=== PATIENT | female | born 1955 | race Caucasian/White ===

== ENCOUNTER → 2016-11-12 | Day surgery (SDC) | payer OTHER ==
[2016-11-10 14:34] VITALS: BMI 46.0
[~2016-11-12] VITALS: Ht 162.6 cm; Wt 122.7 kg
[~2016-11-12] MED LIST: AMLO-114 PO; ASPEC81 PO; ATOR-24 PO; ATOR-26 PO; CIPR-255 PO; CLR10 PO; GLC/500 PO; LIDOCAINE HCL 2% 2 ML VIAL (20MG/ML) ONE; LOSA50TA6 PO; LPR25 PO; OXYC-57 PO; PLV75 PO; PROPOFOL IV EMULSION 10 MG/ML 20 ML VIAL IV ONE; SODIUM CHLORIDE 0.9% 500ML 500 ML IV ONE
[2016-11-12 09:31] VITALS: Ht 162.6 cm; Wt 122.7 kg
--- NOTE | 2016-11-12 09:57 | Endo History and Physical ---
History & Physical Date of Service: Nov 12, 2016. Chief Complaint: SCREENING Referring Physician: DR. MELLO History of Present Illness screening Past Surgical History Hx Cardiac Surgery: No Hx Internal Defibrillator: No Hx Pacemaker: No Hx Abdominal Surgery: Yes (OVARIAN TUMOR AND FALLOPIAN TUBE REMOVED (BENIGN)) Hx of Implantable Prosthesis: No Hx Post-Op Nausea and Vomiting: No Hx Cancer Surgery: No Hx Thoracic Surgery: No Hx Orthopedic: No Hx Urinary Tract Surgery: No Social History Smoking Status: Never Smoker Hx Substance Use: No Hx Alcohol Use: Yes (OCCASIONALLY ON WEEKENDS) Allergies Coded Allergies: No Known Allergies (Unverified , 11/12/16) Current Medications Reported Home Medications Medications Dose Route/Sig Max Daily Dose Days Date Category Claritin (Loratadine) 10 Mg Tab 10 Mg PO QAM 11/10/16 Reported Lipitor (Atorvastatin Calcium) 40 Mg Tab 40 Mg PO QAM 11/10/16 Reported Cozaar (Losartan Potassium) 50 Mg Tab 50 Mg PO QAM 11/10/16 Reported Norvasc (Amlodipine Besylate) 10 Mg Tab 10 Mg PO QAM 11/10/16 Reported Glucophage (Metformin Hcl) 500 Mg Tab 2 Tab PO BID 11/10/16 Reported Vital Signs Weight (Kilograms): 122.73 Height (Feet): 5 Height (Inches): 4 Date Time Temp Pulse Resp B/P Pulse Ox O2 Delivery O2 Flow Rate FiO2 11/12/16 09:40 36.7 59 18 159/73 94 Room Air Physical Exam General Appearance: no apparent distress Respiratory/Chest: Auscultation: breath sounds normal Cardiovascular: Heart Auscultation: RRR Abdomen: Inspection & Palpation: soft Liver: non-tender Assessment and Plan stable for screening colonoscopy
--- NOTE | 2016-11-12 10:22 | Discharge Instructions ---
Endoscopy Patient Instructions Date / Procedure(s) Performed Nov 12, 2016. Colonoscopy Allergy Information Coded Allergies: No Known Allergies (Unverified , 11/12/16) Discharge Date / Findings Nov 12, 2016. colon polyps. Medication Instructions Stopped Medication(s): METFORMIN STOPPED THURSDAY Provider Instructions Activity Restrictions - No exercising or heavy lifting for 24 hours. - Do not drink alcohol the day of the procedure. - Do not drive a car or operate machinery until the day after the procedure. - Do not make any important decisions or sign important papers in 24 hours after the procedure. Following Day: - Return to full activity which may include returning to work/school. Diet Start your diet with liquids and light foods (jello, soup, juice, toast). Then eat your usual diet if not nauseated. Treatment For Common After Affects For mild abdominal pain, bloating, or excessive gas: - Rest - Eat lightly - Lie on right side Follow-Up Information Follow-up with DR. MELLO as scheduled Anesthesia Information What You Should Know You have had a procedure that required some medicine to reduce anxiety and discomfort. This treatment is called moderate sedation. After receiving the treatment, you may be sleepy, but you will be able to breathe on your own. The effects of the treatment may last for several hours. Follow these instructions along with Activity/Diet recommendations noted above: * Do NOT do anything where dizziness or clumsiness would be dangerous. * Rest quietly at home today, then you can be up and about tomorrow. * Have a responsible person stay with you the rest of today. * You may have had an I.V. today. If so, you may take the dressing off later today. Recommendations Call your doctor if: * Trouble breathing * Continuous vomiting for more than 24 hours * Temperature above 101 degrees * Severe abdominal pain or bloating * Pain not relieved by pain medicine ordered * There is increased drainage or redness from any incision * A large amount of rectal bleeding greater than 2-3 tablespoons. (If you had a polyp/s removed or have hemorrhoids, a small amount of blood - from the rectum is to be expected.) * You have any unanswered questions or concerns. IN THE EVENT OF A SERIOUS EMERGENCY, GO TO THE NEAREST EMERGENCY ROOM Your discharge instructions were prepared by provider Declan West. Patient Instructions Signature Page Nenita Fleming Patient (or Guardian) Signature/Date: I have read and understand the instructions given to me by my caregivers. Caregiver/RN/Doctor Signature/Date: The above-named patient and/or guardian has received patient instructions on this date. + Original Patient Signature Page (only) stays with chart. Please make copy for patient.
--- NOTE | 2016-11-12 10:37 | GI REPORT ---
Procedure Date: 11/12/2016 9:45 AM Procedure: Colonoscopy Indications: Screening for colorectal malignant neoplasm Medicines: See the Anesthesia note for documentation of the administered medications Complications: No immediate complications. Estimated Blood Loss: Estimated blood loss was minimal. Procedure: Pre-Anesthesia Assessment: - Prior to the procedure, a History and Physical was performed, and patient medications, allergies and sensitivities were reviewed. The patient's tolerance of previous anesthesia was reviewed. - The risks and benefits of the procedure and the sedation options and risks were discussed with the patient. All questions were answered and informed consent was obtained. - Patient identification and proposed procedure were verified prior to the procedure by the physician and the nurse. The procedure was verified in the pre-procedure area. - Pre-procedure physical examination revealed no contraindications to sedation. - After reviewing the risks and benefits, the patient was deemed in satisfactory condition to undergo the procedure. After I obtained informed consent, the scope was passed under direct vision. Throughout the procedure, the patient's blood pressure, pulse, and oxygen saturations were monitored continuously. The scope was introduced through the anus and advanced to the cecum, identified by appendiceal orifice and ileocecal valve. The colonoscopy was performed without difficulty. The patient tolerated the procedure well. The quality of the bowel preparation was good. Findings: The perianal and digital rectal examinations were normal. Two sessile polyps were found in the ascending colon. The polyps were 5 mm in size. These polyps were removed with a hot snare. Resection and retrieval were complete. Verification of patient identification for the specimen was done by the physician and nurse using the patient's name and medical record number. Estimated blood loss was minimal. A 10 mm polyp was found at 20 cm proximal to the anus. The polyp was semi-pedunculated. The polyp was removed with a hot snare. Resection and retrieval were complete. Verification of patient identification for the specimen was done by the physician and nurse using the patient's name and medical record number. Estimated blood loss: none. A few small-mouthed diverticula were found in the sigmoid colon. No additional abnormalities were found on retroflexion. Impression: - Two 5 mm polyps in the ascending colon, removed with a hot snare. Resected and retrieved. - One 10 mm polyp at 20 cm proximal to the anus, removed with a hot snare. Resected and retrieved. - Diverticulosis in the sigmoid colon. Recommendation: - Await pathology results. - Discharge patient to home. Declan West M.D. Declan West MD 11/12/2016 10:36:06 AM This report has been signed electronically. Note Initiated On: 11/12/2016 9:45 AM I attest to the content of the Intraoperative Record and orders documented therein, exceptions below
[2016-11-12 11:00] VITALS: BP 167/80; PULSE 63; O2SAT 93
--- NOTE | 2016-11-12 11:06 | Anesthesiology Progress Note ---
Anesthesia Post Op Note Date & Time Nov 12, 2016 at 11:05 Vital Signs Pain Intensity: 0 Vital Signs Past 12 Hours Date Time Temp Pulse Resp B/P Pulse Ox O2 Delivery O2 Flow Rate FiO2 11/12/16 11:00 63 18 167/80 93 Room Air 11/12/16 10:35 57 18 139/82 93 Room Air 11/12/16 10:20 65 16 134/66 95 Room Air 11/12/16 09:40 36.7 59 18 159/73 94 Room Air Notes Mental Status: alert / awake / arousable, participated in evaluation Pt Amnestic to Procedure: Yes Nausea / Vomiting: adequately controlled Pain: adequately controlled Airway Patency, RR, SpO2: stable & adequate BP & HR: stable & adequate Hydration State: stable & adequate Anesthetic Complications: no major complications apparent
== END | disposition home or self-care (01) ==
LOC: C.GI 09:02
PROVIDERS: ATTEND Internal Medicine Gastroenterology
DX: Z12.11 Encounter for screening for malignant neoplasm of colon (principal); C18.2 Malignant neoplasm of ascending colon; K57.30 Diverticulosis of large intestine without perforation or abscess without bleeding; Z90.79 Acquired absence of other genital organ(s)

== ENCOUNTER 2016-12-25 05:27 | Inpatient (IN) | payer OTHER ==
[2016-12-10 08:58] VITALS: BMI 48.0
--- NOTE | 2016-12-10 09:22 | PAT Medication Instructions ---
Service Date December 10, 2016. Current Home Medication List Amlodipine (Norvasc), 10 MG PO QAM Atorvastatin (Lipitor), 40 MG PO QAM Loratadine (Claritin), 10 MG PO QAM PRN for ALLERGIES Losartan Potassium (Cozaar), 50 MG PO QAM Metformin Hcl (Glucophage), 2 TAB PO QAM Medication Instructions For Your Scheduled Surgery - Hold the following medications 48 hours prior to surgery: Metformin Hcl (Glucophage), 2 TAB PO QAM - Hold the following medications the morning of surgery: Loratadine (Claritin), 10 MG PO QAM PRN for ALLERGIES Losartan Potassium (Cozaar), 50 MG PO QAM - Take the following medications the morning of surgery with a sip of water OTHERWISE NOTHING TO EAT OR DRINK AFTER MIDNIGHT: Amlodipine (Norvasc), 10 MG PO QAM Atorvastatin (Lipitor), 40 MG PO QAM If you have any questions please call us at [phone] or [phone] or [phone]
[2016-12-10 10:31] LABS: BASO % 0.1 %; BASO ABS # 0.01 K/uL (0-0.2); COMPLETE YES; EOS % 1.7 %; HEMATOCRIT 39.9 % (37-47); IG% 0.3 %; LYMPH % 24.2 %; LYMPH ABS # 1.83 K/uL (1.2-3.4); MEAN CELL VOLUME 87.3 fL (80-100); MEAN CORPUSCULAR HEMOGLOBIN 29.1 pg (25-34); MEAN CORPUSCULAR HGB CONC 33.3 g/dl (32-36); MEAN PLATELET VOLUME 10.2 fL (7.4-10.4); NEUT % 69.7 %; PLATELET COUNT 245 K/uL (130-400); RED BLOOD COUNT 4.57 M/uL (4.2-5.4); WHITE BLOOD COUNT 7.56 K/uL (4.8-10.8)
[2016-12-10 11:22] LABS: BUN/CREATININE RATIO 20.9 (10-20); CREATININE 0.65 mg/dl (0.60-1.20); POTASSIUM 4.1 mmol/L (3.5-5.1)
[2016-12-10 11:34] LABS: CALCIUM 9.4 mg/dl (8.5-10.1)
[~2016-12-25] VITALS: Ht 162.6 cm; Wt 120.0 kg
[2016-12-25] VITALS (25 sets, daily range): BP systolic 131–185; BP diastolic 55–96; PULSE 61–86; TEMP 36.5–36.9; O2SAT 88–95; BMI 48.0
[~2016-12-25 05:27] MED LIST changes: -ASPEC81 PO; -ATOR-26 PO; -CIPR-255 PO; -LIDOCAINE HCL 2% 2 ML VIAL (20MG/ML) ONE; -LPR25 PO; -OXYC-57 PO; -PLV75 PO; -PROPOFOL IV EMULSION 10 MG/ML 20 ML VIAL IV ONE; -SODIUM CHLORIDE 0.9% 500ML 500 ML IV ONE
[2016-12-25] MEDS ORDERED: LACTATED RINGER'S 1000ML 1,000 ML IV SCH (06:00)
--- NOTE | 2016-12-25 06:36 | History & Physical Bridge Note ---
H&P Re-Evaluation Bridge Note: I have examined the patient, reviewed the History & Physical and in the interval since the performance of the History & Physical I have noted the following changes of clinical significance: No changes noted at bedside all questions answered
[2016-12-25] MEDS ORDERED: NEOSTIGMINE METHYLSULFATE 5 MG/5 ML SYR ONE (06:40)
[2016-12-25] MEDS ORDERED: GLYCOPYRROLATE INJ 0.2 MG/ML VIAL ONE ×2 (06:40→08:24)
[2016-12-25] MEDS ORDERED: PROPOFOL IV EMULSION 10 MG/ML 20 ML VIAL IV ONE (06:40)
[2016-12-25] MEDS ORDERED: DEXAMETHASONE SOD INJ 4 MG/ML VIAL ONE (06:40)
[2016-12-25] MEDS ORDERED: FENTANYL CITRATE INJ 50 MCG/1 ML 2 ML VIAL ONE ×2 (06:40→08:01)
[2016-12-25] MEDS ORDERED: ROCURONIUM BROMIDE 10 MG/ML 5 ML VIAL ONE ×2 (06:40→08:24)
[2016-12-25] MEDS ORDERED: LIDOCAINE HCL 2% 2 ML VIAL (20MG/ML) ONE (06:40)
[2016-12-25] MEDS ORDERED: ONDANSETRON INJ 2 MG/ML 2 ML VIAL ONE ×2 (06:40→10:17)
[2016-12-25] MEDS ORDERED: MIDAZOLAM HCL 1 MG/ML 2ML VIAL ONE ×2 (06:40→06:46)
[2016-12-25] MEDS ORDERED: BUPIVACAINE 0.5 % 5 MG/1 ML MPF 30ML VIAL ONE (06:52)
[2016-12-25] MEDS ORDERED: CEFOXITIN SOD 1 GM VIAL ONE (07:42)
[2016-12-25] MEDS ORDERED: LACTATED RINGER'S 1000ML 1,000 ML IV PRN (07:47)
[2016-12-25] MEDS ORDERED: SODIUM CHLORIDE 0.9% 1000ML 1,000 ML IV PRN (07:50)
[2016-12-25] MEDS ORDERED: LACTATED RINGER'S 1000ML 500 ML IV PRN (07:50)
[2016-12-25] MEDS ORDERED: DiphenhydrAMINE HCL 50 MG/ML VIAL IV PRN (08:00)
[2016-12-25] MEDS ORDERED: NO NARCOTICS OR SEDATIVES SCH (08:00)
[2016-12-25] MEDS ORDERED: NALBUPHINE HCL INJ 10 MG/ML AMP IV PRN (08:00)
[2016-12-25] MEDS ORDERED: FENTANYL CITRATE INJ 50 MCG/1 ML 2 ML VIAL IV PRN (08:00)
[2016-12-25] MEDS ORDERED: MoRPHine SULFATE 2 MG/ML CARP IV PRN (08:00)
[2016-12-25] MEDS ORDERED: NALOXONE HCL INJ 0.4 MG/1 ML VIAL/CARP IV PRN (08:00)
[2016-12-25] MEDS ORDERED: HYDROmorphone INJ 1 MG/ML SYR IV PRN ×4 (08:00→16:30)
[2016-12-25] MEDS ORDERED: ONDANSETRON INJ 2 MG/ML 2 ML VIAL IV PRN ×2 (08:00)
[2016-12-25] MEDS ORDERED: EpHEDrine SULFATE INJ 50 MG/ML AMP IV PRN (08:00)
[2016-12-25] MEDS ORDERED: BUPIVACAINE 0.25% 30 ML VIAL ONE (08:08)
[2016-12-25] MEDS ORDERED: SODIUM CHLORIDE 0.9% INJ 10 ML VIAL ONE (08:08)
[2016-12-25] MEDS ORDERED: SUCCINYLCHOLINE CHLORIDE 20 MG/ML 10 ML VIAL IV ONE (08:24)
[2016-12-25] MEDS ORDERED: DEXTROSE 50% 50 ML SYR IV PRN (10:45)
[2016-12-25] MEDS ORDERED: GLUCAGON FOR INJ 1 MG VIAL SQ PRN (10:45)
[2016-12-25] MEDS ORDERED: GLUCOSE 10 TABS/TUBE PO PRN (10:45)
[2016-12-25] MEDS ORDERED: GLUCOSE 40% GEL 15 GM TUBE PO PRN (10:45)
--- NOTE | 2016-12-25 10:48 | [facility] Post Operative Brief Note ---
Immediate Operative Summary Operative Date Dec 25, 2016. Pre-Operative Diagnosis Colon Carcinoma Post-Operative Diagnosis Colon Carcinoma dense abdominal adhesions Procedure(s) Performed Laprascopic lysis of dense abdominal adhesions,(karen 1/3 of op time) open sigmoid colon resection Surgeon Dr. Núñez Industrial Engineering Technician Surgeon(s) Mode Stanford Estimated Blood Loss 150 ml Findings dense abdominal adhesions resected tattooed area and grossly by pathologist consistent with polypectomy site Specimens Permanent Specimen A: Omentum Drains 19 claudia per stab cul de sac, 5/8 inch mesfin sub cut
[2016-12-25] MEDS: FENTANYL 2.5MCG/ML BUPIV 0.0625% 100ML BAG EPI PRN ×2 (11:00→12:19)
--- NOTE | 2016-12-25 11:16 | OPERATIVE REPORT ---
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 POSTOPERATIVE DIAGNOSIS: Same with dense abdominal adhesions. PROCEDURE: Laparoscopy, lysis of dense abdominal adhesions, approximately 1/3 of the operative time, sigmoid colon resection with primary side-to-end anastomosis. SURGEON: Dr. Núñez. NITRO MAN: Lawson Aburto PA-C. OPERATION AND FINDINGS: SUMMARY: The patient was brought into the operating room theater. The abdomen was prepped with Betadine scrubbing solution and properly draped. Woody catheter had been inserted. We made a small incision supraumbilically sufficient enough to place a Veress needle followed by a 5 mm trocar. At this point, we inspected the area when we got into the belly and were met with significant adhesions to the anterior abdominal wall. These were mostly omental adhesions. There were a few areas that we could work our way through fine adhesions. Finally we were able to place two 5 mm right flank, right lower quadrant, right upper quadrant ports and a 5 mm left lower quadrant port and maneuvered and freed all these adhesions were mostly omental adhesions to the anterior abdominal wall, also significantly down the pelvis. Once we had freed this up, we could see a significant epiploica of the sigmoid colon attached to the area just as described by Dr. West about 20 cm at the pelvic brim. I felt we had enough mobility in this area to do a primary anastomosis by taking down the white line of Toldt on the left side sufficient enough. At this point, I elected to just go ahead and do an open procedure through a midline incision due to the significant adhesions that were still plastered down in the pelvic area. Once we entered a Bookwalter was inserted. We took down the omental adhesion, checked the anterior abdominal wall where we had been before. The omentum itself a few areas where we ligated with 2-0 silk some minor bleeders. We packed off the small intestine, identified the sigmoid colon, again incising the white line of Toldt sufficient enough that we had enough mobility of the descending colon. We then divided that area right at the distal descending colon with a ISAAC stapler and followed and scored the mesentery went down to the inferior mesenteric artery where we pretty much took it off the takeoff of the aorta, doubly ligating with 2-0 silk suture. Dissection distally was in Waldeyer's fascia. We took out both, incised peritoneum both laterally on both areas, identified the left ureter without any problem. We were well away from the right ureter. We took our distal dissection, it involved the tattooed area right at the peritoneal reflection, so we were well away from the line of tattooed that was 20 cm. At this point, we divided the mesentery to the distal sigmoid rectal area and ligated with 2-0 silk. I removed the specimen, I opened it, I could see the tattooed area, there was obviously no residual polyp, but there may have been an area that was felt to be compatible with the line. I wanted to make sure, I sent it to the pathologist and they palpated that area consisting with some induration. There were no other tattooed areas. At this point, the proximal staple line was oversewn with 3-0 silk suture. I did a side to end anastomosis with 3-0 silk outer layer, 3-0 chromic inner layer that could accommodate a thumb size at the end of procedure with patency. We irrigated the pelvic area, placed a #19 Nico through one of the stab wounds in the right side and positioned in the abdomen. I positioned the NG tube in about 55 cm in the stomach. The abdomen was then closed with #1 PDS [id number] suture, also a buried retention suture #2 Vicryl. Subcutaneous tissue which was about 4-5 inches deep was drained with a 5/8" Juan Daniel drain and approximated loosely with 2-0 Dexon and ebony for skin edges. Dressing was applied. The patient tolerated the procedure was tolerated well by the patient. Estimated blood loss approximately 150 mL. The patient was taken to recovery room in good condition. I attest to the content of the Intraoperative Record and any orders documented therein. Any exceptions are noted below. [facility]
[2016-12-25 11:31] LABS: PROTHROMBIN TIME (PATIENT) 10.6 SECONDS (9.0-12.0)
--- NOTE | 2016-12-25 11:39 | Anesthesiology Progress Note ---
Anesthesia Post Op Note Date & Time Dec 25, 2016 at 11:38 Vital Signs Pain Intensity: 1 Vital Signs Past 12 Hours Date Time Temp Pulse Resp B/P (MAP) Pulse Ox O2 Delivery O2 Flow Rate FiO2 12/25/16 11:24 167/72 12/25/16 11:23 36.5 12/25/16 11:18 67 19 92 12/25/16 11:18 67 19 12/25/16 11:17 166/70 12/25/16 11:15 176/74 12/25/16 11:13 66 16 12/25/16 11:13 66 16 94 12/25/16 11:08 66 18 94 12/25/16 11:08 67 18 12/25/16 11:07 65 17 12/25/16 11:07 65 17 174/78 94 12/25/16 11:04 164/80 12/25/16 11:02 66 18 12/25/16 11:02 66 18 93 12/25/16 11:00 Nasal Cannula 4 12/25/16 10:50 70 16 160/85 94 Mask 10 12/25/16 10:42 36.1 75 16 166/81 96 Mask 10 12/25/16 05:51 36.7 61 18 155/67 92 Room Air Notes Mental Status: alert / awake / arousable, participated in evaluation Pt Amnestic to Procedure: Yes Nausea / Vomiting: adequately controlled Pain: adequately controlled Airway Patency, RR, SpO2: stable & adequate BP & HR: stable & adequate Hydration State: stable & adequate Anesthetic Complications: no major complications apparent Pt doing very well. Only complaint is sore throat. No abdominal pain, so epidural seems to be working well.
[2016-12-25] MEDS ORDERED: INSULIN ASPART 100 UNITS/ML 3 ML PEN SC SCH (12:00)
[2016-12-25] MEDS ORDERED: NURSING VERBAL MED ORDER ONE ×3 (13:00→14:45)
[2016-12-25] MEDS ORDERED: NALOXONE HCL 0.4 MG/1 ML VIAL/CARP IV ONE (13:00)
[2016-12-25 13:07] LABS: HEMATOCRIT 41.9 % (37-47); MEAN CELL VOLUME 88.6 fL (80-100); MEAN CORPUSCULAR HEMOGLOBIN 29.8 pg (25-34); MEAN PLATELET VOLUME 9.9 fL (7.4-10.4); PLATELET COUNT 256 K/uL (130-400); RED BLOOD COUNT 4.73 M/uL (4.2-5.4); WHITE BLOOD COUNT 15.05 K/uL (4.8-10.8)
[2016-12-25] MEDS: SODIUM CHLORIDE 0.9% 1000ML 1,000 ML IV SCH ×2 (13:15→22:39)
[2016-12-25 13:16] LABS: MEAN CORPUSCULAR HGB CONC 33.7 g/dl (32-36)
--- NOTE | 2016-12-25 13:28 | DIAGNOSTIC IMAGING REPORT ---
CT OF THE HEAD WITHOUT CONTRAST CLINICAL HISTORY: Stroke alert. COMPARISON STUDY: Head CT January 01, 2016. TECHNIQUE: Helical axial images of the head were obtained without IV contrast. Automated exposure control was utilized for the study. FINDINGS: This exam is mildly compromised by motion artifact. No acute intracranial hemorrhage, midline shift or mass effect is present. A 1.1 cm hypodensity within the right centrum semiovale is noted. Basilar cisterns are patent. There are no extra axial collections. There is extensive intracranial vascular calcification. There are no CT findings to suggest acute dural sinus thrombosis or acute territorial infarct. Nasogastric tube is incidentally noted. There are no significant calvarial abnormalities. IMPRESSION: 1. No acute intracranial hemorrhage or mass effect. 2. 1.1 cm hypodensity within the right centrum semiovale. Although age indeterminate, this is likely subacute to chronic. 3. Study mildly compromised by motion artifact. Electronically signed by: Geraldo Domínguez M.D. 12/25/2016 1:27 PM Dictated Date/Time: 12/25/2016 1:23 PM
--- NOTE | 2016-12-25 13:31 | Medical Consult ---
Consultation Note Date of Service Dec 25, 2016. Consultation Note DATE OF ADMISSION : 12/25/16 DATE OF CONSULT: 12/25/16 REASON FOR CONSULT: Post operative left sided numbness/weakness / Stroke alert HPI This is a 61 year old F with history of adenocarcinoma of sigmoid colon polyp, HTN, DM-2, Dyslipidemia, was admitted under surgical service for elective colon resection. She underwent Laparoscopy with lysis of dense adhesions, resection of sigmoid colon with primary side-end resection by Dr Núñez today. During post operative evaluation, RN noted left sided numbness- facial/upper and lower extremities. Code purple/stroke alert was called with worsening of symptoms. We were consulted at this point for further evaluation for stroke. ICU team present by bedside. Patient lethargic, disoriented, following simple commands. Able to move right side, but no movement on left side. NIH stroke scale - 17. Patient does have prior hx of TIA per records, but not on Aspirin prior to admission. Recent outpatient notes- 10/27/16 reviewed- no mention of TIA or stroke in past. Per stroke protocol- stat CT head, Blood work- CBC, CMP ordered and patient will be transferred to ICU. Not a TPA candidate as post operative status. PAST MEDICAL /SURGICAL HISTORY: 1. HTN 2. DM-2, NIDDM 3. Dyslipidemia 4. Hx of TIA 5. Morbid obesity 6. Ovarian tumor removal - benign FAMILY HISTORY Non contributory SOCIAL HISTORY No history of alcohol abuse, smoking ALLERGIES Bee venom- Edema Lisinopril - Cough MEDICATIONS: Atorvastatin 40 mg, Losartan 50 mg, Metformin 1000 mg bid, Loratadine 10 mg , Amlodipine 10 mg ROS: Limited and unable to do full review of systems as patient going through stroke evaluation PHYSICAL EXAMINATION AZALEA;S: Reviewed GENERAL: Drowsy, follows simple commands, Morbidly obese HEENT: Mild facial droop, left sided NECK: Short neck Lungs: AEBE decreased, no wheezing Heart: s1 s2 normal Abdomen: S/P Surgery Neurological: Drowsy, follows simple commands- Left side - face/UE/LE- decreased sensation, Power- 0/5, Left sided facial droop LABS: Pre operative 12/10/16- reviewed ASSESSMENT AND PLAN: ACUTE STROKE VS TIA Post operative status. S/P Laparoscopic lysis of dense adhesions, sigmoid colon resection for side - end anastomosis by Dr Ramos. Stroke alert was called as RN noted left sided numbness during post operative evaluation--> progressed to left sided motor weakness. -NIH Stroke scale- 17. Not a TPA candidate due to post operative status -Per stroke protocol- Stat CT scan ordered. CBC, CMP, EKG ordered. -Will follow up results- May need to consider transfer to [facility] to consider endo vascular intervention as not a TPA candidate -Pre operative risk factors noted- Hx of TIA, HTN, DM, Dyslipidemia, Morbid obesity. Not on Aspirin prior to admission, unclear of the reasons. HTN- Permissive hypertension with acute stroke -Hold home - amlodipine, losartan DM-2, NIDDM -Hold metformin -ISS, Accuchecks DYSLIPIDEMIA -On atorvastatin 40 mg- continue after speech evaluation MORBID OBESITY DVT PROPHYLAXIS Post operative status DISPOSITION Transfer to ICU stat and may consider transfer to [facility] for endovascular intervention for stroke according to Imaging results. Discussed with Director Of Sales And Marketing, [employer] Machine Setter by bedside,.
--- NOTE | 2016-12-25 13:31 | DIAGNOSTIC IMAGING REPORT ---
CT NECK ANGIO WITH CONTRAST CLINICAL HISTORY: ACUTE STROKE COMPARISON STUDY: No previous studies for comparison. TECHNIQUE: CT angiography was performed from the aortic arch to the skull base. MIP imaging was performed. The patient was scanned in a dynamic helical fashion during intravenous administration of 118 cc of Optiray 320. CT DOSE: 2386.21 mGy.cm Technique: CT angiogram of the carotid and vertebral arteries was obtained using intravenous contrast and 3-D reconstruction. NASCET criteria was utilized. Findings: There is indwelling nasogastric tube. The visualized portions lung apices reveal dependent airspace opacities, possibly atelectatic. There is no evidence of common carotid artery stenosis. There is no evidence of hemodynamic significant stenosis the level of the carotid bifurcation. There is moderate to severe multifocal narrowing of the high cervical internal carotid and carotid siphon and cavernous carotid. There is no evidence of common carotid artery stenosis. There is no evidence of bifurcation stenosis. There are mild to moderate atheromatous changes at the level of the left cavernous carotid. There is a severe stenosis of the distal right vertebral. There is a moderate to severe stenosis of the distal left vertebral. There is no evidence of hemodynamically significant basilar artery stenosis. IMPRESSION: 1. No evidence of carotid bifurcation stenosis 2. Moderate to severe multifocal narrowing of the high cervical right internal carotid and right carotid siphon right cavernous carotid 3. Mild to moderate atheromatous narrowing of the left cavernous carotid 4. Severe stenosis of the distal right vertebral. Moderate to severe stenosis of the distal left vertebral. Electronically signed by: David Pittman M.D. 12/25/2016 1:30 PM Dictated Date/Time: 12/25/2016 1:22 PM
[2016-12-25 13:46] LABS: BUN/CREATININE RATIO 13.1 (10-20); CALCIUM 8.5 mg/dl (8.5-10.1); CREATININE 0.81 mg/dl (0.60-1.20)
[2016-12-25 13:54] LABS: POTASSIUM 3.9 mmol/L (3.5-5.1)
[2016-12-25 13:55] LABS: MAGNESIUM 2.3 mg/dl (1.8-2.4); PHOSPHORUS 4.1 mg/dl (2.5-4.9)
[2016-12-25] MEDS: CEFOXITIN IV 2,000 MG in DEXTROSE 5% 50ML 50 ML IV SCH ×2 (14:00→20:07)
--- NOTE | 2016-12-25 14:22 | DIAGNOSTIC IMAGING REPORT ---
CTA ANGIOGRAPHY OF THE HEAD CLINICAL HISTORY: STROKE ALERT COMPARISON STUDY: Head CT January 01, 2016. TECHNIQUE: Helical axial images of the head were obtained following uneventful intravenous administration of 118 cc of Optiray 320. FINDINGS: No acute intracranial hemorrhage, midline shift or mass effect is present. Ventricular system is unremarkable. There is severe stenosis of the petrous and cavernous portion of the right internal carotid artery with extensive plaque. There is occlusion of the supraclinoid right ICA with distal reconstitution. The right MCA and anterior cerebral arteries are patent. No additional sites of vessel occlusion are present. There is severe stenosis of the proximal intracranial portion of the right vertebral artery and moderate stenosis of the proximal intracranial portion of the left vertebral artery. No aneurysm is identified. Posterior circulation is otherwise intact. IMPRESSION: 1. Short segment occlusion of the supraclinoid right ICA with distal reconstitution. This occlusion is age indeterminate although favor a chronic finding. Diminutive petrous and cavernous portions of the right internal carotid artery with multifocal severe stenosis which suggests a chronic finding. 2. Severe stenosis of the proximal intracranial portion of the right vertebral artery with moderate stenosis of the proximal intracranial of the left vertebral artery. Electronically signed by: Geraldo Domínguez M.D. 12/25/2016 2:20 PM Dictated Date/Time: 12/25/2016 1:40 PM
--- NOTE | 2016-12-25 16:10 | Progress Note ---
Progress Note Date of Service Dec 25, 2016. Progress Note POD # 0 from open sigmoid colectomy by Dr. Núñez. I received a call from a PACU nurse just after the pt had arrived on the floor from the PACU. She told me that the floor nurse noted the pt to have numbness of her L leg. I told her that this was to be expected since the pt had a low thoracic epidural placed pre -op and dosed at the end of the case for post-op analgesia. I told her to have the floor nurse call me if she had further concerns. I then received a call several minutes later from the floor nurse. She told me that the pt was having numbness and weakness of her L arm and leg and numbness of the L side of her face. I told her that if this was the case, she needed to call a Stroke Alert right away and that I would be up AILYN. Of note, the pt had a TIA in 12/2015 which presented w/ L-sided symptoms. At that time, she was started on a statin and anti-hypertensive agent but no anti-platelet agent. Also of note, the pt was a little groggy in PACU but I noted no facial droop and the pt was moving all 4 extremities per PACU nurse. I immediately went to see the pt and noted her to be groggy but responsive and following commands. She had a L facial droop and no motor function of her L arm or leg. I immediately told the nurse to call a Stroke Alert. They did, as well as a Code Purple which they said had to be called as well. The pt's said that this was similar to her TIA a year ago. I gave report to the radiator mechanic and neurologist when they arrived, as well as to Dr. Núñez's PA. They were sending her for a stat non- contrast head CT and a CTA. After that was completed, I went to see the pt in the ICU. She was awake and alert, with her . They said that her symptoms resolved by the time she got to the CT scanner. I found her to no longer have a facial droop and to have normal motor function in all 4 extremities. She was then going to be sent for MRI. I unfortunately had to remove her epidural catheter because I don't know if it's MRI compatible (there is no mention of MRI compatibility on the packaging but it does have some metal component to increase its rigidity), and because she may be receiving some anti-platelet agent or anticoagulant at some point soon. She had zero abdominal pain when I removed it with the tip intact.
[2016-12-25] MEDS: ACETAMINOPHEN IV 100 ML IV PRN (16:40)
--- NOTE | 2016-12-25 17:13 | DIAGNOSTIC IMAGING REPORT ---
ORBIT RADIOGRAPHS 3 VIEWS HISTORY: Pre-MRI pre-MRI screening. COMPARISON: None. FINDINGS: There are no radiopaque foreign bodies identified within the orbits. IMPRESSION: No radiopaque foreign bodies identified within the orbits. Electronically signed by: Brenton Jeffrey M.D. 12/25/2016 5:12 PM Dictated Date/Time: 12/25/2016 5:10 PM
--- NOTE | 2016-12-25 18:01 | DIAGNOSTIC IMAGING REPORT ---
Brain MRI WITHOUT CONTRAST HISTORY: Mental status change stroke symptoms. TECHNIQUE: Multiplanar multisequence MRI of the brain was performed without the use of contrast. COMPARISON STUDY: CT of the brain same date. CT brain angiography same date. FINDINGS: No evidence for acute infarction based on diffusion-weighted images. 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 Moderate chronic small vessel change involving the periventricular and deep white matter regions. Internal artery canals are symmetric. Sella and parasellar region is unremarkable. IMPRESSION: 1. No evidence for an acute ischemic insult. 2. At least one old periventricular infarct with moderate chronic small vessel change throughout both cerebral hemispheres. Electronically signed by: Brenton Jeffrey M.D. 12/25/2016 6:00 PM Dictated Date/Time: 12/25/2016 5:57 PM
[2016-12-25] MEDS: INSULIN ASPART 100 UNITS/ML 3 ML PEN SC SCH (18:47)
[2016-12-25] MEDS ORDERED: LABETALOL HCL IV 5 MG/ML 20ML IV STA ×3 (19:26→22:35)
--- NOTE | 2016-12-25 19:36 | Critical Care Consultation ---
Critical Care Consultation Date of Consultation: Dec 25, 2016. Attending Physician: Terrence Núñez M.D. Reason for Consultation: Acute neuro deficits status post hemicolectomy secondary to colon cancer History of Present Illness Patient is a 61-year-old female who underwent a sigmoid colon resection with primary signs and anastomosis with Dr. Delgado. She has a significant past medical history for TIAs most recently back in 2016, hypertension, non-insulin- dependent diabetes mellitus, dyslipidemia, morbid obesity, ovarian tumor removal (benign). Upon arrival in the medical surgical floor the patient was noted to have a acute facial droop, and left upper extremity and lower extremity flaccid paralysis as well as difficulty speaking. A code purple was called and they presented to the patient's bedside. Initial stroke score was 15 , she would not be a candidate for systemic TPA given her recent major surgery. At that time she had flaccid paralysis of the left upper and lower extremities , dysarthria, complete extinction. She was taken for an emergent noncontrasted scan of the head which did not reveal acute hemorrhage. She underwent a CTA of the head and neck, which were reviewed with radiology. She has a significant on the right vertebral artery as well as the right carotid artery. An MRI was undertaken finding of which did not reveal any acute ischemic injury. Approximately 30 minutes after onset of the patient's neuro symptoms had completely resolved. Additional history from the patient's reports that she's had 2 similar episodes where she apparently had a very dense focal neuro deficit of the left side which resolved spontaneously. I reviewed the operative notes, the patient had a rather uneventful course and appeared to not become hypotensive while in the operating room. Upon my arrival in the medical surgical floor the patient's blood pressure was 140 systolic and she was not profoundly hypotensive. When I arrived back in the NICU and the patient's neuro deficits had resolved her systolic blood pressure was in the 180s. Prior to the patient's MRI she had her epidural catheter removed by anesthesia. Past Medical/Surgical History Please see above Family History Patient reports no known family medical history. Social History Smoking Status: Never Smoker Marital Status: Housing Status: lives with family Occupation Status: employed Allergies Coded Allergies: BEE STING (Verified Allergy, Unknown, SWELLING - LOCALIZED AT STING AREA, 12/25/16) NO KNOWN DRUG ALLERGIES (Verified Allergy, Unknown, , 12/25/16) Home Medications Scheduled Amlodipine (Norvasc), 10 MG PO QAM Atorvastatin (Lipitor), 40 MG PO QAM Losartan Potassium (Cozaar), 50 MG PO QAM Metformin Hcl (Glucophage), 2 TAB PO QAM Scheduled PRN Loratadine (Claritin), 10 MG PO QAM PRN for ALLERGIES Current Inpatient Medications Current Inpatient Medications Medications (Trade) Dose Ordered Sig/Naila Route Start Time Stop Time Status Last Admin Dose Admin Sodium Chloride 1,000 ml @ 150 mls/hr Q6H40M IV 12/25/16 12:30 01/24/17 10:36 12/25/16 13:15 150 MLS/HR Ondansetron HCl (Zofran Inj) 4 mg Q6H PRN IV 12/25/16 10:45 01/24/17 10:44 Future Hold Heparin Sodium (Porcine) (Heparin Sq 5000 Unit/0.5ml) 5,000 unit Q8@0600,1400,2200 SQ 12/25/16 20:00 01/24/17 19:59 Glucose (Glucose 40% Gel) 15-30 GRAMS 15 GRAMS... UD PRN PO 12/25/16 10:45 01/24/17 10:44 Glucose (Glucose Chew Tab) 4-8 Tablets 4 Tabl... UD PRN PO 12/25/16 10:45 01/24/17 10:44 Dextrose (Dextrose 50% 50ML Syringe) 25-50ML OF 50% DW IV FOR... UD PRN IV 12/25/16 10:45 01/24/17 10:44 Glucagon (Glucagon Inj) 1 mg UD PRN SQ 12/25/16 10:45 01/24/17 10:44 Pantoprazole Sodium 40 mg/ Syringe 10 ml @ 5 mls/min DAILY@11 IV 12/26/16 11:00 01/25/17 10:59 Cefoxitin Sodium 2000 mg/Dextrose 60 ml @ 100 mls/hr Q6H IV 12/25/16 14:00 12/26/16 02:35 12/25/16 14:00 100 MLS/HR Insulin Aspart (novoLOG ASPART) SLIDING SCALE If C... Q6 SC 12/25/16 18:00 01/24/17 17:59 12/25/16 18:47 2 UNITS Acetaminophen 100 ml @ 400 mls/hr Q8H PRN IV 12/25/16 16:30 01/24/17 16:29 12/25/16 16:40 400 MLS/HR Hydromorphone HCl (Dilaudid Inj) 0.5 mg Q6H PRN IV 12/25/16 16:30 01/08/17 16:29 12/25/16 18:52 0.5 MG Hydromorphone HCl (Dilaudid Inj) 1 mg Q6H PRN IV 12/25/16 16:30 01/08/17 16:29 Review of Systems Unable to obtain due to patient condition Physical Exam Date Time Temp Pulse Resp B/P (MAP) Pulse Ox O2 Delivery O2 Flow Rate FiO2 12/25/16 18:02 86 22 185/83 92 12/25/16 16:32 75 19 165/73 95 12/25/16 16:02 76 22 174/75 94 12/25/16 16:00 Mask 4.0 12/25/16 15:32 78 18 167/76 94 12/25/16 15:02 74 23 154/72 95 12/25/16 14:17 75 21 157/73 (101) 91 Nasal Cannula 4.0 12/25/16 14:02 75 22 160/72 (101) 91 Nasal Cannula 4.0 12/25/16 13:47 36.9 72 20 170/74 (106) 91 Nasal Cannula 4.0 12/25/16 13:32 75 19 142/55 (84) 92 Nasal Cannula 4.0 12/25/16 13:26 78 15 131/59 (83) 94 Nasal Cannula 4.0 12/25/16 13:21 36.5 68 16 95 3.0 12/25/16 12:20 95 Nasal Cannula 3.0 12/25/16 12:20 36.5 68 16 144/78 (100) 95 Nasal Cannula 3.0 12/25/16 11:57 155/74 12/25/16 11:56 67 15 94 12/25/16 11:56 67 15 12/25/16 11:55 69 20 93 12/25/16 11:55 69 20 12/25/16 11:53 133/59 12/25/16 11:50 68 18 93 12/25/16 11:50 68 18 12/25/16 11:48 154/63 12/25/16 11:45 68 21 93 12/25/16 11:45 67 21 12/25/16 11:42 145/64 12/25/16 11:40 67 19 90 12/25/16 11:40 68 19 12/25/16 11:38 146/63 12/25/16 11:35 68 17 12/25/16 11:35 69 17 92 12/25/16 11:33 161/62 12/25/16 11:30 68 18 12/25/16 11:30 68 18 92 12/25/16 11:28 160/65 12/25/16 11:25 68 16 12/25/16 11:25 65 16 90 12/25/16 11:24 167/72 12/25/16 11:23 36.5 12/25/16 11:18 67 19 92 12/25/16 11:18 67 19 12/25/16 11:17 166/70 12/25/16 11:15 176/74 12/25/16 11:13 66 16 12/25/16 11:13 66 16 94 12/25/16 11:08 66 18 94 12/25/16 11:08 67 18 12/25/16 11:07 65 17 12/25/16 11:07 65 17 174/78 94 12/25/16 11:04 164/80 12/25/16 11:02 66 18 12/25/16 11:02 66 18 93 12/25/16 11:00 Nasal Cannula 4 12/25/16 10:50 70 16 160/85 94 Mask 10 12/25/16 10:42 36.1 75 16 166/81 96 Mask 10 12/25/16 05:51 36.7 61 18 155/67 92 Room Air Head: normocephalic, atraumatic Eyes: sclerae normal Neck: supple Respiratory: breath sounds normal, clear to auscultation Cardiovasular: regular rate/rhythm, normal S1S2 Abdomen: other (surgical dressing intact, no shadowing) Genitourinary - Female: other Upper Extremities: other (flaccid paralysis of the left upper extremity) Lower Extremities: other (flaccid paralysis of the lower extremity) Neuro: alert, other (answering questions appropriately) Laboratory Results Last 24 Hours Test 12/25/16 05:48 6/8/17 06:10 12/25/16 10:55 12/25/16 11:12 Bedside Glucose 125 mg/dl 147 mg/dl Carcinoembryonic Antigen 0.5 ng/ml Prothrombin Time 10.6 SECONDS Prothromb Time International Ratio 1.0 Activated Partial Thromboplast Time 24.8 SECONDS Partial Thromboplastin Ratio 1.0 Test 12/25/16 12:25 12/25/16 12:52 12/25/16 12:55 12/25/16 18:03 White Blood Count 15.05 K/uL Red Blood Count 4.73 M/uL Hemoglobin 14.1 g/dL Hematocrit 41.9 % Mean Corpuscular Volume 88.6 fL Mean Corpuscular Hemoglobin 29.8 pg Mean Corpuscular Hemoglobin Concent 33.7 g/dl RDW Standard Deviation 44.0 fL RDW Coefficient of Variation 13.4 % Platelet Count 256 K/uL Mean Platelet Volume 9.9 fL Sodium Level 141 mmol/L Potassium Level 3.9 mmol/L Chloride Level 106 mmol/L Carbon Dioxide Level 25 mmol/L Anion Gap 10.0 mmol/L Blood Urea Nitrogen 11 mg/dl Creatinine 0.81 mg/dl Est Creatinine Clear Calc Drug Dose 94.9 ml/min Estimated GFR () 90.2 Estimated GFR (Non- 77.8 BUN/Creatinine Ratio 13.1 Random Glucose 175 mg/dl Lactic Acid Level 1.0 mmol/L Calcium Level 8.5 mg/dl Phosphorus Level 4.1 mg/dl Magnesium Level 2.3 mg/dl Total Bilirubin 0.7 mg/dl Aspartate Amino Transf (AST/SGOT) 17 U/L Alanine Aminotransferase (ALT/SGPT) 27 U/L Alkaline Phosphatase 98 U/L Total Protein 7.8 gm/dl Albumin 3.8 gm/dl Globulin 4.0 gm/dl Albumin/Globulin Ratio 1.0 Bedside Glucose 159 mg/dl 198 mg/dl Diagnostic Results I have reviewed the radiology reports for the CT head, CTA of the head and neck , brain MRI, and orbit radiograph. Assessment & Plan (1) Internal carotid artery stenosis (2) Intracranial carotid stenosis, bilateral (3) Vertebral artery stenosis, symptomatic, without infarction (4) TIA (transient ischemic attack) (5) Hypertension (6) Colon polyp Reason Critically Ill: Possible acute CVA which would require intravascular clot retrieval PLAN: Neuro: Allow permissive hypertension, in setting of having a normal MRI I would keep blood pressures between 140-160 to decrease incidence of bleeding across to anastomose E site Resp: Stable CV: Hypertension this will need to be followed up with as an outpatient, at this point labetalol when necessary Fluids/Renal: Normal saline 150 an hour ID: Cefoxitin's preoperative antibiotics. We will stop after 3 doses GI/Nutrition: Nothing by mouth Heme: Stable Endocrine: Will require mild insulin coverage I have personally spent 50 minutes of critical care time in the direct management of this patient. This is a life/limb threatening event. This includes time spent evaluating patient, direct bedside care, chart review, placing orders, interpretation of diagnostic studies, discussion with consultants, patient, and family members, as well as other required patient management activities. This time is exclusive of all separately billable procedures, and teaching time and separate from and in addition to any other critical care service time.
[2016-12-25] MEDS: HEPARIN SOD 5000 UNIT/0.5 ML CARP SQ SCH (20:09)
[2016-12-26] VITALS (20 sets, daily range): BP systolic 109–177; BP diastolic 61–79; PULSE 62–81; TEMP 36.8–37.1; O2SAT 91–95; Ht 162.6 cm; Wt 120.0 kg
[2016-12-26] MEDS ORDERED: LABETALOL HCL IV 5 MG/ML 20ML IV STA (00:05)
[2016-12-26] MEDS: INSULIN ASPART 100 UNITS/ML 3 ML PEN SC SCH ×5 (00:34→23:48)
[2016-12-26] MEDS: LABETALOL HCL IV 5 MG/ML 20ML IV PRN ×2 (01:24→03:05)
[2016-12-26] MEDS: CEFOXITIN IV 2,000 MG in DEXTROSE 5% 50ML 50 ML IV SCH (02:01)
[2016-12-26] MEDS: ACETAMINOPHEN IV 100 ML IV PRN (02:24)
[2016-12-26 05:41] LABS: BASO % 0.1 %; BASO ABS # 0.01 K/uL (0-0.2); COMPLETE YES; HEMATOCRIT 38.9 % (37-47); IG% 0.3 %; LYMPH % 8.9 %; MEAN CELL VOLUME 88.8 fL (80-100); MEAN CORPUSCULAR HEMOGLOBIN 28.8 pg (25-34); MEAN CORPUSCULAR HGB CONC 32.4 g/dl (32-36); MEAN PLATELET VOLUME 9.6 fL (7.4-10.4); NEUT % 82.7 %; PLATELET COUNT 285 K/uL (130-400); RED BLOOD COUNT 4.38 M/uL (4.2-5.4)
[2016-12-26] MEDS: HEPARIN SOD 5000 UNIT/0.5 ML CARP SQ SCH (06:07)
[2016-12-26 06:22] LABS: BUN/CREATININE RATIO 13.2 (10-20); CALCIUM 8.1 mg/dl (8.5-10.1); CREATININE 0.63 mg/dl (0.60-1.20); MAGNESIUM 2.3 mg/dl (1.8-2.4); PHOSPHORUS 3.3 mg/dl (2.5-4.9); POTASSIUM 4.5 mmol/L (3.5-5.1)
[2016-12-26] MEDS: SODIUM CHLORIDE 0.9% 1000ML 1,000 ML IV SCH (06:24)
--- NOTE | 2016-12-26 07:22 | Critical Care Progress Note ---
Critical Care Progress Note Date of Service Dec 26, 2016. ICU Day ICU Day Number: [address] Subjective [place] well today, denied any pain. Reported numbness and weakness of L side have resolved. She reported it had previously happened last summer and also went away on its own. Reports overall her mouth feels dry. Objective GENERAL: Awake, alert, well-appearing, in no acute distress, wearing face mask. HENT: Normocephalic, atraumatic. Oropharynx unremarkable. NG tube present, with drainage present. EYES: Normal conjunctiva. Sclera non-icteric. RESPIRATORY: Clear to auscultation. CARDIAC: Regular rate, normal rhythm. Extremities warm and well perfused. Pulses equal. ABDOMEN: Soft, non-distended. No tenderness to palpation. No rebound or guarding. No masses. MUSCULOSKELETAL: Chest examination reveals no tenderness. LOWER EXTREMITIES: Calves are equal size bilaterally and non-tender. No edema. No discoloration. NEURO: Normal sensorium. No sensory or motor deficits noted. SKIN: No rash or jaundice noted. Current SOFA Score SOFA Score Response (Comments) Value Platelets (x10) > 150 0 Bilirubin (mg/dL) < 1.2 0 Daniele Coma Score 15 0 Level of Hypotension No Hypotension 0 Creatinine (mg/dL) < 1.2 0 Total 0 Assessment & Plan 61 yo F who is post-op day 1 colonic resection for Ca who had a TIA post- operatively. She was found to have internal carotid artery stenosis and vertebral artery stenosis. She remains in the ICU for monitoring, but may require transfer to tertiary care facility for intravascular clot retrieval. PROBLEM LIST: (1) Internal carotid artery stenosis (2) Intracranial carotid stenosis, bilateral (3) Vertebral artery stenosis, symptomatic, without infarction (4) TIA (transient ischemic attack) (5) Hypertension (6) Colon polyp NEURO: - Pain manageable, CAM negative - Needs outpatient Neuro follow up CVS: - SBP remaining between 140 and 160 (goal), with occasional doses of Labetalol - Restart home meds RENAL: - Currently on NS 150mL/hour, will change to Normosol 100mL/hour - Overall I&O balance: +1814mL ID: - Received Cefoxitin for preop abx, will finish 3 doses GI: - Remains NPO - Will place meds down NG tube today HEME: - Hb 12.6, and has been stable post op - Continue to monitor ENDO: - Goal BSG 140-180 DISPO: The patient is stable to be transferred to Med/Surg today. Please do not hesitate to contact us with any questions or concerns. Plan discussed with Dr Núñez. CODE STATUS: FULL Resident Physician Supervision Note: Dr. Knowles was resident physician during care of patient. I separately evaluated patient and did history and exam. I discussed the case with the resident and generally agree with the findings and plan. Patient hemodynamically stable, draining from [place] site, stable for downgrade. Documented By: Victor Hugo Lane DO Consults & Procedures Consultants: Dr Leone, [facility] Hospitalist Procedures: 12/25/16, Dr Núñez: Laparoscopy, lysis of dense abdominal adhesions, approximately 1/3 of the operative time, sigmoid colon resection with primary side-to-end anastomosis. Data Medications: Current Inpatient Medications Medications (Trade) Dose Ordered Sig/Naila Route Start Time Stop Time Status Last Admin Dose Admin Sodium Chloride 1,000 ml @ 150 mls/hr Q6H40M IV 12/25/16 12:30 01/24/17 10:36 12/26/16 06:24 150 MLS/HR Ondansetron HCl (Zofran Inj) 4 mg Q6H PRN IV 12/25/16 10:45 01/24/17 10:44 Future hold Heparin Sodium (Porcine) (Heparin Sq 5000 Unit/0.5ml) 5,000 unit Q8@0600,1400,2200 SQ 12/25/16 20:00 01/24/17 19:59 12/26/16 06:07 5,000 UNIT Glucose (Glucose 40% Gel) 15-30 GRAMS 15 GRAMS... UD PRN PO 12/25/16 10:45 01/24/17 10:44 Glucose (Glucose Chew Tab) 4-8 Tablets 4 Tabl... UD PRN PO 12/25/16 10:45 01/24/17 10:44 Dextrose (Dextrose 50% 50ML Syringe) 25-50ML OF 50% DW IV FOR... UD PRN IV 12/25/16 10:45 01/24/17 10:44 Glucagon (Glucagon Inj) 1 mg UD PRN SQ 12/25/16 10:45 01/24/17 10:44 Pantoprazole Sodium 40 mg/ Syringe 10 ml @ 5 mls/min DAILY@11 IV 12/26/16 11:00 01/25/17 10:59 Insulin Aspart (novoLOG ASPART) SLIDING SCALE If C... Q6 SC 12/25/16 18:00 01/24/17 17:59 12/26/16 06:07 1 UNITS Acetaminophen 100 ml @ 400 mls/hr Q8H PRN IV 12/25/16 16:30 01/24/17 16:29 12/26/16 02:24 400 MLS/HR Hydromorphone HCl (Dilaudid Inj) 0.5 mg Q6H PRN IV 12/25/16 16:30 01/08/17 16:29 12/25/16 18:52 0.5 MG Hydromorphone HCl (Dilaudid Inj) 1 mg Q6H PRN IV 12/25/16 16:30 01/08/17 16:29 Pneumococcal Polysaccharide Vaccine (Pneumovax-23 Inj) 25 mcg ONCE ONCE IM. 12/26/16 08:00 12/26/16 08:01 Labetalol HCl (Normodyne IV) 5 mg Q1H PRN IV 12/26/16 01:15 01/25/17 01:14 12/26/16 03:05 5 MG Vital Signs: Date Time Temp Pulse Resp B/P (MAP) Pulse Ox O2 Delivery O2 Flow Rate FiO2 12/26/16 06:00 64 19 159/64 (95) 94 Oxymask 4.0 12/26/16 05:32 65 15 163/67 (99) 91 Oxymask 4.0 12/26/16 05:00 63 18 148/72 (97) 94 Oxymask 4.0 12/26/16 04:30 63 23 153/63 (93) 95 Oxymask 4.0 12/26/16 04:00 4.0 12/26/16 04:00 36.8 81 21 159/66 (97) 94 Oxymask 4.0 12/26/16 03:30 63 17 156/70 (98) 95 Oxymask 4.0 12/26/16 03:00 67 22 167/71 (103) 94 12/26/16 02:30 64 13 168/73 (104) 94 12/26/16 02:00 37.0 64 17 162/66 (98) 91 12/26/16 01:30 62 21 157/65 (95) 94 12/26/16 01:00 66 16 167/64 (98) 94 Oxymask 4.0 12/26/16 00:30 64 17 146/62 (90) 93 Oxymask 4.0 12/26/16 00:00 36.9 70 26 177/79 (111) 92 Oxymask 4.0 12/26/16 00:00 4.0 12/25/16 23:30 70 17 161/73 (102) 92 4.0 12/25/16 23:00 68 20 131/56 (81) 93 Oxymask 4.0 12/25/16 22:30 69 23 173/73 (106) 93 Oxymask 4.0 12/25/16 22:00 68 25 168/71 (103) 93 Oxymask 4.0 12/25/16 21:30 67 27 143/70 (94) 91 Oxymask 4.0 12/25/16 21:00 71 18 178/76 (110) 92 Oxymask 4.0 12/25/16 20:30 68 25 174/78 (110) 92 Oxymask 4.0 12/25/16 20:14 76 24 169/96 (120) 93 Oxymask 4.0 12/25/16 20:00 4.0 12/25/16 20:00 36.8 81 21 157/65 (95) 94 Oxymask 4.0 12/25/16 19:30 80 15 180/81 (114) 93 12/25/16 19:21 78 18 181/84 (116) 88 12/25/16 19:00 77 17 183/83 (116) 93 12/25/16 18:02 86 22 185/83 92 12/25/16 16:32 75 19 165/73 95 12/25/16 16:02 76 22 174/75 94 12/25/16 16:00 Mask 4.0 12/25/16 15:32 78 18 167/76 94 12/25/16 15:02 74 23 154/72 95 12/25/16 14:17 75 21 157/73 (101) 91 Nasal Cannula 4.0 12/25/16 14:02 75 22 160/72 (101) 91 Nasal Cannula 4.0 12/25/16 13:47 36.9 72 20 170/74 (106) 91 Nasal Cannula 4.0 12/25/16 13:32 75 19 142/55 (84) 92 Nasal Cannula 4.0 12/25/16 13:26 78 15 131/59 (83) 94 Nasal Cannula 4.0 12/25/16 13:21 36.5 68 16 95 3.0 12/25/16 12:20 95 Nasal Cannula 3.0 12/25/16 12:20 36.5 68 16 144/78 (100) 95 Nasal Cannula 3.0 12/25/16 11:57 155/74 12/25/16 11:56 67 15 94 12/25/16 11:56 67 15 12/25/16 11:55 69 20 93 12/25/16 11:55 69 20 12/25/16 11:53 133/59 12/25/16 11:50 68 18 93 12/25/16 11:50 68 18 12/25/16 11:48 154/63 12/25/16 11:45 68 21 93 12/25/16 11:45 67 21 12/25/16 11:42 145/64 12/25/16 11:40 67 19 90 12/25/16 11:40 68 19 12/25/16 11:38 146/63 12/25/16 11:35 68 17 12/25/16 11:35 69 17 92 12/25/16 11:33 161/62 12/25/16 11:30 68 18 12/25/16 11:30 68 18 92 12/25/16 11:28 160/65 12/25/16 11:25 68 16 12/25/16 11:25 65 16 90 12/25/16 11:24 167/72 12/25/16 11:23 36.5 12/25/16 11:18 67 19 92 12/25/16 11:18 67 19 12/25/16 11:17 166/70 12/25/16 11:15 176/74 12/25/16 11:13 66 16 12/25/16 11:13 66 16 94 12/25/16 11:08 66 18 94 12/25/16 11:08 67 18 12/25/16 11:07 65 17 12/25/16 11:07 65 17 174/78 94 12/25/16 11:04 164/80 12/25/16 11:02 66 18 12/25/16 11:02 66 18 93 12/25/16 11:00 Nasal Cannula 4 12/25/16 10:50 70 16 160/85 94 Mask 10 12/25/16 10:42 36.1 75 16 166/81 96 Mask 10 Laboratory Results: Last 24 Hours Test 12/25/16 10:55 12/25/16 11:12 12/25/16 12:25 12/25/16 12:52 Bedside Glucose 147 mg/dl Prothrombin Time 10.6 SECONDS Prothromb Time International Ratio 1.0 Activated Partial Thromboplast Time 24.8 SECONDS Partial Thromboplastin Ratio 1.0 White Blood Count 15.05 K/uL Red Blood Count 4.73 M/uL Hemoglobin 14.1 g/dL Hematocrit 41.9 % Mean Corpuscular Volume 88.6 fL Mean Corpuscular Hemoglobin 29.8 pg Mean Corpuscular Hemoglobin Concent 33.7 g/dl RDW Standard Deviation 44.0 fL RDW Coefficient of Variation 13.4 % Platelet Count 256 K/uL Mean Platelet Volume 9.9 fL Sodium Level 141 mmol/L Potassium Level 3.9 mmol/L Chloride Level 106 mmol/L Carbon Dioxide Level 25 mmol/L Anion Gap 10.0 mmol/L Blood Urea Nitrogen 11 mg/dl Creatinine 0.81 mg/dl Est Creatinine Clear Calc Drug Dose 94.9 ml/min Estimated GFR () 90.2 Estimated GFR (Non- 77.8 BUN/Creatinine Ratio 13.1 Random Glucose 175 mg/dl Lactic Acid Level 1.0 mmol/L Calcium Level 8.5 mg/dl Phosphorus Level 4.1 mg/dl Magnesium Level 2.3 mg/dl Total Bilirubin 0.7 mg/dl Aspartate Amino Transf (AST/SGOT) 17 U/L Alanine Aminotransferase (ALT/SGPT) 27 U/L Alkaline Phosphatase 98 U/L Total Protein 7.8 gm/dl Albumin 3.8 gm/dl Globulin 4.0 gm/dl Albumin/Globulin Ratio 1.0 Test 12/25/16 12:55 12/25/16 18:03 12/26/16 00:30 12/26/16 05:16 Bedside Glucose 159 mg/dl 198 mg/dl 182 mg/dl White Blood Count 12.40 K/uL Red Blood Count 4.38 M/uL Hemoglobin 12.6 g/dL Hematocrit 38.9 % Mean Corpuscular Volume 88.8 fL Mean Corpuscular Hemoglobin 28.8 pg Mean Corpuscular Hemoglobin Concent 32.4 g/dl Platelet Count 285 K/uL Mean Platelet Volume 9.6 fL Neutrophils (%) (Auto) 82.7 % Lymphocytes (%) (Auto) 8.9 % Monocytes (%) (Auto) 8.0 % Eosinophils (%) (Auto) 0.0 % Basophils (%) (Auto) 0.1 % Neutrophils # (Auto) 10.26 K/uL Lymphocytes # (Auto) 1.10 K/uL Monocytes # (Auto) 0.99 K/uL Eosinophils # (Auto) 0.00 K/uL Basophils # (Auto) 0.01 K/uL RDW Standard Deviation 44.0 fL RDW Coefficient of Variation 13.5 % Immature Granulocyte % (Auto) 0.3 % Immature Granulocyte # (Auto) 0.04 K/uL Sodium Level 140 mmol/L Potassium Level 4.5 mmol/L Chloride Level 104 mmol/L Carbon Dioxide Level 30 mmol/L Anion Gap 6.0 mmol/L Blood Urea Nitrogen 8 mg/dl Creatinine 0.63 mg/dl Est Creatinine Clear Calc Drug Dose 119.0 ml/min Estimated GFR () 111.4 Estimated GFR (Non- 96.1 BUN/Creatinine Ratio 13.2 Random Glucose 161 mg/dl Calcium Level 8.1 mg/dl Phosphorus Level 3.3 mg/dl Magnesium Level 2.3 mg/dl Test 12/26/16 06:04 Bedside Glucose 150 mg/dl Resident Tracking Resident Involvement: Resident Care Provided Care Provided: Adult Hospital Medicine (ICU)
[2016-12-26] MEDS ORDERED: PNEUMOCOCCAL POLYSACCHARIDES 25 MCG/0.5 ML VIAL/SYR IM. ONE (08:00)
[2016-12-26] MEDS ORDERED: PNEUMOCOCCAL ADMINISTRATION CHARGE ONE (08:00)
[2016-12-26] MEDS: NORMOSOL R 1,000 ML IV SCH ×2 (09:03→19:35)
[2016-12-26] MEDS ORDERED: LOSARTAN POTASSIUM 50 MG TAB PO ONE (09:11)
[2016-12-26] MEDS ORDERED: AMLODIPINE BESYLATE 5 MG TAB PO ONE (09:11)
[2016-12-26] MEDS ORDERED: HydrALAZINE HCL 20 MG/ML VIAL IV. PRN (09:30)
--- NOTE | 2016-12-26 09:33 | Surgery Progress Note ---
Surgery Progress Note Date of Service Dec 26, 2016. Subjective Post OP Day: 1 no further left sided numbness, pain control marginal, given some labetolol overnight Objective Vital Signs: Date Time Temp Pulse Resp B/P (MAP) Pulse Ox O2 Delivery O2 Flow Rate FiO2 12/26/16 08:00 4.0 12/26/16 08:00 36.8 64 19 160/61 (94) 94 Oxymask 4.0 12/26/16 06:00 64 19 159/64 (95) 94 Oxymask 4.0 12/26/16 05:32 65 15 163/67 (99) 91 Oxymask 4.0 12/26/16 05:00 63 18 148/72 (97) 94 Oxymask 4.0 12/26/16 04:30 63 23 153/63 (93) 95 Oxymask 4.0 12/26/16 04:00 4.0 12/26/16 04:00 36.8 81 21 159/66 (97) 94 Oxymask 4.0 12/26/16 03:30 63 17 156/70 (98) 95 Oxymask 4.0 12/26/16 03:00 67 22 167/71 (103) 94 12/26/16 02:30 64 13 168/73 (104) 94 12/26/16 02:00 37.0 64 17 162/66 (98) 91 12/26/16 01:30 62 21 157/65 (95) 94 12/26/16 01:00 66 16 167/64 (98) 94 Oxymask 4.0 12/26/16 00:30 64 17 146/62 (90) 93 Oxymask 4.0 12/26/16 00:00 36.9 70 26 177/79 (111) 92 Oxymask 4.0 12/26/16 00:00 4.0 12/25/16 23:30 70 17 161/73 (102) 92 4.0 12/25/16 23:00 68 20 131/56 (81) 93 Oxymask 4.0 12/25/16 22:30 69 23 173/73 (106) 93 Oxymask 4.0 12/25/16 22:00 68 25 168/71 (103) 93 Oxymask 4.0 12/25/16 21:30 67 27 143/70 (94) 91 Oxymask 4.0 12/25/16 21:00 71 18 178/76 (110) 92 Oxymask 4.0 12/25/16 20:30 68 25 174/78 (110) 92 Oxymask 4.0 12/25/16 20:14 76 24 169/96 (120) 93 Oxymask 4.0 12/25/16 20:00 4.0 12/25/16 20:00 36.8 81 21 157/65 (95) 94 Oxymask 4.0 12/25/16 19:30 80 15 180/81 (114) 93 12/25/16 19:21 78 18 181/84 (116) 88 12/25/16 19:00 77 17 183/83 (116) 93 12/25/16 18:02 86 22 185/83 92 12/25/16 16:32 75 19 165/73 95 12/25/16 16:02 76 22 174/75 94 12/25/16 16:00 Mask 4.0 12/25/16 15:32 78 18 167/76 94 12/25/16 15:02 74 23 154/72 95 12/25/16 14:17 75 21 157/73 (101) 91 Nasal Cannula 4.0 12/25/16 14:02 75 22 160/72 (101) 91 Nasal Cannula 4.0 12/25/16 13:47 36.9 72 20 170/74 (106) 91 Nasal Cannula 4.0 12/25/16 13:32 75 19 142/55 (84) 92 Nasal Cannula 4.0 12/25/16 13:26 78 15 131/59 (83) 94 Nasal Cannula 4.0 12/25/16 13:21 36.5 68 16 95 3.0 12/25/16 12:20 95 Nasal Cannula 3.0 12/25/16 12:20 36.5 68 16 144/78 (100) 95 Nasal Cannula 3.0 12/25/16 11:57 155/74 12/25/16 11:56 67 15 94 12/25/16 11:56 67 15 12/25/16 11:55 69 20 93 12/25/16 11:55 69 20 12/25/16 11:53 133/59 12/25/16 11:50 68 18 93 12/25/16 11:50 68 18 12/25/16 11:48 154/63 12/25/16 11:45 68 21 93 12/25/16 11:45 67 21 12/25/16 11:42 145/64 12/25/16 11:40 67 19 90 12/25/16 11:40 68 19 12/25/16 11:38 146/63 12/25/16 11:35 68 17 12/25/16 11:35 69 17 92 12/25/16 11:33 161/62 12/25/16 11:30 68 18 12/25/16 11:30 68 18 92 12/25/16 11:28 160/65 12/25/16 11:25 68 16 12/25/16 11:25 65 16 90 12/25/16 11:24 167/72 12/25/16 11:23 36.5 12/25/16 11:18 67 19 92 12/25/16 11:18 67 19 12/25/16 11:17 166/70 12/25/16 11:15 176/74 12/25/16 11:13 66 16 12/25/16 11:13 66 16 94 12/25/16 11:08 66 18 94 12/25/16 11:08 67 18 12/25/16 11:07 65 17 12/25/16 11:07 65 17 174/78 94 12/25/16 11:04 164/80 12/25/16 11:02 66 18 12/25/16 11:02 66 18 93 12/25/16 11:00 Nasal Cannula 4 12/25/16 10:50 70 16 160/85 94 Mask 10 12/25/16 10:42 36.1 75 16 166/81 96 Mask 10 Physical Exam: Nico drainage (40 cc), nasogastric drainage (250 cc in canister , brown), urine output (650 cc overnight) Cardiovascular: regular rate, rhythm Abdomen: soft Incision(s): drainage (bloody drainage from mesfin under incision) Laboratory Results: Results Past 24 Hours Test 12/25/16 10:55 12/25/16 11:12 12/25/16 12:25 12/25/16 12:52 Range/Units Bedside Glucose 147 70-90 mg/dl Prothrombin Time 10.6 9.0-12.0 SECONDS Prothromb Time International Ratio 1.0 0.9-1.1 Activated Partial Thromboplast Time 24.8 21.0-31.0 SECONDS Partial Thromboplastin Ratio 1.0 White Blood Count 15.05 4.8-10.8 K/uL Red Blood Count 4.73 4.2-5.4 M/uL Hemoglobin 14.1 12.0-16.0 g/dL Hematocrit 41.9 37-47 % Mean Corpuscular Volume 88.6 80-100 fL Mean Corpuscular Hemoglobin 29.8 25-34 pg Mean Corpuscular Hemoglobin Concent 33.7 32-36 g/dl RDW Standard Deviation 44.0 36.4-46.3 fL RDW Coefficient of Variation 13.4 11.5-14.5 % Platelet Count 256 130-400 K/uL Mean Platelet Volume 9.9 7.4-10.4 fL Sodium Level 141 136-145 mmol/L Potassium Level 3.9 3.5-5.1 mmol/L Chloride Level 106 98-107 mmol/L Carbon Dioxide Level 25 21-32 mmol/L Anion Gap 10.0 3-11 mmol/L Blood Urea Nitrogen 11 7-18 mg/dl Creatinine 0.81 0.60-1.20 mg/dl Est Creatinine Clear Calc Drug Dose 94.9 ml/min Estimated GFR () 90.2 Estimated GFR (Non- 77.8 BUN/Creatinine Ratio 13.1 10-20 Random Glucose 175 70-99 mg/dl Lactic Acid Level 1.0 0.4-2.0 mmol/L Calcium Level 8.5 8.5-10.1 mg/dl Phosphorus Level 4.1 2.5-4.9 mg/dl Magnesium Level 2.3 1.8-2.4 mg/dl Total Bilirubin 0.7 0.2-1 mg/dl Aspartate Amino Transf (AST/SGOT) 17 15-37 U/L Alanine Aminotransferase (ALT/SGPT) 27 12-78 U/L Alkaline Phosphatase 98 45-117 U/L Total Protein 7.8 6.4-8.2 gm/dl Albumin 3.8 3.4-5.0 gm/dl Globulin 4.0 2.5-4.0 gm/dl Albumin/Globulin Ratio 1.0 0.9-2 Test 12/25/16 12:55 12/25/16 18:03 12/26/16 00:30 12/26/16 05:16 Range/Units Bedside Glucose 159 198 182 70-90 mg/dl White Blood Count 12.40 4.8-10.8 K/uL Red Blood Count 4.38 4.2-5.4 M/uL Hemoglobin 12.6 12.0-16.0 g/dL Hematocrit 38.9 37-47 % Mean Corpuscular Volume 88.8 80-100 fL Mean Corpuscular Hemoglobin 28.8 25-34 pg Mean Corpuscular Hemoglobin Concent 32.4 32-36 g/dl Platelet Count 285 130-400 K/uL Mean Platelet Volume 9.6 7.4-10.4 fL Neutrophils (%) (Auto) 82.7 % Lymphocytes (%) (Auto) 8.9 % Monocytes (%) (Auto) 8.0 % Eosinophils (%) (Auto) 0.0 % Basophils (%) (Auto) 0.1 % Neutrophils # (Auto) 10.26 1.4-6.5 K/uL Lymphocytes # (Auto) 1.10 1.2-3.4 K/uL Monocytes # (Auto) 0.99 0.11-0.59 K/uL Eosinophils # (Auto) 0.00 0-0.5 K/uL Basophils # (Auto) 0.01 0-0.2 K/uL RDW Standard Deviation 44.0 36.4-46.3 fL RDW Coefficient of Variation 13.5 11.5-14.5 % Immature Granulocyte % (Auto) 0.3 % Immature Granulocyte # (Auto) 0.04 0.00-0.02 K/uL Sodium Level 140 136-145 mmol/L Potassium Level 4.5 3.5-5.1 mmol/L Chloride Level 104 98-107 mmol/L Carbon Dioxide Level 30 21-32 mmol/L Anion Gap 6.0 3-11 mmol/L Blood Urea Nitrogen 8 7-18 mg/dl Creatinine 0.63 0.60-1.20 mg/dl Est Creatinine Clear Calc Drug Dose 119.0 ml/min Estimated GFR () 111.4 Estimated GFR (Non- 96.1 BUN/Creatinine Ratio 13.2 10-20 Random Glucose 161 70-99 mg/dl Calcium Level 8.1 8.5-10.1 mg/dl Phosphorus Level 3.3 2.5-4.9 mg/dl Magnesium Level 2.3 1.8-2.4 mg/dl Test 12/26/16 06:04 Range/Units Bedside Glucose 150 70-90 mg/dl Microbiology Results 12/25/16 MRSA DNA Surveillance Screen - Final, Complete Specimen Negative for MRSA by DNA Probe Assessment & Plan s/p lap assisted sigmoid colectomy ? TIA, symptoms resolved HTN DM II stable this AM, will transfer to PCU will hold heparin for incision oozing, restart in AM cont NGT, can have meds, ice will restart home meds (Norvasc, Cozaar), prn hydralazine seen with Dr. Núñez
[2016-12-26] MEDS: MoRPHine SULFATE 4 MG/ML 1 ML CARP\\VIAL IV PRN ×3 (10:00→16:44)
[2016-12-26] MEDS: PANTOprazole INJ 40 MG in SYRINGE 0 ML IV SCH (11:02)
--- NOTE | 2016-12-26 13:53 | Progress Note ---
Medicine Progress Note Date & Time of Visit: Dec 26, 2016 at 13:26. Subjective Pt was seen and examined Lying in bed with no distress Pt said that she does have some abdominal tenderness from the surgery Denies any numbness, weakness, SOB, chest pain and palpitation Objective Last 8 Hrs Date Time Temp Pulse Resp B/P (MAP) Pulse Ox O2 Delivery O2 Flow Rate FiO2 12/26/16 12:46 113/70 (84) 12/26/16 12:00 36.8 63 19 175/72 (106) 94 Oxymask 2.0 12/26/16 12:00 2.0 12/26/16 08:00 4.0 12/26/16 08:00 Mask 12/26/16 08:00 36.8 64 19 160/61 (94) 94 Oxymask 4.0 12/26/16 06:00 64 19 159/64 (95) 94 Oxymask 4.0 12/26/16 05:32 65 15 163/67 (99) 91 Oxymask 4.0 Physical Exam: General- No acute distress Head- atraumatic Eyes- PERRL, EOMI ENT- oropharynx clear Neck- supple, no JVD Lungs- clear to auscultation Heart- regular rhythm Abdomen- normal bowel sounds, soft Extremities- no calf tenderness Neuro- alert, oriented x 3; PERRL, EOMI; no facial palsy; no dysarthria; motor 5 /5 bilaterally Skin- warm & dry Laboratory Results: Last 24 Hours Test 12/25/16 18:03 12/26/16 00:30 12/26/16 05:16 12/26/16 06:04 Bedside Glucose 198 mg/dl 182 mg/dl 150 mg/dl White Blood Count 12.40 K/uL Red Blood Count 4.38 M/uL Hemoglobin 12.6 g/dL Hematocrit 38.9 % Mean Corpuscular Volume 88.8 fL Mean Corpuscular Hemoglobin 28.8 pg Mean Corpuscular Hemoglobin Concent 32.4 g/dl Platelet Count 285 K/uL Mean Platelet Volume 9.6 fL Neutrophils (%) (Auto) 82.7 % Lymphocytes (%) (Auto) 8.9 % Monocytes (%) (Auto) 8.0 % Eosinophils (%) (Auto) 0.0 % Basophils (%) (Auto) 0.1 % Neutrophils # (Auto) 10.26 K/uL Lymphocytes # (Auto) 1.10 K/uL Monocytes # (Auto) 0.99 K/uL Eosinophils # (Auto) 0.00 K/uL Basophils # (Auto) 0.01 K/uL RDW Standard Deviation 44.0 fL RDW Coefficient of Variation 13.5 % Immature Granulocyte % (Auto) 0.3 % Immature Granulocyte # (Auto) 0.04 K/uL Sodium Level 140 mmol/L Potassium Level 4.5 mmol/L Chloride Level 104 mmol/L Carbon Dioxide Level 30 mmol/L Anion Gap 6.0 mmol/L Blood Urea Nitrogen 8 mg/dl Creatinine 0.63 mg/dl Est Creatinine Clear Calc Drug Dose 119.0 ml/min Estimated GFR () 111.4 Estimated GFR (Non- 96.1 BUN/Creatinine Ratio 13.2 Random Glucose 161 mg/dl Calcium Level 8.1 mg/dl Phosphorus Level 3.3 mg/dl Magnesium Level 2.3 mg/dl Test 12/26/16 08:42 12/26/16 12:14 Bedside Glucose 141 mg/dl 135 mg/dl Date/Time Source Procedure Growth Status 12/25/16 20:40 Nasal MRSA DNA Surveillance Screen - Final Specimen Negative for MRSA by DNA Probe Complete Assessment & Plan Left Sided Numbness and Weakness -Possible related to TIA vs post-op epidural reaction -S/P Laparoscopic lysis of dense adhesions, sigmoid colon resection for side - end anastomosis by Dr Ramos. -Stroke alert called because pt was found to have left side weakness and numbness associated with facial droop -NIH Stroke scale- 17. Not a TPA candidate due to post operative status -MRI of the brain showwed no evidence for an acute ischemic insult. 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 Núñez continue pain control NGT on place Incentive spirometry HTN- -Permissive hypertension, will let BP run btw 140-160 -Restart amlodipine, losartan DM-2, NIDDM -Hold metformin -ISS, Accuchecks DYSLIPIDEMIA -On atorvastatin 40 mg MORBID OBESITY DVT PROPHYLAXIS as per surgery DISPOSITION Will transfer to Tele Current Inpatient Medications: Current Inpatient Medications Medications (Trade) Dose Ordered Sig/Naila Route Start Time Stop Time Status Last Admin Dose Admin Ondansetron HCl (Zofran Inj) 4 mg Q6H PRN IV 12/25/16 10:45 01/24/17 10:44 Future hold Glucose (Glucose 40% Gel) 15-30 GRAMS 15 GRAMS... UD PRN PO 12/25/16 10:45 01/24/17 10:44 Glucose (Glucose Chew Tab) 4-8 Tablets 4 Tabl... UD PRN PO 12/25/16 10:45 01/24/17 10:44 Dextrose (Dextrose 50% 50ML Syringe) 25-50ML OF 50% DW IV FOR... UD PRN IV 12/25/16 10:45 01/24/17 10:44 Glucagon (Glucagon Inj) 1 mg UD PRN SQ 12/25/16 10:45 01/24/17 10:44 Pantoprazole Sodium 40 mg/ Syringe 10 ml @ 5 mls/min DAILY@11 IV 12/26/16 11:00 01/25/17 10:59 12/26/16 11:02 5 MLS/MIN Insulin Aspart (novoLOG ASPART) SLIDING SCALE If C... Q6 SC 12/25/16 18:00 01/24/17 17:59 12/26/16 06:07 1 UNITS Acetaminophen 100 ml @ 400 mls/hr Q8H PRN IV 12/25/16 16:30 01/24/17 16:29 12/26/16 02:24 400 MLS/HR Parenteral Electrolyte Solution 1,000 ml @ 100 mls/hr Q10H IV 12/26/16 08:45 01/25/17 08:44 12/26/16 09:03 100 MLS/HR Amlodipine Besylate (Norvasc Tab) 10 mg QAM PO 12/27/16 09:00 01/26/17 08:59 Losartan Potassium (coZAAR TAB) 50 mg QAM PO 12/27/16 09:00 01/26/17 08:59 Heparin Sodium (Porcine) (Heparin Sq 5000 Unit/0.5ml) 5,000 unit Q8 SQ 12/27/16 07:00 01/26/17 06:59 Hydralazine HCl (HydrALAZINE INJ) 10 mg Q6H PRN IV. 12/26/16 09:30 01/25/17 09:29 12/26/16 12:18 10 MG Morphine Sulfate (MoRPHine SULFATE INJ) 4 mg Q1H PRN IV 12/26/16 09:30 01/09/17 09:29 12/26/16 12:52 4 MG
--- NOTE | 2016-12-26 17:32 | DIAGNOSTIC IMAGING REPORT ---
CT HEAD WITHOUT CONTRAST (CT) CLINICAL HISTORY: Left-sided weakness. Stroke like symptoms. COMPARISON STUDY: 12/25/2016 TECHNIQUE: Axial CT of the brain is performed from the vertex to the skull base. IV contrast was not administered for this examination. CT DOSE: 884.08 mGy.cm FINDINGS: No intra or extra-axial mass lesions are visualized. There is no CT evidence of acute cortical infarction. There is no evidence of midline shift. There is no acute hemorrhage. No calvarial fractures are visualized. There are patchy white matter hypodensities likely on a small vessel basis. There is a stable lacunar infarct in the right centrum semiovale. There is no evidence of pathologic ventricular dilatation. There is no evidence of acute sinusitis IMPRESSION: No acute intracranial findings Electronically signed by: David Pittman M.D. 12/26/2016 5:31 PM Dictated Date/Time: 12/26/2016 5:29 PM
[2016-12-26] MEDS: ONDANSETRON INJ 2 MG/ML 2 ML VIAL IV PRN (17:35)
--- NOTE | 2016-12-26 20:16 | Progress Note ---
Progress Note Date of Service Dec 26, 2016. Progress Note Nurse called and said that pt had similar symptoms of left sided numbness and weakness. I went to assess pt, her daughter was at bedside. pt loss sensation on the left side and was unable to move her left upper and lower extremities. speech was fluent, no facial droop, no tongue deviation and no vision changes. Only medication given before symptoms started was IV morphine. A stat CT head was done that showed no acute intracranial abnormality. After a few minutes i went to reevaluate pt, she was able to lift her left lower extremity, but unable to lift the left upper extremity. She tried to squeeze my finger with her left hand and was not able to do. Pt refused to go for a stat MRI of the head. she said that she had all the imaging and MRI done yesterday and they were negative. I again went to evaluate pt again for a 3rd time, again she was unable to move her left upper and lower extremities. she said that she feels better. she can start to feel when we touched her left upper part of her arm. I told daughter and pt that, i am going to order a stat MRI of the head to r/o any stroke. Pt again refused, but i finally convinced her to get the MRI. Her symptoms only last about 30minutes yesterday, but this time it is been more that 1 hr and she continue to have left sided numbness and weakness. I am going to order a low dose of Ativan to be given few minutes before the MRI. Will follow the MRI and will consult neurology.
[2016-12-26] MEDS ORDERED: LORAZEPAM 2 MG/ML 1 ML VIAL IV SCH (20:30)
--- NOTE | 2016-12-26 22:22 | DIAGNOSTIC IMAGING REPORT ---
MRI OF THE BRAIN WITHOUT CONTRAST CLINICAL HISTORY: Left-sided weakness. Stroke like symptoms COMPARISON STUDY: 12/25/2016 FINDINGS: Sagittal T1, axial diffusion, proton density and T2 weighted axial, coronal FLAIR, and axial T1-weighted images were acquired. No intra or extra-axial mass lesions are visualized There are multiple areas of restricted water diffusion involving the right basal ganglia, right frontal lobe, and right parietal lobe. The findings are consistent with an acute right MCA distribution infarct. There is no evidence of ventricular dilatation. Proton density T2-weighted and FLAIR images reveal scattered foci of increased T2 signal within the white matter, likely on a small vessel basis. There is an old lacunar infarct within the right centrum semiovale. There is an abnormal flow void within the petrous and supraclinoid right internal carotid artery consistent with slow flow/occlusion. IMPRESSION: 1. Multifocal areas of restricted water diffusion involving portions of the right frontal lobe, right basal ganglia, and right parietal lobe. The findings are indicative of an acute right MCA distribution infarct. 2. Abnormal/absent flow void within the petrous and supraclinoid right internal carotid artery, consistent with slow flow/occlusion. Electronically signed by: David Pittman M.D. 12/26/2016 10:21 PM Dictated Date/Time: 12/26/2016 10:16 PM
[2016-12-26] MEDS ORDERED: ASPIRIN 300 MG SUPP PR STA (22:43)
--- NOTE | 2016-12-26 23:04 | Progress Note ---
Progress Note Date of Service Dec 26, 2016. Progress Note ATTENDING NOTE : MRI Of brain reviewed : IMPRESSION: 1. Multifocal areas of restricted water diffusion involving portions of the right frontal lobe, right basal ganglia, and right parietal lobe. The findings are indicative of an acute right MCA distribution infarct. 2. Abnormal/absent flow void within the petrous and supraclinoid right internal carotid artery, consistent with slow flow/occlusion. -possible embolic event form occluded rt carotid artery vascular surgery consult placed -had negative MRI of brain on 12/25/16 -pt had recent GI surgery -not a candidate for TPA -ordered for 300 mg Aspirin SC -surgery team paged to updated -Neurology consulted , paged Dr Cruz for further recommendation -D/w Dr Cruz -given the total occlusion of rt ICA /embolic CVA at Rt hemisphere and pt being post op not be a candidate for tPA for recent post op status -ordered for 300 mg SC aspirin , watch for any bleeding complication -stroke alert called for Tertiary care evaluation -Family updated over phone
[2016-12-27] VITALS (24 sets, daily range): BP systolic 156–218; BP diastolic 64–96; PULSE 61–82; TEMP 36.7–37.3; O2SAT 90–98
--- NOTE | 2016-12-27 00:14 | Progress Note ---
Progress Note Date of Service Dec 27, 2016. Progress Note ATTENDING NOTE : stroke alert called case d/W with [facility] Dr Fernandez given acute CVA /complete occlusion of Rt ICA /recent Sigmoid resection due to CA not a candidate for t-PA ,not a candidate for neurological intervention pt had chronic occlusion of Rt ICA , due to hemodynamic change /drop in BP intra and post op -Developed low perfusion status -leading to TIA symptom in past 8-12 hrs , developed embolic phenomenon as the distribution of the acute CVA at RT MCA -watershed area -high likely simon of clot embolization tele showed -brief episode of rapid afib , converted to sinus spontaneously [facility] Recommendation : -need to Keep HOB elevated to allow adequate cerebral perfusion -allow SBP to be around > 160 ( 170-180 mmhg will be oK ) -no to drop BP abruptly ; will precipitate TIA /CVA -10 mg IV labetalol can be used cautiously fro SBP > 190 -NO HYDRALAZINE ( Norvasc /Losartan D/lissy ) -with any change of mental status -State CT head should be ordered -Cardiology eval for possible Af ib -discussion with Surgery /neurology team when it is safe for start pt on Plavix -in setting of Afib -low dose IV Heparin with PTT 50-70 recommended ( no bolus ) but needs to be D/w Surgery team for bleeding risk -CT abdomen /pelvis need to be done for staging /liver mets adeno CA if not done already as out pt -pt is transferred to ICU for close monitoring of hemodynamics -ICU team updated
[2016-12-27] MEDS: SODIUM CHLORIDE 0.9% 1000ML 1,000 ML IV SCH ×3 (01:00→20:56)
[2016-12-27] MEDS ORDERED: LABETALOL HCL IV 5 MG/ML 20ML IV PRN (01:15)
--- NOTE | 2016-12-27 02:29 | Critical Care Progress Note ---
Critical Care Progress Note Date of Service Dec 27, 2016. ICU Day ICU Day Number: [address] Ariana Albrecht Nenita Fleming is a 61-year-old female who was admitted to the ICU recently and transferred out on the morning of December 26 status post overnight observation after TIA symptoms with bowel resection. According to nursing notes around 1705,the patient was noted to not attempt to assist with left sided extremities when changing gown. When asked patient was not able to raise her hand and made no effort against gravity. Patient also reported that she had lost sensation in the left arm and left leg. At that time there is no facial symmetry or facial droop. The NIH stroke scale was completed with a score of 12, whereas earlier the score had been 0. Per nursing records Dr. Jansen happened to be outside of the room was notified immediately. Patient was assessed and sent for a stat CT. It is my understanding the patient was asked to undergo an MRI and had refused over the course of several hours and around midnight agreed. At which time the MRI demonstrated multifocal areas of obstructive water diffusion involving portions the right frontal lobe, right basal ganglia, and right parietal lobe. The findings are indicative of acute right MCA distribution infarct. As well abnormal/absent flow void within the petrous and supraclinoid right internal carotid artery, consistent with slow flow/occlusion. This is found to be an acute change as patient had undergone a brain MRI the previous evening that had demonstrated no evidence for acute ischemic insult. A code stroke alert was called and [facility] was contacted by Dr. Riddle. For multiple reasons including recent surgery as well as patient's refusal for MRI, it was determined that the stroke event was complete and she was not a candidate for further management such as clot retrieval or TPA. [facility] declined transfer the patient and she was transferred to the ICU for neurological monitoring overnight. Patient denies fever, chills, shortness of breath, cough, dyspnea, chest pain/ pressure, awareness of tachyarrhythmias. Patient denies change in urinary or bowel habits. Objective Vital Signs - as noted Laboratory Data - as noted Physical Exam: General - NAD, Resting comfortably in bed with no complaints Eyes - PERRL, EOMI No icterus, gaze conjugate ENT - Mucosa moist, no lesions or candidiasis Neck - Supple, trachea midline, no masses or lymphadenopathy, no JVD or bruits Lungs - No paradoxical chest wall movement, coarse and diminished to auscultation bilaterally, no wheezes, rales, or rhonchi Heart - Reg rate and rhythm, No murmur, rubs, clicks, or gallops appreciated Abdomen - BS hypoactive, no bruits noted, tympanic to percussion, soft, nontender, nondistended, no organomegaly, Incision Site Dressing clean, dry, and intact Extremities - No edema, pedal pulses intact Neuro - A&OX4, NIH scale 10 (Improved), Sensation intact throughout, flaccid left sided extremities Strength extremities equal and appropriate bilaterally Reflexes: normal and equal Cerebellum: Finger to nose appropriate to right, Unable to test Left CN:PERRL, EOMI, no facial asymmetry, uvula/tongue midline Current SOFA Score SOFA Score Response (Comments) Value Platelets (x10) > 150 0 Bilirubin (mg/dL) < 1.2 0 Sullivan Coma Score 15 0 Level of Hypotension No Hypotension 0 Creatinine (mg/dL) < 1.2 0 Total 0 Assessment & Plan (1) Internal carotid artery stenosis (2) Intracranial carotid stenosis, bilateral (3) Vertebral artery stenosis, symptomatic, without infarction (4) TIA (transient ischemic attack) (5) Hypertension (6) Colon polyp (7) Acute right MCA stroke Neuro: * Acute Changes per MRI and Pt Symptoms * MCA distribution changes as noted in HPI * NIH improved from 12 to 10 * Stroke Protocol Ordered * Neuro Checks q 15min * Repeat Head CT in AM * Neurology Consulted: Appreciate input * Maintain SBP 160-170's, 180's permissible * D/C'd home HTN medications * [facility] Consulted: Per Dr. Riddle * Keep head of bed at 30 to allow adequate cerebral perfusion * Avoid dropping blood pressure abruptly as it will precipitate TIA/CVA * 10 mg IV labetalol can be used cautiously from SBP > 190 (Use Cautiously, 5mg known to drop her pressures 30 mmHg) Cardiology: * Monitor on telemetry * Cardiology consult has been placed to workup for arrhythmia GI: * Plan to undergo abdominal/pelvis CT in the morning for staging of liver metastasis adenocarcinoma * Will need to discuss with surgeon in regards to starting Plavix : * Strict I's and O's * Woody in place to gravity * Monitor daily labs/replace electrolyte's per protocol Pulmonary: * Supplemental oxygen as needed, currently on facemask with adequate saturations * Wean as tolerated * Monitor on telemetry Endocrine: * Continue sliding scale with NovoLog * Continue to hold metformin * Blood sugars per protocol Heme: * Monitor daily H&H * Will monitor coagulation after cleared for Plavix use ID: * White blood cells decreasing now 12.4 * Afebrile * Received prophylactic antibiotics on date of surgery * Monitor fever curve and follow daily CBC Access: Maintain 2 PIVs; No current indication for Central Access CCT: 47 minutes; Not including any billable procedures. Thank you for including us in the care of this patient. Please review Dr. Victor Hugo Lane's addendum for further recommendations. I have personally evaluated and examined this patient. I agree with assessment and plan of Margaret Torres PA-C. Neuro: I discussed the case with Dr. Cruz, and Dr. Delgado, dual antiplatelet therapy started at this time. Cardiology would prefer heparin and beta blockers in setting of atrial fibrillation, however permissive hypertension and prevention of hemorrhagic transformation would take precedence CVS: Paroxysmal atrial fibrillation, on dual antiplatelet therapy will need to readdress long-term anticoagulation status in the future Discussed CODE STATUS: Patient and both agree with full code and event of cardiac arrest, would obviously want to readdress issues if it appears she was approaching a end-stage terminal condition. I spent an additional 35 minutes of critical care time discussion the patient's management with cardiology, neurology, surgery, internal medicine, as well as evaluation the of patient. Consults & Procedures Consultants: Alyse Hernandez Hospitalist Neuro: Dr. Cruz Cardiology: Dr. Henry Vascular surgery: Dr. Salinas (Admitting) General surgery: Dr. Núñez Procedures: 12/25/16, Dr Núñez: Laparoscopy, lysis of dense abdominal adhesions, approximately 1/3 of the operative time, sigmoid colon resection with primary side-to-end anastomosis. Data Medications: Current Inpatient Medications Medications (Trade) Dose Ordered Sig/Naila Route Start Time Stop Time Status Last Admin Dose Admin Ondansetron HCl (Zofran Inj) 4 mg Q6H PRN IV 12/25/16 10:45 01/24/17 10:44 Future hold 12/26/16 17:35 4 MG Glucose (Glucose 40% Gel) 15-30 GRAMS 15 GRAMS... UD PRN PO 12/25/16 10:45 7/8/17 10:44 Glucose (Glucose Chew Tab) 4-8 Tablets 4 Tabl... UD PRN PO 12/25/16 10:45 01/24/17 10:44 Dextrose (Dextrose 50% 50ML Syringe) 25-50ML OF 50% DW IV FOR... UD PRN IV 12/25/16 10:45 01/24/17 10:44 Glucagon (Glucagon Inj) 1 mg UD PRN SQ 12/25/16 10:45 01/24/17 10:44 Pantoprazole Sodium 40 mg/ Syringe 10 ml @ 5 mls/min DAILY@11 IV 12/26/16 11:00 01/25/17 10:59 12/26/16 11:02 5 MLS/MIN Insulin Aspart (novoLOG ASPART) SLIDING SCALE If C... Q6 SC 12/25/16 18:00 01/24/17 17:59 12/26/16 23:48 1 UNITS Acetaminophen 100 ml @ 400 mls/hr Q8H PRN IV 12/25/16 16:30 01/24/17 16:29 12/26/16 02:24 400 MLS/HR Morphine Sulfate (MoRPHine SULFATE INJ) 4 mg Q1H PRN IV 12/26/16 09:30 01/09/17 09:29 12/26/16 16:44 4 MG Lorazepam (Ativan Inj) 0.5 mg TODAY@2030 IV 12/26/16 20:30 12/27/16 04:00 12/26/16 21:20 0.5 MG Sodium Chloride 1,000 ml @ 100 mls/hr Q10H IV 12/27/16 01:15 01/26/17 01:14 Labetalol HCl (Normodyne IV) 10 mg Q8 PRN IV 12/27/16 01:15 01/26/17 01:14 Vital Signs: Date Time Temp Pulse Resp B/P (MAP) Pulse Ox O2 Delivery O2 Flow Rate FiO2 12/27/16 01:00 36.9 67 20 93 2.0 12/27/16 00:00 High Flow Oxygen 2.0 12/26/16 23:30 36.9 67 20 160/78 (105) 93 Mask 2.0 12/26/16 20:00 High Flow Oxygen 2.0 12/26/16 19:24 62 18 162/77 (105) 93 Oxymask 2.0 12/26/16 17:15 68 18 158/68 (98) 94 Oxymask 2.0 12/26/16 16:00 Mask 2.0 12/26/16 15:24 37.1 65 20 109/72 (84) 92 Mask 2.0 12/26/16 12:46 113/70 (84) 12/26/16 12:00 36.8 63 19 175/72 (106) 94 Oxymask 2.0 12/26/16 12:00 2.0 12/26/16 08:00 4.0 12/26/16 08:00 Mask 12/26/16 08:00 36.8 64 19 160/61 (94) 94 Oxymask 4.0 12/26/16 06:00 64 19 159/64 (95) 94 Oxymask 4.0 12/26/16 05:32 65 15 163/67 (99) 91 Oxymask 4.0 12/26/16 05:00 63 18 148/72 (97) 94 Oxymask 4.0 12/26/16 04:30 63 23 153/63 (93) 95 Oxymask 4.0 12/26/16 04:00 4.0 12/26/16 04:00 36.8 81 21 159/66 (97) 94 Oxymask 4.0 12/26/16 03:30 63 17 156/70 (98) 95 Oxymask 4.0 12/26/16 03:00 67 22 167/71 (103) 94 12/26/16 02:30 64 13 168/73 (104) 94 12/26/16 02:00 37.0 64 17 162/66 (98) 91 Laboratory Results: Last 24 Hours Test 12/26/16 05:16 12/26/16 06:04 12/26/16 08:42 12/26/16 12:14 White Blood Count 12.40 K/uL Red Blood Count 4.38 M/uL Hemoglobin 12.6 g/dL Hematocrit 38.9 % Mean Corpuscular Volume 88.8 fL Mean Corpuscular Hemoglobin 28.8 pg Mean Corpuscular Hemoglobin Concent 32.4 g/dl Platelet Count 285 K/uL Mean Platelet Volume 9.6 fL Neutrophils (%) (Auto) 82.7 % Lymphocytes (%) (Auto) 8.9 % Monocytes (%) (Auto) 8.0 % Eosinophils (%) (Auto) 0.0 % Basophils (%) (Auto) 0.1 % Neutrophils # (Auto) 10.26 K/uL Lymphocytes # (Auto) 1.10 K/uL Monocytes # (Auto) 0.99 K/uL Eosinophils # (Auto) 0.00 K/uL Basophils # (Auto) 0.01 K/uL RDW Standard Deviation 44.0 fL RDW Coefficient of Variation 13.5 % Immature Granulocyte % (Auto) 0.3 % Immature Granulocyte # (Auto) 0.04 K/uL Sodium Level 140 mmol/L Potassium Level 4.5 mmol/L Chloride Level 104 mmol/L Carbon Dioxide Level 30 mmol/L Anion Gap 6.0 mmol/L Blood Urea Nitrogen 8 mg/dl Creatinine 0.63 mg/dl Est Creatinine Clear Calc Drug Dose 119.0 ml/min Estimated GFR () 111.4 Estimated GFR (Non- 96.1 BUN/Creatinine Ratio 13.2 Random Glucose 161 mg/dl Calcium Level 8.1 mg/dl Phosphorus Level 3.3 mg/dl Magnesium Level 2.3 mg/dl Bedside Glucose 150 mg/dl 141 mg/dl 135 mg/dl Test 12/26/16 17:58 12/26/16 23:35 Bedside Glucose 134 mg/dl 142 mg/dl
[2016-12-27] MEDS: INSULIN ASPART 100 UNITS/ML 3 ML PEN SC SCH ×3 (06:00→17:12)
[2016-12-27 06:52] LABS: BASO % 0.2 %; BASO ABS # 0.02 K/uL (0-0.2); COMPLETE YES; EOS % 0.6 %; HEMATOCRIT 34.3 % (37-47); IG% 0.4 %; LYMPH % 11.7 %; LYMPH ABS # 1.35 K/uL (1.2-3.4); MEAN CELL VOLUME 89.3 fL (80-100); MEAN CORPUSCULAR HEMOGLOBIN 29.4 pg (25-34); MEAN CORPUSCULAR HGB CONC 32.9 g/dl (32-36); MEAN PLATELET VOLUME 9.4 fL (7.4-10.4); MONO % 8.3 %; NEUT % 78.8 %; PLATELET COUNT 241 K/uL (130-400); RED BLOOD COUNT 3.84 M/uL (4.2-5.4); WHITE BLOOD COUNT 11.57 K/uL (4.8-10.8)
[2016-12-27] MEDS ORDERED: HEPARIN SOD 5000 UNIT/0.5 ML CARP SQ SCH (07:00)
[2016-12-27 07:14] LABS: BUN/CREATININE RATIO 14.3 (10-20); CALCIUM 8.1 mg/dl (8.5-10.1); CREATININE 0.48 mg/dl (0.60-1.20); POTASSIUM 4.1 mmol/L (3.5-5.1)
[2016-12-27] MEDS ORDERED: NALOXONE HCL INJ 0.4 MG/1 ML VIAL/CARP IV ONE (07:23)
[2016-12-27] MEDS ORDERED: SODIUM CHLORIDE 0.9% 10ML FLUSH IV ONE (07:23)
[2016-12-27 07:24] LABS: PHOSPHORUS 2.5 mg/dl (2.5-4.9)
--- NOTE | 2016-12-27 07:33 | DIAGNOSTIC IMAGING REPORT ---
CHEST ONE VIEW PORTABLE CLINICAL HISTORY: Shortness of breath. COMPARISON STUDY: Chest radiograph January 01, 2016. FINDINGS: The tip of the nasogastric tube is obscured on this exam but is at least within the distal esophagus and may be within the stomach. There is no pneumothorax. Mild bibasilar opacities have developed. There may be small bilateral pleural effusions. Cardiomegaly is noted. There is no pneumothorax. IMPRESSION: 1. Tip of nasogastric tube obscured but at least within the distal esophagus and possibly within the stomach. 2. Interval development of bibasilar opacities which could reflect atelectasis, consolidation or layering pleural effusions. 3. Mild cardiomegaly. Electronically signed by: Geraldo Domínguez M.D. 12/27/2016 7:31 AM Dictated Date/Time: 12/27/2016 7:29 AM
[2016-12-27] MEDS ORDERED: AMLODIPINE BESYLATE 5 MG TAB PO SCH (09:00)
[2016-12-27] MEDS: ACETAMINOPHEN IV 100 ML IV PRN (09:00)
[2016-12-27] MEDS ORDERED: LOSARTAN POTASSIUM 50 MG TAB PO SCH (09:00)
[2016-12-27] MEDS ORDERED: OPTIRAY 320 IV PRN (09:15)
--- NOTE | 2016-12-27 09:46 | SURGERY PROGRESS NOTE ---
DATE: 12/27/2016 DATE: 12/27/2016. Nenita is back in ICU yesterday. Apparently she had significant left-sided CVA. This patient was operated on 12/25/2016 where we did a laparoscopic lysis of dense abdominal adhesions, sigmoid cord resection with primary anastomosis for malignancy. The patient immediately postoperative period developed left-sided weakness that was just residual and only lasted about 20 minutes. She had had a previous history of having similar problems a year ago, was seen down to the Emergency Room were discussed with her retrospect with her . It lasted about a day and resolved. She was supposed to follow up with her family doctor at that time to get it further evaluated by the carotids and possibly on MRI, but she never followed through with that as she stated she had no insurance. At this point, the patient from the event that she had postoperatively had resolved completely. I saw her yesterday morning, she was alert, coherent and no problem. Her blood pressure was being maintained at a well perfusing level. We had discharged her to PCU and when she was up there apparently she had another significant episode and was taken down to the ICU where this morning she has a dense left sided paracentesis. He did get an MRI yesterday that showed what appeared to be middle cerebral artery distribution, possibly complete occlusion. On the CT angiogram that she obtains postoperatively there was some stenosis into the petrous portion of the internal carotid. No significant stenosis in the outside portions. At this point Nenita is alert, coherent and in no distress, obviously residual dense hemiparacentesis on the left side. Her last vitals showed a temperature 37.1, pulse 68, respirations 18, blood pressure 158/68, O2 sats 94 on room air. Her I&O she had 10 mL of drainage from a Nico drain. The NG drainage is minimal, actually we could probably take it out this morning. Her abdomen is soft and not distended. I discussed the situation with the neurology stroke physician. At this point pending what the would like to do in her status consideration must be given to address the code status with her. The other issue is the therapy at this time I have no contraindication to give heparinization if neurologically indicated. Certainly would try to maintain her blood pressure at a well perfusing level. Her labs this morning showed hemoglobin 11.3, WBC is 11.57, BUN is 7, creatinine 0.48.
--- NOTE | 2016-12-27 10:16 | CARDIOLOGY CONSULTATION ---
DATE OF CONSULTATION: 12/27/2016 REFERRING PHYSICIAN: Dr. Jodi Riddle. REASON FOR CONSULTATION: Atrial fibrillation, cerebrovascular accident. HISTORY OF PRESENT ILLNESS: Ms. Fleming is a 61-year-old female who is admitted for elective colectomy secondary to adenocarcinoma of the sigmoid colon. She carries a history of hypertension, diabetes, dyslipidemia and transient ischemic attack. The patient noted to have left-sided numbness, facial droop, left upper and lower extremity weakness on 12/26/2016. A code purple was called. Stroke alert was also initiated. The patient was not given TPA due to recent major surgery. She was transferred to the intensive care unit. She has remained hemodynamically stable and hypertensive. Neurologic status remains unchanged. As noted above she carries a history of transient ischemic attack, last summer. According to the patient and her no diagnosis or etiology of the TIAs was elicited. 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 Denies palpitations, chest discomfort, or unusual shortness of breath. Last night on telemetry a 22 beat run of paroxysmal atrial fibrillation was recorded. She has since remained in sinus rhythm. Leather Skinner at bedside. The patient nor her offer any other concerns at this time. REVIEW OF SYSTEMS: The pertinent positive noted above, a comprehensive 10-system review is otherwise negative. PAST MEDICAL HISTORY: 1. TIA. 2. Hypertension. 3. Diabetes type 2. 4. Dyslipidemia. 5. Obesity. 6. Adenocarcinoma of the sigmoid colon. 7. Ovarian tumor -- benign. PAST SURGICAL HISTORY: Open sigmoid colon resection with lysis of dense abdominal adhesions. FAMILY HISTORY: Negative for premature CAD or sudden cardiac ; however, noncontributory at this time. SOCIAL HISTORY: Denies history of alcohol abuse or tobacco. ALLERGIES: BEE VENOM, LISINOPRIL. OUTPATIENT MEDICATIONS: 1. Atorvastatin 40 mg daily. 2. Losartan 50 mg daily. 3. Metformin 1000 mg twice daily. 4. Loratadine 10 mg daily. 5. Amlodipine 10 mg daily. ECG performed 12/25/2016, sinus rhythm, normal ECG. IMAGING: Brain MRI: Multifocal areas of restricted water diffusion involving portions of the right frontal lobe, right basal ganglia, right parietal lobe, indicative of an acute right MCA distribution infarct, abnormal absent flow in the supraclinoid right internal carotid artery consistent with slow flow/occlusion. CHEST X-RAY: Mild cardiomegaly, bibasilar opacities reflecting atelectasis, infiltrate or effusion. LABORATORY DATA: White blood cell count is 11.57, hemoglobin is 11.3, platelet count is 241. Sodium is 137, potassium 4.0, chloride 100, CO2 is 29, BUN is 7, creatinine is 0.48. Glucose 141. INR 1.0. PHYSICAL EXAMINATION: VITAL SIGNS: Temperature is 37.3 degrees centigrade, pulse 70 beats per minute and regular, respiratory rate is 18 breaths per minute, blood pressure 172/64 SaO2 is 96% on 4 liters. GENERAL: NAD, awake and alert. NECK: Supple without JVD or HJR, no carotid bruit. HEART: Regular with a soft 1/6 holosystolic murmur heard best at the apex and left sternal border. LUNGS: Clear without rales, rhonchi or wheeze. ABDOMEN: Soft, tender. There is no rebound or guarding. EXTREMITIES: Warm and dry without clubbing, cyanosis, or edema. NEUROLOGIC: Demonstrates left-sided flaccid paralysis, no tongue deviation. FINAL IMPRESSION: 1. Acute cerebrovascular accident secondary to ARLYN occlusion. 2. Paroxysmal atrial fibrillation -- brief episode recorded overnight. 3. Permissive hypertension in the setting of acute cerebrovascular accident. 4. Internal carotid artery stenosis. 5. Adenocarcinoma of the colon status post colon resection. 6. Diabetes type 2. PLAN AND RECOMMENDATIONS: Brief episode of paroxysmal atrial fibrillation recorded on telemetry. The patient currently remains in sinus rhythm. Ultimately recommend low-dose beta-aline therapy, however, permissive hypertension is indicated at this time due to recent acute cerebrovascular accident. I would recommend 12.5 of metoprolol twice daily when allowed by the neurology service. The patient has been ordered Plavix. CVA appears to be due to vascular occlusion rather than cardioembolic event. Will continue to monitor telemtry for recurrent episodes of atrial fibrillation. Further recommendations regarding Coumadin versus DOAC to be considered in the future. Resting 2D transthoracic echo was ordered with results pending at this time. Further recommendations pending review of that study. I will continue to follow the patient during hospitalization. Thank you for allowing me to take part in the care of your patient. LG
--- NOTE | 2016-12-27 10:18 | DIAGNOSTIC IMAGING REPORT ---
CT OF THE HEAD WITHOUT CONTRAST CLINICAL HISTORY: Acute CVA COMPARISON STUDY: Head CT and MRI the brain December 26, 2016. CT DOSE: 823.94 mGycm TECHNIQUE: Helical axial images of the head were obtained without IV contrast. Automated exposure control was utilized for the study. FINDINGS: Several hypodense foci with loss of orellana-white differentiation within the right cerebral hemisphere are noted and reflect acute infarcts as shown and MRI the brain from December 26, 2016. These are most evident within the right frontal parietal convexity. Several foci within the anterior right frontal lobe and basal ganglia are noted. There is no mass effect. No hemorrhage is present. Ventricular system is normal. Basilar cisterns are patent. There are no extra-axial collections. There are no significant calvarial abnormalities. IMPRESSION: Expected evolution of multifocal acute infarcts within the right cerebral hemisphere as shown on MRI of December 26, 2016. No hemorrhage or significant mass effect. Electronically signed by: Geraldo Domínguez M.D. 12/27/2016 10:17 AM Dictated Date/Time: 12/27/2016 10:13 AM
--- NOTE | 2016-12-27 10:39 | DIAGNOSTIC IMAGING REPORT ---
CT OF THE ABDOMEN AND PELVIS WITH CONTRAST CLINICAL HISTORY: Ca of sigmoid colon ; evaluation of metastasis. COMPARISON STUDY: None. TECHNIQUE: Following IV administration of 119 mL of Optiray-320, axial images of the abdomen and pelvis were obtained from the lung bases to the proximal femurs. Images were reviewed in the axial, sagittal, and coronal planes. IV contrast was administered without complication. CT DOSE: 1007.73 mGycm FINDINGS: Visualized portions of the lower chest demonstrate moderate cardiomegaly. Subpleural opacities favor atelectasis. The liver, spleen, adrenal glands, right kidney and pancreas are on remarkable. Note is made of a 4.1 x 3 cm mass-like abnormality along the superior aspect of the left kidney which is separate from the adrenal gland. This contains several calcifications. This has lobulated margins. Mildly dilated gas-filled loop of small bowel are noted. No definite transition point is identified. There is mild infiltration within the operative bed status post sigmoid resection. No enlarged lymph nodes are identified although evaluation is suboptimal given expected mild postsurgical findings. There is infiltration and small amount of fluid within the operative bed. There is no well-defined collection to suggest an abscess. There is gas within the bladder with a Woody balloon. A Ames drain within the laparotomy site is noted. There is a surgical FREDA drain. No suspicious osseous lesion is identified. IMPRESSION: 1. Status post sigmoid resection. Mild infiltration and fluid are expected findings in the early postoperative period. 2. No convincing evidence for metastatic disease although evaluation is suboptimal given postoperative changes. 3. 4.1 x 3 cm mass-like abnormality along the superior aspect of the left kidney. Although somewhat unusual, a renal etiology is favored and this may reflect a neoplasm such as renal cell carcinoma. In the absence of prior imaging studies, a renal protocol CT following recovery from this surgery is recommended. 4. Mildly distended, gas-filled loops of small bowel which favors an ileus. Electronically signed by: Geraldo Domínguez M.D. 12/27/2016 10:37 AM Dictated Date/Time: 12/27/2016 10:22 AM
[2016-12-27] MEDS: PANTOprazole INJ 40 MG in SYRINGE 0 ML IV SCH (10:40)
[2016-12-27] MEDS: CLOPIDOGREL BISULFATE 75 MG TAB PO SCH (10:40)
--- NOTE | 2016-12-27 11:36 | NEUROLOGY CONSULTATION ---
DATE OF CONSULTATION: 12/27/2016 DATE OF CONSULTATION: 12/27/2016. REQUESTED BY: Dr. Lane and Dr. Jansen. HISTORY OF PRESENT ILLNESS: Nenita is 61 years old, is a patient of Dr. Rich but for years was uninsured and really did not pay much attention to her overall health. She had TIA-like event apparently last year with some transient numbness of her left side, was seen in the ER, was never admitted and really did not follow up with her primary care physician. She then was seen after she acquired some insurance and was put through some health screening and was found to have colon cancer based on the biopsy of a polyp in October and was then admitted to the hospital for resection of her colon and had this procedure done on the . She was coming out of anesthesia. There was some transient left-sided weakness. A CT scan was done showing no particular abnormalities and the deficits cleared, but then yesterday they recurred. She was apparently resistant to having scanning done but eventually further evaluation yielded evidence for multiple areas of right hemispheric infarction in addition to middle cerebral artery and a CTA revealed multiple areas of high grade stenosis and ashort segment occulsion in the intercavernous portion of the internal carotid artery on the right. There is also to a lesser degree intracranial internal carotid stenoses on the left and also in the right vertebral artery. I was contacted by Dr. Walker night I suggested that the stroke service at [facility] be consulted and they of course have agreed that TPA was not indicated here. She is now in the unit, is being seen by the ICU staff and I have been contacted by Dr. Lane at least 1 time by phone and now I am able to evaluate the patient clinically. PAST MEDICAL HISTORY: Reveals hypertension, colonic cancer, morbid obesity, dyslipidema and now the cerebrovascular accidents occurring in the setting of a prior TIAmin a similar distribution least by history last year. CURRENT MEDICATION LIST: Includes amlodipine, losartan, labetalol, aspirin, hydralazine as needed, and I believe Plavix is going to be started. She is also on Zofran as needed. I refer the reader to the emr for more details ALLERGIES: There are no listed drug allergies. FAMILY HISTORY: Noncontributory. SOCIAL HISTORY: Reveals her to be a nonsmoker, minimal consumer of ethanol and to be . The vital signs and general examination are as per the multiple notes from the internial medicine service and the ICU staff At this point, her neurologic examination reveals Nenita to be alert, cooperative, oriented. She seems aware of her left hemiparesis. She has some preferential deviation of the head to the right even when I am speaking to her from the left side but will roll over and make eye contact and on that occasion has minor left motor neuron facial paresis. No demonstrable visual field cuts and no visual neglect. Speech is clear. Tongue protrudes in the midline. Eye movements are full. I do not hear any carotid bruits. She has a pretty dense left hemiparesis involving the arm and leg with just a flicker of movement in the left shoulder. Reflexes are generally hypoactive throughout. There is no emerging hypertonicity as yet. The left toe sign is upgoing, Briseida's sign is indeterminate on the left. Sensory examination is intact to primary modalities, but there is a significant degree of neglect of bilaterally presented stimuli on the left. I reviewed the MRI scans, image george and reports, discussed the case. At this point we have a woman who has intracranial atheromatous disease bilaterally, worse on the right with an intracranial ica occlusion with distal reconstatution of flow via collateral channels and now symptomatic with a probable series of embolic phenomenon involving all major divisions of the right middle cerebral artery. The lesions in and of themselves are relatively small, but they are scattered and in critical areas and some are deep and will involve the motor pathways. Prognosis for recovery is indeterminate here but may not be that bad with more time. Unfortunately, this also is in the setting of what appears to be metastatic colon cancer and her overall prognosis needs to be weighed in this setting as well. Whether or not the adenocarcinoma is contributing to a degree of hypercoagulability is an academic question at this point. She is being evaluated for possible recurrent atrial fibrillation as she was in it transiently but the strokes are better explained on the basis of the localized intracranial occlusion. She has had appropriate advice from the [facility] stroke team regarding head of bed elevation, blood pressure maintenance, etc. and at this point I am just going to suggest dual antiplatelet therapy as this is the treatment of choice for intracranial atherosclerotic disease. Use of novel anticoagulants or Coumadin in this setting really confers more risk of bleeding than benefit. I will be checking with her tomorrow. We will see what the results of some of the intraoperative biopsies in the liver, etc. reveal but I suspect this woman does have metastatic colon cancer. She will clearly need some rehabilitation efforts, but all this needs to be held until she is recovered from her surgery and is cleared to be discharged by the surgical and medical teams. LG
--- NOTE | 2016-12-27 13:07 | ECHOCARDIOGRAM REPORT ---
*NOTICE TO RECEIVING LIBERTARIAN AGENCY This information is strictly Confidential and protected under [place] law. [place] law prohibits you from making any further disclosure of this information unless further disclosure is expressly permitted by the written consent of the person to whom it pertains or is authorized by law. A general authorization for the release of medical or other information is not sufficient for this purpose. Hospital accepts no responsibility if the information is made available to any other person, INCLUDING THE PATIENT. Interpretation Summary * Name: KENNA WHITMAN Study Date: 12/27/2016 09:56 AM BP: 172/64 mmHg * Patient Location: .MSICU\S\E103\S\1 HR: 70 * : 1955 (M/d/yy) Gender: Female Height: 64 in * Age: 61 yrs Ethnicity: CA Weight: 267 lb * Ordering Physician: Jodi Riddle * Referring Physician: Terrence Núñez * Performed By: Julieta Balderrama RDCS * * Reason For Study: Cerebral ischemia/embolus * BSA: 2.2 m2 * The study was technically limited. * There is no comparison study available. * -- Conclusions -- * Ejection Fraction = 65-70%. * There is mild concentric left ventricular hypertrophy. * Diastolic dysfunction, Grade II (pseudonormalization pattern). * Aortic valve sclerosis mild, without significant aortic valvular stenosis. Procedure Details * A complete two-dimensional transthoracic echocardiogram was performed (2D, M-mode, Doppler and color flow Doppler). * A saline contrast injection was performed to assess for cardiac shunting. * The injection was performed through an intravenous line in the left arm. * The attending nurse who injected the saline contrast was Julia Galvez RN. * A total of 20 cc of agitated saline was given. * Contrast was injected into an intravenous site in the left arm. * One vial of Definity ultrasound contrast was diluted in normal saline to a total volume of 10 ml. A total of '2' ml of solution was administered during imaging. * Lot # [id number] of Definity utilized for procedure. * Expiration date FEB 03. * The attending nurse who injected the contrast agent was Julia Galvez RN. * A contrast injection of Definity was performed to improve assessment of LV function. Left Ventricle * The left ventricle is normal in size. * There is no thrombus. * There is mild concentric left ventricular hypertrophy. * Ejection Fraction = 65-70%. * Left ventricular systolic function is normal. * The left ventricular wall motion is normal. Right Ventricle * The right ventricle is normal size. * The right ventricular systolic function is normal as assessed by tricuspid annular plane systolic excursion (TAPSE) (normal >1.5 cm). Atria * The left atrial size is normal. * Right atrial size is normal. * No evidence of interatrial shunt with injection of agitated saline, however, visualization was suboptimal . Mitral Valve * There is mild mitral annular calcification. * There is no mitral valve stenosis. * Significant mitral regurgitation is absent. Tricuspid Valve * The tricuspid valve is normal. * There is no tricuspid stenosis. * Significant tricuspid regurgitation is absent. Aortic Valve * The aortic valve is trileaflet. * Aortic valve sclerosis mild, without significant aortic valvular stenosis. * Aortic stenosis is absent. * There is no significant aortic regurgitation. Pulmonic Valve * The pulmonary valve is not well seen, but the Doppler examination is normal without significant regurgitation or stenosis. Great Vessels * The aortic root and proximal ascending aorta are normal sized. Pericardium/Pleural * There is no pericardial effusion. Great Vessels * Normal inferior vena cava diameter and respiratory variation suggests normal central venous pressure. Left Ventricular Diastolic Function * Diastolic dysfunction, Grade II (pseudonormalization pattern). MMode 2D Measurements and Calculations IVSd 1.3 cm LVIDd 4.5 cm LVIDs 2.7 cm LVPWd 1.2 cm IVS/LVPW 1.0 FS 39.7 % EDV(Teich) 93.3 ml ESV(Teich) 27.7 ml EF(Teich) 70.3 % EDV(cubed) 92.2 ml ESV(cubed) 20.3 ml EF(cubed) 78.0 % LV mass(C)d 206.9 grams LV mass(C)dI 93.6 grams/m\S\2 SV(Teich) 65.6 ml SI(Teich) 29.7 ml/m\S\2 SV(cubed) 71.9 ml SI(cubed) 32.5 ml/m\S\2 Ao root diam 2.9 cm Ao root area 6.6 cm\S\2 ACS 1.9 cm LA dimension 3.6 cm asc Aorta Diam 2.5 cm LA/Ao 1.2 LVOT diam 2.0 cm LVOT area 3.2 cm\S\2 LVAd ap4 29.2 cm\S\2 LVLd ap4 8.5 cm EDV(MOD-sp4) 79.1 ml EDV(sp4-el) 85.1 ml LVAs ap4 13.7 cm\S\2 LVLs ap4 6.3 cm ESV(MOD-sp4) 23.4 ml ESV(sp4-el) 25.0 ml EF(MOD-sp4) 70.4 % EF(sp4-el) 70.7 % LVAd ap2 25.0 cm\S\2 LVLd ap2 7.7 cm EDV(MOD-sp2) 63.2 ml EDV(sp2-el) 68.4 ml LVAs ap2 11.6 cm\S\2 LVLs ap2 6.4 cm ESV(MOD-sp2) 16.9 ml ESV(sp2-el) 17.7 ml EF(MOD-sp2) 73.3 % EF(sp2-el) 74.1 % LVLd %diff -10.07 % EDV(MOD-bp) 73.5 ml LVLs %diff 0.69 % ESV(MOD-bp) 20.0 ml EF(MOD-bp) 72.8 % SV(MOD-sp4) 55.7 ml SI(MOD-sp4) 25.2 ml/m\S\2 SV(MOD-sp2) 46.3 ml SI(MOD-sp2) 20.9 ml/m\S\2 SV(MOD-bp) 53.5 ml SI(MOD-bp) 24.2 ml/m\S\2 SV(sp4-el) 60.1 ml SI(sp4-el) 27.2 ml/m\S\2 SV(sp2-el) 50.6 ml SI(sp2-el) 22.9 ml/m\S\2 Doppler Measurements and Calculations MV E max anh 120.3 cm/sec MV A max anh 104.3 cm/sec MV E/A 1.2 MV dec time 0.25 sec Ao V2 max 183.2 cm/sec Ao max PG 13.4 mmHg Ao max PG (full) 4.6 mmHg ELAINA(V,A) 2.6 cm\S\2 ELAINA(V,D) 2.6 cm\S\2 LV V1 max PG 8.8 mmHg LV V1 max 148.2 cm/sec PA V2 max 126.2 cm/sec PA max PG 6.4 mmHg PA acc slope 567.0 cm/sec\S\2 PA acc time 0.15 sec PA pr(Accel) 10.9 mmHg
[2016-12-27] MEDS: MoRPHine SULFATE 4 MG/ML 1 ML CARP\\VIAL IV PRN (13:59)
--- NOTE | 2016-12-27 15:48 | Progress Note ---
Medicine Progress Note Date & Time of Visit: Dec 27, 2016 at 15:18. Subjective Pt was seen and examined Lying in bed with no distress with at bed side Pt still unable to move or lift her left side extremities Able to feel that I touched her left side of her extremities She said that she is feeling uncomfortable now because the way she is lying in the bed Denies any chest pain, palpitation, dizziness, and sob Objective Last 8 Hrs Date Time Temp Pulse Resp B/P (MAP) Pulse Ox O2 Delivery O2 Flow Rate FiO2 12/27/16 14:00 64 16 198/73 (114) 94 Nasal Cannula 4.0 12/27/16 12:00 Nasal Cannula 3.0 94 12/27/16 12:00 37.0 82 22 181/80 (113) 94 Nasal Cannula 3.0 12/27/16 10:00 61 16 186/82 (116) 93 Nasal Cannula 4.0 12/27/16 08:00 37.3 70 18 172/64 (100) 96 Nasal Cannula 4.0 12/27/16 08:00 Nasal Cannula 4.0 92 Physical Exam: General- No acute distress Head- atraumatic Eyes- PERRL, EOMI ENT- oropharynx clear Neck- supple, no JVD Lungs- clear to auscultation Heart- regular rhythm Abdomen- normal bowel sounds, soft Extremities- no calf tenderness Neuro- alert, oriented x 3; PERRL, EOMI; no facial palsy;speech fluent, follow commands left upper and lower ext weakness 0/5. decrease sensation in the left sided Skin- warm & dry Laboratory Results: Last 24 Hours Test 12/26/16 17:58 12/26/16 23:35 12/27/16 06:08 12/27/16 06:30 Bedside Glucose 134 mg/dl 142 mg/dl 134 mg/dl White Blood Count 11.57 K/uL Red Blood Count 3.84 M/uL Hemoglobin 11.3 g/dL Hematocrit 34.3 % Mean Corpuscular Volume 89.3 fL Mean Corpuscular Hemoglobin 29.4 pg Mean Corpuscular Hemoglobin Concent 32.9 g/dl Platelet Count 241 K/uL Mean Platelet Volume 9.4 fL Neutrophils (%) (Auto) 78.8 % Lymphocytes (%) (Auto) 11.7 % Monocytes (%) (Auto) 8.3 % Eosinophils (%) (Auto) 0.6 % Basophils (%) (Auto) 0.2 % Neutrophils # (Auto) 9.12 K/uL Lymphocytes # (Auto) 1.35 K/uL Monocytes # (Auto) 0.96 K/uL Eosinophils # (Auto) 0.07 K/uL Basophils # (Auto) 0.02 K/uL RDW Standard Deviation 45.4 fL RDW Coefficient of Variation 13.8 % Immature Granulocyte % (Auto) 0.4 % Immature Granulocyte # (Auto) 0.05 K/uL Sodium Level 137 mmol/L Potassium Level 4.1 mmol/L Chloride Level 100 mmol/L Carbon Dioxide Level 29 mmol/L Anion Gap 8.0 mmol/L Blood Urea Nitrogen 7 mg/dl Creatinine 0.48 mg/dl Est Creatinine Clear Calc Drug Dose 155.3 ml/min Estimated GFR () 121.8 Estimated GFR (Non- 105.1 BUN/Creatinine Ratio 14.3 Random Glucose 141 mg/dl Calcium Level 8.1 mg/dl Phosphorus Level 2.5 mg/dl Magnesium Level 2.0 mg/dl Test 12/27/16 11:27 Bedside Glucose 120 mg/dl Assessment & Plan Acute CVA Left Sided Numbness and Weakness -S/P Laparoscopic lysis of dense adhesions, sigmoid colon resection for side - end anastomosis by Dr Ramos. -Stroke alert called because pt was found to have left side weakness and numbness associated with facial droop -NIH Stroke scale- 17. Not a TPA candidate due to post operative status -MRI of the brain showwed no evidence for an acute ischemic insult. one old periventricular infarct throughout both cerebral hemispheres -CTA head showed short segment occlusion of the supraclinoid right ICA with distal reconstitution is chronic finding -CTA neck showed no acute finding -CT head negative for intracranial abnormality 01/05 Acute CVA Left Sided Numbness and Weakness Repeat MRI of the head done last night after pt experience new onset of stroke like symptoms similar to the prior. Refused start MRI at first, but finally agreed to get it done after multiple attempt to make her agree. MRI showed 1. Multifocal areas of restricted water diffusion involving portions of the right frontal lobe, right basal ganglia, and right parietal lobe. The findings are indicative of an acute right MCA distribution infarct. 2. Abnormal/absent flow void within the petrous and supraclinoid right internal carotid artery, consistent with slow flow/occlusion. Stroke alert called, but patient again did not meet criteria for TPA due to recent surgery Neurology consulted recommend to start dual antiplatelet therapy with plavix and aspirin will monitor closely for any bleeding carotid u/s pending PT/OT once surgically stable Speech eval Will need rehab once medically stable Brief Episodes of P. Afib Seen on Tele monitor Now on NSR rate is controlled cardiology recommend to start low dose of metoprolol 12.5 But in the setting of acute CVA, need to allow permissive HTN Plavix and aspirin started will consider to start low dose of heparin IV if ok by neuro due to risk of intracranial hemorrhage Echo done showed: Ejection Fraction = 65-70%. * There is mild concentric left ventricular hypertrophy. * Diastolic dysfunction, Grade II (pseudonormalization pattern). * Aortic valve sclerosis mild, without significant aortic valvular stenosis. Colon Carcinoma S/P day 1 Laparoscopic lysis of dense abdominal adhesions, open sigmoid colon resection by Dr. Núñez continue pain control NGT on place Incentive spirometry HTN- -Permissive hypertension, will let BP run high btw 170-180 Hold amlodipine, losartan DM-2, NIDDM -Hold metformin -ISS, Accuchecks DYSLIPIDEMIA -On atorvastatin 40 mg MORBID OBESITY DVT PROPHYLAXIS Will start on heparin subq Talk to neuro, he advised if we start heparin subq for DVT px that we need to hold the antiplatelet med to prevent any bleeding. We can resume the plavix after the CT head. DISPOSITION Will transfer to Tele Consultants: [facility] Procedures: Laparoscopic lysis of dense adhesions, sigmoid colon resection for side Current Inpatient Medications: Current Inpatient Medications Medications (Trade) Dose Ordered Sig/Naila Route Start Time Stop Time Status Last Admin Dose Admin Ondansetron HCl (Zofran Inj) 4 mg Q6H PRN IV 12/25/16 10:45 01/24/17 10:44 Future hold 12/26/16 17:35 4 MG Glucose (Glucose 40% Gel) 15-30 GRAMS 15 GRAMS... UD PRN PO 12/25/16 10:45 01/24/17 10:44 Glucose (Glucose Chew Tab) 4-8 Tablets 4 Tabl... UD PRN PO 12/25/16 10:45 01/24/17 10:44 Dextrose (Dextrose 50% 50ML Syringe) 25-50ML OF 50% DW IV FOR... UD PRN IV 12/25/16 10:45 01/24/17 10:44 Glucagon (Glucagon Inj) 1 mg UD PRN SQ 12/25/16 10:45 01/24/17 10:44 Pantoprazole Sodium 40 mg/ Syringe 10 ml @ 5 mls/min DAILY@11 IV 12/26/16 11:00 01/25/17 10:59 12/27/16 10:40 5 MLS/MIN Insulin Aspart (novoLOG ASPART) SLIDING SCALE If C... Q6 SC 12/25/16 18:00 01/24/17 17:59 12/26/16 23:48 1 UNITS Acetaminophen 100 ml @ 400 mls/hr Q8H PRN IV 12/25/16 16:30 01/24/17 16:29 12/27/16 09:00 400 MLS/HR Morphine Sulfate (MoRPHine SULFATE INJ) 4 mg Q1H PRN IV 12/26/16 09:30 01/09/17 09:29 12/27/16 13:59 4 MG Sodium Chloride 1,000 ml @ 100 mls/hr Q10H IV 12/27/16 01:15 01/26/17 01:14 12/27/16 10:40 100 MLS/HR Clopidogrel Bisulfate (plAVix TAB) 75 mg QAM PO 12/27/16 09:00 01/26/17 08:59 12/27/16 10:40 75 MG Ioversol (Optiray 320) 100 ml UD PRN IV 12/27/16 09:15 12/31/16 09:14
--- NOTE | 2016-12-27 16:12 | DIAGNOSTIC IMAGING REPORT ---
CAROTID ARTERY ULTRASOUND CLINICAL HISTORY: Acute CVA , rt carotid stenosis COMPARISON STUDY: CTA of the neck December 25, 2016. TECHNIQUE: Real-time, grayscale, and color Doppler sonography of the carotid and vertebral arteries was performed. Images were viewed in the transverse and longitudinal planes. FINDINGS: There is moderate atherosclerotic plaque. Velocity measurements are listed below. COMMON CAROTID PEAK SYSTOLIC VELOCITY (CM/S): RIGHT 151 LEFT 125 ICA PEAK SYSTOLIC VELOCITY (CM/S): RIGHT 69 LEFT 72 Systolic ratios between the internal to common carotid arteries were normal. Diminished diastolic flow is noted within the right internal carotid artery. Antegrade flow is seen in the vertebral arteries. The external carotid arteries are patent. Blood pressures could not be obtained in this patient. IMPRESSION: No sonographic evidence of a hemodynamically significant stenosis within the proximal to mid cervical internal carotid arteries. However, high resistance waveform within the right internal carotid artery is likely due to distal stenosis/occlusion of the distal right ICA, as shown on prior CTA of the head. Electronically signed by: Geraldo Domínguez M.D. 12/27/2016 4:11 PM Dictated Date/Time: 12/27/2016 4:07 PM
[2016-12-27] MEDS: LABETALOL HCL IV 5 MG/ML 20ML IV PRN ×3 (19:16→23:11)
[2016-12-27] MEDS ORDERED: PHARMACIST DISCHARGE MED REC CONSULT PRN (19:30)
[2016-12-28] VITALS (32 sets, daily range): BP systolic 150–201; BP diastolic 59–92; PULSE 55–95; TEMP 36.8–37.3; O2SAT 86–99
[2016-12-28] MEDS: LABETALOL HCL IV 5 MG/ML 20ML IV PRN ×5 (02:35→21:20)
[2016-12-28] MEDS: INSULIN ASPART 100 UNITS/ML 3 ML PEN SC SCH ×5 (06:00→22:00)
[2016-12-28 06:02] LABS: BASO % 0.1 %; BASO ABS # 0.01 K/uL (0-0.2); COMPLETE YES; EOS % 1.2 %; HEMATOCRIT 37.1 % (37-47); IG% 0.2 %; LYMPH % 13.5 %; LYMPH ABS # 1.54 K/uL (1.2-3.4); MEAN CELL VOLUME 89.2 fL (80-100); MEAN CORPUSCULAR HEMOGLOBIN 28.4 pg (25-34); MEAN CORPUSCULAR HGB CONC 31.8 g/dl (32-36); PLATELET COUNT 256 K/uL (130-400); RED BLOOD COUNT 4.16 M/uL (4.2-5.4); WHITE BLOOD COUNT 11.43 K/uL (4.8-10.8)
[2016-12-28] MEDS: HEPARIN SOD 5000 UNIT/0.5 ML CARP SQ SCH (06:16)
[2016-12-28 06:28] LABS: BUN/CREATININE RATIO 18.8 (10-20); CALCIUM 8.4 mg/dl (8.5-10.1); CREATININE 0.46 mg/dl (0.60-1.20); MAGNESIUM 2.1 mg/dl (1.8-2.4); POTASSIUM 4.5 mmol/L (3.5-5.1)
[2016-12-28 06:40] LABS: CHOLESTEROL/HDL RATIO 2.9; PHOSPHORUS 3.1 mg/dl (2.5-4.9)
[2016-12-28] MEDS: SODIUM CHLORIDE 0.9% 1000ML 1,000 ML IV SCH ×2 (07:52→17:58)
[2016-12-28] MEDS ORDERED: ASPIRIN 81 MG ECTAB PO STA (07:53)
--- NOTE | 2016-12-28 08:20 | Critical Care Progress Note ---
Critical Care Progress Note Date of Service Dec 28, 2016. ICU Day ICU Day Number: [address] Subjective No chest pain no shortness of breath, has moved bowels, very pleasant spirits. Encourage that she is able to move her left lower leg, not having much movement of the left upper extremity Objective Vital Signs - as noted Laboratory Data - as noted Physical Exam: General - NAD, when I walk into the room she is sitting upright in bed reading the book 1776 with her right hand. Eyes - PERRL, EOMI No icterus, gaze conjugate ENT - Mucosa moist, no lesions or candidiasis Abdomen - BS hypoactive, no bruits noted, tympanic to percussion, soft, nontender, nondistended, no organomegaly, Incision Site Dressing clean, dry, and intact Extremities - No edema, pedal pulses intact, Neuro - A&OX4, Strength 5 out of 5 strength in the right upper and lower extremities, 3 out of 5 strength of the left lower extremity. One out of 5 strength (fasciculation) of the left upper extremity CN:PERRL, EOMI, no significant facial asymmetry Current SOFA Score SOFA Score Response (Comments) Value Platelets (x10) > 150 0 Bilirubin (mg/dL) < 1.2 0 Snook Coma Score 15 0 Level of Hypotension No Hypotension 0 Creatinine (mg/dL) < 1.2 0 Total 0 Assessment & Plan (1) Internal carotid artery stenosis (2) Intracranial carotid stenosis, bilateral (3) Vertebral artery stenosis, symptomatic, without infarction (4) TIA (transient ischemic attack) (5) Hypertension (6) Colon polyp (7) Acute right MCA stroke Neuro: * Maintain SBP 160-170's, 180's permissible * 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, will start low-dose beta aline today * Neurology recommendations reviewed\ * Past bedside swallow study * Would benefit from aggressive rehabilitation, PT and OT consult Cardiology: * Monitor on telemetry * History of paroxysmal atrial fibrillation, currently normal sinus rhythm * Restarting metoprolol 12.5 twice a day GI: * Plan to undergo abdominal/pelvis CT in the morning for staging of liver metastasis adenocarcinoma * Pathology still pending * Will start clear diet today : * Strict I's and O's * Woody in place to gravity * Monitor daily labs/replace electrolyte's per protocol Pulmonary: * Weaned off supplemental O2, and 7 spirometry Endocrine: * Continue sliding scale with NovoLog * Continue to hold metformin * Blood sugars within acceptable limits Heme: * DVT prophylaxis: Heparin 5000 units every 8 * Dual antiplatelet therapy * No role for systemic anticoagulation and subacute stroke at this time. ID: * White blood cells decreasing now 12.4 * Afebrile * Received prophylactic antibiotics on date of surgery * Monitor fever curve and follow daily CBC Access: Maintain 2 PIVs; No current indication for Central Access Stable for downgraded to telemetry status. Consults & Procedures Consultants: Dr Leone [facility] Hospitalist Neuro: Dr. Cruz Cardiology: Dr. Henry Vascular surgery: Dr. Salinas (Admitting) General surgery: Dr. Núñez Procedures: 12/25/16, Dr Núñez: Laparoscopy, lysis of dense abdominal adhesions, approximately 1/3 of the operative time, sigmoid colon resection with primary side-to-end anastomosis. Data Medications: Current Inpatient Medications Medications (Trade) Dose Ordered Sig/Naila Route Start Time Stop Time Status Last Admin Dose Admin Ondansetron HCl (Zofran Inj) 4 mg Q6H PRN IV 12/25/16 10:45 01/24/17 10:44 Future hold 12/26/16 17:35 4 MG Glucose (Glucose 40% Gel) 15-30 GRAMS 15 GRAMS... UD PRN PO 12/25/16 10:45 01/24/17 10:44 Glucose (Glucose Chew Tab) 4-8 Tablets 4 Tabl... UD PRN PO 12/25/16 10:45 01/24/17 10:44 Dextrose (Dextrose 50% 50ML Syringe) 25-50ML OF 50% DW IV FOR... UD PRN IV 12/25/16 10:45 01/24/17 10:44 Glucagon (Glucagon Inj) 1 mg UD PRN SQ 12/25/16 10:45 01/24/17 10:44 Pantoprazole Sodium 40 mg/ Syringe 10 ml @ 5 mls/min DAILY@11 IV 12/26/16 11:00 01/25/17 10:59 12/27/16 10:40 5 MLS/MIN Insulin Aspart (novoLOG ASPART) SLIDING SCALE If C... Q6 SC 12/25/16 18:00 01/24/17 17:59 12/26/16 23:48 1 UNITS Acetaminophen 100 ml @ 400 mls/hr Q8H PRN IV 12/25/16 16:30 01/24/17 16:29 12/27/16 09:00 400 MLS/HR Morphine Sulfate (MoRPHine SULFATE INJ) 4 mg Q1H PRN IV 12/26/16 09:30 01/09/17 09:29 12/27/16 13:59 4 MG Sodium Chloride 1,000 ml @ 100 mls/hr Q10H IV 12/27/16 01:15 01/26/17 01:14 12/28/16 07:52 100 MLS/HR Clopidogrel Bisulfate (plAVix TAB) 75 mg QAM PO 12/27/16 09:00 01/26/17 08:59 Future Hold 12/27/16 10:40 75 MG Ioversol (Optiray 320) 100 ml UD PRN IV 12/27/16 09:15 12/31/16 09:14 Labetalol HCl (Normodyne IV) 5 mg Q1H PRN IV 12/27/16 17:15 01/26/17 17:14 12/28/16 06:17 5 MG Miscellaneous Information (Pharmacist Discharge Med Rec Consult) 1 ea UD PRN N/A 12/27/16 19:30 01/26/17 19:29 Heparin Sodium (Porcine) (Heparin Sq 5000 Unit/0.5ml) 5,000 unit Q8 SQ 12/28/16 06:00 01/27/17 05:59 12/28/16 06:16 5,000 UNIT Metoprolol Tartrate (Lopressor Tab) 12.5 mg BID PO 12/28/16 09:00 01/27/17 08:59 Amlodipine Besylate (Norvasc Tab) 5 mg QAM PO 12/28/16 09:00 01/27/17 08:59 UNV Vital Signs: Date Time Temp Pulse Resp B/P (MAP) Pulse Ox O2 Delivery O2 Flow Rate FiO2 12/28/16 06:02 36.8 63 16 198/90 (126) 96 Nasal Cannula 4.0 12/28/16 05:42 69 18 179/87 (117) 97 Nasal Cannula 4.0 12/28/16 05:02 64 17 180/79 (112) 93 Nasal Cannula 4.0 12/28/16 04:32 64 16 183/83 (116) 96 Nasal Cannula 4.0 12/28/16 04:07 92 Nasal Cannula 4.0 12/28/16 04:02 36.8 65 19 188/79 (115) 93 Nasal Cannula 4.0 12/28/16 03:32 66 17 189/78 (115) 96 Nasal Cannula 4.0 12/28/16 03:02 62 16 163/75 (104) 96 Nasal Cannula 4.0 12/28/16 02:32 66 17 192/84 (120) 91 Nasal Cannula 4.0 12/28/16 02:02 70 14 186/74 (111) 86 Nasal Cannula 4.0 12/28/16 01:32 64 18 187/75 (112) 91 Nasal Cannula 4.0 12/28/16 01:02 66 19 187/73 (111) 92 Nasal Cannula 4.0 12/28/16 00:32 68 16 163/75 (104) 93 Nasal Cannula 4.0 12/28/16 00:31 92 Nasal Cannula 4.0 12/28/16 00:16 37.2 12/28/16 00:02 68 16 158/75 (102) 97 Nasal Cannula 4.0 12/27/16 23:32 67 25 188/84 (118) 96 Nasal Cannula 4.0 12/27/16 23:19 63 15 178/80 (112) 97 Nasal Cannula 4.0 12/27/16 23:02 69 16 210/85 (126) 98 Nasal Cannula 4.0 12/27/16 22:02 71 15 179/93 (121) 91 Nasal Cannula 4.0 12/27/16 21:32 65 18 156/65 (95) 90 Nasal Cannula 3.0 12/27/16 21:10 67 19 201/85 (123) 90 Nasal Cannula 3.0 12/27/16 21:02 70 17 194/74 (114) 91 Nasal Cannula 3.0 12/27/16 20:12 92 Nasal Cannula 3.0 12/27/16 20:02 36.7 67 20 176/79 (111) 95 Nasal Cannula 3.0 12/27/16 19:25 71 20 172/71 (104) 95 Nasal Cannula 3.0 12/27/16 19:03 71 18 201/83 (122) 94 Nasal Cannula 3.0 12/27/16 19:02 66 17 218/81 (126) 93 Nasal Cannula 3.0 12/27/16 16:00 Nasal Cannula 3.0 94 12/27/16 16:00 36.7 70 16 194/78 (116) 94 Nasal Cannula 3.0 12/27/16 14:00 64 16 198/73 (114) 94 Nasal Cannula 4.0 12/27/16 12:00 Nasal Cannula 3.0 94 12/27/16 12:00 37.0 82 22 181/80 (113) 94 Nasal Cannula 3.0 12/27/16 10:00 61 16 186/82 (116) 93 Nasal Cannula 4.0 Laboratory Results: Last 24 Hours Test 12/27/16 11:27 12/27/16 17:07 12/28/16 00:11 12/28/16 05:46 Bedside Glucose 120 mg/dl 115 mg/dl 128 mg/dl White Blood Count 11.43 K/uL Red Blood Count 4.16 M/uL Hemoglobin 11.8 g/dL Hematocrit 37.1 % Mean Corpuscular Volume 89.2 fL Mean Corpuscular Hemoglobin 28.4 pg Mean Corpuscular Hemoglobin Concent 31.8 g/dl Platelet Count 256 K/uL Mean Platelet Volume 9.0 fL Neutrophils (%) (Auto) 77.0 % Lymphocytes (%) (Auto) 13.5 % Monocytes (%) (Auto) 8.0 % Eosinophils (%) (Auto) 1.2 % Basophils (%) (Auto) 0.1 % Neutrophils # (Auto) 8.80 K/uL Lymphocytes # (Auto) 1.54 K/uL Monocytes # (Auto) 0.92 K/uL Eosinophils # (Auto) 0.14 K/uL Basophils # (Auto) 0.01 K/uL RDW Standard Deviation 44.2 fL RDW Coefficient of Variation 13.6 % Immature Granulocyte % (Auto) 0.2 % Immature Granulocyte # (Auto) 0.02 K/uL Sodium Level 139 mmol/L Potassium Level 4.5 mmol/L Chloride Level 102 mmol/L Carbon Dioxide Level 30 mmol/L Anion Gap 7.0 mmol/L Blood Urea Nitrogen 9 mg/dl Creatinine 0.46 mg/dl Est Creatinine Clear Calc Drug Dose 162.0 ml/min Estimated GFR () 123.6 Estimated GFR (Non- 106.6 BUN/Creatinine Ratio 18.8 Random Glucose 122 mg/dl Calcium Level 8.4 mg/dl Phosphorus Level 3.1 mg/dl Magnesium Level 2.1 mg/dl Triglycerides Level 143 mg/dl Cholesterol Level 124 mg/dl HDL Cholesterol 43 mg/dl LDL Cholesterol, Calculated 52 mg/dl VLDL Cholesterol, Calculated 29 mg/dl Cholesterol/HDL Ratio 2.9 Test 12/28/16 05:49 Bedside Glucose 114 mg/dl
[2016-12-28] MEDS ORDERED: ACETAMINOPHEN 500 MG TAB PO PRN (08:30)
[2016-12-28] MEDS ORDERED: NURSING VERBAL MED ORDER ONE (08:45)
--- NOTE | 2016-12-28 08:58 | SURGERY PROGRESS NOTE ---
DATE: 12/28/2016 This is third postoperative day status post a laparoscopic lysis of dense abdominal adhesions, sigmoid colon resection. Nenita is alert, coherent and in no distress. She seems to be regaining some function in the left upper extremity. I asked her to squeeze my hand, her fingers are starting to abduct. The left lower extremity, the nurses said she has moved it a few times during the night. She seemed to be tolerating some fluid orally. Her last vitals showed a blood pressure of 36.8, pulse 63, respirations 16, blood pressure 190/90, O2 sats 96% on room air. Her I&O, drainage total from the Nico drainage is only 80 mL, urine output is 400. Laboratory george this morning her white count is 11.43. Hemoglobin is 11.8. There is a slight left shift. The chemistries showed a BUN of 9, creatinine 0.46. The abdomen, she is obese, but appears to be soft. The incision has got some ecchymosis, but the drain was removed. At this point we will start her on some clear liquids diet. Cut down on IV fluids. Neurology consultation was appreciated. Today we will try to get her out of bed.
[2016-12-28] MEDS: PANTOprazole SOD 40 MG TAB PO SCH ×2 (09:27→21:22)
[2016-12-28] MEDS ORDERED: AMLODIPINE BESYLATE 5 MG TAB PO SCH (09:30)
[2016-12-28] MEDS: METOPROLOL TARTRATE 25 MG TAB PO SCH ×2 (09:44→21:21)
--- NOTE | 2016-12-28 12:26 | PROGRESS NOTE ---
DATE: 12/28/2016 SUBJECTIVE: Nenita looks good today. She is sitting up in the chair. She is more aware of her deficits. She cannot move her left arm, swaying with the shoulder, but left leg function is much better than it was yesterday and she can kick out with the quadriceps and do some rapid repetitive motions. She is awake, alert, has no recall of the events that happened postoperatively and only vague recall of seeing me yesterday. There is a mild left upper motor neuron facial paralysis. Speech is perhaps slightly dysarthric. Eye movements are normal. The head and eye deviation that I saw yesterday was no longer evident. I cannot brass pickler a field cut today. She has a normal to slightly reduced sensation in her left arm and leg, but there is no neglect to bilaterally presented simultaneous cutaneous stimuli today. Reflexes may be getting a little brisker on the left and the toe sign is equivocally upgoing. The left arm is still fairly flaccid. At this point, she is now on some DVT prophylaxis with subQ heparin and one of her antiplatelet drugs i.e., the aspirin has been stopped. In light of the fact that there is total occlusion of the internal carotid at the level of the carotid siphon, all I would recommend is dual antiplatelet therapy once the heparin is stopped and I would not do this for much longer than 3 months and then get back to a single agent. It is hard to know what happened. She could have had a prior total occlusion with marginal collateral flow to the left hemisphere and then during the operative procedure with some transient hypotension could have become more symptomatic, but it actually sounds as though she has a series of these events and I am suspicious that this lesion that we now class as a total occlusion was previously a very high-grade stenosis and then in the perioperative period, threw a series of emboli and then became occluded probably due to hemorrhage into a plaque. All of this is academic, the management is going to be the same, i.e., dual antiplatelet therapy once the heparin is stopped for a period of 3 months and allowing her to maintain a somewhat higher than normal blood pressure, so that her collaterals supplying the right hemisphere are maintained. Neurology can take a look at her, probably 4-6 weeks after her rehabilitation stay is complete. I will drop by tomorrow and take a look at how she is doing and I will await and see if surgery will clear her for transfer to [facility]. I doubt that the trasnient a fib has anything to do with the current cva but certainly if she is found subsequently to have paroxysmal a fib then she may need a novel anticoagulant or even coumadin in which case the antiplatelet would not be needed This issue was discussed with Dr Diggs this afternoon [facility]
--- NOTE | 2016-12-28 13:30 | Cardiology Follow-Up ---
Subjective General Date of Service: Dec 28, 2016. Pt evaluation today including: conversation w/ patient, physical exam, chart review, lab review, review of studies, review of inpatient medication list History of Present Illness The patient is a 61 year old female seen in follow up. More alert today. Able to move her left foot. Denies CP or SOB. Brief milagros of paroxysmal atrial tachycardia this AM. No recurrent atrial fibrillation. Allergies Coded Allergies: BEE STING (Verified Allergy, Unknown, SWELLING - LOCALIZED AT STING AREA, 12/25/16) NO KNOWN DRUG ALLERGIES (Verified Allergy, Unknown, , 12/25/16) Social History Smoking Status: Never Smoker Hx Tobacco Use In Past Year?: No Hx Alcohol Use - Type And Amou: Yes (WEEKENDS/FEW DRINKS ) Hx Substance Use - Type And Am: No Review of Systems Respiratory: No cough, No wheezing, No shortness of breath, No dyspnea on exertion, No dyspnea at rest, No hemoptysis, No problem reported Cardiac: No chest pain, No orthopnea, No edema, No palpitations Physical Exam Vital Signs Last Vital Signs Documentation Date Time Temp Pulse Resp B/P (MAP) Pulse Ox O2 Delivery O2 Flow Rate FiO2 12/28/16 12:00 97 Nasal Cannula 4.0 12/28/16 12:00 59 20 173/73 (106) 12/28/16 08:00 37.3 12/27/16 16:00 94 Physical Exam Head: normocephalic Neck: supple, trachea midline Lungs: Auscultation: breath sounds normal, no wheezing, no rales/crackles, no rhonchi Cardiovascular: Heart Auscultation: RRR, normal S1, normal S2, no murmurs Abdomen: Inspection & Palpation: soft, non-distended, no tenderness, guarding & rebound Extremities: no cyanosis, no edema, no clubbing, no ulcers Neurologic: Gait & Station: pertinent finding (LUE paralysis) Assessment and Plan Assessment and Plan FINAL IMPRESSION: 1. Acute right sided cerebrovascular accident secondary to ARLYN occlusion. 2. Brief milagros of paroxysmal atrial fibrillation (22beats) 12/27/16 - no recurrence - possibly related to elevated catecholamines in secondary to acute CVA and post-operative state. 3. Brief milagros of paroxysmal atrial tachycardia today 4. Permissive hypertension in the setting of acute cerebrovascular accident. 5. Adenocarcinoma of the colon status post colon resection. 6. Diabetes type 2. PLAN AND RECOMMENDATIONS: I discussed case with Dr. Cruz of neurology. Plan for dual antiplatelet therapy at this time. If patient develops recurrent or sustained episode of atrial fibrillation would reconsider addition of anticoagulation. She will likely require a 14 - 30 day monitor an outpatient as well. The patient currently remains in sinus rhythm and tolerating low dose beta aline. I will continue to follow the patient during hospitalization. Laboratory Results Last 24 Hours Test 12/27/16 17:07 12/28/16 00:11 12/28/16 05:46 12/28/16 05:49 Bedside Glucose 115 mg/dl 128 mg/dl 114 mg/dl White Blood Count 11.43 K/uL Red Blood Count 4.16 M/uL Hemoglobin 11.8 g/dL Hematocrit 37.1 % Mean Corpuscular Volume 89.2 fL Mean Corpuscular Hemoglobin 28.4 pg Mean Corpuscular Hemoglobin Concent 31.8 g/dl Platelet Count 256 K/uL Mean Platelet Volume 9.0 fL Neutrophils (%) (Auto) 77.0 % Lymphocytes (%) (Auto) 13.5 % Monocytes (%) (Auto) 8.0 % Eosinophils (%) (Auto) 1.2 % Basophils (%) (Auto) 0.1 % Neutrophils # (Auto) 8.80 K/uL Lymphocytes # (Auto) 1.54 K/uL Monocytes # (Auto) 0.92 K/uL Eosinophils # (Auto) 0.14 K/uL Basophils # (Auto) 0.01 K/uL RDW Standard Deviation 44.2 fL RDW Coefficient of Variation 13.6 % Immature Granulocyte % (Auto) 0.2 % Immature Granulocyte # (Auto) 0.02 K/uL Sodium Level 139 mmol/L Potassium Level 4.5 mmol/L Chloride Level 102 mmol/L Carbon Dioxide Level 30 mmol/L Anion Gap 7.0 mmol/L Blood Urea Nitrogen 9 mg/dl Creatinine 0.46 mg/dl Est Creatinine Clear Calc Drug Dose 162.0 ml/min Estimated GFR () 123.6 Estimated GFR (Non- 106.6 BUN/Creatinine Ratio 18.8 Random Glucose 122 mg/dl Calcium Level 8.4 mg/dl Phosphorus Level 3.1 mg/dl Magnesium Level 2.1 mg/dl Triglycerides Level 143 mg/dl Cholesterol Level 124 mg/dl HDL Cholesterol 43 mg/dl LDL Cholesterol, Calculated 52 mg/dl VLDL Cholesterol, Calculated 29 mg/dl Cholesterol/HDL Ratio 2.9 Test 12/28/16 11:27 Bedside Glucose 114 mg/dl
--- NOTE | 2016-12-28 15:32 | Progress Note ---
Medicine Progress Note Date & Time of Visit: Dec 28, 2016 at 15:03. Subjective Pt was seen and examined sitting in chair comfortable with at bedside Pt started to lift her left LE she said that she feels better denies any chest pain, palpitation, dizziness and sob Objective Last 8 Hrs Date Time Temp Pulse Resp B/P (MAP) Pulse Ox O2 Delivery O2 Flow Rate FiO2 12/28/16 14:00 62 18 170/72 (104) 95 Nasal Cannula 4.0 12/28/16 12:00 97 Nasal Cannula 4.0 12/28/16 12:00 59 20 173/73 (106) 97 Nasal Cannula 4.0 12/28/16 10:00 62 20 187/92 (123) 96 Nasal Cannula 4.0 12/28/16 08:00 37.3 64 18 171/76 (107) 94 Nasal Cannula 4.0 12/28/16 08:00 94 Nasal Cannula 4.0 Physical Exam: General- No acute distress Head- atraumatic Eyes- PERRL, EOMI ENT- oropharynx clear Neck- supple, no JVD Lungs- clear to auscultation Heart- regular rhythm Abdomen- normal bowel sounds, soft Extremities- no calf tenderness Neuro- alert, oriented x 3; PERRL, EOMI; no facial palsy;speech fluent, follow commands left upper Ext still unable to lift, but 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 Left lower ext weakness 3/5 ( able to lift the Left LE) Skin- warm & dry Laboratory Results: Last 24 Hours Test 12/27/16 17:07 12/28/16 00:11 12/28/16 05:46 12/28/16 05:49 Bedside Glucose 115 mg/dl 128 mg/dl 114 mg/dl White Blood Count 11.43 K/uL Red Blood Count 4.16 M/uL Hemoglobin 11.8 g/dL Hematocrit 37.1 % Mean Corpuscular Volume 89.2 fL Mean Corpuscular Hemoglobin 28.4 pg Mean Corpuscular Hemoglobin Concent 31.8 g/dl Platelet Count 256 K/uL Mean Platelet Volume 9.0 fL Neutrophils (%) (Auto) 77.0 % Lymphocytes (%) (Auto) 13.5 % Monocytes (%) (Auto) 8.0 % Eosinophils (%) (Auto) 1.2 % Basophils (%) (Auto) 0.1 % Neutrophils # (Auto) 8.80 K/uL Lymphocytes # (Auto) 1.54 K/uL Monocytes # (Auto) 0.92 K/uL Eosinophils # (Auto) 0.14 K/uL Basophils # (Auto) 0.01 K/uL RDW Standard Deviation 44.2 fL RDW Coefficient of Variation 13.6 % Immature Granulocyte % (Auto) 0.2 % Immature Granulocyte # (Auto) 0.02 K/uL Sodium Level 139 mmol/L Potassium Level 4.5 mmol/L Chloride Level 102 mmol/L Carbon Dioxide Level 30 mmol/L Anion Gap 7.0 mmol/L Blood Urea Nitrogen 9 mg/dl Creatinine 0.46 mg/dl Est Creatinine Clear Calc Drug Dose 162.0 ml/min Estimated GFR () 123.6 Estimated GFR (Non- 106.6 BUN/Creatinine Ratio 18.8 Random Glucose 122 mg/dl Calcium Level 8.4 mg/dl Phosphorus Level 3.1 mg/dl Magnesium Level 2.1 mg/dl Triglycerides Level 143 mg/dl Cholesterol Level 124 mg/dl HDL Cholesterol 43 mg/dl LDL Cholesterol, Calculated 52 mg/dl VLDL Cholesterol, Calculated 29 mg/dl Cholesterol/HDL Ratio 2.9 Test 12/28/16 11:27 Bedside Glucose 114 mg/dl Assessment & Plan Acute CVA Left Sided Numbness and Weakness -S/P Laparoscopic lysis of dense adhesions, sigmoid colon resection for side - end anastomosis by Dr Ramos. -Stroke alert called because pt was found to have left side weakness and numbness associated with facial droop -NIH Stroke scale- 17. Not a TPA candidate due to post operative status -MRI of the brain showwed no evidence for an acute ischemic insult. one old periventricular infarct throughout both cerebral hemispheres -CTA head showed short segment occlusion of the supraclinoid right ICA with distal reconstitution is chronic finding -CTA neck showed no acute finding -CT head negative for intracranial abnormality 01/05 Acute CVA Left Sided Numbness and Weakness Repeat MRI of the head done last night after pt experience new onset of stroke like symptoms similar to the prior. Refused start MRI at first, but finally agreed to get it done after multiple attempt to make her agree. MRI showed 1. Multifocal areas of restricted water diffusion involving portions of the right frontal lobe, right basal ganglia, and right parietal lobe. The findings are indicative of an acute right MCA distribution infarct. 2. Abnormal/absent flow void within the petrous and supraclinoid right internal carotid artery, consistent with slow flow/occlusion. Stroke alert called, but patient again did not meet criteria for TPA due to recent surgery Neurology consulted recommend to start dual antiplatelet therapy with plavix and aspirin will monitor closely for any bleeding speech therapy carotid u/s showed no sonographic evidence of a hemodynamically significant stenosis within the proximal to mid cervical internal carotid arteries. high resistance waveform within the right internal carotid artery is likely due to distal stenosis/occlusion of the distal right ICA Continue Dual antiplatelet therapy for at least 3 months PT/OT eval Follow up with neuro as an outpatient once discharge from rehab Will need rehab once medically stable Brief Episodes of P. Afib Seen on Tele monitor Now on NSR rate is controlled cardiology recommend to start low dose of metoprolol 12.5, tolerated well But in the setting of acute CVA, need to allow permissive HTN Continue Plavix and Aspirin if develops recurrent or sustained afib, cardio will add additional anticoagulant Will need to arrange as an outpatient for Holter monitor Follow up with cardiology once discharge from rehab Echo done showed: Ejection Fraction = 65-70%. * There is mild concentric left ventricular hypertrophy. * Diastolic dysfunction, Grade II (pseudonormalization pattern). * Aortic valve sclerosis mild, without significant aortic valvular stenosis. Colon Carcinoma S/P day 1 Laparoscopic lysis of dense abdominal adhesions, open sigmoid colon resection by Dr. Núñez continue pain control NGT removed Incentive spirometry CT abd.pelvis mike no convincing evidence for metastatic disease although evaluation is suboptimal given postoperative changes. JOSE ALEJANDRO LESION CT abd/pelvis showed 1 x 3 cm mass-like abnormality along the superior aspect of the left kidney Will need to r/o any renal malignancy Consider a renal CT protocol continue monitor HTN- -Permissive hypertension, will let BP run high btw 170-180 Hold amlodipine, losartan DM-2, NIDDM -Hold metformin -ISS, Accuchecks DYSLIPIDEMIA -On atorvastatin 40 mg MORBID OBESITY DVT PROPHYLAXIS hold heparin subq due to risk of bleeding OOB to chair SCDs DISPOSITION Will transfer to rehab once stable by surgery Consultants: Aeronautical Engineering Professor Cardio Neuro Procedures: Laparoscopic lysis of dense adhesions, sigmoid colon resection for side Current Inpatient Medications: Current Inpatient Medications Medications (Trade) Dose Ordered Sig/Naila Route Start Time Stop Time Status Last Admin Dose Admin Ondansetron HCl (Zofran Inj) 4 mg Q6H PRN IV 6/8/17 10:45 01/24/17 10:44 Future hold 12/26/16 17:35 4 MG Glucose (Glucose 40% Gel) 15-30 GRAMS 15 GRAMS... UD PRN PO 12/25/16 10:45 01/24/17 10:44 Glucose (Glucose Chew Tab) 4-8 Tablets 4 Tabl... UD PRN PO 12/25/16 10:45 01/24/17 10:44 Dextrose (Dextrose 50% 50ML Syringe) 25-50ML OF 50% DW IV FOR... UD PRN IV 12/25/16 10:45 01/24/17 10:44 Glucagon (Glucagon Inj) 1 mg UD PRN SQ 12/25/16 10:45 01/24/17 10:44 Morphine Sulfate (MoRPHine SULFATE INJ) 4 mg Q1H PRN IV 12/26/16 09:30 01/09/17 09:29 12/27/16 13:59 4 MG Sodium Chloride 1,000 ml @ 100 mls/hr Q10H IV 12/27/16 01:15 01/26/17 01:14 12/28/16 07:52 100 MLS/HR Clopidogrel Bisulfate (plAVix TAB) 75 mg QAM PO 12/27/16 09:00 01/26/17 08:59 Future hold 12/27/16 10:40 75 MG Ioversol (Optiray 320) 100 ml UD PRN IV 12/27/16 09:15 12/31/16 09:14 Labetalol HCl (Normodyne IV) 5 mg Q1H PRN IV 12/27/16 17:15 01/26/17 17:14 12/28/16 06:17 5 MG Miscellaneous Information (Pharmacist Discharge Med Rec Consult) 1 ea UD PRN N/A 12/27/16 19:30 01/26/17 19:29 Heparin Sodium (Porcine) (Heparin Sq 5000 Unit/0.5ml) 5,000 unit Q8 SQ 12/28/16 06:00 01/27/17 05:59 Future Hold 12/28/16 06:16 5,000 UNIT Metoprolol Tartrate (Lopressor Tab) 12.5 mg BID PO 12/28/16 09:00 01/27/17 08:59 12/28/16 09:44 12.5 MG Acetaminophen (Tylenol Tab) 1,000 mg Q6H PRN PO 12/28/16 08:30 01/27/17 08:29 Pantoprazole Sodium (Protonix Tab) 40 mg BID PO 12/28/16 09:30 01/27/17 09:29 12/28/16 09:27 40 MG Insulin Aspart (novoLOG ASPART) SLIDING SCALE If C... ACHS SC 12/28/16 11:00 01/27/17 10:59
[2016-12-28] MEDS: ONDANSETRON INJ 2 MG/ML 2 ML VIAL IV PRN (16:49)
[2016-12-29] VITALS (23 sets, daily range): BP systolic 124–196; BP diastolic 65–113; PULSE 53–71; TEMP 36.8–37.3; O2SAT 88–98
[2016-12-29 05:54] LABS: HEMATOCRIT 32.4 % (37-47); MEAN CORPUSCULAR HEMOGLOBIN 29.4 pg (25-34); MEAN CORPUSCULAR HGB CONC 32.7 g/dl (32-36); MEAN PLATELET VOLUME 9.6 fL (7.4-10.4); PLATELET COUNT 233 K/uL (130-400); WHITE BLOOD COUNT 8.56 K/uL (4.8-10.8)
[2016-12-29] MEDS: SODIUM CHLORIDE 0.9% 1000ML 1,000 ML IV SCH ×2 (06:01→19:57)
[2016-12-29 06:30] LABS: BUN/CREATININE RATIO 18.7 (10-20); CALCIUM 8.4 mg/dl (8.5-10.1); CREATININE 0.39 mg/dl (0.60-1.20); POTASSIUM 3.9 mmol/L (3.5-5.1)
[2016-12-29 06:31] LABS: PHOSPHORUS 2.9 mg/dl (2.5-4.9)
[2016-12-29] MEDS: INSULIN ASPART 100 UNITS/ML 3 ML PEN SC SCH ×4 (06:45→20:44)
[2016-12-29 06:57] LABS: ESTIMATED AVERAGE GLUCOSE 140 mg/dl; HA1C FLAG Normal (Normal)
--- NOTE | 2016-12-29 08:24 | Surgery Progress Note ---
Surgery Progress Note Date of Service Dec 29, 2016. Subjective Post OP Day: 4 + feeling well (extremity strength improving), + bowel movement, + diet (clears) , No complaints, No nausea Objective Vital Signs: Date Time Temp Pulse Resp B/P (MAP) Pulse Ox O2 Delivery O2 Flow Rate FiO2 12/29/16 06:02 36.8 60 14 169/81 (110) 96 Nasal Cannula 3.0 12/29/16 05:32 57 13 159/71 (100) 96 Nasal Cannula 3.0 12/29/16 05:02 59 12 184/76 (112) 88 Nasal Cannula 3.0 12/29/16 04:32 63 15 174/105 (128) 98 Nasal Cannula 3.0 12/29/16 04:26 92 Nasal Cannula 3.0 12/29/16 04:02 60 15 182/80 (114) 92 Nasal Cannula 3.0 12/29/16 03:32 57 14 155/78 (103) 96 Nasal Cannula 3.0 12/29/16 03:03 71 14 164/71 (102) 94 Nasal Cannula 3.0 12/29/16 02:32 53 15 153/65 (94) 98 Nasal Cannula 3.0 12/29/16 02:02 58 17 153/71 (98) 96 Nasal Cannula 3.0 12/29/16 01:32 60 15 174/79 (110) 96 Nasal Cannula 3.0 12/29/16 01:02 55 16 156/69 (98) 95 Nasal Cannula 3.0 12/29/16 01:01 92 Nasal Cannula 3.0 12/29/16 00:32 53 14 181/77 (111) 98 Nasal Cannula 3.0 12/29/16 00:02 37.3 55 14 154/70 (98) 96 Nasal Cannula 3.0 12/28/16 22:32 62 13 170/86 (114) 96 Nasal Cannula 3.0 12/28/16 22:02 55 15 168/74 (105) 98 Nasal Cannula 3.0 12/28/16 21:32 59 14 150/86 (107) 97 Nasal Cannula 3.0 12/28/16 21:12 60 13 197/71 (113) 99 Nasal Cannula 3.0 12/28/16 21:02 61 16 191/70 (110) 98 Nasal Cannula 3.0 12/28/16 20:34 92 Nasal Cannula 3.0 12/28/16 20:32 62 16 194/81 (118) 98 Nasal Cannula 3.0 12/28/16 20:02 37.0 63 20 158/59 (92) 97 Nasal Cannula 3.0 12/28/16 19:32 63 16 198/89 (125) 97 Nasal Cannula 3.0 12/28/16 19:02 65 19 198/91 (126) 98 Nasal Cannula 3.0 12/28/16 18:00 62 14 201/84 (123) 96 Nasal Cannula 3.0 12/28/16 16:00 97 Nasal Cannula 3.0 12/28/16 16:00 37.1 95 16 190/84 (119) 97 Nasal Cannula 3.0 12/28/16 14:00 62 18 170/72 (104) 95 Nasal Cannula 4.0 12/28/16 12:00 97 Nasal Cannula 4.0 12/28/16 12:00 59 20 173/73 (106) 97 Nasal Cannula 4.0 12/28/16 10:00 62 20 187/92 (123) 96 Nasal Cannula 4.0 Physical Exam: Nico drainage (60 cc), urine output (1100) Abdomen: soft Laboratory Results: Results Past 24 Hours Test 12/28/16 11:27 12/28/16 15:40 12/28/16 21:27 12/29/16 05:25 Range/Units Bedside Glucose 114 122 149 70-90 mg/dl White Blood Count 8.56 4.8-10.8 K/uL Red Blood Count 3.60 4.2-5.4 M/uL Hemoglobin 10.6 12.0-16.0 g/dL Hematocrit 32.4 37-47 % Mean Corpuscular Volume 90.0 80-100 fL Mean Corpuscular Hemoglobin 29.4 25-34 pg Mean Corpuscular Hemoglobin Concent 32.7 32-36 g/dl RDW Standard Deviation 44.9 36.4-46.3 fL RDW Coefficient of Variation 13.5 11.5-14.5 % Platelet Count 233 130-400 K/uL Mean Platelet Volume 9.6 7.4-10.4 fL Sodium Level 140 136-145 mmol/L Potassium Level 3.9 3.5-5.1 mmol/L Chloride Level 103 98-107 mmol/L Carbon Dioxide Level 32 21-32 mmol/L Anion Gap 5.0 3-11 mmol/L Blood Urea Nitrogen 7 7-18 mg/dl Creatinine 0.39 0.60-1.20 mg/dl Est Creatinine Clear Calc Drug Dose 190.0 ml/min Estimated GFR () 130.5 Estimated GFR (Non- 112.6 BUN/Creatinine Ratio 18.7 10-20 Random Glucose 113 70-99 mg/dl Calcium Level 8.4 8.5-10.1 mg/dl Phosphorus Level 2.9 2.5-4.9 mg/dl Assessment & Plan s/p lap assisted sigmoid colectomy CVA HTN DM II regaining movement left side bowel function returned, begin diabetic diet PT/OT seen with Dr. Núñez
[2016-12-29] MEDS ORDERED: OXYCODONE/ACETAMINOPHEN 5-325 TAB PO PRN (09:00)
[2016-12-29] MEDS ORDERED: ASPIRIN 81 MG ECTAB PO STA (09:03)
--- NOTE | 2016-12-29 09:31 | Critical Care Progress Note ---
Critical Care Progress Note Date of Service Dec 29, 2016. ICU Day ICU Day Number: [address] Uma Santana Subjective No issues currently Does still note that she is having left sided weakness No loss of sensation No difficulty with speech or comprehension Tolerating diet, denies choking episodes Objective Constitutional: Vital signs as above were reviewed. Eyes: Pupils equal, round, and reactive to light. Extraocular muscles are intact. No proptosis. No photophobia. ENT: Mucous membranes are moist. Oropharynx is clear. No sinus tenderness. TMs are clear bilaterally. Cardiovascular: Heart with a regular rate and rhythm. Pulses are palpable and symmetric in all 4 extremities. No pedal edema appreciated. Respiratory: Lungs clear to auscultation bilaterally. No wheezes, rales, or rhonchi appreciated. No accessory muscle use. No retractions. No increased work of breathing. GI: Abdomen soft, nontender, nondistended. Normal active bowel sounds. No abdominal hernias appreciated. No rebound. No guarding. Normal incision site; no purulence, bleeding or incision site dehiscence : No CVA tenderness appreciated. Musculoskeletal: No midline cervical or vertebral tenderness. No gross deformities. No bony tenderness. No calf swelling or tenderness. Integumentary: Warm, dry, no rashes appreciated. Neurological: Patient awake, alert, and oriented x 3. Cranial nerves two through 12 grossly intact. Left upper extremity weakness 2/5; Left hand strength 4/5; intact sensation Right upper extremity strength 5/5; Left hand strength 5/5; intact sensation Normal speech and comprehension Lymph: No cervical lymphadenopathy appreciated. Current SOFA Score SOFA Score Response (Comments) Value Platelets (x10) > 150 0 Bilirubin (mg/dL) < 1.2 0 Marshall Coma Score 15 0 Level of Hypotension No Hypotension 0 Creatinine (mg/dL) < 1.2 0 Total 0 Previous SOFA Scores 0 on 12/29/2016 Assessment & Plan (1) Status post partial resection of colon (2) Acute right MCA stroke (3) Absolute contraindication to tissue plasminogen activator (t-PA) therapy (4) Internal carotid artery stenosis (5) Vertebral artery stenosis, symptomatic, without infarction (6) Intracranial carotid stenosis, bilateral (7) TIA (transient ischemic attack) (8) Paroxysmal atrial fibrillation (9) Hypertension (10) Type 2 diabetes mellitus (11) Left renal mass Our plan for her is as follows. NEUROLOGICAL - GCS: 15 - RASS: 0 - CAM-ICU negative - Pain regimen: Morphine 4 mg q 1 hour Acute CVA in Right MCA Territory - With left upper and lower extremity weakness - Absolute contra-indication to tPA due to recent surgery - Per Neurology, she will be started on DAPT today with ASA and Plavix; needs to be continued for 3 months - Allow permissive hypertension, keep BP > 160 Labetalol PRN for sBP > 190 CARDIAC - BP: Maintaining MAP > 65, no indication for vasopressor support Paroxysmal Atrial Fibrillation - Noted to have a short episodes of self-terminating atrial fibrillation - Not an indication to start systemic anticoagulation at this time - Would benefit from Holter Monitor as outpatient Hypertension - Permissive HTN as noted above RESPIRATORY - RR: 12-15 - 3L by nasal cannula with no baseline home O2 requirement Wean as tolerated GASTROINTESTINAL - Diet: Liquid diet - GI Prophylaxis: Protonix 40 mg BID PO - Bowel regimen: Last BM on 12/28/2016 S/p Sigmoid colon resection on 12/25/2016 - Surgery following patient; recommendations appreciated RENAL//ENDOCRINE - Fluid Balance Cumulatively positive 2.8 L 24 hour net positive 1.6 L - Cr: 0.39 - Electrolytes: No gross abnormalities a this time - IV Fluids: NSS at 100 ml/hr Patient does have diet started which she is tolerating; cut rate to 50 ml/hr and D/C if she is tolerating diet after lunch Left Renal Mass - As noted on CT from 12/27/2016 - Will require CT with renal protocol for further characterization; can be done after acute illness is resolved Type 2 Diabetes Mellitus - Continue AC/HS Checks - Insulin SSI - BSG within range at 110-140 HEMATOLOGY/INFECTIOUS DISEASES - Tmax 37.2, afebrile; No leukocytosis Acute Blood Loss Anemia - Hb/Hct 10/32 Baseline Hb 13-14; drop likely 2/2 recent surgery Continue monitoring daily - DVT Prophylaxis: Hold pharmacological anticoagulation until deemed suitable per surgery LINES/IV ACCESS - 20 G left wrist CODE STATUS - Full Code DISPOSITION - OT/PT: Ordered - Stable for ICU downgrade Resident Physician Supervision Note: I interviewed and examined the patient. Discussed with Dr. Suero and agree with findings and plan as documented in the note. Any exceptions or clarifications are listed here: The patient's care was also discussed on multidisciplinary rounds this morning and I have reviewed the VS, I/O, notes, meds, labs imaging and other reports. The impression and plan are well documented above. Her L sided strength is improving and ASA 81mg po daily was added today. Her subcutaneous heparin is still on hold and probably can be resumed tomorrow. I discussed her care with both she and her daughter who was at the bedside. Questions were answered. She is stable for transfer to telemetry. I also discussed her care briefly with Dr. Núñez. Documented By: Uma Santana Consults & Procedures Consultants: Dr Leone, [facility] Hospitalist Neuro: Dr. Cruz Cardiology: Dr. Henry Vascular surgery: Dr. Salinas (Admitting) General surgery: Dr. Núñez Procedures: 12/25/16, Dr Núñez: Laparoscopy, lysis of dense abdominal adhesions, approximately 1/3 of the operative time, sigmoid colon resection with primary side-to-end anastomosis. Data Medications: Current Inpatient Medications Medications (Trade) Dose Ordered Sig/Naila Route Start Time Stop Time Status Last Admin Dose Admin Ondansetron HCl (Zofran Inj) 4 mg Q6H PRN IV 12/25/16 10:45 01/24/17 10:44 Future hold 12/28/16 16:49 4 MG Glucose (Glucose 40% Gel) 15-30 GRAMS 15 GRAMS... UD PRN PO 12/25/16 10:45 01/24/17 10:44 Glucose (Glucose Chew Tab) 4-8 Tablets 4 Tabl... UD PRN PO 12/25/16 10:45 01/24/17 10:44 Dextrose (Dextrose 50% 50ML Syringe) 25-50ML OF 50% DW IV FOR... UD PRN IV 12/25/16 10:45 01/24/17 10:44 Glucagon (Glucagon Inj) 1 mg UD PRN SQ 12/25/16 10:45 01/24/17 10:44 Morphine Sulfate (MoRPHine SULFATE INJ) 4 mg Q1H PRN IV 12/26/16 09:30 01/09/17 09:29 12/27/16 13:59 4 MG Sodium Chloride 1,000 ml @ 50 mls/hr Q20H IV 12/27/16 01:15 01/26/17 01:14 12/29/16 06:01 100 MLS/HR Clopidogrel Bisulfate (plAVix TAB) 75 mg QAM PO 12/27/16 09:00 01/26/17 08:59 Future hold 12/27/16 10:40 75 MG Ioversol (Optiray 320) 100 ml UD PRN IV 12/27/16 09:15 12/31/16 09:14 Labetalol HCl (Normodyne IV) 5 mg Q1H PRN IV 12/27/16 17:15 01/26/17 17:14 12/28/16 21:20 5 MG Miscellaneous Information (Pharmacist Discharge Med Rec Consult) 1 ea UD PRN N/A 12/27/16 19:30 01/26/17 19:29 Heparin Sodium (Porcine) (Heparin Sq 5000 Unit/0.5ml) 5,000 unit Q8 SQ 12/28/16 06:00 01/27/17 05:59 Future Hold 12/28/16 06:16 5,000 UNIT Metoprolol Tartrate (Lopressor Tab) 12.5 mg BID PO 12/28/16 09:00 01/27/17 08:59 12/28/16 21:21 12.5 MG Acetaminophen (Tylenol Tab) 1,000 mg Q6H PRN PO 12/28/16 08:30 01/27/17 08:29 Pantoprazole Sodium (Protonix Tab) 40 mg BID PO 12/28/16 09:30 01/27/17 09:29 12/28/16 21:22 40 MG Insulin Aspart (novoLOG ASPART) SLIDING SCALE If C... ACHS SC 12/28/16 11:00 01/27/17 10:59 12/28/16 22:00 1 UNITS Oxycodone/ Acetaminophen (Percocet 5-325mg Tab) 1 tab Q4H PRN PO 12/29/16 09:00 01/12/17 08:59 UNV Vital Signs: Date Time Temp Pulse Resp B/P (MAP) Pulse Ox O2 Delivery O2 Flow Rate FiO2 12/29/16 08:00 37.1 60 24 174/72 (106) 93 Nasal Cannula 3.0 12/29/16 08:00 Nasal Cannula 3.0 12/29/16 06:02 36.8 60 14 169/81 (110) 96 Nasal Cannula 3.0 12/29/16 05:32 57 13 159/71 (100) 96 Nasal Cannula 3.0 12/29/16 05:02 59 12 184/76 (112) 88 Nasal Cannula 3.0 12/29/16 04:32 63 15 174/105 (128) 98 Nasal Cannula 3.0 12/29/16 04:26 92 Nasal Cannula 3.0 12/29/16 04:02 60 15 182/80 (114) 92 Nasal Cannula 3.0 12/29/16 03:32 57 14 155/78 (103) 96 Nasal Cannula 3.0 12/29/16 03:03 71 14 164/71 (102) 94 Nasal Cannula 3.0 12/29/16 02:32 53 15 153/65 (94) 98 Nasal Cannula 3.0 12/29/16 02:02 58 17 153/71 (98) 96 Nasal Cannula 3.0 12/29/16 01:32 60 15 174/79 (110) 96 Nasal Cannula 3.0 12/29/16 01:02 55 16 156/69 (98) 95 Nasal Cannula 3.0 12/29/16 01:01 92 Nasal Cannula 3.0 12/29/16 00:32 53 14 181/77 (111) 98 Nasal Cannula 3.0 12/29/16 00:02 37.3 55 14 154/70 (98) 96 Nasal Cannula 3.0 12/28/16 22:32 62 13 170/86 (114) 96 Nasal Cannula 3.0 12/28/16 22:02 55 15 168/74 (105) 98 Nasal Cannula 3.0 12/28/16 21:32 59 14 150/86 (107) 97 Nasal Cannula 3.0 12/28/16 21:12 60 13 197/71 (113) 99 Nasal Cannula 3.0 12/28/16 21:02 61 16 191/70 (110) 98 Nasal Cannula 3.0 12/28/16 20:34 92 Nasal Cannula 3.0 12/28/16 20:32 62 16 194/81 (118) 98 Nasal Cannula 3.0 12/28/16 20:02 37.0 63 20 158/59 (92) 97 Nasal Cannula 3.0 12/28/16 19:32 63 16 198/89 (125) 97 Nasal Cannula 3.0 12/28/16 19:02 65 19 198/91 (126) 98 Nasal Cannula 3.0 12/28/16 18:00 62 14 201/84 (123) 96 Nasal Cannula 3.0 12/28/16 16:00 97 Nasal Cannula 3.0 12/28/16 16:00 37.1 95 16 190/84 (119) 97 Nasal Cannula 3.0 12/28/16 14:00 62 18 170/72 (104) 95 Nasal Cannula 4.0 12/28/16 12:00 97 Nasal Cannula 4.0 12/28/16 12:00 59 20 173/73 (106) 97 Nasal Cannula 4.0 12/28/16 10:00 62 20 187/92 (123) 96 Nasal Cannula 4.0 Laboratory Results: Last 24 Hours Test 12/28/16 11:27 12/28/16 15:40 12/28/16 21:27 12/29/16 05:25 Bedside Glucose 114 mg/dl 122 mg/dl 149 mg/dl White Blood Count 8.56 K/uL Red Blood Count 3.60 M/uL Hemoglobin 10.6 g/dL Hematocrit 32.4 % Mean Corpuscular Volume 90.0 fL Mean Corpuscular Hemoglobin 29.4 pg Mean Corpuscular Hemoglobin Concent 32.7 g/dl RDW Standard Deviation 44.9 fL RDW Coefficient of Variation 13.5 % Platelet Count 233 K/uL Mean Platelet Volume 9.6 fL Sodium Level 140 mmol/L Potassium Level 3.9 mmol/L Chloride Level 103 mmol/L Carbon Dioxide Level 32 mmol/L Anion Gap 5.0 mmol/L Blood Urea Nitrogen 7 mg/dl Creatinine 0.39 mg/dl Est Creatinine Clear Calc Drug Dose 190.0 ml/min Estimated GFR () 130.5 Estimated GFR (Non- 112.6 BUN/Creatinine Ratio 18.7 Random Glucose 113 mg/dl Calcium Level 8.4 mg/dl Phosphorus Level 2.9 mg/dl
[2016-12-29] MEDS: CLOPIDOGREL BISULFATE 75 MG TAB PO SCH (09:59)
[2016-12-29] MEDS: METOPROLOL TARTRATE 25 MG TAB PO SCH ×2 (10:00→19:58)
[2016-12-29] MEDS: PANTOprazole SOD 40 MG TAB PO SCH ×2 (10:00→19:57)
--- NOTE | 2016-12-29 12:50 | Cardiology Follow-Up ---
Subjective General Date of Service: Dec 29, 2016. Pt evaluation today including: conversation w/ patient, conversation w/ family , physical exam, chart review, lab review, review of studies, review of inpatient medication list History of Present Illness The patient is a 61 year old female seen in follow up. Abble to move left hand today. Denies CP or SOB. No recurrent atrial fibrillation or atrial tachycardia on telemetry. Allergies Coded Allergies: BEE STING (Verified Allergy, Unknown, SWELLING - LOCALIZED AT STING AREA, 12/25/16) NO KNOWN DRUG ALLERGIES (Verified Allergy, Unknown, , 12/25/16) Social History Smoking Status: Never Smoker Hx Tobacco Use In Past Year?: No Hx Alcohol Use - Type And Amou: Yes (WEEKENDS/FEW DRINKS ) Hx Substance Use - Type And Am: No Review of Systems Respiratory: No cough, No sputum, No wheezing, No shortness of breath, No dyspnea on exertion, No dyspnea at rest, No hemoptysis Cardiac: No chest pain, No orthopnea, No PND, No edema, No claudication, No palpitations Physical Exam Vital Signs Last Vital Signs Documentation Date Time Temp Pulse Resp B/P (MAP) Pulse Ox O2 Delivery O2 Flow Rate FiO2 12/29/16 12:00 37.2 60 18 124/113 (117) 96 Nasal Cannula 3.0 12/27/16 16:00 94 Physical Exam Head: normocephalic Neck: supple, trachea midline Lungs: Auscultation: breath sounds normal, no wheezing, no rales/crackles, no rhonchi Cardiovascular: Heart Auscultation: RRR, normal S1, normal S2, no murmurs Abdomen: Inspection & Palpation: soft, non-distended, no tenderness, guarding & rebound Extremities: no cyanosis, no edema, no clubbing, no ulcers Neurologic: Gait & Station: pertinent finding (left sided weakness) Assessment and Plan Assessment and Plan FINAL IMPRESSION: 1. Acute right sided cerebrovascular accident secondary to ARLYN occlusion. -left sided weakness improving. 2. Brief milagros of paroxysmal atrial fibrillation (22beats) 12/27/16 - no recurrence - possibly related to elevated catecholamines in secondary to acute CVA and post-operative state. 3. Brief milagros of paroxysmal atrial tachycardia today 4. Permissive hypertension in the setting of acute cerebrovascular accident. 5. Adenocarcinoma of the colon status post colon resection. 6. Diabetes type 2. PLAN AND RECOMMENDATIONS: Continue dual antiplatelet therapy and beta aline. Monitor telemetry. If patient develops recurrent or sustained episode of atrial fibrillation would reconsider addition of anticoagulation. She will require a 14 - 30 day monitor an outpatient. Laboratory Results Last 24 Hours Test 12/28/16 15:40 12/28/16 21:27 12/29/16 05:25 12/29/16 11:25 Bedside Glucose 122 mg/dl 149 mg/dl 144 mg/dl White Blood Count 8.56 K/uL Red Blood Count 3.60 M/uL Hemoglobin 10.6 g/dL Hematocrit 32.4 % Mean Corpuscular Volume 90.0 fL Mean Corpuscular Hemoglobin 29.4 pg Mean Corpuscular Hemoglobin Concent 32.7 g/dl RDW Standard Deviation 44.9 fL RDW Coefficient of Variation 13.5 % Platelet Count 233 K/uL Mean Platelet Volume 9.6 fL Sodium Level 140 mmol/L Potassium Level 3.9 mmol/L Chloride Level 103 mmol/L Carbon Dioxide Level 32 mmol/L Anion Gap 5.0 mmol/L Blood Urea Nitrogen 7 mg/dl Creatinine 0.39 mg/dl Est Creatinine Clear Calc Drug Dose 190.0 ml/min Estimated GFR () 130.5 Estimated GFR (Non- 112.6 BUN/Creatinine Ratio 18.7 Random Glucose 113 mg/dl Calcium Level 8.4 mg/dl Phosphorus Level 2.9 mg/dl
[2016-12-29] MEDS: SIMETHICONE 80 MG CHEW PO PRN (14:13)
--- NOTE | 2016-12-29 16:39 | PROGRESS NOTE ---
DATE: 12/29/2016 SUBJECTIVE: Nenita is making remarkable progress. She now can move her left hand, she can raise it against gravity and repetitive motions are coming back nicely in her fingers and hand Her left upper motor neuron facial paresis is virtually gone. She has no visual field cuts. No head or eye deviation and left leg function is even better than it was yesterday, which is nearly back to what I think is her baseline. Reflexes are slightly brisk. Toe sign on the left us equivocal. There is no sensory neglect and her absolute loss of sensation in the left side is now much reduced. Overall then, she is quite stable and improving neurologically from what was either a series of embolic infarctions stemming from the high grade left internal carotid stenosis at the level of the siphon or a watershed type of infarct due to hypotension and a chronically occluded segment with collateral failure. Whatever the case, in either event her transient atrial fibrillation is not significant at least in terms of producing a stroke but if she proves to subsequently be in and out of atrial fibrillation, she may well need novel anticoagulants or even Coumadin in the future depending on what cardiology thinks. For now, however, I think antiplatelet therapy is all that is indicated and unless we do find evidence for atrial fibrillation and the need to switch anticoagulation, I would ideally place her on dual antiplatelet therapy for 3 months. This is being tempered now by the concurrent use of heparin for DVT prophylaxis. Only a single antiplatelet agent ie plavix is thus on board with the heparin. Once the heparin is stopped then- unless we evidence for paroxysmal atrial fibrillation and require a novel anticoagulation or Coumadin-dual antiplately therapy should be restarted for 3 months and then dropped back to a single agent either asa or continued plavix. Neurology will be happy to take a look at her in about 4-6 weeks after she is discharged from [facility] and I am going to assume that she will be accepted in transfer relatively soon. Some of this is continued on how surgery feels she is doing. I will check again on her tomorrow. LG
--- NOTE | 2016-12-29 22:15 | Progress Note ---
Medicine Progress Note Date & Time of Visit: Dec 29, 2016 at 15:17. Subjective 61 yoF with colon cancer s/p surgical resection s/p stroke -pt is in good spirits, having eaten her dinner and is sitting and conversing with her parents. -she denies any pain -she denies chest pain or shortness of breath -she reports improvement in the function of her LUE, specifically her L hand. -she reports some gas and is passing gas Objective Last 8 Hrs Date Time Temp Pulse Resp B/P (MAP) Pulse Ox O2 Delivery O2 Flow Rate FiO2 12/29/16 14:00 55 16 174/79 (110) 96 3.0 12/29/16 12:00 37.2 60 18 124/113 (117) 96 Nasal Cannula 3.0 12/29/16 12:00 Nasal Cannula 3.0 12/29/16 11:22 Nasal Cannula 12/29/16 10:00 59 20 196/98 (130) 94 Nasal Cannula 3.0 12/29/16 08:00 37.1 60 24 174/72 (106) 93 Nasal Cannula 3.0 12/29/16 08:00 Nasal Cannula 3.0 Physical Exam: GEN: WNWD, in no acute distress, alert and appropriate HEENT: NC/AT, PERRL, normal sclerae, EOMI, MMM CARDIO: reg rate, S1/2 heard without m/g/r LUNGS: CTA bilaterally, no crackles, rales or wheezes, good diaphragmatic excursion ABD: soft, non-tender, non-distended, no rebound or guarding, +BS, incision covered with dressing that is c/d/i, FREDA drain is in place on RLQ draining serosanguinous fluid. EXTREMITY: RP and DP palpable 2+ bilat, no LE swelling or edema, extremities are warm and well-perfused NEURO: CN 2-12 intact except she cannot shrug her shoulder on the L side, sensation intact throughout, speech is good, no facial droop noted on the L side , (reflexes) knee 2+ bilat, achilles 2+ bilat. 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 SKIN: warm and dry Laboratory Results: 12/29/16 05:25 12/29/16 05:25 Test 12/25/16 06:10 12/25/16 11:12 12/25/16 12:52 12/27/16 06:30 Carcinoembryonic Antigen 0.5 ng/ml (0-2.5) Prothrombin Time 10.6 SECONDS (9.0-12.0) Prothromb Time International Ratio 1.0 (0.9-1.1) Activated Partial Thromboplast Time 24.8 SECONDS (21.0-31.0) Partial Thromboplastin Ratio 1.0 Lactic Acid Level 1.0 mmol/L (0.4-2.0) Total Bilirubin 0.7 mg/dl (0.2-1) Aspartate Amino Transf (AST/SGOT) 17 U/L (15-37) Alanine Aminotransferase (ALT/SGPT) 27 U/L (12-78) Alkaline Phosphatase 98 U/L (45-117) Total Protein 7.8 gm/dl (6.4-8.2) Albumin 3.8 gm/dl (3.4-5.0) Globulin 4.0 gm/dl (2.5-4.0) Albumin/Globulin Ratio 1.0 (0.9-2) Estimated Average Glucose 140 mg/dl Hemoglobin A1c 6.5 % (4.5-5.6) Test 12/28/16 05:46 12/29/16 05:25 12/29/16 20:14 Immature Granulocyte % (Auto) 0.2 % White Blood Count 11.43 K/uL (4.8-10.8) Red Blood Count 4.16 M/uL (4.2-5.4) 3.60 M/uL (4.2-5.4) Hemoglobin 11.8 g/dL (12.0-16.0) Hematocrit 37.1 % (37-47) Mean Corpuscular Volume 89.2 fL (80-100) 90.0 fL (80-100) Mean Corpuscular Hemoglobin 28.4 pg (25-34) 29.4 pg (25-34) Mean Corpuscular Hemoglobin Concent 31.8 g/dl (32-36) 32.7 g/dl (32-36) Platelet Count 256 K/uL (130-400) Mean Platelet Volume 9.0 fL (7.4-10.4) 9.6 fL (7.4-10.4) Neutrophils (%) (Auto) 77.0 % Lymphocytes (%) (Auto) 13.5 % Monocytes (%) (Auto) 8.0 % Eosinophils (%) (Auto) 1.2 % Basophils (%) (Auto) 0.1 % Neutrophils # (Auto) 8.80 K/uL (1.4-6.5) Lymphocytes # (Auto) 1.54 K/uL (1.2-3.4) Monocytes # (Auto) 0.92 K/uL (0.11-0.59) Eosinophils # (Auto) 0.14 K/uL (0-0.5) Basophils # (Auto) 0.01 K/uL (0-0.2) Immature Granulocyte # (Auto) 0.02 K/uL (0.00-0.02) Magnesium Level 2.1 mg/dl (1.8-2.4) Triglycerides Level 143 mg/dl (0-150) Cholesterol Level 124 mg/dl (0-200) HDL Cholesterol 43 mg/dl LDL Cholesterol, Calculated 52 mg/dl VLDL Cholesterol, Calculated 29 mg/dl Cholesterol/HDL Ratio 2.9 RDW Standard Deviation 44.9 fL (36.4-46.3) RDW Coefficient of Variation 13.5 % (11.5-14.5) Anion Gap 5.0 mmol/L (3-11) Est Creatinine Clear Calc Drug Dose 190.0 ml/min Estimated GFR () 130.5 Estimated GFR (Non- 112.6 BUN/Creatinine Ratio 18.7 (10-20) Calcium Level 8.4 mg/dl (8.5-10.1) Phosphorus Level 2.9 mg/dl (2.5-4.9) Bedside Glucose 165 mg/dl (70-90) Date/Time Source Procedure Growth Status 12/25/16 20:40 Nasal MRSA DNA Surveillance Screen - Final Specimen Negative for MRSA by DNA Probe Complete 12/25/16 07:30 Urine,Catheterized Urine Culture - Final NO GROWTH - LESS THAN 1,000 COLONIES/ML Complete Last 24 Hours Test 12/28/16 15:40 12/28/16 21:27 12/29/16 05:25 12/29/16 11:25 Bedside Glucose 122 mg/dl 149 mg/dl 144 mg/dl White Blood Count 8.56 K/uL Red Blood Count 3.60 M/uL Hemoglobin 10.6 g/dL Hematocrit 32.4 % Mean Corpuscular Volume 90.0 fL Mean Corpuscular Hemoglobin 29.4 pg Mean Corpuscular Hemoglobin Concent 32.7 g/dl RDW Standard Deviation 44.9 fL RDW Coefficient of Variation 13.5 % Platelet Count 233 K/uL Mean Platelet Volume 9.6 fL Sodium Level 140 mmol/L Potassium Level 3.9 mmol/L Chloride Level 103 mmol/L Carbon Dioxide Level 32 mmol/L Anion Gap 5.0 mmol/L Blood Urea Nitrogen 7 mg/dl Creatinine 0.39 mg/dl Est Creatinine Clear Calc Drug Dose 190.0 ml/min Estimated GFR () 130.5 Estimated GFR (Non- 112.6 BUN/Creatinine Ratio 18.7 Random Glucose 113 mg/dl Calcium Level 8.4 mg/dl Phosphorus Level 2.9 mg/dl Assessment & Plan 61 yoF with colon cancer s/p surgical resection s/p stroke 1. Acute R MCA stroke-improvement in function of hand and leg, cont daily PT/ OT. Cont Plavix/ASA per Neuro. Cont permissive HTN 2. Lone afib-thought likely 2/2 catecholamine surge post-operatively. Not recurring, Cards following and does not recommend anticoauglation at this time. Cont to monitor on telemetry. Cont Metoprolol 12.5 BID. Outpatient event monitor recommended. 3. Colon cancer s/p laparoscopic lysis of abdominal adhesions and open sigmoid resection by Dr. Delgado, cont IS, NGT removed. 4. Renal mass-CT a/p revealed 1 x 3 cm mass on L kidney. Will discuss with Urology for appropriate timing of full workup including dedicated renal CT 5. HTN-Holding amlodipine and losartan, allowing SBP to run between 170-180 6. DMII-hold metformin, cont ISS and Accuchecks. Blood sugar is well- controlled on ISS. 7. Dyslipidemia-cont Lip 40mg 8. Morbid Obesity 9. Anemia s/p procedure with blood loss. Cont to monitor PRN. DVT Prophylaxis-per Ortho FULL CODE DISPOSITION: Will transfer to rehab once stable by surgery Thank you for this consultation. We will follow the patient with you during their hospital stay. You can reach a member of the [facility] Hospitalist Team 09/02 via pager @ . You can reach me via cell @ [phone]. Vaishali Machuca DO [facility] Hospitalist Consultants: [employer] Neuro Procedures: Laparoscopic lysis of dense adhesions, sigmoid colon resection for side Current Inpatient Medications: Current Inpatient Medications Medications (Trade) Dose Ordered Sig/Naila Route Start Time Stop Time Status Last Admin Dose Admin Ondansetron HCl (Zofran Inj) 4 mg Q6H PRN IV 12/25/16 10:45 01/24/17 10:44 Future hold 12/28/16 16:49 4 MG Glucose (Glucose 40% Gel) 15-30 GRAMS 15 GRAMS... UD PRN PO 12/25/16 10:45 01/24/17 10:44 Glucose (Glucose Chew Tab) 4-8 Tablets 4 Tabl... UD PRN PO 12/25/16 10:45 01/24/17 10:44 Dextrose (Dextrose 50% 50ML Syringe) 25-50ML OF 50% DW IV FOR... UD PRN IV 12/25/16 10:45 01/24/17 10:44 Glucagon (Glucagon Inj) 1 mg UD PRN SQ 12/25/16 10:45 01/24/17 10:44 Morphine Sulfate (MoRPHine SULFATE INJ) 4 mg Q1H PRN IV 12/26/16 09:30 01/09/17 09:29 12/27/16 13:59 4 MG Sodium Chloride 1,000 ml @ 50 mls/hr Q20H IV 12/27/16 01:15 01/26/17 01:14 12/29/16 06:01 100 MLS/HR Clopidogrel Bisulfate (plAVix TAB) 75 mg QAM PO 12/27/16 09:00 01/26/17 08:59 Future hold 12/29/16 09:59 75 MG Ioversol (Optiray 320) 100 ml UD PRN IV 12/27/16 09:15 12/31/16 09:14 Labetalol HCl (Normodyne IV) 5 mg Q1H PRN IV 12/27/16 17:15 01/26/17 17:14 12/28/16 21:20 5 MG Miscellaneous Information (Pharmacist Discharge Med Rec Consult) 1 ea UD PRN N/A 12/27/16 19:30 01/26/17 19:29 Heparin Sodium (Porcine) (Heparin Sq 5000 Unit/0.5ml) 5,000 unit Q8 SQ 12/28/16 06:00 01/27/17 05:59 Future Hold 12/28/16 06:16 5,000 UNIT Metoprolol Tartrate (Lopressor Tab) 12.5 mg BID PO 12/28/16 09:00 01/27/17 08:59 12/29/16 10:00 12.5 MG Acetaminophen (Tylenol Tab) 1,000 mg Q6H PRN PO 12/28/16 08:30 01/27/17 08:29 Pantoprazole Sodium (Protonix Tab) 40 mg BID PO 12/28/16 09:30 01/27/17 09:29 12/29/16 10:00 40 MG Insulin Aspart (novoLOG ASPART) SLIDING SCALE If C... ACHS SC 12/28/16 11:00 01/27/17 10:59 12/28/16 22:00 1 UNITS Oxycodone/ Acetaminophen (Percocet 5-325mg Tab) 1 tab Q4H PRN PO 12/29/16 09:00 01/12/17 08:59 Aspirin (Ecotrin Tab) 81 mg QAM PO 12/30/16 09:00 01/29/17 08:59 Simethicone (Mylicon Chew Tab) 80 mg Q6H PRN PO 12/29/16 13:00 01/28/17 12:59 12/29/16 14:13 80 MG
[2016-12-30 03:44] VITALS: BP 160/65; PULSE 58; TEMP 37.2; O2SAT 96
[2016-12-30 06:26] LABS: BASO % 0.1 %; BASO ABS # 0.01 K/uL (0-0.2); COMPLETE YES; HEMATOCRIT 30.5 % (37-47); IG% 0.3 %; LYMPH % 19.1 %; LYMPH ABS # 1.45 K/uL (1.2-3.4); MEAN CELL VOLUME 88.4 fL (80-100); MEAN CORPUSCULAR HEMOGLOBIN 29.3 pg (25-34); MEAN CORPUSCULAR HGB CONC 33.1 g/dl (32-36); MEAN PLATELET VOLUME 9.3 fL (7.4-10.4); MONO % 7.5 %; PLATELET COUNT 220 K/uL (130-400); RED BLOOD COUNT 3.45 M/uL (4.2-5.4); WHITE BLOOD COUNT 7.58 K/uL (4.8-10.8)
[2016-12-30] MEDS: INSULIN ASPART 100 UNITS/ML 3 ML PEN SC SCH ×4 (07:00→21:23)
[2016-12-30 07:02] LABS: CALCIUM 8.4 mg/dl (8.5-10.1); CREATININE 0.41 mg/dl (0.60-1.20); POTASSIUM 3.8 mmol/L (3.5-5.1)
[2016-12-30 07:48] VITALS: BP 170/80; PULSE 58; TEMP 36.9; O2SAT 92
--- NOTE | 2016-12-30 08:18 | Surgery Progress Note ---
Surgery Progress Note Date of Service Dec 30, 2016. Subjective Post OP Day: 5 + bowel movement, + diet (diabetic), No complaints, No nausea Objective Vital Signs: Date Time Temp Pulse Resp B/P (MAP) Pulse Ox O2 Delivery O2 Flow Rate FiO2 12/30/16 07:48 36.9 58 20 170/80 (110) 92 Nasal Cannula 2.0 12/30/16 04:00 Nasal Cannula 2.0 12/30/16 03:44 37.2 58 20 160/65 (96) 96 Nasal Cannula 2.0 12/30/16 00:00 Nasal Cannula 2.0 12/29/16 23:53 36.9 57 16 155/68 (97) 97 Nasal Cannula 2.0 Humidified Oxygen 12/29/16 20:00 Nasal Cannula 2.0 12/29/16 19:45 37.1 59 20 178/74 (108) 95 Nasal Cannula 2.0 Humidified Oxygen 12/29/16 16:00 37.1 57 18 183/85 (117) 94 Nasal Cannula 3.0 12/29/16 16:00 Nasal Cannula 3.0 12/29/16 14:00 55 16 174/79 (110) 96 3.0 12/29/16 12:00 37.2 60 18 124/113 (117) 96 Nasal Cannula 3.0 12/29/16 12:00 Nasal Cannula 3.0 12/29/16 11:22 Nasal Cannula 12/29/16 10:00 59 20 196/98 (130) 94 Nasal Cannula 3.0 Abdomen: non distended, soft Incision(s): clean, no erythema, ecchymosis Laboratory Results: Results Past 24 Hours Test 12/29/16 11:25 12/29/16 16:14 12/29/16 20:14 12/30/16 06:05 Range/Units Bedside Glucose 144 117 165 70-90 mg/dl White Blood Count 7.58 4.8-10.8 K/uL Red Blood Count 3.45 4.2-5.4 M/uL Hemoglobin 10.1 12.0-16.0 g/dL Hematocrit 30.5 37-47 % Mean Corpuscular Volume 88.4 80-100 fL Mean Corpuscular Hemoglobin 29.3 25-34 pg Mean Corpuscular Hemoglobin Concent 33.1 32-36 g/dl Platelet Count 220 130-400 K/uL Mean Platelet Volume 9.3 7.4-10.4 fL Neutrophils (%) (Auto) 70.0 % Lymphocytes (%) (Auto) 19.1 % Monocytes (%) (Auto) 7.5 % Eosinophils (%) (Auto) 3.0 % Basophils (%) (Auto) 0.1 % Neutrophils # (Auto) 5.30 1.4-6.5 K/uL Lymphocytes # (Auto) 1.45 1.2-3.4 K/uL Monocytes # (Auto) 0.57 0.11-0.59 K/uL Eosinophils # (Auto) 0.23 0-0.5 K/uL Basophils # (Auto) 0.01 0-0.2 K/uL RDW Standard Deviation 42.7 36.4-46.3 fL RDW Coefficient of Variation 13.2 11.5-14.5 % Immature Granulocyte % (Auto) 0.3 % Immature Granulocyte # (Auto) 0.02 0.00-0.02 K/uL Sodium Level 141 136-145 mmol/L Potassium Level 3.8 3.5-5.1 mmol/L Chloride Level 102 98-107 mmol/L Carbon Dioxide Level 31 21-32 mmol/L Anion Gap 8.0 3-11 mmol/L Blood Urea Nitrogen 6 7-18 mg/dl Creatinine 0.41 0.60-1.20 mg/dl Est Creatinine Clear Calc Drug Dose 180.7 ml/min Estimated GFR () 128.3 Estimated GFR (Non- 110.7 BUN/Creatinine Ratio 15.0 10-20 Random Glucose 117 70-99 mg/dl Calcium Level 8.4 8.5-10.1 mg/dl Test 12/30/16 06:21 Range/Units Bedside Glucose 110 70-90 mg/dl Assessment & Plan s/p lap assisted sigmoid colectomy CVA HTN DM II recovering motor function left side tolerating diet PT/OT seen with Dr. Núñez d/c planning, awaiting approval for rehab
[2016-12-30] MEDS: METOPROLOL TARTRATE 25 MG TAB PO SCH ×2 (08:54→21:20)
[2016-12-30] MEDS: PANTOprazole SOD 40 MG TAB PO SCH ×2 (08:55→21:20)
[2016-12-30] MEDS: CLOPIDOGREL BISULFATE 75 MG TAB PO SCH (08:55)
[2016-12-30] MEDS ORDERED: ASPIRIN 81 MG ECTAB PO SCH (09:00)
--- NOTE | 2016-12-30 10:02 | Progress Note ---
Medicine Progress Note Date & Time of Visit: Dec 30, 2016 at 09:48. Subjective 61 yoF with colon cancer s/p surgical resection s/p stroke -pt moved from ICU to tele yesterday -no repeat afib on telemetry -6-beat run of asymptomatic NSVT was noted -pt reports gas pains and is having explosive diarrhea -Woody still in place and she is requesting to leave it in because "the thought of going to the bathroom is complicated" -she was weaned off oxygen and denies any shortness of breath or chest pains -she was ambulating around room today. Objective Last 8 Hrs Date Time Temp Pulse Resp B/P (MAP) Pulse Ox O2 Delivery O2 Flow Rate FiO2 12/30/16 07:48 36.9 58 20 170/80 (110) 92 Nasal Cannula 2.0 12/30/16 04:00 Nasal Cannula 2.0 12/30/16 03:44 37.2 58 20 160/65 (96) 96 Nasal Cannula 2.0 Physical Exam: GEN: WNWD, in no acute distress, alert and appropriate HEENT: NC/AT, normal sclerae, MMM CARDIO: reg rate, S1/2 heard without m/g/r, RP and DP palpable 2+ bilat, no LE swelling or edema LUNGS: CTA bilaterally, no crackles, rales or wheezes, good diaphragmatic excursion-limited evaluation on the left side as patient is obese and cannot move her L arm or shoulder. ABD: soft, non-tender, non-distended, no rebound or guarding, +BS, incision covered with dressing that is c/d/i, FREDA drain is in place on RLQ draining serosanguinous fluid. EXTREMITY: extremities are warm and well-perfused NEURO: CN 2-12 intact except she cannot shrug her shoulder on the L side, sensation intact throughout, speech is good, no facial droop noted on the L side , MUSC: 5/5 strength throughout except 2/5 on LUE-she cannot pick it up against gravity, she can perform L hand assembler latches and springs. SKIN: warm and dry Laboratory Results: 12/30/16 06:05 Red Blood Count 3.45, Mean Corpuscular Volume 88.4, Mean Corpuscular Hemoglobin 29.3, Mean Corpuscular Hemoglobin Concent 33.1, Mean Platelet Volume 9.3, Neutrophils (%) (Auto) 70.0, Lymphocytes (%) (Auto) 19.1, Monocytes (%) (Auto) 7.5, Eosinophils (%) (Auto) 3.0, Basophils (%) (Auto) 0.1, Neutrophils # (Auto) 5.30, Lymphocytes # (Auto) 1.45, Monocytes # (Auto) 0.57, Eosinophils # (Auto) 0.23, Basophils # (Auto) 0.01 12/30/16 06:05 Test 12/25/16 06:10 12/25/16 11:12 12/25/16 12:52 12/27/16 06:30 Carcinoembryonic Antigen 0.5 ng/ml (0-2.5) Prothrombin Time 10.6 SECONDS (9.0-12.0) Prothromb Time International Ratio 1.0 (0.9-1.1) Activated Partial Thromboplast Time 24.8 SECONDS (21.0-31.0) Partial Thromboplastin Ratio 1.0 Lactic Acid Level 1.0 mmol/L (0.4-2.0) Total Bilirubin 0.7 mg/dl (0.2-1) Aspartate Amino Transf (AST/SGOT) 17 U/L (15-37) Alanine Aminotransferase (ALT/SGPT) 27 U/L (12-78) Alkaline Phosphatase 98 U/L (45-117) Total Protein 7.8 gm/dl (6.4-8.2) Albumin 3.8 gm/dl (3.4-5.0) Globulin 4.0 gm/dl (2.5-4.0) Albumin/Globulin Ratio 1.0 (0.9-2) Estimated Average Glucose 140 mg/dl Hemoglobin A1c 6.5 % (4.5-5.6) Test 12/28/16 05:46 12/29/16 05:25 12/30/16 06:05 12/30/16 19:48 Magnesium Level 2.1 mg/dl (1.8-2.4) Triglycerides Level 143 mg/dl (0-150) Cholesterol Level 124 mg/dl (0-200) HDL Cholesterol 43 mg/dl LDL Cholesterol, Calculated 52 mg/dl VLDL Cholesterol, Calculated 29 mg/dl Cholesterol/HDL Ratio 2.9 Phosphorus Level 2.9 mg/dl (2.5-4.9) White Blood Count 7.58 K/uL (4.8-10.8) Red Blood Count 3.45 M/uL (4.2-5.4) Hemoglobin 10.1 g/dL (12.0-16.0) Hematocrit 30.5 % (37-47) Mean Corpuscular Volume 88.4 fL (80-100) Mean Corpuscular Hemoglobin 29.3 pg (25-34) Mean Corpuscular Hemoglobin Concent 33.1 g/dl (32-36) Platelet Count 220 K/uL (130-400) Mean Platelet Volume 9.3 fL (7.4-10.4) Neutrophils (%) (Auto) 70.0 % Lymphocytes (%) (Auto) 19.1 % Monocytes (%) (Auto) 7.5 % Eosinophils (%) (Auto) 3.0 % Basophils (%) (Auto) 0.1 % Neutrophils # (Auto) 5.30 K/uL (1.4-6.5) Lymphocytes # (Auto) 1.45 K/uL (1.2-3.4) Monocytes # (Auto) 0.57 K/uL (0.11-0.59) Eosinophils # (Auto) 0.23 K/uL (0-0.5) Basophils # (Auto) 0.01 K/uL (0-0.2) RDW Standard Deviation 42.7 fL (36.4-46.3) RDW Coefficient of Variation 13.2 % (11.5-14.5) Immature Granulocyte % (Auto) 0.3 % Immature Granulocyte # (Auto) 0.02 K/uL (0.00-0.02) Anion Gap 8.0 mmol/L (3-11) Est Creatinine Clear Calc Drug Dose 180.7 ml/min Estimated GFR () 128.3 Estimated GFR (Non- 110.7 BUN/Creatinine Ratio 15.0 (10-20) Calcium Level 8.4 mg/dl (8.5-10.1) Bedside Glucose 155 mg/dl (70-90) Date/Time Source Procedure Growth Status 12/25/16 20:40 Nasal MRSA DNA Surveillance Screen - Final Specimen Negative for MRSA by DNA Probe Complete 12/30/16 17:50 Stool C.difficile Toxin B Gene (PCR) - Final No C. difficile toxin B gene detected Complete 12/25/16 07:30 Urine,Catheterized Urine Culture - Final NO GROWTH - LESS THAN 1,000 COLONIES/ML Complete Last 24 Hours Test 12/29/16 11:25 12/29/16 16:14 12/29/16 20:14 12/30/16 06:05 Bedside Glucose 144 mg/dl 117 mg/dl 165 mg/dl White Blood Count 7.58 K/uL Red Blood Count 3.45 M/uL Hemoglobin 10.1 g/dL Hematocrit 30.5 % Mean Corpuscular Volume 88.4 fL Mean Corpuscular Hemoglobin 29.3 pg Mean Corpuscular Hemoglobin Concent 33.1 g/dl Platelet Count 220 K/uL Mean Platelet Volume 9.3 fL Neutrophils (%) (Auto) 70.0 % Lymphocytes (%) (Auto) 19.1 % Monocytes (%) (Auto) 7.5 % Eosinophils (%) (Auto) 3.0 % Basophils (%) (Auto) 0.1 % Neutrophils # (Auto) 5.30 K/uL Lymphocytes # (Auto) 1.45 K/uL Monocytes # (Auto) 0.57 K/uL Eosinophils # (Auto) 0.23 K/uL Basophils # (Auto) 0.01 K/uL RDW Standard Deviation 42.7 fL RDW Coefficient of Variation 13.2 % Immature Granulocyte % (Auto) 0.3 % Immature Granulocyte # (Auto) 0.02 K/uL Sodium Level 141 mmol/L Potassium Level 3.8 mmol/L Chloride Level 102 mmol/L Carbon Dioxide Level 31 mmol/L Anion Gap 8.0 mmol/L Blood Urea Nitrogen 6 mg/dl Creatinine 0.41 mg/dl Est Creatinine Clear Calc Drug Dose 180.7 ml/min Estimated GFR () 128.3 Estimated GFR (Non- 110.7 BUN/Creatinine Ratio 15.0 Random Glucose 117 mg/dl Calcium Level 8.4 mg/dl Test 12/30/16 06:21 Bedside Glucose 110 mg/dl Assessment & Plan 61 yoF with colon cancer s/p surgical resection s/p stroke 1. Acute R MCA stroke-improvement in function of hand and leg, cont daily PT/ OT. Cont Plavix per Neuro. Hold ASA while on DVT prophy, then resume DAPT at discharge x 3 months min. Cont permissive HTN. Lipitor added back this morning. 2. Lone afib-thought likely 2/2 catecholamine surge post-operatively. Not recurring, Cards following and does not recommend anticoauglation at this time. Cont to monitor on telemetry. Cont Metoprolol 12.5 BID,. however, per her PCP instructions, she is not to take her Losartan if HR<60 so she refused it this am. We may need to stop the BB to allow her HR to rise high enough to continue the Losartan for some BP control despite permissive HTN at this time. For now, I just added back the Norvas. Outpatient event monitor recommended. 3. Colon cancer s/p laparoscopic lysis of abdominal adhesions and open sigmoid resection by Dr. Delgado, cont IS, NGT removed. Healing appropriately per surgery 4. Renal mass-CT a/p revealed 1 x 3 cm mass on L kidney. Discussed with Urology, Dr. Parikh, who states that she should be seen in one month as outpatient to decide on further workup for this mass. She should have follow- up with PCP within one week of discharge, who will be able to place an outpatient referral for this. 5. HTN-Restart amlodipine and holding losartan as above, allowing SBP to run between 170-180. 6. DMII-hold metformin, cont ISS and Accuchecks. Blood sugar is well- controlled on ISS. 7. Dyslipidemia-cont Lip 40mg, which was added back this morning. 8. Morbid Obesity 9. Anemia s/p procedure with blood loss. Cont to monitor PRN. Currently stable with no indication for blood transfusion. DVT Prophylaxis-heparin added back today. FULL CODE DISPOSITION: Will transfer to rehab once stable by surgery, awaiting auth to [facility] Thank you for this consultation. We will follow the patient with you during their hospital stay. You can reach a [facility]02 via pager @ [phone]. You can reach me via cell @ [phone]. Vaishali Machuca DO [facility] Consult[facility]: Consulting Services Manager Cardio Neuro Procedures: Laparoscopic lysis of dense adhesions, sigmoid colon resection for side Current Inpatient Medications: Current Inpatient Medications Medications (Trade) Dose Ordered Sig/Naila Route Start Time Stop Time Status Last Admin Dose Admin Ondansetron HCl (Zofran Inj) 4 mg Q6H PRN IV 12/25/16 10:45 01/24/17 10:44 Future hold 12/28/16 16:49 4 MG Glucose (Glucose 40% Gel) 15-30 GRAMS 15 GRAMS... UD PRN PO 12/25/16 10:45 01/24/17 10:44 Glucose (Glucose Chew Tab) 4-8 Tablets 4 Tabl... UD PRN PO 12/25/16 10:45 01/24/17 10:44 Dextrose (Dextrose 50% 50ML Syringe) 25-50ML OF 50% DW IV FOR... UD PRN IV 12/25/16 10:45 01/24/17 10:44 Glucagon (Glucagon Inj) 1 mg UD PRN SQ 12/25/16 10:45 01/24/17 10:44 Clopidogrel Bisulfate (plAVix TAB) 75 mg QAM PO 12/27/16 09:00 01/26/17 08:59 Future hold 12/30/16 08:55 75 MG Ioversol (Optiray 320) 100 ml UD PRN IV 12/27/16 09:15 12/31/16 09:14 Miscellaneous Information (Pharmacist Discharge Med Rec Consult) 1 ea UD PRN N/A 12/27/16 19:30 01/26/17 19:29 Heparin Sodium (Porcine) (Heparin Sq 5000 Unit/0.5ml) 5,000 unit Q8 SQ 12/28/16 06:00 01/27/17 05:59 Future Hold 12/28/16 06:16 5,000 UNIT Metoprolol Tartrate (Lopressor Tab) 12.5 mg BID PO 12/28/16 09:00 01/27/17 08:59 12/29/16 19:58 12.5 MG Acetaminophen (Tylenol Tab) 1,000 mg Q6H PRN PO 12/28/16 08:30 01/27/17 08:29 Pantoprazole Sodium (Protonix Tab) 40 mg BID PO 12/28/16 09:30 01/27/17 09:29 12/30/16 08:55 40 MG Insulin Aspart (novoLOG ASPART) SLIDING SCALE If C... ACHS SC 12/28/16 11:00 01/27/17 10:59 12/29/16 20:44 1 UNITS Oxycodone/ Acetaminophen (Percocet 5-325mg Tab) 1 tab Q4H PRN PO 12/29/16 09:00 01/12/17 08:59 Aspirin (Ecotrin Tab) 81 mg QAM PO 12/30/16 09:00 01/29/17 08:59 12/30/16 08:55 81 MG Simethicone (Mylicon Chew Tab) 80 mg Q6H PRN PO 12/29/16 13:00 01/28/17 12:59 12/29/16 14:13 80 MG Atorvastatin Calcium (Lipitor Tab) 40 mg QAM PO 12/31/16 09:00 01/30/17 08:59 UNV
[2016-12-30] MEDS: AMLODIPINE BESYLATE 5 MG TAB PO SCH (10:53)
[2016-12-30] MEDS: SIMETHICONE 80 MG CHEW PO PRN (10:54)
[2016-12-30 12:18] VITALS: BP 161/73; PULSE 60; TEMP 36.9; O2SAT 93
--- NOTE | 2016-12-30 12:22 | REHAB PROGRESS NOTE ---
DATE: 12/30/2016 DATE: 12/30/2016. Thank for the referral for rehabilitation. The patient concurrently referred to [facility]. The patient accepting admission to [facility], awaiting medical stability and insurance approval. Will accept in transfer. See patient and detailed consultation upon arrival.
--- NOTE | 2016-12-30 13:35 | Cardiology Follow-Up ---
Subjective General Date of Service: Dec 30, 2016. Pt evaluation today including: conversation w/ patient, physical exam, chart review, lab review, review of studies, review of inpatient medication list History of Present Illness The patient is a 61 year old female seen in follow up. Left upper extremity strength is improving. Denies CP or SOB. No recurrent atrial fibrillation or atrial tachycardia on telemetry. BP remains elevated. Amlodipine restarted today. Allergies Coded Allergies: BEE STING (Verified Allergy, Unknown, SWELLING - LOCALIZED AT STING AREA, 12/25/16) NO KNOWN DRUG ALLERGIES (Verified Allergy, Unknown, , 12/25/16) Social History Smoking Status: Never Smoker Hx Tobacco Use In Past Year?: No Hx Alcohol Use - Type And Amou: Yes (WEEKENDS/FEW DRINKS ) Hx Substance Use - Type And Am: No Review of Systems Respiratory: No cough, No sputum, No wheezing, No shortness of breath, No dyspnea at rest, No hemoptysis Cardiac: No chest pain, No orthopnea, No PND, No edema, No claudication, No palpitations Physical Exam Vital Signs Last Vital Signs Documentation Date Time Temp Pulse Resp B/P (MAP) Pulse Ox O2 Delivery O2 Flow Rate FiO2 12/30/16 12:18 36.9 60 16 161/73 (102) 93 Room Air 12/30/16 12:00 2.0 12/27/16 16:00 94 Physical Exam Head: normocephalic Neck: supple, trachea midline Lungs: Auscultation: breath sounds normal, no wheezing, no rales/crackles, no rhonchi Cardiovascular: Heart Auscultation: RRR, normal S1, normal S2, no murmurs Abdomen: Inspection & Palpation: soft, non-distended, no tenderness, guarding & rebound Extremities: no cyanosis, no edema, no clubbing, no ulcers Neurologic: Gait & Station: pertinent finding (left sided weakness) Assessment and Plan Assessment and Plan FINAL IMPRESSION: 1. Acute right sided cerebrovascular accident secondary to ARLYN occlusion. -left sided weakness improving. 2. Brief milagros of paroxysmal atrial fibrillation (22beats) 12/27/16 - no recurrence - possibly related to elevated catecholamines in secondary to acute CVA and post-operative state. 3. Brief milagros of paroxysmal atrial tachycardia today 4. Uncontrolled HTN - amlodipine restarted 5. Adenocarcinoma of the colon status post colon resection. 6. Diabetes type 2. PLAN AND RECOMMENDATIONS: Continue dual antiplatelet therapy and beta aline. Plan to restart losartan 50mg in 24-48 hours. Increase atorvastatin to 80mg daily. Monitor telemetry. If patient develops recurrent or sustained episode of atrial fibrillation would reconsider addition of anticoagulation. She will require a 14 - 30 day monitor an outpatient. Laboratory Results Last 24 Hours Test 12/29/16 16:14 12/29/16 20:14 12/30/16 06:05 12/30/16 06:21 Bedside Glucose 117 mg/dl 165 mg/dl 110 mg/dl White Blood Count 7.58 K/uL Red Blood Count 3.45 M/uL Hemoglobin 10.1 g/dL Hematocrit 30.5 % Mean Corpuscular Volume 88.4 fL Mean Corpuscular Hemoglobin 29.3 pg Mean Corpuscular Hemoglobin Concent 33.1 g/dl Platelet Count 220 K/uL Mean Platelet Volume 9.3 fL Neutrophils (%) (Auto) 70.0 % Lymphocytes (%) (Auto) 19.1 % Monocytes (%) (Auto) 7.5 % Eosinophils (%) (Auto) 3.0 % Basophils (%) (Auto) 0.1 % Neutrophils # (Auto) 5.30 K/uL Lymphocytes # (Auto) 1.45 K/uL Monocytes # (Auto) 0.57 K/uL Eosinophils # (Auto) 0.23 K/uL Basophils # (Auto) 0.01 K/uL RDW Standard Deviation 42.7 fL RDW Coefficient of Variation 13.2 % Immature Granulocyte % (Auto) 0.3 % Immature Granulocyte # (Auto) 0.02 K/uL Sodium Level 141 mmol/L Potassium Level 3.8 mmol/L Chloride Level 102 mmol/L Carbon Dioxide Level 31 mmol/L Anion Gap 8.0 mmol/L Blood Urea Nitrogen 6 mg/dl Creatinine 0.41 mg/dl Est Creatinine Clear Calc Drug Dose 180.7 ml/min Estimated GFR () 128.3 Estimated GFR (Non- 110.7 BUN/Creatinine Ratio 15.0 Random Glucose 117 mg/dl Calcium Level 8.4 mg/dl Test 12/30/16 11:00 Bedside Glucose 138 mg/dl
[2016-12-30 15:26] VITALS: BP 170/72; PULSE 57; TEMP 37; O2SAT 96
--- NOTE | 2016-12-30 17:19 | PROGRESS NOTE ---
DATE: 12/30/2016 Nenita is continuing to improve, the magnitude of her improvement is less today than it had been yesterday over the status she had on the weekend, but she is still is better, at least in terms of the left arm function and the left leg, although the latter is still not back to her baseline. She is able to walk on it. She has pretty good facility of rapid repetitive motions. There is minimal drift to the left arm and there is no left upper motor neuron facial paresis of significance, her visual holder are fine. She has no sensory neglect to bilaterally presented stimuli. I discussed the case with Dr. Vaishali Machuca today who just assumed her care and apparently unbeknownst to me the subcutaneous heparin I thought had been started over the weekend had never been started, so she was on 2 antiplatelet drugs. It is felt that she is at risk for DVT and subQ heparin is needed. So at this point, the policy should be to put her on the subQ heparin and pick one of the 2 antiplatelet drugs likely Plavix and continue this until the heparin is stopped. At that point dual antiplatelets will be reinstituted. She had a short run of atrial fibrillation and is going to need an outpatient evaluation with either a Zio patch or CardioNet monitor to see if she is going in and out of this arrythmia. Obviously if she is going in and out of atrial fibrillation, then antiplatelet drugs are not going to be effective in preventing thromboembolic events and she is going to need to either be on a novel anticoagulant or Coumadin and this decision will have to rest with the physicians that see her in the future. At some point we need to get another CT scan. I will put an order in [facility] and get it done tomorrow just to be sure we do not have any hemorrhagic areas, although in light of her progress I doubt this is going to be the case and proceed from there regarding the above anticoagulation program. Hopefully, she will get off to [facility] soon. I will check back with her tomorrow. LG
[2016-12-30 20:10] VITALS: BP 185/72; PULSE 63; TEMP 37; O2SAT 96
[2016-12-30] MEDS: HEPARIN SOD 5000 UNIT/0.5 ML CARP SQ SCH (21:24)
[2016-12-30 23:22] VITALS: BP 165/70; PULSE 55; TEMP 37.2; O2SAT 95
[2016-12-31] VITALS (8 sets, daily range): BP systolic 132–206; BP diastolic 68–90; PULSE 55–92; TEMP 36.8–37.5; O2SAT 91–100
[2016-12-31] MEDS: HEPARIN SOD 5000 UNIT/0.5 ML CARP SQ SCH ×3 (05:35→21:36)
[2016-12-31 06:07] LABS: MEAN CORPUSCULAR HGB CONC 33.8 g/dl (32-36); MEAN PLATELET VOLUME 9.3 fL (7.4-10.4); PLATELET COUNT 264 K/uL (130-400); RED BLOOD COUNT 3.72 M/uL (4.2-5.4)
[2016-12-31 06:47] LABS: BUN/CREATININE RATIO 13.2 (10-20); CALCIUM 8.5 mg/dl (8.5-10.1); CREATININE 0.42 mg/dl (0.60-1.20); MAGNESIUM 1.9 mg/dl (1.8-2.4); POTASSIUM 3.2 mmol/L (3.5-5.1)
[2016-12-31] MEDS: INSULIN ASPART 100 UNITS/ML 3 ML PEN SC SCH ×4 (07:00→20:55)
--- NOTE | 2016-12-31 07:40 | Surgery Progress Note ---
Surgery Progress Note Date of Service Dec 31, 2016. Subjective Post OP Day: 6 + bowel movement, + pain controlled, + diet (regular), No nausea Objective Vital Signs: Date Time Temp Pulse Resp B/P (MAP) Pulse Ox O2 Delivery O2 Flow Rate FiO2 12/31/16 07:33 37.1 55 19 180/68 (105) 94 Room Air 12/31/16 04:00 Room Air 12/31/16 03:49 173/68 (103) 12/31/16 03:28 37.5 65 18 199/83 (121) 93 Room Air 206/90 (128) 12/31/16 00:00 Room Air 12/30/16 23:22 37.2 55 18 165/70 (101) 95 Room Air 12/30/16 20:10 37.0 63 20 185/72 (109) 96 Room Air 12/30/16 20:00 Room Air 12/30/16 16:00 Nasal Cannula 2.0 12/30/16 15:26 37.0 57 16 170/72 (104) 96 Nasal Cannula 2.0 12/30/16 12:18 36.9 60 16 161/73 (102) 93 Room Air 12/30/16 12:00 Nasal Cannula 2.0 12/30/16 08:00 Nasal Cannula 2.0 12/30/16 07:48 36.9 58 20 170/80 (110) 92 Nasal Cannula 2.0 Physical Exam: Nico drainage (165/65), urine output (1200) Abdomen: non tender, non distended, soft Laboratory Results: Results Past 24 Hours Test 12/30/16 11:00 12/30/16 16:10 12/30/16 19:48 12/31/16 05:52 Range/Units Bedside Glucose 138 133 155 70-90 mg/dl White Blood Count 8.40 4.8-10.8 K/uL Red Blood Count 3.72 4.2-5.4 M/uL Hemoglobin 10.8 12.0-16.0 g/dL Hematocrit 32.0 37-47 % Mean Corpuscular Volume 86.0 80-100 fL Mean Corpuscular Hemoglobin 29.0 25-34 pg Mean Corpuscular Hemoglobin Concent 33.8 32-36 g/dl RDW Standard Deviation 41.2 36.4-46.3 fL RDW Coefficient of Variation 13.0 11.5-14.5 % Platelet Count 264 130-400 K/uL Mean Platelet Volume 9.3 7.4-10.4 fL Sodium Level 138 136-145 mmol/L Potassium Level 3.2 3.5-5.1 mmol/L Chloride Level 99 98-107 mmol/L Carbon Dioxide Level 31 21-32 mmol/L Anion Gap 8.0 3-11 mmol/L Blood Urea Nitrogen 6 7-18 mg/dl Creatinine 0.42 0.60-1.20 mg/dl Est Creatinine Clear Calc Drug Dose 177.2 ml/min Estimated GFR () 127.3 Estimated GFR (Non- 109.9 BUN/Creatinine Ratio 13.2 10-20 Random Glucose 126 70-99 mg/dl Calcium Level 8.5 8.5-10.1 mg/dl Magnesium Level 1.9 1.8-2.4 mg/dl Test 12/31/16 06:46 Range/Units Bedside Glucose 131 70-90 mg/dl Microbiology Results 12/30/16 C.difficile Toxin B Gene (PCR) - Final, Complete No C. difficile toxin B gene detected 12/30/16 WBC Smear, Received Pending 12/30/16 Shiga Toxin Test, Received Pending 12/30/16 Stool Culture, Received Pending Assessment & Plan s/p lap assisted sigmoid colectomy CVA HTN DM II tolerating diet many loose BM yesterday, improving, C. diff negative PT/OT, walked across room repeat CT scheduled today d/c planning, awaiting approval for rehab, probably keep here today K+ 3.2, will give 40 meq po this AM
[2016-12-31] MEDS ORDERED: POTASSIUM CHLORIDE 10 MEQ TABCR PO ONE (07:45)
[2016-12-31] MEDS ORDERED: POTASSIUM CHLORIDE 20 MEQ TABCR PO SCH (08:00)
--- NOTE | 2016-12-31 08:30 | DIAGNOSTIC IMAGING REPORT ---
CT OF THE HEAD WITHOUT CONTRAST CLINICAL HISTORY: CVA right hemisphere. COMPARISON STUDY: MRI of the brain December 26, [address] December 27, 2016. CT DOSE: 638.56 mGycm TECHNIQUE: Helical axial images of the head were obtained without IV contrast. Automated exposure control was utilized for the study. FINDINGS: No acute intracranial hemorrhage, midline shift or mass effect is present. There has been expected interval resolution of the multifocal infarcts within the right cerebral hemisphere which are most evident within the right frontoparietal region. Ventricular system is stable. Basilar cisterns are patent. There is no significant mass effect. There are no significant calvarial abnormalities. Extensive intracranial vascular calcification is noted. IMPRESSION: Expected evolution of the multifocal acute infarcts within the right cerebral hemisphere. No mass effect or evidence of hemorrhagic conversion. Electronically signed by: Geraldo Domínguez M.D. 12/31/2016 8:29 AM Dictated Date/Time: 12/31/2016 8:23 AM
[2016-12-31] MEDS: LOSARTAN POTASSIUM 50 MG TAB PO SCH (08:41)
[2016-12-31] MEDS: AMLODIPINE BESYLATE 5 MG TAB PO SCH (08:42)
[2016-12-31] MEDS: ATORVASTATIN 40 MG TAB PO SCH (08:43)
[2016-12-31] MEDS: PANTOprazole SOD 40 MG TAB PO SCH ×2 (08:43→21:36)
[2016-12-31] MEDS: METOPROLOL TARTRATE 25 MG TAB PO SCH ×2 (08:43→21:00)
[2016-12-31] MEDS: CLOPIDOGREL BISULFATE 75 MG TAB PO SCH (08:44)
[2016-12-31] MEDS ORDERED: ATORVASTATIN 40 MG TAB PO SCH (09:00)
--- NOTE | 2016-12-31 13:44 | Cardiology Follow-Up ---
Subjective General Date of Service: Dec 31, 2016. Pt evaluation today including: conversation w/ patient, physical exam, chart review, lab review, review of studies, review of inpatient medication list History of Present Illness The patient is a 61 year old female seen in follow-up. Continues to improve. Left upper extremity strength increasing. She was able to walk across a room this morning. She is encouraged by her progress. Denies chest pain or shortness of breath. Telemetry demonstrates a short milagros of PSVT with a Merchant C versus nonsustained VT. No recurrent atrial fibrillation. Tolerating medications and diet. Offers no complaints. Losartan restarted this morning. Allergies Coded Allergies: BEE STING (Verified Allergy, Unknown, SWELLING - LOCALIZED AT STING AREA, 12/25/16) NO KNOWN DRUG ALLERGIES (Verified Allergy, Unknown, , 12/25/16) Social History Smoking Status: Never Smoker Hx Tobacco Use In Past Year?: No Hx Alcohol Use - Type And Amou: Yes (WEEKENDS/FEW DRINKS ) Hx Substance Use - Type And Am: No Review of Systems Respiratory: No cough, No wheezing, No shortness of breath, No dyspnea at rest , No hemoptysis Cardiac: No chest pain, No orthopnea, No PND, No edema Physical Exam Vital Signs Last Vital Signs Documentation Date Time Temp Pulse Resp B/P (MAP) Pulse Ox O2 Delivery O2 Flow Rate FiO2 12/31/16 12:00 Room Air 12/31/16 11:41 37.0 57 18 137/73 (94) 96 12/30/16 16:00 2.0 12/27/16 16:00 94 Physical Exam Head: normocephalic Neck: supple, trachea midline Lungs: Auscultation: breath sounds normal, no wheezing, no rales/crackles, no rhonchi Cardiovascular: Heart Auscultation: RRR, normal S1, normal S2, no murmurs Abdomen: Inspection & Palpation: soft, non-distended, no tenderness, guarding & rebound Extremities: no cyanosis, no edema, no clubbing, no ulcers Neurologic: Gait & Station: pertinent finding (left sided weakness) Assessment and Plan Assessment and Plan FINAL IMPRESSION: 1. Acute right sided cerebrovascular accident secondary to ARLYN occlusion. -left sided weakness improving. 2. Brief milagros of paroxysmal atrial fibrillation (22beats) 12/27/16 - no recurrence - possibly related to elevated catecholamines in secondary to acute CVA and post-operative state. 3. Brief milagros of paroxysmal atrial tachycardia 4. Uncontrolled HTN - amlodipine and losartan restarted - Most recent blood pressure assessment within acceptable range. 5. Adenocarcinoma of the colon status post colon resection. 6. Diabetes type 2. PLAN AND RECOMMENDATIONS: Continue dual antiplatelet therapy, beta aline, high-dose statin, amlodipine, and losartan. Will continue to monitor blood pressure and telemetry. Recommend 14-30 day monitoring analyst as outpatient. Will continue to follow during hospitalization. Laboratory Results Last 24 Hours Test 12/30/16 16:10 12/30/16 19:48 12/31/16 05:52 12/31/16 06:46 Bedside Glucose 133 mg/dl 155 mg/dl 131 mg/dl White Blood Count 8.40 K/uL Red Blood Count 3.72 M/uL Hemoglobin 10.8 g/dL Hematocrit 32.0 % Mean Corpuscular Volume 86.0 fL Mean Corpuscular Hemoglobin 29.0 pg Mean Corpuscular Hemoglobin Concent 33.8 g/dl RDW Standard Deviation 41.2 fL RDW Coefficient of Variation 13.0 % Platelet Count 264 K/uL Mean Platelet Volume 9.3 fL Sodium Level 138 mmol/L Potassium Level 3.2 mmol/L Chloride Level 99 mmol/L Carbon Dioxide Level 31 mmol/L Anion Gap 8.0 mmol/L Blood Urea Nitrogen 6 mg/dl Creatinine 0.42 mg/dl Est Creatinine Clear Calc Drug Dose 177.2 ml/min Estimated GFR () 127.3 Estimated GFR (Non- 109.9 BUN/Creatinine Ratio 13.2 Random Glucose 126 mg/dl Calcium Level 8.5 mg/dl Magnesium Level 1.9 mg/dl
[2016-12-31] MEDS ORDERED: POTASSIUM CHLORIDE 20 MEQ TABCR PO ONE (14:00)
--- NOTE | 2016-12-31 15:23 | Neurology Progress Notes ---
Neurology Progress Note Date of Service Dec 31, 2016. Ambrocio Gutierres is 61 years old, PMH colon cancer with resection, transient numbness of her left side after the resection. She was found to have a right hemispheric infarction in addition to middle cerebral artery and a CTA revealed multiple areas of high grade stenosis and a short segment occlusion in the intercavernous portion of the internal carotid artery on the right. There is also to a lesser degree intracranial internal carotid stenoses on the left and also in the right vertebral artery. She was not offered tPa. Her medical history includes HTN, internal carotid stenosis, a fib, hypothyroid, DM2, left renal mass. Objective Date Time Temp Pulse Resp B/P (MAP) Pulse Ox O2 Delivery O2 Flow Rate FiO2 12/31/16 14:25 12/31/16 12:00 Room Air 12/31/16 11:41 37.0 57 18 137/73 (94) 96 Room Air 12/31/16 08:00 Room Air 12/31/16 07:33 37.1 55 19 180/68 (105) 94 Room Air 12/31/16 04:00 Room Air 12/31/16 03:49 173/68 (103) 12/31/16 03:28 37.5 65 18 199/83 (121) 93 Room Air 206/90 (128) 12/31/16 00:00 Room Air 12/30/16 23:22 37.2 55 18 165/70 (101) 95 Room Air 12/30/16 20:10 37.0 63 20 185/72 (109) 96 Room Air 12/30/16 20:00 Room Air 12/30/16 16:00 Nasal Cannula 2.0 12/30/16 15:26 37.0 57 16 170/72 (104) 96 Nasal Cannula 2.0 Last 24 Hours Test 12/30/16 16:10 12/30/16 19:48 12/31/16 05:52 12/31/16 06:46 Bedside Glucose 133 mg/dl 155 mg/dl 131 mg/dl White Blood Count 8.40 K/uL Red Blood Count 3.72 M/uL Hemoglobin 10.8 g/dL Hematocrit 32.0 % Mean Corpuscular Volume 86.0 fL Mean Corpuscular Hemoglobin 29.0 pg Mean Corpuscular Hemoglobin Concent 33.8 g/dl RDW Standard Deviation 41.2 fL RDW Coefficient of Variation 13.0 % Platelet Count 264 K/uL Mean Platelet Volume 9.3 fL Sodium Level 138 mmol/L Potassium Level 3.2 mmol/L Chloride Level 99 mmol/L Carbon Dioxide Level 31 mmol/L Anion Gap 8.0 mmol/L Blood Urea Nitrogen 6 mg/dl Creatinine 0.42 mg/dl Est Creatinine Clear Calc Drug Dose 177.2 ml/min Estimated GFR () 127.3 Estimated GFR (Non- 109.9 BUN/Creatinine Ratio 13.2 Random Glucose 126 mg/dl Calcium Level 8.5 mg/dl Magnesium Level 1.9 mg/dl Test 12/31/16 14:40 Imaging: CT head- Expected evolution of the multifocal acute infarcts within the right cerebral hemisphere. No mass effect or evidence of hemorrhagic conversion. Exam: Physical Exam: Constitutional:, appearance nourished, healthy and obese Ears, Nose, Mouth and Throat: mucous membranes moist, no injection and skin normal, eyes normal Cardiovascular: normal S-1 and S-2 and regular rate and rhythm Respiratory: clear to auscultation (CTA) and no rales, rhonchi or wheeze Musculoskeletal: non pitting peripheral edema and good distal pulses Skin: no stigmata of neurocutaneous disease noted and normal and intact Eyes: extraocular muscles intact (EOMI) and pupils equal, round and reactive to light (PERRL) NEUROLOGIC EXAMINATION: Mental status: Alert and interactive Oriented to full date and location Oriented to person Speech fluent with no evidence of aphasia Cranial Nerves smile eye brow raise symmetric, tongue midline Sensory: light touch Coordination: right arm finger to nose without bi pass, left arm unable to lift against gravity Gait/Stance: Posture lying in bed Motor: unable to evaluate due to left arm weakness Strength: biceps triceps hand stage rigger 5/5 R. left hand stage rigger 4/5, biceps 3/5, right hip flex 5 /5 left able to left against gravity but unable to maintain, left plantar flex absent Current Inpatient Medications Medications (Trade) Dose Ordered Sig/Naila Route Start Time Stop Time Status Last Admin Dose Admin Ondansetron HCl (Zofran Inj) 4 mg Q6H PRN IV 12/25/16 10:45 01/24/17 10:44 Future hold 12/28/16 16:49 4 MG Glucose (Glucose 40% Gel) 15-30 GRAMS 15 GRAMS... UD PRN PO 12/25/16 10:45 01/24/17 10:44 Glucose (Glucose Chew Tab) 4-8 Tablets 4 Tabl... UD PRN PO 12/25/16 10:45 01/24/17 10:44 Dextrose (Dextrose 50% 50ML Syringe) 25-50ML OF 50% DW IV FOR... UD PRN IV 12/25/16 10:45 01/24/17 10:44 Glucagon (Glucagon Inj) 1 mg UD PRN SQ 12/25/16 10:45 01/24/17 10:44 Clopidogrel Bisulfate (plAVix TAB) 75 mg QAM PO 12/27/16 09:00 01/26/17 08:59 Future hold 12/31/16 08:44 75 MG Miscellaneous Information (Pharmacist Discharge Med Rec Consult) 1 ea UD PRN N/A 12/27/16 19:30 01/26/17 19:29 Heparin Sodium (Porcine) (Heparin Sq 5000 Unit/0.5ml) 5,000 unit Q8 SQ 12/28/16 06:00 01/27/17 05:59 Future Hold 12/31/16 05:35 5,000 UNIT Metoprolol Tartrate (Lopressor Tab) 12.5 mg BID PO 12/28/16 09:00 01/27/17 08:59 12/30/16 21:20 12.5 MG Acetaminophen (Tylenol Tab) 1,000 mg Q6H PRN PO 12/28/16 08:30 01/27/17 08:29 Pantoprazole Sodium (Protonix Tab) 40 mg BID PO 12/28/16 09:30 01/27/17 09:29 12/31/16 08:43 40 MG Insulin Aspart (novoLOG ASPART) SLIDING SCALE If C... ACHS SC 12/28/16 11:00 01/27/17 10:59 12/30/16 21:23 1 UNITS Oxycodone/ Acetaminophen (Percocet 5-325mg Tab) 1 tab Q4H PRN PO 12/29/16 09:00 01/12/17 08:59 Aspirin (Ecotrin Tab) 81 mg QAM PO 12/30/16 09:00 01/29/17 08:59 Future Hold 12/30/16 08:55 81 MG Simethicone (Mylicon Chew Tab) 80 mg Q6H PRN PO 12/29/16 13:00 01/28/17 12:59 12/30/16 10:54 80 MG Amlodipine Besylate (Norvasc Tab) 10 mg QAM PO 12/30/16 10:00 01/29/17 09:59 12/31/16 08:42 10 MG Atorvastatin Calcium (Lipitor Tab) 80 mg QAM PO 12/31/16 09:00 01/30/17 08:59 12/31/16 08:43 80 MG Losartan Potassium (coZAAR TAB) 50 mg QAM PO 12/31/16 09:00 01/30/17 08:59 12/31/16 08:41 50 MG Impression 61 year old female with colon cancer resection-right hemispheric infarct and high grade stenosis Plan 1. renal function with lytes -correction per primary team 2. aspirin 81 mg started and still currently on heparin gtt- will start plavix 75 mg once heparin gtt is stopped 3. optimize DM, HTN, DL 4. PT/OT speech for discharge needs- will need mofit boot for foot drop on left 5. OOB as tolerated 6. will likely need rehab prior to return home 7. will see in office in 3-4 weeks after discharge from rehab Maira Martino PAC-neurology I have seen and discussed above patient with Dr Shiva Cruz, neurology Above reviewed and paatient seen and examined she is better but progress has slowed a bit and she will need rehab status of colon ca not clear doubt mets as her primary lesion was small but will defer to surgery and oncology on this issue on haparin sub cu and plavix and will hopefully be going to [facility] soon. zio patch monitoring will be outpateint and defer to cardiology on this issue but frankly doubt she will be found to hav paroxysmal a fib and dual antiplatelet rx will be the ultimate rx here for three months then single antiplatelet likely with asa We will see in our office four to six weeks post release from [facility]. Shiva Cruz MD
[2016-12-31 15:33] LABS: MANUAL MICROSCOPIC REQUIRED? YES; REVIEW REQ? NO; URINE APPEARANCE SLIGHTLY CLOUDY (CLEAR); URINE COLOR RED
[2016-12-31 15:34] LABS: SULFASALICYLIC ACID POS (NEG); URINE SPECIFIC GRAVITY 1.006 (1.000-1.030)
[2016-12-31 15:38] LABS: URINE RBC >30 /hpf (0-4)
[2016-12-31 15:39] LABS: URINE BACTERIA NEG (NEG)
--- NOTE | 2016-12-31 16:07 | Progress Note ---
Medicine Progress Note Date & Time of Visit: Dec 31, 2016 at 10:32. Subjective 61 yo F with colon cancer s/p surgical resection s/p stroke -she is slowly regaining function on her left side and is set for going to [facility] when diarrhea has improved -denies any current symptoms and says that the gas pains she felt yesterday have resolved. -gross hematuria into brock was reported and heparin was held-Urology consulted. This was called to me by nurse after evaluation. Objective Last 8 Hrs Date Time Temp Pulse Resp B/P (MAP) Pulse Ox O2 Delivery O2 Flow Rate FiO2 12/31/16 08:00 Room Air 12/31/16 07:33 37.1 55 19 180/68 (105) 94 Room Air 12/31/16 04:00 Room Air 12/31/16 03:49 173/68 (103) 12/31/16 03:28 37.5 65 18 199/83 (121) 93 Room Air 206/90 (128) Physical Exam: GEN: WNWD, in no acute distress, alert and appropriate HEENT: NC/AT, normal sclerae, MMM CARDIO: reg rate, S1/2 heard without m/g/r, RP and DP palpable 2+ bilat, no LE swelling or edema LUNGS: CTA bilaterally, no crackles, rales or wheezes, good diaphragmatic excursion ABD: soft, non-tender, non-distended, no rebound or guarding, +BS, incision covered with dressing that is c/d/i, no erythema around staple closures that are exposed. FREDA drain is in place on RLQ draining serosanguinous fluid. 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 SKIN: warm and dry Laboratory Results: 12/31/16 05:52 12/31/16 05:52 Test 12/25/16 06:10 12/25/16 11:12 12/25/16 12:52 12/27/16 06:30 Carcinoembryonic Antigen 0.5 ng/ml (0-2.5) Prothrombin Time 10.6 SECONDS (9.0-12.0) Prothromb Time International Ratio 1.0 (0.9-1.1) Activated Partial Thromboplast Time 24.8 SECONDS (21.0-31.0) Partial Thromboplastin Ratio 1.0 Lactic Acid Level 1.0 mmol/L (0.4-2.0) Total Bilirubin 0.7 mg/dl (0.2-1) Aspartate Amino Transf (AST/SGOT) 17 U/L (15-37) Alanine Aminotransferase (ALT/SGPT) 27 U/L (12-78) Alkaline Phosphatase 98 U/L (45-117) Total Protein 7.8 gm/dl (6.4-8.2) Albumin 3.8 gm/dl (3.4-5.0) Globulin 4.0 gm/dl (2.5-4.0) Albumin/Globulin Ratio 1.0 (0.9-2) Estimated Average Glucose 140 mg/dl Hemoglobin A1c 6.5 % (4.5-5.6) Test 12/28/16 05:46 12/29/16 05:25 12/30/16 06:05 12/31/16 05:52 Triglycerides Level 143 mg/dl (0-150) Cholesterol Level 124 mg/dl (0-200) HDL Cholesterol 43 mg/dl LDL Cholesterol, Calculated 52 mg/dl VLDL Cholesterol, Calculated 29 mg/dl Cholesterol/HDL Ratio 2.9 Phosphorus Level 2.9 mg/dl (2.5-4.9) Immature Granulocyte % (Auto) 0.3 % White Blood Count 7.58 K/uL (4.8-10.8) Red Blood Count 3.45 M/uL (4.2-5.4) 3.72 M/uL (4.2-5.4) Hemoglobin 10.1 g/dL (12.0-16.0) Hematocrit 30.5 % (37-47) Mean Corpuscular Volume 88.4 fL (80-100) 86.0 fL (80-100) Mean Corpuscular Hemoglobin 29.3 pg (25-34) 29.0 pg (25-34) Mean Corpuscular Hemoglobin Concent 33.1 g/dl (32-36) 33.8 g/dl (32-36) Platelet Count 220 K/uL (130-400) Mean Platelet Volume 9.3 fL (7.4-10.4) 9.3 fL (7.4-10.4) Neutrophils (%) (Auto) 70.0 % Lymphocytes (%) (Auto) 19.1 % Monocytes (%) (Auto) 7.5 % Eosinophils (%) (Auto) 3.0 % Basophils (%) (Auto) 0.1 % Neutrophils # (Auto) 5.30 K/uL (1.4-6.5) Lymphocytes # (Auto) 1.45 K/uL (1.2-3.4) Monocytes # (Auto) 0.57 K/uL (0.11-0.59) Eosinophils # (Auto) 0.23 K/uL (0-0.5) Basophils # (Auto) 0.01 K/uL (0-0.2) Immature Granulocyte # (Auto) 0.02 K/uL (0.00-0.02) RDW Standard Deviation 41.2 fL (36.4-46.3) RDW Coefficient of Variation 13.0 % (11.5-14.5) Anion Gap 8.0 mmol/L (3-11) Est Creatinine Clear Calc Drug Dose 177.2 ml/min Estimated GFR () 127.3 Estimated GFR (Non- 109.9 BUN/Creatinine Ratio 13.2 (10-20) Calcium Level 8.5 mg/dl (8.5-10.1) Magnesium Level 1.9 mg/dl (1.8-2.4) Test 12/31/16 06:46 12/31/16 14:40 Bedside Glucose 131 mg/dl (70-90) Urine Color RED Urine Appearance SLIGHTLY CLOUDY (CLEAR) Urine pH (4.5-7.5) Urine Specific [place] 1.006 (1.000-1.030) Urine Protein (NEG) Urine Glucose (UA) (NEG) Urine Ketones (NEG) Urine Occult Blood (NEG) Urine Nitrite (NEG) Urine Bilirubin (NEG) Urine Urobilinogen (NEG) Urine Leukocyte Esterase (NEG) Urine RBC >30 /hpf (0-4) Urine WBC 5-10 /hpf (0-5) Urine Epithelial Cells 20-30 /lpf (0-5) Urine Bacteria NEG (NEG) Date/Time Source Procedure Growth Status 12/25/16 20:40 Nasal MRSA DNA Surveillance Screen - Final Specimen Negative for MRSA by DNA Probe Complete 12/30/16 17:50 Stool C.difficile Toxin B Gene (PCR) - Final No C. difficile toxin B gene detected Complete 12/31/16 14:40 Urine,Catheterized Urine Culture Pending Received Last 24 Hours Test 12/30/16 11:00 12/30/16 16:10 12/30/16 19:48 12/31/16 05:52 Bedside Glucose 138 mg/dl 133 mg/dl 155 mg/dl White Blood Count 8.40 K/uL Red Blood Count 3.72 M/uL Hemoglobin 10.8 g/dL Hematocrit 32.0 % Mean Corpuscular Volume 86.0 fL Mean Corpuscular Hemoglobin 29.0 pg Mean Corpuscular Hemoglobin Concent 33.8 g/dl RDW Standard Deviation 41.2 fL RDW Coefficient of Variation 13.0 % Platelet Count 264 K/uL Mean Platelet Volume 9.3 fL Sodium Level 138 mmol/L Potassium Level 3.2 mmol/L Chloride Level 99 mmol/L Carbon Dioxide Level 31 mmol/L Anion Gap 8.0 mmol/L Blood Urea Nitrogen 6 mg/dl Creatinine 0.42 mg/dl Est Creatinine Clear Calc Drug Dose 177.2 ml/min Estimated GFR () 127.3 Estimated GFR (Non- 109.9 BUN/Creatinine Ratio 13.2 Random Glucose 126 mg/dl Calcium Level 8.5 mg/dl Magnesium Level 1.9 mg/dl Test 12/31/16 06:46 Bedside Glucose 131 mg/dl Date/Time Source Procedure Growth Status 12/30/16 17:50 Stool C.difficile Toxin B Gene (PCR) - Final No C. difficile toxin B gene detected Complete 12/30/16 17:50 Stool WBC Smear Pending Received 12/30/16 17:50 Stool Shiga Toxin Test Pending Received 12/30/16 17:50 Stool Stool Culture Pending Received Diagnostic Imaging: CT OF THE HEAD WITHOUT CONTRAST CLINICAL HISTORY: CVA right hemisphere. COMPARISON STUDY: MRI of the brain December 26, [address] December 27, 2016. CT DOSE: 638.56 mGycm TECHNIQUE: Helical axial images of the head were obtained without IV contrast. Automated exposure control was utilized for the study. FINDINGS: No acute intracranial hemorrhage, midline shift or mass effect is present. There has been expected interval resolution of the multifocal infarcts within the right cerebral hemisphere which are most evident within the right frontoparietal region. Ventricular system is stable. Basilar cisterns are patent. There is no significant mass effect. There are no significant calvarial abnormalities. Extensive intracranial vascular calcification is noted. IMPRESSION: Expected evolution of the multifocal acute infarcts within the right cerebral hemisphere. No mass effect or evidence of hemorrhagic conversion. Assessment & Plan 61 yoF with colon cancer s/p surgical resection s/p stroke 1. Acute R MCA stroke-improvement in function of hand and leg, cont daily PT/ OT. Cont Plavix per Neuro. Hold ASA while on DVT prophy, then resume DAPT at discharge x 3 months min. Cont permissive HTN. Cont Lipitor 80. 12/31-Repeat head CT reveals no hemorrhagic conversion this morning. Acute hematuria in [place], no infection present. Urology was consulted. Holding heparin at this time. continuing Plavix only. 2. Lone afib-thought likely 2/2 catecholamine surge post-operatively. Not recurring, Cards following and does not recommend anticoauglation at this time. Cont to monitor on telemetry. Cont Metoprolol per Cardiology. 3. Colon cancer s/p laparoscopic lysis of abdominal adhesions and open sigmoid resection by Dr. Delgado, cont IS, NGT removed. Healing appropriately per surgery. She has been having some explosive diarrhea and gas pains that appear to be improving spontaneously. Instructed to avoid dairy products and gas- producing foods. C-diff is negative and stool culture is pending. 4. Renal mass-CT a/p revealed 1 x 3 cm mass on L kidney. Discussed with Urology, Dr. Parikh, who states that she should be seen in one month as outpatient to decide on further workup for this mass. She should have follow- up with PCP within one week of discharge, who will be able to place an outpatient referral for this. 5. HTN-cont amlodipine and Norvasc, allow permissive HTN 6. DMII-hold metformin, cont ISS and Accuchecks. Blood sugar is well- controlled on ISS. 7. Dyslipidemia-cont Lip 80mg 8. Morbid Obesity 9. Anemia s/p procedure with blood loss. Cont to monitor PRN. Currently stable with no indication for blood transfusion. Will monitor H/H tonight in presence of new hematuria 10. Hypokalemia likely 2/2 diarrhea-replace PO, cont supportive care and recheck in am. 11. Diarrhea-poss related to recent bowel surgery, defer to Surgical team for management. 12. Gross hematuria-acute, poss related to starting heparin last night which has been held. Pt does have a renal mass. Consulting Urology formally for evaluation. DVT Prophylaxis-heparin added back yesterday, but held in light of gross hematuria. SCDs FULL CODE DISPOSITION: Agree with Surgery--Will transfer to rehab once diarrhea has improved. She has been accepted to [facility]. Likely 1-2 more days Vaishali Machuca DO [facility] Thank you for this consultation. We will follow the patient with you during their hospital stay. You can reach a member of the [facility] Team 09/02 via pager @ [phone]. You can reach me via cell @ [phone]. Vaishali Machuca DO [facility] Consultants: Manufacturing Engineering Technologist Cardio Neuro Procedures: Laparoscopic lysis of dense adhesions, sigmoid colon resection for side Current Inpatient Medications: Current Inpatient Medications Medications (Trade) Dose Ordered Sig/Naila Route Start Time Stop Time Status Last Admin Dose Admin Ondansetron HCl (Zofran Inj) 4 mg Q6H PRN IV 12/25/16 10:45 01/24/17 10:44 Future hold 12/28/16 16:49 4 MG Glucose (Glucose 40% Gel) 15-30 GRAMS 15 GRAMS... UD PRN PO 12/25/16 10:45 01/24/17 10:44 Glucose (Glucose Chew Tab) 4-8 Tablets 4 Tabl... UD PRN PO 12/25/16 10:45 01/24/17 10:44 Dextrose (Dextrose 50% 50ML Syringe) 25-50ML OF 50% DW IV FOR... UD PRN IV 12/25/16 10:45 01/24/17 10:44 Glucagon (Glucagon Inj) 1 mg UD PRN SQ 12/25/16 10:45 01/24/17 10:44 Clopidogrel Bisulfate (plAVix TAB) 75 mg QAM PO 12/27/16 09:00 01/26/17 08:59 Future hold 12/31/16 08:44 75 MG Miscellaneous Information (Pharmacist Discharge Med Rec Consult) 1 ea UD PRN N/A 12/27/16 19:30 01/26/17 19:29 Heparin Sodium (Porcine) (Heparin Sq 5000 Unit/0.5ml) 5,000 unit Q8 SQ 12/28/16 06:00 01/27/17 05:59 Future hold 12/31/16 05:35 5,000 UNIT Metoprolol Tartrate (Lopressor Tab) 12.5 mg BID PO 12/28/16 09:00 01/27/17 08:59 12/30/16 21:20 12.5 MG Acetaminophen (Tylenol Tab) 1,000 mg Q6H PRN PO 12/28/16 08:30 01/27/17 08:29 Pantoprazole Sodium (Protonix Tab) 40 mg BID PO 12/28/16 09:30 01/27/17 09:29 12/31/16 08:43 40 MG Insulin Aspart (novoLOG ASPART) SLIDING SCALE If C... ACHS SC 12/28/16 11:00 01/27/17 10:59 12/30/16 21:23 1 UNITS Oxycodone/ Acetaminophen (Percocet 5-325mg Tab) 1 tab Q4H PRN PO 12/29/16 09:00 01/12/17 08:59 Aspirin (Ecotrin Tab) 81 mg QAM PO 12/30/16 09:00 01/29/17 08:59 Future Hold 12/30/16 08:55 81 MG Simethicone (Mylicon Chew Tab) 80 mg Q6H PRN PO 12/29/16 13:00 01/28/17 12:59 12/30/16 10:54 80 MG Amlodipine Besylate (Norvasc Tab) 10 mg QAM PO 12/30/16 10:00 01/29/17 09:59 12/31/16 08:42 10 MG Atorvastatin Calcium (Lipitor Tab) 80 mg QAM PO 12/31/16 09:00 01/30/17 08:59 12/31/16 08:43 80 MG Losartan Potassium (coZAAR TAB) 50 mg QAM PO 12/31/16 09:00 01/30/17 08:59 12/31/16 08:41 50 MG Potassium Chloride (Klor-Con Tab) 40 meq TODAY@1400 ONCE PO 12/31/16 14:00 12/31/16 14:01
--- NOTE | 2016-12-31 18:09 | Urology Consultation ---
History General Date of Service: Dec 31, 2016. Chief Complaint: gross hematuria, left renal mass Primary Care Physician: Shiva Rich III, M.D. Pt seen a urologist before?: No History of Present Illness I am asked by Dr Machuca to evaluate and treat patient for gross hematuria. SHe has a brock for 4 days and had anticoagulation reintroduced and once she was up and around more today she had grossly bloody urine noted in brock bag. Hepearin was stopped and urine is now again yellow in color. Patient uncertain why she has Brock still. She never smoked. She also has a newly diagnosed left renal mass found incidentally on imaging for colon cancer. No prior imaging to compare to. Imaging Imaging: CT Laboratory Results Past 24 Hours Test 12/30/16 19:48 12/31/16 05:52 12/31/16 06:46 12/31/16 11:35 Range/Units Bedside Glucose 155 131 131 70-90 mg/dl White Blood Count 8.40 4.8-10.8 K/uL Red Blood Count 3.72 4.2-5.4 M/uL Hemoglobin 10.8 12.0-16.0 g/dL Hematocrit 32.0 37-47 % Mean Corpuscular Volume 86.0 80-100 fL Mean Corpuscular Hemoglobin 29.0 25-34 pg Mean Corpuscular Hemoglobin Concent 33.8 32-36 g/dl RDW Standard Deviation 41.2 36.4-46.3 fL RDW Coefficient of Variation 13.0 11.5-14.5 % Platelet Count 264 130-400 K/uL Mean Platelet Volume 9.3 7.4-10.4 fL Sodium Level 138 136-145 mmol/L Potassium Level 3.2 3.5-5.1 mmol/L Chloride Level 99 98-107 mmol/L Carbon Dioxide Level 31 21-32 mmol/L Anion Gap 8.0 3-11 mmol/L Blood Urea Nitrogen 6 7-18 mg/dl Creatinine 0.42 0.60-1.20 mg/dl Est Creatinine Clear Calc Drug Dose 177.2 ml/min Estimated GFR () 127.3 Estimated GFR (Non- 109.9 BUN/Creatinine Ratio 13.2 10-20 Random Glucose 126 70-99 mg/dl Calcium Level 8.5 8.5-10.1 mg/dl Magnesium Level 1.9 1.8-2.4 mg/dl Test 12/31/16 14:40 12/31/16 16:09 Range/Units Urine Color RED Urine Appearance SLIGHTLY CLOUDY CLEAR Urine pH 4.5-7.5 Urine Specific [place] 1.006 1.000-1.030 Urine Protein NEG Urine Glucose (UA) NEG Urine Ketones NEG Urine Occult Blood NEG Urine Nitrite NEG Urine Bilirubin NEG Urine Urobilinogen NEG Urine Leukocyte Esterase NEG Urine RBC >30 0-4 /hpf Urine WBC 5-10 0-5 /hpf Urine Epithelial Cells 20-30 0-5 /lpf Urine Bacteria NEG NEG Bedside Glucose 129 70-90 mg/dl Microbiology Results 12/31/16 Urine Culture, Received Pending Labs were reviewed and are within normal limits unless listed below. Labs are available in the chart and at [facility] Past History A Fib, cancer - colon, CVA/TIA/stroke, diabetes, high cholesterol, hypertension Past Surgical History: colectomy, colonoscopy, oophorectomy Family History Patient reports no known family medical history. 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) Allergies Coded Allergies: BEE STING (Verified Allergy, Unknown, SWELLING - LOCALIZED AT STING AREA, 12/25/16) NO KNOWN DRUG ALLERGIES (Verified Allergy, Unknown, , 12/25/16) Medications Home Medications: Home Meds and Scripts Medications Dose Route/Sig Max Daily Dose Days Date Category Claritin (Loratadine) 10 Mg Tab 10 Mg PO QAM PRN 11/10/16 Reported Lipitor (Atorvastatin Calcium) 40 Mg Tab 40 Mg PO QAM 11/10/16 Reported Cozaar (Losartan Potassium) 50 Mg Tab 50 Mg PO QAM 11/10/16 Reported Norvasc (Amlodipine Besylate) 10 Mg Tab 10 Mg PO QAM 11/10/16 Reported Glucophage (Metformin Hcl) 500 Mg Tab 2 Tab PO QAM 11/10/16 Reported Inpatient Medications: Current Inpatient Medications Medications (Trade) Dose Ordered Sig/Naila Route Start Time Stop Time Status Last Admin Dose Admin Ondansetron HCl (Zofran Inj) 4 mg Q6H PRN IV 12/25/16 10:45 01/24/17 10:44 Future hold 12/28/16 16:49 4 MG Glucose (Glucose 40% Gel) 15-30 GRAMS 15 GRAMS... UD PRN PO 12/25/16 10:45 01/24/17 10:44 Glucose (Glucose Chew Tab) 4-8 Tablets 4 Tabl... UD PRN PO 12/25/16 10:45 01/24/17 10:44 Dextrose (Dextrose 50% 50ML Syringe) 25-50ML OF 50% DW IV FOR... UD PRN IV 12/25/16 10:45 01/24/17 10:44 Glucagon (Glucagon Inj) 1 mg UD PRN SQ 12/25/16 10:45 01/24/17 10:44 Clopidogrel Bisulfate (plAVix TAB) 75 mg QAM PO 12/27/16 09:00 01/26/17 08:59 Future hold 12/31/16 08:44 75 MG Miscellaneous Information (Pharmacist Discharge Med Rec Consult) 1 ea UD PRN N/A 12/27/16 19:30 01/26/17 19:29 Heparin Sodium (Porcine) (Heparin Sq 5000 Unit/0.5ml) 5,000 unit Q8 SQ 12/28/16 06:00 01/27/17 05:59 Future Hold 12/31/16 05:35 5,000 UNIT Metoprolol Tartrate (Lopressor Tab) 12.5 mg BID PO 12/28/16 09:00 01/27/17 08:59 12/30/16 21:20 12.5 MG Acetaminophen (Tylenol Tab) 1,000 mg Q6H PRN PO 12/28/16 08:30 01/27/17 08:29 Pantoprazole Sodium (Protonix Tab) 40 mg BID PO 12/28/16 09:30 01/27/17 09:29 12/31/16 08:43 40 MG Insulin Aspart (novoLOG ASPART) SLIDING SCALE If C... ACHS SC 12/28/16 11:00 01/27/17 10:59 12/30/16 21:23 1 UNITS Oxycodone/ Acetaminophen (Percocet 5-325mg Tab) 1 tab Q4H PRN PO 12/29/16 09:00 01/12/17 08:59 Aspirin (Ecotrin Tab) 81 mg QAM PO 12/30/16 09:00 01/29/17 08:59 Future Hold 12/30/16 08:55 81 MG Simethicone (Mylicon Chew Tab) 80 mg Q6H PRN PO 12/29/16 13:00 01/28/17 12:59 12/30/16 10:54 80 MG Amlodipine Besylate (Norvasc Tab) 10 mg QAM PO 12/30/16 10:00 01/29/17 09:59 12/31/16 08:42 10 MG Atorvastatin Calcium (Lipitor Tab) 80 mg QAM PO 12/31/16 09:00 01/30/17 08:59 12/31/16 08:43 80 MG Losartan Potassium (coZAAR TAB) 50 mg QAM PO 12/31/16 09:00 01/30/17 08:59 12/31/16 08:41 50 MG Review of Systems Review of Systems Constitutional: No fever, No chills Neurological: No dizzy, No passing out Endocrine: No too hot, No too cold Gastrointestinal: + abdominal pain, + nausea, + diarrhea, No vomiting, No constipation Cardiovascular: No chest pain, No palpitations, No swelling ankles/feet Respiratory: No shortness of breath, No chronic cough Musculoskeletal: No joint pain, No back pain Female : + blood in urine, No frequent urination, No painful urination Physical Exam Vital Signs: Vital Signs Past 12 Hours Date Time Temp Pulse Resp B/P (MAP) Pulse Ox O2 Delivery O2 Flow Rate FiO2 12/31/16 15:36 36.8 55 18 153/71 (98) 99 Room Air 12/31/16 14:25 12/31/16 12:00 Room Air 12/31/16 11:41 37.0 57 18 137/73 (94) 96 Room Air 12/31/16 08:00 Room Air 12/31/16 07:33 37.1 55 19 180/68 (105) 94 Room Air Physical Exam: General Appearance: WD/WN, no apparent distress, + obese Eyes: bilateral eyes normal inspection ENT: hearing grossly normal Neck: supple, no adenopathy, no JVD, trachea midline Respiratory/Chest: normal breath sounds, no accessory muscle use Genitourinary - Female: External Genitalia: pertinent finding (brock in place draiing light yellow urine. ) Assessment & Plan Assessment & Plan gross hematuria I suspect this is catheter trauma. I am ordering the brock to be removed. I think it is fine to restart her anticoagulation. I will see her in about a month and see if the hematuria returns. If hematuria returns with no brock then will need cysto as outpatient once out of rehab. Left renal mass- will try to look for older imaging to see if lesion is long standing and growing or not. If no prior imaging available will get MRI as outpatient once out of rehab.
[2017-01-01 00:14] VITALS: BP 148/69; PULSE 60; TEMP 36.9; O2SAT 96
[2017-01-01 04:16] VITALS: BP 156/74; PULSE 61; TEMP 36.7; O2SAT 97
[2017-01-01] MEDS: HEPARIN SOD 5000 UNIT/0.5 ML CARP SQ SCH ×2 (06:06→13:44)
[2017-01-01] MEDS: INSULIN ASPART 100 UNITS/ML 3 ML PEN SC SCH ×2 (07:00→11:00)
[2017-01-01 07:42] VITALS: BP 160/66; PULSE 60; TEMP 36; O2SAT 93
--- NOTE | 2017-01-01 08:03 | Surgery Progress Note ---
Surgery Progress Note Date of Service Jan 01, 2017. Subjective + feeling well, + bowel movement much less diarrhea- C diff negative Objective Vital Signs: Date Time Temp Pulse Resp B/P (MAP) Pulse Ox O2 Delivery O2 Flow Rate FiO2 01/01/17 07:42 36.0 60 16 160/66 (97) 93 Room Air 01/01/17 04:16 36.7 61 16 156/74 (101) 97 01/01/17 04:00 Room Air 01/01/17 00:14 36.9 60 16 148/69 (95) 96 01/01/17 00:01 Room Air 12/31/16 20:00 Room Air 12/31/16 19:52 36.8 56 16 147/73 (97) 91 Room Air 12/31/16 19:51 36.8 56 16 147/73 (97) 91 Room Air 12/31/16 16:00 Room Air 12/31/16 15:36 36.8 55 18 153/71 (98) 99 Room Air 12/31/16 14:25 12/31/16 12:00 Room Air 12/31/16 11:41 37.0 57 18 137/73 (94) 96 Room Air General Appearance: no apparent distress Respiratory/Chest: no respiratory distress Abdomen: non distended Incision(s): intact Laboratory Results: Results Past 24 Hours Test 12/31/16 11:35 12/31/16 14:40 12/31/16 16:09 12/31/16 20:07 Range/Units Bedside Glucose 131 129 140 70-90 mg/dl Urine Color RED Urine Appearance SLIGHTLY CLOUDY CLEAR Urine pH 4.5-7.5 Urine Specific [place] 1.006 1.000-1.030 Urine Protein NEG Urine Glucose (UA) NEG Urine Ketones NEG Urine Occult Blood NEG Urine Nitrite NEG Urine Bilirubin NEG Urine Urobilinogen NEG Urine Leukocyte Esterase NEG Urine RBC >30 0-4 /hpf Urine WBC 5-10 0-5 /hpf Urine Epithelial Cells 20-30 0-5 /lpf Urine Bacteria NEG NEG Test 01/01/17 06:46 Range/Units Bedside Glucose 133 70-90 mg/dl Microbiology Results 12/31/16 Urine Culture, Received Pending Assessment & Plan 01/01/17- no acute chgs- stable for d/c to rehab from surgical standpoint- followup in office next week for wound check
--- NOTE | 2017-01-01 08:07 | Discharge Instructions ---
Discharge Instructions Date of Service Jan 01, 2017. Admission Reason for Admission: Colon Carcinoma Discharge Discharge Diagnosis / Problem: colon tumor Discharge Goals Goal(s): Decrease discomfort, Improve function, Improve disease control Activity Recommendations Activity Limitations: as noted below Lifting Limitations: no more than 25 pounds Exercise/Sports Limitations: until after follow-up appointment May Resume Sexual Activity: after follow-up appointment Shower/Bathe: tomorrow SPECIAL CARE INSTRUCTIONS: * Cover incisions and change daily for comfort/drainage * Expect some swelling and bruising. Call your doctor if: * Temperature above 101 degrees * Pain not relieved by pain medicine ordered * There is increased drainage or redness from any incision * You have any unanswered questions or concerns [phone]. FOLLOW UP VISIT: If not already scheduled, please call the office for a follow-up visit. for next week- wound check- please call with any questions OFFICE PHONE NUMBER: Dr. Martines Office . Current Hospital Diet Patient's current hospital diet: Diabetes Type 2 Diet Discharge Diet Recommended Diet: Regular Diet Procedures Procedures Performed: Laprascopic lysis of dense abdominal adhesions,(karen 1/3 of op time) open sigmoid colon resection Pending Studies Studies pending at discharge: no Laboratory Results Hemoglobin A1c Test 12/27/16 06:30 Range/Units Estimated Average Glucose 140 mg/dl Hemoglobin A1c 6.5 H 4.5-5.6 % Lipid Panel Test 12/28/16 05:46 Range/Units Triglycerides Level 143 0-150 mg/dl Cholesterol Level 124 0-200 mg/dl HDL Cholesterol 43 mg/dl Cholesterol/HDL Ratio 2.9 LDL Cholesterol, Calculated 52 mg/dl Medical Emergencies . Who to Call and When: Medical Emergencies: If at any time you feel your situation is an emergency, please call 911 immediately. . Non-Emergent Contact Non-Emergency issues call your: Primary Care Provider, Surgeon . "Provider Documentation" section prepared by Maksim Martines. . VTE Core Measure Inpt VTE Proph given/why not?: Unfractionated heparin SQ, SCD's
[2017-01-01] MEDS: CLOPIDOGREL BISULFATE 75 MG TAB PO SCH (08:46)
[2017-01-01] MEDS: LOSARTAN POTASSIUM 50 MG TAB PO SCH (08:46)
[2017-01-01] MEDS: AMLODIPINE BESYLATE 5 MG TAB PO SCH (08:46)
[2017-01-01] MEDS: ATORVASTATIN 40 MG TAB PO SCH (08:46)
[2017-01-01] MEDS: METOPROLOL TARTRATE 25 MG TAB PO SCH (08:46)
[2017-01-01] MEDS: PANTOprazole SOD 40 MG TAB PO SCH (08:46)
--- NOTE | 2017-01-01 10:38 | Cardiology Follow-Up ---
Subjective General Date of Service: Jan 01, 2017. Chief Complaint: gross hematuria, left renal mass Pt evaluation today including: conversation w/ patient, physical exam, chart review, lab review, review of studies, review of inpatient medication list History of Present Illness The patient is a 61 year old female seen in follow-up. Feeling well from a cardiovascular perspective. Left upper extremity weakness unchanged today. Blood pressure elevated this morning prior to and medications. Patient looking forward to transfer to rehabilitation facility. Short milagros of asymptomatic atrial tachycardia this a.m. No recurrent atrial fibrillation on monitor. Allergies Coded Allergies: BEE STING (Verified Allergy, Unknown, SWELLING - LOCALIZED AT STING AREA, 12/25/16) NO KNOWN DRUG ALLERGIES (Verified Allergy, Unknown, , 12/25/16) Social History Smoking Status: Never Smoker Hx Tobacco Use In Past Year?: No Hx Alcohol Use - Type And Amou: Yes (WEEKENDS/FEW DRINKS ) Hx Substance Use - Type And Am: No Review of Systems Respiratory: No cough, No sputum, No wheezing, No shortness of breath, No dyspnea on exertion, No dyspnea at rest, No hemoptysis Cardiac: No chest pain, No orthopnea, No PND, No edema, No claudication, No palpitations Physical Exam Vital Signs Last Vital Signs Documentation Date Time Temp Pulse Resp B/P (MAP) Pulse Ox O2 Delivery O2 Flow Rate FiO2 01/01/17 08:00 Room Air 01/01/17 07:42 36.0 60 16 160/66 (97) 93 12/31/16 14:25 12/27/16 16:00 94 Physical Exam Head: normocephalic Neck: supple, trachea midline Lungs: Auscultation: breath sounds normal, no wheezing, no rales/crackles, no rhonchi Cardiovascular: Heart Auscultation: RRR, normal S1, normal S2, no murmurs Abdomen: Inspection & Palpation: soft, non-distended, no tenderness, guarding & rebound Extremities: no cyanosis, no edema, no clubbing, no ulcers Neurologic: Gait & Station: pertinent finding (left sided weakness) Assessment and Plan Assessment and Plan FINAL IMPRESSION: 1. Acute right sided cerebrovascular accident secondary to ARLYN occlusion. -left sided weakness improving. 2. Brief milagros of paroxysmal atrial fibrillation (22beats) 12/27/16 - no recurrence - possibly related to elevated catecholamines in secondary to acute CVA and post-operative state. 3. Paroxysmal atrial tachycardia -Demetris linares recorded this a.m. without associated symptoms 4. HTN - improved - amlodipine and losartan restarted - Most recent blood pressure assessment within acceptable range. 5. Adenocarcinoma of the colon status post colon resection. 6. Diabetes type 2. PLAN AND RECOMMENDATIONS: Continue dual antiplatelet therapy, beta aline, high-dose statin, amlodipine, and losartan. Recommend 14-30 day cardiac/vascular sonographer as outpatient. I will arrange for outpatient cardiology follow-up in 2 weeks. Will sign off. Please call with questions. Laboratory Results Last 24 Hours Test 12/31/16 11:35 12/31/16 14:40 12/31/16 16:09 12/31/16 20:07 Bedside Glucose 131 mg/dl 129 mg/dl 140 mg/dl Urine Color RED Urine Appearance SLIGHTLY CLOUDY Urine pH Urine Specific [place] 1.006 Urine Protein Urine Glucose (UA) Urine Ketones Urine Occult Blood Urine Nitrite Urine Bilirubin Urine Urobilinogen Urine Leukocyte Esterase Urine RBC >30 /hpf Urine WBC 5-10 /hpf Urine Epithelial Cells 20-30 /lpf Urine Bacteria NEG Test 01/01/17 06:46 Bedside Glucose 133 mg/dl
[2017-01-01] MEDS ORDERED: ATOR-26 PO (11:19)
[2017-01-01] MEDS ORDERED: PLV75 PO (11:19)
[2017-01-01] MEDS ORDERED: OXYC-57 PO (11:19)
[2017-01-01] MEDS ORDERED: LPR25 PO (11:19)
[2017-01-01] MEDS ORDERED: ASPEC81 PO (11:19)
[2017-01-01] MEDS ORDERED: CIPR-255 PO (11:27)
--- NOTE | 2017-01-01 11:29 | Consultant Recommendations ---
Safety Pin Assembling Machine Operator Recommendations Date of Service Jan 01, 2017. Safety Pin Assembling Machine Operator Recommendations Please take all medications as instructed. You will need a follow-up with your primary care physician (PCP) within one week of discharge from [facility] for follow-up from this hospitalization. You were found to have a UTI, and are being given an antibiotic (Cipro) to take for the next 7 days. You will need a follow-up with Urology (Dr. Nohelia Parikh) as an outpatient in the next 4 weeks. She will follow-up on this, the blood in your urine (hematuria) and the renal mass that was incidentally found. She may have discussed getting a dedicated MRI of your kidneys to work this up in the next couple of weeks, and her office can guide you more on this. You will also need to wear a Holter monitor for 14 days as outpatient. This will be ordered through the [facility] Cardiology office (Dr. Emmanuel Diggs) who would like you to follow-up with you within two weeks of discharge. You will also need to follow-up with [facility] Neurology (Dr. Shiva Cruz) withint 3-4 weeks of discharge for monitoring of your progress after stroke. Please continue on the Plavix, Aspirin and Lipitor 80mg daily for at least 3 months until otherwise changed by your Neurologist. This is for secondary stroke prevention. Risk Factors for Stroke: You can reduce your chances of stroke by working with your medical provider to adopt a healthy lifestyle. Some specific ways to lower your chance of stroke are: * If you are a smoker, now is the time to stop smoking cigarettes * If you are diabetic, improve the control of your blood sugars * Avoid excessive amounts of alcohol * Control high blood pressure * Lose weight if you are overweight * Be sure to lead an active lifestyle * Eat a healthy diet low in salt, cholesterol and fat You should know about other risk factors for stroke that you are unable to control. These include: * Age 55 years or older * Male gender * Certain racial groups: , or / * Family History of Stroke, Mini stroke or Heart Attack * Sickle Cell Disease Follow Up: It is important for you to keep your follow up appointments with your medical provider. It was a pleasure taking care of you! Call if you have any questions or problems. You can reach a [facility] hospitalist on duty at [facility] 24 hours a day by calling [phone]. Take care of yourself. Vaishali Machuca DO [facility]
[2017-01-01 12:13] VITALS: BP 128/53; PULSE 58; TEMP 36.8; O2SAT 99
--- NOTE | 2017-01-01 14:12 | DISCHARGE SUMMARY ---
DATE OF DISCHARGE: 01/01/2017. PRIMARY DISCHARGE DIAGNOSES: 1. Adenocarcinoma arising in a sigmoid colon polyp. 2. Cerebrovascular accident involving the right middle cerebral artery. 3. Paroxysmal atrial fibrillation. 4. Newly diagnosed renal lesion. 5. Acute blood loss anemia. 6. Hematuria. SECONDARY DISCHARGE DIAGNOSES: 1. Hypertension. 2. Obesity. 3. Dyslipidemia. 4. Type 2 diabetes. PROCEDURES PERFORMED: Laparoscopy with lysis of dense abdominal adhesions and sigmoid colon resection with primary side-to-end anastomosis. CONSULTATIONS: 1. [facility] [employer] Field Adjuster to assist in critical care. 2. [facility] hospitalist to assist in medical management. 3. [facility] urology for hematuria and renal lesion. 4. Cardiology for paroxysmal atrial fibrillation. 5. Neurology for CVA. HOSPITAL COURSE: The patient is a 61-year-old female who on screening colonoscopy, was found to have adenocarcinoma arising in a sigmoid colon polyp. She was now admitted through same day and taken to the operating room for laparoscopic assisted sigmoid resection. The procedure was well tolerated. She was transferred to the surgical floor. That afternoon, several hours after surgery, she began complaining of left-sided numbness and anesthesia was called to evaluate her epidural. Once they had arrived, she had left-sided weakness and facial droop. A code stroke was called. She underwent stat CT of the head which did not show any acute process. She was transferred to ICU. By the time she arrived in ICU her symptoms had resolved. She was monitored overnight and was given a few doses of labetalol to manage her blood pressure. On postoperative day 1, she remained stable. Her NG tube was removed. She was started back on her home medications and transferred to progressive care. That evening she again developed a left-sided weakness with again negative CT, but an MRI that now demonstrated an acute right MCA infarct. She was transferred back to ICU. [place] stroke service was consulted. She was not a candidate for TPA. Neurology was also consulted, recommended dual antiplatelet therapy. Cardiology was also consulted as she had some paroxysmal atrial fibrillation. By the next morning, she made some improvement in strength of the left lower extremity, although continued to have weakness in the left arm. She was able to tolerate clear liquids. Her abdomen remained benign. She was making progress daily. She was moving her bowels on postoperative day 4. She was able to tolerate a diabetic diet. She was transferred to telemetry, had been started on low dose metoprolol and gradually added back her Cozaar and Norvasc. She was restarted on subQ heparin which was held briefly given some incisional bleeding. Plavix was continued and aspirin was held while she was on the subQ heparin. On postoperative day 5, she had multiple loose bowel movements. C. diff was negative. Her diarrhea was subsiding by day 6. She was making slow but steady progress and regaining strength of her left extremities. She was able to walk with physical therapy. She had a mild postoperative anemia and her H&H equilibrated at 11 and 32. She did not require transfusion. On postoperative day 7, she was stable for transfer to rehabilitation. Nico drain was removed. Her incision was healing well. She does have some ecchymosis along the incision, but no further drainage. She has some residual left foot drop. She has good strength in her left hand and is beginning to raise her left shoulder against gravity. DISCHARGE INSTRUCTIONS: Will be transferred to [facility] for continued therapies. She may shower. She can progress activity as tolerated with a lifting limit of about 10 pounds. We will see her back in the office next week for checkup and staple removal. She should have followup with cardiology in about 2 weeks for 14 to 30-day cardiac sonographer as an outpatient. She will follow up with urology within a month for hematuria and also the new renal lesion. Followup with neurology within 4-6 weeks. DISCHARGE MEDICATIONS: Please see accompanying med reconciliation sheet for list of current medications. PATHOLOGY: Sigmoid colon specimen showed no residual adenocarcinoma or adenoma, 11 pericolic lymph nodes were negative for metastatic carcinoma (0/11). MTDD
== END 2017-01-01 14:31 | DRG 329 ==
LOC: C.ACU 05:27 → C.MSW 06:30 → ENRESERV 11:16 → C.MSICU 13:19 → ENRESERV 12-26 13:15 → CANRESERV 12-26 13:15 → EDBEDREQSVC 12-26 14:06 → EDBEDREQTM 12-26 14:08 → ENRESERV 12-26 14:18 → EDBEDREQSVC 12-26 14:18 → C.2T 12-26 14:56 → C.MSICU 12-27 00:10 → ENRESERV 12-27 00:35 → C.2T 12-29 18:34
PROVIDERS: ADMIT Surgery; ATTEND Surgery
PROC: 0DBN0ZZ Excision of Sigmoid Colon, Open Approach (ICD-10-PCS; principal; 2016-12-23)
PROC: 0DNW0ZZ Release Peritoneum, Open Approach (ICD-10-PCS; principal; 2016-12-23)
DX: C18.7 Malignant neoplasm of sigmoid colon (principal); I63.511 Cerebral infarction due to unspecified occlusion or stenosis of right middle cerebral artery; Z68.41 Body mass index [BMI] 40.0-44.9, adult; G81.94 Hemiplegia, unspecified affecting left nondominant side; D62 Acute posthemorrhagic anemia; E11.9 Type 2 diabetes mellitus without complications; I10 Essential (primary) hypertension; E78.00 Pure hypercholesterolemia, unspecified; Z86.73 Personal history of transient ischemic attack (TIA), and cerebral infarction without residual deficits; Z79.899 Other long term (current) drug therapy; E66.01 Morbid (severe) obesity due to excess calories; E78.5 Hyperlipidemia, unspecified; I48.0 Paroxysmal atrial fibrillation; R29.810 Facial weakness; E87.6 Hypokalemia; K66.0 Peritoneal adhesions (postprocedural) (postinfection); R19.7 Diarrhea, unspecified; N28.89 Other specified disorders of kidney and ureter; R31.0 Gross hematuria; Z79.82 Long term (current) use of aspirin; Z79.02 Long term (current) use of antithrombotics/antiplatelets; Z84.89 Family history of other specified conditions; Z86.010 Personal history of colon polyps; Z88.8 Allergy status to other drugs, medicaments and biological substances; Z91.030 Bee allergy status

== ENCOUNTER → 2018-02-16 | Day surgery (SDC) | payer OTHER ==
[2018-02-10 12:31] VITALS: BMI 46.0
[~2018-02-16] VITALS: Ht 162.6 cm; Wt 120.9 kg
[~2018-02-16] MED LIST changes: -AMLO-114 PO; +AMLO10TA3 PO; -ATOR-24 PO; +ATOR-26 PO; +LIDOCAINE HCL 2% 2 ML VIAL (20MG/ML) ONE; +MIDAZOLAM HCL 1 MG/ML 2ML VIAL ONE; +PROPOFOL IV EMULSION 10 MG/ML 20 ML VIAL ONE; +RIVA1TAB4 PO; +SODIUM CHLORIDE 0.9% 500ML 500 ML IV ONE; +TRAM-10 PO
[2018-02-16 08:20] VITALS: Ht 162.6 cm; Wt 120.9 kg
--- NOTE | 2018-02-16 08:47 | Endo History and Physical ---
History & Physical Date of Service: Feb 16, 2018. Chief Complaint: HISTORY OF COLON CANCER Referring Physician: DR MOFFETT History of Present Illness pt with history of colon polyps. Past Surgical History Hx Cardiac Surgery: No Hx Internal Defibrillator: No Hx Pacemaker: No Hx Abdominal Surgery: Yes (OVARIAN TUMOR AND FALLOPIAN TUBE REMOVED (BENIGN)) Hx of Implantable Prosthesis: No Hx Post-Op Nausea and Vomiting: No Hx Cancer Surgery: Yes (SIGMOID RESECTION(CANCEROUS POLYP)12/2016) Hx Thoracic Surgery: No Hx Orthopedic: No Hx Urinary Tract Surgery: No Family History None Social History Smoking Status: Never Smoker Hx Substance Use: No Hx Alcohol Use: Yes (OCC SOCIAL) Allergies Coded Allergies: BEE STING (Verified Allergy, Unknown, SWELLING - LOCALIZED AT STING AREA, 02/16/18) Lisinopril (Verified Allergy, Unknown, COUGH, 02/16/18) NO KNOWN DRUG ALLERGIES (Verified Allergy, Unknown, , 02/10/18) Current Medications Reported Home Medications Medications Dose Route/Sig Max Daily Dose Days Date Category Dose Instructions Ultram (Tramadol HCl) 50 Mg Tab 50 Mg PO Q8H PRN 02/10/18 Reported Xarelto (Rivaroxaban) 20 Mg Tab 20 Mg PO QPM 02/10/18 Reported PT WILL FOLLOW INSTRUCTIONS FROM RX'ING Lipitor (Atorvastatin Calcium) 80 Mg Tab 80 Mg PO QAM 02/10/18 Reported Claritin (Loratadine) 10 Mg Tab 10 Mg PO QAM PRN 11/10/16 Reported Cozaar (Losartan Potassium) 50 Mg Tab 50 Mg PO QAM 11/10/16 Reported Norvasc (Amlodipine Besylate) 10 Mg Tab 10 Mg PO QAM 11/10/16 Reported Glucophage (Metformin Hcl) 500 Mg Tab 500 Mg PO BID 11/10/16 Reported Vital Signs Weight (Kilograms): 120.91 Height (Feet): 5 Height (Inches): 4 Date Time Temp Pulse Resp B/P (MAP) Pulse Ox O2 Delivery O2 Flow Rate FiO2 02/16/18 08:30 36.2 57 20 155/71 (99) 94 Room Air Physical Exam General Appearance: no apparent distress Respiratory/Chest: Auscultation: breath sounds normal Cardiovascular: Heart Auscultation: RRR Abdomen: Inspection & Palpation: soft Liver: non-tender Assessment and Plan stable for colonoscopy
--- NOTE | 2018-02-16 09:23 | Discharge Instructions ---
Endoscopy Patient Instructions Date / Procedure(s) Performed Feb 16, 2018. Colonoscopy Allergy Information Coded Allergies: BEE STING (Verified Allergy, Unknown, SWELLING - LOCALIZED AT STING AREA, 02/16/18) Lisinopril (Verified Allergy, Unknown, COUGH, 02/16/18) NO KNOWN DRUG ALLERGIES (Verified Allergy, Unknown, , 02/10/18) Discharge Date / Findings Feb 16, 2018. colon polyps removed Medication Instructions Stopped Medication(s): XARELTO Provider Instructions Activity Restrictions - No exercising or heavy lifting for 24 hours. - Do not drink alcohol the day of the procedure. - Do not drive a car or operate machinery until the day after the procedure. - Do not make any important decisions or sign important papers in 24 hours after the procedure. Following Day: - Return to full activity which may include returning to work/school. Diet Start your diet with liquids and light foods (jello, soup, juice, toast). Then eat your usual diet if not nauseated. Treatment For Common After Affects For mild abdominal pain, bloating, or excessive gas: - Rest - Eat lightly - Lie on right side Follow-Up Information Follow-up with DR MOFFETT as scheduled Anesthesia Information What You Should Know You have had a procedure that required some medicine to reduce anxiety and discomfort. This treatment is called moderate sedation. After receiving the treatment, you may be sleepy, but you will be able to breathe on your own. The effects of the treatment may last for several hours. Follow these instructions along with Activity/Diet recommendations noted above: * Do NOT do anything where dizziness or clumsiness would be dangerous. * Rest quietly at home today, then you can be up and about tomorrow. * Have a responsible person stay with you the rest of today. * You may have had an I.V. today. If so, you may take the dressing off later today. Recommendations Call your doctor if: * Trouble breathing * Continuous vomiting for more than 24 hours * Temperature above 101 degrees * Severe abdominal pain or bloating * Pain not relieved by pain medicine ordered * There is increased drainage or redness from any incision * A large amount of rectal bleeding greater than 2-3 tablespoons. (If you had a polyp/s removed or have hemorrhoids, a small amount of blood - from the rectum is to be expected.) * You have any unanswered questions or concerns. IN THE EVENT OF A SERIOUS EMERGENCY, GO TO THE NEAREST EMERGENCY ROOM Your discharge instructions were prepared by provider Declan West. Patient Instructions Signature Page Nenita Fleming Patient (or Guardian) Signature/Date: I have read and understand the instructions given to me by my caregivers. Caregiver/RN/Doctor Signature/Date: The above-named patient and/or guardian has received patient instructions on this date. + Original Patient Signature Page (only) stays with chart. Please make copy for patient.
--- NOTE | 2018-02-16 09:32 | GI REPORT ---
Patient Name: Nenita Fleming Procedure Date: 02/16/2018 8:38 AM Date of : 1955 Admit Type: Outpatient Age: 62 Gender: Female Attending MD: Declan West MD Procedure: Colonoscopy Providers: Declan West MD Referring MD: Shiva Rich Indications: High risk colon cancer surveillance: Personal history of colon cancer Medicines: See the Anesthesia note for documentation of the administered medications Complications: No immediate complications. Estimated Blood Loss: Estimated blood loss was minimal. Procedure: Pre-Anesthesia Assessment: - Prior to the procedure, a History and Physical was performed, and patient medications, allergies and sensitivities were reviewed. The patient's tolerance of previous anesthesia was reviewed. - The risks and benefits of the procedure and the sedation options and risks were discussed with the patient. All questions were answered and informed consent was obtained. - Patient identification and proposed procedure were verified prior to the procedure by the physician and the nurse. The procedure was verified in the pre-procedure area. - Pre-procedure physical examination revealed no contraindications to sedation. - After reviewing the risks and benefits, the patient was deemed in satisfactory condition to undergo the procedure. After I obtained informed consent, the scope was passed under direct vision. Throughout the procedure, the patient's blood pressure, pulse, and oxygen saturations were monitored continuously. The scope was introduced through the anus and advanced to the terminal ileum, with identification of the appendiceal orifice and IC valve. The colonoscopy was performed without difficulty. The patient tolerated the procedure well. The quality of the bowel preparation was good. Findings: The perianal and digital rectal examinations were normal. The terminal ileum appeared normal. A 6 mm polyp was found in the cecum. The polyp was semi-sessile. The polyp was removed with a hot snare. Resection and retrieval were complete. Verification of patient identification for the specimen was done by the physician and nurse using the patient's name and medical record number. Estimated blood loss was minimal. Two sessile polyps were found in the rectum. The polyps were small in size. These polyps were removed with a cold snare. Resection and retrieval were complete. Verification of patient identification for the specimen was done by the physician and nurse using the patient's name and medical record number. Estimated blood loss was minimal. There was evidence of a prior end-to-side colo-colonic anastomosis in the sigmoid colon. This was characterized by healthy appearing mucosa. No additional abnormalities were found on retroflexion. Impression: - The examined portion of the ileum was normal. - One 6 mm polyp in the cecum, removed with a hot snare. Resected and retrieved. - Two small polyps in the rectum, removed with a cold snare. Resected and retrieved. - End-to-side colo-colonic anastomosis, characterized by healthy appearing mucosa. Recommendation: - Await pathology results. - Discharge patient to home. Declan West M.D. Declan West MD 02/16/2018 9:31:33 AM This report has been signed electronically. Note Initiated On: 02/16/2018 8:38 AM Number of Addenda: 0 I attest to the content of the Intraoperative Record and orders documented therein, exceptions below {[id number]}
[2018-02-16 09:52] VITALS: BP 161/78; PULSE 55; O2SAT 96
--- NOTE | 2018-02-16 10:01 | Anesthesiology Progress Note ---
Anesthesia Post Op Note Date & Time Feb 16, 2018 at 10:01 Vital Signs Vital Signs Past 12 Hours Date Time Temp Pulse Resp B/P (MAP) Pulse Ox O2 Delivery O2 Flow Rate FiO2 02/16/18 09:52 55 20 161/78 (105) 96 Room Air 02/16/18 09:42 55 20 146/84 (104) 96 Room Air 02/16/18 09:23 60 20 138/75 (96) 95 Room Air 02/16/18 08:30 36.2 57 20 155/71 (99) 94 Room Air Notes Mental Status: alert / awake / arousable, participated in evaluation Pt Amnestic to Procedure: Yes Nausea / Vomiting: adequately controlled Pain: adequately controlled Airway Patency, RR, SpO2: stable & adequate BP & HR: stable & adequate Hydration State: stable & adequate Anesthetic Complications: no major complications apparent
== END | disposition home or self-care (01) ==
LOC: C.GI 07:56
PROVIDERS: ATTEND Internal Medicine Gastroenterology
DX: Z12.11 Encounter for screening for malignant neoplasm of colon (principal); D12.0 Benign neoplasm of cecum; D12.8 Benign neoplasm of rectum; Z85.038 Personal history of other malignant neoplasm of large intestine; Z86.73 Personal history of transient ischemic attack (TIA), and cerebral infarction without residual deficits; Z79.01 Long term (current) use of anticoagulants

== ENCOUNTER 2022-04-25 15:45 | Inpatient (IN) ==
--- NOTE | 2022-04-25 16:47 | ED Triage Note ---
Date of Service April 25, 2022 History of Present Illness This patient was briefly evaluated while in triage. An abbreviated physical exam was performed. This patient is a 66-year-old Female with past medical history of hypertension, intracranial carotid stenosis, type 2 DM, SALVADOR who presents to the ED for evaluation of shortness of breath for several weeks, symptoms got worse today and was directed to come get checked by her bitumastic applier. Diagnosed a week ago with Afib, was already on beta aline and warfarin, states h/o cartoid blood clot. States she also feels like she is "filling up with fluid." Notes a fall 5 days ago from being dizzy, not sure if hit head. She denies chest pain. Physical Exam CONSTITUTIONAL: No acute distress, but appears to be in some discomfort. RESPIRATORY: Diminished in bases. Tachypneic and moderately labored breathing. CARDIOVASCULAR: Tachycardic, irregular rate and rhythm with no murmurs, rubs or gallops. Normal peripheral perfusion. BLE peripheral edema. INTEGUMENTARY: Old bruising noted to left neck and chest. NEUROLOGIC: Alert and oriented X 4 with normal affect. Initial orders for labs and / or imaging were placed and patient was taken to an exam room due to shortness of breath and suspected rapid A fib. Blood pressure is stable and she denies chest pain. Please see further documentation for the full ED course. MDM / Impression Impression Impression: Atrial fibrillation with RVR, CHF (congestive heart failure), Pleural effusion, Falls
[2022-04-25] MEDS ORDERED: METOPROLOL TARTRATE 1 MG/ML VIAL IV STA (17:16)
[2022-04-25 17:33] LABS: iSTAT Hemoglobin 12.6 g/dl (12.0-16.0); iSTAT Ionized Calcium 1.21 mmol/l (1.12-1.32)
[2022-04-25 17:37] LABS: Basophils # (auto) 0.07 K/uL (0-0.2); Basophils % (auto) 0.7 %; Eosinophils # (auto) 1.14 K/uL (0-0.50); Eosinophils % (auto) 10.7 %; Hematocrit (blood only) 34.1 % (34.1-44.9); Hemoglobin 11.1 g/dl (12.0-16.0); Immature Granulocytes # (auto) 0.04 K/uL (0.00-0.02); Immature Granulocytes % (auto) 0.4 %; Lymphocytes # (auto) 1.87 K/uL (1.2-3.4); Lymphocytes % (auto) 17.6 %; Mean Corpuscular Hemoglobin 26.6 pg (25.0-34.0); Mean Corpuscular Hgb Conc 32.6 g/dL (32.0-36.0); Mean Corpuscular Volume 81.8 fL (80.0-100.0); Mean Platelet Volume 9.9 fL (9.4-12.3); Monocytes # (auto) 0.84 K/uL (0.24-0.82); Monocytes % (auto) 7.9 %; Neutrophils # (auto) 6.69 K/uL (1.4-6.5); Neutrophils % (auto) 62.7 %; Platelet Count 425 K/uL (130-400); RDW Coefficient of Variation 14.9 % (11.5-14.5); RDW Standard Deviation 43.9 fL (36.4-46.3); Red Blood Count 4.17 M/uL (3.93-5.22); White Blood Count 10.65 K/ul (4.8-10.8)
[2022-04-25] MEDS ORDERED: IOVERSOL 350 MG 100mL Prefilled Syringe IV ONE (17:46)
[2022-04-25 17:57] LABS: Albumin Globulin Ratio 1.7 (0.9-2); BUN Creatinine Ratio 22.8 (10-20); Bilirubin,Total 0.8 mg/dl (0.2-1.0); Calcium 9.4 mg/dl (8.5-10.1); Creatinine Clr Calc Pharmacy 71.3 ml/min; Est GFR (African American) 66.7 ml/min; Est GFR (Non-African American) 57.6 ml/min; Globulin 2.4 gm/dl (2.5-4.0); Magnesium 1.4 mg/dl (1.7-2.4); Total Protein 6.4 gm/dl (6.0-8.3)
[2022-04-25 17:58] LABS: INR 4.3 (0.9-1.1); Partial Thromboplastin Ratio 1.4; Partial Thromboplastin Time 38.9 Seconds (21.0-31.0); Prothrombin Time 42.2 Seconds (9.0-12.0)
--- NOTE | 2022-04-25 18:03 | CT Scan Report ---
CT head/brain wo con CLINICAL HISTORY: 66 years-old Female with Fall, blood thinners. Acute head trauma status post fall TECHNIQUE: Multiple axial CT images of the head were obtained without contrast. A dose lowering tech nique was utilized adhering to the principles of ALARA. COMPARISON: CT cervical spine of same day, head CT 12/31/2016 FINDINGS: No acute intracranial hemorrhage, midline shift, intracranial mass, hydrocephalus, territorial ischem ia or abnormal extra-axial collection. Involutional changes with chronic vascular ischemic disease. 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 Cerebral vascular calcifications. The calvarium is intact. The paranasal sinuses, mastoid air cells, and middle ear cavities are clear . IMPRESSION: No acute intracranial abnormality or calvarial fracture. ACT 112: Negative or not required by law. The above report was generated using voice recognition software. It may contain grammatical, syntax o r spelling errors. Electronically signed by: Samir Vivas M.D. 04/25/2022 6:01 PM
--- NOTE | 2022-04-25 18:07 | CT Scan Report ---
CT cervical spine wo con CT DOSE: 3353.10 mGy.cm CLINICAL HISTORY: 66 years-old Female with fall. Acute head and neck injury status post fall COMPARISON: CTA neck 12/25/2016 TECHNIQUE: Multiple axial CT images of the cervical spine were obtained without contrast. A dose low ering technique was utilized adhering to the principles of ALARA. FINDINGS: Demineralized appearance of the bones with multilevel degenerative changes. No acute fractu re or subluxation identified. Heterogeneity of the thyroid. No prevertebral edema identified. Layering right pleural effusion. The visualized lung apices appear clear. IMPRESSION: 1. No acute cervical spine fracture or subluxation identified. 2. Right pleural effusion. ACT 112: Negative or not required by law. The above report was generated using voice recognition software. It may contain grammatical, syntax o r spelling errors. Electronically signed by: Samir Vivas M.D. 04/25/2022 6:04 PM
--- NOTE | 2022-04-25 18:12 | CT Scan Report ---
CHEST CT WITH CONTRAST HISTORY: Acute left-sided chest pain status post fall fall on coumadin TECHNIQUE: Multiaxial CT images of the chest were performed following the IV administration of 95 cc of Optiray. A dose lowering technique was utilized adhering to the principles of ALARA. COMPARISON: CT cervical spine of same day FINDINGS: Heterogeneous thyroid with a 1.4 cm left-sided thyroid nodule. Mildly enlarged paratracheal lymph nodes measure up to 11 mm, nonspecific. Moderate to marked cardiomegaly without pericardial ef fusion. Extensive coronary artery calcifications. No thoracic aortic aneurysm or dissection. There is patency of the imaged great vessels. Unremarkable pulmonary artery. No pulmonary emboli are identifi ed. Small left with moderate right pleural effusions. Dependent right greater than left bibasilar consoli dation. Intralobular septal thickening with intermixed groundglass opacities. Bronchial wall thickeni ng with bibasilar mucous plugging. Mosaic attenuation of the lungs. 4 mm subpleural solid nodule of t he right upper lobe, image 90 series 10. Liver is enlarged. No acute process of the imaged upper abdomen. Unremarkable soft tissues. Degenerat araseli changes of the shoulders and spine. Subacute appearing nondisplaced fracture of the left seventh rib. There are a few healed chronic right-sided rib fractures. No acute fracture is identified. IMPRESSION: 1. Cardiomegaly with pulmonary edema, small left and moderate right pleural effusions. 2. Healing subacute nondisplaced fracture of the anterior left seventh rib. Healed chronic right-side d rib fractures are also noted without acute fracture or pneumothorax. 3. Additional findings as above. ACT 112: Negative or not required by law. Electronically signed by: Samir Vivas M.D. 04/25/2022 6:10 PM
[2022-04-25] MEDS ORDERED: METOPROLOL TARTRATE 1 MG/ML VIAL IV PRN ×2 (18:19→19:40)
[2022-04-25] MEDS ORDERED: FUROSEMIDE 40 MG/4 ML VIAL IV STA (18:40)
--- NOTE | 2022-04-25 18:57 | History & Physical Report ---
Date of Service April 25, 2022 Assessment & Plan (1) Atrial fibrillation with RVR: Plan: History of paroxysmal atrial fibrillation anticoagulated on warfarin Patient is 66 y/o F with PMH PAF anticoagulated on warfarin, CVA, HTN, dyslipidemia, DM II, SALVADOR, colon cancer s/p bowel resection, carotid artery occlusion, obesity, urinary incontinence presented to ER with c/o exertional SOB x 1 month. Also c/o dizziness, fatigue In ER patient found to be in a-fib RVR with rate 120's. Was given dose of Lopressor 5mg IV x 2 with improvement HR to 101. Patient reports is feeling better. Magnesium: 1.4, INR: 4.3 TSH pending Continue home metoprolol succinate Metoprolol tartrate IV as needed tachycardia Supratherapeutic INR. Hold warfarin, repeat INR tomorrow with further dosage adjustments Cardiology consult CBC, CMP in am (2) SOB (shortness of breath): Plan: Shortness of breath may be secondary to rapid atrial fibrillation, acute CHF, pleural effusions CT chest: Cardiomegaly with pulmonary edema, small left and moderate right pleural effusions. Healing subacute nondisplaced fracture of the anterior left seventh rib. Healed chronic right-sided rib fractures are also noted without acute fracture or pneumothorax. In ER given 40 mg IV Lasix Monitor I's and O's, daily weight Lasix 40 mg IV twice daily Echo (3) Elevated troponin: Plan: High-sensitivity troponin: 27. Denies chest pain Likely demand ischemia from tachycardia, CHF Trend troponin Echo (4) Hypomagnesemia: Plan: Magnesium: 1.4 Replace and monitor (5) Fall: Plan: History recurrent falls secondary to intermittent dizziness. Most recent fall 4 days ago. ?Dizziness secondary to rapid atrial fibrillation CT head: No acute intracranial abnormality CT C-spine. No acute fracture Fall precautions Orthostatic vitals (6) Hypertension: Plan: Continue amlodipine, losartan, metoprolol succinate Hold indapamide, as currently receiving IV lasix (7) CVA (cerebral vascular accident): Plan: Continue aspirin, atorvastatin (8) Type 2 diabetes mellitus: Plan: A1c: 6.6 on 02/03/2022 Hold metformin NovoLog sliding scale per protocol (9) History of colon cancer: Plan: S/p bowel resection DVT Prophylaxis On warfarin. INR currently supratherapeutic full Code as per discussion with pt Follows with Dr Rich for routine care Pt was seen and care coordinated with Dr Oneill. See addendum History of Present Illness Chief Complaint: SOB Primary Care Provider: Shiva Rich MD Patient is 66 y/o F with PMH PAF anticoagulated on warfarin, CVA, HTN, dyslipidemia, DM II, SALVADOR, colon cancer s/p bowel resection, carotid artery occlusion, obesity, urinary incontinence presented to ER with c/o SOB. Patient states past month with SOB with exertion. Also reports intermittent dizziness, fatigue. States she has had several falls secondary to dizziness. Most recent fall was 4 days ago and reports has ecchymosis to left face and neck from fall. Denies other injury. Patient states recently diagnosed with atrial fibrillation, however outpatient note review states patient with PAF. Do not see any recent outpatient cardiology visits in records. Patient thinks is taking metoprolol succinate 12.5mg BID. She states contacted cardiology office today with her symptoms and was referred to ER. Denies fever/chills, diaphoresis, N/V/D/C, SALDIVAR, syncope, vision changes, CP, orthopnea, cough, sore throat, choking, otalgia, rhinorrhea, abdominal pain, paresthesias, weakness, extremity weakness, extremity edema, rashes, urinary symptoms. In ER patient found to be in a-fib RVR with rate 120's. Was given dose of Lopressor 5mg IV x 2 with improvement HR to 101. Patient reports is feeling better. Allergies Allergy/AdvReac Type Severity Reaction Status Date / Time bee venom protein (honey bee) Allergy Intermediate SWELLING - Verified 04/25/22 20:22 LOCALIZED AT [facility] lisinopril AdvReac Mild COUGH Verified 04/25/22 20:22 Home Medications Medication Instructions Recorded Confirmed Type atorvastatin 80 mg tablet 80 mg PO QAM 03/07/19 04/25/22 History ezetimibe 10 mg tablet 10 mg PO QAM 03/07/19 04/25/22 History metformin 500 mg tablet 1,000 mg PO BIDM 03/07/19 04/25/22 History amlodipine 5 mg tablet 2.5 mg PO QAM 04/04/21 04/25/22 History metoprolol succinate 25 mg 12.5 mg PO BID 11/20/21 04/25/22 History tablet,extended release 24 hr aspirin 81 mg tablet,delayed 81 mg PO QAM 04/25/22 04/25/22 History release duloxetine 60 mg capsule,delayed 120 mg PO QAM 04/25/22 04/25/22 History release indapamide 2.5 mg tablet 2.5 mg PO QAM 04/25/22 04/25/22 History loratadine 10 mg tablet (Claritin) 10 mg PO DAILY PRN ALLERGIES 04/25/22 04/25/22 History losartan 100 mg tablet 100 mg PO QAM 04/25/22 04/25/22 History mirabegron 50 mg tablet,extended 50 mg PO QAM 04/25/22 04/25/22 History release 24 hr (Myrbetriq) warfarin 5 mg tablet 5 mg PO QPM 04/25/22 04/25/22 History Past Med/Surg History Medical History (Updated 04/25/22 @ 21:44 by Porsha Leigh PA-C) Angioleiomyoma CVA (cerebral vascular accident) DECEMBER 2016 - L SIDED WEAKNESS/NUMBNESS, LACK OF COORDINATION Diabetes mellitus, type 2 NIDDM History of colon cancer S/p colon resection (2016) - no chemo/radiation History of skin cancer Hyperlipidemia Hypertension Internal carotid artery stenosis 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), patent left ICA Follows with vascular surgery- currently under surveillance- due for repeat imaging in 2023 Morbid obesity with BMI of 45.0-49.9, adult On anticoagulant therapy Paroxysmal atrial fibrillation On Coumadin Sleep apnea CPAP Surgical History History of anesthesia reaction 12/2016 - COLECTOMY - [facility] - STROKE LIKE SYMPTOMS UPON COMING OUT OF ANESTHESIA - DX CVA FOLLOWING DAY History of colectomy History of colonoscopy with polypectomy History of Mohs micrographic surgery for skin cancer Hx of cardiac catheterization d/t abnormal stress test 11/2021 - false positive - no stents placed - follows Dr. Diggs Hx of coronary angioplasty Family History Unknown Hypertension Coronary heart disease Social History (Updated 04/25/22 @ 19:50 by Porsha Leigh PA-C) Smoking Status: Never smoker Second Hand Exposure: No; Do You Dip or Chew Tobacco: No; Tobacco Cessation Education Requested by Patient: No Hx Alcohol Use: Yes Alcohol type: hard liquor Alcohol type Comment: 2 drinks daily Hx Substance Use: No Preferred Language: Mongolian Communication Ability: Effective Solution Lead Required: No Beliefs That Will Affect Care: None Current Living Situation: Spouse Other Information That Helps Us Care for You: No Feels Safe at Home: Yes Safety Concerns: Feels Safe At This Time Assistive Devices: Cane, CPAP and Oxygen - at Night Review of Systems Review of Systems: All systems reviewed & are unremarkable except as noted in HPI & below Physical Exam Physical Exam: General: no distress, obese Head: normocephalic, atraumatic Eyes: PERRL, EOM's intact, conjunctiva non-injected, anicteric ENT: normal inspection external ears, nose, mucous membranes moist Neck: supple, trachea midline, non-tender; +ecchymosis left neck Lungs: no respiratory distress, +decreased breath sounds right base CV: irregularly irregular, no murmur, 1+ pretibial edema; chest wall +ecchymosis left chest wall Abd: protuberant, normal BS, soft, non-tender Ext: no cyanosis, no calf tenderness Neuro: A&O x 3, no focal deficits noted, normal affect Skin: warm, dry Results & Data Results & [facility] ([facility]) Vital Signs (Past 12 Hours) Vital Signs Temp Pulse Resp BP Pulse Ox O2 Del Method 04/25/22 18:50 101 H 170/133 H 04/25/22 18:09 125 H 152/104 H 04/25/22 17:00 133 H 24 96 Room Air 04/25/22 17:00 96 Room Air 04/25/22 16:44 36.9 C 127 H 28 H 125/76 93 Room Air Laboratory Results Short CBC 04/25/22 Range/Units 17:15 WBC 10.65 (4.8-10.8) K/ul Hgb 11.1 L (12.0-16.0) g/dl Hct 34.1 (34.1-44.9) % Plt Count 425 H (130-400) K/uL BMP 04/25/22 17:15 Sodium 136 Potassium 4.0 Chloride 102 Carbon Dioxide 23 BUN 23 Creatinine 1.01 Glucose 153 H Calcium 9.4 Liver Function 04/25/22 Range/Units 17:15 Total Bilirubin 0.8 (0.2-1.0) mg/dl AST 38 (13-39) U/L ALT 41 (7-52) U/L Alkaline Phosphatase 117 H (34-104) U/L Albumin 4.0 (3.4-5.0) gm/dl Diagnostic Findings Head CT 04/25/22 16:54 CT head/brain wo con CLINICAL HISTORY: 66 years-old Female with Fall, blood thinners. Acute head trauma status post fall TECHNIQUE: Multiple axial CT images of the head were obtained without contrast. A dose lowering technique was utilized adhering to the principles of ALARA. COMPARISON: CT cervical spine of same day, head CT 12/31/2016 FINDINGS: No acute intracranial hemorrhage, midline shift, intracranial mass, hydrocephalus, territorial ischemia or abnormal extra-axial collection. Invo lutional changes with chronic vascular ischemic disease. 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 Cerebral vascular calcifications. The calvarium is intact. The paranasal sinuses, mastoid air cells, and middle ear cavities are clear. IMPRESSION: No acute intracranial abnormality or calvarial fracture. ACT 112: Negative or not required by law. The above report was generated using voice recognition software. It may contain grammatical, syntax or spelling errors. Electronically signed by: Samir Vivas M.D. 04/25/2022 6:[address] 04/25/22 17:16 CT cervical spine wo con CT DOSE: 3353.10 mGy.cm CLINICAL HISTORY: 66 years-old Female with fall. Acute head and neck injury status post fall COMPARISON: CTA neck 12/25/2016 TECHNIQUE: Multiple axial CT images of the cervical spine were obtained without contrast. A dose lowering technique was utilized adhering to the principles of ALARA. FINDINGS: Demineralized appearance of the bones with multilevel degenerative changes. No acute fracture or subluxation identified. Heterogeneity of the thyroid. No prevertebral edema identified. Layering right pleural effusion. The visualized lung apices appear clear. IMPRESSION: 1. No acute cervical spine fracture or subluxation identified. 2. Right pleural effusion. ACT 112: Negative or not required by law. The above report was generated using voice recognition software. It may contain grammatical, syntax or spelling errors. Electronically signed by: Samir Vivas M.D. 04/25/2022 6:[address] 04/25/22 17:[address] WITH CONTRAST HISTORY: Acute left-sided chest pain status post fall fall on coumadin TECHNIQUE: Multiaxial CT images of the chest were performed following the IV administration of 95 cc of Optiray. A dose lowering technique was utilized adhering to the principles of ALARA. COMPARISON: CT cervical spine of same day FINDINGS: Heterogeneous thyroid with a 1.4 cm left-sided thyroid nodule. Mildly enlarged paratracheal lymph nodes measure up to 11 mm, nonspecific. Moderate to marked cardiomegaly without pericardial effusion. Extensive coronary artery calcifications. No thoracic aortic aneurysm or dissection. There is patency of the imaged great vessels. Unremarkable pulmonary artery. No pulmonary emboli are identified. Small left with moderate right pleural effusions. Dependent right greater than left bibasilar consolidation. Intralobular septal thickening with intermixed groundglass opacities. Bronchial wall thickening with bibasilar mucous plugging. Mosaic attenuation of the lungs. 4 mm subpleural solid nodule of the right upper lobe, image 90 series 10. Liver is enlarged. No acute process of the imaged upper abdomen. Unremarkable soft tissues. Degenerative changes of the shoulders and spine. Subacute appearing nondisplaced fracture of the left seventh rib. There are a few healed chronic right-sided rib fractures. No acute fracture is identified. IMPRESSION: 1. Cardiomegaly with pulmonary edema, small left and moderate right pleural effusions. 2. Healing subacute nondisplaced fracture of the anterior left seventh rib. Healed chronic right-sided rib fractures are also noted without acute fracture or pneumothorax. 3. Additional findings as above. ACT 112: Negative or not required by law. Electronically signed by: Samir Vivas M.D. 04/25/2022 6:10 PM ECG Rate (beats per minute): 134 Rhythm: atrial fibrillation Findings: + nonspecific-ST abn Code Status & VTE Plan VTE Prophylaxis Plan VTE Prophylaxis will be ordered: Yes Supervising Physician Co-Signing Physician Notes Patient is a 66-year-old female with a past medical history of stroke, diabetes mellitus type 2, colon cancer, dyslipidemia, hypertension, morbid obesity who had a recent diagnosis of proximal atrial fibrillation and her medications were adjusted for better control of heart rate. She was already on Coumadin. She presented to the hospital with worsening of shortness of breath and was found to be in rapid atrial fibrillation. She received a dose of IV Lasix and IV Lopressor. CT scan of the chest is consistent with small to moderate pleural effusion as well as pulmonary edema. Her INR is also elevated at 4. On examination, patient has decreased breath sounds on right lung base. Bilateral peripheral edema 2-3+ bilateral lower extremity associated with stasis dermatitis. Uncontrolled heart rate also was noticed on examination. On assessment and plan; Uncontrolled atrial fibrillation: Admit to telemetry, continue beta-aline, add as needed Lopressor. We will hold Coumadin for supratherapeutic INR and check INR in the morning and adjust the dose if needed Acute on chronic hypoxic respiratory failure: Likely due to heart failure. Patient did not have any new echocardiogram recently. Will admit to telemetry and check an echocardiogram Consult cardiology Start IV Lasix twice daily and monitor the kidney function and electrolytes while on diuretic Hypomagnesemia: Replace with IV magnesium sulfate [id number] pleural effusion: Likely due to CHF. May improve with diuretic. We will repeat a chest x-ray in 1 to 2 days Diabetes mellitus type 2 in obese: Hold metformin due to recent use of IV contrast, start subcutaneous insulin Obstructive sleep apnea: Continue CPAP
--- NOTE | 2022-04-25 19:23 | Emergency Department Note ---
Impression & Plan Atrial fibrillation with RVR, CHF (congestive heart failure), Pleural effusion, Falls ED Provider Note NAME: KENNA WHITMAN AGE: 66 SEX: F : 1955 ARRIVES VIA: Walk-In INFORMANT: Patient ED PROVIDER(S): Cristi Calhoun DO CHIEF COMPLAINT: shortness of breath HPI: Patient is a 66-year-old who presents the ER for shortness of breath. She is currently anticoagulated and notes that the shortness of breath has been going on for the past 6 weeks. She was diagnosed with A. fib 6 weeks ago and was seen by cardiology today and referred. Has been gradually getting worse. She notes with any movement now she is significantly dyspneic. She followed up with her sleep study provider who diagnosed her with A. fib. She is on Coumadin. She denies any headache or change in vision. No chest pain. Shortness of breath is best with rest but when she gets up and moves around it does worsen significantly. No belly pain nausea vomiting or diarrhea. No dysuria urgency or frequency. No other exacerbating or remitting factors. She has been taking her Coumadin has not missed any doses. ROS: See above HPI for pertinent positives & negatives. A total of 10 systems reviewed and were otherwise negative. PAST MEDICAL HISTORY:See Below PAST SURGICAL HISTORY:See Below FAMILY HISTORY:See Below SOCIAL HISTORY:See Below HOME MEDICATIONS:See Below ALLERGIES:See Below VITALS:See Below PHYSICAL EXAMINATION: GENERAL: Sitting up in bed, alert, chronically ill-appearing, dyspneic with conversation EYE EXAM: normal conjunctiva. PERRL and EOM's grossly intact. NECK: non-tender CHEST: Bruising over the left neck and left anterior chest wall LUNGS: Diminished bilaterally. Normal chest wall mechanics HEART: Tachycardic and irregular regular, S1 normal and S2 normal ABDOMEN: abdomen soft, non-tender, normo-active bowel sounds, no masses, no rebound or guarding. UPPER EXTREMITIES: upper extremities are grossly normal. LOWER EXTREMITIES: Pitting edema to bilateral lower extremities NEURO EXAM: Normal sensorium, cranial nerves II-XII grossly intact, normal speech, no gross weakness of arms, no gross weakness of legs. MEDICAL DECISION MAKING: Patient is a 66-year-old female who presents the ER for shortness of breath. She was seen evaluated by cardiology and referred in. She was diagnosed with A. fib close to 2 months ago. She is on Coumadin. IV was established blood work was obtained. With the recent fall and on Coumadin patient was sent to the CT scanner following an i-STAT as she had a fair amount of bruising over her left neck and chest wall. CT scan of the head chest and cervical spine showed bilateral pleural effusions but no new acute fractures. Labs show no significant leukocytosis. Mild anemia 11. INR was supratherapeutic at 4.3. BMP along with LFTs was fairly unremarkable. Troponin was elevated 27. proBNP elevated at 500. COVID was ordered and pending upon admission. Patient was discussed with Lorna from [facility] service. Patient was given IV Lasix. She given 2 doses of Lopressor and heart rate trended down from the 130s to 100. Patient was updated bedside. She was placed on nasal cannula. She was admitted for further work-up. Triage Nursing notes reviewed. Limited review of prior medical records performed Vital Signs: reviewed and remarkable for tachycardic Differential diagnosis: Differential diagnoses includes but is not limited to pneumonia, bronchitis, COPD/Asthma exacerbation, pneumothorax, pulmonary embolism, congestive heart failure, acute coronary syndrome ER treatment provided: See below Diagnostics interpreted by me: ECG: A. fib RVR rate of 134 Normal axis No PVCs QTC 439 Cardiac Monitoring: An order was placed for continuous cardiac monitoring. The monitor shows a rate of 122 with AFIB RVR rhythm. Laboratory studies: As stated above and show below. Imaging studies: CT of the head, cervical spine and chest shows no new acute fractures but moderate sized pleural effusions Consultation(s): Discussed with Lorna from [facility] service Procedures: none Critical Care: I have personally spent 32 minutes of critical care time in the direct ma nagement of this patient. This includes bedside care, interpretation of diagnostic studies, and testing, discussion with consultants, patient, and family members, and other required patient management activities. This 32 minutes is in excess of all separately billable procedures. 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), patent left ICA Follows with vascular surgery- currently under surveillance- due for repeat imaging in 2023 Morbid obesity with BMI of 45.0-49.9, adult On anticoagulant therapy Paroxysmal atrial fibrillation On Coumadin Sleep apnea CPAP Surgical History History of anesthesia reaction 12/2016 - COLECTOMY - [facility] - STROKE LIKE SYMPTOMS UPON COMING OUT OF ANESTHESIA - DX CVA FOLLOWING DAY History of colectomy History of colonoscopy with polypectomy History of Mohs micrographic surgery for skin cancer Hx of cardiac catheterization d/t abnormal stress test 11/2021 - false positive - no stents placed - follows Dr. Diggs Hx of coronary angioplasty Family History Unknown Hypertension Coronary heart disease Social History Smoking Status: Never smoker Second Hand Exposure: No; Hx Alcohol Use: Yes Alcohol type: wine and hard liquor Hx Substance Use: No Preferred Language: Welsh Communication Ability: Effective Housing Inspectors Required: No Beliefs That Will Affect Care: None Current Living Situation: Spouse Feels Safe at Home: Yes Assistive Devices: CPAP Allergies Allergies Allergy/AdvReac Type Severity Reaction Status Date / Time bee venom protein (honey bee) Allergy Intermediate SWELLING - Verified 01/03/22 12:48 LOCALIZED AT [facility] lisinopril AdvReac Mild COUGH Verified 01/03/22 12:48 Home Meds Home Medications Medication Instructions Recorded Confirmed atorvastatin 80 mg tablet 80 mg PO QAM 03/07/19 01/03/22 ezetimibe 10 mg tablet 10 mg PO QAM 03/07/19 01/03/22 loratadine 10 mg tablet (Claritin) 10 mg PO DAILY PRN Allergy Symptoms 03/07/19 01/03/22 losartan 100 1 tab PO QAM 03/07/19 01/03/22 mg-hydrochlorothiazide 25 mg tablet metformin 500 mg tablet 500 mg PO BID 03/07/19 01/03/22 warfarin 5 mg tablet (Coumadin) 5 mg PO QPM 03/07/19 01/03/22 amlodipine 5 mg tablet 5 mg PO QAM 04/04/21 01/03/22 metoprolol succinate 25 mg 12.5 mg PO [facility] 11/20/21 01/03/22 tablet,extended release 24 hr Results & Data (ED) Vital Signs Vital Signs - 24 hr 04/25/22 16:44 04/25/22 17:00 04/25/22 17:00 Temperature 36.9 C Temperature Source Oral Pulse Rate 127 H 133 H Pulse Rate [Apical] Pulse Rhythm Regular Irregular Pulse Rhythm [Apical] Pulse Strength Normal Pulse Strength [Apical] Respiratory Rate 28 H 24 Respiratory Effort / Characteristics Labored Respiratory Depth Respiratory Pattern Blood Pressure 125/76 Blood Pressure [Left Arm] Blood Pressure Mean 92 Blood Pressure Mean [Left Arm] Blood Pressure Position Lying Blood Pressure Position [Left Arm] Pulse Oximetry 93 96 96 Oxygen Delivery Method Room Air Room Air Room Air Oxygen Flow Rate Sepsis Recent Fever Within 48 Hours No Sepsis New/Unexplained Change in Mental Status N/A Sepsis Action Taken by Nursing No Action Required 04/25/22 18:09 04/25/22 18:50 04/25/22 18:46 Temperature Temperature Source Pulse Rate 125 H 101 H Pulse Rate [Apical] 101 H Pulse Rhythm Pulse Rhythm [Apical] Irregular Pulse Strength Pulse Strength [Apical] Normal Respiratory Rate 24 Respiratory Effort / Characteristics Non-Labored Spontaneous Respiratory Depth Normal Respiratory Pattern Regular Blood Pressure 152/104 H 170/133 H Blood Pressure [Left Arm] 171/133 H Blood Pressure Mean Blood Pressure Mean [Left Arm] 145 Blood Pressure Position Blood Pressure Position [Left Arm] Sitting Pulse Oximetry 93 Oxygen Delivery Method Nasal Cannula Oxygen Flow Rate 2 Sepsis Recent Fever Within 48 Hours Sepsis New/Unexplained Change in Mental Status Sepsis Action Taken by Nursing Laboratory Data Result diagrams: 04/25/22 17:15 04/25/22 17:15 Lab Results 04/25/22 04/25/22 04/25/22 Range/Units 17:15 17:15 17:15 WBC 10.65 (4.8-10.8) K/ul RBC 4.17 (3.93-5.22) M/uL Hgb 11.1 L (12.0-16.0) g/dl POC Hgb (12.0-16.0) g/dl Hct 34.1 (34.1-44.9) % POC Hct (37-47) % MCV 81.8 (80.0-100.0) fL MCH 26.6 (25.0-34.0) pg MCHC 32.6 (32.0-36.0) g/dL RDW Std Deviation 43.9 (36.4-46.3) fL RDW Coeff of Ximena 14.9 H (11.5-14.5) % Plt Count 425 H (130-400) K/uL MPV 9.9 (9.4-12.3) fL Immature Gran % (Auto) 0.4 % Neut % (Auto) 62.7 % Lymph % (Auto) 17.6 % [place] % (Auto) 7.9 % Eos % (Auto) 10.7 % Baso % (Auto) 0.7 % Neut # (Auto) 6.69 H (1.4-6.5) K/uL Lymph # (Auto) 1.87 (1.2-3.4) K/uL [place] # (Auto) 0.84 H (0.24-0.82) K/uL Eos # (Auto) 1.14 H (0-0.50) K/uL Baso # (Auto) 0.07 (0-0.2) K/uL Immature Gran # (Auto) 0.04 H (0.00-0.02) K/uL PT 42.2 H (9.0-12.0) Seconds INR 4.3 H (0.9-1.1) APTT 38.9 H (21.0-31.0) Seconds PTT Ratio 1.4 POC Sodium (135-144) mmol/L Sodium 136 (136-145) mmol/L POC Potassium (3.3-5.0) mmol/L Potassium 4.0 (3.5-5.1) mmol/L POC Chloride (101-112) mmol/L Chloride 102 (98-107) mmol/L Carbon Dioxide 23 (21-32) mmol/L POC Total CO2 (24-31) mmol/L Anion Gap 11 (3-11) POC Anion Gap (16-25) mmol/L POC BUN (7-18) mg/dl BUN 23 (6-23) mg/dl Creatinine 1.01 (0.6-1.2) mg/dl POC Creatinine (0.6-1.3) mg/dl Est Cr Clr Drug Dosing 71.3 ml/min Est GFR ( Amer) 66.7 ml/min Est GFR (Non-Af Amer) 57.6 ml/min BUN/Creatinine Ratio 22.8 H (10-20) Glucose 153 H (70-99(Fasting)) mg/dl POC Glucose (other) (70-99) mg/dl Calcium 9.4 (8.5-10.1) mg/dl POC Ioniz Calcium Khari (1.12-1.32) mmol/l Magnesium 1.4 L (1.7-2.4) mg/dl Total Bilirubin 0.8 (0.2-1.0) mg/dl AST 38 (13-39) U/L ALT 41 (7-52) U/L Alkaline Phosphatase 117 H (34-104) U/L Troponin I High Sens 27.0 H (0-14) pg/ml B-Natriuretic Peptide (0-100) pg/ml Total Protein 6.4 (6.0-8.3) gm/dl Albumin 4.0 (3.4-5.0) gm/dl Globulin 2.4 L (2.5-4.0) gm/dl Albumin/Globulin Ratio 1.7 (0.9-2) 04/25/22 04/25/22 Range/Units 17:15 17:21 WBC (4.8-10.8) K/ul RBC (3.93-5.22) M/uL Hgb (12.0-16.0) g/dl POC Hgb 12.6 (12.0-16.0) g/dl Hct (34.1-44.9) % POC Hct 37 (37-47) % MCV (80.0-100.0) fL MCH (25.0-34.0) pg MCHC (32.0-36.0) g/dL RDW Std Deviation (36.4-46.3) fL RDW Coeff of Ximena (11.5-14.5) % Plt Count (130-400) K/uL MPV (9.4-12.3) fL Immature Gran % (Auto) % Neut % (Auto) % Lymph % (Auto) % [place] % (Auto) % Eos % (Auto) % Baso % (Auto) % Neut # (Auto) (1.4-6.5) K/uL Lymph # (Auto) (1.2-3.4) K/uL [place] # (Auto) (0.24-0.82) K/uL Eos # (Auto) (0-0.50) K/uL Baso # (Auto) (0-0.2) K/uL Immature Gran # (Auto) (0.00-0.02) K/uL PT (9.0-12.0) Seconds INR (0.9-1.1) APTT (21.0-31.0) Seconds PTT Ratio POC Sodium 136 (135-144) mmol/L Sodium (136-145) mmol/L POC Potassium 4.0 (3.3-5.0) mmol/L Potassium (3.5-5.1) mmol/L POC Chloride 101 (101-112) mmol/L Chloride (98-107) mmol/L Carbon Dioxide (21-32) mmol/L POC Total CO2 22 L (24-31) mmol/L Anion Gap (3-11) POC Anion Gap 18.0 (16-25) mmol/L POC BUN 20 H (7-18) mg/dl BUN (6-23) mg/dl Creatinine (0.6-1.2) mg/dl POC Creatinine 1.0 (0.6-1.3) mg/dl Est Cr Clr Drug Dosing ml/min Est GFR ( Amer) ml/min Est GFR (Non-Af Amer) ml/min BUN/Creatinine Ratio (10-20) Glucose (70-99(Fasting)) mg/dl POC Glucose (other) 145 H (70-99) mg/dl Calcium (8.5-10.1) mg/dl POC Ioniz Calcium Khari 1.21 (1.12-1.32) mmol/l Magnesium (1.7-2.4) mg/dl Total Bilirubin (0.2-1.0) mg/dl AST (13-39) U/L ALT (7-52) U/L Alkaline Phosphatase (34-104) U/L Troponin I High Sens (0-14) pg/ml B-Natriuretic Peptide 508 H (0-100) pg/ml Total Protein (6.0-8.3) gm/dl Albumin (3.4-5.0) gm/dl Globulin (2.5-4.0) gm/dl Albumin/Globulin Ratio (0.9-2) Administered Medications Metoprolol Tartrate (Metoprolol Tartrate 1 Mg/Ml Vial) 5 mg IV Q5M PRN PRN Reason: Tachycardia Stop: 05/25/22 18:18 Last Admin: 04/25/22 18:50 Dose: 2.5 mg Documented By: MARQUISE Discontinued Medications Furosemide (Furosemide 40 Mg/4 Ml Vial) 40 mg IV NOW STA Stop: 04/25/22 18:41 Last Admin: 04/25/22 18:58 Dose: 40 mg Documented By: MARQUISE Ioversol (Ioversol 350 Mg 100ml Prefilled Syringe) 95 ml IV ONCE ONE Stop: 04/25/22 17:47 Last Admin: 04/25/22 17:46 Dose: 95 ml Documented By: LOBO Metoprolol Tartrate (Metoprolol Tartrate 1 Mg/Ml Vial) 5 mg IV NOW STA Stop: 04/25/22 17:17 Last Admin: 04/25/22 18:09 Dose: 5 mg Documented By: MARLENY Imaging Data Radiologist's Impression: Head CT 04/25/22 16:54 CT head/brain wo con CLINICAL HISTORY: 66 years-old Female with Fall, blood thinners. Acute head trauma status post fall TECHNIQUE: Multiple axial CT images of the head were obtained without contrast. A dose lowering technique was utilized adhering to the principles of ALARA. COMPARISON: CT cervical spine of same day, head CT 12/31/2016 FINDINGS: No acute intracranial hemorrhage, midline shift, intracranial mass, hydrocephalus, territorial ischemia or abnormal extra-axial collection. Involutional changes with chronic vascular ischemic disease. 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 Cerebral vascular calcifications. The calvarium is intact. The paranasal sinuses, mastoid air cells, and middle ear cavities are clear. IMPRESSION: No acute intracranial abnormality or calvarial fracture. ACT 112: Negative or not required by law. The above report was generated using voice recognition software. It may contain grammatical, syntax or spelling errors. Electronically signed by: Samir Vivas M.D. 04/25/2022 6:[address] 04/25/22 17:16 CT cervical spine wo con CT DOSE: 3353.10 mGy.cm CLINICAL HISTORY: 66 years-old Female with fall. Acute head and neck injury status post fall COMPARISON: CTA neck 12/25/2016 TECHNIQUE: Multiple axial CT images of the cervical spine were obtained without contrast. A dose lowering technique was utilized adhering to the principles of ALARA. FINDINGS: Demineralized appearance of the bones with multilevel degenerative changes. No acute fracture or subluxation identified. Heterogeneity of the thyroid. No prevertebral edema identified. Layering right pleural effusion. The visualized lung apices appear clear. IMPRESSION: 1. No acute cervical spine fracture or subluxation identified. 2. Right pleural effusion. ACT 112: Negative or not required by law. The above report was generated using voice recognition software. It may contain grammatical, syntax or spelling errors. Electronically signed by: Samir Vivas M.D. 04/25/2022 6:[address] 04/25/22 17:[address] WITH CONTRAST HISTORY: Acute left-sided chest pain status post fall fall on coumadin TECHNIQUE: Multiaxial CT images of the chest were performed following the IV administration of 95 cc of Optiray. A dose lowering technique was utilized adhering to the principles of ALARA. COMPARISON: CT cervical spine of same day FINDINGS: Heterogeneous thyroid with a 1.4 cm left-sided thyroid nodule. Mildly enlarged paratracheal lymph nodes measure up to 11 mm, nonspecific. Moderate to marked cardiomegaly without pericardial effusion. Extensive coronary artery calcifications. No thoracic aortic aneurysm or dissection. There is patency of the imaged great vessels. Unremarkable pulmonary artery. No pulmonary emboli are identified. Small left with moderate right pleural effusions. Dependent right greater than left bibasilar consolidation. Intralobular septal thickening with intermixed groundglass opacities. Bronchial wall thickening with bibasilar mucous plugging. Mosaic attenuation of the lungs. 4 mm subpleural solid nodule of the right upper lobe, image 90 series 10. Liver is enlarged. No acute process of the imaged upper abdomen. Unremarkable soft tissues. Degenerative changes of the shoulders and spine. Subacute appearing nondisplaced fracture of the left seventh rib. There are a few healed chronic right-sided rib fractures. No acute fracture is identified. IMPRESSION: 1. Cardiomegaly with pulmonary edema, small left and moderate right pleural effusions. 2. Healing subacute nondisplaced fracture of the anterior left seventh rib. Healed chronic right-sided rib fractures are also noted without acute fracture or pneumothorax. 3. Additional findings as above. ACT 112: Negative or not required by law. Electronically signed by: Samir Vivas M.D. 04/25/2022 6:10 PM Discharge Plan Visit Data Chief Complaint: Shortness of Breath/Dyspnea Stated Complaint: SHORTNESS OF BREATH, A-FIB ED Provider: Cristi Calhoun Discharge Problem: Atrial fibrillation with RVR, CHF (congestive heart failure), Pleural effusion, Falls Forms Stand Alone Forms: [facility] Prescriptions Prescriptions: No Action metformin 500 mg Tablet 500 mg PO BID atorvastatin 80 mg Tablet 80 mg PO QAM losartan-hydrochlorothiazide 100-25 mg Tablet 1 tab PO QAM warfarin [Coumadin] 5 mg Tablet 5 mg PO QPM ezetimibe 10 mg Tablet 10 mg PO QAM loratadine [Claritin] 10 mg Tablet 10 mg PO DAILY PRN (Reason: Allergy Symptoms) metoprolol succinate 25 mg Tablet Extended Release 24 Hr 12.5 mg PO QAM amlodipine 5 mg Tablet 5 mg PO QAM Referrals Referrals: Shiva Rich MD [Primary Care Provider] -
[2022-04-25] MEDS ORDERED: GLUCOSE 10 TAB/TUBE PO PRN (20:51)
[2022-04-25] MEDS ORDERED: POLYETHYLENE (MIRALAX) 17 GM PACK PO PRN (20:51)
[2022-04-25] MEDS ORDERED: CARBOHYDRATES FOR HYPOGLYCEMIA PO PRN (20:51)
[2022-04-25] MEDS ORDERED: ACETAMINOPHEN 325 MG TAB PO PRN (20:51)
[2022-04-25] MEDS ORDERED: ALUMINUM/MAGNESIUM SUSP 30 ML UDC PO PRN (20:51)
[2022-04-25] MEDS ORDERED: DEXTROSE 50% 50 ML SYRINGE IV PRN (20:51)
[2022-04-25] MEDS ORDERED: MAGNESIUM HYDROXIDE SUSP 30 ML UDC PO PRN (20:51)
[2022-04-25] MEDS ORDERED: ONDANSETRON INJ 2 MG/ML 2 ML VIAL IV PRN (20:51)
[2022-04-25] MEDS ORDERED: NITROGLYCERIN SL 0.4 MG/TAB TAB SL PRN (20:51)
[2022-04-25] MEDS ORDERED: GLUCOSE 40% GEL 15 GM TUBE PO PRN (20:51)
[2022-04-25] MEDS ORDERED: GLUCAGON FOR INJ 1 MG VIAL SQ PRN (20:51)
[2022-04-25 21:22] LABS: Thyroid Stimulating Hormone 4.612 uIu/ml (0.300-4.500)
[2022-04-25] MEDS: MAGNESIUM SULFATE / D5W 1 GM/100 ML BAG IV SCH ×2 (21:46→23:08)
[2022-04-25] MEDS: INSULIN ASPART PER UNIT SC SCH (21:47)
[2022-04-25 21:53] LABS: T4 Free Thyroxine 1.02 ng/dl (0.61-1.60)
[2022-04-25] MEDS: MIRABEGRON ER 25 MG TAB PO SCH (22:00)
[2022-04-25] MEDS: METOPROLOL SUCC 25MG EXT REL TAB PO SCH (22:04)
--- NOTE | 2022-04-25 23:01 | Communication Note ---
Date of Service: April 25, 2022 Notified by RN of positive orthostatic vitals on the floor. Hold home amlodipine for now.
[2022-04-26 07:03] LABS: Hematocrit (blood only) 33.5 % (34.1-44.9); Mean Corpuscular Hemoglobin 27.1 pg (25.0-34.0); Mean Corpuscular Hgb Conc 32.8 g/dL (32.0-36.0); Mean Corpuscular Volume 82.5 fL (80.0-100.0); Mean Platelet Volume 9.9 fL (9.4-12.3); Platelet Count 373 K/uL (130-400); RDW Coefficient of Variation 14.9 % (11.5-14.5); RDW Standard Deviation 44.5 fL (36.4-46.3); Red Blood Count 4.06 M/uL (3.93-5.22); White Blood Count 9.17 K/ul (4.8-10.8)
[2022-04-26] MEDS ORDERED: PERFLUTREN LIPID MICROSPHERE (DEFINITY) IV ONE (07:03)
[2022-04-26 07:19] LABS: INR 2.9 (0.9-1.1); Prothrombin Time 29.5 Seconds (9.0-12.0)
[2022-04-26 07:35] LABS: Troponin I High Sensitivity 29.9 pg/ml (0-14)
[2022-04-26 07:40] LABS: Estimated Average Glucose 157 mg/dl; Hemoglobin A1C 7.1 % (4.5-5.6)
[2022-04-26 07:44] LABS: Albumin Globulin Ratio 1.8 (0.9-2); BUN Creatinine Ratio 21.5 (10-20); Bilirubin,Total 0.8 mg/dl (0.2-1.0); Calcium 9.6 mg/dl (8.5-10.1); Creatinine Clr Calc Pharmacy 66.3 ml/min; Est GFR (African American) 62.2 ml/min; Est GFR (Non-African American) 53.7 ml/min; Globulin 2.2 gm/dl (2.5-4.0); Magnesium 1.6 mg/dl (1.7-2.4); Potassium 3.6 mmol/L (3.5-5.1); Total Protein 6.2 gm/dl (6.0-8.3)
[2022-04-26] MEDS: INSULIN ASPART PER UNIT SC SCH ×4 (07:50→20:46)
[2022-04-26] MEDS: FUROSEMIDE 40 MG/4 ML VIAL IV SCH ×2 (08:21→16:12)
[2022-04-26] MEDS: ASPIRIN 81 MG ECTAB PO SCH (08:22)
[2022-04-26] MEDS: LOSARTAN POTASSIUM 50 MG TAB PO SCH (08:22)
[2022-04-26] MEDS: METOPROLOL SUCC 25MG EXT REL TAB PO SCH ×2 (08:22→20:34)
[2022-04-26] MEDS: EZETIMIBE 10 MG TABLET PO SCH (08:22)
[2022-04-26] MEDS: ATORVASTATIN 40 MG TAB PO SCH (08:22)
[2022-04-26] MEDS: DULoxetine HCL 60 MG CAP PO SCH (08:22)
--- NOTE | 2022-04-26 08:45 | Cardiology Consultation ---
Date of Consultation April 26, 2022 Assessment & Plan (1) Atrial fibrillation with RVR: (2) Morbid obesity with BMI of 45.0-49.9, adult: (3) CVA (cerebral vascular accident): (4) (HFpEF) heart failure with preserved ejection fraction: (5) Sleep apnea: Plan Given the patient's multiple comorbidities and her presentation with heart failure with preserved ejection fraction most likely on the basis of the atrial fibrillation, I think it is not unreasonable to start this patient on amiodarone. If she does not convert spontaneously to sinus rhythm then cardioversion will be considered. She has been anticoagulated long-term on warfarin. After starting the amiodarone we will have to follow her INR. History of Present Illness Attending Physician: Rubin Woods MD History of Present Illness This is a 66-year-old morbidly obese female with a previous history of paroxysmal atrial fibrillation, hypertension, carotid artery disease and previous CVA who was in her usual state of health until several weeks ago she began to have some dizziness resulting in falls along with progressive shortness of breath. Earlier this year she had an abnormal stress test and underwent a cardiac catheterization that revealed minor coronary artery disease. The patient presented to the emergency department and was found to be in atrial fibrillation with RVR. Congestive heart failure most likely on the basis of HFpEF and atrial fibrillation. She has been given IV diuretics with improvement in her symptoms. She remains in atrial fibrillation. 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 Cardiac cath 2021 showed minor coronary artery disease. Allergies Allergy/AdvReac Type Severity Reaction Status Date / Time bee venom protein (honey bee) Allergy Intermediate SWELLING - Verified 04/25/22 20:22 LOCALIZED AT [facility] lisinopril AdvReac Mild COUGH Verified 04/25/22 20:22 Home Medications Medication Instructions Recorded Confirmed Type atorvastatin 80 mg tablet 80 mg PO QAM 03/07/19 04/25/22 History ezetimibe 10 mg tablet 10 mg PO QAM 03/07/19 04/25/22 History metformin 500 mg tablet 1,000 mg PO BIDM 03/07/19 04/25/22 History amlodipine 5 mg tablet 2.5 mg PO QAM 04/04/21 04/25/22 History metoprolol succinate 25 mg 12.5 mg PO BID 11/20/21 04/25/22 History tablet,extended release 24 hr aspirin 81 mg tablet,delayed 81 mg PO QAM 04/25/22 04/25/22 History release duloxetine 60 mg capsule,delayed 120 mg PO QAM 04/25/22 04/25/22 History release indapamide 2.5 mg tablet 2.5 mg PO QAM 04/25/22 04/25/22 History loratadine 10 mg tablet (Claritin) 10 mg PO DAILY PRN ALLERGIES 04/25/22 04/25/22 History losartan 100 mg tablet 100 mg PO QAM 04/25/22 04/25/22 History mirabegron 50 mg tablet,extended 50 mg PO QAM 04/25/22 04/25/22 History release 24 hr (Myrbetriq) warfarin 5 mg tablet 5 mg PO QPM 04/25/22 04/25/22 History Patient History Medical History Angioleiomyoma CVA (cerebral vascular accident) DECEMBER 2016 - L SIDED WEAKNESS/NUMBNESS, LACK OF COORDINATION Diabetes mellitus, type 2 NIDDM History of colon cancer S/p colon resection (2016) - no chemo/radiation History of skin cancer Hyperlipidemia Hypertension Internal carotid artery stenosis 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), patent left ICA Follows with vascular surgery- currently under surveillance- due for repeat imaging in 2023 Morbid obesity with BMI of 45.0-49.9, adult On anticoagulant therapy Paroxysmal atrial fibrillation On Coumadin Sleep apnea CPAP Surgical History History of anesthesia reaction 12/2016 - COLECTOMY - [facility] - STROKE LIKE SYMPTOMS UPON COMING OUT OF ANESTHESIA - DX CVA FOLLOWING DAY History of colectomy History of colonoscopy with polypectomy History of Mohs micrographic surgery for skin cancer Hx of cardiac catheterization d/t abnormal stress test 11/2021 - false positive - no stents placed - follows Dr. Diggs Hx of coronary angioplasty Family History Unknown Hypertension Coronary heart disease Social History Smoking Status: Never smoker Second Hand Exposure: No; Do You Dip or Chew Tobacco: No; Tobacco Cessation Education Requested by Patient: No Hx Alcohol Use: Yes Alcohol type: hard liquor Alcohol type Comment: 2 drinks daily Hx Substance Use: No Preferred Language: Yi Communication Ability: Effective Instructional Designer Required: No Beliefs That Will Affect Care: None Current Living Situation: Spouse Other Information That Helps Us Care for You: No Feels Safe at Home: Yes Safety Concerns: Feels Safe At This Time Assistive Devices: Cane, CPAP and Oxygen - at Night Review of Systems Review of Systems: Review of Systems: See HPI for pertinent positives. All other 10 point review of systems are negative. Physical Exam Physical Exam: General: no acute distress and stated age Head: normocephalic, no masses, lesions, tenderness or abnormalities Eyes: conjunctiva are pink and non-injected, sclera clear Neck: supple, no adenopathy, no bruits, normal jugular venous pulse, no hepatojugular reflux Chest: normal shape and normal respiratory effort Lungs: clear to auscultation and percussion Cardiac Exam: - regular rate & rhythm, no murmurs gallops or rubs - normal S1, normal S2 Pulses: 2(+) throughout Abdomen: abdomen soft, non-tender, no abnormal masses and no hepatosplenomegaly Musculoskeletal: no gait disturbance, no joint inflammation, no deforming arthritis Extremities: no edema and no cyanosis Neuro: grossly normal exam Results & Data ([facility]) Vital Signs (Past 12 Hours) Vital Signs Temp Pulse Pulse Resp BP Pulse Ox O2 Del Method 04/26/22 08:06 36.5 C 83 20 137/102 H 95 CPAP 04/26/22 04:40 95 H 25 H 95 04/26/22 04:37 36.8 C 96 H 20 140/93 91 Nasal Cannula 04/25/22 20:50 115 H O2 Flow Rate 04/26/22 08:06 04/26/22 04:40 3 04/26/22 04:37 4 04/25/22 20:50 Laboratory Results Laboratory Results - last 24 hr 04/25/22 04/25/22 04/25/22 17:15 17:15 17:15 WBC 10.65 RBC 4.17 Hgb 11.1 L POC Hgb Hct 34.1 POC Hct MCV 81.8 MCH 26.6 MCHC 32.6 RDW Std Deviation 43.9 RDW Coeff of Ximena 14.9 H Plt Count 425 H MPV 9.9 Immature Gran % (Auto) 0.4 Neut % (Auto) 62.7 Lymph % (Auto) 17.6 Harris % (Auto) 7.9 Eos % (Auto) 10.7 Baso % (Auto) 0.7 Neut # (Auto) 6.69 H Lymph # (Auto) 1.87 Harris # (Auto) 0.84 H Eos # (Auto) 1.14 H Baso # (Auto) 0.07 Immature Gran # (Auto) 0.04 H PT 42.2 H INR 4.3 H APTT 38.9 H PTT Ratio 1.4 POC Sodium Sodium 136 POC Potassium Potassium 4.0 POC Chloride Chloride 102 Carbon Dioxide 23 POC Total CO2 Anion Gap 11 POC Anion Gap POC BUN BUN 23 Creatinine 1.01 POC Creatinine Est Cr Clr Drug Dosing 71.3 Est GFR ( Amer) 66.7 Est GFR (Non-Af Amer) 57.6 BUN/Creatinine Ratio 22.8 H Glucose 153 H POC Glucose POC Glucose (other) Estimat Average Glucose Hemoglobin A1c Calcium 9.4 POC Ioniz Calcium Khari Magnesium 1.4 L Total Bilirubin 0.8 AST 38 ALT 41 Alkaline Phosphatase 117 H Troponin I High Sens 27.0 H B-Natriuretic Peptide Total Protein 6.4 Albumin 4.0 Globulin 2.4 L Albumin/Globulin Ratio 1.7 TSH Free T4 SARS-CoV-2 (PCR) Hepatitis C Ab (EIA) Hep C Ab Signal/Cutoff 04/25/22 04/25/22 04/25/22 17:15 17:17 17:21 WBC RBC Hgb POC Hgb 12.6 Hct POC Hct 37 MCV MCH MCHC RDW Std Deviation RDW Coeff of Ximena Plt Count MPV Immature Gran % (Auto) Neut % (Auto) Lymph % (Auto) Harris % (Auto) Eos % (Auto) Baso % (Auto) Neut # (Auto) Lymph # (Auto) Harris # (Auto) Eos # (Auto) Baso # (Auto) Immature Gran # (Auto) PT INR APTT PTT Ratio POC Sodium 136 Sodium POC Potassium 4.0 Potassium POC Chloride 101 Chloride Carbon Dioxide POC Total CO2 22 L Anion Gap POC Anion Gap 18.0 POC BUN 20 H BUN Creatinine POC Creatinine 1.0 Est Cr Clr Drug Dosing Est GFR ( Amer) Est GFR (Non-Af Amer) BUN/Creatinine Ratio Glucose POC Glucose POC Glucose (other) 145 H Estimat Average Glucose Hemoglobin A1c Calcium POC Ioniz Calcium Khari 1.21 Magnesium Total Bilirubin AST ALT Alkaline Phosphatase Troponin I High Sens B-Natriuretic Peptide 508 H Total Protein Albumin Globulin Albumin/Globulin Ratio TSH 4.612 H Free T4 1.02 SARS-CoV-2 (PCR) Hepatitis C Ab (EIA) Hep C Ab Signal/Cutoff 04/25/22 04/25/22 04/25/22 18:17 20:54 22:46 WBC RBC Hgb POC Hgb Hct POC Hct MCV MCH MCHC RDW Std Deviation RDW Coeff of Ximena Plt Count MPV Immature Gran % (Auto) Neut % (Auto) Lymph % (Auto) Harris % (Auto) Eos % (Auto) Baso % (Auto) Neut # (Auto) Lymph # (Auto) Harris # (Auto) Eos # (Auto) Baso # (Auto) Immature Gran # (Auto) PT INR APTT PTT Ratio POC Sodium Sodium POC Potassium Potassium POC Chloride Chloride Carbon Dioxide POC Total CO2 Anion Gap POC Anion Gap POC BUN BUN Creatinine POC Creatinine Est Cr Clr Drug Dosing Est GFR ( Amer) Est GFR (Non-Af Amer) BUN/Creatinine Ratio Glucose POC Glucose 149 H POC Glucose (other) Estimat Average Glucose Hemoglobin A1c Calcium POC Ioniz Calcium Khari Magnesium Total Bilirubin AST ALT Alkaline Phosphatase Troponin I High Sens 32.0 H B-Natriuretic Peptide Total Protein Albumin Globulin Albumin/Globulin Ratio TSH Free T4 SARS-CoV-2 (PCR) NEGATIVE Hepatitis C Ab (EIA) Hep C Ab Signal/Cutoff 04/26/22 04/26/22 04/26/22 06:40 06:40 06:40 WBC 9.17 RBC 4.06 Hgb 11.0 L POC Hgb Hct 33.5 L POC Hct MCV 82.5 MCH 27.1 MCHC 32.8 RDW Std Deviation 44.5 RDW Coeff of Ximena 14.9 H Plt Count 373 MPV 9.9 Immature Gran % (Auto) Neut % (Auto) Lymph % (Auto) Harris % (Auto) Eos % (Auto) Baso % (Auto) Neut # (Auto) Lymph # (Auto) Harris # (Auto) Eos # (Auto) Baso # (Auto) Immature Gran # (Auto) PT 29.5 H INR 2.9 H APTT PTT Ratio POC Sodium Sodium 137 POC Potassium Potassium 3.6 POC Chloride Chloride 100 Carbon Dioxide 27 POC Total CO2 Anion Gap 10 POC Anion Gap POC BUN BUN 23 Creatinine 1.07 POC Creatinine Est Cr Clr Drug Dosing 66.3 Est GFR ( Amer) 62.2 Est GFR (Non-Af Amer) 53.7 BUN/Creatinine Ratio 21.5 H Glucose 127 H POC Glucose POC Glucose (other) Estimat Average Glucose Hemoglobin A1c Calcium 9.6 POC Ioniz Calcium Khari Magnesium 1.6 L Total Bilirubin 0.8 AST 39 ALT 41 Alkaline Phosphatase 116 H Troponin I High Sens 29.9 H B-Natriuretic Peptide Total Protein 6.2 Albumin 4.0 Globulin 2.2 L Albumin/Globulin Ratio 1.8 TSH Free T4 SARS-CoV-2 (PCR) Hepatitis C Ab (EIA) Hep C Ab Signal/Cutoff 04/26/22 04/26/22 04/26/22 06:40 06:40 07:16 WBC RBC Hgb POC Hgb Hct POC Hct MCV MCH MCHC RDW Std Deviation RDW Coeff of Ximena Plt Count MPV Immature Gran % (Auto) Neut % (Auto) Lymph % (Auto) Harris % (Auto) Eos % (Auto) Baso % (Auto) Neut # (Auto) Lymph # (Auto) Harris # (Auto) Eos # (Auto) Baso # (Auto) Immature Gran # (Auto) PT INR APTT PTT Ratio POC Sodium Sodium POC Potassium Potassium POC Chloride Chloride Carbon Dioxide POC Total CO2 Anion Gap POC Anion Gap POC BUN BUN Creatinine POC Creatinine Est Cr Clr Drug Dosing Est GFR ( Amer) Est GFR (Non-Af Amer) BUN/Creatinine Ratio Glucose POC Glucose 127 H POC Glucose (other) Estimat Average Glucose 157 Hemoglobin A1c 7.1 H Calcium POC Ioniz Calcium Khari Magnesium Total Bilirubin AST ALT Alkaline Phosphatase Troponin I High Sens B-Natriuretic Peptide Total Protein Albumin Globulin Albumin/Globulin Ratio TSH Free T4 SARS-CoV-2 (PCR) Hepatitis C Ab (EIA) Pending Hep C Ab Signal/Cutoff Pending Medications Administered Current Inpatient Medications Acetaminophen (Acetaminophen 325 Mg Tab) 650 mg PO Q4H PRN PRN Reason: Pain or Fever Stop: 05/25/22 20:50 Al Hydrox/Mg Hydrox/Simethicone (Aluminum/Magnesium Susp 30 Ml Udc) 15 ml PO Q4H PRN PRN Reason: Dyspepsia Stop: 05/25/22 20:50 Amiodarone HCl (Amiodarone 200 Mg Tab) 200 mg PO TIDM [facility] Stop: 05/26/22 11:59 Aspirin (Aspirin 81 Mg Ectab) [facility] Stop: 05/26/22 08:59 Last Admin: 04/26/22 08:22 Dose: 81 mg Atorvastatin Calcium (Atorvastatin 40 Mg Tab) [facility] [place] Stop: 05/26/22 08:59 Last Admin: 04/26/22 08:22 Dose: 80 mg Dextrose (Dextrose 50% 50 Ml Syringe) 25 - 50 ml IV UD PRN; Protocol PRN Reason: Hypoglycemia Protocol Stop: 05/25/22 20:50 Duloxetine HCl (Duloxetine Hcl 60 Mg Cap) 120 [facility] [place] Stop: 05/26/22 08:59 Last Admin: 04/26/22 08:22 Dose: 120 mg Ezetimibe (Ezetimibe 10 Mg Tablet) [facility] [place] Stop: 05/26/22 08:59 Last Admin: 04/26/22 08:22 Dose: 10 mg Furosemide (Furosemide 40 Mg/4 Ml Vial) 40 mg IV [id number] [facility] Stop: 05/26/22 08:59 Last Admin: 04/26/22 08:21 Dose: 40 mg Glucagon (Glucagon For Inj 1 Mg Vial) 1 mg SQ UD PRN; Protocol PRN Reason: Hypoglycemia Protocol Stop: 05/25/22 20:50 Glucose (Glucose 40% Gel 15 Gm Tube) 15 - 30 gm PO UD PRN; Protocol PRN Reason: Hypoglycemia Protocol Stop: 05/25/22 20:50 Glucose (Glucose 10 Tab/Tube) 4 - 8 tab PO UD PRN; Protocol PRN Reason: Hypoglycemia Treatment Stop: 05/25/22 20:50 Magnesium Sulfate/Dextrose (Magnesium Sulfate / D5w) 1 gm in 100 mls @ 50 mls/hr IV Q2H [facility] Stop: 04/26/22 13:29 Last Admin: 04/26/22 09:24 Dose: 50 mls/hr Indapamide (Indapamide 1.25 Mg Tab) 2.5 mg PO QAM [facility] Stop: 05/26/22 08:59 Insulin Aspart (Insulin Aspart Per Unit) 0 units SC ACHS [facility] Stop: 05/25/22 20:59 Last Admin: 04/26/22 07:50 Dose: 2 units Losartan Potassium (Losartan Potassium 50 Mg Tab) 100 mg PO QAM [facility] Stop: 05/26/22 08:59 Last Admin: 04/26/22 08:22 Dose: 100 mg Magnesium Hydroxide (Magnesium Hydroxide Susp 30 Ml Udc) 30 ml PO Q12H PRN PRN Reason: Constipation Stop: 05/25/22 20:50 Metoprolol Succinate (Metoprolol Succ 25mg Ext Rel Tab) 12.5 mg PO BID [facility] Stop: 05/25/22 20:59 Last Admin: 04/26/22 08:22 Dose: 12.5 mg Metoprolol Tartrate (Metoprolol Tartrate 1 Mg/Ml Vial) 5 mg IV Q6 PRN PRN Reason: Tachycardia> 120 Stop: 05/25/22 18:18 Mirabegron (Mirabegron Er 25 Mg Tab) 25 mg PO HS [facility] Stop: 05/25/22 21:44 Last Admin: 04/25/22 22:00 Dose: 25 mg Miscellaneous (Carbohydrates For Hypoglycemia ) 15 - 30 gm PO UD PRN PRN Reason: Hypoglycemia Protocol Stop: 05/25/22 20:50 Nitroglycerin (Nitroglycerin Sl 0.4 Mg/Tab Tab) 0.4 mg SL UD PRN PRN Reason: Chest Pain Stop: 05/25/22 20:50 Ondansetron HCl (Ondansetron Inj 2 Mg/Ml 2 Ml Vial) 4 mg IV Q6H PRN PRN Reason: Nausea Stop: 05/25/22 20:50 Polyethylene Glycol (Polyethylene (Miralax) 17 Gm Pack) 17 gm PO DAILY PRN PRN Reason: Constipation Stop: 05/25/22 20:50 Potassium Chloride (Potassium Chloride Crtab 20 Meq Tabcr) 20 meq PO BID [facility] Stop: 05/26/22 10:29 Last Admin: 04/26/22 09:31 Dose: 20 meq Warfarin Sodium (Warfarin Sod 1 Mg Tab) 1 mg PO DAILY@1600 [facility] Stop: 05/26/22 15:59
[2022-04-26] MEDS ORDERED: MIRABEGRON ER 25 MG TAB PO SCH (09:00)
[2022-04-26] MEDS ORDERED: INDAPAMIDE 1.25 MG TAB PO SCH (09:00)
[2022-04-26] MEDS ORDERED: amLODIPine BESYLATE 5 MG TAB PO SCH (09:00)
[2022-04-26] MEDS ORDERED: POTASSIUM CHLORIDE CRTAB 20 MEQ TABCR PO ONE (09:08)
[2022-04-26] MEDS: MAGNESIUM SULFATE / D5W 1 GM/100 ML BAG IV SCH ×2 (09:24→11:05)
[2022-04-26] MEDS: POTASSIUM CHLORIDE CRTAB 20 MEQ TABCR PO SCH ×2 (09:31→20:34)
[2022-04-26] MEDS: AMIODARONE 200 MG TAB PO SCH ×2 (11:48→16:12)
--- NOTE | 2022-04-26 12:51 | Electrocardiogram Report ---
Test Reason : Blood Pressure : / mmHG Vent. Rate : 134 BPM Atrial Rate : 147 BPM P-R Int : 000 ms QRS Dur : 066 ms QT Int : 294 ms P-R-T Axes : 000 010 063 degrees QTc Int : 439 ms Atrial fibrillation with rapid ventricular response Low voltage QRS Nonspecific ST abnormality Abnormal ECG When compared with ECG of 25-DEC-2016 13:43, Atrial fibrillation has replaced Sinus rhythm Vent. rate has increased BY 62 BPM QRS voltage has decreased Confirmed by Akin Campbell ([id number]) on 04/26/2022 12:50:45 PM Referred By: REFERRED SELF Confirmed By:Akin Campbell
--- NOTE | 2022-04-26 15:16 | Hospitalist Progress Note ---
Date of Service April 26, 2022 Assessment & Plan (1) Atrial fibrillation with RVR: Plan: Patient is a 66 yr female with H/O PAF anticoagulated on warfarin, CVA, HTN, dyslipidemia, DM II, SALVADOR, colon cancer s/p bowel resection, carotid artery occlusion, obesity, urinary incontinence presented to ER with c/o exertional SOB x 1 month, dizziness and fatigue. A. fib RVR H/O P.Afib On chronic anticoagulation with Coumadin Supratherapeutic INR TSH 4.6, free T4 Normal Continue metoprolol 12.5 mg twice a day Started on amiodarone IV Lopressor as needed Continue Coumadin for anticoagulation Monitor INR 4.3>>2.9 Replace electrolytes as needed Appreciate cardiology input May need cardioversion (2) SOB (shortness of breath): Plan: Acute systolic CHF exacerbation --Chest CT:Cardiomegaly with pulmonary edema, small left and moderate right pleural effusions. --ECHO: Left ventricle is grossly normal size. Left ventricle systolic function is moderately to severely reduced. EF 30 to 35%. Right ventricle systolic function is moderately reduced. Left atrium is moderately dilated. Right atrium is mild to moderately dilated. Aortic valve stenosis moderate, without significant aortic valvular stenosis. Mild aortic regurgitation. Moderate mitral and tricuspid regurgitation present. --Continue IV Lasix 40mg BID Monitor daily weight, I/Os, fluid restriction Oxygen support as needed Monitor renal function/electrolytes Cardiology on board Chronic rib fractures CT:Healing subacute nondisplaced fracture of the anterior left seventh rib. Healed chronic right-sided rib fractures are also noted without acute fracture or pneumothorax. Denies any pain (3) Elevated troponin: Plan: Mild troponin elevation Likely demand ischemia from tachycardia, CHF Echo showed no wall motion abnormality (4) Hypomagnesemia: Plan: Hypomagnesemia Replete electrolytes as needed (5) Fall: Plan: H/O Recurrent falls secondary to intermittent dizziness. Most recent fall 4 days ago. Dizziness likely contributing to dizziness CT head: No acute intracranial abnormality CT C-spine. No acute fracture Fall precautions PT/OT as able (6) Hypertension: Plan: Continue amlodipine, losartan, metoprolol succinate Hold indapamide while on IV lasix (7) CVA (cerebral vascular accident): Plan: Continue aspirin, atorvastatin Peripheral artery disease Continue aspirin, Lipitor (8) Type 2 diabetes mellitus: Plan: A1c: 6.6 on 02/03/2022 Hold metformin NovoLog sliding scale per protocol Monitor BGs SALVADOR Chronic oxygen dependency at bedtime Continue CPAP with 3 L of supplemental oxygen at bedtime Morbid obesity BMI 46 (9) History of colon cancer: Plan: S/p bowel resection DVT PX: Warfarin Code Status Full Code Admission and Anticipated Discharge Date Admission Date: April 25, 2022 Subjective Patient is seen and examined at bedside Dyspnea better today Denies any chest pain, shortness of breath, dizziness, nausea, abdominal pain, palpitations Offers no other complaints On IV diuretics Review of Systems Review of Systems: All systems reviewed & are unremarkable except as noted in Subjective Physical Exam Physical Exam: Physical Exam: Vitals signs as noted above General Appearance:Morbidly Obese, no apparent distress Head: normocephalic, Atraumatic Eyes: normal inspection, EOMI Neck: supple, Trachea midline Respiratory/Chest: Normal breath sounds, minimal crackles at bases, No accessory muscle use Cardiovascular: irregularly irregular, No murmur Abdomen/GI:Soft, Non tender, Bowel sounds present Extremities/Musculoskeletal:normal inspection, chronic venous stasis changes, 2+ lower extremity edema Neurologic/Psych:AAOX3, grossly no focal neurological deficits Skin: normal color, warm Results & Data Results & Data ([facility]) Vital Signs (Past 12 Hours) Vital Signs Temp Pulse Pulse Resp BP Pulse Ox O2 Del Method 04/26/22 11:41 36.5 C 93 H 19 143/91 H 94 Nasal Cannula 04/26/22 07:30 102 H 04/26/22 07:30 Nasal Cannula 04/26/22 08:06 36.5 C 83 20 137/102 H 95 CPAP 04/26/22 04:40 95 H 25 H 95 04/26/22 04:37 36.8 C 96 H 20 140/93 91 Nasal Cannula O2 Flow Rate 04/26/22 11:41 4.0 04/26/22 07:30 04/26/22 07:30 4 04/26/22 08:06 04/26/22 04:40 3 04/26/22 04:37 4 Laboratory Results Short CBC 04/25/22 04/26/22 Range/Units 17:15 06:40 WBC 10.65 9.17 (4.8-10.8) K/ul Hgb 11.1 L 11.0 L (12.0-16.0) g/dl Hct 34.1 33.5 L (34.1-44.9) % Plt Count 425 H 373 (130-400) K/uL BMP 04/25/22 04/26/22 17:15 06:40 Sodium 136 137 Potassium 4.0 3.6 Chloride 102 100 Carbon Dioxide 23 27 BUN 23 23 Creatinine 1.01 1.07 Glucose 153 H 127 H Calcium 9.4 9.6 Liver Function 04/25/22 04/26/22 Range/Units 17:15 06:40 Total Bilirubin 0.8 0.8 (0.2-1.0) mg/dl AST 38 39 (13-39) U/L ALT 41 41 (7-52) U/L Alkaline Phosphatase 117 H 116 H (34-104) U/L Albumin 4.0 4.0 (3.4-5.0) gm/dl
[2022-04-26] MEDS ORDERED: WARFARIN SOD 1 MG TAB PO SCH (16:00)
--- NOTE | 2022-04-26 16:37 | Electrocardiogram Report ---
Test Reason : Blood Pressure : / mmHG Vent. Rate : 095 BPM Atrial Rate : 101 BPM P-R Int : 000 ms QRS Dur : 072 ms QT Int : 356 ms P-R-T Axes : 000 037 060 degrees QTc Int : 447 ms Poor data quality, interpretation may be adversely affected Atrial fibrillation Low voltage QRS Nonspecific T wave abnormality Abnormal ECG When compared with ECG of 25-APR-2022 17:02, (unconfirmed) No significant change was found Confirmed by Akin Campbell ([id number]) on 04/26/2022 4:37:03 PM Referred By: REFERRED SELF Confirmed By:Akin Campbell
[2022-04-26] MEDS ORDERED: Nursing to Pharmacy Communication SCH (20:45)
[2022-04-26] MEDS: MIRABEGRON ER 25 MG TAB PO SCH (20:48)
[2022-04-27 06:39] LABS: Hematocrit (blood only) 33.2 % (34.1-44.9); Hemoglobin 10.7 g/dl (12.0-16.0); Mean Corpuscular Hemoglobin 26.6 pg (25.0-34.0); Mean Corpuscular Hgb Conc 32.2 g/dL (32.0-36.0); Mean Corpuscular Volume 82.6 fL (80.0-100.0); Mean Platelet Volume 9.8 fL (9.4-12.3); Platelet Count 331 K/uL (130-400); RDW Coefficient of Variation 14.7 % (11.5-14.5); RDW Standard Deviation 44.3 fL (36.4-46.3); Red Blood Count 4.02 M/uL (3.93-5.22); White Blood Count 8.04 K/ul (4.8-10.8)
[2022-04-27 06:58] LABS: BUN Creatinine Ratio 21.1 (10-20); Calcium 9.7 mg/dl (8.5-10.1); Creatinine Clr Calc Pharmacy 73.3 ml/min; Est GFR (African American) 71.8 ml/min; Magnesium 1.4 mg/dl (1.7-2.4); Potassium 3.5 mmol/L (3.5-5.1)
[2022-04-27 07:01] LABS: Prothrombin Time 20.9 Seconds (9.0-12.0)
[2022-04-27] MEDS: INSULIN ASPART PER UNIT SC SCH ×4 (07:59→20:21)
[2022-04-27] MEDS: DULoxetine HCL 60 MG CAP PO SCH (08:20)
[2022-04-27] MEDS: LOSARTAN POTASSIUM 50 MG TAB PO SCH (08:21)
[2022-04-27] MEDS: ASPIRIN 81 MG ECTAB PO SCH (08:21)
[2022-04-27] MEDS: METOPROLOL SUCC 25MG EXT REL TAB PO SCH ×2 (08:21→20:19)
[2022-04-27] MEDS: POTASSIUM CHLORIDE CRTAB 20 MEQ TABCR PO SCH ×2 (08:21→20:19)
[2022-04-27] MEDS: EZETIMIBE 10 MG TABLET PO SCH (08:21)
[2022-04-27] MEDS: ATORVASTATIN 40 MG TAB PO SCH (08:21)
[2022-04-27] MEDS: AMIODARONE 200 MG TAB PO SCH ×3 (08:21→17:24)
[2022-04-27] MEDS: FUROSEMIDE 40 MG/4 ML VIAL IV SCH (08:22)
[2022-04-27] MEDS ORDERED: POTASSIUM CHLORIDE CRTAB 20 MEQ TABCR PO ONE (08:32)
[2022-04-27] MEDS: MAGNESIUM SULFATE / D5W 1 GM/100 ML BAG IV SCH ×2 (09:33→11:25)
--- NOTE | 2022-04-27 10:20 | Cardiology Progress Note ---
Date of Service April 27, 2022 Assessment & Plan (1) Atrial fibrillation with RVR: (2) Morbid obesity with BMI of 45.0-49.9, adult: (3) CVA (cerebral vascular accident): (4) Sleep apnea: (5) Idiopathic cardiomyopathy: (6) HFrEF (heart failure with reduced ejection fraction): Plan The patient is clinically stable. I believe that she would benefit from being placed if possible back into normal sinus rhythm. She has been therapeutic on her warfarin. I will plan for an elective cardioversion in the morning. I feel it is okay to decrease her diuretics today. Continue with the current dosage of amiodarone. Admission and Anticipated Discharge Date Admission Date: April 25, 2022 Subjective The patient is sitting comfortably at the bedside. No new cardiac complaints. Review of Systems Review of Systems: Review of Systems: See HPI for pertinent positives. All other 10 point review of systems are negative. Physical Exam Physical Exam: General: no acute distress and stated age Head: normocephalic, no masses, lesions, tenderness or abnormalities Eyes: conjunctiva are pink and non-injected, sclera clear Neck: supple, no adenopathy, no bruits, normal jugular venous pulse, no hepatojugular reflux Chest: normal shape and normal respiratory effort Lungs: clear to auscultation and percussion Cardiac Exam: - regular rate & rhythm, no murmurs gallops or rubs - normal S1, normal S2 Pulses: 2(+) throughout Abdomen: abdomen soft, non-tender, no abnormal masses and no hepatosplenomegaly Musculoskeletal: no gait disturbance, no joint inflammation, no deforming arthritis Extremities: no edema and no cyanosis Neuro: grossly normal exam Results & Data ([facility]) Vital Signs (Past 12 Hours) Vital Signs Temp Pulse Pulse Pulse Resp BP Pulse Ox 04/27/22 07:43 36.7 C 96 H 18 146/91 H 92 04/27/22 02:28 37.1 C 93 H 22 114/83 95 04/26/22 22:49 36.9 C 87 20 127/78 92 04/26/22 22:47 92 H O2 Del Method 04/27/22 07:43 Room Air 04/27/22 02:28 CPAP 04/26/22 22:49 BiPAP 04/26/22 22:47 Laboratory Results Laboratory Results - last 24 hr 04/26/22 04/26/22 04/26/22 11:09 16:06 20:43 WBC RBC Hgb Hct MCV MCH MCHC RDW Std Deviation RDW Coeff of Ximena Plt Count MPV PT INR Sodium Potassium Chloride Carbon Dioxide Anion Gap BUN Creatinine Est Cr Clr Drug Dosing Est GFR ( Amer) Est GFR (Non-Af Amer) BUN/Creatinine Ratio Glucose POC Glucose 173 H 130 H 134 H Calcium Magnesium 04/27/22 04/27/22 04/27/22 06:21 06:21 06:21 WBC 8.04 RBC 4.02 Hgb 10.7 L Hct 33.2 L MCV 82.6 MCH 26.6 MCHC 32.2 RDW Std Deviation 44.3 RDW Coeff of Ximena 14.7 H Plt Count 331 MPV 9.8 PT 20.9 H INR 2.0 H Sodium 131 L Potassium 3.5 Chloride 93 L Carbon Dioxide 31 Anion Gap 7 BUN 20 Creatinine 0.95 Est Cr Clr Drug Dosing 73.3 Est GFR ( Amer) 71.8 Est GFR (Non-Af Amer) 62.0 BUN/Creatinine Ratio 21.1 H Glucose 120 H POC Glucose Calcium 9.7 Magnesium 1.4 L 04/27/22 07:13 WBC RBC Hgb Hct MCV MCH MCHC RDW Std Deviation RDW Coeff of Ximena Plt Count MPV PT INR Sodium Potassium Chloride Carbon Dioxide Anion Gap BUN Creatinine Est Cr Clr Drug Dosing Est GFR ( Amer) Est GFR (Non-Af Amer) BUN/Creatinine Ratio Glucose POC Glucose 124 H Calcium Magnesium Diagnostic Findings Echocardiogram indicates a newly discovered cardiomyopathy most likely from atrial fibrillation and tachycardia. Medications Administered Current Inpatient Medications Acetaminophen (Acetaminophen 325 Mg Tab) 650 mg PO Q4H PRN PRN Reason: Pain or Fever Stop: 05/25/22 20:50 Al Hydrox/Mg Hydrox/Simethicone (Aluminum/Magnesium Susp 30 Ml Udc) 15 ml PO Q4H PRN PRN Reason: Dyspepsia Stop: 05/25/22 20:50 Amiodarone HCl (Amiodarone 200 Mg Tab) 200 mg PO TIDM [facility] Stop: 05/26/22 11:59 Last Admin: 04/27/22 08:21 Dose: 200 mg Aspirin (Aspirin 81 Mg Ectab) 81 mg PO QAM [facility] Stop: 05/26/22 08:59 Last Admin: 04/27/22 08:21 Dose: 81 mg Atorvastatin Calcium ([facility]vastatin 40 Mg Tab) [facility] Stop: 05/26/22 08:59 Last Admin: 04/27/22 08:21 Dose: 80 mg Dextrose (Dextrose 50% 50 Ml Syringe) 25 - 50 ml IV UD PRN; Protocol PRN Reason: Hypoglycemia Protocol Stop: 05/25/22 20:50 Duloxetine HCl (Duloxetine Hcl 60 Mg Cap) 120 mg PO [facility] Stop: 05/26/22 08:59 Last Admin: 04/27/22 08:20 Dose: 120 mg Ezetimibe (Ezetimibe 10 Mg Tablet) [facility] Stop: 05/26/22 08:59 Last Admin: 04/27/22 08:21 Dose: 10 mg Furosemide (Furosemide 40 Mg/4 Ml Vial) 40 mg IV BID17 [facility] Stop: 05/26/22 08:59 Last Admin: 04/27/22 08:22 Dose: 40 mg Glucagon (Glucagon For Inj 1 Mg Vial) 1 mg SQ UD PRN; Protocol PRN Reason: Hypoglycemia Protocol Stop: 05/25/22 20:50 Glucose (Glucose 40% Gel 15 Gm Tube) 15 - 30 gm PO UD PRN; Protocol PRN Reason: Hypoglycemia Protocol Stop: 05/25/22 20:50 Glucose (Glucose 10 Tab/Tube) 4 - 8 tab PO UD PRN; Protocol PRN Reason: Hypoglycemia Treatment Stop: 05/25/22 20:50 Magnesium Sulfate/Dextrose (Magnesium Sulfate / D5w) 1 gm in 100 mls @ 50 mls/hr IV Q2H OG Stop: 04/27/22 12:59 Last Admin: 04/27/22 09:33 Dose: 50 mls/hr Indapamide (Indapamide 1.25 Mg Tab) 2.5 mg [facility] Stop: 05/26/22 08:59 Insulin Aspart (Insulin Aspart Per Unit) 0 units SC ACHS [facility] Stop: 05/25/22 20:59 Last Admin: 04/27/22 07:59 Dose: 2 units Losartan Potassium (Losartan Potassium 50 Mg Tab) 100 [facility] [place] Stop: 05/26/22 08:59 Last Admin: 04/27/22 08:21 Dose: 100 mg Magnesium Hydroxide (Magnesium Hydroxide Susp 30 Ml Udc) 30 ml PO Q12H PRN PRN Reason: Constipation Stop: 05/25/22 20:50 Metoprolol Succinate (Metoprolol Succ 25mg Ext Rel Tab) 12.5 mg PO BID [facility] Stop: 05/25/22 20:59 Last Admin: 04/27/22 08:21 Dose: 12.5 mg Metoprolol Tartrate (Metoprolol Tartrate 1 Mg/Ml Vial) 5 mg IV Q6 PRN PRN Reason: Tachycardia> 120 Stop: 05/25/22 18:18 Mirabegron (Mirabegron Er 25 Mg Tab) 25 mg PO HS [facility] Stop: 05/25/22 21:44 Last Admin: 04/26/22 20:48 Dose: 25 mg Miscellaneous (Carbohydrates For Hypoglycemia ) 15 - 30 gm PO UD PRN PRN Reason: Hypoglycemia Protocol Stop: 05/25/22 20:50 Nitroglycerin (Nitroglycerin Sl 0.4 Mg/Tab Tab) 0.4 mg SL UD PRN PRN Reason: Chest Pain Stop: 05/25/22 20:50 Ondansetron HCl (Ondansetron Inj 2 Mg/Ml 2 Ml Vial) 4 mg IV Q6H PRN PRN Reason: Nausea Stop: 05/25/22 20:50 Polyethylene Glycol (Polyethylene (Miralax) 17 Gm Pack) 17 gm PO DAILY PRN PRN Reason: Constipation Stop: 05/25/22 20:50 Potassium Chloride (Potassium Chloride Crtab 20 Meq Tabcr) 20 meq PO BID [facility] Stop: 05/26/22 10:29 Last Admin: 04/27/22 08:21 Dose: 20 meq Warfarin Sodium (Warfarin Sod 3 Mg Tab) 3 mg PO DAILY@1600 [facility] Stop: 05/27/22 15:59
--- NOTE | 2022-04-27 15:21 | Hospitalist Progress Note ---
Date of Service April 27, 2022 Assessment & Plan (1) Atrial fibrillation with RVR: Plan: Patient is a 66 yr female with H/O PAF anticoagulated on warfarin, CVA, HTN, dyslipidemia, DM II, SALVADOR, colon cancer s/p bowel resection, carotid artery occlusion, obesity, urinary incontinence presented to ER with c/o exertional SOB x 1 month, dizziness and fatigue. A. fib RVR H/O P.Afib On chronic anticoagulation with Coumadin Supratherapeutic INR TSH 4.6, free T4 Normal Continue metoprolol 12.5 mg twice a day Started on amiodarone IV Lopressor as needed Continue Coumadin for anticoagulation Monitor INR 4.3>>2.9>2.0 Replace electrolytes as needed Appreciate cardiology input Planned for cardioversion tomorrow NPO after midnight (2) SOB (shortness of breath): Plan: Acute systolic CHF exacerbation --Chest CT:Cardiomegaly with pulmonary edema, small left and moderate right pleural effusions. --ECHO: Left ventricle is grossly normal size. Left ventricle systolic function is moderately to severely reduced. EF 30 to 35%. Right ventricle systolic function is moderately reduced. Left atrium is moderately dilated. Right atrium is mild to moderately dilated. Aortic valve stenosis moderate, without significant aortic valvular stenosis. Mild aortic regurgitation. Moderate mitral and tricuspid regurgitation present. --Received IV Lasix 40mg BID Monitor daily weight, I/Os, fluid restriction Oxygen support as needed Monitor renal function/electrolytes Cardiology on board IV Lasix transitioned to PO 40mg BID Chronic rib fractures CT:Healing subacute nondisplaced fracture of the anterior left seventh rib. Healed chronic right-sided rib fractures are also noted without acute fracture or pneumothorax. Denies any pain (3) Elevated troponin: Plan: Mild troponin elevation Likely demand ischemia from tachycardia, CHF Echo showed no wall motion abnormality (4) Hypomagnesemia: Plan: Hypomagnesemia Replete electrolytes as needed (5) Fall: Plan: H/O Recurrent falls secondary to intermittent dizziness. Most recent fall 4 days ago. Dizziness likely contributing to dizziness CT head: No acute intracranial abnormality CT C-spine. No acute fracture Fall precautions PT/OT as able (6) Hypertension: Plan: Continue losartan, metoprolol succinate Amlodipine held due to Orthostatic hypotension Hold indapamide while on IV lasix Plan to repeat Orthostatics as able (7) CVA (cerebral vascular accident): Plan: Continue aspirin, atorvastatin Peripheral artery disease Continue aspirin, Lipitor (8) Type 2 diabetes mellitus: Plan: A1c: 6.6 on 02/03/2022 Hold metformin NovoLog sliding scale per protocol Monitor BGs SALVADOR Chronic oxygen dependency at bedtime Continue CPAP with 3 L of supplemental oxygen at bedtime Morbid obesity BMI 46 (9) History of colon cancer: Plan: S/p bowel resection DVT PX: Warfarin Code Status Full Code Admission and Anticipated Discharge Date Admission Date: April 25, 2022 Subjective Patient is seen and examined at bedside States feeling better today Dyspnea improved Also states neck swelling slowly improving as well Plan for cardioversion tomorrow Denies any chest pain, dizziness, nausea, abdominal pain, palpitations Review of Systems Review of Systems: All systems reviewed & are unremarkable except as noted in Subjective Physical Exam Physical Exam: Physical Exam: Vitals signs as noted above General Appearance:Morbidly Obese, no apparent distress Head: normocephalic, Atraumatic Eyes: normal inspection, EOMI Neck: supple, Trachea midline Respiratory/Chest: Normal breath sounds, CTA, No accessory muscle use Cardiovascular: irregularly irregular, No murmur Abdomen/GI:Soft, Non tender, Bowel sounds present Extremities/Musculoskeletal:normal inspection, chronic venous stasis changes, 2+ lower extremity edema Neurologic/Psych:AAOX3, grossly no focal neurological deficits Skin: normal color, warm Results & Data Results & Data ([facility]) Vital Signs (Past 12 Hours) Vital Signs Temp Pulse Pulse Pulse Resp BP Pulse Ox 04/27/22 12:18 36.6 C 91 H 18 142/109 H 95 04/27/22 08:00 91 H 04/27/22 08:00 04/27/22 07:43 36.7 C 96 H 18 146/91 H 92 O2 Del Method O2 Flow Rate 04/27/22 12:18 Nasal Cannula 4 04/27/22 08:00 04/27/22 08:00 Nasal Cannula 4 04/27/22 07:43 Room Air Laboratory Results Short CBC 04/27/22 Range/Units 06:21 WBC 8.04 (4.8-10.8) K/ul Hgb 10.7 L (12.0-16.0) g/dl Hct 33.2 L (34.1-44.9) % Plt Count 331 (130-400) K/uL BMP 04/27/22 06:21 Sodium 131 L Potassium 3.5 Chloride 93 L Carbon Dioxide 31 BUN 20 Creatinine 0.95 Glucose 120 H Calcium 9.7
[2022-04-27] MEDS ORDERED: WARFARIN SOD 3 MG TAB PO SCH (16:00)
[2022-04-27] MEDS: FUROSEMIDE 40 MG TAB PO SCH (17:24)
[2022-04-27 17:44] LABS: Anion Gap 10.5 (3-11)
[2022-04-27] MEDS: MIRABEGRON ER 25 MG TAB PO SCH (20:19)
--- NOTE | 2022-04-28 05:51 | Electrocardiogram Report ---
Test Reason : Blood Pressure : / mmHG Vent. Rate : 093 BPM Atrial Rate : 129 BPM P-R Int : 000 ms QRS Dur : 082 ms QT Int : 386 ms P-R-T Axes : 000 024 072 degrees QTc Int : 479 ms Atrial fibrillation Nonspecific T wave abnormality Abnormal ECG When compared with ECG of 26-APR-2022 05:01, No significant change was found Confirmed by Sang Elizondo ([id number]) on 04/28/2022 5:51:27 AM Referred By: REFERRED SELF Confirmed By:Sang Elizondo
[2022-04-28] MEDS: INSULIN ASPART PER UNIT SC SCH ×4 (08:01→20:30)
[2022-04-28 08:08] LABS: Hematocrit (blood only) 33.1 % (34.1-44.9); Hemoglobin 10.9 g/dl (12.0-16.0); Mean Corpuscular Hgb Conc 32.9 g/dL (32.0-36.0); Mean Corpuscular Volume 82.1 fL (80.0-100.0); Mean Platelet Volume 9.9 fL (9.4-12.3); Platelet Count 387 K/uL (130-400); RDW Coefficient of Variation 14.6 % (11.5-14.5); RDW Standard Deviation 43.9 fL (36.4-46.3); Red Blood Count 4.03 M/uL (3.93-5.22); White Blood Count 8.06 K/ul (4.8-10.8)
[2022-04-28] MEDS: METOPROLOL SUCC 25MG EXT REL TAB PO SCH ×2 (08:11→19:58)
[2022-04-28] MEDS: POTASSIUM CHLORIDE CRTAB 20 MEQ TABCR PO SCH ×2 (08:11→19:58)
[2022-04-28] MEDS: EZETIMIBE 10 MG TABLET PO SCH (08:11)
[2022-04-28] MEDS: ATORVASTATIN 40 MG TAB PO SCH (08:11)
[2022-04-28] MEDS: LOSARTAN POTASSIUM 50 MG TAB PO SCH (08:12)
[2022-04-28] MEDS: DULoxetine HCL 60 MG CAP PO SCH (08:12)
[2022-04-28] MEDS: AMIODARONE 200 MG TAB PO SCH ×3 (08:12→17:28)
[2022-04-28] MEDS: ASPIRIN 81 MG ECTAB PO SCH (08:12)
[2022-04-28 08:19] LABS: INR 1.6 (0.9-1.1); Prothrombin Time 16.2 Seconds (9.0-12.0)
[2022-04-28 08:31] LABS: BUN Creatinine Ratio 21.6 (10-20); Calcium 9.8 mg/dl (8.5-10.1); Creatinine Clr Calc Pharmacy 62.7 ml/min; Est GFR (African American) 59.5 ml/min; Est GFR (Non-African American) 51.3 ml/min; Magnesium 1.4 mg/dl (1.7-2.4); Potassium 3.7 mmol/L (3.5-5.1)
--- NOTE | 2022-04-28 08:40 | Anesthesiology Consultation ---
Date of Service April 28, 2022 Assessment & Plan (1) Encounter for pre-operative examination: Chart Review Chart Review: Acceptable Risk for Surgery (Will check with cardiology re INR 1.6 today) History Height/Weight Height: 5 ft 4 in Weight: 119.9 kg Allergies Allergy/AdvReac Type Severity Reaction Status Date / Time bee venom protein (honey bee) Allergy Intermediate SWELLING - Verified 04/25/22 20:22 LOCALIZED AT [facility] lisinopril AdvReac Mild COUGH Verified 04/25/22 20:22 Medications Home Medications Medication Instructions Recorded Confirmed Last Taken atorvastatin 80 mg tablet 80 mg PO QAM 03/07/19 04/25/22 01/02/22 07:30 ezetimibe 10 mg tablet 10 mg PO QAM 03/07/19 04/25/22 01/03/22 08:30 metformin 500 mg tablet 1,000 mg PO BIDM 03/07/19 04/25/22 01/02/22 18:00 amlodipine 5 mg tablet 2.5 mg PO QAM 04/04/21 04/25/22 01/03/22 08:30 metoprolol succinate 25 mg 12.5 mg PO BID 11/20/21 04/25/22 04/25/22 tablet,extended release 24 hr aspirin 81 mg tablet,delayed 81 mg PO QAM 04/25/22 04/25/22 Unknown release duloxetine 60 mg capsule,delayed 120 mg PO QAM 04/25/22 04/25/22 Unknown release indapamide 2.5 mg tablet 2.5 mg PO QAM 04/25/22 04/25/22 Unknown loratadine 10 mg tablet (Claritin) 10 mg PO DAILY PRN ALLERGIES 04/25/22 04/25/22 Unknown losartan 100 mg tablet 100 mg PO QAM 04/25/22 04/25/22 Unknown mirabegron 50 mg tablet,extended 50 mg PO QAM 04/25/22 04/25/22 Unknown release 24 hr (Myrbetriq) warfarin 5 mg tablet 5 mg PO QPM 04/25/22 04/25/22 04/24/22 19:30 Active Medications Generic Name Dose Route Start Last Admin Trade Name Freq PRN Reason Stop Dose Admin Amiodarone HCl 200 mg 04/26/22 12:00 04/28/22 08:12 Amiodarone 200 Mg Tab PO 05/26/22 11:59 200 mg TIDM OG Administration Aspirin 81 mg 04/26/22 09:00 04/28/22 08:12 Aspirin 81 Mg Ectab PO 05/26/22 08:59 81 mg QAM OG Administration Atorvastatin Calcium 80 mg 04/26/22 09:00 04/28/22 08:11 Atorvastatin 40 Mg Tab PO 05/26/22 08:59 80 mg QAM OG Administration Duloxetine HCl 120 mg 04/26/22 09:00 04/28/22 08:12 Duloxetine Hcl 60 Mg Cap PO 05/26/22 08:59 120 mg QAM OG Administration Ezetimibe 10 mg 04/26/22 09:00 04/28/22 08:11 Ezetimibe 10 Mg Tablet PO 05/26/22 08:59 10 mg QAM OG Administration Furosemide 40 mg 04/27/22 17:00 04/27/22 17:24 Furosemide 40 Mg Tab PO 05/27/22 16:59 40 mg BID17 OG Administration Insulin Aspart 0 units 04/25/22 21:00 04/28/22 08:01 Insulin Aspart Per Unit SC 05/25/22 20:59 Not Given ACHS OG Losartan Potassium 100 mg 04/26/22 09:00 04/28/22 08:12 Losartan Potassium 50 Mg Tab PO 05/26/22 08:59 100 mg QAM OG Administration Metoprolol Succinate 12.5 mg 04/25/22 21:00 04/28/22 08:11 Metoprolol Succ 25mg Ext Rel Tab PO 05/25/22 20:59 12.5 mg BID OG Administration Mirabegron 25 mg 04/25/22 21:45 04/27/22 20:19 Mirabegron Er 25 Mg Tab PO 05/25/22 21:44 25 mg HS OG Administration Potassium Chloride 20 meq 04/26/22 10:30 04/28/22 08:11 Potassium Chloride Crtab 20 Meq Tabcr PO 05/26/22 10:29 20 meq BID OG Administration Past Medical History Medical History (Updated 04/28/22 @ 08:38 by Mode Solis MD) Angioleiomyoma CHF (congestive heart failure) EF 30-35% CVA (cerebral vascular accident) DECEMBER 2016 - L SIDED WEAKNESS/NUMBNESS, LACK OF COORDINATION Diabetes mellitus, type 2 NIDDM History of colon cancer S/p colon resection (2017) - no chemo/radiation History of skin cancer Hyperlipidemia Hypertension Internal carotid artery stenosis 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), patent left ICA Follows with vascular surgery- currently under surveillance- due for repeat imaging in 2023 Morbid obesity with BMI of 45.0-49.9, adult On anticoagulant therapy Paroxysmal atrial fibrillation On Coumadin Sleep apnea CPAP Past Family History Family History Unknown Hypertension Coronary heart disease Past Surgical History Surgical History History of anesthesia reaction 12/2016 - COLECTOMY - [facility] - STROKE LIKE SYMPTOMS UPON COMING OUT OF ANESTHESIA - DX CVA FOLLOWING DAY History of colectomy History of colonoscopy with polypectomy History of Mohs micrographic surgery for skin cancer Hx of cardiac catheterization d/t abnormal stress test 11/2021 - false positive - no stents placed - follows Dr. Diggs Hx of coronary angioplasty Social History Smoking Status: Never smoker Do You Dip or Chew Tobacco: No Hx Alcohol Use: Yes Alcohol type: hard liquor alcohol intake frequency: 0-2 drinks per day Hx Substance Use: No substance use type: does not use Physical Exam Vital Signs Last Vital Signs Temp 36.8 C 04/28/22 07:40 Pulse 83 04/28/22 07:40 Resp 20 04/28/22 07:40 BP 122/88 04/28/22 07:40 Pulse Ox 95 04/28/22 07:40 O2 Del Method 04/28/22 07:40 O2 Flow Rate 3 04/27/22 19:20 Testing Laboratory Results 04/28/22 07:24 04/28/22 07:24 PT 16.2 Seconds (9.0-12.0) H 04/28/22 07:24 INR 1.6 (0.9-1.1) H 04/28/22 07:24 APTT 38.9 Seconds (21.0-31.0) H 04/25/22 17:15 Hemoglobin A1c 7.1 % (4.5-5.6) H 04/26/22 06:40 04/28/22 07:21 POC Glucose 143 H
[2022-04-28] MEDS: MAGNESIUM SULFATE / D5W 1 GM/100 ML BAG IV SCH ×2 (09:09→11:49)
[2022-04-28] MEDS ORDERED: Heparin IV Adult Wt-Based Standard *NO* Bolus Protocol IV SCH (10:19)
[2022-04-28] MEDS ORDERED: PROPOFOL IV EMULSION 10 MG/ML 20 ML VIAL IV ONE (10:21)
[2022-04-28] MEDS ORDERED: LIDOCAINE 2% MPF LOCAL 5 ML VIAL INFIL ONE (10:21)
--- NOTE | 2022-04-28 10:26 | Cardioversion ---
Date of Service April 28, 2022 Electrical Cardioversion Rpt Electrical Cardioversion Report After informed consent was obtained. Sedation was given by anesthesia. The patient then received 300 J of biphasic energy converting her to normal sinus rhythm. She was recovered in the holding area of the [facility]. She was then returned to her room in stable condition.
--- NOTE | 2022-04-28 10:28 | Cardiology Progress Note ---
Date of Service April 28, 2022 Assessment & Plan (1) Atrial fibrillation with RVR: (2) Morbid obesity with BMI of 45.0-49.9, adult: (3) CVA (cerebral vascular accident): (4) Sleep apnea: (5) Idiopathic cardiomyopathy: (6) HFrEF (heart failure with reduced ejection fraction): Plan The patient had been supratherapeutic on warfarin when she was admitted. Her INR this morning was 1.6. We proceeded with the cardioversion. The patient should be on heparin until her INR is above 2. The patient is on her home dose of warfarin. Otherwise she is stable and the cardioversion was successful. Admission and Anticipated Discharge Date Admission Date: April 25, 2022 Subjective The patient underwent a successful cardioversion this morning to normal sinus rhythm. Review of Systems Review of Systems: Review of Systems: See HPI for pertinent positives. All other 10 point review of systems are negative. Physical Exam Physical Exam: General: no acute distress and stated age Head: normocephalic, no masses, lesions, tenderness or abnormalities Eyes: conjunctiva are pink and non-injected, sclera clear Neck: supple, no adenopathy, no bruits, normal jugular venous pulse, no hepatojugular reflux Chest: normal shape and normal respiratory effort Lungs: clear to auscultation and percussion Cardiac Exam: - regular rate & rhythm, no murmurs gallops or rubs - normal S1, normal S2 Pulses: 2(+) throughout Abdomen: abdomen soft, non-tender, no abnormal masses and no hepatosplenomegaly Musculoskeletal: no gait disturbance, no joint inflammation, no deforming ar thritis Extremities: no edema and no cyanosis Neuro: grossly normal exam Results & Data ([facility]) Vital Signs (Past 12 Hours) Vital Signs Temp Pulse Pulse Resp BP Pulse Ox O2 Del Method 04/28/22 10:15 72 15 125/74 93 Room Air 04/28/22 08:00 Room Air 04/28/22 07:40 36.8 C 83 20 122/88 95 Room Air 04/28/22 03:31 36.8 C 80 18 137/82 96 Nasal CPAP 04/27/22 23:17 91 H 04/27/22 23:14 36.7 C 82 18 129/92 95 Nasal CPAP Laboratory Results Laboratory Results - last 24 hr 04/26/22 04/27/22 04/27/22 06:40 06:21 11:06 WBC RBC Hgb Hct MCV MCH MCHC RDW Std Deviation RDW Coeff of Ximena Plt Count MPV PT INR Sodium 139 Potassium Chloride Carbon Dioxide Anion Gap 10.5 BUN Creatinine Est Cr Clr Drug Dosing Est GFR ( Amer) Est GFR (Non-Af Amer) BUN/Creatinine Ratio Glucose POC Glucose 150 H Calcium Magnesium Hepatitis C Ab (EIA) NON-REACTIVE Hep C Ab Signal/Cutoff 0.07 04/27/22 04/27/22 04/28/22 16:07 20:09 07:21 WBC RBC Hgb Hct MCV MCH MCHC RDW Std Deviation RDW Coeff of Ximena Plt Count MPV PT INR Sodium Potassium Chloride Carbon Dioxide Anion Gap BUN Creatinine Est Cr Clr Drug Dosing Est GFR ( Amer) Est GFR (Non-Af Amer) BUN/Creatinine Ratio Glucose POC Glucose 125 H 137 H 143 H Calcium Magnesium Hepatitis C Ab (EIA) Hep C Ab Signal/Cutoff 04/28/22 04/28/22 04/28/22 07:24 07:24 07:24 WBC 8.06 RBC 4.03 Hgb 10.9 L Hct 33.1 L MCV 82.1 MCH 27.0 MCHC 32.9 RDW Std Deviation 43.9 RDW Coeff of Ximena 14.6 H Plt Count 387 MPV 9.9 PT 16.2 H INR 1.6 H Sodium 138 Potassium 3.7 Chloride 95 L Carbon Dioxide 31 Anion Gap 12 H BUN 24 H Creatinine 1.11 Est Cr Clr Drug Dosing 62.7 Est GFR ( Amer) 59.5 Est GFR (Non-Af Amer) 51.3 BUN/Creatinine Ratio 21.6 H Glucose 140 H POC Glucose Calcium 9.8 Magnesium 1.4 L Hepatitis C Ab (EIA) Hep C Ab Signal/Cutoff Medications Administered Current Inpatient Medications Acetaminophen (Acetaminophen 325 Mg Tab) 650 mg PO Q4H PRN PRN Reason: Pain or Fever Stop: 05/25/22 20:50 Al Hydrox/Mg Hydrox/Simethicone (Aluminum/Magnesium Susp 30 Ml Udc) 15 ml PO Q4H PRN PRN Reason: Dyspepsia Stop: 05/25/22 20:50 Amiodarone HCl (Amiodarone 200 Mg Tab) 200 mg PO TIDM OG Stop: 05/26/22 11:59 Last Admin: 04/28/22 08:12 Dose: 200 mg Aspirin (Aspirin 81 Mg Ectab) 81 mg PO [facility] Stop: 05/26/22 08:59 Last Admin: 04/28/22 08:12 Dose: 81 mg Atorvastatin Calcium (Atorvastatin 40 Mg Tab) [facility] [place] Stop: 05/26/22 08:59 Last Admin: 04/28/22 08:11 Dose: 80 mg Dextrose (Dextrose 50% 50 Ml Syringe) 25 - 50 ml IV UD PRN; Protocol PRN Reason: Hypoglycemia Protocol Stop: 05/25/22 20:50 Duloxetine HCl (Duloxetine Hcl 60 Mg Cap) 120 mg PO [facility] Stop: 05/26/22 08:59 Last Admin: 04/28/22 08:12 Dose: 120 mg Ezetimibe (Ezetimibe 10 Mg Tablet) 10 mg PO [facility] Stop: 05/26/22 08:59 Last Admin: 04/28/22 08:11 Dose: 10 mg Furosemide (Furosemide 40 Mg Tab) 40 mg PO [id number] [facility] Stop: 05/27/22 16:59 Last Admin: 04/27/22 17:24 Dose: 40 mg Glucagon (Glucagon For Inj 1 Mg Vial) 1 mg SQ UD PRN; Protocol PRN Reason: Hypoglycemia Protocol Stop: 05/25/22 20:50 Glucose (Glucose 40% Gel 15 Gm Tube) 15 - 30 gm PO UD PRN; Protocol PRN Reason: Hypoglycemia Protocol Stop: 05/25/22 20:50 Glucose (Glucose 10 Tab/Tube) 4 - 8 tab PO UD PRN; Protocol PRN Reason: Hypoglycemia Treatment Stop: 05/25/22 20:50 Heparin Sodium/Dextrose (Heparin Iv Adult Wt-Based Standard *No* Bolus Protocol) 1 each IV ONE ONE; Protocol Stop: 04/28/22 10:20 Magnesium Sulfate/Dextrose (Magnesium Sulfate / D5w) 1 gm in 100 mls @ 50 mls/hr IV Q2H [facility] Stop: 04/28/22 12:44 Last Admin: 04/28/22 09:09 Dose: 50 mls/hr Heparin Sodium/Dextrose (Heparin Sodium/Dextrose) 25,000 units in 500 mls @ 0.02 mls/hr IV .Q24H OG; Protocol Stop: 05/28/22 10:44 Insulin Aspart (Insulin Aspart Per Unit) 0 units SC ACHS [facility] Stop: 05/25/22 20:59 Last Admin: 04/28/22 08:01 Dose: Not Given Losartan Potassium (Losartan Potassium 50 Mg Tab) 100 mg PO QAM [facility] Stop: 05/26/22 08:59 Last Admin: 04/28/22 08:12 Dose: 100 mg Magnesium Hydroxide (Magnesium Hydroxide Susp 30 Ml Udc) 30 ml PO Q12H PRN PRN Reason: Constipation Stop: 05/25/22 20:50 Metoprolol Succinate (Metoprolol Succ 25mg Ext Rel Tab) 12.5 mg PO BID [facility] Stop: 05/25/22 20:59 Last Admin: 04/28/22 08:11 Dose: 12.5 mg Metoprolol Tartrate (Metoprolol Tartrate 1 Mg/Ml Vial) 5 mg IV Q6 PRN PRN Reason: Tachycardia> 120 Stop: 05/25/22 18:18 Mirabegron (Mirabegron Er 25 Mg Tab) 25 mg PO HS [facility] Stop: 05/25/22 21:44 Last Admin: 04/27/22 20:19 Dose: 25 mg Miscellaneous (Carbohydrates For Hypoglycemia ) 15 - 30 gm PO UD PRN PRN Reason: Hypoglycemia Protocol Stop: 05/25/22 20:50 Nitroglycerin (Nitroglycerin Sl 0.4 Mg/Tab Tab) 0.4 mg SL UD PRN PRN Reason: Chest Pain Stop: 05/25/22 20:50 Ondansetron HCl (Ondansetron Inj 2 Mg/Ml 2 Ml Vial) 4 mg IV Q6H PRN PRN Reason: Nausea Stop: 05/25/22 20:50 Polyethylene Glycol (Polyethylene (Miralax) 17 Gm Pack) 17 gm PO DAILY PRN PRN Reason: Constipation Stop: 05/25/22 20:50 Potassium Chloride (Potassium Chloride Crtab 20 Meq Tabcr) 20 meq PO BID [facility] Stop: 05/26/22 10:29 Last Admin: 04/28/22 08:11 Dose: 20 meq Warfarin Sodium (Warfarin Sod 5 Mg Tab) 5 mg PO DAILY@1600 [facility] Stop: 05/28/22 15:59
[2022-04-28] MEDS: FUROSEMIDE 40 MG TAB PO SCH ×2 (11:25→17:29)
[2022-04-28] MEDS: HEPARIN SODIUM/DEXTROSE 25,000 UNITS/500 ML BAG IV SCH (11:49)
--- NOTE | 2022-04-28 15:35 | Electrocardiogram Report ---
Test Reason : Blood Pressure : / mmHG Vent. Rate : 086 BPM Atrial Rate : 110 BPM P-R Int : 000 ms QRS Dur : 084 ms QT Int : 418 ms P-R-T Axes : 000 004 071 degrees QTc Int : 500 ms Atrial fibrillation with a competing junctional pacemaker with premature ventricular or aberrantly co nducted complexes Low voltage QRS Prolonged QT Abnormal ECG When compared with ECG of 27-APR-2022 09:48, No significant change was found Confirmed by Richmond Garcias ([id number]) on 04/28/2022 3:35:08 PM Referred By: REFERRED SELF Confirmed By:Richmond Garcias
--- NOTE | 2022-04-28 15:51 | Electrocardiogram Report ---
Test Reason : Blood Pressure : / mmHG Vent. Rate : 071 BPM Atrial Rate : 071 BPM P-R Int : 222 ms QRS Dur : 088 ms QT Int : 454 ms P-R-T Axes : 079 000 065 degrees QTc Int : 493 ms Sinus rhythm with 1st degree A-V block with Premature atrial complexes Low voltage QRS Prolonged QT Abnormal ECG When compared with ECG of 28-APR-2022 05:02, (unconfirmed) Sinus rhythm has replaced Atrial fibrillation Confirmed by Richmond Garcias ([id number]) on 04/28/2022 3:50:29 PM Referred By: REFERRED SELF Confirmed By:Richmond Garcias
[2022-04-28] MEDS ORDERED: WARFARIN SOD 5 MG TAB PO SCH (16:00)
--- NOTE | 2022-04-28 16:57 | Hospitalist Progress Note ---
Date of Service April 28, 2022 Assessment & Plan (1) Atrial fibrillation with RVR: Plan: Patient is a 66 yr female with H/O PAF anticoagulated on warfarin, CVA, HTN, dyslipidemia, DM II, SALVADOR, colon cancer s/p bowel resection, carotid artery occlusion, obesity, urinary incontinence presented to ER with c/o exertional SOB x 1 month, dizziness and fatigue. A. fib RVR H/O P.Afib S/P Successful Cardioversion on 04/28/22 On chronic anticoagulation with Coumadin Supratherapeutic INR-on admission TSH 4.6, free T4 Normal Continue metoprolol 12.5 mg twice a day Started on amiodarone IV Lopressor as needed Continue Coumadin for anticoagulation Monitor INR 4.3>>2.9>2.0>>1.6 Replace electrolytes as needed Appreciate cardiology input Increase Coumadin to 5 mg daily IV heparin while INR is subtherapeutic Monitor INR (2) SOB (shortness of breath): Plan: Acute systolic CHF exacerbation --Chest CT:Cardiomegaly with pulmonary edema, small left and moderate right pleural effusions. --ECHO: Left ventricle is grossly normal size. Left ventricle systolic function is moderately to severely reduced. EF 30 to 35%. Right ventricle systolic function is moderately reduced. Left atrium is moderately dilated. Right atrium is mild to moderately dilated. Aortic valve stenosis moderate, without significant aortic valvular stenosis. Mild aortic regurgitation. Moderate mitral and tricuspid regurgitation present. --Received IV Lasix 40mg BID Monitor daily weight, I/Os, fluid restriction Oxygen support as needed Monitor renal function/electrolytes Cardiology on board IV Lasix transitioned to PO 40mg BID Chronic rib fractures CT:Healing subacute nondisplaced fracture of the anterior left seventh rib. Healed chronic right-sided rib fractures are also noted without acute fracture or pneumothorax. Denies any pain (3) Elevated troponin: Plan: Mild troponin elevation Likely demand ischemia from tachycardia, CHF Echo showed no wall motion abnormality (4) Hypomagnesemia: Plan: Hypomagnesemia Replete electrolytes as needed (5) Fall: Plan: H/O Recurrent falls secondary to intermittent dizziness. Most recent fall 4 days ago. Dizziness likely contributing to dizziness CT head: No acute intracranial abnormality CT C-spine. No acute fracture Fall precautions PT/OT as able (6) Hypertension: Plan: Continue losartan, metoprolol succinate Amlodipine held due to Orthostatic hypotension Hold indapamide while on IV lasix Plan to repeat Orthostatics as able (7) CVA (cerebral vascular accident): Plan: Continue aspirin, atorvastatin Peripheral artery disease Continue aspirin, Lipitor (8) Type 2 diabetes mellitus: Plan: A1c: 6.6 on 02/03/2022 Hold metformin NovoLog sliding scale per protocol Monitor BGs SALVADOR Chronic oxygen dependency at bedtime Continue CPAP with 3 L of supplemental oxygen at bedtime Morbid obesity BMI 46 (9) History of colon cancer: Plan: S/p bowel resection DVT PX: Warfarin IV Heparin Code Status Full Code Admission and Anticipated Discharge Date Admission Date: April 25, 2022 Subjective Patient is seen and examined at bedside Patient had successful cardioversion earlier today Feels well Offers no complaints INR subtherapeutic Denies any chest pain, dizziness, nausea, abdominal pain, palpitations Review of Systems Review of Systems: All systems reviewed & are unremarkable except as noted in Subjective Physical Exam Physical Exam: Physical Exam: Vitals signs as noted above General Appearance:Morbidly Obese, no apparent distress Head: normocephalic, Atraumatic Eyes: normal inspection, EOMI Neck: supple, Trachea midline Respiratory/Chest: Normal breath sounds, CTA, No accessory muscle use Cardiovascular: S1, S2, No murmur Abdomen/GI:Soft, Non tender, Bowel sounds present Extremities/Musculoskeletal:normal inspection, chronic venous stasis changes, 2+ lower extremity edema Neurologic/Psych:AAOX3, grossly no focal neurological deficits Skin: normal color, warm Results & Data Results & Data ([facility]) Vital Signs (Past 12 Hours) Vital Signs Temp Pulse Pulse Resp BP Pulse Ox O2 Del Method 04/28/22 16:00 71 04/28/22 15:26 36.9 C 67 18 163/87 H 96 Room Air 04/28/22 11:26 74 24 133/77 94 Room Air 04/28/22 10:37 75 15 103/77 93 Room Air 04/28/22 10:30 73 15 122/73 92 Room Air 04/28/22 10:15 72 15 125/74 93 Room Air 04/28/22 08:00 Room Air 04/28/22 07:40 36.8 C 83 20 122/88 95 Room Air Laboratory Results Short CBC 04/28/22 Range/Units 07:24 WBC 8.06 (4.8-10.8) K/ul Hgb 10.9 L (12.0-16.0) g/dl Hct 33.1 L (34.1-44.9) % Plt Count 387 (130-400) K/uL BMP 04/27/22 04/28/22 06:21 07:24 Sodium 139 138 Potassium 3.7 Chloride 95 L Carbon Dioxide 31 BUN 24 H Creatinine 1.11 Glucose 140 H Calcium 9.8
[2022-04-28 18:54] LABS: Partial Thromboplastin Ratio 2.1
[2022-04-28 18:58] LABS: Partial Thromboplastin Time 56.4 Seconds (21.0-31.0)
[2022-04-28] MEDS: MIRABEGRON ER 25 MG TAB PO SCH (19:58)
[2022-04-29] MEDS: HEPARIN SODIUM/DEXTROSE 25,000 UNITS/500 ML BAG IV SCH (04:41)
[2022-04-29 06:10] LABS: BUN Creatinine Ratio 23.2 (10-20); Calcium 9.4 mg/dl (8.5-10.1); Creatinine Clr Calc Pharmacy 61.7 ml/min; Est GFR (African American) 58.9 ml/min; Est GFR (Non-African American) 50.8 ml/min; Magnesium 1.5 mg/dl (1.7-2.4); Potassium 3.6 mmol/L (3.5-5.1)
[2022-04-29 07:06] LABS: INR 1.5 (0.9-1.1); Partial Thromboplastin Ratio 3.4; Prothrombin Time 15.2 Seconds (9.0-12.0)
[2022-04-29] MEDS: AMIODARONE 200 MG TAB PO SCH ×2 (08:00→12:04)
[2022-04-29] MEDS ORDERED: MAGNESIUM SULFATE / D5W 1 GM/100 ML BAG IV ONE (08:13)
[2022-04-29] MEDS: INSULIN ASPART PER UNIT SC SCH ×2 (08:25→11:53)
[2022-04-29] MEDS: FUROSEMIDE 40 MG TAB PO SCH (09:47)
[2022-04-29] MEDS: ASPIRIN 81 MG ECTAB PO SCH (10:44)
[2022-04-29] MEDS: LOSARTAN POTASSIUM 50 MG TAB PO SCH (10:44)
[2022-04-29] MEDS: EZETIMIBE 10 MG TABLET PO SCH (10:44)
[2022-04-29] MEDS: DULoxetine HCL 60 MG CAP PO SCH (10:44)
[2022-04-29] MEDS: ATORVASTATIN 40 MG TAB PO SCH (10:44)
[2022-04-29] MEDS: POTASSIUM CHLORIDE CRTAB 20 MEQ TABCR PO SCH (10:45)
[2022-04-29] MEDS: METOPROLOL SUCC 25MG EXT REL TAB PO SCH (12:00)
[2022-04-29 14:56] LABS: Partial Thromboplastin Ratio 2.1
--- NOTE | 2022-04-29 15:07 | Hospitalist Progress Note ---
Date of Service April 29, 2022 Assessment & Plan (1) Atrial fibrillation with RVR: Plan: Patient is a 66 yr female with H/O PAF anticoagulated on warfarin, CVA, HTN, dyslipidemia, DM II, SALVADOR, colon cancer s/p bowel resection, carotid artery occlusion, obesity, urinary incontinence presented to ER with c/o exertional SOB x 1 month, dizziness and fatigue. A. fib RVR H/O P.Afib S/P Successful Cardioversion on 04/28/22 On chronic anticoagulation with Coumadin Supratherapeutic INR-on admission TSH 4.6, free T4 Normal Continue metoprolol 12.5 mg twice a day Continue amiodarone 200mg BID IV Lopressor as needed Continue Coumadin for anticoagulation Monitor INR 4.3>>2.9>2.0>>1.5 Replace electrolytes as needed Appreciate cardiology input Increase Coumadin to 7.5 mg today Received IV heparin Advised to follow-up with cardiology and Coumadin clinic upon discharge (2) SOB (shortness of breath): Plan: Acute systolic CHF exacerbation --Chest CT:Cardiomegaly with pulmonary edema, small left and moderate right pleural effusions. --ECHO: Left ventricle is grossly normal size. Left ventricle systolic function is moderately to severely reduced. EF 30 to 35%. Right ventricle systolic function is moderately reduced. Left atrium is moderately dilated. Right atrium is mild to moderately dilated. Aortic valve stenosis moderate, without significant aortic valvular stenosis. Mild aortic regurgitation. Moderate mitral and tricuspid regurgitation present. --Received IV Lasix 40mg BID Monitor daily weight, I/Os, fluid restriction Oxygen support as needed Monitor renal function/electrolytes Cardiology on board Indapamide discontinued IV Lasix transitioned to PO 40mg daily Chronic rib fractures CT:Healing subacute nondisplaced fracture of the anterior left seventh rib. Healed chronic right-sided rib fractures are also noted without acute fracture or pneumothorax. Denies any pain (3) Elevated troponin: Plan: Mild troponin elevation Likely demand ischemia from tachycardia, CHF Echo showed no wall motion abnormality (4) Hypomagnesemia: Plan: Hypomagnesemia Replete electrolytes as needed (5) Fall: Plan: H/O Recurrent falls secondary to intermittent dizziness. Most recent fall 4 days ago. Dizziness likely contributing to dizziness CT head: No acute intracranial abnormality CT C-spine. No acute fracture Fall precautions PT/OT (6) Hypertension: Plan: Continue losartan, metoprolol succinate Amlodipine Discontinued due to Orthostatic hypotension (7) CVA (cerebral vascular accident): Plan: Continue aspirin, atorvastatin Peripheral artery disease Continue aspirin, Lipitor (8) Type 2 diabetes mellitus: Plan: A1c: 6.6 on 02/03/2022 Hold metformin NovoLog sliding scale per protocol Monitor BGs SALVADOR Chronic oxygen dependency at bedtime Continue CPAP with 3 L of supplemental oxygen at bedtime Morbid obesity BMI 46 (9) History of colon cancer: Plan: S/p bowel resection DVT PX: Warfarin Code Status Full Code Disposition Home Admission and Anticipated Discharge Date Admission Date: April 25, 2022 Subjective Patient is seen and examined at bedside Doing well today Offers no complaints Discussed with Cardiology today Denies any chest pain, dizziness, nausea, abdominal pain, palpitations Plan to discharge home today Review of Systems Review of Systems: All systems reviewed & are unremarkable except as noted in Subjective Physical Exam Physical Exam: Physical Exam: Vitals signs as noted above General Appearance:Morbidly Obese, no apparent distress Head: normocephalic, Atraumatic Eyes: normal inspection, EOMI Neck: supple, Trachea midline Respiratory/Chest: Normal breath sounds, CTA, No accessory muscle use Cardiovascular: S1, S2, No murmur Abdomen/GI:Soft, Non tender, Bowel sounds present Extremities/Musculoskeletal:normal inspection, chronic venous stasis changes, 2+ lower extremity edema Neurologic/Psych:AAOX3, grossly no focal neurological deficits Skin: normal color, warm Results & Data Results & Data ([facility]) Vital Signs (Past 12 Hours) Vital Signs Temp Pulse Pulse Resp BP Pulse Ox O2 Del Method 04/29/22 08:00 63 04/29/22 11:15 36.6 C 65 20 107/77 96 Room Air 04/29/22 08:00 36.9 C 72 18 129/85 96 Room Air 04/29/22 03:43 36.6 C 64 18 149/90 H 96 CPAP Laboratory Results [facility] 04/29/22 05:38 Sodium 134 L Potassium 3.6 Chloride 92 L Carbon Dioxide 31 BUN 26 H Creatinine 1.12 Glucose 140 H Calcium 9.4
--- NOTE | 2022-04-29 15:38 | Discharge Summary ---
Date of Service April 29, 2022 Admission HPI Per Admitting Provider Patient is 66 y/o F with PMH PAF anticoagulated on warfarin, CVA, HTN, dyslipidemia, DM II, SALVADOR, colon cancer s/p bowel resection, carotid artery occlusion, obesity, urinary incontinence presented to ER with c/o SOB. Patient states past month with SOB with exertion. Also reports intermittent dizziness, fatigue. States she has had several falls secondary to dizziness. Most recent fall was 4 days ago and reports has ecchymosis to left face and neck from fall. Denies other injury. Patient states recently diagnosed with atrial fibrillation, however outpatient note review states patient with PAF. Do not see any recent outpatient cardiology visits in records. Patient thinks is taking metoprolol succinate 12.5mg BID. She states contacted cardiology office today with her symptoms and was referred to ER. Denies fever/chills, diaphoresis, N/V/D/C, SALDIVAR, syncope, vision changes, CP, orthopnea, cough, sore throat, choking, otalgia, rhinorrhea, abdominal pain, paresthesias, weakness, extremity weakness, extremity edema, rashes, urinary symptoms. In ER patient found to be in a-fib RVR with rate 120's. Was given dose of Lopressor 5mg IV x 2 with improvement HR to 101. Patient reports is feeling better. Admission Exam Per Admitting Provider Physical Exam Physical Exam: General: no distress, obese Head: normocephalic, atraumatic Eyes: PERRL, EOM's intact, conjunctiva non-injected, anicteric ENT: normal inspection external ears, nose, mucous membranes moist Neck: supple, trachea midline, non-tender; +ecchymosis left neck Lungs: no respiratory distress, +decreased breath sounds right base CV: irregularly irregular, no murmur, 1+ pretibial edema; chest wall +ecchymosis left chest wall Abd: protuberant, normal BS, soft, non-tender Ext: no cyanosis, no calf tenderness Neuro: A&O x 3, no focal deficits noted, normal affect Skin: warm, dry Principal Diagnosis Atrial fibrillation with RVR S/P Successful Cardioversion on 04/28/22 Acute systolic CHF exacerbation Hypomagnesemia Discharge Data Allergies Allergy/AdvReac Type Severity Reaction Status Date / Time bee venom protein (honey bee) Allergy Intermediate SWELLING - Verified 04/25/22 20:22 LOCALIZED AT [facility] lisinopril AdvReac Mild COUGH Verified 04/25/22 20:22 Consultations 04/25/22 18:19 ED Decision to Admit Stat 04/26/22 08:00 Consult Cardiology Routine 04/27/22 10: Consult Anesthesiology Routine Procedures Performed Operation Date: 04/28/22 10:00 Actual Procedures p Cardioversion - Forrest Henry, Ordered Studies Laboratory Results WBC 8.06 K/ul (4.8-10.8) 04/28/22 07:24 RBC 4.03 M/uL (3.93-5.22) 04/28/22 07:24 Hgb 10.9 g/dl (12.0-16.0) L 04/28/22 07:24 POC Hgb 12.6 g/dl (12.0-16.0) 04/25/22 17:21 Hct 33.1 % (34.1-44.9) L 04/28/22 07:24 POC Hct 37 % (37-47) 04/25/22 17:21 MCV 82.1 fL (80.0-100.0) 04/28/22 07:24 MCH 27.0 pg (25.0-34.0) 04/28/22 07:24 MCHC 32.9 g/dL (32.0-36.0) 04/28/22 07:24 RDW Std Deviation 43.9 fL (36.4-46.3) 04/28/22 07:24 RDW Coeff of Ximena 14.6 % (11.5-14.5) H 04/28/22 07:24 Plt Count 387 K/uL (130-400) 04/28/22 07:24 MPV 9.9 fL (9.4-12.3) 04/28/22 07:24 Immature Gran % (Auto) 0.4 % 04/25/22 17:15 Neut % (Auto) 62.7 % 04/25/22 17:15 Lymph % (Auto) 17.6 % 04/25/22 17:15 Kimble % (Auto) 7.9 % 04/25/22 17:15 Eos % (Auto) 10.7 % 04/25/22 17:15 Baso % (Auto) 0.7 % 04/25/22 17:15 Neut # (Auto) 6.69 K/uL (1.4-6.5) H 04/25/22 17:15 Lymph # (Auto) 1.87 K/uL (1.2-3.4) 04/25/22 17:15 Kimble # (Auto) 0.84 K/uL (0.24-0.82) H 04/25/22 17:15 Eos # (Auto) 1.14 K/uL (0-0.50) H 04/25/22 17:15 Baso # (Auto) 0.07 K/uL (0-0.2) 04/25/22 17:15 Immature Gran # (Auto) 0.04 K/uL (0.00-0.02) H 04/25/22 17:15 PT 15.2 Seconds (9.0-12.0) H 04/29/22 05:38 INR 1.5 (0.9-1.1) H 04/29/22 05:38 APTT 58.0 Seconds (21.0-31.0) H* 04/29/22 14:17 PTT Ratio 2.1 04/29/22 14:17 POC Sodium 136 mmol/L (135-144) 04/25/22 17:21 Sodium 134 mmol/L (136-145) L 04/29/22 05:38 POC Potassium 4.0 mmol/L (3.3-5.0) 04/25/22 17:21 Potassium 3.6 mmol/L (3.5-5.1) 04/29/22 05:38 POC Chloride 101 mmol/L (101-112) 04/25/22 17:21 Chloride 92 mmol/L (98-107) L 04/29/22 05:38 Carbon Dioxide 31 mmol/L (21-32) 04/29/22 05:38 POC Total CO2 22 mmol/L (24-31) L 04/25/22 17:21 Anion Gap 11 (3-11) 04/29/22 05:38 POC Anion Gap 18.0 mmol/L (16-25) 04/25/22 17:21 POC BUN 20 mg/dl (7-18) H 04/25/22 17:21 BUN 26 mg/dl (6-23) H 04/29/22 05:38 Creatinine 1.12 mg/dl (0.6-1.2) 04/29/22 05:38 POC Creatinine 1.0 mg/dl (0.6-1.3) 04/25/22 17:21 Est Cr Clr Drug Dosing 61.7 ml/min 04/29/22 05:38 Est GFR ( Amer) 58.9 ml/min 04/29/22 05:38 Est GFR (Non-Af Amer) 50.8 ml/min 04/29/22 05:38 BUN/Creatinine Ratio 23.2 (10-20) H 04/29/22 05:38 Glucose 140 mg/dl (70-99(Fasting)) H 04/29/22 05:38 POC Glucose 170 mg/dl (70-99) H 04/29/22 11:35 POC Glucose (other) 145 mg/dl (70-99) H 04/25/22 17:21 Estimat Average Glucose 157 mg/dl 04/26/22 06:40 Hemoglobin A1c 7.1 % (4.5-5.6) H 04/26/22 06:40 Calcium 9.4 mg/dl (8.5-10.1) 04/29/22 05:38 POC Ioniz Calcium Khari 1.21 mmol/l (1.12-1.32) 04/25/22 17:21 Magnesium 1.5 mg/dl (1.7-2.4) L 04/29/22 05:38 Total Bilirubin 0.8 mg/dl (0.2-1.0) 04/26/22 06:40 AST 39 U/L (13-39) 04/26/22 06:40 ALT 41 U/L (7-52) 04/26/22 06:40 Alkaline Phosphatase 116 U/L (34-104) H 04/26/22 06:40 Troponin I High Sens 29.9 pg/ml (0-14) H 04/26/22 06:40 B-Natriuretic Peptide 508 pg/ml (0-100) H 04/25/22 17:15 Total Protein 6.2 gm/dl (6.0-8.3) 04/26/22 06:40 Albumin 4.0 gm/dl (3.4-5.0) 04/26/22 06:40 Globulin 2.2 gm/dl (2.5-4.0) L 04/26/22 06:40 Albumin/Globulin Ratio 1.8 (0.9-2) 04/26/22 06:40 TSH 4.612 uIu/ml (0.300-4.500) H 04/25/22 17:17 Free T4 1.02 ng/dl (0.61-1.60) 04/25/22 17:17 SARS-CoV-2 (PCR) NEGATIVE (Negative) 04/25/22 18:17 Hepatitis C Ab (EIA) NON-REACTIVE (NON-REACTIVE) 04/26/22 06:40 Hep C Ab Signal/Cutoff 0.07 (<1.00) 04/26/22 06:[address] 04/25/22 16:54 CT head/brain wo con CLINICAL HISTORY: 66 years-old Female with Fall, blood thinners. Acute head trauma status post fall TECHNIQUE: Multiple axial CT images of the head were obtained without contrast. A dose lowering technique was utilized adhering to the principles of ALARA. COMPARISON: CT cervical spine of same day, head CT 12/31/2016 FINDINGS: No acute intracranial hemorrhage, midline shift, intracranial mass, hydrocephalus, territorial ischemia or abnormal extra-axial collection. Involutional changes with chronic vascular ischemic disease. 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 Cerebral vascular calcifications. The calvarium is intact. The paranasal sinuses, mastoid air cells, and middle ear cavities are clear. IMPRESSION: No acute intracranial abnormality or calvarial fracture. ACT 112: Negative or not required by law. The above report was generated using voice recognition software. It may contain grammatical, syntax or spelling errors. Electronically signed by: Samir Vivas M.D. 04/25/2022 6:[address] 04/25/22 17:16 CT cervical spine wo con CT DOSE: 3353.10 mGy.cm CLINICAL HISTORY: 66 years-old Female with fall. Acute head and neck injury status post fall COMPARISON: CTA neck 12/25/2016 TECHNIQUE: Multiple axial CT images of the cervical spine were obtained without contrast. A dose lowering technique was utilized adhering to the principles of ALARA. FINDINGS: Demineralized appearance of the bones with multilevel degenerative changes. No acute fracture or subluxation identified. Heterogeneity of the thyroid. No prevertebral edema identified. Layering right pleural effusion. The visualized lung apices appear clear. IMPRESSION: 1. No acute cervical spine fracture or subluxation identified. 2. Right pleural effusion. ACT 112: Negative or not required by law. The above report was generated using voice recognition software. It may contain grammatical, syntax or spelling errors. Electronically signed by: Samir Vivas M.D. 04/25/2022 6:[address] 04/25/22 17:[address] WITH CONTRAST HISTORY: Acute left-sided chest pain status post fall fall on coumadin TECHNIQUE: Multiaxial CT images of the chest were performed following the IV administration of 95 cc of Optiray. A dose lowering technique was utilized adhering to the principles of ALARA. COMPARISON: CT cervical spine of same day FINDINGS: Heterogeneous thyroid with a 1.4 cm left-sided thyroid nodule. Mildly enlarged paratracheal lymph nodes measure up to 11 mm, nonspecific. Moderate to marked cardiomegaly without pericardial effusion. Extensive coronary artery calcifications. No thoracic aortic aneurysm or dissection. There is patency of the imaged great vessels. Unremarkable pulmonary artery. No pulmonary emboli are identified. Small left with moderate right pleural effusions. Dependent right greater than left bibasilar consolidation. Intralobular septal thickening with intermixed groundglass opacities. Bronchial wall thickening with bibasilar mucous plugging. Mosaic attenuation of the lungs. 4 mm subpleural solid nodule of the right upper lobe, image 90 series 10. Liver is enlarged. No acute process of the imaged upper abdomen. Unremarkable soft tissues. Degenerative changes of the shoulders and spine. Subacute ap pearing nondisplaced fracture of the left seventh rib. There are a few healed chronic right-sided rib fractures. No acute fracture is identified. IMPRESSION: 1. Cardiomegaly with pulmonary edema, small left and moderate right pleural effusions. 2. Healing subacute nondisplaced fracture of the anterior left seventh rib. Healed chronic right-sided rib fractures are also noted without acute fracture or pneumothorax. 3. Additional findings as above. ACT 112: Negative or not required by law. Electronically signed by: Samir Vivas M.D. 04/25/2022 6:10 PM Hospital Course (1) Atrial fibrillation with RVR: Patient is a 66 yr female with H/O PAF anticoagulated on warfarin, CVA, HTN, dyslipidemia, DM II, SALVADOR, colon cancer s/p bowel resection, carotid artery occlusion, obesity, urinary incontinence presented to ER with c/o exertional SOB x 1 month, dizziness and fatigue. A. fib RVR H/O P.Afib S/P Successful Cardioversion on 04/28/22 On chronic anticoagulation with Coumadin Supratherapeutic INR-on admission TSH 4.6, free T4 Normal Continue metoprolol 12.5 mg twice a day Continue amiodarone 200mg BID IV Lopressor as needed Continue Coumadin for anticoagulation Monitor INR 4.3>>2.9>2.0>>1.5 Replace electrolytes as needed Appreciate cardiology input Increase Coumadin to 7.5 mg today Received IV heparin Advised to follow-up with cardiology and Coumadin clinic upon discharge (2) SOB (shortness of breath): Acute systolic CHF exacerbation --Chest CT:Cardiomegaly with pulmonary edema, small left and moderate right pleural effusions. --ECHO: Left ventricle is grossly normal size. Left ventricle systolic function is moderately to severely reduced. EF 30 to 35%. Right ventricle systolic function is moderately reduced. Left atrium is moderately dilated. Right atrium is mild to moderately dilated. Aortic valve stenosis moderate, without significant aortic valvular stenosis. Mild aortic regurgitation. Moderate mitral and tricuspid regurgitation present. --Received IV Lasix 40mg BID Monitor daily weight, I/Os, fluid restriction Oxygen support as needed Monitor renal function/electrolytes Cardiology on board Indapamide discontinued IV Lasix transitioned to PO 40mg daily Chronic rib fractures CT:Healing subacute nondisplaced fracture of the anterior left seventh rib. Healed chronic right-sided rib fractures are also noted without acute fracture or pneumothorax. Denies any pain (3) Elevated troponin: Mild troponin elevation Likely demand ischemia from tachycardia, CHF Echo showed no wall motion abnormality (4) Hypomagnesemia: Hypomagnesemia Replete electrolytes as needed (5) Fall: H/O Recurrent falls secondary to intermittent dizziness. Most recent fall 4 days ago. Dizziness likely contributing to dizziness CT head: No acute intracranial abnormality CT C-spine. No acute fracture Fall precautions PT/OT (6) Hypertension: Continue losartan, metoprolol succinate Amlodipine Discontinued due to Orthostatic hypotension (7) CVA (cerebral vascular accident): Continue aspirin, atorvastatin Peripheral artery disease Continue aspirin, Lipitor (8) Type 2 diabetes mellitus: A1c: 6.6 on 02/03/2022 Hold metformin NovoLog sliding scale per protocol Monitor BGs SALVADOR Chronic oxygen dependency at bedtime Continue CPAP with 3 L of supplemental oxygen at bedtime Morbid obesity BMI 46 (9) History of colon cancer: S/p bowel resection DVT PX: Warfarin Code Status Full Code Disposition Home Total Time Total Time Spent Total Time Spent (In Minutes): 47 minutes Discharge Plan Discharge Items Patient Disposition: Home - Self-Care Reason For Visit: RAPID ATRIAL FIBRILLATION Discharge Diagnosis: Atrial fibrillation with RVR S/P Successful Cardioversion on 04/28/22 Acute systolic CHF exacerbation Hypomagnesemia Activity: Per Instructions section Exercise/Sports: Gradually increase as tolerated Non-emergency contact: Primary Care Provider and Barrel Tester Call non-emergency contact if: you have any medication questions, your symptoms worsen, your pain is concerning for you and you have a fever Follow-up/Referrals: Feliberto Diggs DO [Barrel Tester] - (Date & Time 05/09/2022 3:30 PMProvider Feliberto Diggs, [facility] Shiva Rich MD [Primary Care Provider] - 05/06/22 11:00 am (Date & Time 05/06/2022 11:00 AM Provider Shiva Rich III, [facility] ) Diet: Carb Consistent or DM2 and Heart Healthy Addtl Attending Provider Instructions: Follow-up with your primary care physician Dr. Rich on 05/06/2022 11:00 AM Follow-up with your organizational development specialist Dr. Diggs on 05/09/2022 3:30 PM Follow up with Coumadin Clinic on 04/30/22 for monitoring of PT/INR and adjusting her Coumadin dose --Get Blood Test( PT/INR) tomorrow (04/30/2022) follow-up with Coumadin clinic for further instructions on Coumadin dose. --Your INR today 04/29/22 is 1.5. Take 7.5 mg Coumadin today. Seek immediate medical attention if your symptoms reoccur or worsen Please take all medications as instructed on discharge list below. Please call if you have any questions or problems. You can reach a [facility] hospitalist on duty at [facility] 24 hours a day by calling [phone] Pending Studies at Discharge: No Stand-Alone Forms: [facility], Smoking Cessation Medications and DC Order Prescriptions: New amiodarone 200 mg Tablet 200 mg PO BIDM Qty: 60 1RF furosemide 40 mg Tablet 40 mg PO DAILY Qty: 30 1RF Mag 64 64 mg Tablet,Delayed Release (Dr/Ec) 64 mg PO BID Qty: 30 0RF potassium chloride 10 mEq capsule, extended release 10 meq PO DAILY Qty: 10 0RF Continued metformin 500 mg Tablet 1,000 mg PO BIDM Rx Instructions: Take in AM & before HS atorvastatin 80 mg Tablet 80 mg PO QAM ezetimibe 10 mg Tablet 10 mg PO QAM metoprolol succinate 25 mg Tablet Extended Release 24 Hr 12.5 mg PO BID aspirin [Aspir-Low] 81 mg Tablet,Delayed Release (Dr/Ec) 81 mg PO QAM warfarin 5 mg tablet 5 mg PO QPM losartan 100 mg tablet 100 mg PO QAM loratadine [Claritin] 10 mg Tablet 10 mg PO DAILY PRN (Reason: ALLERGIES) duloxetine 60 mg capsule,delayed release(DR/EC) 120 mg PO QAM Rx Instructions: TAKE 2 TABS Myrbetriq 50 mg tablet extended release 24 hr 50 mg PO QAM Discontinued amlodipine 5 mg Tablet 2.5 mg PO QAM indapamide 2.5 mg tablet 2.5 mg PO QAM Discharge Orders: Discharge Order (Routine); Ordered 04/29/22 Ordered By: Rubin Anderson/Other Patient Handouts: Managing Type 2 Diabetes Admission Data Admit Date/Time: 04/25/22 18:45 Attending Provider: Rubin Woods Admit Provider: Qing Oneill Primary Care Provider: Shiva Rich Other Providers: Qing Oneill ; Antonio Quiroz ; Remedios Blandon ; Lorraine Aguilar ; Jesusita Felipe ; Ada Horner ; Dionna Andrews ; Mode Solis ; Nestor Brooke ; Forrest Katz ; Demond Santos ; Nevaeh Santos ; Victor Hugo Lobato ; Nohelia De La Rosa ; Nish Foster ; Adria Goldberg ; Ruperto Donald ; Malcom Mccray ; Monserrat Garber ; Brenton Bello ; Meche Xavier ; Shawna Bello ; Pineda Campo ; Zoraida Duran ; Anselmo Pathak ; Audrey Horowitz ; Inga Chen ; Ya Dao ; Antonio Obrien ; Princess Stapleton ; Marlin Jenkins ; Brianna Rhodes ; Lucero Tanner A ; Mik Tanner V ; Denny Gonsalves ; Lorraine Mcclellan ; Jimmy Grider ; Sarah Bernardo ; Mik Houston ; Karthikeyan Garber ; Dave Mcbride ; Nelda Isaac ; Pauly Macedo ; Mik Adames ; Anibal Mehta ; Shiva Mccray ; Parul Jaffe ; Ezequiel Hernandez ; Db Hernadez ; Burke Alonso ; Ezequiel Hood ; Mode Cruz Jr ; Magalis Redd ; Kristyn Wallace ; Leyla Aponte ; Antonio Darden ; Ada Casper ; Demond Grant ; Elpidio Muñoz I. ; Keesha Mendoza
[2022-04-29] MEDS ORDERED: WARFARIN SOD 7.5 MG TAB PO SCH (16:00)
[2022-04-29] MEDS ORDERED: AMIODARONE 200 MG TAB PO SCH (17:00)
[2022-04-29] MEDS ORDERED: MAGNESIUM CHLORIDE W/CALCIUM 64MG DELAYED REL TAB PO SCH (21:00)
[2022-04-30] MEDS ORDERED: FUROSEMIDE 40 MG TAB PO SCH (09:00)
== END 2022-04-29 16:10 | disposition home or self-care (01) | DRG 308 ==
LOC: ED 15:45 → SUATTDRO 18:45 → 2E 18:45

== ENCOUNTER 2023-07-14 13:06 | Inpatient (IN) ==
--- NOTE | 2023-07-14 13:26 | ED Triage Note ---
Date of Service July 14, 2023 Provider in Triage Author: Jane Wiley History of Present Illness This patient was briefly evaluated while in triage. An abbreviated physical exam was performed. This patient is a 67-year-old Female who presents to the ED for evaluation of cardiac symptoms. She states she has had shortness of breath and increased fatigue with exertion. She has also noticed some swelling in her ankles. She has had symptoms for about 3 days. She has a history of atrial fibrillation and states this feels the same. She denies any chest pain. She takes warfarin. She reports a history of sleep apnea, denies other lung disease. Physical Exam VITALS: Vitals are noted on the nurse's note and reviewed by myself. GENERAL: This is a 67-year-old female, in no acute distress, well-developed well-nourished. SKIN: The skin was without rashes. HEART: Bradycardic, regular rhythm without murmurs gallops or rubs. LUNGS: Clear to auscultation bilaterally without wheezes, rales or rhonchi. NEURO: Patient was alert and oriented to person place and time. Initial orders for labs and / or imaging were placed and patient was placed in the waiting area until a bed is available. Please see further documentation for the full ED course. MDM / Impression Impression Impression: Acute congestive heart failure, Hypoxia Impression: Acute congestive heart failure Qualifiers: Heart failure type: combined systolic and diastolic Qualified Code(s): I50.41 - Acute combined systolic (congestive) and diastolic (congestive) heart failure
--- NOTE | 2023-07-14 13:53 | Emergency Department Note ---
Impression & Plan Acute congestive heart failure, Hypoxia ED Provider Note Name: KENNA WHITMAN Age: 67 Sex: Female Arrives Via: Walk-In Informant: Patient, ED Provider: Chilo Vaughan MD Chief Complaint: Shortness of breath Impression: As per impressions above Medical Decision Making: Pleasant 67-year-old female with a history of CHF EF 30%, paroxysmal A-fib, diabetes amongst many other past medical history arrives for evaluation of worsening shortness of breath. Patient is hypoxic on room air into the 80s. She does use oxygen at night with her CPAP but does not routinely use it during the day. On examination patient is fluid overloaded. Chest x-ray is consistent with fluid overload. Laboratory workup is reassuring. In the setting of hypoxia and congestive failure will need hospitalization. She was given 40 mg IV Lasix. Hospitalist consulted for further management. Patient is not septic I do not see any clear evidence of pneumonia nor ACS at this time. COVID and flu are negative at this time as well. Supratherapeutic INR no clear indication for reversal at this time. Triage/Nursing Notes reviewed by Me Differential:Reactive airway disease, pneumonia, pneumothorax, COPD, CHF, infections, cardiac ischemia, pulmonary embolism, musculoskeletal, gastrointestinal, as well as other pathologies. Vital Signs: reviewed and remarkable for hypoxia on RA Interventions: Nasal cannula O2, Lasix 40 mg IV Labs:ED labs Reviewed by me and remarkable for mild anemia stable for patient. INR is elevated and is supratherapeutic. Mildly elevated BNP. Imaging:X ray results are stated below per my interpretation: Chest: 1 view: Moderate congestive failure EKG:Per My Interpretation: Indication Shortness of breath: Sinus mookie 52 bpm, qtc 463 with 1st av block. No Ectopy. No Ischemia. Compared to EKG 04/28/22, no significant changes. Cardiac/Tele Monitoring: Cardiac Monitoring: An Order was placed for continuous cardiac monitoring. The monitor shows a rate of 55 with a sinus mookie rhythm. Consults:Dr Reagan Cullen Hospitalist Plan: Disposition:Hospitalization. Condition: Good History of Present Illness: 67-year-old female arrives for evaluation of shortness of breath. Patient with a complex past medical history including A- fib previous fluid overload with heart failure and multiple hospitalizations throughout the last few months. Patient is on Coumadin and believes her INR has been stable. She states the last 3 to 4 days worsening shortness of breath. Associated with congestion in her chest. Mild associated cough. Denies any fevers, syncope, chest pain, back pain, abdominal pain. She does note that her ankles have been swelling more the last few days. Patient notes she is lost about 70 pounds in the last year secondary to diet control as well as she had multiple hospitalizations with knee infection and states she was not eating as much then. She does think she might of gained a few pounds last few days due to the holidays. Note she is so short of breath she cannot even walk down the [place]. She uses oxygen at night with her CPAP but does not typically use it during the day. Past Medical History:See Below Home Medications:See Below Allergies:lisinopril Vitals:Blood Pressure: 145/58, Pulse 51, RR 24, T 36.8C, O2 83% on RA Physical Exam: GENERAL: Patient is tired appearing and in mild distress. RESPIRATORY: Diffuse crackles all lung holder CARDIOVASCULAR: Mild bradycardia appreciated.No murmur appreciated. GASTROINTESTINAL: Abdomen soft, non-tender, no peritonitis. EXTREMITIES: Normal motion all extremities, no cyanosis, moderate edema lower legs edema. NEUROLOGIC: Alert and oriented. No focal neurologic deficits appreciated SKIN: No rash, no jaundice, no diaphoresis. PSYCH: Appropriate GCS: 15 ED Course: Times/Reassessments: Stable breathing more comfortably on nasal cannula O2. Agreeable to hospitalization. 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 Diggs Hx of coronary angioplasty History of anesthesia reaction 12/2016 - COLECTOMY - [facility] - STROKE LIKE SYMPTOMS UPON COMING OUT OF ANESTHESIA - DX CVA FOLLOWING DAY History of Mohs micrographic surgery for skin cancer History of colectomy History of colonoscopy with polypectomy Family History Unknown Hypertension Coronary heart disease Social History Smoking Status: Never smoker Second Hand Exposure: No; Do You Dip or Chew Tobacco: No; Hx Alcohol Use: Yes Alcohol type: hard liquor Alcohol type Comment: 2 drinks daily Hx Substance Use: No Preferred Language: Georgian Communication Ability: Effective Sliver Chopper Required: No Beliefs That Will Affect Care: None marital status: Current Living Situation: Spouse Feels Safe at Home: Yes Assistive Devices: Cane Allergies Allergies Allergy/AdvReac Type Severity Reaction Status Date / Time bee venom protein (honey bee) Allergy Intermediate SWELLING - Verified 04/25/22 20:22 LOCALIZED AT [facility] lisinopril AdvReac Mild COUGH Verified 04/25/22 20:22 Home Meds Home Medications Medication Instructions Recorded Confirmed atorvastatin 80 mg tablet 80 mg PO QPM 03/07/19 07/14/23 ezetimibe 10 mg tablet 10 mg PO QAM 03/07/19 07/14/23 metformin 500 mg tablet 1,000 mg PO BIDM 03/07/19 07/14/23 metoprolol succinate 25 mg 12.5 mg PO QAM 11/20/21 07/14/23 tablet,extended release 24 hr aspirin 81 mg tablet,delayed 81 mg PO QAM 04/25/22 07/14/23 release duloxetine 60 mg capsule,delayed 120 mg PO QAM 04/25/22 07/14/23 release losartan 100 mg tablet 100 mg PO QAM 04/25/22 07/14/23 mirabegron 50 mg tablet,extended 50 mg PO QAM 04/25/22 07/14/23 release 24 hr (Myrbetriq) warfarin 5 mg tablet 5 mg PO UD 04/25/22 07/14/23 ferrous sulfate 325 mg (65 mg 325 mg PO DAILY 07/14/23 07/14/23 iron) tablet mecobalamin (vitamin B12) 1,000 1,000 mcg PO DAILY 07/14/23 07/14/23 mcg chewable tablet (B12 Active) multivitamin 1 tab PO DAILY 07/14/23 07/14/23 solifenacin 5 mg tablet 5 mg PO QAM 07/14/23 07/14/23 Previous Rx's Medication Instructions Recorded amiodarone 200 mg tablet 200 mg PO BIDM #60 tabs 04/29/22 furosemide 40 mg tablet 40 mg PO DAILY #30 tabs 04/29/22 magnesium chloride 64 mg 64 mg PO BID #30 tabs 04/29/22 (magnesium chloride) tablet,delayed release (Mag 64) Results & Data (ED) Vital Signs Vital Signs - 24 hr 07/14/23 13:20 07/14/23 13:20 07/14/23 13:26 Temperature 35.4 C L Temperature Source Temporal Artery Scan Pulse Rate 54 L Pulse Rate [Right Finger] Pulse Rhythm Pulse Rhythm [Right Finger] Pulse Strength [Right Finger] Respiratory Rate 20 Respiratory Effort / Characteristics Short of Breath SOB on Exertion Short of Breath Respiratory Depth Respiratory Pattern Blood Pressure 145/58 H Blood Pressure [Right Arm] Blood Pressure Mean 87 Blood Pressure Mean [Right Arm] Blood Pressure Position [Right Arm] Pulse Oximetry 87 L 83 L Oxygen Delivery Method Room Air Nasal Cannula Oxygen Flow Rate 0 Sepsis Recent Fever Within 48 Hours No Sepsis New/Unexplained Change in Mental Status N/A Sepsis Action Taken by Nursing No Action Required Oxygen Flow Rate - Titration 3 Pulse Oximetry Post Tiitration 90 07/14/23 13:45 07/14/23 14:01 07/14/23 14:01 Temperature 36.8 C Temperature Source Oral Pulse Rate 51 L Pulse Rate [Right Finger] 51 L Pulse Rhythm Pulse Rhythm [Right Finger] Regular Pulse Strength [Right Finger] Normal Respiratory Rate 22 Respiratory Effort / Characteristics Non-Labored Spontaneous Respiratory Depth Normal Respiratory Pattern Regular Blood Pressure Blood Pressure [Right Arm] 150/71 H Blood Pressure Mean Blood Pressure Mean [Right Arm] 97 Blood Pressure Position [Right Arm] Semi-fowlers Pulse Oximetry 99 Oxygen Delivery Method Room Air Nasal Cannula Oxygen Flow Rate 3 Sepsis Recent Fever Within 48 Hours Sepsis New/Unexplained Change in Mental Status Sepsis Action Taken by Nursing Oxygen Flow Rate - Titration Pulse Oximetry Post Tiitration 07/14/23 14:01 07/14/23 14:59 Temperature Temperature Source Pulse Rate 51 L 60 Pulse Rate [Right Finger] Pulse Rhythm Regular Regular Pulse Rhythm [Right Finger] Pulse Strength [Right Finger] Respiratory Rate 22 20 Respiratory Effort / Characteristics Respiratory Depth Respiratory Pattern Blood Pressure Blood Pressure [Right Arm] Blood Pressure Mean Blood Pressure Mean [Right Arm] Blood Pressure Position [Right Arm] Pulse Oximetry 91 92 Oxygen Delivery Method Nasal Cannula Nasal Cannula Oxygen Flow Rate 3 4 Sepsis Recent Fever Within 48 Hours Sepsis New/Unexplained Change in Mental Status Sepsis Action Taken by Nursing Oxygen Flow Rate - Titration Pulse Oximetry Post Tiitration Laboratory Data 07/14/23 13:57 07/14/23 13:57 Lab Results 07/14/23 Range/Units 13:57 WBC 6.50 (4.8-10.8) K/ul RBC 3.31 L (4.20-5.40) M/uL Hgb 9.3 L (12.0-16.0) g/dl Hct 28.6 L (37.0-47.0) % MCV 86.4 (80.0-100.0) fL MCH 28.1 (25.0-34.0) pg MCHC 32.5 (32.0-36.0) g/dL RDW Std Deviation 45.5 (36.4-46.3) fL RDW Coeff of Ximena 14.6 H (11.5-14.5) % Plt Count 289 (130-400) K/uL MPV 10.3 (9.4-12.4) fL Immature Gran % (Auto) 0.3 % Neut % (Auto) 70.2 % Lymph % (Auto) 17.4 % Peach % (Auto) 9.8 % Eos % (Auto) 2.0 % Baso % (Auto) 0.3 % Neut # (Auto) 4.56 (1.40-6.50) K/uL Lymph # (Auto) 1.13 L (1.20-3.40) K/uL Peach # (Auto) 0.64 H (0.11-0.59) K/uL Eos # (Auto) 0.13 (0.00-0.50) K/uL Baso # (Auto) 0.02 (0.00-0.20) K/uL Immature Gran # (Auto) 0.02 (0.01-0.20) K/uL PT 52.9 H (9.0-12.0) Seconds INR 5.4 H (0.9-1.1) APTT 56 H (21-31) Seconds PTT Ratio 2.0 Sodium 136 (136-145) mmol/L Potassium 4.2 (3.5-5.1) mmol/L Chloride 103 (98-107) mmol/L Carbon Dioxide 25 (21-32) mmol/L Anion Gap 8 (3-11) BUN 15 (6-23) mg/dl Creatinine 0.76 (0.6-1.2) mg/dl Est Cr Clr Drug Dosing 81.6 ml/min Est GFR ( Amer) 93.4 ml/min Est GFR (Non-Af Amer) 80.6 ml/min BUN/Creatinine Ratio 19.7 (10-20) Glucose 127 H (70-99(Fasting)) mg/dl Calcium 9.1 (8.6-10.3) mg/dl Total Bilirubin 0.8 (0.2-1.0) mg/dl AST 25 (13-39) U/L ALT 30 (7-52) U/L Alkaline Phosphatase 89 (34-104) U/L Troponin I High Sens 8.4 (0-14) pg/ml B-Natriuretic Peptide 303 H (0-100) pg/ml Total Protein 7.1 (6.0-8.3) gm/dl Albumin 3.7 (3.4-5.0) gm/dl Globulin 3.4 (2.5-4.0) gm/dl Albumin/Globulin Ratio 1.1 (0.9-2) Administered Medications Amiodarone HCl (Amiodarone 200 Mg Tab) 200 mg PO BIDM OG Stop: 08/13/23 16:59 Last Admin: 07/14/23 17:15 Dose: 200 mg Documented By: MT Discontinued Medications Furosemide (Furosemide 40 Mg/4 Ml Vial) 40 mg IV ONE ONE Stop: 07/14/23 15:01 Last Admin: 07/14/23 15:25 Dose: 40 mg Documented By: BCN Imaging Data Radiologist's Impression: Chest X-Ray 07/14/23 13:26 XR chest 1V portable CLINICAL HISTORY: Chest pain, nonspecific. COMPARISON STUDY: Chest radiograph December 27, 2016. Chest CT April 25, 2022. FINDINGS: There is no pneumothorax. Small bilateral pleural effusions are present. Diffuse interstitial thickening is noted. Asymmetric right lung airspace opacities are noted. There is a possible 3.9 cm nodular right midlung density. Moderate cardiomegaly is unchanged. IMPRESSION: 1. Cardiomegaly with mild interstitial pulmonary edema and small bilateral pleural effusions. 2. Asymmetric right lung airspace opacities, including a possible 3.9 cm nodular right midlung density. The findings favor superimposed pneumonia. Asymmetric alveolar pulmonary edema could appear similar. Radiographic follow-up to ensure resolution is recommended. ACT 112: Negative or not required by law. Electronically signed by: Geraldo Domínguez M.D. 07/14/2023 2:23 PM Discharge Plan Visit Data Chief Complaint: Cardiac Assessment Stated Complaint: IRREGULAR HEARTBEAT ED Provider: Chilo Vaughan Discharge Problem: Acute congestive heart failure, Hypoxia Patient Disposition: Admitted As Inpatient Discharge Instructions Interventions: ED Discharge Assessment Last Done: 07/14/23 16:18 Discharge Problem: Acute congestive heart failure Qualifiers: Heart failure type: combined systolic and diastolic Qualified Code(s): I50.41 - Acute combined systolic (congestive) and diastolic (congestive) heart failure
[2023-07-14 14:24] LABS: Basophils # (auto) 0.02 K/uL (0.00-0.20); Basophils % (auto) 0.3 %; Eosinophils # (auto) 0.13 K/uL (0.00-0.50); Hematocrit (blood only) 28.6 % (37.0-47.0); Hemoglobin 9.3 g/dl (12.0-16.0); Immature Granulocytes # (auto) 0.02 K/uL (0.01-0.20); Immature Granulocytes % (auto) 0.3 %; Lymphocytes # (auto) 1.13 K/uL (1.20-3.40); Lymphocytes % (auto) 17.4 %; Mean Corpuscular Hemoglobin 28.1 pg (25.0-34.0); Mean Corpuscular Hgb Conc 32.5 g/dL (32.0-36.0); Mean Corpuscular Volume 86.4 fL (80.0-100.0); Mean Platelet Volume 10.3 fL (9.4-12.4); Monocytes # (auto) 0.64 K/uL (0.11-0.59); Monocytes % (auto) 9.8 %; Neutrophils # (auto) 4.56 K/uL (1.40-6.50); Neutrophils % (auto) 70.2 %; Platelet Count 289 K/uL (130-400); RDW Coefficient of Variation 14.6 % (11.5-14.5); RDW Standard Deviation 45.5 fL (36.4-46.3); Red Blood Count 3.31 M/uL (4.20-5.40)
--- NOTE | 2023-07-14 14:24 | XRay Report ---
XR chest 1V portable CLINICAL HISTORY: Chest pain, nonspecific. COMPARISON STUDY: Chest radiograph December 27, 2016. Chest CT April 25, 2022. FINDINGS: There is no pneumothorax. Small bilateral pleural effusions are present. Diffuse interstiti al thickening is noted. Asymmetric right lung airspace opacities are noted. There is a possible 3.9 c m nodular right midlung density. Moderate cardiomegaly is unchanged. IMPRESSION: 1. Cardiomegaly with mild interstitial pulmonary edema and small bilateral pleural effusions. 2. Asymmetric right lung airspace opacities, including a possible 3.9 cm nodular right midlung densit y. The findings favor superimposed pneumonia. Asymmetric alveolar pulmonary edema could appear simila r. Radiographic follow-up to ensure resolution is recommended. ACT 112: Negative or not required by law. Electronically signed by: Geraldo Domínguez M.D. 07/14/2023 2:23 PM
--- NOTE | 2023-07-14 14:26 | Electrocardiogram Report ---
Test Reason : Blood Pressure : / mmHG Vent. Rate : 052 BPM Atrial Rate : 052 BPM P-R Int : 220 ms QRS Dur : 074 ms QT Int : 498 ms P-R-T Axes : 073 013 042 degrees QTc Int : 463 ms Sinus bradycardia with 1st degree A-V block Nonspecific ST abnormality Abnormal ECG When compared with ECG of 28-APR-2022 09:57, Premature atrial complexes are no longer Present ST now depressed in Anterior leads Nonspecific T wave abnormality no longer evident in Lateral leads Confirmed by Emmett Dillard ([id number]) on 07/14/2023 2:26:18 PM Referred By: Shiva Rich Confirmed By:Rubin Dillard
--- OUTSIDE RECORDS SUMMARY | 2023-07-14 14:32 | External Medical Summary | Summary of Care ---
Author Name Unknown Organization [facility] Address [address] [facility] [place] [address] Phone [phone] Care Team Providers Care Spiritual Counselor Name Role Phone Hilario ANDRADE MD, Shiva Kebede Primary Care Provider [phone] Reason for Visit * Reason Comments Dosage Adjustment Via Phone (anticoag Cl inic) Encounter Details Date Type Department Care Team (Latest Contact Info) Description 07/03/2023 6:15 AM [facility] Anticoagulation Pharmacy Call Center [phone] [place] [address] [facility] [phone] [facility] [place] [address] Paroxysmal atrial fibrillation (HCC)* Allergies Active Allergy Reactions Criticality Noted Date Comments Bee Venom Edema Other 01/10/2016 Lisinopril Cough 09/04/2016 documented as of this encounter (statuses as of 07/03/2023) Medications Medication Sig Dispensed Refills Start Date End Date Status oxygen IN GAS 3 LPM bled through CPAP 14 cwp 1 Each 0 04/10/2020 Active Aspirin EC 81 MG Oral Tablet Delayed Release Take by mouth 1 Tablet in the morning. 0 10/29/2021 Active Magnesium Chloride 64 MG Oral Tablet Delayed Release (Mag-64) Take 1 Tablet by mouth in the morning and 1 Tablet before bedtime. 0 04/29/2022 Active Warfarin Sodium 5 MG Oral Tablet (Coumadin)Indications: Recent cerebrovascular accident (CVA),Paroxysmal atrial fibrillation (HCC) TAKE 1 1/2 TABLETS (7.5mg) BY MOUTH FRIDAYS AND 1 TABLET (5mg) ALL OTHER EVENINGS OR DIRECTED BY [facility]. 105 Tablet 3 07/18/2022 Active Multi Vitamin Daily Oral Tablet 0 Active Ezetimibe 10 MG Oral Tablet (Zetia)Indications:Rig ht internal carotid occlusion TAKE 1 TABLET BY MOUTH EVERY DAY 90 Tablet 3 09/13/2022 Active Ferrous Sulfate 325 (65 Fe) MG Oral Tablet Take 1 Tablet by mouth every other day. 0 Active Furosemide 40 MG Oral Tablet (Lasix) TAKE 1 TABLET BY MOUTH EVERY MORNING 30 Tablet 6 01/13/2023 Active DULoxetine HCl 60 MG Oral Capsule Delayed Release Particles (Cymbalta) TAKE 2 CAPSULES BY MOUTH EVERY MORNING 180 Capsule 2 01/13/2023 Active Myrbetriq 50 MG Oral Tablet Extended Release 24 Hour (Mirabegron ER) Take 1 Tablet by mouth in the morning. 90 Tablet 3 02/09/2023 Active Losartan Potassium 100 MG Oral Tablet (Cozaar) Take 1 Tablet by mouth in the morning. 90 Tablet 1 02/25/2023 Active Cyanocobalamin 1000 MCG Oral Tablet (Cyanocobalamin) Take 1 Tablet by mouth in the morning. 100 Tablet 3 03/18/2023 Active metFORMIN HCl 500 MG Oral Tablet (Glucophage) TAKE 2 TABLETS BY MOUTH TWO TIMES DAILY WITH MORNING AND EVENING MEALS. 360 Tablet 1 05/01/2023 Active amLODIPine Besylate 5 MG Oral Tablet (Norvasc) Take 1 Tablet by mouth in the morning. 34 Tablet 11 04/30/2023 Active CPAP every night at bedtime. 0 Active Cephalexin 500 MG Oral Capsule Take 1 Capsule by mouth in the morning and 1 Capsule at noon and 1 Capsule in the evening and 1 Capsule before bedtime. 28 Capsule 0 05/21/2023 Active Metoprolol Succinate ER 25 MG Oral Tablet Extended Release 24 Hour (toPROL XL)Indications:Paroxys mal atrial fibrillation (HCC) Take 1 Tablet by mouth in the morning. 90 Tablet 3 05/30/2023 Active Solifenacin Succinate 5 MG Oral Tablet (VESIcare) Take 1 Tablet by mouth in the morning. 30 Tablet 0 06/09/2023 Active Amiodarone HCl 200 MG Oral Tablet (Cordarone)Indications :PAF (paroxysmal atrial fibrillation) (HCC) TAKE 1 TABLET BY MOUTH EVERY MORNING 90 Tablet 3 06/13/2023 Active Sennosides 8.6 MG Oral Tablet (Senokot) Take 2 Tablets by mouth in the morning. 14 Tablet 0 06/20/2023 Active oxyCODONE-Acetaminophe n 5-325 MG Oral Tablet (Percocet) Take 1 Tablet by mouth every 6 hours as needed for Pain, Severe. 20 Tablet 0 06/19/2023 Active Atorvastatin Calcium 80 MG Oral Tablet (Lipitor) TAKE 1 TABLET BY MOUTH EVERY DAY 90 Tablet 1 06/29/2023 Active documented as of this encounter (statuses as of 07/03/2023) Active Problems Problem Noted Date Diagnosed Date Wound dehiscence, surgical 06/15/2023 Postoperative wound infection 06/15/2023 Other iron deficiency anemias 05/22/2023 Postoperative anemia due to acute blood loss History of total knee arthroplasty, right 2022 Alcohol abuse 05/11/2023 Atherosclerosis of chilkoot co ronary artery without angina pectoris 09/10/2022 Body mass index (BMI) of 40.0 to 44.9 in adult 1 08/02/2021 Overview: Per Obesity protocol - Heart failure 05/06/2022 Thickened endometrium 09/06/2021 Endometrial polyp 09/06/2021 PMB (postmenopausal bleeding) 08/19/2021 SALVADOR on CPAP 04/19/2020 Dyslipidemia, goal LDL below 70 12/30/2019 History of melanoma in situ 07/27/2019 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 History of basal cell cancer 01/24/2019 Overview: L ear Scalp/neck History of colon cancer 06/24/2018 Morbid obesity due to excess calories 03/25/2017 Right internal carotid occlusion 02/13/2017 Left renal mass 01/26/2017 Type 2 diabetes mellitus without complications 0 01/21/2017 Hemiplegia and hemiparesis f ollowing cerebral infarction affecting left non-dominant side 01/21/2017 Paroxysmal atrial fibrillation 01/21/2017 Essential hypertension with goal blood pressure less than 140/90 09/02/2016 documented as of this encounter (statuses as of 07/03/2023) Resolved Problems Problem Noted Date Diagnosed Date Resolved Date Atherosclerotic heart diseas e of chilkoot coronary artery with other forms of angina pectoris 01/31/2022 01/31/2022 Visit for wound check 03/09/20192019 Basal cell carcinoma (BCC) o f helix of left ear 02/23/2019 03/06/2023 BCC (basal cell carcinoma), scalp/neck 11/04/2018 03/06/2023 Body mass index (BMI) of 45. 0 to 49.9 in adult 04/20/2017 06/05/2022 Overview: Per Obesity protocol #1 Recent cerebrovascular accident (CVA) 02/13/2017 12/23/2018 Body mass index (BMI) of 40. 0 to 44.9 in adult 01/21/2017 03/25/2017 Overview: ICD-10 update of inactive term documented as of this encounter (statuses as of 07/03/2023) Immunizations Name Administration Dates Next Due COVID-19 mRNA, LNP-s, No Pre serve, 2-Dose Series (Shopliment) 05/16/2021,09/23/2020,08/26/2020 Covid-19, Mrna, Lnp-s, Pf, B ivalent, 30 Mcg, IM, 12 yrs and above (Pfizer) 05/09/2022 Pneumococcal Conjugate Vacc, 13 Valent (Prevnar) 12/21/2017 Pneumococcal Polysaccharide PPV23 (Pneumovax) 01/31/2022,11/19/2016 Seasonal Influenza, PF, 6 M & above, IM , (FluLaval or Fluzone) 04/13/2020,04/15/2019,04/26/2018,04/08 Seasonal Influenza, Quadriva lent Hd (Fluzone Hd) 04/02/2023,04/18/2022,04/10/2021 TDAP (age 10 and older)(Boostrix) 01/02/2016 Varicella Zoster Vaccine (Adult) 03/25/2017 Zoster Vaccine Recombinant (Shingrix) 06/24/2018 ,02/01/2018 documented as of this encounter Social History Tobacco Use Types Packs/Day Years Used Date Smoking Tobacco: Never Smokeless Tobacco: Never Alcohol Use Standard Drinks/Week Comments Yes 0 (1 standard drink = 0.6 oz pure alcohol) moderate scotch is drink of choice - none since 12/2016 PHQ-2 Answer Date Recorded PHQ-2 Score 0 06/10/2019 Hunger Vital Sign Answer Date Recorded Within the past 12 months, y ou worried that your food would run out before you got the money to buy more. Never true 12/29/19 21 Within the past 12 months, t he food you bought just didn't last and you didn't have money to get more. Never true 12/28/2020 Sex and Gender Information Value Date Recorded Sex Assigned at Female 03/29/2022 9:05 AM EDT Gender Identity Female 03/29/2022 9:05 AM EDT Sexual Orientation Straight 03/29/2022 9: 05 AM EDT Job Start Date Occupation Industry Not on file Not on file Not on file documented as of this encounter Functional Status Functional Status Response Date of Assess ment Are you deaf or do you have serious difficulty hearing? No 06/15/2023 Are you blind or do you have serious difficulty seeing, even when wearing glasses? No 06/15/2023 Do you have serious difficul ty walking or climbing stairs? (5 years old or older) Yes-uses walker 06/15/2023 Do you have difficulty dress ing or bathing? (5 years old or older) No 06/15/2023 Because of a physical, menta l, or emotional condition, do you have difficulty doing errands alone such as visiting a doctor s office or shopping? (15 years old or older) No 06/15/20 23 Cognitive Status Response Date of Assessm ent Because of a physical, menta l, or emotional condition, do you have serious difficulty concentrating, remembering, or making decisions? (5 years old or older) No 06/15/2023 documented as of this encounter Progress Notes * Nohelia Montague CPhT - 07/03/2023 10:37 AM EST Contacts Type Contact Phone/Fax 07/03/2023 10:36 AM EST Phone (Outgoing) Nenita Fleming (Self) [phone] (M) Left Message Subjective Advised patient to contact Anticoagulation Clinic if any unusual bruising or bleeding, recent illness, changes in medication, or questions/concerns. PT/INR results, Coumadin dose instructions, and next PT/INR date communicated as noted by Pharmacist: Yes Nohelia Montague CPhT 07/03/2023, 10:37 AM * Nohelia Cortes RPh - 07/03/2023 8:11 AM EST Coumadin Clinic (region specific) Objective Current Warfarin Dose As of 07/03/2023 Warfarin maintenance plan: 7.5 mg (5 mg x 1.5) every Fri; 5 mg (5 mg x 1) all other days INR Result As of 07/03/2023 INR goal: 2.0-3.0 INR used for dosin.3 (07/02/2023) Assessment & Plan Warfarin Plan As of 07/03/2023 Full warfarin instructions: 7.5 mg every Fri; 5 mg all other days No change documented: Nohelia Cortes RPh Next INR check: 07/09/2023 Repeat PT/INR in 1 week(s) Weekly dose: not changed Additional Dosing Information: [facility] pt prefers Thurs AMIODARONE started 04/28/22 Tech to contact patient with dose instructions as noted. Nohelia Cortes RPh 07/03/2023, 8:11 AM documented in this encounter Plan of Treatment Upcoming Encounters Date Type Department Care Team (Late st Contact Info) Description 07/09/2023 9:00 AM EST Office Visit Orthopaedics [facility] [address] [place] [address] Forrest Davidson, [address] [place] [address] 07/09/2023 9:30 AM EST Laboratory Laboratory, [facility] [address] [place] [phone] Wilfredo Gambinos [address] [place] [address] 07/10/2023 6:15 AM EST Anticoagulation Pharmacy Call Center WB [phone] [facility] [place] [address] [facility] [address] [facility] [place] [address] 09/30/2023 9:20 AM EDT Office Visit Family Practice [facility] [address] [place] [address] Shiva Rich III, MD [address] [place] [address] 10/01/2023 3:15 PM EDT Office Visit Hematology/Oncology [facility] [address] [place] [address] Efraín Leone MD [address] [place] [place] [address] 11/12/2023 11:20 AM EDT Office Visit Dermatology [facility] [address] [place] [address] Margarita Figueredo PA-C [address] [facility] [place] [phone] 02/25/2024 9:30 AM EDT Imaging Radiology [address] [place] [address] 04/21/2024 10:30 AM EDT Office Visit Sleep Disorders Ctr [facility] [address] [place] [phone] Viktoriya White CRNP [address] [place] [address] Scheduled Procedures Name Priority Associated Diagnoses Date/Ti me COLONOSCOPY FLEXIBLE PROXIMA L DIAGNOSTIC Recall History of colonic polyps Health Maintenance Due Date Last Done Comments Hepatitis B (1 of 3 - Risk 3-dose series) 2014 Depression Screening 06/24/2020 06/24/2019 Diabetic Foot Exam 01/31/2023 01/31/2022, 0 12/31/2020, 06/24/2019, Additional history exists COVID-19 Vaccine ( season) 2023 05/09/2022, 05/16/2021, 09/23/2020, Additional history exists *NEPHROLOGY REFERRAL DUE TO RESISTANT HTN 04/24/2023 Diabetic Eye Exam 08/28/2023 08/28/2022, , 08/17/2020, Additional history exists HbA1c 11/03/2023 05/04/2023, 08/0 07/2022, 09/10/2022, Additional history exists Albumin/Creatinine Ratio 02/18/2024 02/17/2023, 01/17 Mammogram 02/24/2024 02/23/2023, 05/20, 03/06/2022, Additional history exists COLONOSCOPY-EVERY 3 YRS AGES 18-100 04/11/2024 04/11/2021, 03/16/2019, 02/16/2018, Additional history exists B-12 04/16/2024 04/16/2023, 08/0 07/2022, 10/06/2022, Additional history exists GFR 06/19/2024 06/19/2023, 05/22, 06/17/2023, Additional history exists DTaP,Tdap,and Td Vaccines (2 - Td or Tdap) 01/01/2026 01/02/2016 DXA Scan 01/15/2027 01/16/2020 Zoster Vaccines Completed 06/24/2018, 01/17, 03/25/2017 COLONOSCOPY-EVERY 2 YRS AGES 18-100 Discontinued 04/11/2021, 03/16/2019, 02/16/2018, Additional history exists Pneumococcal Vaccine: 65+ Years Completed 01/31/2022, 12/21/2017, 11/19/2016 Influenza Vaccine (FLU shot) Completed 04/02/2023, 04/18/2022, 04/10/2021, Additional history exists GARDASIL-HPV IMMUNIZATION SERIES Aged Out No longer eligible based on patient's age to complete this topic MENINGOCOCCAL (MENACTRA/MENVEO) Aged Out No longer eligible based on patient's age to complete this topic documented as of this encounter Medical Devices Implanted Type Area Catering Manager Device Identifier Shelf Expiration Date Model / Serial / Lot Knee X3 Ins Pos Cs Sz4 11 - Sn/A - [id number] Implanted:Qty: 1 on 05/11/2023 by Forrest Davidson, DO at OR [facility] Right: Knee FRANNIE : ORTHOPAEDICS 10/16/2027 [id number] / N/A / [id number] documented as of this encounter Visit Diagnoses Diagnosis Paroxysmal atrial fibrillation (HCC)- Primary Atrial fibrillation documented in this encounter Advance Directives Latest Code Status on File Code Status Date Activated Date Inactivated Comments Full Code 06/17/2023 5:22 PM 06/19/2023 7:20 PM This order reflects the patients wishes and were consensually agreed upon. Question Answer Comments Discussion of Advance Directives occurred with: Patient Code Status History Code Status Date Activated Date Inactivated Comments Full Code 06/15/2023 4:16 PM 06/17/2023 5:22 PM Thi s order reflects the patients wishes and were consensually agreed upon. Question Answer Comments Discussion of Advance Directives occurred with: Patient Full Code 05/11/2023 4:30 PM 05/12/2023 8:11 PM Thi s order reflects the patients wishes and were consensually agreed upon. Question Answer Comments Discussion of Advance Directives occurred with: Patient Care Teams Spiritual Counselor Relationship Specialty Start Date End Date Shiva Rich III, MD [address] [place] [place] [address] PCP - General Family Medicine 09/10/18 documented as of this encounter
--- OUTSIDE RECORDS SUMMARY | 2023-07-14 14:32 | External Medical Summary ---
Author Name Unknown Address Unknown Organization [id number]:[facility] [place] [address] [facility] [place] [address] Laboratory Report Ordering Provider Test Date Status GINAMANNY 07/09/2023 10:00:46 Final Observation Date Value Abnormality Reference (Units ) Status Triglyceride 07/09/2023 10:00:46 63 <=174 ( mg/dL) Final Triglyceride Reference Range s (mg/dL):
<150 Acceptable
150-174 Borderline high
175-499 High
>=500 Very high Cholesterol 07/09/2023 10:00:46 131 <200 (mg /dL) Final Total Cholesterol Reference Ranges (mg/dL):
<200 Desirable
200-239 Borderline high
>=240 High HDL 07/09/2023 10:00:46 76 >49 (mg/dL ) Final HDL Cholesterol Reference Ra nges (mg/dL):
>=60 High (Desirable)
<50 Low (Undesirable) For Females
<40 Low (Undesirable) For Males NON-HDL CHOLESTEROL 07/09/2023 10:00:46 55 <=159 (mg/dL) Final Non-HDL Cholesterol Referenc e Range (mg/dL):
<100 Target level for high risk ASCVD patient
<130 Optimal for general population
130-159 Near optimal for general population
160-189 Borderline High
190-219 High
>=220 Very High LDL, (calculated) 07/09/2023 10:00:46 42 <= 129 (mg/dL) Final LDL Cholesterol Reference Ra nges (mg/dL):
<70 Target level for high risk ASCVD patient
<100 Optimal for general population
100-129 Near optimal for general population
130-159 Borderline high
160-189 High
>=190 Very high Performing Location [facility] [place] [address] [facility] [address]
--- OUTSIDE RECORDS SUMMARY | 2023-07-14 14:32 | External Medical Summary ---
Author Name Unknown Address Unknown Organization [id number][facility] [facility] [address] [place] [address] Laboratory Report Ordering Provider Test Date Status ALMA PORTILLO 07/09/2023 10:00:46 Final Discharge Order Observation Date Value Abnormality Reference (Units ) Status SYNC LEUKOCYTES IN BLOOD BY AUTOMATED COUNT 07/09/2023 10:00:46 6.43 4.00-10.80 (K/uL) Final Segs 07/09/2023 10:00:46 63.5 40.0-75.0 (%) Final Lymphs % 07/09/2023 10:00:46 23.3 18.0-42.0 (%) Final Monos 07/09/2023 10:00:46 11.0 1.0-11.0 (%) Final Eosinophils 07/09/2023 10:00:46 2.0 0.0-6.0 (%) Final Basos 07/09/2023 10:00:46 0.2 0.0-2.0 (%) Final Absolute Segs 07/09/2023 10:00:46 4.08 1.80-7.70 (K/uL) Final Lymphs, absolute 07/09/2023 10:00:46 1.50 1.00-4.80 (K/ul) Final Monos, Abs 07/09/2023 10:00:46 0.71 0.00-1.10 (K/uL) Final Eos, Abs 07/09/2023 10:00:46 0.13 0.00-0.70 (K/uL) Final Basos, Abs 07/09/2023 10:00:46 0.01 0.00-0.20 (K/uL) Final Performing Location LAB[facility]ATORY [facility] [address] - [address] [place] [address]
--- OUTSIDE RECORDS SUMMARY | 2023-07-14 14:32 | External Medical Summary | Summary of Care ---
Author Name Unknown Organization [facility] Address [address] [facility] [place] [address] Phone [phone] Care Team Providers Care Cardiopulmonary Technologist Name Role Phone Hilario ANDRADE MD, Shiva Kebede Primary Care Provider [phone] Reason for Visit * Reason Comments NEW PATIENT Right knee wound wilmar ck Encounter Details Date Type Department Care Team (Latest Contact Info) Description 07/02/2023 1:00 PM EST Office Visit Orthopaedics [facility] [address] [place] [address] Forrest Davidson, [address] [place] [address] Status post total right knee replacement*; Status post musculoskeletal system surgery Allergies Active Allergy Reactions Criticality Noted Date Comments Bee Venom Edema Other 01/10/2016 Lisinopril Cough 09/04/2016 documented as of this encounter (statuses as of 07/02/2023) Medications Medication Sig Dispensed Refills Start Date [...] (5mg) ALL OTHER EVENINGS OR DIRECTED BY [facility]. 105 Tablet 3 07/18/2022 Active Multi Vitamin [...] as of this encounter (statuses as of 07/02/2023) Active Problems Problem Noted Date Diagnosed Date Wound dehiscence, surgical 06/15/2023 Postoperative wound infection 06/15/2023 Other iron deficiency anemias 05/22/2023 Postoperative anemia due to acute blood loss History of total knee arthroplasty, right 2022 Alcohol abuse 05/11/2023 Atherosclerosis of [place] co ronary artery without angina pectoris 09/10/2022 [...] as of this encounter (statuses as of 07/02/2023) Resolved Problems Problem Noted Date Diagnosed Date Resolved Date Atherosclerotic heart diseas e of [place] coronary artery with other forms of angina [...] as of this encounter (statuses as of 07/02/2023) Immunizations Name Administration Dates Next Due COVID-19 mRNA, LNP-s, No Pre serve, 2-Dose Series (Endosee) 05/16/2021,09/23/2020,08/26/2020 Covid-19, Mrna, Lnp-s, Pf, B ivalent, [...] as of this encounter Progress Notes * Forrest Davidson, DO - 07/02/2023 1:46 PM EST ORTHOPAEDIC SURGERY - Post-Op Clinic Note SUBJECTIVE: Nenita Fleming is a 67 year old female. Chief Complaint Patient presents with NEW PATIENT Right knee wound check HPI: She is roughly 7 weeks status post right total knee arthroplasty with subsequent wound debridement on 06/17/2023 (2 weeks out). She reports that she is doing well. She does not describe pain. Noreported fevers, chills or night sweats. She was seen last week for wound check and new dressing application. She states that home health has been present but did not change the dressing or evaluate the wound. She has continued use of the knee immobilizer as instructed. She has completed her oral antibiotic course. Review of patient's allergies indicates: Allergen Reactions Bee Venom Edema Other Lisinopril Cough Current Outpatient Medications Medication Sig Dispense Refill oxygen IN GAS 3 LPM bled through CPAP 14 cwp 1 Each 0 Aspirin EC 81 MG Oral Tablet Delayed Release Take by mouth 1 Tablet in the morning. Magnesium Chloride 64 MG Oral Tablet Delayed Release (Mag-64) Take 1 Tablet by mouth in the morningand 1 Tablet before bedtime. Warfarin Sodium 5 MG Oral Tablet (Coumadin) TAKE 1 1/2 TABLETS (7.5mg) BY MOUTH FRIDAYS AND 1 TABLET (5mg) ALL OTHER EVENINGS OR DIRECTED BY [facility]. 105 Tablet 3 Multi Vitamin Daily Oral Tablet Ezetimibe 10 MG Oral Tablet (Zetia) TAKE 1 TABLET BY MOUTH EVERY DAY 90 Tablet 3 Ferrous Sulfate 325 (65 Fe) MG Oral Tablet Take 1 Tablet by mouth every other day. Furosemide 40 MG Oral Tablet (Lasix) TAKE 1 TABLET BY MOUTH EVERY MORNING 30 Tablet 6 DULoxetine HCl 60 MG Oral Capsule Delayed Release Particles (Cymbalta) TAKE 2 CAPSULES BY MOUTH EVERY MORNING 180 Capsule 2 Myrbetriq 50 MG Oral Tablet Extended Release 24 Hour (Mirabegron ER) Take 1 Tablet by mouth in the morning. 90 Tablet 3 Losartan Potassium 100 MG Oral Tablet (Cozaar) Take 1 Tablet by mouth in the morning. 90 Tablet 1 Cyanocobalamin 1000 MCG Oral Tablet (Cyanocobalamin) Take 1 Tablet by mouth in the morning. 100 Tablet 3 metFORMIN HCl 500 MG Oral Tablet (Glucophage) TAKE 2 TABLETS BY MOUTH TWO TIMES DAILY WITH MORNING AND EVENING MEALS. 360 Tablet 1 amLODIPine Besylate 5 MG Oral Tablet (Norvasc) Take 1 Tablet by mouth in the morning. 34 Tablet 11 CPAP every night at bedtime. Cephalexin 500 MG Oral Capsule Take 1 Capsule by mouth in the morning and 1 Capsule at noon and 1 Capsule in the evening and 1 Capsule before bedtime. 28 Capsule 0 Metoprolol Succinate ER 25 MG Oral Tablet Extended Release 24 Hour (toPROL XL) Take 1 Tablet by mouth in the morning. 90 Tablet 3 Solifenacin Succinate 5 MG Oral Tablet (VESIcare) Take 1 Tablet by mouth in the morning. 30 Tablet 0 Amiodarone HCl 200 MG Oral Tablet (Cordarone) TAKE 1 TABLET BY MOUTH EVERY MORNING 90 Tablet 3 Sennosides 8.6 MG Oral Tablet (Senokot) Take 2 Tablets by mouth in the morning. 14 Tablet 0 oxyCODONE-Acetaminophen 5-325 MG Oral Tablet (Percocet) Take 1 Tablet by mouth every 6 hours as needed for Pain, Severe. 20 Tablet 0 Atorvastatin Calcium 80 MG Oral Tablet (Lipitor) TAKE 1 TABLET BY MOUTH EVERY DAY 90 Tablet 1 No current facility-administered medications for this visit. OBJECTIVE: Diagnostic studies: Updated x-rays of the right knee were obtained, viewed and interpreted the office today demonstrating evidence of stable total knee prosthesis in anatomic alignment without evidence of hardware complication or prosthetic loosening. Recent CRP on 06/25/2023 was < 3 Vital Signs: There were no vitals taken for this visit. Physical Exam: Examination of the right knee reveals lower extremity compressive wrap in place with knee immobilizer. There is no issue with the previously placed dressing. This was removed. No evidence of erythemaor drainage. There is no odor. The incision is well approximated with good granulation tissue notedalong the central aspect of the wound. The remaining incision is well approximated both proximally and distally. Suture material in place. She has intact straight leg raise. She is able to flex to roughly 70 without issue. No evidence of wound dehiscence on flexion. No calf tenderness. No lower extremity edema. ASSESSMENT: Status post total right knee replacement (Primary) - XR KNEE 3 VIEWS Status post musculoskeletal system surgery Follow Up: Return in about 1 week (around 07/09/2023) for Wound check and suture removal. | For: Wound check and suture removal PLAN: She is doing well following her recent superficial wound debridement. Her incision is well approximated. Images were obtained today. The wound was once again cleansed with Betadine swab as well as peroxide. The area was dried and a sterile dressing consisting of 4x4s and a bordered gauze was placed. The knee immobilizer was discontinued as well as the lower extremity compressive wrap. She may begin gentle motion to no greater than 90. She is to maintain the current dressing. Home health nursing will evaluate the wound and perform dressing changes. She is not to shower at this time. I would like to see her back in 1 week for suture removal. No x-ray needed. Following such evaluation, we will get her back on schedule for three-month postoperative follow-up. All questions answered her satisfaction. This chart was completed in part utilizing [employer] Voice Recognition Software. Grammatical errors, random word insertions, pronoun errors, and incomplete sentences are an occasional consequence of this system due to software limitations, ambient noise, and hardware issues. Any formal questions or concerns about the content, text, or information contained within the body of this dictation should be directly addressed to the provider for clarification. Forrest Davidson DO 07/02/2023 1:46 PM documented in this encounter Nursing Notes * Medina Conde MED ASSIST - 07/02/2023 1:07 PM EST Pt presents today for right knee wound check , DOS 05/11/23. Pt states she feels home health is nothelpful, as they just look at the top 2 inches of her wound and not looking at the rest. documented in this encounter Plan of Treatment Upcoming Encounters Date Type Department Care Team (Late st Contact Info) Description 07/03/2023 6:15 AM EST Anticoagulation Pharmacy Call Center WB [phone] [facility] [place] [address] [facility] 58 60 [facility] [place] [address] 07/09/2023 9:00 AM EST Office Visit Orthopaedics [facility] [address] [place] [address] Forrest Davidson, [address] [place] [address] 09/30/2023 9:20 AM EDT [facility] [address] Shiva Rich III, MD [address] [place] [address] 10/01/2023 3:15 PM EDT Office Visit Hematology/Oncology [facility] [address] [place] [address] Efraín Leone MD [address] [place] [address] 11/12/2023 11:20 AM EDT Office Visit Dermatology [facility] [address] [place] [address] Margarita Figueredo PA-C 200 [facility] [place] [phone] 02/25/2024 9:30 AM EDT Imaging Radiology [address] 132 [facility] [place] [address] 04/21/2024 10:30 AM EDT Office Visit Sleep Disorders Ctr [facility] 132 [facility] [place] [phone] Viktoriya White CRNP 132 [facility] [place] [address] Pending Results Name Type Priority Associated Diagnoses Date /Time XR KNEE 3 VIEWS Medical Imaging Routine Status post total right knee replacement 07/02/2023 1:49 PM EST Scheduled Procedures Name Priority Associated Diagnoses Date/Ti [...] this encounter Medical Devices Implanted Type Area Artificial Intelligence Specialist Device Identifier Shelf Expiration Date Model / Serial / Lot Knee X3 Ins Pos Cs Sz4 11 - Sn/A - [id number] Implanted:Qty: 1 on 05/11/2023 by Forrest Davidson at OR [facility] Right: Knee FRANNIE : ORTHOPAEDICS 10/16/2027 [id number] / N/A / [id number] documented as of this encounter Visit Diagnoses Diagnosis Status post total right knee replacement- Primary Status post musculoskeletal system surgery documented in this encounter Advance Directives Latest [...] Advance Directives occurred with: Patient Care Teams Cardiopulmonary Technologist Relationship Specialty Start Date End Date Shiva Rich III, MD [address] [place] [address] PCP - General Family Medicine 09/10/18 documented as of this encounter"
--- OUTSIDE RECORDS SUMMARY | 2023-07-14 14:32 | External Medical Summary | Summary of Care ---
Author Name Unknown Organization [facility] Address [address] [facility] [place] [address] Phone [phone] Care Team Providers Care Teacher Ballet Name Role Phone Hilario ANDRADE MD, Shiva Kebede Primary Care Provider [phone] Reason for Visit * Reason Comments Dosage Adjustment Via Phone (anticoag Cl inic) Encounter Details Date Type Department Care Team (Latest Contact Info) Description 07/10/2023 6:15 AM [facility] Anticoagulation Pharmacy Call Center [phone] [place] [address] [facility] [address] [facility] [place] [address] Paroxysmal atrial fibrillation (HCC)* Allergies Active Allergy Reactions Criticality Noted Date Comments Bee Venom Edema Other 01/10/2016 Lisinopril Cough 09/04/2016 documented as of this encounter (statuses as of 07/10/2023) Medications Medication Sig Dispensed Refills Start Date [...] (5mg) ALL OTHER EVENINGS OR DIRECTED BY [facility]. 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 pectoris 09/10/2022 [...] as of this encounter (statuses as of 07/10/2023) Resolved Problems Problem Noted Date Diagnosed Date Resolved Date Atherosclerotic heart diseas e of [place] coronary artery with other forms of angina [...] as of this encounter (statuses as of 07/10/2023) Immunizations Name Administration Dates Next Due COVID-19 mRNA, LNP-s, No Pre serve, 2-Dose Series (dineout) 05/16/2021,09/23/2020,08/26/2020 Covid-19, Mrna, Lnp-s, Pf, B ivalent, [...] (15 years old or older) No 06/15/20 Cognitive Status Response Date of Assessm ent Because of a physical, menta l, or emotional condition, do you have serious difficulty concentrating, remembering, or making decisions? (5 years old or older) No 06/15/2023 documented as of this encounter Progress Notes * Frederic Baeza marine insurance claim examiner - 07/10/2023 11:30 AM EST Contacts Type Contact Phone/Fax 07/10/2023 11:28 AM EST Phone (Outgoing) Nenita Fleming (Self) [phone] (M) Left Message Subjective PT/INR results, Coumadin dose instructions, and next PT/INR date communicated as noted by Pharmacist: Yes Frederci Baeza marine insurance claim examiner 07/10/2023, 11:30 AM * Heydi Frias RPh - 07/10/2023 8:46 AM EST Images from the original note were not included. Coumadin Clinic (region specific) Objective Current Warfarin Dose As of 07/10/2023 Warfarin maintenance plan: 7.5 mg (5 mg x 1.5) every Fri; 5 mg (5 mg x 1) all other days INR Result As of 07/10/2023 INR goal: 2.0-3.0 INR used for dosin.2 (07/09/2023) Assessment & Plan Warfarin Plan As of 07/10/2023 Full warfarin instructions: 07/10: 2.5 mg; Otherwise 7.5 mg every Fri; 5 mg all other days Next INR check: 07/23/2023 Repeat PT/INR in 2 week(s) -- to see full effect of weekly dose Weekly dose: not changed Additional Dosing Information: Description Edson Gambino- pt prefers Thurs AMIODARONE started 04/28/22 Tech to contact patient with dose instructions as noted. Heydi Frias RPh 07/10/2023, 8:46 AM documented in this encounter Plan of Treatment Upcoming Encounters Date Type Department Care Team (Late st Contact Info) Description 07/23/2023 9:30 AM EST [facility] [address] [place] [phone] Wilfredo Gambino [address] [place] [address] 07/24/2023 6:15 AM EST Anticoagulation Pharmacy Call Center [phone] [place] [address] [facility] [address] [facility] [place] [address] 08/13/2023 9:15 AM EST Office Visit Orthopaedics [facility] [address] [place] [address] Forrest Davidson, [address] [place] [address] 09/30/2023 9:20 AM EDT Office Visit Family Practice [facility] [address] [place] [address] Shiva Rich III, MD 200 [facility] [place] [address] 10/01/2023 3:15 PM EDT Office Visit Hematology/Oncology [facility] [address] [place] [address] Efraín Leone MD 200 [facility] [place] [address] 11/12/2023 11:20 AM EDT Office Visit Dermatology [facility] [address] [place] [address] Margarita Figueredo PA-C 200 [facility] [place] [phone] 02/25/2024 9:30 AM EDT Imaging Radiology [address] [place] [address] 04/21/2024 10:30 AM EDT Office Visit Sleep Disorders Ctr [facility] [address] [place] [phone] Viktoriya White CRNP [address] [place] [address] Scheduled Procedures Name Priority Associated Diagnoses Date/Ti me COLONOSCOPY FLEXIBLE PROXIMA L DIAGNOSTIC Recall History of colonic polyps Health Maintenance Due Date Last Done Comments Hepatitis B (1 of 3 - Risk 3-dose series) 2014 Depression Screening 06/24/2020 06/24/2019 Diabetic Foot Exam 01/31/2023 01/31/2022, 0 12/31/2020, 06/24/2019, Additional history exists COVID-19 Vaccine (2022- season) 2023 05/09/2022, 05/16/2021, 09/23/2020, Additional history [...] this encounter Medical Devices Implanted Type Area Sharepoint Analyst Device Identifier Shelf Expiration Date Model / Serial / Lot Knee X3 Ins Pos Cs Sz4 11 - Sn/A - [id number] Implanted:Qty: 1 on 05/11/2023 by Forrest Davidson, DO at OR [facility] Right: Knee FRANNIE : ORTHOPAEDICS 10/16/2027 [...] Advance Directives occurred with: Patient Care Teams Teacher Ballet Relationship Specialty Start Date End Date Shiva Rich III, MD 200 [facility] [place] [address] PCP - General Family Medicine 09/10/18 documented as of this encounter
--- OUTSIDE RECORDS SUMMARY | 2023-07-14 14:32 | External Medical Summary | Summary of Care ---
Author Name Unknown Organization [facility] Address [address] [facility] [place] [address] Phone [phone] Care Team Providers Care Liberal Arts Teacher Name Role Phone Hilario ANDRADE MD, Shiva Kebede Primary Care Provider [phone] Reason for Referral * Evaluate & Treat - Unlimited Visits (Within 10 days (routine)) - Authorized Specialty Diagnoses / Procedures Referred By Andrea cochran Referred To Contact Physical Therapy / Physical Medicine And Rehab Diagnoses Status post total right knee replacement Forrest Davidson DO [address] [place] [address] Referral ID Status Reason Start Date Expiration Date Visits Requested Visits Authorized [id number] Authorized Specialty Services Required 3 [phone] Question Answer Referral Priority Within 10 days (routine) Where should this appointment be scheduled? [facility] Comments Total knee protocol Reason for Visit * Reason Comments Follow Up Right knee wound wilmar ck Encounter Details Date Type Department Care Team (Latest Contact Info) Description 07/09/2023 9:00 AM EST Office Visit Orthopaedics [facility] [address] [place] [address] Forrest Davidson DO [address] [place] [address] Postoperative wound infection*; Status post musculoskeletal system surgery; Status post total right knee replacement Allergies Active Allergy Reactions Criticality Noted Date Comments Bee Venom Edema Other 01/10/2016 Lisinopril Cough 09/04/2016 documented as of this encounter (statuses as of 07/09/2023) Medications Medication Sig Dispensed Refills Start Date [...] (5mg) ALL OTHER EVENINGS OR DIRECTED BY [facility]. 105 Tablet 3 07/18/2022 Active Multi Vitamin [...] as of this encounter (statuses as of 07/09/2023) Active Problems Problem Noted Date Diagnosed Date Wound dehiscence, surgical 06/15/2023 Postoperative wound infection 06/15/2023 Other iron deficiency anemias 05/22/2023 Postoperative anemia due to acute blood loss History of total knee arthroplasty, right 2022 Alcohol abuse 05/11/2023 Atherosclerosis of [place] co ronary artery without angina pectoris 09/10/2022 [...] as of this encounter (statuses as of 07/09/2023) Resolved Problems Problem Noted Date Diagnosed Date Resolved Date Atherosclerotic heart diseas e of [place] coronary artery with other forms of angina [...] as of this encounter (statuses as of 07/09/2023) Immunizations Name Administration Dates Next Due COVID-19 mRNA, LNP-s, No Pre serve, 2-Dose Series (PV Nano Cell) 05/16/2021,09/23/2020,08/26/2020 Covid-19, Mrna, Lnp-s, Pf, B ivalent, 30 Mcg, IM, 12 yrs and above (PV Nano Cell) 05/09/2022 Pneumococcal Conjugate Vacc, 13 Valent (Prevnar) [...] as of this encounter Progress Notes * Lety Forrest Alvarez, DO - 07/09/2023 9:45 AM EST ORTHOPAEDIC SURGERY - Post-Op Clinic Note SUBJECTIVE: Nenita Fleming is a 67 year old female. Chief Complaint Patient presents with Follow Up Right knee wound check HPI: She presents today 2 months out from right total knee arthroplasty with subsequent superficialwound dehiscence/infection. She underwent wound debridement on 06/17/2023. She is currently 3 weeksout from her wound debridement and doing well. She has initiated active range of motion and has not reported any issues with regard to her wound. She is ambulating with use of a cane on occasion. No reported fevers, chills or night sweats. Review of patient's allergies indicates: Allergen Reactions [...] (5mg) ALL OTHER EVENINGS OR DIRECTED BY [facility]. 105 Tablet 3 Multi Vitamin Daily Oral [...] medications for this visit. OBJECTIVE: Diagnostic studies: None today; clinical images were obtained demonstrating evidence of healed wound following suture removal - no evidence of wound dehiscence at 70 of flexion Vital Signs: There were no vitals taken for this visit. Physical Exam: Examination of the right knee reveals lower extremity dressing in place. This was removed. Sutures in place. There is no evidence of erythema or drainage. There is no odor. The incision is well approximated with good granulation tissue noted beneath a few superficial eschars. Patient is able to flex to at least 70 without evidence of separation. Sutures were removed without issue. Once again noevidence of dehiscence with knee flexion. She has good quad strength on straight leg raise. No calftenderness. No lower extremity edema. ASSESSMENT: Postoperative wound infection (Primary) Status post musculoskeletal system surgery Status post total right knee replacement - PHYSICAL THERAPY REFERRAL OP Follow Up: Return in about 1 month (around 08/09/2023). PLAN: She is doing well at this point following superficial wound debridement. Her incision is well approximated following suture removal. Mastisol and Steri- Strips were placed which may remain on for 1 week. Patient was instructed to remove accordingly. She may begin showering tomorrow. No tub bathing, pools or hot tubs. She may progress her range of motion as appropriate. She can initiate formal physical therapy on an outpatient basis. All questions answered. I would like to see her back for re-evaluation with repeat x-rays right knee before being seen in 1 month. She is to contact the office should issues arise in the interim. All questions answered. This chart was completed in part utilizing [employer] Speech Voice Recognition Software. Grammatical errors, random word insertions, pronoun errors, and incomplete sentences are an occasional consequence of this system due to software limitations, ambient noise, and hardware issues. Any formal questions or concerns about the content, text, or information contained within the body of this dictation should be directly addressed to the provider for clarification. Forrest Davidson DO 07/09/2023 9:45 AM documented in this encounter Nursing Notes * Medina Conde MED ASSIST - 07/09/2023 9:13 AM EST Pt presents today for follow up on right knee wound check. Pt states she is ready for suture removal. documented in this encounter Plan of Treatment Upcoming Encounters Date Type Department Care Team (Late st Contact Info) Description 07/10/2023 6:15 AM EST Anticoagulation Pharmacy Call Center WB [address] [facility] [place] [address] [facility] 58 60 [facility] [place] [address] 08/13/2023 9:15 AM EST Office Visit Orthopaedics [facility] [address] [place] [address] Forrest Davidson DO [address] [place] [address] 09/30/2023 9:20 AM EDT Office Visit Family Practice [facility] 200 [facility] [place] [address] Shiva Rich III, MD 200 [facility] [place] [address] 10/01/2023 3:15 PM EDT Office Visit Hematology/Oncology [facility] 200 [facility] [place] [address] Efraín Leone MD 200 [facility] [place] [address] 11/12/2023 11:20 AM EDT Office Visit Dermatology [facility] 200 [facility] [place] [address] Margarita Figueredo PA-C 200 [facility] [place] [phone] 02/25/2024 9:30 AM EDT Imaging Radiology [address] 132 [facility] [place] [address] 04/21/2024 10:30 AM EDT Office Visit Sleep Disorders Ctr [facility] 132 [facility] [place] [phone] Viktoriya White CRNP 132 [facility] [place] [address] Scheduled Procedures Name Priority Associated Diagnoses Date/Ti me COLONOSCOPY FLEXIBLE PROXIMA L DIAGNOSTIC Recall History of colonic polyps Scheduled Referrals Name Type Priority Associated Diagnoses Orde r Schedule PHYSICAL THERAPY REFERRAL OP Referral Within 10 days (routine) Status post total right knee replacement Ordered: 07/09/2023 Health Maintenance Due Date Last Done Comments Hepatitis B (1 of 3 - Risk 3-dose series) 2014 Depression Screening 06/24/2020 06/24/2019 Diabetic Foot Exam 01/31/2023 01/31/2022, 0 12/31/2020, 06/24/2019, Additional history exists COVID-19 Vaccine (2022-24 season) 2023 05/09/2022, 05/16/2021, 09/23/2020, Additional history [...] this encounter Medical Devices Implanted Type Area Data Control Assistant Device Identifier Shelf Expiration Date Model / Serial / Lot Knee X3 Ins Pos Cs Sz4 11 - Sn/A - [id number] Implanted:Qty: 1 on 05/11/2023 by Forrest Davidson, at OR [facility] Right: Knee FRANNIE : ORTHOPAEDICS 10/16/2027 [id number] / N/A / [id number] documented as of this encounter Visit Diagnoses Diagnosis Postoperative wound infection- Primary Other postoperative infection Status post musculoskeletal system surgery Status post total right knee replacement documented in this encounter Advance Directives Latest [...] Advance Directives occurred with: Patient Care Teams Liberal Arts Teacher Relationship Specialty Start Date End Date Shiva Rich III, MD 200 [facility] [place] [address] PCP - General Family Medicine 09/10/18 documented as of this encounter
--- OUTSIDE RECORDS SUMMARY | 2023-07-14 14:32 | External Medical Summary | Summary of Care ---
Author Name Unknown Organization [facility] Address [address] [facility] [place] [address] Phone [phone] Care Team Providers Care Care Aide Name Role Phone Hilario ANDRADE MD, Shiva Kebede Primary Care Provider [phone] Reason for Visit * Reason Onset Date Comments Home Health 07/03/2023 Encounter Details Date Type Department Care Team (Late st Contact Info) Description 07/03/2023 Telephone Orthopaedics [facility] [address] [place] [address] Forrest Davidson, [address] [place] [address] Home Health Allergies Active Allergy Reactions Criticality Noted Date [...] (5mg) ALL OTHER EVENINGS OR DIRECTED BY [facility]. 105 Tablet 3 07/18/2022 Active Multi [...] right 2022 Alcohol abuse 05/11/2023 Atherosclerosis of [place] co ronary artery without angina pectoris 09/10/2022 [...] Resolved Date Atherosclerotic heart diseas e of [place] coronary artery with other forms of angina [...] mRNA, LNP-s, No Pre serve, 2-Dose Series (The X Train) 05/16/2021,09/23/2020,08/26/2020 Covid-19, Mrna, Lnp-s, Pf, B ivalent, [...] No 06/15/2023 documented as of this encounter Miscellaneous Notes * Telephone Encounter - Medina Conde MED ASSIST - 07/03/2023 2:49 PM EST Called patient to let her know that Dr. Davidson is planning on starting out patient PT after next week's appointment. Patient voiced understanding on when she will possibly be starting. * Telephone Encounter - Camelia Stein OSA - 07/03/2023 11:06 AM EST Micaela from [facility] calling ph. [phone] Patient is being discharged from home therapy. Wanting to know about out patient PT and when she would be starting this. documented in this encounter Plan of Treatment Upcoming Encounters Date Type Department Care Team (Late st Contact Info) Description 07/09/2023 9:00 AM EST Office Visit [facility]opaedics [facility] [place] [address] Forrest Davidson, [address] [facility] [place] [address] 07/09/2023 9:30 AM EST Laboratory Laboratory, [facility] [phone] [facility] [address] [facility] [address] 07/10/2023 6:15 AM EST [facility] Call Center [address] [place] [address] [facility] 58 60 [place] [address] 09/30/2023 9:20 AM EDT Office Visit Family Practice [facility] [place] [address] [place] [address] [address] Shiva Rich III, MD [address] [place] [address] [address] 10/01/2023 3:15 PM EDT Office Visit Hematology/Oncology [facility] [place] [address] [place] [address] [address] Efraín Leone MD [address] [place] [address] [address] [address] 11/12/2023 11:20 AM EDT Office Visit Dermatology [facility] [place] [address] [place] [address] Margarita Figueredo PA-C [address] [place] [phone] 02/25/2024 9:30 AM EDT Imaging Radiology [address] [place] [address] 04/21/2024 10:30 AM EDT Office Visit Sleep Disorders Ctr [facility] [address] [place] [phone] Viktoriya White CRNP [address] [place] [address] Scheduled Procedures Name Priority Associated Diagnoses Date/Ti [...] this encounter Medical Devices Implanted Type Area Animal Therapist Device Identifier Shelf Expiration Date Model / Serial / Lot Knee X3 Ins Pos Cs Sz4 11 - Sn/A - [id number] Implanted:Qty: 1 on 05/11/2023 by Forrest Davidson, DO at OR [facility] Right: Knee FRANNIE : ORTHOPAEDICS 10/16/2027 [id number] / N/A / [id number] documented as of this encounter Advance Directives Latest Code Status [...] Advance Directives occurred with: Patient Care Teams Care Aide Relationship Specialty Start Date End Date Shiva Rich III, MD [address] [place] [address] PCP - General Family Medicine 09/10/18 documented as of this encounter
--- OUTSIDE RECORDS SUMMARY | 2023-07-14 14:32 | External Medical Summary | Summary of Care ---
Author Name Unknown Organization [facility] Address [address] [facility] [place] [address] Phone [phone] Care Team Providers Care Junior Designer Name Role Phone Hilario ANDRADE MD, Shiva Kebede Primary Care Provider [phone] Encounter Details Date Type Department Care Team (Late st Contact Info) Description 07/13/2023 Patient Reported Data Patient Survey Ortho [facility] Allergies Active Allergy Reactions Criticality Noted Date Comments Bee Venom Edema Other 01/10/2016 Lisinopril Cough 09/04/2016 documented as of this encounter (statuses as of 07/13/2023) Medications Medication Sig Dispensed Refills Start Date [...] (5mg) ALL OTHER EVENINGS OR DIRECTED BY [facility]. 105 Tablet 3 07/18/2022 Active Multi [...] as of this encounter (statuses as of 07/13/2023) Active Problems Problem Noted Date Diagnosed Date Wound dehiscence, surgical 06/15/2023 Postoperative wound infection 06/15/2023 Other iron deficiency anemias 05/22/2023 Postoperative anemia due to acute blood loss History of total knee arthroplasty, right 2022 Alcohol abuse 05/11/2023 Atherosclerosis of [place] co ronary artery without angina pectoris 09/10/2022 [...] as of this encounter (statuses as of 07/13/2023) Resolved Problems Problem Noted Date Diagnosed Date Resolved Date Atherosclerotic heart diseas e of [place] coronary artery with other forms of angina [...] as of this encounter (statuses as of 07/13/2023) Immunizations Name Administration Dates Next Due COVID-19 mRNA, LNP-s, No Pre serve, 2-Dose Series ([employer]) 05/16/2021,09/23/2020,08/26/2020 Covid-19, Mrna, Lnp-s, Pf, B ivalent, [...] No 06/15/2023 documented as of this encounter Plan of Treatment Upcoming Encounters Date Type Department Care Team (Late st Contact Info) Description 07/23/2023 9:30 AM EST [facility] [address] [phone] Wilfredo Gambino [facility] [place] [address] 07/24/2023 6:15 AM EST Anticoagulation Pharmacy Call Center WB [address] [facility] [place] [address] [facility] 58 60 [facility] [place] [address] 08/13/2023 9:15 AM EST [facility] 132 [facility] [place] [address] Forrest Davidson, [address] [place] [address] 09/30/2023 9:20 AM EDT Office Visit Family Practice [facility] [address] [place] [address] Shiva Rich III, MD 200 [facility] [place] [address] 10/01/2023 3:15 PM EDT Office Visit Hematology/Oncology [facility] [address] [place] [address] Efraín Leone MD 200 [facility] [place] [address] 11/12/2023 11:20 AM EDT Office Visit Dermatology [facility] [address] [place] [address] Margarita Figueredo PA-C 200 [facility] [place] [phone] 02/25/2024 9:30 AM EDT Imaging Radiology [address] 132 [facility] [place] [address] 04/21/2024 10:30 AM EDT Office Visit [facility] 132 [facility] [place] [phone] Viktoriya White CRNP [address] [place] [address] Scheduled Procedures Name Priority Associated Diagnoses Date/Ti [...] this encounter Medical Devices Implanted Type Area Manager Pet Device Identifier Shelf Expiration Date Model / Serial / Lot Knee X3 Ins Pos Cs Sz4 11 - Sn/A - [id number] Implanted:Qty: 1 on 05/11/2023 by Forrest Davidson, DO at OR [facility] Right: Knee FRANNIE : ORTHOPAEDICS 10/16/2027 [...] Advance Directives occurred with: Patient Care Teams Junior Designer Relationship Specialty Start Date End Date Shiva Rich III, MD 200 [place] [address] PCP - General Family Medicine 09/10/18 documented as of this encounter
--- OUTSIDE RECORDS SUMMARY | 2023-07-14 14:32 | External Medical Summary ---
Author Name Unknown Address Unknown Organization [id number]:LAB[facility]ATORY [facility] [place] - [address] [place] [address] Laboratory Report Ordering Provider Test Date Status ALMA PORTILLO 07/09/2023 10:00:46 Final Discharge Order Observation Date Value Abnormality Reference (Units ) Status CRP, low-sensitivity 07/09/2023 10:00:46 <3 <=5 (mg/L) Final Performing Location LABORATORY [facility] - [address] [facility] [address]
--- OUTSIDE RECORDS SUMMARY | 2023-07-14 14:32 | External Medical Summary | Summary of Care ---
Author Name Unknown Organization [facility] Address [address] [facility] [place] [address] Phone [phone] Care Team Providers Care Driver Guard Name Role Phone Hilario ANDRADE MD, Shiva Kebede Primary Care Provider [phone] Reason for Visit * Reason Comments Outpatient Testing Encounter Details Date Type Department Care Team (Late st Contact Info) Description 07/09/2023 9:30 AM EST Laboratory Laboratory, [facility] 132 [place] [phone] [facility] 132 [place] [address] Paroxysmal atrial fibrillation (HCC); Postoperative wound infection; Dyslipidemia, goal LDL below 70; Encounter for long-term (current) use of medications Allergies Active Allergy Reactions Criticality Noted Date [...] (5mg) ALL OTHER EVENINGS OR DIRECTED BY [facility]. 105 Tablet 3 07/18/2022 Active Multi [...] right 2022 Alcohol abuse 05/11/2023 Atherosclerosis of [place] co ronary artery without angina pectoris 09/10/2022 [...] Resolved Date Atherosclerotic heart diseas e of [place] coronary artery with other forms of angina [...] mRNA, LNP-s, No Pre serve, 2-Dose Series ([employer]) 05/16/2021,09/23/2020,08/26/2020 Covid-19, Mrna, Lnp-s, Pf, B ivalent, [...] Anticoagulation Pharmacy Call Center WB [address] [place] [address] [facility] 58 60 [facility] [place] [address] 08/13/2023 9:15 AM EST Office Visit Orthopaedics [facility] [address] [place] [address] Forrest Davidson, [address] [place] [address] 09/30/2023 9:20 AM EDT Office Visit Family Practice [facility] [address] [place] [address] Shiva Rich III, MD [address] [place] [address] 10/01/2023 3:15 PM EDT Office Visit Hematology/Oncology [facility] [address] [place] [address] Efraín Leone MD 200 [facility] [place] [address] 11/12/2023 11:20 AM EDT Office Visit Dermatology [facility] [address] [place] [address] Margarita Figueredo PA-C 200 [facility] [place] [phone] 02/25/2024 9:30 AM EDT Imaging Radiology [address] [place] [address] 04/21/2024 10:30 AM EDT Office Visit Sleep Disorders Ctr [facility] [address] [place] [phone] Viktoriya White CRNP [address] [place] [address] Pending Results Name Type Priority Associated Diagnoses Date /Time PT INR Lab Routine Paroxysmal atrial fibrillation (HCC) 07/09/2023 10:00 AM EST CBC WITH WBC DIFFERENTIAL Lab Routine Postoperative wound infection 07/09/2023 10:00 AM EST CRP (INFLAMMATORY MARKER) Lab Routine Postoperative wound infection 07/09/2023 10:00 AM EST LIPID PANEL WITH DIRECT LDL IF TG IS HIGH Lab Routine Dyslipidemia, goal LDL below 70 Encounter for long-term (current) use of medications 07/09/2023 10:00 AM EST CBC Lab Routine Postoperative wound infection 07/09/2023 10:00 AM EST DIFFERENTIAL, AUTOMATED Lab Routine Postoperative wound infection 07/09/2023 10:00 AM EST Scheduled Procedures Name Priority Associated Diagnoses [...] 08/17/2020, Additional history exists HbA1c 11/03/2023 05/04/2023, 08/07/2022, 09/10/2022, Additional history exists Albumin/Creatinine Ratio 02/18/2024 02/17/2023, 01/17 Mammogram 02/24/2024 02/23/2023, 05/20, 03/06/2022, Additional history exists COLONOSCOPY-EVERY 3 YRS AGES 18-100 04/11/2024 04/11/2021, 03/16/2019, 02/16/2018, Additional history exists B-12 04/16/2024 04/16/2023, 08/07/2022, 10/06/2022, Additional history exists GFR 06/19/2024 06/19/2023, [...] this encounter Medical Devices Implanted Type Area Beef Selector Device Identifier Shelf Expiration Date Model / Serial / Lot Knee X3 Ins Pos Cs Sz4 11 - Sn/A - [id number] Implanted:Qty: 1 on 05/11/2023 by Forrest Davidson, DO at OR [facility] Right: Knee FRANNIE : ORTHOPAEDICS 10/16/2027 [id number] / N/A / [id number] documented as of this encounter Visit Diagnoses Diagnosis Paroxysmal atrial fibrillation (HCC) Atrial fibrillation Postoperative wound infection Other postoperative infection Dyslipidemia, goal LDL below 70 Other and unspecified hyperlipidemia Encounter for long-term (current) use of medications Encounter for long-term (current) use of other medications documented in this encounter Advance Directives Latest [...] Advance Directives occurred with: Patient Care Teams Driver Guard Relationship Specialty Start Date End Date Shiva Rich III, MD [address] [place] [address] PCP - General Family Medicine 09/10/18 documented as of this encounter
--- OUTSIDE RECORDS SUMMARY | 2023-07-14 14:32 | External Medical Summary ---
Author Name Unknown Address Unknown Organization [id number]:[facility]ORY [facility] [address] - [address] [place] [address] Laboratory Report Ordering Provider Test Date Status INDER KINCAID 07/09/2023 10:00:46 Final Standing order for pt/inr. < br/>Please draw pt/inr every 1 to 4 weeks as requested
Results to [facility]

Warfarin Therapy
INR: 2.0-3.0 conventional anticoagulation
INR: 2.5-3.5 high intensity anticoagulation Observation Date Value Abnormality Reference (Units ) Status PT 07/09/2023 10:00:46 33.0 Above high normal 11 .6-15.2 (seconds) Final INR 07/09/2023 10:00:46 3.2 Above high normal 0. 8-1.2 Final Performing Location LAB[facility]ATORY [facility] [address] - [address] [place] [address]
--- OUTSIDE RECORDS SUMMARY | 2023-07-14 14:32 | External Medical Summary ---
Author Name Unknown Address Unknown Organization [id number]:LABORATORY [facility] [place] [address] [place] [address] Laboratory Report Ordering Provider Test Date Status ALMA PORTILLO 07/09/2023 10:00:46 Final Discharge Order Observation Date Value Abnormality Reference (Units ) Status WBC, Total 07/09/2023 10:00:46 6.43 4.00-10.8 0 (K/uL) Final RBC 07/09/2023 10:00:46 3.49 3.85-5.15 (M/uL) Final Hemoglobin 07/09/2023 10:00:46 10.0 Below low normal 12 .0-15.3 (g/dL) Final HCT 07/09/2023 10:00:46 31.9 Below low normal 36. 0-45.2 (%) Final MCV 07/09/2023 10:00:46 91.4 81.5-97.5 (fL) Final MCH 07/09/2023 10:00:46 28.7 27.0-34.0 (pg) Final MCHC 07/09/2023 10:00:46 31.3 32.0-36.0 (g/dL) Final RDW 07/09/2023 10:00:46 14.2 11.5-15.5 (%) Final Platelets 07/09/2023 10:00:46 307 140-400 (K /uL) Final MPV 07/09/2023 10:00:46 9.7 6.6-11.1 ( fL) Final Performing Location [facility]ORY [facility] [address] [place] [address]
--- OUTSIDE RECORDS SUMMARY | 2023-07-14 14:33 | External Medical Summary | Summary of Care ---
Author Name Unknown Organization [facility] Address [address] [facility] [place] [address] Phone [phone] Care Team Providers Care Pipeline Dispatch Operator Name Role Phone Hilario ANDRADE MD, Shiva Kebede Primary Care Provider [phone] Reason for Visit * Reason Onset Date Comments Home Health 06/22/2023 Appointment 06/22/2023 recall Encounter Details Date Type Department Care Team (Late st Contact Info) Description 06/22/2023 Telephone Family Practice [facility] [place] [address] [facility] [place] [address] Shiva Rich III, MD [address] [facility] [place] [address] Home Health; Appointment (recall) Allergies Active Allergy Reactions Criticality Noted Date Comments Bee Venom Edema Other 01/10/2016 Lisinopril Cough 09/04/2016 documented as of this encounter (statuses as of 06/26/2023) Medications Medication Sig Dispensed Refills Start Date [...] 1 Tablet before bedtime. 0 04/29/2022 Active Atorvastatin Calcium 80 MG Oral Tablet (Lipitor) TAKE 1 TABLET BY MOUTH EVERY DAY 90 Tablet 3 07/07/2022 Active Warfarin Sodium 5 MG Oral Tablet (Coumadin)Indications :Recent cerebrovascular accident (CVA),Paroxysmal atrial fibrillation (HCC) TAKE 1 1/2 TABLETS (7.5mg) BY MOUTH FRIDAYS AND 1 TABLET (5mg) ALL OTHER EVENINGS OR DIRECTED BY [facility]. 105 Tablet 3 07/18/2022 Active Multi Vitamin Daily Oral Tablet 0 Active Ezetimibe 10 MG Oral Tablet (Zetia)Indications:Ri ght internal carotid occlusion TAKE 1 TABLET BY [...] Oral Tablet Extended Release 24 Hour (toPROL XL)Indications:Paroxy smal atrial fibrillation (HCC) Take 1 Tablet by mouth in the morning. 90 Tablet 3 05/30/2023 Active Solifenacin Succinate 5 MG Oral Tablet (VESIcare) Take 1 Tablet by mouth in the morning. 30 Tablet 0 06/09/2023 Active Amiodarone HCl 200 MG Oral Tablet (Cordarone)Indication s:PAF (paroxysmal atrial fibrillation) (HCC) TAKE 1 TABLET BY MOUTH EVERY MORNING 90 Tablet 3 06/13/2023 Active Ciprofloxacin HCl 500 MG Oral Tablet (Cipro) Take 1 Tablet by mouth in the morning and 1 Tablet before bedtime - do all this for 7 days. 14 Tablet 0 06/19/2023 06/26/2023 Active Lactobacillus Oral Tablet Take 1 Tablet by mouth in the morning and 1 Tablet at noon and 1 Tablet in the evening - Take with meals - Do all this for 10 days. 30 Tablet 0 06/19/2023 06/29/2023 Active Sennosides 8.6 MG Oral Tablet (Senokot) Take 2 Tablets by mouth in the morning. 14 Tablet 0 06/20/2023 Active oxyCODONE-Acetaminoph en 5-325 MG Oral Tablet (Percocet) Take 1 Tablet by mouth every 6 hours as needed for Pain, Severe. 20 Tablet 0 06/19/2023 Active documented as of this encounter (statuses as of 06/26/2023) Active Problems Problem Noted Date Diagnosed Date Wound dehiscence, surgical 06/15/2023 Postoperative wound infection 06/15/2023 Other iron deficiency anemias 05/22/2023 Postoperative anemia due to acute blood loss History of total knee arthroplasty, right 2022 Alcohol abuse 05/11/2023 Atherosclerosis of [place] co ronary artery without angina pectoris 09/10/2022 [...] as of this encounter (statuses as of 06/26/2023) Resolved Problems Problem Noted Date Diagnosed Date Resolved Date Atherosclerotic heart diseas e of [place] coronary artery with other forms of angina [...] as of this encounter (statuses as of 06/26/2023) Immunizations Name Administration Dates Next Due COVID-19 mRNA, LNP-s, No Pre serve, 2-Dose Series (BondandDeni) 05/16/2021,09/23/2020,08/26/2020 Covid-19, Mrna, Lnp-s, Pf, B ivalent, 30 Mcg, IM, 12 yrs and above (BondandDeni) 05/09/2022 Pneumococcal Conjugate Vacc, 13 Valent (Prevnar) 12/21/2017 Pneumococcal Polysaccharide PPV23 (Pneumovax) 01/31/2022,11/19/2016 SEASONAL INFLUENZA, PF, 6 M & Above, IM , (FLULAVAL or FLUZONE) 04/13/2020,04/15/2019,04/26/2018,04/08 Seasonal Influenza, Quadriva lent Hd (Fluzone [...] encounter Miscellaneous Notes * Telephone Encounter - Dejah Garber OSA - 06/26/2023 9:37 AM EST Called patient and CX her 07/02/23 appointment with Kai as he has CME. I rescheduled her fpr 07-23-23 at 10:30AM. I left her a detailed message to call if this does not work. * Telephone Encounter - Venus Jones DO - 06/23/2023 1:00 PM EST Noted, thank you, will forward to PCP * Telephone Encounter - Sandra Merida LPN - 06/22/2023 2:35 PM EST EBONIE Hinojosa from [facility] HH is returning phone call. Reports that the pt is not checking her blood sugar. Wants to make PCP aware of this and asks if PCP is ok with the pt not checking her BSG or should the pt be checking this? Please advise. * Telephone Encounter - Dyana Santos LPN - 06/22/2023 2:27 PM EST HH Concerns micaela RN, Calling from: [facility] Report/Concerns of: wound care order for right knee Symptoms: none Narrative: Micaela needs wound care orders for right knee. The only has order briehas for the knee is to wear the immobilizer. She left the current dressing intact for future HH visits she will need order for the wound. Micaela indicated these orders would come from Ortho. Message sent to ortho nurse pool. She also has multiple med interactions to report to PCP. Amiodarone and warfain Warfarin and duloxetine She does not have reaction from her system only both are severity level 2. She also has warning for multiple meds prescribed for overactive bladder. Call back [facility] intake with any advice or orders at [phone] Please fax new orders to [phone] (Wound [place]) documented in this encounter Plan of Treatment Upcoming Encounters Date Type Department Care Team (Late st Contact Info) Description 06/26/2023 6:00 PM EST Anticoagulation Pharmacy Call Center [facility] [phone] Public [place] [address] [facility], [facility] 58 60 [facility] [place] [address] 07/23/2023 10:30 AM EST Office Visit Orthopaedics [facility] [address] [facility] [place] [address] Balta Hyde PA-C [address] [place] [address] [place] [address] 09/30/2023 9:20 AM EDT Office Visit Family Practice [facility] [address] [place] [address] [place] [address] Shiva Rich III, MD [address] [facility] [place] [address] 10/01/2023 3:15 PM EDT Office Visit Hematology/Oncology [facility] [place] [address] [place] [address] [address] Efraín Leone MD [address] [facility] [place] [address] 11/12/2023 11:20 AM EDT Office Visit Dermatology [facility] [address] [place] [address] Margarita Figueredo PA-C [address] [facility] [place] [phone] 02/25/2024 9:30 AM EDT Imaging Radiology [facility] [facility] [address] [facility] [place] [address] 04/21/2024 10:30 AM EDT Office Visit Sleep Disorders Ctr [facility] [address] [place] [phone] Viktoriya White CRNP [address] [place] [address] Scheduled Procedures Name Priority Associated Diagnoses Date/Ti [...] this encounter Medical Devices Implanted Type Area Business Trainer Device Identifier Shelf Expiration Date Model / Serial / Lot Knee X3 Ins Pos Cs Sz4 11 - Sn/A - [id number] Implanted:Qty: 1 on 05/11/2023 by Forrest Davidson, DO at OR [facility] Right: Knee FRANNIE : ORTHOPAEDICS 10/16/2027 [id number] [...] Advance Directives occurred with: Patient Care Teams Pipeline Dispatch Operator Relationship Specialty Start Date End Date Shiva Rich III, MD [address] [place] [address] PCP - General Family Medicine 09/10/18 documented as of this encounter
--- OUTSIDE RECORDS SUMMARY | 2023-07-14 14:33 | External Medical Summary ---
Author Name Unknown Address Unknown Organization K01:LABORATORY [facility] - [address] [place] [address] Laboratory Report Ordering Provider Test Date Status ALMA PORTILLO 06/25/2023 10:14:52 Final Observation Date Value Abnormality Reference (Units ) Status CRP, low-sensitivity 06/25/2023 10:14:52 <3 <=5 (mg/L) Final Performing Location [facility] - [address] [facility] [address]
--- OUTSIDE RECORDS SUMMARY | 2023-07-14 14:33 | External Medical Summary | Summary of Care ---
Author Name Unknown Organization [facility] Address [address] [facility] [place] [address] Phone [phone] Care Team Providers Care Purchasing And Claims Supervisor Name Role Phone Hilario ANDRADE MD, Shiva Kebede Primary Care Provider [phone] Reason for Visit * Reason Comments Follow Up Right knee wound wilmar ck Encounter Details Date Type Department Care Team (Latest Contact Info) Description 06/25/2023 9:15 AM EST Office Visit Orthopaedics [facility] [address] [place] [address] Forrest Davidson, [address] [place] [address] Status post musculoskeletal system surgery*; Status post total right knee replacement; Postoperative wound infection Allergies Active Allergy Reactions Criticality Noted Date Comments Bee Venom Edema Other 01/10/2016 Lisinopril Cough 09/04/2016 documented as of this encounter (statuses as of 06/25/2023) Medications Medication Sig Dispensed Refills Start Date [...] (5mg) ALL OTHER EVENINGS OR DIRECTED BY [facility]. 105 Tablet 3 07/18/2022 Active Multi Vitamin [...] as of this encounter (statuses as of 06/25/2023) Active Problems Problem Noted Date Diagnosed Date Wound dehiscence, surgical 06/15/2023 Postoperative wound infection 06/15/2023 Other iron deficiency anemias 05/22/2023 Postoperative anemia due to acute blood loss History of total knee arthroplasty, right 2022 Alcohol abuse 05/11/2023 Atherosclerosis of [place] co ronary artery without angina pectoris 09/10/2022 [...] as of this encounter (statuses as of 06/25/2023) Resolved Problems Problem Noted Date Diagnosed Date Resolved Date Atherosclerotic heart diseas e of [place] coronary artery with other forms of angina [...] as of this encounter (statuses as of 06/25/2023) Immunizations Name Administration Dates Next Due COVID-19 mRNA, LNP-s, No Pre serve, 2-Dose Series (Unbound) 05/16/2021,09/23/2020,08/26/2020 Covid-19, Mrna, Lnp-s, Pf, B ivalent, 30 Mcg, IM, 12 yrs and above (Unbound) 05/09/2022 Pneumococcal Conjugate Vacc, 13 Valent (Prevnar) [...] Progress Notes * Forrest Davidson, DO - 06/25/2023 9:56 AM EST ORTHOPAEDIC SURGERY - Post-Op Clinic Note SUBJECTIVE: Nenita Fleming is a 67 year old female. Chief Complaint Patient presents with Follow Up Right knee wound check HPI: She presents today with her for postoperative wound evaluation after right knee wound debridement with incisional VAC application on 06/17/2023. She underwent previous right total knee arthroplasty on 05/11/2023. She subsequently developed a postoperative wound with associated dehiscenc e/infection which was superficial. Following recent debridement, she has done well. She was discharged from the hospital on 06/19/2023 with a Primaseal dressing. She has been followed by home nursingfor wound evaluation and lab draws unfortunately reports no recent dressing change or evaluation. No reported fevers, chills or night sweats. She reports having a few pills left of her antibiotic. Review of patient's allergies indicates: Allergen Reactions [...] in the morningand 1 Tablet before bedtime. Atorvastatin Calcium 80 MG Oral Tablet (Lipitor) TAKE 1 TABLET BY MOUTH EVERY DAY 90 Tablet 3 Warfarin Sodium 5 MG Oral Tablet (Coumadin) TAKE 1 1/2 TABLETS (7.5mg) BY MOUTH FRIDAYS AND 1 TABLET (5mg) ALL OTHER EVENINGS OR DIRECTED BY [facility]. 105 Tablet 3 Multi Vitamin [...] BY MOUTH EVERY MORNING 90 Tablet 3 Ciprofloxacin HCl 500 MG Oral Tablet (Cipro) Take 1 Tablet by mouth in the morning and 1 Tablet before bedtime - do all this for 7 days. 14 Tablet 0 Lactobacillus Oral Tablet Take 1 Tablet by mouth in the morning and 1 Tablet at noon and 1 Tablet in the evening - Take with meals - Do all this for 10 days. 30 Tablet 0 Sennosides 8.6 MG Oral Tablet (Senokot) Take 2 Tablets by mouth in the morning. 14 Tablet 0 oxyCODONE-Acetaminophen 5-325 MG Oral Tablet (Percocet) Take 1 Tablet by mouth every 6 hours as needed for Pain, Severe. 20 Tablet 0 No current facility-administered medications for this visit. OBJECTIVE: Diagnostic studies: None to Vital Signs: There were no vitals taken for this visit. Physical Exam: Examination of the right knee reveals lower extremity compressive wrap in place with knee immobilizer. She has evidence of loss of the adhesive along the superior aspect of the Primaseal. Some degreeof exposed incision was noted. There is no evidence of erythema or drainage. No odor. Incision is well approximated. Areas of resolving ecchymosis noted. She has intact straight leg raise. No calf tenderness. No lower extremity edema. ASSESSMENT: Status post musculoskeletal system surgery (Primary) - CRP (INFLAMMATORY MARKER); Future; Expected date: 06/26/2023 - PT INR; Future; Expected date: 06/26/2023 Status post total right knee replacement Postoperative wound infection Follow Up: Return in about 1 week (around 07/02/2023). PLAN: She is doing well following her recent right knee superficial wound debridement following postoperative wound dehiscence and infection. Her dressing was sterilely change in the office today. The wound was cleansed with Betadine swab as well as peroxide. Area was dried and a sterile dressing to consist of 4x4s and bordered gauze was placed. She was then placed in a lower extremity compressive dressing to consist of Webril and Lito wraps. This was followed by placement of her knee immobilizer. I would like to see her back in 1 more week for re-evaluation of her wound and x-rays of the right knee. She is to maintain knee extension at all times with the knee immobilizer in place until her follow- up appointment. We will likely initiate range of motion at her next visit. We will potentially consider suture removal but most likely at the 3 week trey. She will continue with home health for woundevaluation and dressing changes. She will obtain lab testing today. I would like her to continue elevation. I will see her back in 1 week. All questions were answered her satisfaction. This chart was completed in part utilizing [email or web address] Speech Voice Recognition Software. Grammatical errors, random word insertions, pronoun errors, and incomplete sentences are an occasional consequence of this system due to software limitations, ambient noise, and hardware issues. Any formal questions or concerns about the content, text, or information contained within the body of this dictation should be directly addressed to the provider for clarification. Forrest Davidson DO 06/25/2023 9:56 AM documented in this encounter Nursing Notes * Medina Conde MED ASSIST - 06/25/2023 9:20 AM EST Pt presents today for follow up right TKA, wound check. DOS 05/11/23. Pt states home health has notchecked the wound. documented in this encounter Plan of Treatment Upcoming Encounters Date Type Department Care Team (Late st Contact Info) Description 06/26/2023 6:00 PM EST Anticoagulation Pharmacy Call Center [address] [place] [address] [facility] 58 60 [facility] [place] [address] 07/02/2023 11:00 AM EST Office Visit Orthopaedics [facility] 132 [facility] [place] [address] Balta Hyde PA-C [address] [place] [address] [place] [address] 09/30/2023 9:20 AM EDT Office Visit Family Practice [facility] [address] [place] [address] Shiva Rcih III, MD [address] [facility] [place] [address] 10/01/2023 3:15 PM EDT Office Visit Hematology/Oncology [facility] [place] [address] [place] [address] Efraín Leone MD 200 [place] [address] 11/12/2023 11:20 AM EDT Office Visit Dermatology [facility] [address] [place] [address] Margarita Figueredo PA-C [address] [facility] [place] [phone] 02/25/2024 9:30 AM EDT Imaging Radiology [facility] 132 [facility] [place] [address] 04/21/2024 10:30 AM EDT Office Visit Sleep Disorders Ctr [address] [place] [phone] Viktoriya White CRNP 132 [facility] [place] [address] Pending Results Name Type Priority Associated Diagnoses Date /Time CRP (INFLAMMATORY MARKER) Lab Routine Status post musculoskeletal system surgery 06/25/2023 10:14 AM EST PT INR Lab Routine Status post musculoskeletal system surgery 06/25/2023 10:14 AM EST Scheduled Orders Name Type Priority Associated Diagnoses Orde r Schedule CRP (INFLAMMATORY MARKER) Lab Routine Status post musculoskeletal system surgery Expected: 06/26/2023, Expires: 06/25/2024 PT INR Lab Routine Status post musculoskeletal system surgery Expected: 06/26/2023, Expires: 06/25/2024 Scheduled Procedures Name Priority Associated Diagnoses Date/Ti [...] this encounter Medical Devices Implanted Type Area Joint Supervisor Device Identifier Shelf Expiration Date Model / Serial / Lot Knee X3 Ins Pos Cs Sz4 11 - Sn/A - [id number] Implanted:Qty: 1 on 05/11/2023 by Forrest Davidson, at OR [facility] Right: Knee FRANNIE : ORTHOPAEDICS 10/16/2027 [id number] / N/A / [id number] documented as of this encounter Visit Diagnoses Diagnosis Status post musculoskeletal system surgery- Primary Status post total right knee replacement Postoperative wound infection Other postoperative infection documented in this encounter Advance Directives Latest [...] Advance Directives occurred with: Patient Care Teams Purchasing And Claims Supervisor Relationship Specialty Start Date End Date Shiva Rich III, MD [address] [place] [address] PCP - General Family Medicine 09/10/18 documented as of this encounter
--- OUTSIDE RECORDS SUMMARY | 2023-07-14 14:33 | External Medical Summary ---
Author Name Unknown Address Unknown Organization K0G:[facility] [address] [place] [address] Laboratory Report Ordering Provider Test Date Status INDER KINCAID 07/02/2023 14:29:23 Final Standing order for pt/inr. < br/>Please draw pt/inr every 1 to 4 weeks as requested
Results to [facility]

Warfarin Therapy
INR: 2.0-3.0 conventional anticoagulation
INR: 2.5-3.5 high intensity anticoagulation Observation Date Value Abnormality Reference (Units ) Status PT 07/02/2023 14:29:23 25.2 Above high normal 11 .6-15.2 (seconds) Final INR 07/02/2023 14:29:23 2.3 Above high normal 0. 8-1.2 Final Performing Location LABORATORY [facility] [address] [place] [address]
--- OUTSIDE RECORDS SUMMARY | 2023-07-14 14:33 | External Medical Summary | Summary of Care ---
Author Name Unknown Organization [facility] Address [address] [facility] [place] [address] Phone [phone] Care Team Providers Care Spark Plug Tester Name Role Phone Hilario ANDRADE MD, Shiva Kebede Primary Care Provider [phone] Reason for Visit * Reason Comments Dosage Adjustment Via Phone (anticoag Cl inic) Encounter Details Date Type Department Care Team (Latest Contact Info) Description 06/26/2023 6:00 PM EST Anticoagulation Pharmacy Call Center [phone] [place] [address] [facility], [facility] [address] [facility] [place] [address] Paroxysmal atrial fibrillation (HCC)* Allergies Active Allergy [...] (5mg) ALL OTHER EVENINGS OR DIRECTED BY [facility]. 105 Tablet 3 07/18/2022 Active Multi [...] right 2022 Alcohol abuse 05/11/2023 Atherosclerosis of [place] co ronary artery without angina pectoris 09/10/2022 [...] Resolved Date Atherosclerotic heart diseas e of [place] coronary artery with other forms of angina [...] mRNA, LNP-s, No Pre serve, 2-Dose Series ([employer]) 05/16/2021,09/23/2020,08/26/2020 Covid-19, Mrna, Lnp-s, Pf, B ivalent, 30 Mcg, IM, 12 yrs and above ([employer]) 05/09/2022 Pneumococcal Conjugate Vacc, 13 Valent (Prevnar) [...] as of this encounter Progress Notes * Mahendra Ruff, Fabby - 06/26/2023 11:06 AM EST Contacts Type Contact Phone/Fax 06/26/2023 11:05 AM EST Phone (Outgoing) Nenita Fleming (Self) [phone] (M) Left Message Subjective Advised patient to contact Anticoagulation Clinic if any unusual bruising or bleeding, recent illness, changes in medication, or questions/concerns. PT/INR results, Coumadin dose instructions, and next PT/INR date communicated as noted by Pharmacist: Yes Mahendra Ruff CPhT 06/26/2023, 11:06 AM * Nohelia Cortes RPh - 06/26/2023 10:17 AM EST Images from the original note were not included. Coumadin Clinic (region specific) Objective Current Warfarin Dose As of 06/26/2023 Warfarin maintenance plan: 7.5 mg (5 mg x 1.5) every Fri; 5 mg (5 mg x 1) all other days INR Result As of 06/26/2023 INR goal: 2.0-3.0 INR used for dosin.8 (06/25/2023) Assessment & Plan Warfarin Plan As of 06/26/2023 Full warfarin instructions: 06/26: 15 mg; Otherwise 7.5 mg every Fri; 5 mg all other days Next INR check: 07/02/2023 Repeat PT/INR in 1 week(s) Weekly dose: not changed Additional Dosing Information: Description Edson Gambino- pt prefers Thurs AMIODARONE started 04/28/22 Tech to contact patient with dose instructions as noted. Nohelia Cortes RPh 06/26/2023, 10:17 AM documented in this encounter Plan of Treatment Upcoming Encounters Date Type Department Care Team (Late st Contact Info) Description 07/02/2023 10:00 AM EST Laboratory Laboratory, Edson Gambino [address] [place] [address] Wilfredo Gambino 132 [facility] [place] [address] 07/03/2023 6:15 AM EST Anticoagulation Pharmacy Call Center WB [address] [place] [address] [facility], [facility] 58 60 [facility] [place] [address] 07/23/2023 10:30 AM EST Office Visit Orthopaedics [facility] [address] [facility] [place] [address] Balta Hyde PA-C [address] [place] [address] [place] [address] 09/30/2023 9:20 AM EDT Office Visit Family Practice [facility] [address] [place] [address] Shiva Rich III, MD [address] [place] [address] 10/01/2023 3:15 PM EDT Office Visit Hematology/Oncology [facility] [address] [place] [address] Efraín Leone MD 200 [facility] [place] [address] 11/12/2023 11:20 AM EDT Office Visit Dermatology [facility] [address] [place] [address] Margarita Figueredo PA-C [address] [place] [phone] 02/25/2024 9:30 AM EDT Imaging Radiology [facility] 1st [facility] 132 [facility] [place] [address] 04/21/2024 10:30 AM EDT Office Visit Sleep Disorders Ctr [facility] [address] [place] [phone] Viktoriya White CRNP [address] [place] [address] Scheduled Procedures Name Priority Associated Diagnoses Date/Ti [...] this encounter Medical Devices Implanted Type Area Kick Plate Installer Device Identifier Shelf Expiration Date Model / Serial / Lot Knee X3 Ins Pos Cs Sz4 11 - Sn/A - [id number] Implanted:Qty: 1 on 05/11/2023 by Forrest Davidson, DO at OR [facility] Right: Knee [...] Advance Directives occurred with: Patient Care Teams Spark Plug Tester Relationship Specialty Start Date End Date Shiva Rich III, MD 200 [place] [address] PCP - General Family Medicine 09/10/18 documented as of this encounter
--- OUTSIDE RECORDS SUMMARY | 2023-07-14 14:33 | External Medical Summary | Summary of Care ---
Author Name Unknown Organization [facility] Address [address] [place] [address] Phone [phone] Care Team Providers Care Copy Machine Operator Name Role Phone Hilario ANDRADE MD, Shiva Kebede Primary Care Provider [phone] Reason for Visit * Reason Onset Date Comments Appointment 06/23/2023 Recall Encounter Details Date Type Department Care Team (Late st Contact Info) Description 06/23/2023 Telephone Vascular Surg [facility] [address] [place] [address] Anibal Anglin MD [address] [place], [place] [id number] Appointment (Recall/) Allergies Active Allergy Reactions Criticality Noted Date [...] ALL OTHER EVENINGS OR DIRECTED BY [facility]. 105 Tablet 3 07/18/2022 [...] right 2022 Alcohol abuse 05/11/2023 Atherosclerosis of [place] co ronary artery without angina pectoris 09/10/2022 [...] Resolved Date Atherosclerotic heart diseas e of [place] coronary artery with other forms of angina [...] mRNA, LNP-s, No Pre serve, 2-Dose Series ([employer]) 05/16/2021,09/23/2020,08/26/2020 Covid-19, Mrna, Lnp-s, Pf, B ivalent, [...] encounter Miscellaneous Notes * Telephone Encounter - Jenny Cohen OSA - 06/26/2023 10:06 AM EST Sent letter rr * Telephone Encounter - Uma Castano OSA - 06/25/2023 3:01 PM EST Left message for patient to return call x 2 to make Carotid duplex then Dr. Anglin * Telephone Encounter - Jenny Cohen OSA - 06/23/2023 1:10 PM EST Return in 2 years with carotid duplex. Called and left message for patient to schedule her 2 year return rr documented in this encounter Plan of Treatment Upcoming Encounters Date Type Department Care Team (Late st Contact Info) Description 06/26/2023 6:00 PM EST Anticoagulation Pharmacy Call Center [address] [facility] [place] [address] [facility], [facility] 58 60 [facility] [place] [address] 07/23/2023 10:30 AM EST Office Visit Orthopaedics [facility] 132 [facility] [place] [address] Balta Hyde PA-C [address] [place] [address] [place] [address] 09/30/2023 9:20 AM EDT Office Visit Family Practice [facility] [address] [place] [address] Shiva Rich III, MD 200 [facility] [place] [address] 10/01/2023 3:15 PM EDT Office Visit Hematology/Oncology [facility] [place] 200 [facility] [place] [address] Efraín Leone MD [address] [place] [address] 11/12/2023 11:20 AM EDT Office Visit Dermatology [facility] [place] [address] [place] [address] Margarita Figueredo PA-C [address] [place] [phone] 02/25/2024 9:30 AM EDT Imaging Radiology [address] [facility] [place] [address] 04/21/2024 10:30 AM EDT Office Visit Sleep Disorders Ctr [facility] 132 [facility] [place] [phone] Viktoriya White CRNP [address] [place] [address] Scheduled Procedures Name Priority Associated Diagnoses Date/Ti [...] this encounter Medical Devices Implanted Type Area Sheet Tester Device Identifier Shelf Expiration Date Model / Serial / Lot Knee X3 Ins Pos Cs Sz4 11 - Sn/A - [id number] Implanted:Qty: 1 on 05/11/2023 by Forrest Davidson, DO at OR [facility] Right: Knee [employer]ANNIE : ORTHOPAEDICS 10/16/2027 [id number] [...] Advance Directives occurred with: Patient Care Teams Copy Machine Operator Relationship Specialty Start Date End Date Shiva Rich III, MD 200 [place] [address] PCP - General Family Medicine 09/10/18 documented as of this encounter
--- OUTSIDE RECORDS SUMMARY | 2023-07-14 14:33 | External Medical Summary | Summary of Care ---
Author Name Unknown Organization [facility] Address [address] [facility] [place] [address] Phone [phone] Care Team Providers Care Commercial Sales Representative Name Role Phone Hilario ANDRADE MD, Collette Kebede Primary Care Provider [phone] Reason for Visit * Reason Comments eRx-Medication Refill Encounter Details Date Type Department Care Team (Late st Contact Info) Description 06/29/2023 Refill Family Practice [facility] [place] 200 [facility] [place] [address] Collette Mello III, MD 200 [place] [address] Dyslipidemia, goal LDL below 70*; Encounter for long-term (current) use of medications Allergies Active Allergy Reactions Criticality Noted Date Comments Bee Venom Edema Other 01/10/2016 Lisinopril Cough 09/04/2016 documented as of this encounter (statuses as of 06/29/2023) Medications Medication Sig Dispensed Refills Start Date End Date Status oxygen IN GAS 3 LPM bled through CPAP 14 cwp 1 Each 0 0 Active Aspirin EC 81 MG Oral Tablet Delayed Release Take by mouth 1 Tablet in the morning. 0 2 Active Magnesium Chloride 64 MG Oral Tablet Delayed Release (Mag-64) Take 1 Tablet by mouth in the morning and 1 Tablet before bedtime. 0 2 Active Warfarin Sodium 5 MG Oral Tablet (Coumadin)Indication s:Recent cerebrovascular accident (CVA),Paroxysmal atrial fibrillation (HCC) TAKE 1 1/2 TABLETS (7.5mg) BY MOUTH FRIDAYS AND 1 TABLET (5mg) ALL OTHER EVENINGS OR DIRECTED BY [facility]. 105 Tablet 3 2 Active Multi Vitamin Daily Oral Tablet 0 Active Ezetimibe 10 MG Oral Tablet (Zetia)Indications:R ight internal carotid occlusion TAKE 1 TABLET BY MOUTH EVERY DAY 90 Tablet 3 3 Active Ferrous Sulfate 325 (65 Fe) MG Oral Tablet Take 1 Tablet by mouth every other day. 0 Active Furosemide 40 MG Oral Tablet (Lasix) TAKE 1 TABLET BY MOUTH EVERY MORNING 30 Tablet 6 3 Active DULoxetine HCl 60 MG Oral Capsule Delayed Release Particles (Cymbalta) TAKE 2 CAPSULES BY MOUTH EVERY MORNING 180 Capsule 2 3 Active Myrbetriq 50 MG Oral Tablet Extended Release 24 Hour (Mirabegron ER) Take 1 Tablet by mouth in the morning. 90 Tablet 3 3 Active Losartan Potassium 100 MG Oral Tablet (Cozaar) Take 1 Tablet by mouth in the morning. 90 Tablet 1 3 Active Cyanocobalamin 1000 MCG Oral Tablet (Cyanocobalamin) Take 1 Tablet by mouth in the morning. 100 Tablet 3 3 Active metFORMIN HCl 500 MG Oral Tablet (Glucophage) TAKE 2 TABLETS BY MOUTH TWO TIMES DAILY WITH MORNING AND EVENING MEALS. 360 Tablet 1 3 Active amLODIPine Besylate 5 MG Oral Tablet (Norvasc) Take 1 Tablet by mouth in the morning. 34 Tablet 11 3 Active CPAP every night at bedtime. 0 Active Cephalexin 500 MG Oral Capsule Take 1 Capsule by mouth in the morning and 1 Capsule at noon and 1 Capsule in the evening and 1 Capsule before bedtime. 28 Capsule 0 3 Active Metoprolol Succinate ER 25 MG Oral Tablet Extended Release 24 Hour (toPROL XL)Indications:Parox ysmal atrial fibrillation (HCC) Take 1 Tablet by mouth in the morning. 90 Tablet 3 3 Active Solifenacin Succinate 5 MG Oral Tablet (VESIcare) Take 1 Tablet by mouth in the morning. 30 Tablet 0 3 Active Amiodarone HCl 200 MG Oral Tablet (Cordarone)Indicatio ns:PAF (paroxysmal atrial fibrillation) (HCC) TAKE 1 TABLET BY MOUTH EVERY MORNING 90 Tablet 3 3 Active Lactobacillus Oral Tablet Take 1 Tablet by mouth in the morning and 1 Tablet at noon and 1 Tablet in the evening - Take with meals - Do all this for 10 days. 30 Tablet 0 3 06/29/20 23 Active Sennosides 8.6 MG Oral Tablet (Senokot) Take 2 Tablets by mouth in the morning. 14 Tablet 0 3 Active oxyCODONE-Acetaminop hen 5-325 MG Oral Tablet (Percocet) Take 1 Tablet by mouth every 6 hours as needed for Pain, Severe. 20 Tablet 0 3 Active Atorvastatin Calcium 80 MG Oral Tablet (Lipitor) TAKE 1 TABLET BY MOUTH EVERY DAY 90 Tablet 1 3 Active Atorvastatin Calcium 80 MG Oral Tablet (Lipitor) TAKE 1 TABLET BY MOUTH EVERY DAY 90 Tablet 3 2 06/29/20 23 Discontinued documented as of this encounter (statuses as of 06/29/2023) Active Problems Problem Noted Date Diagnosed Date Wound dehiscence, surgical 06/15/2023 Postoperative wound infection 06/15/2023 Other iron deficiency anemias 05/22/2023 Postoperative anemia due to acute blood loss History of total knee arthroplasty, right 2022 Alcohol abuse 05/11/2023 Atherosclerosis of [place] co ronary artery without angina pectoris 09/10/2022 [...] as of this encounter (statuses as of 06/29/2023) Resolved Problems Problem Noted Date Diagnosed Date Resolved Date Atherosclerotic heart diseas e of [place] coronary artery with other forms of angina [...] as of this encounter (statuses as of 06/29/2023) Immunizations Name Administration Dates Next Due COVID-19 mRNA, LNP-s, No Pre serve, 2-Dose Series ([employer]) 05/16/2021,09/23/2020,08/26/2020 Covid-19, Mrna, Lnp-s, Pf, B ivalent, 30 Mcg, IM, 12 yrs and above ([employer]) 05/09/2022 Pneumococcal Conjugate Vacc, 13 Valent (Prevnar) [...] encounter Miscellaneous Notes * Telephone Encounter - Gina Underwood [facility] - 06/29/2023 4:37 PM EST Signed Prescriptions: Disp Refills Atorvastatin Calcium 80 MG Oral Tablet (Li*90 Tab*1 Sig: TAKE 1 TABLET BY MOUTH EVERY DAYAuthorizing Provider: COLLETTE MELLO III User: GINA UNDERWOOD * Telephone Encounter - Gina Underwood RPh - 06/29/2023 4:35 PM EST Patient has office visit scheduled for 09/30/23 and lab orders pending Authorizing refill(s) of med(s) until then Thank you, Gina Underwood, PharmD, ARABELLA Clinical Pharmacist [facility] ([facility]) (formerly Telepharmacy) 06/29/23 4:37 PM [phone] documented in this encounter Plan of Treatment Upcoming Encounters Date Type Department Care Team (Late st Contact Info) Description 07/02/2023 1:00 PM EST Office Visit Orthopaedics [facility] 132 [facility] [place] [address] Forrest Davidson, 132 [facility] [place] [address] 07/03/2023 6:15 AM EST Anticoagulation Pharmacy Call Center [address] [place] [address] [facility], [facility] 58 60 [facility] [place] [address] 09/30/2023 9:20 AM EDT Office Visit Family Practice [facility] [place] 200 [facility] [address] Collette Mello III, MD 200 [facility] [place] [address] 10/01/2023 3:15 PM EDT Office Visit Hematology/Oncology [facility] [address] [place] [address] Efraín Leone MD 200 [facility] [place] [address] 11/12/2023 11:20 AM EDT Office Visit Dermatology [facility] 200 [facility] [place] [address] Margarita Figueredo PA-C 200 [facility] [place] [phone] 02/25/2024 9:30 AM EDT Imaging Radiology [address] 132 [facility] [place] [address] 04/21/2024 10:30 AM EDT Office Visit Sleep Disorders Ctr [facility] 132 [facility] [place] [phone] Viktoriya White CRNP 132 [facility] [place] [address] Scheduled Orders Name Type Priority Associated Diagnoses Orde r Schedule LIPID PANEL WITH DIRECT LDL IF TG IS HIGH Lab Routine Dyslipidemia, goal LDL below 70 Encounter for long-term (current) use of medications Expected: 07/13/2023 (Approximate), Expires: 06/29/2024 Scheduled Procedures Name Priority Associated Diagnoses Date/Ti [...] 02/16/2018, Additional history exists B-12 04/16/2024 04/16/2023, 080 07/2022, 10/06/2022, Additional history exists GFR 06/19/2024 [...] this encounter Medical Devices Implanted Type Area Facing End Trimmer Device Identifier Shelf Expiration Date Model / Serial / Lot Knee X3 Ins Pos Cs Sz4 11 - Sn/A - [id number] Implanted:Qty: 1 on 05/11/2023 by Forrest Davidson, DO at OR [facility] Right: Knee [employer]ANN[employer] : ORTHOPAEDICS 10/16/2027 [id number] / N/A / [id number] documented as of this encounter Visit Diagnoses Diagnosis Dyslipidemia, goal LDL below 70- Primary Other and unspecified hyperlipidemia Encounter for long-term [...] Advance Directives occurred with: Patient Care Teams Commercial Sales Representative Relationship Specialty Start Date End Date Collette Mello III, MD [address] [place] [address] PCP - General Family Medicine 09/10/18 documented as of this encounter
--- OUTSIDE RECORDS SUMMARY | 2023-07-14 14:33 | External Medical Summary ---
Author Name Unknown Address Unknown Organization [facility] [address] [place] [address] Laboratory Report Ordering Provider Test Date Status ALMA PORTILLO 06/25/2023 10:14:52 Final Warfarin Therapy
INR: 2 .0-3.0 conventional anticoagulation
INR: 2.5- 3.5 high intensity anticoagulation Observation Date Value Abnormality Reference (Units ) Status PT 06/25/2023 10:14:52 21.0 Above high normal 11 .6-15.2 (seconds) Final INR 06/25/2023 10:14:52 1.8 Above high normal 0. 8-1.2 Final Performing Location [facility] [address] [place] [address]
--- OUTSIDE RECORDS SUMMARY | 2023-07-14 14:33 | External Medical Summary | Summary of Care ---
Author Name Unknown Organization [facility] Address [address] [facility] [place] [address] Phone [phone] Care Team Providers Care Medical Scientist Name Role Phone Hilario ANDRADE MD, Shiva Kebede Primary Care Provider [phone] Reason for Visit * Reason Comments Outpatient Testing Encounter Details Date Type Department Care Team (Latest Contact Info) Description 06/25/2023 10:00 AM EST Laboratory [facility], [facility] [phone] [facility] [address] Status post musculoskeletal system surgery Allergies Active [...] (5mg) ALL OTHER EVENINGS OR DIRECTED BY [facility]. 105 Tablet 3 07/18/2022 Active Multi [...] right 2022 Alcohol abuse 05/11/2023 Atherosclerosis of [place] co ronary artery without angina pectoris 09/10/2022 [...] Resolved Date Atherosclerotic heart diseas e of [place] coronary artery with other forms of angina [...] mRNA, LNP-s, No Pre serve, 2-Dose Series ([employer]) 05/16/2021,09/23/2020,08/26/2020 Covid-19, Mrna, Lnp-s, Pf, B ivalent, [...] Center [address] [place] [address] [facility], [facility] 58 60 [facility] [place] [address] 07/02/2023 11:00 AM EST Office Visit Orthopaedics [facility] 132 [facility] [place] [address] Balta Hyde PA-C [address] [place] [address] 09/30/2023 9:20 AM EDT Office Visit Family Practice [facility] [address] [place] [address] Shiva Rich III, MD [address] [facility] [place] [address] 10/01/2023 3:15 PM EDT Office Visit Hematology/Oncology [facility] [address] [place] [address] Efraín Leone MD 200 [place] [address] 11/12/2023 11:20 AM EDT Office Visit Dermatology [facility] [address] [place] [address] Margarita Figueredo PA-C 200 [facility] [place] [phone] 02/25/2024 9:30 AM EDT Imaging Radiology [facility]st [facility] 132 [facility] [place] [address] 04/21/2024 10:30 AM EDT Office Visit Sleep Disorders Ctr [facility] 132 [facility] [place] [phone] Viktoriya White CRNP 132 [facility] [place] [address] Pending Results Name Type Priority Associated Diagnoses Date /Time CRP (INFLAMMATORY MARKER) Lab Routine Status post musculoskeletal system surgery 06/25/2023 10:14 AM EST PT INR Lab Routine Status post musculoskeletal system surgery 06/25/2023 10:14 AM EST Scheduled Procedures Name Priority Associated [...] this encounter Medical Devices Implanted Type Area Head Wrestling Coach Device Identifier Shelf Expiration Date Model / Serial / Lot Knee X3 Ins Pos Cs Sz4 11 - Sn/A - [id number] Implanted:Qty: 1 on 05/11/2023 by Forrest Davidson, DO at OR [facility] Right: Knee FRANNIE : ORTHOPAEDICS 10/16/2027 [id number] / N/A / [id number] documented as of this encounter Visit Diagnoses Diagnosis Status post musculoskeletal system surgery documented in [...] Advance Directives occurred with: Patient Care Teams Medical Scientist Relationship Specialty Start Date End Date Shiva Rich III, MD 200 [place] [address] PCP - General Family Medicine 09/10/18 documented as of this encounter
--- OUTSIDE RECORDS SUMMARY | 2023-07-14 14:33 | External Medical Summary | Summary of Care ---
Author Name Unknown Organization [facility] Address [address] [place] [address] Phone [phone] Care Team Providers Care Religious Education Director Name Role Phone Hilario ANDRADE MD, Shiva Kebede Primary Care Provider [phone] Reason for Visit * Reason Onset Date Comments Appointment 06/23/2023 Recall Encounter Details Date Type Department Care Team (Late st Contact Info) Description 06/23/2023 Telephone Vascular Surg [facility] [address] [place] [address] Anibal Anglin MD [address] [place], [place] [id number] Appointment (Recall/) Allergies Active Allergy Reactions Criticality [...] (5mg) ALL OTHER EVENINGS OR DIRECTED BY [facility]. 105 Tablet 3 07/18/2022 Active [...] right 2022 Alcohol abuse 05/11/2023 Atherosclerosis of [place] co ronary artery without angina pectoris 09/10/2022 [...] Resolved Date Atherosclerotic heart diseas e of [place] coronary artery with other forms of angina [...] mRNA, LNP-s, No Pre serve, 2-Dose Series (quickhuddle) 05/16/2021,09/23/2020,08/26/2020 Covid-19, Mrna, Lnp-s, Pf, B ivalent, [...] PM EST Anticoagulation Pharmacy Call Center 58-60 [facility] [place] [address] [facility] 58 60 [facility] [place] [address] 07/23/2023 10:30 AM EST Office Visit Orthopaedics [facility] 132 [facility] [place] [address] Balta Hyde PA-C [address] [place] [address] [place] [address] 09/30/2023 9:20 AM EDT Office Visit [facility] [address] [place] [address] Shiva Rich III, MD 200 [facility] [place] [address] 10/01/2023 3:15 PM EDT Office Visit Hematology/Oncology [facility] [place] 200 [facility] [place] [address] Efraín Leone MD [address] [place] [address] 11/12/2023 11:20 AM EDT Office Visit Dermatology [facility] [place] [address] [place] [address] Margarita Figueredo PA-C [address] [place] [phone] 02/25/2024 9:30 AM EDT Imaging Radiology [address] 132 [facility] [place] [address] 04/21/2024 10:30 AM EDT Office Visit Sleep Disorders Ctr [facility] 132 [facility] [place] [phone] Viktoriya White CRNP [address] [place] [address] Scheduled Procedures Name Priority Associated Diagnoses Date/Ti [...] this encounter Medical Devices Implanted Type Area Customer Engagement Manager Device Identifier Shelf Expiration Date Model / Serial / Lot Knee X3 Ins Pos Cs Sz4 11 - Sn/A - [id number] Implanted:Qty: 1 on 05/11/2023 by Forrest Davidson, DO at OR [facility] Right: Knee FRANNIE : ORTHOPAEDICS 10/16/2027 [id number] [...] Advance Directives occurred with: Patient Care Teams Religious Education Director Relationship Specialty Start Date End Date Shiva Rich III, MD 200 [place] [address] PCP - General Family Medicine 09/10/18 documented as of this encounter
--- OUTSIDE RECORDS SUMMARY | 2023-07-14 14:33 | External Medical Summary | Summary of Care ---
Author Name Unknown Organization [facility] Address [address] [place] [address] Phone [phone] Care Team Providers Care Matrix Bath Operator Name Role Phone Hilario ANDRADE MD, Shiva Kebede Primary Care Provider [phone] Reason for Visit * Reason Onset Date Comments Appointment 06/23/2023 Recall Encounter Details Date Type Department Care Team (Late st Contact Info) Description 06/23/2023 Telephone Vascular Surg [facility] [address] [place] [address] Anibal Anglin MD [address] [place], [place] [phone] Appointment (Recall/) Allergies Active Allergy Reactions Criticality [...] (5mg) ALL OTHER EVENINGS OR DIRECTED BY [facility]. 105 Tablet 3 07/18/2022 Active [...] right 2022 Alcohol abuse 05/11/2023 Atherosclerosis of [place] ronary artery without angina pectoris 09/10/2022 [...] Resolved Date Atherosclerotic heart diseas e of [place] coronary artery with other forms of angina [...] mRNA, LNP-s, No Pre serve, 2-Dose Series (PerfectSearch) 05/16/2021,09/23/2020,08/26/2020 Covid-19, Mrna, Lnp-s, Pf, B ivalent, [...] encounter Miscellaneous Notes * Telephone Encounter - Uma Castano OSA [...] EST Anticoagulation Pharmacy Call Center WB 58[facility]60 [facility] [address] [facility], [facility] 58 60 [facility] [place] Avalos [address] 07/02/2023 11:00 AM EST Office Visit Orthopaedics [facility] 132 [facility] [place] [address] Balta Hyde PA-C [address] [place] [address] [place] [address] 09/30/2023 9:20 AM EDT Office Visit Family Practice [address] [place] [address] Shiva Rich III, MD [address] [place] [address] [place] [address] 10/01/2023 3:15 PM EDT Office Visit Hematology/Oncology [address] [place] [address] Efraín Leone MD [address] [place] [address] [place] [address] 11/12/2023 11:20 AM EDT Office Visit Dermatology [address] [place] [address] Margarita Figueredo PA-C [address] [place] [phone] 02/25/2024 9:30 AM EDT Imaging Radiology [address] [place] [address] 04/21/2024 10:30 AM EDT Office Visit Sleep Disorders Ctr [facility] [address] [place] [phone] Viktoriya White CRNP [address] [place] [address] Scheduled Procedures Name Priority Associated Diagnoses Date/Ti [...] this encounter Medical Devices Implanted Type Area Air Launch Weapons Technician Device Identifier Shelf Expiration Date Model / Serial / Lot Knee X3 Ins Pos Cs Sz4 11 - Sn/A - [id number] Implanted:Qty: 1 on 05/11/2023 by Forrest Davidson, DO at OR [facility] Right: Knee [...] Advance Directives occurred with: Patient Care Teams Matrix Bath Operator Relationship Specialty Start Date End Date Shiva Rich III, MD [address] [place] [address] PCP - General Family Medicine 09/10/18 documented as of this encounter
--- OUTSIDE RECORDS SUMMARY | 2023-07-14 14:33 | External Medical Summary | Summary of Care ---
Author Name Unknown Organization [facility] Address [address] [facility] [place] [address] Phone [phone] Care Team Providers Care Sheet Tester Name Role Phone Hilario ANDRADE MD, Shiva Kebede Primary Care Provider [phone] Reason for Visit * Reason Comments Outpatient Testing Encounter Details Date Type Department Care Team (Late st Contact Info) Description 07/02/2023 2:40 PM EST Laboratory Laboratory, [facility] 132 [place] [phone] [facility] 132 [place] [address] Paroxysmal atrial fibrillation (HCC) Allergies Active Allergy Reactions Criticality Noted Date [...] (5mg) ALL OTHER EVENINGS OR DIRECTED BY [facility]. 105 Tablet 3 07/18/2022 Active [...] right 2022 Alcohol abuse 05/11/2023 Atherosclerosis of [place] co ronary artery without angina pectoris 09/10/2022 [...] Resolved Date Atherosclerotic heart diseas e of [place] coronary artery with other forms of angina [...] mRNA, LNP-s, No Pre serve, 2-Dose Series (TEVIZZ) 05/16/2021,09/23/2020,08/26/2020 Covid-19, Mrna, Lnp-s, Pf, B ivalent, [...] EST Anticoagulation Pharmacy Call Center WB 58-60 [facility] [place] Avalos [address] [facility] 58 60 [facility] [place] [address] 07/09/2023 9:00 AM EST Office Visit Orthopaedics [address] [place] [address] Forrest Davidson, 132 [facility] [place]MER [address] 09/30/2023 9:20 AM EDT Office Visit Family Practice [facility] [address] [place] [address] Shiva iRch III, MD 200 [facility] [place] [address] 10/01/2023 3:15 PM EDT Office Visit Hematology/Oncology [facility] [address] [place] [address] Efraín Leoen MD 200 [facility] [place] [address] 11/12/2023 11:20 AM EDT Office Visit Dermatology [facility] [address] [place] [address] Margarita Figueredo PA-C 200 [facility] [place] [phone] 02/25/2024 9:30 AM EDT Imaging Radiology [address] 132 [facility] [place] [address] 04/21/2024 10:30 AM EDT Office Visit Sleep Disorders Ctr [facility] 132 [facility] [place] [phone] Viktoriya White CRNP 132 [facility] [place] [address] Pending Results Name Type Priority Associated Diagnoses Date /Time PT INR Lab Routine Paroxysmal atrial fibrillation (HCC) 07/02/2023 2:29 PM EST Scheduled Procedures Name Priority Associated [...] this encounter Medical Devices Implanted Type Area Coin Machine Servicer Repairer Device Identifier Shelf Expiration Date Model / Serial / Lot Knee X3 Ins Pos Cs Sz4 11 - Sn/A - [id number] Implanted:Qty: 1 on 05/11/2023 by Forrest Davidson, DO at OR [facility] Right: Knee FRANNIE : ORTHOPAEDICS 10/16/2027 [id number] / N/A / [id number] documented as of this encounter Visit Diagnoses Diagnosis Paroxysmal atrial fibrillation (HCC) Atrial fibrillation documented in this encounter Advance [...] Advance Directives occurred with: Patient Care Teams Sheet Tester Relationship Specialty Start Date End Date Shiva Rich III, MD [address] [place] [address] PCP - General Family Medicine 09/10/18 documented as of this encounter
--- OUTSIDE RECORDS SUMMARY | 2023-07-14 14:34 | External Medical Summary | Summary of Care ---
Author Name Unknown Organization [facility] Address [address] [facility] [place] [address] Phone [phone] Care Team Providers Care Grease Worker Name Role Phone Hilario ANDRADE MD, Shiva Kebede Primary Care Provider [phone] Encounter Details Date Type Department Care Team (Late st Contact Info) Description 06/24/2023 Patient Reported Data Patient Survey Ortho OBERD Allergies Active Allergy Reactions Criticality Noted Date Comments Bee Venom Edema Other 01/10/2016 Lisinopril Cough 09/04/2016 documented as of this encounter (statuses as of 06/24/2023) Medications Medication Sig Dispensed Refills Start Date [...] as of this encounter (statuses as of 06/24/2023) Active Problems Problem Noted Date Diagnosed Date Wound dehiscence, surgical 06/15/2023 Postoperative wound infection 06/15/2023 Other iron deficiency anemias 05/22/2023 Postoperative anemia due to acute blood loss History of total knee arthroplasty, right 2022 Alcohol abuse 05/11/2023 Atherosclerosis of [place] co ronary artery without angina pectoris 09/10/2022 [...] as of this encounter (statuses as of 06/24/2023) Resolved Problems Problem Noted Date Diagnosed Date Resolved Date Atherosclerotic heart diseas e of [place] coronary artery with other forms of angina [...] as of this encounter (statuses as of 06/24/2023) Immunizations Name Administration Dates Next Due COVID-19 mRNA, LNP-s, No Pre serve, 2-Dose Series (Pfizer) 05/16/2021,09/23/2020,08/26/2020 Covid-19, Mrna, Lnp-s, Pf, B ivalent, [...] Care Team (Late st Contact Info) Description 06/25/2023 9:15 AM EST Office Visit Orthopaedics [facility] 132 [place]ney [address] Forrest Davidson, DO 132 [place] [address] 06/25/2023 10:00 AM EST [facility], [facility] 132 [facility] [place] [phone] [facility] 132 [facility] [place] [address] 06/26/2023 6:00 PM EST Anticoagulation Pharmacy Call Center WB 58-60 Public [place] A[place]os [address] [facility], [facility] 58 60 [facility] [place] Avalos [address] 07/02/2023 11:00 AM EST Office Visit Orthopaedics [facility] 132 [facility] [place] [address] Balta Hyde PA-C [address] [place] [address] [place] [address] 09/30/2023 9:20 AM EDT Office Visit Family Practice [facility] [address] [place] [address] Shiva Rich III, MD [address] [place] [address] 10/01/2023 3:15 PM EDT Office Visit Hematology/Oncology [facility] [place] [address] [place] [place] [address] Efraín Leone MD [address] [place] [address] 11/12/2023 11:20 AM EDT Office Visit Dermatology [facility] [address] [place] [address] Margarita Figueredo PA-C [address] [place] [phone] 02/25/2024 9:30 AM EDT Imaging Radiology [address] [place] [address] 04/21/2024 10:30 AM EDT Office Visit Sleep Disorders Ctr [facility] 132 [facility] [place] [phone] Viktoriya White CRNP 132 [facility] [place] [address] Scheduled Procedures Name Priority Associated Diagnoses Date/Ti [...] this encounter Medical Devices Implanted Type Area Commercial Carpet Installer Device Identifier Shelf Expiration Date Model / Serial / Lot Knee X3 Ins Pos Cs Sz4 11 - Sn/A - [id number] Implanted:Qty: 1 on 05/11/2023 by Forrest Davidson, at OR [facility] Right: Knee FRANNIE : ORTHOPAEDICS 10/16/2027 [...] Advance Directives occurred with: Patient Care Teams Grease Worker Relationship Specialty Start Date End Date Shiva Rich III, MD 200 [facility] [place] [address] PCP - General Family Medicine 09/10/18 documented as of this encounter
--- OUTSIDE RECORDS SUMMARY | 2023-07-14 14:34 | External Medical Summary | Summary of Care ---
Author Name Unknown Organization [facility] Address [address] [facility] [place] [address] Phone [phone] Care Team Providers Care Lift Driver Name Role Phone Hilario ANDRADE MD, Shiva Kebede Primary Care Provider [phone] Encounter Details Date Type Department Care Team [...] right 2022 Alcohol abuse 05/11/2023 Atherosclerosis of [place] co ronary artery without angina pectoris 09/10/2022 [...] Resolved Date Atherosclerotic heart diseas e of [place] coronary artery with other forms of angina [...] 06/25/2023 9:15 AM EST Office Visit Orthopaedics [facility] 132 [place] [address] Forrest Davidson, DO 132 [place] Neumann [address] 06/25/2023 10:00 AM EST [facility] 132 [facility] [place] [phone] [facility] 132 [facility] [place] [address] 06/26/2023 6:00 PM EST Anticoagulation Pharmacy Call Center WB 58-60 Public [place] Avalos [address] [facility], [facility] 58 60 [facility] [place] Avalos [address] 07/02/2023 11:00 AM EST Office Visit Orthopaedics [facility] 132 [facility] [place] [address] Balta Hyde PA-C [address] [place] [address] 09/30/2023 9:20 AM EDT Office Visit Family Practice [facility] [address] [place] [address] Shiva Rich III, MD [address] [place] [address] 10/01/2023 3:15 PM EDT Office Visit Hematology/Oncology [facility] [place] [address] [place] [place] [address] Efraín Leone MD [address] [place] [address] 11/12/2023 11:20 AM EDT Office Visit Dermatology [facility] [address] [place] [place] [address] Margarita Figueredo PA-C [address] [place] [phone] 02/25/2024 9:30 AM EDT Imaging Radiology [address] [place] [address] 04/21/2024 10:30 AM EDT Office Visit Sleep Disorders Ctr [facility] 132 [facility] [place] [phone] Viktoriya White CRNP 132 [facility] [place] [address] Scheduled Procedures Name Priority Associated Diagnoses Date/Ti [...] this encounter Medical Devices Implanted Type Area Insurance Risk Analyst Device Identifier Shelf Expiration Date Model / Serial / Lot Knee X3 Ins Pos Cs Sz4 11 - Sn/A - [id number] Implanted:Qty: 1 on 05/11/2023 by Forrest Davidson, at OR [facility] Right: Knee FRANNIE : ORTHOPAEDICS [...] Advance Directives occurred with: Patient Care Teams Lift Driver Relationship Specialty Start Date End Date Shiva Rich III, MD 200 [place] [address] PCP - General Family Medicine 09/10/18 documented as of this encounter
--- OUTSIDE RECORDS SUMMARY | 2023-07-14 14:34 | External Medical Summary | Summary of Care ---
Author Name Unknown Organization [facility] Address [address] [place] [address] Phone [phone] Care Team Providers Care Fast Food Attendant Name Role Phone Hilario ANDRADE MD, Shiva Kebede Primary Care Provider [phone] Reason for Visit * Reason Onset Date Comments Appointment 06/23/2023 Recall Encounter Details Date Type Department Care Team (Late st Contact Info) Description 06/23/2023 Telephone Vascular Surg [facility] [address] [place] [address] Anibal Anglin MD [address] [place], [place] [phone] Appointment (Recall/) Allergies Active Allergy Reactions Criticality Noted Date Comments Bee Venom Edema Other 01/10/2016 Lisinopril Cough 09/04/2016 documented as of this encounter (statuses as of 06/23/2023) Medications Medication Sig Dispensed Refills Start Date [...] (5mg) ALL OTHER EVENINGS OR DIRECTED BY [facility]. 105 Tablet 3 07/18/2022 Active Multi [...] as of this encounter (statuses as of 06/23/2023) Active Problems Problem Noted Date Diagnosed Date Wound dehiscence, surgical 06/15/2023 Postoperative wound infection 06/15/2023 Other iron deficiency anemias 05/22/2023 Postoperative anemia due to acute blood loss History of total knee arthroplasty, right 2022 Alcohol abuse 05/11/2023 Atherosclerosis of [place] co ronary artery without angina pectoris 09/10/2022 [...] as of this encounter (statuses as of 06/23/2023) Resolved Problems Problem Noted Date Diagnosed Date Resolved Date Atherosclerotic heart diseas e of [place] coronary artery with other forms of angina [...] as of this encounter (statuses as of 06/23/2023) Immunizations Name Administration Dates Next Due COVID-19 mRNA, LNP-s, No Pre serve, 2-Dose Series (Imagiin.) 05/16/2021,09/23/2020,08/26/2020 Covid-19, Mrna, Lnp-s, Pf, B ivalent, [...] patient to schedule her 2 year return [facility] documented in this encounter Plan of Treatment Upcoming Encounters Date Type Department Care Team (Late st Contact Info) Description 06/29/2023 11:00 AM EST Laboratory Laboratory, [facility] 132 [facility] [place] ARCHER [phone] [facility] 132 [facility] [place] ARCHER [address] 06/30/2023 6:15 AM EST Anticoagulation Pharmacy Call Center WB 58-60 [facility] [place] [address] [facility] 58 60 [facility] [place] Avalos [address] 07/02/2023 11:00 AM EST Office Visit Orthopaedics [facility] 132 [facility] [place] [address] Balta Hyde PA-C [address] [place] [place] [address] 09/30/2023 9:20 AM EDT Office Visit Family Practice [facility] [address] [place] [address] [address] Shiva Rich III, MD 200 [facility] [place] [address] 10/01/2023 3:15 PM EDT Office Visit Hematology/Oncology [facility] [place] [address] [place] [address] Efraín Leone MD 200 [place] [address] 11/12/2023 11:20 AM EDT Office Visit Dermatology [facility] [address] [place] [address] Margarita Figueredo PA-C [address] [place] [phone] 02/25/2024 9:30 AM EDT Imaging Radiology [address] [place] [address] 04/21/2024 10:30 AM EDT Office Visit Sleep Disorders Ctr [facility] [address] [place] [phone] Viktoriya White CRNP [address] [place] [address] Scheduled Procedures Name Priority Associated Diagnoses Date/Ti [...] encounter Medical Devices Implanted Type Area Manager Fast Food Device Identifier Shelf Expiration Date Model / Serial / Lot Knee X3 Ins Pos Cs Sz4 11 - Sn/A - [id number] Implanted:Qty: 1 on 05/11/2023 by Forrest Daivdson, DO at OR [facility] Right: Knee FRANNEI : ORTHOPAEDICS 10/16/2027 [id number] / N/A [...] Advance Directives occurred with: Patient Care Teams Fast Food Attendant Relationship Specialty Start Date End Date Shiva Rich III, MD [address] [place] [address] PCP - General Family Medicine 09/10/18 documented as of this encounter
--- OUTSIDE RECORDS SUMMARY | 2023-07-14 14:34 | External Medical Summary | Summary of Care ---
Author Name Unknown Organization [facility] Address [address] [facility] [place] [address] Phone [phone] Care Team Providers Care Machine Molder Squeeze Name Role Phone Hilario ANDRADE MD, Shiva Kebede Primary Care Provider [phone] Encounter Details Date Type Department Care Team [...] right 2022 Alcohol abuse 05/11/2023 Atherosclerosis of [place] co ronary artery without angina pectoris 09/10/2022 [...] Resolved Date Atherosclerotic heart diseas e of [place] coronary artery with other forms of angina [...] 06/25/2023 9:15 AM EST Office Visit Orthopaedics [facility] 132 [place] [address] Forrest Davidson, DO 132 [place] [address] 06/25/2023 10:00 AM EST Laboratory [facility], [facility] 132 [facility] [place] [phone] [place] [facility] 132 [facility] [place] ZIMMER [address] 06/26/2023 6:00 PM EST Anticoagulation Pharmacy Call Center WB 58-60 Public [place] Avalos [address] [facility], [facility] 58 60 [facility] [place] Avalos [address] 07/02/2023 11:00 AM EST Office Visit Orthopaedics [facility] 132 [facility] [place] [address] Balta Hyde PA-C [address] [place] [address] 09/30/2023 9:20 AM EDT Office Visit Family Practice [facility] [address] [place] [address] Shiva Rich III, MD [address] [place] [address] 10/01/2023 3:15 PM EDT Office Visit Hematology/Oncology [facility] [place] [address] [place] [address] Efraín Leone MD [address] [place] [address] 11/12/2023 11:20 AM EDT Office Visit Dermatology [facility] [address] [place] [place] [address] Margarita Figueredo PA-C [address] [place] [phone] 02/25/2024 9:30 AM EDT Imaging Radiology [address] [place] [address] 04/21/2024 10:30 AM EDT Office Visit Sleep Disorders Ctr [facility] 132 [facility] [place] [phone] Viktoriya White CRNP 132 [facility] [place] [address] Scheduled Procedures Name Priority Associated Diagnoses Date/Ti [...] this encounter Medical Devices Implanted Type Area Analog Device Designer Device Identifier Shelf Expiration Date Model / Serial / Lot Knee X3 Ins Pos Cs Sz4 11 - Sn/A - [id number] Implanted:Qty: 1 on 05/11/2023 by Forrest Davidson, at OR [facility] Right: Knee FRANNIE : ORTHOPAEDICS [...] Advance Directives occurred with: Patient Care Teams Machine Molder Squeeze Relationship Specialty Start Date End Date Shiva Rich III, MD 200 [place] [address] PCP - General Family Medicine 09/10/18 documented as of this encounter
--- OUTSIDE RECORDS SUMMARY | 2023-07-14 14:34 | External Medical Summary | Summary of Care ---
Author Name Unknown Organization [facility] Address [address] [facility] [place] [address] Phone [phone] Care Team Providers Care Director Of Patient Safety Name Role Phone Hilario ANDRADE MD, Shiva Kebede Primary Care Provider [phone] Reason for Visit * Reason Onset Date Comments Appointment 06/24/2023 Encounter Details Date Type Department Care Team (Late st Contact Info) Description 06/24/2023 Telephone Orthopaedics [facility] [address] [place] [address] Forrest aDvidson, [address] [place] [address] Appointment Allergies Active Allergy Reactions Criticality Noted Date [...] EVENINGS OR DIRECTED BY [facility]. 105 Tablet 3 07/18/2022 Active Multi [...] right 2022 Alcohol abuse 05/11/2023 Atherosclerosis of [place] co ronary artery without angina pectoris 09/10/2022 [...] Resolved Date Atherosclerotic heart diseas e of [place] coronary artery with other forms of angina [...] mRNA, LNP-s, No Pre serve, 2-Dose Series ([employer]) 05/16/2021,09/23/2020,08/26/2020 Covid-19, Mrna, Lnp-s, Pf, B ivalent, 30 Mcg, IM, 12 yrs and above ([employer]) 05/09/2022 Pneumococcal Conjugate Vacc, 13 Valent (Prevnar) [...] encounter Miscellaneous Notes * Telephone Encounter - Rukhsana Regan OSA - 06/24/2023 8:15 AM EST Added to schedule on 06/25 per message below LVM for patient on 06/24 @ 8:15 am with date and time. * Telephone Encounter - Rukhsana Regan OSA - 06/24/2023 8:15 AM EST ----- Message from Forrest Davidson DO sent at 06/24/2023 7:37 AM EST ----- Regarding: appt on 06/25/23 Patient needs appointment on , 06/25/2023 for right knee wound re- evaluation. Please schedule accordingly with me at 9:15 a.m. documented in this encounter Plan of Treatment Upcoming Encounters Date Type Department Care Team (Late st Contact Info) Description 06/25/2023 9:15 AM EST Office Visit Orthopaedics [facility] 132 [facility] [place] [address] Forrest Davidson DO 132 [facility] [place] [address] 06/26/2023 11:00 AM EST Laboratory Laboratory, [facility] 132 [facility] [place] [phone] [facility] [place] [address] 06/26/2023 6:00 PM EST Anticoagulation Pharmacy Call Center WB [address] Public [place] [address] [facility] [address] [facility] [place] [address] 07/02/2023 11:00 AM EST Office Visit Orthopaedics [facility] [address] [place] [address] Balta Hyde PA-C [address] [place] [address] 09/30/2023 9:20 AM EDT Office Visit Family Practice [facility] [address] [place] [address] Shiva Rich III, MD 200 [facility] [place] [address] 10/01/2023 3:15 PM EDT Office Visit Hematology/Oncology [facility] [address] [place] [address] Efraín Leone MD 200 [place] [address] 11/12/2023 11:20 AM EDT Office Visit Dermatology [facility] [address] [place] [address] Margarita Figueredo PA-C 200 [facility] [place] [phone] 02/25/2024 9:30 AM EDT Imaging Radiology [address] 132 [facility] [place] [address] 04/21/2024 10:30 AM EDT Office Visit Sleep Disorders Ctr [facility] 132 [facility] [place] [phone] Viktoriya White CRNP 132 [facility] [place] [address] Scheduled Procedures Name Priority Associated Diagnoses Date/Ti [...] this encounter Medical Devices Implanted Type Area Firesetter Device Identifier Shelf Expiration Date Model / Serial / Lot Knee X3 Ins Pos Cs Sz4 11 - Sn/A - [id number] Implanted:Qty: 1 on 05/11/2023 by Forrest Davidson, DO at OR [facility] Right: Knee FRANNIE : ORTHOPAEDICS 10/16/2027 [...] Advance Directives occurred with: Patient Care Teams Director Of Patient Safety Relationship Specialty Start Date End Date Shiva Rich III, MD 200 [place] [address] PCP - General Family Medicine 09/10/18 documented as of this encounter
--- OUTSIDE RECORDS SUMMARY | 2023-07-14 14:34 | External Medical Summary | Summary of Care ---
Author Name Unknown Organization [facility] Address [address] [facility] [place] [address] Phone [phone] Care Team Providers Care Channel Cementer Outsole Machine Name Role Phone Hilario ANDRADE MD, Shiva Kebede Primary Care Provider [phone] Reason for Visit * Reason Comments Dosage Adjustment Via Phone (anticoag Cl inic) * Evaluate & Treat - Unlimited Visits (Within 3 days (urgent)) - Authorized Specialty Diagnoses / Procedures Referred By Andrea cochran Referred To Contact ANTI-COAG CLINIC / Pharmacy Diagnoses Paroxysmal atrial fibrillation (HCC) Mode Frias MD [address] [place] [address] [place] [address] Referral ID Status Reason Start Date Expiration Date Visits Requested Visits Authorized [id number] Authorized Specialty Services Required 06/19/2023 99 99 Encounter Details Date Type Department Care Team (Latest Contact Info) Description 06/23/2023 6:45 AM EST Anticoagulation Pharmacy Call Center [address] [place] [address] [facility] 58 60 [facility] [place] [address] Paroxysmal atrial fibrillation (HCC)* Allergies Active Allergy [...] (5mg) ALL OTHER EVENINGS OR DIRECTED BY [facility]. 105 Tablet 3 07/18/2022 Active Multi [...] right 2022 Alcohol abuse 05/11/2023 Atherosclerosis of [place] co ronary artery without angina pectoris 09/10/2022 [...] Resolved Date Atherosclerotic heart diseas e of [place] coronary artery with other forms of angina [...] mRNA, LNP-s, No Pre serve, 2-Dose Series ([employer]) 05/16/2021,09/23/2020,08/26/2020 Covid-19, Mrna, Lnp-s, Pf, B ivalent, 30 Mcg, IM, 12 yrs and above ([employer]) 05/09/2022 Pneumococcal Conjugate Vacc, 13 Valent (Prevnar) [...] of this encounter Progress Notes * Nohelia Cortes [facility] - 06/23/2023 2:25 PM EST Medication Therapy Disease Management - Anticoagulation Patient: Nenita Fleming | : 1955 Subjective Contacts Type Contact Phone/Fax 06/23/2023 02:44 PM EST Phone (Outgoing) Nenita Fleming (Self) [phone] (M) Left Message Patient-Reported Symptoms: Patient Findings Positives: Hospital admission Comments: Pt was discharged from [facility] to home w/ HH. Pt was admitted for postoperative wound infection. Pertinent medications changes enoxaparin discontinued per d/c summary . INR at discharge was 1.1. Pt was provided the following directions at discharge: 5mg daily no lovenox . Would like to repeat PT/INR on 06/26 - advised pt to call us back if she would like HH to draw during their visit, we will need to fax orders. Otherwise pt can have drawn at lab. Objective Current Warfarin Dose As of 06/23/2023 Warfarin maintenance plan: 7.5 mg (5 mg x 1.5) every Fri; 5 mg (5 mg x 1) all other days INR Result As of 06/23/2023 INR goal: 2.0-3.0 INR used for dosing: No new INR was available at the time of this encounter. Assessment & Plan Warfarin Plan As of 06/23/2023 Full warfarin instructions: 7.5 mg every Fri; 5 mg all other days Next INR check: 06/26/2023 Repeat PT/INR in 3 day(s) Weekly dose: not changed Additional Dosing Information: Description Ck's Gambino- pt prefers Thurs AMIODARONE started 04/28/22 Nohelia Cortes [facility] Clinical Pharmacist 06/23/2023, 2:40 PM documented in this encounter Plan of Treatment Upcoming Encounters Date Type Department Care Team (Late st Contact Info) Description 06/29/2023 11:00 AM EST Laboratory Laboratory, [facility] [place] [address] [place] [phone] [facility] 132 [facility] [place] [address] 06/30/2023 6:15 AM EST Anticoagulation Pharmacy Call Center 58[address]60 [facility] [place] [address] [facility] 58 60 [facility] [place] [address] 07/02/2023 11:00 AM EST Office Visit Orthopaedics [facility] 132 [facility] [place] [address] Balta Hyde PA-C [address] [place] [address] 09/30/2023 9:20 AM EDT Office Visit Family Practice [facility] [place] [address] [place] [address] [address] Shiva Rich III, MD [address] [place] [address] [address] 10/01/2023 3:15 PM EDT Office Visit Hematology/Oncology [facility] [place] [address] [place] [address] [address] Efraín Leone MD [address] [place] [address] [address] 11/12/2023 11:20 AM EDT Office Visit Dermatology [facility] [place] [address] [place] [address] [address] Margarita Figueredo PA-C 200 [facility] [place] [address] 02/25/2024 9:30 AM EDT Imaging Radiology [address] 132 [facility] [place] [address] 04/21/2024 10:30 AM EDT Office Visit Sleep Disorders Ctr [facility] 132 [facility] [place] [phone] Viktoriya White CRNP 132 [facility] [place] [address] Scheduled Procedures Name Priority Associated Diagnoses Date/Ti me COLONOSCOPY FLEXIBLE PROXIMA L DIAGNOSTIC Recall History of colonic polyps Scheduled Referrals Name Type Priority Associated Diagnoses Orde r Schedule ANTI-COAGULATION REFERRAL OP Referral Within 3 days (urgent) Paroxysmal atrial fibrillation (HCC) Ordered: 06/19/2023 Health Maintenance Due Date Last Done Comments [...] this encounter Medical Devices Implanted Type Area Rehab Office Coordinator Device Identifier Shelf Expiration Date Model / Serial / Lot Knee X3 Ins Pos Cs Sz4 11 - Sn/A - [id number] Implanted:Qty: 1 on 05/11/2023 by Forrest Davidson, at OR [facility] Right: Knee FRANNIE : ORTHOPAEDICS 10/16/2027 [...] Advance Directives occurred with: Patient Care Teams Channel Cementer Outsole Machine Relationship Specialty Start Date End Date Shiva Rich III, MD [address] [place] [address] PCP - General Family Medicine 09/10/18 documented as of this encounter"
--- OUTSIDE RECORDS SUMMARY | 2023-07-14 14:34 | External Medical Summary | Summary of Care ---
Author Name Unknown Organization [facility] Address [address] [facility] [place] [address] Phone [phone] Care Team Providers Care Graphic Artist Name Role Phone Hilario ANDRADE MD, Shiva Kebede Primary Care Provider [phone] Reason for Visit * Reason Onset Date Comments Appointment 06/24/2023 Encounter Details Date Type Department Care Team (Late st Contact Info) Description 06/24/2023 Telephone Orthopaedics [facility] [address] [place] [address] Forrest Davidson, [address] [place] [address] Appointment Allergies Active Allergy Reactions Criticality Noted [...] (5mg) ALL OTHER EVENINGS OR DIRECTED BY [facility]. 105 Tablet 3 07/18/2022 Active [...] right 2022 Alcohol abuse 05/11/2023 Atherosclerosis of [place] co ronary artery without angina pectoris 09/10/2022 [...] Resolved Date Atherosclerotic heart diseas e of [place] coronary artery with other forms of angina [...] mRNA, LNP-s, No Pre serve, 2-Dose Series ([employer]) 05/16/2021,09/23/2020,08/26/2020 Covid-19, Mrna, Lnp-s, Pf, B ivalent, 30 Mcg, IM, 12 yrs and above ([employer]) 05/09/2022 Pneumococcal Conjugate Vacc, 13 Valent (Prevnar) [...] encounter Miscellaneous Notes * Telephone Encounter - Malathi Tian OSA - 06/24/2023 9:24 AM EST Patient returned call to confirm appt on 06/25/2023. * Telephone Encounter - Rukhsana Regan OSA [...] 9:15 AM EST Office Visit Orthopaedics [facility] [address] [place] [address] Forrest Davidson DO [address] [place] [address] 06/25/2023 10:00 AM EST Laboratory Laboratory, [facility] 132 [place] [phone] Wilfredo Gambinos [address] [place] [address] 06/26/2023 6:00 PM EST Anticoagulation Pharmacy Call Center WB [address] [place] [address] [facility] 58 60 [facility] [place] [address] 07/02/2023 11:00 AM EST Office Visit Orthopaedics [facility] 132 [facility] [place] [address] Balta Hyde PA-C [address] [place] [address] 09/30/2023 9:20 AM EDT Office Visit Family Practice [facility] [address] [place] [address] Shiva Rich III, MD 200 [facility] [place] [address] 10/01/2023 3:15 PM EDT Office Visit Hematology/Oncology [facility] [place] [address] [place] [address] Efraín Leone MD 200 [facility] [place] [address] 11/12/2023 11:20 AM EDT Office Visit Dermatology [facility] [address] [place] [address] Margarita Figueredo PA-C 200 [facility] [place] [phone] 02/25/2024 9:30 AM EDT Imaging Radiology [facility] 132 [facility] [place] [address] 04/21/2024 10:30 AM EDT Office Visit Sleep Disorders Ctr [facility] 132 [facility] [place] [phone] Viktoriya White CRNP 132 [facility] [place] [address] Scheduled Procedures Name Priority Associated Diagnoses Date/Ti [...] this encounter Medical Devices Implanted Type Area Guest Room Attendant Device Identifier Shelf Expiration Date Model / Serial / Lot Knee X3 Ins Pos Cs Sz4 11 - Sn/A - [id number] Implanted:Qty: 1 on 05/11/2023 by Forrest Davidson, DO at OR [facility] Right: Knee FRANNIE : ORTHOPAEDICS 10/16/2027 [...] Advance Directives occurred with: Patient Care Teams Graphic Artist Relationship Specialty Start Date End Date Shiva Rich III, MD 200 [facility] [place] [address] PCP - General Family Medicine 09/10/18 documented as of this encounter
--- OUTSIDE RECORDS SUMMARY | 2023-07-14 14:35 | External Medical Summary | Summary of Care ---
Author Name Unknown Organization [facility] Address [address] [facility] [place] [address] Phone [phone] Care Team Providers Care Rigger Supervisor Name Role Phone Hilario ANDRADE MD, Shiva Kebede Primary Care Provider [phone] Reason for Visit * Reason Onset Date Comments Other 06/22/2023 Encounter Details Date Type Department Care Team (Late st Contact Info) Description 06/22/2023 Telephone Pharmacy Call Center 58-60 [facility] [place] [address] [facility] 58 60 [facility] [place] [address] Other Allergies Active Allergy Reactions Criticality Noted Date Comments Bee Venom Edema Other 01/10/2016 Lisinopril Cough 09/04/2016 documented as of this encounter (statuses as of 06/22/2023) Medications Medication Sig Dispensed Refills Start Date [...] (5mg) ALL OTHER EVENINGS OR DIRECTED BY [facility]. 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 pectoris 09/10/2022 [...] as of this encounter (statuses as of 06/22/2023) Resolved Problems Problem Noted Date Diagnosed Date Resolved Date Atherosclerotic heart diseas e of [place] coronary artery with other forms of angina [...] as of this encounter (statuses as of 06/22/2023) Immunizations Name Administration Dates Next Due COVID-19 mRNA, LNP-s, No Pre serve, 2-Dose Series ([employer]) 05/16/2021,09/23/2020,08/26/2020 Covid-19, Mrna, Lnp-s, Pf, B ivalent, 30 Mcg, IM, 12 yrs and above ([employer]) 05/09/2022 Pneumococcal Conjugate Vacc, 13 Valent (Prevnar) [...] encounter Miscellaneous Notes * Telephone Encounter - Rhonda Spain arc welder - 06/22/2023 8:27 AM EST Pt calling in asking about 645 am phone call explained it is not an actual apt. documented in this encounter Plan of Treatment Upcoming Encounters Date Type Department Care Team (Late st Contact Info) Description 06/29/2023 11:00 AM EST Laboratory Laboratory, [facility] [address] [facility] [place] [phone] [facility] [address] [facility] [place] [place] [address] 06/30/2023 6:15 AM EST Anticoagulation Pharmacy Call Center 58[address] Public [facility] [place] [address] [facility] [place] 58 60 [facility] [place] [address] 07/02/2023 11:00 AM EST Office Visit Orthopaedics [facility] [address] [facility] [place] [address] Balta Hyde PA-C [address] [place] [address] 09/30/2023 9:20 AM EDT Office Visit Family Practice [facility] [address] [place] [address] [address] Shiva Rich III, MD [address] [facility] [place] [address] 10/01/2023 3:15 PM EDT Office Visit Hematology/Oncology [facility] [address] [place] [address] [address] Efraín Leone MD [address] [place] [address] 11/12/2023 11:20 AM EDT Office Visit Dermatology [facility] [address] [place] [address] [address] Margarita Figueredo PA-C [address] [place] [phone] 02/25/2024 9:30 AM EDT Imaging Radiology [address] [place] [address] 04/21/2024 10:30 AM EDT Office Visit Sleep Disorders Ctr [facility] [address] [place] [phone] Viktoriya White CRNP [address] [place] [address] Scheduled Procedures Name Priority Associated Diagnoses Date/Ti [...] this encounter Medical Devices Implanted Type Area Learning Solutions Specialist Device Identifier Shelf Expiration Date Model / Serial / Lot Knee X3 Ins Pos Cs Sz4 11 - Sn/A - [id number] Implanted:Qty: 1 on 05/11/2023 by Forrest Davidson, DO at OR [facility] Right: Knee FRANNIE : ORTHOPAEDICS 10/16/2027 [...] Advance Directives occurred with: Patient Care Teams Rigger Supervisor Relationship Specialty Start Date End Date Shiva Rich III, MD 200 [facility] [place] [address] PCP - General Family Medicine 09/10/18 documented as of this encounter
--- OUTSIDE RECORDS SUMMARY | 2023-07-14 14:35 | External Medical Summary ---
Author Name Unknown Address Unknown Organization : Laboratory Report Ordering Provider Test Date Status ALMA PORTILLO 06/19/2023 11:33:05 Final Observation Date Value Abnormality Reference (Units ) Status Glucose Point of Care 06/19/2023 11:33:05 100 70-120 (mg/dL) Final Performing Location
--- OUTSIDE RECORDS SUMMARY | 2023-07-14 14:35 | External Medical Summary ---
Author Name Unknown Address Unknown Organization : Laboratory Report Ordering Provider Test Date Status ALMA PORTILLO 06/18/2023 21:23:30 Final Observation Date Value Abnormality Reference (Units ) Status Glucose Point of Care 06/18/2023 21:23:30 126 Above high normal 70-120 (mg/dL) Final Performing Location
--- OUTSIDE RECORDS SUMMARY | 2023-07-14 14:35 | External Medical Summary ---
Author Name Unknown Address Unknown Organization K01:LABORATORY [facility] - [address] [facility] [place] [address] Laboratory Report Ordering Provider Test Date Status ALMA PORTILLO 06/19/2023 04:18:00 Final Observation Date Value Abnormality Reference (Units ) Status Erythrocyte sedimentation rate by Photometric method 06/19/2023 04:18:00 37 Above high normal <30 (mm/hour) Final Performing Location LABORATORY [facility] - [address] [facility] [address]
--- OUTSIDE RECORDS SUMMARY | 2023-07-14 14:35 | External Medical Summary ---
Author Name Unknown Address Unknown Organization : Laboratory Report Ordering Provider Test Date Status ALMA PORTILLO 06/19/2023 07:28:56 Final Observation Date Value Abnormality Reference (Units ) Status Glucose Point of Care 06/19/2023 07:28:56 119 70-120 (mg/dL) Final Performing Location
--- OUTSIDE RECORDS SUMMARY | 2023-07-14 14:35 | External Medical Summary ---
Author Name Unknown Address Unknown Organization K1F:[facility]ATORY [facility] [address] [place] [address] Laboratory Report Ordering Provider Test Date Status ISAEL VELAZQUEZ 06/19/2023 04:18:00 Final Observation Date Value Abnormality Reference (Units ) Status BUN 06/19/2023 04:18:00 12 6-20 (mg/dL) Final Creatinine 06/19/2023 04:18:00 0.8 0.5-1.0 (mg/dL) Final Glomerular filtration rate/1.73 sq M.predicted [Volume Rate/Area] in Serum, Plasma or Blood by Creatinine-based formula (CKD-EPI) 06/19/2023 04:18:00 77 >=60 (mL/min) Final eGFR is calculated based on the CKD-EPI 2020 equation SODIUM 06/19/2023 04:18:00 138 135-146 (m mol/L) Final Potassium 06/19/2023 04:18:00 4.2 3.5-5.1 (m mol/L) Final Cl 06/19/2023 04:18:00 103 98-107 (mm ol/L) Final CO2 06/19/2023 04:18:00 24 22-32 (mmo l/L) Final Anion gap 06/19/2023 04:18:00 11 7-15 (mmol /L) Final Glucose 06/19/2023 04:18:00 123 Above high normal 70 -120 (mg/dL) Final Albumin 06/19/2023 04:18:00 3.4 Below low normal 3.8 -5.0 (g/dL) Final AST (Aspartate aminotransferase) 06/19/2023 04:18:00 17 10-35 (U/L) Fin al Alk Phos 06/19/2023 04:18:00 97 35-130 (U/ L) Final Bilirubin, Total 06/19/2023 04:18:00 0.3 <=1 .2 (mg/dL) Final Calcium 06/19/2023 04:18:00 9.0 8.4-10.2 ( mg/dL) Final Protein 06/19/2023 04:18:00 6.6 6.0-8.3 (g /dL) Final ALT (Alanine aminotransferase) 06/19/2023 04:18:00 12 10-35 (U/L) Fernando jenkins Performing Location LABORATORY [facility] [place] [address]
--- OUTSIDE RECORDS SUMMARY | 2023-07-14 14:35 | External Medical Summary ---
Author Name Unknown Address Unknown Organization : Laboratory Report Ordering Provider Test Date Status ALMA PORTILLO 06/18/2023 11:58:09 Final Observation Date Value Abnormality Reference (Units ) Status Glucose Point of Care 06/18/2023 11:58:09 102 70-120 (mg/dL) Final Performing Location
--- OUTSIDE RECORDS SUMMARY | 2023-07-14 14:35 | External Medical Summary | Summary of Care ---
Author Name Unknown Organization [facility] [address] [facility] [facility] [address] Phone [phone] Care Team Providers Care Backroom Associate Name Role Phone iHlario ANDRADE MD, Collette Kebede Primary Care Provider [phone] Reason for Referral * Evaluate & Treat - Unlimited Visits (Within 3 days (urgent)) - Authorized Specialty Diagnoses / Procedures Referred By Andrea cochran Referred To Contact HOME CARE / Home Care Diagnoses Postoperative wound infection Lindsey Davidson, DO [address] [facility] [place] [address] Referral ID Status Reason Start Date Expiration Date Visits Requested Visits Authorized [id number] Authorized Specialty Services Required 06/19/2023 999 999 Question Answer Referral Priority Within 3 days (urgent) Where should this appointment be scheduled? Alyse Comments Documentation of Yiuz-[id number]-[id number] Encounter Addendum Patient Name: Nenita Whitman I certify that this patient is under my care and that I, or a nurse practitioner or physician's recruiting assistant working with me, had a [id number] encounter that meets the physician zpqf-[id number] encounter requirements with this patient on: 06/19/2023 The encounter with the patient was in whole, or in part, for the following medical condition, which is the primary reason for home health care (List medical condition): Convalescence from surgery I certify that, based on my findings, the following services are medically necessary home health services: Nursing To provide the following care/treatments: (All hospitalists not following the patient after discharge should complete this section): Dressing evaluation/wound check; sterile Primaseal dressing if needed; lab draw Primary Care Physician to follow home care plan of care after discharge: Lety My clinical findings support the need for the above services because: Impaired mobility; recent surgery Further, I certify that my clinical findings support that this patient is homebound (i.e. Absences from home require considerable and taxing effort and are for medical reasons or catholic services or infrequently or of short duration when for other reason) because: Impaired mobility; recent surgery Physician Signature: Date of Signature: Physician Printed Name: Lindsey Davidson DO Discharge Order * Evaluate & Treat - Unlimited Visits (Within 3 days (urgent)) - Authorized Specialty Diagnoses / Procedures Referred By Andrea cochran Referred To Contact ANTI-COAG CLINIC / Pharmacy Diagnoses Paroxysmal atrial fibrillation (HCC) Mode Frias MD [address] [place] [id number] Referral ID Status Reason Start Date Expiration Date Visits Requested Visits Authorized [id number] Authorized Specialty Services Required 06/19/2023 99 99 Question Answer Referral Priority Within 3 days (urgent) Where should this appointment be scheduled? Alyse Comments Anticoagulation referral for management of: Warfarin Indication and INR goal for Warfarin Management: Relevant History: s/p knee wound dehisence d/t hematoma from over anticoag Being d/c'd w/o lovenox bridge. Pls manage coumadin Enoxaparin bridging required? No Minimum frequency patient should be seen in person for medication management: as appropriate per clinical condition and patient status By my signature, I understand that my patient Nenita Whitman will have her medication therapy managed by the [facility] ([facility]) per established policies, procedures, and protocols. I also certify that this referral may serve as an initiation of service for the management of drug therapy in the above noted patient. [facility] providers will be responsible for scheduling patient visits, obtaining appropriate laboratory studies, and adjusting medication management therapy per patient's need, in addition to those roles spelled out in the clinic policy, procedures, and drug management protocols. I understand that the service provided by the [facility] Clinic is voluntary and have informed patient that they can refuse the service at their discretion. I am aware that the [facility] Clinic will provide me with a copy of the patient encounter via my [employer]. I authorize the [facility] Clinic to carry out these activities on my behalf. I consider this program to be a necessary part of the patient's medical care. Mode Frias MD Discharge Order Reason for Visit * Reason Comments Infection * Auth/Cert Specialty Diagnoses / Procedures Referred By Andrea cochran Referred To Contact Referral ID Status Reason Start Date Expiration Date Visits Re quested Visits Authorized [id number] Encounter Details Date Type Department Care Team (Latest Contact Info) Description 06/15/2023 1:50 PM EST - 06/19/2023 3:15 PM EST Hospital Encounter [facility] 6th Floor [address] [place] [address] Lindsey Eller MD [address] [facility] [place] [address] Lindsey Davidson DO [address] [place] [address] Various: [email or web address],[email or web address] Discharge Disposition: Home with Services Allergies Active Allergy Reactions Criticality Noted Date Comments Bee Venom Edema Other 01/10/2016 Lisinopril Cough 09/04/2016 documented as of this encounter (statuses as of 06/20/2023) Medications Medication Sig Dispensed Refills Start Date [...] 1 Tablet before bedtime. 0 2 Active Atorvastatin Calcium 80 MG Oral Tablet (Lipitor) TAKE 1 TABLET BY MOUTH EVERY DAY 90 Tablet 3 2 Active Warfarin Sodium 5 MG Oral Tablet (Coumadin)Indication s:Recent cerebrovascular accident (CVA),Paroxysmal atrial fibrillation (HCC) TAKE 1 1/2 TABLETS (7.5mg) BY MOUTH FRIDAYS AND 1 TABLET (5mg) ALL OTHER EVENINGS OR DIRECTED BY [facility]. 105 Tablet 3 2 Active Multi Vitamin [...] EVERY MORNING 90 Tablet 3 3 Active Ciprofloxacin HCl 500 MG Oral Tablet (Cipro) Take 1 Tablet by mouth in the morning and 1 Tablet before bedtime - do all this for 7 days. 14 Tablet 0 3 06/26/20 23 Active Lactobacillus Oral Tablet Take 1 Tablet [...] Pain, Severe. 20 Tablet 0 3 Active Enoxaparin Sodium 100 MG/ML Injection Solution Prefilled Syringe (Lovenox) Inject 100 mg under the skin in the morning and 100 mg before bedtime. Do all this for 7 days. 14 mL 0 3 06/19/20 23 Discontinued Sennosides 8.6 MG Oral Tablet (Senokot) Take 2 Tablets by mouth in the morning. 140 Tablet 0 3 06/15/20 23 Discontinued oxyCODONE-Acetaminop hen 5-325 MG Oral Tablet (Percocet) Take 1 Tablet by mouth every 4 hours as needed for Pain, Severe. 30 Tablet 0 3 06/19/20 23 Discontinued oxyCODONE-Acetaminop hen 5-325 MG Oral Tablet (Percocet)Indication s:Status post total right knee replacement Take 1 Tablet by mouth every 6 hours as needed for Pain, Severe. 20 Tablet 0 3 06/19/20 23 Discontinued oxyCODONE-Acetaminop hen 5-325 MG Oral Tablet (Percocet)Indication s:Status post total right knee replacement Take 1 Tablet by mouth every 8 hours as needed for Pain, Severe for up to 5 days. 15 Tablet 0 3 06/19/20 23 Discontinued documented as of this encounter (statuses as of 06/20/2023) Active Problems Problem Noted Date Diagnosed Date Wound dehiscence, surgical 06/15/2023 Postoperative wound infection 06/15/2023 Other iron deficiency anemias 05/22/2023 Postoperative anemia due to acute blood loss History of total knee arthroplasty, right 2022 Alcohol abuse 05/11/2023 Atherosclerosis of koi co ronary artery without angina pectoris 09/10/2022 [...] as of this encounter (statuses as of 06/20/2023) Resolved Problems Problem Noted Date Diagnosed Date Resolved Date Atherosclerotic heart diseas e of koi coronary artery with other forms of angina [...] as of this encounter (statuses as of 06/20/2023) Immunizations Name Administration Dates Next Due COVID-19 mRNA, LNP-s, No Pre serve, 2-Dose Series ([employer]) 05/16/2021,09/23/2020,08/26/2020 Covid-19, Mrna, Lnp-s, Pf, B ivalent, [...] on file documented as of this encounter Last Filed Vital Signs Vital Sign Reading Time Taken Comments Blood Pressure 175/54 06/19/2023 7:27 AM EST Pulse 65 06/19/2023 7:27 AM EST Temperature 36.8 C (98.2 F) 06/19/2023 7:27 AM ES T Respiratory Rate 16 06/19/2023 7:27 AM EST Oxygen Saturation 92% 06/19/2023 7:27 AM EST Inhaled Oxygen Concentration - - Weight 94.3 kg (208 lb) 06/15/2023 1:41 PM EST Height 162.6 cm (5' 4") 06/15/2023 1:41 PM EST Body Mass Index 35.7 06/15/2023 1:41 PM EST documented in this encounter Functional Status Functional Status Response [...] No 06/15/2023 documented as of this encounter Discharge Summaries * Lindsey Davidson, - 06/19/2023 3:15 PM EST [address] [address] Admission Date: 06/15/2023 Discharge Date: 06/19/2023 DISCHARGE DIAGNOSES: Active Hospital Problems Diagnosis *Principal Diagnosis - Postoperative wound infection Wound dehiscence, surgical History of total knee arthroplasty, right Body mass index (BMI) of 40.0 to 44.9 in adult (HCC) SALVADOR on CPAP Type 2 diabetes mellitus without complications (HCC) Paroxysmal atrial fibrillation (HCC) Essential hypertension with goal blood pressure less than 140/90 Resolved Hospital Problems No resolved problems to display. Other Significant Diagnoses: none CONDITION ON DISCHARGE: stable Cognition: normal DISPOSITION ON DISCHARGE: home with home health FOLLOW-UP: Future Appointments Appt Date/Time Provider Department 06/22/2023 6:45 AM [facility] 06/29/2023 11:00 AM GambinoWilfredo villalpando [facility], [facility] 06/30/2023 6:15 AM [facility] 07/02/2023 11:00 AM Balta Hyde PA-C Orthopaedics [facility] 09/30/2023 9:20 AM Collette Rich III, MD Family Practice [facility] 10/01/2023 3:15 PM Efraín Leone MD Hematology/Oncology [facility] 11/12/2023 11:20 AM Margarita Figueredo PA-C Dermatology [facility] 02/25/2024 9:30 AM [id number] [facility] Radiology [facility] 1st [facility] 04/21/2024 10:30 AM Viktoriya White CRNP Sleep Disorders Ctr [facility] The patient will follow up for wound check and x-rays. Discharge instructions were thoroughly reviewed with the patient prior to discharge. If any questions or concerns arise, the patient, family or home health nurse are to contact our office. Postop lab draw as outpatient scheduled with home health nurse - expected 06/22/2023 MEDICATIONS ON DISCHARGE: MEDICATION UPDATES AT DISCHARGE START taking these medications INSTRUCTIONS Acidophilus Probiotic 0.5 MG Tabs Take 1 Tablet by mouth in the morning and 1 Tablet at noon and 1 Tablet in the evening - Take with meals - Do all this for 10 days. ciprofloxacin 500 MG Tablet Commonly known as: Cipro Take 1 Tablet by mouth in the morning and 1 Tablet before bedtime - do all this for 7 days. GNP Senna Lax 8.6 MG Tablet Generic drug: senna Start taking on: June 20, 2023 Notes to patient: Used to treat constipation Take 2 Tablets by mouth in the morning. CHANGE how you take these medications INSTRUCTIONS oxyCODONE-acetaminophen 5-325 mg per tab Commonly known as: Percocet What changed: Another medication with the same name was removed. Continue taking this medication, and follow the directions you see here. Notes to patient: Used to ease pain Take 1 Tablet by mouth every 6 hours as needed for Pain, Severe. CONTINUE taking these medications INSTRUCTIONS amiodarone 200 MG Tablet Commonly known as: Cordarone Notes to patient: Used to treat certain types of abnormal heart rhythms TAKE 1 TABLET BY MOUTH EVERY MORNING amLODIPine 5 MG Tablet Commonly known as: Norvasc Notes to patient: Used to treat high blood pressure Take 1 Tablet by mouth in the morning. aspirin enteric coated 81 MG Tbec Notes to patient: Assists in lowering the risk of heart attack and stroke by preventing blood clotsfrom forming Take by mouth 1 Tablet in the morning. atorvaSTATin 80 MG Tablet Commonly known as: Lipitor Notes to patient: Used to lower bad cholesterol, lower triglycerides, raise good cholesterol (HDL),and slow the progression of heart disease TAKE 1 TABLET BY MOUTH EVERY DAY Cephalexin 500 MG Capsule Commonly known as: Keflex Notes to patient: Used to treat bacterial infections Take 1 Capsule by mouth in the morning and 1 Capsule at noon and 1 Capsule in the evening and 1 Capsule before bedtime. CPAP Notes to patient: Provides gentle pressure to keeps your airways open as you sleep, to breathe easier every night at bedtime. DULoxetine 60 MG Cpep Commonly known as: Cymbalta Notes to patient: Used to treat depression, anxiety, and fibromyalgia. Used to ease long-term pain problems and help painful nerve diseases and diabetic nerve problems. TAKE 2 CAPSULES BY MOUTH EVERY MORNING Ezetimibe 10 MG Tablet Commonly known as: Zetia Notes to patient: Used to lower cholesterol TAKE 1 TABLET BY MOUTH EVERY DAY Ferrous Sulfate 325 (65 FE) MG Tablet Commonly known as: Feosol Notes to patient: Used to treat and prevent iron deficiency anemia Take 1 Tablet by mouth every other day. Furosemide 40 MG Tablet Commonly known as: Lasix Notes to patient: Used to get rid of extra fluid and treat high blood pressure (Diuretic/water pill) TAKE 1 TABLET BY MOUTH EVERY MORNING losartan 100 MG Tablet Commonly known as: Cozaar Notes to patient: Used to treat high blood pressure, protect kidney function in patients with diabetes who have protein loss, and lower the chance of stroke in people with high blood pressure and a heart problem called left ventricular hypertrophy Take 1 Tablet by mouth in the morning. magnesium chloride ER 64 MG Tbec Commonly known as: Mag-64 Notes to patient: Used to treat or prevent low magnesium levels Take 1 Tablet by mouth in the morning and 1 Tablet before bedtime. metFORMIN 500 MG Tablet Commonly known as: Glucophage Notes to patient: Used to lower blood sugar in patients with high blood sugar (diabetes) TAKE 2 TABLETS BY MOUTH TWO TIMES DAILY WITH MORNING AND EVENING MEALS. metoprolol succinate XL 25 MG Tb24 Commonly known as: toPROL XL Notes to patient: Used to treat high blood pressure Take 1 Tablet by mouth in the morning. Multi Vitamin Daily Tabs Notes to patient: supplement Myrbetriq 50 MG Tb24 Generic drug: Mirabegron ER Notes to patient: Used to treat an overactive bladder Take 1 Tablet by mouth in the morning. oxygen Gas Notes to patient: Used to ease shortness of breath and promote oxygenation 3 LPM bled through CPAP 14 cwp Solifenacin Succinate 5 MG Tablet Commonly known as: VESIcare Notes to patient: used to treat neurogenic detrusor overactivity (a bladder control condition Take 1 Tablet by mouth in the morning. vitamin b 12 1000 MCG Tabs Commonly known as: Cyanocobalamin Notes to patient: Used to help with some kinds of anemia and to treat or prevent low vitamin B12 Take 1 Tablet by mouth in the morning. Warfarin Sodium 5 MG Tablet Commonly known as: Coumadin Notes to patient: Used to treat or prevent blood clots and lower the chance of heart attack, stroke, and Take as directed. If you are unsure how to take this medication, talk to your nurse or doctor. Original instructions: TAKE 1 1/2 TABLETS (7.5mg) BY MOUTH FRIDAYS AND 1 TABLET (5mg) ALL OTHER EVENINGS OR DIRECTED BY ANTICOAG CLINIC. STOP taking these medications Enoxaparin 100 MG/ML injection Commonly known as: Lovenox ALLERGIES: Bee venom and Lisinopril INSTRUCTIONS: Activity: Do not shower until seen at your 1st postoperative appointment. Sponge bathing recommended. Use a walker at all times as instructed by your therapist. Avoid sudden movements. Maintain knee in extended position with immobilizer in place at all times. This may be removed by home nursing for dressing evaluation and change. No bending of the right knee. Weightbearing as tolerated with the knee immobilizer in place. Maintain limb elevation with 2 pillows as much as possible Apply ice to your knee intermittently 20 minutes every hour for pain/swelling. Do not drive until cleared by physician. Diet: normal diet ADMISSION HISTORY & PHYSICAL EXAM (focused): 67-year-old female previously presented to [facility] today regarding a right knee wound and dehiscence which occurred over the course of this past week. She describes some degree of drainage as well as odor over the past few days. She underwent previous right total knee arthroplasty on 05/11/2023. She experienced issues with postoperative swelling as well as some blister formation over the anterior knee however this essentially resolved after the 1st few weeks following her procedure. She reports doing well from a rehab standpoint. She does not report any fevers, chills or nightsweats. She has been noticing increasing range of motion as well as improvement in her mobility. How ever given the development of wound dehiscence with associated superficial infection, recommendation was to proceed with wound debridement with the possibility of wound VAC application as well as polyethylene exchange versus two-stage revision procedure. After thorough discussion, she was agreeableto proceed. HOSPITAL COURSE (focused): The patient was admitted on 06/15/2023 for IV antibiotics after obtaining wound cultures as well assynovial fluid analysis. Patient is INR was normalized with holding Coumadin medication and use of vitamin K. Synovial fluid analysis revealed no bacteria or growth on culture. Wound cultures grew out Pseudomonas. MRI imaging was obtained demonstrating evidence of superficial wound without violation of joint capsule. No deep intra-articular infection identified. Patient underwent wound debridement with incisional VAC application after intra operative findings demonstrated no capsular violation or concern for deep infection. Postoperative antibiotics were continued and consistent with coverage for Pseudomonas. DVT prophylaxis was initiated with Lovenox and Coumadin. SCDs were also utilized. Pain was controlled with a combination of oral and IV medications. Postoperative H&H was diminished but stable. Patient was asymptomatic with respect to her anemia. Vitals remained stable. Dressing was changed on postoperative day 2 demonstrating a well-approximated incision without evidence of active drainage or acute signs of infection. At this point the wound VAC was discontinued in converted to a Primaseal dressing. Repeat inflammatory markers were obtained. Patient had an uneventful hospital stay and was deemed appropriate for discharge to home with home health on postoperative day 2.Patient was recommended to continue Coumadin for DVT prophylaxis without Lovenox bridge due to previous issues with postoperative hematoma leading to wound necrosis/dehiscence. Patient was dischargedon appropriate culture based oral antibiotics. She will maintain the right lower extremity in extension at all times which will be supported with use of a knee immobilizer. She will maintain elevation as much as possible to minimize edema of the right lower extremity. Home health will be ordered for nursing care for wound check/dressing evaluation and possible change as well as lab draws. Coumadin will be managed through the Coumadin Clinic. Operations & Procedures: Right knee wound debridement with incisional VAC application Complications: none significant SIGNIFICANT RESULTS: Vital Signs (last recorded): Most Recent Systolic BP: 175 mmHg (06/19/23726) Most Recent Diastolic BP: 54 mmHg (06/19/23726) Pulse: 65 (06/19/23726) Resp: 16 (06/19/23726) Most Recent Temperature: 36.78 C (06/19/23726) Weight: 94.3 kg (208 lb) (06/15/23 1341) SpO2: 92 % (06/19/23726) O2 flow rate: 2 L/MIN (06/17/23 1745) Labs: CHEMISTRY: BUN, Creatinine, GFR Estimated, Sodium, Potassium, Chloride, Carbon Dioxide, Glucose, Calcium (see below for most recent value): Lab Results Component Value Date/Time BUN 12 06/19/2023 04:18 AM BUN 24 (H) 07/08/2019 09:16 AM CREAT 0.8 06/19/2023 04:18 AM CREAT 0.8 07/08/2019 09:16 AM GFRESTIMATED >60.0 07/08/2019 09:16 AM NA 138 06/19/2023 04:18 AM NA 141 07/08/2019 09:16 AM POTASSIUM 4.2 06/19/2023 04:18 AM POTASSIUM 4.2 07/08/2019 09:16 AM CL 103 06/19/2023 04:18 AM CL 99 07/08/2019 09:16 AM CO2 24 06/19/2023 04:18 AM CO2 28 07/08/2019 09:16 AM CA 9.0 06/19/2023 04:18 AM CA 9.9 07/08/2019 09:16 AM BLOOD COUNT: WBC, Hgb, Platelets (see below for most recent value): Lab Results Component Value Date/Time WBC 5.20 06/19/2023 04:18 AM WBC 6.93 05/04/2017 07:35 AM HGB 7.7 (L) 06/19/2023 04:18 AM HGB 7.1 (L) 05/19/2023 12:00 AM HGB 13.4 05/04/2017 07:35 AM PLT 287 06/19/2023 04:18 AM PLT 257 05/04/2017 07:35 AM Imaging (focused): X-rays of the right knee demonstrated a stable total knee prosthesis without evidence of complication. Soft tissue defect within the anterior soft tissues noted. MRI of the right knee demonstrated evidence of deep subcutaneous fluid collection within the anterior right knee. No evidence of prosthetic loosening. CONSULTS ORDERED: ADULT PHYSICAL THERAPY CONSULT IP ADULT OCCUPATIONAL THERAPY CONSULT IP CARE MANAGEMENT CONSULT IP GENERAL INTERNAL MEDICINE CONSULT IP ADULT PHYSICAL THERAPY CONSULT IP ADULT OCCUPATIONAL THERAPY CONSULT IP CARE MANAGEMENT CONSULT IP ANTI-COAGULATION CONSULT IP WOUND CONSULT IP REFERRING PHYSICIAN: Ref: [id number]] NO STREET ADDRESS AVAILABLE None (office) None (fax) PRIMARY CARE PROVIDER: PCP: Collette Rich III, MD [address] [place] [address] / [place] [address] (office) [phone] (fax) Note: To contact a physician responsible for this patients hospital care, please call [facility] [phone]. documented in this encounter Discharge Instructions * Discharge Instr - AVS* Lindsey Davidson DO - 06/19/2023 1:21 PM EST Discharge Date: 06/19/2023 Check your Patient Education Brochure for further information. If you have any further questions call your physician at [phone]. The information below provides you with the instructions you need to be following after discharge. If you have any questions, please ask before leaving. Please carry this letter with you when you seeyour doctor in the clinic. If you have questions, you can reach us at the numbers above. TOTAL KNEE REPLACEMENT POST-OPERATIVE INSTRUCTIONS: Follow up as scheduled with Dr Davidson for re-evaluation and x-ray. Do not shower until seen at your next postoperative appointment. Sponge bathing recommended. Use a walker at all times as instructed by your therapist. Avoid sudden movements. Take pain medication as prescribed. Take antibiotic medication as prescribed. Take blood thinner as prescribed and further coordinated by the Coumadin Clinic Maintain right lower extremity in extension with use of knee immobilizer at all times. No bending right knee. The immobilizer may be removed by home nursing for wound/dressing evaluation but the knee must remain in an extended position. Weightbearing as tolerated with knee immobilizer in place. Resume preoperative home medications as instructed. Apply ice to your knee intermittently 20 minutes every hour for pain/swelling. Do not drive until cleared by physician. If you anticipate the need for a refill on your medication and the weekend is approaching, please call the office before noon on Thursday. No refills will be called in over the weekend. If you have any questions or concerns, please call the office at the number provided. * Pharmacy Instr - AVS* Kulwant Mckeon, [facility] - 06/17/2023 7:21 PM EST Warfarin dosing instructions for after discharge: You should have a prescription for Warfarin 5 mg tablets. Please take the following doses of warfarin by mouth after Discharge: Date Dose using warfarin 5 mg Tablets 06/19 Take 1 & 1/5 tablets = 7.5 mg 12/2 Take 1 tablet = 5 mg 12/3 Take 1 tablet = 5 mg 12/4 Take 1 tablet = 5 mg 12/5 Take 1 tablet = 5 mg The anticoagulation clinic pharmacist will provide you with further dosing and appointment instructions. If you have any questions regarding your anticoagulation therapy, please Contact An[facility]agulation [facility] at [phone] or . Please share the following information with your provider: You were continued on WARFARIN for . This is an Existing diagnosis. While you were in the hospital, you medication doses received and your corresponding labs were: INR Date/Time Value Ref Range Status 06/17/2023 07:09 AM 1.4 (H) 0.8 - 1.2 Final 06/16/2023 05:46 PM 2.2 (H) 0.8 - 1.2 Final 06/16/2023 04:23 AM 2.9 (H) 0.8 - 1.2 Final HGB Date/Time Value Ref Range Status 06/17/2023 04:52 AM 9.1 (L) 12.0 - 15.3 g/dL Final HCT Date/Time Value Ref Range Status 06/17/2023 04:52 AM 29.6 (L) 36.0 - 45.2 % Final PLT Date/Time Value Ref Range Status 06/17/2023 04:52 AM 320 140 - 400 K/uL Final * Care Mgmt Instr - AVS* Lorraine Rodrigez, RN - 06/19/2023 1:51 PM EST [facility] home health is scheduled to see you on 06/22/23 If you have Home Care Services, you should have a visit within 48 hours. documented in this encounter Progress Notes * Richmond Mahajan RP - 06/19/2023 1:50 PM EST PHARMACY DISCHARGE MEDICATION RECONCILIATION REVIEW [facility] [address] Name: Nenita Whitman Location: [facility] 6B-6012/D Date: 06/19/2023 Time: 1:49 PM This discharge medication reconciliation was reviewed by a pharmacist and no corrections or interventions were required. * Mode Frias MD - 06/19/2023 10:09 AM EST Images from the original note were not included. [facility] 6B-6012/D INTERVAL HISTORY: 67 year old female with a PMHx of DM2, pAF, SALVADOR on CPAP, s/p total knee arthroplasty on 05/11/23 admitted to the orthopedic service today for postoperative wound infection and wound dehiscence. She was seen in consultation at the request of orthopedics for medical management of the patient's comorbi dities and medications No complaints No events overnight Now on lovenox to coumadin bridge Wound cx showed burnett sensitive pseudomonas Case discussed with ortho, wound cx was superficial, not deep Would like to go home No nausea, vomiting or diarrhea. No chest pain or shortness of breath. No fevers, chill or night sweats. All other ROS examined in detail and are negative except as documented in HPI. Objective Physical Exam Most Recent Vital Signs: BP: 175 mmHg/54 mmHg (06/19/23726) Pulse: 65 (06/19/23726) Temp: 36.78 C (06/19/23726) Resp: 16 (06/19/23726) SpO2: 92 % (06/19/23726) Physical Exam Vitals and nursing note reviewed. Exam conducted with a van driver present. Constitutional: General: She is not in acute distress. Appearance: Normal appearance. Cardiovascular: Rate and Rhythm: Normal rate and regular rhythm. Pulses: Normal pulses. Heart sounds: Normal heart sounds. No murmur heard. No friction rub. No gallop. Pulmonary: Effort: Pulmonary effort is normal. No respiratory distress. Breath sounds: Normal breath sounds. No wheezing, rhonchi or rales. Abdominal: General: Abdomen is flat. Bowel sounds are normal. Palpations: Abdomen is soft. Musculoskeletal: Right lower leg: No edema. Left lower leg: No edema. Skin: General: Skin is warm and dry. Capillary Refill: Capillary refill takes less than 2 seconds. Neurological: General: No focal deficit present. Mental Status: She is alert and oriented to person, place, and time. Negative Pressure Wound Therapy (NPWT) Anterior;Right Knee (Active) Number of days: 2 Peripheral Line Right Antecubital 20 Gauge (Active) Number of days: 4 Peripheral Line Right Hand 20 Gauge (Active) Number of days: 3 STUDIES: Encounter Orders Labs and other studies reviewed with pertinent findings noted below: Lab results within last 7 days (see chart for full results) Units 06/19/238 06/18/23 0541 06/17/23 0452 HGB g/dL 7.7* 7.9* 9.1* HCT % 24.6* 25.9* 29.6* WBC K/uL 5.20 7.59 5.01 PLT K/uL 287 305 320 Lab results within last 7 days (see chart for full results) Units 06/19/238 06/18/23 0428 06/17/23 0452 Sodium mmol/L 138 138 138 Potassium mmol/L 4.2 4.5 4.1 Chloride mmol/L 103 102 102 CO2 mmol/L 24 24 27 BUN mg/dL 12 10 13 Creatinine mg/dL 0.8 0.7 0.8 Assessment and Plan IMPRESSION : Principal Problem: Postoperative wound infection Active Problems: Essential hypertension with goal blood pressure less than 140/90 Type 2 diabetes mellitus without complications (HCC) Paroxysmal atrial fibrillation (HCC) SALVADOR on CPAP Body mass index (BMI) of 40.0 to 44.9 in adult (HCC) History of total knee arthroplasty, right Wound dehiscence, surgical Resolved Problems: * No resolved hospital problems. * DIFFERENTIAL AND PLAN: 67 year old female with a PMHx of DM2, pAF, SALVADOR on CPAP, s/p total knee arthroplasty on 05/11/23 admitted to the orthopedic service today for postoperative wound infection and wound dehiscence. She was seen in consultation at the request of orthopedics for medical management of the patient's comorbi dities and medications Hold metformin Oral cipro for d/c med (discharge rx pended) Probiotics TID to prevent c diff (discharge rx pended) Wound care consult d/t wound vac Case disucssed with ortho Ok to d/c from medical perspective Case discussed with pharmacy Defer lovenox bridge as outpt. Cont coumadin Cont current meds Warfarin Sodium (Coumadin) tab 7.5 mg Acetaminophen (Tylenol) tab 975 mg Bisacodyl (Dulcolax) supp 10 mg cefepime in D5W (Maxipime) ivpb (THREE hour infusion) 1 g diphenhydrAMINE (Benadryl) cap 25 mg diphenhydrAMINE (Benadryl) inj 50 mg Docusate Sodium (Colace) cap 100 mg [START ON 06/20/2023] Drug Level Check - Vancomycin Random Enoxaparin (Lovenox) inj 40 mg fleet bisacodyl (Bisacodyl) enema 1 Enema house antacid (Mi-Acid II) oral susp 30 mL melatonin tab 3 mg Menthol (Clinton) cough drop 1 Lozenge milk of magnesia (Mom) oral susp 30 mL naloxone (Narcan) 0.4 MG/ML inj 0.08 mg ondansetron (Zofran) inj 4 mg ondansetron (Zofran) tab 4 mg oxyCODONE (Oxy IR) tab 10 mg senna (Senokot) 2 Tablet vancomycin (Vancocin) 750 mg in NSS 100 mL ivpb warfarin check daily dose (PHARMACIST MANAGED) [START ON 06/21/2023] Acetaminophen (Tylenol) tab 650 mg amiodarone (Cordarone) tab 200 mg amLODIPine (Norvasc) tab 5 mg atorvaSTATin (Lipitor) tab 80 mg CYANOCOBALAMIN (vitamin B-12) tab 1,000 mcg dextrose 50 % inj 25 mL dextrose 50 % inj 50 mL Ezetimibe (Zetia) tab 10 mg Ferrous Sulfate (Feosol) tab 325 mg glucagon (Glucagen) inj 1 mg Glucose (Glutose 15) 40 % gel 15 g of glucose Glucose (Glutose 15) 40 % gel 30 g of glucose glucose chew tab 16 g HYDROmorphone (Dilaudid) inj 0.5 mg insulin aspart (NovoLOG) inj losartan (Cozaar) tab 100 mg magnesium chloride ER (Mag-64) tab 64 mg metoprolol succinate XL (toPROL XL) tab 25 mg naloxone (Narcan) 0.4 MG/ML inj 0.08 mg oxyCODONE (Oxy IR) tab 5 mg tolterodine LA ER (Detrol LA) cap 4 mg traMADol (Ultram) tab 50 mg vancomycin per pharmacy order PHARMACOLOGIC VTE PROPHYLAXIS: Enoxaparin warfarin check daily dose (PHARMACIST MANAGED) Warfarin Sodium CODE STATUS: Full Code EXPECTED DISCHARGE DATE: 06/20/2023 * Kulwant Mckeon, [facility] - 06/19/2023 7:26 AM EST Images from the original note were not included. PHARMACY ANTICOAGULATION WARFARIN (Coumadin) Assessment [address] [address] Name: Nenita Whitman Location: [facility] 6B-6012/D Date: 06/19/2023 Time: 7:26 AM Nenita Whitman is a 67 year old female admitted for Postoperative wound infection. Pharmacy was consulted for warfarin dosing and monitoring. Anticoagulation Therapy Goals Indication for Anticoagulation: Atrial fibrillation/flutter, Other (please specify) Other please comment: Post op prophylaxis Anticipated Duration of Therapy: Lifetime Target INR: 1.8-2.2 (Post-ortho surgery) Prior to Admission Management Anticoagulation Managed By: Anticoagulation Clinic Tablet Size/Strength: 5 mg Anticoagulation Regimen: 7.5 mg Fri, 5 mg all other days Anticoagulation Episode Summary Current INR goal: 2.0-3.0 TTR: 82.8% (1 y) Next INR check: 06/29/2023 INR from last check: 3.0 (06/15/2023) Most recent INR: 1.1 (06/19/2023) Weekly max warfarin dose: Target end date: Indefinite INR check location: Preferred lab: Send INR reminders to: Indications Recent cerebrovascular accident (CVA)(Primary)(Resolved) [Z86.73] Paroxysmal atrial fibrillation (HCC) [I48.0] Comments: Anticoagulation Care Providers Provider Role Specialty Phone number Feliberto Diggs, Cardiovascular Medicine [phone] Labs INR Date/Time Value Ref Range Status 06/19/2023 04:18 AM 1.1 0.8 - 1.2 Final 06/18/2023 04:28 AM 1.2 0.8 - 1.2 Final 06/17/2023 07:09 AM 1.4 (H) 0.8 - 1.2 Final HGB Date/Time Value Ref Range Status 06/19/2023 04:18 AM 7.7 (L) 12.0 - 15.3 g/dL Final HCT Date/Time Value Ref Range Status 06/19/2023 04:18 AM 24.6 (L) 36.0 - 45.2 % Final PLT Date/Time Value Ref Range Status 06/19/2023 04:18 AM 287 140 - 400 K/uL Final Objective Warfarin Administrations (last 720 hours) Date/Time Action Medication Dose 06/18/232025 Given Warfarin Sodium (Coumadin) tab 10 mg 10 mg Assessment & Plan Assessment Dietary Assessment: Normal/expected PO intake Today's INR : Subtherapeutic Plan Warfarin Plan: Give Warfarin Specify Warfarin Dose: 7.5 mg by mouth tonight Is the patient receiving a Bridging Agent: Yes (Lovenox for dvt prophylaxis, can be stopped once INR is >1.8) Warfarin Patient Education : Nellie Mckeon RPh * Mode Frias MD - 06/18/2023 11:50 AM EST Images from the original note were not included. [facility] 6B-6012/D INTERVAL HISTORY: 67 year old female with a PMHx of DM2, pAF, SALVADOR on CPAP, s/p total knee arthroplasty on 05/11/23 admitted to the orthopedic service today for postoperative wound infection and wound dehiscence. She was seen in consultation at the request of orthopedics for medical management of the patient's comorbi dities and medications No complaints No events overnight Now on lovenox to coumadin bridge Wound cx showed pseudomonas Case discussed with ortho, wound cx was superficial, not deep No nausea, vomiting or diarrhea. No chest pain or shortness of breath. No fevers, chill or night sweats. All other ROS examined in detail and are negative except as documented in HPI. Objective Physical Exam Most Recent Vital Signs: BP: 158 mmHg/56 mmHg (06/18/23 0745) Pulse: 56 (06/18/23 0745) Temp: 36.28 C (06/18/2345) Resp: 16 (06/18/23744) SpO2: 93 % (06/18/23744) Physical Exam Vitals and nursing note reviewed. Exam conducted with a van driver present. Constitutional: General: She is not in acute distress. Appearance: Normal appearance. Cardiovascular: Rate and Rhythm: Normal rate and regular rhythm. Pulses: Normal pulses. Heart sounds: Normal heart sounds. No murmur heard. No friction rub. No gallop. Pulmonary: Effort: Pulmonary effort is normal. No respiratory distress. Breath sounds: Normal breath sounds. No wheezing, rhonchi or rales. Abdominal: General: Abdomen is flat. Bowel sounds are normal. Palpations: Abdomen is soft. Musculoskeletal: Right lower leg: No edema. Left lower leg: No edema. Skin: General: Skin is warm and dry. Capillary Refill: Capillary refill takes less than 2 seconds. Neurological: General: No focal deficit present. Mental Status: She is alert and oriented to person, place, and time. Negative Pressure Wound Therapy (NPWT) Anterior;Right Knee (Active) Number of days: 1 Peripheral Line Right Antecubital 20 Gauge (Active) Number of days: 3 Peripheral Line Right Hand 20 Gauge (Active) Number of days: 2 STUDIES: Encounter Orders Labs and other studies reviewed with pertinent findings noted below: Lab results within last 7 days (see chart for full results) Units 06/18/23 0541 06/17/2345106/16/233 HGB g/dL 7.9* 9.1* 8.9* HCT % 25.9* 29.6* 27.6* WBC K/uL 7.59 5.01 4.81 PLT K/uL 305 320 327 Lab results within last 7 days (see chart for full results) Units 06/18/23 0428 06/17/232 06/16/23 0423 Sodium mmol/L 138 138 138 Potassium mmol/L 4.5 4.1 3.9 Chloride mmol/L 102 102 100 CO2 mmol/L 24 27 27 BUN mg/dL 10 13 16 Creatinine mg/dL 0.7 0.8 0.9 Assessment and Plan IMPRESSION : Principal Problem: Postoperative wound infection Active Problems: Essential hypertension with goal blood pressure less than 140/90 Type 2 diabetes mellitus without complications (HCC) Paroxysmal atrial fibrillation (HCC) SALVADOR on CPAP Body mass index (BMI) of 40.0 to 44.9 in adult (HCC) History of total knee arthroplasty, right Wound dehiscence, surgical Resolved Problems: * No resolved hospital problems. * DIFFERENTIAL AND PLAN: 67 year old female with a PMHx of DM2, pAF, SALVADOR on CPAP, s/p total knee arthroplasty on 05/11/23 admitted to the orthopedic service today for postoperative wound infection and wound dehiscence. She was seen in consultation at the request of orthopedics for medical management of the patient's comorbi dities and medications Hold metformin Cont vanc/cefepime Await final cx sensitivities to determine final abx recs. Can consider bactrim/cipro as an oral agent Wound care consult d/t wound vac Case disucssed with ortho Cont current meds Warfarin Sodium (Coumadin) tab 10 mg Acetaminophen (Tylenol) tab 975 mg Bisacodyl (Dulcolax) supp 10 mg cefepime in D5W (Maxipime) ivpb (THREE hour infusion) 1 g diphenhydrAMINE (Benadryl) cap 25 mg diphenhydrAMINE (Benadryl) inj 50 mg Docusate Sodium (Colace) cap 100 mg [START ON 06/20/2023] Drug Level Check - Vancomycin Random Enoxaparin (Lovenox) inj 40 mg fleet bisacodyl (Bisacodyl) enema 1 Enema house antacid (Mi-Acid II) oral susp 30 mL melatonin tab 3 mg Menthol (Clinton) cough drop 1 Lozenge milk of magnesia (Mom) oral susp 30 mL naloxone (Narcan) 0.4 MG/ML inj 0.08 mg ondansetron (Zofran) inj 4 mg ondansetron (Zofran) tab 4 mg oxyCODONE (Oxy IR) tab 10 mg senna (Senokot) 2 Tablet vancomycin (Vancocin) 750 mg in NSS 100 mL ivpb warfarin check daily dose (PHARMACIST MANAGED) [START ON 06/21/2023] Acetaminophen (Tylenol) tab 650 mg amiodarone (Cordarone) tab 200 mg amLODIPine (Norvasc) tab 5 mg atorvaSTATin (Lipitor) tab 80 mg CYANOCOBALAMIN (vitamin B-12) tab 1,000 mcg dextrose 50 % inj 25 mL dextrose 50 % inj 50 mL Ezetimibe (Zetia) tab 10 mg Ferrous Sulfate (Feosol) tab 325 mg glucagon (Glucagen) inj 1 mg Glucose (Glutose 15) 40 % gel 15 g of glucose Glucose (Glutose 15) 40 % gel 30 g of glucose glucose chew tab 16 g HYDROmorphone (Dilaudid) inj 0.5 mg insulin aspart (NovoLOG) inj losartan (Cozaar) tab 100 mg magnesium chloride ER (Mag-64) tab 64 mg metoprolol succinate XL (toPROL XL) tab 25 mg naloxone (Narcan) 0.4 MG/ML inj 0.08 mg oxyCODONE (Oxy IR) tab 5 mg tolterodine LA ER (Detrol LA) cap 4 mg traMADol (Ultram) tab 50 mg vancomycin per pharmacy order I spent a total of 51 minutes coordinating, documenting, and providing care for this patient excluding time spent in the performance of separately billed services. PHARMACOLOGIC VTE PROPHYLAXIS: Enoxaparin warfarin check daily dose (PHARMACIST MANAGED) Warfarin Sodium CODE STATUS: Full Code EXPECTED DISCHARGE DATE: 06/19/2023 * Kulwant Mckeon [facility] - 06/18/2023 8:22 AM EST Images from the original note were not included. PHARMACY ANTICOAGULATION WARFARIN (Coumadin) Assessment [address] [address] Name: Nenita Whitman Location: [facility] 6B-6012/D Date: 06/18/2023 Time: 8:22 AM Nenita Whitman is a 67 year old female admitted for Postoperative wound infection. Pharmacy was consulted for warfarin dosing and monitoring. Anticoagulation Therapy Goals Indication for Anticoagulation: Atrial fibrillation/flutter, Other (please specify) Other please comment: Post op prophylaxis Anticipated Duration of Therapy: Lifetime Target INR: 1.8-2.2 (Post-ortho surgery) Prior to Admission Management Anticoagulation Managed By: Anticoagulation Clinic Tablet Size/Strength: 5 mg Anticoagulation Regimen: 7.5 mg Fri, 5 mg all other days Anticoagulation Episode Summary Current INR goal: 2.0-3.0 TTR: 82.8% (1 y) Next INR check: 06/29/2023 INR from last check: 3.0 (06/15/2023) Most recent INR: 1.2 (06/18/2023) Weekly max warfarin dose: Target end date: Indefinite INR check location: Preferred lab: Send INR reminders to: Indications Recent cerebrovascular accident (CVA)(Primary)(Resolved) [Z86.73] Paroxysmal atrial fibrillation (HCC) [I48.0] Comments: Anticoagulation Care Providers Provider Role Specialty Phone number Dontae Feliberto Richardson, Cardiovascular Medicine [phone] Labs INR Date/Time Value Ref Range Status 06/18/2023 04:28 AM 1.2 0.8 - 1.2 Final 06/17/2023 07:09 AM 1.4 (H) 0.8 - 1.2 Final 06/16/2023 05:46 PM 2.2 (H) 0.8 - 1.2 Final HGB Date/Time Value Ref Range Status 06/18/2023 05:41 AM 7.9 (L) 12.0 - 15.3 g/dL Final HCT Date/Time Value Ref Range Status 06/18/2023 05:41 AM 25.9 (L) 36.0 - 45.2 % Final PLT Date/Time Value Ref Range Status 06/18/2023 05:41 AM 305 140 - 400 K/uL Final Objective Warfarin Administrations (last 720 hours) None Assessment & Plan Assessment Dietary Assessment: Normal/expected PO intake Today's INR : Subtherapeutic Plan Warfarin Plan: Give Warfarin Specify Warfarin Dose: 10 mg by mouth tonight. Is the patient receiving a Bridging Agent: Yes (Lovenox for dvt prophylaxis, can be stopped once INR is >1.8) Warfarin Patient Education : Incomplete Kulwant Mckeon RPh * Dillan Johns RPh - 06/17/2023 7:32 PM EST Images from the original note were not included. PHARMACY ANTICOAGULATION WARFARIN (Coumadin) Assessment [address] [address] Name: Nenita Whitman Location: [facility] 6B-6012/D Date: 06/17/2023 Time: 7:32 PM Nenita Whitman is a 67 year old female admitted for Postoperative wound infection. Pharmacy was consulted for warfarin dosing and monitoring. Anticoagulation Therapy Goals Indication for Anticoagulation: Atrial fibrillation/flutter, Other (please specify) Other please comment: Post op prophylaxis Anticipated Duration of Therapy: Lifetime Target INR: 1.8-2.2 (Post-ortho surgery) Prior to Admission Management Anticoagulation Managed By: Anticoagulation Clinic Tablet Size/Strength: 5 mg Anticoagulation Regimen: 7.5 mg Fri, 5 mg all other days Anticoagulation Episode Summary Current INR goal: 2.0-3.0 TTR: 82.9% (1 y) Next INR check: 06/29/2023 INR from last check: 3.0 (06/15/2023) Most recent INR: 1.4 (06/17/2023) Weekly max warfarin dose: Target end date: Indefinite INR check location: Preferred lab: Send INR reminders to: Indications Recent cerebrovascular accident (CVA)(Primary)(Resolved) [Z86.73] Paroxysmal atrial fibrillation (HCC) [I48.0] Comments: Anticoagulation Care Providers Provider Role Specialty Phone number Feliberto Diggs, Cardiovascular Medicine [phone] Labs INR Date/Time Value Ref Range Status 06/17/2023 07:09 AM 1.4 (H) 0.8 - 1.2 Final 06/16/2023 05:46 PM 2.2 (H) 0.8 - 1.2 Final 06/16/2023 04:23 AM 2.9 (H) 0.8 - 1.2 Final HGB Date/Time Value Ref Range Status 06/17/2023 04:52 AM 9.1 (L) 12.0 - 15.3 g/dL Final HCT Date/Time Value Ref Range Status 06/17/2023 04:52 AM 29.6 (L) 36.0 - 45.2 % Final PLT Date/Time Value Ref Range Status 06/17/2023 04:52 AM 320 140 - 400 K/uL Final Objective Warfarin Administrations (last 720 hours) None Assessment & Plan Assessment Today's INR : Subtherapeutic Plan Warfarin Plan: Hold Warfarin dose per Provider request for this date, start 06/18 Is the patient receiving a Bridging Agent: Yes (Lovenox for dvt prophylaxis, can be stopped once INR is >1.8) Warfarin Patient Education : Incomplete Per ortho: defer to hospitalist if INR goal should be 2-3 Richmond Mahajan [facility] * Mode Frias MD - 06/17/2023 7:39 AM EST Images from the original note were not included. [facility] 6B-6012/D INTERVAL HISTORY: 67 year old female with a PMHx of DM2, pAF, SALVADOR on CPAP, s/p total knee arthroplasty on 05/11/23 admitted to the orthopedic service today for postoperative wound infection and wound dehiscence. She was seen in consultation at the request of orthopedics for medical management of the patient's comorbi dities and medications No complaints No events overnight INR 1.4 Wound cx showed pseudomonas No nausea, vomiting or diarrhea. No chest pain or shortness of breath. No fevers, chill or night sweats. All other ROS examined in detail and are negative except as documented in HPI. Objective Physical Exam Most Recent Vital Signs: BP: 175 mmHg/46 mmHg (06/17/23653) Pulse: 53 (06/17/23653) Temp: 35.72 C (06/17/23653) Resp: 18 (06/17/23653) SpO2: 95 % (06/17/23653) Physical Exam Vitals and nursing note reviewed. Exam conducted with a van driver present. Constitutional: General: She is not in acute distress. Appearance: Normal appearance. Cardiovascular: Rate and Rhythm: Normal rate and regular rhythm. Pulses: Normal pulses. Heart sounds: Normal heart sounds. No murmur heard. No friction rub. No gallop. Pulmonary: Effort: Pulmonary effort is normal. No respiratory distress. Breath sounds: Normal breath sounds. No wheezing, rhonchi or rales. Abdominal: General: Abdomen is flat. Bowel sounds are normal. Palpations: Abdomen is soft. Musculoskeletal: Right lower leg: No edema. Left lower leg: No edema. Skin: General: Skin is warm and dry. Capillary Refill: Capillary refill takes less than 2 seconds. Neurological: General: No focal deficit present. Mental Status: She is alert and oriented to person, place, and time. Peripheral Line Right Antecubital 20 Gauge (Active) Number of days: 2 Peripheral Line Right Hand 20 Gauge (Active) Number of days: 1 STUDIES: Encounter Orders Labs and other studies reviewed with pertinent findings noted below: Lab results within last 7 days (see chart for full results) Units 06/17/23 0452 06/16/233 06/15/23 1446 HGB g/dL 9.1* 8.9* 10.3* HCT % 29.6* 27.6* 32.0* WBC K/uL 5.01 4.81 7.83 PLT K/uL 320 327 454* Lab results within last 7 days (see chart for full results) Units 06/17/2345106/16/2342206/15/23 1446 Sodium mmol/L 138 138 134* Potassium mmol/L 4.1 3.9 4.0 Chloride mmol/L 102 100 95* CO2 mmol/L 27 27 26 BUN mg/dL 13 16 18 Creatinine mg/dL 0.8 0.9 1.0 Assessment and Plan IMPRESSION : Principal Problem: Postoperative wound infection Active Problems: Essential hypertension with goal blood pressure less than 140/90 Type 2 diabetes mellitus without complications (HCC) Paroxysmal atrial fibrillation (HCC) SALVADOR on CPAP Body mass index (BMI) of 40.0 to 44.9 in adult (HCC) History of total knee arthroplasty, right Wound dehiscence, surgical Resolved Problems: * No resolved hospital problems. * DIFFERENTIAL AND PLAN: 67 year old female with a PMHx of DM2, pAF, SALVADOR on CPAP, s/p total knee arthroplasty on 05/11/23 admitted to the orthopedic service today for postoperative wound infection and wound dehiscence. She was seen in consultation at the request of orthopedics for medical management of the patient's comorbi dities and medications Hold coumadin Hold metformin Anticipate surgery today Case discussed with pharmacy. Cont vanc. Stop ancef, start cefepime Case disucssed with ortho Cont current meds [START ON 06/20/2023] Drug Level Check - Vancomycin Random [START ON 06/21/2023] Acetaminophen (Tylenol) tab 650 mg Acetaminophen (Tylenol) tab 975 mg amiodarone (Cordarone) tab 200 mg amLODIPine (Norvasc) tab 5 mg atorvaSTATin (Lipitor) tab 80 mg ceFAZolin in dextrose (Ancef) ivpb 2 g CYANOCOBALAMIN (vitamin B-12) tab 1,000 mcg dextrose 50 % inj 25 mL dextrose 50 % inj 50 mL Ezetimibe (Zetia) tab 10 mg Ferrous Sulfate (Feosol) tab 325 mg glucagon (Glucagen) inj 1 mg Glucose (Glutose 15) 40 % gel 15 g of glucose Glucose (Glutose 15) 40 % gel 30 g of glucose glucose chew tab 16 g HYDROmorphone (Dilaudid) inj 0.5 mg insulin aspart (NovoLOG) inj losartan (Cozaar) tab 100 mg magnesium chloride ER (Mag-64) tab 64 mg metoprolol succinate XL (toPROL XL) tab 25 mg naloxone (Narcan) 0.4 MG/ML inj 0.08 mg ondansetron (Zofran) inj 4 mg ondansetron (Zofran) tab 4 mg oxyCODONE (Oxy IR) tab 5 mg senna (Senokot) 2 Tablet sodium chloride 0.9 % flush peripheral chris 3 mL tolterodine LA ER (Detrol LA) cap 4 mg traMADol (Ultram) tab 50 mg vancomycin (Vancocin) 750 mg in NSS 100 mL ivpb vancomycin per pharmacy order I spent a total of 53 minutes coordinating, documenting, and providing care for this patient excluding time spent in the performance of separately billed services. PHARMACOLOGIC VTE PROPHYLAXIS: Warfarin Sodium CODE STATUS: Full Code EXPECTED DISCHARGE DATE: 06/19/2023 * Dillan Johns [facility] - 06/17/2023 6:02 AM EST PHARMACY PHARMACOKINETIC CONSULT [facility] [address] Name: Nenita Whitman Location: [facility] 6B-6012/D Date: 06/17/2023 Time: 6:03 AM Requesting service: Orthopedics Bacteria being treated: Empiric Source of infection: Post op Wound Medication(s) being managed: Vancomycin Pharmacokinetic calculations will be performed utilizing [employer] software. Lab information: Lab Results Component Value Date/Time WBC 5.01 06/17/2023 04:52 AM WBC 4.81 06/16/2023 04:23 AM WBC 7.83 06/15/2023 02:46 PM WBC 7.44 06/04/2023 02:28 PM WBC 10.02 05/21/2023 02:08 PM WBC 6.93 05/04/2017 07:35 AM WBC 6.59 04/23/2017 07:21 AM WBC 8.66 09/17/2016 02:49 PM Lab Results Component Value Date/Time BUN 13 06/17/2023 04:52 AM BUN 16 06/16/2023 04:23 AM BUN 18 06/15/2023 02:46 PM BUN 16 05/12/2023 04:08 AM BUN 21 (H) 05/04/2023 10:28 AM BUN 24 (H) 07/08/2019 09:16 AM BUN 18 02/03/2019 09:14 AM BUN 27 (H) 10/12/2018 11:59 AM BUN 15 12/17/2017 09:58 AM BUN 14 11/30/2017 10:29 AM Lab Results Component Value Date/Time CREAT 0.8 06/17/2023 04:52 AM CREAT 0.9 06/16/2023 04:23 AM CREAT 1.0 06/15/2023 02:46 PM CREAT 0.8 05/12/2023 04:08 AM CREAT 1.1 (H) 05/04/2023 10:28 AM CREAT 0.8 07/08/2019 09:16 AM CREAT 0.8 02/03/2019 09:14 AM CREAT 0.7 10/12/2018 11:59 AM CREAT 0.6 12/17/2017 09:58 AM CREAT 0.6 11/30/2017 10:29 AM ANTIMICROBIALS GIVEN (last 28 hours) Date/Time Action Medication Dose Rate 06/17/23 0543 New Bag ceFAZolin in dextrose (Ancef) ivpb 2 g 2 g 100 mL/hr 06/16/232212 New Bag ceFAZolin in dextrose (Ancef) ivpb 2 g 2 g 100 mL/hr 06/16/232053 New Bag vancomycin (Vancocin) 750 mg in NSS 100 mL ivpb 750 mg 110 mL/hr 06/16/23 1336 New Bag ceFAZolin in dextrose (Ancef) ivpb 2 g 2 g 100 mL/hr 06/16/23 0921 New Bag vancomycin (Vancocin) 750 mg in NSS 100 mL ivpb 750 mg 110 mL/hr 06/16/23 0548 New Bag ceFAZolin in dextrose (Ancef) ivpb 2 g 2 g 100 mL/hr Wt Readings from Last 1 Encounters: 06/15/23 94.3 kg (208 lb) Levels to date: Lab Results Component Value Date/Time KIMBERLYOM 19.8 06/17/2023 04:52 AM Impression: Nenita Whitman is a/an 67 year old female receiving vancomycin therapy. The pharmacokinetic target for therapy is AUC24,SS (range) 400-600mg/L.hr Assessment and Plan: Analysis of the most recent level(s) using [employer] gives the following patient-specific pharmacokinetic parameters: CL: 3.08 L/hr V: 62.6 L T1/2: 14.4 hours Using these values, the current regimen of Vancomycin 750 mg IV every 12 hours is predicted to result in a steady-state trough of 15.5 mg/L and AUC24 of 485 mg/L.hr. At this time we recommend a regimen of 750 mg IV every 12 hours, which is predicted to result in a steady-state trough of 15.5 mg/L and AUC24 of 485 mg/L.hr. Obtain next vancomycin level 06/20 0600. Pharmacy will continue to follow and dose as appropriate by renal function, culture results, infectious disease input, and overall clinical status. Contact the Pharmacy at extension [phone] if there are any questions. * Lindsey Davidson DO - 06/16/2023 12:32 PM EST ORTHOPAEDICS PROGRESS NOTE [facility]-[address] [address] Name: Nenita Whitman Location: [facility] 6B-6012/D Date: 06/16/2023 Time: 12:33 PM SUBJECTIVE: Seen and examined this afternoon. Currently out of bed to chair eating lunch. No complaints. She denies fevers, chills or night sweats. MRI completed. OBJECTIVE: Most Recent Vital Signs: BP: 149 mmHg/42 mmHg (06/16/23 111) Pulse: 51 (06/16/231113) Temp: 36.22 C (06/16/23 111) Resp: 18 (06/16/23 111) SpO2: 100 % (06/16/231113) Vital Signs Last 24 Hours: Systolic BP: Most Recent Systolic BP Av.9 mmHg Min: 137 mmHg Max: 181 mmHg Temperature: Most Recent Temperature Av.5 C Min: 36 C Max: 36.72 C Pulse: Pulse Av.1 Min: 51 Max: 58 Respirations: Resp Av.8 Min: 18 Max: 20 SpO2: SpO2 Av.9 % Min: 93 % Max: 100 % Exam: Examination reveals right lower extremity wound unchanged from previous evaluation. Dressing in place. No significant lower extremity edema. No calf tenderness. LABS: Labs reviewed as indicated below: Synovial fluid culture - no organism seen; no PMNs - no growth to date Deep wound culture - few PMNs; G-positive cocci/Gram-negative bacilli - Pseudomonas Cell count - pending WBC-4.8 H&H - 8.9/27.6 INR - 2.9 IMAGING: X-rays of the right knee were previously reviewed demonstrating evidence of stable total knee prosthesis in anatomic alignment without evidence of hardware complication. No evidence of loosening. Anterior soft tissue swelling with associated defect anterior to the patella. No evidence of fr acture. No significant joint effusion. MRI with mars protocol of the right knee demonstrated evidence of deep subcutaneous fluid collection involving the anterior aspect right knee consistent with seroma versus abscess. Soft tissue defectinvolving the anterior aspect right knee in line with the expected longitudinal skin incision. Nonsp ecific muscle edema involving the proximal leg and distal thigh. Findings likely postoperative in nature. Mild bone marrow edema involving the distal femur and proximal tibia consistent with postoperative total knee. No evidence of loosening. IMPRESSION and PLAN: Principal Problem: Postoperative wound infection (POA: Unknown) Active Problems: Essential hypertension with goal blood pressure less than 140/90 (POA: Yes) Type 2 diabetes mellitus without complications (HCC) (POA: Yes) Paroxysmal atrial fibrillation (HCC) (POA: Yes) SALVADOR on CPAP (POA: Yes) Body mass index (BMI) of 40.0 to 44.9 in adult (HCC) (POA: Yes) History of total knee arthroplasty, right (POA: Yes) Wound dehiscence, surgical (POA: Unknown) POA = Present On Admission -- MRI of the right knee was reviewed with the patient and her . Findings are consistent with postoperative changes involving the hardware and deep structures. Findings consistent with superficial postoperative wound infection anterior to the patella. Wound cultures were polymicrobial. Jointaspirate demonstrated no evidence of organisms. Cell count was pending. Given the findings, we discussed the plan for right knee wound debridement with the possibility of wound VAC application given the soft tissue defect. We also discussed the distinct possibility of pursuing knee arthrotomy with poly exchange verses 2 stage revision with antibiotic spacer placement. We reviewed the potential risks and complications at length. All questions were answered her satisfaction. Consent was obtained for the above-noted procedure. Currently, we are awaiting INR reduction with vitamin K. Patient willcontinue current IV antibiotics. Further recommendations will follow her procedure scheduled tomorro w. NPO after midnight. * Mode Frias MD - 06/16/2023 11:28 AM EST Images from the original note were not included. [facility] 6B-6012/D INTERVAL HISTORY: 67 year old female with a PMHx of DM2, pAF, SALVADOR on CPAP, s/p total knee arthroplasty on 05/11/23 admitted to the orthopedic service today for postoperative wound infection and wound dehiscence. She was seen in consultation at the request of orthopedics for medical management of the patient's comorbi dities and medications No complaints No events overnight INR 2.9 No nausea, vomiting or diarrhea. No chest pain or shortness of breath. No fevers, chill or night sweats. All other ROS examined in detail and are negative except as documented in HPI. Objective Physical Exam Most Recent Vital Signs: BP: 149 mmHg/42 mmHg (06/16/23 1114) Pulse: 51 (06/16/23 1114) Temp: 36.22 C (06/16/23 1114) Resp: 18 (06/16/23 1114) SpO2: 100 % (06/16/23 111) Physical Exam Vitals and nursing note reviewed. Exam conducted with a van driver present. Constitutional: General: She is not in acute distress. Appearance: Normal appearance. Cardiovascular: Rate and Rhythm: Normal rate and regular rhythm. Pulses: Normal pulses. Heart sounds: Normal heart sounds. No murmur heard. No friction rub. No gallop. Pulmonary: Effort: Pulmonary effort is normal. No respiratory distress. Breath sounds: Normal breath sounds. No wheezing, rhonchi or rales. Abdominal: General: Abdomen is flat. Bowel sounds are normal. Palpations: Abdomen is soft. Musculoskeletal: Right lower leg: No edema. Left lower leg: No edema. Skin: General: Skin is warm and dry. Capillary Refill: Capillary refill takes less than 2 seconds. Neurological: General: No focal deficit present. Mental Status: She is alert and oriented to person, place, and time. Peripheral Line Right Antecubital 20 Gauge (Active) Number of days: 1 Peripheral Line Right Hand 20 Gauge (Active) Number of days: 0 STUDIES: Encounter Orders Labs and other studies reviewed with pertinent findings noted below: Lab results within last 7 days (see chart for full results) Units 06/16/23 0423 06/15/23 1446 HGB g/dL 8.9* 10.3* HCT % 27.6* 32.0* WBC K/uL 4.81 7.83 PLT K/uL 327 454* Lab results within last 7 days (see chart for full results) Units 06/16/23 0423 06/15/23 1446 Sodium mmol/L 138 134* Potassium mmol/L 3.9 4.0 Chloride mmol/L 100 95* CO2 mmol/L 27 26 BUN mg/dL 16 18 Creatinine mg/dL 0.9 1.0 Assessment and Plan IMPRESSION : Principal Problem: Postoperative wound infection Active Problems: Essential hypertension with goal blood pressure less than 140/90 Type 2 diabetes mellitus without complications (HCC) Paroxysmal atrial fibrillation (HCC) SALVADOR on CPAP Body mass index (BMI) of 40.0 to 44.9 in adult (HCC) History of total knee arthroplasty, right Wound dehiscence, surgical Resolved Problems: * No resolved hospital problems. * DIFFERENTIAL AND PLAN: 67 year old female with a PMHx of DM2, pAF, SALVADOR on CPAP, s/p total knee arthroplasty on 05/11/23 admitted to the orthopedic service today for postoperative wound infection and wound dehiscence. She was seen in consultation at the request of orthopedics for medical management of the patient's comorbi dities and medications Case discussed with pharmacy and ortho Will give 5 mg vit k and recheck PT/INR at 6 pm. If elevated, give another 5 mg of vit k Goal inr 1.4 prior to surgery Hold coumadin Hold metformin Anticipate surgery in am. Cont current meds [START ON 06/21/2023] Acetaminophen (Tylenol) tab 650 mg Acetaminophen (Tylenol) tab 975 mg amiodarone (Cordarone) tab 200 mg amLODIPine (Norvasc) tab 5 mg atorvaSTATin (Lipitor) tab 80 mg ceFAZolin in dextrose (Ancef) ivpb 2 g CYANOCOBALAMIN (vitamin B-12) tab 1,000 mcg dextrose 50 % inj 25 mL dextrose 50 % inj 50 mL [START ON 06/17/2023] Drug Level Check - Vancomycin Random Enoxaparin (Lovenox) inj 40 mg Ezetimibe (Zetia) tab 10 mg Ferrous Sulfate (Feosol) tab 325 mg glucagon (Glucagen) inj 1 mg Glucose (Glutose 15) 40 % gel 15 g of glucose Glucose (Glutose 15) 40 % gel 30 g of glucose glucose chew tab 16 g HYDROmorphone (Dilaudid) inj 0.5 mg insulin aspart (NovoLOG) inj isolyte-S pH 7.4 infusion losartan (Cozaar) tab 100 mg magnesium chloride ER (Mag-64) tab 64 mg metoprolol succinate XL (toPROL XL) tab 25 mg naloxone (Narcan) 0.4 MG/ML inj 0.08 mg ondansetron (Zofran) inj 4 mg ondansetron (Zofran) tab 4 mg oxyCODONE (Oxy IR) tab 5 mg senna (Senokot) 2 Tablet sodium chloride 0.9 % flush peripheral chris 3 mL tolterodine LA ER (Detrol LA) cap 4 mg traMADol (Ultram) tab 50 mg vancomycin (Vancocin) 750 mg in NSS 100 mL ivpb vancomycin per pharmacy order PHARMACOLOGIC VTE PROPHYLAXIS: Enoxaparin Warfarin Sodium CODE STATUS: Full Code EXPECTED DISCHARGE DATE: No information available I spent a total of 51 minutes coordinating, documenting, and providing care for this patient excluding time spent in the performance of separately billed services. * Balta Hyde PA-C - 06/16/2023 8:09 AM EST ORTHOPAEDICS PROGRESS NOTE [facility]-[address] [place] [address] Name: Nenita Whitman Location: [facility] 6B-6012/D Date: 06/16/2023 Time: 8:17 AM SUBJECTIVE: Patient seen and examined at bedside this morning. Patient resting comfortably in bedside chair with right lower extremity elevated. She reports that she is doing well, and had no significant issues overnight. She reports no change in her pain, and denies fevers, chills, night sweats, chest pain, shortness of breath. She is currently NPO status for planning of possible wound debridement verses arthroplasty revision. OBJECTIVE: Most Recent Vital Signs: BP: 181 mmHg/64 mmHg (06/16/23716) Pulse: 51 (06/16/23716) Temp: 36 C (06/16/23716) Resp: 18 (06/16/23716) SpO2: 100 % (06/16/23716) Vital Signs Last 24 Hours: Systolic BP: Most Recent Systolic BP Av.2 mmHg Min: 137 mmHg Max: 181 mmHg Temperature: Most Recent Temperature Av.5 C Min: 36 C Max: 36.72 C Pulse: Pulse Av.4 Min: 51 Max: 58 Respirations: Resp Av.9 Min: 18 Max: 20 SpO2: SpO2 Av.5 % Min: 93 % Max: 100 % Exam: Examination of the right upper extremity reveals clean, dry, and intact dressing which was maintained. No evidence of additional bleeding or drainage. There remains some tenderness to palpationover the medial aspect of the knee and lower thigh. She is able to demonstrate a straight leg raise. No calf tenderness. She is distally neurovascularly intact with appropriate sensation to light touch, palpable pulses, and brisk cap refill. Distal motor function is intact to include strong great toe dorsiflexion. LABS: Labs reviewed as indicated below: INR 2.9 WBC 4.81 Hemoglobin 8.9 IMAGING: Awaiting right knee MRI for operative planning. IMPRESSION and PLAN: Principal Problem: Postoperative wound infection right knee status post total right knee arthroplasty. Plan was discussed with patient today to include NPO status and pending MRI results for operative planning with regard to wound debridement versus explant/revision. Maintain NPO status pending MRI results. Plan for continued medical management for diabetes mellitus and atrial fibrillation with anticoagulation. * Richmond Mahajan [facility] - 06/15/2023 6:29 PM EST PHARMACY PHARMACOKINETIC CONSULT [address] [address] Name: Nenita Whitman Location: [facility] 6B-6012/D Date: 06/15/2023 Time: 6:29 PM Requesting Service: Orthopedics Medication(s) being managed: Vancomycin Pharmacokinetic calculations will be performed utilizing [employer] software. Lab information: Lab Results Component Value Date/Time WBC 7.83 06/15/2023 02:46 PM WBC 7.44 06/04/2023 02:28 PM WBC 10.02 05/21/2023 02:08 PM WBC 9.70 05/12/2023 04:08 AM WBC 5.30 05/04/2023 10:28 AM WBC 6.93 05/04/2017 07:35 AM WBC 6.59 04/23/2017 07:21 AM WBC 8.66 09/17/2016 02:49 PM Lab Results Component Value Date/Time BUN 18 06/15/2023 02:46 PM BUN 16 05/12/2023 04:08 AM BUN 21 (H) 05/04/2023 10:28 AM BUN 19 03/31/2023 02:11 PM BUN 20 08/25/2022 11:34 AM BUN 24 (H) 07/08/2019 09:16 AM BUN 18 02/03/2019 09:14 AM BUN 27 (H) 10/12/2018 11:59 AM BUN 15 12/17/2017 09:58 AM BUN 14 11/30/2017 10:29 AM Lab Results Component Value Date/Time CREAT 1.0 06/15/2023 02:46 PM CREAT 0.8 05/12/2023 04:08 AM CREAT 1.1 (H) 05/04/2023 10:28 AM CREAT 1.0 03/31/2023 02:11 PM CREAT 0.8 08/25/2022 11:34 AM CREAT 0.8 07/08/2019 09:16 AM CREAT 0.8 02/03/2019 09:14 AM CREAT 0.7 10/12/2018 11:59 AM CREAT 0.6 12/17/2017 09:58 AM CREAT 0.6 11/30/2017 10:29 AM ANTIMICROBIALS GIVEN (last 28 hours) None Wt Readings from Last 1 Encounters: 06/15/23 94.3 kg (208 lb) Levels to date: No results found for: "VANCO", "VANCOPEAK", "VANCORANDOM", "VANCOTROUGH", "GENTPEAK", "GENTRANDOM","GENTTROUGH", "TOBRAPEAK", "TOBRARANDOM", "TOBRATROUGH", "AMIKAPEAK", "AMIKARANDOM", "AMIKATROUGH" Impression: Nenita Whitman is a/an 67 year old female receiving vancomycin therapy. The pharmacokinetic target for therapy is AUC24,SS (range) 400-600mg/L.hr Assessment and Plan: [employer] Pharmacokinetics Note Drug: Vancomycin Pharmacokinetic target: AUC24 (range) 400-600 mg/L.hr Nenita Whitman is a(n) 67 years old female initiating Vancomycin Recent measured serum creatinine values: 06/15/2023 14:46 1 mg/dL Assessment: Analysis using [employer] gives the following patient-specific pharmacokinetic parameters: CL: 2.69 L/hr V: 63.7 L T1/2: 17.5 hours At this time we recommend a regimen of 750 mg IV every 12 hours, which is predicted to result in a steady-state trough of 15 mg/L and AUC24 of 464 mg/L.hr. Recommendations: - Vancomycin 750 mg IV every 12 hours - Continue to monitor serum creatinine Richmond Mahajan Obtain next vancomycin level 06/17 at 0600. Pharmacy will continue to follow and dose as appropriate by renal function, culture results, infectious disease input, and overall clinical status. Contact the Pharmacy at extension [phone] if there are any questions. Richmond Mahajan RPh documented in this encounter H&P Notes * Lindsey Davidson DO - 06/17/2023 1:18 PM EST HISTORY & PHYSICAL INTERVAL NOTE [facility]-[address] [address] History and Physical Update: Name: Nenita Whitman Location: [place] [facility]/[place] Date: 06/17/2023 Time: 1:18 PM DATE OF HISTORY AND PHYSICAL: 06/15/2023 BP: 180 mmHg/76 mmHg (06/17/23 1307) Pulse: 57 (06/17/23 1307) Temp: 36.28 C (06/17/23 1307) Resp: 16 (06/17/23 1307) SpO2: 97 % (06/17/23 1307) Does patient take a beta aline? Yes - medication: Metoprolol Did patient stop anticoagulants? Yes, Aspirin, Coumadin Heart Exam: regular rate and rhythm Lung Exam: clear to auscultation bilaterally Other Pertinent Physical Exam: Examination of the right knee reveals wound unchanged from previous evaluation. Dressing in place. No significant lower extremity edema. No calf tenderness. Distal motor function and sensation intact. Pulses palpable. I have reviewed the H&P previously performed and examined the patient today. There are no new findings noted. Source Note - Lindsey Davidson DO - 06/15/2023 4:17 PM EST GENERAL HISTORY & PHYSICAL EXAMINATION ORTHOPAEDIC SURGERY Name: Nenita Whitman Date: 06/15/2023 Time: 4:17 PM SUBJECTIVE: Chief complaint: Right knee wound status post total knee HPI: 67-year-old female presented to Orthopedic Urgent Care today regarding a right knee wound and dehiscence which occurred over the course of this past week. She describes some degree of drainage as well as odor over the past few days. She underwent previous right total knee arthroplasty on 05/11/2023. She experienced issues with postoperative swelling as well as some blister formation over theanterior knee however this essentially resolved after the 1st few weeks following her procedure. She reports doing well from a rehab standpoint. She does not report any fevers, chills or night sweats. She has been noticing increasing range of motion as well as improvement in her mobility. Following her evaluation through the [facility]gent [facility], she was sent to the emergency department for further evaluation and treatment. Review of Systems: Constitutional ROS: No fevers, sweats, or chills Cardiovascular ROS: No chest pain Gastrointestinal ROS: No abdominal pain Musculoskeletal/Extremities ROS: Right knee wound; redness and swelling Neurologic ROS: No numbness or tingling All other pertinent positives as above and in the HPI, otherwise negative. Review of patient's allergies indicates: Allergen Reactions [...] in the morningand 1 Tablet before bedtime. Amiodarone HCl 200 MG Oral Tablet (Cordarone) Take by mouth 1 Tablet in the morning. 34 Tablet 11 Solifenacin Succinate 5 MG Oral Tablet (VESIcare) Take by mouth 1 Tablet in the morning. 30 Tablet 12 metFORMIN HCl 500 MG Oral Tablet (Glucophage) TAKE 2 TABLETS BY MOUTH TWO TIMES DAILY WITH MORNING AND EVENING MEALS 360 Tablet 3 Metoprolol Succinate ER 25 MG Oral Tablet Extended Release 24 Hour (toPROL XL) Take 0.5 Tablets (12.5 mg) by mouth in the morning and 0.5 Tablets (12.5 mg) before bedtime. (Patient taking differently: Take 1 Tablet by mouth in the morning.) 30 Tablet 5 Atorvastatin Calcium 80 MG Oral Tablet (Lipitor) TAKE 1 TABLET BY MOUTH EVERY DAY 90 Tablet 3 Warfarin Sodium 5 MG Oral Tablet (Coumadin) TAKE 1 1/2 TABLETS (7.5mg) BY MOUTH FRIDAYS AND 1 TABLET (5mg) ALL OTHER EVENINGS OR DIRECTED BY ANTICOAG CLINIC. 105 Tablet 3 Multi Vitamin Daily Oral Tablet Take by mouth . Ezetimibe 10 MG Oral Tablet (Zetia) TAKE [...] mouth in the morning. 90 Tablet 1 Diclofenac Sodium 1 % External Gel (Voltaren) Apply topically to affected area 4 times a day. Applyto knees (Patient not taking: Reported on 04/15/2023) 350 g 6 Cyanocobalamin 1000 MCG Oral Tablet (Cyanocobalamin) Take 1 Tablet by mouth in the morning. 100 Tablet 3 Enoxaparin Sodium 100 MG/ML Injection Solution Prefilled Syringe (Lovenox) Inject 100 mg under the skin in the morning and 100 mg before bedtime. As instructed by the [facility]. 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 Z86.006 Dyslipidemia, goal LDL below 70 E78.5 SALVADOR on CPAP G47.33 PMB (postmenopausal bleeding) N95.0 Thickened endometrium R93.89 Endometrial polyp N84.0 Heart failure (HCC) I50.9 Body mass index (BMI) of 40.0 to 44.9 in adult (HCC) Z68.41 Atherosclerosis of koi coronary artery without angina pectoris I25.10 S/P total knee arthroplasty, right Z96.651 Alcohol abuse F10.10 Postoperative anemia due to acute blood loss D62 Other iron deficiency anemias D50.8 Past Medical History: Diagnosis Date A-fib (HCC) 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 02/23/2019 BCC (basal cell carcinoma), scalp/neck 11/04/2018 Body mass index (BMI) of 45.0 to 49.9 in adult (HCC) 04/20/2017 Per Obesity protocol #1 Dyslipidemia, goal LDL below 70 12/30/2019 Endometrial polyp 09/06/2021 Essential hypertension with goal blood pressure less than 140/90 09/02/2016 Hemiplegia and hemiparesis following cerebral infarction affecting left non- dominant side (HCC) 01/21/2017 History of basal cell cancer 01/24/2019 History of colon cancer 06/24/2018 History of melanoma in situ 07/27/2019 Hypertension Left renal mass 01/26/2017 Morbid obesity due to excess calories (HCC) 03/25/2017 SALVADOR on CPAP 04/19/2020 Paroxysmal atrial fibrillation (HCC) 01/21/2017 PMB (postmenopausal bleeding) 08/19/2021 Right internal carotid occlusion 02/13/2017 Thickened endometrium 09/06/2021 Type 2 diabetes mellitus (HCC) Type 2 diabetes mellitus without complications (HCC) 01/21/2017 Past Surgical History: Procedure Laterality Date ARTHROPLASTY KNEE TOTAL Right 05/11/2023 ROBOTIC ARTHROPLASTY KNEE TOTAL performed by Lindsey Davidson DO at OR [facility] COLONOSCOPY, DIAGNOSTIC (RECTUM) 11/12/2016 adenocarcinoma/[facility] COLONOSCOPY, DIAGNOSTIC (RECTUM) 02/16/2018 serrated adenomatous polyp, repeat 1 yr/[facility] COLONOSCOPY, DIAGNOSTIC (RECTUM) 03/16/2019 benign polyps, repeat 2 yrs/[facility] COLONOSCOPY, DIAGNOSTIC (RECTUM) 04/11/2021 normal, repeat 3 yrs / [facility] DENTAL SURGERY PROCEDURE NEC Dental Surgery Procedure wisdom teeth INFORMATION 04/2022 Cardioversion. INFORMATION Part of colon removed. INFORMATION 11/2021 Heart Cath [place] FLEX SIGMOID DIAGNOSITIC 11/20/2016 SIGMOIDOSCOPY FLEXIBLE DIAGNOSTIC performed by Declan West MD at ENDOSCOPY [facility] REMOVAL OF OVARY(S) Left REMOVAL OF OVARY(S) FOR TUMOR benign Social History Tobacco Use Smoking status: Never Smokeless tobacco: Never Vaping Use Vaping Use: Never used Substance Use Topics Alcohol use: Yes Comment: moderate scotch is drink of choice - none since 12/2016 Drug use: No Family history: Noncontributory OBJECTIVE: Diagnostic Testing: X-rays of the right knee were obtained, viewed and interpreted in the emergency department today demonstrating evidence of stable total knee prosthesis in anatomic alignment without evidence of hardware complication. No evidence of loosening. Anterior soft tissue swelling with associated defect anterior to the patella. No evidence of fracture. No significant joint effusion. Lab: ESR pending CRP - 9 WBC -7.8 H&H 10.3/32 INR - 3.1 Wound culture/synovial fluid analysis pending Vital Signs: BP 159/51 | Pulse 57 | Temp 36.6 C (97.9 F) | Resp 20 | Ht 1.626 m (5' 4") | Wt 94.3 kg (208 lb) | SpO2 100% | BMI 35.70 kg/m | BSA 2.06 m Physical Exam: General appearance - healthy, no acutedistress, comfortable Skin - examination of the right knee reveals evidence of localized erythema to the anterior portionof the knee and somewhat along the distal aspect of the incision as well as proximal incision. Large wound defect/eschar with extension through the deep subcutaneous tissue noted. The primary wound measures roughly 6 cm x 2.5 cm. The depth appears to extend to the joint capsule. There was also evidence of a small wound/eschar noted distally measuring 2 cm x 2 cm. There is also evidence of 2 additional small eschars more proximally measuring 1 cm by 0.5 cm as well as 2 cm x 2 cm. There does not appear to be any evidence of active drainage. Odor noted from the wound however. Head - Normocephalic. Eyes - Conjunctivae and corneas clear. EOM's intact. Ears - External ears normal. Hearing grossly intact Nose/Sinuses - Nares normal. Septum midline. No drainage. Oropharynx - Lips, mucosa, and tongue normal. Teeth and gums normal. Neck - neck supple Lungs - Good diaphragmatic excursion, Lungs clear to auscultation Heart - RRR. No murmurs Abdomen - abdomen soft, non-tender Extremity - no edema Musculoskeletal - patient is able to demonstrate full extension with good straight leg raise. No significant joint effusion palpated. She is able to flex to roughly 90 without significant difficulty. She does referenced some degree of tenderness anteriorly as well as some along the medial thigh. She does not report tenderness along the joint lines medially or laterally. No evidence of instability on collateral assessment. No significant lower extremity edema. No calf tenderness. Distal motor function intact. Pulses palpable. Neuro - as above ASSESSMENT: Right knee postoperative wound dehiscence History of right total knee arthroplasty-05/11/2023 Diabetes mellitus Atrial fibrillation on Coumadin Ambulatory dysfunction secondary to above PLAN: We discussed her postoperative wound which appears to be related to the superficial aspect right knee involving the skin and subcutaneous tissue. At this point there does not appear to be any violation of the joint nor concern for intra-articular involvement. We will obtain further testing which will include MRI of the right knee for additional evaluation of the soft tissues. We will also await wound culture. Patient underwent aspiration under sterile conditions in the emergency department utilizing a 60 mL syringe with 18 gauge needle returning only bloody/hematoma returned. No kenna purulence identified. We will obtain medical consult for general medical management, more specifically addressing her diabetes as well as atrial fibrillation/Coumadin treatment. We will plan to pursue operative intervention in the form of right knee wound debridement with the possibility of primary closure versus wound VAC at this point. Patient will need to have her INR optimized at 1.4 or less. She may possibly require vitamin K for reduction with will be managed by the hospitalist. Following further evaluation with advanced imaging, we will discuss whether additional procedures need to be undertaken. Recommendations and treatment plan were thoroughly discussed with the patient and at the bedside. Theyare aware of the planned procedure as well as the possibility of more advanced treatment to includeexplant/antibiotic spacer should that be warranted. All questions were answered. This chart was completed in part utilizing [employer] Speech Voice Recognition Software. Grammatical errors, random word insertions, pronoun errors, and incomplete sentences are an occasional consequence of this system due to software limitations, ambient noise, and hardware issues. Any formal questions or concerns about the content, text, or information contained within the body of this dictation should be directly addressed to the provider for clarification. Lindsey Davidson DO 06/15/2023 4:17 PM * Lindsey Davidson DO - 06/15/2023 4:17 PM EST GENERAL HISTORY & PHYSICAL EXAMINATION ORTHOPAEDIC SURGERY Name: Nenita Whitman Date: 06/15/2023 Time: 4:17 PM SUBJECTIVE: Chief complaint: Right knee wound status post total knee HPI: 67-year-old female [facility] regarding a right knee wound and dehiscence which occurred over the course of this past week. She describes some degree of drainage as well as odor over the past few days. She underwent previous right total knee arthroplasty on 05/11/2023. She experienced issues with postoperative swelling as well as some blister formation over theanterior knee however this essentially resolved after the 1st few weeks following her procedure. She reports doing well from a rehab standpoint. She does not report any fevers, chills or night sweats. She has been noticing increasing range of motion as well as improvement in her mobility. Following her evaluation through the [facility], she was sent to the emergency department for further evaluation and treatment. Review of Systems: Constitutional ROS: No fevers, sweats, or chills Cardiovascular ROS: No chest pain Gastrointestinal ROS: No abdominal pain Musculoskeletal/Extremities ROS: Right knee wound; redness and swelling Neurologic ROS: No numbness or tingling All other pertinent positives as above and in the HPI, otherwise negative. Review of patient's allergies indicates: Allergen Reactions [...] in the morningand 1 Tablet before bedtime. Amiodarone HCl 200 MG Oral Tablet (Cordarone) Take by mouth 1 Tablet in the morning. 34 Tablet 11 Solifenacin Succinate 5 MG Oral Tablet (VESIcare) Take by mouth 1 Tablet in the morning. 30 Tablet 12 metFORMIN HCl 500 MG Oral Tablet (Glucophage) TAKE 2 TABLETS BY MOUTH TWO TIMES DAILY WITH MORNING AND EVENING MEALS 360 Tablet 3 Metoprolol Succinate ER 25 MG Oral Tablet Extended Release 24 Hour (toPROL XL) Take 0.5 Tablets (12.5 mg) by mouth in the morning and 0.5 Tablets (12.5 mg) before bedtime. (Patient taking differently: Take 1 Tablet by mouth in the morning.) 30 Tablet 5 Atorvastatin Calcium 80 MG Oral Tablet (Lipitor) TAKE 1 TABLET BY MOUTH EVERY DAY 90 Tablet 3 Warfarin Sodium 5 MG Oral Tablet (Coumadin) TAKE 1 1/2 TABLETS (7.5mg) BY MOUTH FRIDAYS AND 1 TABLET (5mg) ALL OTHER EVENINGS OR DIRECTED BY ANTICOAG CLINIC. 105 Tablet 3 Multi Vitamin Daily Oral Tablet Take by mouth . Ezetimibe 10 MG Oral Tablet (Zetia) TAKE [...] mouth in the morning. 90 Tablet 1 Diclofenac Sodium 1 % External Gel (Voltaren) Apply topically to affected area 4 times a day. Applyto knees (Patient not taking: Reported on 04/15/2023) 350 g 6 Cyanocobalamin 1000 MCG Oral Tablet (Cyanocobalamin) Take 1 Tablet by mouth in the morning. 100 Tablet 3 Enoxaparin Sodium 100 MG/ML Injection Solution Prefilled Syringe (Lovenox) Inject 100 mg under the skin in the morning and 100 mg before bedtime. As instructed by the [facility]. 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 Z86.006 Dyslipidemia, goal LDL below 70 E78.5 SALVADOR on CPAP G47.33 PMB (postmenopausal bleeding) N95.0 Thickened endometrium R93.89 Endometrial polyp N84.0 Heart failure (HCC) I50.9 Body mass index (BMI) of 40.0 to 44.9 in adult (HCC) Z68.41 Atherosclerosis of koi coronary artery without angina pectoris I25.10 S/P total knee arthroplasty, right Z96.651 Alcohol abuse F10.10 Postoperative anemia due to acute blood loss D62 Other iron deficiency anemias D50.8 Past Medical History: Diagnosis Date A-fib (HCC) 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 02/23/2019 BCC (basal cell carcinoma), scalp/neck 11/04/2018 Body mass index (BMI) of 45.0 to 49.9 in adult (HCC) 04/20/2017 Per Obesity protocol #1 Dyslipidemia, goal LDL below 70 12/30/2019 Endometrial polyp 09/06/2021 Essential hypertension with goal blood pressure less than 140/90 09/02/2016 Hemiplegia and hemiparesis following cerebral infarction affecting left non- dominant side (HCC) 01/21/2017 History of basal cell cancer 01/24/2019 History of colon cancer 06/24/2018 History of melanoma in situ 07/27/2019 Hypertension Left renal mass 01/26/2017 Morbid obesity due to excess calories (HCC) 03/25/2017 SALVADOR on CPAP 04/19/2020 Paroxysmal atrial fibrillation (HCC) 01/21/2017 PMB (postmenopausal bleeding) 08/19/2021 Right internal carotid occlusion 02/13/2017 Thickened endometrium 09/06/2021 Type 2 diabetes mellitus (HCC) Type 2 diabetes mellitus without complications (HCC) 01/21/2017 Past Surgical History: Procedure Laterality Date ARTHROPLASTY KNEE TOTAL Right 05/11/2023 ROBOTIC ARTHROPLASTY KNEE TOTAL performed by Lindsey Davidson DO at OR [facility] COLONOSCOPY, DIAGNOSTIC (RECTUM) 11/12/2016 adenocarcinoma/[facility] COLONOSCOPY, DIAGNOSTIC (RECTUM) 02/16/2018 serrated adenomatous polyp, repeat 1 yr/[facility] COLONOSCOPY, DIAGNOSTIC (RECTUM) 03/16/2019 benign polyps, repeat 2 yrs/[facility] COLONOSCOPY, DIAGNOSTIC (RECTUM) 04/11/2021 normal, repeat 3 yrs / [facility] DENTAL SURGERY PROCEDURE NEC Dental Surgery Procedure wisdom teeth INFORMATION 04/2022 Cardioversion. INFORMATION Part of colon removed. INFORMATION 11/2021 Heart Cath PAYTON FLEX SIGMOID DIAGNOSITIC 11/20/2016 SIGMOIDOSCOPY FLEXIBLE DIAGNOSTIC performed by Declan West MD at ENDOSCOPY [facility] REMOVAL OF OVARY(S) Left REMOVAL OF OVARY(S) FOR TUMOR benign Social History Tobacco Use Smoking status: Never Smokeless tobacco: Never Vaping Use Vaping Use: Never used Substance Use Topics Alcohol use: Yes Comment: moderate scotch is drink of choice - none since 12/2016 Drug use: No Family history: Noncontributory OBJECTIVE: Diagnostic Testing: X-rays of the right knee were obtained, viewed and interpreted in the emergency department today demonstrating evidence of stable total knee prosthesis in anatomic alignment without evidence of hardware complication. No evidence of loosening. Anterior soft tissue swelling with associated defect anterior to the patella. No evidence of fracture. No significant joint effusion. Lab: ESR pending CRP - 9 WBC -7.8 H&H 10.3/32 INR - 3.1 Wound culture/synovial fluid analysis pending Vital Signs: BP 159/51 | Pulse 57 | Temp 36.6 C (97.9 F) | Resp 20 | Ht 1.626 m (5' 4") | Wt 94.3 kg (208 lb) | SpO2 100% | BMI 35.70 kg/m | BSA 2.06 m Physical Exam: General appearance - healthy, no acutedistress, comfortable Skin - examination of the right knee reveals evidence of localized erythema to the anterior portionof the knee and somewhat along the distal aspect of the incision as well as proximal incision. Large wound defect/eschar with extension through the deep subcutaneous tissue noted. The primary wound measures roughly 6 cm x 2.5 cm. The depth appears to extend to the joint capsule. There was also evidence of a small wound/eschar noted distally measuring 2 cm x 2 cm. There is also evidence of 2 additional small eschars more proximally measuring 1 cm by 0.5 cm as well as 2 cm x 2 cm. There does not appear to be any evidence of active drainage. Odor noted from the wound however. Head - Normocephalic. Eyes - Conjunctivae and corneas clear. EOM's intact. Ears - External ears normal. Hearing grossly intact Nose/Sinuses - Nares normal. Septum midline. No drainage. Oropharynx - Lips, mucosa, and tongue normal. Teeth and gums normal. Neck - neck supple Lungs - Good diaphragmatic excursion, Lungs clear to auscultation Heart - RRR. No murmurs Abdomen - abdomen soft, non-tender Extremity - no edema Musculoskeletal - patient is able to demonstrate full extension with good straight leg raise. No significant joint effusion palpated. She is able to flex to roughly 90 without significant difficulty. She does referenced some degree of tenderness anteriorly as well as some along the medial thigh. She does not report tenderness along the joint lines medially or laterally. No evidence of instability on collateral assessment. No significant lower extremity edema. No calf tenderness. Distal motor function intact. Pulses palpable. Neuro - as above ASSESSMENT: Right knee postoperative wound dehiscence History of right total knee arthroplasty-05/11/2023 Diabetes mellitus Atrial fibrillation on Coumadin Ambulatory dysfunction secondary to above PLAN: We discussed her postoperative wound which appears to be related to the superficial aspect right knee involving the skin and subcutaneous tissue. At this point there does not appear to be any violation of the joint nor concern for intra-articular involvement. We will obtain further testing which will include MRI of the right knee for additional evaluation of the soft tissues. We will also await wound culture. Patient underwent aspiration under sterile conditions in the emergency department utilizing a 60 mL syringe with 18 gauge needle returning only bloody/hematoma returned. No kenna purulence identified. We will obtain medical consult for general medical management, more specifically addressing her diabetes as well as atrial fibrillation/Coumadin treatment. We will plan to pursue operative intervention in the form of right knee wound debridement with the possibility of primary closure versus wound VAC at this point. Patient will need to have her INR optimized at 1.4 or less. She may possibly require vitamin K for reduction with will be managed by the hospitalist. Following further evaluation with advanced imaging, we will discuss whether additional procedures need to be undertaken. Recommendations and treatment plan were thoroughly discussed with the patient and at the bedside. Theyare aware of the planned procedure as well as the possibility of more advanced treatment to includeexplant/antibiotic spacer should that be warranted. All questions were answered. This chart was completed in part utilizing [employer] Speech Voice Recognition Software. Grammatical errors, random word insertions, pronoun errors, and incomplete sentences are an occasional consequence of this system due to software limitations, ambient noise, and hardware issues. Any formal questions or concerns about the content, text, or information contained within the body of this dictation should be directly addressed to the provider for clarification. Lindsey Davidson DO 06/15/2023 4:17 PM documented in this encounter Consult Notes * Erickson Lucas, PT - 06/18/2023 3:59 PM ESTAssociated Order(s): ADULT PHYSICAL THERAPY CONSULT IP Duplicate order. See consult dated 06/18. * Cindy Sanchez, CHANNEL MARKETING SPECIALIST - 06/18/2023 11:05 AM ESTAssociated Order(s): WOUND CONSULT IP Images from the original note were not included. Order Date:06/18/2023 Ordering User:LINDSEY DAVIDSON [[id number]] Attending Provider:Lindsey Eller MD [[id number]] Authorizing Provider: Lindsey Davidson DO [[id number]] Department:[address] [place] [address][[id number]] Order Specific Information Order: WOUND CONSULT IP [CUSTOM: [id number]] Order #: [id number]: 1 Priority: Routine Class: Melvi sing Unit Comment:Incisional wound VAC management inpatient and postop recommendations for changes during outpatient home health follow-up Reason for Consult: -> Evaluate PPD Consulting Provider: -> Alyse Provider Released on: 06/18/2023 8:57 AM Priority: Routine Class: Nursing Unit Comment:Incisional wound VAC management inpatient and postop recommendations for changes during outpatient home health follow-up Reason for Consult: -> Evaluate PPD Consulting Provider: -> Alyse Provider Released on: 06/18/2023 8:57 AM Wound Care consult done for incisional wound VAC management HPI; Information obt from chart, and patient: 67-year-old female presented [facility] today regarding a right knee wound and dehiscence which occurred over the course of this past week. She describes some degree of drainage as well as odor over the past few days. She underwent previous right total knee arthroplasty on 05/11/2023. She experienced issues with postoperative swelling as well as some blister formation over the anterior knee however this essentially resolved after the 1st few weeks following her procedure. She reports doing well from a rehab standpoint. She does not report any fevers, chills or night sweats. Shehas been noticing increasing range of motion as well as improvement in her mobility. Following her evaluation through the [facility], she was sent to the emergency department for further evaluation and treatment. Postop day 1 status post right knee wound debridement and wound revision. Wound care was asked to see pt by Dr. Davidson for wound vac management on Rt knee. Pt has Positive wound culture growing Pseudomonas. She is currently being treated with Vanco and Maxipime. Pt reported no discomfort today. She voices that she is anxious to go home tomorrow. 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 02/23/2019 BCC (basal cell carcinoma), scalp/neck 11/04/2018 Body mass index (BMI) of 45.0 to 49.9 in adult (HCC) 04/20/2017 Per Obesity protocol #1 Dyslipidemia, goal LDL below 70 12/30/2019 Endometrial polyp 09/06/2021 Essential hypertension with goal blood pressure less than 140/90 09/02/2016 Hemiplegia and hemiparesis following cerebral infarction affecting left non- dominant side (HCC) 01/21/2017 History of basal cell cancer 01/24/2019 History of colon cancer 06/24/2018 History of melanoma in situ 07/27/2019 Hypertension Left renal mass 01/26/2017 Morbid obesity due to excess calories (HCC) 03/25/2017 SALVADOR on CPAP 04/19/2020 Paroxysmal atrial fibrillation (HCC) 01/21/2017 PMB (postmenopausal bleeding) 08/19/2021 Right internal carotid occlusion 02/13/2017 Thickened endometrium 09/06/2021 Type 2 diabetes mellitus (HCC) Type 2 diabetes mellitus without complications (HCC) 01/21/2017 Past Surgical History: Procedure Laterality Date ARTHROPLASTY KNEE TOTAL Right 05/11/2023 ROBOTIC ARTHROPLASTY KNEE TOTAL performed by Lindsey Davidson, DO at OR [facility] COLONOSCOPY, DIAGNOSTIC (RECTUM) 11/12/2016 adenocarcinoma/[facility] COLONOSCOPY, DIAGNOSTIC (RECTUM) 02/16/2018 serrated adenomatous polyp, repeat 1 yr/[facility] COLONOSCOPY, DIAGNOSTIC (RECTUM) 03/16/2019 benign polyps, repeat 2 yrs/[facility] COLONOSCOPY, DIAGNOSTIC (RECTUM) 04/11/2021 normal, repeat 3 yrs / [facility] DENTAL SURGERY PROCEDURE NEC Dental Surgery Procedure wisdom teeth INFORMATION 04/2022 Cardioversion. INFORMATION Part of colon removed. INFORMATION 11/2021 Heart Cath PAYTON FLEX SIGMOID DIAGNOSITIC 11/20/2016 SIGMOIDOSCOPY FLEXIBLE DIAGNOSTIC performed by Declan West MD at ENDOSCOPY [facility] REMOVAL OF OVARY(S) Left REMOVAL OF OVARY(S) FOR TUMOR benign REMOVE KNEE JOINT LINING, ANT/POST Right 06/17/2023 ARTHROTOMY KNEE WITH SYNOVECTOMY ARTERIOR OR POSTERIOR performed by Lindsey Davidson DO at OR [facility] REVISE KNEE JOINT REPLACEMENT Right 06/17/2023 TOTAL KNEE REVISION ONE COMPONENT performed by Lindsey Davidson DO at OR [facility] Family History Problem Relation Age of Onset Hypertension Mother Thyroid Disorder Father accident No Past Hx Sister No Past Hx Brother Heart Disorder Grandfather (Maternal) OR Breast Cancer No significant family history Social History Socioeconomic History Marital status: Spouse name: Not on file Number of children: Not on file Years of education: Not on file Highest education level: Not on file Occupational History Not on file Tobacco Use Smoking status: Never Smokeless tobacco: Never Vaping Use Vaping Use: Never used Substance and Sexual Activity Alcohol use: Yes Comment: moderate scotch is drink of choice - none since 12/2016 Drug use: No Sexual activity: Not Currently Other Topics Concern Not on file Social History Narrative Not on file Social Determinants of Health Financial Resource Strain: Not on file Food Insecurity: No Food Insecurity (12/28/2020) Hunger Vital Sign Worried About Running Out of Food in the Last Year: Never true Ran Out of Food in the Last Year: Never true Transportation Needs: Not on file Physical Activity: Not on file Stress: Not on file Social Connections: Not on file Intimate Partner Violence: Not on file Housing Stability: Not on file Allergies: Review of patient's allergies indicates: Allergen Reactions Bee Venom Edema Other Lisinopril Cough Code status: Full Code Discussion of adv directives occurred with - adult: Patient Focused Wound Assessment: VS: BP 158/56 | Pulse 56 | Temp 36.3 C (97.3 F) (Temporal Artery) | Resp 16 | Ht 1.626 m (5' 4") | Wt 94.3 kg (208 lb) | SpO2 93% | BMI 35.70 kg/m | BSA 2.06 m General: NAD sitting up in chair. Neuro: AA&O MS: immobilizer in place to Rt knee, ice and wound vac. Vascular:WNL Integumentary: wound vac dressing in place. No drainage in canister. PULSE SCALE: 4=Aneurysmal; 3=Normal; 2=Diminished; 1=Barely Palpable; 0=Absent Review of Labs/Tests: Latest Reference Range & Units 06/18/23 04:28 06/18/23 05:41 06/18/23 07:49 Sodium 135 - 146 mmol/L 138 Potassium 3.5 - 5.1 mmol/L 4.5 Chloride 98 - 107 mmol/L 102 CO2 22 - 32 mmol/L 24 BUN 6 - 20 mg/dL 10 Creatinine 0.5 - 1.0 mg/dL 0.7 Estimated Glomerular Filtration Rate >=60 mL/min 88 Anion Gap 7 - 15 mmol/L 12 Glucose 70 - 120 mg/dL 102 Calcium 8.4 - 10.2 mg/dL 9.1 Protein 6.0 - 8.3 g/dL 6.6 INR 0.8 - 1.2 1.2 Prothrombin Time 11.6 - 15.2 seconds 15.2 Glucose Meter 70 - 120 mg/dL 108 CBC Rpt ! CBC WITH WBC DIFFERENTIAL Rpt ! WBC 4.00 - 10.80 K/uL 7.59 HGB 12.0 - 15.3 g/dL 7.9 (L) HCT 36.0 - 45.2 % 25.9 (L) MCV 81.5 - 97.5 fL 94.2 PLT 140 - 400 K/uL 305 Absolute Neutrophils 1.80 - 7.70 K/uL 5.44 Absolute Lymphocytes 1.00 - 4.80 K/ul 1.13 Absolute Monocytes 0.00 - 1.10 K/uL 0.70 Absolute Eosinophils 0.00 - 0.70 K/uL 0.27 Absolute Basophils 0.00 - 0.20 K/uL 0.03 Albumin 3.8 - 5.0 g/dL 3.3 (L) AST 10 - 35 U/L 35 ALT 10 - 35 U/L 14 Alkaline Phosphatase 35 - 130 U/L 96 Bilirubin, Total <=1.2 mg/dL 0.4 !: Data is abnormal (L): Data is abnormally low Rpt: View report in Results Review for more information XR KNEE 4 OR MORE VIEWS Order: [id number] Status: Final result Visible to patient: Yes (not seen) Next appt: 06/19/2023 at 06:45 AM in Pharmacy ([facility]) 0 Result Notes Details Reading Physician Reading Date Result Priority Maria Luisa Wisdom MD [phone] 06/15/2023 Narrative & Impression PROCEDURE INFORMATION: Exam: XR Right Knee Exam date and time: 06/15/2023 2:57 PM Age: 67 years old Clinical indication: Other: Knee replacement 3 weeks ago, open infected wound over patella area; Additional info: Right knee pain TECHNIQUE: Imaging protocol: Radiologic exam of the right knee. Views: 4 or more views. COMPARISON: DX XR KNEE 3 VIEWS 05/21/2023 1:26 PM FINDINGS: Bones/joints: Total knee arthroplasty. No hardware fracture. No periprosthetic fracture or dislocation. No definite osseous erosion. Moderate joint effusion. Quadriceps and patellar enthesopathy. Soft tissues: Peripatellar soft tissue swelling and stranding. Soft tissue defect anterior to the patella which appears tract to the anterior patellar surface on lateral view. IMPRESSION IMPRESSION: 1. Infectious/inflammatory soft tissue changes about the patella. No definite osseous erosion to suggest osteomyelitis. 2. Moderate joint effusion. 3. Intact total knee arthroplasty. MRI KNEE RIGHT WO CONTRAST Order: [id number] Status: Final result Visible to patient: Yes (not seen) Next appt: 06/19/2023 at 06:45 AM in Pharmacy ([facility]) 0 Result Notes Details Reading Physician Reading Date Result Priority Balta Quigley MD [phone] 06/16/2023 Narrative & Impression EXAM MRI KNEE RIGHT WO CONTRAST-RT 06/16/2023 6:49 am HISTORY Provided clinical history: "Right knee anterior superficial wound status post total knee 5 weeks out; rule out deep infection" COMPARISON Right knee radiographs dated June 15, 2023. TECHNIQUE Multiplanar, multi-sequence MRI of the right knee was performed without IV contrast. Metal artifactreduction techniques were employed. 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 There is no fluid signal intensity at the bone-prosthesis interfaces to suggest component loosening. Mild bone marrow edema (greatestat the tibial component) is nonspecific and likely postoperative in nature. There is also nonspecific muscle edema in the proximal leg (specifically involving the deep posterior and anterior compartments) and distal thigh (specifically involving the vastus lateralis and medialis muscles). There is a deep subcutaneous fluid collection in the anterior aspect of the knee that measures up to approximately 4.4 x 0.9 cm in the axial plane and 10.6 cm in craniocaudal dimension. This lies immediately deep to the expected location of the longitudinal skin incision. IMPRESSION IMPRESSION 1. Deep subcutaneous fluid collection in the anterior aspect of the right knee. This may represent a postoperative seroma or an abscess (in the appropriate clinical setting). 2. Nonspecific muscle edema in the proximal leg and distal thigh, as above. This is most likely postoperative in nature, though a superimposed infection cannot be excluded. 3. Mild bone marrow edema adjacent to the distal femoral and proximal tibial arthroplasty components, also likely postoperative in nature. Contains abnormal data CULTURE, WOUND, DEEP, AEROBIC AND ANAEROBIC Order: [id number] Status: Preliminary result Visible to patient: No (not released) Next appt: 06/19/2023 at 06:45 AM in Pharmacy ([facility]) 0 Result Notes Culture Growth Many Pseudomonas aeruginosa Abnormal This bacterial species is known to produce a chromosomal AmpC inducible beta lactamase. Penicillin or cephalosporin use, with the exception of cefepime, may result in resistance. Multiple other species of aerobic and/or anaerobic bacteria. Stain Description Abnormal Few Polymorphonuclear leukocytes Many Gram negative bacilli Many Gram positive cocci Resulting Agency: Specimen Collected: 06/15/23 16:20 Last Resulted: 06/17/23 13:59 CULTURE, SYNOVIAL FLUID, AEROBIC AND ANAEROBIC Order: [id number] Status: Preliminary result Visible to patient: No (not released) Next appt: 06/19/2023 at 06:45 AM in Pharmacy ([facility]) 0 Result Notes Culture Growth No growth to date Stain Description No polymorphonuclear leukocytes seen No organisms seen Resulting Agency: Specimen Collected: 06/15/23 16:23 Last Resulted: 06/16/23 08:01 Interventions/treatments: Pt was seen and examined at bedside. Introduces self and role as wound care nurse. Discussed POC w/pt. Will change wound vac dressing tomorrow and plan for home therapy. Thank you for consult. Coordinated care w/ nursing staff. Call or TT w/ any questions or concerns. Cindy Santos LPN,[facility] Licensed Practical Nurse, Wound Care Certified, Ostomy management intern Wound Care Resource Nurse 06/18/23 1:39 PM * Erickson Lucas, PT - 06/18/2023 9:15 AM ESTAssociated Order(s): ADULT PHYSICAL THERAPY CONSULT IP PHYSICAL THERAPY - Physical Therapy [address] [address] Name: Nenita Whitman Location: [facility] [id number]-[id number] Date: 06/18/2023 Time: 11:06 AM Nenita Whitman is a/an 67 year old female. Per HPI: 67-year-old female presented to [facility] today regarding a right knee wound and dehiscence which occurred over the course of this past week. She describes some degree of drainage as well as odor over the past few days. She underwent previous right total knee arthroplasty on 05/11/2023. She experienced issues with postoperative swelling as well as some blister formation overthe anterior knee however this essentially resolved after the 1st few weeks following her procedure. She reports doing well from a rehab standpoint. She does not report any fevers, chills or night sweats. She has been noticing increasing range of motion as well as improvement in her mobility. Underwent R knee I and D with VAC placement 06/17. Patient Status: Inpatient Insurance: Payor: [facility] [employer] Plan: [facility] [employer] CLASSIC [id number] Product Type: *No Product type* Patient Seen: at bedside, nursing cleared patient for therapy Patient Identified By: Name, ID Band and Date Diagnosis: ambulatory dysfunction secondary to R knee infection (06/18/23914) Status of treatment: Evaluation completed (06/18/23914) Orders: PT evaluation and treatment (06/18/23914) Weight Bearing Status: Weight bearing as tolerated;RLE (in immobilizer) (06/18/23914) Precautions: Safety;Falls (06/18/23914) Total Treatment Time--free text: 38 (06/18/23914) Past Medical History: Past Medical History: Diagnosis Date A-fib (HCC) 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 02/23/2019 BCC (basal cell carcinoma), scalp/neck 11/04/2018 Body mass index (BMI) of 45.0 to 49.9 in adult (HCC) 04/20/2017 Per Obesity protocol #1 Dyslipidemia, goal LDL below 70 12/30/2019 Endometrial polyp 09/06/2021 Essential hypertension with goal blood pressure less than 140/90 09/02/2016 Hemiplegia and hemiparesis following cerebral infarction affecting left non- dominant side (HCC) 01/21/2017 History of basal cell cancer 01/24/2019 History of colon cancer 06/24/2018 History of melanoma in situ 07/27/2019 Hypertension Left renal mass 01/26/2017 Morbid obesity due to excess calories (HCC) 03/25/2017 SALVADOR on CPAP 04/19/2020 Paroxysmal atrial fibrillation (HCC) 01/21/2017 PMB (postmenopausal bleeding) 08/19/2021 Right internal carotid occlusion 02/13/2017 Thickened endometrium 09/06/2021 Type 2 diabetes mellitus (HCC) Type 2 diabetes mellitus without complications (HCC) 01/21/2017 Past Surgical History: Past Surgical History: Procedure Laterality Date ARTHROPLASTY KNEE TOTAL Right 05/11/2023 ROBOTIC ARTHROPLASTY KNEE TOTAL performed by Lindsey Davidson DO at OR [facility] COLONOSCOPY, DIAGNOSTIC (RECTUM) 11/12/2016 adenocarcinoma/[facility] COLONOSCOPY, DIAGNOSTIC (RECTUM) 02/16/2018 serrated adenomatous polyp, repeat 1 yr/[facility] COLONOSCOPY, DIAGNOSTIC (RECTUM) 03/16/2019 benign polyps, repeat 2 yrs/[facility] COLONOSCOPY, DIAGNOSTIC (RECTUM) 04/11/2021 normal, repeat 3 yrs / [facility] DENTAL SURGERY PROCEDURE NEC Dental Surgery Procedure wisdom teeth INFORMATION 04/2022 Cardioversion. INFORMATION Part of colon removed. INFORMATION 11/2021 Heart Cath [place] FLEX SIGMOID DIAGNOSITIC 11/20/2016 SIGMOIDOSCOPY FLEXIBLE DIAGNOSTIC performed by Declan West MD at ENDOSCOPY [facility] REMOVAL OF OVARY(S) Left REMOVAL OF OVARY(S) FOR TUMOR benign REMOVE KNEE JOINT LINING, ANT/POST Right 06/17/2023 ARTHROTOMY KNEE WITH SYNOVECTOMY ARTERIOR OR POSTERIOR performed by Lindsey Davidson DO at OR [facility] REVISE KNEE JOINT REPLACEMENT Right 06/17/2023 TOTAL KNEE REVISION ONE COMPONENT performed by Lindsey Davidson DO at OR [facility] Subjective: Cooperative for PT consult Social History/Disposition Lives with: Spouse (06/18/23914) Assistance available: Yes (06/18/23914) Dwelling type: Multi-story home (first floor s/u) (06/18/23914) Entry steps: Other - Describe (10 with HR) (06/18/23914) Inside steps: 10 - 15 (06/18/23914) Bedroom location: 2nd floor (06/18/23914) Bath location: 1st floor powder room;2nd floor full bath (06/18/23914) Prior Level of Function Reported by: Patient (06/18/23914) Ambulation: Ambulatory with device;Ambulatory without device (06/18/23914) Ambulatory Device: Quad cane (06/18/23914) Devices at home: Bedside commode;Quad cane;Shower chair;Long-handled shoe horn;Sock aid;Grab bars;Dressing stick;Welcome Hostess (06/18/23914) Observations Consciousness: Alert (06/18/23914) Orientation: Oriented times 4 (06/18/23914) Psychosocial: Patient can communicate basic needs;Patient can converse in a social setting (06/18/23914) Other Findings: No (06/18/23914) Sitting Posture: Forward head;Rounded shoulders (06/18/23914) Standing Posture: Forward head;Rounded shoulders (06/18/23914) Pain: No complaints of pain Range of Motion Range of Motion: WFL, except (R knee NT due to immobilizer) (06/18/23914) Strength Assessment Strength Assessment: WNL (06/18/23914) Transfers Sit-Stand: Supervision (06/18/23914) Stand-Sit: Supervision (06/18/23914) Ambulation: Distance ambulated (feet): 250 Assistive Device: Rolling walker Assist: Supervision Stair Trainin steps with 1 HR and quad cane with supervision Balance Sit (Static): Normal (06/18/23914) Sit (Dynamic): Good (06/18/23914) Stand (Static): Good (06/18/23914) Stand (Dynamic): Good (06/18/23914) Patient and or Family Goal(s): to get well and to return home Patient Education Review of Precautions: Safety;Fall (06/18/23914) Education on Immobilizer: Yes (06/18/23914) Safety Awareness: Patient verbalizes insight of current deficits;Patient demonstrates carryover of insight during functional tasks;Patient can communicate basic needs (06/18/23914) Preferred learning method: Combination (06/18/23914) Barriers to learning: Medical Status (06/18/23914) Method of Education: Verbalized to patient (06/18/23914) Topic of Education: Stair training Method of Education: Demonstrated the above task to patient who demonstrated the exercise and or task Treatment Provided: Alarm Status Patient positioned in: Chair (06/18/23914) With: Call gregg in reach (06/18/23914) Treatment Status: Treatment at bedside (06/18/23914) Goals: Demonstrate Transfers with: Sit to stand: modified independent (with device or slow) Demonstrate Ambulation: assistive device: narrow base quad cane distance in feet: 175 level of assistance on level surface: modified independent (with device or slow) Demonstrate Stairclimbing: Number of steps: 10 steps with 1 HR and quad cane with supervision Time Frame: 1-10 visits Assessment: PT consult completed this date. The patient expressed no pain R LE. Immobilizer in place and patient educated on its use. Patient able to perform sit to stands with supervision and then ambulate in the room as well as in the hallway with a rolling walker with supervision. Reciprocal gait pattern demonstrated with good balance and good safety awareness. She was able to ambulate up to 250 feet as well as ascend/descend 8 steps with a HR and a quad cane with supervision. Would considerhome with post-acute care services which may include outpatient therapy or home health. The level of care will be determined in collaboration with the patient, family/caregiver, and care team members. Current PT AM-PAC score: 19 Deficits requiring P.T. treatment needs: Mobility (06/18/23914) Equipment Needs: Treatment Plan: Gait training and Elevation training Anticipated Frequency (on eval): 1 to 3 times per week (06/18/23914) AM PAC Score with Stairs: 19 * Princess Cisneros OT - 06/18/2023 8:25 AM ESTAssociated Order(s): ADULT OCCUPATIONAL THERAPY CONSULT IP; ADULT OCCUPATIONAL THERAPY CONSULT IP GENERAL EVALUATION - Occupational Therapy [address] [address] Name: Nenita Whitman Location: [facility] 6B-[id number]/D Date: 06/18/2023 Time: 824 Nenita Whitman is a 67 year old female. Per H&P " 67-year-old female presented to [facility] today regarding a right knee wound and dehiscence which occurred over the course of this past week. She describes some degree of drainage as well as odor over the past few days. She underwent previous right total knee arthroplastyon 05/11/2023. She experienced issues with postoperative swelling as well as some blister formation over the anterior knee however this essentially resolved after the 1st few weeks following her procedure. She reports doing well from a rehab standpoint. She does not report any fevers, chills or night sweats. She has been noticing increasing range of motion as well as improvement in her mobility. Following her evaluation through the [facility], she was sent to the emergency department for further evaluation and treatment." Patient Status: Inpatient Insurance: Payor: [employer] Plan: [employer] CLASSIC [id number] Product Type: *No Product type* Patient Seen: at bedside, nursing cleared patient for therapy Patient Identified By: Name, ID Band and Date Diagnosis: infection of R knee (06/18/23824) Status of treatment: Evaluation completed (06/18/23847) Orders: OT evaluation and treatment (06/18/23824) Weight Bearing Status: Weight bearing as tolerated (R LE WBAT in knee immobilizer) (06/18/23824) Precautions: Alarms;Falls;Safety (knee immobilizer, wounbd vac) (06/18/23824) Total Treatment Time: 23 (06/18/23 0845) Past Medical History: Past Medical History: Diagnosis Date A-fib (HCC) 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 02/23/2019 BCC (basal cell carcinoma), scalp/neck 11/04/2018 Body mass index (BMI) of 45.0 to 49.9 in adult (HCC) 04/20/2017 Per Obesity protocol #1 Dyslipidemia, goal LDL below 70 12/30/2019 Endometrial polyp 09/06/2021 Essential hypertension with goal blood pressure less than 140/90 09/02/2016 Hemiplegia and hemiparesis following cerebral infarction affecting left non- dominant side (HCC) 01/21/2017 History of basal cell cancer 01/24/2019 History of colon cancer 06/24/2018 History of melanoma in situ 07/27/2019 Hypertension Left renal mass 01/26/2017 Morbid obesity due to excess calories (HCC) 03/25/2017 SALVADOR on CPAP 04/19/2020 Paroxysmal atrial fibrillation (HCC) 01/21/2017 PMB (postmenopausal bleeding) 08/19/2021 Right internal carotid occlusion 02/13/2017 Thickened endometrium 09/06/2021 Type 2 diabetes mellitus (HCC) Type 2 diabetes mellitus without complications (HCC) 01/21/2017 Past Surgical History: Past Surgical History: Procedure Laterality Date ARTHROPLASTY KNEE TOTAL Right 05/11/2023 ROBOTIC ARTHROPLASTY KNEE TOTAL performed by Lindsey Davidson DO at OR [facility] COLONOSCOPY, DIAGNOSTIC (RECTUM) 11/12/2016 adenocarcinoma/[facility] COLONOSCOPY, DIAGNOSTIC (RECTUM) 02/16/2018 serrated adenomatous polyp, repeat 1 yr/[facility] COLONOSCOPY, DIAGNOSTIC (RECTUM) 03/16/2019 benign polyps, repeat 2 yrs/[facility] COLONOSCOPY, DIAGNOSTIC (RECTUM) 04/11/2021 normal, repeat 3 yrs / [facility] DENTAL SURGERY PROCEDURE NEC Dental Surgery Procedure wisdom teeth INFORMATION 04/2022 Cardioversion. INFORMATION Part of colon removed. INFORMATION 11/2021 Heart Cath [place] FLEX SIGMOID DIAGNOSITIC 11/20/2016 SIGMOIDOSCOPY FLEXIBLE DIAGNOSTIC performed by Declan West MD at ENDOSCOPY [facility] REMOVAL OF OVARY(S) Left REMOVAL OF OVARY(S) FOR TUMOR benign REMOVE KNEE JOINT LINING, ANT/POST Right 06/17/2023 ARTHROTOMY KNEE WITH SYNOVECTOMY ARTERIOR OR POSTERIOR performed by Lindsey Davidson DO at OR [facility] REVISE KNEE JOINT REPLACEMENT Right 06/17/2023 TOTAL KNEE REVISION ONE COMPONENT performed by Lindsey Davidson DO at OR [facility] Social History/Disposition Lives with: Spouse (06/18/23824) Assistance available: Yes (06/18/23824) Dwelling type: Multi-story home (first floor setup) (06/18/23824) Entry steps: (10 with HR) (06/18/23824) Inside steps: None (that pt has to access) (06/18/23824) Bedroom location: 2nd floor (bed was brought down to first floor after knee surgery) (06/18/23824) Bath location: 1st floor powder room;2nd floor full bath (06/18/23824) Prior Level of Function Reported by: Patient (06/18/23824) Ambulation: Ambulatory with device (06/18/23824) Ambulatory Device: Cane (06/18/23824) Grooming: Independent (06/18/23824) Bathing: Independent (06/18/23824) Dressing: Independent (06/18/23824) Feeding: Independent (06/18/23824) Toileting: Independent (06/18/23824) Meal Prep: Independent (06/18/23824) Homemaking: Independent (06/18/23824) Shopping: Independent (06/18/23824) Medication Management: Independent (06/18/23824) Money Management: Independent (06/18/23824) Occupation/Leisure Skills: Music;Social group;Employed (06/18/23824) Driving: Yes (06/18/23824) Durable Medical Equipment at home: Bedside commode;Shower chair;Dressing stick;Rolling walker;Grab bars;Long-handled shoe horn;Long-handled sponge;Welcome Hostess (06/18/23824) Subjective: Pt without significant comment and agreeable to participate in therapy. Pain: Patient has complaints of pain. Pain located in R knee. Pt did not numerically rate pain. Observations Consciousness: Alert (06/18/23824) Orientation: Oriented times 4 (06/18/23824) Cognitive Limitations: (none noted on OT eval) (06/18/23824) Psychosocial: Patient can communicate basic needs;Patient can converse in a social setting (06/18/23824) Visual Deficits: (glasses as needed) (06/18/23824) Sitting posture: Forward head;Rounded shoulders (06/18/23824) Standing posture: Forward head;Rounded shoulders (06/18/23824) Safety awareness: The Patient verbalizes insight of current deficits.;Needs cueing supervision.;ThePatient demonstrates carryover of insight during functional tasks. (06/18/23824) Other Findings Light touch sensation: LUE;RUE;Intact (06/18/23824) Coordination: LUE;RUE;Gross motor;Fine motor;Intact (06/18/23824) Current Functional Status: Bilateral Upper Extremity Hand Dominance: Right (06/18/23824) Range of Motion: WFL (06/18/23824) Strength Assessment: WNL (06/18/23824) Self Care Able to provide self care: Yes (06/18/23824) Feeding: Independent (06/18/23824) Grooming: Supervision (Please comment) (06/18/23824) Toileting: Supervision (Please comment) (06/18/23824) Dressing Upper Body: Supervision (Please comment) (06/18/23824) Lower Body: Moderate Assistance (06/18/23824) Bathing Upper Body: Supervision (Please comment) (06/18/23824) Lower Body: Moderate Assistance (06/18/23824) Functional Ambulation Assistive Device: Rolling walker (06/18/23824) Distance in feet:: 25 (06/18/23824) Level of Assistance: Supervision (Please Comment) (06/18/23824) OT Transfers Sit-Stand: Supervision (Please comment) (06/18/23824) Stand-Sit: Supervision (Please comment) (06/18/23824) Toilet: Supervision (Please comment) (06/18/23824) Balance Sit (Static): Normal (06/18/23824) Sit (Dynamic): Normal (06/18/23824) Stand (Static): Good (06/18/23824) Stand (Dynamic): Good (06/18/23824) Alarm Status Patient positioned in: Chair (06/18/23824) With: Call gregg in reach (06/18/23824) Patient and Family Goals: to get well and to return home Patient Education Education Topic: Role of OT;Plan of care goals (06/18/23824) Review of Precautions: Safety;Fall;Weight Bearing Status (06/18/23824) Method of Education: Verbalized to patient (06/18/23824) Education Provided to: Patient (06/18/23824) Response to Education: Receptive and agreeable to education (06/18/23824) Barriers to learning: Medical status (06/18/23824) Treatment Provided: Therapeutic Activity: 10 minutes Evaluation Moderate Complexity 13 minutes - 15460: Patient was cooperative and pleasant during treatment session. Moderate complexity evaluation performed and 3-5 activity limitations were identified, including ADL deficit, functional mobility deficit, decreased strength, decreased endurance, and impaired balance. Minimal or moderate modification of the functional task was necessary to complete the evaluation. Deficits Requiring O.T. Treatment: Deficits requiring O.T. treatment needs: ADL/self-care;Balance;Endurance;Fine motor coordination;Functional mobility;IADL;Safety;Upper extremity strength;Upper extremity range of motion;Weakness (06/18/23824) Goals: Bathing: Upper: modified independent (100% with device and additional time). Lower: modifiedindependent (100% with device and additional time) Dressing: Upper: modified independent (100% with device and additional time). Lower: modified independent (100% with device and additional time). Transfers with: Sit to Stand: modified independent (with device or slow) Toilet: modified independent (with device or slow) Bed to Chair/Wheelchair: modified independent (with device or slow). Demonstrates ability to tolerate 3/3 meals OOB for 2 consecutive days in a row. Demonstrates Grooming at modified independent (100% with device and additional time). Demonstrates toileting at modified independent (100% with device and additional time) Goal Time Frame: Within 1-10 treatment sessions Assessment: Pt tolerated OT session well. Pt was A&Ox4 and able to answer all prior functional level questions without assist. Pt in bathroom when OT entered room. Pt able to perform sit > stand from the toilet with SPV. Ptable to stand at the sink and wash face and brush teeth with SPV. Pt ambulated back to bed using the RW with SPV for safety and assist for managing IV pole. Pt demonstrated B UE ROM WFL but has significantly decreased B UE strength needed for engagement indaily activities. OT AM-PAC: 18 Pt requires assist with grooming, bathing, dressing , and toileting. As such, Would consider post-acute care services which may include home health, chcf, outpatient therapy,or inpatient rehab. The level of care will be determined in collaboration with the patient, family/caregiver, and care team members. Skilled OT services warranted here at [facility] to address deficits in ADLs and functional mobility. Treatment Plan: Energy Conservation, Safety, Homemaking Skills, Bed mobility training, Functional Ambulation, Transfer training, Coordination Tasks, ROM exercises, Upper extremity strengthening, Balance activities, ADL training , and Endurance Anticipated Frequency (on eval): 1 to 3 times per week (06/18/23824) AM-PAC Help From Another Person Eating Meals: None (06/18/23824) Help From Another Person Taking Care of Personal Grooming: A little (06/18/23824) Help From Another Person To Put On/Take Off Upper Body Clothing: A little (06/18/23824) Help From Another Person To Put On/Take Off Lower Body Clothing: A lot (06/18/23824) Help From Another Person Toileting: A little (06/18/23824) Help From Another Person Bathing: A little (06/18/23824) OT AM-PAC Score: 18 (06/18/23824) OT AM-PAC t-Scale Score: 38.66 (06/18/23824) JH HLM (Highest Level of Mobility) Goal: Level 5 standing (1 or more minutes) (06/18/23804) * Lorraine Rodrigez RN - 06/17/2023 3:29 PM ESTAssociated Order(s): CARE MANAGEMENT CONSULT IP See CM ancillary note. * Vaishali Chan PA-C - 06/15/2023 5:44 PM ESTAssociated Order(s): General Internal Medicine Images from the original note were not included. [facility] [id number]-[id number]/D Hospital Medicine - Consult General Internal Medicine Consult performed by: Vaishali Chan PA-C Consult ordered by: Lindsey Davidson DO REASON FOR CONSULT: Medical management - diabetes mellitus; Coumadin management (plan for OR next 24-48 hours) REQUESTOR OF CONSULT: Lindsey Davidson DO HPI: Nenita Whitman is a 67 year old female with a PMHx of DM2, pAF, SALVADOR on CPAP, s/p total knee arthroplasty on 05/11/23 admitted to the orthopedic service today for postoperative wound infection and wound dehiscence. She was seen in consultation at the request of orthopedics for medical management of the patient's comorbidities and medications. Patient reports her surgical site has not been healing. Denies increased pain from baseline. Patient reports going to PT today, the therapist looked at her surgical site and was concerned for an infection and requested patient be seen today. Shepresented to the orthopedic urgent care and was transferred to the ED for admission for a postoperative wound infection. Denies recent fevers, chills, chest pain, shortness of breath, abdominal pain, nausea and vomiting.Patient does wear a CPAP @HS with 3L of oxygen. Patient reports drinking scotch daily, approximately 2-3 drinks per day. Denies tobacco use. Subjective Patient's past history, medications, and allergies were reviewed. Objective Physical Exam Most Recent Vital Signs: BP: 168 mmHg/53 mmHg (06/15/231700) Pulse: 58 (06/15/231700) Temp: 36.5 C (06/15/231700) Resp: 18 (06/15/231700) SpO2: 93 % (06/15/231700) General: Pt in bed, alert, in no acute distress Head: Normocephalic Ears: External ears normal Oropharynx: mucous membranes moist Heart: regular rate & rhythm and no murmur appreciated Lungs: no respiratory distress, CTA, without wheeze, rhonchi or crackles Abdomen: + BS, soft, nontender, nondistended, no rebound tenderness or guarding Lower Extremities: without pitting edema, no calf tenderness, no stasis changes noted Peripheral Line Right Antecubital 20 Gauge (Active) Number of days: 0 STUDIES: Encounter Orders Labs and other studes reviewed personally by me with pertinent findings noted below: Results for orders placed or performed during the hospital encounter of 06/15/23 COMPREHENSIVE METABOLIC PANEL Result Value Ref Range BUN 18 6 - 20 mg/dL Creatinine 1.0 0.5 - 1.0 mg/dL Estimated Glomerular Filtration Rate 59 (L) >=60 mL/min Sodium 134 (L) 135 - 146 mmol/L Potassium 4.0 3.5 - 5.1 mmol/L Chloride 95 (L) 98 - 107 mmol/L CO2 26 22 - 32 mmol/L Anion Gap 13 7 - 15 mmol/L Glucose 125 (H) 70 - 120 mg/dL Albumin 4.1 3.8 - 5.0 g/dL AST 33 10 - 35 U/L Alkaline Phosphatase 133 (H) 35 - 130 U/L Bilirubin, Total 0.4 <=1.2 mg/dL Calcium 9.7 8.4 - 10.2 mg/dL Protein 7.5 6.0 - 8.3 g/dL ALT 30 10 - 35 U/L CRP (INFLAMMATORY MARKER) Result Value Ref Range CRP (Inflammatory Marker) 9 (H) <=5 mg/L CBC Result Value Ref Range WBC 7.83 4.00 - 10.80 K/uL RBC 3.45 3.85 - 5.15 M/uL HGB 10.3 (L) 12.0 - 15.3 g/dL HCT 32.0 (L) 36.0 - 45.2 % MCV 92.8 81.5 - 97.5 fL MCH 29.9 27.0 - 34.0 pg MCHC 32.2 32.0 - 36.0 g/dL RDW 14.5 11.5 - 15.5 % PLT 454 (H) 140 - 400 K/uL MPV 9.7 6.6 - 11.1 fL nRBCs 0 <=0 /100 WBCs DIFFERENTIAL, AUTOMATED Result Value Ref Range WBC 7.83 4.00 - 10.80 K/uL Neutrophils % 72.7 40.0 - 75.0 % Lymphocytes % 16.6 (L) 18.0 - 42.0 % Monocytes % 7.2 1.0 - 11.0 % Eosinophils % 2.7 0.0 - 6.0 % Basophils % 0.4 0.0 - 2.0 % Immature Granulocytes % 0.4 0.0 - 2.0 % Absolute Neutrophils 5.70 1.80 - 7.70 K/uL Absolute Lymphocytes 1.30 1.00 - 4.80 K/ul Absolute Monocytes 0.56 0.00 - 1.10 K/uL Absolute Eosinophils 0.21 0.00 - 0.70 K/uL Absolute Basophils 0.03 0.00 - 0.20 K/uL Absolute Immature Granulocytes 0.03 0.00 - 0.20 K/uL PT INR Result Value Ref Range Prothrombin Time 32.2 (H) 11.6 - 15.2 seconds INR 3.1 (H) 0.8 - 1.2 *Note: Due to a large number of results and/or encounters for the requested time period, some results have not been displayed. A complete set of results can be found in Results Review. XR KNEE 4 OR MORE VIEWS Final Result PROCEDURE INFORMATION: Exam: XR Right Knee Exam date and time: 06/15/2023 2:57 PM Age: 67 years old Clinical indication: Other: Knee replacement 3 weeks ago, open infected wound over patella area; Additional info: Right knee pain TECHNIQUE: Imaging protocol: Radiologic exam of the right knee. Views: 4 or more views. COMPARISON: DX XR KNEE 3 VIEWS 05/21/2023 1:26 PM FINDINGS: Bones/joints: Total knee arthroplasty. No hardware fracture. No periprosthetic fracture or dislocation. No definite osseous erosion. Moderate joint effusion. Quadriceps and patellar enthesopathy. Soft tissues: Peripatellar soft tissue swelling and stranding. Soft tissue defect anterior to the patella which appears tract to the anterior patellar surface on lateral view. IMPRESSION IMPRESSION: 1. Infectious/inflammatory soft tissue changes about the patella. No definite osseous erosion to suggest osteomyelitis. 2. Moderate joint effusion. 3. Intact total knee arthroplasty. THIS DOCUMENT HAS BEEN ELECTRONICALLY SIGNED BY MARIA LUISA WISDOM MD MRI KNEE RIGHT WO CONTRAST (Results Pending) Assessment and Plan IMPRESSION: Principal Problem: Postoperative wound infection Active Problems: Essential hypertension with goal blood pressure less than 140/90 Type 2 diabetes mellitus without complications (HCC) Paroxysmal atrial fibrillation (HCC) SALVADOR on CPAP Body mass index (BMI) of 40.0 to 44.9 in adult (HCC) History of total knee arthroplasty, right Wound dehiscence, surgical Resolved Problems: * No resolved hospital problems. * RECOMMENDATIONS: Patient admitted to the orthopedic service for a postoperative wound infection s/p right knee arthroplasty today. - CPAP with 3L O2 @HS ordered. - Hold home metformin, may resume at discharge - Accuchecks and sliding scale coverage qAC&HS as indicated per protocol. - Hold home coumadin in anticipation of surgery in the next 24-48hrs. - Hold home lasix for now, monitor volume status. Patient is currently euvolemic, if patient becomes hypervolemic then discontinue fluids and resume lasix. - Continue IV isolyte infusion. - Check CBC, BMP, INR in AM. (Ordered by me). - Antibiotics, pain management, surgical site care, and MRI as per primary service. - NPO after 2400. I spent a total of 45 minutes coordinating, documenting, and providing care for this patient excluding time spent in the performance of separately billed services or time spent by another provider/QHP. Vaishali Chan PA-C Associated attestation - Janeth Donato MD - 06/15/2023 7:09 PM EST I have reviewed the advanced practitioner documentation and agree. I saw and evaluated the patient on date of service referenced in note Hold home metformin. Use ISS while inpatient Hold coumadin in veiw of possible surgery Check INR tomorrow AM. If surgery is planned for tomorrow and INR is elevated, may need reversal depending on planned procedure documented in this encounter Nursing Notes * Dena Bhatia RN - 06/19/2023 3:15 PM EST NURSING DISCHARGE PROGRESS NOTE Discharge teaching/education given to patient. Patient verbalized understanding at this time. IV removed prior to leaving. Bedside pharm meds given to the patient. Patient transported via wheelchair to husbands car. * Delphine Pascual NA/UDC - 06/19/2023 1:45 PM EST Pharmacy [facility] Clinic: Thursday June 22, 2023 @ 6:45 a.m. Friday June 30, 2023 @ 6:15 a.m. These are call visits, you do not have to go into the office. *if you need to reschedule please call [phone]* Balta Hyde PA-C Orthopaedics [facility] [phone] [address] [id number] June @ 11:00 a.m. * Litzy Overton RN - 06/17/2023 6:53 PM EST Dual Licensed Skin Assessment completed by Litzy Overton RN and Leila Doran RN. The patient is/has a unable to assess Skin Breakdown (includes non blanchable erythema): Yes - Surgical/Procedural changes only. Patient has a wound vac in place, No pressure related wounds present. * Litzy Overton RN - 06/17/2023 6:51 PM EST IN-HOUSE TRANSFER RECEIVING UNIT - NURSING [address] [address] Name: Nenita Whitman Location: [facility] 6B-6012/D Date: 06/17/2023 Time: 6:51 PM Patient received to room [facility] at 1810 Vital Signs: BP: 144 mmHg/51 mmHg (06/17/231843) Pulse: 62 (06/17/231843) Temp: 35.89 C (06/17/231843) Resp: 16 (06/17/231843) SpO2: 97 % (11/29/23 1844) Pertinent transfer information upon arrival SBAR, wound vac information, medications given, IV site. Belongings received with patient: electronic device (comment specifics): Wound Vac and immobilizer Verbal SBAR report received from: Nohelia Rausch RN * Nohelia Rausch RN - 06/17/2023 5:55 PM EST Post Anesthesia Care Unit Discharge Note [address] [address] Dept[address] Nenita Whitman Vital Signs Stable Discharged from PACU as per discharge criteria (see discharge criteria sheet). Time: 1800 Reported to: RN 6b Taken to Inpatient Room 60, accompanied by Responsible adult Edgar Rausch RN. Transported via: Bed Belongings with Patient: Not Applicable Prescriptions on Chart: N/A Patient meets criteria to be transferred or discharged * Clarita Armenta RN - 06/15/2023 5:54 PM EST IN-HOUSE TRANSFER RECEIVING UNIT - NURSING [address] [address] Name: Nenita Whitman Location: [facility]-6012/D Date: 06/15/2023 Time: 5:54 PM Patient received to room 6012 at 1655 Vital Signs: BP: 168 mmHg/53 mmHg (06/15/23 170) Pulse: 58 (06/15/231700) Temp: 36.5 C (06/15/231700) Resp: 18 (06/15/231700) SpO2: 93 % (06/15/231700) Pertinent transfer information upon arrival Pt AAOx4 on RA. Rating pain mild at this time. Dressingin place on R knee and changed. Xeroform, gauze 4x4 and VANE wrap. Wounds charted in flowsheet. Belongings received with patient: clothing/shoes Verbal SBAR report received from: Nate Downey RN Dual Licensed Skin Assessment completed by Leo Armenta RN and Jorje Bhatia RN. The patient is/has a N/A Skin Breakdown (includes non blanchable erythema): Yes. Wound Type: Other, location R knee Wound Ostomy Nurse Notified: No - care per ordered treatment Nursing interventions: Dressing changed, xeroform, gauze 4x4, VANE wrap. * Balbina Colón RN - 06/15/2023 5:28 PM EST VIRTUAL RN [facility]-[address] [address] Name: Nenita Whitman Location: [facility] 6B-6012/D Date: 06/15/2023 Time: 5:28 PM I completed the Admission Navigator. The patient was in the hospital. I was not in a hospital or clinic location. After connecting through [employer], the patient was identified by name and date of and / or wristband checked. Patient (or authorized legal banking representative) was then informed that this was a Virtual Nurse visit and was being conducted confidentially over secure lines. I used a headset and other methods to ensure confidentiality for the patient. My office door was closed. No oneelse was in the room with me. Patient acknowledged consent and understanding of privacy and security of the Virtual Nurse visit. I presented the opportunity for the patient or authorized legal banking representative to ask any questions regarding the visit today. The patient or authorized legal banking representative agreed to participate. documented in this encounter OR Notes * OR Surgeon - Lindsey Davidson DO - 06/17/2023 5:24 PM EST OPERATIVE RECORD OR GL, Operating Room, [facility] - 4th Floor [address] [place] [address] Nenita Whitman : 1955 DATE OF OPERATION: 06/17/2023 SERVICE: ORTHOPAEDIC SURGERY SURGEON: Lindsey Davidson, ASSISTANTS: Peter Blandon MD; Antonio Villeda MD - Orthopedic resident PGY-2; Kai Hyde PA-C Was there a qualified resident that took part in the case? Yes - Resident was qualified to assist. PREOPERATIVE DIAGNOSIS: Right knee postoperative wound dehiscence with infection POSTOPERATIVE DIAGNOSIS: Right knee postoperative wound dehiscence with superficial infection PROCEDURE: Right knee wound debridement with incisional VAC application FINDINGS: Right knee demonstrated evidence of primary wound measuring 6 cm x 2.5 cm with a depth ofroughly 1 cm extending to the anterior there was evidence of a small eschar distally measuring 2 cmx 2 cm as well as 1 more proximally measuring 1 cm x 0.5 cm. At the superior aspect of the surgicalscar there was evidence of a 2 cm x 2 cm eschar. There was evidence of wound odor as well as some degree of purulence. The joint capsule remained intact without evidence of violation. There was no evidence of sinus tract development. Adherent healthy tissue noted along the deep periphery of the wound. Total area of debrided tissue measured roughly 7 cm x 3 cm, 1 cm x 2 cm and 1 cm x 1 cm. ESTIMATED BLOOD LOSS: 150 mL IV FLUID: 600 mL URINE: N/A SPECIMEN: None IMPLANTS: None ANESTHESIA: General endotracheal -- Time Out Completed per Policy: Yes -- Surgical Count Completed and Correct: Yes TOURNIQUET TIME: 24 minutes at 225 mmHg, right upper thigh DRAINS: None COMPLICATIONS: None. CONDITION: Stable INDICATIONS AND BRIEF HISTORY: 67-year-old female previously presented to Orthopedic Urgent Care today regarding a right knee wound and dehiscence which occurred over the course of this past week. She describes some degree of drainage as well as odor over the past few days. She underwent previous right total knee arthroplasty on 05/11/2023. She experienced issues with postoperative swelling as well as some blister formation over the anterior knee however this essentially resolved after the 1st few weeks following her procedure. She reports doing well from a rehab standpoint. She does not report any fevers, chills or night sweats. She has been noticing increasing range of motion as well as improvement in her mobility. Cohendelio reddy given the development of wound dehiscence with associated superficial infection, recommendationwas to proceed with wound debridement with the possibility of wound VAC application as well as polyethylene exchange versus two-stage revision procedure. After thorough discussion, she was agreeable to proceed. Appropriate consent was obtained and she was scheduled for the necessary procedure. DESCRIPTION OF PROCEDURE: The patient was met in the preoperative holding area by me who correctly identified the right knee as the operative site. This was marked with skin marker. The patient was then brought to the operative suite and placed in a supine position on the OR table. A general Anesthetic was placed by the denise thesiologist. All bony prominences were well padded and the patient was securely fastened to the table. A tourniquet was applied to the upper thigh. The patient was prepped and draped in normal sterile fashion in such a manner as to leave the right lower extremity freely mobile for the necessary procedure. A timeout was performed to note that the proper patient was in the room and the appropriateprocedure was to be undertaken. Once deemed correct by all present, the procedure commenced. The previous surgical scar was marked. The tourniquet was inflated without utilizing the Esmarch. The leg was then placed in a semi-flexed position utilizing a DeMayo leg garcia. A 10 blade was then utilized to incise the marked surgical scar extending to the most superficial and distal aspects. Atthis point the peripheral necrotic tissue along the wound was sharply removed with use of a 10 blade until we encountered healthy peripheral bleeding tissue. We are able to extend deep with blunt finger dissection to the anterior aspect of the joint capsule. Blunt dissection was performed the subcutaneous tissue from the underlying fascia and joint capsule. At this point a fresh 10 blade was then used to further excise devitalized tissue along the periphery of the wound. We removed the epidermis as well as subcutaneous tissue. The most proximal and distal extents of the incision were also debrided sharply with use of a 10 blade removing the eschar as well as devitalized epidermisand subcutaneous tissue. A good punctate bleeding border was achieved along the periphery of the wound. We then continued debridement with use of a curette as well as rongeur making sure all devitalized tissue adjacent to the joint capsule was excised. Following this the joint was thoroughly irrigated with normal saline solution mixed with gentamicin. Residual Vicryl sutures were removed from thesubcutaneous tissue. We were able to visualize the medial arthrotomy which demonstrated no evidenceof attenuation or deficiency. The subcutaneous tissue was quite adherent to the periphery of the wound. There was no evidence of tracking. Examination of the joint capsule revealed no evidence of violation. We did not proceed at this point with further exploration involving the intra-articular aspect. At this point remaining debridement was performed sharply with use of a 15 blade as well as rongeur and curette obtaining a good bleeding border along the periphery of the wound as well as wound base. The wound was thoroughly irrigated with peroxide and Betadine mixture as well as Irrisept. Thiswas allowed to let stand for 1 minute following adequate irrigation utilizing Pulsavac with normal saline solution mixed with gentamicin. A venous tourniquet at this point was noted. The tourniquet was let down at 24 minutes. Visualization and hemostasis greatly improved. Bovie electrocautery was utilized for hemostasis along the wound periphery. We then proceeded with closure. The lower extremity was maintain in extension in the wound was approximated in a stepwise fashion working from the most proximal and distal extents towards the central region. We utilized 0 PDS suture within the subcutaneous portion along the most distal and proximal aspects. After general approximation, we utilized a combination of 0 PDS suture as well as #2 nylon in a tension relieving technique through the skin.We were able to obtain excellent approximation leaving only a few mm of separation at the most central aspect. At this time the wound was cleaned and dried and a sterile dressing was applied to consist of Adaptic followed by incisional wound VAC application. The drapes were then removed and anesthesia was reversed. The right lower extremity was wrapped with soft roll followed by two 6 in Vane wraps. The patient was then placed in a knee immobilizer. The patient tolerated the procedure well and was taken to the PACU in stable and satisfactory condition. The postoperative neurovascular status remained unchanged from preoperative baseline. POST-OP PLAN: The patient will be admitted for ongoing IV antibiotics, postoperative pain control, rehabilitationand medical management. Scheduled antibiotics will continue as previously ordered. DVT prophylaxis will be initiated immediately with bilateral lower extremity SCDs. Lovenox will start postoperative day 1 with transition back to Coumadin. Pain will be controlled with a oxycodone, IV Toradol and Tylenol. Physical therapy will be initiated the day of surgery. The patient will be weightbearing as tolerated to the right lower extremity. The knee immobilizer will remain in place at all times. The patient is not to flex the right knee until re-evaluation in 1 week. Anticipated discharge to home with home health in the upcoming days. Lindsey Davidson DO 06/17/2023 5:25 PM * Operative Report Brief - Lindsey Davidson DO - 06/17/2023 5:13 PM EST [facility] [address] OPERATIVE REPORT - BRIEF Name: Nenita Whitman Date: 06/17/2023 Time: 5:13 PM Location: [facility] Service: Orthopedic Surgery Date of Operation: 06/17/2023 Pre-op Diagnosis: Right knee postoperative wound dehiscence with infection Post-op Diagnosis: Right knee postoperative wound dehiscence with superficial infection Operation: Right knee wound debridement with incisional VAC application Surgeon: Lindsey Davidson DO Assistants: Peter Blandon MD; Antonio Villeda MD - orthopedic resident PGY-2; aKi Hyde PA-C Anesthesia: General endotracheal anesthesia Postoperative pain management per Anesthesia for evaluation and placement of regional anesthesia toreduce the need for opioid pain medication. Drains: none Estimated Blood Loss: 150 ml. IV Fluids: 600 ml. Urine Output: N/A Specimens/Disposition: None Apparent Intraoperative Complications: NONE Patient Condition: stable Disposition: Post Anesthesia Care Unit Attestation: I performed the procedure documented in this encounter ED Notes * Lindsey Eller MD - 06/15/2023 2:38 PM EST HISTORY OF PRESENT ILLNESS Nenita Whitman is a 67 year old female who presents to the ED for evaluation of Infection. The patient was seen at 06/15/23 1403. Patient here with redness and drainage from her incision site on the right knee. States that she had a knee replacement surgery 4 weeks ago. States that over the past week it is had increased redness, drainage and an opening at the incision. She has mild pain in the knee, but is able to move it and walk on it. She denies any fevers or chills. She states that she was on an antibiotic but that has ran out at this point. Allergies: Lisinopril Review of Systems Skin: Positive for wound (Right knee). The patient's allergies, past history, and medications were reviewed. PHYSICAL EXAM Initial Vitals (see all): BP 137/52 | Pulse 54 | Resp 20 | Temp 97.9 | O2 100 %, Room Air, None | Weight 94.35 kg | Height 162.6 cm | BMI 35.7 kg/m2 Initial Pain Assessment (see all): 4 (moderate pain)/10, Aching, location: right knee ([facility] Adult Scale 0-10) Physical Exam Constitutional: General: She is not in acute distress. Appearance: Normal appearance. She is not ill-appearing, toxic-appearing or diaphoretic. Skin: Comments: The skin overlying the incision site has surrounding erythema on the right knee. There issome serous drainage coming from the wound. It is warm to touch. She is able to flex and extend theknee rather well without much discomfort. There is a [id number] knee effusion noted. Neurological: Mental Status: She is alert. PROCEDURES AND TREATMENTS ED Orders | ED Results MEDICAL DECISION MAKING Nursing notes and vital signs were reviewed. ED consults were placed. ED Course as of 06/15/232151Jun 15, 2023 1405 ED Triage Notes Right knee surgery 4 weeks ago. Was seen in [place] today for concerns of site infection and was told to come to the ED for further evaluation. Family reports its "gapping about an inch" and patient herself reports the wound is red and draining. Ambulate into triage with a walker. Denies fevers at home. [MM] 1405 BP: 137/52 [MM] 1405 Pulse: 54 [MM] 1405 Resp: 20 [MM] 1405 SpO2: 100 % [MM] 1405 Temp: 36.6 C (97.9 F) [MM] 1425 Orthopedics paged for re-evaluation [MM] 1457 WBC: 7.83 [MM] 1511 INR(!): 3.1 [MM] 1511 CRP (Inflammatory Marker)(!): 9 [MM] 1525 IMPRESSION: 1. Infectious/inflammatory soft tissue changes about the patella. No definite osseous erosion to suggest osteomyelitis. 2. Moderate joint effusion. 3. Intact total knee arthroplasty. [MM] 1618 Patient admitted to the orthopedic service for further management [MM] ED Course User Index [MM] Lindsey Eller MD Patient here with increased drainage and concern for wound infection at the site of her [id number] TKA incision. Orthopedics was consulted, they evaluated the patient, they are concern for wound infection. She was admitted to their service for further evaluation and management. Amount and/or Complexity of Data Reviewed Labs: ordered. Decision-making details documented in ED Course. Radiology: ordered. Risk Decision regarding hospitalization. Clinical Impressions Infection of right knee (HCC) Disposition Admitted. I discussed the management of this patient with the admitting provider and I made a decision to admit the patient. Admission Order Ordered Status . 06/15/23 1616 Admit for Inpatient Services (incl ZPO) ONCE Completed Lindsey Eller * Jia Laird RN - 06/15/2023 1:43 PM EST Right knee surgery 4 weeks ago. Was seen in [place] today for concerns of site infection and was told to come to the ED for further evaluation. Family reports its "gapping about an inch" and patient herself reports the wound is red and draining. Ambulate into triage with a walker. Denies fevers at home. documented in this encounter Miscellaneous Notes * Care Plan - Dena Bhatia RN - 06/19/2023 3:15 PM EST Clinical Goal(s): Patient will be OOB and into the chair for all meals during this shift. (835) Possible barriers to meeting goal(s)/advancing plan of care: Right knee surgical incision Stability of the patient: Moderately stable - low risk of patient condition declining or worsening Summary regarding today's goal(s): Met: Patient was OOB and into the chair for all meals during this shift. Recommendations: Patient discharged home. * Ancillary Progress Note - Lorraine Rodrigez RN - 06/19/2023 1:51 PM EST CARE MANAGEMENT - ADULT DISCHARGE NOTE [facility] [address] Name: Nenita Whitman Location: [facility] [id number] Date: 06/19/2023 Time: 1:52 PM The following coordination of care and discharge plan has been coordinated with the care team, patient, family and/or caregiver according to the patients needs and preferences. Discharge Discharge Second Notice Important Message from Medicare delivered: Not Applicable (06/19/23 1351) Was Caregiver/Family/Facility contacted regarding discharge: Yes (06/19/23 1351) Discharge Transportation: Family/Friends drive (06/19/23 1351) Date of scheduled discharge transportation: 06/19/23 (06/19/23 1351) Home Medical Care - Admitted Since 06/15/2023 Service Provider Selected Services Address Phone Fax Patient Preferred Last Updated [facility] ([place] Home Health Services [address] [facility] [place] [address] -- Lorraine Rodrigez RN 06/19/2023 1350 Home Medical Care - Episodes Includes Home Medical Care providers with selected services from the active episodes listed below Level 2 Complex Case Management Episode start date: 06/18/2023 There are no active outsourced providers for this episode. Narrative: Patient discharged home with spouse and [facility] home health. Patient was declined by [facility] but was accepted by [facility] for SOC 06/22. Family will provide transportation on DC. * Pt Handout (on AVS) - Laurence Luz RN - 06/19/2023 1:50 PM EST Images from the original note were not included. [id number] Sennosides/Docusate Oral Tablet Brands: Colace w/Sennosides, Laxacin, Senexon S, SENOKOT-S, SenoSol-SS Uses For bowel movement. Instructions Swallow with a full glass (8 oz) of water unless your doctor gives you different instructions. Keep the medicine at room temperature. Avoid heat and direct light. 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 Do not use laxatives for more than one week unless directed by your doctor. To reduce constipation, eat high fiber foods, drink plenty of water and exercise. Tell your doctor and pharmacist about all your medicines. Include prescription and pwml-tgh-nmokviltwqkxffah, vitamins, and herbal medicines. Tell your doctor if symptoms do not get better or if they get worse. Do not take the medicine more than twice during 24 hours. Cautions Tell your doctor and pharmacist if you ever had an allergic reaction to a medicine. Do not use the medication any more than instructed. Tell the doctor or pharmacist if you are , planning to be , or . Side Effects The following is a list of some common side effects from this medicine. Please speak with your doctor about what you should do if you experience these or other side effects. diarrhea changes in the color of the urine or stool nausea stomach upset or abdominal pain Call your doctor or get medical help right away if you notice any of these more serious side effects: confusion severe, watery or bloody diarrhea dizziness fainting fast or irregular heart beats muscle weakness urinating less often dark urine severe or persistent vomiting A few people may have an allergic reaction to this medicine. Symptoms can include difficulty breathing, skin rash, itching, swelling, or severe dizziness. If you notice any of these symptoms, seek medical help quickly. Extra Please speak with your doctor, nurse, or pharmacist if you have any questions about this medicine. https://api.Biart/[email or web address]/fdbpem/3109 IMPORTANT NOTE: This document tells you briefly how to take your medicine, but it does not tell youall there is to know about it. Your doctor or pharmacist may give you other documents about your medicine. Please talk to them if you have any questions. Always follow their advice. There is a more complete description of this medicine available in [place]. Scan this code on your smartphone or tablet or use the web address below. You can also ask your pharmacist for a printout. If you have any questions, please ask your pharmacist. The display and use of this drug information is subject to Terms of Use. Copyright(c) 2022 [employer]. [employer]. All rights reserved. This information is not intended as a substitute for professional medical care. Always follow your healthcare professional's instructions. * Pt Handout (on AVS) - Laurence Luz RN - 06/19/2023 1:50 PM EST Images from the original note were not included. [id number] Lactobacillus Acidophilus Oral Tablet Uses No information is available. Instructions This medicine may be taken with or without food. Please ask your pharmacist if this medicine should be refrigerated or stored at room temperature. If you forget to take a dose on time, take it as soon as you remember. If it is almost time for thenext dose, do not take the missed dose. Return to your normal schedule. Do not take 2 doses at one time. Drug interactions can change how medicines work or increase risk for side effects. Tell your healthcare providers about all medicines taken. Include prescription and ffpj-kgu-lfcwwpk medicines, vitamins, and herbal medicines. Speak with your doctor or pharmacist before starting or stopping any medicine. Tell your doctor if symptoms do not get better or if they get worse. You may stop using this medicine if you no longer have symptoms. Cautions Tell your doctor and pharmacist if you ever had an allergic reaction to a medicine. Do not use the medication any more than instructed. Contact your doctor if you develop any signs of a new infection such as fever, cough, sore throat, or chills. Tell the doctor or pharmacist if you are , planning to be , or . Side Effects The following is a list of some common side effects from this medicine. Please speak with your doctor about what you should do if you experience these or other side effects. bloating excess gas Call your doctor or get medical help right away if you notice any of these more serious side effects: fever or chills A few people may have an allergic reaction to this medicine. Symptoms can include difficulty breathing, skin rash, itching, swelling, or severe dizziness. If you notice any of these symptoms, seek medical help quickly. Extra Please speak with your doctor, nurse, or pharmacist if you have any questions about this medicine. https://api.Biart/[email or web address]/fdbpem/361 IMPORTANT NOTE: This document tells you briefly how to take your medicine, but it does not tell youall there is to know about it. Your doctor or pharmacist may give you other documents about your medicine. Please talk to them if you have any questions. Always follow their advice. There is a more complete description of this medicine available in [place]. Scan this code on your smartphone or tablet or use the web address below. You can also ask your pharmacist for a printout. If you have any questions, please ask your pharmacist. The display and use of this drug information is subject to Terms of Use. Copyright(c) 2022 [employer]. 5250-7365 [employer]. All rights reserved. This information is not intended as a substitute for professional medical care. Always follow your healthcare professional's instructions. * Pt Handout (on AVS) - Laurence Luz RN - 06/19/2023 1:49 PM EST Images from the original note were not included. [id number] Ciprofloxacin Oral Tablet Brands: Cipro Uses This medicine is used for the following purposes: infections caused by bacteria urinary tract infections Instructions Swallow the medicine without crushing or chewing it. This medicine may be taken with or without food. Keep the medicine at room temperature. Avoid heat and direct light. Drink extra water while on this medicine. Adults should try to drink 6-8 cups (48 to 64 oz.) of water every day. Avoid drinks with caffeine while on this medicine. Do not take this medicine with milk or milk products (such as yogurt). Do not take any antacids or vitamins with magnesium, calcium, aluminum, iron, or zinc for 6 hours before or 2 hours after taking this medicine. This medicine can make you sensitive to the sun. Use sunscreen or protective clothing when in sun. If you forget to take a dose on time, take it as soon as you remember. If it is less than 6 hours to the next dose, do not take the missed dose. Return to your normal dosing schedule. Do not take 2 doses of this medicine at one time. Drug interactions can change how medicines work or increase risk for side effects. Tell your healthcare providers about all medicines taken. Include prescription and qdtl-xcv-dukfcbh medicines, vitamins, and herbal medicines. Speak with your doctor or pharmacist before starting or stopping any medicine. Tell your doctor if symptoms do not get better or if they get worse. Keep using this medicine for the full number of days that it is prescribed. Do not stop the medicine even if you start to feel better. This medicine may affect your blood sugar levels. If you have diabetes, talk to your doctor before changing the dose of your diabetes medicine. Keep all appointments for medical exams and tests while on this medicine. Cautions Tell your doctor and pharmacist if you ever had an allergic reaction to a medicine. Few patients may experience tendon problems. This is more common in patients older than 60. If you notice pain, swelling, or difficulty moving your joints, tell your doctor. This can happen even after stopping the medicine for a few months. Do not use the medication any more than instructed. Your ability to stay alert or to react quickly may be impaired by this medicine. Do not drive or operate machinery until you know how this medicine will affect you. Please check with your doctor before drinking alcohol while on this medicine. Speak with your health care provider before receiving any vaccinations. Please tell your doctor if you have moderate to severe diarrhea while on this medicine. Do not treat the diarrhea with vaxf-lap-gujkkso diarrhea medicine. This medicine passes into breast milk. Ask your doctor before . During , this medicine should be used only when clearly needed. Talk to your doctor about the risks and benefits. Do not share this medicine with anyone who has not been prescribed this medicine. Some patients have serious side effects from this medicine. Ask your pharmacist to show you the information from the Food and Drug Administration (FDA) and discuss it with you. Side Effects The following is a list of some common side effects from this medicine. Please speak with your doctor about what you should do if you experience these or other side effects. agitated feeling or trouble sleeping diarrhea dizziness nausea and vomiting stomach upset or abdominal pain yeast infection of mouth vaginal itching or yeast infection Call your doctor or get medical help right away if you notice any of these more serious side effects: bleeding or bruising chest pain severe, watery or bloody diarrhea fainting numbness or tingling in hands and feet severe or persistent headache fast or irregular heart beats pain in the joints signs of liver damage (such as yellowing of eye or skin, dark urine, or unusual tiredness) mood changes muscle trembling or weakness seizures shortness of breath red, peeling or blistering skin light colored stool urinating less often difficulty or discomfort urinating blood in urine severe or persistent vomiting A few people may have an allergic reaction to this medicine. Symptoms can include difficulty breathing, skin rash, itching, swelling, or severe dizziness. If you notice any of these symptoms, seek medical help quickly. Extra Please speak with your doctor, nurse, or pharmacist if you have any questions about this medicine. [email or web address].Biart/[email or web address]/fdbpem/93 IMPORTANT NOTE: This document tells you briefly how to take your medicine, but it does not tell youall there is to know about it. Your doctor or pharmacist may give you other documents about your medicine. Please talk to them if you have any questions. Always follow their advice. There is a more complete description of this medicine available in [place]. Scan this code on your smartphone or tablet or use the web address below. You can also ask your pharmacist for a printout. If you have any questions, please ask your pharmacist. The display and use of this drug information is subject to Terms of Use. Copyright(c) 2022 WeShow. 7361-2701 [employer]. All rights reserved. This information is not intended as a substitute for professional medical care. Always follow your healthcare professional's instructions. * Ancillary Progress Note - Lorraine Rodrigez RN - 06/19/2023 1:46 PM EST HOME HEALTH/HOSPICE REFERRAL FORM CARE MANAGEMENT [facility] [address] Phone: Fax: Referred By: Lorraine Rodrigez RN Admission Date: 06/15/2023 Discharge Date: Discharge Time: Start Date: 06/22/23 Agency Referred To: PATIENT INFORMATION: Name: Nenita Whitman Address: [address] [place] [phone] : 1955 Phone: There is no home phone number on file. SSN: [id number] County: [place] Caregiver Name: Norris Whitman Relationship: Emergency Contacts: Extended Emergency Contact Information Primary Emergency Contact: Misty WHITMAN Address: [address] [place] [id number] [facility] Mobile Relation: Spouse MEDICAL INFORMATION: Principal Diagnosis: Postoperative wound infection Other Diagnosis: See attached History and Physical Surgery and Dates: Past Surgical History: Procedure Laterality Date ARTHROPLASTY KNEE TOTAL Right 05/11/2023 ROBOTIC ARTHROPLASTY KNEE TOTAL performed by Lindsey Davidson DO at OR [facility] COLONOSCOPY, DIAGNOSTIC (RECTUM) 11/12/2016 adenocarcinoma/[facility] COLONOSCOPY, DIAGNOSTIC (RECTUM) 02/16/2018 serrated adenomatous polyp, repeat 1 yr/[facility] COLONOSCOPY, DIAGNOSTIC (RECTUM) 03/16/2019 benign polyps, repeat 2 yrs/[facility] COLONOSCOPY, DIAGNOSTIC (RECTUM) 04/11/2021 normal, repeat 3 yrs / [facility] DENTAL SURGERY PROCEDURE NEC Dental Surgery Procedure wisdom teeth INFORMATION 04/2022 Cardioversion. INFORMATION Part of colon removed. INFORMATION 11/2021 Heart Cath [place] FLEX SIGMOID DIAGNOSITIC 11/20/2016 SIGMOIDOSCOPY FLEXIBLE DIAGNOSTIC performed by Declan West MD at ENDOSCOPY [facility] REMOVAL OF OVARY(S) Left REMOVAL OF OVARY(S) FOR TUMOR benign REMOVE KNEE JOINT LINING, ANT/POST Right 06/17/2023 ARTHROTOMY KNEE WITH SYNOVECTOMY ARTERIOR OR POSTERIOR performed by Lindsey Davidson DO at OR [facility] REVISE KNEE JOINT REPLACEMENT Right 06/17/2023 TOTAL KNEE REVISION ONE COMPONENT performed by Lindsey Davidson DO at OR [facility] Diet: Adults: As tolerated Allergies: Bee venom and Lisinopril Isolation Type: None Activity Restrictions: Activity as tolerated Isolation For: None HOME CARE ORDERS: (Discipline and Frequency): SN and PT eval and treat Medications Dose, Frequency, & Route: See patient copy of discharge instructions Equipment and Supplies: N/A Ordering Physician and Contact Information: Dr. Clark Davidson Comments: PCP: PCP: COLLETTE RICH III, [place] [address] [phone] D/C Physician: Dr. Clark Davidson Insurance: See attached facesheet. * Ancillary Progress Note - Deidra Echavarria COTA - 06/19/2023 1:15 PM EST PROGRESS NOTE - Occupational Therapy [facility] [address] Name: Nenita Whitman Location: [facility] [id number]/D Date: 06/19/2023 Time: 1:15 PM Nenita Whitman is a 67 year old female. Patient Status: Inpatient Insurance: Payor: [employer] Plan: [employer] CLASSIC [id number] MH-1D Product Type: *No Product type* Patient Seen: at bedside, nursing cleared patient for therapy Patient Identified By: Name, ID Band and Date Diagnosis: infection of R knee (06/19/231314) Status of treatment: Treatment completed (06/19/231314) Orders: OT evaluation and treatment (06/19/231314) Weight Bearing Status: Weight bearing as tolerated (RLE WBAT in knee immobilizer) (06/19/231314) Precautions: Alarms;Falls;Safety (knee immobilizer) (06/19/231314) Total Treatment Time: 25 (06/19/231314) Subjective: "I am doing alright. It's not like this is a new knee. I already had that done." Pain: Patient has complaints of pain. Pain located in R knee. Pt reported pain was a 4/10. Observations Consciousness: Alert (06/19/231314) Orientation: Oriented times 4 (06/19/231314) Cognitive Limitations: (none noted on OT eval) (06/18/23824) Psychosocial: Patient can communicate basic needs;Patient can converse in a social setting (06/19/231314) Visual Deficits: (glasses as needed) (06/18/23824) Sitting posture: Forward head;Rounded shoulders (06/19/231314) Standing posture: Forward head;Rounded shoulders (06/19/231314) Safety awareness: The Patient verbalizes insight of current deficits.;Needs cueing supervision.;ThePatient demonstrates carryover of insight during functional tasks. (06/19/231314) Other Findings Light touch sensation: LUE;RUE;Intact (06/18/23824) Coordination: LUE;RUE;Gross motor;Fine motor;Intact (06/18/23824) Current Functional Status: Activities of Daily Living: Self Care Able to provide self care: Yes (06/18/23824) Feeding: Independent (06/18/23824) Grooming: Supervision (Please comment) (standing at sink) (06/19/231314) Toileting: Supervision (Please comment) (06/19/231314) Dressing Upper Body: Minimal Assistance (06/19/231314) Lower Body: Moderate Assistance (06/19/231314) Bathing Upper Body: Supervision (Please comment) (06/18/23824) Lower Body: Moderate Assistance (06/18/23824) Functional Ambulation Assistive Device: Rolling walker (06/19/231314) Distance in feet:: 170 (06/19/231314) Level of Assistance: Supervision (Please Comment) (06/19/231314) OT Transfers Sit-Stand: Supervision (Please comment) (06/19/231314) Stand-Sit: Supervision (Please comment) (06/19/231314) Toilet: Supervision (Please comment) (using grab bars) (06/19/231314) Balance Sit (Static): Normal (06/18/23824) Sit (Dynamic): Normal (06/18/23824) Stand (Static): Good (06/18/23824) Stand (Dynamic): Good (06/18/23824) Patient Education Education Topic: Role of OT;Plan of care goals (06/18/23824) Review of Precautions: Safety;Fall;Weight Bearing Status (06/18/23824) Method of Education: Verbalized to patient (06/18/23824) Education Provided to: Patient (06/18/23824) Response to Education: Receptive and agreeable to education (06/18/23824) Barriers to learning: Medical status (06/18/23824) Alarm Status Patient positioned in: Chair (06/19/231314) With: Call gregg in reach (06/19/231314) Treatment Provided: Therapeutic Activity: 25 minutes Deficits requiring O.T. treatment needs: ADL/self-care;Balance;Endurance;Fine motor coordination;Functional mobility;IADL;Safety;Upper extremity strength;Upper extremity range of motion;Weakness (06/18/23824) Assessment: Pt was agreeable to participating in treatment. OT AMPAC remained the same at 18. Pt declined bathing at this time due to D/C. She reported she has AE at home and reported no questions and all was in working order. Pt received and was educated on LH sponge. She was educated on dressing affected limb first and pt verbalized understanding. Pt required min A to anya pants to knee level. She was dep for donning socks, per pt report does this at home prior to admission. Pt required min A to anya shoe. Pt required supervision sit <> stand with RW. She required min A to doff gown, anya bra, and CGA to anya button down in standing. 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 Pt donned pants the remainder of the way with supervision. She ambulated in room with supervision and required supervision to manage clothing for toileting and transferring sit <> stand from toilet using grab bars. She urinated and completed perianal hygiene I while seated. She stoodat sink with supervision to complete hand hygiene and oral hygiene. Pt ambulated in hallway with RWslow, stead gait. Pt returned to room and was left sitting in chair, feet on the floor, call gregg in reach, and bedside table in front of her. Plan: Continue treatment as directed by the OT consult. Anticipated Frequency (on eval): 1 to 3 times per week (06/19/231314) Equipment Equipment used in Therapy: Grab bars;Long-Handled Sponge;Rolling walker (06/19/231314) AM-PAC Help From Another Person Eating Meals: None (06/19/231314) Help From Another Person Taking Care of Personal Grooming: A little (06/19/231314) Help From Another Person To Put On/Take Off Upper Body Clothing: A little (06/19/231314) Help From Another Person To Put On/Take Off Lower Body Clothing: A lot (06/19/231314) Help From Another Person Toileting: A little (06/19/231314) Help From Another Person Bathing: A little (06/19/231314) OT AM-PAC Score: 18 (06/19/231314) OT AM-PAC t-Scale Score: 38.66 (06/19/231314) HLM (Highest Level of Mobility) Goal: Level 6 walk 10 steps or more (06/19/23834) * Progress Notes - Post-Op Es - Lindsey Davidson DO - 06/19/2023 1:10 PM EST ORTHOPAEDICS PROGRESS NOTE [facility] [address] Name: Nenita Whitman Location: [facility] [id number]/D Date: 06/19/2023 Time: 1:10 PM SUBJECTIVE: Seen and examined at bedside earlier this morning with wound care nurse. Resting comfortably, pain well controlled. No issues per patient or nursing staff. She denies fevers, chills or night sweats. Patient awaiting incisional wound VAC change. OBJECTIVE: Most Recent Vital Signs: BP: 175 mmHg/54 mmHg (06/19/23726) Pulse: 65 (06/19/23726) Temp: 36.78 C (06/19/23726) Resp: 16 (06/19/23726) SpO2: 92 % (06/19/23726) Vital Signs Last 24 Hours: Systolic BP: Most Recent Systolic BP Av.8 mmHg Min: 143 mmHg Max: 184 mmHg Temperature: Most Recent Temperature Av.1 C Min: 35.72 C Max: 36.78 C Pulse: Pulse Av.8 Min: 52 Max: 67 Respirations: Resp Av Min: 16 Max: 16 SpO2: SpO2 Av.6 % Min: 92 % Max: 98 % Exam: Examination of the right knee reveals incision to be clean, dry and intact without evidence of active drainage or signs of acute infection. Wound well approximated with sutures in place. Distalmotor function and sensation intact. Pulses palpable. No calf tenderness. IMPRESSION and PLAN: Principal Problem: Postoperative wound infection (POA: Unknown) Active Problems: Essential hypertension with goal blood pressure less than 140/90 (POA: Yes) Type 2 diabetes mellitus without complications (HCC) (POA: Yes) Paroxysmal atrial fibrillation (HCC) (POA: Yes) SALVADOR on CPAP (POA: Yes) Body mass index (BMI) of 40.0 to 44.9 in adult (HCC) (POA: Yes) History of total knee arthroplasty, right (POA: Yes) Wound dehiscence, surgical (POA: Unknown) POA = Present On Admission POD#2 status post right knee wound debridement - primary closure with incisional VAC application - case discussed with hospitalist as well as wound care nurse - no need for incisional wound VAC at this time. Wound was sterilely cleansed and a primseal dressing placed. Lower extremity was overwrapped with soft roll and 6 in Vane wraps followed by knee immobilizer. - patient will be anticoagulated with Coumadin; Lovenox bridge not recommended due to previous wound hematoma and skin breakdown - continue to trend ESR and CRP as an outpatient - IV antibiotics may be discontinued with conversion to oral medications per hospitalist recommendations - continue pain control - maintain knee in extension at all times. Knee immobilizer in place. This may be removed for woundassessment/dressing change if necessary. - recommend follow-up in 1 week with Orthopedics - treatment plan discussed with patient. All questions answered * Ancillary Progress Note - Reese Henry PTA - 06/19/2023 10:53 AM EST PROGRESS NOTE - Physical Therapy [facility] [place] [facility] [address] [place] [address] Name: Nenita Whitman Location: [facility] [id number]-[id number]/D Date: 06/19/2023 Time: 2:07 PM Nenita Whitman is a/an 67 year old female. Patient Status: Inpatient Insurance: Payor: [facility] [employer] Plan: [employer] 360 RX MH-1D Product Type: *No Product type* Patient Seen: at bedside, nursing cleared patient for therapy Patient Identified By: Name, ID Band and Date Diagnosis: ambulatory dysfunction secondary to R knee infection (06/18/23914) Status of treatment: Treatment completed (06/19/231052) Orders: PT evaluation and treatment (06/18/23914) Weight Bearing Status: Weight bearing as tolerated (06/19/231052) Precautions: Falls;Safety (knee immobilizer) (06/19/231052) Total Treatment Time--free text: 23 mins (06/19/231052) Subjective: "Im feeling much better. I want to go home" Pain: No complaints of pain Transfers Sit-Stand: Modified Independent (06/19/231052) Stand-Sit: Modified Independent (06/19/231052) W/C-Bed/Mat: Modified Independent (06/19/231052) Ambulation: Distance ambulated (feet): 250 Assistive Device: Rolling walker Assist: Modified Independent Stair Training: Number of stairs: 8 Number of handrails: 2 Level of Assistance: SBA Balance Sit (Static): Normal (06/18/23914) Sit (Dynamic): Good (06/18/23914) Stand (Static): Good (06/18/23914) Stand (Dynamic): Good (06/18/23914) Patient and or Family Goal(s): to get well and to return home Topic of Education: Safety with mobility, Use of assistive device, Stair training, and Fall prevention Method of Education: Demonstrated the above task to pt: verbalized understanding and or agreement of this information and demonstrated the exercise and or task Treatment Provided: Gait Training 23 minutes: gait training with rolling walker stair training Alarm Status Patient positioned in: Chair (06/18/23914) With: Call gregg in reach (06/18/23914) Patient Education Review of Precautions: Safety;Fall (06/19/231052) Education on Immobilizer: Yes (06/18/23914) Safety Awareness: Patient verbalizes insight of current deficits;Patient demonstrates carryover of insight during functional tasks;Patient can communicate basic needs (06/18/23914) Preferred learning method: Combination (06/18/23914) Barriers to learning: Medical Status (06/18/23914) Method of Education: Verbalized to patient (06/18/23914) Assessment: Pt tolerated tx fair with no reported pain or SOB post tx session. Pt did report feeling fatigued post tx session. Pt was able to transfer and ambulate with a RW and Mod I. Pt is slow andsteady with no LOB. Pt was also able to go up/down 8 stairs with B HR and SBA. Pt returned to sitting up in the chair with feet elevated to comfort. No needs post tx session. Pt instructed to not getup without assistance. Deficits requiring P.T. treatment needs: Mobility (06/18/23914) Plan: Continue with current treatment plan established on evaluation. AM PAC Score with Stairs: 23 * Ancillary Progress Note - Deidra Echavarria COTA - 06/19/2023 10:17 AM EST Attempted to see pt at 1017, pt was being seen at this time by NAIDA Sanchez for wound care. Treatment will be attempted at a later time or date dependent on schedule, pt tolerance, and pt medical status. * Care Plan - Dena Edwards RN - 06/19/2023 5:31 AM EST Clinical Goal(s): Pt will sleep 3 or more hours this shift. (06/18/231999) Possible barriers to meeting goal(s)/advancing plan of care: Pt's post-operative status and Dx of post-operative wound infection. Stability of the patient: Moderately stable - low risk of patient condition declining or worsening Summary regarding today's goal(s): Met: Pt was able to sleep for 3 consecutive hours this shift. Recommendations: Continue to encourage frequent and progressive ambulation according to pt's ability. Monitor pt's pain scale assessments and treat per MAR or using non-pharmacologic methods (elevation, ice, repositioning). Encourage good sleep hygiene (tv/lights off, quiet environment, PM oral care). * Care Plan - Litzy Dewey RN - 06/18/2023 5:05 PM EST Clinical Goal(s): Patient will ambulate 25ft x2 this shift. (06/18/23804) Possible barriers to meeting goal(s)/advancing plan of care: s/p knee surgery, knee immobilizer, pain Stability of the patient: Moderately stable - low risk of patient condition declining or worsening Summary regarding today's goal(s): Met: Patient ambulated 25ft x2 this shift. Recommendations: Continue to encourage ambulation in room and hallway. Assess patient for pain prior to mobility. Keep call gregg within reach. * Ancillary Progress Note - Lorraine Rodrigez RN - 06/18/2023 11:26 AM EST CARE MANAGEMENT - ADULT TRANSITION NOTE [facility] [address] Name: Nenita Whitman Location: [facility] 6B-6012/D Date: 06/18/2023 Time: 11:27 AM Risk Stratification Risk Stratification Psycho Social / Medical Concerns Identified: None Identified (06/16/231344) Accessed [employer] to connect patients to social care resources: No (06/16/231344) OBRA or OPTIONS needed for placement: No (06/16/231344) Readmission Risk Score: 14.79 (06/18/23 0800) AM-PAC Score With Stairs : 19 (06/18/23 0915) Caregiver Information Patient Contacts Name Relation Home Work Mobile Misty WHITMAN Spouse [phone] Transition of Care Checklist Transition of Care Checklist (aka Readmission Risk Score) Discharge Disposition: Home w/Home Health (06/18/231124) Home or Home w/Home Health: Moderate (12-17%) (06/18/231124) Narrative: No anticipated DC at this time. CM spoke with [facility] and updated that patient now has wound vac. Awaiting IV antibiotic recommendations. Anticipated Transportation at Discharge: family Patient/Family Expectations: home with home healht Transition Planning Transition Planning Transition Plan/Considerations: Discussed at Interdisciplinary Team / Boost Rounds;Needs identified- Discharge planning services explained to patient family / caregiver - Choices offered (06/18/231124) Transition services explained and patient/family/caregiver agreeable: Home with Home Care () Additional Considerations: Care Management will continue to monitor and assist with discharge planning needs * Progress Notes - Post-Op Es - Balta Hyde PA-C - 06/18/2023 8:50 AM EST ORTHOPA seen and examined at bedside this morning. EDICS PROGRESS NOTE [facility] [address] Name: Nenita Whitman Location: [facility] 6B-6012/D Date: 06/18/2023 Time: 8:51 AM SUBJECTIVE: Patient seen and examined at bedside this morning. Patient resting comfortably in bed eating breakfast. Nenita is a very pleasant 67-year-old female who is postop day 1 status post right knee postoperative wound debridement and wound revision. Today she reports that she is doing well, and that she slept quite well overnight. She reports no significant issues. She denies fevers, chills,or night sweats. She denies chest pain or shortness of breath. She denies calf pain. OBJECTIVE: Most Recent Vital Signs: BP: 158 mmHg/56 mmHg (06/18/23 0745) Pulse: 56 (06/18/23 0745) Temp: 36.28 C (06/18/23744) Resp: 16 (06/18/23744) SpO2: 93 % (06/18/23744) Vital Signs Last 24 Hours: Systolic BP: Most Recent Systolic BP Av.4 mmHg Min: 130 mmHg Max: 180 mmHg Temperature: Most Recent Temperature Av C Min: 35.28 C Max: 36.72 C Pulse: Pulse Av.1 Min: 52 Max: 78 Respirations: Resp Av.1 Min: 16 Max: 22 SpO2: SpO2 Av.4 % Min: 90 % Max: 100 % Exam: Examination of the right knee reveals an intact dressing, Vane wrap, and knee immobilizer. This was maintained for stability. There was no evidence of active bleeding, drainage, or fluid collection. There is no drainage appreciated within the wound VAC reservoir. She is able to demonstrate a straight leg raise. No calf tenderness. She is distally neurovascularly intact. Distal motor functionis intact to include strong great toe and ankle dorsiflexion. LABS: Labs reviewed as indicated below: Hemoglobin 7.9 HCT 25.9 INR 1.2 IMAGING: None IMPRESSION and PLAN: Postop day 1 status post right knee wound debridement and wound revision. Discussed postoperative recommendations with patient to include strict flexion restriction. Patient should maintain knee immobilizer at all times. Weight-bearing as tolerated on the right lower extremity with knee immobilizer intact. PT/OT for ambulatory function, balance, and gait. Lovenox bridged to Coumadin. Pain control per order. Wound care consult. Case and care discussed with Dr. Davidson. * Diagnostic Clarification - Lindsey Davidson DO - 06/18/2023 8:44 AM EST The patient has been diagnosed with anemia of chronic disease. * Care Plan - Dena Edwards RN - 06/18/2023 6:19 AM EST Clinical Goal(s): Pt will report pain <6/10 this shift. (06/17/232037) Possible barriers to meeting goal(s)/advancing plan of care: Pt's post-operative status and Dx of wound infection. Stability of the patient: Moderately stable - low risk of patient condition declining or worsening Summary regarding today's goal(s): Met: Pt reported pain <6/10 this shift. Recommendations: Continue to monitor pt's pain scale assessments and treat per MAR and using non-pharmacologic methods (repositioning, elevation, distractions). Continue to encourage frequent and progressive ambulation. Monitor pt's Wound Vac output. * Pt Handout (on AVS) - Richmond Mahajan RP - 06/17/2023 7:21 PM EST Images from the original note were not included. [id number] Warfarin Oral Tablet Brands: Coumadin, Jantoven Uses This medicine is used for the following purposes: prevent blood clots treatment of blood clots Instructions This medicine may be taken with or without food. This medicine will work best if you take it at about the same time every day. Keep the medicine at room temperature. Avoid heat and direct light. It is important that you keep taking each dose of this medicine on time even if you are feeling well. If you forget to take a dose on time, take it as soon as you remember. If you don't remember until the next day, please call your doctor for instructions. Never take a double dose or skip a dose unless your provider tells you to do so. Tell your doctor and pharmacist about all your medicines. Include prescription and yeit-apl-touwuexskahbmiga, vitamins, and herbal medicines. Cautions Tell your doctor and pharmacist if you ever had an allergic reaction to a medicine. Do not use the medication any more than instructed. Contact your doctor if you notice a change in the amount or darkening of your urine. Tell the doctor or pharmacist if you are , planning to be , or . Women who are or in their childbearing years should not touch or handle this medicine. This medicine can be absorbed through the woman's skin and harm the unborn baby. Call your doctor right away if you notice any unusual bleeding or bruising. Do not share this medicine with anyone who has not been prescribed this medicine. Side Effects The following is a list of some common side effects from this medicine. Please speak with your doctor about what you should do if you experience these or other side effects. liver problems nausea red, burning, or itchy skin stomach upset or abdominal pain Call your doctor or get medical help right away if you notice any of these more serious side effects: loss of balance bleeding or bruising chest pain coughing up blood or vomit that looks like coffee grounds dizziness fainting severe or persistent headache sudden leg pain, swelling, warmth or redness signs of liver damage (such as yellowing of eye or skin, dark urine, or unusual tiredness) pale or blue skin, lips or fingernails bloody or dark, tarry stools light colored stool symptoms of stroke (such as one-sided weakness, slurred speech, confusion) blood in urine A few people may have an allergic reaction to this medicine. Symptoms can include difficulty breathing, skin rash, itching, swelling, or severe dizziness. If you notice any of these symptoms, seek medical help quickly. Extra Please speak with your doctor, nurse, or pharmacist if you have any questions about this medicine. [email or web address] IMPORTANT NOTE: This document tells you briefly how to take your medicine, but it does not tell youall there is to know about it. Your doctor or pharmacist may give you other documents about your medicine. Please talk to them if you have any questions. Always follow their advice. There is a more complete description of this medicine available in Guatemalan. Scan this code on your smartphone or tablet or use the web address below. You can also ask your pharmacist for a printout. If you have any questions, please ask your pharmacist. The display and use of this drug information is subject to Terms of Use. Copyright(c) 2022 [employer]. [employer]. All rights reserved. This information is not intended as a substitute for professional medical care. Always follow your healthcare professional's instructions. * Care Plan - Litzy Overton RN - 06/17/2023 6:54 PM EST Clinical Goal(s): Patient will report pain is controlled post op with or without the use of PRN pain medications. (06/17/23 0700) Possible barriers to meeting goal(s)/advancing plan of care: Recent procedure. Stability of the patient: Moderately stable - low risk of patient condition declining or worsening Summary regarding today's goal(s): Met: Patient reports pain at a 5/10. Recommendations: Continue to offer PRN pain medications. Educate patient on scheduled tylenol and tramadol. Patient refused to take scheduled pain medications, education provided. * Ancillary Progress Note - Lorraine Rodrigez RN - 06/17/2023 3:26 PM EST Spoke with [email or web address] with update given. No anticipated DC at this time. Will continue to monitor for DC needs. * Care Plan - Mylene Cotto RN - 06/17/2023 4:58 AM EST Clinical Goal(s): Pt will rest well between cares (06/16/232055) Possible barriers to meeting goal(s)/advancing plan of care: acuity of illness Stability of the patient: Moderately stable - low risk of patient condition declining or worsening Summary regarding today's goal(s): Met: Pt rested well between cares Recommendations: cluster cares to promote periods of rest * Ancillary Progress Note - Marilyn Frank RN - 06/16/2023 1:50 PM EST CARE MANAGEMENT - ADULT INITIAL SCREENING [facility] [address] Name: Nenita Whitman Location: [facility] 6B-6012/D Date: 06/16/2023 Time: 1:50 PM Discussed patient with the interdisciplinary care team. This Swift Tender performed a chart review and met with patient at bedside to complete admission screen and assessed needs for transition planning. The care giver role and services were explained and emotional support was provided. Chief Complaint: Infection Prior Living Arrangements What was your living situation prior to admission/observation?: Independently;With Spouse ([phone]) Living Quarters: House (06/16/231344) Number of steps to enter living quarters:: 2- living on first floor (06/16/231344) Do you have serious difficulty walking or climbing stairs? (5 years old or older): Yes (uses walker) (06/15/231712) History of falling: No (06/15/232016) Prior Level of Functioning Describe the patient's ability prior to admission/observation to perform ADLs: Performs independently (06/15/231712) Patient uses assistive device: Yes (06/16/231344) If yes, choose:: Walker (06/16/231344) Caregiver Information Patient Contacts Name Relation Home Work Mobile Misty WHITMAN Spouse [phone] Risk Stratification/Psychosocial/Care Gaps Risk Stratification Psycho Social / Medical Concerns Identified: None Identified (06/16/231344) Accessed Proenza Schou[employer] to connect patients to social care resources: No (06/16/231344) OBRA or OPTIONS needed for placement: No (06/16/231344) Readmission Risk Score: 14.42 (06/16/23 1200) AM-PAC Score With Stairs : 18 (06/15/23 1702) Prior to Admission Services Services Prior to Admission NAILER OPERATOR Services (Services received within the last 30 days with exception, Psych within last two years): N/A (06/16/231344) NAILER OPERATOR Transportation (Services received within the last 30 days): Family/Friends Personal Vehicle (06/16/231344) Outpatient Swift Tender: No care steamfitter supervisor to display Patient/Family Expectations: Patient lives with spouse who can help with care. Patient had [facility] in the past and would like [facility]. Spoke with Dyana from [facility]- referral made. Patient has a walker at home and is staying on the first floor of her two story home. Patient has been going to [facility] for [facility] rehab. Spouse will be able to transport home. For further screening information, please refer to the Care Management flow document. * Ancillary Progress Note - Tip Aaron, PT - 06/16/2023 11:18 AM EST Confirmed wHimanshu Hyde PA-C via [employer] text message that per initial PT and OT consult orders, PT and OT are to be on hold until after operative intervention performed. * Ancillary Progress Note - Gisel Reina OT - 06/16/2023 9:39 AM EST OT consult noted and chart reviewed. The pt is pending right knee wound debridement vs arthroplastyrevision. OT met with pt. The pt denied concerns at this time. She was in agreement to reschedule OT eval until after operative intervention. Pt's care nurse Delio Overton RN, aware and in agreement. * Care Plan - Mylene Cotto RN - 06/16/2023 5:04 AM EST Clinical Goal(s): Pt will report adequate pain control this shift (06/15/232015) Possible barriers to meeting goal(s)/advancing plan of care: acuity of illness Stability of the patient: Moderately stable - low risk of patient condition declining or worsening Summary regarding today's goal(s): Met: Pt reported adequate pain control this shift Recommendations: monitor pain level and administer analgesia per order * Medical Necessity - Rianna Woodall RN - 06/15/2023 4:31 PM EST AdmissionCare Guideline: Musculoskeletal Disease, Inpatient Based on the indications selected for the patient, the bed status of Admit to Inpatient was determined to be MET The following indications were selected as present at the time of evaluation of the patient: Bone, joint, muscle, or orthopedic device infection (eg, periprosthetic infection) that requires inpatient care, as indicated by 1 or more of the following: - - IV antibiotics needed that cannot be initiated in other than inpatient setting (eg, patient too unstable or home infusion not feasible) Additional Information: Pt. had a knee replacement surgery 4 weeks ago States that over the past week it is had increased redness, drainage and an opening at the incision The skin overlying the incision site has surrounding erythema on the right knee. There is some serous drainage coming from the wound. It is warm to touch. She is able to flex and extend the knee rather well without much discomfort. There is a ijlc-gt-eqahnsvz knee effusion noted IV Vanco IVF AdmissionCare documentation entered by: Rianna Woodall [facility] [employer]ang, 27th edition, Copyright 2022 [facility] [employer] All Rights Reserved. [id number]:31:53-05:00 Solely for purpose of utilization review and payment; not a diagnostic tool * ED Equipment Records Supervisor Note - Audrey Downey RN - 06/15/2023 2:50 PM EST Pt comes in for concerns of a possible infection to her R knee. Was seen by ortho for this earlier today and was advised to come into the ED. States she had surgery on this knee approximately 4 weeksago. Reports this knee had initially "opened up" a small amount. States over the last couple days the area has become more reddened, swollen and having purulent drainage. Denies any recent falls or injury. Denies any fevers or chills. Has been ambulating on this leg. Area is red and warm to the touch. Does have purulent drainage coming from the opening on her knee. at bedside. Call gregg within reach. documented in this encounter Plan of Treatment Upcoming Encounters Date Type Department Care Team (Late st Contact Info) Description 06/22/2023 6:45 AM EST Anticoagulation Pharmacy Call Center [facility] [address] [facility] [place] [address] [facility] [address] [facility] [place] [address] 06/29/2023 11:00 AM EST [facility] [address] [facility] [place] [phone] Gambino Wilfredo Arthur [address] [facility] [place] [address] 06/30/2023 6:15 AM EST Anticoagulation Pharmacy Call Center WB [address] [facility] [place] [address] [facility] 58 [address] [facility] [place] [address] 07/02/2023 11:00 AM EST Office Visit Orthopaedics [facility] [address] [facility] [place] [address] Balta Hyde PA-C [address] [place] [address] 09/30/2023 9:20 AM EDT Office Visit Family Practice [facility] [place] [address] [address] Collette Rich III, MD 200 [facility] [place] [address] 10/01/2023 3:15 PM EDT Office Visit Hematology/Oncology [facility] [place] [address] [place] [address] [address] Efraín Leone MD [address] [place] [address] 11/12/2023 11:20 AM EDT Office Visit Dermatology [facility] [address] [place] [address] [address] Margarita Figueredo PA-C [address] [place] [place] [phone] 02/25/2024 9:30 AM EDT Imaging Radiology [address] [facility] [place] [address] 04/21/2024 10:30 AM EDT Office Visit Sleep Disorders [facility] [address] [facility] [place] [phone] Viktoriya White CRNP 132 [facility] [place] [address] Pending Results Name Type Priority Associated Diagnoses Date /Time CULTURE, BLOOD Lab Routine 06/15/2023 3:12 PM EST CULTURE, BLOOD Lab Routine 06/15/2023 2:46 PM EST CULTURE, SYNOVIAL FLUID, AEROBIC AND ANAEROBIC Lab STAT 06/15/2023 4:23 PM EST Scheduled Orders Name Type Priority Associated Diagnoses Orde r Schedule CELL COUNT WITH DIFFERENTIAL, BODY FLUID Lab STAT One Stanley e for 1 Occurrences starting 06/15/2023 until 06/15/2023 CELL COUNT, BODY FLUID Lab STAT On ce for 1 Occurrences starting 06/15/2023 until 06/15/2023 MANUAL DIFFERENTIAL, BODY FLUID Lab STAT Once for 1 Occur rences starting 06/15/2023 until 06/15/2023 CBC WITH WBC DIFFERENTIAL Lab Routine Postoperative wound infection Expected: 06/22/2023, Expires: 06/19/2024 PT INR Lab Routine Postoperative wound infection Expected: 06/22/2023, Expires: 06/19/2024 CRP (INFLAMMATORY MARKER) Lab Routine Postoperative wound infection Expected: 06/22/2023, Expires: 06/19/2024 Scheduled Procedures Name Priority Associated Diagnoses Date/Ti me COLONOSCOPY FLEXIBLE PROXIMA L DIAGNOSTIC Recall History of colonic polyps Scheduled Referrals Name Type Priority Associated Diagnoses Orde r Schedule ANTI-COAGULATION REFERRAL OP Referral Within 3 days (urgent) Paroxysmal atrial fibrillation (HCC) Ordered: 06/19/2023 HOME HEALTH REFERRAL OP Referral Within 3 days (urgent) Postoperative wound infection Ordered: 06/19/2023 Health Maintenance Due Date Last [...] this encounter Medical Devices Implanted Type Area Blueprint Developer Device Identifier Shelf Expiration Date Model / Serial / Lot Knee X3 Ins Pos Cs Sz4 11 - Sn/A - [id number] Implanted:Qty: 1 on 05/11/2023 by Lindsey Davidson DO at OR [facility] Right: Knee FRANNIE : ORTHOPAEDICS 10/16/2027 [id number] / N/A / [id number] documented as of this encounter Procedures Procedure Name Priority Date/Time Associated Diagnosis Comments GLUCOSE METER, POINT OF CARE AILYN 06/19/2023 11:33 AM EST GLUCOSE METER, POINT OF CARE AILYN 06/19/2023 7:28 AM EST DIFFERENTIAL, AUTOMATED Routine 06/19/2023 4:18 AM EST CRP (INFLAMMATORY MARKER) Routine 06/19/2023 4:18 AM EST COMPREHENSIVE METABOLIC PANEL Routine 06/19/2023 4:18 AM EST CBC Routine 06/19/2023 4:18 AM EST PT INR Routine 06/19/2023 4:18 AM EST ERYTHROCYTE SEDIMENTATION RATE (ESR) Routine 06/19/2023 4:18 AM EST CBC Routine 06/19/2023 4:18 AM EST GLUCOSE METER, POINT OF CARE AILYN 06/18/2023 9:23 PM EST GLUCOSE METER, POINT OF CARE AILYN 06/18/2023 4:33 PM EST GLUCOSE METER, POINT OF CARE AILYN 06/18/2023 11:58 AM EST GLUCOSE METER, POINT OF CARE AILYN 06/18/2023 7:49 AM EST DIFFERENTIAL, AUTOMATED Routine 06/18/2023 5:41 AM EST CBC Routine 06/18/2023 5:41 AM EST CBC Routine 06/18/2023 5:41 AM EST COMPREHENSIVE METABOLIC PANEL Routine 06/18/2023 4:28 AM EST PT INR Routine 06/18/2023 4:28 AM EST GLUCOSE METER, POINT OF CARE AILYN 06/17/2023 9:31 PM EST GLUCOSE METER, POINT OF CARE AILYN 06/17/2023 5:14 PM EST REVISE KNEE JOINT REPLACEMENT 06/17/2023 2:45 PM EST Infection of right knee (HCC) REMOVE KNEE JOINT LINING, ANT/POST 06/17/2023 2:45 PM EST Infection of right knee (HCC) GLUCOSE METER, POINT OF CARE AILYN 06/17/2023 11:38 AM EST GLUCOSE METER, POINT OF CARE AILYN 06/17/2023 7:19 AM EST PT INR Routine 06/17/2023 7:09 AM EST VANCOMYCIN RANDOM Timed 06/17/2023 4:5 2 AM EST COMPREHENSIVE METABOLIC PANEL Routine 06/17/2023 4:52 AM EST CBC Routine 06/17/2023 4:52 AM EST GLUCOSE METER, POINT OF CARE AILYN 06/16/2023 9:36 PM EST PT INR Routine 06/16/2023 5:46 PM EST GLUCOSE METER, POINT OF CARE AILYN 06/16/2023 4:37 PM EST GLUCOSE METER, POINT OF CARE AILYN 06/16/2023 11:18 AM EST GLUCOSE METER, POINT OF CARE AILYN 06/16/2023 7:20 AM EST MRI KNEE RIGHT WO CONTRAST Routine 06/16/2023 6:49 AM EST COMPREHENSIVE METABOLIC PANEL Routine 06/16/2023 4:23 AM EST PT INR Routine 06/16/2023 4:23 AM EST CBC Routine 06/16/2023 4:23 AM EST GLUCOSE METER, POINT OF CARE AILYN 06/15/2023 9:15 PM EST GLUCOSE METER, POINT OF CARE AILYN 06/15/2023 6:00 PM EST CULTURE, SYNOVIAL FLUID, AEROBIC AND ANAEROBIC STAT 06/15/2023 4:23 PM EST CULTURE, WOUND, DEEP, AEROBIC AND ANAEROBIC Routine 06/15/2023 4:20 PM EST CULTURE, BLOOD Routine 06/15/2023 3:12 PM EST XR KNEE 4 OR MORE VIEWS STAT 06/15/2023 3:06 PM EST DIFFERENTIAL, AUTOMATED STAT 06/15/2023 2:46 PM EST CRP (INFLAMMATORY MARKER) STAT 06/15/2023 2:46 PM EST COMPREHENSIVE METABOLIC PANEL STAT 06/15/2023 2:46 PM EST CBC STAT 06/15/2023 2:46 PM EST PT INR STAT 06/15/2023 2:46 PM EST CULTURE, BLOOD Routine 06/15/2023 2:46 PM EST ERYTHROCYTE SEDIMENTATION RATE (ESR) Add-on 06/15/2023 2:46 PM EST CBC STAT 06/15/2023 2:46 PM EST documented in this encounter Results * GLUCOSE METER, POINT OF CARE (06/19/2023 11:33 AM EST) Glucose Meter 100 70 - 120 mg/dL 06/19/2023 11:51 AM EST [facility] Blood Whole blood specimen / Unknown 06/19/2023 11:33 AM EST 06/19/2023 11:51 AM EST Lindsey Davidson DO LAB POINT OF CARE TEST DOCKED DEVICE UNSOLICITED RESULTS Performing Organization Address [facility] Co de Phone Number [facility] [address] [place] [address] * GLUCOSE METER, POINT OF CARE (06/19/2023 7:28 AM EST) Glucose Meter 119 70 - 120 mg/dL 06/19/2023 7:51 AM EST [facility] Blood Whole blood specimen / Unknown 06/19/2023 7:28 AM EST 06/19/2023 7:51 AM EST Lindsey Davidson DO LAB POINT OF CARE TEST DOCKED DEVICE UNSOLICITED RESULTS Performing Organization Address [facility] Co de Phone Number [facility] [address] [place] [address] * (ABNORMAL) ERYTHROCYTE SEDIMENTATION RATE (ESR) (06/19/2023 4:18 AM EST) ESR 37(H) <30 mm/hour 06/20/2023 12:00 AM EST LABORATORY [facility] Blood Venous blood specimen / Unknown Venipuncture / Unknown 06/19/2023 4:18 AM EST 06/19/2023 5:02 AM EST Lindsey Davidson DO LAB BLOOD OR DERABLES Performing Organization Address City/[facility]/ZIP Co de Phone Number LABORATORY [facility] [address] [place] [address] * (ABNORMAL) CRP (INFLAMMATORY MARKER) (06/19/2023 4:18 AM EST) Pathologist [facility] CRP (Inflammatory Marker) 24(H) <=5 mg/L 06/19/2023 12:33 PM EST LABORATORY [facility] Blood Venous blood specimen / Unknown Venipuncture / Unknown 06/19/2023 4:18 AM EST 06/19/2023 5:02 AM EST Lindsey Davidson DO LAB BLOOD [place] [address] * (ABNORMAL) DIFFERENTIAL, AUTOMATED (06/19/2023 4:18 AM EST) Pathologist [facility] WBC 5.20 4.00 - 10.80 K/uL 06/19/2023 5:28 AM EST LABORATORY GL Neutrophils % 67.3 40.0 - 75.0 % 06/19/2023 5:28 AM EST LABORATORY GL Lymphocytes % 16.3(L) 18.0 - 42.0 % 06/19/2023 5:28 AM EST LABORATORY [facility] Monocytes % 10.2 1.0 - 11.0 % 06/19/2023 5:28 AM EST LABORATORY GL Eosinophils % 5.6 0.0 - 6.0 % 06/19/2023 5:28 AM EST LABORATORY [facility] Basophils % 0.4 0.0 - 2.0 % 06/19/2023 5:28 AM EST LABORATORY GL Immature Granulocytes % 0.2 0.0 - 2.0 % 06/19/2023 5:28 AM EST LABORATORY [facility] Absolute Neutrophils 3.50 1.80 - 7.70 K/uL 06/19/2023 5:28 AM EST LABORATORY GL Absolute Lymphocytes 0.85(L) 1.00 - 4.80 K/ul 06/19/2023 5:28 AM EST LABORATORY GL Absolute Monocytes 0.53 0.00 - 1.10 K/uL 06/19/2023 5:28 AM EST LABORATORY [facility] Absolute Eosinophils 0.29 0.00 - 0.70 K/uL 06/19/2023 5:28 AM EST LABORATORY [facility] Absolute Basophils 0.02 0.00 - 0.20 K/uL 06/19/2023 5:28 AM EST LABORATORY GL Absolute Immature Granulocytes 0.01 0.00 - 0.20 K/uL 06/19/2023 5:28 AM EST LABORATORY [facility] Blood Venous blood specimen / Unknown Venipuncture / Unknown 06/19/2023 4:18 AM EST 06/19/2023 5:02 AM EST Lindsey Davidson DO LAB BLOOD OR DERABLES LABORATORY [facility] [address] [place] [address] * (ABNORMAL) CBC (06/19/2023 4:18 AM EST) WBC 5.20 4.00 - 10.80 K/uL 06/19/2023 5:28 AM EST LABORATORY [facility] RBC 2.60 3.85 - 5.15 M/uL 06/19/2023 5:28 AM EST LABORATORY [facility] HGB 7.7(L) 12.0 - 15.3 g/dL 06/19/2023 5:28 AM EST LABORATORY [facility] HCT 24.6(L) 36.0 - 45.2 % 06/19/2023 5:28 AM EST LABORATORY [facility] MCV 94.6 81.5 - 97.5 fL 06/19/2023 5:28 AM EST LABORATORY [facility] MCH 29.6 27.0 - 34.0 pg 06/19/2023 5:28 AM EST LABORATORY [facility] MCHC 31.3 32.0 - 36.0 g/dL 06/19/2023 5:28 AM EST LABORATORY [facility] RDW 14.7 11.5 - 15.5 % 06/19/2023 5:28 AM EST LABORATORY [facility] PLT 287 140 - 400 K/uL 06/19/2023 5:28 AM EST LABORATORY [facility] MPV 9.8 6.6 - 11.1 fL 06/19/2023 5:28 AM EST LABORATORY [facility] nRBCs 0 <=0 /100 WBCs 06/19/2023 5:28 AM EST LABORATORY [facility] Blood Venous blood specimen / Unknown Venipuncture / Unknown 06/19/2023 4:18 AM EST 06/19/2023 5:02 AM EST Lindsey Davidson DO LAB BLOOD OR DERABLES Performing Organization Address City/[facility]/ZIP Co de Phone Number LABORATORY [facility] [address] [place], [place] [phone] * PT INR (06/19/2023 4:18 AM EST) Prothrombin Time 14.5 11.6 - 15.2 seconds 06/19/2023 5:52 AM EST LABORATORY GL INR 1.1 0.8 - 1.2 06/19/2023 5:52 AM EST LABORATORY GL Blood Venous blood specimen / Unknown Venipuncture / Unknown 06/19/2023 4:18 AM EST 06/19/2023 5:02 AM EST Narrative LABORATORY GL - 06/19/2023 5:52 AM EST Warfarin Therapy INR: 2.0-3.0 conventional anticoagulation INR: 2.5-3.5 high intensity anticoagulation Lindsey Davidson DO LAB BLOOD OR DERABLES Performing Organization Address City/[facility]/ZIP Co de Phone Number LABORATORY [address] [address] * (ABNORMAL) COMPREHENSIVE METABOLIC PANEL (06/19/2023 4:18 AM EST) BUN 12 6 - 20 mg/dL 06/19/2023 5:31 AM EST LABORATORY GL Creatinine 0.8 0.5 - 1.0 mg/dL 06/19/2023 5:31 AM EST LABORATORY [facility] Estimated Glomerular Filtration Rate 77 >=60 mL/min 06/19/2023 5:31 AM EST LABORATORY [facility] Comment:eGFR is calculated b ased on the CKD-EPI 2020 equation Sodium 138 135 - 146 mmol/L 06/19/2023 5:31 AM EST LABORATORY [facility] Potassium 4.2 3.5 - 5.1 mmol/L 06/19/2023 5:31 AM EST LABORATORY [facility] Chloride 103 98 - 107 mmol/L 06/19/2023 5:31 AM EST LABORATORY [facility] CO2 24 22 - 32 mmol/L 06/19/2023 5:31 AM EST LABORATORY [facility] Anion Gap 11 7 - 15 mmol/L 06/19/2023 5:31 AM EST LABORATORY [facility] Glucose 123(H) 70 - 120 mg/dL 06/19/2023 5:31 AM EST LABORATORY [facility] Albumin 3.4(L) 3.8 - 5.0 g/dL 06/19/2023 5:31 AM EST LABORATORY [facility] AST 17 10 - 35 U/L 06/19/2023 5:31 AM EST LABORATORY [facility] Alkaline Phosphatase 97 35 - 130 U/L 06/19/2023 5:31 AM EST LABORATORY [facility] Bilirubin, Total 0.3 <=1.2 mg/dL 06/19/2023 5:31 AM EST LABORATORY [facility] Calcium 9.0 8.4 - 10.2 mg/dL 06/19/2023 5:31 AM EST LABORATORY [facility] Protein 6.6 6.0 - 8.3 g/dL 06/19/2023 5:31 AM EST LABORATORY [facility] ALT 12 10 - 35 U/L 06/19/2023 5:31 AM EST LABORATORY [facility] Blood Venous blood specimen / Unknown Venipuncture / Unknown 06/19/2023 4:18 AM EST 06/19/2023 5:02 AM EST Vaishali Chan PA-C LAB BLOOD ORDER [facility] Performing Organization Address City/[facility]/ZIP Co de Phone Number LABORATORY [address] [phone] * (ABNORMAL) GLUCOSE METER, POINT OF CARE (06/18/2023 9:23 PM EST) [facility] Glucose Meter 126(H) 70 - 120 mg/dL 06/18/2023 11:48 PM EST [facility] Blood Whole blood specimen / Unknown 06/18/2023 9:23 PM EST 06/18/2023 11:48 PM EST Lindsey Davidson DO LAB POINT OF CARE TEST DOCKED DEVICE UNSOLICITED RESULTS [facility] [address] [place] [address] * (ABNORMAL) GLUCOSE METER, POINT OF CARE (06/18/2023 4:33 PM EST) Glucose Meter 123(H) 70 - 120 mg/dL 06/18/2023 4:43 PM EST [facility] Blood Whole blood specimen / Unknown 06/18/2023 4:33 PM EST 06/18/2023 4:43 PM EST Lindsey Davidson DO LAB POINT OF CARE TEST DOCKED DEVICE UNSOLICITED RESULTS Performing Organization Address [facility] Phone Number [facility] [address] [place] [address] * GLUCOSE METER, POINT OF CARE (06/18/2023 11:58 AM EST) Glucose Meter 102 70 - 120 mg/dL 06/18/2023 12:17 PM EST [facility] Blood Whole blood specimen / Unknown 06/18/2023 11:58 AM EST 06/18/2023 12:17 PM EST Lindsey Davidson DO LAB POINT OF CARE TEST DOCKED DEVICE UNSOLICITED RESULTS Performing Organization Address [facility] de Phone Number [facility] [address] [place] [address] * GLUCOSE METER, POINT OF CARE (06/18/2023 7:49 AM EST) Glucose Meter 108 70 - 120 mg/dL 06/18/2023 7:59 AM EST [facility] Blood Whole blood specimen / Unknown 06/18/2023 7:49 AM EST 06/18/2023 7:59 AM EST Lindsey Davidson DO LAB POINT OF CARE TEST DOCKED DEVICE UNSOLICITED RESULTS Performing Organization Address [facility] de Phone Number [facility] [address] [facility] [place] [address] * (ABNORMAL) DIFFERENTIAL, AUTOMATED (06/18/2023 5:41 AM EST) Pathologist [facility] WBC 7.59 4.00 - 10.80 K/uL 06/18/2023 5:54 AM EST LABORATORY GL Neutrophils % 71.6 40.0 - 75.0 % 06/18/2023 5:54 AM EST LABORATORY GL Lymphocytes % 14.9(L) 18.0 - 42.0 % 06/18/2023 5:54 AM EST LABORATORY [facility] Monocytes % 9.2 1.0 - 11.0 % 06/18/2023 5:54 AM EST LABORATORY [facility] Eosinophils % 3.6 0.0 - 6.0 % 06/18/2023 5:54 AM EST LABORATORY GL Basophils % 0.4 0.0 - 2.0 % 06/18/2023 5:54 AM EST LABORATORY GL Immature Granulocytes % 0.3 0.0 - 2.0 % 06/18/2023 5:54 AM EST LABORATORY GL Absolute Neutrophils 5.44 1.80 - 7.70 K/uL 06/18/2023 5:54 AM EST LABORATORY GL Absolute Lymphocytes 1.13 1.00 - 4.80 K/ul 06/18/2023 5:54 AM EST LABORATORY GL Absolute Monocytes 0.70 0.00 - 1.10 K/uL 06/18/2023 5:54 AM EST LABORATORY GL Absolute Eosinophils 0.27 0.00 - 0.70 K/uL 06/18/2023 5:54 AM EST LABORATORY GL Absolute Basophils 0.03 0.00 - 0.20 K/uL 06/18/2023 5:54 AM EST LABORATORY GL Absolute Immature Granulocytes 0.02 0.00 - 0.20 K/uL 06/18/2023 5:54 AM EST LABORATORY [facility] Blood Venous blood specimen / Unknown Venipuncture / Unknown 06/18/2023 5:41 AM EST 06/18/2023 5:45 AM EST Lindsey Davidson DO LAB BLOOD OR DERABLES [facility] [address] [place] [address] * (ABNORMAL) CBC (06/18/2023 5:41 AM EST) WBC 7.59 4.00 - 10.80 K/uL 06/18/2023 5:54 AM EST LABORATORY [facility] RBC 2.75 3.85 - 5.15 M/uL 06/18/2023 5:54 AM EST LABORATORY [facility] HGB 7.9(L) 12.0 - 15.3 g/dL 06/18/2023 5:54 AM EST LABORATORY [facility] HCT 25.9(L) 36.0 - 45.2 % 06/18/2023 5:54 AM EST LABORATORY [facility] MCV 94.2 81.5 - 97.5 fL 06/18/2023 5:54 AM EST LABORATORY [facility] MCH 28.7 27.0 - 34.0 pg 06/18/2023 5:54 AM EST LABORATORY [facility] MCHC 30.5 32.0 - 36.0 g/dL 06/18/2023 5:54 AM EST LABORATORY [facility] RDW 14.6 11.5 - 15.5 % 06/18/2023 5:54 AM EST LABORATORY [facility] PLT 305 140 - 400 K/uL 06/18/2023 5:54 AM EST LABORATORY [facility] MPV 9.0 6.6 - 11.1 fL 06/18/2023 5:54 AM EST LABORATORY [facility] nRBCs 0 <=0 /100 WBCs 06/18/2023 5:54 AM EST LABORATORY [facility] Blood Venous blood specimen / Unknown Venipuncture / Unknown 06/18/2023 5:41 AM EST 06/18/2023 5:45 AM EST Lindsey Davidson DO LAB BLOOD OR DERABLES LABORATORY [facility] [address] [place] [address] * PT INR (06/18/2023 4:28 AM EST) Prothrombin Time 15.2 11.6 - 15.2 seconds 06/18/2023 4:49 AM EST LABORATORY [facility] INR 1.2 0.8 - 1.2 06/18/2023 4:49 AM EST LABORATORY [facility] Blood Venous blood specimen / Unknown Venipuncture / Unknown 06/18/2023 4:28 AM EST 06/18/2023 4:32 AM EST [facility] - 06/18/2023 4:49 AM EST Warfarin Therapy INR: 2.0-3.0 conventional anticoagulation INR: 2.5-3.5 high intensity anticoagulation Lindsey Davidson DO LAB BLOOD OR DERABLES LABORATORY GL [address] [place] [address] * (ABNORMAL) COMPREHENSIVE METABOLIC PANEL (06/18/2023 4:28 AM EST) BUN 10 6 - 20 mg/dL 06/18/2023 5:08 AM EST LABORATORY [facility] Creatinine 0.7 0.5 - 1.0 mg/dL 06/18/2023 5:08 AM EST LABORATORY [facility] Estimated Glomerular Filtration Rate 88 >=60 mL/min 06/18/2023 5:08 AM EST LABORATORY [facility] Comment:eGFR is calculated b ased on the CKD-EPI 2020 equation Sodium 138 135 - 146 mmol/L 06/18/2023 5:08 AM EST LABORATORY [facility] Potassium 4.5 3.5 - 5.1 mmol/L 06/18/2023 5:08 AM EST LABORATORY [facility] Chloride 102 98 - 107 mmol/L 06/18/2023 5:08 AM EST LABORATORY [facility] CO2 24 22 - 32 mmol/L 06/18/2023 5:08 AM EST LABORATORY [facility] Anion Gap 12 7 - 15 mmol/L 06/18/2023 5:08 AM EST LABORATORY [facility] Glucose 102 70 - 120 mg/dL 06/18/2023 5:08 AM EST LABORATORY [facility] Albumin 3.3(L) 3.8 - 5.0 g/dL 06/18/2023 5:08 AM EST LABORATORY [facility] AST 35 10 - 35 U/L 06/18/2023 5:08 AM EST LABORATORY [facility] Comment:Result may be falsel y elevated due to hemolysis. Alkaline Phosphatase 96 35 - 130 U/L 06/18/2023 5:08 AM EST LABORATORY [facility] Bilirubin, Total 0.4 <=1.2 mg/dL 06/18/2023 5:08 AM EST LABORATORY [facility] Calcium 9.1 8.4 - 10.2 mg/dL 06/18/2023 5:08 AM EST LABORATORY [facility] Protein 6.6 6.0 - 8.3 g/dL 06/18/2023 5:08 AM EST LABORATORY [facility] ALT 14 10 - 35 U/L 06/18/2023 5:08 AM EST LABORATORY [facility] Blood Venous blood specimen / Unknown Venipuncture / Unknown 06/18/2023 4:28 AM EST 06/18/2023 4:32 AM EST Vaishali Chan PA-C LAB BLOOD ORDER [facility] LABORATORY [facility] [address] [place] [address] * (ABNORMAL) GLUCOSE METER, POINT OF CARE (06/17/2023 9:31 PM EST) Glucose Meter 154(H) 70 - 120 mg/dL 06/17/2023 9:53 PM EST [facility] Blood Whole blood specimen / Unknown 06/17/2023 9:31 PM EST 06/17/2023 9:53 PM EST Lindsey Davidson DO LAB POINT OF CARE TEST DOCKED DEVICE UNSOLICITED RESULTS [facility] [address] [place] [id number] * (ABNORMAL) GLUCOSE METER, POINT OF CARE (06/17/2023 5:14 PM EST) Glucose Meter 135(H) 70 - 120 mg/dL 06/17/2023 5:16 PM EST [facility] Blood Whole blood specimen / Unknown 06/17/2023 5:14 PM EST 06/17/2023 5:16 PM EST Lindsey Antonio Sobolewski DO LAB POINT OF CARE TEST DOCKED DEVICE UNSOLICITED RESULTS Performing Organization Address [facility] Co de Phone Number [facility] [address] [place] [address] * GLUCOSE METER, POINT OF CARE (06/17/2023 11:38 AM EST) Glucose Meter 111 70 - 120 mg/dL 06/17/2023 1:34 PM EST [facility] Blood Whole blood specimen / Unknown 06/17/2023 11:38 AM EST 06/17/2023 1:34 PM EST Lindsey Davidosn DO LAB POINT OF CARE TEST DOCKED DEVICE UNSOLICITED RESULTS Performing Organization Address [facility] de Phone Number [facility] [address] [place] [address] * (ABNORMAL) GLUCOSE METER, POINT OF CARE (06/17/2023 7:19 AM EST) Glucose Meter 128(H) 70 - 120 mg/dL 06/17/2023 8:04 AM EST [facility] Blood Whole blood specimen / Unknown 06/17/2023 7:19 AM EST 06/17/2023 8:04 AM EST Lindsey Davidson DO LAB POINT OF CARE TEST DOCKED DEVICE UNSOLICITED RESULTS Performing Organization Address [facility] de Phone Number [facility] [address] [place] [address] * (ABNORMAL) PT INR (06/17/2023 7:09 AM EST) Prothrombin Time 17.6(H) 11.6 - 15.2 seconds 06/17/2023 7:32 AM EST LABORATORY [facility] INR 1.4(H) 0.8 - 1.2 06/17/2023 7:32 AM EST LABORATORY [facility] Blood Venous blood specimen / Unknown Venipuncture / Unknown 06/17/2023 7:09 AM EST 06/17/2023 7:16 AM EST Narrative LABORATORY [facility] - 06/17/2023 7:32 AM EST Warfarin Therapy INR: 2.0-3.0 conventional anticoagulation INR: 2.5-3.5 high intensity anticoagulation Lindsey Davidson DO LAB BLOOD OR DERABLES Performing Organization Address City/[facility]/ZIP Co de Phone Number LABORATORY [address] [address] * (ABNORMAL) CBC (06/17/2023 4:52 AM EST) [facility] WBC 5.01 4.00 - 10.80 K/uL 06/17/2023 5:13 AM EST LABORATORY GL RBC 3.18 3.85 - 5.15 M/uL 06/17/2023 5:13 AM EST LABORATORY GL HGB 9.1(L) 12.0 - 15.3 g/dL 06/17/2023 5:13 AM EST LABORATORY GL HCT 29.6(L) 36.0 - 45.2 % 06/17/2023 5:13 AM EST LABORATORY [facility] MCV 93.1 81.5 - 97.5 fL 06/17/2023 5:13 AM EST LABORATORY GL MCH 28.6 27.0 - 34.0 pg 06/17/2023 5:13 AM EST LABORATORY [facility] MCHC 30.7 32.0 - 36.0 g/dL 06/17/2023 5:13 AM EST LABORATORY GL RDW 14.5 11.5 - 15.5 % 06/17/2023 5:13 AM EST LABORATORY [facility] PLT 320 140 - 400 K/uL 06/17/2023 5:13 AM EST LABORATORY GL MPV 9.3 6.6 - 11.1 fL 06/17/2023 5:13 AM EST LABORATORY GL nRBCs 0 <=0 /100 WBCs 06/17/2023 5:13 AM EST LABORATORY GL Blood Venous blood specimen / Unknown Venipuncture / Unknown 06/17/2023 4:52 AM EST 06/17/2023 5:09 AM EST Vaishali Chan PA-C LAB BLOOD ORDER [facility] [address] [facility] [place] [address] * (ABNORMAL) COMPREHENSIVE METABOLIC PANEL (06/17/2023 4:52 AM EST) BUN 13 6 - 20 mg/dL 06/17/2023 5:46 AM EST LABORATORY [facility] Creatinine 0.8 0.5 - 1.0 mg/dL 06/17/2023 5:46 AM EST LABORATORY [facility] Estimated Glomerular Filtration Rate 77 >=60 mL/min 06/17/2023 5:46 AM EST LABORATORY [facility] Comment:eGFR is calculated b ased on the CKD-EPI 2020 equation Sodium 138 135 - 146 mmol/L 06/17/2023 5:46 AM EST LABORATORY [facility] Potassium 4.1 3.5 - 5.1 mmol/L 06/17/2023 5:46 AM EST LABORATORY [facility] Chloride 102 98 - 107 mmol/L 06/17/2023 5:46 AM EST LABORATORY [facility] CO2 27 22 - 32 mmol/L 06/17/2023 5:46 AM EST LABORATORY [facility] Anion Gap 9 7 - 15 mmol/L 06/17/2023 5:46 AM EST LABORATORY [facility] Glucose 125(H) 70 - 120 mg/dL 06/17/2023 5:46 AM EST LABORATORY [facility] Albumin 3.6(L) 3.8 - 5.0 g/dL 06/17/2023 5:46 AM EST LABORATORY [facility] AST 23 10 - 35 U/L 06/17/2023 5:46 AM EST LABORATORY [facility] Alkaline Phosphatase 107 35 - 130 U/L 06/17/2023 5:46 AM EST LABORATORY [facility] Bilirubin, Total 0.3 <=1.2 mg/dL 06/17/2023 5:46 AM EST LABORATORY [facility] Calcium 9.4 8.4 - 10.2 mg/dL 06/17/2023 5:46 AM EST LABORATORY [facility] Protein 7.0 6.0 - 8.3 g/dL 06/17/2023 5:46 AM EST LABORATORY [facility] ALT 20 10 - 35 U/L 06/17/2023 5:46 AM EST LABORATORY [facility] Blood Venous blood specimen / Unknown Venipuncture / Unknown 06/17/2023 4:52 AM EST 06/17/2023 5:08 AM EST Vaishali Chan PA-C LAB BLOOD ORDER [facility] Performing Organization Address [facility] de Phone Number LABORATORY [address] [address] * VANCOMYCIN RANDOM (06/17/2023 4:52 AM EST) Vancomycin Random 19.8 10.0 - 40.0 ug/mL 06/17/2023 5:46 AM EST LABORATORY [facility] Blood Venous blood specimen / Unknown Venipuncture / Unknown 06/17/2023 4:52 AM EST 06/17/2023 5:08 AM EST Lindsey Davidson DO LAB BLOOD OR DERABLES Performing Organization Address [facility] Phone Number LABORATORY [address] [address] * (ABNORMAL) GLUCOSE METER, POINT OF CARE (06/16/2023 9:36 PM EST) Glucose Meter 124(H) 70 - 120 mg/dL 06/16/2023 11:53 PM EST [facility] Blood Whole blood specimen / Unknown 06/16/2023 9:36 PM EST 06/16/2023 11:53 PM EST Lindsey Davidson DO LAB POINT OF CARE TEST DOCKED DEVICE UNSOLICITED RESULTS Performing Organization Address [facility] de Phone Number [facility] [address] [place] [phone] * (ABNORMAL) PT INR (06/16/2023 5:46 PM EST) Prothrombin Time 24.9(H) 11.6 - 15.2 seconds 06/16/2023 6:17 PM EST LABORATORY GL INR 2.2(H) 0.8 - 1.2 06/16/2023 6:17 PM EST LABORATORY [facility] Blood Venous blood specimen / Unknown Venipuncture / Unknown 06/16/2023 5:46 PM EST 06/16/2023 5:58 PM EST Narrative LABORATORY [facility] - 06/16/2023 6:17 PM EST Warfarin Therapy INR: 2.0-3.0 conventional anticoagulation INR: 2.5-3.5 high intensity anticoagulation Mode Frias MD LAB BLOOD ORD ERABLES Performing Organization Address [facility] [employer] de Phone Number LABORATORY [address] [phone] * GLUCOSE METER, POINT OF CARE (06/16/2023 4:37 PM EST) Glucose Meter 111 70 - 120 mg/dL 06/16/2023 5:00 PM EST [facility] Blood Whole blood specimen / Unknown 06/16/2023 4:37 PM EST 06/16/2023 5:00 PM EST Lindsey Davidson DO LAB POINT OF CARE TEST DOCKED DEVICE UNSOLICITED RESULTS Performing Organization Address [facility] de Phone Number [facility] [address] [place] [phone] * (ABNORMAL) GLUCOSE METER, POINT OF CARE (06/16/2023 11:18 AM EST) Glucose Meter 135(H) 70 - 120 mg/dL 06/16/2023 11:39 AM EST [facility] Blood Whole blood specimen / Unknown 06/16/2023 11:18 AM EST 06/16/2023 11:39 AM EST Lindsey Davidson DO LAB POINT OF CARE TEST DOCKED DEVICE UNSOLICITED RESULTS Performing Organization Address [facility] de Phone Number [facility] [address] [place] [phone] * GLUCOSE METER, POINT OF CARE (06/16/2023 7:20 AM EST) Glucose Meter 111 70 - 120 mg/dL 06/16/2023 8:00 AM EST [facility] Blood Whole blood specimen / Unknown 06/16/2023 7:20 AM EST 06/16/2023 8:00 AM EST Lindsey Davidson DO LAB POINT OF CARE TEST DOCKED DEVICE UNSOLICITED RESULTS [facility] [address] [place] [address] * MRI KNEE RIGHT WO CONTRAST (06/16/2023 6:49 AM EST) Anatomical Region Laterality Modality Knee, Lower Extremity Magnetic R esonance 06/16/2023 8:01 AM EST Impressions 06/16/2023 7:59 AM EST IMPRESSION 1. Deep subcutaneous fluid collection in the anterior aspect of the right knee. This may represent a postoperative seroma or an abscess (in the appropriate clinical setting). 2. Nonspecific muscle edema in the proximal leg and distal thigh, as above. This is most likely postoperative in nature, though a superimposed infection cannot be excluded. 3. Mild bone marrow edema adjacent to the distal femoral and proximal tibial arthroplasty components, also likely postoperative in nature. Narrative 06/16/2023 7:59 AM EST EXAM MRI KNEE RIGHT WO CONTRAST-RT 06/16/2023 6:49 am HISTORY Provided clinical history: "Right knee anterior superficial wound status post total knee 5 weeks out; rule out deep infection" COMPARISON Right knee radiographs dated June 15, 2023. TECHNIQUE Multiplanar, multi-sequence MRI of the right knee was performed without IV contrast. Metal artifact reduction techniques were employed. 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 There is no fluid signal intensity at the bone-prosthesis interfaces to suggest component loosening. Mild bone marrow edema (greatest at the tibial component) is nonspecific and likely postoperative in nature. There is also nonspecific muscle edema in the proximal leg (specifically involving the deep posterior and anterior compartments) and distal thigh (specifically involving the vastus lateralis and medialis muscles). There is a deep subcutaneous fluid collection in the anterior aspect of the knee that measures up to approximately 4.4 x 0.9 cm in the axial plane and 10.6 cm in craniocaudal dimension. This lies immediately deep to the expected location of the longitudinal skin incision. Procedure Note BiggerBalta MD - 06/16/2023 EXAM MRI KNEE RIGHT WO CONTRAST-RT 06/16/2023 6:49 am HISTORY Provided clinical history: "Right knee anterior superficial wound statuspost total knee 5 weeks out; rule out deep infection" COMPARISON Right knee radiographs dated June 15, 2023. TECHNIQUE Multiplanar, multi-sequence MRI of the right knee was performed without IVcontrast. Metal artifact reduction techniques were employed. 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 Thereis no fluid signal intensity at the bone-prosthesis interfaces to suggestcomponent loosening. Mild bone marrow edema (greatest at the tibialcomponent) is nonspecific and likely postoperative in nature. There isalso nonspecific muscle edema in the proximal leg (specifically involvingthe deep posterior and anterior compartments) and distal thigh(specifically involving the vastus lateralis and medialis muscles). Thereis a deep subcutaneous fluid collection in the anterior aspect of the kneethat measures up to approximately 4.4 x 0.9 cm in the axial plane and 10.6cm in craniocaudal dimension. This lies immediately deep to the expectedlocation of the longitudinal skin incision. IMPRESSION IMPRESSION 1. Deep subcutaneous fluid collection in the anterior aspect of the rightknee. This may represent a postoperative seroma or an abscess (in theappropriate clinical setting). 2. Nonspecific muscle edema in the proximal leg and distal thigh, asabove. This is most likely postoperative in nature, though a superimposedinfection cannot be excluded. 3. Mild bone marrow edema adjacent to the distal femoral and proximaltibial arthroplasty components, also likely postoperative in nature. Lindsey Davidson DO RAD MRI-MRA * (ABNORMAL) CBC (06/16/2023 4:23 AM EST) WBC 4.81 4.00 - 10.80 K/uL 06/16/2023 4:53 AM EST LAB[facility]ATORY [facility] RBC 3.01 3.85 - 5.15 M/uL 06/16/2023 4:53 AM EST [facility] HGB 8.9(L) 12.0 - 15.3 g/dL 06/16/2023 4:53 AM EST [facility] HCT 27.6(L) 36.0 - 45.2 % 06/16/2023 4:53 AM EST LABORATORY GL MCV 91.7 81.5 - 97.5 fL 06/16/2023 4:53 AM EST LABORATORY GL MCH 29.6 27.0 - 34.0 pg 06/16/2023 4:53 AM EST LABORATORY GL MCHC 32.2 32.0 - 36.0 g/dL 06/16/2023 4:53 AM EST LABORATORY GL RDW 14.4 11.5 - 15.5 % 06/16/2023 4:53 AM EST LABORATORY GL PLT 327 140 - 400 K/uL 06/16/2023 4:53 AM EST LABORATORY GL MPV 9.4 6.6 - 11.1 fL 06/16/2023 4:53 AM EST LABORATORY GL nRBCs 0 <=0 /100 WBCs 06/16/2023 4:53 AM EST LABORATORY GL Blood Venous blood specimen / Unknown Venipuncture / Unknown 06/16/2023 4:23 AM EST 06/16/2023 4:46 AM EST Vaishali Chan PA-C LAB BLOOD ORDER [facility] [address] [place] [address] * (ABNORMAL) COMPREHENSIVE METABOLIC PANEL (06/16/2023 4:23 AM EST) BUN 16 6 - 20 mg/dL 06/16/2023 5:05 AM EST LAB[facility] Creatinine 0.9 0.5 - 1.0 mg/dL 06/16/2023 5:05 AM EST [facility] Estimated Glomerular Filtration Rate 75 >=60 mL/min 06/16/2023 5:05 AM EST [facility] Comment:eGFR is calculated b ased on the CKD-EPI 2020 equation Sodium 138 135 - 146 mmol/L 06/16/2023 5:05 AM EST [facility] Potassium 3.9 3.5 - 5.1 mmol/L 06/16/2023 5:05 AM EST [facility] Chloride 100 98 - 107 mmol/L 06/16/2023 5:05 AM EST [facility] CO2 27 22 - 32 mmol/L 06/16/2023 5:05 AM EST [facility] Anion Gap 11 7 - 15 mmol/L 06/16/2023 5:05 AM EST [facility] Glucose 106 70 - 120 mg/dL 06/16/2023 5:05 AM EST [facility] Albumin 3.5(L) 3.8 - 5.0 g/dL 06/16/2023 5:05 AM EST [facility] AST 24 10 - 35 U/L 06/16/2023 5:05 AM EST [facility] Alkaline Phosphatase 108 35 - 130 U/L 06/16/2023 5:05 AM EST [facility] Bilirubin, Total 0.3 <=1.2 mg/dL 06/16/2023 5:05 AM EST [facility] Calcium 9.4 8.4 - 10.2 mg/dL 06/16/2023 5:05 AM EST [facility] Protein 6.7 6.0 - 8.3 g/dL 06/16/2023 5:05 AM EST [facility] ALT 24 10 - 35 U/L 06/16/2023 5:05 AM EST LABORATORY GL Blood Venous blood specimen / Unknown Venipuncture / Unknown 06/16/2023 4:23 AM EST 06/16/2023 4:46 AM EST Vaishali Chan PA-C LAB BLOOD ORDER [facility] [address] [address] * (ABNORMAL) PT INR (06/16/2023 4:23 AM EST) [facility] Prothrombin Time 30.4(H) 11.6 - 15.2 seconds 06/16/2023 5:06 AM EST LABORATORY GL INR 2.9(H) 0.8 - 1.2 06/16/2023 5:06 AM EST LABORATORY GL Blood Venous blood specimen / Unknown Venipuncture / Unknown 06/16/2023 4:23 AM EST 06/16/2023 4:46 AM EST Narrative LAB[facility]ATORY [facility] - 06/16/2023 5:06 AM EST Warfarin Therapy INR: 2.0-3.0 conventional anticoagulation INR: 2.5-3.5 high intensity anticoagulation Vaishali Chan PA-C LAB BLOOD ORDER [facility] Performing Organization Address City/[facility]/[place] Co de Phone Number LABORATORY [address] [phone] * GLUCOSE METER, POINT OF CARE (06/15/2023 9:15 PM EST) Glucose Meter 116 70 - 120 mg/dL 06/15/2023 10:18 PM EST [facility] Blood Whole blood specimen / Unknown 06/15/2023 9:15 PM EST 06/15/2023 10:18 PM EST Lindsey Davidson DO LAB POINT OF CARE TEST DOCKED DEVICE UNSOLICITED RESULTS Performing Organization Address [facility] de Phone Number [facility] [address] [place] [phone] * GLUCOSE METER, POINT OF CARE (06/15/2023 6:00 PM EST) Glucose Meter 105 70 - 120 mg/dL 06/15/2023 6:06 PM EST [facility] Blood Whole blood specimen / Unknown 06/15/2023 6:00 PM EST 06/15/2023 6:06 PM EST Lindsey Davidson DO LAB POINT OF CARE TEST DOCKED DEVICE UNSOLICITED RESULTS Performing Organization Address [facility] de Phone Number [facility] [address] [place] [phone] * (ABNORMAL) CULTURE, WOUND, DEEP, AEROBIC AND ANAEROBIC (06/15/2023 4:20 PM EST) Culture Growth Many Pseudomonas aeruginosa(A) MICROBROTH DILUTIONS 06/18/2023 2:34 PM EST LABORATORY C Comment:This bacterial speci es is known to produce a chromosomal AmpC inducible beta lactamase. Penicillin or cephalosporin use, with the exception of cefepime, may result in resistance. Stain Description Few Polymorphonuclear leukocytes(A) 06/18/2023 2:34 PM EST LABORATORY GM Stain Description Many Gram negative bacilli(A) 06/18/2023 2:34 PM EST LABORATORY GM Stain Description Many Gram positive cocci(A) 06/18/2023 2:34 PM EST LABORATORY [facility] Deep Wound Structure of right knee region / Unknown Non-blood Collection / Unknown 06/15/2023 4:20 PM EST 06/15/2023 4:27 PM EST Narrative LABORATORY [facility] - 06/18/2023 2:34 PM EST Multiple other species of aerobic and/or anaerobic bacteria. No further workup routinely performed Organism Antibiotic Method Susceptibility Pseudomonas aeruginosa Cefepime MICROBROTH DILUTIONS <=1: Susceptible Pseudomonas aeruginosa Ciprofloxacin MICROBROTH DILUTIONS <=0.25: Susceptible Pseudomonas aeruginosa Levofloxacin MICROBROTH DILUTIONS 0.25: Susceptible Pseudomonas aeruginosa Piperacillin Tazobactam MICROBROTH DILUTIONS 8: Susceptible Pseudomonas aeruginosa Tobramycin MICROBROTH DILUTIONS <=1: Susceptible Lindsey Davidson DO LAB MICRO - GENERAL ORDERABLES LABORATORY [facility] [address] [place] [address] * XR KNEE 4 OR MORE VIEWS (06/15/2023 3:06 PM EST) Anatomical Region Laterality Modality Knee, Lower Extremity Digital Ra diography 06/15/2023 2:57 PM EST Impressions 06/15/2023 3:23 PM EST IMPRESSION: 1. Infectious/inflammatory soft tissue changes about the patella. No definite osseous erosion to suggest osteomyelitis. 2. Moderate joint effusion. 3. Intact total knee arthroplasty. THIS DOCUMENT HAS BEEN ELECTRONICALLY SIGNED BY MARIA LUISA WISDOM MD Narrative 06/15/2023 3:23 PM EST PROCEDURE INFORMATION: Exam: XR Right Knee Exam date and time: 06/15/2023 2:57 PM Age: 67 years old Clinical indication: Other: Knee replacement 3 weeks ago, open infected wound over patella area; Additional info: Right knee pain TECHNIQUE: Imaging protocol: Radiologic exam of the right knee. Views: 4 or more views. COMPARISON: DX XR KNEE 3 VIEWS 05/21/2023 1:26 PM FINDINGS: Bones/joints: Total knee arthroplasty. No hardware fracture. No periprosthetic fracture or dislocation. No definite osseous erosion. Moderate joint effusion. Quadriceps and patellar enthesopathy. Soft tissues: Peripatellar soft tissue swelling and stranding. Soft tissue defect anterior to the patella which appears tract to the anterior patellar surface on lateral view. Procedure Note Maria Luisa Wisdom MD - 06/15/2023 PROCEDURE INFORMATION: Exam: XR Right Knee Exam date and time: 06/15/2023 2:57 PM Age: 67 years old Clinical indication: Other: Knee replacement 3 weeks ago, open infectedwound over patella area; Additional info: Right knee pain TECHNIQUE: Imaging protocol: Radiologic exam of the right knee. Views: 4 or more views. COMPARISON: DX XR KNEE 3 VIEWS 05/21/2023 1:26 PM FINDINGS: Bones/joints: Total knee arthroplasty. No hardware fracture. Noperiprosthetic fracture or dislocation. No definite osseous erosion. Moderate jointeffusion. Quadriceps and patellar enthesopathy. Soft tissues: Peripatellar soft tissue swelling and stranding. Soft tissue defect anterior to the patella which appears tract to the anteriorpatellar surface on lateral view. IMPRESSION IMPRESSION: 1. Infectious/inflammatory soft tissue changes about the patella. Nodefinite osseous erosion to suggest osteomyelitis. 2. Moderate joint effusion. 3. Intact total knee arthroplasty. THIS DOCUMENT HAS BEEN ELECTRONICALLY SIGNED BY MARIA LUISA WISDOM MD Lindsey Eller MD RADIOLOGY ([facility]) * (ABNORMAL) ERYTHROCYTE SEDIMENTATION RATE (ESR) (06/15/2023 2:46 PM EST) ESR 62(H) <30 mm/hour 06/15/2023 10:59 PM EST LABORATORY [facility] Blood Venous blood specimen / Unknown Venipuncture / Unknown 06/15/2023 2:46 PM EST 06/15/2023 2:51 PM EST Lindsey Davidson DO LAB BLOOD OR DERABLES LABORATORY [facility] [address] [place] [address] * (ABNORMAL) PT INR (06/15/2023 2:46 PM EST) Prothrombin Time 32.2(H) 11.6 - 15.2 seconds 06/15/2023 3:09 PM EST LABORATORY [facility] INR 3.1(H) 0.8 - 1.2 06/15/2023 3:09 PM EST LABORATORY [facility] Blood Venous blood specimen / Unknown Venipuncture / Unknown 06/15/2023 2:46 PM EST 06/15/2023 2:51 PM EST [facility] LABORATORY [facility] - 06/15/2023 3:09 PM EST Warfarin Therapy INR: 2.0-3.0 conventional anticoagulation INR: 2.5-3.5 high intensity anticoagulation Lindsey Eller MD LAB BLOOD ORDERABLES Performing Organization Address City/State/[place] Co [place] [address] * (ABNORMAL) DIFFERENTIAL, AUTOMATED (06/15/2023 2:46 PM EST) Pathologist [facility] WBC 7.83 4.00 - 10.80 K/uL 06/15/2023 2:54 PM EST LABORATORY [facility] Neutrophils % 72.7 40.0 - 75.0 % 06/15/2023 2:54 PM EST LABORATORY [facility] Lymphocytes % 16.6(L) 18.0 - 42.0 % 06/15/2023 2:54 PM EST LABORATORY GL Monocytes % 7.2 1.0 - 11.0 % 06/15/2023 2:54 PM EST LAB[facility] Eosinophils % 2.7 0.0 - 6.0 % 06/15/2023 2:54 PM EST LABORATORY GL Basophils % 0.4 0.0 - 2.0 % 06/15/2023 2:54 PM EST LABORATORY GL Immature Granulocytes % 0.4 0.0 - 2.0 % 06/15/2023 2:54 PM EST LABORATORY GL Absolute Neutrophils 5.70 1.80 - 7.70 K/uL 06/15/2023 2:54 PM EST LABORATORY [facility] Absolute Lymphocytes 1.30 1.00 - 4.80 K/ul 06/15/2023 2:54 PM EST LABORATORY [facility] Absolute Monocytes 0.56 0.00 - 1.10 K/uL 06/15/2023 2:54 PM EST LABORATORY GL Absolute Eosinophils 0.21 0.00 - 0.70 K/uL 06/15/2023 2:54 PM EST LABORATORY GL Absolute Basophils 0.03 0.00 - 0.20 K/uL 06/15/2023 2:54 PM EST LABORATORY GL Absolute Immature Granulocytes 0.03 0.00 - 0.20 K/uL 06/15/2023 2:54 PM EST LABORATORY GL Blood Venous blood specimen / Unknown Venipuncture / Unknown 06/15/2023 2:46 PM EST 06/15/2023 2:51 PM EST Lindsey Eller MD LAB BLOOD ORDERABLES LABORATORY [address] [address] * (ABNORMAL) CBC (06/15/2023 2:46 PM EST) Pathologist [facility] WBC 7.83 4.00 - 10.80 K/uL 06/15/2023 2:54 PM EST LABORATORY GL RBC 3.45 3.85 - 5.15 M/uL 06/15/2023 2:54 PM EST LABORATORY GL HGB 10.3(L) 12.0 - 15.3 g/dL 06/15/2023 2:54 PM EST LABORATORY GL HCT 32.0(L) 36.0 - 45.2 % 06/15/2023 2:54 PM EST LABORATORY GL MCV 92.8 81.5 - 97.5 fL 06/15/2023 2:54 PM EST LABORATORY GL MCH 29.9 27.0 - 34.0 pg 06/15/2023 2:54 PM EST LABORATORY GL MCHC 32.2 32.0 - 36.0 g/dL 06/15/2023 2:54 PM EST LABORATORY GL RDW 14.5 11.5 - 15.5 % 06/15/2023 2:54 PM EST LABORATORY GL PLT 454(H) 140 - 400 K/uL 06/15/2023 2:54 PM EST LABORATORY GL MPV 9.7 6.6 - 11.1 fL 06/15/2023 2:54 PM EST LAB[facility]ATORY [facility] nRBCs 0 <=0 /100 WBCs 06/15/2023 2:54 PM EST [facility] Blood Venous blood specimen / Unknown Venipuncture / Unknown 06/15/2023 2:46 PM EST 06/15/2023 2:51 PM EST Lindsey Eller MD LAB BLOOD ORDERABLES Performing Organization Address City/[facility]/ZIP Co de Phone Number LABORATORY [address] [address] * (ABNORMAL) CRP (INFLAMMATORY MARKER) (06/15/2023 2:46 PM EST) Pathologist [facility] CRP (Inflammatory Marker) 9(H) <=5 mg/L 06/15/2023 3:09 PM EST LAB[facility]ATORY [facility] Blood Venous blood specimen / Unknown Venipuncture / Unknown 06/15/2023 2:46 PM EST 06/15/2023 2:51 PM EST Lindsey Eller MD LAB BLOOD ORDERABLES Performing Organization Address [facility]/ZIP Co de Phone Number LABORATORY [address] [address] * (ABNORMAL) COMPREHENSIVE METABOLIC PANEL (06/15/2023 2:46 PM EST) [facility] BUN 18 6 - 20 mg/dL 06/15/2023 3:09 PM EST LAB[facility]ATORY [facility] Creatinine 1.0 0.5 - 1.0 mg/dL 06/15/2023 3:09 PM EST LAB[facility]ORY [facility] Estimated Glomerular Filtration Rate 59(L) >=60 mL/min 06/15/2023 3:09 PM EST LAB[facility] Comment:eGFR is calculated b ased on the CKD-EPI 2020 equation Sodium 134(L) 135 - 146 mmol/L 06/15/2023 3:09 PM EST LAB[facility]ORY [facility] Potassium 4.0 3.5 - 5.1 mmol/L 06/15/2023 3:09 PM EST LAB[facility] Chloride 95(L) 98 - 107 mmol/L 06/15/2023 3:09 PM EST LAB[facility]ORY [facility] CO2 26 22 - 32 mmol/L 06/15/2023 3:09 PM EST LAB[facility] Anion Gap 13 7 - 15 mmol/L 06/15/2023 3:09 PM EST LAB[facility] Glucose 125(H) 70 - 120 mg/dL 06/15/2023 3:09 PM EST LAB[facility] Albumin 4.1 3.8 - 5.0 g/dL 06/15/2023 3:09 PM EST LAB[facility]ATORY [facility] AST 33 10 - 35 U/L 06/15/2023 3:09 PM EST LAB[facility]ATORY [facility] Alkaline Phosphatase 133(H) 35 - 130 U/L 06/15/2023 3:09 PM EST LAB[facility]ATORY [facility] Bilirubin, Total 0.4 <=1.2 mg/dL 06/15/2023 3:09 PM EST LAB[facility]ATORY [facility] Calcium 9.7 8.4 - 10.2 mg/dL 06/15/2023 3:09 PM EST LAB[facility]ATORY [facility] Protein 7.5 6.0 - 8.3 g/dL 06/15/2023 3:09 PM EST LAB[facility]ATORY [facility] ALT 30 10 - 35 U/L 06/15/2023 3:09 PM EST LAB[facility]ORY [facility] Blood Venous blood specimen / Unknown Venipuncture / Unknown 06/15/2023 2:46 PM EST 06/15/2023 2:51 PM EST Lindsey Eller MD LAB BLOOD ORDERABLES Performing Organization Address City/State/[place] Co de Phone Number LABORATORY [facility] [address] [place] [phone] documented in this encounter Visit Diagnoses Diagnosis Postoperative wound infection- Primary Other postoperative infection Infection of right knee (HCC) Paroxysmal atrial fibrillation (HCC) Atrial fibrillation Status post total right knee replacement Postoperative wound infection Other postoperative infection History of total knee arthroplasty, right Wound dehiscence, surgical Disruption of external operation (surgical) wound Body mass index (BMI) of 40.0 to 44.9 in adult (HCC) Type 2 diabetes mellitus without complications (HCC) Type II or unspecified type diabetes mellitus without mention of complication, not stated as uncontrolled Essential hypertension with goal blood pressure less than 140/90 Paroxysmal atrial fibrillation (HCC) Atrial fibrillation SALVADOR on CPAP Obstructive sleep apnea (adult) (pediatric) documented in this encounter Administered Medications Inactive Administered Medications - up to 3 most recent administrations Medication Order MAR Action Action Date Dose Rate Site Acetaminophen (Tylenol) tab 975 mg 975 mg, Oral, Q6H, First dose on Thu06/15/23 at 1800, Last dose on Thu06/20/23 at 1200, For 5 days, Maximum of 4 grams (4000 mg) per day. Given 06/17/2023 11:56 AM EST 975 mg Given 06/17/2023 5:40 AM EST 975 mg Given 06/16/2023 11:48 PM EST 975 mg Acetaminophen (Tylenol) tab 975 mg 975 mg, Oral, Q6H, First dose on Thu06/17/23 at 1800, Last dose on Thu06/22/23 at 1200, For 5 days, Maximum of 4 grams (4000 mg) per day., Post-op Given 06/19/2023 11:44 AM EST 975 mg Given 06/19/2023 6:07 AM EST 975 mg Given 06/18/2023 11:43 PM EST 975 mg amiodarone (Cordarone) tab 200 mg 200 mg, Oral, Daily(AM), First dose on Thu06/16/23 at 0900, Until Discontinued Given 06/19/2023 8:18 AM EST 200 mg Given 06/18/2023 8:10 AM EST 200 mg Given 06/17/2023 8:42 AM EST 200 mg amLODIPine (Norvasc) tab 5 mg 5 mg, Oral, Daily(AM), First dose on Thu06/16/23 at 0900, Until Discontinued Given 06/19/2023 8:17 AM EST 5 mg Given 06/18/2023 8:10 AM EST 5 mg Given 06/17/2023 8:42 AM EST 5 mg atorvaSTATin (Lipitor) tab 80 mg 80 mg, Oral, Daily(AM), First dose on Thu06/16/23 at 0900, Until Discontinued Given 06/19/2023 8:17 AM EST 80 mg Given 06/18/2023 8:07 AM EST 80 mg Given 06/17/2023 8:42 AM EST 80 mg ceFAZolin in dextrose (Ancef) ivpb 2 g 2 g, IV Piggyback, Q8H, 9 doses, First dose on Thu06/15/23 at 1830, Last dose on Thu06/18/23 at 1400 New Bag 06/17/2023 5:43 AM EST 2 g 10 0 mL/hr New 06/16/2023 10:13 PM EST 2 g 100 mL/hr Restarted 06/16/2023 2:13 PM EST 4 g/hr 100 mL/hr cefepime in D5W (Maxipime) ivpb (THREE hour infusion) 1 g 1 g, IV Piggyback, Q6HNOW, 20 doses, First dose on Thu06/17/23 at 1200, Last dose on Thu06/22/23 at 0600, THREE HOUR INFUSION New 06/19/2023 6:13 AM EST 1 g 16.67 mL /hr New 06/18/2023 11:50 PM EST 1 g 16.67 mL/hr 06/18/2023 5:49 PM EST 1 g 16.67 mL/hr ciprofloxacin (Cipro) tab 500 mg 500 mg, Oral, Q12H, First dose on Thu06/19/23 at 2100, Until Discontinued, Hold antacids and iron for 3-4 hours before and after administration. CYANOCOBALAMIN (vitamin B-12) tab 1,000 mcg 1,000 mcg, Oral, Daily(AM), First dose on Thu06/16/23 at 0900, Until Discontinued Given 06/19/2023 8:17 AM EST 1,000 mcg Given 06/18/2023 8:07 AM EST 1,000 mcg Given 06/17/2023 8:42 AM EST 1,000 mcg dextrose 50 % inj 25 mL 25 mL, IV Push, PRN Hypoglycemia, Other, For blood glucose 54 - 69 mg/dL or 70 - 100 mg/dL with symptoms AND patient is unresponsive, NPO, OR unable to swallow, Starting on Thu06/15/23 at 1716, Until Thu06/19/23 at 1915, Administer IV. Recheck blood glucose after 15 minutes. Notify provider. dextrose 50 % inj 50 mL 50 mL, IV Push, PRN Hypoglycemia, Other, For blood glucose below 54 mg/dL AND patient unresponsive, NPO, OR unable to swallow, Starting on Thu06/15/23 at 1716, Until Thu06/19/23 at 1915, Administer IV. Recheck blood glucose in 15 minutes. Notify provider. Docusate Sodium (Colace) cap 100 mg 100 mg, Oral, BID (.AM/PM), First dose on Thu06/17/23 at 2100, Until Discontinued, Give until first BM, then Discontinue, Post-op Given 06/18/2023 8:26 PM EST 10 0 mg Given 06/17/2023 8:42 PM EST 100 mg Enoxaparin (Lovenox) inj 40 mg 40 mg, Subcutaneous, Daily(AM), First dose on Thu06/16/23 at 0800, Until Discontinued, If patient is on warfarin, inform provider if daily INR value is 2 or greater! Given 06/16/2023 10:44 AM EST 40 mg Abdo men Right Lower Enoxaparin (Lovenox) inj 40 mg 40 mg, Subcutaneous, Daily(AM), First dose on Thu06/18/23 at 0800, Until Discontinued, If patient is on warfarin, inform provider if daily INR value is 2 or greater!, Post-op Given 06/19/2023 8:19 AM EST 40 mg Abdomen Right Lower Given 06/18/2023 8:07 AM EST 40 mg Ab domen Left Lower Ezetimibe (Zetia) tab 10 mg 10 mg, Oral, Daily(AM), First dose on Thu06/16/23 at 0900, Until Discontinued Given 06/19/2023 8:18 AM EST 10 mg Given 06/18/2023 8:11 AM EST 10 mg Given 06/17/2023 8:42 AM EST 10 mg Famotidine (Pepcid) inj 20 mg 20 mg, IV Push, ONCE, On Thu06/17/23 at 1730, For 1 dose, ADMINISTER ONLY IN PACU Give IV push over 2 minutes., PACU Given 06/17/2023 5:25 PM EST 20 mg fentaNYL (PF) inj 50 mcg 50 mcg, IV Push, Q5 MIN PRN Pain, Severe, Starting on Thu06/17/23 at 1659, Until Thu06/17/23 at 1810, For 3 doses, Administer up to 100 mcg total in 24 hours. ADMINISTER ONLY IN PACU When given IV Push its recommended that the dose be given over 3 to 5 minutes., PACU Given 06/17/2023 5:19 PM EST 50 mcg Given 06/17/2023 5:03 PM EST 50 mcg Ferrous Sulfate (Feosol) tab 325 mg 325 mg, Oral, EVERY OTHER DAY, First dose on Thu06/16/23 at 0800, Until Discontinued, This med should NOT be Crushed or Chewed Given 06/18/2023 8:07 AM EST 325 mg Given 06/16/2023 9:04 AM EST 325 mg glucagon (Glucagen) inj 1 mg 1 mg, Intramuscular, PRN Hypoglycemia, Other, If patient is unresponsive, or NPO and has no IV access, Starting on Thu06/15/23 at 1716, Until Thu06/19/23 at 191, NPO and no IV access with either 1) blood glucose less than 100 mg/dL and symptomatic OR 2) blood glucose less than 70 mg/dL and asymptomatic Glucose (Glutose 15) 40 % gel 15 g of glucose 15 g of glucose, Oral, PRN Hypoglycemia (low sugar), Other, For blood glucose 54 - 69 mg/dL or 70 - 100 mg/dL with symptoms AND patient alert WITH difficulty chewing/swallowing, Starting on Thu06/15/23 at 1716, Until Thu06/19/23 at 191, Administer gel. Recheck blood glucose after 15 minutes. Notify provider. 37.5 gram tube = 15 grams glucose = 1 each Glucose (Glutose 15) 40 % gel 30 g of glucose 30 g of glucose, Oral, PRN Hypoglycemia (low sugar), Other, For blood glucose below 54 mg/dL AND patient alert WITH difficulty chewing/swallowing, Starting on Thu06/15/23 at 1716, Until Thu06/19/23 at 191, Administer gel. Recheck blood glucose after 15 minutes. Notify provider. 37.5 gram tube = 15 grams glucose = 1 each glucose chew tab 16 g 16 g, Oral, PRN Hypoglycemia, Other, For blood glucose 54 - 69 mg/dL or 70 - 100 mg/dL with symptoms and patient alert without difficulty chewing/swallowing., Starting on Thu06/15/23 at 1716, Until Thu06/19/23 at 191 insulin aspart (NovoLOG) inj Subcutaneous, W/MEALS AND HS, First dose (after last modification) on Thu06/15/23 at 2200, Until Discontinued, MEDIUM DOSE (Usual starting dose): Sliding Scale Correctional insulin may be given if the patient is NPO. Dose based on standard build from Insulin Calculator. Do not modify insulin doses in administration instructions! , Glucose less than 70 instructions: Obtain STAT lab blood glucose and call covering provider., Glucose 80-150 (units): 0, Glucose 151-200 (units): 2, Glucose 201-250 (units): 4, Glucose 251-300 (units): 6, Glucose greater than 300 (units): 8, Glucose greater than 300 instructions: Give suggested insulin dose and call covering provider. Given 06/17/2023 10:01 PM EST 2 Units Arm Left Upper isolyte-S pH 7.4 infusion Intravenous, at 75 mL/hr, Plasma-LYTE 148, isolyte-S, and isolyte-S pH 7.4 are considered equivalent - including for MAR barcode scanning., CONTINUOUS, Starting on Thu06/15/23 at 1700, Until Thu06/16/23 at 1234 Restarted 06/15/2023 10:44 PM EST 75 mL/hr Rate Verify 06/15/2023 7:12 PM EST 75 mL/hr Restarted 06/15/2023 7:06 PM EST 75 mL/hr losartan (Cozaar) tab 100 mg 100 mg, Oral, Daily(AM), First dose on Thu06/16/23 at 0900, Until Discontinued Given 06/19/2023 8:17 AM EST 100 mg Given 06/18/2023 8:07 AM EST 100 mg Given 06/17/2023 8:42 AM EST 100 mg magnesium chloride ER (Mag-64) tab 64 mg 64 mg, Oral, BID (.AM/PM), First dose on Thu06/15/23 at 2100, Until Discontinued, Each tablet contains 64 mg elemental Magnesium Due to various manufacturers, tablets labeled 70mg are considered to be equivalent Given 06/19/2023 8: 17 AM EST 64 mg Given 06/18/2023 8:26 PM EST 64 mg Given 06/18/2023 8:07 AM EST 64 mg Menthol (Clinton) cough drop 1 Lozenge 1 Lozenge, Oral, Q2H PRN Sore throat, Starting on Thu06/17/23 at 1716, Until Thu06/19/23 at 1915, Post-op Given 06/17/2023 10:01 PM EST 1 Lozenge metoprolol succinate XL (toPROL XL) tab 25 mg 25 mg, Oral, Daily(AM), First dose on Thu06/16/23 at 0900, Until Discontinued, Hold for HR less than 60 or SBP below 100 and notify service if dose is held This med should NOT be Crushed or Chewed. Given 06/19/2023 8:18 AM EST 25 mg oxyCODONE (Oxy IR) tab 10 mg 10 mg, Oral, Q4H PRN Pain, Severe, Starting on Thu06/17/23 at 1716, Until Thu06/19/23 at 1915, Hold for somnolence or respiratory rate less than 10, Post-op Given 06/18/2023 4:12 PM EST 10 mg Given 06/17/2023 5:52 PM EST 10 mg oxyCODONE (Oxy IR) tab 5 mg 5 mg, Oral, Q4H PRN Pain, Moderate, Starting on Thu06/15/23 at 1559, Until Thu06/19/23 at 1915, Hold for somnolence or respiratory rate less than 10 Given 06/17/2023 10:02 PM EST 5 mg phytonadione (Mephyton) ORAL SOLUTION 5 mg 5 mg, Oral, ONCE, On Thu06/16/23 at 1030, For 1 dose, SHAKE WELL AND REFRIGERATEREFRIGERATEREFRIGERATE Given 06/16/2023 11:23 AM EST 5 m g phytonadione (Mephyton) ORAL SOLUTION 5 mg 5 mg, Oral, ONCE, On Thu06/16/23 at 1900, For 1 dose, SHAKE WELL AND REFRIGERATEREFRIGERATEREFRIGERATE Given 06/16/2023 6:58 PM EST 5 mg senna (Senokot) 2 Tablet 2 Tablet, Oral, Daily(AM), First dose on Thu06/16/23 at 0900, Until Discontinued, Give until first BM, then Discontinue Given 06/17/2023 8:42 AM EST 2 Tabl ets sodium chloride 0.9 % flush peripheral chris 3 mL 3 mL, IV Push, QSHIFT, First dose on Thu06/15/23 at 1700, Until Discontinued, Do not flush if lock, PICC, or central line not in place; IV infusing or unable to flush. Given 06/17/2023 4:00 PM EST 3 mL Given 06/16/2023 3:23 PM EST 3 mL Given 06/16/2023 8:00 AM EST 3 mL sodium chloride 0.9 % flush peripheral chris 3 mL 3 mL, IV Push, QSHIFT, First dose on Thu06/17/23 at 1800, Until Discontinued, Do not flush if lock, PICC, or central line not in place; IV infusing or unable to flush., Post-op Given 06/17/2023 6 :00 PM EST 3 mL tolterodine LA ER (Detrol LA) cap 4 mg 4 mg, Oral, Daily(AM), First dose on Thu06/16/23 at 0900, Until Discontinued, This med should NOT be Crushed or Chewed Given 06/19/2023 8:18 AM EST 4 mg Given 06/18/2023 8:07 AM EST 4 mg Given 06/17/2023 8:42 AM EST 4 mg traMADol (Ultram) tab 50 mg 50 mg, Oral, Q6H, First dose on Thu06/16/23 at 0000, Until Discontinued, Hold for Somnolence Given 06/19/2023 11:44 AM EST 50 mg Given 06/19/2023 6:07 AM EST 50 mg Given 06/18/2023 11:44 PM EST 50 mg vancomycin (Vancocin) 750 mg in NSS 100 mL ivpb 750 mg, IV Piggyback, Q12H, 6 doses, First dose on Thu06/16/23 at 0900, Last dose on Thu06/18/23 at 2100 New Bag 06/17/2023 8:48 AM EST 750 mg 110 mL/hr New Bag 06/16/2023 8:54 PM EST 750 mg 110 mL/hr New Bag 06/16/2023 9:21 AM EST 750 mg 110 mL/hr vancomycin (Vancocin) 750 mg in NSS 100 mL ivpb 750 mg, IV Piggyback, Q12H, 10 doses, First dose (after last modification) on Thu06/17/23 at 2100, Last dose on Thu06/22/23 at 0900 New Bag 06/19/2023 8:31 AM EST 750 mg 110 mL/hr New Bag 06/18/2023 8:31 PM EST 750 mg 110 mL/hr New Bag 06/18/2023 9:27 AM EST 750 mg 110 mL/hr vancomycin 2250 mg in 500 mL NSS ivpb 2,250 mg, IV Piggyback, ONCE, 1 dose, On Thu06/15/23 at 1900 Restarted 06/15/2023 10:29 PM EST 900 mg/hr 220 mL/hr Restarted 06/15/2023 10:19 PM EST 900 mg/hr 220 mL/hr Restarted 06/15/2023 9:05 PM EST 900 mg/hr 220 mL/hr warfarin check daily dose (PHARMACIST MANAGED) [id number], First dose on Ellie 06/18/23 at 1500, Until Discontinued, Routine, Contact the pharmacy if there is not a warfarin dose entered by 1500 and document with whom it was discussed. Warfarin Sodium (Coumadin) tab 10 mg 10 mg, Oral, QPM-1999, First dose on Thu06/18/23 at 1999, Last dose on Thu06/18/23 at 1999, For 1 day, WASTE INFO: Return packaging and waste medication in zip lock bag to pharmacy - [facility] container. Given 06/18/2023 8:26 PM EST 10 mg Warfarin Sodium (Coumadin) tab 7.5 mg 7.5 mg, Oral, QPM-1999, First dose on Thu06/19/23 at 1999, Last dose on Thu06/19/23 at 1999, For 1 day, WASTE INFO: Return packaging and waste medication in zip lock bag to pharmacy - [facility] container. documented in this encounter Active and Recently Administered Medications Times are shown in EST. Scheduled Medication Order 06/17/2023 06/18/2023 06/19/2023 Acetaminophen (Tylenol) tab 975 mg (CANCELED) 975 mg, Oral, Q6H, First dose on Thu06/15/23 at 1800, Last dose on Thu06/20/23 at 1200, For 5 days, Maximum of 4 grams (4000 mg) per day. 0540 (Given - Provider: Mylene Cotto RN)1156 (Given - Provider: Litzy Overton RN) Acetaminophen (Tylenol) tab 975 mg 975 mg, Oral, Q6H, First dose on Thu06/17/23 at 1800, Last dose on Thu06/22/23 at 1200, For 5 days, Maximum of 4 grams (4000 mg) per day., Post-op 1800 (Not Given - Provider: Litzy Overton RN - Reason: Refused-Notify Provider) 0039 (Given - Provider: Dena Edwards RN)0528 (Given - Provider: Dena Edwards RN)1209 (Given - Provider: Litzy Dewey RN)1747 (Given - Provider: Litzy Dewey RN)2343 (Given - Provider: Dena Edwards RN) 0607 (Given - Provider: Dena Edwards RN)1144 (Given - Provider: Dena Bhatia RN) amiodarone (Cordarone) tab 200 mg 200 mg, Oral, Daily(AM), First dose on Thu06/16/23 at 0900, Until Discontinued 0842 (Given - Provider: Litzy Overton RN) 0810 (Given - Provider: Litzy Dewey RN) 0818 (Given - Provider: Dena Bhatia RN) amLODIPine (Norvasc) tab 5 mg 5 mg, Oral, Daily(AM), First dose on Thu06/16/23 at 0900, Until Discontinued 0842 (Given - Provider: Litzy Overton RN) 0810 (Given - Provider: Litzy Dewey RN) 0817 (Given - Provider: Dena Bhatia RN) atorvaSTATin (Lipitor) tab 80 mg 80 mg, Oral, Daily(AM), First dose on Thu06/16/23 at 0900, Until Discontinued 0842 (Given - Provider: Lizty Overton RN) 0807 (Given - Provider: Litzy Dewey RN) 0817 (Given - Provider: Dena Bhatia RN) ceFAZolin in dextrose (Ancef) ivpb 2 g (CANCELED) 2 g, IV Piggyback, Q8H, 9 doses, First dose on Thu06/15/23 at 1830, Last dose on Thu06/18/23 at 1400 0543 (New Bag - Provider: Mylene Cotto, EBONIE)0613 (Stopped - Provider: Mylene Cotto RN) cefepime in D5W (Maxipime) ivpb (THREE hour infusion) 1 g (CANCELED) 1 g, IV Piggyback, Q6HNOW, 20 doses, First dose on Thu06/17/23 at 1200, Last dose on Thu06/22/23 at 0600, THREE HOUR INFUSION 1159 (New Bag - Provider: Litzy Overton RN)1843 (New Bag - Provider: Litzy Overton RN)1847 (Paused - Provider: Dena Edwards RN)1854 (Restarted - Provider: Dena Edwards RN)2152 (Stopped - Provider: Dena Edwards RN) 0053 (New Bag - Provider: Dena Edwards RN)0354 (Stopped - Provider: Dena Edwards RN)0527 (New Bag - Provider: Dena Edwards RN)0651 (Rate Verify - Provider: Dena Edwards RN)0838 (Stopped - Provider: Litzy Dewey RN)1218 (New Bag - Provider: Litzy Dewey RN)1518 (Stopped - Provider: Litzy Dewey RN)1749 (New Bag - Provider: Litzy Dewey RN)2049 (Stopped - Provider: Dena Edwards RN)2350 (New Bag - Provider: Dena Edwards RN) 0249 (Stopped - Provider: Dena Edwards RN)0613 (New Bag - Provider: Dena Edwards RN)0913 (Stopped - Provider: Dena Bhatia RN) ciprofloxacin (Cipro) tab 500 mg 500 mg, Oral, Q12H, First dose on Thu06/19/23 at 2100, Until Discontinued, Hold antacids and iron for 3-4 hours before and after administration. CYANOCOBALAMIN (vitamin B-12) tab 1,000 mcg 1,000 mcg, Oral, Daily(AM), First dose on Thu06/16/23 at 0900, Until Discontinued 0842 (Given - Provider: Litzy Overton RN) 0807 (Given - Provider: Litzy Dewey RN) 0817 (Given - Provider: Dena Bhatia RN) Docusate Sodium (Colace) cap 100 mg 100 mg, Oral, BID (.AM/PM), First dose on Thu06/17/23 at 2100, Until Discontinued, Give until first BM, then Discontinue, Post-op 2041 (Given - Provider: Dena Edwards, RN) 08 (Not Given - Provider: Litzy Dewey RN - Reason: Refused-Notify Provider - Comment: patient states she is not having trouble having BM's)2025 (Given - Provider: Dena Edwards RN) 08 (Not Given - Provider: Dena Bhatia RN - Reason: Refused-Notify Provider) Enoxaparin (Lovenox) inj 40 mg 40 mg, Subcutaneous, Daily(AM), First dose on Thu06/18/23 at 0800, Until Discontinued, If patient is on warfarin, inform provider if daily INR value is 2 or greater!, Post-op 806 (Given - Provider: Litzy Dewey RN) 818 (Given - Provider: Dena Bhatia, EBONIE) Ezetimibe (Zetia) tab 10 mg 10 mg, Oral, Daily(AM), First dose on Thu06/16/23 at 0900, Until Discontinued 841 (Given - Provider: Litzy Overton RN) 08 (Given - Provider: Litzy Dewey RN) 08 (Given - Provider: Dena Bhatia, EBONIE) Famotidine (Pepcid) inj 20 mg (COMPLETED) 20 mg, IV Push, ONCE, On Thu06/17/23 at 1730, For 1 dose, ADMINISTER ONLY IN PACU Give IV push over 2 minutes., PACU 1725 (Given - Provider: Nohelia Rausch, EBONIE) Ferrous Sulfate (Feosol) tab 325 mg 325 mg, Oral, EVERY OTHER DAY, First dose on Thu06/16/23 at 0800, Until Discontinued, This med should NOT be Crushed or Chewed 806 (Given - Provider: Litzy Dewey, EBONIE) insulin aspart (NovoLOG) inj Subcutaneous, W/MEALS AND HS, First dose (after last modification) on Thu06/15/23 at 2200, Until Discontinued, MEDIUM DOSE (Usual starting dose): Sliding Scale Correctional insulin may be given if the patient is NPO. Dose based on standard build from Insulin Calculator. Do not modify insulin doses in administration instructions! , Glucose less than 70 instructions: Obtain STAT lab blood glucose and call covering provider., Glucose 80-150 (units): 0, Glucose 151-200 (units): 2, Glucose 201-250 (units): 4, Glucose 251-300 (units): 6, Glucose greater than 300 (units): 8, Glucose greater than 300 instructions: Give suggested insulin dose and call covering provider. 0800 (No Insulin - Provider: Litzy Overton RN - Reason: Parameter(s) Not Met)1200 (Not Given - Provider: Litzy Overton RN - Reason: Parameter(s) Not Met)1700 (OR/Procedure - Provider: Litzy Overton RN)220 (Given - Provider: Dena Edwards RN) 0800 (No Insulin - Provider: Litzy Dewey RN - Reason: Parameter(s) Not Met)1200 (No Insulin - Provider: Litzy Dewey RN - Reason: Parameter(s) Not Met)1700 (No Insulin - Provider: Litzy Dewey RN - Reason: Parameter(s) Not Met)2200 (Not Given - Provider: Dnea Edwards RN - Reason: Parameter(s) Not Met) 0811 (No Insulin - Provider: Dena Bhatia RN - Reason: Parameter(s) Not Met - Comment: BSBS 119)1135 (No Insulin - Provider: Dena Bhatia RN - Reason: Parameter(s) Not Met - Comment: BSBS 100) losartan (Cozaar) tab 100 mg 100 mg, Oral, Daily(AM), First dose on Thu06/16/23 at 0900, Until Discontinued 08 (Given - Provider: Litzy Overton RN) 08 (Given - Provider: Litzy Dewey RN) 08 (Given - Provider: Dena Bhatia RN) magnesium chloride ER (Mag-64) tab 64 mg 64 mg, Oral, BID (.AM/PM), First dose on Thu06/15/23 at 2100, Until Discontinued, Each tablet contains 64 mg elemental Magnesium Due to various manufacturers, tablets labeled 70mg are considered to be equivalent 0842 (Given - Provider: Litzy Overton RN)2041 (Given - Provider: Dena Edwards RN) 0807 (Given - Provider: Litzy Dewey RN)2025 (Given - Provider: Dena Edwards RN) 0817 (Given - Provider: Dena Bhatia RN) metoprolol succinate XL (toPROL XL) tab 25 mg 25 mg, Oral, Daily(AM), First dose on Thu06/16/23 at 0900, Until Discontinued, Hold for HR less than 60 or SBP below 100 and notify service if dose is held This med should NOT be Crushed or Chewed. 0900 (Not Given - Provider: Litzy Overton RN - Reason: Parameter(s) Not Met) 0811 (Not Given - Provider: Litzy Dewey RN - Reason: Parameter(s) Not Met) 0818 (Given - Provider: Dena Bhatia RN) senna (Senokot) 2 Tablet (CANCELED) 2 Tablet, Oral, Daily(AM), First dose on Thu06/16/23 at 0900, Until Discontinued, Give until first BM, then Discontinue 0842 (Given - Provider: Litzy Overton RN) senna (Senokot) 2 Tablet 2 Tablet, Oral, Daily(AM), First dose on Thu06/18/23 at 0900, Until Discontinued, Give until first BM, then Discontinue, Post-op 0810 (Not Given - Provider: Litzy Dewey RN - Reason: Refused-Notify Provider - Comment: patient states she is not having trouble having BM's) 0819 (Not Given - Provider: Dena Bhatia RN - Reason: Refused-Notify Provider) sodium chloride 0.9 % flush peripheral chris 3 mL (CANCELED) 3 mL, IV Push, QSHIFT, First dose on Thu06/15/23 at 1700, Until Discontinued, Do not flush if lock, PICC, or central line not in place; IV infusing or unable to flush. 0000 (Not Given - Provider: Mylene Cotto RN - Reason: Parameter(s) Not Met)0800 (Not Given - Provider: Litzy Overton RN - Reason: Other- Please add reason in Comments - Comment: fluids infusing)1600 (Given - Provider: Litzy Overton RN) sodium chloride 0.9 % flush peripheral chris 3 mL (CANCELED) 3 mL, IV Push, QSHIFT, First dose on Thu06/17/23 at 1800, Until Discontinued, Do not flush if lock, PICC, or central line not in place; IV infusing or unable to flush., Post-op 1800 (Given - Provider: Litzy Overton RN) tolterodine LA ER (Detrol LA) cap 4 mg 4 mg, Oral, Daily(AM), First dose on Thu06/16/23 at 0900, Until Discontinued, This med should NOT be Crushed or Chewed 0842 (Given - Provider: Litzy Overton RN) 0807 (Given - Provider: Litzy Dewey, RN) 0818 (Given - Provider: Dena Bhatia, EBONIE) traMADol (Ultram) tab 50 mg 50 mg, Oral, Q6H, First dose on Thu06/16/23 at 0000, Until Discontinued, Hold for Somnolence 0000 (Not Given - Provider: Mylene Cotto RN - Reason: Refused-Notify Provider)0600 (Not Given - Provider: Mylene Cotto RN - Reason: Refused-Notify Provider)1156 (Given - Provider: Litzy Overton RN)1800 (Not Given - Provider: Litzy Overton RN - Reason: Refused-Notify Provider) 0039 (Given - Provider: Dena Edwards RN)0528 (Given - Provider: Dena Edwards RN)1209 (Given - Provider: Litzy Dewey, RN)1747 (Given - Provider: Litzy Dewey, EBONIE)2344 (Given - Provider: Dena Edwards RN) 0607 (Given - Provider: Dena Edwards RN)1144 (Given - Provider: Dena Bhatia, EBONIE) vancomycin (Vancocin) 750 mg in NSS 100 mL ivpb (CANCELED) 750 mg, IV Piggyback, Q12H, 6 doses, First dose on Thu06/16/23 at 0900, Last dose on Thu06/18/23 at 2100 0848 (New Bag - Provider: Litzy Overton RN) vancomycin (Vancocin) 750 mg in NSS 100 mL ivpb (CANCELED) 750 mg, IV Piggyback, Q12H, 10 doses, First dose (after last modification) on Thu06/17/23 at 2100, Last dose on Thu06/22/23 at 0900 2154 (New Bag - Provider: Dena Edwards RN)2257 (Stopped - Provider: Dena L Edwards, RN) 0927 (New Bag - Provider: Litzy Dewey, RN)103 (Stopped - Provider: Litzy Dewey, RN)2030 (New Bag - Provider: Dena Edwards RN)2137 (Stopped - Provider: Dena Edwards RN) 08 (New Bag - Provider: Dena Bhatia, RN)0932 (Stopped - Provider: Dena Bhatia, RN) warfarin check daily dose (PHARMACIST MANAGED) [id number], First dose on Ellie 06/18/23 at 1500, Until Discontinued, Routine, Contact the pharmacy if there is not a warfarin dose entered by 1500 and document with whom it was discussed. 1500 (Order Check Addressed - Provider: Litzy Dewey RN) 1344 (Order Check Addressed - Provider: Dena Bhatia, EBONIE) Warfarin Sodium (Coumadin) tab 10 mg (COMPLETED) 10 mg, Oral, QPM-1999, First dose on Ellie 06/18/23 at 1999, Last dose on Thu06/18/23 at 1999, For 1 day, WASTE INFO: Return packaging and waste medication in zip lock bag to pharmacy - [facility] container. 2025 (Given - Provider: Dena Edwards, EBONIE) Warfarin Sodium (Coumadin) tab 7.5 mg 7.5 mg, Oral, QPM-1999, First dose on Thu06/19/23 at 1999, Last dose on Thu06/19/23 at 1999, For 1 day, WASTE INFO: Return packaging and waste medication in zip lock bag to pharmacy - [facility] container. PRN Medication Order 06/17/2023 06/18/2023 06/19/2023 Acetaminophen (Tylenol) tab 650 mg 650 mg, Oral, Q6H PRN Pain, Mild, Fever >38C(100.5F), Starting on Thu06/21/23 at 0000, Until Thu06/19/23 at 1915, Maximum of 4 grams (4000 mg) per day. Bisacodyl (Dulcolax) supp 10 mg 10 mg, Rectal, DAILY PRN Constipation, Starting on 06/17/23 at 1716, Until Thu06/19/23 at 1915, For 1 dose, DO NOT GIVE IF GIVING FLEET BISACODYL ENEMA, Post-op chlorhexidine gluconate 0.05% (IRRISEPT) irrigation (CANCELED) ONCE PRN INTRA PROCEDURE, Starting on Thu06/17/23 at 1555, Until Thu06/17/23 at 1647, Intra-Op 1555 (Given - Provider: Lindsey Davidson, ) dextrose 50 % inj 25 mL 25 mL, IV Push, PRN Hypoglycemia, Other, For blood glucose 54 - 69 mg/dL or 70 - 100 mg/dL with symptoms AND patient is unresponsive, NPO, OR unable to swallow, Starting on Thu06/15/23 at 1716, Until Thu06/19/23 at 1915, Administer IV. Recheck blood glucose after 15 minutes. Notify provider. dextrose 50 % inj 50 mL 50 mL, IV Push, PRN Hypoglycemia, Other, For blood glucose below 54 mg/dL AND patient unresponsive, NPO, OR unable to swallow, Starting on Thu06/15/23 at 1716, Until Thu06/19/23 at 1915, Administer IV. Recheck blood glucose in 15 minutes. Notify provider. diphenhydrAMINE (Benadryl) cap 25 mg 25 mg, Oral, Q6H PRN Itching, Starting on Thu06/17/23 at 1716, Until Thu06/19/23 at 1915, DO NOT GIVE IF GIVING IV BENADRYL, Post-op diphenhydrAMINE (Benadryl) inj 50 mg 50 mg, IV Push, Q6H PRN Itching, Starting on Thu06/17/23 at 1716, Until Thu06/19/23 at 1915, Give if cannot take PO Diphenhydramine or PO not effective. DO NOT GIVE IF GIVING ORAL BENADRYL, Post-op fentaNYL (PF) inj 50 mcg (CANCELED) 50 mcg, IV Push, Q5 MIN PRN Pain, Severe, Starting on Thu06/17/23 at 1659, Until Thu06/17/23 at 1810, For 3 doses, Administer up to 100 mcg total in 24 hours. ADMINISTER ONLY IN PACU When given IV Push its recommended that the dose be given over 3 to 5 minutes., PACU 1703 (Given - Provider: Nohelia Rausch RN)1719 (Given - Provider: Nohelia Rausch RN) fleet bisacodyl (Bisacodyl) enema 1 Enema 1 Enema, Rectal, DAILY PRN Constipation, Starting on Thu06/17/23 at 1716, Until Thu06/19/23 at 191, Give if oral Bisacodyl not effective DO NOT GIVE IF GIVING BISACODYL SUPPOSITORY, Post-op glucagon (Glucagen) inj 1 mg 1 mg, Intramuscular, PRN Hypoglycemia, Other, If patient is unresponsive, or NPO and has no IV access, Starting on Thu06/15/23 at 1716, Until Thu06/19/23 at 191, NPO and no IV access with either 1) blood glucose less than 100 mg/dL and symptomatic OR 2) blood glucose less than 70 mg/dL and asymptomatic Glucose (Glutose 15) 40 % gel 15 g of glucose 15 g of glucose, Oral, PRN Hypoglycemia (low sugar), Other, For blood glucose 54 - 69 mg/dL or 70 - 100 mg/dL with symptoms AND patient alert WITH difficulty chewing/swallowing, Starting on Thu06/15/23 at 1716, Until Thu06/19/23 at 191, Administer gel. Recheck blood glucose after 15 minutes. Notify provider. 37.5 gram tube = 15 grams glucose = 1 each Glucose (Glutose 15) 40 % gel 30 g of glucose 30 g of glucose, Oral, PRN Hypoglycemia (low sugar), Other, For blood glucose below 54 mg/dL AND patient alert WITH difficulty chewing/swallowing, Starting on Thu06/15/23 at 1716, Until Thu06/19/23 at 191, Administer gel. Recheck blood glucose after 15 minutes. Notify provider. 37.5 gram tube = 15 grams glucose = 1 each glucose chew tab 16 g 16 g, Oral, PRN Hypoglycemia, Other, For blood glucose 54 - 69 mg/dL or 70 - 100 mg/dL with symptoms and patient alert without difficulty chewing/swallowing., Starting on Thu06/15/23 at 1716, Until Thu06/19/23 at 191 house antacid (Mi-Acid II) oral susp 30 mL 30 mL, Oral, DAILY PRN Indigestion, Starting on Thu06/17/23 at 1716, Until Thu06/19/23 at 191, SHAKE WELL, Post-op HYDROmorphone (Dilaudid) inj 0.5 mg 0.5 mg, IV Push, Q2H PRN Pain, Breakthrough, Other, Severe Pain unable to take oral oxycodone, Starting on Thu06/15/23 at 1559, Until Thu06/19/23 at 1915, Only give if patient not on GEAR HOBBER or if on GEAR HOBBER only at MD direction or if patient is unable to take oral oxycodone. melatonin tab 3 mg 3 mg, Oral, QHS PRN Insomnia, Sleep, Starting on Thu06/17/23 at 1716, Until Thu06/19/23 at 1915, Post-op Menthol (Clinton) cough drop 1 Lozenge 1 Lozenge, Oral, Q2H PRN Sore throat, Starting on Thu06/17/23 at 1716, Until Thu06/19/23 at 1915, Post-op 2200 (Given - Provider: Dena Edwards RN) milk of magnesia (Mom) oral susp 30 mL 30 mL, Oral, DAILY PRN Constipation, Starting on Thu06/17/23 at 1716, Until Thu06/19/23 at 1915, Post-op naloxone (Narcan) 0.4 MG/ML inj 0.08 mg 0.08 mg, IV Push, PRN Other, PRN for Respiratory Rate <8, Starting on Thu06/15/23 at 1559, Until Thu06/19/23 at 1915, Stop all pain medications, and call 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 May repeat 0.04 mg IV push q1 minute as needed naloxone (Narcan) 0.4 MG/ML inj 0.08 mg 0.08 mg, IV Push, PRN Other, PRN for Respiratory Rate <8, Starting on Thu06/17/23 at 1716, Until Thu06/19/23 at 1915, Stop all pain medications, and call 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 May repeat 0.04 mg IV push q1 minute as needed, Post-op ondansetron (Zofran) inj 4 mg 4 mg, IV Push, Q6H PRN Nausea, Starting on Thu06/17/23 at 1716, Until Thu06/19/23 at 1915, Give if cannot take PO Ondansetron or PO not effective. DO NOT GIVE IF GIVING ORAL ONDANSETRON, Post-op ondansetron (Zofran) tab 4 mg 4 mg, Oral, Q6H PRN Nausea, Starting on Thu06/17/23 at 1716, Until Thu06/19/23 at 1915, DO NOT GIVE IF GIVING IV ONDANSETRON, Post-op oxyCODONE (Oxy IR) tab 10 mg 10 mg, Oral, Q4H PRN Pain, Severe, Starting on Thu06/17/23 at 1716, Until Thu06/19/23 at 1915, Hold for somnolence or respiratory rate less than 10, Post-op 1752 (Given - Provider: Nohelia Rausch, EBONIE) 1612 (Given - Provider: Litzy Dewey RN) oxyCODONE (Oxy IR) tab 5 mg 5 mg, Oral, Q4H PRN Pain, Moderate, Starting on Thu06/15/23 at 1559, Until Thu06/19/23 at 1915, Hold for somnolence or respiratory rate less than 10 220 (Given - Provider: Dena Edwards RN) documented in this encounter Advance Directives Latest [...] Advance Directives occurred with: Patient Care Teams Backroom Associate Relationship Specialty Start Date End Date Collette Rich III, MD [address] [facility] [place] [address] PCP - General Family Medicine 09/10/18 documented as of this encounter
--- OUTSIDE RECORDS SUMMARY | 2023-07-14 14:35 | External Medical Summary ---
Author Name Unknown Address Unknown Organization [id number]:[facility] - [address] [place] [id number] Laboratory Report Ordering Provider Test Date Status ALMA PORTILLO 06/19/2023 04:18:00 Final Warfarin Therapy
INR: 2 .0-3.0 conventional anticoagulation
INR: 2.5- 3.5 high intensity anticoagulation Observation Date Value Abnormality Reference (Units ) Status PT 06/19/2023 04:18:00 14.5 11.6-15.2 (seconds) Final INR 06/19/2023 04:18:00 1.1 0.8-1.2 Final Performing Location [facility] - [address] [place] [id number]
--- OUTSIDE RECORDS SUMMARY | 2023-07-14 14:35 | External Medical Summary ---
Author Name Unknown Address Unknown Organization K1F:LABORATORY [facility] - [facility] [address] [place] [place] [address] Laboratory Report Ordering Provider Test Date Status ALMA PORTILLO 06/19/2023 04:18:00 Final Observation Date Value Abnormality Reference (Units ) Status WBC, Total 06/19/2023 04:18:00 5.20 4.00-10.80 (K/uL) Final RBC 06/19/2023 04:18:00 2.60 3.85-5.15 (M/uL) Final Hemoglobin 06/19/2023 04:18:00 7.7 Below low normal 12.0-15.3 (g/dL) Final HCT 06/19/2023 04:18:00 24.6 Below low normal 36.0-45.2 (%) Final MCV 06/19/2023 04:18:00 94.6 81.5-97.5 (fL) Final MCH 06/19/2023 04:18:00 29.6 27.0-34.0 (pg) Final MCHC 06/19/2023 04:18:00 31.3 32.0-36.0 (g/dL) Final RDW 06/19/2023 04:18:00 14.7 11.5-15.5 (%) Final Platelets 06/19/2023 04:18:00 287 140-400 (K/uL) Final MPV 06/19/2023 04:18:00 9.8 6.6-11.1 (fL) Final Nucleated erythrocytes/100 leukocytes [Ratio] in Blood by Automated count 06/19/2023 04:18:00 0 <=0 (/100 WBCs) Final Performing Location LABORATORY [facility] - [address] [place] [address]
--- OUTSIDE RECORDS SUMMARY | 2023-07-14 14:35 | External Medical Summary ---
Author Name Unknown Address Unknown Organization K1F:LABORATORY [facility] - [address] [place] [address] Laboratory Report Ordering Provider Test Date Status ALMA PORTILLO 06/19/2023 04:18:00 Final Observation Date Value Abnormality Reference (Units ) Status CRP, low-sensitivity 06/19/2023 04:18:00 24 Above high normal <=5 (mg/L) Final Performing Location LABORATORY [facility] - [address] [place] [address]
--- OUTSIDE RECORDS SUMMARY | 2023-07-14 14:35 | External Medical Summary ---
Author Name Unknown Address Unknown Organization K1F:LABORATORY [facility] - [address] [facility] [place] [address] Laboratory Report Ordering Provider Test Date Status LINDSEYOPALMICHELLEJUAN 06/19/2023 04:18:00 Final Observation Date Value Abnormality Reference (Units ) Status SYNC LEUKOCYTES IN BLOOD BY AUTOMATED COUNT 06/19/2023 04:18:00 5.20 4.00-10.80 (K/uL) Final Segs 06/19/2023 04:18:00 67.3 40.0-75.0 (%) Final Lymphs % 06/19/2023 04:18:00 16.3 Below low normal 18.0-42.0 (%) Final Monos 06/19/2023 04:18:00 10.2 1.0-11.0 (%) Final Eosinophils 06/19/2023 04:18:00 5.6 0.0-6.0 (%) Final Basos 06/19/2023 04:18:00 0.4 0.0-2.0 (%) Final Immature Granulocyte, Percent 06/19/2023 04:18:00 0.2 0.0-2.0 (%) Final Absolute Segs 06/19/2023 04:18:00 3.50 1.80-7.70 (K/uL) Final Lymphs, absolute 06/19/2023 04:18:00 0.85 Below low normal 1.00-4.80 (K/ul) Final Monos, Abs 06/19/2023 04:18:00 0.53 0.00-1.10 (K/uL) Final Eos, Abs 06/19/2023 04:18:00 0.29 0.00-0.70 (K/uL) Final Basos, Abs 06/19/2023 04:18:00 0.02 0.00-0.20 (K/uL) Final Immature Granulocytes, Number 06/19/2023 04:18:00 0.01 0.00-0.20 (K/uL) Final Performing Location LABORATORY [facility] - [address] [place], [place] [address] [place] [address]
--- OUTSIDE RECORDS SUMMARY | 2023-07-14 14:35 | External Medical Summary ---
Author Name Unknown Address Unknown Organization : Laboratory Report Ordering Provider Test Date Status ALMA PORTILLO 06/18/2023 16:33:29 Final Observation Date Value Abnormality Reference (Units ) Status Glucose Point of Care 06/18/2023 16:33:29 123 Above high normal 70-120 (mg/dL) Final Performing Location
--- OUTSIDE RECORDS SUMMARY | 2023-07-14 14:36 | External Medical Summary ---
Author Name Unknown Address Unknown Organization K1F:LABORATORY [facility] - [facility] [address] [place] [address] Laboratory Report Ordering Provider Test Date Status ISAEL VELAZQUEZ 06/17/2023 04:52:00 Final Observation Date Value Abnormality Reference (Units ) Status WBC, Total 06/17/2023 04:52:00 5.01 4.00-10.80 (K/uL) Final RBC 06/17/2023 04:52:00 3.18 3.85-5.15 (M/uL) Final Hemoglobin 06/17/2023 04:52:00 9.1 Below low normal 12.0-15.3 (g/dL) Final HCT 06/17/2023 04:52:00 29.6 Below low normal 36.0-45.2 (%) Final MCV 06/17/2023 04:52:00 93.1 81.5-97.5 (fL) Final MCH 06/17/2023 04:52:00 28.6 27.0-34.0 (pg) Final MCHC 06/17/2023 04:52:00 30.7 32.0-36.0 (g/dL) Final RDW 06/17/2023 04:52:00 14.5 11.5-15.5 (%) Final Platelets 06/17/2023 04:52:00 320 140-400 (K/uL) Final MPV 06/17/2023 04:52:00 9.3 6.6-11.1 (fL) Final Nucleated erythrocytes/100 leukocytes [Ratio] in Blood by Automated count 06/17/2023 04:52:00 0 <=0 (/100 WBCs) Final Performing Location LABORATORY [facility] - [address] [place] [address]
--- OUTSIDE RECORDS SUMMARY | 2023-07-14 14:36 | External Medical Summary ---
Author Name Unknown Address Unknown Organization K1F:LABORATORY [facility] - [address] [place] [address] Laboratory Report Ordering Provider Test Date Status ISAEL VELAZQUEZ 06/16/2023 04:23:00 Final Warfarin Therapy
INR: 2 .0-3.0 conventional anticoagulation
INR: 2.5- 3.5 high intensity anticoagulation Observation Date Value Abnormality Reference (Units ) Status PT 06/16/2023 04:23:00 30.4 Above high normal 11 .6-15.2 (seconds) Final INR 06/16/2023 04:23:00 2.9 Above high normal 0. 8-1.2 Final Performing Location LABORATORY [facility] - [address] [place] [address]
--- OUTSIDE RECORDS SUMMARY | 2023-07-14 14:36 | External Medical Summary ---
Author Name Unknown Address Unknown Organization K1F:LABORATORY [facility] - [address] [place] [address] [address] [place] [address] Laboratory Report Ordering Provider Test Date Status ISAEL VELAZQUEZ 06/16/2023 04:23:00 Final Observation Date Value Abnormality Reference (Units ) Status WBC, Total 06/16/2023 04:23:00 4.81 4.00-10.80 (K/uL) Final RBC 06/16/2023 04:23:00 3.01 3.85-5.15 (M/uL) Final Hemoglobin 06/16/2023 04:23:00 8.9 Below low normal 12.0-15.3 (g/dL) Final HCT 06/16/2023 04:23:00 27.6 Below low normal 36.0-45.2 (%) Final MCV 06/16/2023 04:23:00 91.7 81.5-97.5 (fL) Final MCH 06/16/2023 04:23:00 29.6 27.0-34.0 (pg) Final MCHC 06/16/2023 04:23:00 32.2 32.0-36.0 (g/dL) Final RDW 06/16/2023 04:23:00 14.4 11.5-15.5 (%) Final Platelets 06/16/2023 04:23:00 327 140-400 (K/uL) Final MPV 06/16/2023 04:23:00 9.4 6.6-11.1 (fL) Final Nucleated erythrocytes/100 leukocytes [Ratio] in Blood by Automated count 06/16/2023 04:23:00 0 <=0 (/100 WBCs) Final Performing Location LABORATORY [facility] - [address] [place] [address]
--- OUTSIDE RECORDS SUMMARY | 2023-07-14 14:36 | External Medical Summary ---
Author Name Unknown Address Unknown Organization : Laboratory Report Ordering Provider Test Date Status ALMA PORTILLO 06/17/2023 17:14:17 Final Observation Date Value Abnormality Reference (Units ) Status Glucose Point of Care 06/17/2023 17:14:17 135 Above high normal 70-120 (mg/dL) Final Performing Location
--- OUTSIDE RECORDS SUMMARY | 2023-07-14 14:36 | External Medical Summary ---
Author Name Unknown Address Unknown Organization K1F:LABORATORY [facility] - [facility] [address] [place] [address] Laboratory Report Ordering Provider Test Date Status ALMA PORTILLO 06/18/2023 05:41:00 Final Observation Date Value Abnormality Reference (Units ) Status WBC, Total 06/18/2023 05:41:00 7.59 4.00-10.80 (K/uL) Final RBC 06/18/2023 05:41:00 2.75 3.85-5.15 (M/uL) Final Hemoglobin 06/18/2023 05:41:00 7.9 Below low normal 12.0-15.3 (g/dL) Final HCT 06/18/2023 05:41:00 25.9 Below low normal 36.0-45.2 (%) Final MCV 06/18/2023 05:41:00 94.2 81.5-97.5 (fL) Final MCH 06/18/2023 05:41:00 28.7 27.0-34.0 (pg) Final MCHC 06/18/2023 05:41:00 30.5 32.0-36.0 (g/dL) Final RDW 06/18/2023 05:41:00 14.6 11.5-15.5 (%) Final Platelets 06/18/2023 05:41:00 305 140-400 (K/uL) Final MPV 06/18/2023 05:41:00 9.0 6.6-11.1 (fL) Final Nucleated erythrocytes/100 leukocytes [Ratio] in Blood by Automated count 06/18/2023 05:41:00 0 <=0 (/100 WBCs) Final Performing Location LABORATORY [facility] - [address] [place] [address]
--- OUTSIDE RECORDS SUMMARY | 2023-07-14 14:36 | External Medical Summary ---
Author Name Unknown Address Unknown Organization K1F:[facility] [address] [facility] [place] [address] Laboratory Report Ordering Provider Test Date Status ISAEL VELAZQUEZ 06/18/2023 04:28:00 Final Observation Date Value Abnormality Reference (Units ) Status BUN 06/18/2023 04:28:00 10 6-20 (mg/dL) Final Creatinine 06/18/2023 04:28:00 0.7 0.5-1.0 (mg/dL) Final Glomerular filtration rate/1.73 sq M.predicted [Volume Rate/Area] in Serum, Plasma or Blood by Creatinine-based formula (CKD-EPI) 06/18/2023 04:28:00 88 >=60 (mL/min) Final eGFR is calculated based on the CKD-EPI 2020 equation SODIUM 06/18/2023 04:28:00 138 135-146 (m mol/L) Final Potassium 06/18/2023 04:28:00 4.5 3.5-5.1 (m mol/L) Final Cl 06/18/2023 04:28:00 102 98-107 (mm ol/L) Final CO2 06/18/2023 04:28:00 24 22-32 (mmo l/L) Final Anion gap 06/18/2023 04:28:00 12 7-15 (mmol /L) Final Glucose 06/18/2023 04:28:00 102 70-120 (mg /dL) Final Albumin 06/18/2023 04:28:00 3.3 Below low normal 3.8 -5.0 (g/dL) Final AST (Aspartate aminotransferase) 06/18/2023 04:28:00 35 10-35 (U/L) Fin al Result may be falsely elevat ed due to hemolysis. Alk Phos 06/18/2023 04:28:00 96 35-130 (U/ L) Final Bilirubin, Total 06/18/2023 04:28:00 0.4 <=1 .2 (mg/dL) Final Calcium 06/18/2023 04:28:00 9.1 8.4-10.2 ( mg/dL) Final Protein 06/18/2023 04:28:00 6.6 6.0-8.3 (g /dL) Final ALT (Alanine aminotransferase) 06/18/2023 04:28:00 14 10-35 (U/L) Final Performing Location LABORATORY [facility] - [facility] [place] [address]
--- OUTSIDE RECORDS SUMMARY | 2023-07-14 14:36 | External Medical Summary ---
Author Name Unknown Address Unknown Organization K1F:LABORATORY [facility] - [address] [place] [address] Laboratory Report Ordering Provider Test Date Status KIANNA SANCHEZ 06/16/2023 17:46:00 Final Warfarin Therapy
INR: 2 .0-3.0 conventional anticoagulation
INR: 2.5- 3.5 high intensity anticoagulation Observation Date Value Abnormality Reference (Units ) Status PT 06/16/2023 17:46:00 24.9 Above high normal 11 .6-15.2 (seconds) Final INR 06/16/2023 17:46:00 2.2 Above high normal 0. 8-1.2 Final Performing Location LABORATORY [facility] - [address] [place] [address]
--- OUTSIDE RECORDS SUMMARY | 2023-07-14 14:36 | External Medical Summary ---
Author Name Unknown Address Unknown Organization : Laboratory Report Ordering Provider Test Date Status ALMA PORTILLO 06/17/2023 21:31:35 Final Observation Date Value Abnormality Reference (Units ) Status Glucose Point of Care 06/17/2023 21:31:35 154 Above high normal 70-120 (mg/dL) Final Performing Location
--- OUTSIDE RECORDS SUMMARY | 2023-07-14 14:36 | External Medical Summary ---
Author Name Unknown Address Unknown Organization : Laboratory Report Ordering Provider Test Date Status ALMA PORTILLO 06/16/2023 07:20:13 Final Observation Date Value Abnormality Reference (Units ) Status Glucose Point of Care 06/16/2023 07:20:13 111 70-120 (mg/dL) Final Performing Location
--- OUTSIDE RECORDS SUMMARY | 2023-07-14 14:36 | External Medical Summary ---
Author Name Unknown Address Unknown Organization K1F:LABORATORY [facility] - [address] [place] [address] Laboratory Report Ordering Provider Test Date Status ALMA PORTILLO 06/17/2023 04:52:00 Final Observation Date Value Abnormality Reference (Units ) Status Vancomycin, level 06/17/2023 04:52:00 19.8 10 .0-40.0 (ug/mL) Final Performing Location LABORATORY [facility] - [address] [place] [address]
--- OUTSIDE RECORDS SUMMARY | 2023-07-14 14:36 | External Medical Summary | Summary of Care ---
Author Name Unknown Organization [facility] Address [address] [facility] [place] [address] Phone [phone] Care Team Providers Care Claim Attorney Name Role Phone Hilario ANDRADE MD, Shiva Kebede Primary Care Provider [phone] Encounter Details Date Type Department Care Team (Late st Contact Info) Description 06/16/2023 Population Health External Data Unspecified Department Allergies Active Allergy Reactions Criticality Noted Date Comments Bee Venom Edema Other 01/10/2016 Lisinopril Cough 09/04/2016 documented as of this encounter (statuses as of 06/16/2023) Medications Medication Sig Dispensed Refills Start Date End Date Status oxygen IN GAS 3 LPM bled through CPAP 14 cwp 1 Each 0 0 Suspended Aspirin EC 81 MG Oral Tablet Delayed Release Take by mouth 1 Tablet in the morning. 0 2 Suspended Additional Information Magnesium Chloride 64 MG Oral Tablet Delayed Release (Mag-64) Take 1 Tablet by mouth in the morning and 1 Tablet before bedtime. 0 2 Suspended Atorvastatin Calcium 80 MG Oral Tablet (Lipitor) TAKE 1 TABLET BY MOUTH EVERY DAY 90 Tablet 3 2 Suspended Additional Information Warfarin Sodium 5 MG Oral Tablet (Coumadin)Indication s:Recent cerebrovascular accident (CVA),Paroxysmal atrial fibrillation (HCC) TAKE 1 1/2 TABLETS (7.5mg) BY MOUTH FRIDAYS AND 1 TABLET (5mg) ALL OTHER EVENINGS OR DIRECTED BY ANTICOAG CLINIC. 105 Tablet 3 2 Suspended Additional Information Multi Vitamin Daily Oral Tablet 0 Suspended Ezetimibe 10 MG Oral Tablet (Zetia)Indications:R ight internal carotid occlusion TAKE 1 TABLET BY MOUTH EVERY DAY 90 Tablet 3 3 Suspended Additional Information Ferrous Sulfate 325 (65 Fe) MG Oral Tablet Take 1 Tablet by mouth every other day. 0 Suspended Furosemide 40 MG Oral Tablet (Lasix) TAKE 1 TABLET BY MOUTH EVERY MORNING 30 Tablet 6 3 Suspended Additional Information DULoxetine HCl 60 MG Oral Capsule Delayed Release Particles (Cymbalta) TAKE 2 CAPSULES BY MOUTH EVERY MORNING 180 Capsule 2 3 Suspended Additional Information Myrbetriq 50 MG Oral Tablet Extended Release 24 Hour (Mirabegron ER) Take 1 Tablet by mouth in the morning. 90 Tablet 3 3 Suspended Additional Information Losartan Potassium 100 MG Oral Tablet (Cozaar) Take 1 Tablet by mouth in the morning. 90 Tablet 1 3 Suspended Additional Information Cyanocobalamin 1000 MCG Oral Tablet (Cyanocobalamin) Take 1 Tablet by mouth in the morning. 100 Tablet 3 3 Suspended Additional Information metFORMIN HCl 500 MG Oral Tablet (Glucophage) TAKE 2 TABLETS BY MOUTH TWO TIMES DAILY WITH MORNING AND EVENING MEALS. 360 Tablet 1 3 Suspended Additional Information amLODIPine Besylate 5 MG Oral Tablet (Norvasc) Take 1 Tablet by mouth in the morning. 34 Tablet 11 3 Suspended Additional Information CPAP every night at bedtime. 0 Suspended oxyCODONE-Acetaminop hen 5-325 MG Oral Tablet (Percocet) Take 1 Tablet by mouth every 4 hours as needed for Pain, Severe. 30 Tablet 0 3 Suspended Additional Information Cephalexin 500 MG Oral Capsule Take 1 Capsule by mouth in the morning and 1 Capsule at noon and 1 Capsule in the evening and 1 Capsule before bedtime. 28 Capsule 0 3 Suspended Additional Information oxyCODONE-Acetaminop hen 5-325 MG Oral Tablet (Percocet)Indication s:Status post total right knee replacement Take 1 Tablet by mouth every 6 hours as needed for Pain, Severe. 20 Tablet 0 3 Suspended Additional Information Metoprolol Succinate ER 25 MG Oral Tablet Extended Release 24 Hour (toPROL XL)Indications:Parox ysmal atrial fibrillation (HCC) Take 1 Tablet by mouth in the morning. 90 Tablet 3 3 Suspended Additional Information Solifenacin Succinate 5 MG Oral Tablet (VESIcare) Take 1 Tablet by mouth in the morning. 30 Tablet 0 3 Suspended Additional Information Amiodarone HCl 200 MG Oral Tablet (Cordarone)Indicatio ns:PAF (paroxysmal atrial fibrillation) (HCC) TAKE 1 TABLET BY MOUTH EVERY MORNING 90 Tablet 3 3 Suspended Additional Information documented as of this encounter (statuses as of 06/16/2023) Active Problems Problem Noted Date Diagnosed Date Wound dehiscence, surgical 06/15/2023 Postoperative wound infection 06/15/2023 Other iron deficiency anemias 05/22/2023 Postoperative anemia due to acute blood loss History of total knee arthroplasty, right 2022 Alcohol abuse 05/11/2023 Atherosclerosis of [place] co ronary artery without angina pectoris 09/10/2022 [...] as of this encounter (statuses as of 06/16/2023) Resolved Problems Problem Noted Date Diagnosed Date Resolved Date Atherosclerotic heart diseas e of [place] coronary artery with other forms of angina [...] as of this encounter (statuses as of 06/16/2023) Immunizations Name Administration Dates Next Due COVID-19 mRNA, LNP-s, No Pre serve, 2-Dose Series ([employer]) 05/16/2021,09/23/2020,08/26/2020 Covid-19, Mrna, Lnp-s, Pf, B ivalent, [...] Description 06/29/2023 11:00 AM EST Laboratory Laboratory, [facility] [address] [phone] GambinoWilfredo villalpando [address] [place] [address] 06/30/2023 6:15 AM EST Anticoagulation Pharmacy Call Center [phone] [facility] [place] [address] [facility] [address] [facility] [place] [address] 07/02/2023 11:00 AM EST Office Visit Orthopaedics [facility] [address] [facility] [place] [address] Balta Hyde PA-C [address] [place] [address] 09/30/2023 9:20 AM EDT Office Visit Family Practice [facility] [address] [place] [address] Shiva Rich III, MD [address] [facility] [place] [address] 10/01/2023 3:15 PM EDT Office Visit Hematology/Oncology [facility] [address] [place] [address] Efraín Leone MD [address] [facility] [place] [address] 11/12/2023 11:20 AM EDT Office Visit Dermatology [facility] [address] [place] [address] Margarita Figueredo PA-C [address] [facility] [place] [phone] 02/25/2024 9:30 AM EDT Imaging Radiology [address] [facility] [place] [address] 04/21/2024 10:30 AM EDT Office Visit Sleep Disorders Ctr [facility] [address] [facility] [place] [phone] Viktoriya White CRNP [address] [facility] [place] [address] Scheduled Procedures Name Priority Associated Diagnoses Date/Ti [...] 08/0 07/2022, 10/06/2022, Additional history exists GFR 06/16/2024 06/16/2023, 05/21, 05/12/2023, Additional history exists DTaP,Tdap,and Td Vaccines (2 [...] this encounter Medical Devices Implanted Type Area Chief Analytics Officer Device Identifier Shelf Expiration Date Model / Serial / Lot Knee X3 Ins Pos Cs Sz4 11 - Sn/A - [id number] Implanted:Qty: 1 on 05/11/2023 by Forrest Davidson, DO at OR [facility] Right: Knee FRANNIE : ORTHOPAEDICS 10/16/2027 [id number] / N/A / [id number] documented as of this encounter Advance Directives Latest Code Status on File Code Status Date Activated Date Inactivated Comments Full Code 06/15/2023 4:16 PM This orde r reflects the patients wishes and were consensually agreed upon. Question Answer Comments Discussion of Advance Directives occurred with: Patient Code Status History Code Status Date Activated Date Inactivated Comments Full Code 05/11/2023 4:30 PM 05/12/2023 8:11 PM Thi s order reflects the patients wishes and were consensually agreed upon. Question Answer Comments Discussion of Advance Directives occurred with: Patient Care Teams Claim Attorney Relationship Specialty Start Date End Date Shiva Rich III, MD [address] [place] [address] PCP - General Family Medicine 09/10/18 documented as of this encounter
--- OUTSIDE RECORDS SUMMARY | 2023-07-14 14:36 | External Medical Summary ---
Author Name Unknown Address Unknown Organization : Laboratory Report Ordering Provider Test Date Status ALMA PORTILLO 06/16/2023 16:37:26 Final Observation Date Value Abnormality Reference (Units ) Status Glucose Point of Care 06/16/2023 16:37:26 111 70-120 (mg/dL) Final Performing Location
--- OUTSIDE RECORDS SUMMARY | 2023-07-14 14:36 | External Medical Summary ---
Author Name Unknown Address Unknown Organization : Laboratory Report Ordering Provider Test Date Status ALMA PORTILLO 06/17/2023 11:38:36 Final Observation Date Value Abnormality Reference (Units ) Status Glucose Point of Care 06/17/2023 11:38:36 111 70-120 (mg/dL) Final Performing Location
--- OUTSIDE RECORDS SUMMARY | 2023-07-14 14:36 | External Medical Summary ---
Author Name Unknown Address Unknown Organization K1F:LABORATORY [facility] - [address] [place] [address] Laboratory Report Ordering Provider Test Date Status ALMA PORTILLO 06/18/2023 04:28:00 Final Warfarin Therapy
INR: 2 .0-3.0 conventional anticoagulation
INR: 2.5- 3.5 high intensity anticoagulation Observation Date Value Abnormality Reference (Units ) Status PT 06/18/2023 04:28:00 15.2 11.6-15.2 (seconds) Final INR 06/18/2023 04:28:00 1.2 0.8-1.2 Final Performing Location LABORATORY [facility] - [address] [place] [address]
--- OUTSIDE RECORDS SUMMARY | 2023-07-14 14:36 | External Medical Summary ---
Author Name Unknown Address Unknown Organization : Laboratory Report Ordering Provider Test Date Status ALMA PORTILLO 06/16/2023 11:18:15 Final Observation Date Value Abnormality Reference (Units ) Status Glucose Point of Care 06/16/2023 11:18:15 135 Above high normal 70-120 (mg/dL) Final Performing Location
--- OUTSIDE RECORDS SUMMARY | 2023-07-14 14:36 | External Medical Summary ---
Author Name Unknown Address Unknown Organization : Laboratory Report Ordering Provider Test Date Status ALMA PORTILLO 06/17/2023 07:19:46 Final Observation Date Value Abnormality Reference (Units ) Status Glucose Point of Care 06/17/2023 07:19:46 128 Above high normal 70-120 (mg/dL) Final Performing Location
--- OUTSIDE RECORDS SUMMARY | 2023-07-14 14:36 | External Medical Summary ---
Author Name Unknown Address Unknown Organization K1F:[facility]ATORY [facility] [address] [facility] [place] [address] Laboratory Report Ordering Provider Test Date Status ISAEL VELAZQUEZ 06/16/2023 04:23:00 Final Observation Date Value Abnormality Reference (Units ) Status BUN 06/16/2023 04:23:00 16 6-20 (mg/dL) Final Creatinine 06/16/2023 04:23:00 0.9 0.5-1.0 (mg/dL) Final Glomerular filtration rate/1.73 sq M.predicted [Volume Rate/Area] in Serum, Plasma or Blood by Creatinine-based formula (CKD-EPI) 06/16/2023 04:23:00 75 >=60 (mL/min) Final eGFR is calculated based on the CKD-EPI 2020 equation SODIUM 06/16/2023 04:23:00 138 135-146 (m mol/L) Final Potassium 06/16/2023 04:23:00 3.9 3.5-5.1 (m mol/L) Final Cl 06/16/2023 04:23:00 100 98-107 (mm ol/L) Final CO2 06/16/2023 04:23:00 27 22-32 (mmo l/L) Final Anion gap 06/16/2023 04:23:00 11 7-15 (mmol /L) Final Glucose 06/16/2023 04:23:00 106 70-120 (mg /dL) Final Albumin 06/16/2023 04:23:00 3.5 Below low normal 3.8 -5.0 (g/dL) Final AST (Aspartate aminotransferase) 06/16/2023 04:23:00 24 10-35 (U/L) Fin al Alk Phos 06/16/2023 04:23:00 108 35-130 (U/ L) Final Bilirubin, Total 06/16/2023 04:23:00 0.3 <=1 .2 (mg/dL) Final Calcium 06/16/2023 04:23:00 9.4 8.4-10.2 ( mg/dL) Final Protein 06/16/2023 04:23:00 6.7 6.0-8.3 (g /dL) Final ALT (Alanine aminotransferase) 06/16/2023 04:23:00 24 10-35 (U/L) Fernando jenkins Performing Location LABORATORY [facility] - [facility] [place] [address] [place] [address]
--- OUTSIDE RECORDS SUMMARY | 2023-07-14 14:36 | External Medical Summary ---
Author Name Unknown Address Unknown Organization K1F:LABORATORY [facility] - [address] [place] [address] Laboratory Report Ordering Provider Test Date Status ALMA PORTILLO 06/17/2023 07:09:00 Final Warfarin Therapy
INR: 2 .0-3.0 conventional anticoagulation
INR: 2.5- 3.5 high intensity anticoagulation Observation Date Value Abnormality Reference (Units ) Status PT 06/17/2023 07:09:00 17.6 Above high normal 11 .6-15.2 (seconds) Final INR 06/17/2023 07:09:00 1.4 Above high normal 0. 8-1.2 Final Performing Location LABORATORY [facility] - [address] [place] [address]
--- OUTSIDE RECORDS SUMMARY | 2023-07-14 14:36 | External Medical Summary ---
Author Name Unknown Address Unknown Organization : Laboratory Report Ordering Provider Test Date Status ALMA PORTILLO 06/18/2023 07:49:50 Final Observation Date Value Abnormality Reference (Units ) Status Glucose Point of Care 06/18/2023 07:49:50 108 70-120 (mg/dL) Final Performing Location
--- OUTSIDE RECORDS SUMMARY | 2023-07-14 14:36 | External Medical Summary ---
Author Name Unknown Address Unknown Organization K1F:LABORATORY [facility] [address] [facility] [place] [address] Laboratory Report Ordering Provider Test Date Status ALMA PORTILLO 06/18/2023 05:41:00 Final Observation Date Value Abnormality Reference (Units ) Status SYNC LEUKOCYTES IN BLOOD BY AUTOMATED COUNT 06/18/2023 05:41:00 7.59 4.00-10.80 (K/uL) Final Segs 06/18/2023 05:41:00 71.6 40.0-75.0 (%) Final Lymphs % 06/18/2023 05:41:00 14.9 Below low normal 18.0-42.0 (%) Final Monos 06/18/2023 05:41:00 9.2 1.0-11.0 (%) Final Eosinophils 06/18/2023 05:41:00 3.6 0.0-6.0 (%) Final Basos 06/18/2023 05:41:00 0.4 0.0-2.0 (%) Final Immature Granulocyte, Percent 06/18/2023 05:41:00 0.3 0.0-2.0 (%) Final Absolute Segs 06/18/2023 05:41:00 5.44 1.80-7.70 (K/uL) Final Lymphs, absolute 06/18/2023 05:41:00 1.13 1.00-4.80 (K/ul) Final Monos, Abs 06/18/2023 05:41:00 0.70 0.00-1.10 (K/uL) Final Eos, Abs 06/18/2023 05:41:00 0.27 0.00-0.70 (K/uL) Final Basos, Abs 06/18/2023 05:41:00 0.03 0.00-0.20 (K/uL) Final Immature Granulocytes, Number 06/18/2023 05:41:00 0.02 0.00-0.20 (K/uL) Final Performing Location LABORATORY [facility] - [address] [place] [address]
--- OUTSIDE RECORDS SUMMARY | 2023-07-14 14:36 | External Medical Summary ---
Author Name Unknown Address Unknown Organization K1F:[facility] [address] [facility] [place] [address] Laboratory Report Ordering Provider Test Date Status ISAEL VELAZQUEZ 06/17/2023 04:52:00 Final Observation Date Value Abnormality Reference (Units ) Status BUN 06/17/2023 04:52:00 13 6-20 (mg/dL) Final Creatinine 06/17/2023 04:52:00 0.8 0.5-1.0 (mg/dL) Final Glomerular filtration rate/1.73 sq M.predicted [Volume Rate/Area] in Serum, Plasma or Blood by Creatinine-based formula (CKD-EPI) 06/17/2023 04:52:00 77 >=60 (mL/min) Final eGFR is calculated based on the CKD-EPI 2020 equation SODIUM 06/17/2023 04:52:00 138 135-146 (m mol/L) Final Potassium 06/17/2023 04:52:00 4.1 3.5-5.1 (m mol/L) Final Cl 06/17/2023 04:52:00 102 98-107 (mm ol/L) Final CO2 06/17/2023 04:52:00 27 22-32 (mmo l/L) Final Anion gap 06/17/2023 04:52:00 9 7-15 (mmol /L) Final Glucose 06/17/2023 04:52:00 125 Above high normal 70 -120 (mg/dL) Final Albumin 06/17/2023 04:52:00 3.6 Below low normal 3.8 -5.0 (g/dL) Final AST (Aspartate aminotransferase) 06/17/2023 04:52:00 23 10-35 (U/L) Fin al Alk Phos 06/17/2023 04:52:00 107 35-130 (U/ L) Final Bilirubin, Total 06/17/2023 04:52:00 0.3 <=1 .2 (mg/dL) Final Calcium 06/17/2023 04:52:00 9.4 8.4-10.2 ( mg/dL) Final Protein 06/17/2023 04:52:00 7.0 6.0-8.3 (g /dL) Final ALT (Alanine aminotransferase) 06/17/2023 04:52:00 20 10-35 (U/L) Fernando jenkins Performing Location LABORATORY [facility] - [facility] [address] [place] [address]
--- OUTSIDE RECORDS SUMMARY | 2023-07-14 14:37 | External Medical Summary | Summary of Care ---
Author Name Unknown Organization [facility] Address [address] [facility] [place] [address] Phone [phone] Care Team Providers Care Headend Technician Name Role Phone Hilario ANDRADE MD, Shiva Kebede Primary Care Provider [phone] Reason for Visit * Reason Onset Date Comments Medication Refill 06/09/2023 Encounter Details Date Type Department Care Team (Late st Contact Info) Description 06/09/2023 Refill Urogynecology [facility] [address] [place] [address] Chilo Mcgregor MD [address] [place] [address] Allergies Active Allergy Reactions Criticality Noted Date Comments Bee Venom Edema Other 01/10/2016 Lisinopril Cough 09/04/2016 documented as of this encounter (statuses as of 06/09/2023) Medications Medication Sig Dispensed Refills Start Date [...] 1 Tablet before bedtime. 0 04/29/2022 Active Amiodarone HCl 200 MG Oral Tablet (Cordarone) Take by mouth 1 Tablet in the morning. 34 Tablet 11 05/09/2022 Active Atorvastatin Calcium 80 MG Oral Tablet (Lipitor) TAKE 1 TABLET BY MOUTH EVERY DAY 90 Tablet 3 07/07/2022 Active Warfarin Sodium 5 MG Oral Tablet (Coumadin)Indication s:Recent cerebrovascular accident (CVA),Paroxysmal atrial fibrillation (HCC) TAKE 1 1/2 TABLETS (7.5mg) BY MOUTH FRIDAYS AND 1 TABLET (5mg) ALL OTHER EVENINGS OR DIRECTED BY [facility]. 105 Tablet 3 07/18/2022 Active [...] CPAP every night at bedtime. 0 Active Sennosides 8.6 MG Oral Tablet (Senokot) Take 2 Tablets by mouth in the morning. 140 Tablet 0 05/13/2023 Active oxyCODONE-Acetaminop hen 5-325 MG Oral Tablet (Percocet) Take 1 Tablet by mouth every 4 hours as needed for Pain, Severe. 30 Tablet 0 05/16/2023 Active Cephalexin 500 MG Oral Capsule Take 1 Capsule by mouth in the morning and 1 Capsule at noon and 1 Capsule in the evening and 1 Capsule before bedtime. 28 Capsule 0 05/21/2023 Active oxyCODONE-Acetaminop hen 5-325 MG Oral Tablet (Percocet)Indication s:Status post total right knee replacement Take 1 Tablet by mouth every 6 hours as needed for Pain, Severe. 20 Tablet 0 05/21/2023 Active Metoprolol Succinate ER 25 MG Oral Tablet Extended Release 24 Hour (toPROL XL)Indications:Parox ysmal atrial fibrillation (HCC) Take 1 Tablet by mouth in the morning. 90 Tablet 3 05/30/2023 Active Solifenacin Succinate 5 MG Oral Tablet (VESIcare) Take 1 Tablet by mouth in the morning. 30 Tablet 0 06/09/2023 Active oxyCODONE-Acetaminop hen 5-325 MG Oral Tablet (Percocet)Indication s:Status post total right knee replacement Take 1 Tablet by mouth every 8 hours as needed for Pain, Severe for up to 5 days. 15 Tablet 0 06/09/2023 3 Active Solifenacin Succinate 5 MG Oral Tablet (VESIcare) Take by mouth 1 Tablet in the morning. 30 Tablet 12 05/13/2022 3 Discontinue d(Refill) documented as of this encounter (statuses as of 06/09/2023) Active Problems Problem Noted Date Diagnosed Date Other iron deficiency anemias 05/22/2023 Postoperative anemia due to acute blood loss S/P total knee arthroplasty, right 05/11/2023 Alcohol abuse 05/11/2023 Atherosclerosis of [place] co ronary artery without angina pectoris 09/10/2022 [...] as of this encounter (statuses as of 06/09/2023) Resolved Problems Problem Noted Date Diagnosed Date Resolved Date Atherosclerotic heart diseas e of [place] coronary artery with other forms of angina [...] as of this encounter (statuses as of 06/09/2023) Immunizations Name Administration Dates Next Due COVID-19 mRNA, LNP-s, No Pre serve, 2-Dose Series (Chute) 05/16/2021,09/23/2020,08/26/2020 Covid-19, Mrna, Lnp-s, Pf, B ivalent, 30 Mcg, IM, 12 yrs and above (Chute) 05/09/2022 Pneumococcal Conjugate Vacc, 13 Valent (Prevnar) [...] deaf or do you have serious difficulty h earing? No 05/11/2023 Are you blind or do you have serious difficulty seeing, even when wearing glasses? No 05/11/2023 Do you have serious difficul ty walking or climbing stairs? (5 years old or older) Yes 05/11/2023 Do you have difficulty dress ing or bathing? (5 years old or older) No 05/11/2023 Because of a physical, menta l, or emotional condition, do you have difficulty doing errands alone such as visiting a doctor s office or shopping? (15 years old or older) Yes 05/11/20 Cognitive Status Response Date of Assessm ent Because of a physical, menta l, or emotional condition, do you have serious difficulty concentrating, remembering, or making decisions? (5 years old or older) No 05/11/2023 documented as of this encounter Miscellaneous Notes * Telephone Encounter - Chilo Mcgregor MD - 06/09/2023 1:52 PM ESTSigned Prescriptions: Disp Refills Solifenacin Succinate 5 MG Oral Tablet (VE*30 Tab*0 Sig: Take 1 Tablet by mouth in the morning. Authorizing Provider: CHILO MCGREGOR * Telephone Encounter - Sinai Branham RN - 06/09/2023 12:38 PM ESTPending Prescriptions: Disp Refills Solifenacin Succinate 5 MG Oral Tablet (VE*30 Tab*0 Sig: Take 1 Tablet by mouth in the morning. * Telephone Encounter - Sinai Branham RN - 06/09/2023 12:36 PM EST Telemed 05/2022 No follow up apptmt made for pt for this year LM for pt with scheduling number to make return med apptmt with Dr Mcgregor or Lena Cadena One refill pended to get to next apptmt once scheduled if you are ok with that Sinai Branham RN documented in this encounter Plan of Treatment Upcoming Encounters Date Type Department Care Team (Late st Contact Info) Description 06/12/2023 11:30 AM EST Laboratory Laboratory, [address] [place] [phone] [facility] [address] [place] [address] 06/12/2023 6:00 PM EST Anticoagulation Pharmacy Call Center [phone] [place] [address] [facility], [facility] [address] 60 [facility] [place] [address] 07/02/2023 11:00 AM EST Office Visit Orthopaedics [facility] 132 [facility] [place] [address] Balta Hyde PA-C [address] [place] [address] 09/30/2023 9:20 AM EDT Office Visit Family Practice [facility] [address] [place] [address] Shiva Rich III, MD [address] [facility] [place] [address] 10/01/2023 3:15 PM EDT Office Visit Hematology/Oncology [facility] [address] [place] [address] Efraín Leone MD [address] [place] [address] 11/12/2023 11:20 AM EDT Office Visit Dermatology [facility] [address] [place] [address] Margarita Figueredo PA-C [address] [place] [phone] 02/25/2024 9:30 AM EDT Imaging Radiology [facility] 1st [facility] [address] [place] [address] 04/21/2024 10:30 AM EDT Office Visit Sleep Disorders Ctr [facility] [address] [place] [phone] Viktoriya White CRNP [address] [place] [address] Scheduled Procedures Name Priority Associated Diagnoses Date/Ti [...] 04/16/2023, 08/07/2022, 10/06/2022, Additional history exists GFR 05/12/2024 05/12/2023, 04/19, 03/31/2023, Additional history exists DTaP,Tdap,and Td Vaccines (2 [...] this encounter Medical Devices Implanted Type Area Taxi Dancer Device Identifier Shelf Expiration Date Model / Serial / Lot Knee X3 Ins Pos Cs Sz4 11 - Sn/A - [id number] Implanted:Qty: 1 on 05/11/2023 by Forrest Davidson, DO at OR [facility] Right: Knee FRANNIE : ORTHOPAEDICS [...] Advance Directives occurred with: Patient Care Teams Headend Technician Relationship Specialty Start Date End Date Shiva Rich III, MD [address] [place] [address] PCP - General Family Medicine 09/10/18 documented as of this encounter
--- OUTSIDE RECORDS SUMMARY | 2023-07-14 14:37 | External Medical Summary | Summary of Care ---
Author Name Unknown Organization [facility] Address [address] [facility] [place] [address] Phone [phone] Care Team Providers Care Funeral Arranger Name Role Phone Hilario ANDRADE MD, Shiva Kebede Primary Care Provider [phone] Reason for Visit * Reason Comments Dosage Adjustment Via Phone (anticoag Cl inic) Encounter Details Date Type Department Care Team (Latest Contact Info) Description 06/05/2023 6:15 AM EST Anticoagulation Pharmacy Call Center [phone] [place] [address] [facility] [address] [facility] [place] [address] Paroxysmal atrial fibrillation (HCC)* Allergies Active Allergy Reactions Criticality Noted Date Comments Bee Venom Edema Other 01/10/2016 Lisinopril Cough 09/04/2016 documented as of this encounter (statuses as of 06/05/2023) Medications Medication Sig Dispensed Refills Start Date [...] the morning. 34 Tablet 11 05/09/2022 Active Solifenacin Succinate 5 MG Oral Tablet (VESIcare) Take by mouth 1 Tablet in the morning. 30 Tablet 12 05/13/2022 Active Atorvastatin Calcium 80 MG Oral Tablet (Lipitor) TAKE 1 TABLET BY MOUTH EVERY DAY 90 Tablet 3 07/07/2022 Active Warfarin Sodium 5 MG Oral Tablet (Coumadin)Indications: Recent cerebrovascular accident (CVA),Paroxysmal atrial fibrillation (HCC) TAKE 1 1/2 TABLETS (7.5mg) BY MOUTH FRIDAYS AND 1 TABLET (5mg) ALL OTHER EVENINGS OR DIRECTED BY [facility]. 105 Tablet 3 07/18/2022 Active [...] the morning. 140 Tablet 0 05/13/2023 Active oxyCODONE-Acetaminophe n 5-325 MG Oral Tablet (Percocet) Take 1 Tablet by mouth every 4 hours as needed for Pain, Severe. 30 Tablet 0 05/16/2023 Active Cephalexin 500 MG Oral Capsule Take 1 Capsule by mouth in the morning and 1 Capsule at noon and 1 Capsule in the evening and 1 Capsule before bedtime. 28 Capsule 0 05/21/2023 Active oxyCODONE-Acetaminophe n 5-325 MG Oral Tablet (Percocet)Indications: Status post total right knee replacement Take 1 Tablet by mouth every 6 hours as needed for Pain, Severe. 20 Tablet 0 05/21/2023 Active Metoprolol Succinate ER 25 MG Oral Tablet Extended Release 24 Hour (toPROL XL)Indications:Paroxys mal atrial fibrillation (HCC) Take 1 Tablet by mouth in the morning. 90 Tablet 3 05/30/2023 Active documented as of this encounter (statuses as of 06/05/2023) Active Problems Problem Noted Date Diagnosed Date Other iron deficiency anemias 05/22/2023 Postoperative anemia due to acute blood loss S/P total knee arthroplasty, right 05/11/2023 Alcohol abuse 05/11/2023 Atherosclerosis of [place] co ronary artery without angina pectoris 09/10/2022 [...] as of this encounter (statuses as of 06/05/2023) Resolved Problems Problem Noted Date Diagnosed Date Resolved Date Atherosclerotic heart diseas e of [place] coronary artery with other forms of angina [...] as of this encounter (statuses as of 06/05/2023) Immunizations Name Administration Dates Next Due COVID-19 mRNA, LNP-s, No Pre serve, 2-Dose Series (TherMark) 05/16/2021,09/23/2020,08/26/2020 Covid-19, Mrna, Lnp-s, Pf, B ivalent, [...] No 05/11/2023 documented as of this encounter Progress Notes * Anabelle Cortez, consulting marine engineer - 06/05/2023 8:50 AM EST Contacts Type Contact Phone/Fax 06/05/2023 08:49 AM EST Phone (Outgoing) Nenita Fleming (Self) [phone] (M) Left Message Subjective Advised patient to contact Anticoagulation Clinic if any unusual bruising or bleeding, recent illness, changes in medication, or questions/concerns. PT/INR results, Coumadin dose instructions, and next PT/INR date communicated as noted by Pharmacist: Yes JERONIMO THOMSON Tech 06/05/2023, 8:50 AM * Nohelia Cortes [facility] - 06/05/2023 8:12 AM EST Coumadin Clinic (region specific) Objective Current Warfarin Dose As of 06/05/2023 Warfarin maintenance plan: 7.5 mg (5 mg x 1.5) every Fri; 5 mg (5 mg x 1) all other days INR Result As of 06/05/2023 INR goal: 2.0-3.0 INR used for dosin.6 (06/04/2023) Assessment & Plan Warfarin Plan As of 06/05/2023 Full warfarin instructions: 06/05: Hold; Otherwise 7.5 mg every Fri; 5 mg all other days Next INR check: 06/12/2023 Repeat PT/INR in 1 week(s) Weekly dose: not changed Additional Dosing Information: Description TKA 05/12- weekly checks x 4 weeks Edson Gambino- pt prefers Thurs AMIODARONE started 04/28/22 Tech to contact patient with dose instructions as noted. Nohelia Cortes RPh 06/05/2023, 8:13 AM documented in this encounter Plan of Treatment Upcoming Encounters Date Type Department Care Team (Late st Contact Info) Description 06/12/2023 11:30 AM EST Laboratory Laboratory, Edson Gambino [place] [address] [place] [phone] Wilfredo Gambino [address] [place] [address] 06/12/2023 6:00 PM EST Anticoagulation Pharmacy Call Center [address] [facility] [place] [address] [facility] 58 60 [facility] [place] [address] 07/02/2023 11:00 AM EST Office Visit Orthopaedics [facility] 132 [facility] [place] [address] Balta Hyde PA-C [address] [place] [address] 09/30/2023 9:20 AM EDT Office Visit Family Practice [facility] [address] [place] [address] Shiva Rich III, MD [address] [facility] [place] [address] 10/01/2023 3:15 PM EDT Office Visit Hematology/Oncology [facility] [place] [address] [place] [address] Efraín Leone MD [address] [facility] [place] [address] 11/12/2023 11:20 AM EDT Office Visit Dermatology [facility] [address] [place] [address] Margarita Figueredo PA-C [address] [facility] [place] [phone] 02/25/2024 9:30 AM EDT Imaging Radiology [facility] 1st [facility] [address] [place] [address] 04/21/2024 10:30 AM EDT Office Visit Sleep Disorders Ctr [facility] 132 [facility] [place] [phone] Viktoriya White CRNP [address] [place] [address] Scheduled Procedures Name Priority Associated Diagnoses Date/Ti [...] 08/0 07/2022, 10/06/2022, Additional history exists GFR 05/12/2024 05/12/2023, [...] this encounter Medical Devices Implanted Type Area Venue Manager Device Identifier Shelf Expiration Date Model / Serial / Lot Knee X3 Ins Pos Cs Sz4 11 - Sn/A - [id number] Implanted:Qty: 1 on 05/11/2023 by Forrest Davidson, DO at OR [facility] Right: Knee FRANNIE : ORTHOPAEDICS [...] Advance Directives occurred with: Patient Care Teams Funeral Arranger Relationship Specialty Start Date End Date Shiva Rich III, MD [address] [facility] [place] [address] PCP - General Family Medicine 09/10/18 documented as of this encounter
--- OUTSIDE RECORDS SUMMARY | 2023-07-14 14:37 | External Medical Summary ---
Author Name Unknown Address Unknown Organization K1F:LABORATORY [facility] - [address] [place] [address] Laboratory Report Ordering Provider Test Date Status JODIE PORTILLO 06/15/2023 14:46:42 Final Observation Date Value Abnormality Reference (Units ) Status CRP, low-sensitivity 06/15/2023 14:46:42 9 Above high normal <=5 (mg/L) Final Performing Location LABORATORY [facility] - [address] [place] [address]
--- OUTSIDE RECORDS SUMMARY | 2023-07-14 14:37 | External Medical Summary ---
Author Name Unknown Address Unknown Organization : Laboratory Report Ordering Provider Test Date Status ALMA PORTILLO 06/15/2023 18:00:47 Final Observation Date Value Abnormality Reference (Units ) Status Glucose Point of Care 06/15/2023 18:00:47 105 70-120 (mg/dL) Final Performing Location
--- OUTSIDE RECORDS SUMMARY | 2023-07-14 14:37 | External Medical Summary ---
Author Name Unknown Address Unknown Organization K0G:LABORATORY [facility] [address] - [address] [place] [address] Laboratory Report Ordering Provider Test Date Status INDER KINCAID 06/15/2023 12:14:29 Final Standing order for pt/inr. < br/>Please draw pt/inr every 1 to 4 weeks as requested
Results to [facility]

Warfarin Therapy
INR: 2.0-3.0 conventional anticoagulation
INR: 2.5-3.5 high intensity anticoagulation Observation Date Value Abnormality Reference (Units ) Status PT 06/15/2023 12:14:29 31.7 Above high normal 11 .6-15.2 (seconds) Final INR 06/15/2023 12:14:29 3.0 Above high normal 0. 8-1.2 Final Performing Location LABORATORY [facility] [address] - [address] [place] [address]
--- OUTSIDE RECORDS SUMMARY | 2023-07-14 14:37 | External Medical Summary ---
Author Name Unknown Address Unknown Organization K1F:LABORATORY [facility] - [address] [place] [address] [address] [place] [address] Laboratory Report Ordering Provider Test Date Status JODIE PORTILLO 06/15/2023 14:46:42 Final Observation Date Value Abnormality Reference (Units ) Status WBC, Total 06/15/2023 14:46:42 7.83 4.00-10.80 (K/uL) Final RBC 06/15/2023 14:46:42 3.45 3.85-5.15 (M/uL) Final Hemoglobin 06/15/2023 14:46:42 10.3 Below low normal 12.0-15.3 (g/dL) Final HCT 06/15/2023 14:46:42 32.0 Below low normal 36.0-45.2 (%) Final MCV 06/15/2023 14:46:42 92.8 81.5-97.5 (fL) Final MCH 06/15/2023 14:46:42 29.9 27.0-34.0 (pg) Final MCHC 06/15/2023 14:46:42 32.2 32.0-36.0 (g/dL) Final RDW 06/15/2023 14:46:42 14.5 11.5-15.5 (%) Final Platelets 06/15/2023 14:46:42 454 Above high normal 140-400 (K/uL) Final MPV 06/15/2023 14:46:42 9.7 6.6-11.1 (fL) Final Nucleated erythrocytes/100 leukocytes [Ratio] in Blood by Automated count 06/15/2023 14:46:42 0 <=0 (/100 WBCs) Final Performing Location LABORATORY [facility] - [address] [place] [address]
--- OUTSIDE RECORDS SUMMARY | 2023-07-14 14:37 | External Medical Summary | Summary of Care ---
Author Name Unknown Organization [facility] Address [address] [facility] [place] [address] Phone [phone] Care Team Providers Care Fbi Field Agent Name Role Phone Hliario ANDRADE MD, Shiva eKbede Primary Care Provider [phone] Reason for Visit * Reason Comments Follow Up Right knee wound wilmar ck Encounter Details Date Type Department Care Team (Late st Contact Info) Description 05/28/2023 11:00 AM EST Office Visit Orthopaedics [facility] [address] [place] [address] Forrest Davidson DO [address] [place] [address] Status post total right knee replacement* Allergies Active Allergy Reactions Criticality Noted Date Comments Bee Venom Edema Other 01/10/2016 Lisinopril Cough 09/04/2016 documented as of this encounter (statuses as of 06/15/2023) Medications Medication Sig Dispensed Refills Start Date [...] Active Warfarin Sodium 5 MG Oral Tablet (Coumadin)Indicatio ns:Recent cerebrovascular accident (CVA),Paroxysmal atrial fibrillation (HCC) TAKE 1 1/2 TABLETS (7.5mg) BY MOUTH FRIDAYS AND 1 TABLET (5mg) ALL OTHER EVENINGS OR DIRECTED BY [facility]. 105 Tablet 3 2 Active Multi Vitamin Daily Oral Tablet 0 Active Ezetimibe 10 MG Oral Tablet (Zetia)Indications: Right internal carotid occlusion TAKE 1 TABLET BY [...] in the morning. 140 Tablet 0 3 Active oxyCODONE-Acetamino phen 5-325 MG Oral Tablet (Percocet) Take 1 Tablet by mouth every 4 hours as needed for Pain, Severe. 30 Tablet 0 3 Active Cephalexin 500 MG Oral Capsule Take 1 Capsule by mouth in the morning and 1 Capsule at noon and 1 Capsule in the evening and 1 Capsule before bedtime. 28 Capsule 0 3 Active oxyCODONE-Acetamino phen 5-325 MG Oral Tablet (Percocet)Indicatio ns:Status post total right knee replacement Take 1 Tablet by mouth every 6 hours as needed for Pain, Severe. 20 Tablet 0 3 Active Amiodarone HCl 200 MG Oral Tablet (Cordarone) Take by mouth 1 Tablet in the morning. 34 Tablet 11 2 06/13/20 23 Discontinued Solifenacin Succinate 5 MG Oral Tablet (VESIcare) Take by mouth 1 Tablet in the morning. 30 Tablet 12 2 06/09/20 23 Discontinued(Ref ill) Metoprolol Succinate ER 25 MG Oral Tablet Extended Release 24 Hour (toPROL XL)Indications:Paro xysmal atrial fibrillation (HCC) Take 1 Tablet by mouth in the morning. 90 Tablet 3 3 05/30/20 23 Discontinued(Ref ill) documented as of this encounter (statuses as of 06/15/2023) Active Problems Problem Noted Date Diagnosed Date Other iron deficiency anemias 05/22/2023 Postoperative anemia due to acute blood loss S/P total knee arthroplasty, right 05/11/2023 Alcohol abuse 05/11/2023 Atherosclerosis of citizen [place] co ronary artery without angina pectoris 09/10/2022 [...] as of this encounter (statuses as of 06/15/2023) Resolved Problems Problem Noted Date Diagnosed Date Resolved Date Atherosclerotic heart diseas e of citizen [place] coronary artery with other forms of angina [...] as of this encounter (statuses as of 06/15/2023) Immunizations Name Administration Dates Next Due COVID-19 mRNA, LNP-s, No Pre serve, 2-Dose Series ([facility]) 05/16/2021,09/23/2020,08/26/2020 Covid-19, Mrna, Lnp-s, Pf, B ivalent, 30 Mcg, IM, 12 yrs and above (Grabit) 05/09/2022 Pneumococcal Conjugate Vacc, 13 Valent (Prevnar) [...] this encounter Progress Notes * Forrest Davidson, - 05/28/2023 11:11 AM EST ORTHOPAEDIC SURGERY - Post-Op Clinic Note SUBJECTIVE: Nenita Fleming is a 67 year old female. Chief Complaint Patient presents with Follow Up Right knee wound check HPI: She presents today for 1 week wound check after her 1st postoperative status post TKA. She feels she is doing much better. She has continued dressing changes as outlined. She has reported no issue as far as drainage or signs of infection. She denies fevers, chills or night sweats. No reported shortness of breath or chest pain. She has followed up with her heme Onc physician who has ordered repeat blood testing. She has had 1 iron infusion thus far. Review of patient's allergies indicates: Allergen Reactions [...] Tablet in the morning. 30 Tablet 12 Atorvastatin Calcium 80 MG Oral Tablet (Lipitor) [...] mouth in the morning. 34 Tablet 11 Metoprolol Succinate ER 25 MG Oral Tablet Extended Release 24 Hour (toPROL XL) Take 1 Tablet by mouth in the morning. 90 Tablet 3 CPAP every night at bedtime. Sennosides 8.6 MG Oral Tablet (Senokot) Take 2 Tablets by mouth in the morning. 140 Tablet 0 oxyCODONE-Acetaminophen 5-325 MG Oral Tablet (Percocet) Take 1 Tablet by mouth every 4 hours as needed for Pain, Severe. 30 Tablet 0 Cephalexin 500 MG Oral Capsule Take 1 Capsule by mouth in the morning and 1 Capsule at noon and 1 Capsule in the evening and 1 Capsule before bedtime. 28 Capsule 0 oxyCODONE-Acetaminophen 5-325 MG Oral Tablet (Percocet) Take 1 Tablet by mouth every 6 hours as needed for Pain, Severe. 20 Tablet 0 No current facility-administered medications for this visit. OBJECTIVE: Diagnostic studies: None today Vital Signs: There were no vitals taken for this visit. Physical Exam: Examination of the right knee reveals healing incisions without evidence of gross complication. No evidence of drainage or signs of infection. She has evidence of eschar formation noted over the mid to distal portion of her incision as well as over the previous blistered areas. She has intact mobility consistent with previous evaluation. Collateral stability intact. Sensation intact pulses palpable. No lower extremity edema. No calf tenderness. ASSESSMENT: Status post total right knee replacement (Primary) Follow Up: Return in about 1 month (around 06/27/2023). PLAN: Her wound is healing well at this point. I would like her to continue dressing changes as appropriate. She has supplies that were previously provided. She may begin showering normally. She is not to soak the knee. I will see her back in 1 month for re-evaluation with repeat x-rays right knee beforebeing seen. She will continue to follow-up with her heme Onc physician for management of her anemia. She will also continue her home regimen of Coumadin. All questions answered. This chart was completed in part utilizing The [employer] Voice Recognition Software. Grammatical errors, random word insertions, pronoun errors, and incomplete sentences are an occasional consequence of this system due to software limitations, ambient noise, and hardware issues. Any formal questions or concerns about the content, text, or information contained within the body of this dictation should be directly addressed to the provider for clarification. Forrest Davidson DO 05/28/2023 11:11 AM documented in this encounter Nursing Notes * Medina Conde MED ASSIST - 05/28/2023 10:56 AM EST Pt presents today for right TKA wound check. Pt states she thinks the incision is healing and looksbetter. documented in this encounter Plan of Treatment Upcoming Encounters Date Type Department Care Team (Late st Contact Info) Description 06/15/2023 11:00 AM EST Laboratory Laboratory, [facility] [address] [facility] [place] [phone] GambinoWilfredo villalpando [facility] [address] [facility] [place] [address] 06/15/2023 6:00 PM EST Anticoagulation Pharmacy Call Center [address] [place] [address] [facility] [address] [facility] [place] [address] 07/02/2023 11:00 AM EST Office Visit Orthopaedics [facility] [address] [facility] [place] [address] Balta Hyde PA-C [address] [place] [address] 09/30/2023 9:20 AM EDT Office Visit Family Practice [facility] [address] [place] [address] Shiva Rich III, MD [address] [place] [address] 10/01/2023 3:15 PM EDT Office Visit Hematology/Oncology [facility] [address] [place] [address] Efraín Leone MD [address] [place] [address] 11/12/2023 11:20 AM EDT Office Visit Dermatology [facility] [address] [place] [address] Margarita Figueredo PA-C [address] [facility] [place] [phone] 02/25/2024 9:30 AM EDT Imaging Radiology [address] [facility] [place] [address] 04/21/2024 10:30 AM EDT Office Visit Sleep Disorders Ctr [facility] [address] [facility] [place] [phone] Viktoriya White CRNP [address] [facility] [place] [address] Scheduled Procedures Name Priority Associated Diagnoses Date/Ti [...] this encounter Medical Devices Implanted Type Area Research Pharmacist Device Identifier Shelf Expiration Date Model / Serial / Lot Knee X3 Ins Pos Cs Sz4 11 - Sn/A - [id number] Implanted:Qty: 1 on 05/11/2023 by Forrest Davidson, at OR [facility] Right: Knee FRANNIE : ORTHOPAEDICS 10/16/2027 [id number] / N/A / [id number] documented as of this encounter Visit Diagnoses Diagnosis Status post total right knee replacement- Primary documented in this encounter Advance Directives Latest Code Status on File Code Status Date Activated Date Inactivated Comments Full Code 05/11/2023 4:30 PM 05/12/2023 8:11 PM Thi s order reflects the patients wishes and were consensually agreed upon. Question Answer Comments Discussion of Advance Directives occurred with: Patient Care Teams Fbi Field Agent Relationship Specialty Start Date End Date Shiva Rich III, MD [address] [place] [address] PCP - General Family Medicine 09/10/18 documented as of this encounter
--- OUTSIDE RECORDS SUMMARY | 2023-07-14 14:37 | External Medical Summary ---
Author Name Unknown Address Unknown Organization [id number]:[facility] [place] [facility] [address] [facility] [address] Laboratory Report Ordering Provider Test Date Status ALMA PORTILLO 06/15/2023 16:20:36 Final Multiple other species of ae robic and/or anaerobic bacteria.
No further workup routinely performed Observation Date Value Abnormality Reference (Units ) Status Bacteria identified in Specimen by Culture 06/15/2023 16:20:36 [id number]^PSEUDOMON AERUGINOSA Abnormal Final Many Pseudomonas aeruginosa< br/>This bacterial species is known to produce a chromosomal AmpC inducible beta lactamase. Penicillin or cephalosporin use, with the exception of cefepime, may result in resistance. Gram Stain 06/15/2023 16:20:36 Few Polymorphonuclear leukocy benton Abnormal Final Gram Stain 06/15/2023 16:20:36 Many Gram negative bacilli Ab normal Final Gram Stain 06/15/2023 16:20:36 Many Gram positive cocci Abno rmal Final Performing Location [facility] [place] [facility] [address] [facility] [address] [facility] [address] Ordering Provider Test Date Status ALMA PORTILLO 06/15/2023 16:20:36 Final Observation Date Value Abnormality Reference (Units) Status Cefepime susceptibility 06/15/2023 16:20:36 <=1 Susceptible Final Ciprofloxacin 06/15/2023 16:20:36 <=0.25 Susceptible Final Levofloxacin susceptibility 06/15/2023 16:20:36 0.25 Susceptible Final Piperacillin + Tazobactamsusceptibility 06/15/2023 16:20:36 8 Susceptible Final Tobramycinsusceptibility 06/15/2023 16:20:36 <=1 Susceptible Final Test: Culture, Wound, Deep, Aerobic and Anaerobic
Specimen Source: Knee, Right
Specimen Type: Deep Wound
Specimen Date: 06/15/2023 4:20 PM
Result Date: 06/18/2023 2:34 PM
Result Status: Final result
Abnormal: Yes
Resulting Lab: [facility]
[address]
[place] [address]

CULTURE

Many Pseudomonas aeruginosa (Abnormal)

This bacterial species is known to produce a chromosomal AmpC inducible
beta lactamase. Penicillin or cephalosporin use, with the exception of
cefepime, may result in resistance.

Multiple other species of aerobic and/or anaerobic bacteria.No further
workup routinely performed

STAIN

Few Polymorphonuclear leukocytes

Many Gram negative bacilli

Many Gram positive cocci

SUSCEPTIBILITY

Pseudomonas
aeruginosa
METHOD MICROBROTH
DILUTIONS

CEFEPIME <=1 Susceptible
CIPROFLOXACIN <=0.25 Susceptible
LEVOFLOXACIN 0.25 Susceptible
PIPERACILLIN TAZOBACTAM 8 Susceptible
TOBRAMYCIN <=1 Susceptible

null Performing Location [facility] [place] [address] [place] [address]
--- OUTSIDE RECORDS SUMMARY | 2023-07-14 14:37 | External Medical Summary ---
Author Name Unknown Address Unknown Organization [id number]:[facility] [place] [address] [place] [address] Laboratory Report Ordering Provider Test Date Status ALMA PORTILLO 06/15/2023 16:23:53 Final Observation Date Value Abnormality Reference (Units) Status Bacteria identified in Specimen by Culture 06/15/2023 16:23:53 No growth Final Gram Stain 06/15/2023 16:23:53 No polymorphonuclear leukocytes seen Final Gram Stain 06/15/2023 16:23:53 No organisms seen Final Test: Culture, Synovial Flui d, Aerobic and Anaerobic
Specimen Source: Knee, Right
Specimen Type: Synovial Fluid
Specimen Date: 06/15/2023 4:23 PM
Result Date: 06/29/2023 10:01 PM
Result Status: Final result
Resulting Lab: [facility] [place]
[address]
[place] [address]

CULTURE

No growth

STAIN

No polymorphonuclear leukocytes seen

No organisms seen

null Performing Location [facility] [place] [address] [place] [address]
--- OUTSIDE RECORDS SUMMARY | 2023-07-14 14:37 | External Medical Summary ---
Author Name Unknown Address Unknown Organization [id number]:LABORATORY [facility] - [address] [place] [address] Laboratory Report Ordering Provider Test Date Status JODIE PORTILLO 06/15/2023 14:46:42 Final Warfarin Therapy
INR: 2 .0-3.0 conventional anticoagulation
INR: 2.5- 3.5 high intensity anticoagulation Observation Date Value Abnormality Reference (Units ) Status PT 06/15/2023 14:46:42 32.2 Above high normal 11 .6-15.2 (seconds) Final INR 06/15/2023 14:46:42 3.1 Above high normal 0. 8-1.2 Final Performing Location LABORATORY [facility] - [address] [place] [address]
--- OUTSIDE RECORDS SUMMARY | 2023-07-14 14:37 | External Medical Summary | Summary of Care ---
Author Name Unknown Organization [facility] Address [address] [facility] [place] [address] Phone [phone] Care Team Providers Care Brush And Broom Clipper Name Role Phone Hilario ANDRADE MD, Shiva Kebede Primary Care Provider [phone] Reason for Visit * Reason Comments Outpatient Testing Encounter Details Date Type Department Care Team (Late st Contact Info) Description 06/15/2023 11:00 AM EST Laboratory Laboratory, [facility] [address] [place] [phone] [facility] [address] [place] [address] Paroxysmal atrial fibrillation (HCC) Allergies Active Allergy [...] [facility] 105 Tablet 3 07/18/2022 Active Multi [...] EVERY MORNING 90 Tablet 3 06/13/2023 Active documented as of this encounter (statuses as of 06/15/2023) Active Problems Problem Noted Date Diagnosed Date Other iron deficiency anemias 05/22/2023 Postoperative anemia due to acute blood loss S/P total knee arthroplasty, right 05/11/2023 Alcohol abuse 05/11/2023 Atherosclerosis of [place] co ronary artery without angina pectoris 09/10/2022 [...] Resolved Date Atherosclerotic heart diseas e of [place] coronary artery with other forms of angina [...] mRNA, LNP-s, No Pre serve, 2-Dose Series ([employer]) 05/16/2021,09/23/2020,08/26/2020 Covid-19, Mrna, Lnp-s, Pf, B ivalent, [...] No 05/11/2023 documented as of this encounter Plan of Treatment Upcoming Encounters Date Type Department Care Team (Late st Contact Info) Description 06/15/2023 6:00 PM EST Anticoagulation Pharmacy Call Center [phone] [place] [address] [facility] [address] [facility] [place] [address] 07/02/2023 11:00 AM EST Office Visit Orthopaedics [facility] [address] [facility] [place] [address] Batla Hyde PA-C [address] [place] [place] [address] 09/30/2023 9:20 AM EDT Office Visit Family Practice [facility] [address] [place] [address] Shiva Rich III, MD 200 [facility] [place] [address] 10/01/2023 3:15 PM EDT Office Visit Hematology/Oncology [facility] [address] [place] [address] Efraín Leone MD [address] [facility] [place] [address] 11/12/2023 11:20 AM EDT Office Visit Dermatology [facility] [address] [place] [address] Margarita Figueredo PA-C 200 [facility] [place] [phone] 02/25/2024 9:30 AM EDT Imaging Radiology [address] [facility] [place] [address] 04/21/2024 10:30 AM EDT Office Visit Sleep Disorders Ctr [facility] 132 [facility] [place] [phone] Viktoriya White CRNP [address] [place] [address] Pending Results Name Type Priority Associated Diagnoses Date /Time PT INR Lab Routine Paroxysmal atrial fibrillation (HCC) 06/15/2023 12:14 PM EST Scheduled Procedures Name Priority Associated [...] this encounter Medical Devices Implanted Type Area Ball Assembler Device Identifier Shelf Expiration Date Model / Serial / Lot Knee X3 Ins Pos Cs Sz4 11 - Sn/A - [id number] Implanted:Qty: 1 on 05/11/2023 by Forrest Davidson, DO at OR [facility] Right: Knee FRANNIE : ORTHOPAEDICS [...] Advance Directives occurred with: Patient Care Teams Brush And Broom Clipper Relationship Specialty Start Date End Date Shiva Rich III, MD 200 [facility] [place] [address] PCP - General Family Medicine 09/10/18 documented as of this encounter
--- OUTSIDE RECORDS SUMMARY | 2023-07-14 14:37 | External Medical Summary | Summary of Care ---
Author Name Unknown Organization [facility] Address [address] [facility] [place] [address] Phone [phone] Care Team Providers Care Fishing Vessel Operator Name Role Phone Hilario ANDRADE MD, Shiva Kebede Primary Care Provider [phone] Reason for Visit * Reason Comments eRx-Medication Refill Encounter Details Date Type Department Care Team (Late st Contact Info) Description 06/12/2023 Refill Cardiology, [facility] [address] [place] [address] Fabian Diggs, [address] [place] [address] PAF (paroxysmal atrial fibrillation) ([facility])* Allergies Active Allergy Reactions Criticality Noted Date Comments Bee Venom Edema Other 01/10/2016 Lisinopril Cough 09/04/2016 documented as of this encounter (statuses as of 06/13/2023) Medications Medication Sig Dispensed Refills Start Date [...] (5mg) ALL OTHER EVENINGS OR DIRECTED BY [facility]. 105 Tablet 3 2 Active Multi [...] the morning. 140 Tablet 0 3 Active oxyCODONE-Acetaminop hen 5-325 MG Oral Tablet (Percocet) Take 1 Tablet by mouth every 4 hours as needed for Pain, Severe. 30 Tablet 0 3 Active Cephalexin 500 MG Oral Capsule Take 1 Capsule by mouth in the morning and 1 Capsule at noon and 1 Capsule in the evening and 1 Capsule before bedtime. 28 Capsule 0 3 Active oxyCODONE-Acetaminop hen 5-325 MG Oral Tablet (Percocet)Indication s:Status post total right knee replacement Take 1 Tablet by mouth every 6 hours as needed for Pain, Severe. 20 Tablet 0 3 Active Metoprolol Succinate ER 25 MG Oral Tablet Extended Release 24 Hour (toPROL XL)Indications:Parox ysmal atrial fibrillation (HCC) Take 1 Tablet by mouth in the morning. 90 Tablet 3 3 Active Solifenacin Succinate 5 MG Oral Tablet (VESIcare) Take 1 Tablet by mouth in the morning. 30 Tablet 0 3 Active oxyCODONE-Acetaminop hen 5-325 MG Oral Tablet (Percocet)Indication s:Status post total right knee replacement Take 1 Tablet by mouth every 8 hours as needed for Pain, Severe for up to 5 days. 15 Tablet 0 3 06/14/20 23 Active Amiodarone HCl 200 MG Oral Tablet (Cordarone)Indicatio ns:PAF (paroxysmal atrial fibrillation) (HCC) TAKE 1 TABLET BY MOUTH EVERY MORNING 90 Tablet 3 3 Active Amiodarone HCl 200 MG Oral Tablet (Cordarone) Take by mouth 1 Tablet in the morning. 34 Tablet 11 2 06/13/20 23 Discontinued documented as of this encounter (statuses as of 06/13/2023) Active Problems Problem Noted Date Diagnosed Date Other iron deficiency anemias 05/22/2023 Postoperative anemia due to acute blood loss S/P total knee arthroplasty, right 05/11/2023 Alcohol abuse 05/11/2023 Atherosclerosis of [place] co ronary artery without angina pectoris [...] as of this encounter (statuses as of 06/13/2023) Resolved Problems Problem Noted Date Diagnosed Date Resolved Date Atherosclerotic heart diseas e of [place] coronary artery with other forms of [...] as of this encounter (statuses as of 06/13/2023) Immunizations Name Administration Dates Next Due COVID-19 mRNA, LNP-s, No Pre serve, 2-Dose Series (AIT) 05/16/2021,09/23/2020,08/26/2020 Covid-19, Mrna, Lnp-s, Pf, B ivalent, 30 Mcg, IM, 12 yrs and above (AIT) 05/09/2022 Pneumococcal Conjugate Vacc, 13 Valent (Prevnar) [...] encounter Miscellaneous Notes * Telephone Encounter - Fabian Diggs DO - 06/13/2023 2:47 PM ESTSigned Prescriptions: Disp Refills Amiodarone HCl 200 MG Oral Tablet (Cordaro*90 Tab*3 Sig: TAKE 1 TABLET BY MOUTH EVERY MORNING Authorizing Provider: FABIAN DIGGS * Telephone Encounter - Beth Mckeon COT - 06/12/2023 10:17 AM ESTPending Prescriptions: Disp Refills Amiodarone HCl 200 MG Oral Tablet (Cordaro*90 Tab*3 Sig: TAKE 1 TABLET BY MOUTH EVERY MORNING * Telephone Encounter - Beth Mckeon COT - 06/12/2023 10:16 AM EST Did you pend patient's preferred pharmacy and medication before forwarding?yes Pharmacy: [facility] [id number]- [place] Pending Prescriptions: Disp Refills Amiodarone HCl 200 MG Oral Tablet (Cordar*90 Tab*3 Sig: TAKE 1 TABLET BY MOUTH EVERY MORNING Last Visit: 04/30/2023 (in office), Visit date not found (telemedicine) Next Visit: Visit date not found If no future appointments scheduled, and last appointment is greater than a year ago, please schedule patient for a follow-up appointment Last date the medication was ordered: 05-09-2022 Is this request for a controlled substance?No Urine Drug Screen:No results found. However, due to the size of the patient record, not all encounters were searched. Please check Results Review for a complete set of results. Patient Phone Numbers Labs: Lab Results Component Value Date/Time CREAT 0.8 05/12/2023 04:08 AM CREAT 0.8 07/08/2019 09:16 AM POTASSIUM 4.4 05/12/2023 04:08 AM POTASSIUM 4.2 07/08/2019 09:16 AM TSH 2.60 04/30/2023 03:17 PM TSH 2.39 09/17/2016 02:49 PM LDLCALC 49 05/06/2022 12:18 PM LDLCALC 45 08/03/2020 08:36 AM LDLDIRECT 45 09/10/2022 03:11 PM LDLDIRECT NOT APPLICABLE 08/03/2020 08:36 AM LDLDIRECT 59 02/03/2019 09:14 AM ALT 62 (H) 05/04/2023 10:28 AM ALT 24 07/08/2019 09:16 AM HGBA1C 4.9 05/04/2023 10:28 AM HGBA1C 6.6 (H) 07/02/2020 09:40 AM documented in this encounter Plan of Treatment Upcoming Encounters Date Type Department Care Team (Late st Contact Info) Description 06/15/2023 11:00 AM EST [facility] [address] [facility] [place] [phone] Wilfredo Gambnios [address] [place] [address] 06/15/2023 6:00 PM EST Anticoagulation Pharmacy Call Center WB [phone] [facility] [place] [address] [facility] 58 60 [facility] [place] [address] 07/02/2023 11:00 AM EST Office Visit Orthopaedics [facility] 132 [facility] [place] [address] Balta Hyde PA-C [address] [place] [place] [address] 09/30/2023 9:20 AM EDT Office Visit Family Practice [facility] [address] [place] [address] Shiva Rich III, MD [address] [facility] [place] [address] 10/01/2023 3:15 PM EDT Office Visit Hematology/Oncology [facility] [address] [place] [address] Efraín Leone MD [address] [facility] [place] [address] 11/12/2023 11:20 AM EDT Office Visit Dermatology [facility] [address] [place] [address] Margarita Figueredo PA-C [address] [facility] [place] [phone] 02/25/2024 9:30 AM EDT Imaging Radiology [address] [facility] [place] [address] 04/21/2024 10:30 AM EDT Office Visit Sleep Disorders Ctr [facility] [address] [place] [phone] Viktoriya White CRNP [address] [place] [address] Scheduled Procedures Name Priority Associated Diagnoses Date/Ti [...] this encounter Medical Devices Implanted Type Area Test Development Engineer Device Identifier Shelf Expiration Date Model / Serial / Lot Knee X3 Ins Pos Cs Sz4 11 - Sn/A - [id number] Implanted:Qty: 1 on 05/11/2023 by Forrest Davidson, DO at OR [facility] Right: Knee FRANNIE : ORTHOPAEDICS 10/16/2027 [id number] / N/A / [id number] documented as of this encounter Visit Diagnoses Diagnosis PAF (paroxysmal atrial fibrillation) (HCC)- Primary Atrial fibrillation documented in this encounter Advance Directives Latest Code Status on File Code Status Date Activated Date Inactivated Comments Full Code 05/11/2023 4:30 PM 05/12/2023 8:11 PM Thi s order reflects the patients wishes and were consensually agreed upon. Question Answer Comments Discussion of Advance Directives occurred with: Patient Care Teams Fishing Vessel Operator Relationship Specialty Start Date End Date Shiva Rich III, MD [address] [facility] [place] [address] PCP - General Family Medicine 09/10/18 documented as of this encounter
--- OUTSIDE RECORDS SUMMARY | 2023-07-14 14:37 | External Medical Summary ---
Author Name Unknown Address Unknown Organization K1F:LABORATORY [address] [place] [address] Laboratory Report Ordering Provider Test Date Status JODIE PORTILLO 06/15/2023 15:12:00 Final Observation Date Value Abnormality Reference (Units ) Status Bacteria identified in Specimen by Culture 06/15/2023 15:12:00 No growth Final Test: Culture, Blood
Sp ecimen Source: Blood, Venous
Specimen Type: Blood
Specimen Date: 06/15/2023 3:12 PM
Result Date: 06/20/2023 4:01 PM
Result Status: Final result
Resulting Lab: LABORATORY [facility]
[address] [place] [address]
[place] [address]

CULTURE

No growth

null Performing Location LABORATORY [address] [place] [address]
--- OUTSIDE RECORDS SUMMARY | 2023-07-14 14:37 | External Medical Summary | Summary of Care ---
Author Name Unknown Organization [facility] Address [address] [facility] [address] Phone [phone] Care Team Providers Care Supervisor Bridges And Buildings Name Role Phone Hilario ANDRADE MD, Shiva Kebede Primary Care Provider [phone] Reason for Visit * Reason Comments Post-Op Right TKR incision c heck Encounter Details Date Type Department Care Team (Late st Contact Info) Description 06/15/2023 10:50 AM EST Office Visit Orthopaedics [facility] [address] [place] [address] Sharer, Hilary Edgar PA-C [address] [place] [address] Status post total right knee replacement*; Infection associated with internal knee prosthesis, initial encounter Allergies Active Allergy Reactions Criticality Noted Date [...] right 05/11/2023 Alcohol abuse 05/11/2023 Atherosclerosis of [place] co ronary artery without angina pectoris 09/10/2022 [...] Resolved Date Atherosclerotic heart diseas e of [place] coronary artery with other forms of angina [...] mRNA, LNP-s, No Pre serve, 2-Dose Series ([employer]) 05/16/2021,09/23/2020,08/26/2020 Covid-19, Mrna, Lnp-s, Pf, B ivalent, 30 Mcg, IM, 12 yrs and above ([employer]) 05/09/2022 Pneumococcal Conjugate Vacc, 13 Valent (Prevnar) [...] Sign Reading Time Taken Comments Blood Pressure - - Pulse - - Temperature 37 C (98.6 F) 06/15/2023 10:51 AM EST Respiratory Rate - - Oxygen Saturation - - Inhaled Oxygen Concentration - - Weight - - Height - - Body Mass Index - - documented in this encounter Functional Status Functional [...] as of this encounter Progress Notes * Sharer, Hilary Edgar PA-C - 06/15/2023 11:34 AM EST Nenita Fleming is a 67 year old female who presents for consultation to [facility] for right knee injury/pain. Consult requested by Self. Nenita Fleming is here with his/her History: Nenita Fleming presents with right knee redness and drainage. She underwent TKA on 05/11. She was seen on 05/21 after developing blisters and was treated with prophylactic Keflex. She presentedto Physical Therapy today who recommend evaluation due concerns about incision site. Patient stateswound dehisced about one week ago. She is not using any type of dressing. Noticed drainage and foulsmell over the past few days. Denies fever or increased pain. Review of systems: All others negative except those noted above in HPI. Review of patient's allergies indicates: Allergen Reactions [...] (5mg) ALL OTHER EVENINGS OR DIRECTED BY [facility]. 105 Tablet 3 Multi Vitamin Daily [...] Tablet 11 CPAP every night at bedtime. Sennosides 8.6 [...] needed for Pain, Severe. 20 Tablet 0 Metoprolol Succinate ER 25 MG Oral Tablet Extended Release 24 Hour (toPROL XL) Take 1 Tablet by mouth in the morning. 90 Tablet 3 Solifenacin Succinate 5 MG Oral Tablet (VESIcare) Take 1 Tablet by mouth in the morning. 30 Tablet 0 Amiodarone HCl 200 MG Oral Tablet (Cordarone) TAKE 1 TABLET BY MOUTH EVERY MORNING 90 Tablet 3 No current facility-administered medications for this visit. 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 02/23/2019 BCC (basal cell carcinoma), scalp/neck 11/04/2018 Body mass index (BMI) of 45.0 to 49.9 in adult ([facility]) 04/20/2017 Per Obesity protocol #1 Dyslipidemia, goal LDL below 70 12/30/2019 Endometrial polyp 09/06/2021 Essential hypertension with goal blood pressure less than 140/90 09/02/2016 Hemiplegia and hemiparesis following cerebral infarction affecting left non- dominant side ([facility]) 01/21/2017 History of basal cell cancer 01/24/2019 History of colon cancer 06/24/2018 History of melanoma in situ 07/27/2019 Hypertension Left renal mass 01/26/2017 Morbid obesity due to excess calories ([facility]) 03/25/2017 SALVADOR on CPAP 04/19/2020 Paroxysmal atrial fibrillation (HCC) 01/21/2017 PMB (postmenopausal bleeding) 08/19/2021 Right internal carotid occlusion 02/13/2017 Thickened endometrium 09/06/2021 Type 2 diabetes mellitus (HCC) Type 2 diabetes mellitus without complications (HCC) 01/21/2017 Patient Active Problem List Diagnosis Code Essential [...] 44.9 in adult (HCC) Z68.41 Atherosclerosis of [place] coronary artery without angina pectoris I25.10 S/P total knee arthroplasty, right Z96.651 Alcohol abuse F10.10 Postoperative anemia due to acute blood loss D62 Other iron deficiency anemias D50.8 Past Surgical History: Procedure Laterality Date ARTHROPLASTY KNEE TOTAL Right 05/11/2023 ROBOTIC ARTHROPLASTY KNEE TOTAL performed by Forrest Davidson DO at OR [facility] COLONOSCOPY, DIAGNOSTIC (RECTUM) 11/12/2016 adenocarcinoma/[facility] COLONOSCOPY, DIAGNOSTIC (RECTUM) 02/16/2018 serrated adenomatous polyp, repeat 1 yr/[facility] COLONOSCOPY, DIAGNOSTIC (RECTUM) 03/16/2019 benign polyps, repeat 2 yrs/[facility] COLONOSCOPY, DIAGNOSTIC (RECTUM) 04/11/2021 normal, repeat 3 yrs / [facility] DENTAL SURGERY PROCEDURE NEC Dental Surgery Procedure wisdom teeth INFORMATION 04/2022 Cardioversion. INFORMATION Part of colon removed. INFORMATION 11/2021 Heart Cath PAYTON FLEX SIGMOID DIAGNOSITIC 11/20/2016 SIGMOIDOSCOPY FLEXIBLE DIAGNOSTIC performed by Declan West MD at ENDOSCOPY [facility] REMOVAL OF OVARY(S) Left REMOVAL OF OVARY(S) FOR TUMOR benign Social History Socioeconomic History Marital status: Spouse [...] on file Housing Stability: Not on file Family History Problem Relation Age of Onset Hypertension Mother Thyroid Disorder Father accident No Past Hx Sister No Past Hx Brother Heart Disorder Grandfather (Maternal) [place] Breast Cancer No significant family history Family History; none relevant to today's HPI Objective: [facility] 03/24/2023 08:44 04/20/2023 09:35 04/26/2023 12:47 04/26/2023 12:48 06/02/2023 07:56 [facility] Date of Service 2023-04-23 2023-05-21 2023-05-11 2023-05-11 2023-07-02 Appt Label now now -3 months -3 months now Knee Injury and Osteoarthritis Outcome Score JR Computer Adapted Test (Pt Reported) 54.084 [place] Quality of Life Survey Physical (Pt Reported) 26.5635 24.4658 27.2771 [place] Quality of Life Survey Mental (Pt Reported) 66.8309 63.5371 62.2227 Short Form 12 Quality of Life survey Physical Health (Pt Reported) 26.4215 23.8612 26.895 Short Form 12 Quality of Life survey Mental Health (Pt Reported) 67.9731 64.8893 61.9912 Single item literacy Screener 1 Physical Exam Filed Vitals: 06/15/23 1051 Temp: 37 C (98.6 F) TempSrc: Tympanic Estimated body mass index is 35.69 kg/m as calculated from the following: Height as of 05/11/23: 1.626 m (5' 4.02"). Weight as of 05/11/23: 94.3 kg (208 lb). General: generally well-nourished and in no acute distress HEENT: normocephalic, atraumatic, sclera anicteric. Psych: mood and affect normal , cooperative Card: Peripheral pulses: normal in affected extremity (s) Resp: equal chest rise, non-tachypneic, non-labored breathing Skin: no rash, normal Neuro: Sensation: normal on affected extremity (s) Knee Exam, Bilateral Inspection: right knee erythema and warmth. Dehiscence of about 50% of surgical site with eschar and serous drainage. Soft tissue swelling of the right lower leg with faint erythema along distal lower leg Palpation: tenderness to palpation at medial joint line on the right ROM: Flexion/Neutral/Extension: R - 90/0/0 without pain Assessment and Plan: Status post total right knee replacement (Primary) Infection associated with internal knee prosthesis, initial encounter Recommend ED for further management Hilary Araujo PA-C [facility] [address] [place] [address] documented in this encounter Nursing Notes * Esmer Whitaker LPN - 06/15/2023 10:48 AM EST Right Robotic assisted Total Knee Arthroplasty 05/11/23 physical therapy advised pt to have wound checked. Pt's wound is de hissed and malodorous. Pt states she doesn't remember when it opened this much. Esmer PASCAL documented in this encounter Plan of Treatment Upcoming Encounters Date Type Department Care Team (Late st Contact Info) Description 06/15/2023 6:00 PM EST Anticoagulation Pharmacy Call Center WB [address] [place] [address] [facility] 58 [address] [facility] [place] [address] Paroxysmal atrial fibrillation (HCC)* 06/16/2023 6:45 AM EST Anticoagulation Pharmacy Call Center 58[address]60 [facility] [place] [address] [facility] 58 60 [facility] [place] [address] 06/29/2023 11:00 AM EST Laboratory Laboratory, [facility] 132 [place] [phone] [facility] 132 [place] [address] 06/30/2023 6:15 AM EST Anticoagulation Pharmacy Call [facility] [address] [facility] [place] [address] [facility] 58 60 [place] [address] 07/02/2023 11:00 AM EST Office Visit Orthopaedics [facility] 132 [place] [address] Balta Hyde PA-C [address] [place] [address] 09/30/2023 9:20 AM EDT Office Visit Family Practice [facility] [address] [place] [address] Shiva Rich III, MD [address] [place] [address] 10/01/2023 3:15 PM EDT Office Visit Hematology/Oncology [facility] [address] [place] [address] Efraín Leone MD [address] [place] [address] 11/12/2023 11:20 AM EDT Office Visit Dermatology [facility] [address] [place] [address] Margarita Figueredo PA-C [address] [place] [phone] 02/25/2024 9:30 AM EDT Imaging Radiology [facility] 1st [facility] [place] [address] [place] [address] 04/21/2024 10:30 AM EDT Office Visit Sleep Disorders Ctr [facility] 132 [facility] [place] [phone] Viktoriya White CRNP [address] [place] [address] Scheduled Procedures Name Priority Associated Diagnoses Date/Ti [...] 08/0 07/2022, 10/06/2022, Additional history exists GFR 06/15/2024 06/15/2023, 04/20, 05/04/2023, Additional history exists DTaP,Tdap,and Td Vaccines (2 [...] this encounter Medical Devices Implanted Type Area Inspector Production Plastic Parts Device Identifier Shelf Expiration Date Model / Serial / Lot Knee X3 Ins Pos Cs Sz4 11 - Sn/A - [id number] Implanted:Qty: 1 on 05/11/2023 by Forrest Davidson, at OR [facility] Right: Knee FRANNIE : ORTHOPAEDICS 10/16/2027 [id number] / N/A / [id number] documented as of this encounter Visit Diagnoses Diagnosis Paroxysmal atrial fibrillation (HCC)- Primary Atrial fibrillation Status post total right knee replacement- Primary Infection associated with internal knee prosthesis, initial encounter documented in this encounter Advance Directives Latest Code Status on File Code Status Date Activated Date Inactivated Comments Full Code 05/11/2023 4:30 PM 05/12/2023 8:11 PM Thi s order reflects the patients wishes and were consensually agreed upon. Question Answer Comments Discussion of Advance Directives occurred with: Patient Care Teams Supervisor Bridges And Buildings Relationship Specialty Start Date End Date Shiva Rich III, MD [address] [place] [address] PCP - General Family Medicine 09/10/18 documented as of this encounter
--- OUTSIDE RECORDS SUMMARY | 2023-07-14 14:37 | External Medical Summary ---
Author Name Unknown Address Unknown Organization K1F:[facility]ATORY [facility] - [address] [facility] [place] [address] Laboratory Report Ordering Provider Test Date Status JODIE PORTILLO 06/15/2023 14:46:42 Final Observation Date Value Abnormality Reference (Units ) Status BUN 06/15/2023 14:46:42 18 6-20 (mg/dL) Final Creatinine 06/15/2023 14:46:42 1.0 0.5-1.0 (mg/dL) Final Glomerular filtration rate/1.73 sq M.predicted [Volume Rate/Area] in Serum, Plasma or Blood by Creatinine-based formula (CKD-EPI) 06/15/2023 14:46:42 59 Below low normal >=60 (mL/min) Final eGFR is calculated based on the CKD-EPI 2020 equation SODIUM 06/15/2023 14:46:42 134 Below low normal 135 -146 (mmol/L) Final Potassium 06/15/2023 14:46:42 4.0 3.5-5.1 (m mol/L) Final Cl 06/15/2023 14:46:42 95 Below low normal 98- 107 (mmol/L) Final CO2 06/15/2023 14:46:42 26 22-32 (mmo l/L) Final Anion gap 06/15/2023 14:46:42 13 7-15 (mmol /L) Final Glucose 06/15/2023 14:46:42 125 Above high normal 70 -120 (mg/dL) Final Albumin 06/15/2023 14:46:42 4.1 3.8-5.0 (g /dL) Final AST (Aspartate aminotransferase) 06/15/2023 14:46:42 33 10-35 (U/L) Fin al Alk Phos 06/15/2023 14:46:42 133 Above high normal 35 -130 (U/L) Final Bilirubin, Total 06/15/2023 14:46:42 0.4 <=1 .2 (mg/dL) Final Calcium 06/15/2023 14:46:42 9.7 8.4-10.2 ( mg/dL) Final Protein 06/15/2023 14:46:42 7.5 6.0-8.3 (g /dL) Final ALT (Alanine aminotransferase) 06/15/2023 14:46:42 30 10-35 (U/L) Fernando jenkins Performing Location LABORATORY [facility] - [address] [place] [address] [place] [address]
--- OUTSIDE RECORDS SUMMARY | 2023-07-14 14:37 | External Medical Summary ---
Author Name Unknown Address Unknown Organization K1F:LABORATORY [facility] - [address] [facility]. [place] [address] Laboratory Report Ordering Provider Test Date Status JODIE PORTILLO 06/15/2023 14:46:42 Final Observation Date Value Abnormality Reference (Units ) Status SYNC LEUKOCYTES IN BLOOD BY AUTOMATED COUNT 06/15/2023 14:46:42 7.83 4.00-10.80 (K/uL) Final Segs 06/15/2023 14:46:42 72.7 40.0-75.0 (%) Final Lymphs % 06/15/2023 14:46:42 16.6 Below low normal 18.0-42.0 (%) Final Monos 06/15/2023 14:46:42 7.2 1.0-11.0 (%) Final Eosinophils 06/15/2023 14:46:42 2.7 0.0-6.0 (%) Final Basos 06/15/2023 14:46:42 0.4 0.0-2.0 (%) Final Immature Granulocyte, Percent 06/15/2023 14:46:42 0.4 0.0-2.0 (%) Final Absolute Segs 06/15/2023 14:46:42 5.70 1.80-7.70 (K/uL) Final Lymphs, absolute 06/15/2023 14:46:42 1.30 1.00-4.80 (K/ul) Final Monos, Abs 06/15/2023 14:46:42 0.56 0.00-1.10 (K/uL) Final Eos, Abs 06/15/2023 14:46:42 0.21 0.00-0.70 (K/uL) Final Basos, Abs 06/15/2023 14:46:42 0.03 0.00-0.20 (K/uL) Final Immature Granulocytes, Number 06/15/2023 14:46:42 0.03 0.00-0.20 (K/uL) Final Performing Location LABORATORY [facility] - [address] [facility] [address]
--- OUTSIDE RECORDS SUMMARY | 2023-07-14 14:37 | External Medical Summary ---
Author Name Unknown Address Unknown Organization : Laboratory Report Ordering Provider Test Date Status ALMA PORTILLO 06/15/2023 21:15:52 Final Observation Date Value Abnormality Reference (Units ) Status Glucose Point of Care 06/15/2023 21:15:52 116 70-120 (mg/dL) Final Performing Location
--- OUTSIDE RECORDS SUMMARY | 2023-07-14 14:37 | External Medical Summary ---
Author Name Unknown Address Unknown Organization [id number]:LABORATORY [address] [place] [address] Laboratory Report Ordering Provider Test Date Status LINDSEYFELICIANO 06/15/2023 14:46:42 Final Observation Date Value Abnormality Reference (Units ) Status Bacteria identified in Specimen by Culture 06/15/2023 14:46:42 No growth Final Test: Culture, Blood (Site 2)
Specimen Source: Blood, Venous
Specimen Type: Blood
Specimen Date: 06/15/2023 2:46 PM
Result Date: 06/20/2023 3:01 PM
Result Status: Final result
Resulting Lab: LAB[facility]ATORY [facility]
[address] [place] [address]
[place] [address]

CULTURE

No growth

null Performing Location LABORATORY [address] [place] [address]
--- OUTSIDE RECORDS SUMMARY | 2023-07-14 14:37 | External Medical Summary ---
Author Name Unknown Address Unknown Organization [id number]:LABORATORY [facility] - [address] [facility] [address] Laboratory Report Ordering Provider Test Date Status ALMA PORTILLO 06/15/2023 14:46:42 Final Observation Date Value Abnormality Reference (Units ) Status Erythrocyte sedimentation rate by Photometric method 06/15/2023 14:46:42 62 Above high normal <30 (mm/hour) Final Performing Location LABORATORY [facility] - [address] [facility] [address]
--- OUTSIDE RECORDS SUMMARY | 2023-07-14 14:37 | External Medical Summary | Summary of Care ---
Author Name Unknown Organization [facility] Address [address] [facility] [place] [address] Phone [phone] Care Team Providers Care Fire Sprinkler Service Technician Name Role Phone Hilario ANDRADE MD, Shiva Kebede Primary Care Provider [phone] Reason for Visit * Reason Comments Dosage Adjustment Via Phone (anticoag Cl inic) Encounter Details Date Type Department Care Team (Latest Contact Info) Description 06/15/2023 6:00 PM EST Anticoagulation Pharmacy Call Center [phone] [place] [address] [facility], [facility] 58 60 Public [facility] [place] [address] Paroxysmal atrial fibrillation (HCC)* Allergies Active Allergy [...] (5mg) ALL OTHER EVENINGS OR DIRECTED BY [facility]. 105 Tablet 3 07/18/2022 Active Multi [...] right 05/11/2023 Alcohol abuse 05/11/2023 Atherosclerosis of [place] co ronary artery without angina pectoris 09/10/2022 [...] Resolved Date Atherosclerotic heart diseas e of [place] coronary artery with other forms of angina [...] mRNA, LNP-s, No Pre serve, 2-Dose Series ([facility]) 05/16/2021,09/23/2020,08/26/2020 Covid-19, Mrna, Lnp-s, Pf, B ivalent, [...] this encounter Progress Notes * Anabelle Cortez, senior research project manager - 06/15/2023 2:53 PM EST Contacts Type Contact Phone/Fax 06/15/2023 02:52 PM EST Phone (Outgoing) Nenita Fleming (Self) [phone] (M) Left Message Subjective Advised patient to contact Anticoagulation Clinic if any unusual bruising or bleeding, recent illness, changes in medication, or questions/concerns. PT/INR results, Coumadin dose instructions, and next PT/INR date communicated as noted by Pharmacist: Yes JERONIMO THOMSON Tech 06/15/2023, 2:53 PM * Nohelia Cortes RPh - 06/15/2023 2:48 PM EST Coumadin Clinic (region specific) Objective Current Warfarin Dose As of 06/15/2023 Warfarin maintenance plan: 7.5 mg (5 mg x 1.5) every Fri; 5 mg (5 mg x 1) all other days INR Result As of 06/15/2023 INR goal: 2.0-3.0 INR used for dosin.0 (06/15/2023) Assessment & Plan Warfarin Plan As of 06/15/2023 Full warfarin instructions: 7.5 mg every Fri; 5 mg all other days No change documented: Nohelia Cortes RPh Next INR check: 06/29/2023 Pt currently in ED- [facility] will follow up at discharge Repeat PT/INR in 2 week(s) Weekly dose: not changed Additional Dosing Information: Description Edson Gambino- pt prefers Thurs AMIODARONE started 04/28/22 Tech to contact patient with dose instructions as noted. Nohelia Cortes RPh 06/15/2023, 2:48 PM documented in this encounter Plan of Treatment Upcoming Encounters Date Type Department Care Team (Late st Contact Info) Description 06/16/2023 6:45 AM EST Anticoagulation Pharmacy Call Center WB [phone] [place] [address] [facility] 58 60 [facility] [place] [address] 06/29/2023 11:00 AM EST Laboratory Laboratory, Edson Gamb[address] [place] [phone] [facility] [address] [place] [address] 06/30/2023 6:15 AM EST Anticoagulation Pharmacy Call Center WB [address] [place] [address] [facility], [facility] 58 60 [facility] [place] [address] 07/02/2023 11:00 AM EST Office Visit Orthopaedics [facility] [address] [place] [address] Balta Hyde PA-C [address] [place] [address] 09/30/2023 9:20 AM EDT Office Visit Family Practice [facility] [address] [place] [address] Shiva Rich III, MD [address] [facility] [place] [address] 10/01/2023 3:15 PM EDT Office Visit Hematology/Oncology [facility] [address] [place] [address] Efraín Leone MD [address] [place] [address] 11/12/2023 11:20 AM EDT Office Visit Dermatology [facility] [address] [place] [address] Margarita Figueredo PA-C [address] [place] [phone] 02/25/2024 9:30 AM EDT Imaging Radiology [facility] [address] [facility] [address] [place] [address] 04/21/2024 10:30 AM EDT Office Visit Sleep Disorders Ctr [facility] [address] [place] [phone] Viktoriya White CRNP [address] [place] [address] Scheduled Procedures Name Priority Associated Diagnoses Date/Ti [...] this encounter Medical Devices Implanted Type Area Med Spa Manager Device Identifier Shelf Expiration Date Model / Serial / Lot Knee X3 Ins Pos Cs Sz4 11 - Sn/A - [id number] Implanted:Qty: 1 on 05/11/2023 by Forrest Davidson, DO at OR [facility] Right: Knee FRANNIE : ORTHOPAEDICS [...] Advance Directives occurred with: Patient Care Teams Fire Sprinkler Service Technician Relationship Specialty Start Date End Date Shiva Rich III, MD [address] [place] [address] PCP - General Family Medicine 09/10/18 documented as of this encounter
--- OUTSIDE RECORDS SUMMARY | 2023-07-14 14:37 | External Medical Summary | Summary of Care ---
Author Name Unknown Organization [facility] [address] [facility] [address] Phone [phone] Care Team Providers Care Power Press Tender Name Role Phone Hilario ANDRADE MD, Shiva Kebede Primary Care Provider [phone] Encounter Details Date Type Department Care Team (Late st Contact Info) Description 06/09/2023 Orders Only Orthopaedics, [place] [address] [place] [address] Balta Hyde PA-C [address] [place] [place] [address] Status post total right knee replacement* Allergies [...] (5mg) ALL OTHER EVENINGS OR DIRECTED BY [facility]. 105 Tablet 3 07/18/2022 Active Multi [...] the morning. 140 Tablet 0 05/13/2023 Active oxyCODONE-Acetaminoph en 5-325 MG Oral Tablet (Percocet) Take 1 Tablet by mouth every 4 hours as needed for Pain, Severe. 30 Tablet 0 05/16/2023 Active Cephalexin 500 MG Oral Capsule Take 1 Capsule by mouth in the morning and 1 Capsule at noon and 1 Capsule in the evening and 1 Capsule before bedtime. 28 Capsule 0 05/21/2023 Active oxyCODONE-Acetaminoph en 5-325 MG Oral Tablet (Percocet)Indications :Status post total right knee replacement Take 1 Tablet by mouth every 6 hours as needed for Pain, Severe. 20 Tablet 0 05/21/2023 Active Metoprolol Succinate ER 25 MG Oral Tablet Extended Release 24 Hour (toPROL XL)Indications:Paroxy smal atrial fibrillation (HCC) Take 1 Tablet by mouth in the morning. 90 Tablet 3 05/30/2023 Active oxyCODONE-Acetaminoph en 5-325 MG Oral Tablet (Percocet)Indications :Status post total right knee replacement Take 1 Tablet by mouth every 8 hours as needed for Pain, Severe for up to 5 days. 15 Tablet 0 06/09/2023 06/14/2023 Active documented as of this encounter (statuses as of 06/09/2023) Active Problems Problem Noted Date Diagnosed Date Other iron deficiency anemias 05/22/2023 Postoperative anemia due to acute blood loss S/P total knee arthroplasty, right 05/11/2023 Alcohol abuse 05/11/2023 Atherosclerosis of [place] co ronary artery without angina pectoris 09/10/2022 [...] Resolved Date Atherosclerotic heart diseas e of [place] coronary artery with other forms of angina [...] mRNA, LNP-s, No Pre serve, 2-Dose Series (Datalot) 05/16/2021,09/23/2020,08/26/2020 Covid-19, Mrna, Lnp-s, Pf, B ivalent, 30 Mcg, IM, 12 yrs and above (Datalot) 05/09/2022 Pneumococcal Conjugate Vacc, 13 Valent (Prevnar) [...] as of this encounter Progress Notes * Balta Hyde PA-C - 06/09/2023 12:34 PM EST Updated prescription for pain medications sent to patient's preferred pharmacy per request. Full PDMP record and allergy list reviewed before prescription placement. documented in this encounter Plan of Treatment Upcoming Encounters Date Type Department Care Team (Late st Contact Info) Description 06/12/2023 11:30 AM EST Laboratory Laboratory, [facility] [address] [facility] [place] [phone] [facility] [address] [facility] [place] [address] 06/12/2023 6:00 PM EST Anticoagulation Pharmacy Call Center [phone] [facility] [place] [address] [facility] 58 60 [facility] [place] [address] 07/02/2023 11:00 AM EST Office Visit Orthopaedics [facility] [address] [facility] [place] [address] Balta Hyde PA-C [address] [place] [place] [address] 09/30/2023 9:20 AM EDT Office Visit Family Practice [facility] [address] [place] [address] Shiva Rich III, MD [address] [facility] [place] [address] 10/01/2023 3:15 PM EDT Office Visit Hematology/Oncology [facility] [place] [address] [address] Efraín Leone MD [address] [place] [address] 11/12/2023 11:20 AM EDT Office Visit Dermatology [facility] [place] [address] [place] [address] Margarita Figueredo PA-C [address] [place] [phone] 02/25/2024 9:30 AM EDT Imaging Radiology [address] [place] [address] 04/21/2024 10:30 AM EDT Office Visit Sleep Disorders Ctr [facility] [address] [place] [phone] Viktoriya White CRNP [address] [place] [address] Scheduled Procedures Name Priority Associated Diagnoses Date/Ti [...] this encounter Medical Devices Implanted Type Area Power Electronics Research Engineer Device Identifier Shelf Expiration Date Model / Serial / Lot Knee X3 Ins Pos Cs Sz4 11 - Sn/A - [id number] Implanted:Qty: 1 on 05/11/2023 by Forrest Davidson, at OR [facility] Right: Knee FRANNIE : ORTHOPAEDICS 10/16/2027 [...] Advance Directives occurred with: Patient Care Teams Power Press Tender Relationship Specialty Start Date End Date Shiva Rich III, MD [address] [place] [address] PCP - General Family Medicine 09/10/18 documented as of this encounter
--- OUTSIDE RECORDS SUMMARY | 2023-07-14 14:38 | External Medical Summary ---
Author Name Unknown Address Unknown Organization K09:[facility] [place] [address] Laboratory Report Ordering Provider Test Date Status JOSHUA MARR 06/04/2023 14:28:12 Final Observation Date Value Abnormality Reference (Units ) Status SYNC LEUKOCYTES IN BLOOD BY AUTOMATED COUNT 06/04/2023 14:28:12 7.44 4.00-10.80 (K/uL) Final Segs 06/04/2023 14:28:12 73.1 40.0-75.0 (%) Final Lymphs % 06/04/2023 14:28:12 14.9 Below low normal 18.0-42.0 (%) Final Monos 06/04/2023 14:28:12 7.9 1.0-11.0 (%) Final Eosinophils 06/04/2023 14:28:12 3.8 0.0-6.0 (%) Final Basos 06/04/2023 14:28:12 0.3 0.0-2.0 (%) Final Absolute Segs 06/04/2023 14:28:12 5.44 1.80-7.70 (K/uL) Final Lymphs, absolute 06/04/2023 14:28:12 1.11 1.00-4.80 (K/ul) Final Monos, Abs 06/04/2023 14:28:12 0.59 0.00-1.10 (K/uL) Final Eos, Abs 06/04/2023 14:28:12 0.28 0.00-0.70 (K/uL) Final Basos, Abs 06/04/2023 14:28:12 0.02 0.00-0.20 (K/uL) Final Performing Location [facility] [address] [place] [address]
--- OUTSIDE RECORDS SUMMARY | 2023-07-14 14:38 | External Medical Summary | Summary of Care ---
Author Name Unknown Organization [facility] Address [address] [facility] [place] [address] Phone [phone] Care Team Providers Care Roll Edge Stitcher Hand Name Role Phone Hilario ANDRADE MD, Shiva Kebede Primary Care Provider [phone] Encounter Details Date Type Department Care Team (Late st Contact Info) Description 05/22/2023 Orders Only Hematology/Oncology [facility] 200 [facility] [place] [address] Efraín Leone MD 200 [facility] [place] [address] Allergies Active Allergy Reactions Criticality Noted Date Comments Bee Venom Edema Other 01/10/2016 Lisinopril Cough 09/04/2016 documented as of this encounter (statuses as of 06/01/2023) Medications Medication Sig Dispensed Refills Start Date [...] (5mg) ALL OTHER EVENINGS OR DIRECTED BY [facility]. 105 Tablet 3 07/18/2022 Active Multi [...] Pain, Severe. 20 Tablet 0 05/21/2023 Active documented as of this encounter (statuses as of 06/01/2023) Active Problems Problem Noted Date Diagnosed Date Other iron deficiency anemias 05/22/2023 Postoperative anemia due to acute blood loss S/P total knee arthroplasty, right 05/11/2023 Alcohol abuse 05/11/2023 Atherosclerosis of [place] co ronary artery without angina pectoris [...] as of this encounter (statuses as of 06/01/2023) Resolved Problems Problem Noted Date Diagnosed Date Resolved Date Atherosclerotic heart diseas e of [place] coronary artery with other forms of [...] as of this encounter (statuses as of 06/01/2023) Immunizations Name Administration Dates Next Due COVID-19 mRNA, LNP-s, No Pre serve, 2-Dose Series (Syndiant) 05/16/2021,09/23/2020,08/26/2020 Covid-19, Mrna, Lnp-s, Pf, B ivalent, 30 Mcg, IM, 12 yrs and above (Syndiant) 05/09/2022 Pneumococcal Conjugate Vacc, 13 Valent (Prevnar) [...] Upcoming Encounters Date Type Department Care Team (Latest Contact Info) Description 06/01/2023 6:15 PM EST Anticoagulation Pharmacy Call Center WB 58-60 [facility] [place] [address] [facility] 58 60 [facility] [place] [address] Anticoagulation management encounter*; Paroxysmal atrial fibrillation (HCC) 06/04/2023 1:00 PM EST Laboratory Laboratory, [facility] 132 [facility] [place] [phone] [facility] [address] [facility] [place] [address] 06/04/2023 1:30 PM EST Hem/Onc Treatment Hematology/Oncolog y Treatment, [place] [address] [place] [address] Martha, Chair 7 [facility] [address] [place] [address] 06/05/2023 6:15 AM EST Anticoagulation Pharmacy Call Center WB [address] [facility] [place] [address] C[facility]ps, [facility] 58 60 [facility] [place] [address] 07/02/2023 11:00 AM EST Office Visit Orthopaedics [facility] [place] [address] [facility] [place] [address] Balta Hyde PA-C [address] [place] [place] [address] 09/30/2023 9:20 AM EDT Office Visit Family Practice [facility] Martha [place] [address] [place] [address] [address] Shiva Rich III, MD 200 [facility] COUNT INCLUDES THE [facility] [place] [address] 10/01/2023 3:15 PM EDT Office Visit Hematology/Oncolog y [facility] Martha [place] [address] [place] [address] [address] Efraín Leone MD [address] [place] [address] 11/12/2023 11:20 AM EDT Office Visit Dermatology [facility] [place] [address] [place] [address] Margarita Figueredo PAAna 200 [facility] [place] [phone] 02/25/2024 9:30 AM EDT [facility] 1st [facility], [place] [address] [facility] [place] [address] 04/21/2024 10:30 AM EDT [facility] [address] [place] [phone] Viktoriya White CRNP [address] [place] [address] Scheduled Procedures Name Priority Associated Diagnoses Date/Ti [...] this encounter Medical Devices Implanted Type Area Senior Technical Support Analyst Device Identifier Shelf Expiration Date Model / Serial / Lot Knee X3 Ins Pos Cs Sz4 11 - Sn/A - [id number] Implanted:Qty: 1 on 05/11/2023 by Forrest Davidson, DO at OR [facility] Right: Knee [...] Advance Directives occurred with: Patient Care Teams Roll Edge Stitcher Hand Relationship Specialty Start Date End Date Shiva Rich III, MD 200 [place] [address] PCP - General Family Medicine 09/10/18 documented as of this encounter
--- OUTSIDE RECORDS SUMMARY | 2023-07-14 14:38 | External Medical Summary | Summary of Care ---
Author Name Unknown Organization [facility] Address [address] [facility] [place] [address] Phone [phone] Care Team Providers Care Construction Recruiter Name Role Phone Hilario ANDRADE MD, Shiva Kebede Primary Care Provider [phone] Reason for Visit * Reason Comments IV Therapy Venofer 2/2 Encounter Details Date Type Department Care Team (Latest Contact Info) Description 06/04/2023 1:30 PM EST Hem/Onc Treatment Hematology/Oncology Treatment, [place] [address] [place] [address] Martha, Chair 7 Hem Onc Scen[address] [place] [address] Other iron deficiency anemias*; Other iron deficiency anemia; Paroxysmal atrial fibrillation (HCC) Allergies Active Allergy Reactions Criticality Noted Date Comments Bee Venom Edema Other 01/10/2016 Lisinopril Cough 09/04/2016 documented as of this encounter (statuses as of 06/04/2023) Medications Medication Sig Dispensed Refills Start Date [...] (5mg) ALL OTHER EVENINGS OR DIRECTED BY [facility]. 105 Tablet 3 07/18/2022 Active Multi Vitamin [...] as of this encounter (statuses as of 06/04/2023) Active Problems Problem Noted Date Diagnosed Date Other iron deficiency anemias 05/22/2023 Postoperative anemia due to acute blood loss S/P total knee arthroplasty, right 05/11/2023 Alcohol abuse 05/11/2023 Atherosclerosis of [place] co ronary artery without angina pectoris 09/10/2022 [...] as of this encounter (statuses as of 06/04/2023) Resolved Problems Problem Noted Date Diagnosed Date Resolved Date Atherosclerotic heart diseas e of [place] coronary artery with other forms of angina [...] as of this encounter (statuses as of 06/04/2023) Immunizations Name Administration Dates Next Due COVID-19 mRNA, LNP-s, No Pre serve, 2-Dose Series ([employer]) 05/16/2021,09/23/2020,08/26/2020 Covid-19, Mrna, Lnp-s, Pf, B ivalent, [...] Sign Reading Time Taken Comments Blood Pressure 99/52 06/04/2023 1:56 PM EST Pulse 54 06/04/2023 1:56 PM EST Temperature 36.8 C (98.2 F) 06/04/2023 1:56 PM ES T Respiratory Rate 18 06/04/2023 1:56 PM EST Oxygen Saturation - - Inhaled Oxygen Concentration [...] No 05/11/2023 documented as of this encounter Nursing Notes * Kathe Fernandez RN - 06/04/2023 4:05 PM EST Chair 8 Pt arrives for venofer. She states she's doing well, ambulating with a walker. IV started in the left forearm without difficulty, good blood return noted, flushed with NSS, fluids infusing. Safety and Risk for Injury Patient will remain free from injury. Ensure appropriate safety devices are available. Provide and maintain safe environment. Goals: Patient will remain free from injury. Possible barriers to meeting goals: ambulation with IV pole, use of walker Stability of the patient: Moderately unstable - medium risk of patient condition declining or worsening Summary regarding today's goals: Met: Pt remained free of injury during treatment Patient tolerated treatment well and was discharged in stable condition. No coverage needed today. documented in this encounter Plan of Treatment Upcoming Encounters Date Type Department Care Team (Late st Contact Info) Description 06/05/2023 6:15 AM EST Anticoagulation Pharmacy Call Center WB 58-60 [facility] [place] [address] [facility] 58 60 [place] [address] 07/02/2023 11:00 AM EST Office Visit Orthopaedics [facility] 132 [facility] [place] [address] Balta Hyde PA-C [address] [place] [address] [place] [address] 09/30/2023 9:20 AM EDT Office Visit Family Practice [facility] [place] [address] [place] [address] [address] [address] Shiva Rich III, MD 200 [facility] [place] [address] 10/01/2023 3:15 PM EDT Office Visit Hematology/Oncology [facility] [place] [address] [place] [address] Efraín Leone MD [address] [place] [address] 11/12/2023 11:20 AM EDT Office Visit Dermatology [facility] [address] [place] [address] Margarita Figueredo PA-C [address] [place] [phone] 02/25/2024 9:30 AM EDT Imaging Radiology [address] 132 [facility] [place] [address] 04/21/2024 10:30 AM EDT Office Visit Sleep Disorders Ctr [facility] 132 [facility] [place] [phone] Viktoriya White CRNP [address] [place] [address] Scheduled Procedures Name Priority Associated Diagnoses Date/Ti [...] this encounter Medical Devices Implanted Type Area Fitness Center Attendant Device Identifier Shelf Expiration Date Model / Serial / Lot Knee X3 Ins Pos Cs Sz4 11 - Sn/A - [id number] Implanted:Qty: 1 on 05/11/2023 by Forrest Davidson, at OR [facility] Right: Knee FRANNIE : ORTHOPAEDICS 10/16/2027 [id number] / N/A / [id number] documented as of this encounter Procedures Procedure Name Priority Date/Time Associated Diagnosis Comments DIFFERENTIAL, AUTOMATED STAT 06/04/2023 2:28 PM EST Other iron deficiency anemia CBC STAT 06/04/2023 2:28 PM EST Other iron deficiency anemia PT INR Routine 06/04/2023 2:28 PM EST Paroxysmal atrial fibrillation (HCC) CBC STAT 06/04/2023 2:28 PM EST Other iron deficiency anemia documented in this encounter Results * (ABNORMAL) DIFFERENTIAL, AUTOMATED (06/04/2023 2:28 PM EST) WBC 7.44 4.00 - 10.80 K/uL 06/04/2023 2:37 PM EST [facility] 56-02 Neutrophils % 73.1 40.0 - 75.0 % 06/04/2023 2:37 PM EST LABORATORY [place] 56-02 Lymphocytes % 14.9(L) 18.0 - 42.0 % 06/04/2023 2:37 PM EST LABORATORY [place] 56-02 Monocytes % 7.9 1.0 - 11.0 % 06/04/2023 2:37 PM EST LABORATORY [place] 56-02 Eosinophils % 3.8 0.0 - 6.0 % 06/04/2023 2:37 PM EST [facility] 56-02 Basophils % 0.3 0.0 - 2.0 % 06/04/2023 2:37 PM EST LABORATORY [place] 56-02 Absolute Neutrophils 5.44 1.80 - 7.70 K/uL 06/04/2023 2:37 PM EST LABORATORY [place] 56-02 Absolute Lymphocytes 1.11 1.00 - 4.80 K/ul 06/04/2023 2:37 PM EST LABORATORY [place] 56-02 Absolute Monocytes 0.59 0.00 - 1.10 K/uL 06/04/2023 2:37 PM EST [facility] 56-02 Absolute Eosinophils 0.28 0.00 - 0.70 K/uL 06/04/2023 2:37 PM EST LABORATORY [place] 56-02 Absolute Basophils 0.02 0.00 - 0.20 K/uL 06/04/2023 2:37 PM EST LABORATORY [place] 56-02 Blood Venous blood specimen / Unknown Venipuncture / Unknown 06/04/2023 2:28 PM EST 06/04/2023 2:28 PM EST Efraín Leone MD LAB BLOOD ORDERABLES [facility] 56 200 [place] [address] * (ABNORMAL) CBC (06/04/2023 2:28 PM EST) WBC 7.44 4.00 - 10.80 K/uL 06/04/2023 2:37 PM EST [address] RBC 2.84 3.85 - 5.15 M/uL 06/04/2023 2:37 PM EST [place] [address] HGB 8.4(L) 12.0 - 15.3 g/dL 06/04/2023 2:37 PM EST [place] [address] HCT 27.5(L) 36.0 - 45.2 % 06/04/2023 2:37 PM EST [address] MCV 96.8 81.5 - 97.5 fL 06/04/2023 2:37 PM EST [address] MCH 29.6 27.0 - 34.0 pg 06/04/2023 2:37 PM EST [place] [address] MCHC 30.5 32.0 - 36.0 g/dL 06/04/2023 2:37 PM EST [place] [address] RDW 14.6 11.5 - 15.5 % 06/04/2023 2:37 PM EST [facility] 56 PLT 362 140 - 400 K/uL 06/04/2023 2:37 PM EST [facility] 56[facility] MPV 8.8 6.6 - 11.1 fL 06/04/2023 2:37 PM [facility] 56[facility] Blood Venous blood specimen / Unknown Venipuncture / Unknown 06/04/2023 2:28 PM EST 06/04/2023 2:28 PM EST Efraín Leone MD LAB BLOOD ORDERABLES [facility] 56 200 [facility] [place] [address] * (ABNORMAL) PT INR (06/04/2023 2:28 PM EST) Prothrombin Time 36.0(H) 11.6 - 15.2 seconds 06/04/2023 2:53 PM EST [facility] 56-02 INR 3.6(H) 0.8 - 1.2 06/04/2023 2:53 PM EST [facility] 56-02 Blood Venous blood specimen / Unknown Venipuncture / Unknown 06/04/2023 2:28 PM EST 06/04/2023 2:28 PM EST Narrative [facility] 56-02 - 06/04/2023 2:53 PM EST Warfarin Therapy INR: 2.0-3.0 conventional anticoagulation INR: 2.5-3.5 high intensity anticoagulation Nohelia Cortes [facility] LAB BLOOD ORDERABLES Performing Organization Address City/State/[facility] Co de Phone Number [facility] [address]- [address] [place] [address] documented in this encounter Visit Diagnoses Diagnosis Other iron deficiency anemia Paroxysmal atrial fibrillation (HCC) Atrial fibrillation documented in this encounter Administered Medications Active Administered Medications - up to 3 most recent administrations Medication Order MAR Action Action Date Dose Rate Site diphenhydrAMINE (Benadryl) inj 50 mg 50 mg, IV Push, ONCE PRN Other, Hypersensitivity Reaction, Starting on Thu06/04/23 at 1418, Until Thu06/05/23 at 1417, For 24 hours EPINEPHrine 1 MG/ML inj 0.3 mg 0.3 mg, Intramuscular, ONCE PRN Other, Hypersensitivity Reaction or Anaphylaxis, Starting on Thu06/04/23 at 1418, Until Thu06/05/23 at 1417, For 24 hours hEParin 100 UNIT/ML Lock Flush inj 500 Units 500 Units (5 mL), IV Lock, PRN Other, IV Flush, Starting on Thu06/04/23 at 1418, Until Thu06/05/23 at 1417, For 24 hours, Do not flush if lock, PICC, or central line not in place; IV infusing or unable to flush. Hydrocortisone Sod Suc (PF) (Solu-Cortef) inj 100 mg 100 mg, IV Push, ONCE PRN Other, Hypersensitivity Reaction, Starting on 06/04/23 at 1418, Until Thu06/05/23 at 1417, For 24 hours NSS infusion 500 mL, Intravenous, at 50 mL/hr, CONTINUOUS, Starting on Ellie 06/04/23 at 1530, Until Thu06/05/23 at 0129 Start Infusion 06/04/2023 2:10 PM EST 500 mL 50 mL/hr oxygen GAS Inhalation, OXYGEN, First dose on Ellie 06/04/23 at 1600, Until Discontinued, Device/Managed by: Low Flow Device, Goal SPO2 (%): 91-95, Starting Device: Nasal Cannula, Inital Flow Rate (LPM): 2, Lowest Support: Nasal Cannula: Flow 0-6 LPM. Titrate up/down by 1 LPM., Higher Support: Non-Rebreather (NRB) Mask: Minimum of 10 LPM. Titrate to maintain bag inflation., Titration Interval: Q2 minutes and as needed., Notify Provider: For sudden DECREASE in resting SPO2 to less than 85% and when escalating delivery device. sodium chloride 0.9 % flush central line 10 mL 10 mL, IV Push, PRN Other, IV Flush, Starting on Ellie 06/04/23 at 1418, Until Thu06/05/23 at 1417, For 24 hours, Do not flush if lock, PICC, or central line not in place; IV infusing or unable to flush. Inactive Administered Medications - up to 3 most recent administrations Medication Order MAR Action Action Date Dose Rate Site Iron Sucrose (Venofer) 300 mg in NSS 250 mL ivpb 300 mg, IV Piggyback, ONCE, 1 dose, On Ellie 06/04/23 at 1600, Administer over 90 Minutes Start Infusion 06/04/2023 2:18 PM EST 300 mg 166.67 mL/hr documented in this encounter Advance Directives Latest Code Status on File Code Status Date Activated Date Inactivated Comments Full Code 05/11/2023 4:30 PM 05/12/2023 8:11 PM Thi s order reflects the patients wishes and were consensually agreed upon. Question Answer Comments Discussion of Advance Directives occurred with: Patient Care Teams Construction Recruiter Relationship Specialty Start Date End Date Shiva Rich III, MD 200 [facility] [place] [address] PCP - General Family Medicine 09/10/18 documented as of this encounter
--- OUTSIDE RECORDS SUMMARY | 2023-07-14 14:38 | External Medical Summary | Summary of Care ---
Author Name Unknown Organization [facility] Address [address] [facility] [place] [address] Phone [phone] Care Team Providers Care Churn Tender Name Role Phone Hilario ANDRADE MD, Shiva Kebede Primary Care Provider [phone] Encounter Details Date Type Department Care Team (Late st Contact Info) Description 06/02/2023 Patient Reported Data Patient Survey Ortho OBERD Allergies Active Allergy Reactions Criticality Noted Date Comments Bee Venom Edema Other 01/10/2016 Lisinopril Cough 09/04/2016 documented as of this encounter (statuses as of 06/02/2023) Medications Medication Sig Dispensed Refills Start Date [...] (5mg) ALL OTHER EVENINGS OR DIRECTED BY [facility]. 105 Tablet 3 07/18/2022 Active Multi [...] as of this encounter (statuses as of 06/02/2023) Active Problems Problem Noted Date Diagnosed Date Other iron deficiency anemias 05/22/2023 Postoperative anemia due to acute blood loss S/P total knee arthroplasty, right 05/11/2023 Alcohol abuse 05/11/2023 Atherosclerosis of [place] co ronary artery without angina pectoris 09/10/2022 [...] as of this encounter (statuses as of 06/02/2023) Resolved Problems Problem Noted Date Diagnosed Date Resolved Date Atherosclerotic heart diseas e of [place] coronary artery with other forms of angina [...] as of this encounter (statuses as of 06/02/2023) Immunizations Name Administration Dates Next Due COVID-19 mRNA, LNP-s, No Pre serve, 2-Dose Series ([employer]) 05/16/2021,09/23/2020,08/26/2020 Covid-19, Mrna, Lnp-s, Pf, B ivalent, 30 Mcg, IM, 12 yrs and above ([employer]) 05/09/2022 Pneumococcal Conjugate Vacc, 13 Valent (Prevnar) [...] Care Team (Late st Contact Info) Description 06/04/2023 1:00 PM EST Laboratory Laboratory, [facility] 132 [facility] [place] [phone] [facility] 132 [facility] [place] [address] 06/04/2023 1:30 PM EST Hem/Onc Treatment Hematology/Oncology Treatment, [place] [address] [place] [address] Martha, Chair 7 Hem Onc Scenery [address] [place] [address] 06/05/2023 6:15 AM EST Anticoagulation Pharmacy Call Center WB [address] Public [place] [address] [facility] 58 60 [facility] [place] [address] 07/02/2023 11:00 AM EST Office Visit Orthopaedics [facility] 132 [facility] [place] [address] Balta Hyde PA-C [address] [place] [address] [place] [address] 09/30/2023 9:20 AM EDT Office Visit [facility] [address] [place] [address] Shiva Rich III, MD [address] [facility] [place] [address] 10/01/2023 3:15 PM EDT Office Visit Hematology/Oncology [facility] [place] [address] [place] [address] Efraín Leone MD 200 [facility] [place] [address] 11/12/2023 11:20 AM EDT Office Visit Dermatology [facility] [address] [place] [address] Margarita Figueredo PA-C 200 [facility] [place] [phone] 02/25/2024 9:30 AM EDT Imaging Radiology [facility] 1st [facility] 132 [facility] [place] [address] 04/21/2024 10:30 AM EDT Office Visit Sleep Disorders Ctr [facility] 132 [facility] [place] [phone] Viktoriya White CRNP 132 [place] [address] Scheduled Procedures Name Priority Associated Diagnoses Date/Ti [...] this encounter Medical Devices Implanted Type Area Watch Commander Device Identifier Shelf Expiration Date Model / Serial / Lot Knee X3 Ins Pos Cs Sz4 11 - Sn/A - [id number] Implanted:Qty: 1 on 05/11/2023 by Forrest Davidson, DO at OR [facility] Right: Knee FRANNIE [...] Advance Directives occurred with: Patient Care Teams Churn Tender Relationship Specialty Start Date End Date Shiva Rich III, MD 200 [facility] [place] [address] PCP - General Family Medicine 09/10/18 documented as of this encounter
--- OUTSIDE RECORDS SUMMARY | 2023-07-14 14:38 | External Medical Summary | Summary of Care ---
Author Name Unknown Organization [facility] Address [address] [facility] [place] [address] Phone [phone] Care Team Providers Care Kitchen Food Assembler Name Role Phone Hilario ANDRADE MD, Collette Kebede Primary Care Provider [phone] Reason for Visit * Reason Onset Date Comments Medication Refill 05/30/2023 Encounter Details Date Type Department Care Team (Late st Contact Info) Description 05/30/2023 Refill Family Practice [facility] Martha [place] 200 [facility] [place] [address] Collette Mello III, MD 200 [facility] [address] Paroxysmal atrial fibrillation (HCC) Allergies Active Allergy Reactions Criticality Noted Date Comments Bee Venom Edema Other 01/10/2016 Lisinopril Cough 09/04/2016 documented as of this encounter (statuses as of 05/30/2023) Medications Medication Sig Dispensed Refills Start Date [...] (5mg) ALL OTHER EVENINGS OR DIRECTED BY [facility]. 105 Tablet 3 07/18/2022 [...] the morning. 90 Tablet 3 05/30/2023 Active Metoprolol Succinate ER 25 MG Oral Tablet Extended Release 24 Hour (toPROL XL)Indications:Parox ysmal atrial fibrillation (HCC) Take 1 Tablet by mouth in the morning. 90 Tablet 3 05/09/2023 Discontinue d(Refill) documented as of this encounter (statuses as of 05/30/2023) Active Problems Problem Noted Date Diagnosed Date Other iron deficiency anemias 05/22/2023 Postoperative anemia due to acute blood loss S/P total knee arthroplasty, right 05/11/2023 Alcohol abuse 05/11/2023 Atherosclerosis of [place] co ronary artery without angina pectoris 09/10/2022 [...] as of this encounter (statuses as of 05/30/2023) Resolved Problems Problem Noted Date Diagnosed Date Resolved Date Atherosclerotic heart diseas e of [place] coronary artery with other forms of angina [...] as of this encounter (statuses as of 05/30/2023) Immunizations Name Administration Dates Next Due COVID-19 mRNA, LNP-s, No Pre serve, 2-Dose Series ([employer]) 05/16/2021,09/23/2020,08/26/2020 Covid-19, Mrna, Lnp-s, Pf, B ivalent, 30 Mcg, IM, 12 yrs and above ([employer]) 05/09/2022 Pneumococcal Conjugate Vacc, 13 Valent (Prevnar) [...] or making decisions? (5 years old or older No 05/11/2023 documented as of this encounter Miscellaneous Notes * Telephone Encounter - Melchor Felix [facility] - 05/30/2023 5:31 PM ESTSigned Prescriptions: Disp Refills Metoprolol Succinate ER 25 MG Oral Tablet *90 Tab*3 Sig: Take 1 Tablet by mouth in the morning.Authorizing Provider: COLLETTE MELLO III User: MELCHOR FELIX documented in this encounter Plan of Treatment Upcoming Encounters Date Type Department Care Team (Late st Contact Info) Description 06/01/2023 6:15 PM EST Anticoagulation Pharmacy Call Center 58-60 [facility] [place] [address] [facility] 58 60 [facility] [place] [address] 06/04/2023 1:30 PM EST Hem/Onc Treatment Hematology/Oncology Treatment, [place] [facility] [address] Martha, Chair 7 Hem Onc [address] [place] [address] 07/02/2023 11:00 AM EST Office Visit Orthopaedics [facility] 132 [place] [address] Balta Hyde PA-C [address] [place] [address] [place] [phone] 09/30/2023 9:20 AM EDT Office Visit Family Practice [facility] [place] [address] Maninder Calderon [place] [address] Collette Mello III, MD [address] [place] [address] [place] [address] 10/01/2023 3:15 PM EDT Office Visit Hematology/Oncology [facility] [place] [address] [address] [place] [address] Efraín Leone MD [address] [place] [address] 11/12/2023 11:20 AM EDT Office Visit Dermatology [facility] Martha [place] [address] [place] [address] Margarita Figueredo PA-C [address] [place] [phone] 02/25/2024 9:30 AM EDT Imaging Radiology [address] [facility] [place] [address] 04/21/2024 10:30 AM EDT Office Visit Sleep Disorders Ctr [facility] 132 [facility] [place] [phone] Viktoriya White CRNP [address] [place] [address] Scheduled Procedures Name Priority Associated Diagnoses Date/Ti [...] this encounter Medical Devices Implanted Type Area Counter Intelligence Agent Device Identifier Shelf Expiration Date Model / Serial / Lot Knee X3 Ins Pos Cs Sz4 11 - Sn/A - [id number] Implanted:Qty: 1 on 05/11/2023 by Forrest Davidson, DO at OR [facility] Right: Knee FRANNIE : ORTHOPAEDICS 10/16/2027 [...] Advance Directives occurred with: Patient Care Teams Kitchen Food Assembler Relationship Specialty Start Date End Date Collette Mello III, MD 200 [facility] [place] [address] PCP - General Family Medicine 09/10/18 documented as of this encounter
--- OUTSIDE RECORDS SUMMARY | 2023-07-14 14:38 | External Medical Summary | Summary of Care ---
Author Name Unknown Organization [facility] Address [address] [facility] [place] [address] Phone [phone] Care Team Providers Care Theater Company Producer Name Role Phone Hilario ANDRADE MD, Shiva Kebede Primary Care Provider [phone] Reason for Visit * Reason Comments Dosage Adjustment Via Phone (anticoag Cl inic) Encounter Details Date Type Department Care Team (Latest Contact Info) Description 06/01/2023 6:15 PM [facility] Anticoagulation Pharmacy Call Center [phone] Public [place] [address] [facility] 58 60 Public [facility] [place] [address] Anticoagulation management encounter*; Paroxysmal atrial fibrillation (HCC) Allergies Active Allergy [...] (5mg) ALL OTHER EVENINGS OR DIRECTED BY [facility]. 105 Tablet 3 07/18/2022 Active [...] right 05/11/2023 Alcohol abuse 05/11/2023 Atherosclerosis of [place] co ronary artery without angina pectoris 09/10/2022 [...] Resolved Date Atherosclerotic heart diseas e of [place] coronary artery with other forms of angina [...] mRNA, LNP-s, No Pre serve, 2-Dose Series ([employer]) 05/16/2021,09/23/2020,08/26/2020 Covid-19, Mrna, Lnp-s, Pf, B ivalent, [...] this encounter Progress Notes * Nohelia Cortes RPh - 06/01/2023 10:13 AM EST Spoke with patient today. Pt no longer has HH. Denies any concerns at this time. Confirmed current regimen. Pt will repeat PT/INR on 06/04 at lab. Nohelia Cortes Rph, Pharm.D. Clinical Pharmacist [facility] ([facility]) (formerly Telepharmacy) [phone] 06/01/2023,10:16 AM * Litzy Doran, greenhouse laborer - 06/01/2023 9:38 AM EST [facility] this morning and talked to Dyana. She spoke with a nurse who advised patient was discharged from their service on 05/19. No new INR drawn on Thursday, and no future visits scheduled. Please advise. Thank you, Litzy Doran Ice Cream Vendor [facility] ([facility]) 06/01/2023,9:38 AM documented in this encounter Plan of Treatment Upcoming Encounters Date Type Department Care Team (Late st Contact Info) Description 06/04/2023 1:30 PM EST Hem/Onc Treatment Hematology/Oncology Treatment, [place] [facility] [address] Martha, Chair 7 Hem On[address] [place] [address] 07/02/2023 11:00 AM EST Office Visit Orthopaedics [facility] [address] Balta Hyde PA-C [address] [place] [address] [place] [address] 09/30/2023 9:20 AM EDT Office Visit Family Practice [facility] [place] 200 [facility] [place] [address] Shiva Rich III, MD [address] [place] [address] [facility] [place] [address] 10/01/2023 3:15 PM EDT Office Visit Hematology/Oncology [facility] [address] [place] [address] Efraín Leone MD [address] [place] [address] [place] [address] 11/12/2023 11:20 AM EDT Office Visit Dermatology [facility] 200 [place] [address] Margarita Figueredo PA-C 200 [facility] [place] [phone] 02/25/2024 9:30 AM EDT Imaging Radiology [address] 132 [facility] [place] [address] 04/21/2024 10:30 AM EDT Office Visit Sleep Disorders Ctr [facility] 132 [facility] [place] [phone] Viktoriya White CRNP 132 [facility] [place] [address] Scheduled Procedures Name Priority Associated Diagnoses Date/Ti [...] this encounter Medical Devices Implanted Type Area Marine Engine Mechanic Device Identifier Shelf Expiration Date Model / Serial / Lot Knee X3 Ins Pos Cs Sz4 11 - Sn/A - [id number] Implanted:Qty: 1 on 05/11/2023 by Forrest Davidson, DO at OR [facility] Right: Knee FRANNIE : ORTHOPAEDICS 10/16/2027 [id number] / N/A / [id number] documented as of this encounter Visit Diagnoses Diagnosis Anticoagulation management encounter- Primary Encounter for therapeutic drug monitoring Paroxysmal atrial fibrillation (HCC) Atrial fibrillation documented in this encounter Advance Directives Latest Code Status on File Code Status Date Activated Date Inactivated Comments Full Code 05/11/2023 4:30 PM 05/12/2023 8:11 PM Thi s order reflects the patients wishes and were consensually agreed upon. Question Answer Comments Discussion of Advance Directives occurred with: Patient Care Teams Theater Company Producer Relationship Specialty Start Date End Date Shiva Rich III, MD 200 [facility] [place] [address] PCP - General Family Medicine 09/10/18 documented as of this encounter
--- OUTSIDE RECORDS SUMMARY | 2023-07-14 14:38 | External Medical Summary ---
Author Name Unknown Address Unknown Organization K09:[facility] [address] Laboratory Report Ordering Provider Test Date Status INDER KINCAID 06/04/2023 14:28:12 Final Standing order for pt/inr. < br/>Please draw pt/inr every 1 to 4 weeks as requested
Results to [facility]

Warfarin Therapy
INR: 2.0-3.0 conventional anticoagulation
INR: 2.5-3.5 high intensity anticoagulation Observation Date Value Abnormality Reference (Units ) Status PT 06/04/2023 14:28:12 36.0 Above high normal 11 .6-15.2 (seconds) Final INR 06/04/2023 14:28:12 3.6 Above high normal 0. 8-1.2 Final Performing Location [facility] [place] [address] [place] [address]
--- OUTSIDE RECORDS SUMMARY | 2023-07-14 14:38 | External Medical Summary | Summary of Care ---
Author Name Unknown Organization [facility] Address [address] [facility] [place] [address] Phone [phone] Care Team Providers Care Ship Washer Name Role Phone Hilario ANDRADE MD, Shiva Kebede Primary Care Provider [phone] Encounter Details Date Type Department Care Team [...] (5mg) ALL OTHER EVENINGS OR DIRECTED BY [facility]. 105 Tablet 3 07/18/2022 Active [...] right 05/11/2023 Alcohol abuse 05/11/2023 Atherosclerosis of [place] co ronary artery without angina pectoris 09/10/2022 [...] Resolved Date Atherosclerotic heart diseas e of [place] coronary artery with other forms of angina [...] mRNA, LNP-s, No Pre serve, 2-Dose Series ([employer]) 05/16/2021,09/23/2020,08/26/2020 Covid-19, Mrna, Lnp-s, Pf, B ivalent, 30 Mcg, IM, 12 yrs and above ([employer]) 05/09/2022 Pneumococcal Conjugate Vacc, 13 Valent (Prevnar) [...] Description 06/04/2023 1:00 PM EST Laboratory Laboratory, [facility] 132 [facility] [place] [phone] [facility] 132 [facility] [place] [address] 06/04/2023 1:30 PM EST Hem/Onc Treatment Hematology/Oncology Treatment, [place] [address] [place] [address] Martha, Chair 7 Hem Onc [place] [address] [place] [address] 06/05/2023 6:15 AM EST Anticoagulation Pharmacy Call Center WB 58-60 Public [place] [address] [facility], [facility] 58 60 [facility] [place] [address] 07/02/2023 11:00 AM EST Office Visit Orthopaedics [facility] 132 [facility] [place] [address] Balta Hyde PA-C [address] [place] [address] [place] [address] 09/30/2023 9:20 AM EDT Office Visit Family Practice [facility] [address] [place] [address] Shiva Rich III, MD [address] [facility] [place] [address] 10/01/2023 3:15 PM EDT Office Visit Hematology/Oncology [facility] [place] [address] [place] [address] Efraín Leone MD 200 [facility] [place] [address] 11/12/2023 11:20 AM EDT Office Visit Dermatology [facility] [address] [place] [address] Margarita Figueredo PA-C 200 [facility] [place] [phone] 02/25/2024 9:30 AM EDT Imaging Radiology [facility]st [facility] 132 [facility] [place] [address] 04/21/2024 10:30 AM EDT Office Visit Sleep Disorders Ctr [facility] 132 [facility] [place] [phone] Viktoriya White CRNP 132 [place] [address] Scheduled Procedures Name Priority Associated Diagnoses Date/Ti [...] this encounter Medical Devices Implanted Type Area Associate Scientist Device Identifier Shelf Expiration Date Model / Serial / Lot Knee X3 Ins Pos Cs Sz4 11 - Sn/A - [id number] Implanted:Qty: 1 on 05/11/2023 by Forrest Davidson, DO at OR [facility] Right: Knee FRANNIE : ORTHOPAEDICS 10/16/2027 [...] Advance Directives occurred with: Patient Care Teams Ship Washer Relationship Specialty Start Date End Date Shiva Rich III, MD 200 [facility] [place] [address] PCP - General Family Medicine 09/10/18 documented as of this encounter
--- OUTSIDE RECORDS SUMMARY | 2023-07-14 14:38 | External Medical Summary ---
Author Name Unknown Address Unknown Organization K09:[place] [address] Laboratory Report Ordering Provider Test Date Status JOSHUA MARR 06/04/2023 14:28:12 Final Observation Date Value Abnormality Reference (Units ) Status WBC, Total 06/04/2023 14:28:12 7.44 4.00-10.8 0 (K/uL) Final RBC 06/04/2023 14:28:12 2.84 3.85-5.15 (M/uL) Final Hemoglobin 06/04/2023 14:28:12 8.4 Below low normal 12 .0-15.3 (g/dL) Final HCT 06/04/2023 14:28:12 27.5 Below low normal 36. 0-45.2 (%) Final MCV 06/04/2023 14:28:12 96.8 81.5-97.5 (fL) Final MCH 06/04/2023 14:28:12 29.6 27.0-34.0 (pg) Final MCHC 06/04/2023 14:28:12 30.5 32.0-36.0 (g/dL) Final RDW 06/04/2023 14:28:12 14.6 11.5-15.5 (%) Final Platelets 06/04/2023 14:28:12 362 140-400 (K /uL) Final MPV 06/04/2023 14:28:12 8.8 6.6-11.1 ( fL) Final Performing Location [place] [address]
--- OUTSIDE RECORDS SUMMARY | 2023-07-14 14:38 | External Medical Summary | Summary of Care ---
Author Name Unknown Organization [facility] Address [address] [facility] [place] [address] Phone [phone] Care Team Providers Care Tin Assorter Name Role Phone Hilario ANDRADE MD, Shiva Kebede Primary Care Provider [phone] Reason for Visit * Reason Onset Date Comments Advice 05/28/2023 Encounter Details Date Type Department Care Team (Late st Contact Info) Description 05/28/2023 Telephone Orthopaedics [facility] 132 [facility] [place] [address] Services, Scheduling [address] [place] [address] Advice Allergies Active Allergy Reactions Criticality Noted Date Comments Bee Venom Edema Other 01/10/2016 Lisinopril Cough 09/04/2016 documented as of this encounter (statuses as of 05/28/2023) Medications Medication Sig Dispensed Refills Start Date [...] the morning. 34 Tablet 11 04/30/2023 Active Metoprolol Succinate ER 25 MG Oral Tablet Extended Release 24 Hour (toPROL XL)Indications:Paroxys mal atrial fibrillation (HCC) Take 1 Tablet by mouth in the morning. 90 Tablet 3 05/09/2023 Active CPAP every night at bedtime. 0 [...] as of this encounter (statuses as of 05/28/2023) Active Problems Problem Noted Date Diagnosed Date Other iron deficiency anemias 05/22/2023 Postoperative anemia due to acute blood loss S/P total knee arthroplasty, right 05/11/2023 Alcohol abuse 05/11/2023 Atherosclerosis of [place] co ronary artery without angina pectoris 09/10/2022 [...] as of this encounter (statuses as of 05/28/2023) Resolved Problems Problem Noted Date Diagnosed Date Resolved Date Atherosclerotic heart diseas e of [place] coronary artery with other forms of angina [...] as of this encounter (statuses as of 05/28/2023) Immunizations Name Administration Dates Next Due COVID-19 mRNA, LNP-s, No Pre serve, 2-Dose Series ([employer]) 05/16/2021,09/23/2020,08/26/2020 Covid-19, Mrna, Lnp-s, Pf, B ivalent, [...] encounter Miscellaneous Notes * Telephone Encounter - Dyana Rodríguez MED ASSIST - 05/28/2023 3:15 PM EST Called and spoke with patient, made her aware of the recommendations, patient is agreeable and willcall us when she needs the abx prior to dental visit. * Telephone Encounter - Myrna Araujo TECH - 05/28/2023 12:28 PM EST Attempted to call Asiya back but this seems to be call back number for the dental office, not the nursing facility Pt should wait 3 months s/p joint replacement and there will need to be abx prior to appointment TOM Patel * Telephone Encounter - Pratibha Seth OSA - 05/28/2023 11:59 AM EST Nursing facility calling to see if pt should wait to have dental work done and if not, is there anymedication she should be taking before having dental work. Best call back number is Asiya at [phone]. Thank you, Pratibha Andrew documented in this encounter Plan of Treatment Upcoming Encounters Date Type Department Care Team (Late st Contact Info) Description 05/29/2023 6:15 PM EST Anticoagulation Pharmacy Call Center 58-60 [facility] [place] [address] [facility], [facility] 58 60 [facility] [place] [address] 06/04/2023 1:30 PM EST Hem/Onc Treatment Hematology/Oncology Treatment, [place] [address] [facility] [address] [place] [address] Martha, Chair 7 Hem Onc [address] [facility] [place] [address] 07/02/2023 11:00 AM EST Office Visit Orthopaedics [facility] 132 [facility] [place] [address] Balta Hyde PA-C [address] [place] [address] [place] [address] 09/30/2023 9:20 AM EDT Office Visit Family Practice [facility] 200 [facility] [place] [address] HilarioShiva canseco III, MD [address] [facility] [place] [address] 10/01/2023 3:15 PM EDT Office Visit Hematology/Oncology [facility] [address] [place] [address] Efraín Leone MD 200 [facility] [place] [address] 11/12/2023 11:20 AM EDT Office Visit Dermatology [facility] [address] [place] [address] Margarita Figueredo PA-C 200 [facility] [place] [phone] 02/25/2024 9:30 AM EDT Imaging Radiology [address] 132 [facility] [place] [address] 04/21/2024 10:30 AM EDT Office Visit Sleep Disorders Ctr [facility] 132 [facility] [place] [phone] Viktoriya White CRNP 132 [facility] [place] [address] Scheduled Procedures Name Priority Associated Diagnoses Date/Ti [...] 02/16/2018, Additional history exists B-12 04/16/2024 04/16/2023, 0807/2022, 10/06/2022, Additional history exists GFR 05/12/2024 05/12/2023, [...] this encounter Medical Devices Implanted Type Area Training Officer Device Identifier Shelf Expiration Date Model / Serial / Lot Knee X3 Ins Pos Cs Sz4 11 - Sn/A - [id number] Implanted:Qty: 1 on 05/11/2023 by Forrest Davidson, DO at OR [facility] Right: Knee FRANNIE : ORTHOPAEDICS 10/16/2027 [...] Advance Directives occurred with: Patient Care Teams Tin Assorter Relationship Specialty Start Date End Date Shiva Rich III, MD 200 [place] [address] PCP - General Family Medicine 09/10/18 documented as of this encounter
--- OUTSIDE RECORDS SUMMARY | 2023-07-14 14:38 | External Medical Summary | Summary of Care ---
Author Name Unknown Organization [facility] Address [address] [facility] [place] [address] Phone [phone] Care Team Providers Care Rough Rice Tender Name Role Phone Hilario ANDRADE MD, Shiva Kebede Primary Care Provider [phone] Encounter Details Date Type Department Care Team [...] (5mg) ALL OTHER EVENINGS OR DIRECTED BY [facility]. 105 Tablet 3 07/18/2022 Active [...] right 05/11/2023 Alcohol abuse 05/11/2023 Atherosclerosis of [place] co ronary artery without angina pectoris 09/10/2022 [...] Resolved Date Atherosclerotic heart diseas e of [place] coronary artery with other forms of angina [...] mRNA, LNP-s, No Pre serve, 2-Dose Series ([employer]) 05/16/2021,09/23/2020,08/26/2020 Covid-19, Mrna, Lnp-s, Pf, B ivalent, 30 Mcg, IM, 12 yrs and above ([employer]) 05/09/2022 Pneumococcal Conjugate Vacc, 13 Valent (Prevnar) [...] Description 06/04/2023 1:00 PM EST Laboratory Laboratory, [facility] 132 [facility] [place] [phone] [facility] 132 [facility] [place] [address] 06/04/2023 1:30 PM EST Hem/Onc Treatment Hematology/Oncology Treatment, [place] [address] [place] [address] Martha, Chair 7 Hem Onc [place] [address] [place] [address] 06/05/2023 6:15 AM EST Anticoagulation Pharmacy Call Center WB [address] Public [place] [address] [facility], [facility] 58 60 [facility] [place] [address] 07/02/2023 11:00 AM EST Office Visit Orthopaedics [facility] 132 [facility] [place] [address] Balta Hyde PA-C [address] [place] [address] [place] [address] 09/30/2023 9:20 AM EDT Office Visit Family Practice [facility] [address] [place] [address] Shiva Rich III, MD [address] [facility] [place] [address] 10/01/2023 3:15 PM EDT Office Visit Hematology/Oncology [facility] [place] [address] [place] [address] Efraín Leone MD [address] [facility] [place] [address] 11/12/2023 11:20 AM EDT Office Visit Dermatology [facility] [address] [place] [address] Margarita Figueredo PA-C [address] [facility] [address] [facility] [place] [phone] 02/25/2024 9:30 AM EDT Imaging Radiology [facility] 1st [facility] [address] [facility] [place] [address] 04/21/2024 10:30 AM EDT Office Visit Sleep Disorders Ctr [facility] [place] [phone] Viktoriya White CRNP 132 [place] [address] Scheduled Procedures Name Priority Associated Diagnoses Date/Ti [...] this encounter Medical Devices Implanted Type Area Dermatology Nurse Practitioner Device Identifier Shelf Expiration Date Model / Serial / Lot Knee X3 Ins Pos Cs Sz4 11 - Sn/A - [id number] Implanted:Qty: 1 on 05/11/2023 by Forrest Davidson, DO at OR [facility] Right: Knee FRANNIE : ORTHOPAEDICS 10/16/2027 [...] Advance Directives occurred with: Patient Care Teams Rough Rice Tender Relationship Specialty Start Date End Date Shiva Rich III, MD [address] [place] [address] PCP - General Family Medicine 09/10/18 documented as of this encounter
--- OUTSIDE RECORDS SUMMARY | 2023-07-14 14:38 | External Medical Summary | Summary of Care ---
Author Name Unknown Organization [facility] Address [address] [facility] [place] [address] Phone [phone] Care Team Providers Care Patch Sander Name Role Phone Hilario ANDRADE MD, Shiva Kebede Primary Care Provider [phone] Reason for Visit * Reason Comments Dosage Adjustment Via Phone (anticoag Cl inic) Encounter Details Date Type Department Care Team (Latest Contact Info) Description 05/29/2023 6:15 PM EST Anticoagulation Pharmacy Call Center 58-60 Public [place] [address] [facility], [facility] 58 60 Public [facility] [place] [address] Paroxysmal atrial fibrillation (HCC)* Allergies Active Allergy Reactions Criticality Noted Date Comments Bee Venom Edema Other 01/10/2016 Lisinopril Cough 09/04/2016 documented as of this encounter (statuses as of 05/29/2023) Medications Medication Sig Dispensed Refills Start Date [...] (5mg) ALL OTHER EVENINGS OR DIRECTED BY [facility]. 105 Tablet 3 07/18/2022 [...] as of this encounter (statuses as of 05/29/2023) Active Problems Problem Noted Date Diagnosed Date Other iron deficiency anemias 05/22/2023 Postoperative anemia due to acute blood loss S/P total knee arthroplasty, right 05/11/2023 Alcohol abuse 05/11/2023 Atherosclerosis of [place] co ronary artery without angina pectoris 09/10/2022 [...] as of this encounter (statuses as of 05/29/2023) Resolved Problems Problem Noted Date Diagnosed Date Resolved Date Atherosclerotic heart diseas e of [place] coronary artery with other forms of angina [...] as of this encounter (statuses as of 05/29/2023) Immunizations Name Administration Dates Next Due COVID-19 mRNA, LNP-s, No Pre serve, 2-Dose Series ([employer]) 05/16/2021,09/23/2020,08/26/2020 Covid-19, Mrna, Lnp-s, Pf, B ivalent, [...] as of this encounter Progress Notes * Heydi Frias, [facility] - 05/29/2023 3:46 PM EST Medication Therapy Disease Management - Anticoagulation Patient: Nenita Fleming | : 1955 Subjective Patient-Reported Symptoms: LMOVM -- unable to confirm if INR drawn today -- advised pt to continue usual weekly warfarin dose at this time. ACC to follow-up on Bird to see if INR drawn as requested. Objective Current Warfarin Dose As of 05/29/2023 Warfarin maintenance plan: 7.5 mg (5 mg x 1.5) every Fri; 5 mg (5 mg x 1) all other days INR Result As of 05/29/2023 INR goal: 2.0-3.0 INR used for dosing: No new INR was available at the time of this encounter. Assessment & Plan Warfarin Plan As of 05/29/2023 Full warfarin instructions: 7.5 mg every Fri; 5 mg all other days No change documented: Heydi Frias [facility] Next INR check: 05/29/2023 Repeat PT/INR -- TBD; requested for today 05/29/23 -- unable to confirm if INR was drawn at this time. Weekly dose: not changed Additional Dosing Information: Description Temp: [facility] TKA 05/12- weekly checks x 4 weeks Stover'kwasi Gambino- pt prefers Thurs AMIODARONE started 04/28/22 Heydi Frias [facility] Clinical Pharmacist 05/29/2023, 3:46 PM * Litzy Doran mechanical inspector - 05/29/2023 3:40 PM EST Left a second message with Dyana at [facility], still no INR result from nurse at time of call. Please advise. Thank you, Litzy Doran Wig Sales Consultant [facility] 05/29/2023,3:41 PM * Litzy Doran mechanical inspector - 05/29/2023 2:13 PM EST Spoke with Dyana at [facility] ([phone]). She was not sure if patient was seen today, no notes or INR result available from nurse at time of call. She was going to reach out to nurse and ask her to call back with INR result, or an update if INR was not done today. Thank you, Litzy Doran Wig Sales Consultant [facility] 05/29/2023,2:14 PM documented in this encounter Plan of Treatment Upcoming Encounters Date Type Department Care Team (Late st Contact Info) Description 06/01/2023 6:15 PM EST Anticoagulation Pharmacy Call Center WB [address]60 Public [place] [address] [facility], [facility] 58 60 [facility] [place] [address] 06/04/2023 1:30 PM EST Hem/Onc Treatment Hematology/Oncology Treatment, [place] [address] [facility] [address] [facility] [address] [place] [address] Martha, Chair 7 Hem Onc [address] [place] [address] 07/02/2023 11:00 AM EST Office Visit Orthopaedics [facility] [place] [address] [facility] [place] [address] Balta Hyde PA-C [address] [place] [place] [address] 09/30/2023 9:20 AM EDT Office Visit Family Practice [facility] [place] [address] [facility] [place] [address] Shiva Rich III, MD [address] [facility] [place] [address] 10/01/2023 3:15 PM EDT Office Visit Hematology/Oncology [facility] Martha [place] [address] [facility] [place] [address] Efraín Leone MD [address] [facility] [place] [address] 11/12/2023 11:20 AM EDT Office Visit Dermatology [facility] [place] [address] [facility] [place] [address] Margarita Figueredo PA-C [address] [facility] [place] [phone] 02/25/2024 9:30 AM EDT Imaging Radiology [address] [place] [address] 04/21/2024 10:30 AM EDT Office Visit Sleep Disorders Ctr [facility] [address] [facility] [place] [phone] Viktoriya White CRNP [address] [place] [address] Scheduled Procedures Name Priority Associated Diagnoses Date/Ti [...] this encounter Medical Devices Implanted Type Area Single Fold Machine Operator Device Identifier Shelf Expiration Date Model / Serial / Lot Knee X3 Ins Pos Cs Sz4 11 - Sn/A - [id number] Implanted:Qty: 1 on 05/11/2023 by Forrest Davidson, DO at OR [facility] Right: Knee FRANNIE : ORTHOPAEDICS [...] Advance Directives occurred with: Patient Care Teams Patch Sander Relationship Specialty Start Date End Date Shiva Rich III, MD [address] [place] [address] PCP - General Family Medicine 09/10/18 documented as of this encounter"
--- OUTSIDE RECORDS SUMMARY | 2023-07-14 14:39 | External Medical Summary | Summary of Care ---
Author Name Unknown Organization [facility] Address [address] [facility] [place] [address] Phone [phone] Care Team Providers Care Sewing Supervisor Name Role Phone Hilario ANDRADE MD, Shiva Kebede Primary Care Provider [phone] Reason for Visit * Reason Comments Follow Up Right knee wound wilmar ck Encounter Details Date Type Department Care Team (Late st Contact Info) Description 05/28/2023 11:00 AM EST Office Visit Orthopaedics [facility] [address] [place] [address] Forrest Davidson, [address] [place] [address] Status post total right knee replacement* Allergies [...] (5mg) ALL OTHER EVENINGS OR DIRECTED BY [employer]. 105 Tablet 3 07/18/2022 Active Multi Vitamin [...] right 05/11/2023 Alcohol abuse 05/11/2023 Atherosclerosis of [place] co ronary artery without angina pectoris 09/10/2022 [...] Resolved Date Atherosclerotic heart diseas e of [place] coronary artery with other forms of angina [...] mRNA, LNP-s, No Pre serve, 2-Dose Series ([employer]) 05/16/2021,09/23/2020,08/26/2020 Covid-19, Mrna, Lnp-s, Pf, B ivalent, [...] This chart was completed in part utilizing [employer] Speech Voice Recognition Software. Grammatical errors, random [...] PM EST Anticoagulation Pharmacy Call Center 58[address] [facility] [place] [address] C[facility]ps, [facility] 58 60 [facility] [place] [address] 06/04/2023 1:30 PM EST Hem/Onc Treatment Hematology/Oncology Treatment, [place] [address] [facility] [address] [place] [address] Martha, Chair 7 Hem Onc [address] [place] [address] 07/02/2023 11:00 AM EST Office Visit Orthopaedics [facility] 132 [facility] [place] [address] Balta Hyde PA-C [address] [place] [address] [place] [address] 09/30/2023 9:20 AM EDT Office Visit Family Practice [facility] [place] [address] [facility] [place] [address] HilarioShiva canseco III, MD [address] [facility] [place] [address] 10/01/2023 3:15 PM EDT Office Visit Hematology/Oncology [facility] [place] [address] [facility] [place] [address] Efraín Leone MD [address] [place] [address] 11/12/2023 11:20 AM EDT Office Visit Dermatology [facility] [address] [place] [address] Margarita Figueredo PA-C [address] [place] [phone] 02/25/2024 9:30 AM EDT Imaging Radiology [address] [place] [address] 04/21/2024 10:30 AM EDT Office Visit Sleep Disorders Ctr [facility] [address] [place] [phone] Viktoriya White CRNP [address] [place] [address] Scheduled Procedures Name Priority Associated Diagnoses Date/Ti [...] this encounter Medical Devices Implanted Type Area Certified Master Safe Technician Device Identifier Shelf Expiration Date Model / Serial / Lot Knee X3 Ins Pos Cs Sz4 11 - Sn/A - [id number] Implanted:Qty: 1 on 05/11/2023 by Forrest Davidson, at OR [facility] Right: Knee FRANNIE : ORTHOPAEDICS 10/16/2027 [...] Advance Directives occurred with: Patient Care Teams Sewing Supervisor Relationship Specialty Start Date End Date Hilario ANDRADE, Shiva Kebede MD 200 [place] [address] PCP - General Family Medicine 09/10/18 documented as of this encounter
--- OUTSIDE RECORDS SUMMARY | 2023-07-14 14:39 | External Medical Summary ---
Author Name Unknown Address Unknown Organization K[facility] [address] [place] [address] Laboratory Report Ordering Provider Test Date Status INDER KINCAID 05/25/2023 11:11:40 Final Standing order for pt/inr. < br/>Please draw pt/inr every 1 to 4 weeks as requested
Results to [facility]

Warfarin Therapy
INR: 2.0-3.0 conventional anticoagulation
INR: 2.5-3.5 high intensity anticoagulation Observation Date Value Abnormality Reference (Units ) Status PT 05/25/2023 11:11:40 19.8 Above high normal 11 .6-15.2 (seconds) Final INR 05/25/2023 11:11:40 1.7 Above high normal 0. 8-1.2 Final Performing Location [facility] [address] [place] [address]
--- OUTSIDE RECORDS SUMMARY | 2023-07-14 14:39 | External Medical Summary | Summary of Care ---
Author Name Unknown Organization [facility] Address [address] [facility] [place] [address] Phone [phone] Care Team Providers Care Story Teller Name Role Phone Hilario ANDRADE MD, Shiva Kebede Primary Care Provider [phone] Reason for Visit * Reason Comments IV Therapy Venofer Encounter Details Date Type Department Care Team (Latest Contact Info) Description 05/27/2023 2:00 PM EST Hem/Onc Treatment Hematology/Oncology Treatment, [place] [address] [place] [address] Martha, Chair 10 Hem Onc [address] [place] [address] Other iron deficiency anemias* Allergies Active Allergy Reactions Criticality Noted Date Comments Bee Venom Edema Other 01/10/2016 Lisinopril Cough 09/04/2016 documented as of this encounter (statuses as of 05/27/2023) Medications Medication Sig Dispensed Refills Start Date [...] (5mg) ALL OTHER EVENINGS OR DIRECTED BY [facility]. 105 Tablet 3 07/18/2022 [...] as of this encounter (statuses as of 05/27/2023) Active Problems Problem Noted Date Diagnosed Date Other iron deficiency anemias 05/22/2023 Postoperative anemia due to acute blood loss S/P total knee arthroplasty, right 05/11/2023 Alcohol abuse 05/11/2023 Atherosclerosis of [place] co ronary artery without angina pectoris 09/10/2022 Body mass index (BMI) of 40.0 to 44.9 in adult 1 08/02/2021 Overview: Per Obesity protocol - Heart failure 05/06/2022 Thickened endometrium 09/06/2021 Endometrial polyp 09/06/2021 PMB (postmenopausal bleeding) 08/19/2021 SALAVDOR on CPAP 04/19/2020 Dyslipidemia, goal LDL below [...] as of this encounter (statuses as of 05/27/2023) Resolved Problems Problem Noted Date Diagnosed Date Resolved Date Atherosclerotic heart diseas e of [place] coronary artery with other forms of angina [...] as of this encounter (statuses as of 05/27/2023) Immunizations Name Administration Dates Next Due COVID-19 mRNA, LNP-s, No Pre serve, 2-Dose Series ([employer]) 05/16/2021,09/23/2020,08/26/2020 Covid-19, Mrna, Lnp-s, Pf, B ivalent, 30 Mcg, IM, 12 yrs and above ([employer]) 05/09/2022 Pneumococcal Conjugate Vacc, 13 Valent (Prevnar) [...] Sign Reading Time Taken Comments Blood Pressure 158/67 05/27/2023 2:37 PM EST Pulse 52 05/27/2023 2:37 PM EST Temperature 36.6 C (97.8 F) 05/27/2023 2:37 PM ES T Respiratory Rate 18 05/27/2023 2:37 PM EST Oxygen Saturation 93% 05/27/2023 2:37 PM EST Inhaled Oxygen Concentration - - Weight - [...] as of this encounter Nursing Notes * Tabatha Yee RN - 05/27/2023 5:11 PM EST Pt completed treatment without issues. IV removed. Goals: Pt will remain free from injury. Possible barriers to meeting goals: ambulation with IV pole, pt is currently a high fall risk Stability of the patient: Moderately stable - low risk of patient condition declining or worsening Summary regarding today's goals: Met: Pt remained free from injury during treatment today. Discharged in stable condition. No coverag.e * Tabatha Yee RN - 05/27/2023 3:34 PM EST Chair 9, Vitor. Pt has no acute concerns to report today. Medication and infusion process reviewed with pt; pt verbalized understanding. PIV established; Venofer infusing. Safety and Risk for Injury Patient will remain free from injury. Ensure appropriate safety devices are available. Provide and maintain safe environment. documented in this encounter Plan of Treatment Upcoming Encounters Date Type Department Care Team (Late st Contact Info) Description 05/28/2023 11:00 AM EST Office Visit Orthopaedics [facility] 132 [facility] [place] [address] Forrest Davidson, 132 [facility] [place] [address] 05/29/2023 6:15 PM EST Anticoagulation Pharmacy Call Center WB [address] Public [place] [address] [facility] 58 60 [facility] [place] [address] 06/04/2023 1:30 PM EST Hem/Onc Treatment Hematology/Oncology Treatment, [place] [address] [place] [address] Martha, Chair 7 Hem Onc [address] [place] [address] 09/30/2023 9:20 AM EDT Office Visit Family Practice [facility] [address] [place] [address] Shiva Rich III, MD [address] [facility] [place] [address] 10/01/2023 3:15 PM EDT Office Visit Hematology/Oncology [facility] [address] [place] [address] Efraín Leone MD 200 [facility] [place] [address] 11/12/2023 11:20 AM EDT Office Visit Dermatology [facility] [address] [place] [address] Margarita Figueredo PA-C 200 [facility] [place] [phone] 02/25/2024 9:30 AM EDT Imaging Radiology [address] 132 [facility] [place] [address] 04/21/2024 10:30 AM EDT Office Visit Sleep Disorders Ctr [facility] 132 [facility] [place] [phone] Viktoriya White CRNP 132 [facility] [place] [address] Scheduled Procedures Name Priority Associated Diagnoses Date/Ti [...] this encounter Medical Devices Implanted Type Area Fisher Eel Spear Device Identifier Shelf Expiration Date Model / Serial / Lot Knee X3 Ins Pos Cs Sz4 11 - Sn/A - [id number] Implanted:Qty: 1 on 05/11/2023 by Forrest Davidson DO at OR [facility] Right: Knee FRANNIE : ORTHOPAEDICS 10/16/2027 [id number] / N/A / [id number] documented as of this encounter Visit Diagnoses Diagnosis Other iron deficiency anemias- Primary documented in this encounter Administered Medications Active Administered Medications - up to 3 most recent administrations Medication Order MAR Action Action Date Dose Rate Site diphenhydrAMINE (Benadryl) inj 50 mg 50 mg, IV Push, ONCE PRN Other, Hypersensitivity Reaction, Starting on Thu05/27/23 at 1434, Until Ellie 05/28/23 at 1433, For 24 hours EPINEPHrine 1 MG/ML inj 0.3 mg 0.3 mg, Intramuscular, ONCE PRN Other, Hypersensitivity Reaction or Anaphylaxis, Starting on Thu05/27/23 at 1434, Until Ellie 05/28/23 at 1433, For 24 hours hEParin 100 UNIT/ML Lock Flush inj 500 Units 500 Units (5 mL), IV Lock, PRN Other, IV Flush, Starting on Thu05/27/23 at 1434, Until Ellie 05/28/23 at 1433, For 24 hours, Do not flush if lock, PICC, or central line not in place; IV infusing or unable to flush. Hydrocortisone Sod Suc (PF) (Solu-Cortef) inj 100 mg 100 mg, IV Push, ONCE PRN Other, Hypersensitivity Reaction, Starting on Thu05/27/23 at 1434, Until Ellie 05/28/23 at 1433, For 24 hours NSS infusion 500 mL, Intravenous, at 50 mL/hr, CONTINUOUS, Starting on Thu05/27/23 at 1545, Until Ellie 05/28/23 at 0144 Start Infusion 05/27/2023 2:34 PM EST 500 mL 50 mL/hr oxygen GAS Inhalation, OXYGEN, First dose on Thu05/27/23 at 1600, Until Discontinued, Device/Managed by: Low [...] Push, PRN Other, IV Flush, Starting on Thu05/27/23 at 1434, Until Ellie 05/28/23 at 1433, For 24 hours, Do not flush if lock, PICC, or central line not in place; IV infusing or unable to flush. Inactive Administered Medications - up to 3 most recent administrations Medication Order MAR Action Action Date Dose Rate Site Iron Sucrose (Venofer) 300 mg in NSS 250 mL ivpb 300 mg, IV Piggyback, ONCE, 1 dose, On Thu05/27/23 at 1615, Administer over 90 Minutes Start Infusion 05/27/2023 2:34 PM EST 300 mg 166.67 mL/hr documented in this encounter Advance Directives Latest Code Status on File Code Status Date Activated Date Inactivated Comments Full Code 05/11/2023 4:30 PM 05/12/2023 8:11 PM Thi s order reflects the patients wishes and were consensually agreed upon. Question Answer Comments Discussion of Advance Directives occurred with: Patient Care Teams Story Teller Relationship Specialty Start Date End Date Shiva Rich III, MD 200 [facility] [place] [address] PCP - General Family Medicine 09/10/18 documented as of this encounter
--- OUTSIDE RECORDS SUMMARY | 2023-07-14 14:39 | External Medical Summary | Summary of Care ---
Author Name Unknown Organization [facility] Address [address] [facility] [place] [address] Phone [phone] Care Team Providers Care Insurance Legal Assistant Name Role Phone Hilario ANDRADE MD, Shiva Kebede Primary Care Provider [phone] Reason for Visit * Reason Comments Dosage Adjustment Via Phone (anticoag Cl inic) Encounter Details Date Type Department Care Team (Latest Contact Info) Description 05/22/2023 6:45 AM EDT Anticoagulation Pharmacy Call Center [address] Public [place] [address] [facility] 58 60 Public [facility] [place] [address] Paroxysmal atrial fibrillation (HCC)* Allergies Active Allergy Reactions Criticality Noted Date Comments Bee Venom Edema Other 01/10/2016 Lisinopril Cough 09/04/2016 documented as of this encounter (statuses as of 05/22/2023) Medications Medication Sig Dispensed Refills Start Date [...] ALL OTHER EVENINGS OR DIRECTED BY [facility]. 105 Tablet 3 07/18/2022 Active Multi [...] as of this encounter (statuses as of 05/22/2023) Active Problems Problem Noted Date Diagnosed Date [...] as of this encounter (statuses as of 05/22/2023) Resolved Problems Problem Noted Date Diagnosed Date [...] as of this encounter (statuses as of 05/22/2023) Immunizations Name Administration Dates Next Due COVID-19 mRNA, LNP-s, No Pre serve, 2-Dose Series ([employer]) 05/16/2021,09/23/2020,08/26/2020 Covid-19, Mrna, Lnp-s, Pf, B ivalent, 30 Mcg, IM, 12 yrs and above ([employer]) 05/09/2022 Pneumococcal Conjugate Vacc, 13 Valent (Prevnar) [...] of this encounter Progress Notes * Nohelia Cortes, [facility] - 05/22/2023 2:16 PM EDT Medication Therapy Disease Management - Anticoagulation Patient: Nenita Fleming | : 1955 Subjective Contacts Type Contact Phone/Fax 05/22/2023 02:24 PM EDT Phone (Outgoing) Nenita Fleming (Self) [phone] (M) Spoke to Patient Patient-Reported Symptoms: Patient Findings Comments: Sent previous note to Dr Leone in Hem/Onc to advise if we should continue to hold for lowHgb or restart (hx of stroke). See Dr Leone's note for iron supplementation plan. Advised if need for anticoagulation nad no active bleeding to continue Warfarin. Objective Current Warfarin Dose As of 05/22/2023 Warfarin maintenance plan: 7.5 mg (5 mg x 1.5) every Fri; 5 mg (5 mg x 1) all other days INR Result As of 05/22/2023 INR goal: 2.0-3.0 INR used for dosing: No new INR was available at the time of this encounter. Assessment & Plan Warfarin Plan As of 05/22/2023 Full warfarin instructions: 7.5 mg every Fri; 5 mg all other days Next INR check: 05/25/2023 Repeat PT/INR in 3 day(s) Weekly dose: not changed Additional Dosing Information: Description Temp: Advantage TKA 05/12- weekly checks x 4 weeks Edson Gambino- pt prefers Thurs AMIODARONE started 04/28/22 Nohelia Cortes RPh Clinical Pharmacist 05/22/2023, 2:23 PM documented in this encounter Plan of Treatment Upcoming Encounters Date Type Department Care Team (Late st Contact Info) Description 05/25/2023 11:00 AM EST Laboratory Laboratory, Edson Gambino [place] [address] [place] [phone] Wilfredo Gambino [address] [place] [address] 05/27/2023 2:00 PM EST Hem/Onc Treatment Hematology/Oncology Treatment, [place] [address] [place] [address] Martha, Chair 10 Hem Onc [facility] [place] [address] 05/28/2023 11:00 AM EST Office Visit Orthopaedics [facility] [address] [place] [address] Forrest Davidson, 132 [place] [address] 09/30/2023 9:20 AM EDT Office Visit Family Practice [facility] [address] [place] [address] Shiva Rich III, MD 200 [facility] [place] [address] 10/01/2023 3:15 PM EDT Office Visit Hematology/Oncology [facility] [address] [place] [address] Efraín Leone MD 200 [facility] [place] [address] 11/12/2023 11:20 AM EDT Office Visit Dermatology [facility] [address] [place] [address] Margarita Figueredo PA-C 200 [facility] [place] [phone] 02/25/2024 9:30 AM EDT Imaging Radiology [address] 132 [place] [address] 04/21/2024 10:30 AM EDT Office Visit Sleep Disorders Ctr [facility] [address] [place] [phone] Viktoriya White CRNP [address] [place] [address] Scheduled Procedures Name Priority Associated Diagnoses Date/Ti [...] this encounter Medical Devices Implanted Type Area Lead Technologist In [employer] Device Identifier Shelf Expiration Date Model / Serial / Lot Knee X3 Ins Pos Cs Sz4 11 - Sn/A - [id number] Implanted:Qty: 1 on 05/11/2023 by Forrest Davidson, DO at OR [facility] Right: Knee FRANNIE : ORTHOPAEDICS 10/16/2027 [...] Advance Directives occurred with: Patient Care Teams Insurance Legal Assistant Relationship Specialty Start Date End Date Shiva Rich III, MD 200 [facility] [place] [address] PCP - General Family Medicine 09/10/18 documented as of this encounter"
--- OUTSIDE RECORDS SUMMARY | 2023-07-14 14:39 | External Medical Summary | Summary of Care ---
Author Name Unknown Organization [facility] Address [address] [facility] [place] [address] Phone [phone] Care Team Providers Care Foundation Assistant Name Role Phone Hilario ANDRADE MD, Shiva Kebede Primary Care Provider [phone] Reason for Visit * Reason Comments Dosage Adjustment Via Phone (anticoag Cl inic) Encounter Details Date Type Department Care Team (Latest Contact Info) Description 05/25/2023 6:00 PM EST Anticoagulation Pharmacy Call Center [phone] [place] [address] [facility], [facility] [address] [facility] [place] [address] Paroxysmal atrial fibrillation (HCC)* Allergies Active Allergy Reactions Criticality Noted Date Comments Bee Venom Edema Other 01/10/2016 Lisinopril Cough 09/04/2016 documented as of this encounter (statuses as of 05/25/2023) Medications Medication Sig Dispensed Refills Start Date [...] (5mg) ALL OTHER EVENINGS OR DIRECTED BY [facility]. 105 Tablet 3 07/18/2022 Active Multi [...] as of this encounter (statuses as of 05/25/2023) Active Problems Problem Noted Date Diagnosed Date Other iron deficiency anemias 05/22/2023 Postoperative anemia due to acute blood loss S/P total knee arthroplasty, right 05/11/2023 Alcohol abuse 05/11/2023 Atherosclerosis of [place] co ronary artery without angina pectoris 09/10/2022 [...] as of this encounter (statuses as of 05/25/2023) Resolved Problems Problem Noted Date Diagnosed Date Resolved Date Atherosclerotic heart diseas e of [place] coronary artery with other forms of angina [...] as of this encounter (statuses as of 05/25/2023) Immunizations Name Administration Dates Next Due COVID-19 mRNA, LNP-s, No Pre serve, 2-Dose Series ([employer]) 05/16/2021,09/23/2020,08/26/2020 Covid-19, Mrna, Lnp-s, Pf, B ivalent, [...] Progress Notes * Nohelia Montague CPhT - 05/25/2023 12:25 PM EST Contacts Type Contact Phone/Fax 05/25/2023 12:23 PM EST Phone (Outgoing) Nenita Fleming (Self) [phone] (M) Left Message Subjective Advised patient to contact Anticoagulation Clinic if any unusual bruising or bleeding, recent illness, changes in medication, or questions/concerns. PT/INR results, Coumadin dose instructions, and next PT/INR date communicated as noted by Pharmacist: Yes Nohelia Montague CPhT 05/25/2023, 12:25 PM * Nohelia Cortes RPh - 05/25/2023 12:10 PM EST Images from the original note were not included. Coumadin Clinic (region specific) Objective Current Warfarin Dose As of 05/25/2023 Warfarin maintenance plan: 7.5 mg (5 mg x 1.5) every Fri; 5 mg (5 mg x 1) all other days INR Result As of 05/25/2023 INR goal: 2.0-3.0 INR used for dosin.7 (05/25/2023) Assessment & Plan Warfarin Plan As of 05/25/2023 Full warfarin instructions: 05/25: 7.5 mg; Otherwise 7.5 mg every Fri; 5 mg all other days Next INR check: 05/29/2023 Restarted Warfarin on 05/22 after holding for low Hgb. Repeat PT/INR in 5 day(s) Weekly dose: not changed Additional Dosing Information: Description Temp: Advantage TKA 05/12- weekly checks x 4 weeks Edson Gambino- pt prefers Thurs AMIODARONE started 04/28/22 Tech to contact patient with dose instructions as noted. Nohelia Cortes RPh 05/25/2023, 12:17 PM documented in this encounter Plan of Treatment Upcoming Encounters Date Type Department Care Team (Late st Contact Info) Description 05/27/2023 2:00 PM EST Hem/Onc Treatment Hematology/Oncology Treatment, [place] [address] [place] [address] Martha, Chair 10 Hem Onc Scenery [address] [place] [address] 05/28/2023 11:00 AM EST Office Visit Orthopaedics [facility] [address] [place] [address] Forrest Davidson, 132 [place] [address] 09/30/2023 9:20 AM EDT Office Visit Family Practice [facility] [address] [place] [address] Shiva Rich III, MD [address] [facility] [place] [address] 10/01/2023 3:15 PM EDT Office Visit Hematology/Oncology [facility] [address] [place] [address] Efraín Leone MD [address] [facility] [place] [address] 11/12/2023 11:20 AM EDT Office Visit Dermatology [facility] [address] [place] [address] Margarita Figueredo PA-C [address] [facility] [place] [phone] 02/25/2024 9:30 AM EDT Imaging Radiology [facility] 1st [facility] 132 [place] [address] 04/21/2024 10:30 AM EDT Office Visit Sleep Disorders Ctr [facility] [address] [place] [phone] Viktoriya White CRNP 132 [place] [address] Scheduled Procedures Name Priority Associated Diagnoses Date/Ti [...] this encounter Medical Devices Implanted Type Area Acid Pumper Device Identifier Shelf Expiration Date Model / Serial / Lot Knee X3 Ins Pos Cs Sz4 11 - Sn/A - [id number] Implanted:Qty: 1 on 05/11/2023 by Forrest Davidson, DO at OR [facility] Right: Knee FRANNIE : ORTHOPAEDICS [...] Advance Directives occurred with: Patient Care Teams Foundation Assistant Relationship Specialty Start Date End Date Shiva Rich III, MD [address] [facility] [place] [address] PCP - General Family Medicine 09/10/18 documented as of this encounter
--- OUTSIDE RECORDS SUMMARY | 2023-07-14 14:39 | External Medical Summary | Summary of Care ---
Author Name Unknown Organization [facility] Address [address] [facility] [place] [address] Phone [phone] Care Team Providers Care Regulated Program Manager Name Role Phone Hilario ANDRADE MD, Shiav Kebede Primary Care Provider [phone] Reason for Visit * Reason Onset Date Comments Medication Administration 05/22/2023 venofe r Encounter Details Date Type Department Care Team (Late st Contact Info) Description 05/22/2023 Telephone Hematology/Oncology [facility] [place] 200 [facility] [place] [address] Efraín Leone MD 200 [facility] [address] Medication Administration (venofer) Allergies Active Allergy Reactions Criticality Noted Date [...] (5mg) ALL OTHER EVENINGS OR DIRECTED BY [facility]. 105 Tablet 3 07/18/2022 [...] right 05/11/2023 Alcohol abuse 05/11/2023 Atherosclerosis of [place] co ronary artery without angina pectoris 09/10/2022 [...] Resolved Date Atherosclerotic heart diseas e of [place] coronary artery with other forms of angina [...] mRNA, LNP-s, No Pre serve, 2-Dose Series ([employer]) 05/16/2021,09/23/2020,08/26/2020 Covid-19, Mrna, Lnp-s, Pf, B ivalent, 30 Mcg, IM, 12 yrs and above ([employer]) 05/09/2022 Pneumococcal Conjugate Vacc, 13 Valent (Prevnar) [...] encounter Miscellaneous Notes * Telephone Encounter - Dena WellerNAIDA - 05/22/2023 8:[address] Leone: "She had right TKA done on 05/12/2023. Just before the surgery, hemoglobin level increased to around 12.2 g/dL. She had a drop in hemoglobin to around 9.5 in late March 2023. She had hematoma at that time. Postoperatively hemoglobin dropped down to around 8.4 g/dL and now it is around 7.4. As of 05/21/2023. I would like to get ferritin, iron profile for further checkup I would like to give her IV iron in the form of Venofer 300 mg every week x 2. Repeat weekly CBCD x 3 weeks.. If she has no active bleeding and she needs anticoagulation treatment, we should continue that" Order received for Venofer 300mg IV weekly x 2 doses Norlina created and routed to provider for signature Prior auth is not needed, patient can be scheduled. Cbcd added for weekly x3 Dr. Leone: Patient states she is having bright red discharge from her right knee from surgery, the surgeon is aware and he "was not concerned about the hgb" per patient Patient is agreeable to Venofer after educating patient on Venofer. Scheduling: Please contact patient to schedule on 503 schedule, 2 hr appointment for "Venofer 1/2" (Vasu). Thank you! -Patient also needs "ferritin and iron screen" prior to iron infusion, please schedule lab appointment at any [facility] (Dr. Leone ordered this) documented in this encounter Plan of Treatment Upcoming Encounters Date Type Department Care Team (Late st Contact Info) Description 05/28/2023 11:00 AM EST Office Visit Orthopaedics [facility] [place] [address] Forrest Davidson, [address] [place] [address] 09/30/2023 9:20 AM EDT Office Visit Family Practice [facility] [place] [address] [place] [address] [address] Shiva Rich III, MD [address] [place] [address] [address] 10/01/2023 3:15 PM EDT Office Visit Hematology/Oncology [facility] [place] [address] [place] [address] [address] Efraín Leone MD 200 [address]on [place] [address] 11/12/2023 11:20 AM EDT Office Visit Dermatology [facility] [address] [place] [address] Margarita Figueredo PA-C 200 [facility] [place] [phone] 02/25/2024 9:30 AM EDT Imaging Radiology [address] 132 [facility] [place] [address] 04/21/2024 10:30 AM EDT Office Visit Sleep Disorders Ctr [facility] 132 [facility] [place] [phone] Viktoriya White CRNP 132 [facility] [place] [address] Scheduled Orders Name Type Priority Associated Diagnoses Orde r Schedule CBC WITH WBC DIFFERENTIAL Lab STAT Other iron deficiency anemia Every Week for 3 Occurrences starting 05/22/2023 until 05/22/2024 Scheduled Procedures Name Priority Associated Diagnoses Date/Ti [...] this encounter Medical Devices Implanted Type Area Stock Letterer Device Identifier Shelf Expiration Date Model / Serial / Lot Knee X3 Ins Pos Cs Sz4 11 - Sn/A - [id number] Implanted:Qty: 1 on 05/11/2023 by Forrest Davidson, at OR [facility] Right: Knee FRANNIE : ORTHOPAEDICS 10/16/2027 [id number] / N/A / [id number] documented as of this encounter Visit Diagnoses Diagnosis Other iron deficiency anemia- Primary documented in this encounter Advance Directives Latest Code Status on File Code Status Date Activated Date Inactivated Comments Full Code 05/11/2023 4:30 PM 05/12/2023 8:11 PM Thi s order reflects the patients wishes and were consensually agreed upon. Question Answer Comments Discussion of Advance Directives occurred with: Patient Care Teams Regulated Program Manager Relationship Specialty Start Date End Date Shiva Rich III, MD 200 [facility] [place] [address] PCP - General Family Medicine 09/10/18 documented as of this encounter
--- OUTSIDE RECORDS SUMMARY | 2023-07-14 14:39 | External Medical Summary | Summary of Care ---
Author Name Unknown Organization [facility] Address [address] [facility] [place] [address] Phone [phone] Care Team Providers Care Supervisor Stone Name Role Phone Hilario ANDRADE MD, Shiva Kebede Primary Care Provider [phone] Encounter Details Date Type Department Care Team (Late st Contact Info) Description 05/21/2023 Orders Only Hematology/Oncology [facility] Thomas [place] 200 [facility] [place] [address] Efraín Leone MD 200 [facility] [place] [address] Other iron deficiency anemia* Allergies Active Allergy Reactions Criticality Noted Date Comments Bee Venom Edema Other 01/10/2016 Lisinopril Cough 09/04/2016 documented as of this encounter (statuses as of 05/21/2023) Medications Medication Sig Dispensed Refills Start Date [...] (5mg) ALL OTHER EVENINGS OR DIRECTED BY [facility]. 105 Tablet 3 07/18/2022 Active Multi [...] as of this encounter (statuses as of 05/21/2023) Active Problems Problem Noted Date Diagnosed Date Postoperative anemia due to acute blood loss S/P total knee arthroplasty, right 05/11/2023 Alcohol abuse 05/11/2023 Atherosclerosis of [place] co ronary artery without angina pectoris 09/10/2022 [...] as of this encounter (statuses as of 05/21/2023) Resolved Problems Problem Noted Date Diagnosed Date Resolved Date Atherosclerotic heart diseas e of [place] coronary artery with other forms of angina [...] as of this encounter (statuses as of 05/21/2023) Immunizations Name Administration Dates Next Due COVID-19 mRNA, LNP-s, No Pre serve, 2-Dose Series ([employer]) 05/16/2021,09/23/2020,08/26/2020 Covid-19, Mrna, Lnp-s, Pf, B ivalent, [...] as of this encounter Progress Notes * Efraín Leone MD - 05/21/2023 7:05 PM EDT She had right TKA done on 05/12/2023. Just [...] week x 2. Repeat weekly CBCD x 2 weeks.. If she has no active bleeding and she needs anticoagulation treatment, we should continue that. documented in this encounter Plan of Treatment Upcoming Encounters Date Type Department Care Team (Late st Contact Info) Description 05/22/2023 6:45 AM EDT Anticoagulation Pharmacy Call Center WB [address] [place] [address] Ccp, [facility] 58 60 [facility] [place] [address] 05/28/2023 11:00 AM EST Office Visit Orthopaedics [facility] [address] [place] [address] Forrest Davidson, [address] [place] [address] 09/30/2023 9:20 AM EDT Office Visit Family Practice [facility] [address] [place] [address] Shiva Rich III, MD [address] [facility] [place] [address] 10/01/2023 3:15 PM EDT Office Visit Hematology/Oncology [facility] [address] [place] [address] Efraín Leone MD 200 [facility] [place] [address] 11/12/2023 11:20 AM EDT Office Visit Dermatology [facility] [address] [place] [address] Margarita Figueredo PA-C 200 [facility] [place] [phone] 02/25/2024 9:30 AM EDT [facility] 1st [facility], [place] 132 [facility] [place] [address] 04/21/2024 10:30 AM EDT Office Visit Sleep Disorders Ctr Jerson [facility]ass, [place] 132 [facility] [place] [phone] Viktoriya White CRNP 132 [facility] [place] [address] Scheduled Orders Name Type Priority Associated Diagnoses Orde r Schedule FERRITIN Lab Routine Other iron deficiency anemia Expected: 05/29/2023, Expires: 05/21/2024 IRON SCREEN, INCLUDING TIBC Lab Routine Other iron deficiency anemia Expected: 05/29/2023, Expires: 05/21/2024 Scheduled Procedures Name Priority Associated Diagnoses Date/Ti [...] this encounter Medical Devices Implanted Type Area Copra Processor Device Identifier Shelf Expiration Date Model / Serial / Lot Knee X3 Ins Pos Cs Sz4 11 - Sn/A - [id number] Implanted:Qty: 1 on 05/11/2023 by Forrest Davidson, at OR [facility] Right: Knee FRANNIE : ORTHOPAEDICS [...] Directives occurred with: Patient Care Teams Supervisor Stone Relationship Specialty Start Date End Date Shiva Rich III, MD 200 [place] [address] PCP - General Family Medicine 09/10/18 documented as of this encounter
--- OUTSIDE RECORDS SUMMARY | 2023-07-14 14:39 | External Medical Summary | Summary of Care ---
Author Name Unknown Organization [facility] Address [address] [facility] [place] [address] Phone [phone] Care Team Providers Care Fermenting Cellar Dropper Name Role Phone Hilario ANDRADE MD, Shiva Kebede Primary Care Provider [phone] Reason for Visit * Reason Comments Dosage Adjustment Via Phone (anticoag Cl inic) Encounter Details Date Type Department Care Team (Latest Contact Info) Description 05/21/2023 6:45 AM EDT Anticoagulation Pharmacy Call Center [address] [place] [address] [facility] 58 60 [facility] [place] [address] Paroxysmal atrial fibrillation (HCC)* Allergies Active Allergy [...] (5mg) ALL OTHER EVENINGS OR DIRECTED BY [facility]. 105 Tablet 3 07/18/2022 Active Multi [...] right 05/11/2023 Alcohol abuse 05/11/2023 Atherosclerosis of [place] co ronary artery without angina pectoris 09/10/2022 [...] Resolved Date Atherosclerotic heart diseas e of [place] coronary artery with other forms of angina [...] mRNA, LNP-s, No Pre serve, 2-Dose Series ([employer]) 05/16/2021,09/23/2020,08/26/2020 Covid-19, Mrna, Lnp-s, Pf, B ivalent, [...] this encounter Progress Notes * Nohelia Cortes, [facility] - 05/21/2023 4:27 PM EDT Medication Therapy Disease Management - Anticoagulation Patient: Nenita Fleming | : 1955 Subjective Contacts Type Contact Phone/Fax 05/21/2023 04:27 PM EDT Phone (Outgoing) Nenita Fleming (Self) [phone] (M) Spoke to Patient Patient-Reported Symptoms: Patient Findings Comments: Pt met with Ortho today. CBC repeated, Hgb now 7.4 (was 7.1 on 05/19). Pt denies any signs of bleeding. Advised to hold Warfarin today. [facility] will reach out to provider to advise if we shouldcontinue to hold or restart Warfarin due to history of stroke. Objective Current Warfarin Dose As of 05/21/2023 Warfarin maintenance plan: No maintenance plan INR Result As of 05/21/2023 INR goal: 2.0-3.0 INR used for dosin.0 (05/21/2023) Assessment & Plan Warfarin Plan As of 05/21/2023 Full warfarin instructions: 05/21: Hold Next INR check: Additional Dosing Information: Description Temp: Advantage HH TKA 05/12- weekly checks x 4 weeks Edson Gambino- pt prefers Thurs AMIODARONE started 04/28/22 Nohelia Cortes RP Clinical Pharmacist 05/21/2023, 4:29 PM documented in this encounter Plan of Treatment Upcoming Encounters Date Type Department Care Team (Late st Contact Info) Description 05/22/2023 6:45 AM EDT Anticoagulation Pharmacy Call Center WB [address] [place] [address] [facility] 58 60 [facility] [place] [address] 05/28/2023 11:00 AM EST Office Visit Orthopaedics Edson Casass [place] [address] [place] [address] Forrest Davidson, 132 [place] [address] 09/30/2023 9:20 AM EDT Office Visit Family Practice Maninder Thomas [place] 200 [facility] [address] [place] [address] Shiva Rich III, MD 200 [facility] [place] [address] 10/01/2023 3:15 PM EDT Office Visit Hematology/Oncology [facility] [address] [place] [address] Efraín Leone MD [address] [place] [address] 11/12/2023 11:20 AM EDT Office Visit Dermatology [facility] [address] [place] [address] Margarita Figueredo PA-C 200 [facility] [place] [phone] 02/25/2024 9:30 AM EDT Imaging Radiology [address] 132 [facility] [place] [address] 04/21/2024 10:30 AM EDT Office Visit Sleep Disorders Ctr [facility] 132 [facility] [place] [phone] Viktoriya White CRNP 132 [facility] [place] [address] Scheduled Procedures Name Priority Associated Diagnoses Date/Ti [...] 080 07/2022, 10/06/2022, Additional history exists GFR 05/12/2024 [...] this encounter Medical Devices Implanted Type Area Storage Wharfage Clerk Device Identifier Shelf Expiration Date Model / Serial / Lot Knee X3 Ins Pos Cs Sz4 11 - Sn/A - [id number] Implanted:Qty: 1 on 05/11/2023 by Forrest Davidson, [...] Advance Directives occurred with: Patient Care Teams Fermenting Cellar Dropper Relationship Specialty Start Date End Date Shiva Rich III, MD 200 [facility] [place] [address] PCP - General Family Medicine 09/10/18 documented as of this encounter"
--- OUTSIDE RECORDS SUMMARY | 2023-07-14 14:39 | External Medical Summary | Summary of Care ---
Author Name Unknown Organization [facility] Address [address] [facility] [place] [address] Phone [phone] Care Team Providers Care It Software Developer Name Role Phone Hilario ANDRADE MD, Shiva Kebede Primary Care Provider [phone] Reason for Visit * Reason Onset Date Comments Protime Testing 05/25/2023 Encounter Details Date Type Department Care Team (Late st Contact Info) Description 05/25/2023 Telephone Pharmacy Call Center [address] [place] [address] [facility] [address] [place] [address] Protime Testing (/) Allergies Active Allergy Reactions Criticality Noted Date [...] (5mg) ALL OTHER EVENINGS OR DIRECTED BY [facility]. 105 Tablet 3 07/18/2022 Active [...] right 05/11/2023 Alcohol abuse 05/11/2023 Atherosclerosis of [place] co ronary artery without angina pectoris 09/10/2022 [...] Resolved Date Atherosclerotic heart diseas e of [place] coronary artery with other forms of angina [...] encounter Miscellaneous Notes * Telephone Encounter - Nohelia Cortes RPh - 05/25/2023 11:07 AM EST PT/INR order signed Nohelia Cortes Rph, Pharm.D. Clinical Pharmacist [facility] ([facility]) (formerly Telepharmacy) [phone] 05/25/2023,11:08 AM documented in this encounter Plan of Treatment Upcoming Encounters Date Type Department Care Team (Late st Contact Info) Description 05/25/2023 6:00 PM EST Anticoagulation Pharmacy Call Center [address] [place] [address] [facility] 58 60 [facility] [place] [address] 05/27/2023 2:00 PM EST Hem/Onc Treatment Hematology/Oncology Treatment, [place] [address] [place] [address] Martha, Chair 10 Hem Onc [facility] 200 [facility] [place] [address] 05/28/2023 11:00 AM EST Office Visit Orthopaedics [facility] [address] [place] [address] Forrest Davidson, [address] [place] [address] 09/30/2023 9:20 AM EDT Office Visit Family Practice [facility] [place] 200 [facility] [place] [address] Shiva Rich III, MD 200 [facility] [place] [address] 10/01/2023 3:15 PM EDT Office Visit Hematology/Oncology [facility] Martha [place] [address] [place] [address] Efraín Leone MD [address] [place] [address] 11/12/2023 11:20 AM EDT Office Visit Dermatology [facility] [place] [address] [place] [place] [address] Margarita Figueredo PA-C 200 [facility] [place] [phone] 02/25/2024 9:30 AM EDT Imaging Radiology [facility] 1st [facility], [place] 132 [facility] [place] [address] 04/21/2024 10:30 AM EDT Office Visit Sleep Disorders Ctr [facility] 132 [facility] [place] [phone] Viktoriya White CRNP 132 [facility] [place] [address] Pending Results Name Type Priority Associated Diagnoses Date /Time PT INR Lab Routine Paroxysmal atrial fibrillation (HCC) 05/25/2023 11:11 AM EST Scheduled Orders Name Type Priority Associated Diagnoses Orde r Schedule PT INR Lab Routine Paroxysmal atrial fibrillation (HCC) Other, Please specify in Comments field for 26 Occurrences starting 05/25/2023 until 05/25/2024 Scheduled Procedures Name Priority Associated Diagnoses Date/Ti [...] this encounter Medical Devices Implanted Type Area Fnp Device Identifier Shelf Expiration Date Model / Serial / Lot Knee X3 Ins Pos Cs Sz4 11 - Sn/A - [id number] Implanted:Qty: 1 on 05/11/2023 by Forrest Davidson, at OR [facility] [...] Advance Directives occurred with: Patient Care Teams It Software Developer Relationship Specialty Start Date End Date Shiva Rich III, MD 200 [place] [address] PCP - General Family Medicine 09/10/18 documented as of this encounter
--- OUTSIDE RECORDS SUMMARY | 2023-07-14 14:39 | External Medical Summary | Summary of Care ---
Author Name Unknown Organization [facility] Address [address] [facility] [place] [address] Phone [phone] Care Team Providers Care Bartenders Name Role Phone Hilario ANDRADE MD, Shiva Kebede Primary Care Provider [phone] Reason for Visit * Reason Onset Date Comments Medication Administration 05/22/2023 venofe r Encounter Details Date Type Department Care Team (Late st Contact Info) Description 05/22/2023 Telephone Hematology/Oncology [facility] [place] [address] [facility] [place] [address] Efraín Leone MD 200 [facility] [address] Medication Administration (venofer) Allergies Active Allergy Reactions [...] (5mg) ALL OTHER EVENINGS OR DIRECTED BY [facility]. 105 Tablet 3 07/18/2022 Active Multi [...] right 05/11/2023 Alcohol abuse 05/11/2023 Atherosclerosis of [place] co [...] mRNA, LNP-s, No Pre serve, 2-Dose Series (Venuelabs) 05/16/2021,09/23/2020,08/26/2020 Covid-19, Mrna, Lnp-s, Pf, B ivalent, 30 Mcg, IM, 12 yrs and above (Venuelabs) 05/09/2022 Pneumococcal Conjugate Vacc, 13 Valent (Prevnar) [...] encounter Miscellaneous Notes * Telephone Encounter - Margarita Zhang OSA - 05/22/2023 10:40 AM EDT Spoke to patient, scheduled labs 05/25 and treatment 05/27/23. * Telephone Encounter - Dena Weller LPN - 05/22/2023 8:[address] [...] Venofer 300mg IV weekly x 2 doses Elba created and routed to provider for signature [...] infusion, please schedule lab appointment at any [facility] lab (Dr. Leone ordered this) documented in this encounter Plan of Treatment Upcoming Encounters Date Type Department Care Team (Late st Contact Info) Description 05/25/2023 11:00 AM EST [facility] [address] [place] [address] Wilfredo Gambino 132 [place] [address] 05/27/2023 2:00 PM EST Hem/Onc Treatment Hematology/Oncology Treatment, [place] [address] [place] [address] Park, Chair 10 Hem Onc Sc[address] [place] [address] 05/28/2023 11:00 AM EST Office Visit Orthopaedics [facility] 132 [facility] [place] [address] Forrest Davidson, 132 [facility] [place] [address] 09/30/2023 9:20 AM EDT Office Visit Family Practice [facility] [address] [place] [address] Shiva Rich III, MD 200 [facility] [place] [address] 10/01/2023 3:15 PM EDT Office Visit Hematology/Oncology [facility] 200 [facility] [place] [address] Efraín Leone MD 200 [facility] [place] [address] 11/12/2023 11:20 AM EDT Office Visit Dermatology [facility] [address] [place] [address] Margarita Figueredo PA-C 200 [facility] [place] [phone] 02/25/2024 9:30 AM EDT Imaging Radiology [address] 132 [facility] [place] [address] 04/21/2024 10:30 AM EDT Office Visit Sleep Disorders Ctr [facility] 132 [facility] [place] [phone] Viktoriya White CRNP 132 [facility] [place] [address] Scheduled Orders Name Type Priority Associated Diagnoses [...] this encounter Medical Devices Implanted Type Area Coke Drawer Device Identifier Shelf Expiration Date Model / Serial / Lot Knee X3 Ins Pos Cs Sz4 11 - Sn/A - [id number] Implanted:Qty: 1 on 05/11/2023 by Forrest Davidson, [...] Advance Directives occurred with: Patient Care Teams Bartenders Relationship Specialty Start Date End Date Shiva Rich III, MD 200 [facility] [place] [address] PCP - General Family Medicine 09/10/18 documented as of this encounter
--- OUTSIDE RECORDS SUMMARY | 2023-07-14 14:39 | External Medical Summary | Summary of Care ---
Author Name Unknown Organization [facility] Address [address] [facility] [place] [address] Phone [phone] Care Team Providers Care Screw Remover Name Role Phone Hilario ANDRADE MD, Shiva Kebede Primary Care Provider [phone] Reason for Referral * Evaluate & Treat - Unlimited Visits (Within 10 days (routine)) - Authorized Specialty Diagnoses / Procedures Referred By Andrea cochran Referred To Contact Physical Therapy / Physical Medicine And Rehab Diagnoses Status post total right knee replacement Forrest Davidson DO [address] [place] [address] Referral ID Status Reason Start Date Expiration Date Visits Requested Visits Authorized [id number] Authorized Specialty Services Required 05/21/2023 999 999 Question Answer Referral Priority Within 10 days (routine) Where should this appointment be scheduled? [facility] Reason for Visit * Reason Comments Post-Op Right TKA Encounter Details Date Type Department Care Team (Late st Contact Info) Description 05/21/2023 1:00 PM EDT Office Visit Orthopaedics [facility] [address] [place] [address] Forrest Davidson DO [address] [place] [address] Status post total right knee replacement* Allergies [...] right 05/11/2023 Alcohol abuse 05/11/2023 Atherosclerosis of [place] co ronary artery without angina pectoris 09/10/2022 [...] Resolved Date Atherosclerotic heart diseas e of [place] coronary artery with other forms of angina [...] mRNA, LNP-s, No Pre serve, 2-Dose Series ([employer]) 05/16/2021,09/23/2020,08/26/2020 Covid-19, Mrna, Lnp-s, Pf, B ivalent, 30 Mcg, IM, 12 yrs and above (Jive Bike) 05/09/2022 Pneumococcal Conjugate Vacc, 13 Valent (Prevnar) [...] as of this encounter Progress Notes * OluForrest muhammad, DO - 05/21/2023 1:13 PM EDT ORTHOPAEDIC SURGERY - Post-Op Clinic Note SUBJECTIVE: Nenita Fleming is a 67 year old female. Chief Complaint Patient presents with Post-Op Right TKA HPI: She presents today with her roughly 10 days removed from right knee replacement. She reports doing reasonably well and better over the past few days. She feels that her swelling, wounds and pain have improved. She does not report any chest pain, shortness of breath, fevers, chills or night sweats. She does not report any calf pain. She has continued daily dressing changes. She does not report any current drainage from the wound or blisters. She is currently on her home regimen of Coumadin as well as aspirin. Her Lovenox bridge has been discontinued. Review of patient's allergies indicates: Allergen Reactions Bee Venom Edema Other Lisinopril Cough Current Outpatient Medications Medication Sig Dispense Refill Cephalexin 500 MG Oral Capsule Take 1 Capsule by mouth in the morning and 1 Capsule at noon and 1 Capsule in the evening and 1 Capsule before bedtime. 28 Capsule 0 oxyCODONE-Acetaminophen 5-325 MG Oral Tablet (Percocet) Take 1 Tablet by mouth every 6 hours as needed for Pain, Severe. 20 Tablet 0 oxygen IN GAS 3 LPM bled through [...] (5mg) ALL OTHER EVENINGS OR DIRECTED BY [facility]. 105 Tablet 3 Multi Vitamin Daily Oral [...] needed for Pain, Severe. 30 Tablet 0 No current facility-administered medications for this visit. OBJECTIVE: Diagnostic studies: X-rays of the right knee were obtained, viewed and interpreted in the office today demonstrating evidence of stable total knee prosthesis in anatomic alignment without evidence of hardware complication or prosthetic loosening. Soft tissue swelling noted. Vital Signs: There were no vitals taken for this visit. Physical Exam: Examination of the right knee reveals well-healed incisions without evidence of active drainage or signs of infection. She does have some degree of soft tissue swelling involving the knee and lower leg. There is also evidence of unroofed blisters noted along the lateral as well as medial aspect ofthe knee. No evidence of signs of infection. She exhibits nearly full extension and flexion to about 85 actively today. Collateral stability intact. She has good quad strength on straight leg raise. No calf tenderness. Distal motor function and sensation intact. ASSESSMENT: Status post total right knee replacement (Primary) - XR KNEE 3 VIEWS - PHYSICAL THERAPY REFERRAL OP - oxyCODONE-Acetaminophen 5-325 MG Oral Tablet (Percocet); Take 1 Tablet by mouth every 6 hours as needed for Pain, Severe. Other orders - Cephalexin 500 MG Oral Capsule; Take 1 Capsule by mouth in the morning and 1 Capsule at noon and 1 Capsule in the evening and 1 Capsule before bedtime. Follow Up: Return in about 1 week (around 05/28/2023) for Wound check. | For: Wound check PLAN: We reviewed updated x-rays in the office today. Her wounds appear stable and somewhat improved withrespect to the blisters noted on previous images. There are no gross findings or concern for infection. I would like her to perform daily wound care/dressing changes with use of Xeroform gauze, 4x4s,ABDs and Medipore tape. Appropriate dressing changes were instructed to both the patient and . All questions were answered. I recommend no bathing until after her next follow-up appointment. She may continue rehabilitation via home health. She was provided a prescription for outpatient physical therapy which she may initiate next week. I recommended continued use of the Jemal hose for lower e xtremity edema on during the day and off at night for another week. We discussed her postoperative anemia for which she is asymptomatic. A message was sent to her light rail operator Dr. Leone. I will see her back in 1 week for wound check. I would like her to take a oral antibiotic for prophylaxis. She or her are to notify me of any concerning findings as outlined today. All questions answered to their satisfaction. This chart was completed in part utilizing [employer] Speech Voice Recognition Software. Grammatical errors, random word insertions, pronoun errors, and incomplete sentences are an occasional consequence of this system due to software limitations, ambient noise, and hardware issues. Any formal questions or concerns about the content, text, or information contained within the body of this dictation should be directly addressed to the provider for clarification. Forrest Davidson DO 05/21/2023 1:13 PM documented in this encounter Nursing Notes * Medina Conde MED ASSIST - 05/21/2023 1:12 PM EDT Pt presents today for right TKA post op, DOS 05/11/23. documented in this encounter Plan of Treatment Upcoming Encounters Date Type Department Care Team (Late st Contact Info) Description 05/28/2023 11:00 AM EST Office Visit Orthopaedics [facility] 132 [facility] [place] [address] Forrest Davidson, [address] [place] [address] 09/30/2023 9:20 AM EDT Office Visit Family Practice [facility] [address] [place] [address] Shiva Rich III, MD 200 [facility] [place] [address] 10/01/2023 3:15 PM EDT Office Visit Hematology/Oncology [facility] [place] [address] [place] [address] Efraín Leone MD 200 [facility] [place] [address] 11/12/2023 11:20 AM EDT Office Visit Dermatology [facility] [address] [place] [address] Margarita Figueredo PA-C 200 [facility] [place] [phone] 02/25/2024 9:30 AM EDT Imaging Radiology [facility] 1st [facility] [address] [place] [address] 04/21/2024 10:30 AM EDT Office Visit Sleep Disorders Ctr [facility] [address] [place] [phone] Viktoriya White CRNP [address] [place] [address] Pending Results Name Type Priority Associated Diagnoses Date /Time XR KNEE 3 VIEWS Medical Imaging Routine Status post total right knee replacement 05/21/2023 1:25 PM EDT Scheduled Procedures Name Priority Associated Diagnoses Date/Ti me COLONOSCOPY FLEXIBLE PROXIMA L DIAGNOSTIC Recall History of colonic polyps Scheduled Referrals Name Type Priority Associated Diagnoses Orde r Schedule PHYSICAL THERAPY REFERRAL OP Referral Within 10 days (routine) Status post total right knee replacement Ordered: 05/21/2023 Health Maintenance Due Date Last Done Comments [...] this encounter Medical Devices Implanted Type Area Surgical Coder Device Identifier Shelf Expiration Date Model / Serial / Lot Knee X3 Ins Pos Cs Sz4 11 - Sn/A - [id number] Implanted:Qty: 1 on 05/11/2023 by Forrest Davidson, at OR [facility] Right: Knee FRANNIE : ORTHOPAEDICS 10/16/2027 [...] Advance Directives occurred with: Patient Care Teams Screw Remover Relationship Specialty Start Date End Date Shiva Rich III, MD 200 [facility] [place] [address] PCP - General Family Medicine 09/10/18 documented as of this encounter"
--- OUTSIDE RECORDS SUMMARY | 2023-07-14 14:39 | External Medical Summary | Summary of Care ---
Author Name Unknown Organization [facility] Address [address] [facility] [place] [address] Phone [phone] Care Team Providers Care Pole Inspector Name Role Phone Hilario ANDRADE MD, Shiva Kebede Primary Care Provider [phone] Reason for Visit * Reason Comments Outpatient Testing Encounter Details Date Type Department Care Team (Late st Contact Info) Description 05/25/2023 11:00 AM EST Laboratory [facility], [facility] [phone] [facility] 132 [place] [address] Other iron deficiency anemia; Paroxysmal atrial fibrillation [...] (5mg) ALL OTHER EVENINGS OR DIRECTED BY [facility]. 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 pectoris 09/10/2022 [...] Resolved Date Atherosclerotic heart diseas e of [place] coronary artery with other forms of angina [...] mRNA, LNP-s, No Pre serve, 2-Dose Series ([employer]) 05/16/2021,09/23/2020,08/26/2020 Covid-19, Mrna, Lnp-s, Pf, B ivalent, [...] Call Center WB [address] Public [place] [address] [facility] 58 60 [facility] [place] [address] 05/27/2023 2:00 PM EST Hem/Onc Treatment Hematology/Oncology Treatment, [place] [address] [place], [place] [address] Park, Chair 10 Hem Onc [facility] [address] [place] [address] 05/28/2023 11:00 AM EST Office Visit Orthopaedics [facility] [address] [place] [address] Forrest Davidson, DO [address] [place] [address] 09/30/2023 9:20 AM EDT Office Visit Family Practice [facility] [address] [place] [address] Shiva Rich III, MD [address] [facility] [place] [address] 10/01/2023 3:15 PM EDT Office Visit Hematology/Oncology [facility] [address] [place] [address] Efraín Leone MD [address] [place] [address] 11/12/2023 11:20 AM EDT Office Visit Dermatology [facility] [address] [place] [address] Margarita Figueredo PA-C 200 [facility] [place] [phone] 02/25/2024 9:30 AM EDT Imaging Radiology [facility] 1st [facility] [address] [place] [address] 04/21/2024 10:30 AM EDT Office Visit Sleep Disorders Ctr [facility] [address] [place] [phone] Viktoriya White CRNP [address] [place] [address] Pending Results Name Type Priority Associated Diagnoses Date /Time FERRITIN Lab Routine Other iron deficiency anemia 05/25/2023 11:07 AM EST IRON SCREEN, INCLUDING TIBC Lab Routine Other iron deficiency anemia 05/25/2023 11:07 AM EST Scheduled Procedures Name Priority Associated [...] this encounter Medical Devices Implanted Type Area Nutritionist Public Health Device Identifier Shelf Expiration Date Model / Serial / Lot Knee X3 Ins Pos Cs Sz4 11 - Sn/A - [id number] Implanted:Qty: 1 on 05/11/2023 by Forrest Davidson, DO at OR [facility] Right: Knee FRANNIE : ORTHOPAEDICS 10/16/2027 [id number] / N/A / [id number] documented as of this encounter Procedures Procedure Name Priority Date/Time Associated Diagnosis Comments PT INR Routine 05/25/2023 11:11 AM EST Paroxysmal atrial fibrillation (HCC) documented in this encounter Results * (ABNORMAL) PT INR (05/25/2023 11:11 AM EST) Prothrombin Time 19.8(H) 11.6 - 15.2 seconds 05/25/2023 11:48 AM EST [facility] 57-10 INR 1.7(H) 0.8 - 1.2 05/25/2023 11:48 AM EST [facility] [place] [facility] 57-10 Blood Venous blood specimen / Unknown Venipuncture / Unknown 05/25/2023 11:11 AM EST 05/25/2023 11:11 AM EST Narrative [facility] 57-10 - 05/25/2023 11:48 AM EST Warfarin Therapy INR: 2.0-3.0 conventional anticoagulation INR: 2.5-3.5 high intensity anticoagulation Nohelia Cortes [facility] LAB BLOOD ORDERABLES LAB[facility]ORY [facility] 57-10 [address] [place] [address] documented in this encounter Visit Diagnoses Diagnosis [...] Advance Directives occurred with: Patient Care Teams Pole Inspector Relationship Specialty Start Date End Date Shiva Rich III, MD [address] [place] [address] [place] [address] PCP - General Family Medicine 09/10/18 documented as of this encounter
--- OUTSIDE RECORDS SUMMARY | 2023-07-14 14:39 | External Medical Summary ---
Author Name Unknown Address Unknown Organization K01:LABORATORY [facility] [place] - [address] [place] [address] Laboratory Report Ordering Provider Test Date Status JOSHUA MARR 05/25/2023 11:07:50 Final Observation Date Value Abnormality Reference (Units ) Status Iron 05/25/2023 11:07:50 39 33-151 (ug/dL) Final Iron-binding capacity 05/25/2023 11:07:50 356 250-425 (ug/dL) Final Transferrin Sat % 05/25/2023 11:07:50 11 Below low normal 15-55 (%) Final Performing Location LABORATORY [facility] - [address] [place] [address]
--- OUTSIDE RECORDS SUMMARY | 2023-07-14 14:39 | External Medical Summary ---
Author Name Unknown Address Unknown Organization K01:[facility] [address] [place] [address] Laboratory Report Ordering Provider Test Date Status JOSHUA MARR 05/25/2023 11:07:50 Final Observation Date Value Abnormality Reference (Units ) Status Ferritin 05/25/2023 11:07:50 195 Above high normal 13 -150 (ng/mL) Final Postmenopausal women have hi gher ferritin levels than pre-menopausal women. The above reference interval is based on pre-menopausal women. Performing Location LABORATORY [facility] - [address] [place] [address]
--- OUTSIDE RECORDS SUMMARY | 2023-07-14 14:40 | External Medical Summary | Summary of Care ---
Author Name Unknown Organization [facility] Address [address] [facility] [place] [address] Phone [phone] Care Team Providers Care Advertising Representative Name Role Phone Hilario ANDRADE MD, Shiva Kebede Primary Care Provider [phone] Encounter Details Date Type Department Care Team (Late st Contact Info) Description 05/20/[address] [facility] [address] [place] [address] Forrest Davidson, [address] [place] [address] Allergies Active Allergy Reactions Criticality Noted Date Comments Bee Venom Edema Other 01/10/2016 Lisinopril Cough 09/04/2016 documented as of this encounter (statuses as of 05/20/2023) Medications Medication Sig Dispensed Refills Start Date [...] (5mg) ALL OTHER EVENINGS OR DIRECTED BY [facility]. 105 Tablet 3 07/18/2022 [...] Pain, Severe. 30 Tablet 0 05/16/2023 Active documented as of this encounter (statuses as of 05/20/2023) Active Problems Problem Noted Date Diagnosed Date Postoperative anemia due to acute blood loss S/P total knee arthroplasty, right 05/11/2023 Alcohol abuse 05/11/2023 Atherosclerosis of [place] co ronary artery without angina pectoris [...] as of this encounter (statuses as of 05/20/2023) Resolved Problems Problem Noted Date Diagnosed Date Resolved Date Atherosclerotic heart diseas e of [place] coronary artery with other forms of [...] as of this encounter (statuses as of 05/20/2023) Immunizations Name Administration Dates Next Due COVID-19 [...] Care Team (Late st Contact Info) Description 05/20/2023 6:15 PM EDT Anticoagulation Pharmacy Call Center WB [phone] [facility] [place] [address] [facility] 58 60 [facility] [place] [address] 05/21/2023 1:00 PM EDT Office Visit Orthopaedics [facility] [address] [place] [address] Forrest Davidson, [address] [place] [address] 09/30/2023 9:20 AM EDT Office Visit Family Practice [facility] [address] [place] [address] HalifaxShiva canseco III, MD [address] [place] [address] 10/01/2023 3:15 PM EDT Office Visit Hematology/Oncology [facility] [address] [place] [address] Efraín Leone MD 200 [facility] [place] [address] 11/12/2023 11:20 AM EDT Office Visit Dermatology [facility] [address] [place] [address] Margarita Figueredo PA-C 200 [facility] [place] [phone] 02/25/2024 9:30 AM EDT Imaging Radiology [address] 132 [facility] [place] [address] 04/21/2024 10:30 AM EDT Office Visit Sleep Disorders Ctr [facility] 132 [facility] [place] [phone] Viktoriya White CRNP 132 [facility] [place] [address] Scheduled Procedures Name Priority Associated Diagnoses Date/Ti [...] this encounter Medical Devices Implanted Type Area Seamless Tube Roller Device Identifier Shelf Expiration Date Model / Serial / Lot Knee X3 Ins Pos Cs Sz4 11 - Sn/A - [id number] Implanted:Qty: 1 on 05/11/2023 by Forrest Davidson, DO at OR [facility] Right: Knee FRANNIE : ORTHOPAEDICS 10/16/2027 [id number] / N/A / [id number] documented as of this encounter Procedures Procedure Name Priority Date/Time Associated Diagnosis Comments CHEMISTRY-OUTSIDE Routine 05/19/2023 documented in this encounter Results * (ABNORMAL) CHEMISTRY-OUTSIDE (05/19/2023) Not all results display below - see scan for full detail OUTSIDE LAB (SEE SCANNED REPORT) Comment:SEE SCAN: CBC, AUTO DIFF, PT/INR CREATININE-OUTSID E LAB OUTSIDE LAB (SEE SCANNED REPORT) EGFR-OUTSIDE LAB OUT SIDE LAB (SEE SCANNED REPORT) POTASSIUM-OUTSIDE LAB OUTSIDE LAB (SEE SCANNED REPORT) GLUCOSE-OUTSIDE LAB OUTSIDE LAB (SEE SCANNED REPORT) HOURS FASTING OUTSID E LAB (SEE SCANNED REPORT) TRIGLYCERIDES-OUT SIDE LAB OUTSIDE LAB (SEE SCANNED REPORT) CHOLESTEROL-OUTSI DE LAB OUTSIDE LAB (SEE SCANNED REPORT) HDL-OUTSIDE LAB OUTS LEELEE LAB (SEE SCANNED REPORT) CHOL/HDL RATIO-OUTSIDE LAB OUTSIDE LA B (SEE SCANNED REPORT) LDL (CALCULATED)-OUTS LEELEE LAB OUTSIDE LAB (SEE SCANNED REPORT) LDL (DIRECT MEASURE)-OUTSIDE LAB OUTSIDE LAB (SEE SCANNED REPORT) HEMOGLOBIN, [id number] LAB OUTSIDE LAB (SEE SCANNED REPORT) PHOSPHORUS-OUTSID E LAB OUTSIDE LAB (SEE SCANNED REPORT) PTH-OUTSIDE LAB OUTS LEELEE LAB (SEE SCANNED REPORT) MICROALBUMIN RATIO-OUTSIDE LAB OUTSIDE LA B (SEE SCANNED REPORT) PROTEIN, UA-OUTSIDE LAB OUTSIDE LAB (SEE SCANNED REPORT) HEMOGLOBIN-OUTSID E LAB 7.1(L) 12.0 - 15.2 G/DL OUTSIDE LAB (SEE SCANNED REPORT) 05/19/2023 History Per Patient LABORATORY OUTSIDE LAB (SEE SCANNED REPORT) documented in this encounter Advance Directives Latest Code Status on File Code Status Date Activated Date Inactivated Comments Full Code 05/11/2023 4:30 PM 05/12/2023 8:11 PM Thi s order reflects the patients wishes and were consensually agreed upon. Question Answer Comments Discussion of Advance Directives occurred with: Patient Care Teams Advertising Representative Relationship Specialty Start Date End Date Shiva Rich III, MD [address] [place] [address] PCP - General Family Medicine 09/10/18 documented as of this encounter
--- OUTSIDE RECORDS SUMMARY | 2023-07-14 14:40 | External Medical Summary | Summary of Care ---
Author Name Unknown Organization [facility] Address [address] [facility] [place] [address] Phone [phone] Care Team Providers Care Research Methodologist Name Role Phone Hilario ANDRADE MD, Shiva Kebede Primary Care Provider [phone] Reason for Visit * Reason Onset Date Comments Home Health 05/18/2023 Encounter Details Date Type Department Care Team (Late st Contact Info) Description 05/18/2023 Telephone Orthopaedics, Heydi Breen [address] [place] [address] [place] [address] Balta Hyde PA-C [address] [place] [address] [place] [phone] Home Health Allergies Active Allergy Reactions Criticality Noted Date Comments Bee Venom Edema Other 01/10/2016 Lisinopril Cough 09/04/2016 documented as of this encounter (statuses as of 05/18/2023) Medications Medication Sig Dispensed Refills Start Date [...] CPAP every night at bedtime. 0 Active Enoxaparin Sodium 100 MG/ML Injection Solution Prefilled Syringe (Lovenox) Inject 100 mg under the skin in the morning and 100 mg before bedtime. Do all this for 7 days. 14 mL 0 05/12/2023 05/19/2023 Active Sennosides 8.6 MG Oral Tablet (Senokot) Take 2 Tablets by mouth in the morning. 140 Tablet 0 05/13/2023 Active oxyCODONE-Acetaminoph en 5-325 MG Oral Tablet (Percocet) Take 1 Tablet by mouth every 4 hours as needed for Pain, Severe. 30 Tablet 0 05/16/2023 Active documented as of this encounter (statuses as of 05/18/2023) Active Problems Problem Noted Date Diagnosed Date Postoperative anemia due to acute blood loss S/P total knee arthroplasty, right 05/11/2023 Alcohol abuse 05/11/2023 Atherosclerosis of [place] co ronary artery without angina pectoris [...] as of this encounter (statuses as of 05/18/2023) Resolved Problems Problem Noted Date Diagnosed Date Resolved Date Atherosclerotic heart diseas e of [place] coronary artery with other forms of [...] as of this encounter (statuses as of 05/18/2023) Immunizations Name Administration Dates Next Due COVID-19 mRNA, LNP-s, No Pre serve, 2-Dose Series (Freever) 05/16/2021,09/23/2020,08/26/2020 Covid-19, Mrna, Lnp-s, Pf, B ivalent, 30 Mcg, IM, 12 yrs and above (Freever) 05/09/2022 Pneumococcal Conjugate Vacc, 13 Valent (Prevnar) [...] encounter Miscellaneous Notes * Telephone Encounter - Minna Arias OSA - 05/18/2023 11:10 AM EDT Another nurse from [facility] called asking if they should hold off on physical therapy. * Telephone Encounter - Minna Arias OSA - 05/18/2023 10:54 AM EDT [facility] nurse , Sharona, called [place] office stating that when she went to see thepatient on Thursday her madisyn dressing was saturated and they reached out to the systems development consultant doctor and itwas recommended that the dressing be changed and kept dry. The nurse stated that her had changed the dressing again today ,05/18/23, and she stated that there is still a good bit of drainage. Nurse was requesting the patient to be seen sooner than the scheduled appointment on 05/21/23. If patient is seen sooner please reach out to Sharona at [phone]. * Telephone Encounter - Balta Hyde PA-C - 05/18/2023 10:45 AM EDT 3 Attempts made to contact pt this morning by telephone without success. documented in this encounter Plan of Treatment Upcoming Encounters Date Type Department Care Team (Late st Contact Info) Description 05/20/2023 6:15 PM EDT Anticoagulation Pharmacy Call Center WB [address]60 [facility] [place] [address] Ccps, [facility] 58 [facility] [address] 05/21/2023 1:00 PM EDT Office Visit Orthopaedics [facility] [address] [place] [address] Forrest Davidson DO [address] [place] [address] 09/30/2023 9:20 AM EDT Office Visit [facility] [place] [address] Shiva Rich III, MD [address] [facility] [place] [address] 10/01/2023 3:15 PM EDT Office Visit Hematology/Oncology [facility] [place] [employer] [address] Efraín Leone MD [address] [place] [address] 11/12/2023 11:20 AM EDT Office Visit Dermatology [facility] [place] [address] [place] [address] Margarita Figueredo PA-C 200 [facility] [place] [phone] 02/25/2024 9:30 AM EDT Imaging Radiology [facility] 1st [facility] [place] 132 [facility] [place] [address] 04/21/2024 10:30 AM EDT Office Visit Sleep Disorders Ctr [facility] 132 [facility] [place] [phone] Viktoriya White CRNP [address] [place] [address] Scheduled Procedures Name Priority Associated Diagnoses Date/Ti [...] *NEPHROLOGY REFERRAL DUE TO RESISTANT HTN 04/24/2023 DIABETES-EYE EXAM 08/28/2023 08/28/2022, , 08/17/2020, Additional history exists [...] this encounter Medical Devices Implanted Type Area Housekeeping Associate Device Identifier Shelf Expiration Date Model / Serial / Lot Knee X3 Ins Pos Cs Sz4 11 - Sn/A - [id number] Implanted:Qty: 1 on 05/11/2023 by Forrest Davidson, DO at OR [facility] Right: Knee FRANNIE : ORTHOPAEDICS [...] Advance Directives occurred with: Patient Care Teams Research Methodologist Relationship Specialty Start Date End Date Hilario ANDRADE, Shiva Kebede MD 200 [facility] [place] [place] [address] PCP - General Family Medicine 09/10/18 documented as of this encounter
--- OUTSIDE RECORDS SUMMARY | 2023-07-14 14:40 | External Medical Summary ---
Author Name Unknown Address Unknown Organization K0G[facility] [address] [place] [address] Laboratory Report Ordering Provider Test Date Status ALMA PORTILLO 05/21/2023 14:08:27 Final Discharge Order Observation Date Value Abnormality Reference (Units ) Status SYNC LEUKOCYTES IN BLOOD BY AUTOMATED COUNT 05/21/2023 14:08:27 10.02 4.00-10.80 (K/uL) Final Segs 05/21/2023 14:08:27 75.6 Above high normal 40.0-75.0 (%) Final Lymphs % 05/21/2023 14:08:27 13.4 Below low normal 18.0-42.0 (%) Final Monos 05/21/2023 14:08:27 9.5 1.0-11.0 (%) Final Eosinophils 05/21/2023 14:08:27 1.3 0.0-6.0 (%) Final Basos 05/21/2023 14:08:27 0.2 0.0-2.0 (%) Final Absolute Segs 05/21/2023 14:08:27 7.58 1.80-7.70 (K/uL) Final Lymphs, absolute 05/21/2023 14:08:27 1.34 1.00-4.80 (K/ul) Final Monos, Abs 05/21/2023 14:08:27 0.95 0.00-1.10 (K/uL) Final Eos, Abs 05/21/2023 14:08:27 0.13 0.00-0.70 (K/uL) Final Basos, Abs 05/21/2023 14:08:27 0.02 0.00-0.20 (K/uL) Final Performing Location [facility] [address] - [address] [place] [address]
--- OUTSIDE RECORDS SUMMARY | 2023-07-14 14:40 | External Medical Summary | Summary of Care ---
Author Name Unknown Organization [facility] Address [address] [facility] [place] [address] Phone [phone] Care Team Providers Care Appeals Specialist Name Role Phone Hilario ANDRADE MD, Shiva Kebede Primary Care Provider [phone] Reason for Visit * Reason Comments Outpatient Testing Encounter Details Date Type Department Care Team (Late st Contact Info) Description 05/21/2023 2:40 PM EDT Laboratory Laboratory, [facility] [phone] [facility] [address] Right internal carotid occlusion; Left renal mass; Postoperative anemia due to acute blood loss Allergies Active Allergy Reactions Criticality Noted Date [...] (5mg) ALL OTHER EVENINGS OR DIRECTED BY [facility]. 105 Tablet 3 [...] before bedtime. 28 Capsule 0 05/21/2023 Active documented as of this encounter (statuses as of 05/21/2023) Active Problems Problem Noted Date Diagnosed Date Postoperative anemia due to acute blood loss S/P total knee arthroplasty, right 05/11/2023 Alcohol abuse 05/11/2023 Atherosclerosis of [place] co ronary artery without angina pectoris 09/10/2022 [...] Resolved Date Atherosclerotic heart diseas e of [place] coronary artery with other forms of angina [...] mRNA, LNP-s, No Pre serve, 2-Dose Series (Vision Source) 05/16/2021,09/23/2020,08/26/2020 Covid-19, Mrna, Lnp-s, Pf, B ivalent, [...] 05/28/2023 11:00 AM EST Office Visit Orthopaedics [facility] [address] [place] [address] Forrest Davidson, 132 [place] [address] 09/30/2023 9:20 AM EDT Office Visit Family Practice [facility] [place] [address] [place] [address] Shiva Rich III, MD [address] [place] [address] 10/01/2023 3:15 PM EDT Office Visit Hematology/Oncology [facility] [address] [place] [address] Efraín Leone MD [address] [place] [address] 11/12/2023 11:20 AM EDT Office Visit Dermatology [facility] [place] [address] [place] [address] Margarita Figueredo PA-C 200 [facility] [place] [phone] 02/25/2024 9:30 AM EDT Imaging Radiology [address] 132 [facility] [place] [address] 04/21/2024 10:30 AM EDT Office Visit Sleep Disorders Ctr [facility] 132 [facility] [place] [phone] Viktoriya White CRNP [address] [place] [address] Pending Results Name Type Priority Associated Diagnoses Date /Time PT INR Lab Routine Right internal carotid occlusion Left renal mass 05/21/2023 2:08 PM EDT CBC WITH WBC DIFFERENTIAL Lab Routine Postoperative anemia due to acute blood loss 05/21/2023 2:08 PM EDT CBC Lab Routine Postoperative anemia due to acute blood loss 05/21/2023 2:08 PM EDT DIFFERENTIAL, AUTOMATED Lab Routine Postoperative anemia due to acute blood loss 05/21/2023 2:08 PM EDT Scheduled Procedures Name Priority Associated [...] this encounter Medical Devices Implanted Type Area Lighting Adviser Device Identifier Shelf Expiration Date Model / Serial / Lot Knee X3 Ins Pos Cs Sz4 11 - Sn/A - [id number] Implanted:Qty: 1 on 05/11/2023 by Forrest Davidson, at OR [facility] Right: Knee FRANNIE : ORTHOPAEDICS 10/16/2027 [id number] / N/A / [id number] documented as of this encounter Visit Diagnoses Diagnosis Right internal carotid occlusion Occlusion and stenosis of carotid artery without mention of cerebral infarction Left renal mass Unspecified disorder of kidney and ureter Postoperative anemia due to acute blood loss Acute posthemorrhagic anemia documented in this encounter Advance Directives Latest Code Status on File Code Status Date Activated Date Inactivated Comments Full Code 05/11/2023 4:30 PM 05/12/2023 8:11 PM Thi s order reflects the patients wishes and were consensually agreed upon. Question Answer Comments Discussion of Advance Directives occurred with: Patient Care Teams Appeals Specialist Relationship Specialty Start Date End Date Shiva Rich III, MD 200 [place] [address] PCP - General Family Medicine 09/10/18 documented as of this encounter
--- OUTSIDE RECORDS SUMMARY | 2023-07-14 14:40 | External Medical Summary | Summary of Care ---
Author Name Unknown Organization [facility] Address [address] [facility] [place] [address] Phone [phone] Care Team Providers Care Splitter Tender Name Role Phone Hilario ANDRADE MD, Shiva Keebde Primary Care Provider [phone] Encounter Details Date Type Department Care Team (Late st Contact Info) Description 05/20/[address] [facility] [address] [place] [address] Forrest Davidson, [address] [place] [address] Allergies Active Allergy Reactions Criticality Noted Date [...] ALL OTHER EVENINGS OR DIRECTED BY [facility]. 105 Tablet 3 07/18/2022 Active Multi [...] right 05/11/2023 Alcohol abuse 05/11/2023 Atherosclerosis of [place] co ronary artery without angina pectoris 09/10/2022 [...] Resolved Date Atherosclerotic heart diseas e of [place] coronary artery with other forms of angina [...] 30 Mcg, IM, 12 yrs and above (DiversityDoctor) 05/09/2022 Pneumococcal Conjugate Vacc, 13 Valent (Prevnar) [...] encounter Miscellaneous Notes * Telephone Encounter - Camelia Stein OSA - 05/21/2023 10:20 AM EDT Scanned Lab report into chart * Telephone Encounter - Camelia Stein OSA - 05/20/2023 11:03 AM EDT Sharona from [facility] calling about CBC and PT INR asking if it had been reviewed. And had faxedinformation over to us, let her know we had not received them and to have them re faxed. Patient had also asked about [facility] for PT. Patient has appt tomorrow. Her call back is [phone] documented in this encounter Plan of Treatment Upcoming Encounters Date Type Department Care Team (Late st Contact Info) Description 05/21/2023 1:00 PM EDT Office Visit Orthopaedics [facility] [address] [address] Forrest Davidson, 132 [place] [address] 09/30/2023 9:20 AM EDT Office Visit Family Practice [facility] [address] [place] [address] Shiva Rich III, MD 200 [facility] [place] [address] 10/01/2023 3:15 PM EDT Office Visit Hematology/Oncology [facility] [address] [place] [address] Efraín Leone MD 200 [facility] [place] [address] 11/12/2023 11:20 AM EDT Office Visit Dermatology [facility] [address] [place] [address] Margarita Figueredo PA-C 200 [facility] [place] [phone] 02/25/2024 9:30 AM EDT Imaging Radiology [facility] 1st [facility] 132 [place] [address] 04/21/2024 10:30 AM EDT Office Visit Sleep Disorders Ctr [facility] 132 [place] [phone] Viktoriya White CRNP 132 [place] [address] Scheduled Procedures Name Priority Associated Diagnoses Date/Ti [...] 08/17/2020, Additional history exists HbA1c 11/03/2023 05/04/2023, 0807/2022, 09/10/2022, Additional history exists Albumin/Creatinine Ratio 02/18/2024 [...] this encounter Medical Devices Implanted Type Area Eyelet Machine Operator Device Identifier Shelf Expiration Date Model / Serial / Lot Knee X3 Ins Pos Cs Sz4 11 - Sn/A - [id number] Implanted:Qty: 1 on 05/11/2023 by Forrest Davidson, DO at OR [facility] Right: Knee FRANNIE : ORTHOPAEDICS 10/16/2027 [id number] / N/A / [id number] documented as of this encounter Advance Directives Latest Code Status on File Code Status Date Activated Date Inactivated Comments Full Code 05/11/2023 4:30 PM 05/12/2023 8:11 PM Thi s order reflects the patients wishes and were consensually agreed upon. Question Answer Comments Discussion of Advance Directives occurred with: Patient Care Teams Splitter Tender Relationship Specialty Start Date End Date Shiva Rich III, MD 200 [facility] [place] [address] PCP - General Family Medicine 09/10/18 documented as of this encounter
--- OUTSIDE RECORDS SUMMARY | 2023-07-14 14:40 | External Medical Summary | Summary of Care ---
Author Name Unknown Organization [facility] Address [address] [facility] [place] [address] Phone [phone] Care Team Providers Care Electrical Journeyman Name Role Phone Hilario ANDRADE MD, Shiva Kebede Primary Care Provider [phone] Reason for Visit * Reason Onset Date Comments Home Health 05/18/2023 Encounter Details Date Type Department Care Team (Late st Contact Info) Description 05/18/2023 Telephone Orthopaedics, Heydi Breen [address] [place] [address] [place] [address] Balta Hyde PA-C [address] [place] [address] [place] [phone] Home Health Allergies Active Allergy Reactions Criticality [...] (5mg) ALL OTHER EVENINGS OR DIRECTED BY [facility]. 105 Tablet 3 07/18/2022 Active [...] Pain, Severe. 30 Tablet 0 05/16/2023 Active Enoxaparin Sodium 100 MG/ML Injection Solution Prefilled Syringe (Lovenox) Inject 100 mg under the skin in the morning and 100 mg before bedtime. Do all this for 7 days. 14 mL 0 05/12/2023 3 documented as of this encounter (statuses as of 05/20/2023) Active Problems Problem Noted Date Diagnosed Date Postoperative anemia due to acute blood loss S/P total knee arthroplasty, right 05/11/2023 Alcohol abuse 05/11/2023 Atherosclerosis of [place] co ronary artery without angina pectoris 09/10/2022 [...] Resolved Date Atherosclerotic heart diseas e of [place] coronary artery with other forms of angina [...] mRNA, LNP-s, No Pre serve, 2-Dose Series (ImpressPages) 05/16/2021,09/23/2020,08/26/2020 Covid-19, Mrna, Lnp-s, Pf, B ivalent, 30 Mcg, IM, 12 yrs and above (ImpressPages) 05/09/2022 Pneumococcal Conjugate Vacc, 13 Valent (Prevnar) [...] Telephone Encounter - Minna Arias OSA - 05/20/2023 1:02 PM EDT Just saw response to message sent on 05/18/23 Reached out to patient and patient stated that they had just changed her dressing today(05/20/23) and Kai's response was relayed to her and she stated that she could take off the dressing and send pictures but it was advised to leave them on until she comes to office tomorrow. * Telephone Encounter - Minna Arias OSA - 05/18/2023 11:10 AM EDT Another nurse from [facility] called asking if they should hold off on physical therapy. * Telephone Encounter - Minna Arias OSA - 05/18/2023 10:[address] [facility] nurse , Sharona, called [place] office stating that when she went to see thepatient on Thursday her madisyn dressing was saturated and they reached out to the bank operations officer doctor and itwas recommended that the dressing be changed and kept dry. The nurse stated that her had changed the dressing again today ,05/18/23, and she stated that there is still a good bit of drainage. Nurse was requesting the patient to be seen sooner than the scheduled appointment on 05/21/23. If patient is seen sooner please reach out to Sharona at [phone]. * Telephone Encounter - Balta Hyde PA-C - 05/18/2023 10:45 AM EDT 3 Attempts made to contact pt this morning by telephone without success. documented in this encounter Plan of Treatment Upcoming Encounters Date Type Department Care Team (Latest Contact Info) Description 05/20/2023 6:15 PM EDT Anticoagulation Pharmacy Call Center WB [address] Public [place] [address] [facility] 58 60 [facility] [place] [address] Paroxysmal atrial fibrillation (HCC)* 05/21/2023 1:00 PM EDT Office Visit Orthopaedics [address] [place] [address] Forrest Davidson, DO 132 [facility] [place] [address] 09/30/2023 9:20 AM EDT Office Visit Family Practice [facility] [address] [place] [address] Shiva Rich III, MD 200 [facility] [place] [address] 10/01/2023 3:15 PM EDT Office Visit Hematology/Oncology [facility] [address] [place] [address] Efraín Leone MD 200 [facility] [place] [address] 11/12/2023 11:20 AM EDT Office Visit Dermatology [facility] [address] [place] [address] Margarita Figueredo PA-C 200 [facility] [place] [phone] 02/25/2024 9:30 AM EDT Imaging Radiology [address] 132 [facility] [place] [address] 04/21/2024 10:30 AM EDT Office Visit Sleep Disorders Ctr [facility] 132 [facility] [place] [phone] Viktoriya White CRNP 132 [facility] [place] [address] Scheduled Procedures Name Priority Associated Diagnoses Date/Ti [...] this encounter Medical Devices Implanted Type Area Brazer Furnace Device Identifier Shelf Expiration Date Model / Serial / Lot Knee X3 Ins Pos Cs Sz4 11 - Sn/A - [id number] Implanted:Qty: 1 on 05/11/2023 by Forrest Davidson DO at OR [facility] Right: Knee FRANNIE : [...] Advance Directives occurred with: Patient Care Teams Electrical Journeyman Relationship Specialty Start Date End Date Shiva Rich III, MD 200 [facility] [place] [address] PCP - General Family Medicine 09/10/18 documented as of this encounter
--- OUTSIDE RECORDS SUMMARY | 2023-07-14 14:40 | External Medical Summary | Summary of Care ---
Author Name Unknown Organization [facility] Address [address] [facility] [place] [address] Phone [phone] Care Team Providers Care Environmental Science Professor Name Role Phone Hilario ANDRADE MD, Shiva Kebede Primary Care Provider [phone] Reason for Visit * Reason Onset Date Comments Home Health 05/18/2023 Encounter Details Date Type Department Care Team (Late st Contact Info) Description 05/18/2023 Telephone Orthopaedics, Heydi Breen [address] [place] [address] [place] [address] Balta Hyde PA-C [address] [place] [address] [place] [phone] Home Health Allergies Active Allergy Reactions Criticality [...] right 05/11/2023 Alcohol abuse 05/11/2023 Atherosclerosis of [place] co ronary artery without angina pectoris 09/10/2022 [...] Resolved Date Atherosclerotic heart diseas e of [place] coronary artery with other forms of angina [...] mRNA, LNP-s, No Pre serve, 2-Dose Series ([facility]) 05/16/2021,09/23/2020,08/26/2020 Covid-19, Mrna, Lnp-s, Pf, B ivalent, 30 Mcg, IM, 12 yrs and above ([facility]) 05/09/2022 Pneumococcal Conjugate Vacc, 13 Valent (Prevnar) [...] encounter Miscellaneous Notes * Telephone Encounter - Balta Hyde PA-C - 05/18/2023 10:45 AM EDT 3 Attempts made to contact pt this morning by telephone without success. documented in this encounter Plan of Treatment Upcoming Encounters Date Type Department Care Team (Late st Contact Info) Description 05/20/2023 6:15 PM EDT Anticoagulation Pharmacy Call Center 58[address]60 [facility] [place] [address] [facility] 58 60 [facility] [place] [address] 05/21/2023 1:00 PM EDT Office Visit Orthopaedics [facility] 132 [facility] [place] [address] Forrest Davidson, 132 [facility] [place] [address] 09/30/2023 9:20 AM EDT Office Visit Family Practice [facility] [address] [place] [address] Shiva Rich III, MD [address] [place] [address] 10/01/2023 3:15 PM EDT Office Visit Hematology/Oncology [facility] [place] [address] [place] [address] Efraín Leone MD [address] [place] [address] 11/12/2023 11:20 AM EDT Office Visit Dermatology [facility] [address] [place] [address] Margarita Figueredo PA-C 200 [facility] [place] [phone] 02/25/2024 9:30 AM EDT Imaging Radiology [facility] 1st [facility] 132 [facility] [place] [address] 04/21/2024 10:30 AM EDT Office Visit [facility] Disorders Ctr [facility] 132 [facility] [place] [phone] Viktoriya White CRNP [address] [place] [address] Scheduled Procedures Name Priority Associated Diagnoses Date/Ti [...] this encounter Medical Devices Implanted Type Area Run Lead Device Identifier Shelf Expiration Date Model / Serial / Lot Knee X3 Ins Pos Cs Sz4 11 - Sn/A - [id number] Implanted:Qty: 1 on 05/11/2023 by Forrest Davidson, DO at OR [facility] Right: Knee FRANNIE : ORTHOPAEDICS [...] Advance Directives occurred with: Patient Care Teams Environmental Science Professor Relationship Specialty Start Date End Date Shiva Rihc III, MD 200 [facility] [place] [address] PCP - General Family Medicine 09/10/18 documented as of this encounter
--- OUTSIDE RECORDS SUMMARY | 2023-07-14 14:40 | External Medical Summary | Summary of Care ---
Author Name Unknown Organization [facility] Address [address] [facility] [place] [address] Phone [phone] Care Team Providers Care Pediatric Dietician Name Role Phone Hilario ANDRADE MD, Shiva Kebede Primary Care Provider [phone] Reason for Visit * Reason Comments Dosage Adjustment Via Phone (anticoag Cl inic) Encounter Details Date Type Department Care Team (Latest Contact Info) Description 05/20/2023 6:15 PM EDT Anticoagulation Pharmacy Call Center 58-60 Public [place] [address] [facility] 58 60 [facility] [place] [address] Paroxysmal atrial fibrillation (HCC)* Allergies Active Allergy [...] (5mg) ALL OTHER EVENINGS OR DIRECTED BY [facility]. 105 Tablet 3 07/18/2022 Active [...] right 05/11/2023 Alcohol abuse 05/11/2023 Atherosclerosis of [place] co ronary artery without angina pectoris 09/10/2022 [...] Resolved Date Atherosclerotic heart diseas e of [place] coronary artery with other forms of angina [...] mRNA, LNP-s, No Pre serve, 2-Dose Series (UXPin) 05/16/2021,09/23/2020,08/26/2020 Covid-19, Mrna, Lnp-s, Pf, B ivalent, [...] [facility] - 05/20/2023 2:16 PM EDT Medication Therapy Disease Management - Anticoagulation Patient: Nenita Fleming | : 1955 Subjective Contacts Type Contact Phone/Fax 05/20/2023 02:31 PM EDT Phone (Outgoing) Nenita Fleming (Self) [phone] (M) Spoke to Patient - Patient-Reported Symptoms: Patient Findings Comments: INR in range. However, Hgb level came back low at 7.1 from today (see outdoor lab scan) Previous Hemoglobin Results: Lab Results Component Value Date/Time HGB - [facility] 8.8 (L) 05/12/2023 04:08 AM HGB - [facility] 10.2 (L) 05/11/2023 05:22 PM HGB - [facility] 12.2 05/04/2023 10:28 AM HGB - [facility] 13.4 05/04/2017 07:35 AM HGB - [facility] 13.5 04/23/2017 07:21 AM HGB - [facility] 14.5 09/17/2016 02:49 PM Pt having a small amount of bleeding from recent TKA but husbands states it is controllable not gushing. Advised would prefer to have pt seen. Pt is scheduled to see Ortho tomorrow. Advised to hold Warfarin today and we will follow up after provider visit. aware when to seek medical attention. Objective Current Warfarin Dose As of 05/20/2023 Warfarin maintenance plan: 7.5 mg (5 mg x 1.5) every Fri; 5 mg (5 mg x 1) all other days INR Result As of 05/20/2023 INR goal: 2.0-3.0 INR used for dosin.2 (05/19/2023) Assessment & Plan Warfarin Plan As of 05/20/2023 Full warfarin instructions: 7.5 mg every Fri; 5 mg all other days Next INR check: Additional Dosing Information: Description Temp: [facility] 05/12- weekly checks x 4 weeks Ck'kwasi Gambino- pt prefers Thurs AMIODARONE started 04/28/22 Nohelia Cortes RPh Clinical Pharmacist 05/20/2023, 2:16 PM * Kristine Montaño copy reader - 05/20/2023 12:53 PM EDT Incoming fax from [facility]. Pts INR was drawn on 05/19/23. INR = 2.2. CBC is also included in same report and is scanned into chart for review. Thank you, Kristine Montaño [facility] (formerly [facility]) [phone] 05/20/2023,12:54 PM documented in this encounter Plan of Treatment Upcoming Encounters Date Type Department Care Team (Late st Contact Info) Description 05/21/2023 6:45 AM EDT Anticoagulation Pharmacy Call Center WB 58-60 [facility] [place] [address] [facility], [facility] 58 60 [facility] [place] [address] 05/21/2023 1:00 PM EDT Office Visit Orthopaedics [facility] 132 [facility] [place] [address] Forrest Davidson, 132 [facility] [place] [address] 09/30/2023 9:20 AM EDT Office Visit Family Practice [facility] [address] [place] [address] Shiva Rich III, MD [address] [place] [address] 10/01/2023 3:15 PM EDT Office Visit Hematology/Oncology [facility] [address] [place] [address] Efraín Leone MD [address] [place] [address] 11/12/2023 11:20 AM EDT Office Visit Dermatology [facility] [address] [place] [address] Margarita Figueredo PA-C [address] [place] [phone] 02/25/2024 9:30 AM EDT Imaging Radiology [facility] 132 [facility] [place] [address] 04/21/2024 10:30 AM EDT Office Visit Sleep Disorders Ctr [facility] 132 [facility] [place] [phone] Viktoriya White CRNP [address] [place] [address] Scheduled Procedures Name Priority Associated Diagnoses Date/Ti [...] this encounter Medical Devices Implanted Type Area Director Organizational Device Identifier Shelf Expiration Date Model / Serial / Lot Knee X3 Ins Pos Cs Sz4 11 - Sn/A - [id number] Implanted:Qty: 1 on 05/11/2023 by Forrest Davidson, at OR [facility] Right: Knee FRANNIE : ORTHOPAEDICS 10/16/2027 [id number] / N/A / [id number] documented as of this encounter Procedures Procedure Name Priority Date/Time Associated Diagnosis Comments OUTSIDE LAB-PT/INR Routine 05/19/2023 documented in this encounter Results * OUTSIDE LAB-PT/INR (05/19/2023) INR-OUTSIDE LAB 2.2 History Per Patient LABORATORY documented in this encounter Visit Diagnoses Diagnosis Paroxysmal atrial fibrillation (HCC)- Primary Atrial fibrillation documented in this encounter Advance Directives Latest Code Status on File Code Status Date Activated Date Inactivated Comments Full Code 05/11/2023 4:30 PM 05/12/2023 8:11 PM Thi s order reflects the patients wishes and were consensually agreed upon. Question Answer Comments Discussion of Advance Directives occurred with: Patient Care Teams Pediatric Dietician Relationship Specialty Start Date End Date Shiva Rich III, MD 200 [facility] [place] [address] PCP - General Family Medicine 09/10/18 documented as of this encounter"
--- OUTSIDE RECORDS SUMMARY | 2023-07-14 14:40 | External Medical Summary ---
Author Name Unknown Address Unknown Organization K0G:LABORATORY [facility] [place] [address] [place] [id number] Laboratory Report Ordering Provider Test Date Status ALMA PORTILLO 05/21/2023 14:08:27 Final Discharge Order Observation Date Value Abnormality Reference (Units ) Status WBC, Total 05/21/2023 14:08:27 10.02 4.00-10.8 0 (K/uL) Final RBC 05/21/2023 14:08:27 2.36 3.85-5.15 (M/uL) Final Hemoglobin 05/21/2023 14:08:27 7.4 Below low normal 12 .0-15.3 (g/dL) Final HCT 05/21/2023 14:08:27 23.7 Below low normal 36. 0-45.2 (%) Final MCV 05/21/2023 14:08:27 100.4 81.5-97.5 (fL) Final MCH 05/21/2023 14:08:27 31.4 27.0-34.0 (pg) Final MCHC 05/21/2023 14:08:27 31.2 32.0-36.0 (g/dL) Final RDW 05/21/2023 14:08:27 15.0 11.5-15.5 (%) Final Platelets 05/21/2023 14:08:27 482 Above high normal 14 0-400 (K/uL) Final MPV 05/21/2023 14:08:27 9.3 6.6-11.1 ( fL) Final Performing Location LABORATORY [facility] [address] [place] [address]
--- OUTSIDE RECORDS SUMMARY | 2023-07-14 14:40 | External Medical Summary | Summary of Care ---
Author Name Unknown Organization [facility] Address [address] [facility] [address] Phone [phone] Care Team Providers Care Cyber Security Instructor Name Role Phone Hilario ANDRADE MD, Shiva Kebede Primary Care Provider [phone] Reason for Visit * Reason Onset Date Comments Follow Up 05/19/2023 Encounter Details Date Type Department Care Team (Late st Contact Info) Description 05/19/2023 Telephone Orthopaedics, [place] [address] [address] [place] [address] Forrest Davidson, DO [address] [facility] [place] [address] Follow Up Allergies Active Allergy Reactions Criticality Noted Date Comments Bee Venom Edema Other 01/10/2016 Lisinopril Cough 09/04/2016 documented as of this encounter (statuses as of 05/19/2023) Medications Medication Sig Dispensed Refills Start Date [...] as of this encounter (statuses as of 05/19/2023) Active Problems Problem Noted Date Diagnosed Date Postoperative anemia due to acute blood loss S/P total knee arthroplasty, right 05/11/2023 Alcohol abuse 05/11/2023 Atherosclerosis of [place] co ronary artery without angina pectoris 09/10/2022 [...] as of this encounter (statuses as of 05/19/2023) Resolved Problems Problem Noted Date Diagnosed Date Resolved Date Atherosclerotic heart diseas e of [place] coronary artery with other forms of angina [...] as of this encounter (statuses as of 05/19/2023) Immunizations Name Administration Dates Next Due COVID-19 mRNA, LNP-s, No Pre serve, 2-Dose Series (SquadMail) 05/16/2021,09/23/2020,08/26/2020 Covid-19, Mrna, Lnp-s, Pf, B ivalent, [...] encounter Miscellaneous Notes * Telephone Encounter - Forrest Davidson DO - 05/19/2023 9:01 AM EDT Attempted to contact Nenita. No answered-message left to return call. documented in this encounter Plan of Treatment Upcoming Encounters Date Type Department Care Team (Aleks foster Contact Info) Description 05/20/2023 6:15 PM EDT Anticoagulation Pharmacy Call Center 58-60 [facility] [place] [address] [facility] 58 60 [facility] [address] 05/21/2023 1:00 PM EDT Office Visit Orthopaedics [facility] 132 [facility] [place] [address] Forrest Davidson, 132 [facility] [place] [address] 09/30/2023 9:20 AM EDT Office Visit Family Practice [facility] [address] [place] [address] Shiva Rich III, MD [address] [facility] [place] [address] 10/01/2023 3:15 PM EDT Office Visit Hematology/Oncology [facility] [address] [place] [address] Efraín Leone MD [address] [place] [address] 11/12/2023 11:20 AM EDT Office Visit Dermatology [facility] [address] [place] [address] Maragrita Figueredo PA-C 200 [facility] [place] [phone] 02/25/2024 9:30 AM EDT Imaging Radiology [address] [place] [address] 04/21/2024 10:30 AM EDT Office Visit Sleep Disorders Ctr [facility] [address] [place] [phone] Viktoriya White CRNP [address] [place] [address] Scheduled Procedures Name Priority Associated Diagnoses Date/Ti [...] this encounter Medical Devices Implanted Type Area Junior Java Developer Device Identifier Shelf Expiration Date Model / Serial / Lot Knee X3 Ins Pos Cs Sz4 11 - Sn/A - [id number] Implanted:Qty: 1 on 05/11/2023 by Forrest Davidson, DO at OR [facility] Right: Knee FRANNIE : ORTHOPAEDICS [...] Advance Directives occurred with: Patient Care Teams Cyber Security Instructor Relationship Specialty Start Date End Date Shiva Rich III, MD [address] [place] [address] PCP - General Family Medicine 09/10/18 documented as of this encounter
--- OUTSIDE RECORDS SUMMARY | 2023-07-14 14:40 | External Medical Summary | Summary of Care ---
Author Name Unknown Organization [facility] Address [address] [facility] [address] Phone [phone] Care Team Providers Care Merchandise Manager Name Role Phone Hilario ANDRADE MD, Shiva Kebede Primary Care Provider [phone] Reason for Visit * Reason Onset Date Comments Follow Up 05/19/2023 Encounter Details Date Type Department Care Team (Late st Contact Info) Description 05/19/2023 Telephone Orthopaedics, [place] [address] [place] [address] Forrest Davidson, DO [address] [facility] [place] [address] Follow Up Allergies Active Allergy Reactions Criticality [...] (5mg) ALL OTHER EVENINGS OR DIRECTED BY [facility]. 105 Tablet 3 07/18/2022 Active [...] right 05/11/2023 Alcohol abuse 05/11/2023 Atherosclerosis of [place] co ronary artery without angina pectoris 09/10/2022 [...] Resolved Date Atherosclerotic heart diseas e of [place] coronary artery with other forms of angina [...] mRNA, LNP-s, No Pre serve, 2-Dose Series (Enohm) 05/16/2021,09/23/2020,08/26/2020 Covid-19, Mrna, Lnp-s, Pf, B ivalent, [...] Miscellaneous Notes * Telephone Encounter - Forrest Davidson, - 05/19/2023 1:05 PM EDT I contacted Nenita today after attempting early this morning. She reports to be doing reasonably well. She has not participated all that much in physical therapy, specifically noting that she has not performed stairs. She reported some degree of swelling and bleeding with the dressing and therefore r ecommendation was made this past weekend for madisyn removal and dressing changes. She was able to obtain a photo of her wound today which she sent for review. She has described a small blister along the medial aspect of the knee which unroofed. She does not report any fevers, chills or night sweats. No reported chest pain or shortness of breath. No current drainage described. She will continue dressing changes and maintain her current follow-up appointment. I offered her an appointment today in [place]. Home health was notified this morning to obtain blood draw. She has stopped her Lovenox medication is currently on her home regimen of Coumadin and aspirin. All questions were answered to her satisfaction. Recommendations were reviewed. She and her are comfortable with our discussion today. documented in this encounter Plan of Treatment Upcoming Encounters Date Type Department Care Team (Late st Contact Info) Description 05/20/2023 6:15 PM EDT Anticoagulation Pharmacy Call Center 58-[address] [place] [address] [facility] 58 60 [facility] [place] [address] 05/21/2023 1:00 PM EDT Office Visit Orthopaedics [facility] [address] [place] [address] Forrest Davidson DO [address] [place] [address] 09/30/2023 9:20 AM EDT Office Visit Family Practice [facility] [place] [address] [place] [address] [address] [address] Shiva Rich III, MD [address] [place] [address] [address] [address] 10/01/2023 3:15 PM EDT Office Visit Hematology/Oncology [facility] [place] [address] Efraín Leone MD [address] [place] [address] [address] 11/12/2023 11:20 AM EDT Office Visit Dermatology [facility], [place] [address] [place] [address] Margarita Figueredo PA-C [address] [place] [phone] 02/25/2024 9:30 AM EDT Imaging Radiology [address], [place] [address] [place] [address] 04/21/2024 10:30 AM EDT Office Visit Sleep Disorders Ctr [facility] [address] [place] [phone] Viktoriya White CRNP [address] [place] [address] Scheduled Procedures Name Priority Associated Diagnoses Date/Ti [...] this encounter Medical Devices Implanted Type Area Farm Operations Manager Device Identifier Shelf Expiration Date Model / Serial / Lot Knee X3 Ins Pos Cs Sz4 11 - Sn/A - [id number] Implanted:Qty: 1 on 05/11/2023 by Forrest Davidson, DO at OR [facility] Right: Knee FRANNIE : ORTHOPAEDICS [...] Advance Directives occurred with: Patient Care Teams Merchandise Manager Relationship Specialty Start Date End Date Shiva Rich III, MD 200 [facility] [place] [address] PCP - General Family Medicine 09/10/18 documented as of this encounter
--- OUTSIDE RECORDS SUMMARY | 2023-07-14 14:40 | External Medical Summary ---
Author Name Unknown Address Unknown Organization K0[facility]ATORY [place] [facility] [address] [place] [address] Laboratory Report Ordering Provider Test Date Status ALMA PORTILLO 05/21/2023 14:08:27 Final Discharge Order

War farin Therapy
INR: 2.0-3.0 conventional anticoagulation
INR: 2.5-3.5 high intensity anticoagulation Observation Date Value Abnormality Reference (Units ) Status PT 05/21/2023 14:08:27 23.3 Above high normal 11 .6-15.2 (seconds) Final INR 05/21/2023 14:08:27 2.0 Above high normal 0. 8-1.2 Final Performing Location LABORATORY [facility] G[place] [address] [place] [address]
--- OUTSIDE RECORDS SUMMARY | 2023-07-14 14:40 | External Medical Summary | Summary of Care ---
Author Name Unknown Organization [facility] Address [address] [facility] [place] [address] Phone [phone] Care Team Providers Care Food Assembler Commissary Kitchen Name Role Phone Hilario ANDRADE MD, Shiva Kebede Primary Care Provider [phone] Reason for Visit * Reason Onset Date Comments Home Health 05/18/2023 Encounter Details Date Type Department Care Team (Late st Contact Info) Description 05/18/2023 Telephone Orthopaedics, [place] [address] [place] [address] Balta Hyde PA-C [address] [place] [phone] Home Health Allergies Active Allergy Reactions Criticality [...] (5mg) ALL OTHER EVENINGS OR DIRECTED BY [facility]. 105 Tablet 3 07/18/2022 Active Multi [...] right 05/11/2023 Alcohol abuse 05/11/2023 Atherosclerosis of [place] co ronary artery without angina pectoris 09/10/2022 [...] Resolved Date Atherosclerotic heart diseas e of [place] coronary artery with other forms of angina [...] mRNA, LNP-s, No Pre serve, 2-Dose Series (Content360) 05/16/2021,09/23/2020,08/26/2020 Covid-19, Mrna, Lnp-s, Pf, B ivalent, 30 Mcg, IM, 12 yrs and above (Content360) 05/09/2022 Pneumococcal Conjugate Vacc, 13 Valent (Prevnar) [...] Miscellaneous Notes * Telephone Encounter - Minna Arias, SALVADOR - 05/18/2023 10:54 AM EDT [facility] nurse , Sharona, called [place] office stating that when she went to see thepatient on Thursday her madisyn dressing was saturated and they reached out to the application support intern doctor and itwas recommended that the dressing be changed and kept dry. The nurse stated that her had changed the dressing again today ,05/18/23, and she stated that there is still a good bit of drainage. Nurse was requesting the patient to be seen sooner than the scheduled appointment on 05/21/23. If patient is seen sooner please reach out to Sharona at [phone]. * Telephone Encounter - Balta Hyde PA-C - 05/18/2023 10:45 AM EDT 3 Attempts made to contact pt this morning by telephone without success. documented in this encounter Plan of Treatment Upcoming Encounters Date Type Department Care Team (Late st Contact Info) Description 05/20/2023 6:15 PM EDT Anticoagulation Pharmacy Call Center WB [address]60 [facility] [place] [address] [facility], [facility] 58 60 [facility] [place] [address] 05/21/2023 1:00 PM EDT Office Visit Orthopaedics [facility] [address] [place] [address] Forrest Davidson, [address] [place] [address] 09/30/2023 9:20 AM EDT Office Visit Family Practice [facility] [address] [place] [address] Shiva Rich III, MD [address] [facility] [place] [address] 10/01/2023 3:15 PM EDT Office Visit Hematology/Oncology [facility] [place] [address] [address] Efraín Leone MD [address] [place] [address] 11/12/2023 11:20 AM EDT Office Visit Dermatology [facility] [address] [place] [address] [address] [address] Margarita Figueredo PA-C [address] [place] [phone] 02/25/2024 9:30 AM EDT Imaging Radiology [address], [place] [address] [place] [address] 04/21/2024 10:30 AM EDT Office Visit Sleep Disorders Ctr [facility] [address] [place] [phone] Viktoriya White CRNP [address] [place] [address] Scheduled Procedures Name Priority Associated Diagnoses Date/Ti [...] encounter Medical Devices Implanted Type Area Director Athletic Device Identifier Shelf Expiration Date Model / Serial / Lot Knee X3 Ins Pos Cs Sz4 11 - Sn/A - [id number] Implanted:Qty: 1 on 05/11/2023 by Forrest Davidson, [...] Advance Directives occurred with: Patient Care Teams Food Assembler Commissary Kitchen Relationship Specialty Start Date End Date Shiva Rich III, MD 200 [facility] [place] [address] PCP - General Family Medicine 09/10/18 documented as of this encounter
--- OUTSIDE RECORDS SUMMARY | 2023-07-14 14:40 | External Medical Summary | Summary of Care ---
Author Name Unknown Organization [facility] Address [address] [facility] [address] Phone [phone] Care Team Providers Care Sectional Belt Mold Assembler Name Role Phone Hilario ANDRADE MD, Shiva Kebede Primary Care Provider [phone] Reason for Visit * Reason Onset Date Comments Follow Up 05/19/2023 Encounter Details Date Type Department Care Team (Late st Contact Info) Description 05/19/2023 Telephone Orthopaedics, [facility] [address] [place] [address] Forrest Davidson, DO [address] [facility] [place] [address] Follow Up Allergies Active Allergy Reactions Criticality [...] (5mg) ALL OTHER EVENINGS OR DIRECTED BY [facility]. 105 Tablet 3 07/18/2022 Active [...] right 05/11/2023 Alcohol abuse 05/11/2023 Atherosclerosis of [place] co ronary artery without angina pectoris 09/10/2022 [...] Resolved Date Atherosclerotic heart diseas e of [place] coronary artery with other forms of angina [...] mRNA, LNP-s, No Pre serve, 2-Dose Series ([employer] 05/16/2021,09/23/2020,08/26/2020 Covid-19, Mrna, Lnp-s, Pf, B ivalent, [...] encounter Miscellaneous Notes * Telephone Encounter - Aida Morin RN - 05/19/2023 9:59 AM EDT Phone call to [facility]. They have been in contact with the patient. The nurse saw her Thursday, there was also a PRN visit over the weekend to change the dressing. Providers attempted to call the patient yesterday and today with no answer. They would like the blood work ordered on DC to be drawn. [facility] states the patient has a aline on the phone; every incoming call goes to voice mail. They will send a nurse to the patient's home today to draw the ordered labs (CBC with Diff and PT/INR). Requested the nurse ask the patient to call the clinic to talk with the provider. documented in this encounter Plan of Treatment Upcoming Encounters Date Type Department Care Team (Late st Contact Info) Description 05/20/2023 6:15 PM EDT Anticoagulation Pharmacy Call Center [address] [facility] [place] [address] [facility], [facility] 58 60 [facility] [place] [address] 05/21/2023 1:00 PM EDT Office Visit Orthopaedics [facility] 132 [facility] [place] [address] Forrest Davidson, 132 [facility] [place] [address] 09/30/2023 9:20 AM EDT Office Visit Family Practice [facility] [address] [place] [address] [address] Shiva Rich III, MD 200 [facility] [place] [address] 10/01/2023 3:15 PM EDT Office Visit Hematology/Oncology [facility] [place] [address] [place] [address] [address] Efraín Leone MD 200 [facility] [place] [address] 11/12/2023 11:20 AM EDT Office Visit Dermatology [facility] [address] [place] [address] [address] Margarita Figueredo PA-C 200 [facility] [place] [phone] 02/25/2024 9:30 AM EDT Imaging Radiology [facility] 1st [facility] [address] [place] [address] 04/21/2024 10:30 AM EDT [facility] [address] [place] [phone] Viktoriya Whtie CRNP [address] [place] [address] Scheduled Procedures Name Priority Associated Diagnoses Date/Ti [...] this encounter Medical Devices Implanted Type Area Rotary Slicing Machine Operator Device Identifier Shelf Expiration Date Model / Serial / Lot Knee X3 Ins Pos Cs Sz4 11 - Sn/A - [id number] Implanted:Qty: 1 on 05/11/2023 by Forrest Davidson, DO at OR [facility] Right: Knee FRANNIE : ORTHOPAEDICS 10/16/2027 [...] Advance Directives occurred with: Patient Care Teams Sectional Belt Mold Assembler Relationship Specialty Start Date End Date Shiva Rich III, MD [address] [place] [address] PCP - General Family Medicine 09/10/18 documented as of this encounter
--- OUTSIDE RECORDS SUMMARY | 2023-07-14 14:41 | External Medical Summary | Summary of Care ---
Author Name Unknown Organization [facility] Address [address] [facility] [place] [address] Phone [phone] Care Team Providers Care Band Scroll Saw Operator Name Role Phone Hilario ANDRADE MD, Shiva Kebede Primary Care Provider [phone] Reason for Visit * Reason Comments Dosage Adjustment Via Phone (anticoag Cl inic) Encounter Details Date Type Department Care Team (Latest Contact Info) Description 05/13/2023 6:45 AM EDT Anticoagulation Pharmacy Call Center [phone] [place] [address] [facility], [facility] 58 60 [facility] [place] [address] Paroxysmal atrial fibrillation (HCC)* Allergies Active Allergy Reactions Criticality Noted Date Comments Bee Venom Edema Other 01/10/2016 Lisinopril Cough 09/04/2016 documented as of this encounter (statuses as of 05/13/2023) Medications Medication Sig Dispensed Refills Start Date [...] the morning. 90 Tablet 3 05/09/2023 Active oxyCODONE-Acetaminoph en 5-325 MG Oral Tablet (Percocet) Take 1 Tablet by mouth every 4 hours as needed for Pain, Severe. 30 Tablet 0 05/12/2023 Active CPAP every night at bedtime. 0 Active Enoxaparin Sodium 100 MG/ML Injection Solution Prefilled Syringe (Lovenox) Inject 100 mg under the skin in the morning and 100 mg before bedtime. Do all this for 7 days. 14 mL 0 05/12/2023 05/19/2023 Active Sennosides 8.6 MG Oral Tablet (Senokot) Take 2 Tablets by mouth in the morning. 140 Tablet 0 05/13/2023 Active documented as of this encounter (statuses as of 05/13/2023) Active Problems Problem Noted Date Diagnosed Date Postoperative anemia due to acute blood loss S/P total knee arthroplasty, right 05/11/2023 Alcohol abuse 05/11/2023 Atherosclerosis of [place] co ronary artery without angina [...] as of this encounter (statuses as of 05/13/2023) Resolved Problems Problem Noted Date Diagnosed Date Resolved Date Atherosclerotic heart diseas e of [place] coronary artery with other forms [...] as of this encounter (statuses as of 05/13/2023) Immunizations Name Administration Dates Next Due COVID-19 mRNA, LNP-s, No Pre serve, 2-Dose Series ([employer]) 05/16/2021,09/23/2020,08/26/2020 Covid-19, Mrna, Lnp-s, Pf, B ivalent, [...] this encounter Progress Notes * Nohelia Cortes [facility] - 05/13/2023 12:02 PM EDT Medication Therapy Disease Management - Anticoagulation Patient: Nenita Kebede Bernadette | : 1955 Subjective Contacts Type Contact Phone/Fax 05/13/2023 12:23 PM EDT Phone (Outgoing) Nenita Fleming Delio (Self) [phone] (M) Spoke to Patient Patient-Reported Symptoms: Patient Findings Positives: Hospital admission Comments: Pt discharged to home (with [facility]) after TKA. INR drawn on 05/12 1.1. Noted Hgb 8.8 PT received the following directions at discharge: Continue Enoxaparin 100mg twice daily until instructed to stop. 05/12 Take 1 tablets = 5 mg 05/13 Take 1 tablets = 5 mg 05/14 Take 1 tablets = 5 mg 05/15 Take 1.5 tablets = 7.5 mg 05/16 Take 1 tablets = 5 mg Advised bolus dose today and tomorrow to increase INR. PT did not inject Lovenox last night. Pt will inject twice today and tomorrow and Fri AM only. Pt states she is not able to get to lab and would prefer to have HH draw INRs during recovery. Objective Current Warfarin Dose As of 05/13/2023 Warfarin maintenance plan: 7.5 mg (5 mg x 1.5) every Fri; 5 mg (5 mg x 1) all other days INR Result As of 05/13/2023 INR goal: 2.0-3.0 INR used for dosing: No new INR was available at the time of this encounter. Assessment & Plan Warfarin Plan As of 05/13/2023 Full warfarin instructions: 05/13: 10 mg; 05/14: 7.5 mg; Otherwise 7.5 mg every Fri; 5 mg all otherdays Next INR check: 05/20/2023 Repeat PT/INR in 1 week(s) - check CBC since Hgb 8/8 at d/c Weekly dose: not changed Additional Dosing Information: Description Temp: [facility] TKA 05/12- weekly checks x 4 weeks [facility]on Casass- pt prefers Thurs AMIODARONE started 04/28/22 Nohelia Cortes RPh Clinical Pharmacist 05/13/2023, 12:10 PM documented in this encounter Plan of Treatment Upcoming Encounters Date Type Department Care Team (Late st Contact Info) Description 05/21/2023 1:00 PM EDT Office Visit Orthopaedics [facility] [address] [place] [address] Forrest Davidson, 132 [place] [address] 09/30/2023 9:20 AM EDT Office Visit Family Practice [facility] [address] [place] [address] Shiva Rich III, MD 200 [facility] [place] [address] 10/01/2023 3:15 PM EDT Office Visit Hematology/Oncology [facility] [address] [place] [address] Efraín Leone MD 200 [place] [address] 11/12/2023 11:20 AM EDT Office Visit Dermatology [facility] [address] [place] [address] Margarita Figueredo PA-C 200 [facility] [place] [phone] 02/25/2024 9:30 AM EDT Imaging Radiology [address] 132 [facility] [place] [address] 04/21/2024 10:30 AM EDT Office Visit Sleep Disorders Ctr [facility] 132 [facility] [place] [phone] Viktoriya White CRNP 132 [facility] [place] [address] Scheduled Procedures Name Priority Associated Diagnoses Date/Ti [...] this encounter Medical Devices Implanted Type Area Community Youth Secretary Device Identifier Shelf Expiration Date Model / Serial / Lot Knee X3 Ins Pos Cs Sz4 11 - Sn/A - [id number] Implanted:Qty: 1 on 05/11/2023 by Forrest Davidson, at OR [facility] Right: Knee [employer]ANNIE : ORTHOPAEDICS 10/16/2027 [...] Advance Directives occurred with: Patient Care Teams Band Scroll Saw Operator Relationship Specialty Start Date End Date Shiva Rich III, MD [address] [place] [address] PCP - General Family Medicine 09/10/18 documented as of this encounter"
--- OUTSIDE RECORDS SUMMARY | 2023-07-14 14:41 | External Medical Summary | Summary of Care ---
Author Name Unknown Organization [facility] Address [address] [facility] [place] [address] Phone [phone] Care Team Providers Care Hedge Fund Principal Name Role Phone Hilario ANDRADE MD, Collette Kebede Primary Care Provider [phone] Reason for Referral * Evaluate & Treat - Unlimited Visits (Within 3 days (urgent)) - Authorized Specialty Diagnoses / Procedures Referred By Andrea cochran Referred To Contact HOME CARE / Home Care Diagnoses S/P total knee arthroplasty, right Postoperative anemia due to acute blood loss Forrest Davidson, DO [address] [place] [address] Referral ID Status Reason Start Date Expiration Date Visits Requested Visits Authorized [id number] Authorized Specialty Services Required 3 [id number] Question Answer Referral Priority Within 3 days (urgent) Where should this appointment be scheduled? Alyse Comments Documentation of [id number] Encounter Addendum Patient Name: Nenita Whitman I certify that this patient is under my care and that I, or a nurse practitioner or physician's assistant professor of education working with me, had a [id number] encounter that meets the physician [id number] encounter requirements with this patient on: 05/11/2023 The encounter with the patient was in whole, or in part, for the following medical condition, which is the primary reason for home health care (List medical condition): Convalescence from surgery I certify that, based on my findings, the following services are medically necessary home health services: Physical Therapy; Nursing To provide the following care/treatments: (All hospitalists not following the patient after discharge should complete this section): Initiation of postoperative rehabilitation Primary Care Physician to follow home care plan of care after discharge: Lety My clinical findings support the need for the above services because: Impaired mobility; recent surgery Further, I certify that my clinical findings support that this patient is homebound (i.e. Absences from home require considerable and taxing effort and are for medical reasons or taoist services or infrequently or of short duration when for other reason) because: Impaired mobility; recent surgery Physician Signature: Date of Signature: Physician Printed Name: Forrest Davidson DO Discharge Order Reason for Visit * Auth/Cert Specialty Diagnoses / Procedures Referred By Andrea cochran Referred To Contact Diagnoses Knee osteoarthritis Knee osteoarthritis [M17.9] Procedures ARTHROPLASTY KNEE TOTAL ROBOTIC ARTHROPLASTY KNEE TOTAL Referral ID Status Reason Start Date Expiration Date Visits Re quested Visits Authorized [id number] Encounter Details Date Type Department Care Team (Latest Contact Info) Description 05/11/2023 11:32 AM EDT - 05/12/2023 4:11 PM EDT Hospital Encounter [facility] 6th Floor [address] [facility] [place] [address] Forrest Davidson DO [address] [place] [address] Pt Handout (on AVS) Discharge Disposition: Home with Services Allergies Active [...] 1 Tablet before bedtime. 0 2 Active Amiodarone HCl 200 MG Oral Tablet (Cordarone) Take by mouth 1 Tablet in the morning. 34 Tablet 11 2 Active Solifenacin Succinate 5 MG Oral Tablet (VESIcare) Take by mouth 1 Tablet in the morning. 30 Tablet 12 2 Active Atorvastatin Calcium 80 MG Oral Tablet (Lipitor) TAKE 1 TABLET BY MOUTH EVERY DAY 90 Tablet 3 2 Active Warfarin Sodium 5 MG Oral Tablet (Coumadin)Indication s:Recent cerebrovascular accident (CVA),Paroxysmal atrial fibrillation (HCC) TAKE 1 1/2 TABLETS (7.5mg) BY MOUTH FRIDAYS AND 1 TABLET (5mg) ALL OTHER EVENINGS OR DIRECTED BY [facility]. 105 Tablet 3 2 Active [...] the morning. 34 Tablet 11 3 Active Metoprolol Succinate ER 25 MG Oral Tablet Extended Release 24 Hour (toPROL XL)Indications:Parox ysmal atrial fibrillation (HCC) Take 1 Tablet by mouth in the morning. 90 Tablet 3 3 Active oxyCODONE-Acetaminop hen 5-325 MG Oral Tablet (Percocet) Take 1 Tablet by mouth every 4 hours as needed for Pain, Severe. 30 Tablet 0 3 Active CPAP every night at bedtime. 0 Active Enoxaparin Sodium 100 MG/ML Injection Solution Prefilled Syringe (Lovenox) Inject 100 mg under the skin in the morning and 100 mg before bedtime. Do all this for 7 days. 14 mL 0 3 05/19/20 23 Active Sennosides 8.6 MG Oral Tablet (Senokot) Take 2 Tablets by mouth in the morning. 140 Tablet 0 3 Active metFORMIN HCl 500 MG Oral Tablet (Glucophage) TAKE 2 TABLETS BY MOUTH TWO TIMES DAILY WITH MORNING AND EVENING MEALS 360 Tablet 3 2 05/01/20 23 Discontinued Metoprolol Succinate ER 25 MG Oral Tablet Extended Release 24 Hour (toPROL XL)Indications:Parox ysmal atrial fibrillation (HCC) Take 0.5 Tablets (12.5 mg) by mouth in the morning and 0.5 Tablets (12.5 mg) before bedtime. 30 Tablet 5 2 05/09/20 23 Discontinued Enoxaparin Sodium 100 MG/ML Injection Solution Prefilled Syringe (Lovenox)Indications :Paroxysmal atrial fibrillation (HCC),Recent cerebrovascular accident (CVA) Inject 100 mg under the skin in the morning and 100 mg before bedtime. As instructed by the [facility]. 10 mL 0 3 05/12/20 23 Discontinued documented as of this encounter (statuses as of 05/13/2023) Active Problems Problem Noted Date Diagnosed Date Postoperative anemia due to acute blood loss S/P total knee arthroplasty, right 05/11/2023 Alcohol abuse 05/11/2023 Atherosclerosis of [place] ronary artery without angina pectoris [...] Resolved Date Atherosclerotic heart diseas e of [place] coronary artery with other forms of [...] mRNA, LNP-s, No Pre serve, 2-Dose Series ([place]) 05/16/2021,09/23/2020,08/26/2020 Covid-19, Mrna, Lnp-s, Pf, B ivalent, [...] Sign Reading Time Taken Comments Blood Pressure 178/64 05/12/2023 11:00 AM EDT Pulse 51 05/12/2023 11:00 AM EDT Temperature 35.4 C (95.7 F) 05/12/2023 11:00 AM E DT Respiratory Rate 16 05/12/2023 11:00 AM EDT Oxygen Saturation 97% 05/12/2023 11:00 AM EDT Inhaled Oxygen Concentration - - Weight 94.3 kg (208 lb) 05/11/2023 11:57 AM EDT Height 162.6 cm (5' 4.02") 05/11/2023 11:57 AM E DT Body Mass Index 35.69 05/11/2023 11:57 AM EDT documented in this encounter Functional Status Functional [...] No 05/11/2023 documented as of this encounter Discharge Summaries * Balta Hyde PA-C - 05/12/2023 4:11 PM EDT [facility] [address] Admission Date: 05/11/2023 Discharge Date: 05/12/2023 DISCHARGE DIAGNOSES: Active Hospital Problems Diagnosis *Principal Diagnosis - S/P total knee arthroplasty, right Postoperative anemia due to acute blood loss Alcohol abuse Body mass index (BMI) of 40.0 to 44.9 in adult (HCC) SALVADOR on CPAP Dyslipidemia, goal LDL below 70 Type 2 diabetes mellitus without complications (HCC) Paroxysmal atrial fibrillation (HCC) Essential hypertension with goal blood pressure less than 140/90 Resolved Hospital Problems No resolved problems to display. Other Significant Diagnoses: none CONDITION ON DISCHARGE: stable Cognition: normal DISPOSITION ON DISCHARGE: home FOLLOW-UP: Future Appointments Appt Date/Time Provider Department 05/13/2023 6:45 AM [facility] 05/21/2023 1:00 PM Forrest Davidson DO Orthopaedics [facility] 09/30/2023 9:20 AM Collette Mello III, MD Family Practice [facility] 10/01/2023 3:15 PM Efraín Leone MD Hematology/Oncology [facility] 11/12/2023 11:20 AM Margarita Figueredo PA-C Dermatology [facility] 02/25/2024 9:30 AM [id number] [facility] 10:30 AM [facility] Appointments: follow up with Dr. Davidson as previously scheduled. Outpatient testing already scheduled: CBC with differential. PT INR. MEDICATIONS ON DISCHARGE: MEDICATION UPDATES AT DISCHARGE START taking these medications INSTRUCTIONS oxyCODONE-acetaminophen 5-325 mg per tab Commonly known as: Percocet Notes to patient: Narcotic pain medication Take 1 Tablet by mouth every 4 hours as needed for Pain, Severe. senna Tablet Commonly known as: Senokot Start taking on: May 13, 2023 Notes to patient: Stool softener Take 2 Tablets by mouth in the morning. CHANGE how you take these medications INSTRUCTIONS Enoxaparin 100 MG/ML injection Commonly known as: Lovenox What changed: additional instructions Notes to patient: Helps prevent blood clots Inject 100 mg under the skin in the morning and 100 mg before bedtime. Do all this for 7 days. CONTINUE taking these medications INSTRUCTIONS amiodarone 200 MG Tablet Commonly known as: Cordarone Notes to patient: Used to restore normal heart rhythm and maintain a regular steady heartbeat. slows down overactive electric signals in your heart. Take by mouth 1 Tablet in the morning. amLODIPine 5 MG Tablet Commonly known as: Norvasc Notes to patient: Blood pressure Take 1 Tablet by mouth in the morning. aspirin enteric coated 81 MG Tbec Notes to patient: Heart health, helps lower the risk of heart attack and stroke Take by mouth 1 Tablet in the morning. atorvaSTATin 80 MG Tablet Commonly known as: Lipitor Notes to patient: Lowers cholesterol TAKE 1 TABLET BY MOUTH EVERY DAY CPAP every night at bedtime. DULoxetine 60 MG Cpep Commonly known as: Cymbalta Notes to patient: Mood enhancement TAKE 2 CAPSULES BY MOUTH EVERY MORNING Ezetimibe 10 MG Tablet Commonly known as: Zetia Notes to patient: - lowers high fat levels in the blood TAKE 1 TABLET BY MOUTH EVERY DAY Ferrous Sulfate 325 (65 FE) MG Tablet Commonly known as: Feosol Notes to patient: Iron supplement Take 1 Tablet by mouth every other day. Furosemide 40 MG Tablet Commonly known as: Lasix Notes to patient: - used to reduce extra fluid in the body (edema) caused by conditions such as heart failure, liver disease, and kidney disease. TAKE 1 TABLET BY MOUTH EVERY MORNING losartan 100 MG Tablet Commonly known as: Cozaar Notes to patient: - used to treat high blood pressure (hypertension) It works by relaxing blood vessels so that blood can flow more easily. Take 1 Tablet by mouth in the morning. magnesium chloride ER 64 MG Tbec Commonly known as: Mag-64 Notes to patient: supplement Take 1 Tablet by mouth in the morning and 1 Tablet before bedtime. metFORMIN 500 MG Tablet Commonly known as: Glucophage Notes to patient: diabetes TAKE 2 TABLETS BY MOUTH TWO TIMES DAILY WITH MORNING AND EVENING MEALS. metoprolol succinate XL 25 MG Tb24 Commonly known as: toPROL XL Notes to patient: beta aline that affects the heart and blood circulation to lower heart rate, blood pressure and the strain on the heart Take 1 Tablet by mouth in the morning. Multi Vitamin Daily Tabs Notes to patient: Vitamin supplement Myrbetriq 50 MG Tb24 Generic drug: Mirabegron ER Notes to patient: - used to treat. overactive bladder (OAB) with symptoms of urgency, frequency and leakage. Take 1 Tablet by mouth in the morning. oxygen Gas 3 LPM bled through CPAP 14 cwp Solifenacin Succinate 5 MG Tablet Commonly known as: VESIcare Notes to patient: - used to treat an overactive bladder. relaxing the bladder muscles in to improveyour ability to control your urination. Take by mouth 1 Tablet in the morning. vitamin b 12 1000 MCG Tabs Commonly known as: Cyanocobalamin Notes to patient: Vitamin supplement Take 1 Tablet by mouth in the morning. Warfarin Sodium 5 MG Tablet Commonly known as: Coumadin Notes to patient: blood thinner used to treat or prevent blood clots Take as directed. If you are unsure how to take this medication, talk to your nurse or doctor. Original instructions: TAKE 1 1/2 TABLETS (7.5mg) BY MOUTH FRIDAYS AND 1 TABLET (5mg) ALL OTHER EVENINGS OR DIRECTED BY ANTICOAG CLINIC. STOP taking these medications Diclofenac 1 % Gel Commonly known as: Voltaren ALLERGIES: Bee venom and Lisinopril INSTRUCTIONS: Activity: Do not shower until seen at your 1st postoperative appointment. Sponge bathing recommended. Use a walker or cane at all times or as instructed by your therapist. Avoid sudden movements. Weightbearing as tolerated. Apply ice to your knee intermittently 20 minutes every hour for pain/swelling. Do not drive until cleared by physician. Home exercises - as instructed by physical therapist/home therapy. Diet: normal diet Code status (this admission): Full Code Discussion of adv directives occurred with - adult: Patient Indwelling devices: none ADMISSION HISTORY & PHYSICAL EXAM (focused): 67-year-old female previously presented for evaluation of bilateral knee pain, right greater than left. She localizes pain to the medial aspect and has reported associated swelling and stiffness. Hersymptoms have been present for many years but becoming progressively worse over the past few years.She is undergone previous treatment with minimal benefit. This has included activity modification, oral medications, steroid injections as well as viscosupplementation. She has reported start-up pain. She also has been using a cane for assistance. Given her severe osteoarthritis of the right knee, failed conservative treatment and progressive symptoms, we discussed joint replacement, specificallyrobotic assisted surgery. She was in agreement to proceed. HOSPITAL COURSE (focused): The patient was admitted for postoperative medical management, initiation of rehabilitation and pain control following robotic assisted total right knee replacement. Postoperative antibiotics were ordered per protocol and discontinued after 24 hours. Postoperative pain was well controlled with a com bination of a spinal anesthetic, regional nerve block, IV Toradol and Oxycodone. DVT prophylaxis was initiated immediately postoperative with use of NICKIE hose and SCDs. Aspirin 81 mg twice daily dose was maintained and Lovenox bridge to Coumadin was started on postoperative day 1. The patient remained weightbearing as tolerated. Physical and occupational therapy was initiated the day of surgery. The patient progressed well with regards to rehabilitation. Vitals remained stable during the hospital stay. The dressing remained clean, dry and intact without evidence of drainage or signs of infection. Postoperative H&H was diminished at 8.8 but stable and asymptomatic. The patient had an uneventful hospital stay and was deemed appropriate by Medicine Service for discharge to home health on postoperative day 1. Operations & Procedures: Right total knee arthroplasty Complications: Postoperative anemia - asymptomatic. SIGNIFICANT RESULTS: Vital Signs (last recorded): Most Recent Systolic BP: 178 mmHg (05/12/23 1100) Most Recent Diastolic BP: 64 mmHg (05/12/23 1100) Pulse: 51 (05/12/23 1100) Resp: 16 (05/12/23 1100) Most Recent Temperature: 35.39 C (05/12/23 1100) Weight: 94.3 kg (208 lb) (05/11/23 1157) SpO2: 97 % (05/12/23 1100) O2 flow rate: 3 L/MIN (05/12/23 0648) Labs: COAGS: PT, INR (see below for three most recent values): Lab Results Component Value Date/Time INR 1.1 05/12/2023 04:08 AM INR 1.0 05/11/2023 12:19 PM INR 2.3 (H) 05/04/2023 10:31 AM INR 2.92 (H) 08/03/2020 08:36 AM INR 2.72 (H) 06/06/2020 10:45 AM INR 2.57 (H) 04/25/2020 09:45 AM BLOOD COUNT: WBC, Hgb, Platelets (see below for most recent value): Lab Results Component Value Date/Time WBC 9.70 05/12/2023 04:08 AM WBC 6.93 05/04/2017 07:35 AM HGB 8.8 (L) 05/12/2023 04:08 AM HGB 13.4 05/04/2017 07:35 AM PLT 229 05/12/2023 04:08 AM PLT 257 05/04/2017 07:35 AM HEMOGLOBIN: Hgb (see below for last three most recent values): Lab Results Component Value Date/Time HGB 8.8 (L) 05/12/2023 04:08 AM HGB 10.2 (L) 05/11/2023 05:22 PM HGB 12.2 05/04/2023 10:28 AM HGB 13.4 05/04/2017 07:35 AM HGB 13.5 04/23/2017 07:21 AM HGB 13.3 12/10/2016 12:00 AM HGB 14.5 09/17/2016 02:49 PM Imaging (focused): Postoperative images of the right knee demonstrated a stable total right knee arthroplasty prosthesis without evidence of hardware complication or loosening. CONSULTS ORDERED: ADULT PHYSICAL THERAPY CONSULT IP ADULT OCCUPATIONAL THERAPY CONSULT IP ANTI-COAGULATION CONSULT IP ANTI-COAGULATION CONSULT IP CARE MANAGEMENT CONSULT IP GENERAL INTERNAL MEDICINE CONSULT IP BLOOD MANAGEMENT CONSULT IP REFERRING PHYSICIAN: Ref: COLLETTE MELLO III[[id number]] [address] [place] [address] (office) [phone] (fax) PRIMARY CARE PROVIDER: PCP: Collette Mello III, MD [address] [facility] [address] [place] [address] (office) [phone] (fax) Note: To contact a physician responsible for this patients hospital care, please call [facility] [phone]. documented in this encounter Discharge Instructions * Discharge Instr - AVS* Forrest Davidson DO - 05/11/2023 5:03 PM EDT Images from the original note were not included. Discharge Date: 05/12/2023 You may call Doctor Davidson of the Department of Orthopaedic Surgery at [facility]: [phone] during business hours. For after hours emergencies, call [place]: [phone] and have the Orthopaedic Surgeon television news anchor paged. The information below provides you with instructions and a list of medications you need to take following your discharge from the hospital. If you have any questions, please ask before leaving. Please carry these papers with you to your next appointment. If you have questions, you can reach us at the numbers above. Brief summary of your inpatient care: Right total knee replacement. Following hip or knee replacement surgery, the [employer] recommends that preventative antibiotics be considered prior to procedures which could introduce bacteria into your bloodstream. This includes procedures such as dental, oral, respiratory tract, or esophageal procedures. Your doctors during this hospitalization included: Dr. Davidson Diet: Resume Pre-op diet Activity: Do not shower until seen at your 1st postoperative appointment. Sponge bathing recommended. Use a walker or cane at all times or as instructed by your therapist. Avoid sudden movements. Weightbearing as tolerated. Apply ice to your knee intermittently 20 minutes every hour for pain/swelling. Home exercises - as instructed by physical therapist/home therapy. Driving: Do not drive. Date you may return to work or school: To be determined by your physician. See your primary care physician (Collette Mello III, MD) as needed. Special Instructions: TOTAL KNEE REPLACEMENT EXERCISE PROGRAM: Important for optimal results and function of your Knee Replacement. Recommend two (2) separate exercise sessions performed by you at home daily. Continue program taught by Physical Therapy: Slowly and carefully. Use walker for safety until strength of thigh muscles allows safe use of cane. In addition to above exercises: ADD two (2) STRETCHING maneuvers described below: HAMSTRING (BACK OF KNEE) STRETCHING: Sit at edge of chair with leg extended with heel on floor. Place hands just above knee: Lean forward at waist, keeping knee straight. Stretch/pulling sensation will be felt in low back, behind thigh, knee and calf. Hold for 60 seconds: Do 5 repetitions, resting a few seconds between each 1 minute stretch. KNEE FLEXION (BENDING) QUADRICEPS STRETCHING: Sit at edge of chair. Place opposite foot just above the ankle of the leg that had surgery. Slowly pull ankle back as far as possible, bending knee until it feels tight. Then stretch knee back even further by pushing/pulling back with good (non-operative) leg. Hold for 60 seconds: Do 5 repetitions, resting a few seconds between each 1 minute stretch. MEASURES TO REDUCE SWELLING: Lie down 30 minutes every 2 hours (example: 10:00AM, Noon, 2:00PM, 4:00PM, etc.). Place 2 or 3 pillows under your Achilles tendon/ankle area. Ice pack wrap around knee (firmly): 30 minutes every 2 hours (example: 10:00AM, Noon, 2:00PM, 4:00PM, etc.). MEASURES TO REDUCE BLOOD CLOT RISK: Especially important during first month. COUMADIN MEDICATION: (used 1 month postsurgery). Take as prescribed. You will have blood tests to monitor your 'dosage level.' Coumadin Clinic staff may call you to adjust Coumadin dose. LOVENOX MEDICATION: (used 1 month postsurgery). Take as prescribed. OPERATIVE SITE DRESSING: Incision dressing (bandage): Maintain dressing for 1 week. This may be removed by home nursing/therapy or at your 1st postoperative visit. Shower: Sponge bathe only A small amount blood stain is normal and is expected. However, please call the office if a significant amount of fluid builds beneath the dressing, or if you have any dressing/bandage concerns. You can expect bruising and swelling up and down thigh and leg: Commonly seen as far as ankle. Thisis normal. FOLLOW-UP INSTRUCTIONS: Our office will call you to arrange a post-operative follow-up visit usually within 7 to 10 days. If questions or concerns arise call sooner at: Jerson Gambino: [phone]. Contact the Orthopaedic office at [place]: [phone] if there is any redness, discharge or change around your surgical site. [facility] Instructions: To get started with [facility], you will receive a welcome email approximately 30 days prior to surgery. The [employer] email subject will be, "Access Dr. Davidson's Online Care Program." You may access [facility] in two ways: Use the link within the email to login to [facility] using your [employer] login credentials. Use [email or web address] to access [facility] from your computer or tablet. If you do not have a [employer] account, the link within the email will prompt you to create one. Follow the instructions and then log into your new [employer] account. When logged into your [facility] account, you will be brought directly to your daily To Do List. If you have trouble locating the welcome email from [facility] or navigating the [facility] platform, please contact [email or web address]. * Pharmacy Instr - AVS* Anabelle Huffman [facility] - 05/12/2023 3:08 PM EDT Warfarin dosing instructions for after discharge: You should have a prescription for Warfarin 5 mg tablets. Please take the following doses of warfarin by mouth after Discharge: Date Dose using warfarin 5 mg Tablets 05/12 Take 1 tablets = 5 mg 05/13 Take 1 tablets = 5 mg 05/14 Take 1 tablets = 5 mg 05/15 Take 1.5 tablets = 7.5 mg 05/16 Take 1 tablets = 5 mg Your dose of ENOXAPARIN is 100 mg subcutaneous injection twice daily. You should use this medication along with warfarin until you are instructed to stop. The anticoagulation clinic pharmacist will provide you with further dosing and appointment instructions. If you have any questions regarding your anticoagulation therapy, please Contact Anticoagulation Clinic at [phone] or . Please share the following information with your provider: You were continued on WARFARIN for Indication for Anticoagulation: Atrial fibrillation/flutter, Other (please specify). This is an Existing diagnosis. Your Target INR: 2.0-3.0(Prevention of systemic embolism) . Your Anticipated Duration of Therapy: Lifetime . Because you have been placed on a blood thinner, your therapy will need to be monitored on a regular basis. You will have your Anticoagulation Managed By: Anticoagulation Clinic . While you were in the hospital, you medication doses received and your corresponding labs were: INR Date/Time Value Ref Range Status 05/12/2023 04:08 AM 1.1 0.8 - 1.2 Final 05/11/2023 12:19 PM 1.0 0.8 - 1.2 Final HGB Date/Time Value Ref Range Status 05/12/2023 04:08 AM 8.8 (L) 12.0 - 15.3 g/dL Final HCT Date/Time Value Ref Range Status 05/12/2023 04:08 AM 28.1 (L) 36.0 - 45.2 % Final PLT Date/Time Value Ref Range Status 05/12/2023 04:08 AM 229 140 - 400 K/uL Final Warfarin Administrations (last 720 hours) Date/Time Action Medication Dose 05/11/231944 Given Warfarin Sodium (Coumadin) tab 10 mg 10 mg * [facility] - AVS* Lorraine Rodrigez RN - 05/12/2023 2:32 PM EDT [facility] will see you on 05/13 and will call you to set up a time. If you have [facility], you should have a visit within 48 hours. documented in this encounter Progress Notes * Anabelle Huffman RPh - 05/12/2023 3:09 PM EDT PHARMACY DISCHARGE MEDICATION RECONCILIATION REVIEW [address] [address] Name: Nenita Whitman Location: [facility] 6B-6019/D Date: 05/12/2023 Time: 3:09 PM This discharge medication reconciliation was reviewed by a pharmacist and no corrections or interventions were required. * Kimberly Avila PA-C - 05/12/2023 8:26 AM EDT Images from the original note were not included. [facility] 6B-6019/D Clinical Summary: Nenita Whitman is a 67 year old female with a PMHx of DM2, HTN, pAF, SALVADOR on CPAP, HLD, obesity admitted s/p right total knee replacement 05/[address] Davidson INTERVAL HISTORY: POD#1. Hgb dropped to 8.. Feeling well. Denies fever, chills, cough, SOB, nausea, diarrhea, dysuria, erythema of RLE. Nose is itchy and running. Very motivated to get home today. Objective Physical Exam Most Recent Vital Signs: BP: 188 mmHg/73 mmHg (05/12/23647) Pulse: 51 (05/12/23803) Temp: 35.5 C (05/12/23647) Resp: 16 (05/12/23647) SpO2: 97 % (05/12/23803) Physical Exam Vitals and nursing note reviewed. Constitutional: General: She is not in acute distress. Appearance: She is not ill-appearing or diaphoretic. HENT: Head: Normocephalic and atraumatic. Nose: Rhinorrhea (clear) present. Eyes: Extraocular Movements: Extraocular movements intact. Pupils: Pupils are equal, round, and reactive to light. Cardiovascular: Rate and Rhythm: Normal rate and regular rhythm. Pulses: Dorsalis pedis pulses are 2+ on the right side and 2+ on the left side. Heart sounds: Murmur heard. Pulmonary: Effort: Pulmonary effort is normal. No respiratory distress. Breath sounds: No wheezing, rhonchi or rales. Abdominal: General: Abdomen is flat. Bowel sounds are normal. Palpations: Abdomen is soft. Tenderness: There is no abdominal tenderness. Musculoskeletal: General: No swelling or deformity. Right knee: Swelling and ecchymosis present. No erythema. Normal range of motion. Right lower le+ Edema present. Left lower leg: No edema. Skin: General: Skin is warm and dry. Neurological: General: No focal deficit present. Mental Status: She is alert and oriented to person, place, and time. Psychiatric: Mood and Affect: Mood normal. Thought Content: Thought content normal. Judgment: Judgment normal. Peripheral Line Right Wrist 18 Gauge (Active) Number of days: 1 STUDIES: Encounter Orders Labs and other studies reviewed with pertinent findings noted below: Lab results within last 7 days (see chart for full results) Units 05/12/23 0408 Sodium mmol/L 132* Potassium mmol/L 4.4 Chloride mmol/L 94* CO2 mmol/L 30 BUN mg/dL 16 Creatinine mg/dL 0.8 Lab results within last 7 days (see chart for full results) Units 05/12/23 0408 05/11/23 1722 HGB g/dL 8.8* 10.2* HCT % 28.1* 31.8* WBC K/uL 9.70 -- PLT K/uL 229 -- Assessment and Plan IMPRESSION/PLAN: Principal Problem: S/P total knee arthroplasty, right Active Problems: Essential hypertension with goal blood pressure less than 140/90 Type 2 diabetes mellitus without complications (HCC) Paroxysmal atrial fibrillation (HCC) Dyslipidemia, goal LDL below 70 SALVADOR on CPAP Body mass index (BMI) of 40.0 to 44.9 in adult (HCC) Alcohol abuse Resolved Problems: * No resolved hospital problems. * DIFFERENTIAL AND PLAN: - CPAP with 3L O2 @HS ordered. - Hold home metformin, may resume at discharge - Accuchecks and sliding scale coverage qAC&HS as indicated per protocol. - Resume [employer] lasix - CIWA protocol ordered for possible ETOH withdrawal as patient is a daily ETOH user. So far CIWA =0. - Coumadin and lovenox as per pharmacy. - Check CBC, BMP in AM. - Pain management, surgical site care, activity, diet as per primary service. - Resume all other [employer] medications. - Appreciate recommendations from blood conservation: - Venofer 300mg IVPB daily x 2 days - B12 1mg daily - Folic acid 1mg daily - vitamin daily x 2 months on D/C for ABLA - Add nasal saline for rhinorrhea, nasal congestion PHARMACOLOGIC VTE PROPHYLAXIS: Enoxaparin warfarin check daily dose (PHARMACIST MANAGED) Warfarin Sodium CODE STATUS: Full Code EXPECTED DISCHARGE DATE: No information available Case and plan of care were discussed with Dr. Yao. I spent a total of 25 minutes coordinating, documenting, and providing care for this patient excluding time spent in the performance of separately billed services. Associated attestation - Tiago Yao DO - 05/12/2023 10:33 AM EDT I have reviewed the advanced practitioner documentation and agree. I saw and evaluated the patient on date of service referenced in note patient was moving well. Surgical dressing was dry and intact.Agree with plan as stated. * Kulwant Mckeon [facility] - 05/12/2023 8:04 AM EDT Images from the original note were not included. PHARMACY ANTICOAGULATION WARFARIN (Coumadin) Assessment [facility]-[address] [address] Name: Nenita Whitman Location: [facility] 6B-6019/D Date: 05/12/2023 Time: 8:04 AM Nenita Whitman is a 67 year old female admitted for S/P total knee arthroplasty, right. Pharmacy was consulted for warfarin dosing and monitoring. Anticoagulation Therapy Goals Indication for Anticoagulation: Atrial fibrillation/flutter, Other (please specify) Other please comment: Hx of CVA Anticipated Duration of Therapy: Lifetime Target INR: 2.0-3.0(Prevention of systemic embolism) Risk factors for anticoagulation therapy: Age>65, Renal insufficiency Prior to Admission Management Anticoagulation Managed By: Anticoagulation Clinic Tablet Size/Strength: 5 mg Anticoagulation Regimen: 7.5 mg every Fri; 5 mg all other days Anticoagulation Episode Summary Current INR goal: 2.0-3.0 TTR: 82.7% (1 y) Next INR check: 03/31/2023 INR from last check: No new INR was available at last check Most recent INR: 1.1 (05/12/2023) Weekly max warfarin dose: Target end date: Indefinite INR check location: Preferred lab: Send INR reminders to: Indications Recent cerebrovascular accident (CVA)(Primary)(Resolved) [Z86.73] Paroxysmal atrial fibrillation (HCC) [I48.0] Comments: Anticoagulation Care Providers Provider Role Specialty Phone number Feliberto Diggs DO Cardiovascular Medicine [phone] Labs INR Date/Time Value Ref Range Status 05/12/2023 04:08 AM 1.1 0.8 - 1.2 Final 05/11/2023 12:19 PM 1.0 0.8 - 1.2 Final HGB Date/Time Value Ref Range Status 05/12/2023 04:08 AM 8.8 (L) 12.0 - 15.3 g/dL Final HCT Date/Time Value Ref Range Status 05/12/2023 04:08 AM 28.1 (L) 36.0 - 45.2 % Final PLT Date/Time Value Ref Range Status 05/12/2023 04:08 AM 229 140 - 400 K/uL Final Objective Warfarin Administrations (last 720 hours) Date/Time Action Medication Dose 05/11/231944 Given Warfarin Sodium (Coumadin) tab 10 mg 10 mg Assessment & Plan Assessment Dietary Assessment: Normal/expected PO intake Today's INR : Subtherapeutic Does the patient have any medication interactions: Yes Please comment: amiodarone Are there bleeding concerns with the patient: No Does the patient have any upcoming procedures: No Plan Warfarin Plan: Give Warfarin Specify Warfarin Dose: 7.5 mg by mouth tonight Is the patient receiving a Bridging Agent: Yes Warfarin Patient Education : Not needed Reason Education Not Needed: Follows with [facility] Kulwant Mckeon RPh * Jodie JimenezSay - 05/11/2023 6:23 PM EDT Images from the original note were not included. PHARMACY ANTICOAGULATION WARFARIN (Coumadin) Assessment [facility]-[address] [address] Name: Nenita Whitman Location: [facility] 6B-6019/D Date: 05/11/2023 Time: 6:23 PM Nenita Whitman is a 67 year old female admitted for No Principal Problem: There is no principal problem currently on the Problem List. Please update the Problem List and refresh.. Pharmacy wasconsulted for warfarin dosing and monitoring. Anticoagulation Therapy Goals Indication for Anticoagulation: Atrial fibrillation/flutter, Other (please specify) Other please comment: Hx of CVA Anticipated Duration of Therapy: Lifetime Target INR: 2.0-3.0(Prevention of systemic embolism) Risk factors for anticoagulation therapy: Age>65, Renal insufficiency Prior to Admission Management Anticoagulation Managed By: Anticoagulation Clinic Tablet Size/Strength: 5 mg Anticoagulation Regimen: 7.5 mg every Fri; 5 mg all other days Anticoagulation Episode Summary Current INR goal: 2.0-3.0 TTR: 82.9% (1 y) Next INR check: 03/31/2023 INR from last check: No new INR was available at last check Most recent INR: 1.0 (05/11/2023) Weekly max warfarin dose: Target end date: Indefinite INR check location: Preferred lab: Send INR reminders to: Indications Recent cerebrovascular accident (CVA)(Primary)(Resolved) [Z86.73] Paroxysmal atrial fibrillation (HCC) [I48.0] Comments: Anticoagulation Care Providers Provider Role Specialty Phone number Feliberto Diggs DO Cardiovascular Medicine [phone] Labs INR Date/Time Value Ref Range Status 05/11/2023 12:19 PM 1.0 0.8 - 1.2 Final No results found for: "HGB" No results found for: "HCT" No results found for: "PLT" Objective Warfarin Administrations (last 720 hours) None Assessment & Plan Assessment Dietary Assessment: Normal/expected PO intake Today's INR : Subtherapeutic Does the patient have any medication interactions: Yes Please comment: amiodarone Are there bleeding concerns with the patient: No Does the patient have any upcoming procedures: No Plan Warfarin Plan: Give Warfarin Specify Warfarin Dose: 10mg Is the patient receiving a Bridging Agent: Yes -- 100mg lovenox q12 hour starting 05/11 Warfarin Patient Education : Not needed Reason Education Not Needed: Follows with [facility] Jodie Jimenez RPh documented in this encounter H&P Notes * Forrest Davidson DO - 05/11/2023 12:47 PM EDT HISTORY & PHYSICAL INTERVAL NOTE [facility]-[address] [address] History and Physical Update: Name: Nenita Whitman Location: [facility] Date: 05/11/2023 Time: 12:47 PM DATE OF HISTORY AND PHYSICAL: 04/23/2023 BP: 205 mmHg/86 mmHg (05/11/23 1157) Pulse: 52 (05/11/23 1157) Temp: 37.28 C (05/11/23 1157) Resp: 18 (05/11/23 1157) SpO2: 98 % (05/11/23 1157) Does patient take a beta aline? Yes - medication: Metoprolol Did patient stop anticoagulants? Yes, Aspirin, Coumadin Heart Exam: regular rate and rhythm Lung Exam: clear to auscultation bilaterally Other Pertinent Physical Exam: Examination the right knee reveals tenderness along the medial jointline. Evidence of ecchymosis noted over the upper thigh. No evidence of skin breakdown or wound. Range of motion intact at baseline. Sensation intact. Pulses palpable. I have reviewed the H&P previously performed and examined the patient today. There are no new findings noted. Source Note - Forrest Davidson DO - 04/23/2023 2:12 PM EDT GENERAL HISTORY & PHYSICAL EXAMINATION ORTHOPAEDIC SURGERY - Outpatient H&P Name: Nenita Whitman Date: 04/23/2023 Time: 2:12 PM SUBJECTIVE: Chief complaint: Right knee pain HPI: 67-year-old female previously presented for evaluation of bilateral knee pain, right greater than left. She localizes pain to the medial aspect and has reported associated swelling and stiffness. Her symptoms have been present for many years but becoming progressively worse over the past few years. She is undergone previous treatment with minimal benefit. This has included activity modification, oral medications, steroid injections as well as viscosupplementation. She has reported start-uppain. She also has been using a cane for assistance. Of note she does report a history of atrial fibrillation and internal carotid arterial occlusion treated on Coumadin. During her last evaluation, she has worked towards weight loss and has achieved aBMI of 37.5. She was also recently evaluated by her Heme-Onc physician, Dr. Leone, who is further evaluating anemia. Review of Systems: Constitutional ROS: No fevers, sweats, or chills Cardiovascular ROS: No chest pain Gastrointestinal ROS: No abdominal pain Musculoskeletal/Extremities ROS: Pain, stiffness, swelling Neurologic ROS: No numbness or tingling [...] mg before bedtime. As instructed by the [facility]. 10 mL0 No current facility-administered medications for this visit. 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) 04/20/2017 Per Obesity protocol #1 Dyslipidemia, goal [...] 01/21/2017 Past Surgical History: Procedure Laterality Date COLONOSCOPY, DIAGNOSTIC (RECTUM) 11/12/2016 adenocarcinoma/[facility] COLONOSCOPY, DIAGNOSTIC (RECTUM) 02/16/2018 serrated adenomatous polyp, repeat 1 yr/[facility] COLONOSCOPY, DIAGNOSTIC (RECTUM) 03/16/2019 benign polyps, repeat 2 yrs/[facility] COLONOSCOPY, DIAGNOSTIC (RECTUM) 04/11/2021 normal, repeat 3 yrs / [facility] DENTAL SURGERY PROCEDURE NEC Dental Surgery Procedure wisdom teeth INFORMATION 04/2022 Cardioversion. INFORMATION Part of colon removed. INFORMATION 11/2021 Heart Cath PAYTON FLEX SIGMOID DIAGNOSITIC 11/20/2016 SIGMOIDOSCOPY FLEXIBLE DIAGNOSTIC performed by Declan West MD at ENDOSCOPY [facility] REMOVAL OF OVARY(S) Left REMOVAL OF OVARY(S) FOR TUMOR benign Social History Tobacco Use Smoking status: Never Smokeless tobacco: Never Vaping Use Vaping Use: Never used Substance Use Topics Alcohol use: Yes Comment: moderate scotch is drink of choice - none since 12/2016 Drug use: No Family history: Noncontributory OBJECTIVE: Diagnostic Testing: Updated x-rays to include AP bilateral knee and dedicated lateral and sunrise views right knee wereobtained, viewed and interpreted in the office today demonstrating evidence of severe tricompartmental osteoarthritis most notable within the medial and patellofemoral compartment. [id number] articulation noted. Severe degenerative findings incidentally noted on the left. Vital Signs: There were no vitals taken for this visit. Physical Exam: General appearance - healthy, no acutedistress, comfortable Skin - no edema, ecchymosis or erythema Head - Normocephalic. Eyes - Conjunctivae and [...] non-tender Extremity - no edema Musculoskeletal - examination of the right knee reveals no significant joint effusion. Tenderness to palpation along the medial joint line of moderate to exquisite degree. She does have some degree of lateral joint line tenderness. Overall good range of motion noted consistent with previous evaluation. Collateral stability intact. Pulses palpable. Neuro - sensation intact ASSESSMENT: Primary osteoarthritis of right knee (Primary) - XR KNEE 3 VIEWS Ambulatory dysfunction Preop testing - [facility] PCR Follow Up: Return for Postop. | For: Postop PLAN: We previously discussed her severe degenerative change and plans to pursue joint replacement. She has improved her preoperative function with physical therapy and has also achieved adequate weight loss improving her BMI to 37.5. We once again discussed joint replacement. All questions were answeredher satisfaction. We are awaiting additional preoperative studies. She is currently working with her heme Onc physician regarding anemia. We discussed that her anemic state would need to be optimizedand within the normal range prior to pursuing joint replacement. She has an upcoming appointment with her physician and will discuss this as well as optimization regarding her surgical procedure. Sheis aware that rescheduling may be necessary in order for adequate preoperative optimization. I discussed all clinical and diagnostic findings in detail with the patient as well as all treatment options both conservative and surgical. The patient decided to proceed with surgery given ongoing symptoms despite previous conservative treatment. I discussed all alternatives, risk, benefits and complications of procedure including but not limited to continued pain, stiffness, fracture, pin site irritation, scar tissue formation, bleeding, infection, nerve damage, wound healing complications, hematoma, blood clots, pulmonary embolism, neurovascular injury, instability, limb length discrepancy, possible failure of surgery, need of revision surgery, , unforeseen complications and complications associated with anesthesia. Patient understood all discussions and agreed to proceed. We will go ahead and tentatively schedulea RIGHT total knee arthroplasty; possible robotic assisted procedure her other surgical procedures as indicated pending additional preoperative workup in the upcoming weeks [facility]. This chart was completed in part utilizing [employer] Speech Voice Recognition Software. Grammatical errors, random word insertions, pronoun errors, and incomplete sentences are an occasional consequence of this system due to software limitations, ambient noise, and hardware issues. Any formal questions or concerns about the content, text, or information contained within the body of this dictation should be directly addressed to the provider for clarification. Forrest Davidson DO 04/23/2023 2:12 PM documented in this encounter Consult Notes * Princess Cisneros, OT - 05/12/2023 10:57 AM EDTAssociated Order(s): ADULT OCCUPATIONAL THERAPY CONSULT IP GENERAL EVALUATION - Occupational Therapy [facility]-[address] [address] Name: Nenita Whitman Location: [facility] 6B-6019/D Date: 05/12/2023 Time: 1056 Nenita Whitman is a 67 year old female. Per H&P "67-year-old female previously presented for evaluation of bilateral knee pain, right greater than left. She localizes pain to the medial aspect and has reported associated swelling and stiffness. Her symptoms have been present for many years but becoming progressively worse over the past few years. She is undergone previous treatment with minimal benefit. This has included activity mo dification, oral medications, steroid injections as well as viscosupplementation. She has reported start-up pain. She also has been using a cane for assistance. Of note she does report a history of atrial fibrillation and internal carotid arterial occlusion treated on Coumadin. During her last evaluation, she has worked towards weight loss and has achieved aBMI of 37.5. She was also recently evaluated by her Heme-Onc physician, Dr. Leone, who is further evaluating anemia." Patient Status: SORU (23 hr Surgical Overnight) Insurance: Payor: [employer]box Plan: Money Mover 360 [id number] Product Type: *No Product type* Patient Seen: at bedside, nursing cleared patient for therapy Patient Identified By: Name, ID Band and Date Diagnosis: R TKA (05/12/23 1018) Orders: OT evaluation and treatment (05/12/23 1018) Weight Bearing Status: Weight bearing as tolerated (05/12/23 1018) Precautions: Alarms;Falls;Safety (05/12/23 1018) Past Medical History: Past Medical History: Diagnosis [...] performed by Forrest Davidson DO at OR [facility] COLONOSCOPY, DIAGNOSTIC (RECTUM) 11/12/2016 adenocarcinoma/[facility] COLONOSCOPY, DIAGNOSTIC (RECTUM) 02/16/2018 serrated adenomatous polyp, repeat 1 yr/[facility] COLONOSCOPY, DIAGNOSTIC (RECTUM) 03/16/2019 benign polyps, repeat 2 yrs/[facility] COLONOSCOPY, DIAGNOSTIC (RECTUM) 04/11/2021 normal, repeat 3 yrs / [facility] DENTAL SURGERY PROCEDURE NEC Dental Surgery Procedure wisdom teeth INFORMATION 04/2022 Cardioversion. INFORMATION Part of colon removed. INFORMATION 11/2021 Heart Cath PAYTON FLEX SIGMOID DIAGNOSITIC 11/20/2016 SIGMOIDOSCOPY FLEXIBLE DIAGNOSTIC performed by Declan West MD at [facility]COPY [facility] REMOVAL OF OVARY(S) Left REMOVAL OF OVARY(S) FOR TUMOR benign Social History/Disposition Lives with: Spouse (05/12/23 1018) Assistance available: Yes (05/12/23 1018) Dwelling type: Multi-story home (1st floor setup) (05/12/23 1018) Entry steps: Other - Describe (10 with HR) (05/12/23 1018) Inside steps: None (05/12/23 1018) Bedroom location: 2nd floor (bed brought down for first floor setup) (05/12/23 1018) Bath location: 1st floor full bath;2nd floor full bath (05/12/23 1018) Prior Level of Function Reported by: Patient (05/12/23 1018) Ambulation: Ambulatory with device (05/12/23 1018) Ambulatory Device: Quad cane (05/12/23 1018) Grooming: Independent (05/12/23 1018) Bathing: Independent (05/12/23 1018) Dressing: Independent (05/12/23 1018) Feeding: Independent (05/12/23 1018) Toileting: Independent (05/12/23 1018) Meal Prep: Independent (05/12/23 1018) Homemaking: Independent (05/12/23 1018) Shopping: Independent (05/12/23 1018) Medication Management: Independent (05/12/23 1018) Money Management: Independent (05/12/23 1018) 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 Pain: No complaints of pain Observations Consciousness: Alert (05/12/231017) Orientation: Oriented times 4 (05/12/231017) Cognitive Limitations: (none noted on OT eval) (05/12/231017) Psychosocial: Patient can communicate basic needs;Patient can converse in a social setting (05/12/231017) Sitting posture: Forward head;Rounded shoulders (05/12/231017) Standing posture: Forward head;Rounded shoulders (05/12/231017) Other Findings Light touch sensation: LUE;RUE;Intact (05/12/231017) Coordination: LUE;RUE;Gross motor;Fine motor;Intact (05/12/231017) Current Functional Status: Bilateral Upper Extremity Hand Dominance: Right (05/12/231017) Range of Motion: WFL (05/12/231017) Strength Assessment: WNL (05/12/231017) Self Care Able to provide self care: Yes (05/12/231017) Functional Ambulation Assistive Device: Rolling walker (05/12/231017) Distance in feet:: 40 (05/12/231017) Level of Assistance: Supervision (Please Comment) (05/12/231017) OT Transfers Sit-Stand: Supervision (Please comment) (05/12/231017) Stand-Sit: Supervision (Please comment) (05/12/231017) Toilet: Supervision (Please comment) (05/12/231017) Balance Sit (Static): Normal (05/12/231017) Sit (Dynamic): Normal (05/12/231017) Stand (Static): Good (05/12/231017) Stand (Dynamic): Good (05/12/231017) Alarm Status Patient positioned in: Chair (05/12/231017) With: Call gregg in reach (10/24/23 1018) Patient and Family Goals: to get well and to return home Patient Education Education Topic: Plan of care goals;Role of OT (05/12/231017) Review of Precautions: Safety;Fall (05/12/231017) Method of Education: Verbalized to patient (05/12/231017) Education Provided to: Patient (05/12/231017) Response to Education: Receptive and agreeable to education (05/12/231017) Barriers to learning: Medical status (05/12/231017) Treatment Provided: Therapeutic Activity: 26 minutes Evaluation Low Complexity 13 minutes - [id number]: Patient was cooperative and pleasant during treatmentsession. Low complexity evaluation performed and ADL deficit, functional mobility deficit, and impaired balance deficits were identified that result in activity limitation. The patient does not have any comorbidities that affect occupational performance. There were no modifications necessary to complete the evaluation. Deficits Requiring O.T. Treatment: Deficits requiring O.T. treatment needs: ADL/self-care;Balance;Endurance;Fine motor coordination;Functional mobility;IADL;Safety;Upper extremity range of motion;Upper extremity strength;Weakness (05/12/23 101) Goals: Bathing: Upper: modified independent (100% with device and additional time). Lower: modifiedindependent (100% with device and additional time) Dressing: Upper: independent (pt does 100%) and modified independent (100% with device and additional time). Lower: modified independent (100% with device and additional time). Transfers with: Sit to Stand: modified independent (with device or slow) Stand Pivot modified independent (with device or slow) Bed to Chair/Wheelchair: modified independent (with device or slow). Demonstrates Grooming at modified independent (100% with device and additional time). Demonstrates toileting at modified independent (100% with device and additional time) Goal Time Frame: Within 1-10 treatment sessions Assessment: Pt tolerated OT session well. Pt was A&Ox4 and able to answer all prior functional level questions without assist. While seated EOB, pt demonstrated B UE strength and ROM WFL. Pt with intact B UE sensation. Pt performed ambulatory chair <> toilet transfer using the RW for stability with SPV for safety. Pt was able to complete toileting with Supervision for hygiene and Supervision for clothing management. Pt was able to stand at the sink and wash hands, wash face, and brush teeth with SPV. Pt stood at the sink and completed upper and tiffany bathing with SPV for safety while in stance. Pt donned hospital gown with assist for threading arms through sleeves and for tying gown. Pt ambulated back to chair using the RW with SPV for safety. Pt was educated on AE and adaptive dressing techniques in order to promote independence with bathing/dressing tasks. Pt verbalized understanding of all equipment. Pt was able to doff socks using a dressing stick, gather socks using a dressing stick, and don socks using a sock aid with SPV and verbal cues for technique. OT AM-PAC: 19 Pt requires assist with bathing and dressing . As such, Would consider home with post-acute care services which may include outpatient therapy or home health. The level of care will be determined in collaboration with the patient, family/caregiver, and care team members. Skilled OT services warranted here at [facility] to address deficits in ADLs and functional mobility. Treatment Plan: Energy Conservation, Safety, Homemaking Skills, Bed mobility training, Functional Ambulation, Transfer training, Coordination Tasks, ROM exercises, Upper extremity strengthening, Balance activities, ADL training, and Endurance Anticipated Frequency (on eval): 1 to 3 times per week (05/12/23 101) AM-PAC Help From Another Person Eating Meals: None (05/12/23 101) Help From Another Person Taking Care of Personal Grooming: A little (05/12/231017) Help From Another Person To Put On/Take Off Upper Body Clothing: A little (05/12/23 101) Help From Another Person To Put On/Take Off Lower Body Clothing: A little (05/12/23 1018) Help From Another Person Toileting: A little (05/12/23 101) Help From Another Person Bathing: A little (05/12/23 101) OT AM-PAC Score: 19 (05/12/23 1018) OT AM-PAC t-Scale Score: 40.22 (05/12/23 1018) HLM (Highest Level of Mobility) Goal: Level 6 walk 10 steps or more (05/12/23 0842) * Shawna Otero, PT - 05/12/2023 10:10 AM EDTAssociated Order(s): ADULT PHYSICAL THERAPY CONSULT IP GENERAL EVALUATION - Physical Therapy [address] [address] Name: Nenita Whitman Location: [facility] [id number]-6019/D Date: 05/12/2023 Time: 10:10 Nenita Whitman is a/an 67 year old female. Patient Status: SORU (23 hr Surgical Overnight) Insurance: Payor: digitalbox Plan: digitalbox CLASSIC [id number] Product Type: *No Product type* Patient Seen: at bedside, nursing cleared patient for therapy Patient Identified By: Name, ID Band and Date Patient presents with HPI of the following, per MD note, "67-year-old female previously presented for evaluation of bilateral knee pain, right greater than left. She localizes pain to the medial aspect and has reported associated swelling and stiffness. Her symptoms have been present for many yearsbut becoming progressively worse over the past few years. She is undergone previous treatment with minimal benefit. This has included activity modification, oral medications, steroid injections as well as viscosupplementation. She has reported start-up pain. She also has been using a cane for assistance. Of note she does report a history of atrial fibrillation and internal carotid arterial occlusion treated on Coumadin. During her last evaluation, she has worked towards weight loss and has achieved a BMI of 37.5. She was also recently evaluated by her Heme-Onc physician, Dr. Leone, who is further evaluating anemia" Surgery this admission: R LORETTA assisted TKA, 05/11 Diagnosis: s/p R TKA (05/12/23909) Status of treatment: OOB evaluation completed (05/12/23909) Orders: PT evaluation and treatment (05/12/23909) Weight Bearing Status: Weight bearing as tolerated (05/12/23909) Precautions: Falls;Safety (05/12/23909) Total Treatment Time--free text: 60 min (05/12/23909) Past Medical History: Past Medical History: Diagnosis [...] performed by Forrest Davidson DO at OR [facility] COLONOSCOPY, DIAGNOSTIC (RECTUM) 11/12/2016 adenocarcinoma/[facility] COLONOSCOPY, DIAGNOSTIC (RECTUM) 02/16/2018 serrated adenomatous polyp, repeat 1 yr/[facility] COLONOSCOPY, DIAGNOSTIC (RECTUM) 03/16/2019 benign polyps, repeat 2 yrs/[facility] COLONOSCOPY, DIAGNOSTIC (RECTUM) 04/11/2021 normal, repeat 3 yrs / [facility] DENTAL SURGERY PROCEDURE NEC Dental Surgery Procedure wisdom teeth INFORMATION 04/2022 Cardioversion. INFORMATION Part of colon removed. INFORMATION 11/2021 Heart Cath PAYTON FLEX SIGMOID DIAGNOSITIC 11/20/2016 SIGMOIDOSCOPY FLEXIBLE DIAGNOSTIC performed by Declan West MD at ENDOSCOPY [facility] REMOVAL OF OVARY(S) Left REMOVAL OF OVARY(S) FOR TUMOR benign Subjective: "I feel OK" Social History/Disposition Lives with: Spouse (05/12/23 1018) Assistance available: Yes (05/12/23 1018) Dwelling type: Multi-story home (1st floor setup) (05/12/23 1018) Entry steps: Other - Describe (10 with HR) (05/12/23 1018) Inside steps: None (05/12/231017) Bedroom location: 2nd floor (bed brought down for first floor setup) (05/12/23 101) Bath location: 1st floor full bath;2nd floor full bath (05/12/231017) Prior Level of Function Reported by: Patient (05/12/23909) Ambulation: Ambulatory with device (05/12/23909) Ambulatory Device: Quad cane (due to pain, normally without device) (05/12/23909) Devices at home: Quad cane;Rolling walker;Bedside commode;Shower chair;Grab bars (hand held shower head) (05/12/23909) Observations Consciousness: Alert (05/12/23909) Orientation: Oriented times 4 (05/12/23909) Psychosocial: Patient can communicate basic needs;Patient can converse in a social setting (05/12/23909) Other Findings: No (05/12/23909) Sitting Posture: Rounded shoulders (05/12/23909) Standing Posture: Rounded shoulders (05/12/23909) Pain: Patient has complaints of pain. Pain located R knee. 0/10 at rest and 5/10 with mobility. Nursing made aware Range of Motion Range of Motion: WFL, except (R knee due to recent surgery) (05/12/23909) Strength Assessment Strength Assessment: Deficits noted (05/12/23909) WNL, except: (R hip 4-/5, R knee 3-/5) (05/12/23909) Transfers Sit-Stand: Supervision (05/12/23909) Stand-Sit: Supervision (05/12/23909) W/C-Bed/Mat: Supervision (05/12/23909) Ambulation: Distance ambulated (feet): 165 Assistive Device: Rolling walker Assist: Supervision Stairs: 4 with LHR and CGA, 1 step with RW and CGA Balance Sit (Static): Good (05/12/23909) Sit (Dynamic): Good (05/12/23909) Stand (Static): Fair (05/12/23909) Stand (Dynamic): Fair (05/12/23909) Patient and or Family Goal(s): to get well and to return home Patient Education Review of Precautions: Safety;Total Knee;Fall (call gregg) (05/12/23909) Review of Exercises: Written Handout Provided;Pt Demonstrated Exercise (05/12/23909) Review of Home Program: Yes (05/12/23909) Teachback Test Complete: Yes (05/12/23909) Safety Awareness: Patient verbalizes insight of current deficits;Patient demonstrates carryover of insight during functional tasks;Patient can communicate basic needs (05/12/23909) Preferred learning method: Combination (05/12/23909) Barriers to learning: Medical Status (05/12/23909) Method of Education: Verbalized to patient;Demonstrated to patient;Written information provided to patient (05/12/23909) Topic of Education: Safety with mobility, Goals/plan of care, Use of assistive device, Fall prevention, and d/c recommendations Method of Education: Verbal discussion and explanation provided to patient regarding topics mentioned above: verbalized understanding and or agreement of this information Extremity Exercise Supine: Hip;Knee;Ankle;Isometrics (05/12/23909) Hip : Right;Abduction;1 set of 10 (05/12/23909) Knee : Right;Heel slide;SAQ;1 set of 10 (05/12/23909) Ankle: Right;Plantar flexion;Dorsiflexion;2 sets of 10 (05/12/23909) Isometrics: Glute sets;Quad sets;1 set of 10 (3s hold) (05/12/23909) Treatment Provided: Therapeutic Activities 10 minutes: transfer training HEP, d/c recommendations Gait Training 20 minutes: gait training with rolling walker stair training Therapeutic Exercises: 20 minutes Evaluation Moderate Complexity 10 minutes - 18032: Patient was cooperative, pleasant, motivated, and alert during treatment session. Moderate complexity evaluation performed and 1-2 personal factors or comorbidities were identified that will impact plan of care, including multiple steps at home, obesity, multiple orthopedic injuries, and pain. Patient presents with limitations in range of motion,strength, bed mobility, transfers, gait, balance, endurance, and safety, which will impact plan of care. These limitations will be addressed by the goals set for this patient. Alarm Status Patient positioned in: Chair (05/12/23909) With: Call gregg in reach (05/12/23909) Treatment Status: Treatment at bedside (05/12/23909) Goals: Demonstrate Bed Mobility with: Supine to Sit: independent (pt does 100%) Sit to supine: independent (pt does 100%) Demonstrate Transfers with: Sit to stand: modified independent (with device or slow) Bed to chair: modified independent (with device or slow) Demonstrate Stairclimbing: Number of steps: 4, rail on left, and Level of Assistance: independent (pt does 100%) Demonstrate ambulation 150 feet modified independent (with device or slow) with RW Increase Safety: with all mobility tasks to decrease fall risk Time Frame: 1-8 visits Assessment: Patient presents with expected functional deficits s/p R TKA such as pain, weakness, and gait abnormality. Currently requires supervision/CGA for all mobility with use of RW. <25% verbal education required for safety/technique without any LOB or safety concerns noted. Patient tolerated supine TE program well without any major difficulty and demonstrated appropriate carryover of tech nique. HEP provided with education on compliance/adherence. Patient verbalized understanding of alleducation provided and actively participated in session. PT AM PAC is 18, Would consider home with post-acute care services which may include outpatient therapy or home health. The level of care willbe determined in collaboration with the patient, family/caregiver, and care team members. Will contto provide skilled PT services while at [facility] Deficits requiring P.T. treatment needs: Safety;Mobility;Balance;Weakness;Range of motion;Lower extremity strength (05/12/23909) Equipment Needs: Equipment needs: Rolling walker ((already owns)) (05/12/23909) Treatment Plan: Bed mobility training, Transfer training, Gait training, Elevation training, ROM exercises: , Strengthening exercises: , Balance activities, and Educate on safety with all mobility tasks to decrease fall risk Anticipated Frequency (on eval): (3-6x/wk) (05/12/23909) AM PAC Score with Stairs: 18 * Denny Adame RN - 05/12/2023 8:04 AM EDTAssociated Order(s): BLOOD MANAGEMENT CONSULT IP CONSULT - Patient Blood Management [address] [facility] [place] [address] Name: Nenita Whitman Location: [facility] [id number] Date: 05/12/2023 Time: 8:04 AM REQUESTING SERVICE: [facility] ortho REASON FOR CONSULT: new evaluation inpatient, s/p TKR Recent hemorrhage: no History of prior anemia: no Recent surgery: yes Anemia Evaluation: Latest Reference Range & Units 05/04/23 10:28 05/11/23 17:22 05/12/23 04:08 HGB 12.0 - 15.3 g/dL 12.2 10.2 (L) 8.8 (L) HCT 36.0 - 45.2 % 39.0 31.8 (L) 28.1 (L) (L): Data is abnormally low Current Patient Medications: Medications that may impair hemostasis: bASA,lovenox Medications that may impair iron absorption: none Patient Refused Blood Transfusion? (e.g. Mormonism): no Possible Contributing Factors: acute blood loss Treatment Recommendations: If no active hemorrhage, consider PRBC transfusion only for severe anemia and use a 1 unit PRBC dose followed by a repeat clinical assessment. For reversal of anticoagulation therapy, use Reversal of Anticoagulation order set. Limit and coordinate blood draws to prevent iatrogenic anemia. Venofer 300mg IVPB daily x 2 days B12 1mg daily Folic acid 1mg daily vitamin daily x 2 months on D/C for ABLA Follow-up Recommendations: Follow up with PCP for further assessment/management of anemia post discharge. Spoke with Austin SCHMIDT in regards to current recommendations, agreeable to same. Thank you for allowing Blood Management to participate in the care of this patient. * Vaishali Chan PA-C - 05/11/2023 6:31 PM EDTAssociated Order(s): General Internal Medicine Images from the original note were not included. [facility] 6B-6019/D Hospital Medicine - Consult General Internal Medicine Consult performed by: Vaishali Chan PA-C Consult ordered by: Forrest Davidson DO REASON FOR CONSULT: Postoperative medical management REQUESTOR OF CONSULT: Forrest Davidson DO HPI: Nenita Whitman is a 67 year old female with a PMHx of DM2, HTN, pAF, SALVADOR on CPAP, HLD, obesity admitted s/p right total knee replacement today by Dr. Davidson. Reports pain is controlled.Denies recent fevers, chills, chest pain, shortness of breath, abdominal pain, nausea and vomiting.Patient has been holding her coumadin for the last 3 days and has been using lovenox. Patient does wear a CPAP @HS with 3L of oxygen. Patient reports drinking scotch daily, approximately 2-3 drinks per day. Denies tobacco use. Subjective Patient's past history, medications, and allergies were reviewed. Objective Physical Exam Most Recent Vital Signs: BP: 162 mmHg/72 mmHg (05/11/231831) Pulse: 51 (05/11/231831) Temp: 35.78 C (05/11/231831) Resp: 16 (05/11/231831) SpO2: 93 % (05/11/231831) General: Pt in bed, alert, in no [...] no stasis changes noted Peripheral Line Right Wrist 18 Gauge (Active) Number of days: 0 STUDIES: Encounter Orders Labs and other studes reviewed with pertinent findings noted below: Results for orders placed or performed during the hospital encounter of 05/11/23 PT INR Result Value Ref Range Prothrombin Time 13.6 11.6 - 15.2 seconds INR 1.0 0.8 - 1.2 GLUCOSE METER, POINT OF CARE Result Value Ref Range Glucose Meter 86 70 - 120 mg/dL GLUCOSE METER, POINT OF CARE Result Value Ref Range Glucose Meter 145 (H) 70 - 120 mg/dL *Note: Due to a large number of results and/or encounters for the requested time period, some results have not been displayed. A complete set of results can be found in Results Review. XR KNEE 1-2 VIEWS Final Result PROCEDURE INFORMATION: Exam: XR Right Knee Exam date and time: 05/11/2023 5:46 PM Age: 67 years old Clinical indication: Pain; Right; Prior surgery; Surgery date: Post-operative (0-2 days); Surgery type: Knee replacement; Additional info: Postop knee TECHNIQUE: Imaging protocol: Radiologic exam of the right knee. Views: 1 or 2 views. COMPARISON: DX XR KNEE 3 VIEWS 04/23/2023 2:11 PM FINDINGS: Bones/joints: Postsurgical changes of total right knee arthroplasty in satisfactory alignment. The [place] osseous structures are intact. Soft tissues: Surrounding soft tissue swelling with subcutaneous air secondary to recent surgery. IMPRESSION IMPRESSION: Satisfactory placement of total right knee arthroplasty. THIS DOCUMENT HAS BEEN ELECTRONICALLY SIGNED BY SUDHIR BURNS MD Assessment and Plan IMPRESSION: Principal Problem: S/P total knee arthroplasty, right Active Problems: Essential hypertension with goal blood pressure less than 140/90 Type 2 diabetes mellitus without complications (HCC) Paroxysmal atrial fibrillation (HCC) Dyslipidemia, goal LDL below 70 SALVADOR on CPAP Body mass index (BMI) of 40.0 to 44.9 in adult (HCC) Alcohol abuse Resolved Problems: * No resolved hospital problems. * RECOMMENDATIONS: Patient admitted by Dr. Davidson s/p right knee arthroplasty today, medicine has been consulted for medical management. - CPAP with 3L O2 @HS ordered. - Hold home metformin, may resume at discharge - Accuchecks and sliding scale coverage qAC&HS as indicated per protocol. - Hold IV fluids as patient is eating and drinking. - Resume [employer]ET[employer] lasix - CIWA protocol ordered for possible ETOH withdrawal as patient is a daily ETOH user. - Coumadin and lovenox as per pharmacy. - Check CBC, BMP, INR in AM. - Pain management, surgical site care, activity, diet as per primary service. - Resume all other [employer]ETING MANAGER medications. I spent a total of 40 minutes coordinating, documenting, and providing care for this patient excluding time spent in the performance of separately billed services or time spent by another provider/QHP. Vaishali Chan PA-C Associated attestation - Mode Frias MD - 05/11/2023 6:59 PM EDT I have reviewed the advanced practitioner documentation and agree. I saw and evaluated the patient on date of service referenced in note and have performed the following medically appropriate historyand/or exam: hx exam and mdm. * Jodie Jimenez [facility] - 05/11/2023 6:24 PM EDTAssociated Order(s): ANTI- COAGULATION CONSULT IP; CARE MANAGEMENT CONSULT IP PHARMACY ANTICOAGULATION WARFARIN (Coumadin) Assessment [address] [address] Name: Nenita Whitman Location: [facility] 6B-6019/D Date: 05/11/2023 Time: 6:23 PM Please see previous note for consult. documented in this encounter Nursing Notes * Clarita Linn RN - 05/12/2023 3:53 PM EDT NURSING DISCHARGE PROGRESS NOTE Discharge instructions provided, pt verbalized understanding. All belongings sent home with pt. Pt escorted out of hospital via wheelchair by ELDA Arias. * BAL Woodard/LUZ - 05/12/2023 2:[address] Lety MD Orthopaedics [facility] [phone] [address] [facility] May @ 1:00 p.m. * Nenita Mccarthy RN - 05/11/2023 6:54 PM EDT BLANCA RN [address] [address] Name: Nenita Whitman Location: [facility] D Date: 05/11/2023 Time: 6:55 PM I completed the Admission Navigator. The patient was in the hospital. I was not in a hospital or clinic location. After connecting through [employer], the patient was identified by name and date of and / or wristband checked. Patient (or authorized legal sales representative printing paper) was then informed that this was a Virtual Nurse visit and was being conducted confidentially over secure lines. My office door was closed. No one else was in the room with me. Patient acknowledged consent and understanding of privacy and security of the Virtual Nurse visit. I presented the opportunity for the patient or authorized legal sales representative printing paper to ask any questions regarding the visit today. The patient or authorized legal sales representative printing paper agreed to participate. * Clarita Linn RN - 05/11/2023 6:16 PM EDT IN-HOUSE TRANSFER RECEIVING UNIT - NURSING [address] [address] Name: Nenita Whitman Location: [facility] D Date: 05/11/2023 Time: 6:16 PM Patient received to room 6019 at 1805 Vital Signs: BP: 157 mmHg/79 mmHg (05/11/23 1805) Pulse: 55 (05/11/23 1805) Temp: 36 C (05/11/23 1805) Resp: 16 (05/11/23 1805) SpO2: 91 % (05/11/23 1805) Pertinent transfer information upon arrival Pt AAOx4 on 2L O2 NC. Denies pain at this time. Surgical dressing clean, dry, intact. Full sensation to BLE. 5/5 strength to all extremities. Palpable pedal pulses bilaterally. Cap refill 3 seconds. Bruising noted to BLE. Denies SOB, cough, chills. Belongings received with patient: clothing/shoes Verbal SBAR report received from: Nikia Fernandez RN Dual Licensed Skin Assessment completed by Leo Linn RN and Margaret Madrid RN. The patient is/has a N/A Skin Breakdown (includes non blanchable erythema): Yes - Surgical/Procedural changes only. * Ellyn Fernandez RN - 05/11/2023 6:09 PM EDT Post Anesthesia Care Unit Discharge Note [facility] [address] Dept. [facility] Vital Signs Stable Discharged from PACU as per discharge criteria (see discharge criteria sheet). Time: 1800 Reported to: Clarita LOOMIS Taken to Inpatient Room 6019, accompanied by Unique Rausch RN. Transported via: Bed Belongings with Patient: YES Prescriptions on Chart: N/A Patient meets criteria to be transferred or discharged * Bree Colby RN - 04/17/2023 3:32 PM EDT Patient identified by: name/birthdate Person taught: Patient Optime case procedure confirmed with patient/parent/guardian - no consent signed. Laterality confirmed as Right Surgery date at time of Pre-Surgery Center Encounter: 05/11/2023. What procedure is patient having? Right Robotic assisted Total Knee Arthroplasty In an emergency, is patient willing to accept blood products or blood transfusion? Unknown. Do you need to place a blood bank order? No Anesthesia consent pool notified? N/A Anesthesia evaluation requested per case documentation? No Preop Evaluation Requested? Yes, follow-up will be documented on Anesthesia note- Pt's 04/15/2023 PCP clearance note is in Epic. PATIENT EDUCATION SCREENING Person taught: Patient Motivation Level: Asks Questions and Eager to Learn Language Barrier: No Physical Barrier: N/A METHOD: Lecture-telephone interview Patient Preferred Learning Methods: Lecture-Telephone interview Health History interview completed, questions answered, and the following patient instructions provided via telephone interview: Preoperative bathing instructions General preoperative instructions Medication instructions NPO instructions - If your normal morning routine take Amiodarone, Atorvastatin, Cymbalta, Zetia, Metoprolol, Myrebetriq, and Vesicare the morning of surgery. If you take metformin, hold it the evening before surgeryas well. No tobacco products after midnight. Pt to ask her surgeon for low dose ASA instructions. Pt is getting Coumadin/Lovenox instructions from the [facility]. Pt instructed to stop her multivitamin 10 days prior. Proven Recovery. OUTCOME: State / Describe / Explain and Needs Reinforcement * Bree Colby RN - 04/16/2023 10:36 AM EDT Left message on mobile phone for return call @ [phone] by Patient at least one week prior to surgery date or to leave a number where they can be reached . Instructed clinic open hours are M-F 8:00a- 4:00p. documented in this encounter OR Notes * OR Surgeon - Forrest Davidson DO - 05/11/2023 4:30 PM EDT OPERATIVE RECORD OR [facility], Operating Room, [facility] - 4th Floor [address] [place] [address] [place] [address] Nenita Whitman : 1955 DATE OF PROCEDURE: 05/11/2023 SERVICE: ORTHOPAEDIC SURGERY SURGEON: Forrest Davidson DO ASSISTANTS: Antonio Villeda MD - Orthopedic resident PGY-2; Kai Hyde PA-C Was there a qualified resident that took part in the case? Yes - Resident was qualified to assist. PREOPERATIVE DIAGNOSIS: Right knee primary osteoarthritis, severe POSTOPERATIVE DIAGNOSIS: Same PROCEDURE: Right robotic assisted total knee arthroplasty FINDINGS: Right knee demonstrated severe tricompartmental degenerative change most notable within medial compartment and along the trochlea. The patella was relatively preserved with only peripheral osteophyte formation noted. Moderate joint effusion. No significant synovitis. Degenerative meniscaltearing identified. ESTIMATED BLOOD LOSS: 100 mL IV FLUID: 1200 mL URINE: N/A SPECIMEN: None IMPLANTS: Frannie Triathlon cementless CR femoral component - right, size 4 Frannie Triathlon Tritanium cementless tibial component - size 4 Frannie Triathlon X3 CS articular surface - size 4, 11 mm ANESTHESIA: General endotracheal Postoperative pain management per Anesthesia for evaluation and placement of regional anesthesia toreduce the need for opioid pain medication. -- Time Out Completed per Policy: Yes -- Surgical Count Completed and Correct: Yes TOURNIQUET TIME: 109 minutes at 225 mmHg, right upper thigh DRAINS: None COMPLICATIONS: None. CONDITION: Stable INDICATIONS AND BRIEF HISTORY: 67-year-old female previously presented for evaluation of bilateral knee pain, right greater than left. She localizes pain to the medial aspect and has reported associated swelling and stiffness. Hersymptoms have been present for many years but becoming progressively worse over the past few years.She is undergone previous treatment with minimal benefit. This has included activity modification, oral medications, steroid injections as well as viscosupplementation. She has reported start-up pain. She also has been using a cane for assistance. Given her severe osteoarthritis of the right knee, failed conservative treatment and progressive symptoms, we discussed joint replacement, specificallyrobotic assisted surgery. She was in agreement to proceed. Appropriate consent was obtained and shewas scheduled for the necessary procedure. DESCRIPTION OF PROCEDURE: The patient was met in the preoperative holding area by me who correctly identified the right knee as the operative site. This was marked with skin marker. The patient was then brought to the operative suite and placed in a supine position on the OR table. A general anesthetic was placed by the denise thesiologist. All bony prominences were well padded and the patient was securely fastened to the table. A tourniquet was applied to the upper thigh. The patient received preoperative antibiotics per protocol prior as well as Tranexamic acid prior to incision. The patient was prepped and draped in normal sterile fashion in such a manner as to leave the right lower extremity freely mobile for the ne cessary procedure. A timeout was performed to note that the proper patient was in the room and the appropriate procedure was to be undertaken. Once deemed correct by all present, the procedure commenced. An incision was marked coursing from the tibial tubercle to roughly 2 fingerbreadths above the superior pole of patella. An Esmarch was utilized to exsanguinate the lower extremity and the tourniquetwas inflated to 225 mmHg. The leg was placed in a semi-flexed position. A 10 blade was then taken to incise the marked incision through the skin. A fresh 10 blade was utilized to continue dissection down through the subcutaneous tissue to the level of the capsule. The VMO was visualized. Next, a standard medial parapatellar arthrotomy was performed. A moderate joint effusion was suctioned. The synovium overlying the distal superior lateral ridge of the femur was excised. Severe degenerative cervantes ges were appreciated. Diffuse areas of eburnated bone and osteophyte formation present involving primarily the medial compartment and trochlea. Z-retractors were placed for soft tissue retraction andvisualization. Checkpoint pins were placed along the medial femoral condyle adjacent to the epicondyle and another just medial to the tibial tubercle. Next, we proceeded with identifying pin sites for the tibial and femoral array. Two pin sites were marked 4 finger breaths above the patella and 4 finger breadths below the tibial tubercle. Stab incisions were made with a 15 blade. Tibial and femoral array pins were drilled into bicortical position over the anterior femoral diaphysis and anteriormedial tibial shaft. The arrays were affixed accordingly. Once in position the center of hip rotation was identified followed by the medial and lateral malleoli. Checkpoints were confirmed. We then proceeded with registration per protocol involving the distal femur and proximal tibia. At this point, we proceeded with fine tuning our preoperative plan with assessment of ligamentous balancing in both extension and flexion. Virtual implant positioning was performed using our preoperative CT model allowing us to finalize femoral and tibial bone preparation. We then proceeded with bone cuts after referencing the checkpoints and saw blade. Soft tissue retractors were appropriately positioned. Therobotic arm was then positioned in such a manner to begin with the distal and posterior chamfer cutfollowed by the posterior cut, anterior cut, anterior chamfer cut and proximal tibial cut. We decided to proceed with cementless fixation given good bone quality. The femur was sized to a 4 and tibia was to a 4. Corresponding trials were placed with a size 9 CR articular surface was floated in position. Knee range of motion was assessed as well as patellar tracking. 0-120 range of motion was achieved due to leg girth with excellent patellar tracking. Symmetric ligamentous tension was noted. Tibial baseplate rotation was marked with Bovie electrocautery. The patella was then assessed. The patella articular cartilage was relatively preserved. Peripheral osteophytes were removed with a rongeur. We decided not to pursue patellar resurfacing. The trial femoral component was removed after lug holes were drilled. The tibia was pinned into position, drilled and a fin punch was placed in standard fashion as well as a secondary drill block for cementless fixation. Following this, the tibial trial component was removed. The knee was thoroughly lavaged with normal saline solution mixed with gentamicin. The femoral and tibial array constructs were removed as well as the tibial and femoral check points. Next, the final tibial baseplate was Press-Fit into position. The final femoral component was Press-Fit into position. A 11 CS polyethylene component was placed. Excellent stability and range of motion was observed. The synovium was injected with 0.5% Marcaine with Epinephrine. The knee was thoroughly lavaged once again and the tourniquet was let down at 109 minutes total. No significant bleedingwas identified. Bovie electrocautery was utilized in limited fashion for focal capsular and subcutaneous bleeding. Meticulous hemostasis was achieved. 1 g of vancomycin powder was placed intra-articularly. The capsule was closed with #1 Ethibond suture in jzchhq-ob-awuqp fashion. The subcutaneous tissue was closed with 2-0 Vicryl suture and simple inverted fashion and the skin was closed with 3-0Monocryl in subcuticular fashion. The wound was cleaned and dried. Mastisol and Steri-Strips were applied to the incision and pin sites. A sterile dressing utilizing EARLENE with Acticoat was placed followed by a thigh- high Nickie hose. An ice pack was placed over top. The drapes were then removed and anesthesia was reversed. The patient tolerated the procedure well and was taken to the PACU in stable and satisfactory condition. Postoperative x-rays were reviewed demonstrating a stable right total knee prosthesis in anatomic alignment without complication. The postoperative neurovascular status remained unchanged from preoperative baseline. POST-OP PLAN: The patient will be admitted for postoperative pain control, rehabilitation and medical management.Postoperative antibiotics will be ordered per protocol and discontinued after 24 hours. DVT prophylaxis will be initiated immediately with bilateral lower extremity SCDs. Lovenox will start postoperative day 1 alongside Coumadin for appropriate bridging back to her home Coumadin regimen. Pain will be controlled with a spinal anesthetic, postoperative adductor canal block, oxycodone, IV Toradol and Tylenol. Physical therapy will be initiated the day of surgery with weight-bearing as tolerated tothe operative extremity. Anticipated discharge on postoperative day 1. This chart was completed in part utilizing [employer] Voice Recognition Software. Grammatical errors, random word insertions, pronoun errors, and incomplete sentences are an occasional consequence of this system due to software limitations, ambient noise, and hardware issues. Any formal questions or concerns about the content, text, or information contained within the body of this dictation should be directly addressed to the provider for clarification. Forrest Davidson DO 05/11/2023 4:30 PM * Operative Report Brief - Forrest Davidson DO - 05/11/2023 4:23 PM EDT [facility] [id number] OPERATIVE REPORT - BRIEF Name: Nenita Whitman Date: 05/11/2023 Time: 4:23 PM Location: [facility] Service: Orthopedic Surgery Date of Operation: 05/11/2023 Pre-op Diagnosis: Right knee osteoarthritis, severe Post-op Diagnosis: Same Operation: Right robotic assisted total knee arthroplasty Surgeon: Forrest Davidson DO Assistants: Antonio Villeda MD - orthopedic resident PGY-2; Kai Hyde PA-C Anesthesia: General endotracheal anesthesia Postoperative pain management per Anesthesia for evaluation and placement of regional anesthesia toreduce the need for opioid pain medication. Drains: none Estimated Blood Loss: 100 ml. IV Fluids: 1200 ml. Urine Output: N/A Specimens/Disposition: None Apparent Intraoperative Complications: NONE Patient Condition: stable Disposition: Post Anesthesia Care Unit Attestation: I performed the procedure documented in this encounter Miscellaneous Notes * Pt Handout (on AVS) - Asiya Madrid RN - 05/12/2023 3:22 PM EDT Images from the original note were not included. [id number] Sennosides, Half-Way Oral Tablet Brands: Ex-Lax Maximum Relief Formula, Senokot, SenoSol Uses For bowel movement. Instructions Swallow with a full glass (8 oz) of water unless your doctor gives you different instructions. Keep the medicine at room temperature. Avoid heat and direct light. Frequent or computer terminal operator use of laxatives can cause your bowels to depend on them. Do not use laxatives for more than one week unless directed by your doctor. To reduce constipation, eat high fiber foods, drink plenty of water and exercise. Tell your doctor and pharmacist about all your medicines. Include prescription and yoql-qep-tkgnzhigpbguttng, vitamins, and herbal medicines. Tell your doctor [...] , planning to be , or . Do not start or stop any other medicines without first speaking to your doctor or pharmacist. Side Effects The following is a list of some common side effects from this medicine. Please speak with your doctor about what you should do if you experience these or other side effects. diarrhea changes in the color of the urine or stool nausea stomach upset or abdominal pain dark urine Call your doctor or get medical help right away if you notice any of these more serious side effects: confusion severe, watery or bloody diarrhea dizziness fainting fast or irregular heart beats muscle weakness urinating less often severe or persistent vomiting A few people may have an allergic reaction to this medicine. Symptoms can include difficulty breathing, skin rash, itching, swelling, or severe dizziness. If you notice any of these symptoms, seek medical help quickly. Extra Please speak with your doctor, nurse, or pharmacist if you have any questions about this medicine. [email or web address] IMPORTANT NOTE: This document tells you briefly how to take your medicine, but it does not tell youall there is to know about it. Your doctor or pharmacist may give you other documents about your medicine. Please talk to them if you have any questions. Always follow their advice. There is a more complete description of this medicine available in Italian. Scan this code on your smartphone or tablet or use the web address below. You can also ask your pharmacist for a printout. If you have any questions, please ask your pharmacist. The display and use of this drug information is subject to Terms of Use. Copyright(c) 2022 [employer]. All rights reserved. This information is not intended as a substitute for professional medical care. Always follow your healthcare professional's instructions. * Pt Handout (on AVS) - Asiya Madrid RN - 05/12/2023 3:22 PM EDT Images from the original note were not included. [id number] Oxycodone/Acetaminophen Oral Tablet Brands: Endocet, Nalocet, Percocet, Primlev, Prolate Uses For pain. Instructions This medicine may be taken with or without food. Store at room temperature away from heat, light, and moisture. Do not keep in the bathroom. Please ask your doctor, nurse, or pharmacist how to discard unused medicines safely. To reduce constipation, eat high fiber foods, drink plenty of water and exercise. Drug interactions can change how medicines work or increase risk for side effects. Tell your healthcare providers about all medicines taken. Include prescription and bjcg-gcx-pmvwfce medicines, vitamins, and herbal medicines. Speak with your doctor or pharmacist before starting or stopping any medicine. Tell your doctor if symptoms do not get better or if they get worse. Cautions This medicine has an opioid. Opioids help many people but may cause addiction, especially if used for a long time. The addiction risk is higher if you have a substance use disorder (overuse of or addiction to drugs or alcohol). Ask your doctor about the benefits and risks. Ask your doctor or pharmacist if you should have naloxone on hand to treat opioid overdose. Teach your family or household members about the signs of an opioid overdose and how to treat it. If you stop this medicine suddenly after using it for a long time, you may have withdrawal. Your doctor may slowly lower your dose before stopping it. Tell your doctor right away if you have symptoms, such as unusual sweating, watering eyes, runny nose, chills, diarrhea, yawning, muscle aches, restlessness, anxiety, trouble sleeping, or thoughts of suicide. Tell your doctor and pharmacist if you ever had an allergic reaction to a medicine. Do not use the medication any more than instructed. If possible, avoid using with alcohol, marijuana, or other medicines that can cause dizziness or drowsiness. These include allergy/cold products, muscle relaxers, sleep aids, and pain relievers. Your ability to stay alert or to react quickly may be impaired by this medicine. Do not drive or operate machinery until you know how this medicine will affect you. This medicine passes into breast milk. Ask your doctor before . This medicine can hurt a new baby in the womb. If you become while on this medicine, tell your doctor immediately. Your doctor may switch you to a different medicine. This medicine should be used with caution in patients with breathing difficulties. Call your doctor right away if you notice slow or shallow breathing. Do not share this medicine with anyone who has not been prescribed this medicine. This medicine contains acetaminophen. There are many medicines with acetaminophen. Taking these medicines together can cause you to get too much acetaminophen. This can cause serious liver problems. Look carefully on the package of all your medicines to see if acetaminophen is included. Ask your pha rmacist which medicines you can take safely. Some patients have serious side effects from this medicine. Ask your pharmacist to show you the information from the Food and Drug Administration (FDA) and discuss it with you. Side Effects The following is a list of some common side effects from this medicine. Please speak with your doctor about what you should do if you experience these or other side effects. decreased appetite constipation dizziness or drowsiness lightheadedness nausea and vomiting If you have any of the following side effects, you may be getting too much medicine. Please contactyour doctor to let them know about these side effects. changes in memory, mood, or thinking confusion fainting slow heartbeat Call your doctor or get medical help right away if you notice any of these more serious side effects: decreased awareness or responsiveness breathing interruption during sleep shallow, irregular breathing hallucinations (unusual thoughts, seeing or hearing things that are not real) signs of liver damage (such as yellowing of eye or skin, dark urine, or unusual tiredness) seizures shortness of breath severe stomach or bowel pain difficulty or discomfort urinating severe or persistent vomiting weight loss A few people may have an allergic reaction to this medicine. Symptoms can include difficulty breathing, skin rash, itching, swelling, or severe dizziness. If you notice any of these symptoms, seek medical help quickly. Extra Please speak with your doctor, nurse, or pharmacist if you have any questions about this medicine. [email or web address] IMPORTANT NOTE: This document tells you briefly how to take your medicine, but it does not tell youall there is to know about it. Your doctor or pharmacist may give you other documents about your medicine. Please talk to them if you have any questions. Always follow their advice. There is a more complete description of this medicine available in Italian. Scan this code on your smartphone or tablet or use the web address below. You can also ask your pharmacist for a printout. If you have any questions, please ask your pharmacist. The display and use of this drug information is subject to Terms of Use. Copyright(c) 2022 [employer]. 8286-4501 [employer]. All rights reserved. This information is not intended as a substitute for professional medical care. Always follow your healthcare professional's instructions. * Pt Handout (on AVS) - Asiya Madrid RN - 05/12/2023 3:22 PM EDT Images from the original note were not included. [id number] After Knee Replacement: Back at Home You and your healthcare team will evaluate how well you can care for yourself at home. You may needfriends, family, or a home health aide to help with chores and errands. Your occupational or physical therapist will teach you the skills needed for daily living with your new knee. Home safe home Is your home as safe as it should be? Or, are there potential hazards, like rugs and cords, ready to trip you up? Make sure your home is safe and free of hazards before you return. Ask friends or family to help you rearrange rooms as needed. Tips: Remove throw rugs to prevent slipping or tripping on them. Move electrical cords out of the way. Remove any clutter from the floor, such as books or shoes. Install a rail along one side of staircases. Place items used regularly in cabinets that can be reached without using a step stool. Bathroom safety You may need to adjust your bathroom to make it safer and easier to use. Your occupational therapist can help you choose the right equipment for your bathroom. They will also teach you to bathe, dress, and sit more easily in the bathroom. Tips: Use a long-handled sponge to wash vgyp-mq-knnqp areas. Use a rubber-backed bathmat to help keep the floor dry and prevent slipping. Sit on a shower chair while you bathe. Use commode chair or elevated toilet seat if your healthcare provider advises you to. This device raises the height of your toilet. Your doctor may advise that you use a toilet seat riser. This raises the height of the toilet seat. Managing pain at home You may be prescribed pain medicine to use at home. With pain under control, you?ll get back to an active life sooner. Use pain medicine only as directed. Take each dose as prescribed, before pain becomes severe. Don?t hesitate to take medicine when you need it. Wait about 30 minutes after taking pain medicine before starting an activity, such as exercise. Tell your healthcare provider if the medicine doesn?t control your pain or if you suddenly feel worse. Icing and elevating your leg can alsohelp relievepain. Last Reviewed Date: 01/17/202219991588-0443 [employer]. All rights reserved. This information is not intended as a substitute for professional medical care. Always follow your healthcare professional's instructions. * Pt Handout (on AVS) - Asiya Madrid RN - 05/12/2023 3:22 PM EDT Images from the original note were not included. [address] After Knee Replacement: Using a Walker Once you can stand, you?ll start using a walker. There are three main types of walkers: Standard without wheels 2-wheeled (front) rolling walker 4-wheeled rolling walker Your physical therapist or another member of your healthcare team will help you select the best walker for you. As you become better at using the walker and your knee strengthens, you?ll be taught more advanced skills. For instance, after your physical or occupational therapist or manager content has shown you the correct procedures, you may practice stepping on and off a curb as directed. Your first steps Push your walker a few inches in front of you. Keeping your back straight, lean on the walker so it supports your weight. Step into the center of the walker with your operated leg, being careful not to twist your leg. Then, step with your other leg. As you get more comfortable using the walker, you may be able to move it as you step. Walking up a curb Move your feet and the walker as close to the curb as possible. Put your weight on both your legs, then lift the walker onto the curb. Step up with the un-operated leg. Using the walker to support your weight, bring up the operatedleg. Walking down a curb Move your feet and the walker as close to the edge of the curb as you safely can. Lower the walker onto the ground, keeping its back legs against the curb. Using the walker to support your weight, lower the operated leg. Then step down with the other leg. Last Reviewed Date: 01/17/202119992057-9518 [employer]. All rights reserved. This information is not intended as a substitute for professional medical care. Always follow your healthcare professional's instructions. * Pt Handout (on AVS) - Asiya Madrid RN - 05/12/2023 3:22 PM EDT Images from the original note were not included. [address] After Knee Replacement: The First Month You?ll apply the same movement skills you learned in the hospital or rehab center to your exercise program at home. You may also keep meeting with your physical therapist. Following your exercise program brings big rewards. With your knee in shape, you?ll walk more easily and get back to an active life sooner. Maintaining your exercise program Exercising is the only way to get back your strength and range of motion. With continued exercise, you may gain even more strength and range of motion than you had before surgery. That?s because before surgery, pain and stiffness may have limited your movement. So make exercise part of your daily routine. Keep meeting with your physical therapist as directed. They may add riding a stationary bike, swimming, or other new exercises to your program. Walking in stride Walking helps build a more normal, comfortable stride. It also keeps you in shape and helps preventblood clots. Start by taking one or more short walks every day. Over time, increase how far, how long, and how many times a day you walk. After your walk, lie down, elevate your knee, and ice it to ease swelling. Your healthcare provider or physical therapist will tell you when and where to use your walker, crutches, or cane. They will also let you know when you can stop using them. Last Reviewed Date: 01/17/202319995974-0633 [employer]. All rights reserved. This information is not intended as a substitute for professional medical care. Always follow your healthcare professional's instructions. * Pt Handout (on AVS) - Asiya Madrid RN - 05/12/2023 3:22 PM EDT [address] After Knee Replacement: Managing Pain at Home You may be given pain medicine to use at home. With pain under control, you?ll get back to an active life sooner. Use pain medicine only as directed. You may also be told to take bmrs-omj-ccwgixb pain medicines that don?t need a prescription. You may be told to use these with, or instead of, your pr escription medicines. Take each dose on time, before pain gets bad. Wait about 30 to 60 minutes after taking pain medicine before starting an activity, such as physical therapy and exercise. This will give it time to start working. Tell your healthcare provider if the medicine doesn?t control your pain enough or if you suddenly feel worse. Icing and raising your leg can also help ease pain. Ask your provider about possible side effects. These may include: Feeling sleepy Having constipation Becoming dependent on the medicine Your surgeon may also advise some of these other treatments for your pain: Relaxation techniques Massage therapy Acupuncture Transcutaneous electrical nerve stimulation (a TENS unit) Continuous passive motion Often a combination of medicine and other treatments work best. Last Reviewed Date: 06/19/202119999488-8332 [employer]. All rights reserved. This information is not intended as a substitute for professional medical care. Always follow your healthcare professional's instructions. * Pt Handout (on AVS) - Asiya Madrid RN - 05/12/2023 3:22 PM EDT Images from the original note were not included. 78112 After Knee Replacement: Controlling Swelling Swelling is common after total knee replacement. It may be worse after exercise. To help control swelling, follow the steps below. Ice your knee Wrap an ice pack or bag of frozen peas in a thin cloth, then place it on your knee. Don?t use ice for more than 20 minutes at a time. If you have an ice machine, use it as directed. Elevate your leg Elevate your leg above your heart. Ask your healthcare provider about safe positions to do this. Do ankle pumps Continue doing ankle pumps. They help reduce swelling, improve circulation, and prevent blood clots. Point, then flex both feet slowly. Repeat this 10 to 30 times each hour. Compression stocking Your surgeon may recommend wearing a compression stocking. This will help control swelling. It may also help prevent blood clots. Last Reviewed Date: 01/17/202319995882-7206 [employer]. All rights reserved. This information is not intended as a substitute for professional medical care. Always follow your healthcare professional's instructions. * Pt Handout (on AVS) - Asiya Madrid RN - 05/12/2023 3:22 PM EDT Images from the original note were not included. 76874 After Knee Replacement: Keeping Your Knee Healthy You can keep your knee healthy by knowing the right moves and not doing the wrong ones. Some activities could harm your artificial knee and may be permanently restricted. Your healthcare provider andphysical therapist will give you specific instructions and advice. Take small steps to move your body. Do?s: Place your knee comfortably as you go about daily activities. Exercise and walk every day as directed by your healthcare provider. Use an ice pack if your knee starts to swell or feel tender. Don?ts: Don't twist your knee. Turn your whole body instead. Don't jump or do any impact activity. It could loosen your new knee joint. Don't force movements, such as bending your knee too far. Don't put a pillow behind your knee when you are resting. This may keep you from straightening it fully. Follow-up care Your orthopedic surgeon will schedule follow-up exams to make sure that your knee is healing the right way. Use this time to ask any questions you have about your recovery or activities. Last Reviewed Date: 01/17/202219993279-0125 [employer]. All rights reserved. This information is not intended as a substitute for professional medical care. Always follow your healthcare professional's instructions. * Pt Handout (on AVS) - Asiya Madrid RN - 05/12/2023 3:22 PM EDT 45191 Discharge Instructions for Total Knee Replacement You have had knee replacement surgery. The knee joint forms where the thighbone, shinbone, and kneecap meet. The knee joint is supported by muscles and ligaments It's lined with a cushioning called cartilage. Over time, cartilage wears away. This can make the knee feel stiff and painful. Your surgeon replaced your painful joint with an artificial joint to relieve pain and restore movement. Here are some directions to follow once at home. Home care Follow your surgeon's directions on when it's OK to shower. Carefully wash your incision as directed. Rinse the incision (cut) well. Then gently pat it dry. Don?t rub the incision, or apply creamsor lotions. Sit on a shower stool or chair when you shower to keep from falling. Take all medicine as directed by your surgeon. Sitting and sleeping Sit in chairs with arms. The arms make it easier for you to stand up or sit down. Don?t sit for more than 30 to 45 minutes at a time. Nap if you are tired, but don?t stay in bed all day. Sleep with a pillow under your ankle, not your knee. Be sure to change the position of your leg during the night. Moving safely The winkler to successful recovery is movement with walking and exercising your knee as directed by your healthcare provider. You should be able to start moving your leg shortly after surgery as directed by your surgeon. Walk up and down stairs with support. Try 1 step at a time. Use the railing if possible. Don?t drive until your healthcare provider says it?s OK. Most people can start driving about 6 weeks after surgery. Don?t drive while you are taking opioid pain medicine. Other precautions Don't soak your knee in water until your surgeon says it?s OK. This means no hot tubs, bathtubs,or swimming pools. You may be given support stockings. If so, wear them as directed by your surgeon. These may be needed for 4 to 6 weeks after surgery. If needed, you can place a bandage over the incision to prevent irritation from clothing or support stockings. Arrange your household to keep the items you need handy. Keep everything else out of the way. Remove items that may cause you to fall, such as throw rugs and electrical cords. Use nonslip bathmats, grab bars, an elevated toilet seat, and a shower chair in your bathroom. Until your balance, flexibility, and strength improve, use a cane, crutches, a walker, handrails, or someone to help you. Keep your hands free by using a backpack, preet pack, apron, or pockets to carry things. Prevent infection. Ask your healthcare provider for instructions if you haven?t already receivedthem. Any infection will need to be treated right away. Call your healthcare provider right away ifyou think you might have an infection. Tell your dentist that you have an artificial joint. You may be directed to take antibiotics as prescribed before any dental work. Tell all your healthcare providers about your artificial joint before any medical procedure. Stay at a healthy weight. Get help to lose any extra pounds. Added body weight puts stress on the knee. Take any medicine you may have been given after surgery as prescribed. This may include blood-thinning medicine to prevent blood clots or antibiotics to prevent infection. Follow-up care Follow up with your healthcare provider as advised. If you have ebony or stitches to close your incision, follow your surgeon's instructions on when to return to have them removed, usually about 2 to 3 weeks after surgery. Call 911 Call 911 right away if either of the following occur: Chest pain Shortness of breath When to call your healthcare provider Call your healthcare provider right away if any of the following occur: Fever of 100.4F (38C) or higher, or as directed by your healthcare provider Pain or swelling in your calf Shaking chills Stiffness or inability to move the knee Increased swelling in your leg Increased redness, tenderness, or swelling in or around the knee incision Drainage from the knee incision Increased knee pain Last Reviewed Date: 09/17/202119995342-3289 [employer]. All rights reserved. This information is not intended as a substitute for professional medical care. Always follow your healthcare professional's instructions. * Pt Handout (on AVS) - Asiya Madrid RN - 05/12/2023 3:22 PM EDT Images from the original note were not included. 15686 Total Knee Replacement During total knee replacement surgery, your damaged knee joint is replaced with an artificial joint, called a prosthesis. This surgery almost always reduces joint pain and improves your quality of life. The parts of the prosthesis are secured to the bones of the knee. Together they form the new joint. Before your surgery You will most likely arrive at the hospital on the morning of the surgery. Follow all your healthcare provider's instructions on preparing for surgery: Follow any directions you are given for taking medicines and for not eating or drinking before surgery. At the hospital, your temperature, pulse, breathing, and blood pressure will be checked. An IV (intravenous) line will be started to give you fluids and medicines during surgery. The procedure When the surgical team is ready, you?ll be taken to the operating room. There you?ll be given anesthesia to help you sleep through surgery. One common type of anesthesia is general anesthesia (you are put to sleep). Others are spinal, epidural, or regional nerve block anesthesia. For these, you areawake, but your body is numb from the waist down. The anesthesia team will talk with you to determine which type of anesthesia will be best for you. Then a cut is made on the front or side of your knee. Any damaged bone is cleaned away. The new joint parts are put into place. The cut is closed withsurgical ebony or stitches. After your surgery After surgery, you?ll be sent to the recovery room. The nurses will give you medicines to ease yourpain. You may have a small tube (catheter) in your bladder. In some cases, a continuous passive motion machine may be used on the knee to keep it from getting stiff. A sequential compression machine may be used to prevent blood clots by gently squeezing then letting go of your lower leg. You may begiven medicine to prevent blood clots. Soon, healthcare providers will help you get up and moving. When to call your healthcare provider Once at home, call your healthcare provider if you have any of these symptoms: Trouble breathing or chest pain (call 911) An increase in knee pain Pain or swelling in the calf or leg Unusual redness, heat, or drainage at the incision site Fever of 100.4F (38C) or higher, or as directed by your healthcare provider Shaking chills Last Reviewed Date: 02/17/202319995151-5349 [employer]. All rights reserved. This information is not intended as a substitute for professional medical care. Always follow your healthcare professional's instructions. * Ancillary Progress Note - Lorraine Rodrigez RN - 05/12/2023 2:33 PM EDT ADULT CARE MANAGEMENT - DISCHARGE NOTE [facility]-[address] [address] Name: Nenita Whitman Location: [facility] 6B-6019/D Date: 05/12/2023 Time: 2:34 PM The following coordination of care and discharge plan has been coordinated with the care team, patient, family and/or caregiver according to the patients needs and preferences. Discharge Discharge Insurance considerations verified and completed: Yes (05/12/23 3913) Second Notice Important Message from Medicare delivered: Not Applicable (05/12/231432) Was Caregiver/Family/Facility contacted regarding discharge: Yes (05/12/231432) Discharge Transportation: Family/Friends drive (05/12/231432) Date of scheduled discharge transportation: 05/12/23 (05/12/231432) Final D/C Plan - Complete at time of D/C Final Discharge Plan (Complete only at time of Discharge): Home with Services (05/12/231432) Home Medical Care - Admitted Since 05/11/2023 Service Provider Selected Services Address Phone Fax Patient Preferred Last Updated [facility] [address] [facility] [address], [facility] [address] -- Lorraine Rodrigez RN 05/12/20231431 Narrative: Patient discharged home with spouse and [facility]. Spouse will provide transportation on discharge. * Ancillary Progress Note - Lorraine Rodrigez RN - 05/12/2023 2:22 PM EDT CARE MANAGEMENT - ADULT INITIAL SCREENING [facility]-[address] [address] Name: Nenita Whitman Location: [facility] 6B-6019/D Date: 05/12/2023 Time: 2:22 PM Patient Class: SORU (05/12/231417) Discussed patient with the interdisciplinary care team. This Human Resource Professional performed a chart review and met with patient at bedside to complete admission screen and assessed needs for transition planning. The acute care nurse practitioner role and services were explained and emotional support was provided. 30 Day Readmission Screening Chief Complaint: No chief complaint on file. Prior Living Arrangements What was your living situation prior to admission/observation?: With Spouse (05/12/231417) Do you have any children, pets, or other dependents that you are currently caring for?: No (05/11/231836) Living Quarters: House (05/12/231417) How many stories is the dwelling?: Two Stories (05/12/231417) Number of steps to enter living quarters:: 10 (05/12/231417) Location of bathroom(s): All floors or Single story dwelling (05/12/231417) Do you have serious difficulty walking or climbing stairs? (5 years old or older): Yes (05/11/23 044) History of falling: No (05/12/23 0841) Prior Level of Functioning Describe the patient's ability prior to admission/observation to perform ADLs: Performs independently (05/12/231417) Requires assistance with: Bathing;Dressing (05/12/23 1056) Describe the patient's mobility status prior to admission: Patient ambulates independently (05/12/231417) Patient uses assistive device: Yes (05/12/231417) If yes, choose:: Cane (05/12/231417) Caregiver Information Patient Contacts Name Relation Home Work Mobile Misty WHITMAN Spouse [phone] Risk Stratification/Psychosocial/Care Gaps Risk Stratification Medical and Behavioral Health Concerns Identified: Chronic disease (05/12/231417) Psycho Social/Care Gaps concerns identified upon admission:: Adjustment to illness/injury () Accessed [facility] to connect patients to social care resources: No (05/12/231417) OBRA or OPTIONS needed for placement: No (05/12/231417) Readmission Risk Score: 10 (05/12/231417) AM-PAC Score With Stairs : 18 (05/12/23 0910) Comments: Patient to [facility] 05/11 for scheduled right TKA. PMH includes type 2 DM, a fib, HTN, HF, OSAon CPAP, dyslipidemia. Patient with no recent ED visits or hospitalizations to [facility]. Consults include PT, OT, anti-coagulation consult, CM, general internal medicine. Prior to admission patient resided in a 2 story home with spouse with 10 steps to enter with a first floor set up. Patient used a cane for ambulation and was independent with ADL's and IADL's. Patient able to drive herself to appointments. Patient has quad cane, walker with wheels, BSC, shower bench and CPAP with 3 L of oxygen at night supplied by [employer]. Referral was submitted to [facility] prior to admission and confirmed SOC for 05/13. Goal is to return home with spouse and [facility]. will provide transportation on DC. [facility] 18 [facility] Gold Prior to Admission Services Services Prior to Admission RETAIL MARKETING MANAGER Services (Services received within the last 30 days with exception, Psych within last two years): Durable Medical Equipment (05/12/231417) RETAIL MARKETING MANAGER Durable Medical Equipment (DME) in home: Quad Cane Size Unknown;Walker Rolling;Bedside commode;Shower chair/bench;CPAP/BiPAP/Home Vent;Oxygen (name) - Comment (05/12/231417) DME Name: Debbi (05/12/231417) [place] Dept[place] of Aging (PDA) Waiver Program: N/A (05/12/231417) RETAIL MARKETING MANAGER Transportation (Services received within the last 30 days): N/A (05/12/231417) Outpatient Human Resource Professional: no, not applicable Patient/Family Expectations: home with spouse and [facility]. Anticipated Disposition Plan & Post Acute Needs Anticipated Plan Anticipated D/C disposition per abbreviated screening: Post hospitalization needs identified, continue to monitor for transition planning (05/12/231417) Anticipated Post-Acute Care needs identified: Home Care Services (05/12/231417) For further screening information, please refer to the Care Management flow document. * Progress Notes - Post-Op [employer] - Balta Hyde PA-C - 05/12/2023 8:25 AM EDT ORTHOPAEDICS PROGRESS NOTE [facility]-[address] [address] Name: Nenita Whitman Location: [facility] 6B-6019/D Date: 05/12/2023 Time: 8:30 AM SUBJECTIVE: Patient seen and examined at bedside this morning. Patient resting comfortably in bedside chair. Nenita is a very pleasant 67-year-old female who is postop day 1 status post total right knee arthroplasty. Today she reports that she is doing quite well, and is in no significant discomfort. She denies fevers, chills, night sweats. She denies chest pain or shortness of breath. No reported calf pain. She reports no symptoms related to low hemoglobin, and is eager for discharge. OBJECTIVE: Most Recent Vital Signs: BP: 188 mmHg/73 mmHg (05/12/23647) Pulse: 51 (05/12/23803) Temp: 35.5 C (05/12/23647) Resp: 16 (05/12/23647) SpO2: 97 % (05/12/23803) Vital Signs Last 24 Hours: Systolic BP: Most Recent Systolic BP Av.8 mmHg Min: 108 mmHg Max: 205 mmHg Temperature: Most Recent Temperature Av C Min: 35.39 C Max: 37.28 C Pulse: Pulse Av.7 Min: 51 Max: 93 Respirations: Resp Av.4 Min: 10 Max: 18 SpO2: SpO2 Av.4 % Min: 88 % Max: 98 % Exam: Examination of the right knee reveals a clean, dry, and intact earlene dressing and pin site dressings without evidence of bleeding, drainage, or signs of infection. There is no tenderness to palpation. There is no significant soft tissue swelling or edema appreciated. She is able to demonstratea straight leg raise and range the knee from full extension to nearly 90 flexion. Calf is supple and nontender. She is distally neurovascularly intact with appropriate sensation to light touch, palpable, and brisk cap refill in the toes. Distal motor function is intact to include strong great toedorsiflexion. LABS: Labs reviewed as indicated below: H&H 8.8 IMAGING: Postoperative images of the right knee demonstrate stable total right knee arthroplasty prosthesis without evidence of hardware complication or loosening. IMPRESSION and PLAN: POD # 1 s/p right total knee arthroplasty - Pain control - DVT prophylaxis with SCDs and aspirin 81 mg with Lovenox bridge to Coumadin Acute postoperative blood loss anemia, asymptomatic - Recheck labs in a.m. - Ferrous sulfate/ascorbic acid supplement daily Ambulatory dysfunction - Begin PT/OT - WBAT - total knee rehabilitative protocol Begin discharge planning - home with home health likely tomorrow. * Care Plan - Alessia Mccallum RN - 05/12/2023 5:59 AM EDT Clinical Goal(s): Pt. will get OOB to ambulate this shift (05/11/231937) Possible barriers to meeting goal(s)/advancing plan of care: pain, weakness Stability of the patient: Moderately stable - low risk of patient condition declining or worsening Summary regarding today's goal(s): Met: Pt. OOB a few times to ambulate to bathroom Recommendations: Continue to encourage ambulation, pain control documented in this encounter Plan of Treatment Upcoming Encounters Date Type Department Care Team (Late st Contact Info) Description 05/13/2023 6:45 AM EDT Anticoagulation Pharmacy Call Center WB [address] [facility] [place] [address] [facility] [address] [facility] [place] [address] 05/21/2023 1:00 PM EDT Office Visit Orthopaedics [facility] [address] [place] [address] [address], [address] [place] [address] 09/30/2023 9:20 AM EDT Office Visit Family Practice [facility] [place] [address] [place] [address] Collette Mello III, MD [address] [place], [place] [address] [place] [address] 10/01/2023 3:15 PM EDT Office Visit Hematology/Oncology [facility] [place] [address] [place] [address] [address] Efraín Leone MD [address] [place] [address] [address] 11/12/2023 11:20 AM EDT Office Visit Dermatology [facility] [place] [address] [place] [address] [address] Margarita Figueredo PA-C [address] [place] [phone] 02/25/2024 9:30 AM EDT Imaging Radiology [address] [facility] [place] [address] 04/21/2024 10:30 AM EDT Office Visit Sleep Disorders Ctr [facility] [address] [facility] [place] [phone] Viktoriya White CRNP [address] [facility] [place] [address] Scheduled Orders Name Type Priority Associated Diagnoses Orde r Schedule PT INR Lab Routine Right internal carotid occlusion Left renal mass Expected: 05/14/2023, Expires: 05/12/2024 CBC WITH WBC DIFFERENTIAL Lab Routine Postoperative anemia due to acute blood loss Expected: 05/14/2023, Expires: 05/12/2024 Scheduled Procedures Name Priority Associated Diagnoses Date/Ti me COLONOSCOPY FLEXIBLE PROXIMA L DIAGNOSTIC Recall History of colonic polyps Scheduled Referrals Name Type Priority Associated Diagnoses Orde r Schedule HOME HEALTH REFERRAL OP Referral Within 3 days (urgent) S/P total knee arthroplasty, right Postoperative anemia due to acute blood loss Ordered: 05/12/2023 Health Maintenance Due Date Last Done Comments [...] this encounter Medical Devices Implanted Type Area Loan Assistant Device Identifier Shelf Expiration Date Model / Serial / Lot Knee X3 Ins Pos Cs Sz4 11 - Sn/A - [id number] Implanted:Qty: 1 on 05/11/2023 by Forrest Davidson, at OR [facility] Right: Knee FRANNIE : ORTHOPAEDICS 10/16/2027 [id number] / N/A / [id number] documented as of this encounter Procedures Procedure Name Priority Date/Time Associated Diagnosis Comments GLUCOSE METER, POINT OF CARE AILYN 05/12/2023 11:19 AM EDT GLUCOSE METER, POINT OF CARE AILYN 05/12/2023 7:15 AM EDT BASIC METABOLIC PANEL Routine 05/12/2023 4:08 AM EDT PT INR Routine 05/12/2023 4:08 AM EDT CBC Routine 05/12/2023 4:08 AM EDT GLUCOSE METER, POINT OF CARE AILYN 05/11/2023 9:35 PM EDT XR KNEE 1-2 VIEWS STAT 05/11/2023 5:5 9 PM EDT GLUCOSE METER, POINT OF CARE AILYN 05/11/2023 5:26 PM EDT HGB STAT 05/11/2023 5:22 PM EDT HCT STAT 05/11/2023 5:22 PM EDT Arthroplasty Knee Total 05/11/2023 1:30 PM EDT Knee osteoarthritis GLUCOSE METER, POINT OF CARE AILYN 05/11/2023 12:34 PM EDT PT INR STAT 05/11/2023 12:19 PM EDT documented in this encounter Results * (ABNORMAL) GLUCOSE METER, POINT OF CARE (05/12/2023 11:19 AM EDT) Glucose Meter 144(H) 70 - 120 mg/dL 05/12/2023 11:41 AM EDT [facility] Blood Whole blood specimen / Unknown 05/12/2023 11:19 AM EDT 05/12/2023 11:41 AM EDT Forrest Davidson DO LAB POINT OF CARE TEST DOCKED DEVICE UNSOLICITED RESULTS [facility] [address] [place] [address] * (ABNORMAL) GLUCOSE METER, POINT OF CARE (05/12/2023 7:15 AM EDT) Glucose Meter 138(H) 70 - 120 mg/dL 05/12/2023 8:00 AM EDT [facility] Blood Whole blood specimen / Unknown 05/12/2023 7:15 AM EDT 05/12/2023 8:00 AM EDT Forrest Davidson DO LAB POINT OF CARE TEST DOCKED DEVICE UNSOLICITED RESULTS Performing Organization Address [facility] Co de Phone Number [facility] [address] [place] [address] * (ABNORMAL) CBC (05/12/2023 4:08 AM EDT) WBC 9.70 4.00 - 10.80 K/uL 05/12/2023 4:46 AM EDT LABORATORY GL RBC 2.97 3.85 - 5.15 M/uL 05/12/2023 4:46 AM EDT LABORATORY GL HGB 8.8(L) 12.0 - 15.3 g/dL 05/12/2023 4:46 AM EDT LABORATORY GLH HCT 28.1(L) 36.0 - 45.2 % 05/12/2023 4:46 AM EDT LABORATORY GL MCV 94.6 81.5 - 97.5 fL 05/12/2023 4:46 AM EDT LABORATORY GL MCH 29.6 27.0 - 34.0 pg 05/12/2023 4:46 AM EDT LABORATORY GL MCHC 31.3 32.0 - 36.0 g/dL 05/12/2023 4:46 AM EDT LABORATORY GL RDW 13.7 11.5 - 15.5 % 05/12/2023 4:46 AM EDT LABORATORY GLH PLT 229 140 - 400 K/uL 05/12/2023 4:46 AM EDT LABORATORY GL MPV 9.9 6.6 - 11.1 fL 05/12/2023 4:46 AM EDT LABORATORY GL nRBCs 0 <=0 /100 WBCs 05/12/2023 4:46 AM EDT LABORATORY GLH Blood Venous blood specimen / Unknown Venipuncture / Unknown 05/12/2023 4:08 AM EDT 05/12/2023 4:42 AM EDT Forrest Davidson DO LAB BLOOD OR DERABLES LABORATORY GL [address] [place] [address] * (ABNORMAL) BASIC METABOLIC PANEL (05/12/2023 4:08 AM EDT) BUN 16 6 - 20 mg/dL 05/12/2023 5:06 AM EDT LABORATORY GL Creatinine 0.8 0.5 - 1.0 mg/dL 05/12/2023 5:06 AM EDT LABORATORY GL Estimated Glomerular Filtration Rate 80 >=60 mL/min 05/12/2023 5:06 AM EDT LABORATORY GLH Comment:eGFR is calculated b ased on the CKD-EPI 2020 equation Sodium 132(L) 135 - 146 mmol/L 05/12/2023 5:06 AM EDT LABORATORY GLH Potassium 4.4 3.5 - 5.1 mmol/L 05/12/2023 5:06 AM EDT LABORATORY GLH Chloride 94(L) 98 - 107 mmol/L 05/12/2023 5:06 AM EDT LABORATORY GLH CO2 30 22 - 32 mmol/L 05/12/2023 5:06 AM EDT LABORATORY GLH Anion Gap 8 7 - 15 mmol/L 05/12/2023 5:06 AM EDT LABORATORY GLH Glucose 170(H) 70 - 120 mg/dL 05/12/2023 5:06 AM EDT LABORATORY GLH Calcium 9.0 8.4 - 10.2 mg/dL 05/12/2023 5:06 AM EDT LABORATORY GLH Blood Venous blood specimen / Unknown Venipuncture / Unknown 05/12/2023 4:08 AM EDT 05/12/2023 4:42 AM EDT Forrest Davidson DO LAB BLOOD OR DERABLES Performing Organization Address [facility]/ZIP Co de Phone Number LABORATORY [address] [phone] * PT INR (05/12/2023 4:08 AM EDT) Prothrombin Time 13.9 11.6 - 15.2 seconds 05/12/2023 4:58 AM EDT LABORATORY [facility] INR 1.1 0.8 - 1.2 05/12/2023 4:58 AM EDT LABORATORY [facility] Blood Venous blood specimen / Unknown Venipuncture / Unknown 05/12/2023 4:08 AM EDT 05/12/2023 4:42 AM EDT Narrative LABORATORY [facility] - 05/12/2023 4:58 AM EDT Warfarin Therapy INR: 2.0-3.0 conventional anticoagulation INR: 2.5-3.5 high intensity anticoagulation Forrest Davidson DO LAB BLOOD OR DERABLES Performing Organization Address [facility] Co de Phone Number LABORATORY [address] [address] * (ABNORMAL) GLUCOSE METER, POINT OF CARE (05/11/2023 9:35 PM EDT) Glucose Meter 248(H) 70 - 120 mg/dL 05/11/2023 9:46 PM EDT [facility] LAB[facility] Blood Whole blood specimen / Unknown 05/11/2023 9:35 PM EDT 05/11/2023 9:46 PM EDT Forrest Davidson DO LAB POINT OF CARE TEST DOCKED DEVICE UNSOLICITED RESULTS Performing Organization Address [facility] Co de Phone Number [facility] LABORATORY [address] [place] [phone] * XR KNEE 1-2 VIEWS (05/11/2023 5:59 PM EDT) Anatomical Region Laterality Modality Knee, Lower Extremity Digital Ra diography 05/11/2023 5:46 PM EDT Impressions 05/11/2023 6:18 PM EDT IMPRESSION: Satisfactory placement of total right knee arthroplasty. THIS DOCUMENT HAS BEEN ELECTRONICALLY SIGNED BY SUDHIR BURNS MD Narrative 05/11/2023 6:18 PM EDT PROCEDURE INFORMATION: Exam: XR Right Knee Exam date and time: 05/11/2023 5:46 PM Age: 67 years old Clinical indication: Pain; Right; Prior surgery; Surgery date: Post-operative (0-2 days); Surgery type: Knee replacement; Additional info: Postop knee TECHNIQUE: Imaging protocol: Radiologic exam of the right knee. Views: 1 or 2 views. COMPARISON: DX XR KNEE 3 VIEWS 04/23/2023 2:11 PM FINDINGS: Bones/joints: Postsurgical changes of total right knee arthroplasty in satisfactory alignment. The [place] osseous structures are intact. Soft tissues: Surrounding soft tissue swelling with subcutaneous air secondary to recent surgery. Procedure Note Sudhir Burns MD - 05/11/2023 PROCEDURE INFORMATION: Exam: XR Right Knee Exam date and time: 05/11/2023 5:46 PM Age: 67 years old Clinical indication: Pain; Right; Prior surgery; Surgery date:Post-operative (0-2 days); Surgery type: Knee replacement; Additional info: Postop knee TECHNIQUE: Imaging protocol: Radiologic exam of the right knee. Views: 1 or 2 views. COMPARISON: DX XR KNEE 3 VIEWS 04/23/2023 2:11 PM FINDINGS: Bones/joints: Postsurgical changes of total right knee arthroplasty in satisfactory alignment. The [place] osseous structures are intact. Soft tissues: Surrounding soft tissue swelling with subcutaneous airsecondary to recent surgery. IMPRESSION IMPRESSION: Satisfactory placement of total right knee arthroplasty. THIS DOCUMENT HAS BEEN ELECTRONICALLY SIGNED BY SUDHIR BURNS MD Forrest Davidson DO RADIOLOGY (R AD GENERAL) * (ABNORMAL) GLUCOSE METER, POINT OF CARE (05/11/2023 5:26 PM EDT) Glucose Meter 145(H) 70 - 120 mg/dL 05/11/2023 5:28 PM EDT [facility] LAB[facility] Blood Whole blood specimen / Unknown 05/11/2023 5:26 PM EDT 05/11/2023 5:28 PM EDT Forrest Davidson DO LAB POINT OF CARE TEST DOCKED DEVICE UNSOLICITED RESULTS Performing Organization Address City/[facility]/ZIP Co de Phone Number [facility] LABORATORY [address] [place] [address] * (ABNORMAL) HCT (05/11/2023 5:22 PM EDT) HCT 31.8(L) 36.0 - 45.2 % 05/11/2023 7:01 PM EDT LABORATORY [facility] Blood Venous blood specimen / Unknown Venipuncture / Unknown 05/11/2023 5:22 PM EDT 05/11/2023 7:00 PM EDT Forrest Davisdon DO LAB BLOOD OR DERABLES Performing Organization Address City/[facility]/ZIP Co de Phone Number LABORATORY [address] [phone] * (ABNORMAL) HGB (05/11/2023 5:22 PM EDT) HGB 10.2(L) 12.0 - 15.3 g/dL 05/11/2023 7:01 PM EDT LABORATORY [facility] Blood Venous blood specimen / Unknown Venipuncture / Unknown 05/11/2023 5:22 PM EDT 05/11/2023 7:00 PM EDT Forrest Davidson DO LAB BLOOD OR DERABLES Performing Organization Address City/[facility]/ZIP Co de Phone Number LABORATORY [facility] [address] [place] [address] * GLUCOSE METER, POINT OF CARE (05/11/2023 12:34 PM EDT) Glucose Meter 86 70 - 120 mg/dL 05/11/2023 1:04 PM EDT [facility] Blood Whole blood specimen / Unknown 05/11/2023 12:34 PM EDT 05/11/2023 1:04 PM EDT Forrest Davidson DO LAB POINT OF CARE TEST DOCKED DEVICE UNSOLICITED RESULTS Performing Organization Address [facility] Co de Phone Number [facility] [address] [place] [address] * PT INR (05/11/2023 12:19 PM EDT) Prothrombin Time 13.6 11.6 - 15.2 seconds 05/11/2023 12:37 PM EDT LABORATORY [facility] INR 1.0 0.8 - 1.2 05/11/2023 12:37 PM EDT LABORATORY GL Blood Venous blood specimen / Unknown Venipuncture / Unknown 05/11/2023 12:19 PM EDT 05/11/2023 12:22 PM EDT Narrative LABORATORY [facility] - 05/11/2023 12:37 PM EDT Warfarin Therapy INR: 2.0-3.0 conventional anticoagulation INR: 2.5-3.5 high intensity anticoagulation Forrest Davidson DO LAB BLOOD OR DERABLES Performing Organization Address [facility] Co de Phone Number LABORATORY [address] [phone] documented in this encounter Visit Diagnoses Diagnosis S/P total knee arthroplasty, right- Primary Preop examination Preoperative examination, unspecified S/P total knee arthroplasty, right Postoperative anemia due to acute blood loss Acute posthemorrhagic anemia Right internal carotid occlusion Occlusion and stenosis of carotid artery without mention of cerebral infarction Left renal mass Unspecified disorder of kidney and ureter Essential hypertension with goal blood pressure less than 140/90 Type 2 diabetes mellitus without complications (HCC) Type II or unspecified type diabetes mellitus without mention of complication, not stated as uncontrolled Paroxysmal atrial fibrillation (HCC) Atrial fibrillation SALVADOR on CPAP Obstructive sleep apnea (adult) (pediatric) Dyslipidemia, goal LDL below 70 Other and unspecified hyperlipidemia Body mass index (BMI) of 40.0 to 44.9 in adult (HCC) Alcohol abuse Alcohol abuse, unspecified Postoperative anemia due to acute blood loss Acute posthemorrhagic anemia documented in this encounter Administered Medications Inactive Administered Medications - up to 3 most recent administrations Medication Order MAR Action Action Date Dose Rate Site Acetaminophen (Tylenol) tab 975 mg 975 mg, Oral, PREOP, First dose on Thu05/11/23 at 1215, Last dose on Thu05/11/23 at 1215, For 1 dose, Maximum 4 g acetaminophen/day. Avoid in patients with severe hepatic impairment or severe active liver disease. Administer 60 minutes prior to OR., Pre-Op Given 05/11/2023 12:05 PM EDT 975 mg Acetaminophen (Tylenol) tab 975 mg 975 mg, Oral, Q6H, First dose on Thu05/11/23 at 1800, Last dose on Thu05/16/23 at 1200, For 5 days, Maximum 4 g acetaminophen/day. Avoid in patients with severe hepatic impairment or severe active liver disease. Use for 5 days., Post-op Given 05/12/2023 11:26 AM EDT 975 mg Given 05/12/2023 6:03 AM EDT 975 mg Given 05/11/2023 11:54 PM EDT 975 mg amiodarone (Cordarone) tab 200 mg 200 mg, Oral, Daily(AM), First dose on Thu05/12/23 at 0900, Until Discontinued Given 05/12/2023 8:41 AM EDT 200 mg amLODIPine (Norvasc) tab 5 mg 5 mg, Oral, Daily(AM), First dose on Thu05/12/23 at 0900, Until Discontinued Given 05/12/2023 8:41 AM EDT 5 mg aspirin enteric coated tab 81 mg 81 mg, Oral, Daily(AM), First dose on Thu05/12/23 at 0900, Until Discontinued, This med should NOT be Crushed or Chewed Given 05/12/2023 8:41 AM EDT 81 mg atorvaSTATin (Lipitor) tab 80 mg 80 mg, Oral, Daily(AM), First dose on Thu05/12/23 at 0900, Until Discontinued Given 05/12/2023 8:42 AM EDT 80 mg ceFAZolin in dextrose (Ancef) ivpb 2 g 2 g, IV Piggyback, Q8H, 2 doses, First dose on Thu05/11/23 at 2200, Last dose on Thu05/12/23 at 0600, Post-op New Bag 05/12/2023 6:06 AM EDT 2 g 100 mL/hr New Bag 05/11/2023 9:17 PM EDT 2 g 100 mL/hr celecoxib (CeleBREX) cap 200 mg 200 mg, Oral, PREOP, First dose on Thu05/11/23 at 1215, Last dose on Thu05/11/23 at 1215, For 1 dose, Contraindicated in setting of CABG surgery. Do not use in patients with CrCl < 60, receiving ketorolac, bone fracture. Administer 60 minutes prior to OR., Pre-Op Given 05/11/2023 12:05 PM EDT 200 mg Chlorhexidine Gluconate (Scrub-Stat) 2% external solution External, PREOP, First dose on Thu05/11/23 at 1215, Last dose on Thu05/12/23 at 0600, For 2 doses, Complete chlorhexidine wash of entire body, once the evening prior to surgery and once the morning of surgery prior to transporting patient to the pre-operative area , Pre-Op Given 05/11/2023 12:15 PM EDT Knee Right CYANOCOBALAMIN (vitamin B-12) tab 1,000 mcg 1,000 mcg, Oral, Daily(AM), First dose on Thu05/12/23 at 0900, Until Discontinued Given 05/12/2023 8:41 AM EDT 1,000 mcg dextrose 50 % inj 25 mL 25 mL, IV Push, PRN Hypoglycemia, Other, For blood glucose 54 - 69 mg/dL or 70 - 100 mg/dL with symptoms AND patient is unresponsive, NPO, OR unable to swallow, Starting on Thu05/11/23 at 1843, Until Thu05/12/23 at 2010, Administer IV. Recheck blood glucose after 15 minutes. Notify provider. dextrose 50 % inj 50 mL 50 mL, IV Push, PRN Hypoglycemia, Other, For blood glucose below 54 mg/dL AND patient unresponsive, NPO, OR unable to swallow, Starting on Thu05/11/23 at 1843, Until Thu05/12/23 at 2010, Administer IV. Recheck blood glucose in 15 minutes. Notify provider. DULoxetine (Cymbalta) DR cap 120 mg 120 mg, Oral, Daily(AM), First dose on Thu05/12/23 at 0900, Until Discontinued Given 05/12/2023 8:41 AM EDT 120 mg Enoxaparin (Lovenox) inj 100 mg 100 mg, Subcutaneous, Q12H, First dose (after last modification) on Thu05/12/23 at 0900, Last dose on Thu06/08/23 at 2100, For 28 days, If patient is on warfarin, inform provider if daily INR value is 2 or greater!, Post-op Given 05/12/2023 8:48 AM EDT 100 mg Abdomen Right Lower Ezetimibe (Zetia) tab 10 mg 10 mg, Oral, Daily(AM), First dose on Thu05/12/23 at 0900, Until Discontinued Given 05/12/2023 8:41 AM EDT 10 mg Ferrous Sulfate (Feosol) tab 325 mg 325 mg, Oral, EVERY OTHER DAY, First dose on Thu05/12/23 at 0800, Until Discontinued, This med should NOT be Crushed or Chewed Given 05/12/2023 8:41 AM EDT 325 mg folic acid tab 1 mg 1 mg, Oral, Daily(AM), First dose on Thu05/12/23 at 0900, Until Discontinued, Post-op Given 05/12/2023 8:42 AM EDT 1 mg Furosemide (Lasix) tab 40 mg 40 mg, Oral, Daily(AM), First dose on Thu05/12/23 at 0900, Until Discontinued, In the morning. Given 05/12/2023 8:41 AM EDT 40 mg glucagon (Glucagen) inj 1 mg 1 mg, Intramuscular, PRN Hypoglycemia, Other, If patient is unresponsive, or NPO and has no IV access, Starting on Thu05/11/23 at 1843, Until Thu05/12/23 at 2010, NPO and no IV access with either [...] patient alert WITH difficulty chewing/swallowing, Starting on Thu05/11/23 at 1843, Until Thu05/12/23 at 2010, Administer gel. Recheck blood glucose after 15 minutes. Notify provider. 37.5 gram tube = 15 grams glucose = 1 each Glucose (Glutose 15) 40 % gel 30 g of glucose 30 g of glucose, Oral, PRN Hypoglycemia (low sugar), Other, For blood glucose below 54 mg/dL AND patient alert WITH difficulty chewing/swallowing, Starting on Thu05/11/23 at 1843, Until Thu05/12/23 at 2010, Administer gel. Recheck blood glucose after 15 minutes. Notify provider. 37.5 gram tube = 15 grams glucose = 1 each glucose chew tab 16 g 16 g, Oral, PRN Hypoglycemia, Other, For blood glucose 54 - 69 mg/dL or 70 - 100 mg/dL with symptoms and patient alert without difficulty chewing/swallowing., Starting on Thu05/11/23 at 1843, Until Thu05/12/23 at 2010 insulin aspart (NovoLOG) inj Subcutaneous, W/MEALS AND HS, First dose on Thu05/11/23 at 2200, Until Discontinued, MEDIUM DOSE (Usual [...] insulin dose and call covering provider. Given 05/11/2023 9:43 PM EDT 4 Units Abdomen Right Lower Iron Sucrose (Venofer) 300 mg in NSS 250 mL ivpb 300 mg, IV Piggyback, Daily(AM), 2 doses, First dose on Thu05/12/23 at 0900, Last dose on Thu05/13/23 at 0900, Administer over 90 Minutes New Bag 05/12/2023 11:33 AM EDT 300 mg 183.33 mL/hr isolyte-S pH 7.4 infusion Intravenous, at 75 mL/hr, Plasma-LYTE 148, isolyte-S, and isolyte-S pH 7.4 are considered equivalent - including for MAR barcode scanning., CONTINUOUS, Starting on Thu05/11/23 at 1215, Until Thu05/11/23 at 1847, Pre-Op Restarted 05/11/2023 3:00 PM EDT Continue from Pre-Op 05/11/2023 1:50 PM EDT 75 mL/hr New Bag 05/11/2023 12:31 PM EDT 75 mL/hr isolyte-S pH 7.4 infusion Intravenous, at 100 mL/hr, Plasma-LYTE 148, isolyte-S, and isolyte-S pH 7.4 are considered equivalent - including for MAR barcode scanning., CONTINUOUS, Starting on Thu05/11/23 at 1715, Until Thu05/11/23 at 1847, Post-op Restarted 05/11/2023 9:47 PM EDT 100 mL/hr Rate Verify 05/11/2023 6:14 PM EDT 100 mL/hr New Bag 05/11/2023 6:14 PM EDT 100 mL/hr LORazepam (Ativan) inj 1 mg 1 mg, IV Push, Q1H PRN Other, CIWA-Ar score 8-15, repeat CIWA-Ar in 60 minutes. Assess and record Level of consciousness and Respiratory Rate just prior to each dose of LORazepam and 15 minutes after each dose of LORazepam. Hold LORazepam for Respiratory Rate less than 12, somnolent/inability to arouse. Use if patient unable to take PO. Notify provider if 2 doses are given within 2 hours., Starting on Thu05/11/23 at 1842, Until Thu05/12/23 at 2010, For 6 days, MUST FURTHER DILUTE FOR IV PUSH WITH EQUAL VOLUME OF NSS LORazepam (Ativan) inj 2 mg 2 mg, IV Push, Q1H PRN Other, CIWA-Ar score 16-25, repeat CIWA-Ar in 60 minutes. Assess and record Level of consciousness and Respiratory Rate just prior to each dose of LORazepam and 15 minutes after each dose of LORazepam. Hold LORazepam for Respiratory Rate less than 12, somnolent/inability to arouse. Use if patient unable to take PO. Notify provider if 2 doses are given within 2 hours., Starting on Thu05/11/23 at 1842, Until Thu05/12/23 at 2010, For 6 days, MUST FURTHER DILUTE FOR IV PUSH WITH EQUAL VOLUME OF NSS LORazepam (Ativan) inj 4 mg 4 mg, IV Push, Q1H PRN Other, CIWA-Ar Score greater than 25, repeat CIWA-Ar in 60 minutes. Assess and record Level of consciousness and Respiratory Rate just prior to each dose of LORazepam and 15 minutes after each dose of LORazepam. Hold LORazepam for Respiratory Rate less than 12, somnolent/inability to arouse. Use if patient unable to take PO. Notify provider if 2 doses are given within 2 hours., Starting on Thu05/11/23 at 1842, Until Thu05/12/23 at 2010, For 6 days, MUST FURTHER DILUTE FOR IV PUSH WITH EQUAL VOLUME OF NSS LORazepam (Ativan) tab 1 mg 1 mg, Oral, Q1H PRN Other, CIWA-Ar score 8-15, repeat CIWA-Ar in 60 minutes. Assess and record Level of consciousness and Respiratory Rate just prior to each dose of LORazepam and 15 minutes after each dose of LORazepam. Hold LORazepam for Respiratory Rate less than 12, somnolent/inability to arouse. Use PO if patient able to tolerate. Notify provider if 2 doses are given within 2 hours., Starting on Thu05/11/23 at 1842, Until Thu05/12/23 at 2010, For 6 days LORAzepam (Ativan) tab 2 mg 2 mg, Oral, Q1H PRN Other, CIWA-Ar score 16-25, repeat CIWA-Ar in 60 minutes. Assess and record Level of consciousness and Respiratory Rate just prior to each dose of LORazepam and 15 minutes after each dose of LORazepam. Hold LORazepam for Respiratory Rate less than 12, somnolent/inability to arouse. Use PO if patient able to tolerate. Notify provider if 2 doses are given within 2 hours., Starting on Thu05/11/23 at 1842, Until Thu05/12/23 at 2010, For 6 days LORAzepam (Ativan) tab 4 mg 4 mg, Oral, Q1H PRN Other, CIWA-Ar Score greater than 25, repeat CIWA-Ar in 60 minutes. Assess and record Level of consciousness and Respiratory Rate just prior to each dose of LORazepam and 15 minutes after each dose of LORazepam. Hold LORazepam for Respiratory Rate less than 12, somnolent/inability to arouse. Use PO if patient able to tolerate. Notify provider if 2 doses are given within 2 hours., Starting on Thu05/11/23 at 1842, Until Thu05/12/23 at 2010, For 6 days losartan (Cozaar) tab 100 mg 100 mg, Oral, Daily(AM), First dose on Thu05/12/23 at 0900, Until Discontinued Given 05/12/2023 8:42 AM EDT 100 mg magnesium chloride ER (Mag-64) tab 64 mg 64 mg, Oral, BID (.AM/PM), First dose on Thu05/11/23 at 2100, Until Discontinued, Each tablet contains 64 mg elemental Magnesium Due to various manufacturers, tablets labeled 70mg are considered to be equivalent Given 05/12/2023 8:41 AM EDT 64 mg Given 05/11/2023 7:45 PM EDT 64 mg multivitamin (Mvi) 1 Tablet 1 Tablet, Oral, DAILY NOON, First dose on Thu05/12/23 at 1200, Until Discontinued, Post-op Given 05/12/2023 11:26 AM EDT 1 Tablet ondansetron (Zofran) inj 4 mg 4 mg, IV Push, Q6H PRN Other, May use for nausea or vomiting if patient unable to take oral ondansetron, Starting on Thu05/11/23 at 1627, Until Thu05/12/23 at 2010, Post-op ondansetron ODT (Zofran) tab 4 mg 4 mg, On Tongue, Q6H PRN Nausea, Vomiting, Starting on Thu05/11/23 at 1627, Until Thu05/12/23 at 2010, Post-op povidone-iodine nasal swab 1 Swab 1 Swab, Nasal, PREOP, First dose on Thu05/11/23 at 1215, Last dose on Thu05/11/23 at 1215, For 1 dose, Tilt the bottle slightly, dip one swab into solution and stir vigorously for 10 seconds. Withdraw the swab slowly to avoid wiping solution off during removal. Insert swab comfortably into one nostril and rotate for 15 seconds, covering all surfaces. Then focus on the inside tip of nostril and rotate for an additional 15 seconds. Using a new swab, Repeat above steps in the other nostril (Swab 2). Repeat the application in both nostrils using a fresh swab each times (Swab 3 and 4)., Pre-Op Given 05/11/2023 12:15 PM EDT 1 Swab Othe r-Specify Pregabalin (Lyrica) cap 150 mg 150 mg, Oral, PREOP, First dose on Thu05/11/23 at 1215, Last dose on Thu05/11/23 at 1215, For 1 dose, Reduce dose as below for CrCl Level: CrCl less than 30 ml/min = 50 mg preop CrCl 30 - 60 ml/min = 150 mg preop CrCl greater than 60 ml/min = 300 mg preop Do not use with gabapentin. Administer 60 minutes prior to OR., Pre-Op Given 05/11/2023 12:05 PM EDT 150 mg Saline (Archer) nasal spray 1 [place], Nasal, PRN Congestion, Other, rhinorrhea, Starting on Thu05/12/23 at 0828, Until Thu05/12/23 at 2011 sodium chloride 0.9 % flush peripheral chris 3 mL 3 mL, IV Push, QSHIFT, First dose on Thu05/11/23 at 1715, Until Discontinued, Do not flush if lock, PICC, or central line not in place; IV infusing or unable to flush., Post-op Given 05/12/2023 8:47 AM EDT 3 mL Given 05/11/2023 11:54 PM EDT 3 mL tolterodine LA ER (Detrol LA) cap 4 mg 4 mg, Oral, Daily(AM), First dose on Thu05/12/23 at 0900, Until Discontinued, This med should NOT be Crushed or Chewed Given 05/12/2023 8:42 AM EDT 4 mg traMADol (Ultram) tab 50 mg 50 mg, Oral, Q6H, First dose on Thu05/12/23 at 0600, Last dose on Thu05/17/23 at 0000, For 5 days, Post-op Given 05/12/2023 11:26 AM EDT 50 mg Given 05/12/2023 6:03 AM EDT 50 mg traMADol ER (Ultram ER) tab 200 mg 200 mg, Oral, PREOP, First dose on Thu05/11/23 at 1215, Last dose on Thu05/11/23 at 1215, For 1 dose, Administer 60 minutes prior to OR, Pre-Op Given 05/11/2023 12:05 PM EDT 200 mg Warfarin Sodium (Coumadin) tab 10 mg 10 mg, Oral, QPM-1999, First dose on Thu05/11/23 at 1999, Last dose on Thu05/11/23 at 1999, For 1 day, WASTE INFO: Return packaging and waste medication in zip lock bag to pharmacy - [facility] container. Given 05/11/2023 7:45 PM EDT 10 mg Warfarin Sodium (Coumadin) tab 7.5 mg 7.5 mg, Oral, QPM-1999, First dose on Thu05/12/23 at 1999, Last dose on Thu05/12/23 at 1999, For 1 day, WASTE INFO: Return packaging and waste medication in zip lock bag to pharmacy - PB container. documented in this encounter Active and Recently Administered Medications Times are shown in EDT. Scheduled Medication Order 05/10/2023 05/11/2023 05/12/2023 Acetaminophen (Tylenol) tab 975 mg (COMPLETED) 975 mg, Oral, PREOP, First dose on Thu05/11/23 at 1215, Last dose on Thu05/11/23 at 1215, For 1 dose, Maximum 4 g acetaminophen/day. Avoid in patients with severe hepatic impairment or severe active liver disease. Administer 60 minutes prior to OR., Pre-Op 1205 (Given - Provider: Nohelia Rausch RN) Acetaminophen (Tylenol) tab 975 mg 975 mg, Oral, Q6H, First dose on Thu05/11/23 at 1800, Last dose on Thu05/16/23 at 1200, For 5 days, Maximum 4 g acetaminophen/day. Avoid in patients with severe hepatic impairment or severe active liver disease. Use for 5 days., Post-op 1830 (Given - Provider: Clarita Linn RN)2354 (Given - Provider: Alessia Mccallum, RN) 0603 (Given - Provider: Alessia Mccallum, RN)1126 (Given - Provider: Clarita Linn, EBONIE) amiodarone (Cordarone) tab 200 mg 200 mg, Oral, Daily(AM), First dose on Thu05/12/23 at 0900, Until Discontinued 0841 (Given - Provid er: Clarita Linn RN) amLODIPine (Norvasc) tab 5 mg 5 mg, Oral, Daily(AM), First dose on Thu05/12/23 at 0900, Until Discontinued 0841 (Given - Provid er: Clarita Linn RN) aspirin enteric coated tab 81 mg 81 mg, Oral, Daily(AM), First dose on Thu05/12/23 at 0900, Until Discontinued, This med should NOT be Crushed or Chewed 0841 (Given - Provid er: Clarita Linn RN) atorvaSTATin (Lipitor) tab 80 mg 80 mg, Oral, Daily(AM), First dose on Thu05/12/23 at 0900, Until Discontinued 0842 (Given - Provid er: Clarita Linn RN) ceFAZolin in dextrose (Ancef) ivpb 2 g (COMPLETED) 2 g, IV Piggyback, PREOP, 1 dose, First dose on Thu05/11/23 at 1215, Administer 60 minutes prior to skin incision, Pre-Op 1409 (Given - Provider: CARLA Manuel) ceFAZolin in dextrose (Ancef) ivpb 2 g (COMPLETED) 2 g, IV Piggyback, Q8H, 2 doses, First dose on Thu05/11/23 at 2200, Last dose on Thu05/12/23 at 0600, Post-op 2117 (New Bag - Provider: Alessia Mccallum, EBONIE)2146 (Stopped - Provider: Alessia Mccallum, RN) 0606 (New Bag - Provider: Alessia Mccallum, EBONIE)0636 (Stopped - Provider: Alessia Mccallum, RN) celecoxib (CeleBREX) cap 200 mg (COMPLETED) 200 mg, Oral, PREOP, First dose on Thu05/11/23 at 1215, Last dose on Thu05/11/23 at 1215, For 1 dose, Contraindicated in setting of CABG surgery. Do not use in patients with CrCl < 60, receiving ketorolac, bone fracture. Administer 60 minutes prior to OR., Pre-Op 1205 (Given - Provider: Nohelia Rausch RN) Chlorhexidine Gluconate (Scrub-Stat) 2% external solution External, PREOP, First dose on Thu05/11/23 at 1215, Last dose on Thu05/12/23 at 0600, For 2 doses, Complete chlorhexidine wash of entire body, once the evening prior to surgery and once the morning of surgery prior to transporting patient to the pre-operative area , Pre-Op 1215 (Given - Provider: Nohelia Rausch RN) 0600 (Not Given - Provider: Alessia Mccallum RN - Reason: Parameter(s) Not Met) CYANOCOBALAMIN (vitamin B-12) tab 1,000 mcg 1,000 mcg, Oral, Daily(AM), First dose on Thu05/12/23 at 0900, Until Discontinued 08 (Given - Provid er: Clarita Linn RN) Docusate Sodium (Colace) cap 100 mg 100 mg, Oral, BID (.AM/PM), First dose on Thu05/11/23 at 2100, Until Discontinued, For oral administration ONLY, if route of administration is other than oral and alternative product must be ordered., Post-op 194 (Not Given - Provider: Alessia Mccallum RN - Reason: Refused-Notify Provider) 0847 (Not Given - Provider: Clarita Linn RN - Reason: Refused-Notify Provider) DULoxetine (Cymbalta) DR cap 120 mg 120 mg, Oral, Daily(AM), First dose on Thu05/12/23 at 0900, Until Discontinued 08 (Given - Provid er: Clarita Linn RN) Enoxaparin (Lovenox) inj 100 mg 100 mg, Subcutaneous, Q12H, First dose (after last modification) on Thu05/12/23 at 0900, Last dose on Thu06/08/23 at 2100, For 28 days, If patient is on warfarin, inform provider if daily INR value is 2 or greater!, Post-op 0848 (Given - Provid er: Clarita Linn RN) Ezetimibe (Zetia) tab 10 mg 10 mg, Oral, Daily(AM), First dose on Thu05/12/23 at 0900, Until Discontinued 840 (Given - Provid er: Clarita Linn RN) Ferrous Sulfate (Feosol) tab 325 mg 325 mg, Oral, EVERY OTHER DAY, First dose on Thu05/12/23 at 0800, Until Discontinued, This med should NOT be Crushed or Chewed 08 (Given - Provid er: Clarita Linn RN) folic acid tab 1 mg 1 mg, Oral, Daily(AM), First dose on Thu05/12/23 at 0900, Until Discontinued, Post-op 0842 (Given - Provid er: Clarita Linn RN) Furosemide (Lasix) tab 40 mg 40 mg, Oral, Daily(AM), First dose on Thu05/12/23 at 0900, Until Discontinued, In the morning. 0841 (Given - Provid er: Clarita Linn RN) insulin aspart (NovoLOG) inj Subcutaneous, W/MEALS AND HS, First dose on Thu05/11/23 at 2200, Until Discontinued, MEDIUM DOSE (Usual [...] suggested insulin dose and call covering provider. 214 (Given - Provider: Alessia Mccallum RN) 0738 (No Insulin - Provider: Clarita Linn RN - Reason: Parameter(s) Not Met)1123 (No Insulin - Provider: Clarita Linn RN - Reason: Parameter(s) Not Met) Iron Sucrose (Venofer) 300 mg in NSS 250 mL ivpb 300 mg, IV Piggyback, Daily(AM), 2 doses, First dose on Thu05/12/23 at 0900, Last dose on Thu05/13/23 at 0900, Administer over 90 Minutes 1133 (New Bag - Provider: Clarita Linn RN - Comment: just received from pharmacy) losartan (Cozaar) tab 100 mg 100 mg, Oral, Daily(AM), First dose on Thu05/12/23 at 0900, Until Discontinued 0842 (Given - Provid er: Clarita Linn RN) magnesium chloride ER (Mag-64) tab 64 mg 64 mg, Oral, BID (.AM/PM), First dose on Thu05/11/23 at 2100, Until Discontinued, Each tablet contains 64 mg elemental Magnesium Due to various manufacturers, tablets labeled 70mg are considered to be equivalent 194 (Given - Provider: Alessia Mccallum RN) 0841 (Given - Provider: Clarita Linn RN) metoprolol succinate XL (toPROL XL) tab 25 mg 25 mg, Oral, Daily(AM), First dose on Thu05/12/23 at 0900, Until Discontinued, Hold for HR less than 60 or SBP below 100 and notify service if dose is held This med should NOT be Crushed or Chewed. 0842 (Not Given - Provider: Clarita Linn, EBONIE - Reason: Parameter(s) Not Met) multivitamin (Mvi) 1 Tablet 1 Tablet, Oral, DAILY NOON, First dose on Thu05/12/23 at 1200, Until Discontinued, Post-op 1126 (Given - Provid er: Clarita Linn RN) povidone-iodine nasal swab 1 Swab (COMPLETED) 1 Swab, Nasal, PREOP, First dose on Thu05/11/23 at 1215, Last dose on Thu05/11/23 at 1215, For 1 dose, Tilt the bottle slightly, dip one swab into solution and stir vigorously for 10 seconds. Withdraw the swab slowly to avoid wiping solution off during removal. Insert swab comfortably into one nostril and rotate for 15 seconds, covering all surfaces. Then focus on the inside tip of nostril and rotate for an additional 15 seconds. Using a new swab, Repeat above steps in the other nostril (Swab 2). Repeat the application in both nostrils using a fresh swab each times (Swab 3 and 4)., Pre-Op 1215 (Given - Provider: Nohelia Rausch RN - Comment: bilateral nares) Pregabalin (Lyrica) cap 150 mg (COMPLETED) 150 mg, Oral, PREOP, First dose on Thu05/11/23 at 1215, Last dose on Thu05/11/23 at 1215, For 1 dose, Reduce dose as below for CrCl Level: CrCl less than 30 ml/min = 50 mg preop CrCl 30 - 60 ml/min = 150 mg preop CrCl greater than 60 ml/min = 300 mg preop Do not use with gabapentin. Administer 60 minutes prior to OR., Pre-Op 1205 (Given - Provider: Nohelia Rausch, EBONIE) senna (Senokot) 2 Tablet 2 Tablet, Oral, Daily(AM), First dose on Thu05/12/23 at 0900, Until Discontinued, hold if patient have loose stool or frequent bowel movements, Post-op 0847 (Not Given - Provider: Clarita Linn RN - Reason: Refused-Notify Provider) sodium chloride 0.9 % flush peripheral chris 3 mL 3 mL, IV Push, QSHIFT, First dose on Thu05/11/23 at 1715, Until Discontinued, Do not flush if lock, PICC, or central line not in place; IV infusing or unable to flush., Post-op 1715 (Not Given - Provider: Clarita Linn RN - Reason: Parameter(s) Not Met - Comment: fluids infusing)2354 (Given - Provider: Alessia Mccallum, RN) 0847 (Given - Provider: Clarita Linn RN)1600 (Not Given - Provider: Clarita Linn RN - Reason: Other- Please add reason in Comments - Comment: discontinued for d/c) tolterodine LA ER (Detrol LA) cap 4 mg 4 mg, Oral, Daily(AM), First dose on Thu05/12/23 at 0900, Until Discontinued, This med should NOT be Crushed or Chewed 0842 (Given - Provid er: Clarita Linn RN) traMADol (Ultram) tab 50 mg 50 mg, Oral, Q6H, First dose on Thu05/12/23 at 0600, Last dose on Thu05/17/23 at 0000, For 5 days, Post-op 0603 (Given - Provid er: Alessia Mccallum, RN)1126 (Given - Provider: Clarita Linn RN) traMADol ER (Ultram ER) tab 200 mg (COMPLETED) 200 mg, Oral, PREOP, First dose on Thu05/11/23 at 1215, Last dose on Thu05/11/23 at 1215, For 1 dose, Administer 60 minutes prior to OR, Pre-Op 1205 (Given - Provider: Nohelia Rausch, EBONIE) tranexamic acid 1000 mg in 100 mL ivpb (COMPLETED) 1,000 mg, Intravenous, ONCE, 1 dose, On Thu05/11/23 at 1215, Give dose 15 minutes prior to skin incision., Pre-Op 1415 (Given - Provider: CARLA Manuel) tranexamic acid 1000 mg in 100 mL ivpb (COMPLETED) 1,000 mg, Intravenous, ONCE, 1 dose, On Thu05/11/23 at 1215, Give one dose at closure of skin incision, Pre-Op 1622 (Given - Provider: Johnson Pham CRNA) Vitamin C (Ascorbic Acid) tab 250 mg 250 mg, Oral, BID (NOON, 1700), First dose on Thu05/11/23 at 1830, Until Discontinued, Post-op 1830 (OR/Procedure - Provider: Clarita Linn, EBONIE) 1200 (Not Given - Provider: Clarita Linn, EBONIE - Reason: Refused-Notify Provider) warfarin check daily dose (PHARMACIST MANAGED) [id number], First dose on Thu05/11/23 at 1715, Until Discontinued, Routine, Contact the pharmacy if there is not a warfarin dose entered by 1500 and document with whom it was discussed., Post-op 1715 (Order Check Addressed - Provider: Clarita Linn, EBONIE) 1500 (Order Check Addressed - Provider: Clarita Linn, EBONIE) Warfarin Sodium (Coumadin) tab 10 mg (COMPLETED) 10 mg, Oral, QPM-1999, First dose on Thu05/11/23 at 1999, Last dose on Thu05/11/23 at 1999, For 1 day, WASTE INFO: Return packaging and waste medication in zip lock bag to pharmacy - [facility] container. 194 (Given - Provider: Alessia Mccallum RN) Warfarin Sodium (Coumadin) tab 7.5 mg 7.5 mg, Oral, QPM-1999, First dose on Thu05/12/23 at 1999, Last dose on Thu05/12/23 at 1999, For 1 day, WASTE INFO: Return packaging and waste medication in zip lock bag to pharmacy - [facility] container. Continuous Medication Order 05/10/2023 05/11/2023 05/12/2023 isolyte-S pH 7.4 infusion (CANCELED) Intravenous, at 75 mL/hr, Plasma-LYTE 148, isolyte-S, and isolyte-S pH 7.4 are considered equivalent - including for MAR barcode scanning., CONTINUOUS, Starting on Thu05/11/23 at 1215, Until Thu05/11/23 at 1847, Pre-Op 1231 (New Bag - Provider: Nohelia Rausch RN)1350 (Continue from Pre-Op - Provider: CARLA Manuel)1459 (Paused - Provider: Nelda Forde CRNA - Comment: Switch to gravity)1500 (Restarted - Provider: Nelda Forde CRNA)1530 (Anes Intra-Op Fluid - Provider: Nelda Forde CRNA)1610 (Anes Intra-Op Fluid - Provider: Nelda Forde CRNA)1622 (Entry Error - Provider: Johnson Pham CRNA)1652 (Anes Intra-Op Fluid - Provider: Nelda Forde CRNA) isolyte-S pH 7.4 infusion (CANCELED) Intravenous, at 100 mL/hr, Plasma-LYTE 148, isolyte-S, and isolyte-S pH 7.4 are considered equivalent - including for MAR barcode scanning., CONTINUOUS, Starting on Thu05/11/23 at 1715, Until Thu05/11/23 at 1847, Post-op 1814 (New Bag - Provider: Oliverio Madrid RN)1814 (Rate Verify - Provider: Alessia Mccallum, EBONIE)2113 (Paused - Provider: Alessia Mccallum, EBONIE)214 (Restarted - Provider: Alessia Mccallum, EBONIE)2210 (Stopped - Provider: Alessia Mccallum, RN) PRN Medication Order 05/10/2023 05/11/2023 05/12/2023 BUPivacaine-EPINEPHrine (PF) (Sensorcaine-EPINEPHrine) 0.5-1:819149 % inj (CANCELED) ONCE PRN INTRA PROCEDURE, Starting on Thu05/11/23 at 1621, Until Thu05/11/23 at 1711, Intra-Op 1621 (Given - Provider: Forrest Davidson, ) dexAMETHasone Sodium Phosphate (Decadron) 4 MG/ML inj 4 mg 4 mg, IV Push, ONCE PRN Nausea, Starting on Thu05/11/23 at 1629, Until Thu05/12/23 at 2011, For 1 dose, PROTECT FROM LIGHT, Post-op dextrose 50 % inj 25 mL 25 mL, IV Push, PRN Hypoglycemia, Other, For blood glucose 54 - 69 mg/dL or 70 - 100 mg/dL with symptoms AND patient is unresponsive, NPO, OR unable to swallow, Starting on Thu05/11/23 at 1843, Until Thu05/12/23 at 2010, Administer IV. Recheck blood glucose after 15 minutes. Notify provider. dextrose 50 % inj 50 mL 50 mL, IV Push, PRN Hypoglycemia, Other, For blood glucose below 54 mg/dL AND patient unresponsive, NPO, OR unable to swallow, Starting on Thu05/11/23 at 1843, Until Thu05/12/23 at 2010, Administer IV. Recheck blood glucose in 15 minutes. Notify provider. gentamicin 240 mg in sodium chloride IR 0.9 % 3,000 mL irrigation (CANCELED) ONCE PRN INTRA PROCEDURE, Starting on Thu05/11/23 at 1423, Until Thu05/11/23 at 1711, Intra-Op 1423 (Given - Provider: Forrest Davidson, ) glucagon (Glucagen) inj 1 mg 1 mg, Intramuscular, PRN Hypoglycemia, Other, If patient is unresponsive, or NPO and has no IV access, Starting on Thu05/11/23 at 1843, Until Thu05/12/23 at 2010, NPO and no IV access with either [...] patient alert WITH difficulty chewing/swallowing, Starting on Thu05/11/23 at 1843, Until Thu05/12/23 at 2010, Administer gel. Recheck blood glucose after 15 minutes. Notify provider. 37.5 gram tube = 15 grams glucose = 1 each Glucose (Glutose 15) 40 % gel 30 g of glucose 30 g of glucose, Oral, PRN Hypoglycemia (low sugar), Other, For blood glucose below 54 mg/dL AND patient alert WITH difficulty chewing/swallowing, Starting on Thu05/11/23 at 1843, Until Thu05/12/23 at 2010, Administer gel. Recheck blood glucose after 15 minutes. Notify provider. 37.5 gram tube = 15 grams glucose = 1 each glucose chew tab 16 g 16 g, Oral, PRN Hypoglycemia, Other, For blood glucose 54 - 69 mg/dL or 70 - 100 mg/dL with symptoms and patient alert without difficulty chewing/swallowing., Starting on Thu05/11/23 at 1843, Until Thu05/12/23 at 2010 HYDROmorphone (Dilaudid) inj 0.5 mg 0.5 mg, IV Push, Q2H PRN Pain, Severe, Starting on Thu05/11/23 at 1629, Until Thu05/12/23 at 2010, Do not use with SENIOR LICENSING MANAGER (unless directed by provider). May use if patient unable to take oral pain medications., Post-op LORazepam (Ativan) inj 1 mg(Linked Group 1) 1 mg, IV Push, Q1H PRN Other, CIWA-Ar score 8-15, repeat CIWA-Ar in 60 minutes. Assess and record Level of consciousness and Respiratory Rate just prior to each dose of LORazepam and 15 minutes after each dose of LORazepam. Hold LORazepam for Respiratory Rate less than 12, somnolent/inability to arouse. Use if patient unable to take PO. Notify provider if 2 doses are given within 2 hours., Starting on Thu05/11/23 at 1842, Until Thu05/12/23 at 2010, For 6 days, MUST FURTHER DILUTE FOR IV PUSH WITH EQUAL VOLUME OF NSS LORazepam (Ativan) inj 2 mg(Linked Group 2) 2 mg, IV Push, Q1H PRN Other, CIWA-Ar score 16-25, repeat CIWA-Ar in 60 minutes. Assess and record Level of consciousness and Respiratory Rate just prior to each dose of LORazepam and 15 minutes after each dose of LORazepam. Hold LORazepam for Respiratory Rate less than 12, somnolent/inability to arouse. Use if patient unable to take PO. Notify provider if 2 doses are given within 2 hours., Starting on Thu05/11/23 at 1842, Until Thu05/12/23 at 2010, For 6 days, MUST FURTHER DILUTE FOR IV PUSH WITH EQUAL VOLUME OF NSS LORazepam (Ativan) inj 4 mg(Linked Group 3) 4 mg, IV Push, Q1H PRN Other, CIWA-Ar Score greater than 25, repeat CIWA-Ar in 60 minutes. Assess and record Level of consciousness and Respiratory Rate just prior to each dose of LORazepam and 15 minutes after each dose of LORazepam. Hold LORazepam for Respiratory Rate less than 12, somnolent/inability to arouse. Use if patient unable to take PO. Notify provider if 2 doses are given within 2 hours., Starting on Thu05/11/23 at 1842, Until Thu05/12/23 at 2010, For 6 days, MUST FURTHER DILUTE FOR IV PUSH WITH EQUAL VOLUME OF NSS LORazepam (Ativan) tab 1 mg(Linked Group 1) 1 mg, Oral, Q1H PRN Other, CIWA-Ar score 8-15, repeat CIWA-Ar in 60 minutes. Assess and record Level of consciousness and Respiratory Rate just prior to each dose of LORazepam and 15 minutes after each dose of LORazepam. Hold LORazepam for Respiratory Rate less than 12, somnolent/inability to arouse. Use PO if patient able to tolerate. Notify provider if 2 doses are given within 2 hours., Starting on Thu05/11/23 at 1842, Until Thu05/12/23 at 2010, For 6 days LORAzepam (Ativan) tab 2 mg(Linked Group 2) 2 mg, Oral, Q1H PRN Other, CIWA-Ar score 16-25, repeat CIWA-Ar in 60 minutes. Assess and record Level of consciousness and Respiratory Rate just prior to each dose of LORazepam and 15 minutes after each dose of LORazepam. Hold LORazepam for Respiratory Rate less than 12, somnolent/inability to arouse. Use PO if patient able to tolerate. Notify provider if 2 doses are given within 2 hours., Starting on Thu05/11/23 at 1842, Until Thu05/12/23 at 2010, For 6 days LORAzepam (Ativan) tab 4 mg(Linked Group 3) 4 mg, Oral, Q1H PRN Other, CIWA-Ar Score greater than 25, repeat CIWA-Ar in 60 minutes. Assess and record Level of consciousness and Respiratory Rate just prior to each dose of LORazepam and 15 minutes after each dose of LORazepam. Hold LORazepam for Respiratory Rate less than 12, somnolent/inability to arouse. Use PO if patient able to tolerate. Notify provider if 2 doses are given within 2 hours., Starting on Thu05/11/23 at 1842, Until Thu05/12/23 at 2010, For 6 days melatonin tab 3 mg 3 mg, Oral, HS PRN Sleep, Starting on Thu05/11/23 at 1627, Until Thu05/12/23 at 2010, Post-op Menthol ([place]) cough drop 1 Lozenge 1 Lozenge, Oral, Q2H PRN Sore throat, Starting on Thu05/11/23 at 1627, Until Thu05/12/23 at 2010, Post-op naloxone (Narcan) 0.4 MG/ML inj 0.08 mg 0.08 mg, IV Push, PRN Other, If patient is over sedated or Respiratory Rate less than 8, Starting on Thu05/11/23 at 1629, Until Thu05/12/23 at 2010, Call provider if patient is over sedated or Respiratory Rate is less than 8, Post-op ondansetron (Zofran) inj 4 mg(Linked Group 4) 4 mg, IV Push, Q6H PRN Other, May use for nausea or vomiting if patient unable to take oral ondansetron, Starting on Thu05/11/23 at 1627, Until Thu05/12/23 at 2010, Post-op ondansetron ODT (Zofran) tab 4 mg(Linked Group 4) 4 mg, On Tongue, Q6H PRN Nausea, Vomiting, Starting on Thu05/11/23 at 1627, Until Thu05/12/23 at 2010, Post-op oxyCODONE (Oxy IR) tab 10 mg 10 mg, Oral, Q4H PRN Pain, Severe, Starting on Thu05/11/23 at 1629, Until Thu05/12/23 at 2010, Hold for somnolence or respiratory rate less than 10, Post-op oxyCODONE (Oxy IR) tab 5 mg 5 mg, Oral, Q4H PRN Pain, Moderate, Starting on Thu05/11/23 at 1629, Until Thu05/12/23 at 2010, Hold for somnolence or respiratory rate less than 10, Post-op promethazine (Phenergan) tab 12.5 mg 12.5 mg, Oral, Q6H PRN Nausea, Starting on Thu05/11/23 at 1629, Until Thu05/12/23 at 2010, Post-op Saline ([place]) nasal spray 1 [place], Nasal, PRN Congestion, Other, rhinorrhea, Starting on Thu05/12/23 at 0828, Until Thu05/12/23 at 2010 vancomycin (Vancocin) inj (CANCELED) ONCE PRN INTRA PROCEDURE, Starting on Thu05/11/23 at 1621, Until Thu05/11/23 at 1711, Intra-Op 1621 (Given - Provider: Forrest Davidson DO) Linked Groups Order Group 1: LORazepam (Ativan) tab 1 mgJump to med 1 mg, Oral, Q1H PRN Other, CIWA-Ar score 8-15, repeat CIWA-Ar in 60 minutes. Assess and record Level of consciousness and Respiratory Rate just prior to each dose of LORazepam and 15 minutes after each dose of LORazepam. Hold LORazepam for Respiratory Rate less than 12, somnolent/inability to arouse. Use PO if patient able to tolerate. Notify provider if 2 doses are given within 2 hours., Starting on Thu05/11/23 at 1842, Until Thu05/12/23 at 2010, For 6 days Or LORazepam (Ativan) inj 1 mgJump to med 1 mg, IV Push, Q1H PRN Other, CIWA-Ar score 8-15, repeat CIWA-Ar in 60 minutes. Assess and record Level of consciousness and Respiratory Rate just prior to each dose of LORazepam and 15 minutes after each dose of LORazepam. Hold LORazepam for Respiratory Rate less than 12, somnolent/inability to arouse. Use if patient unable to take PO. Notify provider if 2 doses are given within 2 hours., Starting on Thu05/11/23 at 1842, Until Thu05/12/23 at 2010, For 6 days, MUST FURTHER DILUTE FOR IV PUSH WITH EQUAL VOLUME OF NSS Group 2: LORAzepam (Ativan) tab 2 mgJump to med 2 mg, Oral, Q1H PRN Other, CIWA-Ar score 16-25, repeat CIWA-Ar in 60 minutes. Assess and record Level of consciousness and Respiratory Rate just prior to each dose of LORazepam and 15 minutes after each dose of LORazepam. Hold LORazepam for Respiratory Rate less than 12, somnolent/inability to arouse. Use PO if patient able to tolerate. Notify provider if 2 doses are given within 2 hours., Starting on Thu05/11/23 at 1842, Until Thu05/12/23 at 2010, For 6 days Or LORazepam (Ativan) inj 2 mgJump to med 2 mg, IV Push, Q1H PRN Other, CIWA-Ar score 16-25, repeat CIWA-Ar in 60 minutes. Assess and record Level of consciousness and Respiratory Rate just prior to each dose of LORazepam and 15 minutes after each dose of LORazepam. Hold LORazepam for Respiratory Rate less than 12, somnolent/inability to arouse. Use if patient unable to take PO. Notify provider if 2 doses are given within 2 hours., Starting on Thu05/11/23 at 1842, Until Thu05/12/23 at 2010, For 6 days, MUST FURTHER DILUTE FOR IV PUSH WITH EQUAL VOLUME OF NSS Group 3: LORAzepam (Ativan) tab 4 mgJump to med 4 mg, Oral, Q1H PRN Other, CIWA-Ar Score greater than 25, repeat CIWA-Ar in 60 minutes. Assess and record Level of consciousness and Respiratory Rate just prior to each dose of LORazepam and 15 minutes after each dose of LORazepam. Hold LORazepam for Respiratory Rate less than 12, somnolent/inability to arouse. Use PO if patient able to tolerate. Notify provider if 2 doses are given within 2 hours., Starting on Thu05/11/23 at 1842, Until Thu05/12/23 at 2010, For 6 days Or LORazepam (Ativan) inj 4 mgJump to med 4 mg, IV Push, Q1H PRN Other, CIWA-Ar Score greater than 25, repeat CIWA-Ar in 60 minutes. Assess and record Level of consciousness and Respiratory Rate just prior to each dose of LORazepam and 15 minutes after each dose of LORazepam. Hold LORazepam for Respiratory Rate less than 12, somnolent/inability to arouse. Use if patient unable to take PO. Notify provider if 2 doses are given within 2 hours., Starting on Thu05/11/23 at 1842, Until Thu05/12/23 at 2010, For 6 days, MUST FURTHER DILUTE FOR IV PUSH WITH EQUAL VOLUME OF NSS Group 4: ondansetron ODT (Zofran) tab 4 mgJump to med 4 mg, On Tongue, Q6H PRN Nausea, Vomiting, Starting on Thu05/11/23 at 1627, Until Thu05/12/23 at 2010, Post-op Or ondansetron (Zofran) inj 4 mgJump to med 4 mg, IV Push, Q6H PRN Other, May use for nausea or vomiting if patient unable to take oral ondansetron, Starting on Thu05/11/23 at 1627, Until Thu05/12/23 at 2010, Post-op documented in this encounter Advance Directives Latest Code Status on File Code Status Date Activated Date Inactivated Comments Full Code 05/11/2023 4:30 PM 05/12/2023 8:11 PM Thi s order reflects the patients wishes and were consensually agreed upon. Question Answer Comments Discussion of Advance Directives occurred with: Patient Care Teams Hedge Fund Principal Relationship Specialty Start Date End Date Hilario ANDRADE, Collette Kebede MD [address] [place] [address] PCP - General Family Medicine 09/10/18 documented as of this encounter
--- OUTSIDE RECORDS SUMMARY | 2023-07-14 14:41 | External Medical Summary | Summary of Care ---
Author Name Unknown Organization [facility] Address [address] [place] [address] Phone [phone] Care Team Providers Care Sales And Management Trainee Name Role Phone Hilario ANDRADE MD, Shiva Kebede Primary Care Provider [phone] Reason for Visit * Reason Onset Date Comments Wound Care 05/16/2023 Encounter Details Date Type Department Care Team (Late st Contact Info) Description 05/16/2023 Telephone [facility] Orthopaedics [address] [facility] [place] [address] Laure Kuo MD [address] [place] [address] Wound Care (/) Allergies Active Allergy Reactions Criticality Noted Date Comments Bee Venom Edema Other 01/10/2016 Lisinopril Cough 09/04/2016 documented as of this encounter (statuses as of 05/16/2023) Medications Medication Sig Dispensed Refills Start Date [...] (5mg) ALL OTHER EVENINGS OR DIRECTED BY [facility]. 105 Tablet 3 07/18/2022 Active Multi [...] Sodium 100 MG/ML Injection Solution Prefilled Syringe (PopdustnoStandardNine) Inject 100 mg under the skin in the morning and 100 mg before bedtime. Do all this for 7 days. 14 mL 0 05/12/2023 3 Active Sennosides 8.6 MG Oral Tablet (Senokot) Take 2 Tablets by mouth in the morning. 140 Tablet 0 05/13/2023 Active oxyCODONE-Acetaminop hen 5-325 MG Oral Tablet (Percocet) Take 1 Tablet by mouth every 4 hours as needed for Pain, Severe. 30 Tablet 0 05/16/2023 Active oxyCODONE-Acetaminop hen 5-325 MG Oral Tablet (Percocet) Take 1 Tablet by mouth every 4 hours as needed for Pain, Severe. 30 Tablet 0 05/12/2023 3 Discontinue d(Refill) documented as of this encounter (statuses as of 05/16/2023) Active Problems Problem Noted Date Diagnosed Date Postoperative anemia due to acute blood loss S/P total knee arthroplasty, right 05/11/2023 Alcohol abuse 05/11/2023 Atherosclerosis of [place] co ronary artery without angina pectoris 09/10/2022 [...] as of this encounter (statuses as of 05/16/2023) Resolved Problems Problem Noted Date Diagnosed Date Resolved Date Atherosclerotic heart diseas e of [place] coronary artery with other forms of angina [...] as of this encounter (statuses as of 05/16/2023) Immunizations Name Administration Dates Next Due COVID-19 mRNA, LNP-s, No Pre serve, 2-Dose Series (PinPay) 05/16/2021,09/23/2020,08/26/2020 Covid-19, Mrna, Lnp-s, Pf, B ivalent, 30 Mcg, IM, 12 yrs and above (PinPay) 05/09/2022 Pneumococcal Conjugate Vacc, 13 Valent (Prevnar) [...] encounter Miscellaneous Notes * Telephone Encounter - Laure Kuo MD - 05/16/2023 4:45 PM EDT Are seen the phone call from the home health nurse for Nenita. She reports that the madisyn wound VAC is saturated due to wound drainage. I counseled her on removal of the madisyn, expression of any hematoma, dry dressing changes if there continues to be drainage and or placement of the madisyn dressing if the wound is dry. She also reports the Nenita is running out of her Percocet for pain control. We willattempt to refill this prescription. We also discussed possible early follow-up this week if there continues to be drainage at the surgical wound. Over the weekend, she will continue to perform dressing changes in attempt to maintain clean and dry wound. We discussed red flag symptoms such as fevers, chills, worsening or uncontrolled pain, continued drainage, and inability to ambulate should prompt presentation to the nearest emergency department. documented in this encounter Plan of Treatment Upcoming Encounters Date Type Department Care Team (Late st Contact Info) Description 05/20/2023 6:15 PM EDT Anticoagulation Pharmacy Call Center [address] [place] [address] [facility] [address] [place] [address] 05/21/2023 1:00 PM EDT Office Visit Orthopaedics [facility] [address] [place] [address] Forrest Davidson, [address] [place] [address] 09/30/2023 9:20 AM EDT Office Visit Family Practice [place] [address] [place] [address] [address] Shiva Rich III, MD [facility] [address] [address] 10/01/2023 3:15 PM EDT Office Visit Hematology/Oncology [facility] [place] [address] Efraín Leone MD [facility] [place] [address] [address] 11/12/2023 11:20 AM EDT Office Visit Dermatology [place] [address] [place] [address] [address] Margarita Figueredo PA-C [address] [place] [phone] 02/25/2024 9:30 AM EDT Imaging Radiology [address], [place] [address] [place] [address] 04/21/2024 10:30 AM EDT Office Visit Sleep Disorders Ctr [facility] [address] [place] [phone] Viktoriya White CRNP [address] [place] [address] Scheduled Procedures Name Priority Associated Diagnoses Date/Ti [...] this encounter Medical Devices Implanted Type Area Garment Manufacturer Device Identifier Shelf Expiration Date Model / Serial / Lot Knee X3 Ins Pos Cs Sz4 11 - Sn/A - [id number] Implanted:Qty: 1 on 05/11/2023 by Forrest Davidson, [...] Advance Directives occurred with: Patient Care Teams Sales And Management Trainee Relationship Specialty Start Date End Date Shiva Rich III, MD [address] [facility] [place] [address] PCP - General Family Medicine 09/10/18 documented as of this encounter
--- OUTSIDE RECORDS SUMMARY | 2023-07-14 14:41 | External Medical Summary | Summary of Care ---
Author Name Unknown Organization [facility] Address [address] [facility] [address] Phone [phone] Care Team Providers Care Supervisor Fruit Grading Name Role Phone Hilario ANDRADE MD, Shiva Kebede Primary Care Provider [phone] Encounter Details Date Type Department Care Team (Late st Contact Info) Description 05/13/2023 Telephone Orthopaedics, [place] [address] [place] [address] [place] [address] OsBalta marrero PA-C [address] [place] [address] [place] [address] Allergies Active Allergy Reactions Criticality Noted Date [...] right 05/11/2023 Alcohol abuse 05/11/2023 Atherosclerosis of [place] co ronary artery without angina pectoris [...] Resolved Date Atherosclerotic heart diseas e of [place] coronary artery with other forms of [...] mRNA, LNP-s, No Pre serve, 2-Dose Series (ma[place]ait) 05/16/2021,09/23/2020,08/26/2020 Covid-19, Mrna, Lnp-s, Pf, B ivalent, [...] Telephone Encounter - Balta Hyde PA-C - 05/13/2023 10:52 AM EDT Patient contacted via telephone today to check in with how she is coming along after her knee replacement surgery. Nenita is postop day 2 status post total right knee arthroplasty. She reports that she is doing quite well today, and reports that other than right knee soreness, she is coming along without any significant issues. She denies dizziness, lightheadedness, or any other signs of symptomatic anemia or low hemoglobin. No reported fevers, chills, or night sweats. She reports that she has only utilized 2 doses of Percocet since her surgery. She does report that home health has contacted her, and will bevisiting her tomorrow morning. Patient was certainly urged to contact clinic with any issues, questions, concerns, and to seek medical attention should she experience symptoms related to infection or symptomatic postoperative anemia. Patient reports no significant issues, is comfortable with the plan, is appreciative of the call, and all questions were answered today. documented in this encounter Plan of Treatment Upcoming Encounters Date Type Department Care Team (Late st Contact Info) Description 05/21/2023 1:00 PM EDT Office Visit Orthopaedics [facility] [address] [place] [address] Forrest Davidson, [address] [place] [address] 09/30/2023 9:20 AM EDT Office Visit Family Practice [facility] [address] [place] [address] Shiva Rich III, MD 200 [facility] [place] [address] 10/01/2023 3:15 PM EDT Office Visit Hematology/Oncology [facility] [address] [place] [address] [address] Efraín Leone MD 200 [facility] [place] [address] 11/12/2023 11:20 AM EDT Office Visit Dermatology [facility] [address] [place] [address] [address] Margarita Figueredo PA-C 200 [facility] [place] [phone] 02/25/2024 9:30 AM EDT Imaging Radiology [address] [place] [address] 04/21/2024 10:30 AM EDT Office Visit Sleep Disorders Ctr [facility] [address] [place] [phone] Viktoriya White CRNP [address] [place] [address] Scheduled Procedures Name Priority Associated Diagnoses Date/Ti [...] this encounter Medical Devices Implanted Type Area Academic Program Specialist Device Identifier Shelf Expiration Date Model / Serial / Lot Knee X3 Ins Pos Cs Sz4 11 - Sn/A - [id number] Implanted:Qty: 1 on 05/11/2023 by Forrest Davidson, DO at OR [facility] Right: Knee FRANNIE : ORTHOPAEDICS 10/16/2027 [...] Directives occurred with: Patient Care Teams Supervisor Fruit Grading Relationship Specialty Start Date End Date Shiva Rich III, MD [address] [place] [address] PCP - General Family Medicine 09/10/18 documented as of this encounter
[2023-07-14 14:42] LABS: Albumin Globulin Ratio 1.1 (0.9-2); Albumin Level 3.7 gm/dl (3.4-5.0); BUN Creatinine Ratio 19.7 (10-20); Bilirubin,Total 0.8 mg/dl (0.2-1.0); Calcium 9.1 mg/dl (8.6-10.3); Creatinine Clr Calc Pharmacy 81.6 ml/min; Est GFR (African American) 93.4 ml/min; Est GFR (Non-African American) 80.6 ml/min; Globulin 3.4 gm/dl (2.5-4.0); Potassium 4.2 mmol/L (3.5-5.1); Total Protein 7.1 gm/dl (6.0-8.3)
--- OUTSIDE RECORDS SUMMARY | 2023-07-14 14:42 | External Medical Summary ---
Author Name Unknown Address Unknown Organization : Laboratory Report Ordering Provider Test Date Status ALMA PORTILLO 05/12/2023 07:15:49 Final Observation Date Value Abnormality Reference (Units ) Status Glucose Point of Care 05/12/2023 07:15:49 138 Above high normal 70-120 (mg/dL) Final Performing Location
--- OUTSIDE RECORDS SUMMARY | 2023-07-14 14:42 | External Medical Summary ---
Author Name Unknown Address Unknown Organization K1F:LABORATORY [facility] - [address] [place] [address] Laboratory Report Ordering Provider Test Date Status ALMA PORTILLO 05/12/2023 04:08:00 Final Warfarin Therapy
INR: 2 .0-3.0 conventional anticoagulation
INR: 2.5- 3.5 high intensity anticoagulation Observation Date Value Abnormality Reference (Units ) Status PT 05/12/2023 04:08:00 13.9 11.6-15.2 (seconds) Final INR 05/12/2023 04:08:00 1.1 0.8-1.2 Final Performing Location LABORATORY [facility] - [address] [place] [address]
--- OUTSIDE RECORDS SUMMARY | 2023-07-14 14:42 | External Medical Summary ---
Author Name Unknown Address Unknown Organization K1F:LABORATORY [facility] - [address] [place] [address] Laboratory Report Ordering Provider Test Date Status ALMA PORTILLO 05/11/2023 12:19:15 Final Warfarin Therapy
INR: 2 .0-3.0 conventional anticoagulation
INR: 2.5- 3.5 high intensity anticoagulation Observation Date Value Abnormality Reference (Units ) Status PT 05/11/2023 12:19:15 13.6 11.6-15.2 (seconds) Final INR 05/11/2023 12:19:15 1.0 0.8-1.2 Final Performing Location LABORATORY [facility] - [address] [place] [address]
--- OUTSIDE RECORDS SUMMARY | 2023-07-14 14:42 | External Medical Summary | Summary of Care ---
Author Name Unknown Organization [facility] Address [address] [facility] [place] [address] Phone [phone] Care Team Providers Care Detective Investigator Name Role Phone Hilario ANDRADE MD, Collette Kebede Primary Care Provider [phone] Reason for Visit * Reason Comments eRx-Medication Refill Encounter Details Date Type Department Care Team Description 05/09/2023 Refill Family Practice [facility] Martha [place] 200 [facility] [place] [address] Collette Mello III, MD 200 [facility] [place] [address] Paroxysmal atrial fibrillation (HCC) Allergies Active Allergy Reactions Severity Noted Date Comments Bee Venom Edema Other 01/10/2016 Lisinopril Cough 09/04/2016 documented as of this encounter (statuses as of 05/09/2023) Medications Medication Sig Dispensed Refills Start Date [...] BY ANTICOAG CLINIC. 105 Tablet 3 2 Active Multi [...] the morning. 90 Tablet 1 3 Active Diclofenac Sodium 1 % External Gel (Voltaren) Apply topically to affected area 4 times a day. Apply to knees 350 g 6 3 Active Additional Information Patient not taking.Reported on 04/15/2023 Cyanocobalamin 1000 MCG Oral Tablet (Cyanocobalamin) Take 1 Tablet by mouth in the morning. 100 Tablet 3 3 Active Enoxaparin Sodium 100 MG/ML Injection Solution Prefilled Syringe (Lovenox)Indication s:Paroxysmal atrial fibrillation (HCC),Recent cerebrovascular accident (CVA) Inject 100 mg under the skin in the morning and 100 mg before bedtime. As instructed by the [facility]. 10 mL 0 3 Active metFORMIN HCl 500 MG [...] the morning. 90 Tablet 3 3 Active Metoprolol Succinate ER 25 MG Oral Tablet Extended Release 24 Hour (toPROL XL)Indications:Paro xysmal atrial fibrillation (HCC) Take 0.5 Tablets (12.5 mg) by mouth in the morning and 0.5 Tablets (12.5 mg) before bedtime. 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 History of basal cell cancer 01/24/2019 Overview: L ear Scalp/neck History of colon cancer 06/24/2018 Morbid obesity due to excess calories Right internal carotid occlusion 017 Left renal mass 01/26/2017 Type 2 diabetes mellitus without complic ations 01/21/2017 Hemiplegia and hemiparesis f ollowing cerebral infarction affecting left non-dominant side 01/21/2017 Paroxysmal atrial fibrillation 7 Essential hypertension with goal blood p ressure less than 140/90 09/02/2016 documented as of this encounter (statuses as of 05/09/2023) Resolved Problems Problem Noted Date Resolved Date Atherosclerotic heart diseas e of [place] coronary artery with other forms of angina pectoris 01/31/2022 01/31/2022 Visit for wound check 03/09/2019 04/10/2020 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 02/23/2019 03/06/2023 BCC (basal cell carcinoma), scalp/neck 9 03/06/2023 Body mass index (BMI) of 45.0 to 49.9 in adult 1 06/05/2022 Overview: Per Obesity protocol #1 Recent cerebrovascular accident (CVA) 02/13/2017 12/23/2018 Body mass index (BMI) of 40.0 to 44.9 in adult 0 01/21/2017 03/25/2017 Overview: ICD-10 update of inactive term documented as of this encounter (statuses as of 05/09/2023) Immunizations Name Administration Dates Next Due COVID-19 mRNA, LNP-s, No Pre serve, 2-Dose Series ([place]) 05/16/2021,09/23/2020,08/26/2020 Covid-19, Mrna, Lnp-s, Pf, B ivalent, 30 Mcg, IM, 12 yrs and above ([place]) 05/09/2022 Pneumococcal Conjugate Vacc, 13 Valent (Prevnar) [...] drink of choice - none since 12/2016 Food Insecurity Answer Date Recorded Within the past 12 months, y ou worried that your food would run out before you got money to buy more. Never true 12/28/2020 Within the past 12 months, t he food you bought just didn't last and you didn't have money to get more. Never true 12/28/2020 Sex Assigned at Date Recorded Female 03/29/2022 9:05 AM E DT Job Start Date Occupation Industry Not on file Not on file Not on file documented as of this encounter Miscellaneous Notes * Telephone Encounter - Emmett Choudhury [facility] - 05/09/2023 3:59 PM EDT Signed Prescriptions: Disp Refills Metoprolol Succinate ER 25 MG Oral Tablet *90 Tab*3 Sig: Take 1 Tablet by mouth in the morning.Authorizing Provider: COLLETTE MELLO III User: EMMETT CHOUDHURY documented in this encounter Plan of Treatment Upcoming Encounters Date Type Specialty Care Team Description 05/11/2023 Hospital Encounter Surgery Forrest Davidson, DO [address] [place] [address] 05/11/2023 Surgery Surgery Forrest Davidson, DO [address] [place] [address] ROBOTIC ARTHROPLASTY KNEE TOTAL 05/12/2023 [facility] [address] [facility] [address] 05/21/2023 Office Visit Orthopedics Forrest Davidson, [address] [place] [address] 09/30/2023 Office Visit Family Medicine Colqu[place] IIICollette MD 200 [facility] [place] [address] 10/01/2023 Office Visit Hematology Oncology Efraín Leone MD [address] [place] [address] 11/12/2023 Office Visit Dermatology Margarita Figueredo PA-C 200 [facility] [place] [phone] 02/25/2024 Imaging Radiology 04/21/2024 Office Visit Sleep Disorders Viktoriya White CRNP [address] [place] [address] Scheduled Procedures Name Priority Associated Diagnoses Date/Ti me ROBOTIC ARTHROPLASTY KNEE TOTAL Knee osteoarthritis 05/11/2023 1:36 PM EDT COLONOSCOPY FLEXIBLE PROXIMAL DIAGNOSTIC Recall History of colonic polyps Health Maintenance Due Date Last Done Comments Depression Screening 06/24/2020 06/24/2019 Diabetic Foot Exam [...] 04/16/2023, 08/07/2022, 10/06/2022, Additional history exists GFR 05/04/2024 05/04/2023, 03/20, 08/25/2022, Additional history exists DTaP,Tdap,and Td Vaccines (2 [...] on patient's age to complete this topic Hepatitis B Aged Out No longer eligi ble based on patient's age to complete this topic MENINGOCOCCAL (MENACTRA/MENVEO) Aged Out No longer eligible based on patient's age to complete this topic documented as of this encounter Medical Devices Not on filedocumented as of this encounter Visit Diagnoses Diagnosis Preop examination- Primary Preoperative examination, unspecified Paroxysmal atrial fibrillation (HCC) Atrial fibrillation Knee osteoarthritis Osteoarthrosis, unspecified whether generalized or localized, lower leg documented in this encounter Care Teams Detective Investigator Relationship Specialty Start Date End Date Collette Mello III, MD 200 [facility] [place] [address] PCP - General Family Medicine 09/10/18 documented as of this encounter
--- OUTSIDE RECORDS SUMMARY | 2023-07-14 14:42 | External Medical Summary ---
Author Name Unknown Address Unknown Organization K1F:LABORATORY [facility]OD [facility] - [address] [place] [address] Laboratory Report Ordering Provider Test Date Status BECKI PETER 05/04/2023 10:28:57 Final Test Canceled Observation Date Value Abnormality Reference (Units ) Status SPECIMEN EXPIRATION DATE 05/04/2023 10:28:57 Final Performing Location LABORATORY [facility] B[facility]OD [facility] - [address] [place] [address]
--- OUTSIDE RECORDS SUMMARY | 2023-07-14 14:42 | External Medical Summary ---
Author Name Unknown Address Unknown Organization : Laboratory Report Ordering Provider Test Date Status ALMA PORTILLO 05/11/2023 17:26:48 Final Observation Date Value Abnormality Reference (Units ) Status Glucose Point of Care 05/11/2023 17:26:48 145 Above high normal 70-120 (mg/dL) Final Performing Location
--- OUTSIDE RECORDS SUMMARY | 2023-07-14 14:42 | External Medical Summary ---
Author Name Unknown Address Unknown Organization K0G:LABORATORY [facility] [address] - [address] [place] [address] Laboratory Report Ordering Provider Test Date Status ELIE PETERDelio 05/04/2023 10:31:27 Final Warfarin Therapy
INR: 2 .0-3.0 conventional anticoagulation
INR: 2.5- 3.5 high intensity anticoagulation Observation Date Value Abnormality Reference (Units ) Status PT 05/04/2023 10:31:27 25.5 Above high normal 11 .6-15.2 (seconds) Final INR 05/04/2023 10:31:27 2.3 Above high normal 0. 8-1.2 Final Performing Location LABORATORY [facility] [address] 0 - [address] [place] [address]
--- OUTSIDE RECORDS SUMMARY | 2023-07-14 14:42 | External Medical Summary ---
Author Name Unknown Address Unknown Organization K1F:LABORATORY [facility] LOOD [facility] - [address] [place] [address] Laboratory Report Ordering Provider Test Date Status BECKI PETER 05/04/2023 10:26:00 Final Observation Date Value Abnormality Reference (Units ) Status ABO 05/04/2023 10:26:00 A Final RH 05/04/2023 10:26:00 Positive Final RED BLOOD CELL ANTIBODY SCREEN 05/04/2023 10:26:00 Negative Final SPECIMEN EXPIRATION DATE 05/04/2023 10:26:00 05/14/2023 23:59 Final Performing Location LABORATORY [facility] B[facility]OD [facility] - [address] [place] [address]
--- OUTSIDE RECORDS SUMMARY | 2023-07-14 14:42 | External Medical Summary ---
Author Name Unknown Address Unknown Organization K1F:LABORATORY [facility] - [address] [place] [address] Laboratory Report Ordering Provider Test Date Status ALMA PORTILLO 05/11/2023 17:22:00 Final Observation Date Value Abnormality Reference (Units ) Status Hemoglobin 05/11/2023 17:22:00 10.2 Below low normal 12 .0-15.3 (g/dL) Final Performing Location LABORATORY [facility] - [address] [place] [address]
--- OUTSIDE RECORDS SUMMARY | 2023-07-14 14:42 | External Medical Summary ---
Author Name Unknown Address Unknown Organization K01:LABORATORY C - [address] [place] [address] Laboratory Report Ordering Provider Test Date Status BECKI PETER 05/04/2023 10:28:57 Final Observation Date Value Abnormality Reference (Units ) Status Hep C Ab 05/04/2023 10:28:57 Negative Negative Final Further HCV quantitative benton ting not performed per protocol. Performing Location LABORATORY [facility] - [address] [place] [address]
--- OUTSIDE RECORDS SUMMARY | 2023-07-14 14:42 | External Medical Summary ---
Author Name Unknown Address Unknown Organization : Laboratory Report Ordering Provider Test Date Status ALMA PORTILLO 05/12/2023 11:19:34 Final Observation Date Value Abnormality Reference (Units ) Status Glucose Point of Care 05/12/2023 11:19:34 144 Above high normal 70-120 (mg/dL) Final Performing Location
--- OUTSIDE RECORDS SUMMARY | 2023-07-14 14:42 | External Medical Summary ---
Author Name Unknown Address Unknown Organization K01:LABORATORY [facility] - [address] [facility] [address] Laboratory Report Ordering Provider Test Date Status BECKI PETER 05/04/2023 10:28:57 Final Observation Date Value Abnormality Reference (Units ) Status HbA1C 05/04/2023 10:28:57 4.9 4.0-5.6 (% ) Final The use of HbA1c to monitor glycemic status is based on normal hemoglobin and HbA composition. This test should not be used in patients with abnormal hemoglobin that affects the half life of the red blood cell or the in vivo glycation rates. Glucose, estimated average 05/04/2023 10:28:57 94 <126 (mg/dL) Final Performing Location LABORATORY C - [address] [facility] [address]
--- OUTSIDE RECORDS SUMMARY | 2023-07-14 14:42 | External Medical Summary ---
Author Name Unknown Address Unknown Organization K0G:LABORATORY [facility] [address] - [address] [place] [address] Laboratory Report Ordering Provider Test Date Status BECKI PETER 05/04/2023 10:28:57 Final Observation Date Value Abnormality Reference (Units ) Status BUN 05/04/2023 10:28:57 21 Above high normal 6-20 (mg/dL) Final Creatinine 05/04/2023 10:28:57 1.1 Above high normal 0.5-1.0 (mg/dL) Final Glomerular filtration rate/1.73 sq M.predicted [Volume Rate/Area] in Serum, Plasma or Blood by Creatinine-based formula (CKD-EPI) 05/04/2023 10:28:57 57 Below low normal >=60 (mL/min) Final eGFR is calculated based on the CKD-EPI 2020 equation SODIUM 05/04/2023 10:28:57 135 135-146 (m mol/L) Final Potassium 05/04/2023 10:28:57 4.5 3.5-5.1 (m mol/L) Final Cl 05/04/2023 10:28:57 94 Below low normal 98- 107 (mmol/L) Final CO2 05/04/2023 10:28:57 28 22-32 (mmo l/L) Final Anion gap 05/04/2023 10:28:57 13 7-15 (mmol /L) Final Glucose 05/04/2023 10:28:57 123 Above high normal 70 -120 (mg/dL) Final Albumin 05/04/2023 10:28:57 4.5 3.8-5.0 (g /dL) Final AST (Aspartate aminotransferase) 05/04/2023 10:28:57 51 Above high normal 10-35 (U/L) Final Alk Phos 05/04/2023 10:28:57 87 35-130 (U/ L) Final Bilirubin, Total 05/04/2023 10:28:57 0.6 <=1 .2 (mg/dL) Final Calcium 05/04/2023 10:28:57 10.0 8.4-10.2 ( mg/dL) Final Protein 05/04/2023 10:28:57 7.4 6.0-8.3 (g /dL) Final ALT (Alanine aminotransferase) 05/04/2023 10:28:57 62 Above high normal 10-35 (U/L) Final Performing Location LABORATORY [place] [address] 0 - [address] [facility] [address]
--- OUTSIDE RECORDS SUMMARY | 2023-07-14 14:42 | External Medical Summary ---
Author Name Unknown Address Unknown Organization [facility] [facility] [address] [place] [address] Laboratory Report Ordering Provider Test Date Status BECKI PETER 05/04/2023 10:28:57 Final Anticoagulation may affect t esting. Refer to [facility] Test Catalog for a list of effects. Observation Date Value Abnormality Reference (Units ) Status aPTT panel - Platelet poor plasma 05/04/2023 10:28:57 41 Above high normal 21-38 (seconds) Final Performing [facility] 0 - [address] [place] [address]
--- OUTSIDE RECORDS SUMMARY | 2023-07-14 14:42 | External Medical Summary ---
Author Name Unknown Address Unknown Organization K[facility] [facility] [address] [place] [address] Laboratory Report Ordering Provider Test Date Status BECKI PETER 05/04/2023 10:28:57 Final Observation Date Value Abnormality Reference (Units ) Status Color of Urine by Auto 05/04/2023 10:28:57 Yellow Light Yellow, Yellow, Dark Yellow Final Clarity, Urine 05/04/2023 10:28:57 Slightly Cloudy Abnormal Clear Final Glucose [Mass/volume] in Urine by Automated test strip 05/04/2023 10:28:57 Negative Negative (mg/dL) Final Bilirubin.total [Presence] in Urine by Automated test strip 05/04/2023 10:28:57 Small Abnormal Negative Final Ketones [Mass/volume] in Urine by Automated test strip 05/04/2023 10:28:57 15 Abnormal Negative (mg/dL) Final Specific gravity, Urine 05/04/2023 10:28:57 1.020 1.003-1.030 Final Hemoglobin [Presence] in Urine by Automated test strip 05/04/2023 10:28:57 Trace Abnormal Negative Final pH, Urine 05/04/2023 10:28:57 5.5 5.0-7.5 (Units) Final Protein [Mass/volume] in Urine by Automated test strip 05/04/2023 10:28:57 30 Abnormal Negative (mg/dL) Final Urobilinogen [Mass/volume] in Urine by Automated test strip 05/04/2023 10:28:57 0.2 0.2, 1.0 (mg/dL) Final Nitrite [Presence] in Urine by Automated test strip 05/04/2023 10:28:57 Positive Abnormal Negative Final Leukocyte esterase [Presence] in Urine by Automated test strip 05/04/2023 10:28:57 Moderate Abnormal Negative Final Performing Location LABORATORY [place] 57-[address] 0 - [address] [place] [address]
--- OUTSIDE RECORDS SUMMARY | 2023-07-14 14:42 | External Medical Summary ---
Author Name Unknown Address Unknown Organization K01:LABORATORY C - [address] [place] [address] Laboratory Report Ordering Provider Test Date Status BECKI PETER 05/04/2023 10:28:57 Final Observation Date Value Abnormality Reference (Units ) Status SYNC LEUKOCYTES IN BLOOD BY AUTOMATED COUNT 05/04/2023 10:28:57 5.30 4.00-10.80 (K/uL) Final Segs 05/04/2023 10:28:57 67.3 40.0-75.0 (%) Final Lymphs % 05/04/2023 10:28:57 20.4 18.0-42.0 (%) Final Monos 05/04/2023 10:28:57 9.4 1.0-11.0 (%) Final Eosinophils 05/04/2023 10:28:57 1.9 0.0-6.0 (%) Final Basos 05/04/2023 10:28:57 0.6 0.0-2.0 (%) Final Immature Granulocyte, Percent 05/04/2023 10:28:57 0.4 0.0-2.0 (%) Final Absolute Segs 05/04/2023 10:28:57 3.57 1.80-7.70 (K/uL) Final Lymphs, absolute 05/04/2023 10:28:57 1.08 1.00-4.80 (K/ul) Final Monos, Abs 05/04/2023 10:28:57 0.50 0.00-1.10 (K/uL) Final Eos, Abs 05/04/2023 10:28:57 0.10 0.00-0.70 (K/uL) Final Basos, Abs 05/04/2023 10:28:57 0.03 0.00-0.20 (K/uL) Final Immature Granulocytes, Number 05/04/2023 10:28:57 0.02 0.00-0.20 (K/uL) Final Performing Location LABORATORY [facility] - [address] [facility] [address]
--- OUTSIDE RECORDS SUMMARY | 2023-07-14 14:42 | External Medical Summary | Summary of Care ---
Author Name Unknown Organization [facility] Address [address] [facility] [place] [address] Phone [phone] Care Team Providers Care Fisher Gill Net Name Role Phone Hilario ANDRADE MD, Shiva Kebede Primary Care Provider [phone] Reason for Visit * Reason Comments Outpatient Testing Encounter Details Date Type Department Care Team Description 05/04/2023 Laboratory [facility], [facility] [id number] [facility] 132 [place] [address] Preop testing Allergies Active Allergy Reactions Severity Noted Date Comments Bee Venom Edema Other 01/10/2016 Lisinopril Cough 09/04/2016 documented as of this encounter (statuses as of 05/04/2023) Medications Medication Sig Dispensed Refills Start Date [...] the morning. 30 Tablet 12 05/13/2022 Active Metoprolol Succinate ER 25 MG Oral Tablet Extended Release 24 Hour (toPROL XL)Indications:Paroxy smal atrial fibrillation (HCC) Take 0.5 Tablets (12.5 mg) by mouth in the morning and 0.5 Tablets (12.5 mg) before bedtime. 30 Tablet 5 06/02/2022 Active Additional Information Patient taking differently: 25 mgOralDaily(AM), Reported on 08/20/2022 Atorvastatin Calcium 80 MG Oral Tablet (Lipitor) TAKE 1 TABLET BY MOUTH EVERY DAY 90 Tablet 3 07/07/2022 Active Warfarin Sodium 5 MG Oral Tablet (Coumadin)Indications :Recent cerebrovascular accident (CVA),Paroxysmal atrial fibrillation (HCC) TAKE 1 1/2 TABLETS (7.5mg) BY MOUTH FRIDAYS AND 1 TABLET (5mg) ALL OTHER EVENINGS OR DIRECTED BY [facility]. 105 Tablet 3 07/18/2022 Active Multi [...] the morning. 90 Tablet 1 02/25/2023 Active Diclofenac Sodium 1 % External Gel (Voltaren) Apply topically to affected area 4 times a day. Apply to knees 350 g 6 03/18/2023 Active Additional Information Patient not taking.Reported on 04/15/2023 Cyanocobalamin 1000 MCG Oral Tablet (Cyanocobalamin) Take 1 Tablet by mouth in the morning. 100 Tablet 3 03/18/2023 Active Enoxaparin Sodium 100 MG/ML Injection Solution Prefilled Syringe (Lovenox)Indications: Paroxysmal atrial fibrillation (HCC),Recent cerebrovascular accident (CVA) Inject 100 mg under the skin in the morning and 100 mg before bedtime. As instructed by the [facility]. 10 mL 0 04/01/2023 Active metFORMIN HCl 500 MG Oral Tablet (Glucophage) TAKE 2 TABLETS BY MOUTH TWO TIMES DAILY WITH MORNING AND EVENING MEALS. 360 Tablet 1 05/01/2023 Active amLODIPine Besylate 5 MG Oral Tablet (Norvasc) Take 1 Tablet by mouth in the morning. 34 Tablet 11 04/30/2023 Active documented as of this encounter (statuses as of 05/04/2023) Active Problems Problem Noted Date Atherosclerosis of [place] coronary arter y without angina pectoris 09/10/2022 [...] as of this encounter (statuses as of 05/04/2023) Resolved Problems Problem Noted Date Resolved Date Atherosclerotic heart diseas e of [place] coronary artery with other forms of angina [...] as of this encounter (statuses as of 05/04/2023) Immunizations Name Administration Dates Next Due COVID-19 mRNA, LNP-s, No Pre serve, 2-Dose Series (Wyldfire) 05/16/2021,09/23/2020,08/26/2020 Covid-19, Mrna, Lnp-s, Pf, B ivalent, 30 Mcg, IM, 12 yrs and above ([employer]yldfire) 05/09/2022 Pneumococcal Conjugate Vacc, 13 Valent (Prevnar) [...] on file documented as of this encounter Plan of Treatment Upcoming Encounters Date Type Specialty Care Team Description 05/11/2023 Hospital Encounter Surgery Forrest Davidson, DO [address] [place] [address] 05/11/2023 Surgery Surgery Forrest Davidson, DO [address] [place] [address] ROBOTIC ARTHROPLASTY KNEE TOTAL 05/12/2023 [facility] [address] [place] [address] 05/21/2023 Office Visit Orthopedics Forrest Davidson, [address] [place] [address] 09/30/2023 Office Visit Family Medicine Hilario IIIShiva MD [address] [facility] [place] [address] 10/01/2023 Office Visit Hematology Oncology Efraín Leone MD [address] [facility] [place] [address] 11/12/2023 Office Visit Dermatology Margarita Figueredo [facility]-C [facility] [place] [address] 02/25/2024 Imaging Radiology 04/21/2024 Office Visit Sleep Disorders Viktoriya White CRNP [address] [place] [address] Pending Results Name Type Priority Associated Diagnoses Date /Time URINALYSIS, REFLEX TO MICROSCOPIC Lab Routine Preop testing 05/04/2023 10:28 AM EDT APTT Lab Routine Preop testing 05/04/2023 10:28 AM EDT HEMOGLOBIN A1C Lab Routine Preop testing 05/04/2023 10:28 AM EDT TYPE AND SCREEN Lab Routine Preop testing 05/04/2023 10:28 AM EDT COMPREHENSIVE METABOLIC PANEL Lab Routine Preop testing 05/04/2023 10:28 AM EDT CBC WITH WBC DIFFERENTIAL AND ANEMIA REFLEX WORKUP Lab Routine Preop testing 05/04/2023 10:28 AM EDT HEPATITIS C ANTIBODY SCREEN WITH PROGRESSION TO HEPATITIS C RNA QUANTITATIVE Lab Routine Preop testing 05/04/2023 10:28 AM EDT ANEMIA CBC Lab Routine Preop testing 05/04/2023 10:28 AM EDT DIFFERENTIAL, AUTOMATED Lab Routine Preop testing 05/04/2023 10:28 AM EDT ANEMIA REFLEX CHEMISTRY HOLD Lab Routine Preop testing 05/04/2023 10:28 AM EDT HEPATITIS C ANTIBODY Lab Routine Preop testing 05/04/2023 10:28 AM EDT HEPATITIS C RNA ADD ON Lab Routine Preop testing 05/04/2023 10:28 AM EDT PT INR Lab Routine Preop testing 05/04/2023 10:31 AM EDT ABO/RH Lab Routine Preop testing 05/04/2023 10:31 AM EDT MICROSCOPIC EXAM, URINE Lab Routine Preop testing 05/04/2023 10:28 AM EDT Scheduled Procedures Name Priority Associated Diagnoses Date/Ti me ROBOTIC ARTHROPLASTY KNEE TOTAL Knee osteoarthritis 05/11/2023 10:23 AM EDT COLONOSCOPY FLEXIBLE PROXIMAL DIAGNOSTIC Recall History of colonic polyps Health Maintenance Due Date Last Done Comments Depression Screening 06/24/2020 06/24/2019 Diabetic Foot Exam 01/31/2023 01/31/2022, 0 12/31/2020, 06/24/2019, Additional history exists COVID-19 Vaccine ( season) 2023 05/09/2022, 05/16/2021, 09/23/2020, Additional history exists *NEPHROLOGY REFERRAL DUE TO RESISTANT HTN 04/24/2023 HbA1c 08/20/2023 02/17/2023, 08/21, 02/03/2022, Additional history exists DIABETES-EYE EXAM 08/28/2023 08/28/2022, , 08/17/2020, Additional history exists Albumin/Creatinine Ratio 02/18/2024 02/17/2023, 01/17 Mammogram 02/24/2024 02/23/2023, 05/20, 03/06/2022, Additional history exists GFR 03/31/2024 03/31/2023, 12/2022, 07/22/2022, Additional history exists COLONOSCOPY-EVERY 3 YRS AGES 18-100 04/11/2024 04/11/2021, 03/16/2019, 02/16/2018, Additional history exists B-12 04/16/2024 04/16/2023, 07/2022, 10/06/2022, Additional history exists DTaP,Tdap,and Td Vaccines (2 [...] of this encounter Visit Diagnoses Diagnosis Preop testing Preoperative examination, unspecified Knee osteoarthritis Osteoarthrosis, unspecified whether generalized or localized, lower leg documented in this encounter Care Teams Fisher Gill Net Relationship Specialty Start Date End Date Hilario ANDRADE, Shiva Kebede MD [address] [place] [address], [place] [address] PCP - General Family Medicine 09/10/18 documented as of this encounter
--- OUTSIDE RECORDS SUMMARY | 2023-07-14 14:42 | External Medical Summary | Summary of Care ---
Author Name Unknown Organization [facility] Address [address] [place] [address] Phone [phone] Care Team Providers Care Bottom Sander Name Role Phone Hilario ANDRADE MD, Shiva Kebede Primary Care Provider [phone] Reason for Visit * Reason Comments Education Pre-op Right TKA Encounter Details Date Type Department Care Team Description 05/06/2023 Documentation Total Joint Education, Heydi Breen [address] [place] [address] Aida Morin, RN Primary osteoarthritis of right knee* Allergies Active Allergy Reactions Severity Noted Date Comments Bee Venom Edema Other 01/10/2016 Lisinopril Cough 09/04/2016 documented as of this encounter (statuses as of 05/06/2023) Medications Medication Sig Dispensed Refills Start Date [...] mg before bedtime. As instructed by the [facility]. 10 mL 0 04/01/2023 Active metFORMIN HCl 500 MG Oral Tablet (Glucophage) TAKE 2 TABLETS BY MOUTH TWO TIMES DAILY WITH MORNING AND EVENING MEALS. 360 Tablet 1 05/01/2023 Active amLODIPine Besylate 5 MG Oral Tablet (Norvasc) Take 1 Tablet by mouth in the morning. 34 Tablet 11 04/30/2023 Active documented as of this encounter (statuses as of 05/06/2023) Active Problems Problem Noted Date Atherosclerosis of [place] coronary arter y without angina pectoris 09/10/2022 [...] as of this encounter (statuses as of 05/06/2023) Resolved Problems Problem Noted Date Resolved Date Atherosclerotic heart diseas e of [place] coronary artery with other forms of angina [...] as of this encounter (statuses as of 05/06/2023) Immunizations Name Administration Dates Next Due COVID-19 mRNA, LNP-s, No Pre serve, 2-Dose Series ([email or web address]) 05/16/2021,09/23/2020,08/26/2020 Covid-19, Mrna, Lnp-s, Pf, B ivalent, 30 Mcg, IM, 12 yrs and above ([email or web address]) 05/09/2022 Pneumococcal Conjugate Vacc, 13 Valent (Prevnar) [...] on file documented as of this encounter Progress Notes * Aida Morin RN - 05/06/2023 12:24 PM EDT See nursing notes. documented in this encounter Nursing Notes * Aida Morin RN - 05/06/2023 12:15 PM EDT Attended a Joint Class? Viewed online. She completed the online KOOS and RAPT tools. We completed the pre-op questionnaire over the phone today. Anticipating a Right TKR on May 11, [address] Davidson. Overview of Chlorhexidine Gluconate (CHG) scrub complete? Yes. Reveiwed dates of use and areas to wash. Nasal swab resulted MSSA/MRSA negative. She has supplies and printed instructions. Care Management to formulate discharge plan? Yes. She lives with her spouse in a two-story house. They are bringing a bed down to the first floor. There is a bathroom on the first floor. There are a total of 10 steps to the front door. There are railings and a post along the route. She has a cane, a walker without wheels, a hand-held shower, a bedside commode, and a tub bench. No agency preference. Education provided by: Ortho Nurse Educator Additional education provided by: Other Dr. Davidson Patient educated on MEND. Patient to consume MEND twice daily one week prior to surgery and continue post-operatively until the canister is empty. Patient is on long-term anticoagulation. She is following Lovenox bridging plan as outlined by Anticoagulation Clinic. Nenita Fleming documented in this encounter Plan of Treatment Upcoming Encounters Date Type Specialty Care Team Description 05/11/2023 Hospital Encounter Surgery Forrest Davidson, [address] [facility] [place] [address] 05/11/2023 Surgery Surgery Forrest Davidson, DO [address] [place] [address] ROBOTIC ARTHROPLASTY KNEE TOTAL 05/12/2023 [facility] [address] [facility] [address] 05/21/2023 Office Visit Orthopedics Forrest Davidson, DO [address] [place] [address] 09/30/2023 Office Visit Family Medicine Jayuya Shvia ANDRADE MD [address] [place] [address] 10/01/2023 Office Visit Hematology Oncology Efraín Leone MD [address] [place] [address] 11/12/2023 Office Visit Dermatology Margarita Figueredo PA-C [address] [place] [address] 02/25/2024 Imaging Radiology 04/21/2024 Office Visit Sleep Disorders Viktoriya White CRNP [address] [place] [address] Scheduled Procedures Name Priority Associated Diagnoses Date/Ti [...] 080 07/2022, 10/06/2022, Additional history exists GFR 05/04/2024 05/04/2023, [...] as of this encounter Visit Diagnoses Diagnosis Primary osteoarthritis of right knee- Primary Primary localized osteoarthrosis, lower leg Knee osteoarthritis Osteoarthrosis, unspecified whether generalized or localized, lower leg documented in this encounter Care Teams Bottom Sander Relationship Specialty Start Date End Date Shiva Rich III, MD [address] [place] [address], [place] [address] PCP - General Family Medicine 09/10/18 documented as of this encounter
--- OUTSIDE RECORDS SUMMARY | 2023-07-14 14:42 | External Medical Summary ---
Author Name Unknown Address Unknown Organization K1F:LABORATORY [facility] - [address] [place] [address] Laboratory Report Ordering Provider Test Date Status BECKI PETER 05/04/2023 10:31:00 Final Observation Date Value Abnormality Reference (Units ) Status ABO 05/04/2023 10:31:00 A Final RH 05/04/2023 10:31:00 Positive Final Performing Location LABORATORY [facility] - [address] [place] [address]
--- OUTSIDE RECORDS SUMMARY | 2023-07-14 14:42 | External Medical Summary ---
Author Name Unknown Address Unknown Organization K1F:LABORATORY [facility] - [address] [place] [address] Laboratory Report Ordering Provider Test Date Status SHARMAINE PORTILLOJUAN 05/12/2023 04:08:00 Final Observation Date Value Abnormality Reference (Units ) Status BUN 05/12/2023 04:08:00 16 6-20 (mg/dL) Final Creatinine 05/12/2023 04:08:00 0.8 0.5-1.0 (mg/dL) Final Glomerular filtration rate/1.73 sq M.predicted [Volume Rate/Area] in Serum, Plasma or Blood by Creatinine-based formula (CKD-EPI) 05/12/2023 04:08:00 80 >=60 (mL/min) Final eGFR is calculated based on the CKD-EPI 2020 equation SODIUM 05/12/2023 04:08:00 132 Below low normal 135 -146 (mmol/L) Final Potassium 05/12/2023 04:08:00 4.4 3.5-5.1 (m mol/L) Final Cl 05/12/2023 04:08:00 94 Below low normal 98- 107 (mmol/L) Final CO2 05/12/2023 04:08:00 30 22-32 (mmo l/L) Final Anion gap 05/12/2023 04:08:00 8 7-15 (mmol /L) Final Glucose 05/12/2023 04:08:00 170 Above high normal 70 -120 (mg/dL) Final Calcium 05/12/2023 04:08:00 9.0 8.4-10.2 ( mg/dL) Final Performing Location LABORATORY [facility] - [address] [place] [address]
--- OUTSIDE RECORDS SUMMARY | 2023-07-14 14:42 | External Medical Summary ---
Author Name Unknown Address Unknown Organization K1F:LABORATORY [facility] - [facility] [address] [place] [address] Laboratory Report Ordering Provider Test Date Status ALMA PORTILLO 05/12/2023 04:08:00 Final Observation Date Value Abnormality Reference (Units ) Status WBC, Total 05/12/2023 04:08:00 9.70 4.00-10.80 (K/uL) Final RBC 05/12/2023 04:08:00 2.97 3.85-5.15 (M/uL) Final Hemoglobin 05/12/2023 04:08:00 8.8 Below low normal 12.0-15.3 (g/dL) Final HCT 05/12/2023 04:08:00 28.1 Below low normal 36.0-45.2 (%) Final MCV 05/12/2023 04:08:00 94.6 81.5-97.5 (fL) Final MCH 05/12/2023 04:08:00 29.6 27.0-34.0 (pg) Final MCHC 05/12/2023 04:08:00 31.3 32.0-36.0 (g/dL) Final RDW 05/12/2023 04:08:00 13.7 11.5-15.5 (%) Final Platelets 05/12/2023 04:08:00 229 140-400 (K/uL) Final MPV 05/12/2023 04:08:00 9.9 6.6-11.1 (fL) Final Nucleated erythrocytes/100 leukocytes [Ratio] in Blood by Automated count 05/12/2023 04:08:00 0 <=0 (/100 WBCs) Final Performing Location LABORATORY [facility] - [address] [place] [address]
--- OUTSIDE RECORDS SUMMARY | 2023-07-14 14:42 | External Medical Summary | Summary of Care ---
Author Name Unknown Organization [facility] Address [address] [facility] [place] [address] Phone [phone] Care Team Providers Care Consulting Business Developer Name Role Phone Hilario ANDRADE MD, Shiva Kebede Primary Care Provider [phone] Reason for Visit * Reason Onset Date Comments Test Results 05/04/2023 Encounter Details Date Type Department Care Team Description 05/04/2023 Telephone Cardiology, [facility] [address] [place] [address] Feliberto Diggs, [address] [place] [address] Test Results Allergies Active Allergy Reactions Severity Noted Date [...] (5mg) ALL OTHER EVENINGS OR DIRECTED BY [facility]. 105 Tablet 3 07/18/2022 Active [...] mg before bedtime. As instructed by the [facility]. 10 mL 0 04/01/2023 Active [...] Active Problems Problem Noted Date Atherosclerosis of [place] coronary arter y without angina pectoris 09/10/2022 [...] Resolved Date Atherosclerotic heart diseas e of [place] coronary artery with other forms of angina [...] mRNA, LNP-s, No Pre serve, 2-Dose Series (Swing by Swing) 05/16/2021,09/23/2020,08/26/2020 Covid-19, Mrna, Lnp-s, Pf, B ivalent, 30 Mcg, IM, 12 yrs and above (Swing by Swing) 05/09/2022 Pneumococcal Conjugate Vacc, 13 Valent (Prevnar) [...] encounter Miscellaneous Notes * Telephone Encounter - Kelsea Villa CMA - 05/04/2023 10:21 AM EDT Portal message sent. * Telephone Encounter - Kelsea Villa CMA - 05/04/2023 10:20 AM EDT ----- Message from Feliberto Diggs DO sent at 05/04/2023 9:12 AM EDT ----- Normal TSH. documented in this encounter Plan of Treatment Upcoming Encounters Date Type Specialty Care Team Description 05/04/2023 Laboratory Laboratory Wilfredo Gambino [address] [place] [address] Preop testing 05/11/2023 Hospital Encounter Surgery Forrest Davidson DO [address] [place] [address] 05/11/2023 Surgery Surgery Forrest Davidson DO [address] [place] [address] ROBOTIC ARTHROPLASTY KNEE TOTAL 05/12/2023 [facility] [address] [facility] [place] [address] 05/21/2023 Office Visit Orthopedics Forrest Davidson DO [address] [place] [address] 09/30/2023 Office Visit Family Medicine Callahan IIIShiva MD [address] [place] [address] 10/01/2023 Office Visit Hematology Oncology Efraín Leone MD [address] [place] [address] 11/12/2023 Office Visit Dermatology Margarita Figueredo PA-C [address] [place] [address] 02/25/2024 Imaging Radiology 04/21/2024 Office Visit Sleep Disorders Viktoriya White CRNP [address] [place] [address] Scheduled Procedures Name Priority Associated Diagnoses Date/Ti [...] Not on filedocumented as of this encounter Care Teams Consulting Business Developer Relationship Specialty Start Date End Date Shiva Rich III, MD [address] [place] [address], [place] [address] PCP - General Family Medicine 09/10/18 documented as of this encounter
--- OUTSIDE RECORDS SUMMARY | 2023-07-14 14:42 | External Medical Summary ---
Author Name Unknown Address Unknown Organization : Laboratory Report Ordering Provider Test Date Status ALMA PORTILLO 05/11/2023 12:34:18 Final Observation Date Value Abnormality Reference (Units ) Status Glucose Point of Care 05/11/2023 12:34:18 86 70-120 (mg/dL) Final Performing Location
--- OUTSIDE RECORDS SUMMARY | 2023-07-14 14:42 | External Medical Summary ---
Author Name Unknown Address Unknown Organization K0G:[facility] [place] [facility] - [address] [place] [address] Laboratory Report Ordering Provider Test Date Status BECKI PETER 05/04/2023 10:28:57 Final Observation Date Value Abnormality Reference (Units ) Status RBC, Urine 05/04/2023 10:28:57 3-5 Abnormal 0-2 (/HPF) Final WBC, Urine 05/04/2023 10:28:57 50+ Abnormal 0-2 (/HPF) Final Bacteria [#/area] in Urine sediment by Microscopy high power field 05/04/2023 10:28:57 >200 Abnormal 0-25 (/HPF) Final Epithelial cells.squamous [#/area] in Urine sediment by Microscopy high power field 05/04/2023 10:28:57 Many Abnormal None (/HPF) Final Performing Location [facility] [place] [facility] 0 - [address] [place] [address]
--- OUTSIDE RECORDS SUMMARY | 2023-07-14 14:42 | External Medical Summary ---
Author Name Unknown Address Unknown Organization : Laboratory Report Ordering Provider Test Date Status ALMA PORTILLO 05/11/2023 21:35:43 Final Observation Date Value Abnormality Reference (Units ) Status Glucose Point of Care 05/11/2023 21:35:43 248 Above high normal 70-120 (mg/dL) Final Performing Location
--- OUTSIDE RECORDS SUMMARY | 2023-07-14 14:42 | External Medical Summary ---
Author Name Unknown Address Unknown Organization K1F:[facility] - [address] [place] [address] Laboratory Report Ordering Provider Test Date Status ALMA PORTILLO 05/11/2023 17:22:00 Final Observation Date Value Abnormality Reference (Units ) Status HCT 05/11/2023 17:22:00 31.8 Below low normal 36. 0-45.2 (%) Final Performing Location [facility] - [address] [place] [address]
--- OUTSIDE RECORDS SUMMARY | 2023-07-14 14:42 | External Medical Summary ---
Author Name Unknown Address Unknown Organization K01:[facility] - [address] [place] [address] Laboratory Report Ordering Provider Test Date Status BECKI PETER 05/04/2023 10:28:57 Final Observation Date Value Abnormality Reference (Units ) Status WBC, Total 05/04/2023 10:28:57 5.30 4.00-10.8 0 (K/uL) Final RBC 05/04/2023 10:28:57 3.94 3.85-5.15 (M/uL) Final Hemoglobin 05/04/2023 10:28:57 12.2 12.0-15.3 (g/dL) Final Anemia reflex testing trigge rs on a HGB < 12.0 for Females and HGB < 13.0 for Males in accordance with the WHO Anemia Guidelines
Anemia reflex testing triggers on a HGB < 12.0 for Females and HGB < 13.0 for Males in accordance with the WHO Anemia Guidelines HCT 05/04/2023 10:28:57 39.0 36.0-45.2 (%) Final MCV 05/04/2023 10:28:57 99.0 81.5-97.5 (fL) Final MCH 05/04/2023 10:28:57 31.0 27.0-34.0 (pg) Final MCHC 05/04/2023 10:28:57 31.3 32.0-36.0 (g/dL) Final RDW 05/04/2023 10:28:57 14.6 11.5-15.5 (%) Final Platelets 05/04/2023 10:28:57 339 140-400 (K /uL) Final MPV 05/04/2023 10:28:57 10.3 6.6-11.1 ( fL) Final Nucleated erythrocytes/100 leukocytes [Ratio] in Blood by Automated count 05/04/2023 10:28:57 0 <=0 (/100 WBCs) Fi nal Performing Location [facility] - [address] [facility] [address]
--- OUTSIDE RECORDS SUMMARY | 2023-07-14 14:43 | External Medical Summary | Summary of Care ---
Author Name Unknown Organization [facility] Address [address] [facility] [place] [address] Phone [phone] Care Team Providers Care Tuber Operator Name Role Phone Hilario ANDRADE MD, Shiva Kebede Primary Care Provider [phone] Reason for Visit * Reason Comments Outpatient Testing Encounter Details Date Type Department Care Team Description 04/30/2023 Laboratory Laboratory, [facility] [phone] [facility] 132 [facility] [place] [address] Arrived Allergies Active Allergy Reactions Severity Noted Date Comments Bee Venom Edema Other 01/10/2016 Lisinopril Cough 09/04/2016 documented as of this encounter (statuses as of 04/30/2023) Medications Medication Sig Dispensed Refills Start Date [...] the morning. 30 Tablet 12 05/13/2022 Active metFORMIN HCl 500 MG Oral Tablet (Glucophage) TAKE 2 TABLETS BY MOUTH TWO TIMES DAILY WITH MORNING AND EVENING MEALS 360 Tablet 3 05/20/2022 Active Metoprolol Succinate ER 25 MG Oral [...] ALL OTHER EVENINGS OR DIRECTED BY [facility]. 105 Tablet 3 07/18/2022 [...] mg before bedtime. As instructed by the [facility]. 10 mL 0 04/01/2023 Active amLODIPine Besylate 5 MG Oral Tablet (Norvasc) Take 1 Tablet by mouth in the morning. 34 Tablet 11 04/30/2023 Active documented as of this encounter (statuses as of 04/30/2023) Active Problems Problem Noted Date Atherosclerosis of [place] coronary arter y without angina pectoris 09/10/2022 [...] as of this encounter (statuses as of 04/30/2023) Resolved Problems Problem Noted Date Resolved Date Atherosclerotic heart diseas e of [place] coronary artery with other forms of angina [...] as of this encounter (statuses as of 04/30/2023) Immunizations Name Administration Dates Next Due COVID-19 mRNA, LNP-s, No Pre serve, 2-Dose Series (Personal Style Finder) 05/16/2021,09/23/2020,08/26/2020 Covid-19, Mrna, Lnp-s, Pf, B ivalent, 30 Mcg, IM, 12 yrs and above (Personal Style Finder) 05/09/2022 Pneumococcal Conjugate Vacc, 13 Valent (Prevnar) [...] Davidson, DO [address] [place] [address] 05/11/2023 Surgery Surgery Forrest Davidson, DO [address] [place] [address] ROBOTIC ARTHROPLASTY KNEE TOTAL 05/12/2023 Anticoagulation Pharmacy [facility] [address] [place] [address] 05/21/2023 Office Visit Orthopedics Forrest Davidson, [address] [place] [address] 09/30/2023 Office Visit Family Medicine [place] IIIShiva MD [address] [facility] [address] [address] 10/01/2023 Office Visit Hematology Oncology Efraín Leone MD [address] [facility] [address] [place] [address] 11/12/2023 Office Visit Dermatology Margarita Figueredo PA-C [address] [facility] [place] [phone] 02/25/2024 Imaging Radiology 04/21/2024 Office Visit Sleep Disorders Viktoriya White CRNP [address] [place] [address] Scheduled Procedures Name Priority Associated Diagnoses Date/Ti [...] 03/06/2022, Additional history exists GFR 03/31/2024 03/31/2023, 02/0 12/2022, 07/22/2022, Additional history exists COLONOSCOPY-EVERY 3 YRS AGES 18-100 04/11/2024 04/11/2021, 03/16/2019, 02/16/2018, Additional history exists B-12 04/16/2024 04/16/2023, 08/0 07/2022, 10/06/2022, Additional history exists DTaP,Tdap,and Td [...] filedocumented as of this encounter Care Teams Tuber Operator Relationship Specialty Start Date End Date Shiva Rich III, MD [address] [place] [address] [place] [address] PCP - General Family Medicine 09/10/18 documented as of this encounter
--- OUTSIDE RECORDS SUMMARY | 2023-07-14 14:43 | External Medical Summary | Summary of Care ---
Author Name Unknown Organization [facility] Address [address] [facility] [place] [address] Phone [phone] Care Team Providers Care Audio Visual Facilities Engineer Name Role Phone Hilario ANDRADE MD, Shiva Kebede Primary Care Provider [phone] Reason for Visit * Reason Onset Date Comments Administrative Follow-Up 04/29/2023 Noc ox order Encounter Details Date Type Department Care Team Description 04/29/2023 Telephone Sleep Disorders Ctr [facility] [address] [place] [phone] Viktoriya White CRNP 132 [facility] [place] [address] Administrative Follow-Up (Noc ox order) Allergies Active Allergy Reactions Severity Noted Date Comments Bee Venom Edema Other 01/10/2016 Lisinopril Cough 09/04/2016 documented as of this encounter (statuses as of 04/29/2023) Medications Medication Sig Dispensed Refills Start Date [...] ALL OTHER EVENINGS OR DIRECTED BY [facility]. 105 Tablet 3 07/18/2022 Active Multi Vitamin Daily Oral Tablet Take by mouth . 0 Active Ezetimibe 10 MG Oral Tablet [...] the [facility]. 10 mL 0 04/01/2023 Active documented as of this encounter (statuses as of 04/29/2023) Active Problems Problem Noted Date Atherosclerosis of [place] coronary arter y without angina pectoris 09/10/2022 [...] as of this encounter (statuses as of 04/29/2023) Resolved Problems Problem Noted Date Resolved Date Atherosclerotic heart diseas e of [place] coronary artery with other forms of angina [...] as of this encounter (statuses as of 04/29/2023) Immunizations Name Administration Dates Next Due COVID-19 mRNA, LNP-s, No Pre serve, 2-Dose Series (PayEase) 05/16/2021,09/23/2020,08/26/2020 Covid-19, Mrna, Lnp-s, Pf, B ivalent, 30 Mcg, IM, 12 yrs and above (PayEase) 05/09/2022 Pneumococcal Conjugate Vacc, 13 Valent (Prevnar) [...] encounter Miscellaneous Notes * Telephone Encounter - Treva Queen LPN - 04/29/2023 10:24 AM EDT Noc Ox order placed in [facility] for [employer]. documented in this encounter Plan of Treatment Upcoming Encounters Date Type Specialty Care Team Description 04/30/2023 Office Visit Cardiology Feliberto Diggs, DO [address] [place] [address] 04/30/2023 Laboratory Laboratory [facility] [address] [place] [address] 05/11/2023 Hospital Encounter Surgery Forrest Davidson, DO [address] [place] [address] 05/11/2023 Surgery Surgery Forrest Davidson, DO [address] [place] [address] ROBOTIC ARTHROPLASTY KNEE TOTAL 05/12/2023 Anticoagulation Pharmacy [facility] [address] [place] [address] 05/21/2023 Office Visit Orthopedics Forrest Davidson DO [address] [place] [address] 09/30/2023 Office Visit Family Medicine [place] can[place] III, MD [address] [place] [address], [place] [address] 10/01/2023 Office Visit Hematology Oncology Efraín Leone MD [address] [place] [address] 11/12/2023 Office Visit Dermatology Margarita Figueredo PA-C [address] [place] [phone] 02/25/2024 Imaging Radiology 04/21/2024 Office Visit Sleep Disorders Viktoriya White CRNP [address] [place] [address] Scheduled Procedures Name Priority Associated Diagnoses Date/Ti [...] filedocumented as of this encounter Care Teams Audio Visual Facilities Engineer Relationship Specialty Start Date End Date Shiva Rich III, MD [address] [place] [address], [place] [address] PCP - General Family Medicine 09/10/18 documented as of this encounter
--- OUTSIDE RECORDS SUMMARY | 2023-07-14 14:43 | External Medical Summary | Summary of Care ---
Author Name Unknown Organization [facility] Address [address] [facility] [place] [address] Phone [phone] Care Team Providers Care Truck Striker Name Role Phone Hilario ANDRADE MD, Shiva Kebede Primary Care Provider [phone] Reason for Visit * Reason Onset Date Comments Test Results Lab 04/20/2023 Encounter Details Date Type Department Care Team Description 04/20/2023 Telephone Hematology/Oncology [place] [address] [place] [address] Efraín Leone MD 200 [facility] [place] [address] Test Results Lab Allergies Active Allergy Reactions Severity Noted Date Comments Bee Venom Edema Other 01/10/2016 Lisinopril Cough 09/04/2016 documented as of this encounter (statuses as of 04/27/2023) Medications Medication Sig Dispensed Refills Start Date [...] (5mg) ALL OTHER EVENINGS OR DIRECTED BY [facility]. 105 Tablet 3 07/18/2022 Active [...] mg before bedtime. As instructed by the [facility]. 10 mL 0 04/01/2023 Active documented as of this encounter (statuses as of 04/27/2023) Active Problems Problem Noted Date Atherosclerosis of [place] tribe coronary arter y without angina pectoris 09/10/2022 [...] as of this encounter (statuses as of 04/27/2023) Resolved Problems Problem Noted Date Resolved Date Atherosclerotic heart diseas e of [place] tribe coronary artery with other forms of [...] as of this encounter (statuses as of 04/27/2023) Immunizations Name Administration Dates Next Due COVID-19 mRNA, LNP-s, No Pre serve, 2-Dose Series (TaxiMe) 05/16/2021,09/23/2020,08/26/2020 Covid-19, Mrna, Lnp-s, Pf, B ivalent, 30 Mcg, IM, 12 yrs and above (TaxiMe) 05/09/2022 Pneumococcal Conjugate Vacc, 13 Valent (Prevnar) [...] encounter Miscellaneous Notes * Telephone Encounter - SALVADOR Garcia - 04/20/2023 12:38 PM EDT Spoke to patient, scheduled appointment tomorrow at 1:30 pm. * Telephone Encounter - Dena Weller LPN - 04/20/2023 12:06 PM EDT Left message on patient's phone to call office. Also sent [employer] message to patient. Scheduling: Please call patient to offer appointment with Dr. Leone on 04/21/23 tomorrow afternoon to overbook. (Per Dr. Leone below) Thanks. ----- Message from Efraín Leone MD sent at 04/20/2023 7:20 AM EDT ----- I reviewed her blood workup done on 04/08/2023: -hemoglobin level further dropped down to around 9.5, MCV 96, normal WBC and normal Platelet count -Absolute reticulocyte count is slightly on the higher side around 110,000 suggest bone marrow is trying to make the red blood cell. -evidence of iron deficiency, B12 or folic acid deficiency -overall no worsening paraprotein level noted Not sure about the exact cause of the drop in the hemoglobin level at this time I see that she is coming to [facility] clinic on 04/21/2023 around 12:30 p.m.. I would like to see her after that. (overbook.) documented in this encounter Plan of Treatment Upcoming Encounters Date Type Specialty Care Team Description 04/29/2023 [facility] [address] [facility] [place] [address] 04/30/2023 Office Visit Cardiology Feliberto Diggs O, DO [address] [place] [address] 05/11/2023 Hospital Encounter Surgery Forrest Davidson, DO [address] [place] [address] 05/11/2023 Surgery Surgery Forrest Davidson, DO [address] [place] [address] ROBOTIC ARTHROPLASTY KNEE TOTAL 05/12/[address] [facility] [address] 05/21/2023 Office Visit Orthopedics Forrest Davidson, [address] [place] [address] 09/30/2023 Office Visit Family Medicine [place] IIIShiva MD [address] [facility] [address] 10/01/2023 Office Visit Hematology Oncology Efraín Leone MD [address] [place] [address] 11/12/2023 Office Visit Dermatology Margarita Figueredo PA-C [address] [place] [phone] 02/25/2024 Imaging Radiology 04/21/2024 Office Visit Sleep Disorders Viktoriya White CRNP [address] [place] [address] Scheduled Procedures Name Priority Associated Diagnoses Date/Ti [...] 04/16/2024 04/16/2023, 0807/2022, 10/06/2022, Additional history exists DTaP,Tdap,and Td Vaccines [...] filedocumented as of this encounter Care Teams Truck Striker Relationship Specialty Start Date End Date Shiva Rich III, MD [address] [place] [address] PCP - General Family Medicine 09/10/18 documented as of this encounter
--- OUTSIDE RECORDS SUMMARY | 2023-07-14 14:43 | External Medical Summary | Summary of Care ---
Author Name Unknown Organization [facility] Address [address] [facility] [place] [address] Phone [phone] Care Team Providers Care Criminal Court Judge Name Role Phone Hilario ANDRADE MD, Collette Kebede Primary Care Provider [phone] Reason for Visit * Reason Comments eRx-Medication Refill Encounter Details Date Type Department Care Team Description 04/30/2023 Refill Family Practice [facility] [place] [facility] [place] [address] Collette Mello III, MD 200 [facility] [place] [address] Allergies Active Allergy Reactions Severity Noted Date Comments Bee Venom Edema Other 01/10/2016 Lisinopril Cough 09/04/2016 documented as of this encounter (statuses as of 05/01/2023) Medications Medication Sig Dispensed Refills Start Date [...] the morning. 30 Tablet 12 2 Active Metoprolol Succinate ER 25 MG Oral Tablet Extended Release 24 Hour (toPROL XL)Indications:Paro xysmal atrial fibrillation (HCC) Take 0.5 Tablets (12.5 mg) by mouth in the morning and 0.5 Tablets (12.5 mg) before bedtime. 30 Tablet 5 2 Active Additional Information Patient taking differently: 25 [...] DIRECTED BY [facility]. 105 Tablet 3 2 Active Multi [...] mg before bedtime. As instructed by the [facility]in [facility]. 10 mL 0 3 Active metFORMIN HCl 500 MG Oral Tablet (Glucophage) TAKE 2 TABLETS BY MOUTH TWO TIMES DAILY WITH MORNING AND EVENING MEALS. 360 Tablet 1 3 Active amLODIPine Besylate 5 MG Oral Tablet (Norvasc) Take 1 Tablet by mouth in the morning. 34 Tablet 11 3 Active metFORMIN HCl 500 MG Oral Tablet (Glucophage) TAKE 2 TABLETS BY MOUTH TWO TIMES DAILY WITH MORNING AND EVENING MEALS 360 Tablet 3 2 05/01/20 23 Discontinued documented as of this encounter (statuses as of 05/01/2023) Active Problems Problem Noted Date Atherosclerosis of tribe coronary arter y without angina pectoris [...] as of this encounter (statuses as of 05/01/2023) Resolved Problems Problem Noted Date Resolved Date Atherosclerotic heart diseas e of tribe coronary artery with other forms of [...] as of this encounter (statuses as of 05/01/2023) Immunizations Name Administration Dates Next Due COVID-19 mRNA, LNP-s, No Pre serve, 2-Dose Series (Xetal) 05/16/2021,09/23/2020,08/26/2020 Covid-19, Mrna, Lnp-s, Pf, B ivalent, [...] encounter Miscellaneous Notes * Telephone Encounter - Jessa Rousseau RPh - 05/01/2023 8:53 AM EDTSigned Prescriptions: Disp Refills metFORMIN HCl 500 MG Oral Tablet (Glucopha*360 Ta*1 Sig: TAKE 2 TABLETS BY MOUTH TWO TIMES DAILY WITH MORNING AND EVENING MEALS.Authorizing Provider: COLLETTE MELLO III User: JESSA ROUSSEAU documented in this encounter Plan of Treatment Upcoming Encounters Date Type Specialty Care Team Description 05/11/2023 Hospital Encounter Surgery Forrest Davidson, [address] [place] [address] 05/11/2023 Surgery Surgery Forrest Davidson DO [address] [place] [address] ROBOTIC ARTHROPLASTY KNEE TOTAL 05/12/2023 [facility] Pharmacy [facility] [address] [place] [address] 05/21/2023 Office Visit Orthopedics Forrest Davidson, [address] [place] [address] 09/30/2023 Office Visit Family Medicine Hilario IIICollette MD [address] [place] [address] 10/01/2023 Office Visit Hematology Oncology Efraín Leone MD [address] [place] [address] 11/12/2023 Office Visit Dermatology Margarita Figueredo PA-C [address] [place] [phone] 02/25/2024 Imaging Radiology 04/21/2024 Office Visit Sleep Disorders Viktoriya White CRNP [address] [place] [address] Scheduled Procedures Name Priority Associated Diagnoses Date/Ti [...] filedocumented as of this encounter Care Teams Criminal Court Judge Relationship Specialty Start Date End Date Collette Mello III, MD [address] [place] [address], [place] [address] PCP - General Family Medicine 09/10/18 documented as of this encounter
--- OUTSIDE RECORDS SUMMARY | 2023-07-14 14:43 | External Medical Summary | Summary of Care ---
Author Name Unknown Organization [facility] Address [address] [facility] [place] [address] Phone [phone] Care Team Providers Care Feed Adviser Name Role Phone Hilario ANDRADE MD, Shiva Kebede Primary Care Provider [phone] Reason for Visit * Reason Onset Date Comments Test Results Lab 04/20/2023 Encounter Details Date Type Department Care Team Description 04/20/2023 Telephone Hematology/Oncology Maninder [place] [address] [place] [address] Efraín Leone MD 200 [facility] [place] [address] Test Results Lab Allergies Active Allergy Reactions [...] (5mg) ALL OTHER EVENINGS OR DIRECTED BY [facility]. 105 Tablet 3 07/18/2022 Active [...] mg before bedtime. As instructed by the [facility]. 10 mL 0 04/01/2023 Active documented as of this encounter (statuses as of 04/27/2023) Active Problems Problem Noted Date Atherosclerosis of [place] coronary arter y without angina pectoris 09/10/2022 [...] Resolved Date Atherosclerotic heart diseas e of [place] coronary artery with other forms of angina [...] mRNA, LNP-s, No Pre serve, 2-Dose Series (Beem) 05/16/2021,09/23/2020,08/26/2020 Covid-19, Mrna, Lnp-s, Pf, B ivalent, 30 Mcg, IM, 12 yrs and above (Beem) 05/09/2022 Pneumococcal Conjugate Vacc, 13 Valent (Prevnar) [...] patient's phone to call office. Also sent [employer] message to patient. Scheduling: Please call patient [...] I see that she is coming to [facility] clinic on 04/21/2023 around 12:30 p.m.. I would like to see her after that. (overbook.) documented in this encounter Plan of Treatment Upcoming Encounters Date Type Specialty Care Team Description 04/29/2023 [facility] [address] 60 [facility] [place] [address] 04/30/2023 Office Visit Cardiology Feliberto Diggs O, DO [address] [place] [address] 05/11/2023 Hospital Encounter Surgery Forrest Davidson, DO [address] [place] [address] 05/11/2023 Surgery Surgery Forrest Davidson, DO [address] [place] [address] ROBOTIC ARTHROPLASTY KNEE TOTAL 05/12/2023 [facility] [address] [facility] [address] 05/21/2023 Office Visit Orthopedics Forrest Davidson, [address] [place] [address] 09/30/2023 Office Visit Family Medicine [place] IIIShiva MD [address] [facility] [address] 10/01/2023 Office Visit Hematology Oncology Efraín Leone MD [address] [place] [address] 11/12/2023 Office Visit Dermatology Margarita Figueredo PA-C [address] [place] [phone] 02/25/2024 Imaging Radiology 04/21/2024 Office Visit Sleep Disorders Viktoriya White CRNP [address] [place] [address] Scheduled Procedures Name Priority Associated Diagnoses Date/Ti [...] filedocumented as of this encounter Care Teams Feed Adviser Relationship Specialty Start Date End Date Shiva Rich III, MD [address] [place] [address] PCP - General Family Medicine 09/10/18 documented as of this encounter
--- OUTSIDE RECORDS SUMMARY | 2023-07-14 14:43 | External Medical Summary | Summary of Care ---
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 Davidson [facility] 05/11/23 Encounter Details Date Type Department Care Team Description 04/30/2023 Office Visit Cardiology, [facility] [address] [place] [address] Feliberto Diggs, DO [address] [facility] [place] [address] PAF (paroxysmal atrial fibrillation) ([facility])*; Chronic heart failure with reduced ejection fraction and diastolic dysfunction (HCC); Anemia, unspecified type Allergies Active Allergy Reactions Severity Noted Date [...] mg before bedtime. As instructed by the [facility]. 10 mL 0 04/01/2023 Active amLODIPine Besylate 5 MG Oral Tablet (Norvasc) Take 1 Tablet by mouth in the morning. 34 Tablet 11 04/30/2023 Active documented as of this encounter (statuses as of 04/30/2023) Active Problems Problem Noted Date Atherosclerosis of rincon coronary arter y without angina pectoris 09/10/2022 [...] Resolved Date Atherosclerotic heart diseas e of rincon coronary artery with other forms of angina [...] mRNA, LNP-s, No Pre serve, 2-Dose Series ([employer]) 05/16/2021,09/23/2020,08/26/2020 Covid-19, Mrna, Lnp-s, Pf, B ivalent, [...] Date Smoking Tobacco: Never Smokeless Tobacco: Never Tobacco Cessation:Counseling Given: Not Answered Alcohol Use Standard Drinks/Week Comments Yes 0 [...] Sign Reading Time Taken Comments Blood Pressure 155/74 04/30/2023 2:32 PM EDT Pulse 56 04/30/2023 2:32 PM EDT Temperature - - Respiratory Rate 16 04/30/2023 2:32 PM EDT Oxygen Saturation - - Inhaled Oxygen Concentration - - Weight 98.5 kg (217 lb 1.6 oz) 04/30/2023 2:32 P M EDT Height - - Body Mass Index 37.27 04/21/2023 12:25 PM EDT documented in this encounter Progress Notes * Feliberto Diggs DO - 04/30/2023 2:38 PM EDT SUBJECTIVE: Patient returns today for preoperative cardiovascular evaluation prior to total knee replacement. History of paroxysmal atrial fibrillation status post external direct current cardioversion 04/28/2022, sinus node arrest during hours of sleep, hypertension, cerebral vascular accident 02/2017, carotid vascular disease, and dyslipidemia. Feeling well from a cardiovascular perspective. Denies chest pain or unusual shortness of breath. No orthopnea, PND, or lower extremity edema. No palpitations, lightheadedness, dizziness, syncope, ornear syncope. Tolerating medications listed below. Blood pressure elevated. Knee replacement scheduled May 11, 2023. ECG personally reviewed April 23, 2023: Sinus bradycardia with first-degree AV block. External direct current cardioversion report April 28, 2022: After informed consent was obtained. Sedation was given by anesthesia. The patient then received 300 J of biphasic energy converting her to normal sinus rhythm. She was recovered in the holding area of the Insurance Claims Analyst. She was then returned to her room in stable condition. 2D echocardiogram report July 22, 2022: The qualitative LV ejection fraction is 55-59% (normal). The LV wall thickness is mildly increased (concentric). The left ventricular diastolic function is normal. There is mild mitral annular calcification. Mild mitral regurgitation is present. 2D echocardiogram [facility] 04/26/2022: The left ventricular ejection fraction is 30-35% Moderate biatrial enlargement Moderate aortic valve sclerosis without stenosis. Mild aortic regurgitation. Moderate mitral regurgitation. Moderate tricuspid regurgitation. 2D echocardiogram report November 05, 2021: The left ventricular cavity size is normal. The LV wall thickness is mildly increased (concentric). The left ventricular wall motion is normal. The qualitative LV ejection fraction is 55-59% (normal). The left ventricular diastolic function is mildly abnormal (grade I). Mild aortic valve sclerosis is present. There is mild mitral annular calcification. Mild mitral regurgitation is present. There is no evidence of pulmonary hypertension. Cardiac catheterization report [facility] summary November 20, 2021: Mild nonobstructive CAD. Coronary arteries demonstrating minimal luminal irregularities. Elevated left ventricular end-diastolic pressure. Hemodynamics Rest Ao: 156/72/109 Final Ao: 158/72/108 LV: 148/9/20 Dominant: Right Left Main (% Stenosis): Ostial (20% ostial taper) LAD (% Stenosis): Mid (Luminal irregularities, 10%) D1 (% Stenosis): Normal (Moderate caliber, bifurcating vessel) Circumflex (% Stenosis): Mid (Luminal irregularities, 10%) OM1 (% Stenosis): Normal (Small vessel) L PL1 (% Stenosis): Normal L PL2 (% Stenosis): Normal RCA (% Stenosis): Distal (Luminal irregularities, 10%) R PDA (% Stenosis): Normal R PL1 (% Stenosis): Normal AM (% Stenosis): Normal Ramus (% Stenosis): Normal Carotid Duplex report 12/2018: Right carotid artery duplex examination indicates evidence of an occlusion of the distal internal carotid artery. Left carotid artery duplex examination indicates evidence of less than 50% stenosis of the internalcarotid artery. Carotid duplex report 05/2018: Right carotid artery duplex examination indicates evidence of an occlusion of the distal internal carotid artery. Left carotid artery duplex examination indicates evidence of less than 50% stenosis of the internalcarotid artery. Carotid duplex report December 04, 2017: Right carotid artery duplex examination indicates evidence of a distal occlusion of the internal carotid artery. Left carotid artery duplex examination indicates evidence of 50-69% stenosis of the internal carotid artery. Lower extremity venous duplex report, 03/2018: No deep venous thrombus detected in the right and left lower extremity as discussed above. ROS: All others negative other than those noted in the HPI. 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 ([facility]) I69.354 Paroxysmal atrial fibrillation ([facility]) I48.0 Left renal mass N28.89 Right internal carotid occlusion I65.21 Morbid obesity due to excess calories ([facility]) E66.01 History of colon cancer Z85.038 History of basal cell cancer Z85.828 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 Z86.006 Dyslipidemia, goal LDL below 70 E78.5 SALVADOR on CPAP G47.33 PMB (postmenopausal bleeding) N95.0 Thickened endometrium R93.89 Endometrial polyp N84.0 Heart failure ([facility]) I50.9 Body mass index (BMI) of 40.0 to 44.9 in adult ([facility]) Z68.41 Atherosclerosis of rincon coronary artery without angina pectoris I25.10 Family History Problem Relation Age of Onset Hypertension Mother Thyroid Disorder Father accident No Past Hx Sister No Past Hx Brother Heart Disorder Grandfather (Maternal) [place] Breast Cancer No significant family history Social History Tobacco Use Smoking status: Never Smoker Smokeless tobacco: Never Used Substance Use Topics Alcohol use: Yes Comment: moderate scotch is drink of choice - none since 12/2016 Drug use: No Review of patient's allergies indicates: Allergen Reactions [...] [facility]. 105 Tablet 3 Multi Vitamin [...] mg before bedtime. As instructed by the [facility]. 10 mL0 Diclofenac Sodium 1 % External Gel (Voltaren) Apply topically to affected area 4 times a day. Applyto knees (Patient not taking: Reported on 04/15/2023) 350 g 6 No current facility-administered medications for this visit. Lipid Panel Results: TSH(uIU/mL) Vivian Dt/Tm Resulted Value Status 09/17/16 2:49P 09/17/16 2.39 FINAL CBC Results: OBJECTIVE/PHYSICAL EXAMINATION: BP 155/74 (BP Site: Left Arm, BP Position: Sitting, BP Cuff Size: Large) | Pulse 56 | Resp 16 | Wt 98.5 kg (217 lb 1.6 oz) | BMI 37.27 kg/m | BSA 2.11 m General: NAD, AAO x3, well nourished. Morbid obesity. HEENT: Normocephalic. Atraumatic. Conjunctivapink, no scleral icterus. No carotid bruits, the carotid upstrokes are brisk. No JVD. No HJR Heart:Regular normal S-1 and S-2 no S-3 or S-4 gallop. No murmurs or rubs appreciated. PMI is not displaced. No RV heave. Lungs: Clear bilateral without rales , rhonchi, or wheeze. Abdomen: Normal bowel sounds. Soft. Nontender. No masses or organomegaly. No abdominal bruits. Extremities: 1+ B/L LE nonpitting edema L > R. No clubbing, or cyanosis. Pulses: radial=2/4, Dorsalis pedis =2/4, posterior tibial=2/4. Neuro: Mild left upper and lower extremity weakness. ASSESSMENT: 1. Paroxysmal atrial fibrillation - DCCV 04/2022 - rhythm control with amiodarone and appropriately anticoagulated with warfarin 2. Heart failure with reduced ejection fraction - normalization of LV function status post cardioversion 04/2022 - compensated 3. Sinus arrest during presumed hours of sleep, otherwise asymptomatic. -presumed secondary to vagal etiology in setting of SALVADOR -tolerating CPAP 4. HTN - uncontrolled 5. CVA secondary to carotid vascular disease with right-sided carotid arterial occlusion 6. Lower extremity lymphedema - asymmetric L>R 7. Dyslipidemia - controlled; tolerating 80 mg atorvastatin + zetia 8. DM-2 : Controlled per most recent hemoglobin A1c 5.6% 9. IgG lambda paraproteinemia PLAN: Tsh with free t4 if indicated Add amlopdine 5mg daily. Patient is considered moderate perioperative cardiovascular risk. No further cardiac testing would reduce risk at this time. Cardiac catheterization demonstrating minimal, nonobstructive coronary disease November 20, 2021. Continue amiodarone, beta-aline, and low-dose aspirin uninterrupted perioperatively. Warfarin may be held 5 days prior to surgery. Anticoagulation managed via the [facility] clinic. Reduce amiodarone to 100 mg daily approximately 1 week post knee replacement. Encouraged compliance with CPAP. Follow Up: Return in about 6 months (around 10/30/2023). I spent a total of 40-54 minutes (exact time 41 mins) on the date of service in preparation, delivery, and documentation of the care provided to Nenita Fleming excluding any time spent in the performance of separately billed services. Feliberto Diggs DO, FACC Associate Cardiology - Jerson Gambino documented in this encounter Nursing Notes * Laura Linn CMA - 04/30/2023 2:36 PM EDT Chief Complaint Patient presents with Pre-op Clearance R TKA Dr. Davidson [facility] 05/11/23 Examination Room: 11 Name: Nenita Fleming Date of : (1955). Reason for Visit: Pre-op Interim Hospitalization(s): none Problems/Concerns: denies Chest Pain/SOB: denies [facility] Discussed: No My [facility] is a way you can talk to your provider online through e-mail. Would you like to sign up? I can activate it for you? ALREADY ACTIVE Patient was instructed to not get up on the exam table until directed and assisted by their provider; patient is to remain seated in the chair/ wheelchair/ exam table for fall prevention and safety reasons. Patient is aware to have assistance to step down off exam table with personnel. Patient voiced full comprehension of instructions. documented in this encounter Plan of Treatment Upcoming Encounters Date Type Specialty Care Team Description 05/11/2023 Hospital Encounter Surgery Forrest Davidson DO [address] [place] [address] 05/11/2023 Surgery Surgery Forrest Davidson DO [address] [place] [address] ROBOTIC ARTHROPLASTY KNEE TOTAL 05/12/2023 [facility]ticoagulation [facility] [address] [facility] [address] 05/21/2023 Office Visit Orthopedics Forrest Davidson, [address] [place] [address] 09/30/2023 Office Visit Family Medicine Hilario Shiva ANDRADE MD [address] [place] [address] 10/01/2023 Office Visit Hematology Oncology Efraín Leone MD [address] [place] [address] 11/12/2023 Office Visit Dermatology Margarita Figueredo PA-C [address] [place] [phone] 02/25/2024 Imaging Radiology 04/21/2024 Office Visit Sleep Disorders Viktoriya White CRNP [address] [place] [address] Pending Results Name Type Priority Associated Diagnoses Date /Time TSH WITH FREE T4 IF INDICATED Lab Routine PAF (paroxysmal atrial fibrillation) ([facility]) 04/30/2023 3:17 PM EDT Scheduled Orders Name Type Priority Associated Diagnoses Orde r Schedule TSH WITH FREE T4 IF INDICATED Lab Routine PAF (paroxysmal atrial fibrillation) ([facility]) Expected: 04/30/2023, Expires: 04/30/2024 Scheduled Procedures Name Priority Associated Diagnoses Date/Ti [...] (paroxysmal atrial fibrillation) (HCC)- Primary Atrial fibrillation Chronic heart failure with reduced ejection fraction and diastolic dysfunction (HCC) Anemia, unspecified type Knee osteoarthritis Osteoarthrosis, unspecified whether generalized or localized, lower leg documented in this encounter Care Teams 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
--- OUTSIDE RECORDS SUMMARY | 2023-07-14 14:43 | External Medical Summary | Summary of Care ---
Author Name Unknown Organization [facility] Address [address] [facility] [place] [address] Phone [phone] Care Team Providers Care Music Executive Name Role Phone Hilario ANDRADE MD, Shiva Kebede Primary Care Provider [phone] Reason for Visit * Reason Comments Dosage Adjustment Via Phone (anticoag Cl inic) Encounter Details Date Type Department Care Team Description 04/29/2023 Anticoagulation Pharmacy Call Center [phone] [place] [address] [facility] [address] [facility] [place] [address] Paroxysmal atrial fibrillation (HCC)* Allergies Active Allergy Reactions Severity Noted Date [...] (5mg) ALL OTHER EVENINGS OR DIRECTED BY [facility]. 105 Tablet 3 07/18/2022 [...] mg before bedtime. As instructed by the [facility]. 10 mL 0 04/01/2023 Active documented as of this encounter (statuses as of 04/29/2023) Active Problems Problem Noted Date Atherosclerosis of [place] coronary arter y without angina pectoris 09/10/2022 [...] Resolved Date Atherosclerotic heart diseas e of [place] coronary artery with other forms of angina [...] mRNA, LNP-s, No Pre serve, 2-Dose Series ([employer]) 05/16/2021,09/23/2020,08/26/2020 Covid-19, Mrna, Lnp-s, Pf, B ivalent, 30 Mcg, IM, 12 yrs and above ([employer]) 05/09/2022 Pneumococcal Conjugate Vacc, 13 Valent (Prevnar) [...] of this encounter Progress Notes * Heydi Frias RPh - 04/29/2023 1:17 PM EDT Spoke to Nenita to review Lovenox bridging instructions for upcoming procedure. Lovenox dosing schedule faxed to pharmacy previously with prescription. Patient confirmed Lovenox was obtained from the pharmacy as prescribed. Used Lovenox previously and confirmed understanding of the following: Your Lovenox dose is 100 mg which will be injected every 12 hours as noted on your dosing schedule. Administration: Lovenox Should be Injected on either side of the abdomen 2 inches from the belly button. Injection site should be rotated with each injection. Wash hands and swab injection area with alcohol. Remove needle cap Pinch and inch of skin and insert the needle at a 90 degree angle into the fold of skin, inject the full contents of the syringe. Remove needle from the skin and press firmly on plunger to activate the safety device. Discard in sharps container. Patient verbalized understanding of above. Patient aware last dose of coumadin prior to the procedure will be 05/05/23 and will bridge with Lovenox as outlined on dosing schedule in letters. Patient aware to contact [facility] with any questions or concerns regarding bridge or should procedure be cancelled or rescheduled. Thanks, Heydi Frias, PharmD Clinical Pharmacist [facility] ([facility]) (Formerly Telepharmacy) [phone] 04/29/2023 1:18 PM documented in this encounter Plan of Treatment Upcoming Encounters Date Type Specialty Care Team Description 04/30/2023 Office Visit Cardiology Feliberto Diggs DO [address] [place] [address] 04/30/2023 Laboratory Laboratory Wilfredo Gambino [address] [place] [address] 05/11/2023 Hospital Encounter Surgery Forrest Davidson, DO [address] [place] [address] 05/11/2023 Surgery Surgery Forrest Davidson, DO [address] [place] [address] ROBOTIC ARTHROPLASTY KNEE TOTAL 05/12/2023 [facility]agulation [facility] [address] [facility] [address] 05/21/2023 Office Visit Orthopedics Forrest Davidson, DO [address] [place] [address] 09/30/2023 Office Visit Family Medicine Ritchie IIIShiva MD [address] [place] [address] 10/01/2023 Office Visit Hematology Oncology Efraín Leone MD [address] [place] [address] 11/12/2023 Office Visit Dermatology Margarita Figueredo PA-C [address] [place] [id number] 02/25/2024 Imaging Radiology 04/21/2024 Office Visit Sleep Disorders Viktoriya White CRNP [address] [place] [address] Scheduled Procedures Name Priority Associated Diagnoses Date/Ti [...] 03/06/2022, Additional history exists GFR 03/31/2024 03/31/2023, 0212/2022, 07/22/2022, Additional history exists COLONOSCOPY-EVERY 3 YRS [...] Paroxysmal atrial fibrillation (HCC)- Primary Atrial fibrillation Knee osteoarthritis Osteoarthrosis, unspecified whether generalized or localized, lower leg documented in this encounter Care Teams Music Executive Relationship Specialty Start Date End Date Shiva Rich III, MD [address] [place] [address] PCP - General Family Medicine 09/10/18 documented as of this encounter
--- OUTSIDE RECORDS SUMMARY | 2023-07-14 14:43 | External Medical Summary ---
Author Name Unknown Address Unknown Organization [facility] [address] [place] [address] Laboratory Report Ordering Provider Test Date Status ALMA PORTILLO 04/30/2023 15:17:35 Final Observation Date Value Abnormality Reference (Units ) Status WBC, Total 04/30/2023 15:17:35 6.03 4.00-10.8 0 (K/uL) Final RBC 04/30/2023 15:17:35 3.48 3.85-5.15 (M/uL) Final Hemoglobin 04/30/2023 15:17:35 11.0 Below low normal 12 .0-15.3 (g/dL) Final HCT 04/30/2023 15:17:35 33.6 Below low normal 36. 0-45.2 (%) Final MCV 04/30/2023 15:17:35 96.6 81.5-97.5 (fL) Final MCH 04/30/2023 15:17:35 31.6 27.0-34.0 (pg) Final MCHC 04/30/2023 15:17:35 32.7 32.0-36.0 (g/dL) Final RDW 04/30/2023 15:17:35 14.9 11.5-15.5 (%) Final Platelets 04/30/2023 15:17:35 286 140-400 (K /uL) Final MPV 04/30/2023 15:17:35 9.3 6.6-11.1 ( fL) Final Performing Location [facility] [address] [place] [address]
--- OUTSIDE RECORDS SUMMARY | 2023-07-14 14:43 | External Medical Summary ---
Author Name Unknown Address Unknown Organization [facility] [address] [place] [address] Laboratory Report Ordering Provider Test Date Status ALMA OPRTILLO 04/30/2023 15:17:35 Final Observation Date Value Abnormality Reference (Units ) Status SYNC LEUKOCYTES IN BLOOD BY AUTOMATED COUNT 04/30/2023 15:17:35 6.03 4.00-10.80 (K/uL) Final Segs 04/30/2023 15:17:35 60.5 40.0-75.0 (%) Final Lymphs % 04/30/2023 15:17:35 26.5 18.0-42.0 (%) Final Monos 04/30/2023 15:17:35 10.9 1.0-11.0 (%) Final Eosinophils 04/30/2023 15:17:35 1.8 0.0-6.0 (%) Final Basos 04/30/2023 15:17:35 0.3 0.0-2.0 (%) Final Absolute Segs 04/30/2023 15:17:35 3.64 1.80-7.70 (K/uL) Final Lymphs, absolute 04/30/2023 15:17:35 1.60 1.00-4.80 (K/ul) Final Monos, Abs 04/30/2023 15:17:35 0.66 0.00-1.10 (K/uL) Final Eos, Abs 04/30/2023 15:17:35 0.11 0.00-0.70 (K/uL) Final Basos, Abs 04/30/2023 15:17:35 0.02 0.00-0.20 (K/uL) Final Performing Location [facility] [place] [address]
--- OUTSIDE RECORDS SUMMARY | 2023-07-14 14:43 | External Medical Summary | Summary of Care ---
Author Name Unknown Organization [facility] Address [address] [facility] [place] [address] Phone [phone] Care Team Providers Care Blueprint Blocker Name Role Phone Hilario ANDRADE MD, Shiva Kebede Primary Care Provider [phone] Reason for Visit * Reason Comments Outpatient Testing Encounter Details Date Type Department Care Team Description 04/30/2023 Laboratory Laboratory, [facility] [id number] [facility] 132 [place] [address] History of basal cell cancer; PAF (paroxysmal atrial fibrillation) (HCC) Allergies Active Allergy Reactions Severity Noted [...] mg before bedtime. As instructed by the [facility]. 10 mL 0 04/01/2023 Active amLODIPine Besylate 5 MG Oral Tablet (Norvasc) Take 1 Tablet by mouth in the morning. 34 Tablet 11 04/30/2023 Active documented as of this encounter (statuses as of 04/30/2023) Active Problems Problem Noted Date Atherosclerosis of [place] coronary arter y without angina pectoris 09/10/2022 [...] mRNA, LNP-s, No Pre serve, 2-Dose Series ([employer]) 05/16/2021,09/23/2020,08/26/2020 Covid-19, Mrna, Lnp-s, Pf, B ivalent, 30 Mcg, IM, 12 yrs and above ([employer]) 05/09/2022 Pneumococcal Conjugate Vacc, 13 Valent (Prevnar) [...] Davidson, DO [address] [place] [address] 05/11/2023 Surgery Surgery Forrest Davidson, [address] [place] [address] ROBOTIC ARTHROPLASTY KNEE TOTAL 05/12/2023 [facility] [address] [place] [address] 05/21/2023 Office Visit Orthopedics Forrest Davidson, [address] [place] [address] 09/30/2023 Office Visit Family Medicine Hilario Shiva ANDRADE MD 200 [facility] [place] [address] 10/01/2023 Office Visit Hematology Oncology Efraín Leone MD [address] [place] [address] 11/12/2023 Office Visit Dermatology Margarita Figueredo PA-C [address] [place] [address] 02/25/2024 Imaging Radiology 04/21/2024 Office Visit Sleep Disorders Viktoriya White CRNP [address] [place] [address] Pending Results Name Type Priority Associated Diagnoses Date /Time TSH WITH FREE T4 IF INDICATED Lab Routine PAF (paroxysmal atrial fibrillation) (HCC) 04/30/2023 3:17 PM EDT Scheduled Procedures Name Priority Associated [...] Not on filedocumented as of this encounter Procedures Procedure Name Priority Date/Time Associated Diagnosis Comments DIFFERENTIAL, AUTOMATED STAT 04/30/2023 3:17 PM EDT History of basal cell cancer CBC STAT 04/30/2023 3:17 PM EDT History of basal cell cancer CBC STAT 04/30/2023 3:17 PM EDT History of basal cell cancer documented in this encounter Results * DIFFERENTIAL, AUTOMATED (04/30/2023 3:17 PM EDT) WBC 6.03 4.00 - 10.80 K/uL 04/30/2023 3:25 PM EDT LABORATORY [place] 57-10 Neutrophils % 60.5 40.0 - 75.0 % 04/30/2023 3:25 PM EDT LAB[facility]ATORY [place] 57-10 Lymphocytes % 26.5 18.0 - 42.0 % 04/30/2023 3:25 PM EDT LABORATORY [place] 57-10 Monocytes % 10.9 1.0 - 11.0 % 04/30/2023 3:25 PM EDT LABORATORY [place] 57-10 Eosinophils % 1.8 0.0 - 6.0 % 04/30/2023 3:25 PM EDT LAB[facility]ATORY [place] 57-10 Basophils % 0.3 0.0 - 2.0 % 04/30/2023 3:25 PM EDT LAB[facility]ATORY [place] 57-10 Absolute Neutrophils 3.64 1.80 - 7.70 K/uL 04/30/2023 3:25 PM EDT LAB[facility]ORY [place] 57-10 Absolute Lymphocytes 1.60 1.00 - 4.80 K/ul 04/30/2023 3:25 PM EDT LAB[facility]ATORY [place] 57-10 Absolute Monocytes 0.66 0.00 - 1.10 K/uL 04/30/2023 3:25 PM EDT LAB[facility]ORY [place] 57-10 Absolute Eosinophils 0.11 0.00 - 0.70 K/uL 04/30/2023 3:25 PM EDT LAB[facility]ORY [place] 57-10 Absolute Basophils 0.02 0.00 - 0.20 K/uL 04/30/2023 3:25 PM EDT LAB[facility]ATORY [place] 57-10 Blood Venous blood specimen / Unknown Venipuncture / Unknown 04/30/2023 3:17 PM EDT 04/30/2023 3:17 PM EDT Forrest Davidson DO LAB BLOOD OR DERABLES LAB[facility]ORY [facility] 57[facility]10 [address] [place] [address] * (ABNORMAL) CBC (04/30/2023 3:17 PM EDT) WBC 6.03 4.00 - 10.80 K/uL 04/30/2023 3:25 PM EDT LABORATORY [place] 57-10 RBC 3.48 3.85 - 5.15 M/uL 04/30/2023 3:[address] [facility] HGB 11.0(L) 12.0 - 15.3 g/dL 04/30/2023 3:[address] [facility] HCT 33.6(L) 36.0 - 45.2 % 04/30/2023 3:25 PM EDT LAB[facility]ATORY [place] 57-10 MCV 96.6 81.5 - 97.5 fL 04/30/2023 3:25 PM EDT LAB[facility]ATORY [place] 57-10 MCH 31.6 27.0 - 34.0 pg 04/30/2023 3:25 PM EDT LAB[facility]ORY [place] 57[facility]10 MCHC 32.7 32.0 - 36.0 g/dL 04/30/2023 3:25 PM EDT LAB[facility]ORY [place] 57-10 RDW 14.9 11.5 - 15.5 % 04/30/2023 3:25 PM EDT LAB[facility]ATORY [place] 57-10 PLT 286 140 - 400 K/uL 04/30/2023 3:25 PM EDT LAB[facility]ORY [place] 57[facility]10 MPV 9.3 6.6 - 11.1 fL 04/30/2023 3:25 PM EDT LAB[facility]ORY [place] 57-10 Blood Venous blood specimen / Unknown Venipuncture / Unknown 04/30/2023 3:17 PM EDT 04/30/2023 3:17 PM EDT Forrest Davidson DO LAB BLOOD OR DERABLES LAB[facility]ATORY [facility] [place] 57-10 [address] [place] [facility] [address] documented in this encounter Visit Diagnoses Diagnosis History of basal cell cancer Personal history of other malignant neoplasm of skin PAF (paroxysmal atrial fibrillation) (HCC) Atrial fibrillation Knee osteoarthritis Osteoarthrosis, unspecified whether generalized or localized, lower leg documented in this encounter Care Teams Blueprint Blocker Relationship Specialty Start Date End Date Shiva Rich III, MD 200 [facility] [place] [address] PCP - General Family Medicine 09/10/18 documented as of this encounter
--- OUTSIDE RECORDS SUMMARY | 2023-07-14 14:43 | External Medical Summary ---
Author Name Unknown Address Unknown Organization [id number]:LABORATORY [facility] - [address] [facility] [address] Laboratory Report Ordering Provider Test Date Status LUIS PERALTA 04/30/2023 15:17:35 Final Observation Date Value Abnormality Reference (Units ) Status TSH 04/30/2023 15:17:35 2.60 0.27-4.20 (uIU/mL) Final Performing Location LABORATORY C - [address] [facility] [address]
--- OUTSIDE RECORDS SUMMARY | 2023-07-14 14:43 | External Medical Summary | Summary of Care ---
Author Name Unknown Organization [facility] Address [address] [facility] [place] [address] Phone [phone] Care Team Providers Care Flavoring Maker Name Role Phone Hilario ANDRADE MD, Shiva Kebede Primary Care Provider [phone] Reason for Visit * Reason Onset Date Comments Test Results Lab 04/24/2023 Encounter Details Date Type Department Care Team Description 04/24/[address] [facility] [address] [place] [address] Forrest Davidson, [address] [place] [address] Test Results Lab Allergies Active Allergy Reactions [...] Active Problems Problem Noted Date Atherosclerosis of [place] coronary arter y without angina pectoris 09/10/2022 [...] Resolved Date Atherosclerotic heart diseas e of [place] coronary artery with other forms of angina [...] mRNA, LNP-s, No Pre serve, 2-Dose Series ([employer]) 05/16/2021,09/23/2020,08/26/2020 Covid-19, Mrna, Lnp-s, Pf, B ivalent, 30 Mcg, IM, 12 yrs and above ([employer]) 05/09/2022 Pneumococcal Conjugate Vacc, 13 Valent (Prevnar) [...] * Telephone Encounter - SALVADOR Garcia - 04/27/2023 12:45 PM EDT Lab scheduled as requested. * Addendum Note - Dena Weller LPN - 04/27/2023 12:20 PM EDTAddended by: DENA WELLER on: 04/27/2023 12:20 PM Modules accepted: Orders * Telephone Encounter - Dena Weller LPN - 04/27/2023 12:17 PM EDT Called and spoke to patient to notify, she will be at [facility] for an appointment on 04/30/23 and states that she will have the cbcd repeated then. Lab order placed for 04/30/23. Scheduling: Please schedule lab appointment for "cbcd" 04/30/23 at 3:30 pm at [facility]. Thanks. * Telephone Encounter - Efraín Leone MD - 04/24/2023 1:00 PM EDT She would a blood workup done on 04/23/2023, -hemoglobin level slightly improved to around 9.8, normal WBC and normal Platelet count, MCV 98, -reticulocyte count --> 124,000 which is on the higher side suggest bone marrow is recovering. Earlier blood workup showed no evidence of hemolysis. I am expecting gradual improvement of the hemoglobin level noted in the next couple of weeks Would like to repeat another CBCD in about 1 week. * Telephone Encounter - SALVADOR Sanchez - 04/24/2023 9:20 AM EDT Patient is scheduled for surgery with Dr. Davidson on 05/11. Dr. Davidson indicated patient wasfound to be anemic on pre op workup. Please advise if patient would be medically optimized prior tosurgery to proceed. Your input is appreciated. documented in this encounter Plan of Treatment Upcoming Encounters Date Type Specialty Care Team Description 04/29/2023 [facility] [address] [facility], [place] [address] 04/30/2023 Office Visit Cardiology Feliberto Diggs, DO [address] [place] [address] 04/30/2023 Laboratory Laboratory [facility] [address] [place], [place] [address] 05/11/2023 Hospital Encounter Surgery Forrest Davidson, DO [address] [place] [address] 05/11/2023 Surgery Surgery Forrest Davidson, DO [address] [place] [address] ROBOTIC ARTHROPLASTY KNEE TOTAL 05/12/2023 [facility] 60 [facility] [place], [place] [address] 05/21/2023 Office Visit Orthopedics Forrest Davidson, DO [address] [place] [address] 09/30/2023 Office Visit Family Medicine [place] III, Shiva Kebede MD [address] [place] [address], [place] [address] 10/01/2023 Office Visit Hematology Oncology Efraín Leone MD [address] [place] [address] 11/12/2023 Office Visit Dermatology Margarita Figueredo PA-C [address] [place] [address] 02/25/2024 Imaging Radiology 04/21/2024 Office Visit Sleep Disorders Viktoriya White CRNP [address] [place] [address] Scheduled Orders Name Type Priority Associated Diagnoses Orde r Schedule CBC WITH WBC DIFFERENTIAL Lab STAT History of basal cell cancer Expected: 04/30/2023 (Approximate), Expires: 04/27/2024 Scheduled Procedures Name Priority Associated Diagnoses Date/Ti [...] as of this encounter Visit Diagnoses Diagnosis History of basal cell cancer- Primary Personal history of other malignant neoplasm of skin Knee osteoarthritis Osteoarthrosis, unspecified whether generalized or localized, lower leg documented in this encounter Care Teams Flavoring Maker Relationship Specialty Start Date End Date Shiva Rich III, MD 200 [facility] [place] [address] PCP - General Family Medicine 09/10/18 documented as of this encounter
--- OUTSIDE RECORDS SUMMARY | 2023-07-14 14:43 | External Medical Summary | Summary of Care ---
Author Name Unknown Organization [facility] Address [address] [facility] [place] [address] Phone [phone] Care Team Providers Care Barrel Driller Name Role Phone Hilario ANDRADE MD, Shiva Kebede Primary Care Provider [phone] Reason for Visit * Reason Onset Date Comments Test Results Lab 04/20/2023 Encounter Details Date Type Department Care Team Description 04/20/2023 Telephone Hematology/Oncology [place] [address] [place] [address] Efraín Leone MD 200 [facility] [place] [address] Test Results Lab Allergies Active Allergy Reactions [...] (5mg) ALL OTHER EVENINGS OR DIRECTED BY [facility]. 105 Tablet 3 2 Active Multi [...] mg before bedtime. As instructed by the [facility]. 10 mL 0 3 Active metFORMIN HCl 500 MG Oral Tablet (Glucophage) TAKE 2 TABLETS BY MOUTH TWO TIMES DAILY WITH MORNING AND EVENING MEALS 360 Tablet 3 2 05/01/20 23 Discontinued documented as of this encounter (statuses as of 05/01/2023) Active Problems Problem Noted Date Atherosclerosis of [place] coronary arter y without angina pectoris 09/10/2022 [...] Resolved Date Atherosclerotic heart diseas e of [place] coronary artery with other forms of [...] mRNA, LNP-s, No Pre serve, 2-Dose Series ([employer]) 05/16/2021,09/23/2020,08/26/2020 Covid-19, Mrna, Lnp-s, Pf, B ivalent, [...] encounter Miscellaneous Notes * Telephone Encounter - Balbina Capps RN - 05/01/2023 11:[address] Leone: "Blood workup done on the 04/30/2023: -hemoglobin level improved to around 11 g/dL. Normal WBC and normal Platelet count. Hemoglobin level was around 9.8 earlier Okay to proceed with surgery." MyG response sent. * Telephone Encounter - SALVADOR Garcia - 04/20/2023 12:38 PM EDT Spoke to patient, scheduled appointment tomorrow at 1:30 pm. * Telephone Encounter - Dena Weller LPN - 04/20/2023 12:06 PM EDT Left message on patient's phone to call office. Also sent myG message to patient. Scheduling: Please call patient to offer appointment with Dr. Leone on 04/21/23 tomorrow afternoon to [facility]. (Per Dr. Leone below) Thanks. ----- Message [...] I see that she is coming to [facility] on 04/21/2023 around 12:30 p.m.. I would like to see her after that. (overbook.) documented in this encounter Plan of Treatment Upcoming Encounters Date Type Specialty Care Team Description 05/04/2023 Imaging Radiology 05/11/2023 Hospital Encounter Surgery Forrest Davidson, DO [address] [place] [address] 05/11/2023 Surgery Surgery Forrest Davidson, DO [address] [place] [address] ROBOTIC ARTHROPLASTY KNEE TOTAL 05/12/2023 Anticoagulation Pharmacy [facility] 58 60 [place] [address] 05/21/2023 Office Visit Orthopedics Forrest Davidson, [address] [place] [address] 09/30/2023 Office Visit Family Medicine [place] IIIShiva MD 200 [facility] [place] [address] 10/01/2023 Office Visit Hematology Oncology Efraín Leone MD 200 [facility] [place] [address] 11/12/2023 Office Visit Dermatology Margarita Figueredo PA-C 200 [facility] [place] [phone] 02/25/2024 Imaging Radiology 04/21/2024 Office Visit Sleep Disorders Viktoriya White CRNP [address] [place] [address] Scheduled Procedures Name Priority Associated Diagnoses Date/Ti [...] filedocumented as of this encounter Care Teams Barrel Driller Relationship Specialty Start Date End Date Hilario ANDRADE, Shiva Kebede MD [address] [place] [address] PCP - General Family Medicine 09/10/18 documented as of this encounter
--- OUTSIDE RECORDS SUMMARY | 2023-07-14 14:43 | External Medical Summary | Summary of Care ---
Author Name Unknown Organization [facility] Address [address] [facility] [place] [address] Phone [phone] Care Team Providers Care Process Project Engineer Name Role Phone Hilario ANDRADE MD, Shiva Kebede Primary Care Provider [phone] Reason for Visit * Reason Onset Date Comments Test Results Lab 04/24/2023 Encounter Details Date Type Department Care Team Description 04/24/2023 Telephone Orthopaedics [facility] [address] [place] [address] Forrest Davidson, [address] [place] [address] Test Results Lab Allergies Active Allergy Reactions [...] mg before bedtime. As instructed by the [facility]in [facility]. 10 mL 0 04/01/2023 Active documented as of this encounter (statuses as of 04/27/2023) Active Problems Problem Noted Date Atherosclerosis of [place] coronary arter y without angina pectoris 09/10/2022 [...] Resolved Date Atherosclerotic heart diseas e of [place] coronary artery with other forms of angina [...] mRNA, LNP-s, No Pre serve, 2-Dose Series ([employer]) 05/16/2021,09/23/2020,08/26/2020 Covid-19, Mrna, Lnp-s, Pf, B ivalent, 30 Mcg, IM, 12 yrs and above ([employer]) 05/09/2022 Pneumococcal Conjugate Vacc, 13 Valent (Prevnar) [...] as of this encounter Miscellaneous Notes * Addendum Note - Dena Weller LPN - 04/27/2023 12:20 PM EDTAddended by: DENA WELLER on: 04/27/2023 12:20 PM Modules accepted: Orders * Telephone Encounter - Dena eWller LPN - 04/27/2023 12:17 PM EDT Called and spoke to patient to notify, she will be at [facility] for an appointment on 04/30/23 and states that she will have the cbcd repeated then. Lab order placed for 04/30/23. Scheduling: Please schedule lab appointment for "cbcd" 04/30/23 at 3:30 pm at [facility]. Thanks. * Telephone Encounter - Efraín Leone [...] Specialty Care Team Description 04/29/2023 [facility] [address] 60 [place] [address] 04/30/2023 Office Visit Cardiology Feliberto Diggs, DO [address] [place] [address] 05/11/2023 Hospital Encounter Surgery Forrest Davidson, DO [address] [place] [address] 05/11/2023 Surgery Surgery Forrest Davidson, DO [address] [place] [address] ROBOTIC ARTHROPLASTY KNEE TOTAL 05/12/2023 Anticoagulation Pharmacy [facility] 58 60 [place] [address] 05/21/2023 Office Visit Orthopedics Forrest Davidson, DO [address] [place] [address] 09/30/2023 Office Visit Family Medicine [place] IIIShiva MD 200 [place] [address] 10/01/2023 Office Visit Hematology Oncology Efraín Leone MD [address] [place] [address] 11/12/2023 Office Visit Dermatology Margarita Figueredo PA-C [address] [place] [phone] 02/25/2024 Imaging Radiology 04/21/2024 Office Visit Sleep Disorders Viktoriya White CRNP [address] [place] [address] Scheduled Orders Name Type Priority Associated Diagnoses [...] leg documented in this encounter Care Teams Process Project Engineer Relationship Specialty Start Date End Date Shiva Rich III, MD [address] [place] [address], [place] [address] PCP - General Family Medicine 09/10/18 documented as of this encounter
--- OUTSIDE RECORDS SUMMARY | 2023-07-14 14:44 | External Medical Summary ---
Author Name Unknown Address Unknown Organization [id number]:LABORATORY [facility] [place] 57-10 - [address] [place] [address] Laboratory Report Ordering Provider Test Date Status JOSHUA MARR 04/23/2023 14:38:51 Final Observation Date Value Abnormality Reference (Units ) Status WBC, Total 04/23/2023 14:38:51 6.47 4.00-10.8 0 (K/uL) Final RBC 04/23/2023 14:38:51 3.12 3.85-5.15 (M/uL) Final Hemoglobin 04/23/2023 14:38:51 9.8 Below low normal 12 .0-15.3 (g/dL) Final HCT 04/23/2023 14:38:51 30.8 Below low normal 36. 0-45.2 (%) Final MCV 04/23/2023 14:38:51 98.7 81.5-97.5 (fL) Final MCH 04/23/2023 14:38:51 31.4 27.0-34.0 (pg) Final MCHC 04/23/2023 14:38:51 31.8 32.0-36.0 (g/dL) Final RDW 04/23/2023 14:38:51 15.9 11.5-15.5 (%) Final Platelets 04/23/2023 14:38:51 274 140-400 (K /uL) Final MPV 04/23/2023 14:38:51 9.5 6.6-11.1 ( fL) Final Performing Location LABORATORY [facility] [place] 57-1 0 - [address] [place] [address]
--- OUTSIDE RECORDS SUMMARY | 2023-07-14 14:44 | External Medical Summary | Summary of Care ---
Author Name Unknown Organization [facility] Address [address] [facility] [place] [address] Phone [phone] Care Team Providers Care Sample Shoe Inspector And Reworker Name Role Phone Hilario ANDRADE MD, Shiva Kebede Primary Care Provider [phone] Encounter Details Date Type Department Care Team Description 04/20/2023 Patient Reported Data Patient Survey Ortho OBERD Allergies Active Allergy Reactions Severity Noted Date Comments Bee Venom Edema Other 01/10/2016 Lisinopril Cough 09/04/2016 documented as of this encounter (statuses as of 04/20/2023) Medications Medication Sig Dispensed Refills Start Date [...] mg before bedtime. As instructed by the [facility]. 10 mL 0 04/01/2023 Active documented as of this encounter (statuses as of 04/20/2023) Active Problems Problem Noted Date Atherosclerosis of [place] coronary arter y without angina pectoris 09/10/2022 [...] as of this encounter (statuses as of 04/20/2023) Resolved Problems Problem Noted Date Resolved Date Atherosclerotic heart diseas e of [place] coronary artery with other forms of angina [...] as of this encounter (statuses as of 04/20/2023) Immunizations Name Administration Dates Next Due COVID-19 [...] Encounters Date Type Specialty Care Team Description 04/21/2023 Office Visit Sleep Disorders Viktoriya White CRNP [address] [place] [address] 04/23/2023 Office Visit Orthopedics Forrest Davidson, DO [address] [place] [address] 04/27/2023 Office Visit Cardiology Feliberto Diggs, DO [address] [place] [address] 04/29/2023 [facility] [address] [place] [address] 05/11/2023 Hospital Encounter Surgery Forrest Davidson, DO [address] [place] [address] 05/11/2023 Surgery Surgery Forrest Davidson, DO [address] [place] [address] ROBOTIC ARTHROPLASTY KNEE TOTAL 05/12/2023 [facility] 58 60 [place] [address] 05/21/2023 Office Visit Orthopedics Forrest Daivdson, DO [address] [place] [address] 09/30/2023 Office Visit Family Medicine [place]ilar[place] IIIShiva MD [address] [place] [address] 10/01/2023 Office Visit Hematology Oncology Efraín Leone MD [address] [place] [address] 11/12/2023 Office Visit Dermatology Margarita Figueredo PA-C [address] [place] [address] 02/25/2024 Imaging Radiology Scheduled Procedures Name Priority Associated Diagnoses Date/Ti me ROBOTIC ARTHROPLASTY KNEE TOTAL Knee osteoarthritis 05/11/2023 10:23 AM EDT COLONOSCOPY FLEXIBLE PROXIMAL DIAGNOSTIC Recall History of colonic polyps Health Maintenance Due Date Last Done Comments Depression Screening 06/24/2020 06/24/2019 Diabetic Foot Exam 01/31/2023 01/31/2022, 0 12/31/2020, 06/24/2019, Additional history exists HbA1c 08/20/2023 02/17/2023, 08/21, 02/03/2022, Additional history [...] Vaccine: 65+ Years Completed 01/31/2022, 12/21/2017, 11/19/2016 COVID-19 Vaccine Completed 05/09/2022, , 09/23/2020, Additional history exists Influenza Vaccine (FLU shot) Completed 04/02/2023, 04/18/2022, [...] filedocumented as of this encounter Care Teams Sample Shoe Inspector And Reworker Relationship Specialty Start Date End Date Shiva Rich III, MD 200 [place] [address] PCP - General Family Medicine 09/10/18 documented as of this encounter
--- OUTSIDE RECORDS SUMMARY | 2023-07-14 14:44 | External Medical Summary | Summary of Care ---
Author Name Unknown Organization [facility] Address [address] [facility] [place] [address] Phone [phone] Care Team Providers Care Compliance Advisor Name Role Phone Hilario ANDRADE MD, Shiva Kebede Primary Care Provider [phone] Encounter Details Date Type Department Care Team Description 04/26/2023 Patient Reported Data Patient Survey Ortho OBERD Allergies Active Allergy Reactions Severity Noted Date Comments Bee Venom Edema Other 01/10/2016 Lisinopril Cough 09/04/2016 documented as of this encounter (statuses as of 04/26/2023) Medications Medication Sig Dispensed Refills Start Date [...] as of this encounter (statuses as of 04/26/2023) Active Problems Problem Noted Date Atherosclerosis of [place] coronary arter y without angina pectoris 09/10/2022 [...] as of this encounter (statuses as of 04/26/2023) Resolved Problems Problem Noted Date Resolved Date Atherosclerotic heart diseas e of [place] coronary artery with other forms of angina [...] as of this encounter (statuses as of 04/26/2023) Immunizations Name Administration Dates Next Due COVID-19 [...] Encounters Date Type Specialty Care Team Description 04/27/2023 Office Visit Cardiology Feliberto Diggs, DO [address] [place] [address] 04/29/2023 [facility] [address] [place] [address] 05/11/2023 Hospital Encounter Surgery Forrest Davidson, DO [address] [place] [address] 05/11/2023 Surgery Surgery Forrest Davidson, DO [address] [place] [address] ROBOTIC ARTHROPLASTY KNEE TOTAL 05/12/2023 [facility] [address] 05/21/2023 Office Visit Orthopedics Forrest Davidson, DO [address] [place] [address] 09/30/2023 Office Visit Family Medicine Hilario IIIShiva MD 200 [facility] [place] [address] 10/01/2023 Office Visit Hematology Oncology Efraín Leone MD [address] [place] [address] 11/12/2023 Office Visit Dermatology Margarita Figueredo PA-C [address] [place] [address] 02/25/2024 Imaging Radiology 04/21/2024 Office Visit Sleep Disorders Viktoriya White CRNP [address] [place] [address] Scheduled Procedures Name Priority Associated Diagnoses Date/Ti [...] filedocumented as of this encounter Care Teams Compliance Advisor Relationship Specialty Start Date End Date Shiva Rich III, MD [address] [place] [address], [place] [address] PCP - General Family Medicine 09/10/18 documented as of this encounter
--- OUTSIDE RECORDS SUMMARY | 2023-07-14 14:44 | External Medical Summary | Summary of Care ---
Author Name Unknown Organization [facility] Address [address] [facility] [place] [address] Phone [phone] Care Team Providers Care Field Rep Name Role Phone Hilario ANDRADE MD, Shiva Kebede Primary Care Provider [phone] Reason for Visit * Reason Onset Date Comments Test Results Lab 04/20/2023 Encounter Details Date Type Department Care Team Description 04/20/2023 Telephone Hematology/Oncology Maninder Thomas [place] [address] [place] [address] Efraín Leone MD 200 [facility] [place] [address] Test Results Lab Allergies Active Allergy Reactions [...] DIRECTED BY [facility]. 105 Tablet 3 07/18/2022 Active Multi [...] mg before bedtime. As instructed by the [facility]. 10 mL 0 04/01/2023 Active documented as of this encounter (statuses as of 04/20/2023) Active Problems Problem Noted Date Atherosclerosis of [place] coronary arter y without angina pectoris 09/10/2022 [...] Resolved Date Atherosclerotic heart diseas e of [place] coronary artery with other forms [...] mRNA, LNP-s, No Pre serve, 2-Dose Series (Soysuper) 05/16/2021,09/23/2020,08/26/2020 Covid-19, Mrna, Lnp-s, Pf, B ivalent, 30 Mcg, IM, 12 yrs and above (Soysuper) 05/09/2022 Pneumococcal Conjugate Vacc, 13 Valent (Prevnar) [...] patient's phone to call office. Also sent [employer] message to patient. Scheduling: Please call patient [...] see that she is coming to [facility] on 04/21/2023 around 12:30 p.m.. I would like to see her after that. (overbook.) documented in this encounter Plan of Treatment Upcoming Encounters Date Type Specialty Care Team Description 04/21/2023 Office Visit Sleep Disorders Viktoriya White CRNP [address] [place] [address] 04/21/2023 Office Visit Hematology Oncology Efraín Leone MD [address] [place] [address] 04/23/2023 Office Visit Orthopedics Forrest Davidson, DO [address] [place], [place] [address] 04/27/2023 Office Visit Cardiology Feliberto Diggs, DO [address] [place] [address] 04/29/2023 [facility] 58 [address] [place] [address] 05/11/2023 Hospital Encounter Surgery Forrest Davidson, DO [address] [place] [address] 05/11/2023 Surgery Surgery Forrest Davidson, DO [address] [place], [place] [address] ROBOTIC ARTHROPLASTY KNEE TOTAL 05/12/2023 [facility] [address] [place] [address] 05/21/2023 Office Visit Orthopedics Forrest Davidson, DO [address] [place] [address] 09/30/2023 Office Visit Family Medicine Letcher IIIShiva MD [address] [place], [place] [address] 10/01/2023 Office Visit Hematology Oncology Efraín Leone MD [address] [place], [place] [address] 11/12/2023 Office Visit Dermatology Margarita Figueredo PA-C 200 [facility] [place] [address] 02/25/2024 Imaging Radiology Scheduled [...] filedocumented as of this encounter Care Teams Field Rep Relationship Specialty Start Date End Date Shiva Rich III, MD 200 [place] [address] PCP - General Family Medicine 09/10/18 documented as of this encounter
--- OUTSIDE RECORDS SUMMARY | 2023-07-14 14:44 | External Medical Summary | Summary of Care ---
Author Name Unknown Organization [facility] Address [address] [facility] [place] [address] Phone [phone] Care Team Providers Care Occupational Therapist Assistants Name Role Phone Hilario ANDRADE MD, Shiva Kebede Primary Care Provider [phone] Reason for Visit * Reason Comments Follow Up Here for one year. O SA . CPAP. Encounter Details Date Type Department Care Team Description 04/21/2023 [facility] [address] [place] [id number] Viktoriya White CRNP [address] [place] [address] SALVADOR on CPAP*; Nocturnal hypoxemia Allergies Active Allergy Reactions Severity Noted Date Comments Bee Venom Edema Other 01/10/2016 Lisinopril Cough 09/04/2016 documented as of this encounter (statuses as of 04/21/2023) Medications Medication Sig Dispensed Refills Start Date [...] ALL OTHER EVENINGS OR DIRECTED BY [facility]. 105 Tablet 3 07/18/2022 Active [...] the [facility]. 10 mL 0 04/01/2023 Active documented as of this encounter (statuses as of 04/21/2023) Active Problems Problem Noted Date Atherosclerosis of [place] coronary arter y without angina pectoris 09/10/2022 [...] as of this encounter (statuses as of 04/21/2023) Resolved Problems Problem Noted Date Resolved Date Atherosclerotic heart diseas e of [place] coronary artery with other forms of angina [...] as of this encounter (statuses as of 04/21/2023) Immunizations Name Administration Dates Next Due COVID-19 mRNA, LNP-s, No Pre serve, 2-Dose Series (Bnooki) 05/16/2021,09/23/2020,08/26/2020 Covid-19, Mrna, Lnp-s, Pf, B ivalent, 30 Mcg, IM, 12 yrs and above ([place]i) 05/09/2022 Pneumococcal Conjugate Vacc, 13 Valent (Prevnar) [...] Sign Reading Time Taken Comments Blood Pressure 142/72 04/21/2023 12:25 PM EDT Pulse 52 04/21/2023 12:25 PM EDT Temperature 36.3 C (97.4 F) 04/21/2023 12:25 PM E DT Respiratory Rate 16 04/21/2023 12:25 PM EDT Oxygen Saturation 96% 04/21/2023 12:25 PM EDT Inhaled Oxygen Concentration - - Weight 98.9 kg (218 lb) 04/21/2023 12:25 PM EDT Height 162.6 cm (5' 4") 04/21/2023 12:25 PM EDT Body Mass Index 37.42 04/21/2023 12:25 PM EDT documented in this encounter Patient Instructions * Patient Instructions* PEPE Eduardo - 04/21/2023 12:48 PM EDT Continue use of CPAP/BIPAP to include all periods of sleep. Recommended total sleep time for adults is 7-9 hours. Reminder to clean CPAP/BIPAP supplies weekly and change supplies as needed. Work at making lifestyle changes to loss weight, as weight loss often results in improvement of sleep disordered breathing. Daily exercise has been shown to improve sleep quality. Avoid driving or engaging in any activity that requires full alertness if feeling sleepy, drowsy orotherwise impaired. documented in this encounter Progress Notes * PEPE Eduardo - 04/21/2023 12:29 PM EDT [facility] Nenita Fleming is a 67 year old female seen today for yearly follow-up of SALVADOR treated on CPAP.Medical history includes type 2 diabetes, hypertension, paroxysmal AFib, heart failure, obesity/BMI37 Sleep Testing/History: - Split 05/27/17 (wt 268): AHI 113, alhaji 59%, PLMI 15/PLMAI 1; nasal CPAP 13 cwp AHI 11, <89% 21mins, PLMI 14 - Noct ox CPAP/RA 06/29/17: <89% 235.5 mins, alhaji 77% - Noct ox CPAP/2 LPM 01/28/18 (wt 275): SpO2 <89% 23 mins, alhaji 82% - Noct ox CPAP 14/3 LPM 04/23/21 (wt 276): 5.5 mins <89%, alhaji 85%, test time 8:42 hrs; CPAP with AHI 3, large leak 210 mins Interim History: CPAP with oxygen used during all periods of sleep (oxygen isn't used when traveling). She denies tolerance issues related to treatment, noting ongoing benefit with PAP use. Total sleep time 8-9 hours. Sleep is refreshing. Denies daytime sleepiness or dozing at inappropriate times. Denies drowsy driving. Denies symptoms suggestive of RLS. Compliance Data: Report date: last 30 days ending 04/16/2023 % total days used: 100 % days used > 4 hours: 100 Average hours per day used: 9 hours 49 mins Large leak: 0 L/min rAHI: 3.1 Equipment: DME Provider: Zola Device: [employer] Settings: 14 cmH20 with oxygen 3 LPM Interface Type: nasal Humidifier: not used Cleaning: By hand routinely Social: Alcohol: most nights, up to 4 oz Scotch to deal with knee pain at bedtime [place] Sleepiness Scale Question 04/21/2023 12:29 PM EDT - Filed by Whitley Menezes LPN What is the chance you will doze off in the following situation? Sitting and reading No chance of dozing Watching TV No chance of dozing Sitting inactive in a public place, such as a theater or meeting No chance of dozing As a passenger in a car for an hour without a break No chance of dozing Lying down to rest in the afternoon when circumstances permit High chance of dozing When sitting and talking to someone No chance of dozing When sitting quietly after lunch without alcohol No chance of dozing In a car, while stopped for a few minutes in traffic No chance of dozing Score (range: 0 - 24) 3 Review of Systems Constitutional: Negative for fatigue. Losing weight with effort HENT: Intermittent symptoms Respiratory: Negative for shortness of breath. Cardiovascular: Negative for chest pain and leg swelling. Musculoskeletal: Positive for arthralgias. Allergic/Immunologic: Positive for environmental allergies. Psychiatric/Behavioral: Negative for sleep disturbance. Problem List: Patient Active Problem List Diagnosis Code Essential hypertension with goal blood pressure less than 140/90 I10 Type 2 diabetes mellitus without complications ([facility]) E11.9 Hemiplegia and hemiparesis following cerebral infarction affecting left non- dominant side ([facility]) I69.354 Paroxysmal atrial fibrillation ([facility]) I48.0 Left renal mass N28.89 Right internal carotid occlusion I65.21 Morbid obesity due to excess calories ([facility]) E66.01 History of colon cancer Z85.038 History of basal cell cancer Z85.828 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 Z86.006 Dyslipidemia, goal LDL below 70 E78.5 SALVADOR on CPAP G47.33 PMB (postmenopausal bleeding) N95.0 Thickened endometrium R93.89 Endometrial polyp N84.0 Heart failure ([facility]) I50.9 Body mass index (BMI) of 40.0 to 44.9 in adult ([facility]) Z68.41 Atherosclerosis of [place] coronary artery without angina pectoris I25.10 Has TKR scheduled for later this month Current Medications: Outpatient Medications Marked as Taking for the 04/21/23 encounter (Office Visit) with PEPE Pritchard Medication Sig Enoxaparin Sodium 100 MG/ML Injection Solution Prefilled Syringe (Lovenox) Inject 100 mg under the skin in the morning and 100 mg before bedtime. As instructed by the [facility]. Cyanocobalamin 1000 MCG Oral Tablet (Cyanocobalamin) Take 1 Tablet by mouth in the morning. Losartan Potassium 100 MG Oral Tablet (Cozaar) Take 1 Tablet by mouth in the morning. Myrbetriq 50 MG Oral Tablet Extended Release 24 Hour (Mirabegron ER) Take 1 Tablet by mouth in the morning. DULoxetine HCl 60 MG Oral Capsule Delayed Release Particles (Cymbalta) TAKE 2 CAPSULES BY MOUTH EVERY MORNING Furosemide 40 MG Oral Tablet (Lasix) TAKE 1 TABLET BY MOUTH EVERY MORNING Ferrous Sulfate 325 (65 Fe) MG Oral Tablet Take 1 Tablet by mouth every other day. Ezetimibe 10 MG Oral Tablet (Zetia) TAKE 1 TABLET BY MOUTH EVERY DAY Multi Vitamin Daily Oral Tablet Take by mouth . Warfarin Sodium 5 MG Oral Tablet (Coumadin) TAKE 1 1/2 TABLETS (7.5mg) BY MOUTH FRIDAYS AND 1 TABLET (5mg) ALL OTHER EVENINGS OR DIRECTED BY ANTICOAG CLINIC. Atorvastatin Calcium 80 MG Oral Tablet (Lipitor) TAKE 1 TABLET BY MOUTH EVERY DAY Metoprolol Succinate ER 25 MG Oral Tablet Extended Release 24 Hour (toPROL XL) Take 0.5 Tablets (12.5 mg) by mouth in the morning and 0.5 Tablets (12.5 mg) before bedtime. (Patient taking differently: Take 1 Tablet by mouth in the morning.) metFORMIN HCl 500 MG Oral Tablet (Glucophage) TAKE 2 TABLETS BY MOUTH TWO TIMES DAILY WITH MORNING AND EVENING MEALS Solifenacin Succinate 5 MG Oral Tablet (VESIcare) Take by mouth 1 Tablet in the morning. Amiodarone HCl 200 MG Oral Tablet (Cordarone) Take by mouth 1 Tablet in the morning. Aspirin EC 81 MG Oral Tablet Delayed Release Take by mouth 1 Tablet in the morning. oxygen IN GAS 3 LPM bled through CPAP 14 cwp Physical Exam: BP 142/72 | Pulse 52 | Temp 36.3 C (97.4 F) (Tympanic) | Resp 16 | Ht 1.626 m (5' 4") | Wt 98.9kg (218 lb) | SpO2 96% | BMI 37.42 kg/m | BSA 2.11 m Constitutional: Alert, oriented and in no acute distress Skin: No abnormal mask markings on face Cardio: Regular rate and rhythm, no murmur Chest: Normal respiratory effort at rest, equal breath sounds, clear to auscultation Neuro: Fluent speech Psych: Appropriate mood and affect. Assessment & Plan: Encounter Diagnoses Name Primary? SALVADOR on CPAP Yes Nocturnal hypoxemia Severe obstructive sleep apnea based on AHI criteria associated with hypoxemia. She is compliant, therapeutic and benefiting with PAP treatment. Significant weight loss achieved. Check noct ox on CPAP 14 without oxygen to reassess oxygen needs. Patient Instructions Continue use of CPAP/BIPAP to include all periods of sleep. Recommended total sleep time for adults is 7-9 hours. Reminder to clean CPAP/BIPAP supplies weekly and change supplies as needed. Work at making lifestyle changes to loss weight, as weight loss often results in improvement of sleep disordered breathing. Daily exercise has been shown to improve sleep quality. Avoid driving or engaging in any activity that requires full alertness if feeling sleepy, drowsy orotherwise impaired. PEPE Nunez [facility] I spent a total of 20-29 minutes (exact time 20 mins) on the date of service in preparation, delivery, and documentation of the care provided to Nenita Fleming excluding any time spent in the performance of separately billed services. documented in this encounter Nursing Notes * Whitley Menezes LPN - 04/21/2023 12:29 PM EDT Chief Complaint Patient presents with Follow Up Here for one year. SALVADOR . CPAP. DME: [employer]. Travel Screening Question 04/21/2023 12:06 PM EDT - Filed by Patient Do you have any of the following new or worsening symptoms? None of these Have you recently been in contact with someone who was sick? No / Unsure [place] Sleepiness Scale Question 04/21/2023 12:29 PM EDT - Filed by Whitley Menezes LPN What is the chance you will doze off in the following situation? Sitting and reading No chance of dozing Watching TV No chance of dozing Sitting inactive in a public place, such as a theater or meeting No chance of dozing As a passenger in a car for an hour without a break No chance of dozing Lying down to rest in the afternoon when circumstances permit High chance of dozing When sitting and talking to someone No chance of dozing When sitting quietly after lunch without alcohol No chance of dozing In a car, while stopped for a few minutes in traffic No chance of dozing Score (range: 0 - 24) 3 documented in this encounter Plan of Treatment Upcoming Encounters Date Type Specialty Care Team Description 04/21/2023 Office Visit Hematology Oncology Efraín Leone MD 200 [facility] [place] [address] 04/23/2023 Office Visit Orthopedics Forrest Davidson, DO [address] [place] [address] 04/27/2023 Office Visit Cardiology Feliberto Diggs, DO [address] [place], [place] [address] 04/29/2023 [facility] [address] [place] [address] 05/11/2023 Hospital Encounter Surgery Forrest Davidson, DO [address] [place] [address] 05/11/2023 Surgery Surgery Forrest Davidson, DO [address] [place] [address] ROBOTIC ARTHROPLASTY KNEE TOTAL 05/12/2023 [facility] [address] 05/21/2023 Office Visit Orthopedics Forrest Davidson, DO [address] [place] [address] 09/30/2023 Office Visit Family Medicine Hilario IIIShiva MD 200 [facility] [place], [place] [address] 10/01/2023 Office Visit Hematology Oncology Efraín Leone MD [address] [place] [address] 11/12/2023 Office Visit Dermatology Margarita Figueredo PA-C [address] [place] [id number] 02/25/2024 Imaging Radiology 04/21/2024 Office Visit Sleep Disorders Viktoriya White CRNP [address] [place] [address] Scheduled Orders Name Type Priority Associated Diagnoses Orde r Schedule NOCTURNAL HOME OXIMETRY (OP) Procedures Routine SALVADOR on CPAP Nocturnal hypoxemia Ordered: 04/21/2023 Scheduled Procedures Name Priority Associated Diagnoses Date/Ti me ROBOTIC ARTHROPLASTY KNEE TOTAL Knee osteoarthritis 05/11/2023 10:23 AM EDT COLONOSCOPY FLEXIBLE PROXIMAL DIAGNOSTIC Recall History of colonic polyps Health Maintenance Due Date Last Done Comments Depression Screening 06/24/2020 06/24/2019 Diabetic Foot Exam 01/31/2023 01/31/2022, 0 12/31/2020, 06/24/2019, Additional history exists COVID-19 Vaccine ( season) 2023 05/09/2022, 05/16/2021, 09/23/2020, Additional history exists HbA1c 08/20/2023 02/17/2023, 08/21, 02/03/2022, Additional history exists DIABETES-EYE EXAM 08/28/2023 08/28/2022, , 08/17/2020, Additional history exists Albumin/Creatinine Ratio 02/18/2024 02/17/2023, 01/17 Mammogram 02/24/2024 02/23/2023, 05/20, 03/06/2022, Additional history exists GFR 03/31/2024 03/31/2023, 02/0 12/2022, 07/22/2022, Additional history exists COLONOSCOPY-EVERY 3 YRS AGES 18-100 04/11/2024 04/11/2021, 03/16/2019, 02/16/2018, Additional history exists B-12 04/16/2024 04/16/2023, 08/07/2022, 10/06/2022, Additional history exists DTaP,Tdap,and Td Vaccines [...] as of this encounter Visit Diagnoses Diagnosis SALVADOR on CPAP- Primary Obstructive sleep apnea (adult) (pediatric) Nocturnal hypoxemia Hypoxemia Knee osteoarthritis Osteoarthrosis, unspecified whether generalized or localized, lower leg documented in this encounter Care Teams Occupational Therapist Assistants Relationship Specialty Start Date End Date Shiva Rich III, MD [address] [place] [address] PCP - General Family Medicine 09/10/18 documented as of this encounter
--- OUTSIDE RECORDS SUMMARY | 2023-07-14 14:44 | External Medical Summary ---
Author Name Unknown Address Unknown Organization [id number] [address] [place] [address] Laboratory Report Ordering Provider Test Date Status JOSHUA MARR 04/23/2023 14:38:51 Final Observation Date Value Abnormality Reference (Units ) Status SYNC LEUKOCYTES IN BLOOD BY AUTOMATED COUNT 04/23/2023 14:38:51 6.47 4.00-10.80 (K/uL) Final Segs 04/23/2023 14:38:51 65.6 40.0-75.0 (%) Final Lymphs % 04/23/2023 14:38:51 23.2 18.0-42.0 (%) Final Monos 04/23/2023 14:38:51 8.7 1.0-11.0 (%) Final Eosinophils 04/23/2023 14:38:51 2.2 0.0-6.0 (%) Final Basos 04/23/2023 14:38:51 0.3 0.0-2.0 (%) Final Absolute Segs 04/23/2023 14:38:51 4.25 1.80-7.70 (K/uL) Final Lymphs, absolute 04/23/2023 14:38:51 1.50 1.00-4.80 (K/ul) Final Monos, Abs 04/23/2023 14:38:51 0.56 0.00-1.10 (K/uL) Final Eos, Abs 04/23/2023 14:38:51 0.14 0.00-0.70 (K/uL) Final Basos, Abs 04/23/2023 14:38:51 0.02 0.00-0.20 (K/uL) Final Performing Location [facility] [place] [address] [place] [address]
--- OUTSIDE RECORDS SUMMARY | 2023-07-14 14:44 | External Medical Summary | Summary of Care ---
Author Name Unknown Organization [facility] Address [address] [facility] [place] [address] Phone [phone] Care Team Providers Care Sales Representative Advertising Name Role Phone Hilario ANDRADE MD, Shiva Kebede Primary Care Provider [phone] Reason for Visit * Reason Comments Outpatient Testing Encounter Details Date Type Department Care Team Description 04/23/2023 Laboratory [facility] [phone] [facility] 132 [place] [address] Normocytic anemia Allergies Active Allergy Reactions Severity Noted Date Comments Bee Venom Edema Other 01/10/2016 Lisinopril Cough 09/04/2016 documented as of this encounter (statuses as of 04/23/2023) Medications Medication Sig Dispensed Refills Start Date [...] [facility]. 105 Tablet 3 07/18/2022 Active [...] mg before bedtime. As instructed by the [facility]madin [facility]. 10 mL 0 04/01/2023 Active documented as of this encounter (statuses as of 04/23/2023) Active Problems Problem Noted Date Atherosclerosis of [place] coronary arter y without angina pectoris 09/10/2022 [...] as of this encounter (statuses as of 04/23/2023) Resolved Problems Problem Noted Date Resolved Date Atherosclerotic heart diseas e of [place] coronary artery with other forms of angina [...] as of this encounter (statuses as of 04/23/2023) Immunizations Name Administration Dates Next Due COVID-19 mRNA, LNP-s, No Pre serve, 2-Dose Series (Aptana) 05/16/2021,09/23/2020,08/26/2020 Covid-19, Mrna, Lnp-s, Pf, B ivalent, 30 Mcg, IM, 12 yrs and above (Aptana) 05/09/2022 Pneumococcal Conjugate Vacc, 13 Valent (Prevnar) [...] Encounters Date Type Specialty Care Team Description 04/23/2023 Cardiac Studies Cardiac Studies Preo p testing* 04/27/2023 Office Visit Cardiology Feliberto Diggs, DO [address] [place] [address] 04/29/2023 [facility] [address] [place] [address] 05/11/2023 Hospital Encounter Surgery Forrest Davidson, DO [address] [place] [address] 05/11/2023 Surgery Surgery Forrest Davidson, DO [address] [place] [address] ROBOTIC ARTHROPLASTY KNEE TOTAL 05/12/2023 Anticoagulation Pharmacy [facility] [address] [place] [address] 05/21/2023 Office Visit Orthopedics Forrest Davidson, DO [address] [place] [address] 09/30/2023 Office Visit Family Medicine Hilario Shiva ANDRADE MD [address] [place] [address] 10/01/2023 Office Visit Hematology Oncology Efraín Leone MD [address] [place] [address] 11/12/2023 Office Visit Dermatology Margarita Figueredo PA-C [address] [place] [phone] 02/25/2024 Imaging Radiology 04/21/2024 Office Visit Sleep Disorders Viktoriya White CRNP [address] [place] [address] Pending Results Name Type Priority Associated Diagnoses Date /Time RETICULOCYTE PANEL Lab Routine Normocytic anemia 04/23/2023 2:38 PM EDT Scheduled Procedures Name Priority Associated [...] Date/Time Associated Diagnosis Comments DIFFERENTIAL, AUTOMATED STAT 04/23/2023 2:38 PM EDT Normocytic anemia CBC STAT 04/23/2023 2:38 PM EDT Normocytic anemia CBC STAT 04/23/2023 2:38 PM EDT Normocytic anemia documented in this encounter Results * DIFFERENTIAL, AUTOMATED (04/23/2023 2:38 PM EDT) WBC 6.47 4.00 - 10.80 K/uL 04/23/2023 2:57 PM EDT [facility] [place] 57-10 Neutrophils % 65.6 40.0 - 75.0 % 04/23/2023 2:57 PM EDT [facility] [place] 57[facility]10 Lymphocytes % 23.2 18.0 - 42.0 % 04/23/2023 2:57 PM EDT [facility] [place] 57[facility]10 Monocytes % 8.7 1.0 - 11.0 % 04/23/2023 2:57 PM EDT [facility] [place] 57[facility]10 Eosinophils % 2.2 0.0 - 6.0 % 04/23/2023 2:57 PM EDT [facility] 57-10 Basophils % 0.3 0.0 - 2.0 % 04/23/2023 2:57 PM EDT LAB[facility] 57-10 Absolute Neutrophils 4.25 1.80 - 7.70 K/uL 04/23/2023 2:57 PM EDT LAB[facility] 57-10 Absolute Lymphocytes 1.50 1.00 - 4.80 K/ul 04/23/2023 2:57 PM EDT [facility] 57-10 Absolute Monocytes 0.56 0.00 - 1.10 K/uL 04/23/2023 2:57 PM EDT [facility] 57-10 Absolute Eosinophils 0.14 0.00 - 0.70 K/uL 04/23/2023 2:57 PM EDT [facility] 57-10 Absolute Basophils 0.02 0.00 - 0.20 K/uL 04/23/2023 2:57 PM EDT [facility] [place] 57-10 Blood Venous blood specimen / Unknown Venipuncture / Unknown 04/23/2023 2:38 PM EDT 04/23/2023 2:38 PM EDT Efraín Leone MD LAB BLOOD ORDERABLES [facility] [address] [place] [address] * (ABNORMAL) CBC (04/23/2023 2:38 PM EDT) WBC 6.47 4.00 - 10.80 K/uL 04/23/2023 2:57 PM EDT [facility] 57[facility]10 RBC 3.12 3.85 - 5.15 M/uL 04/23/2023 2:57 PM EDT [facility] 57-10 HGB 9.8(L) 12.0 - 15.3 g/dL 04/23/2023 2:57 PM EDT [facility] 57[facility]10 HCT 30.8(L) 36.0 - 45.2 % 04/23/2023 2:57 PM EDT [facility] 57[facility]10 MCV 98.7 81.5 - 97.5 fL 04/23/2023 2:57 PM EDT [facility] [place] 57[facility]10 MCH 31.4 27.0 - 34.0 pg 04/23/2023 2:57 PM EDT [facility] [place] 57[facility]10 MCHC 31.8 32.0 - 36.0 g/dL 04/23/2023 2:57 PM EDT [facility] [place] 57[facility]10 RDW 15.9 11.5 - 15.5 % 04/23/2023 2:57 PM EDT [facility] [place] 57[facility]10 PLT 274 140 - 400 K/uL 04/23/2023 2:57 PM EDT [facility] [place] [facility] 57[facility]10 MPV 9.5 6.6 - 11.1 fL 04/23/2023 2:57 PM EDT [facility] [place] [facility] 57[facility]10 Blood Venous blood specimen / Unknown Venipuncture / Unknown 04/23/2023 2:38 PM EDT 04/23/2023 2:38 PM EDT Efraín Leone MD LAB BLOOD ORDERABLES [facility] 57-10 [address] [place] [address] documented in this encounter Visit Diagnoses Diagnosis Normocytic anemia Anemia, unspecified Preop testing- Primary Preoperative examination, unspecified Knee osteoarthritis Osteoarthrosis, unspecified whether generalized or localized, lower leg documented in this encounter Care Teams Sales Representative Advertising Relationship Specialty Start Date End Date Shiva Rich III, MD [address] [place] [address] PCP - General Family Medicine 09/10/18 documented as of this encounter
--- OUTSIDE RECORDS SUMMARY | 2023-07-14 14:44 | External Medical Summary ---
Author Name Unknown Address Unknown Organization K01:LABORATORY [facility] - [facility] [address] [facility] [address] [facility] [address] Laboratory Report Ordering Provider Test Date Status BRITTANISUMEETJACINTODelio 04/23/2023 14:02:40 Final Observation Date Value Abnormality Reference (Units ) Status Staphylococcus aureus methicillin resistance SCCmec [Presence] in Nose by ABE with probe detection 04/23/2023 14:02:40 Negative Negative Final No Methicillin resistant Sta phylococcus aureus detected by PCR (amplified probe). Methicillin susceptible Stap hylococcus aureus DNA [Presence] in Specimen by BAE with probe detection 04/23/2023 14:02:40 Negative Negative Final No methicillin sensitive Sta phylococcus aureus detected by PCR (amplified probe). Performing Location [facility]ORY [facility] - [address] [facility] [address]
--- OUTSIDE RECORDS SUMMARY | 2023-07-14 14:44 | External Medical Summary | Summary of Care ---
Author Name Unknown Organization [facility] Address [address] [facility] [place] [address] Phone [phone] Care Team Providers Care Perennial House Manager Name Role Phone Hilario ANDRADE MD, Shiva Kebede Primary Care Provider [phone] Reason for Visit * Reason Onset Date Comments Test Results Lab 04/20/2023 Encounter Details Date Type Department Care Team Description 04/20/2023 Telephone Hematology/Oncology [place] [address] [place] [address] Efraín Leone MD 200 [facility] [place] [address] Test Results Lab Allergies Active Allergy Reactions [...] mg before bedtime. As instructed by the [facility]. 10 mL 0 04/01/2023 Active documented as of this encounter (statuses as of 04/20/2023) Active Problems Problem Noted Date Atherosclerosis of [place] coronary arter y without angina pectoris 09/10/2022 [...] Resolved Date Atherosclerotic heart diseas e of [place] coronary artery with other forms of angina [...] mRNA, LNP-s, No Pre serve, 2-Dose Series (Nativeflow) 05/16/2021,09/23/2020,08/26/2020 Covid-19, Mrna, Lnp-s, Pf, B ivalent, 30 Mcg, IM, 12 yrs and above (Nativeflow) 05/09/2022 Pneumococcal Conjugate Vacc, 13 Valent (Prevnar) [...] Miscellaneous Notes * Telephone Encounter - Dena Weller LPN [...] see that she is coming to [facility] on 04/21/2023 around 12:30 p.m.. I would like to see her after that. (overbook.) documented in this encounter Plan of Treatment Upcoming Encounters Date Type Specialty Care Team Description 04/21/2023 Office Visit Sleep Disorders Viktoriya White CRNP [address] [place] [address] 04/23/2023 Office Visit Orthopedics Forrest Davidson DO [address] [place] [address] 04/27/2023 Office Visit Cardiology Feliberto Diggs DO [address] [place] [address] 04/29/2023 [facility] [address] [facility] [place] [address] 05/11/2023 Hospital Encounter Surgery Forrest Davidson, DO [address] [place] [address] 05/11/2023 Surgery Surgery Forrest Davidson, DO [address] [place] [address] ROBOTIC ARTHROPLASTY KNEE TOTAL 05/12/2023 [facility] 58 60 [facility] [place] [address] 05/21/2023 Office Visit Orthopedics Forrest Davidson, DO [address] [place] [address] 09/30/2023 Office Visit Family Medicine Hilario IIIShiva MD 200 [facility] [place] [address] 10/01/2023 Office Visit Hematology Oncology Efraín Leone MD [address] [place] [address] 11/12/2023 Office Visit Dermatology Magrarita Figueredo PA-C [address] [place] [phone] 02/25/2024 Imaging Radiology Scheduled Procedures Name Priority [...] filedocumented as of this encounter Care Teams Perennial House Manager Relationship Specialty Start Date End Date Hilarioajith ANDRADE, Shiva Kebede MD 200 [place] [address] PCP - General Family Medicine 09/10/18 documented as of this encounter
--- OUTSIDE RECORDS SUMMARY | 2023-07-14 14:44 | External Medical Summary ---
Author Name Unknown Address Unknown Organization K01:[facility] [place] [address] [facility] [place] [address] Laboratory Report Ordering Provider Test Date Status JOSHUA MARR 04/23/2023 14:38:51 Final Observation Date Value Abnormality Reference (Units ) Status Retic, % (auto) 04/23/2023 14:38:51 4.01 Above high normal 0.80-1.90 (%) Final Reticulocytes, Absolute 04/23/2023 14:38:51 124.7 Above high normal 31.3-100.1 (K/uL) Final Reticulocyte fraction, immature 04/23/2023 14:38:51 17.0 2.5-20.6 (%) Final Reticulocyte HGB 04/23/2023 14:38:51 34.7 29.7-37.4 (pg) Final Performing Location [facility] [place] [address] [facility] [address]
--- OUTSIDE RECORDS SUMMARY | 2023-07-14 14:44 | External Medical Summary | Summary of Care ---
Author Name Unknown Organization [facility] Address [address] [facility] [place] [address] Phone [phone] Care Team Providers Care Acid Polymerization Operator Name Role Phone Hilario ANDRADE MD, Shiva Kebede Primary Care Provider [phone] Reason for Visit * Reason Comments H&P Surgery Right TKA Encounter Details Date Type Department Care Team Description 04/23/2023 Office Visit Orthopaedics [facility] [address] [place] [address] Forrest Davidson, [address] [place] [address] Primary osteoarthritis of right knee*; Ambulatory dysfunction; Preop testing Allergies Active Allergy Reactions Severity Noted Date Comments Bee Venom Edema Other 01/10/2016 Lisinopril Cough 09/04/2016 documented as of this encounter (statuses as of 04/24/2023) Medications Medication Sig Dispensed Refills Start Date [...] (5mg) ALL OTHER EVENINGS OR DIRECTED BY [facility]. 105 Tablet 3 07/18/2022 Active [...] by the [facility]. 10 mL 0 04/01/2023 Active documented as of this encounter (statuses as of 04/24/2023) Active Problems Problem Noted Date Atherosclerosis of [place] coronary arter y without angina pectoris 09/10/2022 [...] as of this encounter (statuses as of 04/24/2023) Resolved Problems Problem Noted Date Resolved Date Atherosclerotic heart diseas e of [place] coronary artery with other forms of angina [...] as of this encounter (statuses as of 04/24/2023) Immunizations Name Administration Dates Next Due COVID-19 mRNA, LNP-s, No Pre serve, 2-Dose Series ([employer]) 05/16/2021,09/23/2020,08/26/2020 Covid-19, Mrna, Lnp-s, Pf, B ivalent, 30 Mcg, IM, 12 yrs and above ([employer]) 05/09/2022 Pneumococcal Conjugate Vacc, 13 Valent (Prevnar) [...] on file documented as of this encounter H&P Notes * Forrest Davidson, DO - 04/23/2023 2:12 PM EDT GENERAL HISTORY & PHYSICAL EXAMINATION ORTHOPAEDIC SURGERY - Outpatient H&P Name: Nenita Fleming Date: 04/23/2023 Time: 2:12 PM SUBJECTIVE: Chief [...] by the [facility]. 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 02/23/2019 BCC (basal cell carcinoma), scalp/neck 11/04/2018 Body mass index (BMI) of 45.0 to 49.9 in adult ([facility]) 04/20/2017 Per Obesity protocol #1 Dyslipidemia, goal [...] Procedure Laterality Date COLONOSCOPY, DIAGNOSTIC (RECTUM) 11/12/2016 adenocarcinoma/[facility] COLONOSCOPY, DIAGNOSTIC (RECTUM) 02/16/2018 serrated adenomatous polyp, repeat 1 yr/[facility] COLONOSCOPY, DIAGNOSTIC (RECTUM) 03/16/2019 benign polyps, repeat 2 yrs/[facility] COLONOSCOPY, DIAGNOSTIC (RECTUM) 04/11/2021 normal, repeat 3 yrs / [facility] DENTAL SURGERY PROCEDURE NEC Dental Surgery Procedure wisdom teeth INFORMATION 04/2022 Cardioversion. INFORMATION Part of colon removed. INFORMATION 11/2021 Heart Cath [place] FLEX SIGMOID DIAGNOSITIC 11/20/2016 SIGMOIDOSCOPY FLEXIBLE DIAGNOSTIC performed by Declan West MD at ENDOSCOPY [facility] REMOVAL OF OVARY(S) Left REMOVAL OF [...] notable within the medial and patellofemoral compartment. [id number] articulation noted. Severe degenerative findings incidentally noted [...] additional preoperative workup in the upcoming weeks [facility]. This chart was completed in part utilizing [employer] Speech Voice Recognition Software. Grammatical errors, random [...] 04/23/2023 2:12 PM documented in this encounter Nursing Notes * JATINDER Trevino - 04/23/2023 2:00 PM EDT Patient presents today for H&P for right TKA. documented in this encounter Plan of Treatment Upcoming Encounters Date Type Specialty Care Team Description 04/27/2023 Office Visit Cardiology Feliberto Diggs, DO [address] [place] [address] 04/29/2023 [facility] [address] [facility] [place] [address] 05/11/2023 Hospital Encounter Surgery Forrest Davidson, DO [address] [place] [address] 05/11/2023 Surgery Surgery Forrest Davidson, DO [address] [place] [address] ROBOTIC ARTHROPLASTY KNEE TOTAL 05/12/2023 [facility] [address] [facility] [place] [address] 05/21/2023 Office Visit Orthopedics Forrest Davidson, DO [address] [place] [address] 09/30/2023 Office Visit Family Medicine [place] IIIShiva MD 200 [facility] [place] [address] 10/01/2023 Office Visit Hematology Oncology Efraín Leone MD 200 [facility] [place] [address] 11/12/2023 Office Visit Dermatology Margarita Figueredo PA-C [facility] [place] [phone] 02/25/2024 Imaging Radiology 04/21/2024 Office Visit Sleep Disorders Viktoriya White CRNP [address] [place] [address] Pending Results Name Type Priority Associated Diagnoses Date /Time XR KNEE 3 VIEWS Medical Imaging Routine Primary osteoarthritis of right knee 04/23/2023 2:08 PM EDT Scheduled Procedures Name Priority [...] Procedure Name Priority Date/Time Associated Diagnosis Comments STAPH AUREUS PCR Routine 04/23/2023 2:02 PM EDT Preop testing documented in this encounter Results * STAPH AUREUS PCR (04/23/2023 2:02 PM EDT) MRSA PCR Result Negative Negative 10:49 PM EDT LAB[facility]ATORY [facility] Comment:No Methicillin resis tant Staphylococcus aureus detected by PCR (amplified probe). MSSA PCR Result Negative Negative 10:49 PM EDT LAB[facility] Comment:No methicillin sensi tive Staphylococcus aureus detected by PCR (amplified probe). Upper Respiratory (Nares, Bilateral) Non-blood Collection / Unknown 04/23/2023 2:02 PM EDT 04/23/2023 2:02 PM EDT Balta Hyde PA-C LAB MICRO - GENERAL ORDERABLES LAB[facility]ORY [facility] [address] [place] [address] documented in this encounter Visit Diagnoses Diagnosis Primary osteoarthritis of right knee- Primary Primary localized osteoarthrosis, lower leg Ambulatory dysfunction Preop testing Preoperative examination, unspecified Knee osteoarthritis Osteoarthrosis, unspecified whether generalized or localized, lower leg documented in this encounter Care Teams Acid Polymerization Operator Relationship Specialty Start Date End Date Shiva Rich III, MD 200 [facility] [place] [address] PCP - General Family Medicine 09/10/18 documented as of this encounter"
--- OUTSIDE RECORDS SUMMARY | 2023-07-14 14:44 | External Medical Summary | Summary of Care ---
Author Name Unknown Organization [facility] Address [address] [facility] [place] [address] Phone [phone] Care Team Providers Care Mutual Fund Manager Name Role Phone Hilario ANDRADE MD, Shiva Kebede Primary Care Provider [phone] Reason for Visit * Reason Comments H&P Surgery Right TKA Encounter Details Date Type Department Care Team Description 04/23/2023 Office Visit Orthopaedics [facility] [address] [place] [address] Forrest Davidson, [address] [place] [address] Primary osteoarthritis of right knee*; Ambulatory dysfunction; [...] ALL OTHER EVENINGS OR DIRECTED BY [facility]. 105 Tablet 3 07/18/2022 Active [...] mg before bedtime. As instructed by the [facility] Coumadin Clinic. 10 mL 0 04/01/2023 Active documented as of this encounter (statuses as of 04/23/2023) Active Problems Problem Noted Date Atherosclerosis of [place] coronary arter y without angina pectoris 09/10/2022 [...] Resolved Date Atherosclerotic heart diseas e of [place] coronary artery with other forms of angina [...] mRNA, LNP-s, No Pre serve, 2-Dose Series (Mithridion) 05/16/2021,09/23/2020,08/26/2020 Covid-19, Mrna, Lnp-s, Pf, B ivalent, 30 Mcg, IM, 12 yrs and above (Mithridion) 05/09/2022 Pneumococcal Conjugate Vacc, 13 Valent (Prevnar) [...] mg before bedtime. As instructed by the [facility] Coumadin Clinic. 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) 04/20/2017 Per Obesity protocol #1 Dyslipidemia, [...] Procedure Laterality Date COLONOSCOPY, DIAGNOSTIC (RECTUM) 11/12/2016 adenocarcinoma[facility] COLONOSCOPY, DIAGNOSTIC (RECTUM) 02/16/2018 serrated adenomatous polyp, repeat 1 yr/[facility] COLONOSCOPY, DIAGNOSTIC (RECTUM) 03/16/2019 benign polyps, repeat 2 yrs/[facility] COLONOSCOPY, DIAGNOSTIC (RECTUM) 04/11/2021 normal, repeat 3 yrs / [facility] DENTAL SURGERY PROCEDURE NEC Dental Surgery Procedure wisdom teeth INFORMATION 04/2022 Cardioversion. INFORMATION Part of colon removed. INFORMATION 11/2021 Heart Cath [place] FLEX SIGMOID DIAGNOSITIC 11/20/2016 SIGMOIDOSCOPY FLEXIBLE DIAGNOSTIC performed by Declan West MD at ENDOSCOPY [facility] REMOVAL OF OVARY(S) Left REMOVAL OF OVARY(S) [...] notable within the medial and patellofemoral compartment. [id number] articulation noted. Severe degenerative findings incidentally noted [...] additional preoperative workup in the upcoming weeks [facility]. This chart was completed in part utilizing [employer] Speech Voice Recognition Software. Grammatical errors, random [...] Cardiology Feliberto Diggs, DO [address] [place] [address] 04/29/2023 [facility] [address] [facility] [place] [address] 05/11/2023 Hospital Encounter Surgery Forrest Davidson, DO [address] [place] [address] 05/11/2023 Surgery Surgery Forrest Davidson, DO [address] [place] [address] ROBOTIC ARTHROPLASTY KNEE TOTAL 05/12/2023 [facility] [address] [facility] [place] [address] 05/21/2023 Office Visit Orthopedics Forrest Davidson, DO [address] [place] [address] 09/30/2023 Office Visit Family Medicine [place] IIIShiva MD 200 [place] [address] 10/01/2023 Office Visit Hematology Oncology Efraín Leone MD 200 [place] [address] 11/12/2023 Office Visit Dermatology Margarita Figueredo PA-C 200 [facility] [place] [phone] 02/25/2024 Imaging Radiology 04/21/2024 Office Visit Sleep Disorders Viktoriya White CRNP [address] [place] [address] Pending Results Name Type Priority Associated Diagnoses Date /Time XR KNEE 3 VIEWS Medical Imaging Routine Primary osteoarthritis of right knee 04/23/2023 2:08 PM EDT STAPH AUREUS PCR Lab Routine Preop testing 04/23/2023 2:02 PM EDT Scheduled Procedures Name Priority Associated [...] leg documented in this encounter Care Teams Mutual Fund Manager Relationship Specialty Start Date End Date Shiva Rich III, MD [address] [place] [address], [place] [address] PCP - General Family Medicine 09/10/18 documented as of this encounter"
--- OUTSIDE RECORDS SUMMARY | 2023-07-14 14:44 | External Medical Summary | Summary of Care ---
Author Name Unknown Organization [facility] Address [address] [facility] [place] [address] Phone [phone] Care Team Providers Care Network Operations Technician Name Role Phone Hilario ANDRADE MD, Shiva Kebede Primary Care Provider [phone] Encounter Details Date Type Department Care Team Description 04/24/2023 Telephone Orthopaedics [facility] [address] [place] [address] Forrest Davidson, [address] [place] [address] Allergies Active Allergy Reactions Severity Noted Date [...] (5mg) ALL OTHER EVENINGS OR DIRECTED BY [facility]. 105 Tablet 3 07/18/2022 [...] mg before bedtime. As instructed by the [facility]. 10 mL 0 04/01/2023 Active documented as of this encounter (statuses as of 04/24/2023) Active Problems Problem Noted Date Atherosclerosis of [place] coronary arter y without angina pectoris 09/10/2022 [...] Resolved Date Atherosclerotic heart diseas e of [place] coronary artery with other forms of angina [...] encounter Miscellaneous Notes * Telephone Encounter - Efraín Leone MD [...] Diggs, DO [address] [place] [address] 04/29/2023 Anticoagulation Pharmacy Telepharmacy, [facility] [address] [facility] [place] [address] 05/11/2023 Hospital Encounter Surgery Forrest Davidson DO [address] [place] [address] 05/11/2023 Surgery Surgery Forrest Davidson, [address] [place] [address] ROBOTIC ARTHROPLASTY KNEE TOTAL 05/12/2023 Anticoagulation [facility]acy [facility] [address] [facility] [place] [address] 05/21/2023 Office Visit Orthopedics Forrest Davidson DO [address] [place] [address] 09/30/2023 Office Visit Family Medicine Hilario Shiva ANDRADE MD [address] [place] [address] 10/01/2023 Office Visit Hematology Oncology Efraín Leone MD [address] [place] [address] 11/12/2023 Office Visit Dermatology Margarita Figueredo PA-C [address] [place] [phone] 02/25/2024 Imaging Radiology 04/21/2024 Office Visit Sleep Disorders Viktoriya White CRNP [address] [place] [address] Scheduled Procedures Name Priority Associated Diagnoses Date/Ti wy ROBOTIC ARTHROPLASTY KNEE TOTAL Knee osteoarthritis 05/11/2023 [...] filedocumented as of this encounter Care Teams Network Operations Technician Relationship Specialty Start Date End Date Shiva Rich III, MD [address] [place] [address] [place] [address] PCP - General Family Medicine 09/10/18 documented as of this encounter
--- OUTSIDE RECORDS SUMMARY | 2023-07-14 14:44 | External Medical Summary | Summary of Care ---
Author Name Unknown Organization [facility] Address [address] [facility] [place] [address] Phone [phone] Care Team Providers Care Aircraft Detail Draftsperson Name Role Phone Hilario ANDRADE MD, Shiva Kebede Primary Care Provider [phone] Encounter Details Date Type Department Care Team Description 04/24/2023 Telephone Orthopaedics [facility] [address] [place] [address] Forrest Davidson, [address] [place] [address] Allergies Active Allergy Reactions Severity Noted Date [...] (5mg) ALL OTHER EVENINGS OR DIRECTED BY [facility]. 105 Tablet 3 07/18/2022 [...] mg before bedtime. As instructed by the [facility]. 10 mL 0 04/01/2023 Active [...] Patient is scheduled for surgery with Dr. Davidsno on 05/11. Dr. Davidson indicated patient wasfound to be anemic on pre op workup. Please advise if patient would be medically optimized prior tosurgery to proceed. Your input is appreciated. documented in this encounter Plan of Treatment Upcoming Encounters Date Type Specialty Care Team Description 04/29/2023 [facility] [address] [facility] [address] 04/30/2023 Office Visit Cardiology Feliberto Diggs, DO [address] [place] [address] 05/11/2023 Hospital Encounter Surgery Forrest Davidson, [address] [place] [address] 05/11/2023 Surgery Surgery Forrest Davidson, DO [address] [place] [address] ROBOTIC ARTHROPLASTY KNEE TOTAL 05/12/2023 [facility] 58 [address] [facility] [place] [address] 05/21/2023 Office Visit Orthopedics Forrest Davidson DO [address] [place] [address] 09/30/2023 Office Visit Family Medicine Hilario Shiva ANDRADE MD [address] [place] [address] 10/01/2023 Office Visit Hematology Oncology Efraín Leone MD [address] [place] [address] 11/12/2023 Office Visit Dermatology Margarita Figueredo PA-C [address] [place] [phone] 02/25/2024 Imaging Radiology 04/21/2024 Office Visit Sleep Disorders Viktoriya White CRNP [address] [place] [address] Scheduled Procedures Name Priority Associated Diagnoses Date/Ti ca ROBOTIC ARTHROPLASTY KNEE TOTAL Knee osteoarthritis 05/11/2023 [...] filedocumented as of this encounter Care Teams Aircraft Detail Draftsperson Relationship Specialty Start Date End Date Shiva Rich III, MD [address] [place] [address] [place] [address] PCP - General Family Medicine 09/10/18 documented as of this encounter
--- OUTSIDE RECORDS SUMMARY | 2023-07-14 14:44 | External Medical Summary | Summary of Care ---
Author Name Unknown Organization [facility] Address [address] [facility] [place] [address] Phone [phone] Care Team Providers Care Party Plan Dealer Name Role Phone Hilario ANDRADE MD, Shiva Kebede Primary Care Provider [phone] Reason for Visit * Reason Comments Follow Up Encounter Details Date Type Department Care Team Description 04/21/2023 Office Visit Hematology/Oncology Maninder Thomas [place] [address] [facility] [place] [address] Efraín Leone MD [address] [facility] [place] [address] Normocytic anemia* Allergies Active Allergy Reactions Severity Noted Date [...] ALL OTHER EVENINGS OR DIRECTED BY [facility]. 105 Tablet 3 07/18/2022 [...] mg before bedtime. As instructed by the [facility]. 10 mL 0 04/01/2023 Active documented as of this encounter (statuses as of 04/21/2023) Active Problems Problem Noted Date Atherosclerosis of [place] coronary arter y without angina pectoris 09/10/2022 [...] Resolved Date Atherosclerotic heart diseas e of [place] coronary artery with other forms of angina [...] mRNA, LNP-s, No Pre serve, 2-Dose Series ([employer]) 05/16/2021,09/23/2020,08/26/2020 Covid-19, Mrna, Lnp-s, Pf, B ivalent, [...] Sign Reading Time Taken Comments Blood Pressure 193/73 04/21/2023 1:35 PM EDT Pulse 55 04/21/2023 1:35 PM EDT Temperature 36.6 C (97.8 F) 04/21/2023 1:35 PM ED T Respiratory Rate 16 04/21/2023 1:35 PM EDT Oxygen Saturation 94% 04/21/2023 1:35 PM EDT Inhaled Oxygen Concentration - - Weight 99.1 kg (218 lb 8 oz) 04/21/2023 1:35 PM EDT Height - - Body Mass Index 37.51 04/21/2023 12:25 PM EDT documented in this encounter Progress Notes * Efraín Leone MD - 04/21/2023 3:45 PM EDT NENITA WHITMAN MR # [id number] :1955 67-year-old female, Date of consultation:10/06/2022 DIAGNOSIS: IgG lambda paraproteinemia, very small amount, unable to quantitate, less than 0.5 g/dL. -normal Calcium level, normal kidney level. Overall appears to be MGUS. CURRENT TREATMENT: Observation DIAGNOSTIC WORKUP: She had slightly elevated Calcium level around 10.9 earlier in 04/2022. She would routine blood workup done in July as follows: Blood workup done on 07/22/2022: -M spike --> unable to accurately quantitated, less than 0.5 g/dL. ( IgG lambda). -BUN/Creat: 20/0.8, Calcium 10.0. -total protein 7.0. -BUN/Creat: 20/0.8, Calcium 10.1 ( 08/25/2019). -Vitamin B12 level was 387 (January 2022). OTHER IMPORTANT HISTORY: - at fibrillation, S/P cardioversion in March 2022. -history of CV stroke with left hemiparesis in 2017 she says that she would CV stroke following surgery for the colon. -she has significant carotid artery disease. She is on oral Coumadin since 2018. -ambulates with the help of the cane -hyperlipidemia -diabetes mellitus -sleep apnea, she is on CPAP at nighttime. -she had D&C earlier in December 2021, final pathology as follows: Endometrium, curettings: (01/03/2022). - Benign atrophic endometrium - Negative for atypia, hyperplasia, and malignancy - DJD involving the right knee - Kidney, left renal, core needle biopsy: (05/04/2017). Spindle and epithelial-like cell neoplasm with smooth muscle differentiation, most compatible with angiomyolipoma. INTERVAL HISTORY: She has come the clinic for the follow-up, she says that she is otherwise doing well, denies any bleeding from the sites, no nausea no vomiting, Ambulates with the help of the cane. She says that she is going for right knee replacement surgery on 05/11/2023. Recently about a week back she started taking Vitamin B12 supplementation No recent surgery, no infection, no leg edema. Chronic left-sided weakness from the previous CV stroke. Currently she is on oral Coumadin. She will go on Lovenox when she goes for the knee replacement surgery. Right knee joint pain related underlying DJD, she takes Cymbalta for the symptomatic treatment. She is on oral Coumadin for underlying carotid artery disease, she would CV stroke in 2018, recovered well, she would left sided weakness. Ambulates with the help of the cane. 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 02/23/2019 BCC (basal cell carcinoma), scalp/neck 11/04/2018 Body mass index (BMI) of 45.0 to 49.9 in adult ([facility]) 04/20/2017 Per Obesity protocol #1 Dyslipidemia, goal LDL below 70 12/30/2019 Endometrial polyp 09/06/2021 Essential hypertension with goal blood pressure less than 140/90 09/02/2016 Hemiplegia and hemiparesis following cerebral infarction affecting left non- dominant side ([facility]) 01/21/2017 History of basal cell cancer 01/24/2019 History of colon cancer 06/24/2018 History of melanoma in situ 07/27/2019 Hypertension Left renal mass 01/26/2017 Morbid obesity due to excess calories ([facility]) 03/25/2017 SALVADOR on CPAP 04/19/2020 Paroxysmal atrial fibrillation (HCC) 01/21/2017 PMB (postmenopausal bleeding) 08/19/2021 Right internal carotid occlusion 02/13/2017 Thickened endometrium 09/06/2021 Type 2 diabetes mellitus (HCC) Type 2 diabetes mellitus without complications (HCC) 01/21/2017 Past Surgical History: Procedure Laterality Date COLONOSCOPY, DIAGNOSTIC (RECTUM) 11/12/2016 adenocarcinoma/[facility] COLONOSCOPY, DIAGNOSTIC (RECTUM) 02/16/2018 serrated adenomatous polyp, repeat 1 yr/[facility] COLONOSCOPY, DIAGNOSTIC (RECTUM) 03/16/2019 benign polyps, repeat 2 yrs/[facility] COLONOSCOPY, DIAGNOSTIC (RECTUM) 04/11/2021 normal, repeat 3 yrs / [facility] DENTAL SURGERY PROCEDURE NEC Dental Surgery Procedure wisdom teeth INFORMATION 04/2022 Cardioversion. INFORMATION Part of colon removed. INFORMATION 11/2021 Heart Cath [place] FLEX SIGMOID DIAGNOSITIC 11/20/2016 SIGMOIDOSCOPY FLEXIBLE DIAGNOSTIC performed by Declan West MD at [facility] REMOVAL OF OVARY(S) Left REMOVAL OF OVARY(S) FOR TUMOR benign Current Outpatient Medications Medication Sig Dispense Refill [...] mg before bedtime. As instructed by the [facility]. 10 mL0 No current facility-administered medications for this visit. Family History Problem Relation Age of Onset [...] Resource Strain: Not on file Food Insecurity: Not on file Transportation Needs: Not on file Physical Activity: Not on file Stress: Not on file Social Connections: Not on file Intimate Partner Violence: Not on file Housing Stability: Not on file On Exam: BP 193/73 (BP Site: Left Arm, BP Position: Sitting, BP Cuff Size: Large) | Pulse 55 | Temp 36.6 C(97.8 F) (Tympanic) | Resp 16 | Wt 99.1 kg (218 lb 8 oz) | SpO2 94% | BMI 37.51 kg/m | BSA 2.12m Constitutional: Patient is alert, cooperative and oriented x 3. Well built woman, Patient is in no acute distress. HEENT: No icterus, no pallor, Throat and pharynx normal. Sinuses are non-tender. Neck: Supple and without lymphadenopathy or masses. No JVD. No Palpable supraclavicular lymph nodes. Lungs: Clear to auscultation. Bilateral symmetric air entry. No wheezing or rhonchi. Cardiovascular: Normal heart sounds, no murmurs.Regular rate and rhythm. Abdomen: soft, nontender, no hepatomegaly, no splenomegaly. Bowel sounds are normal. Neurological: No gross focal neurological deficit; walks with a normal gait. Extremities: No finger clubbing, No cyanosis. No leg edema. Skin:: No skin rash. SPINE: No spinal or paraspinal tenderness. LABS: Blood workup done on 10/06/2022: - WBC 5900, H&H of 11.2/35, MCV 90, platelet count 278,000 - Free kappa light chain --> 17, free lambda light chain 14, Cardwell/Lambda ratio 1.28 - Ig, IgA 104, IgM 72. -Vitamin B12 --> 274 ( 02/17/2023) Blood workup done on 12/24/2022: -WBC 5900, H&H of 11.9/36.5, Platelet count 699062. MCV 89.7 -Ferritin level -> 36 -Serum iron 49, TIBC 355, iron saturation 14%. Blood workup done on 03/31/2023: WBC 6100 H&H of 10.5/32 Platelet count 296,000 -BUN/Creat: 19/1.0, normal LFT. -Serum iron: 88, TIBC 365, iron saturation 24% -Ferritin level --> 90. -Vitamin B12 --> 274 (02/17/2023), she was started oral B12 supplementation I reviewed blood workup done on 04/08/2023 with her: -WBC 6006, H&H of 9.5/29.5, Platelet count 487126 -Absolute reticulocyte count --> 110,000 -Serum iron: 80, TIBC 360, iron saturation 22% -Ferritin level --> 105, Vitamin B12 --> 499 folic acid --> > 20 -LDH --> 212. -free kappa light chain 17, free lambda light chain 14, Cardwell/Lambda ratio 1.2 -M spike --> 0.61 -IgG 1251, IgA 87, IgM 62. IMAGING: Pelvic ultrasound (August 2021) - 1. The endometrial stripe measures 9.6 mm, abnormally thick for a postmenopausal patient. Furtherevaluation with biopsy is suggested. 2. An anterior intramural uterine leiomyoma with calcifications measuring 2.2 x 2.5 x 2.6 cm. 3. The right ovary was not seen. The left ovary is grossly unremarkable. Endometrium, curettings: (01/03/2022). - Benign atrophic endometrium - Negative for atypia, hyperplasia, and malignancy CT angiogram of the head and neck (July 2021 ) 1. Severe multifocal stenoses and occlusion of the intracranial segments of the right internal carotid artery. Although there is no significant stenosis at the right carotid bifurcation, the cervicalICA is collapsed due to downstream tandem stenosis/occlusion. 2. The right anterior circulation is likely predominantly supplied via collaterals from the external carotid artery and cross-filling across the anterior communicating artery complex, although the right A1 segment is diminutive and irregular in caliber. There is no significant contribution from theposterior communicating artery/posterior circulation, which is very hypoplastic and not visualized. 3. Severe stenosis and focal occlusion or near-occlusion of the intradural right vertebral artery. ASSESSMENT AND PLAN: 66-year-old female, Who has IgG lambda paraproteinemia which appears to be MGUS but now has some worsening anemia, latest hemoglobin is around 10.5. She is also on oral Coumadin. Recently she had accidental fall with injury to the left upper extremity, she would significant hematoma may be contributing to the drop in the hemoglobin level. I reviewed her blood workup done on 04/16/2023, hemoglobin further dropped down 9.5 g/dL. Reticulocytosis noted suggest bone marrow is recovering. No evidence of B12, folic acid, iron deficiency. Paraprotein level has remained stable. Now B12 level is normal after taking oral B12 supplementation. She is going for right knee replacement surgery on 05/11/2023. I would like to repeat CBCD, reticulocyte count, this week. She already has an appoint with me in 09/2023 Dr. Efraín Leone Hem/Onc (This note was completed using the dictation program Fluency Direct. As such, there may be misspellings word substitutions, or other variations that should not change the essence of the clinical content of this encounter note. If there is need for further clarification, please direct questions to the provider listed above.) documented in this encounter Nursing Notes * Reny Doran CMA - 04/21/2023 1:35 PM EDT Patient identifed by name and birthdate Do you have any concerns about pain management for today's visit? Yes. Patient instructed to discuss pain concerns with provider during the visit today Living Will or Advance Directive for Health Care as noted on the problem list. [employer] [facility] is a way you can talk to your provider on line through e-mail. Would you like to sign up? I can activate it for you? ALREADY ACTIVE Filed Vitals: 04/21/23 1335 BP: 193/73 Pulse: 55 Resp: 16 Temp: 36.6 C (97.8 F) TempSrc: Tympanic SpO2: 94% Weight: 99.1 kg (218 lb 8 oz) Patient was instructed to not get up on the exam table/exam chair until directed and assisted by their provider; patient is to remain seated in the chair/ wheelchair/ exam table/ exam chair for fall prevention and safety reasons. Patient is aware to have assistance to step down off exam table/exam chair with personnel. Patient voiced full comprehension of instructions. documented in this encounter Plan of Treatment Upcoming Encounters Date Type Specialty Care Team Description 04/23/2023 Office Visit Orthopedics Forrest Davidson, DO [address] [facility] [place] [address] 04/27/2023 Office Visit Cardiology Feliberto Diggs, DO [address] [place] [address] 04/29/2023 [facility] [address] [place] [address] 05/11/2023 Hospital Encounter Surgery Forrest Davidson, DO [address] [place] [address] 05/11/2023 Surgery Surgery Forrest Davidson, DO [address] [place] [address] ROBOTIC ARTHROPLASTY KNEE TOTAL 05/12/2023 [facility] [address] [place] [address] 05/21/2023 Office Visit Orthopedics Forrest Davidson, DO [address] [place] [address] 09/30/2023 Office Visit Family Medicine [place] Shiva ANDRADE MD [address] [place] [address] 10/01/2023 Office Visit Hematology Oncology Efraín Leone MD [address] [place] [address] 11/12/2023 Office Visit Dermatology Margarita Figueredo PA-C [address] [place] [phone] 02/25/2024 Imaging Radiology 04/21/2024 Office Visit Sleep Disorders Viktoriya White CRNP [address] [place] [address] Scheduled Orders Name Type Priority Associated Diagnoses Orde r Schedule CBC WITH WBC DIFFERENTIAL Lab STAT Normocytic anemia Expected: 04/24/2023, Expires: 04/21/2024 RETICULOCYTE PANEL Lab Routine Normocytic anemia Expected: 04/24/2023, Expires: 04/21/2024 Scheduled Procedures Name Priority Associated Diagnoses Date/Ti [...] as of this encounter Visit Diagnoses Diagnosis Normocytic anemia- Primary Anemia, unspecified Knee osteoarthritis Osteoarthrosis, unspecified whether generalized or localized, lower leg documented in this encounter Care Teams Party Plan Dealer Relationship Specialty Start Date End Date Shiva Rich III, MD [address] [place] [id number] PCP - General Family Medicine 09/10/18 documented as of this encounter"
--- OUTSIDE RECORDS SUMMARY | 2023-07-14 14:45 | External Medical Summary | Summary of Care ---
Author Name Unknown Organization [facility] Address [address] [facility] [place] [address] Phone [phone] Care Team Providers Care Security Incident Response Engineer Name Role Phone Hilario ANDRADE MD, Shiva Kebede Primary Care Provider [phone] Reason for Visit * Reason Comments Outpatient Testing Encounter Details Date Type Department Care Team Description 04/16/2023 Laboratory Laboratory, [facility] [id number] [facility] 132 [place] [address] Paroxysmal atrial fibrillation (HCC); Normocytic anemia; Monoclonal paraproteinemia; Nutritional anemia Allergies Active Allergy Reactions Severity Noted Date Comments Bee Venom Edema Other 01/10/2016 Lisinopril Cough 09/04/2016 documented as of this encounter (statuses as of 04/16/2023) Medications Medication Sig Dispensed Refills Start Date [...] (5mg) ALL OTHER EVENINGS OR DIRECTED BY [facility]. 105 Tablet 3 07/18/2022 Active [...] mg before bedtime. As instructed by the [facility]. 10 mL 0 04/01/2023 Active documented as of this encounter (statuses as of 04/16/2023) Active Problems Problem Noted Date Atherosclerosis of mechoopda coronary arter y without angina pectoris 09/10/2022 [...] as of this encounter (statuses as of 04/16/2023) Resolved Problems Problem Noted Date Resolved Date Atherosclerotic heart diseas e of mechoopda coronary artery with other forms of angina [...] as of this encounter (statuses as of 04/16/2023) Immunizations Name Administration Dates Next Due COVID-19 mRNA, LNP-s, No Pre serve, 2-Dose Series (Squrl) 05/16/2021,09/23/2020,08/26/2020 Covid-19, Mrna, Lnp-s, Pf, B ivalent, 30 Mcg, IM, 12 yrs and above (Squrl) 05/09/2022 Pneumococcal Conjugate Vacc, 13 Valent (Prevnar) 12/21/2017 Pneumococcal Polysaccharide PPV23 (Pneumovax) 01/31/2022,11/19/2016 Seasonal Influenza, PF, 6 mo ns & Above, IM , (Flulaval) 04/13/2020,04/15/2019,04/26/2018,04/08 Seasonal Influenza, Quadriva lent Hd (Fluzone [...] White CRNP [address] [place] [address] 04/23/2023 Office Visit Orthopedics Forrest Davidson, DO [address] [place] [address] 04/28/2023 [facility] [address] [place] [address] 05/11/2023 Hospital Encounter Surgery Forrest Davidson, DO [address] [place] [address] 05/11/2023 Surgery Surgery Forrest Davidson, DO [address] [place] [address] ROBOTIC ARTHROPLASTY KNEE TOTAL 05/12/2023 Anticoagulation Pharmacy [facility] [address] [place] [address] 05/21/2023 Office Visit Orthopedics Forrest Davidson, DO [address] [place] [address] 09/30/2023 Office Visit Family Medicine Hilario Shiva ANDRADE MD [address] [place] [address] 10/01/2023 Office Visit Hematology Oncology Efraín Leone MD [address] [place] [address] 11/11/2023 Office Visit Dermatology Kirsten Shah MD 02/25/2024 Imaging Radiology Pending Results Name Type Priority Associated Diagnoses Date /Time PT INR Lab Routine Paroxysmal atrial fibrillation (HCC) 04/16/2023 9:27 AM EDT CBC WITH WBC DIFFERENTIAL Lab STAT Normocytic anemia Monoclonal paraproteinemia Nutritional anemia 04/16/2023 9:27 AM EDT RETICULOCYTE PANEL Lab Routine Normocytic anemia Monoclonal paraproteinemia Nutritional anemia 04/16/2023 9:27 AM EDT IRON SCREEN, INCLUDING TIBC Lab Routine Normocytic anemia Monoclonal paraproteinemia Nutritional anemia 04/16/2023 9:27 AM EDT FERRITIN Lab Routine Normocytic anemia Monoclonal paraproteinemia Nutritional anemia 04/16/2023 9:27 AM EDT VITAMIN B12 Lab Routine Normocytic anemia Monoclonal paraproteinemia Nutritional anemia 04/16/2023 9:27 AM EDT FOLIC ACID Lab Routine Normocytic anemia Monoclonal paraproteinemia Nutritional anemia 04/16/2023 9:27 AM EDT LD Lab Routine Normocytic anemia Monoclonal paraproteinemia Nutritional anemia 04/16/2023 9:27 AM EDT SERUM FREE LIGHT CHAINS Lab Routine Normocytic anemia Monoclonal paraproteinemia Nutritional anemia 04/16/2023 9:27 AM EDT SERUM PROTEIN ELECTROPHORESIS REFLEX PROFILE Lab Routine Normocytic anemia Monoclonal paraproteinemia Nutritional anemia 04/16/2023 9:27 AM EDT IMMUNOGLOBULIN QUANTITATIVE Lab Routine Normocytic anemia Monoclonal paraproteinemia Nutritional anemia 04/16/2023 9:27 AM EDT CBC Lab STAT Normocytic anemia Monoclonal paraproteinemia Nutritional anemia 04/16/2023 9:27 AM EDT DIFFERENTIAL, AUTOMATED Lab STAT Normocytic anemia Monoclonal paraproteinemia Nutritional anemia 04/16/2023 9:27 AM EDT Scheduled Procedures Name Priority Associated [...] history exists Albumin/Creatinine Ratio 02/18/2024 02/17/2023, 01/17 B-12 02/18/2024 02/17/2023, 09/18, 02/03/2022, Additional history exists Mammogram 02/24/2024 02/23/2023, 05/20, 03/06/2022, Additional history exists GFR 03/31/2024 03/31/2023, 12/2022, 07/22/2022, Additional history exists COLONOSCOPY-EVERY 3 YRS AGES 18-100 04/11/2024 04/11/2021, 03/16/2019, 02/16/2018, Additional history exists DTaP,Tdap,and Td Vaccines (2 [...] Diagnosis Paroxysmal atrial fibrillation (HCC) Atrial fibrillation Normocytic anemia Anemia, unspecified Monoclonal paraproteinemia Nutritional anemia Unspecified deficiency anemia Knee osteoarthritis Osteoarthrosis, unspecified whether generalized or localized, lower leg documented in this encounter Care Teams Security Incident Response Engineer Relationship Specialty Start Date End Date Shiva Rich III, MD [address] [place] [id number] PCP - General Family Medicine 09/10/18 documented as of this encounter
--- OUTSIDE RECORDS SUMMARY | 2023-07-14 14:45 | External Medical Summary ---
Author Name Unknown Address Unknown Organization K01:[facility] - [address] [place] [address] Laboratory Report Ordering Provider Test Date Status JOSHUA MARR 04/16/2023 09:27:36 Final Observation Date Value Abnormality Reference (Units ) Status Folic Acid 04/16/2023 09:27:36 >20.0 >4.5 (ng/ mL) Final Performing Location [facility] - [address] [place] [address]
--- OUTSIDE RECORDS SUMMARY | 2023-07-14 14:45 | External Medical Summary | Summary of Care ---
Author Name Unknown Organization [facility] Address [address] [facility] [place] [address] Phone [phone] Care Team Providers Care Color Weigher Name Role Phone Hilario ANDRADE MD, Shiva Kebede Primary Care Provider [phone] Reason for Visit * Reason Comments Outpatient Testing Encounter Details Date Type Department Care Team Description 04/16/2023 Laboratory Laboratory, [facility] [place] [phone] [facility] 132 [place] [address] Paroxysmal atrial fibrillation (HCC); Normocytic anemia; Monoclonal [...] (5mg) ALL OTHER EVENINGS OR DIRECTED BY [facility]. 105 Tablet 3 07/18/2022 [...] mg before bedtime. As instructed by the [facility]. 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 09/10/2022 [...] Resolved Date Atherosclerotic heart diseas e of menominee coronary artery with other forms of angina [...] mRNA, LNP-s, No Pre serve, 2-Dose Series (I AM AT) 05/16/2021,09/23/2020,08/26/2020 Covid-19, Mrna, Lnp-s, Pf, B ivalent, 30 Mcg, IM, 12 yrs and above (I AM AT) 05/09/2022 Pneumococcal Conjugate Vacc, 13 Valent (Prevnar) [...] at Date Recorded Female 03/29/2022 9:05 AM EDT Job Start Date Occupation Industry Not on file Not on file Not on file documented as of this encounter Plan of Treatment Upcoming Encounters Date Type Specialty Care Team Description 04/21/2023 Office Visit Sleep Disorders Viktoriya White CRNP [address] [place] [address] 04/23/2023 Office Visit Orthopedics Forrest Davidson, DO [address] [place] [address] 04/28/2023 [facility] [address] [place] [address] 05/11/2023 Hospital Encounter Surgery Forrest Davidson, DO [address] [place] [address] 05/11/2023 Surgery Surgery Forrest Davidson, DO [address] [place] [address] ROBOTIC ARTHROPLASTY KNEE TOTAL 05/12/2023 Anticoagulation Pharmacy [facility] [address] [place] [address] 05/21/2023 Office Visit Orthopedics Forrest Davidson, DO [address] [place] [address] 09/30/2023 Office Visit Family Medicine Hilario IIIShiva MD [address] [place] [address] [address] 10/01/2023 Office Visit Hematology Oncology Efraín Leone MD [address] [place] [address] [address] 11/11/2023 Office Visit Dermatology Kirsten Shah MD 02/25/2024 Imaging Radiology Pending Results Name Type Priority Associated Diagnoses Date /Time PT INR Lab Routine Paroxysmal atrial fibrillation (HCC) 04/16/2023 9:27 AM EDT RETICULOCYTE PANEL Lab [...] 03/06/2022, Additional history exists GFR 03/31/2024 03/31/2023, 020 12/2022, 07/22/2022, Additional history exists COLONOSCOPY-EVERY 3 [...] Date/Time Associated Diagnosis Comments DIFFERENTIAL, AUTOMATED STAT 04/16/2023 9:27 AM EDT Normocytic anemia Monoclonal paraproteinemia Nutritional anemia CBC STAT 04/16/2023 9:27 AM EDT Normocytic anemia Monoclonal paraproteinemia Nutritional anemia CBC STAT 04/16/2023 9:27 AM EDT Normocytic anemia Monoclonal paraproteinemia Nutritional anemia documented in this encounter Results * DIFFERENTIAL, AUTOMATED (04/16/2023 9:27 AM EDT) WBC 6.67 4.00 - 10.80 K/uL 04/16/2023 9:41 AM EDT LAB[facility]ATORY [place] [facility]10 Neutrophils % 69.3 40.0 - 75.0 % 04/16/2023 9:41 AM EDT LAB[facility] [place] [facility]10 Lymphocytes % 19.8 18.0 - 42.0 % 04/16/2023 9:41 AM EDT LAB[facility] [place] 57[facility]10 Monocytes % 9.1 1.0 - 11.0 % 04/16/2023 9:41 AM EDT LAB[facility] [place] [facility]10 Eosinophils % 1.5 0.0 - 6.0 % 04/16/2023 9:41 AM EDT LAB[facility]ORY [place] 57[facility]10 Basophils % 0.3 0.0 - 2.0 % 04/16/2023 9:41 AM EDT LAB[facility] [place] [facility]10 Absolute Neutrophils 4.62 1.80 - 7.70 K/uL 04/16/2023 9:41 AM EDT LAB[facility] [place] [facility]10 Absolute Lymphocytes 1.32 1.00 - 4.80 K/ul 04/16/2023 9:41 AM EDT LAB[facility] [place] [facility]10 Absolute Monocytes 0.61 0.00 - 1.10 K/uL 04/16/2023 9:41 AM EDT LAB[facility] [place] [facility]10 Absolute Eosinophils 0.10 0.00 - 0.70 K/uL 04/16/2023 9:41 AM EDT LAB[facility] [place] [facility]10 Absolute Basophils 0.02 0.00 - 0.20 K/uL 04/16/2023 9:41 AM EDT [facility] [place] [facility]10 Blood Venous blood specimen / Unknown Venipuncture / Unknown 04/16/2023 9:27 AM EDT 04/16/2023 9:27 AM EDT Efraín Leone MD LAB BLOOD ORDERABLES [facility] [place] [facility]10 [address] [place] [address] * (ABNORMAL) CBC (04/16/2023 9:27 AM EDT) WBC 6.67 4.00 - 10.80 K/uL 04/16/2023 9:41 AM EDT [facility] [place] [facility]10 RBC 3.05 3.85 - 5.15 M/uL 04/16/2023 9:41 AM EDT [facility] [place] [facility]10 HGB 9.5(L) 12.0 - 15.3 g/dL 04/16/2023 9:41 AM EDT [facility] [place] [facility]10 HCT 29.5(L) 36.0 - 45.2 % 04/16/2023 9:41 AM EDT [facility] [place] [facility]10 MCV 96.7 81.5 - 97.5 fL 04/16/2023 9:41 AM EDT [facility] [place] [facility]10 MCH 31.1 27.0 - 34.0 pg 04/16/2023 9:41 AM EDT [facility] [place] [facility]10 MCHC 32.2 32.0 - 36.0 g/dL 04/16/2023 9:41 AM EDT [facility] [place] [facility]10 RDW 15.3 11.5 - 15.5 % 04/16/2023 9:41 AM EDT [facility] [place] [facility]10 PLT 263 140 - 400 K/uL 04/16/2023 9:41 AM EDT [facility] [place] [facility]10 MPV 9.5 6.6 - 11.1 fL 04/16/2023 9:41 AM EDT LAB[facility] [place] [facility]10 Blood Venous blood specimen / Unknown Venipuncture / Unknown 04/16/2023 9:27 AM EDT 04/16/2023 9:27 AM EDT Efraín Leone MD LAB BLOOD ORDERABLES [facility] [id number] [place] [address] documented in this encounter Visit Diagnoses Diagnosis Paroxysmal atrial fibrillation (HCC) Atrial fibrillation Normocytic anemia Anemia, unspecified Monoclonal paraproteinemia Nutritional anemia Unspecified deficiency anemia Knee osteoarthritis Osteoarthrosis, unspecified whether generalized or localized, lower leg documented in this encounter Care Teams Color Weigher Relationship Specialty Start Date End Date Shiva Rich III, MD [address] [place] [address] PCP - General Family Medicine 09/10/18 documented as of this encounter
--- OUTSIDE RECORDS SUMMARY | 2023-07-14 14:45 | External Medical Summary | Summary of Care ---
Author Name Unknown Organization [facility] Address [address] [facility] [place] [address] Phone [phone] Care Team Providers Care Project Coordinator Name Role Phone Hilario ANDRADE MD, Shiva Kebede Primary Care Provider [phone] Encounter Details Date Type Department Care Team [...] Active Problems Problem Noted Date Atherosclerosis of kletsel dehe wintun coronary arter y without angina pectoris 09/10/2022 [...] Resolved Date Atherosclerotic heart diseas e of kletsel dehe wint[place] coronary artery with other forms of angina [...] Disorders Viktoriya White CRNP [address] [place] [address] 04/23/2023 Office Visit Orthopedics Forrest Davidson, DO [address] [place] [address] 04/27/2023 Office Visit Cardiology Feliberto Diggs, DO [address] [place] [address] 04/29/2023 [facility] [address] [place] [address] 05/11/2023 Hospital Encounter Surgery Forrest Davidson, DO [address] [place] [address] 05/11/2023 Surgery Surgery Forrest Davidson, DO [address] [place] [address] ROBOTIC ARTHROPLASTY KNEE TOTAL 05/12/2023 [facility] [address] [place] [address] 05/21/2023 Office Visit Orthopedics Forrest Davidson, DO [address] [place] [address] 09/30/2023 Office Visit Family Medicine Hilario IIIShiva MD [address] [place] [address] 10/01/2023 Office Visit Hematology Oncology Efraín Leone MD [address] [place] [address] 11/12/2023 Office Visit Dermatology Margarita Figueredo PA-C [...] filedocumented as of this encounter Care Teams Project Coordinator Relationship Specialty Start Date End Date Shiva Rich III, MD 200 [facility] [address] PCP - General Family Medicine 09/10/18 documented as of this encounter
--- OUTSIDE RECORDS SUMMARY | 2023-07-14 14:45 | External Medical Summary ---
Author Name Unknown Address Unknown Organization K01:LAB[facility]ATORY [facility] - [address] [place] [address] Laboratory Report Ordering Provider Test Date Status JOSHUA MARR 04/16/2023 09:27:36 Final Observation Date Value Abnormality Reference (Units ) Status Ferritin 04/16/2023 09:27:36 105 13-150 (ng /mL) Final Postmenopausal women have hi gher ferritin levels than pre-menopausal women. The above reference interval is based on pre-menopausal women. Performing Location [facility] - [address] [place] [address]
--- OUTSIDE RECORDS SUMMARY | 2023-07-14 14:45 | External Medical Summary | Summary of Care ---
Author Name Unknown Organization [facility] Address [address] [facility] [place] [address] Phone [phone] Care Team Providers Care Dry Food Products Mixer Name Role Phone Hilario ANDRADE MD, Shiva Kebede Primary Care Provider [phone] Encounter Details Date Type Department Care Team [...] Active Problems Problem Noted Date Atherosclerosis of ruby coronary arter y without angina pectoris 09/10/2022 [...] Resolved Date Atherosclerotic heart diseas e of ruby coronary artery with other forms of angina [...] Disorders Viktoriya White CRNP [address] [place] [address] 04/23/2023 Office Visit Orthopedics Forrest Davidson, DO [address] [place] [address] 04/27/2023 Office Visit Cardiology Feliberto Diggs, DO [address] [place] [address] 04/29/2023 [facility] [address] [place] [address] 05/11/2023 Hospital Encounter Surgery Forrest Davidson, DO [address] [place] [address] 05/11/2023 Surgery Surgery Forrest Davidson, DO [address] [place] [address] ROBOTIC ARTHROPLASTY KNEE TOTAL 05/12/2023 [facility] [address] [place] [address] 05/21/2023 Office Visit Orthopedics Forrest Davidson, DO [address] [place] [address] 09/30/2023 Office Visit Family Medicine Hilario IIIShiva MD [address] [place] [address] 10/01/2023 Office Visit Hematology Oncology Efraín Leone MD [address] [place] [address] 11/12/2023 Office Visit Dermatology Margarita Figueredo PA-C [...] filedocumented as of this encounter Care Teams Dry Food Products Mixer Relationship Specialty Start Date End Date Shiva Rich III, MD [address] [facility] [place] [address] PCP - General Family Medicine 09/10/18 documented as of this encounter
--- OUTSIDE RECORDS SUMMARY | 2023-07-14 14:45 | External Medical Summary ---
Author Name Unknown Address Unknown Organization [id number]:[facility] - [address] [place] [address] Laboratory Report Ordering Provider Test Date Status INDER KINCAID 04/16/2023 09:27:36 Final Standing order for pt/inr. < br/>Please draw pt/inr every 1 to 4 weeks as requested
Results to [facility]

Warfarin Therapy
INR: 2.0-3.0 conventional anticoagulation
INR: 2.5-3.5 high intensity anticoagulation Observation Date Value Abnormality Reference (Units ) Status PT 04/16/2023 09:27:36 30.5 Above high normal 11 .6-15.2 (seconds) Final INR 04/16/2023 09:27:36 2.9 Above high normal 0. 8-1.2 Final Performing Location [facility] 0 - [address] [place] [address]
--- OUTSIDE RECORDS SUMMARY | 2023-07-14 14:45 | External Medical Summary ---
Author Name Unknown Address Unknown Organization K01:[facility] [place] - [facility] [place] [address] Laboratory Report Ordering Provider Test Date Status JOSHUA MARR 04/16/2023 09:27:36 Final Observation Date Value Abnormality Reference (Units ) Status Somers light chains, Free, Serum 04/16/2023 09:27:36 17.04 3.30-19.40 (mg/L) Final Lambda light chains, free, Serum 04/16/2023 09:27:36 14.02 5.71-26.30 (mg/L) Final KAPPA LAMBDA FLC RATIO 04/16/2023 09:27:36 1.22 0.26-1.65 Final Performing Location LABORATORY [facility] [place] - [facility] [place] [address]
--- OUTSIDE RECORDS SUMMARY | 2023-07-14 14:45 | External Medical Summary | Summary of Care ---
Author Name Unknown Organization [facility] Address [address] [facility] [place] [address] Phone [phone] Care Team Providers Care Patient Service Coordinator Name Role Phone Hilario ANDRADE MD, Shiva Kebede Primary Care Provider [phone] Reason for Visit * Reason Comments Dosage Adjustment Via Phone (anticoag Cl inic) Encounter Details Date Type Department Care Team Description 04/17/2023 Anticoagulation Pharmacy Call Center [address] [place] [address] [facility] [address] [facility] [place] [address] Paroxysmal atrial fibrillation (HCC)* Allergies Active Allergy Reactions Severity Noted Date Comments Bee Venom Edema Other 01/10/2016 Lisinopril Cough 09/04/2016 documented as of this encounter (statuses as of 04/17/2023) Medications Medication Sig Dispensed Refills Start Date [...] ALL OTHER EVENINGS OR DIRECTED BY [facility]. 105 Tablet 3 07/18/2022 [...] mg before bedtime. As instructed by the [facility]. 10 mL 0 04/01/2023 Active documented as of this encounter (statuses as of 04/17/2023) Active Problems Problem Noted Date Atherosclerosis of navajo coronary arter y without angina pectoris 09/10/2022 [...] as of this encounter (statuses as of 04/17/2023) Resolved Problems Problem Noted Date Resolved Date [...] as of this encounter (statuses as of 04/17/2023) Immunizations Name Administration Dates Next Due COVID-19 mRNA, LNP-s, No Pre serve, 2-Dose Series (Wow! Stuff) 05/16/2021,09/23/2020,08/26/2020 Covid-19, Mrna, Lnp-s, Pf, B ivalent, 30 Mcg, IM, 12 yrs and above (Wow! Stuff) 05/09/2022 Pneumococcal Conjugate Vacc, 13 Valent (Prevnar) [...] Progress Notes * Heydi Frias RPh - 04/17/2023 8:28 AM EDT Medication Therapy Disease Management - Anticoagulation Patient: Nenita Fleming | : 1955 Subjective Contacts Type Contact Phone/Fax 04/17/2023 10:41 AM EDT Phone (Outgoing) Nenita Fleming (Self) [phone] (M) Left Message LMOVM with INR results and warfarin dosing. Advised [facility] to follow-up 1-2 weeks prior to upcoming procedure for bridge review. Patient-Reported Symptoms: Patient Findings Positives: Upcoming invasive procedure (Total knee replacement - 05/11/23 - lovenox bridge (see letters)) Objective Current Warfarin Dose As of 04/17/2023 Warfarin maintenance plan: 7.5 mg (5 mg x 1.5) every Fri; 5 mg (5 mg x 1) all other days INR Result As of 04/17/2023 INR goal: 2.0-3.0 INR used for dosin.9 (04/16/2023) Assessment & Plan Warfarin Plan As of 04/17/2023 Full warfarin instructions: 05/06: Hold; 05/07: Hold; 05/08: Hold; 05/09: Hold; 05/10: Hold; Otherwise 7.5 mg every Fri; 5 mg all other days No change documented: Heydi Frias RPh Next INR check: Repeat PT/INR -- TBD post-procedure Weekly dose: not changed Additional Dosing Information: Description Stover's Gambino- pt prefers Thurs AMIODARONE started 04/28/22 Heydi Frias RPh Clinical Pharmacist 04/17/2023, 8:28 AM documented in this encounter Plan of Treatment Upcoming Encounters Date Type Specialty Care Team Description 04/21/2023 Office Visit Sleep Disorders Viktoriya White CRNP [address] [place] [address] 04/23/2023 Office Visit Orthopedics Forrest Davidson, DO [address] [place] [address] 04/29/2023 [facility] [address] [place] [address] 05/11/2023 Hospital Encounter Surgery Forrest Davidson, DO [address] [place] [address] 05/11/2023 Surgery Surgery Forrest Davidson, DO [address] [place] [address] ROBOTIC ARTHROPLASTY KNEE TOTAL 05/12/2023 [facility] [address] [facility] [place] [address] 05/21/2023 Office Visit Orthopedics Forrest Davidson, DO [address] [place] [address] 09/30/2023 Office Visit Family Medicine Hilario IIIShiva MD 200 [facility] [place] [address] 10/01/2023 Office Visit Hematology Oncology Efraín Leone MD 200 [facility] [place], [place] [address] 11/11/2023 Office Visit Dermatology Kirsten Shah MD 02/25/2024 Imaging Radiology Scheduled Procedures Name Priority Associated Diagnoses Date/Ti me ROBOTIC ARTHROPLASTY KNEE TOTAL Knee osteoarthritis 05/11/2023 10:23 AM EDT COLONOSCOPY FLEXIBLE PROXIMAL DIAGNOSTIC Recall History of colonic polyps Health Maintenance Due Date Last Done Comments Depression Screening 06/24/2020 06/24/2019 Diabetic Foot Exam 01/31/2023 01/31/2022, 0 12/31/2020, 06/24/2019, Additional history exists HbA1c 08/20/2023 02/17/2023, 022 08/2022, 02/03/2022, Additional history exists DIABETES-EYE EXAM 08/28/2023 [...] leg documented in this encounter Care Teams Patient Service Coordinator Relationship Specialty Start Date End Date Sihva Rich III, MD [address] [place] [address] PCP - General Family Medicine 09/10/18 documented as of this encounter"
--- OUTSIDE RECORDS SUMMARY | 2023-07-14 14:45 | External Medical Summary ---
Author Name Unknown Address Unknown Organization [id number]:[facility] [address] [place] [address] Laboratory Report Ordering Provider Test Date Status JOSHUA MARR 04/16/2023 09:27:36 Final Observation Date Value Abnormality Reference (Units ) Status LDH 04/16/2023 09:27:36 212 <=250 (U/L ) Final Performing Location [facility] - [address] [place] [address]
--- OUTSIDE RECORDS SUMMARY | 2023-07-14 14:45 | External Medical Summary ---
Author Name Unknown Address Unknown Organization [id number]:[facility] [place] [address] [facility] [address] [facility] [address] [facility] [address] Laboratory Report Ordering Provider Test Date Status JOSHUA MARR 04/16/2023 09:27:36 Final Observation Date Value Abnormality Reference (Units) Status Protein 04/16/2023 09:27:36 6.7 6.0-8.3 (g/dL) Final Albumin/Protein.total [Pure mass fraction] in Serum or Plasma by Electrophoresis 04/16/2023 09:27:36 3.38 3.30-4.40 (g/dL) Final Alpha 1 globulin/Protein.total [Pure mass fraction] in Serum or Plasma by Electrophoresis 04/16/2023 09:27:36 0.30 0.10-0.30 (g/dL) Final Alpha 2 globulin/Protein.total [Pure mass fraction] in Serum or Plasma by Electrophoresis 04/16/2023 09:27:36 1.00 0.60-1.00 (g/dL) Final Beta globulin/Protein.total [Pure mass fraction] in Serum or Plasma by Electrophoresis 04/16/2023 09:27:36 0.83 0.80-1.30 (g/dL) Final Gamma globulin/Protein.total [Pure mass fraction] in Serum or Plasma by Electrophoresis 04/16/2023 09:27:36 1.19 0.70-1.70 (g/dL) Final Monoclonal protein 04/16/2023 09:27:36 0.61 (g/dL) Final Protein Fractions [Interpretation] in Serum or Plasma by Electrophoresis Narrative 04/16/2023 09:27:36 A paraprotein is present that has been previously identified as a monoclonal IgG lambda. Final Performing Location [facility] [place] [address] [facility] [address]
--- OUTSIDE RECORDS SUMMARY | 2023-07-14 14:46 | External Medical Summary ---
Author Name Unknown Address Unknown Organization [id number]:[facility] - [address] [place] [address] Laboratory Report Ordering Provider Test Date Status JOSHUA MARR 04/16/2023 09:27:36 Final Observation Date Value Abnormality Reference (Units ) Status Vitamin B12 04/16/2023 09:27:36 282 290-8373 (pg/mL) Final Performing Location [facility] - [address] [place] [address]
--- OUTSIDE RECORDS SUMMARY | 2023-07-14 14:46 | External Medical Summary ---
Author Name Unknown Address Unknown Organization [id number]:[facility] [place] [facility] [place] [address] [place] [address] Laboratory Report Ordering Provider Test Date Status JOSHUA MARR 03/31/2023 14:11:05 Final Observation Date Value Abnormality Reference (Units ) Status Ferritin 03/31/2023 14:11:05 90 13-150 (ng /mL) Final Postmenopausal women have hi gher ferritin levels than pre-menopausal women. The above reference interval is based on pre-menopausal women. Performing Location [facility] - [address] [place] [address]
--- OUTSIDE RECORDS SUMMARY | 2023-07-14 14:46 | External Medical Summary ---
Author Name Unknown Address Unknown Organization [id number]:LABORATORY [facility] [place] [address] - [address] [place] [address] Laboratory Report Ordering Provider Test Date Status JOSHUA MARR 04/16/2023 09:27:36 Final Observation Date Value Abnormality Reference (Units ) Status WBC, Total 04/16/2023 09:27:36 6.67 4.00-10.8 0 (K/uL) Final RBC 04/16/2023 09:27:36 3.05 3.85-5.15 (M/uL) Final Hemoglobin 04/16/2023 09:27:36 9.5 Below low normal 12 .0-15.3 (g/dL) Final HCT 04/16/2023 09:27:36 29.5 Below low normal 36. 0-45.2 (%) Final MCV 04/16/2023 09:27:36 96.7 81.5-97.5 (fL) Final MCH 04/16/2023 09:27:36 31.1 27.0-34.0 (pg) Final MCHC 04/16/2023 09:27:36 32.2 32.0-36.0 (g/dL) Final RDW 04/16/2023 09:27:36 15.3 11.5-15.5 (%) Final Platelets 04/16/2023 09:27:36 263 140-400 (K /uL) Final MPV 04/16/2023 09:27:36 9.5 6.6-11.1 ( fL) Final Performing Location LAB[facility]ATORY [facility] [place] [address] 0 - [address] [place] [address]
--- OUTSIDE RECORDS SUMMARY | 2023-07-14 14:46 | External Medical Summary ---
Author Name Unknown Address Unknown Organization [id number]:LABORATORY [facility] [place] - [address] [place] [address] Laboratory Report Ordering Provider Test Date Status JOSHUA MARR 04/16/2023 09:27:36 Final Observation Date Value Abnormality Reference (Units ) Status Retic, % (auto) 04/16/2023 09:27:36 3.61 Above high normal 0.80-1.90 (%) Final Reticulocytes, Absolute 04/16/2023 09:27:36 110.1 Above high normal 31.3-100.1 (K/uL) Final Reticulocyte fraction, immature 04/16/2023 09:27:36 23.6 Above high normal 2.5-20.6 (%) Final Reticulocyte HGB 04/16/2023 09:27:36 36.4 29.7-37.4 (pg) Final Performing Location [facility] [place] [facility] [address] [facility] [address]
--- OUTSIDE RECORDS SUMMARY | 2023-07-14 14:46 | External Medical Summary ---
Author Name Unknown Address Unknown Organization [id number]:[facility] [place] [address] [place] [address] Laboratory Report Ordering Provider Test Date Status JOSHUA MARR 03/31/2023 14:11:05 Final Observation Date Value Abnormality Reference (Units ) Status Iron 03/31/2023 14:11:05 88 33-151 (ug /dL) Final Iron-binding capacity 03/31/2023 14:11:05 365 250-425 (ug/dL) Final Transferrin Sat % 03/31/2023 14:11:05 24 15 -55 (%) Final Performing Location [facility] [place] [address] [place] [address]
--- OUTSIDE RECORDS SUMMARY | 2023-07-14 14:46 | External Medical Summary | Summary of Care ---
Author Name Unknown Organization [facility] Address [address] [facility] [place] [address] Phone [phone] Care Team Providers Care Weld Inspector Name Role Phone Hilario ANDRADE MD, Shiva Kebede Primary Care Provider [phone] Reason for Visit * Reason Comments Re-Check Encounter Details Date Type Department Care Team Description 03/18/2023 Office Visit Family Practice [facility] [place] [place] [address] [facility] [place] [address] Shiva Rich III, MD [address] [facility] [place] [address] Essential hypertension with goal blood pressure less than 140/90*; Hemiplegia and hemiparesis following cerebral infarction affecting left non-dominant side (HCC) Allergies Active Allergy Reactions Severity Noted Date Comments Bee Venom Edema Other 01/10/2016 Lisinopril Cough 09/04/2016 documented as of this encounter (statuses as of 03/24/2023) Medications Medication Sig Dispensed Refills Start Date [...] the morning. 30 Tablet 12 2 Active metFORMIN HCl 500 MG Oral Tablet (Glucophage) TAKE 2 TABLETS BY MOUTH TWO TIMES DAILY WITH MORNING AND EVENING MEALS 360 Tablet 3 2 Active Metoprolol Succinate ER 25 MG [...] (5mg) ALL OTHER EVENINGS OR DIRECTED BY [facility]. 105 Tablet 3 2 Active Multi Vitamin Daily Oral Tablet Take by mouth . 0 Active Ezetimibe 10 MG Oral Tablet (Zetia)Indications:R ight internal carotid occlusion TAKE 1 TABLET BY MOUTH EVERY DAY 90 Tablet 3 3 Active Ferrous Sulfate 325 (65 Fe) MG Oral Tablet (Feosol) Take 1 Tablet by mouth every other [...] to knees 350 g 6 3 Active Cyanocobalamin 1000 MCG Oral Tablet (Cyanocobalamin) Take 1 Tablet by mouth in the morning. 100 Tablet 3 3 Active Cyanocobalamin 1000 MCG Oral Tablet (Cyanocobalamin) Take 1 Tablet by mouth in the morning. 100 Tablet 3 3 03/18/20 23 Discontinu ed(Patient preference /discontin uation) documented as of this encounter (statuses as of 03/24/2023) Active Problems Problem Noted Date Atherosclerosis of [place] coronary arter y without angina pectoris 09/10/2022 [...] as of this encounter (statuses as of 03/24/2023) Resolved Problems Problem Noted Date Resolved Date Atherosclerotic heart diseas e of [place] coronary artery with other forms of angina [...] as of this encounter (statuses as of 03/24/2023) Immunizations Name Administration Dates Next Due COVID-19 mRNA, LNP-s, No Pre serve, 2-Dose Series (GaBoom) 05/16/2021,09/23/2020,08/26/2020 Covid-19, Mrna, Lnp-s, Pf, B ivalent, 30 Mcg, IM, 12 yrs and above (Pfizer) 05/09/2022 Pneumococcal Conjugate Vacc, 13 Valent (Prevnar) 12/21/2017 Pneumococcal Polysaccharide PPV23 (Pneumovax) 01/31/2022,11/19/2016 Seasonal Influenza, PF, 6 mo ns & Above, IM , (Flulaval) 04/13/2020,04/15/2019,04/26/2018,04/08 Seasonal Influenza, Quadriva lent Hd (Fluzone Hd) 04/18/2022,04/10/2021 TDAP (age 10 and older)(Boostrix) 01/02/2016 Varicella [...] Sign Reading Time Taken Comments Blood Pressure 119/61 03/18/2023 2:37 PM EDT Pulse 51 03/18/2023 2:37 PM EDT Temperature 36.6 C (97.9 F) 03/18/2023 2:37 PM ED T Respiratory Rate 16 03/18/2023 2:37 PM EDT Oxygen Saturation - - Inhaled Oxygen Concentration - - Weight 99.3 kg (219 lb) 03/18/2023 2:37 PM EDT Height - - Body Mass Index 37.59 07/22/2022 10:44 AM EST documented in this encounter Progress Notes * Shiva Rich III, MD - 03/18/2023 3:04 PM EDT Subjective: Nenita Fleming is a 67 year old female. Chief Complaint Patient presents with Re-Check HPI: Follow up diabetes mellitus hypertension history of hemiplegia post stroke generally is feeling well swelling markedly improved tolerating meds had labs mild microalbumin on losartan B12 level was low normal range has not started B12 A1c 5.6 significant arthritis will be having surgery in April does limit activity has lost weight denies chest pain shortness a breath no bleeding urine or bowels PMH: Patient Active Problem List Diagnosis Code Essential hypertension with goal blood pressure less than 140/90 I10 Type 2 diabetes mellitus without complications ([facility]) E11.9 Hemiplegia and hemiparesis following cerebral infarction affecting left non- dominant side (HCC) I69.354 Paroxysmal atrial fibrillation (HCC) I48.0 Left renal mass N28.89 Right internal carotid occlusion I65.21 Morbid obesity due to excess calories ([facility]) E66.01 History of colon cancer Z85.038 History of basal cell cancer Z85.828 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 Applyto knees 350 g 6 Cyanocobalamin 1000 MCG Oral Tablet (Cyanocobalamin) Take 1 Tablet by mouth in the morning. 100 Tablet 3 oxygen IN GAS 3 LPM bled through [...] (5mg) ALL OTHER EVENINGS OR DIRECTED BY [facility]. 105 Tablet 3 Multi Vitamin Daily Oral Tablet Take by mouth . Ezetimibe 10 MG Oral Tablet (Zetia) TAKE 1 TABLET BY MOUTH EVERY DAY 90 Tablet 3 Ferrous Sulfate 325 (65 Fe) MG Oral Tablet (Feosol) Take 1 Tablet by mouth every other [...] mouth in the morning. 90 Tablet 1 No current facility-administered medications for this visit. Review of patient's allergies indicates: Allergen Reactions Bee Venom Edema Other Lisinopril Cough 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 Basal cell carcinoma (BCC) of [...] 01/26/2017 Morbid obesity due to excess calories ([facility]) 03/25/2017 SALVADOR on CPAP 04/19/2020 Paroxysmal atrial fibrillation ([facility]) 01/21/2017 PMB (postmenopausal bleeding) 08/19/2021 Right internal carotid occlusion 02/13/2017 Thickened endometrium 09/06/2021 Type 2 diabetes mellitus ([facility]) Type 2 diabetes mellitus without complications ([facility]) 01/21/2017 Past Surgical History: Procedure Laterality Date COLONOSCOPY, DIAGNOSTIC (RECTUM) 11/12/2016 adenocarcinoma/[facility] COLONOSCOPY, DIAGNOSTIC (RECTUM) 02/16/2018 serrated adenomatous polyp, repeat 1 yr/[facility] COLONOSCOPY, DIAGNOSTIC (RECTUM) 03/16/2019 benign polyps, repeat 2 yrs/[facility] COLONOSCOPY, DIAGNOSTIC (RECTUM) 04/11/2021 normal, repeat 3 yrs / [facility] DENTAL SURGERY PROCEDURE NEC Dental Surgery Procedure wisdom teeth PAYTON FLEX SIGMOID DIAGNOSITIC 11/20/2016 SIGMOIDOSCOPY FLEXIBLE DIAGNOSTIC performed by Declan West MD at ENDOSCOPY [facility] REMOVAL OF OVARY(S) Left REMOVAL OF OVARY(S) FOR TUMOR benign Objective: The patient is a 67 year old female BP 119/61 | Pulse 51 | Temp 36.6 C (97.9 F) | Resp 16 | Wt 99.3 kg (219 lb) | BMI 37.59 kg/m | BSA 2.12 m General: alert, healthy, and no distress Eye Exam: PERRLA, extraocular movements intact, conjunctiva are pink and non- injected, sclera clear Oropharynx: no exudate, no erythema, lips, buccal mucosa, and tongue normal, and mucous membranes are moist Heart: regular rate & rhythm, no murmur, and no gallops Lungs: lungs clear to auscultation Extremities: no edema, no clubbing, no cyanosis ASSESSMENT: I10 Essential hypertension with goal blood pressure less than 140/90 (primary encounter diagnosis) I69.354 Hemiplegia and hemiparesis following cerebral infarction affecting left non-dominant side (HCC) PLAN: Continue present meds refill B12 call if problems Follow up in 6 month(s). Shiva Rich III, MD documented in this encounter Plan of Treatment Upcoming Encounters Date Type Specialty Care Team Description 03/31/2023 Laboratory Laboratory [facility] [address] [place] [address] 04/01/2023 [facility] [address] [place] [address] 04/09/2023 Office Visit Hematology Oncology Efraín Leone MD [address] [place] [address] 04/13/2023 Imaging Radiology 04/15/2023 Office Visit Family Medicine Mable Torres PA-C [address] [place] [address] 04/21/2023 Office Visit Sleep Disorders Viktoriya White CRNP [address] [place] [address] 04/23/2023 Office Visit Orthopedics Forrest Davidson DO [address] [place] [address] 05/11/2023 Hospital Encounter Surgery Forrest Davidson DO [address] [place] [address] 05/11/2023 Surgery Surgery Forrest Davidson, DO [address] [place] [address] ROBOTIC ARTHROPLASTY KNEE TOTAL 05/21/2023 Office Visit Orthopedics Forrest Davidson, DO [address] [place] [address] 09/30/2023 Office Visit Family Medicine NanceShiva canseco III, MD [address] [place] [address], [place] [address] 11/11/2023 Office Visit Dermatology Kirsten Shah MD 02/25/2024 Imaging Radiology Scheduled Procedures Name Priority Associated Diagnoses Date/Ti il ROBOTIC ARTHROPLASTY KNEE TOTAL Knee osteoarthritis 05/11/2023 7:30 AM EDT COLONOSCOPY FLEXIBLE PROXIMAL DIAGNOSTIC Recall History of colonic polyps Health Maintenance Due Date Last Done Comments Depression Screening, Annual for Pts 12 and Over 06/24/2020 06/24/2019 DIABETES-FOOT EXAM 01/31/2023 01/31/2022, 0 12/31/2020, 06/24/2019, Additional history exists Influenza Vaccine (FLU shot) (#1) 2023 04/18/2022, 04/10/2021, 04/13/2020, Additional history exists HbA1c 08/20/2023 02/17/2023, 08/21, 02/03/2022, Additional history exists GFR 08/25/2023 08/25/2022, 01/09/2022, 05/06/2022, Additional history exists DIABETES-EYE EXAM 08/28/2023 08/28/2022, [...] Completed 05/09/2022, , 09/23/2020, Additional history exists GARDASIL-HPV IMMUNIZATION SERIES Aged [...] as of this encounter Visit Diagnoses Diagnosis Essential hypertension with goal blood pressure less than 140/90- Primary Hemiplegia and hemiparesis following cerebral infarction affecting left non- dominant side (HCC) Knee osteoarthritis Osteoarthrosis, unspecified whether generalized or localized, lower leg documented in this encounter Care Teams Weld Inspector Relationship Specialty Start Date End Date Shiva Rich III, MD [address] [place] [address] PCP - General Family Medicine 09/10/18 documented as of this encounter"
--- OUTSIDE RECORDS SUMMARY | 2023-07-14 14:46 | External Medical Summary ---
Author Name Unknown Address Unknown Organization K0G:LABORATORY [facility] [address] - [address] [place] [address] Laboratory Report Ordering Provider Test Date Status INDER KINCAID 03/31/2023 14:11:05 Final Standing order for pt/inr. < br/>Please draw pt/inr every 1 to 4 weeks as requested
Results to [facility]

Warfarin Therapy
INR: 2.0-3.0 conventional anticoagulation
INR: 2.5-3.5 high intensity anticoagulation Observation Date Value Abnormality Reference (Units ) Status PT 03/31/2023 14:11:05 31.4 Above high normal 11 .6-15.2 (seconds) Final INR 03/31/2023 14:11:05 3.0 Above high normal 0. 8-1.2 Final Performing Location LABORATORY [facility] [address] - [address] [place] [address]
--- OUTSIDE RECORDS SUMMARY | 2023-07-14 14:46 | External Medical Summary | Summary of Care ---
Author Name Unknown Organization [facility] Address [address] [facility] [place] [address] Phone [phone] Care Team Providers Care Housekeeper Home Name Role Phone Hilario ANDRADE MD, Shiva Kebede Primary Care Provider [phone] Encounter Details Date Type Department Care Team Description 04/13/2023 Patient Reported Data Patient Survey Ortho FORCE Allergies Active Allergy Reactions Severity Noted Date Comments Bee Venom Edema Other 01/10/2016 Lisinopril Cough 09/04/2016 documented as of this encounter (statuses as of 04/13/2023) Medications Medication Sig Dispensed Refills Start Date [...] to knees 350 g 6 03/18/2023 Active Cyanocobalamin 1000 MCG Oral Tablet (Cyanocobalamin) Take 1 Tablet by mouth in the morning. 100 Tablet 3 03/18/2023 Active Enoxaparin Sodium 100 MG/ML Injection Solution Prefilled Syringe (Lovenox)Indications: Paroxysmal atrial fibrillation (HCC),Recent cerebrovascular accident (CVA) Inject 100 mg under the skin in the morning and 100 mg before bedtime. As instructed by the [facility]. 10 mL 0 04/01/2023 Active documented as of this encounter (statuses as of 04/13/2023) Active Problems Problem Noted Date Atherosclerosis of [place] coronary arter y without angina pectoris 09/10/2022 [...] as of this encounter (statuses as of 04/13/2023) Resolved Problems Problem Noted Date Resolved Date Atherosclerotic heart diseas e of [place] coronary artery with other forms of angina [...] as of this encounter (statuses as of 04/13/2023) Immunizations Name Administration Dates Next Due COVID-19 [...] Encounters Date Type Specialty Care Team Description 04/13/2023 Imaging Radiology 04/15/2023 Office Visit Family Medicine Mable Torres PA-C [address] [facility] [place] [address] 04/16/2023 Laboratory Laboratory Wilfredo Gambino [address] [place] [address] 04/21/2023 Office Visit Sleep Disorders Viktoriya White CRNP [address] [place] [address] 04/23/2023 Office Visit Orthopedics Forrest Davidson, DO [address] [place] [address] 04/28/2023 [facility] [address] [place] [address] 05/11/2023 Hospital Encounter Surgery Forrest Davidson, DO [address] [place] [address] 05/11/2023 Surgery Surgery Forrest Davidson, DO [address] [place] [address] ROBOTIC ARTHROPLASTY KNEE TOTAL 05/12/2023 [facility] [address] [place] [address] 05/21/2023 Office Visit Orthopedics Forrest Davidson, DO [address] [place] [address] 09/30/2023 Office Visit Family Medicine [place] IIIShiva MD [address] [place] [address] 10/01/2023 Office Visit Hematology Oncology Efraín Leone MD [address] [place] [address] 11/11/2023 Office Visit Dermatology Kirsten Shah MD [...] 03/06/2022, Additional history exists GFR 03/31/2024 03/31/2023, 02/12/2022, 07/22/2022, Additional history exists COLONOSCOPY-EVERY 3 YRS [...] filedocumented as of this encounter Care Teams Housekeeper Home Relationship Specialty Start Date End Date Shiva Rich III, MD [address] [facility] [place] [address] PCP - General Family Medicine 09/10/18 documented as of this encounter
--- OUTSIDE RECORDS SUMMARY | 2023-07-14 14:46 | External Medical Summary ---
Author Name Unknown Address Unknown Organization K01:[facility] - [address] [place] [address] Laboratory Report Ordering Provider Test Date Status JOSHUA MARR 04/16/2023 09:27:36 Final Observation Date Value Abnormality Reference (Units ) Status IgG 04/16/2023 09:27:36 0243 391-8298 ( mg/dL) Final IgA 04/16/2023 09:27:36 87 70-400 (mg /dL) Final IgM 04/16/2023 09:27:36 62 40-230 (mg /dL) Final Performing Location [facility] - [address] [place] [address]
--- OUTSIDE RECORDS SUMMARY | 2023-07-14 14:46 | External Medical Summary ---
Author Name Unknown Address Unknown Organization K0G:LABORATORY [facility] [place] [address] - [address] [place] [address] Laboratory Report Ordering Provider Test Date Status JOSHUA MARR 03/31/2023 14:11:05 Final Observation Date Value Abnormality Reference (Units ) Status WBC, Total 03/31/2023 14:11:05 6.22 4.00-10.8 0 (K/uL) Final RBC 03/31/2023 14:11:05 3.42 3.85-5.15 (M/uL) Final Hemoglobin 03/31/2023 14:11:05 10.5 Below low normal 12 .0-15.3 (g/dL) Final HCT 03/31/2023 14:11:05 32.1 Below low normal 36. 0-45.2 (%) Final MCV 03/31/2023 14:11:05 93.9 81.5-97.5 (fL) Final MCH 03/31/2023 14:11:05 30.7 27.0-34.0 (pg) Final MCHC 03/31/2023 14:11:05 32.7 32.0-36.0 (g/dL) Final RDW 03/31/2023 14:11:05 14.9 11.5-15.5 (%) Final Platelets 03/31/2023 14:11:05 296 140-400 (K /uL) Final MPV 03/31/2023 14:11:05 10.1 6.6-11.1 ( fL) Final Performing Location LABORATORY [facility] [place] [address] - [address] [place] [address]
--- OUTSIDE RECORDS SUMMARY | 2023-07-14 14:46 | External Medical Summary | Summary of Care ---
Author Name Unknown Organization [facility] Address [address] [facility] [place] [address] Phone [phone] Care Team Providers Care Sales Recruiting Coordinator Name Role Phone Hilario ANDRADE MD, Shiva Kebede Primary Care Provider [phone] Reason for Visit * Reason Comments Dosage Adjustment Via Phone (anticoag Cl inic) Bridge Encounter Details Date Type Department Care Team Description 04/01/2023 Anticoagulation Pharmacy Call Center [address] [place] [address] [facility] [address] [facility] [place] [address] Paroxysmal atrial fibrillation (HCC)*; Recent cerebrovascular accident (CVA) Allergies Active Allergy Reactions Severity Noted Date Comments Bee Venom Edema Other 01/10/2016 Lisinopril Cough 09/04/2016 documented as of this encounter (statuses as of 04/01/2023) Medications Medication Sig Dispensed Refills Start Date [...] as of this encounter (statuses as of 04/01/2023) Active Problems Problem Noted Date Atherosclerosis of [place] coronary arter y without angina pectoris 09/10/2022 [...] as of this encounter (statuses as of 04/01/2023) Resolved Problems Problem Noted Date Resolved Date Atherosclerotic heart diseas e of [place] coronary artery with other forms of angina [...] as of this encounter (statuses as of 04/01/2023) Immunizations Name Administration Dates Next Due COVID-19 mRNA, LNP-s, No Pre serve, 2-Dose Series ([employer]) 05/16/2021,09/23/2020,08/26/2020 Covid-19, Mrna, Lnp-s, Pf, B ivalent, [...] this encounter Progress Notes * Heydi Frias RP - 04/01/2023 12:56 PM EDT Patient is having a total knee replacement on 05/11/23. Patient has history of stroke and requiresLovenox bridging. Patient used Lovenox before. See letters section for specific lovenox bridge instructions. Actual Body Weight 99.3 kg [place] Body Weight 54.7 kg Adjusted Body Weight 72.5 kg Labs Drawn on 08/25/22 - Scr = 0.8 mg/dL; CrCl (per [facility] using AdjBW) = 77 mL/min Creatinine clearance cannot be calculated (Patient's most recent lab result is older than the maximum 180 days allowed.) Hemoglobin Results: Lab Results Component Value Date/Time HGB - [facility] 10.5 (L) 03/31/2023 02:11 PM HGB - [facility] 11.9 (L) 01/13/2023 02:08 PM HGB - [facility] 11.2 (L) 10/06/2022 10:27 AM HGB - [facility] 13.4 05/04/2017 07:35 AM HGB - [facility] 13.5 04/23/2017 07:21 AM HGB - [facility] 14.5 09/17/2016 02:49 PM Platelets: Lab Results Component Value Date/Time PLATELET AUTO - [facility] 296 03/31/2023 02:11 PM PLATELET AUTO - [facility] 255 01/13/2023 02:08 PM PLATELET AUTO - [facility] 278 10/06/2022 10:27 AM PLATELET AUTO - [facility] 257 05/04/2017 07:35 AM PLATELET AUTO - [facility] 262 04/23/2017 07:21 AM PLATELET AUTO - [facility] 270 09/17/2016 02:49 PM Lovenox Dose: 100 mg every 12 hours Heydi Frias [facility] Clinical Pharmacist Medication Therapy Disease Management 04/01/2023, 12:56 PM * Heydi Frias RP - 04/01/2023 8:51 AM EDT Medication Therapy Disease Management - Anticoagulation Patient: Nenita Fleming | : 1955 Subjective Contacts Type Contact Phone/Fax 04/01/2023 01:06 PM EDT Phone (Outgoing) Nenita Fleming (Self) [phone] (M) Patient-Reported Symptoms: Patient Findings Positives: Upcoming invasive procedure (Total knee replacement 05/11 with overnight admission - lovenox bridge (see letters)) Negatives: Signs/symptoms of bleeding, Change in health, Missed doses, Extra doses, Change in medications, Change in diet/appetite, Bruising Comments: Pt aware lovenox rx being sent to pharmacy today and [facility] to call 1-2 weeks prior to review warfarin & lovenox dosing instructions. Objective Current Warfarin Dose As of 04/01/2023 Warfarin maintenance plan: 7.5 mg (5 mg x 1.5) every Fri; 5 mg (5 mg x 1) all other days INR Result As of 04/01/2023 INR goal: 2.0-3.0 INR used for dosin.0 (03/31/2023) Assessment & Plan Warfarin Plan As of 04/01/2023 Full warfarin instructions: 05/06 - 05/10: Hold for proc 05/11 Otherwise 7.5 mg every Fri; 5 mg all other days Next INR check: TBD based on hospital discharge post procedure Repeat PT/INR -- TBD post-procedure Weekly dose: not changed Additional Dosing Information: Description Ck's Gambino- pt prefers Thurs AMIODARONE started 04/28/22 Heydi Frias RPh Clinical Pharmacist 04/01/2023, 8:51 AM documented in this encounter Plan of Treatment Upcoming Encounters Date Type Specialty Care Team Description 04/02/2023 Office Visit Hematology Oncology Efraín Leone MD [address] [place] [address] 04/13/2023 Imaging Radiology 04/15/2023 Office Visit Family Medicine Mable Torres PA-C [address] [place] [address] 04/21/2023 Office Visit Sleep Disorders Viktoriya White CRNP [address] [place] [address] 04/23/2023 Office Visit Orthopedics Forrest Davidson, DO [address] [place] [address] 04/28/2023 [facility] [address] [place] [address] 05/11/2023 Hospital Encounter Surgery Forrest Davidson, DO [address] [place] [address] 05/11/2023 Surgery Surgery Forrest Davidson, DO [address] [place] [address] ROBOTIC ARTHROPLASTY KNEE TOTAL 05/12/2023 [facility] [address] 60 [facility] [place] [address] 05/21/2023 Office Visit Orthopedics Forrest Davidson, DO [address] [place] [address] 09/30/2023 Office Visit Family Medicine Hilario IIIShiva MD [address] [place] [address] 11/11/2023 Office Visit Dermatology Kirsten Shah MD [...] 02/03/2022, Additional history exists GFR 08/25/2023 08/25/2022, 09/2022, 05/06/2022, Additional history exists DIABETES-EYE EXAM 08/28/2023 [...] Paroxysmal atrial fibrillation (HCC)- Primary Atrial fibrillation Recent cerebrovascular accident (CVA) Knee osteoarthritis Osteoarthrosis, unspecified whether generalized or localized, lower leg documented in this encounter Care Teams Sales Recruiting Coordinator Relationship Specialty Start Date End Date Shiva Rich III, MD [address] [place] [id number] PCP - General Family Medicine 09/10/18 documented as of this encounter"
--- OUTSIDE RECORDS SUMMARY | 2023-07-14 14:46 | External Medical Summary | Summary of Care ---
Author Name Unknown Organization [facility] Address [address] [facility] [place] [address] Phone [phone] Care Team Providers Care Conference And Event Organiser Name Role Phone Hialrio ANDRADE MD, Shiva Kebede Primary Care Provider [phone] Reason for Visit * Reason Onset Date Comments Test Results Lab 04/03/2023 Encounter Details Date Type Department Care Team Description 04/03/2023 Telephone Hematology/Oncology [place] [address] [place] [address] Efraín Leone MD [address] [facility] [place] [address] Test Results Lab Allergies Active Allergy Reactions Severity Noted Date Comments Bee Venom Edema Other 01/10/2016 Lisinopril Cough 09/04/2016 documented as of this encounter (statuses as of 04/03/2023) Medications Medication Sig Dispensed Refills Start Date [...] mg before bedtime. As instructed by the [facility]. 10 mL 0 04/01/2023 Active documented as of this encounter (statuses as of 04/03/2023) Active Problems Problem Noted Date Atherosclerosis of [place] coronary arter y without angina pectoris 09/10/2022 [...] as of this encounter (statuses as of 04/03/2023) Resolved Problems Problem Noted Date Resolved Date Atherosclerotic heart diseas e of [place] coronary artery with other forms of angina [...] as of this encounter (statuses as of 04/03/2023) Immunizations Name Administration Dates Next Due COVID-19 [...] Telephone Encounter - Dena Weller LPN - 04/03/2023 8:25 AM EDT Notified patient per [employer] message, patient is active. Dr. Leone already ordered labs. ----- Message from Efraín Leone MD sent at 04/03/2023 6:36 AM EDT ----- Blood workup done on 03/31/2023: -normal kidney and the liver function test Overall mild anemia noted with a hemoglobin level of 10.5. I would like to repeat additional blood workup in about 2 weeks. ( ordered) Please let her know. documented in this encounter Plan of Treatment Upcoming Encounters Date Type Specialty Care Team Description 04/13/2023 Imaging Radiology 04/15/2023 Office Visit Family Medicine Mable Torres PA-C [address] [place] [address] 04/21/2023 Office Visit Sleep Disorders Viktoriya White CRNP [address] [place] [address] 04/23/2023 Office Visit Orthopedics Forrest Davidson DO [address] [place] [address] 04/28/2023 [facility] 60 [facility] [place] [address] 05/11/2023 Hospital Encounter Surgery Forrest Davidson DO [address] [place] [address] 05/11/2023 Surgery Surgery Forrest Davidson DO [address] [place] [address] ROBOTIC ARTHROPLASTY KNEE TOTAL 05/12/2023 [facility] Pharmacy [facility] 58 60 [facility] [place] [address] 05/21/2023 Office Visit Orthopedics Forrest Davidson, DO [address] [place] [address] 09/30/2023 Office Visit Family Medicine HilarioShiva canseco III, MD 200 [facility] [place] [address] 10/01/2023 Office Visit Hematology Oncology Efraín Leone MD [address] [facility] [place] [address] 11/11/2023 Office Visit Dermatology Kirsten Shah MD [...] filedocumented as of this encounter Care Teams Conference And Event Organiser Relationship Specialty Start Date End Date Shiva Rihc III, MD [address] [place] [address], [place] [address] PCP - General Family Medicine 09/10/18 documented as of this encounter
--- OUTSIDE RECORDS SUMMARY | 2023-07-14 14:46 | External Medical Summary | Summary of Care ---
Author Name Unknown Organization [facility] Address [address] [facility] [place] [address] Phone [phone] Care Team Providers Care District Recruiter Name Role Phone Hilario ANDRADE MD, Shiva Kebede Primary Care Provider [phone] Encounter Details Date Type Department Care Team Description 04/12/2023 Patient Reported Data Patient Survey Ortho FORCE Allergies Active Allergy Reactions Severity Noted Date Comments Bee Venom Edema Other 01/10/2016 Lisinopril Cough 09/04/2016 documented as of this encounter (statuses as of 04/12/2023) Medications Medication Sig Dispensed Refills Start Date [...] before bedtime. As instructed by the [facility]. 10 mL 0 04/01/2023 Active documented as of this encounter (statuses as of 04/12/2023) Active Problems Problem Noted Date Atherosclerosis of [place] coronary arter y without angina pectoris 09/10/2022 [...] as of this encounter (statuses as of 04/12/2023) Resolved Problems Problem Noted Date Resolved Date Atherosclerotic heart diseas e of [place] coronary artery with other forms of angina [...] as of this encounter (statuses as of 04/12/2023) Immunizations Name Administration Dates Next Due COVID-19 [...] Visit Family Medicine Mable Torres PA-C [address] [facility] [place] [address] 04/16/2023 Laboratory Laboratory Wilfredo Gambino [address] [place] [address] 04/21/2023 Office Visit Sleep Disorders Viktoriya White CRNP [address] [place] [address] 04/23/2023 Office Visit Orthopedics Forrest Davidson, DO [address] [place] [address] 04/28/2023 [facility] [address] 60 [place] [address] 05/11/2023 Hospital Encounter Surgery Forrest Davidson, DO [address] [place] [address] 05/11/2023 Surgery Surgery Forrest Davidson, DO [address] [place], [place] [address] ROBOTIC ARTHROPLASTY KNEE TOTAL 05/12/2023 [facility] [address] [place] [address] 05/21/2023 Office Visit Orthopedics Forrest Davidson, DO [address] [place] [address] 09/30/2023 Office Visit Family Medicine Bradford IIIShiva MD [address] [address] 10/01/2023 Office Visit Hematology Oncology Efraín Leone MD [address] [place] [address] 11/11/2023 Office Visit Dermatology Kirsten Shah MD [...] filedocumented as of this encounter Care Teams District Recruiter Relationship Specialty Start Date End Date Shiva Rich III, MD [address] [facility] [place] [place] [address] PCP - General Family Medicine 09/10/18 documented as of this encounter
--- OUTSIDE RECORDS SUMMARY | 2023-07-14 14:46 | External Medical Summary | Summary of Care ---
Author Name Unknown Organization [facility] Address [address] [facility] [place] [address] Phone [phone] Care Team Providers Care Executive Director Global Brand Marketing Name Role Phone Hilario ANDRADE MD, Shiva Kebede Primary Care Provider [phone] Reason for Visit * Reason Comments Physical-Exam Encounter Details Date Type Department Care Team Description 04/15/2023 Office Visit Family Practice [facility] Martha Arnegard [address] [facility] [place] [address] Mable Torres PA-C [address] [facility] [place] [address] Osteoarthritis of right knee, unspecified osteoarthritis type*; Pre-op examination; Type 2 diabetes mellitus without complication, unspecified whether senior living insulin use (HCC); Essential hypertension with goal blood pressure less than 140/90; Hemiplegia and hemiparesis following cerebral infarction affecting left non-dominant side (HCC) Allergies Active Allergy Reactions Severity Noted Date Comments Bee Venom Edema Other 01/10/2016 Lisinopril Cough 09/04/2016 documented as of this encounter (statuses as of 04/15/2023) Medications Medication Sig Dispensed Refills Start Date [...] (5mg) ALL OTHER EVENINGS OR DIRECTED BY [facility]. 105 Tablet 3 07/18/2022 Active [...] mg before bedtime. As instructed by the [facility]. 10 mL 0 04/01/2023 Active documented as of this encounter (statuses as of 04/15/2023) Active Problems Problem Noted Date Atherosclerosis of tangirnaq coronary arter y without angina pectoris 09/10/2022 [...] as of this encounter (statuses as of 04/15/2023) Resolved Problems Problem Noted Date Resolved Date [...] as of this encounter (statuses as of 04/15/2023) Immunizations Name Administration Dates Next Due COVID-19 mRNA, LNP-s, No Pre serve, 2-Dose Series ([employer]) 05/16/2021,09/23/2020,08/26/2020 Covid-19, Mrna, Lnp-s, Pf, B ivalent, [...] Sign Reading Time Taken Comments Blood Pressure 124/64 04/15/2023 10:34 AM EDT Pulse 60 04/15/2023 10:34 AM EDT Temperature 36.1 C (97 F) 04/15/2023 10:34 AM EDT Respiratory Rate 16 04/15/2023 10:34 AM EDT Oxygen Saturation 96% 04/15/2023 10:34 AM EDT Inhaled Oxygen Concentration - - Weight 99.8 kg (220 lb 0.6 oz) 04/15/2023 10:34 AM EDT Height 162.6 cm (5' 4") 04/15/2023 10:34 AM EDT Body Mass Index 37.77 04/15/2023 10:34 AM EDT documented in this encounter Patient Instructions * Patient Instructions* Mable Torres PA-C - 04/15/2023 1:36 PM EDT BMI (Body Mass Index) is the number obtained by dividing a person's weight in kilograms by his or her height in meters squared. BMI is used in determining obesity. BMI is not used to determine a person's actual percentage of body fat, but it is a good tool to red lead burner weight in terms of what is healthy and unhealthy. It is used to identify adults at increased risk for developing weight related medical problems. Estimated body mass index is 37.77 kg/m as calculated from the following: Height as of this encounter: 1.626 m (5' 4"). Weight as of this encounter: 99.8 kg (220 lb 0.6 oz). Obesity - BMI 35 kg/m2 to 39.9 kg/mg - Obese individuals are at a risk for developing * Heart disease * Stroke * Diabetes * High Blood Pressure * High Cholesterol * GERD (acid reflux) * Sleep Apnea * Osteoarthritis * Fatty Liver Disease * Certain Types of Cancers * Gout * Gall Bladder Disease - Weight loss has been shown to decrease weight related medical problems. - Those with a BMI 35 kg/m2 or higher are almost ten times more likely to develop diabetes in theirlifetimes than those with a normal BMI. - A 12-week weight management text message program is also available. Go to [employer] and seethe message under '[employer]' for more information and enrollment. Patient is Instructed to: Diet: * Limit total fat intake to no more than 40 grams per day (low fat diet). * Increase fruits and vegetables to 5 servings per day, combined. * Limited starches (breads, pasta, rice, potatoes, corn, cereals) to 4 servings per day. Avoid Calorie Containing Drinks: * No fruit juices, regular sodas or sweetened drinks. * Water is preferred - 64 ounces per day unless advised of a fluid restriction. * Diet sodas and drinks permitted. Keep Honest, Accurate Food logs: * www.[employer].Fantrotter * www.RABT * If you bite it - write it! Weigh Yourself Weekly: * Morning is best. * Try to do this outside your home. * Have a friend/spouse remind you to weigh yourself, accountability to others helps. Perform 30 minutes of physical activity daily: * Can do all at once or 5 minutes 6 times per day * 8, 000-10,000 steps per day using a pedometer * Make it fun! documented in this encounter Progress Notes * Mable Torres PA-C - 04/15/2023 10:55 AM EDT Subjective: Nenita Fleming is a 67 year old female. Presents at the request of Dr Davidson for medical clearance for right knee replacement. PHM: Patient Active Problem List Diagnosis Code Essential hypertension with goal blood pressure less than 140/90 I10 Type 2 diabetes mellitus without complications (HCC) E11.9 Hemiplegia and hemiparesis following cerebral infarction affecting left non- dominant side (HCC)I69.354 Paroxysmal atrial fibrillation (HCC) I48.0 Left renal [...] endometrium R93.89 Endometrial polyp N84.0 Heart failure ([facility]) I50.9 Body mass index (BMI) of 40.0 to 44.9 in adult ([facility]) Z68.41 Atherosclerosis of tangirnaq coronary artery without angina pectoris I25.10 Current [...] the morning and 1 Tablet before bedtime. Amiodarone HCl 200 [...] Release 24 Hour (toPROL XL) Take 0.5 Tablets(12.5 mg) by mouth in the morning and [...] (5mg) ALL OTHER EVENINGS OR DIRECTED BY [facility]. 105 Tablet 3 Multi Vitamin [...] Release Particles (Cymbalta) TAKE 2 CAPSULES BY MOUTHEVERY MORNING 180 Capsule 2 Myrbetriq 50 MG Oral Tablet Extended Release 24 Hour (Mirabegron ER) Take 1 Tablet by mouth in the morning. 90 Tablet 3 Losartan Potassium 100 MG Oral Tablet (Cozaar) Take 1 Tablet by mouth in the morning. 90 Tablet1 Cyanocobalamin 1000 MCG Oral Tablet (Cyanocobalamin) Take 1 Tablet by mouth in the morning. 100Tablet 3 Enoxaparin Sodium 100 MG/ML Injection Solution Prefilled Syringe (Lovenox) Inject 100 mg under the skin in the morning and 100 mg before bedtime. As instructed by the [facility]. 10 mL 0 Diclofenac Sodium 1 % External Gel (Voltaren) Apply topically to affected area 4 times a day. Apply to knees (Patient not taking: Reported on 04/15/2023) 350 g 6 No current facility-administered medications for this visit. 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 [...] cerebral infarction affecting left non- dominant side (HCC)01/21/2017 History of basal cell cancer 01/24/2019 History [...] Procedure Laterality Date COLONOSCOPY, DIAGNOSTIC (RECTUM) 11/12/2016 adenocarcinoma/[facility] COLONOSCOPY, DIAGNOSTIC (RECTUM) 02/16/2018 serrated adenomatous polyp, repeat 1 yr/[facility] COLONOSCOPY, DIAGNOSTIC (RECTUM) 03/16/2019 benign polyps, repeat 2 yrs/[facility] COLONOSCOPY, DIAGNOSTIC (RECTUM) 04/11/2021 normal, repeat 3 yrs / [facility] DENTAL SURGERY PROCEDURE NEC Dental Surgery Procedure wisdom teeth [place] FLEX SIGMOID DIAGNOSITIC 11/20/2016 SIGMOIDOSCOPY FLEXIBLE DIAGNOSTIC performed by Declan West MD at ENDOSCOPY [facility] REMOVAL OF OVARY(S) Left REMOVAL OF OVARY(S) FOR TUMOR benign Review of patient's allergies indicates: Allergen Reactions Bee Venom Edema Other Lisinopril Cough Family History Problem Relation Age of Onset Hypertension Mother Thyroid Disorder Father accident No Past Hx Sister No Past Hx Brother Heart Disorder Grandfather (Maternal) DC Breast Cancer No significant family history Family Status Relation Status Mo Alive Fa Sis (Not Specified) Bro (Not Specified) MGFA (Not Specified) No history (Not Specified) Social History Tobacco Use Smoking status: Never Smokeless tobacco: Never Substance Use Topics Alcohol use: Yes Comment: moderate scotch is drink of choice - none since 12/2016 Vaping/E-Cigarette Use Vaping/E-Cigarette Use Never User Passive Exposure No Counseling Given? No Vaping/E-Cigarette Substances Vaping/E-Cigarette Devices Review of Systems: General: No weakness, No fatigue, No fevers, sweats, or chills, and + change in weight explained Head: No significant headache and No recent significant head injury Eyes: No recent significant change in vision, No eye pain, redness, discharge, or excessive tearing, No diplopia, and No h/o cataracts or glaucoma Ears: No recent change in hearing, No tinnitus or vertigo, No ear pain, and No ear discharge Nose: No h/o frequent colds or sinusitis, No nasal stuffiness, No h/o hay fever, and No significantepistaxis Throat/Oropharynx: No teeth or gum problems, No bleeding gums, No tongue complaints, No sore throat, and No recent change in voice or hoarseness Neck: No complaint of lumps in neck, No swollen glands, No recent swelling in thyroid area, and No significant pain in neck Breast: No new breast lumps, No severe breast pain, No nipple discharge, No recent change in shape/contor, and Patient does perform monthly self breast exam Respiratory: No cough, sputum, or hemoptysis, No wheezing, No shortness of breath, and No recent change in breathing Cardiac: No chest pain, No shortness of breath, No dyspnea on exertion, No orthopnea, No paroxysmalnocturnal dyspnea, No edema, No palpitations, and No syncope Gastrointestinal: No dysphagia, No significant heartburn, No significant change in appetite, No nausea, vomiting, diarrhea, or constipation, No hematemesis, No blood in stools or black tarry stools, No abdominal bloating or early satiety, and No abdominal pain Urinary: No urinary frequency, No dysuria, No hematuria, No urinary urgency, No polyuria, No nocturia, No incontinence, No hesitancy, and No sensation of incomplete voiding Musculoskeletal: No backache, No muscle pains or cramps, No joint swelling, + joint pain, location:right knee, and + arthritis knees Hematologic: No anemia, No history of transfusion, and + easy bruising on coumadin Neurologic: No fainting or blackouts, No seizures, No paralysis or focal weakness, No numbness or tingling, No tremors, and No significant problems with memory Skin: No edema, No rash, and No itching Objective: BP 124/64 | Pulse 60 | Temp 36.1 C (97 F) (Tympanic) | Resp 16 | Ht 1.626 m (5' 4") | Wt 99.8 kg (220 lb 0.6 oz) | SpO2 96% | BMI 37.77 kg/m | BSA 2.12 m Physical Exam: General: alert, healthy, no distress, well nourished, well developed, comfortable, and cooperative Head: Normocephalic, No masses, lesions, tenderness or abnormalities Eye Exam: PERRLA, extraocular movements intact, conjunctiva are pink and non- injected, sclera clear Ears: External ears normal, Canals clear, TM's Normal Nose: no mucosal erythema, no mucosal edema, no purulent discharge Oropharynx: no exudate, no erythema, lips, buccal mucosa, and tongue normal, and mucous membranes are moist Neck: supple, no adenopathy, no bruits, thyroid normal size, non-tender, without nodularity Heart: regular rate & rhythm, no murmur, and no gallops Lungs: chest symmetric with normal AP diameter, no chest deformities noted, normal respiratory rateand rhythm, no chest wall tenderness, diaphragmatic excursion normal, lungs clear to auscultation Abdomen: abdomen soft, non-tender, normal bowel sounds, no masses or organomegaly, no rebound or guarding, no CVA tenderness, and no bladder distention identified Back: back symmetric, no curvature, no costovertebral angle tenderness, range of motion is normal, no skin lesions, erythema or scars, no tenderness to percussion or palpation Extremities: less than 2 second capillary refill, no joint deformities, effusion, or inflammation, no clubbing, no cyanosis, bruising on left upper extremity Neuro Exam: alert & oriented x 3 with fluent speech, no focal motor/sensory deficits Breasts: Inspection negative, No nipple retraction or dimpling, No nipple discharge or bleeding, Noaxillary or supraclavicular adenopathy, Normal to palpation without dominant masses Skin: skin color, texture, turgor are normal, no rashes or significant lesions, bruising noted on left upper extremity ASSESSMENT: Diagnosis for procedure: OA of right knee Preoperative Examination PLAN: Patient is medically cleared. Perioperative recommendations regarding medications and treatment include medications as directed. This assessment was forwarded to Lock. Mable Torres PA-C Patient counseling on weight management given. documented in this encounter Nursing Notes * Deisi Patricia LPN - 04/15/2023 10:32 AM EDT Patient presents today for a pre op physical. She has been showing low in hemoglobin and she wantedto ask some questions about it. documented in this encounter Plan of Treatment Upcoming Encounters Date Type Specialty Care Team Description 04/16/2023 Laboratory Laboratory Wilfredo Gambino [address] [place] [address] 04/21/2023 Office Visit Sleep Disorders Viktoriya White CRNP [address] [place] [address] 04/23/2023 Office Visit Orthopedics Forrest Davidson DO [address] [place] [address] 04/28/[address] [facility] [address] [facility] [place] [address] 05/11/2023 Hospital Encounter Surgery Forrest Davidson, DO [address] [place] [address] 05/11/2023 Surgery Surgery Forrest Davidson, DO [address] [place] [address] ROBOTIC ARTHROPLASTY KNEE TOTAL 05/12/[address] [address] [facility] [place] [address] 05/21/2023 Office Visit Orthopedics Forrest Davidson, DO [address] [place] [address] 09/30/2023 Office Visit Family Medicine Hilario IIIShiva MD [address] [place] [address] 10/01/2023 Office Visit Hematology Oncology Efraín Leone MD [address] [place] [address] 11/11/2023 Office Visit Dermatology Kirsten Shah MD 02/25/2024 Imaging Radiology Scheduled Procedures Name Priority Associated Diagnoses Date/Ti sc ROBOTIC ARTHROPLASTY KNEE TOTAL Knee osteoarthritis 05/11/2023 [...] as of this encounter Visit Diagnoses Diagnosis Osteoarthritis of right knee, unspecified osteoarthritis type- Primary Pre-op examination Preoperative examination, unspecified Type 2 diabetes mellitus without complication, unspecified whether intermediate accountant insulin use (HCC) Essential hypertension with goal blood pressure less than 140/90 Hemiplegia and hemiparesis following cerebral infarction affecting left non- dominant side (HCC) Knee osteoarthritis Osteoarthrosis, unspecified whether generalized or localized, lower leg documented in this encounter Care Teams Executive Director Global Brand Marketing Relationship Specialty Start Date End Date Shiva Rich III, MD [address] [place] [address], [place] [address] PCP - General Family Medicine 09/10/18 documented as of this encounter
--- OUTSIDE RECORDS SUMMARY | 2023-07-14 14:46 | External Medical Summary ---
Author Name Unknown Address Unknown Organization K01:[facility] [place] [address] [facility] [place] [address] Laboratory Report Ordering Provider Test Date Status JOSHUA MARR 03/31/2023 14:11:05 Final Observation Date Value Abnormality Reference (Units ) Status BUN 03/31/2023 14:11:05 19 6-20 (mg/dL) Final Creatinine 03/31/2023 14:11:05 1.0 0.5-1.0 (mg/dL) Final Glomerular filtration rate/1.73 sq M.predicted [Volume Rate/Area] in Serum, Plasma or Blood by Creatinine-based formula (CKD-EPI) 03/31/2023 14:11:05 62 >=60 (mL/min) Final eGFR is calculated based on the CKD-EPI 2020 equation SODIUM 03/31/2023 14:11:05 140 135-146 (m mol/L) Final Potassium 03/31/2023 14:11:05 4.0 3.5-5.1 (m mol/L) Final Cl 03/31/2023 14:11:05 98 98-107 (mm ol/L) Final CO2 03/31/2023 14:11:05 22 22-32 (mmo l/L) Final Anion gap 03/31/2023 14:11:05 20 Above high normal 7- 15 (mmol/L) Final Glucose 03/31/2023 14:11:05 161 Above high normal 70 -120 (mg/dL) Final Albumin 03/31/2023 14:11:05 4.4 3.8-5.0 (g /dL) Final AST (Aspartate aminotransferase) 03/31/2023 14:11:05 34 10-35 (U/L) Fin al Alk Phos 03/31/2023 14:11:05 85 35-130 (U/ L) Final Bilirubin, Total 03/31/2023 14:11:05 1.0 <=1 .2 (mg/dL) Final Calcium 03/31/2023 14:11:05 9.7 8.4-10.2 ( mg/dL) Final Protein 03/31/2023 14:11:05 6.8 6.0-8.3 (g /dL) Final ALT (Alanine aminotransferase) 03/31/2023 14:11:05 42 Above high normal 10-35 (U/L) Final Performing Location [facility] [place] [facility] [address]. [facility] [address]
--- OUTSIDE RECORDS SUMMARY | 2023-07-14 14:46 | External Medical Summary | Summary of Care ---
Author Name Unknown Organization [facility] Address [address] [facility] [place] [address] Phone [phone] Care Team Providers Care Admissions Gate Attendant Name Role Phone Hilario ANDRADE MD, Shiva Kebede Primary Care Provider [phone] Reason for Visit * Reason Onset Date Comments Follow Up 6m Medication Administration 04/02/2023 Flu an d/or Pneumo Inj Encounter Details Date Type Department Care Team Description 04/02/2023 [facility] [address] [facility] [place] [address] Efraín Leone MD [address] [facility] [place] [address] Normocytic anemia*; Monoclonal paraproteinemia; Nutritional anemia; Need for prophylactic vaccination and inoculation against influenza Allergies Active Allergy Reactions Severity Noted Date Comments Bee Venom Edema Other 01/10/2016 Lisinopril Cough 09/04/2016 documented as of this encounter (statuses as of 04/02/2023) Medications Medication Sig Dispensed Refills Start Date [...] (5mg) ALL OTHER EVENINGS OR DIRECTED BY [facility]. 105 Tablet 3 07/18/2022 Active Multi [...] mg before bedtime. As instructed by the [facility]. 10 mL 0 04/01/2023 Active documented as of this encounter (statuses as of 04/02/2023) Active Problems Problem Noted Date Atherosclerosis of [place] coronary arter y without angina pectoris 09/10/2022 [...] as of this encounter (statuses as of 04/02/2023) Resolved Problems Problem Noted Date Resolved Date Atherosclerotic heart diseas e of [place] coronary artery with other forms of angina [...] as of this encounter (statuses as of 04/02/2023) Immunizations Name Administration Dates Next Due COVID-19 mRNA, LNP-s, No Pre serve, 2-Dose Series (3CI) 05/16/2021,09/23/2020,08/26/2020 Covid-19, Mrna, Lnp-s, Pf, B ivalent, 30 Mcg, IM, 12 yrs and above (3CI) 05/09/2022 Pneumococcal Conjugate Vacc, 13 Valent (Prevnar) [...] Sign Reading Time Taken Comments Blood Pressure 150/80 04/02/2023 11:29 AM EDT Pulse 57 04/02/2023 11:29 AM EDT Temperature 36.5 C (97.7 F) 04/02/2023 11:29 AM E DT Respiratory Rate 16 04/02/2023 11:29 AM EDT Oxygen Saturation 93% 04/02/2023 11:29 AM EDT Inhaled Oxygen Concentration - - Weight 99.8 kg (220 lb) 04/02/2023 11:29 AM EDT Height - - Body Mass Index 37.76 07/22/2022 10:44 AM EST documented in this encounter Progress Notes * Reny Doran CMA - 04/02/2023 11:44 AM EDT PRE - ADMINISTRATION DOCUMENTATION Are you experiencing any cold symptoms or fever? No Have you had Guillain-Munster Syndrome (an illness that causes paralysis) within the last 6 weeks? No Have you had the flu shot in the past? YES Have you ever had a reaction to the flu shot? No Reny Doran CMA, 04/02/2023 11:45 AM Immunization Administration Documentation Time Out Procedure Performed: Yes Patient Identified (Ask Name/Date of ): Yes Does the patient have a fever greater than 101 degrees today? No Patient allergic to latex? 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 [...] (HCC) Type 2 diabetes mellitus without complications ([facility]) 01/21/2017 Past Surgical History: Procedure Laterality Date COLONOSCOPY, DIAGNOSTIC (RECTUM) 11/12/2016 adenocarcinoma/[facility] COLONOSCOPY, DIAGNOSTIC (RECTUM) 02/16/2018 serrated adenomatous polyp, repeat 1 yr/[facility] COLONOSCOPY, DIAGNOSTIC (RECTUM) 03/16/2019 benign polyps, repeat 2 yrs/[facility] COLONOSCOPY, DIAGNOSTIC (RECTUM) 04/11/2021 normal, repeat 3 yrs / [facility] DENTAL SURGERY PROCEDURE NEC Dental Surgery Procedure wisdom teeth PAYTON FLEX SIGMOID DIAGNOSITIC 11/20/2016 SIGMOIDOSCOPY FLEXIBLE DIAGNOSTIC performed by Declan West MD at ENDOSCOPY [facility] REMOVAL OF OVARY(S) Left REMOVAL [...] [facility]. 105 Tablet 3 Multi Vitamin Daily [...] mouth in the morning. 100 Tablet 3 No current facility-administered medications for this visit. Family History Problem Relation Age of Onset Hypertension Mother Thyroid Disorder Father accident No Past Hx Sister No Past Hx Brother Heart Disorder Grandfather (Maternal) MS Breast Cancer No significant family history Social [...] Stability: Not on file On Exam: BP 150/80 (BP Site: Left Arm, BP Position: Sitting, BP Cuff Size: Large) | Pulse 57 | Temp 36.5 C(97.7 F) (Tympanic) | Resp 16 | Wt 99.8 kg (220 lb) | SpO2 93% | BMI 37.76 kg/m | BSA 2.12 m Constitutional: Patient is alert, cooperative and oriented [...] --> 17, free lambda light chain 14, Firestone/Lambda ratio 1.28 - Ig, IgA 104, IgM 72. -Vitamin B12 --> 274 ( 02/17/2023) Blood workup done on 12/24/2022: -WBC 5900, H&H of 11.9/36.5, Platelet count 997293. MCV 89.7 -Ferritin level -> 36 -Serum iron 49, TIBC 355, iron saturation 14%. Blood workup done on 03/31/2023: WBC 6100 H&H of 10.5/32 Platelet count 296,000 -BUN/Creat: 19/1.0, normal LFT. -Serum iron: 88, TIBC 365, iron saturation 24% -Ferritin level --> 90. -Vitamin B12 --> 274 (02/17/2023) IMAGING: Pelvic ultrasound (August 2021) - 1. [...] worsening anemia, latest hemoglobin is around 10.5. No clear evidence of iron deficiency, B12 level was close to the lowerlimit, she has started taking oral Vitamin B12 supplementation . Normal kidney and liver function test noted She is going for right knee replacement surgery on 05/11/2023 I would like to repeat another blood workup in about 2 weeks time. -CBCD, Ferritin, iron profile, Vitamin B12, reticulocyte count, LDH, myeloma blood workup. I am planning to see her back in the clinic in about [address] Efraín Leone Hem/Onc (This note was [...] Nursing Notes * Reny Doran CMA - 04/02/2023 11:30 AM EDT Patient identifed by name and birthdate Do you have any concerns about pain management for today's visit? No Living Will or Advance Directive for Health Care as noted on the problem list. [facility] is a way you can talk to your provider on line through e-mail. Would you like to sign up? I can activate it for you? ALREADY ACTIVE Filed Vitals: 04/02/23 1129 BP: 150/80 Pulse: 57 Resp: 16 Temp: 36.5 C (97.7 F) TempSrc: Tympanic SpO2: 93% Weight: 99.8 kg (220 lb) Patient was instructed to not get up [...] Visit Family Medicine Mable Torres PA-C [address] [place] [address] 04/21/2023 Office Visit Sleep Disorders Viktoriya White CRNP [address] [place] [address] 04/23/2023 Office Visit Orthopedics Forrest Davidson, DO [address] [place] [address] 04/28/2023 [facility] [address] [facility] [place] [address] 05/11/2023 Hospital Encounter Surgery Forrest Davidson, DO [address] [place] [address] 05/11/2023 Surgery Surgery Forrest Davidson, DO [address] [place] [address] ROBOTIC ARTHROPLASTY KNEE TOTAL 05/12/2023 [facility] [address] [facility] [place] [address] 05/21/2023 Office Visit Orthopedics Forrest Davidson, DO [address] [place] [address] 09/30/2023 Office Visit Family Medicine [place] IIIShiva MD 200 [place] [address] 10/01/2023 Office Visit Hematology Oncology Efraín Leone MD [address] [facility] [place] [address] 11/11/2023 Office Visit Dermatology Kirsten Shah MD 02/25/2024 Imaging Radiology Scheduled Orders Name Type Priority Associated Diagnoses Orde r Schedule CBC WITH WBC DIFFERENTIAL Lab STAT Normocytic anemia Monoclonal paraproteinemia Nutritional anemia Expected: 04/16/2023, Expires: 04/02/2024 RETICULOCYTE PANEL Lab Routine Normocytic anemia Monoclonal paraproteinemia Nutritional anemia Expected: 04/16/2023, Expires: 04/02/2024 IRON SCREEN, INCLUDING TIBC Lab Routine Normocytic anemia Monoclonal paraproteinemia Nutritional anemia Expected: 04/16/2023, Expires: 04/02/2024 FERRITIN Lab Routine Normocytic anemia Monoclonal paraproteinemia Nutritional anemia Expected: 04/16/2023, Expires: 04/02/2024 VITAMIN B12 Lab Routine Normocytic anemia Monoclonal paraproteinemia Nutritional anemia Expected: 04/16/2023, Expires: 04/02/2024 FOLIC ACID Lab Routine Normocytic anemia Monoclonal paraproteinemia Nutritional anemia Expected: 04/16/2023, Expires: 04/02/2024 LD Lab Routine Normocytic anemia Monoclonal paraproteinemia Nutritional anemia Expected: 04/16/2023, Expires: 04/02/2024 SERUM FREE LIGHT CHAINS Lab Routine Normocytic anemia Monoclonal paraproteinemia Nutritional anemia Expected: 04/16/2023, Expires: 04/02/2024 SERUM PROTEIN ELECTROPHORESIS REFLEX PROFILE Lab Routine Normocytic anemia Monoclonal paraproteinemia Nutritional anemia Expected: 04/16/2023, Expires: 04/02/2024 IMMUNOGLOBULIN QUANTITATIVE Lab Routine Normocytic anemia Monoclonal paraproteinemia Nutritional anemia Expected: 04/16/2023, Expires: 04/02/2024 Scheduled Procedures Name Priority Associated Diagnoses Date/Ti al ROBOTIC ARTHROPLASTY KNEE TOTAL Knee osteoarthritis 05/11/2023 [...] Not on filedocumented as of this encounter Results * (ABNORMAL) COMPREHENSIVE METABOLIC PANEL (03/31/2023 2:11 PM EDT) BUN 19 6 - 20 mg/dL 04/02/2023 2:37 PM EDT [facility] Creatinine 1.0 0.5 - 1.0 mg/dL 04/02/2023 2:37 PM EDT [facility] Estimated Glomerular Filtration Rate 62 >=60 mL/min 04/02/2023 2:37 PM EDT [facility] Comment:eGFR is calculated b ased on the CKD-EPI 2020 equation Sodium 140 135 - 146 mmol/L 04/02/2023 2:37 PM EDT [facility] Potassium 4.0 3.5 - 5.1 mmol/L 04/02/2023 2:37 PM EDT [facility] Chloride 98 98 - 107 mmol/L 04/02/2023 2:37 PM EDT [facility] CO2 22 22 - 32 mmol/L 04/02/2023 2:37 PM EDT [facility] Anion Gap 20(H) 7 - 15 mmol/L 04/02/2023 2:37 PM EDT [facility] Glucose 161(H) 70 - 120 mg/dL 04/02/2023 2:37 PM EDT [facility] Albumin 4.4 3.8 - 5.0 g/dL 04/02/2023 2:37 PM EDT [facility] AST 34 10 - 35 U/L 04/02/2023 2:37 PM EDT [facility] Alkaline Phosphatase 85 35 - 130 U/L 04/02/2023 2:37 PM EDT [facility] Bilirubin, Total 1.0 <=1.2 mg/dL 04/02/2023 2:37 PM EDT [facility] Calcium 9.7 8.4 - 10.2 mg/dL 04/02/2023 2:37 PM EDT [facility] Protein 6.8 6.0 - 8.3 g/dL 04/02/2023 2:37 PM EDT [facility] ALT 42(H) 10 - 35 U/L 04/02/2023 2:37 PM EDT [facility] Blood Venous blood specimen / Unknown Venipuncture / Unknown 03/31/2023 2:11 PM EDT 03/31/2023 2:11 PM EDT Efraín Leone MD LAB BLOOD ORDERABLES [facility] [address] [place] [address] documented in this encounter Visit Diagnoses Diagnosis Normocytic anemia- Primary Anemia, unspecified Monoclonal paraproteinemia Nutritional anemia Unspecified deficiency anemia Need for prophylactic vaccination and inoculation against influenza Knee osteoarthritis Osteoarthrosis, unspecified whether generalized or localized, lower leg documented in this encounter Care Teams Admissions Gate Attendant Relationship Specialty Start Date End Date Shiva Rich III, MD [address] [place] [address] PCP - General Family Medicine 09/10/18 documented as of this encounter"
--- OUTSIDE RECORDS SUMMARY | 2023-07-14 14:46 | External Medical Summary ---
Author Name Unknown Address Unknown Organization [id number][facility] [address] [place] [address] Laboratory Report Ordering Provider Test Date Status JOSHUA MARR 03/31/2023 14:11:05 Final Observation Date Value Abnormality Reference (Units ) Status SYNC LEUKOCYTES IN BLOOD BY AUTOMATED COUNT 03/31/2023 14:11:05 6.22 4.00-10.80 (K/uL) Final Segs 03/31/2023 14:11:05 66.9 40.0-75.0 (%) Final Lymphs % 03/31/2023 14:11:05 21.2 18.0-42.0 (%) Final Monos 03/31/2023 14:11:05 9.6 1.0-11.0 (%) Final Eosinophils 03/31/2023 14:11:05 2.1 0.0-6.0 (%) Final Basos 03/31/2023 14:11:05 0.2 0.0-2.0 (%) Final Absolute Segs 03/31/2023 14:11:05 4.16 1.80-7.70 (K/uL) Final Lymphs, absolute 03/31/2023 14:11:05 1.32 1.00-4.80 (K/ul) Final Monos, Abs 03/31/2023 14:11:05 0.60 0.00-1.10 (K/uL) Final Eos, Abs 03/31/2023 14:11:05 0.13 0.00-0.70 (K/uL) Final Basos, Abs 03/31/2023 14:11:05 0.01 0.00-0.20 (K/uL) Final Performing Location LABORATORY [facility] [place] 57-1 0 - [address] [place] [address]
--- OUTSIDE RECORDS SUMMARY | 2023-07-14 14:46 | External Medical Summary ---
Author Name Unknown Address Unknown Organization [id number] [address] [place] [address] Laboratory Report Ordering Provider Test Date Status JOSHUA MARR 04/16/2023 09:27:36 Final Observation Date Value Abnormality Reference (Units ) Status SYNC LEUKOCYTES IN BLOOD BY AUTOMATED COUNT 04/16/2023 09:27:36 6.67 4.00-10.80 (K/uL) Final Segs 04/16/2023 09:27:36 69.3 40.0-75.0 (%) Final Lymphs % 04/16/2023 09:27:36 19.8 18.0-42.0 (%) Final Monos 04/16/2023 09:27:36 9.1 1.0-11.0 (%) Final Eosinophils 04/16/2023 09:27:36 1.5 0.0-6.0 (%) Final Basos 04/16/2023 09:27:36 0.3 0.0-2.0 (%) Final Absolute Segs 04/16/2023 09:27:36 4.62 1.80-7.70 (K/uL) Final Lymphs, absolute 04/16/2023 09:27:36 1.32 1.00-4.80 (K/ul) Final Monos, Abs 04/16/2023 09:27:36 0.61 0.00-1.10 (K/uL) Final Eos, Abs 04/16/2023 09:27:36 0.10 0.00-0.70 (K/uL) Final Basos, Abs 04/16/2023 09:27:36 0.02 0.00-0.20 (K/uL) Final Performing Location LABORATORY [facility] [place] 57-[address] 0 - [address] [place] [address]
--- OUTSIDE RECORDS SUMMARY | 2023-07-14 14:46 | External Medical Summary ---
Author Name Unknown Address Unknown Organization [id number]:[facility] [address] [place] [address] Laboratory Report Ordering Provider Test Date Status JOSHUA MARR 04/16/2023 09:27:36 Final Observation Date Value Abnormality Reference (Units ) Status Iron 04/16/2023 09:27:36 80 33-151 (ug /dL) Final Iron-binding capacity 04/16/2023 09:27:36 363 250-425 (ug/dL) Final Transferrin Sat % 04/16/2023 09:27:36 22 15 -55 (%) Final Performing Location [facility] [address] [place] [address]
--- OUTSIDE RECORDS SUMMARY | 2023-07-14 14:46 | External Medical Summary | Summary of Care ---
Author Name Unknown Organization [facility] Address [address] [facility] [place] [address] Phone [phone] Care Team Providers Care Receptionist Nurse Name Role Phone Hilario ANDRADE MD, Shiva Kebede Primary Care Provider [phone] Reason for Visit * Reason Comments Outpatient Testing Encounter Details Date Type Department Care Team Description 03/31/2023 [facility] [place] [id number] [facility] 132 [place] [address] Paroxysmal atrial fibrillation (HCC); Normocytic anemia Allergies Active Allergy Reactions Severity Noted Date Comments Bee Venom Edema Other 01/10/2016 Lisinopril Cough 09/04/2016 documented as of this encounter (statuses as of 03/31/2023) Medications Medication Sig Dispensed Refills Start Date [...] (5mg) ALL OTHER EVENINGS OR DIRECTED BY [facility]. 105 Tablet 3 07/18/2022 Active [...] the morning. 100 Tablet 3 03/18/2023 Active documented as of this encounter (statuses as of 03/31/2023) Active Problems Problem Noted Date Atherosclerosis of [place] coronary arter y without angina pectoris 09/10/2022 [...] as of this encounter (statuses as of 03/31/2023) Resolved Problems Problem Noted Date Resolved Date Atherosclerotic heart diseas e of [place] coronary artery with other forms of angina [...] as of this encounter (statuses as of 03/31/2023) Immunizations Name Administration Dates Next Due COVID-19 [...] Encounters Date Type Specialty Care Team Description 04/01/2023 [facility] 58 60 [facility] [place] [address] 04/02/2023 Office Visit Hematology Oncology Efraín Leone MD 200 [facility] [place] [address] 04/13/2023 Imaging Radiology 04/15/2023 Office Visit Family Medicine Mable Torres PA-C 200 [facility] [place] [address] 04/21/2023 Office Visit Sleep Disorders Viktoriya White CRNP [address] [place] [address] 04/23/2023 Office Visit Orthopedics Forrest Davidson, DO [address] [place] [address] 05/11/2023 Hospital Encounter Surgery Forrest Davidson, DO [address] [place] [address] 05/11/2023 Surgery Surgery Forrest Davidson, DO [address] [place] [address] ROBOTIC ARTHROPLASTY KNEE TOTAL 05/21/2023 Office Visit Orthopedics Forrest Davidson, DO [address] [place] [address] 09/30/2023 Office Visit Family Medicine Shiva Rich III, MD [address] [facility] [place] [address] 11/11/2023 Office Visit Dermatology Kirsten Shah MD 02/25/2024 Imaging Radiology Pending Results Name Type Priority Associated Diagnoses Date /Time FERRITIN Lab STAT Normocytic anemia 03/31/2023 2:11 PM EDT IRON SCREEN, INCLUDING TIBC Lab STAT Normocytic anemia 03/31/2023 2:11 PM EDT Scheduled Procedures Name Priority Associated [...] Date/Time Associated Diagnosis Comments DIFFERENTIAL, AUTOMATED STAT 03/31/2023 2:11 PM EDT Normocytic anemia CBC WITH WBC DIFFERENTIAL STAT 03/31/2023 2:11 PM EDT Normocytic anemia PT INR Routine 03/31/2023 2:11 PM EDT Paroxysmal atrial fibrillation (HCC) CBC STAT 03/31/2023 2:11 PM EDT Normocytic anemia documented in this encounter Results * DIFFERENTIAL, AUTOMATED (03/31/2023 2:11 PM EDT) WBC 6.22 4.00 - 10.80 K/uL 03/31/2023 2:55 PM EDT LABORATORY [place]-10 Neutrophils % 66.9 40.0 - 75.0 % 03/31/2023 2:55 PM EDT LABORATORY [place] 57-10 Lymphocytes % 21.2 18.0 - 42.0 % 03/31/2023 2:55 PM EDT LABORATORY [place] 57[place]10 Monocytes % 9.6 1.0 - 11.0 % 03/31/2023 2:55 PM EDT LABORATORY [place] [address]10 Eosinophils % 2.1 0.0 - 6.0 % 03/31/2023 2:55 PM EDT LABORATORY [place] 57[place]10 Basophils % 0.2 0.0 - 2.0 % 03/31/2023 2:55 PM EDT LABORATORY [place] 57[place]10 Absolute Neutrophils 4.16 1.80 - 7.70 K/uL 03/31/2023 2:55 PM EDT LABORATORY [place] 57-10 Absolute Lymphocytes 1.32 1.00 - 4.80 K/ul 03/31/2023 2:55 PM EDT LABORATORY [place] 57-10 Absolute Monocytes 0.60 0.00 - 1.10 K/uL 03/31/2023 2:55 PM EDT LABORATORY [place] 57-10 Absolute Eosinophils 0.13 0.00 - 0.70 K/uL 03/31/2023 2:55 PM EDT LABORATORY [place] 57-10 Absolute Basophils 0.01 0.00 - 0.20 K/uL 03/31/2023 2:55 PM EDT LABORATORY [place] 57-10 Blood Venous blood specimen / Unknown Venipuncture / Unknown 03/31/2023 2:11 PM EDT 03/31/2023 2:11 PM EDT Efraín Leone MD LAB BLOOD ORDERABLES LABORATORY [address] [address] * (ABNORMAL) CBC (03/31/2023 2:11 PM EDT) WBC 6.22 4.00 - 10.80 K/uL 03/31/2023 2:55 PM EDT LABORATORY [place] 57-10 RBC 3.42 3.85 - 5.15 M/uL 03/31/2023 2:55 PM EDT LABORATORY [place] 57-10 HGB 10.5(L) 12.0 - 15.3 g/dL 03/31/2023 2:55 PM EDT LABORATORY [place] 57-10 HCT 32.1(L) 36.0 - 45.2 % 03/31/2023 2:55 PM EDT LABORATORY [place] 57-10 MCV 93.9 81.5 - 97.5 fL 03/31/2023 2:55 PM EDT LABORATORY [place] 57-10 MCH 30.7 27.0 - 34.0 pg 03/31/2023 2:55 PM EDT LABORATORY [place] 57-10 MCHC 32.7 32.0 - 36.0 g/dL 03/31/2023 2:55 PM EDT LABORATORY [place]10 RDW 14.9 11.5 - 15.5 % 03/31/2023 2:55 PM EDT LABORATORY [place] 57-10 PLT 296 140 - 400 K/uL 03/31/2023 2:55 PM EDT LAB[facility]ATORY [place] [facility]10 MPV 10.1 6.6 - 11.1 fL 03/31/2023 2:55 PM EDT LAB[facility]ATORY [place] [facility]10 Blood Venous blood specimen / Unknown Venipuncture / Unknown 03/31/2023 2:11 PM EDT 03/31/2023 2:11 PM EDT Efraín Leone MD LAB BLOOD ORDERABLES LABORATORY [place] 57[address] [place] [address] * (ABNORMAL) PT INR (03/31/2023 2:11 PM EDT) [facility] Prothrombin Time 31.4(H) 11.6 - 15.2 seconds 03/31/2023 3:08 PM EDT LAB[facility]ATORY [place]10 INR 3.0(H) 0.8 - 1.2 03/31/2023 3:08 PM EDT LAB[facility]ATORY [place] 57-10 Blood Venous blood specimen / Unknown Venipuncture / Unknown 03/31/2023 2:11 PM EDT 03/31/2023 2:11 PM EDT Narrative LABORATORY [place] 57-10 - 03/31/2023 3:08 PM EDT Warfarin Therapy INR: 2.0-3.0 conventional anticoagulation INR: 2.5-3.5 high intensity anticoagulation [facility] LAB BLOOD ORDERABLES LABORATORY [place] [address] [place] [address] documented in this encounter Visit Diagnoses Diagnosis Paroxysmal atrial fibrillation (HCC) Atrial fibrillation Normocytic anemia Anemia, unspecified Knee osteoarthritis Osteoarthrosis, unspecified whether generalized or localized, lower leg documented in this encounter Care Teams Receptionist Nurse Relationship Specialty Start Date End Date Hilario ANDRADE, Shiva Kebede MD [address] [place] [id number] PCP - General Family Medicine 09/10/18 documented as of this encounter
--- OUTSIDE RECORDS SUMMARY | 2023-07-14 14:47 | External Medical Summary | Summary of Care ---
Author Name Unknown Organization [facility] Address [address] [facility] [place] [address] Phone [phone] Care Team Providers Care Tractor Sweeper Operator Name Role Phone Hilario ANDRADE MD, Shiva Kebede Primary Care Provider [phone] Reason for Visit * Reason Comments Dosage Adjustment Via Phone (anticoag Cl inic) Encounter Details Date Type Department Care Team Description 02/18/2023 Anticoagulation Pharmacy Call Center [phone] [place] [address] [facility] [address] [facility] [place] [address] Paroxysmal atrial fibrillation (HCC)* Allergies Active Allergy Reactions Severity Noted Date Comments Bee Venom Edema Other 01/10/2016 Lisinopril Cough 09/04/2016 documented as of this encounter (statuses as of 02/18/2023) Medications Medication Sig Dispensed Refills Start Date [...] [facility]. 105 Tablet 3 07/18/2022 Active Multi Vitamin Daily Oral Tablet Take by mouth . 0 Active Ezetimibe 10 MG Oral Tablet (Zetia)Indications:Ri ght internal carotid occlusion TAKE 1 TABLET BY MOUTH EVERY DAY 90 Tablet 3 09/13/2022 Active Ferrous Sulfate 325 (65 Fe) MG Oral Tablet (Feosol) Take 1 Tablet by mouth every other day. 0 Active Losartan Potassium 100 MG Oral Tablet (Cozaar) TAKE 1 TABLET BY MOUTH EVERY DAY IN THE MORNING 90 Tablet 1 11/04/2022 Active Furosemide 40 MG Oral Tablet (Lasix) [...] the morning. 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 Basal cell carcinoma (BCC) of helix of l eft ear 02/23/2019 History of basal cell cancer 01/24/2019 BCC (basal cell carcinoma), scalp/neck 0 11/04/2018 History of colon cancer 06/24/2018 Morbid obesity due to excess calories Right internal carotid occlusion 017 Left renal mass 01/26/2017 Type 2 diabetes mellitus without complic ations 01/21/2017 Hemiplegia and hemiparesis f ollowing cerebral infarction affecting left non-dominant side 01/21/2017 Paroxysmal atrial fibrillation 7 Essential hypertension with goal blood p ressure less than 140/90 09/02/2016 documented as of this encounter (statuses as of 02/18/2023) Resolved Problems Problem Noted Date Resolved Date Atherosclerotic heart diseas e of [place] coronary artery with other forms of angina pectoris 01/31/2022 01/31/2022 Visit for wound check 03/09/2019 04/10/2020 Body mass index (BMI) of 45.0 to 49.9 in adult 1 06/05/2022 Overview: Per Obesity protocol #1 Recent cerebrovascular accident (CVA) 02/13/2017 12/23/2018 Body mass index (BMI) of 40.0 to 44.9 in adult 0 01/21/2017 03/25/2017 Overview: ICD-10 update of inactive term documented as of this encounter (statuses as of 02/18/2023) Immunizations Name Administration Dates Next Due COVID-19 mRNA, LNP-s, No Pre serve, 2-Dose Series (eTukTuk) 05/16/2021,09/23/2020,08/26/2020 Covid-19, Mrna, Lnp-s, Pf, B ivalent, 30 Mcg, IM, 12 yrs and above (Pfizer) 05/09/2022 Pneumococcal Conjugate Vacc, 13 Valent (Prevnar) 12/21/2017 Pneumococcal Polysaccharide PPV23 (Pneumovax) 01/31/2022,11/19/2016 Seasonal Influenza, Quadriva lent Hd (Fluzone Hd) 04/18/2022,04/10/2021 Seasonal Influenza, Quadriva lent, No Preserve, 6 Mons & Above, IM 04/13/2020,04/15/2019,04/26/2018,04/08 TDAP (age 10 and older)(Boostrix) 01/02/2016 Varicella [...] Progress Notes * Nohelia Cortes RPh - 02/18/2023 9:53 AM EDT Agree with plan. Nohelia Cortes Rph, Pharm.D. Clinical Pharmacist [facility] [phone] 02/18/2023,9:53 AM * Lotus Isbell, PHARM Student - 02/18/2023 8:54 AM EDT Medication Therapy Disease Management - Anticoagulation Patient: Nenita Fleming | : 1955 Subjective Contacts Type Contact Phone/Fax 02/18/2023 10:30 AM EDT Phone (Outgoing) Nenita Fleming (Self) [phone] (M) Patient-Reported Symptoms: Patient Findings Positives: Missed doses (Patient may have missed a dose two weeks ago.) Negatives: Signs/symptoms of bleeding, Change in health, Upcoming invasive procedure, Extra doses, Change in medications, Change in diet/appetite, Bruising Objective Current Warfarin Dose As of 02/18/2023 Warfarin maintenance plan: 7.5 mg (5 mg x 1.5) every Fri; 5 mg (5 mg x 1) all other days INR Result As of 02/18/2023 INR goal: 2.0-3.0 INR used for dosin.9 (02/17/2023) Assessment & Plan Warfarin Plan As of 02/18/2023 Full warfarin instructions: 7.5 mg every Fri; 5 mg all other days No change documented: Lotus Isbell, PHARM Student Next INR check: 03/31/2023 Repeat PT/INR in 6 week(s) Weekly dose: not changed Additional Dosing Information: Description Ck's Gambino- pt prefers Thurs AMIODARONE started 04/28/22 Lotus Isbell, PHARM Student Clinical Pharmacist 02/18/2023, 8:54 AM documented in this encounter Plan of Treatment Upcoming Encounters Date Type Specialty Care Team Description 02/23/2023 Imaging Radiology 03/18/2023 Office Visit Family Medicine Hilario IIIShiva MD [address] [facility] [place] [address] 04/09/2023 Office Visit Hematology Oncology Efraín Leone MD [address] [place] [address] 04/21/2023 Office Visit Sleep Disorders Viktoriya White CRNP [address] [place] [address] 11/11/2023 Office Visit Dermatology Kirsten Shah MD Scheduled Procedures Name Priority Associated Diagnoses Date/Ti me ROBOTIC ARTHROPLASTY KNEE TOTAL Knee osteoarthritis COLONOSCOPY FLEXIBLE PROXIMA L DIAGNOSTIC Recall History of colonic polyps Health Maintenance Due Date Last Done Comments Depression Screening, Annual for Pts 12 and Over 06/24/2020 06/24/2019 DIABETES-FOOT EXAM 01/31/2023 01/31/2022, 0 12/31/2020, 06/24/2019, Additional history exists Influenza Vaccine (FLU shot) (#1) 2023 04/18/2022, 04/10/2021, 04/13/2020, Additional history exists Mammogram 06/06/2023 06/06/2022, 02/17, 02/21/2022, Additional history exists HbA1c 08/20/2023 02/17/2023, 08/21, 02/03/2022, Additional history exists GFR 08/25/2023 08/25/2022, 09/2022, 05/06/2022, Additional history exists DIABETES-EYE EXAM 08/28/2023 08/28/2022, , 08/17/2020, Additional history exists Albumin/Creatinine Ratio 02/18/2024 02/17/2023, 01/17 B-12 02/18/2024 02/17/2023, 09/18, 02/03/2022, Additional history exists COLONOSCOPY-EVERY 3 YRS AGES [...] Primary Atrial fibrillation documented in this encounter Care Teams Tractor Sweeper Operator Relationship Specialty Start Date End Date Shiva Rich III, MD [address] [place] [address] PCP - General Family Medicine 09/10/18 documented as of this encounter"
--- OUTSIDE RECORDS SUMMARY | 2023-07-14 14:47 | External Medical Summary | Summary of Care ---
Author Name Unknown Organization [facility] Address [address] [facility] [place] [address] Phone [phone] Care Team Providers Care Paint Stock Clerk Name Role Phone Hilario ANDRADE MD, Shiva Kebede Primary Care Provider [phone] Encounter Details Date Type Department Care Team Description 03/24/2023 Patient Reported Data Patient Survey Ortho OBERD [...] Active Problems Problem Noted Date Atherosclerosis of lime coronary arter y without angina pectoris 09/10/2022 [...] Resolved Date Atherosclerotic heart diseas e of lime coronary artery with other forms of angina [...] mRNA, LNP-s, No Pre serve, 2-Dose Series (Nefsis) 05/16/2021,09/23/2020,08/26/2020 Covid-19, Mrna, Lnp-s, Pf, B ivalent, [...] Specialty Care Team Description 03/31/2023 Laboratory Laboratory Wilfredo Gambino [address] [facility] [place] [address] 04/01/2023 [facility] [address] [facility] [place] [address] 04/09/2023 Office Visit Hematology Oncology Efraín Leone MD [address] [facility], [place] [address] 04/13/2023 Imaging Radiology 04/15/2023 Office Visit Family Medicine Mable Torres PA-C [address] [facility] [place], [place] [address] 04/21/2023 Office Visit Sleep Disorders Viktoriya White CRNP [address] [place] [address] 04/23/2023 Office Visit Orthopedics Forrest Davidson, DO [address] [place], [place] [address] 05/11/2023 Hospital Encounter Surgery Forrest Davidson, DO [address] [place], [place] [address] 05/11/2023 Surgery Surgery Forrest Davidson, DO [address] [place] [address] ROBOTIC ARTHROPLASTY KNEE TOTAL 05/21/2023 Office Visit Orthopedics Forrest Davidson, DO [address] [place] [address] 09/30/2023 Office Visit Family Medicine Shiva Rich III, MD [address] [facility] [place], [place] [address] 11/11/2023 Office Visit Dermatology Kirsten Shah MD [...] filedocumented as of this encounter Care Teams Paint Stock Clerk Relationship Specialty Start Date End Date Shiva Rich III, MD [address] [place] [id number] PCP - General Family Medicine 09/10/18 documented as of this encounter
--- OUTSIDE RECORDS SUMMARY | 2023-07-14 14:47 | External Medical Summary | Summary of Care ---
Author Name Unknown Organization [facility] Address [address] [facility] [place] [address] Phone [phone] Care Team Providers Care Early Years Teacher Name Role Phone Hilario ANDRADE MD, Shiva Kebede Primary Care Provider [phone] Reason for Visit * Reason Onset Date Comments Preop Pt Assessment 02/24/2023 Encounter Details Date Type Department Care Team Description 02/24/2023 Telephone Orthopaedics, Heydi Breen [address] [place] [address] [place] [address] Balta Hyde PA-C [address] [place] [phone] Preop Pt Assessment Allergies Active Allergy Reactions Severity Noted Date Comments Bee Venom Edema Other 01/10/2016 Lisinopril Cough 09/04/2016 documented as of this encounter (statuses as of 02/24/2023) Medications Medication Sig Dispensed Refills Start Date [...] (5mg) ALL OTHER EVENINGS OR DIRECTED BY [facility]. 105 Tablet 3 07/18/2022 [...] the morning. 90 Tablet 3 02/09/2023 Active Cyanocobalamin 1000 MCG Oral Tablet (Cyanocobalamin) Take 1 Tablet by mouth in the morning. 100 Tablet 3 02/18/2023 Active documented as of this encounter (statuses as of 02/24/2023) Active Problems Problem Noted Date Atherosclerosis of [place] coronary arter y without angina pectoris 09/10/2022 [...] as of this encounter (statuses as of 02/24/2023) Resolved Problems Problem Noted Date Resolved Date [...] as of this encounter (statuses as of 02/24/2023) Immunizations Name Administration Dates Next Due COVID-19 [...] Encounters Date Type Specialty Care Team Description 03/18/2023 Office Visit Family Medicine Hilario III, Shiva Kebede MD [address] [facility] [place] [address] 03/31/2023 Laboratory Laboratory GambinoWilfredo villalpando Jerson [address] [facility] [place] [address] 04/01/2023 [facility] 58 60 [facility] [place] [address] 04/09/2023 Office Visit Hematology Oncology Efraín Leone MD [address] [facility] [place] [address] 04/13/2023 Imaging Radiology 04/15/2023 Office Visit Family Medicine Mable Torres PA-C [address] [facility] [place] [address] 04/21/2023 Office Visit Sleep Disorders Viktoriya White CRNP [address] [place], [place] [address] 04/23/2023 Office Visit Orthopedics Forrest Davidson, [address] [place] [address] 05/11/2023 Hospital Encounter Surgery Forrest Davidson, DO [address] [place] [address] 05/11/2023 Surgery Surgery Forrest Davidson, DO [address] [place] [address] ROBOTIC ARTHROPLASTY KNEE TOTAL 05/21/2023 Office Visit Orthopedics Forrest Davidosn, DO [address] [place] [address] 11/11/2023 Office Visit Dermatology Kirsten Shah MD 02/25/2024 Imaging Radiology Scheduled Orders Name Type Priority Associated Diagnoses Orde r Schedule EKG COMPLETE (TRACING AND INTERP) EKG Routine Preop testing Expected: 03/27/2023, Expires: 03/27/2024 XR CHEST 2 VIEWS Medical Imaging Routine Preop testing Ordered: 02/24/2023 URINALYSIS, REFLEX TO MICROSCOPIC Lab Routine Preop testing Expected: 03/27/2023, Expires: 02/25/2024 PT INR Lab Routine Preop testing Expected: 03/27/2023, Expires: 02/25/2024 APTT Lab Routine Preop testing Expected: 03/27/2023, Expires: 02/25/2024 STAPH AUREUS PCR Lab Routine Preop testing Expected: 03/27/2023, Expires: 02/25/2024 HEMOGLOBIN A1C Lab Routine Preop testing Expected: 03/27/2023, Expires: 02/25/2024 TYPE AND SCREEN Lab Routine Preop testing Expected: 03/27/2023, Expires: 03/27/2024 COMPREHENSIVE METABOLIC PANEL Lab Routine Preop testing Expected: 03/27/2023, Expires: 02/25/2024 ABO/RH Lab Routine Preop testing Expected: 03/27/2023, Expires: 03/27/2024 CBC WITH WBC DIFFERENTIAL AND ANEMIA REFLEX WORKUP Lab Routine Preop testing Expected: 03/27/2023, Expires: 02/25/2024 HEPATITIS C ANTIBODY SCREEN WITH PROGRESSION TO HEPATITIS C RNA QUANTITATIVE Lab Routine Preop testing Expected: 03/27/2023, Expires: 02/25/2024 Scheduled Procedures Name Priority Associated Diagnoses Date/Ti wa ROBOTIC ARTHROPLASTY KNEE TOTAL Knee osteoarthritis 05/11/2023 7:30 AM EDT COLONOSCOPY FLEXIBLE PROXIMAL DIAGNOSTIC Recall History of colonic polyps Health Maintenance Due Date Last Done Comments Depression Screening, Annual for Pts 12 and Over 06/24/2020 06/24/2019 DIABETES-FOOT EXAM 01/31/2023 01/31/2022, 0 12/31/2020, 06/24/2019, Additional history exists Influenza Vaccine (FLU shot) (#1) 2023 04/18/2022, 04/10/2021, 04/13/2020, Additional history exists HbA1c 08/20/2023 02/17/2023, 02/2 08/2022, 02/03/2022, Additional history exists GFR 08/25/2023 08/25/2022, 01/0 09/2022, 05/06/2022, Additional history exists DIABETES-EYE EXAM [...] of this encounter Visit Diagnoses Diagnosis Preop testing- Primary Preoperative examination, unspecified Knee osteoarthritis Osteoarthrosis, unspecified whether generalized or localized, lower leg documented in this encounter Care Teams Early Years Teacher Relationship Specialty Start Date End Date Shiva Rich III, MD [address] [place] [address] [place] [address] PCP - General Family Medicine 09/10/18 documented as of this encounter
--- OUTSIDE RECORDS SUMMARY | 2023-07-14 14:47 | External Medical Summary | Summary of Care ---
Author Name Unknown Organization [facility] Address [address] [facility] [place] [address] Phone [phone] Care Team Providers Care Clay Miller Name Role Phone Hilario ANDRADE MD, Shiva Kebede Primary Care Provider [phone] Reason for Visit * Reason Comments NEW PATIENT B/L knees- discuss T KA, xrays in Epic, has tried and failed injections, * Evaluate & Treat - Unlimited Visits (Within 30 days (routine)) - Closed Specialty Diagnoses / Procedures Referred By Andrea cochran Referred To Contact Orthopaedic Surgery / Orthopedics Diagnoses Primary osteoarthritis of both knees Rommel Snyder MD [address] [place] [address] Referral ID Status Reason Start Date Expiration Date V isits Requested Visits Authorized [id number] Closed Specialty Services Required 02/19/[phone] Encounter Details Date Type Department Care Team Description 05/29/2022 Office Visit Orthopaedics [facility] [address] [place] [address] Forrest Davidson DO [address] [place] [address] Primary osteoarthritis of both knees*; Chronic pain of right knee; Ambulatory dysfunction Allergies Active Allergy Reactions Severity Noted Date Comments Bee Venom Edema Other 01/10/2016 Lisinopril Cough 09/04/2016 documented as of this encounter (statuses as of 02/24/2023) Medications Medication Sig Dispensed Refills Start Date End Date Status oxygen IN GAS 3 LPM bled through CPAP 14 cwp 1 Each 0 04/10/20 Active Aspirin EC 81 MG Oral Tablet Delayed Release Take by mouth 1 Tablet in the morning. 0 10/30/19 Active Magnesium Chloride 64 MG Oral Tablet Delayed Release (Mag-64) Take 1 Tablet by mouth in the morning and 1 Tablet before bedtime. 0 04/29/20 Active Amiodarone HCl 200 MG Oral Tablet (Cordarone) Take by mouth 1 Tablet in the morning. 34 Tablet 11 05/09/20 22 Active Solifenacin Succinate 5 MG Oral Tablet (VESIcare) Take by mouth 1 Tablet in the morning. 30 Tablet 12 05/13/20 Active metFORMIN HCl 500 MG Oral Tablet (Glucophage) TAKE 2 TABLETS BY MOUTH TWO TIMES DAILY WITH MORNING AND EVENING MEALS 360 Tablet 3 05/20/20 Active Warfarin Sodium 5 MG Oral Tablet (Coumadin)Indicati ons:Recent cerebrovascular accident (CVA),Paroxysmal atrial fibrillation (HCC) TAKE 1 TABLET BY MOUTH EVERY EVENING EXCEPT 2 TABLETS ON THURSDAYS---or as instructed by [facility]. 180 Tablet 1 08/26/19 22 022 Discontinued Ezetimibe 10 MG Oral Tablet (Zetia)Indications :Right internal carotid occlusion TAKE 1 TABLET BY MOUTH EVERY DAY 90 Tablet 3 09/13/19 22 023 Discontinued DULoxetine HCl 60 MG Oral Capsule Delayed Release Particles (Cymbalta) Take by mouth 2 Capsules in the morning. 180 Capsule 3 12/10/19 22 023 Discontinued Myrbetriq 50 MG Oral Tablet Extended Release 24 Hour (Mirabegron ER) Take by mouth 1 Tablet in the morning. 90 Tablet 3 02/13/20 22 023 Discontinued(R efill) Atorvastatin Calcium 80 MG Oral Tablet (Lipitor) TAKE 1 TABLET BY MOUTH EVERY DAY 90 Tablet 0 04/16/20 22 022 Discontinued Furosemide 40 MG Oral Tablet (Lasix) Take by mouth 40 mg daily . 0 04/29/20 22 022 Discontinued(R efill) Potassium Chloride ER 10 MEQ Oral Capsule Extended Release Take by mouth 10 Milliequivalent daily . 0 04/29/20 22 022 Discontinued(M edication List Clean Up) Losartan Potassium 100 MG Oral Tablet (Cozaar) TAKE 1 TABLET BY MOUTH EVERY MORNING 30 Tablet 3 05/14/20 22 023 Discontinued Metoprolol Succinate ER 25 MG Oral Tablet Extended Release 24 Hour (toPROL XL)Indications:Par oxysmal atrial fibrillation (HCC) Take 0.5 Tablets (12.5 mg) by mouth in the morning and 0.5 Tablets (12.5 mg) before bedtime. 30 Tablet 5 05/27/20 22 022 Discontinued(R efill) documented as of this encounter (statuses as of 02/24/2023) Active Problems Problem Noted Date Atherosclerosis of [place] coronary arter y without angina pectoris 09/10/2022 [...] Resolved Date Atherosclerotic heart diseas e of [place] coronary artery with other forms of angina [...] mRNA, LNP-s, No Pre serve, 2-Dose Series (to-BBB) 05/16/2021,09/23/2020,08/26/2020 Covid-19, Mrna, Lnp-s, Pf, B ivalent, 30 Mcg, IM, 12 yrs and above (to-BBB) 05/09/2022 Pneumococcal Conjugate Vacc, 13 Valent (Prevnar) [...] Pressure - - Pulse - - Temperature - - Respiratory Rate - - Oxygen Saturation - - Inhaled Oxygen Concentration - - Weight 112.4 kg (247 lb 12.8 oz) 05/29/2022 2:08 PM EST Height 162.6 cm (5' 4") 05/29/2022 2:08 PM EST Body Mass Index 42.53 05/29/2022 2:08 PM EST documented in this encounter Progress Notes * Forrest Davidson, DO - 05/29/2022 2:32 PM EST ORTHOPAEDIC SURGERY - Clinic Note SUBJECTIVE: Nenita Fleming is a 66 year old female. Chief Complaint Patient presents with NEW PATIENT B/L knees- discuss TKA, xrays in Epic, has tried and failed injections, HPI: 66-year-old female dennis presents today for evaluation of bilateral knee pain, right greaterthan left. She reports symptoms for many years which have become progressively worse. She localizespain to the medial aspect and has described swelling and stiffness. She has been treated over the years with activity modification as well as oral medications. She denies any bracing or recent physical therapy. Her last steroid injection was in February of 2022 with limited benefit. She has received multiple steroid as well as gel injections in the past with varying degrees of relief. Her symptoms are worsened with prolonged walking as well as stairs. She has describes start-up pain. She is currently using a cane for assistance over the past 6 weeks. She was recently diagnosed with atrial fibrillation but has been on Coumadin for internal carotid artery occlusion. Review of Systems: Constitutional ROS: No fevers, sweats, or chills Cardiovascular ROS: No chest pain Gastrointestinal ROS: No abdominal pain Musculoskeletal/Extremities ROS: Pain, stiffness, swelling Neurologic ROS: No numbness or tingling Review of patient's allergies indicates: Allergen Reactions Bee Venom Edema Other Lisinopril Cough Current Outpatient Medications Medication Sig Dispense Refill oxygen IN GAS 3 LPM bled through CPAP 14 cwp 1 Each 0 Warfarin Sodium 5 MG Oral Tablet (Coumadin) TAKE 1 TABLET BY MOUTH EVERY EVENING EXCEPT 2 TABLETS ON THURSDAYS---or as instructed by [facility]. 180 Tablet 1 Ezetimibe 10 MG Oral Tablet (Zetia) TAKE 1 TABLET BY MOUTH EVERY DAY 90 Tablet 3 Aspirin EC 81 MG Oral Tablet Delayed Release Take by mouth 1 Tablet in the morning. DULoxetine HCl 60 MG Oral Capsule Delayed Release Particles (Cymbalta) Take by mouth 2 Capsulesin the morning. 180 Capsule 3 Myrbetriq 50 MG Oral Tablet Extended Release 24 Hour (Mirabegron ER) Take by mouth 1 Tablet in the morning. 90 Tablet 3 Atorvastatin Calcium 80 MG Oral Tablet (Lipitor) TAKE 1 TABLET BY MOUTH EVERY DAY 90 Tablet 0 Furosemide 40 MG Oral Tablet (Lasix) Take by mouth 40 mg daily . Magnesium Chloride 64 MG Oral Tablet Delayed Release (Mag-64) Take by mouth 64 mg 2 times a day. Potassium Chloride ER 10 MEQ Oral Capsule Extended Release Take by mouth 10 Milliequivalent daily . Amiodarone HCl 200 MG Oral Tablet (Cordarone) Take by mouth 1 Tablet in the morning. 34 Tablet 11 Solifenacin Succinate 5 MG Oral Tablet (VESIcare) Take by mouth 1 Tablet in the morning. 30 Tablet 12 Losartan Potassium 100 MG Oral Tablet (Cozaar) TAKE 1 TABLET BY MOUTH EVERY MORNING 30 Tablet 3 metFORMIN HCl 500 MG Oral Tablet (Glucophage) TAKE 2 TABLETS BY MOUTH TWO TIMES DAILY WITH MORNING AND EVENING MEALS 360 Tablet 3 Metoprolol Succinate ER 25 MG Oral Tablet Extended Release 24 Hour (toPROL XL) Take 0.5 Tablets(12.5 mg) by mouth in the morning and 0.5 Tablets (12.5 mg) before bedtime. 30 Tablet 5 No current facility-administered medications for this visit. Patient Active Problem List Diagnosis Code Essential hypertension with goal blood pressure less than 140/90 I10 Type 2 diabetes mellitus without complications (HCC) E11.9 Hemiplegia and hemiparesis following cerebral infarction affecting left non- dominant side (HCC)I69.354 Paroxysmal atrial fibrillation (HCC) I48.0 Left renal mass N28.89 Right internal carotid occlusion I65.21 Morbid obesity due to excess calories ([facility]) E66.01 Body mass index (BMI) of 45.0 to 49.9 in adult (HCC) Z68.42 History of colon cancer Z85.038 BCC (basal cell carcinoma), scalp/neck C44.41 History of basal cell cancer Z85.828 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 C44.219 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 Z86.006 Dyslipidemia, goal LDL below 70 E78.5 SALVADOR on CPAP G47.33, Z99.89 PMB (postmenopausal bleeding) N95.0 Thickened endometrium R93.89 Endometrial polyp N84.0 Heart failure (HCC) I50.9 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 [...] Procedure Laterality Date COLONOSCOPY, DIAGNOSTIC (RECTUM) 11/12/2016 adenocarcinoma/[facility] COLONOSCOPY, DIAGNOSTIC (RECTUM) 02/16/2018 serrated adenomatous polyp, repeat 1 yr/[facility] COLONOSCOPY, DIAGNOSTIC (RECTUM) 03/16/2019 benign polyps, repeat 2 yrs/[facility] DENTAL SURGERY PROCEDURE NEC Dental Surgery Procedure wisdom teeth PAYTON FLEX SIGMOID DIAGNOSITIC 11/20/2016 SIGMOIDOSCOPY FLEXIBLE DIAGNOSTIC performed by Declan West MD at ENDOSCOPY [facility] REMOVAL OF OVARY(S) Left REMOVAL OF OVARY(S) FOR TUMOR benign Social History Tobacco Use Smoking status: Never Smokeless tobacco: Never Vaping Use Vaping Use: Never used Substance Use Topics Alcohol use: Yes Comment: moderate scotch is drink of choice - none since 12/2016 Drug use: No Family history: Noncontributory OBJECTIVE: Diagnostic Testing: X-rays of both knees demonstrate moderate to severe tricompartmental degenerative change, right greater than left. No evidence of fracture. Vital Signs: Ht 1.626 m (5' 4") | Wt 112.4 kg (247 lb 12.8 oz) | BMI 42.53 kg/m | BSA 2.25 m Physical Exam: Well developed/nourished; no acute distress; obese; alert, awake, oriented x3; normal affect Gait Assessment is antalgic with use of a cane Examination the right knee reveals no gross edema, ecchymosis or erythema. There is no joint effusion. Exquisite tenderness palpation along the medial joint line. More moderate tenderness noted laterally. She has good overall range of motion from 0-120 degrees with good quad strength. Collateral stability intact. Sensation intact. Pulses palpable. Examination of the left knee reveals no gross edema, ecchymosis or erythema. There is no significant joint effusion. Tenderness palpation along the medial joint line. She has good overall motion and strength. Collateral stability intact. Sensation intact. Pulses palpable. Chronic lower extremity edema noted. ASSESSMENT: Primary osteoarthritis of both knees (Primary) Chronic pain of right knee Ambulatory dysfunction Follow Up: Return for Preoperative H&P and surgical scheduling - right knee replacement. | For:Preoperative H&P and surgical scheduling - right knee replacement PLAN: We discussed her severe degenerative changes involving her right knee. She has failed adequate conservative management in the past. We focused our discussion on ongoing conservative treatment to include physical therapy as well as weight loss. In the interim, we will determine a timeline for scheduling surgery. As of now she is considering no sooner than July of 2022. Joint replacement information was provided. I would like to see her back in the future for further discussion and possible surgical scheduling. All questions answered. This chart was completed in part utilizing [employer] Speech Voice Recognition Software. Grammatical errors, random word insertions, pronoun errors, and incomplete sentences are an occasional consequence of this system due to software limitations, ambient noise, and hardware issues. Any formal questions or concerns about the content, text, or information contained within the body of this dictation should be directly addressed to the provider for clarification. Forrest Davidson DO 05/29/2022 2:32 PM documented in this encounter Nursing Notes * Shea Delgadillo LPN - 05/29/2022 2:09 PM EST Chief Complaint Patient presents with NEW PATIENT B/L knees- discuss TKA, xrays in Epic, has tried and failed injections, documented in this encounter Plan of Treatment Upcoming Encounters Date Type Specialty Care Team Description 03/18/2023 Office Visit Family Medicine Shiva Rich III, MD [address] [place] [address] [address] 03/31/2023 Laboratory Laboratory [facility] [address] [place] [address] 04/01/2023 [facility] [address] [facility] [address] 04/09/2023 Office Visit Hematology Oncology Efraín Leone MD [address] [place] [address] [address] 04/13/2023 Imaging Radiology 04/15/2023 Office Visit Family Medicine Mable Torres PA-C [address] [place] [address] 04/21/2023 Office Visit Sleep Disorders Viktoriya White CRNP [address] [place] [address] 04/23/2023 Office Visit Orthopedics Forrest Davidson, [address] [place] [address] 05/21/2023 Office Visit Orthopedics Forrest Davidson, [address] [place] [address] 11/11/2023 Office Visit Dermatology Kirsten Shah MD 02/25/2024 Imaging Radiology Scheduled Procedures Name Priority Associated Diagnoses Date/Ti me ROBOTIC ARTHROPLASTY KNEE TOTAL Knee osteoarthritis COLONOSCOPY FLEXIBLE PROXIMA L DIAGNOSTIC Recall History of colonic polyps Scheduled Referrals Name Type Priority Associated Diagnoses Orde r Schedule ORTHOPAEDICS REFERRAL OP Referral Within 30 days (routine) Primary osteoarthritis of both knees Ordered: 02/19/2022 Health Maintenance Due Date Last Done Comments [...] encounter Visit Diagnoses Diagnosis Primary osteoarthritis of both knees- Primary Primary localized osteoarthrosis, lower leg Chronic pain of right knee Ambulatory dysfunction documented in this encounter Care Teams Clay [place] Relationship Specialty Start Date End Date Shiva Rich III, MD [address] [place] [address] PCP - General Family Medicine 09/10/18 documented as of this encounter
--- OUTSIDE RECORDS SUMMARY | 2023-07-14 14:47 | External Medical Summary | Summary of Care ---
Author Name Unknown Organization [facility] Address [address] [facility] [place] [address] Phone [phone] Care Team Providers Care In Home Baby Sitter Name Role Phone Hilario ANDRADE MD, Shiva Kebede Primary Care Provider [phone] Encounter Details Date Type Department Care Team [...] Active Problems Problem Noted Date Atherosclerosis of [place] coronary arter y without angina pectoris 09/10/2022 [...] mRNA, LNP-s, No Pre serve, 2-Dose Series (ImmuRx) 05/16/2021,09/23/2020,08/26/2020 Covid-19, Mrna, Lnp-s, Pf, B ivalent, [...] Description 03/31/2023 Laboratory Laboratory Wilfredo Gambino 132 [facility] [place] [address] 04/01/2023 [facility] 58 60 [facility] [place] [address] 04/09/2023 Office Visit Hematology Oncology Efraín Leone MD 200 [facility], [place] [address] 04/13/2023 Imaging Radiology 04/15/2023 Office Visit Family Medicine Mable Torres PA-C 200 [facility] [place], [place] [address] 04/21/2023 Office Visit Sleep Disorders Viktoriya White CRNP [address] [place] [address] 04/23/2023 Office Visit Orthopedics Forrest Davidson, DO [address] [place], [place] [address] 05/11/2023 Hospital Encounter Surgery Forrest Davidson, DO [address] [place], [place] [address] 05/11/2023 Surgery Surgery Forrest Davidson, DO [address] [place] [address] ROBOTIC ARTHROPLASTY KNEE TOTAL 05/21/2023 Office Visit Orthopedics Forrest Davidson, DO [address] [place] [address] 09/30/2023 Office Visit Family Medicine Shiva Rich III, MD 200 [facility] [place], [place] [address] 11/11/2023 Office Visit Dermatology Kirsten Shah MD [...] filedocumented as of this encounter Care Teams In Home Baby Sitter Relationship Specialty Start Date End Date Shiva Rich III, MD [address] [place] [address] PCP - General Family Medicine 09/10/18 documented as of this encounter
--- OUTSIDE RECORDS SUMMARY | 2023-07-14 14:47 | External Medical Summary | Summary of Care ---
Author Name Unknown Organization [facility] Address [address] [facility] [address] Phone [phone] Care Team Providers Care Supervisor Fine Grading Name Role Phone Hilario ANDRADE MD, Shiva Kebede Primary Care Provider [phone] Reason for Visit * Reason Comments Outpatient Testing Encounter Details Date Type Department Care Team Description 02/17/2023 Laboratory Laboratory, [facility] [place] [id number] [facility] 132 [place] [address] Paroxysmal atrial fibrillation (HCC); Hypertension, unspecified type; Type 2 diabetes mellitus without complication, unspecified whether shelter insulin use (HCC); On bed bug exterminator drug therapy Allergies Active Allergy Reactions Severity Noted Date Comments Bee Venom Edema Other 01/10/2016 Lisinopril Cough 09/04/2016 documented as of this encounter (statuses as of 02/17/2023) Medications Medication Sig Dispensed Refills Start Date [...] (5mg) ALL OTHER EVENINGS OR DIRECTED BY [facility]. 105 Tablet 3 07/18/2022 Active [...] as of this encounter (statuses as of 02/17/2023) Active Problems Problem Noted Date Atherosclerosis of [...] as of this encounter (statuses as of 02/17/2023) Resolved Problems Problem Noted Date Resolved Date [...] as of this encounter (statuses as of 02/17/2023) Immunizations Name Administration Dates Next Due COVID-19 mRNA, LNP-s, No Pre serve, 2-Dose Series (NSC) 05/16/2021,09/23/2020,08/26/2020 Covid-19, Mrna, Lnp-s, Pf, B ivalent, [...] Encounters Date Type Specialty Care Team Description 02/18/2023 [facility] 58 60 [facility] [place] [address] 02/23/2023 Imaging Radiology 03/18/2023 Office Visit Family Medicine [place] III, Shiva Kebede MD 200 [facility], [place] [address] 04/09/2023 Office Visit Hematology Oncology Efraín Leone MD 200 [facility] [place] [address] 04/21/2023 Office Visit Sleep Disorders Viktoriya White CRNP [address] [place] [address] 11/11/2023 Office Visit Dermatology Kirsten Shah MD Pending Results Name Type Priority Associated Diagnoses Date /Time PT INR Lab Routine Paroxysmal atrial fibrillation (HCC) 02/17/2023 11:34 AM EDT ALBUMIN / CREATININE RATIO, URINE Lab Routine Hypertension, unspecified type 02/17/2023 11:34 AM EDT HEMOGLOBIN A1C Lab Routine Type 2 diabetes mellitus without complication, unspecified whether bed bug exterminator insulin use (HCC) 02/17/2023 11:34 AM EDT VITAMIN B12 Lab Routine On bed bug exterminator drug therapy 02/17/2023 11:34 AM EDT Scheduled Procedures Name Priority Associated Diagnoses Date/Ti me ROBOTIC ARTHROPLASTY KNEE TOTAL Knee osteoarthritis COLONOSCOPY FLEXIBLE PROXIMA L DIAGNOSTIC Recall History of colonic polyps Health Maintenance Due Date Last Done Comments Depression Screening, Annual for Pts 12 and Over 06/24/2020 06/24/2019 DIABETES-FOOT EXAM 01/31/2023 01/31/2022, 0 12/31/2020, 06/24/2019, Additional history exists Albumin/Creatinine Ratio 02/03/2023 02/03/2022 HbA1c 03/10/2023 09/10/2022, 01/17, 07/26/2021, Additional history exists Influenza Vaccine (FLU shot) (#1) 2023 04/18/2022, 04/10/2021, 04/13/2020, Additional history exists Mammogram 06/06/2023 06/06/2022, 02/17, 02/21/2022, Additional history exists GFR 08/25/2023 08/25/2022, 09/2022, 05/06/2022, Additional history exists DIABETES-EYE EXAM 08/28/2023 08/28/2022, , 08/17/2020, Additional history exists B-12 10/07/2023 10/06/2022, 01/17, 12/31/2020, Additional history exists COLONOSCOPY-EVERY 3 YRS AGES [...] Diagnosis Paroxysmal atrial fibrillation (HCC) Atrial fibrillation Hypertension, unspecified type Type 2 diabetes mellitus without complication, unspecified whether bed bug exterminator insulin use (HCC) On bed bug exterminator drug therapy documented in this encounter Care Teams Supervisor Fine Grading Relationship Specialty Start Date End Date Shiva iRch III, MD [address] [place] [address] [place] [address] PCP - General Family Medicine 09/10/18 documented as of this encounter
--- OUTSIDE RECORDS SUMMARY | 2023-07-14 14:47 | External Medical Summary | Summary of Care ---
Author Name Unknown Organization [facility] Address [address] [facility] [place] [address] Phone [phone] Care Team Providers Care Dietary Aide Cook Name Role Phone Hilario ANDRADE MD, Shiva Kebede Primary Care Provider [phone] Encounter Details Date Type Department Care Team [...] Active Problems Problem Noted Date Atherosclerosis of [place] coronary arter y without angina pectoris 09/10/2022 [...] Resolved Date Atherosclerotic heart diseas e of [place] coronary artery with other forms of angina [...] mRNA, LNP-s, No Pre serve, 2-Dose Series ([employer]) 05/16/2021,09/23/2020,08/26/2020 Covid-19, Mrna, Lnp-s, Pf, B ivalent, [...] Description 03/31/2023 Laboratory Laboratory Wilfredo Gambino 132 [facility] [place] [address] 04/01/2023 [facility] 58 60 [facility] [place] [address] 04/09/2023 Office Visit Hematology Oncology Efraín Leone MD 200 [facility], [place] [address] 04/13/2023 Imaging Radiology 04/15/2023 Office Visit Family Medicine Mable Torres PA-C 200 [facility] [place], [place] [address] 04/21/2023 Office Visit Sleep Disorders Viktoriya White CRNP [address] [place] [address] 04/23/2023 Office Visit Orthopedics Forrest Davidson, DO [address] [place], [place] [address] 05/11/2023 Hospital Encounter Surgery Forrest Davidson, DO [address] [place], [place] [address] 05/11/2023 Surgery Surgery Forrest Davidson, DO [address] [place] [address] ROBOTIC ARTHROPLASTY KNEE TOTAL 05/21/2023 Office Visit Orthopedics Forrest Davidson, DO [address] [place] [address] 09/30/2023 Office Visit Family Medicine Shiva Rich III, MD 200 [facility] [place], [place] [address] 11/11/2023 Office Visit Dermatology Kirsten Shah MD [...] filedocumented as of this encounter Care Teams Dietary Aide Cook Relationship Specialty Start Date End Date Shiva Rich III, MD [address] [place] [address] PCP - General Family Medicine 09/10/18 documented as of this encounter
--- OUTSIDE RECORDS SUMMARY | 2023-07-14 14:47 | External Medical Summary | Summary of Care ---
Author Name Unknown Organization [facility] Address [address] [facility] [place] [address] Phone [phone] Care Team Providers Care Science Editor Name Role Phone Hilario ANDRADE MD, Shiva Kebede Primary Care Provider [phone] Reason for Referral * Precert (Within 10 days (routine)) - Pending Review Specialty Diagnoses / Procedures Referred By Andrea cochran Referred To Contact Radiology Diagnoses Primary osteoarthritis of both knees Chronic pain of right knee Pre-op testing Procedures CT LOWER EXTREMITY Forrest Kingston DO [address] [place] [address] Referral ID Status Reason Start Date Expiration Date V isits Requested Visits Authorized [id number] Pending Review 03/27/2023 999 [id number] Encounter Details Date Type Department Care Team Description 02/24/2023 Telephone Orthopaedics [facility] [address] [place] [address] Forrest Davidson DO [address] [place] [address] Allergies Active Allergy Reactions Severity Noted Date [...] (5mg) ALL OTHER EVENINGS OR DIRECTED BY [facility]. 105 Tablet 3 07/18/2022 Active Multi [...] Active Problems Problem Noted Date Atherosclerosis of [place] coronary arter y without angina pectoris 09/10/2022 [...] Resolved Date Atherosclerotic heart diseas e of [place] coronary artery with other forms of angina [...] encounter Miscellaneous Notes * Addendum Note - Toyin Ivey RN - 02/24/2023 12:00 PM EDTAddended by: TOYIN IVEY on: 02/24/2023 12:00 PM Modules accepted: Orders * Telephone Encounter - SALVADOR Sanchez - 02/24/2023 11:51 AM EDT Patient is scheduled on 05/11/23 * Telephone Encounter - SALVADOR Sanchez - 02/24/2023 11:02 AM EDT I called this patient to schedule surgery with Dr. Davidson on 05/11/23. No answer. Left message for call back. documented in this encounter Plan of Treatment Upcoming Encounters Date Type Specialty Care Team Description 03/18/2023 Office Visit Family Medicine Shiva Rich III, MD [address] [place] [address] [address] 03/31/2023 Laboratory Laboratory [facility] [address] [place] [address] 04/01/2023 [facility] [address] [place] [address] 04/09/2023 Office Visit Hematology Oncology Efraín Leone MD [address] [place] [address] [address] 04/13/2023 Imaging Radiology 04/15/2023 Office Visit Family Medicine Mable Torres PA-C [address] [place] [address] [address] 04/21/2023 Office Visit Sleep Disorders Viktoriya White CRNP [address] [place] [address] 04/23/2023 Office Visit Orthopedics Forrest Davidson, DO [address] [place] [address] 05/11/2023 Hospital Encounter Surgery Forrest Davidson, DO [address] [place] [address] 05/21/2023 Office Visit Orthopedics Forrest Davidson, [address] [place] [address] 11/11/2023 Office Visit Dermatology Kirsten Shah MD 02/25/2024 Imaging Radiology Scheduled Orders Name Type Priority Associated Diagnoses Orde r Schedule CT LOWER EXTREMITY [place] [facility] Medical Imaging Routine Primary osteoarthritis of both knees Chronic pain of right knee Pre-op testing Expected: 03/27/2023, Expires: 03/27/2024 Scheduled Procedures Name Priority Associated Diagnoses Date/Ti [...] lower leg Chronic pain of right knee Pre-op testing Preoperative examination, unspecified documented in this encounter Care Teams Science Editor Relationship Specialty Start Date End Date Shiva Rich III, MD [address] [place] [address] PCP - General Family Medicine 09/10/18 documented as of this encounter
--- OUTSIDE RECORDS SUMMARY | 2023-07-14 14:47 | External Medical Summary | Summary of Care ---
Author Name Unknown Organization [facility] Address [address] [facility] [place] [address] Phone [phone] Care Team Providers Care Construction Person Name Role Phone Hilario ANDRADE MD, Shiva Kebede Primary Care Provider [phone] Reason for Referral * Precert (Within 10 days (routine)) - Pending Review Specialty Diagnoses / Procedures Referred By Andrea cochran Referred To Contact Radiology Diagnoses Primary osteoarthritis of both knees Chronic pain of right knee Pre-op testing Procedures CT LOWER EXTREMITY Forrest Kingston DO [address] [place] [address] Referral ID Status Reason Start Date Expiration Date V isits Requested Visits Authorized [id number] Pending Review 03/27/[phone] Encounter Details Date Type Department Care Team Description 02/24/2023 Telephone Orthopaedics [facility] [address] [place] [address] Forrest Davidson DO [address] [place] [address] Allergies Active Allergy Reactions Severity Noted Date [...] (5mg) ALL OTHER EVENINGS OR DIRECTED BY [facility]. 105 Tablet 3 07/18/2022 Active Multi [...] Active Problems Problem Noted Date Atherosclerosis of [place] coronary arter y without angina pectoris 09/10/2022 [...] Resolved Date Atherosclerotic heart diseas e of [place] coronary artery with other forms of angina [...] Rich III, MD [address] [place] [address] [address] 03/31/[address] [facility] 132 [place] [address] 04/01/2023 [facility] [address] [place] [address] 04/09/2023 Office Visit Hematology Oncology Efraín Leone MD [address] [place] [address] [address] [address] 04/13/2023 Imaging Radiology 04/15/2023 Office Visit Family Medicine Mable Torres PA-C [address] [place] [address] [address] 04/21/2023 Office Visit Sleep Disorders Viktoriya White CRNP [address] [place] [address] 04/23/2023 Office Visit Orthopedics Forrest Davidson, DO [address] [place] [address] 05/11/2023 Hospital Encounter Surgery Forrest Davidson, DO [address] [place] [address] 05/21/2023 Office Visit Orthopedics Forrest Davidson, [address] [place] [address] 11/11/2023 Office Visit Dermatology Kirsten Shah MD [...] unspecified documented in this encounter Care Teams Construction Person Relationship Specialty Start Date End Date Shiva Rich III, MD [address] [place] [address] PCP - General Family Medicine 09/10/18 documented as of this encounter
--- OUTSIDE RECORDS SUMMARY | 2023-07-14 14:47 | External Medical Summary | Summary of Care ---
Author Name Unknown Organization [facility] Address [address] [facility] [address] Phone [phone] Care Team Providers Care Network Security Architect Name Role Phone Hilario ANDRADE MD, Shiva Kebede Primary Care Provider [phone] Encounter Details Date Type Department Care Team Description 02/18/2023 Telephone Family Practice [facility] 200 [facility] [place] [address] Shiva Rich III, MD 200 [place] [address] Allergies Active Allergy Reactions Severity Noted Date [...] mRNA, LNP-s, No Pre serve, 2-Dose Series ([employer]) 05/16/2021,09/23/2020,08/26/2020 Covid-19, Mrna, Lnp-s, Pf, B ivalent, [...] Imaging Radiology 03/18/2023 Office Visit Family Medicine [place] III, MD [address] [place] [address] [address] 04/09/2023 Office Visit Hematology Oncology Efraín Leone MD [address] [place] [address] [address] [address] 04/21/2023 Office Visit Sleep Disorders Viktoriya White CRNP [address] [place] [address] 11/11/2023 Office Visit Dermatology Kirsten Shah MD [...] as of this encounter Care Teams Network Security Architect Relationship Specialty Start Date End Date Shiva Rich III, MD [address] [place] [address], [place] [address] PCP - General Family Medicine 09/10/18 documented as of this encounter
--- OUTSIDE RECORDS SUMMARY | 2023-07-14 14:47 | External Medical Summary | Summary of Care ---
Author Name Unknown Organization [facility] Address [address] [facility] [address] Phone [phone] Care Team Providers Care Hard Tile Setter Name Role Phone Hilario ANDRADE MD, Collette Kebede Primary Care Provider [phone] Reason for Visit * Reason Onset Date Comments Medication Refill 02/24/2023 Encounter Details Date Type Department Care Team Description 02/24/2023 Refill Family Practice [facility] [place] 200 [facility] [place] [address] Collette Mello III, MD 200 [facility] [place] [address] Allergies Active Allergy Reactions Severity Noted Date Comments Bee Venom Edema Other 01/10/2016 Lisinopril Cough 09/04/2016 documented as of this encounter (statuses as of 02/25/2023) Medications Medication Sig Dispensed Refills Start Date [...] ALL OTHER EVENINGS OR DIRECTED BY [facility]. 105 Tablet 3 2 [...] the morning. 90 Tablet 3 3 Active Cyanocobalamin 1000 MCG Oral Tablet (Cyanocobalamin) Take 1 Tablet by mouth in the morning. 100 Tablet 3 3 Active Losartan Potassium 100 MG Oral Tablet (Cozaar) Take 1 Tablet by mouth in the morning. 90 Tablet 1 3 Active Losartan Potassium 100 MG Oral Tablet (Cozaar) TAKE 1 TABLET BY MOUTH EVERY DAY IN THE MORNING 90 Tablet 1 3 02/25/20 23 Discontinu ed(Refill) documented as of this encounter (statuses as of 02/25/2023) Active Problems Problem Noted Date Atherosclerosis of [place] coronary arter y without angina pectoris [...] as of this encounter (statuses as of 02/25/2023) Resolved Problems Problem Noted Date Resolved Date Atherosclerotic heart diseas e of [place] coronary artery with other forms of [...] as of this encounter (statuses as of 02/25/2023) Immunizations Name Administration Dates Next Due COVID-19 mRNA, LNP-s, No Pre serve, 2-Dose Series ([email or web address]) 05/16/2021,09/23/2020,08/26/2020 Covid-19, Mrna, Lnp-s, Pf, B ivalent, [...] encounter Miscellaneous Notes * Telephone Encounter - Wanda Parkinson [facility] - 02/25/2023 12:19 PM EDTSigned Prescriptions: Disp Refills Losartan Potassium 100 MG Oral Tablet (Coz*90 Tab*1 Sig: Take 1 Tablet by mouth in the morning.Authorizing Provider: COLLETTE MELLO III User: TACOS PARKINSON documented in this encounter Plan of Treatment Upcoming Encounters Date Type Specialty Care Team Description 03/18/2023 Office Visit Family Medicine Collette Mello III, MD [address] [place] [address] 03/31/2023 [facility] [address] [place] [address] 04/01/2023 [facility] [address] [address] [place] [address] 04/09/2023 Office Visit Hematology Oncology Efraín Leone MD [address] [place] [address] 04/13/2023 Imaging Radiology 04/15/2023 Office Visit Family Medicine Mable Torres PA-C [address] [place] [place] [address] 04/21/2023 Office Visit Sleep Disorders Viktoriya White CRNP [address] [place] [address] 04/23/2023 Office Visit Orthopedics Forrest Davidson DO [address] [place] [address] 05/11/2023 Hospital Encounter Surgery Forrest Davidson, [address] [place] [address] 05/11/2023 Surgery Surgery Forrest Davidson, DO [address] [place] [address] ROBOTIC ARTHROPLASTY KNEE TOTAL 05/21/2023 Office Visit Orthopedics Forrest Davidson, DO [address] [place] [address] 11/11/2023 Office Visit Dermatology Kirsten Shah MD 02/25/2024 Imaging Radiology Scheduled Procedures Name Priority Associated Diagnoses Date/Ti wv ROBOTIC ARTHROPLASTY KNEE TOTAL Knee osteoarthritis 05/11/2023 [...] 02/03/2022, Additional history exists GFR 08/25/2023 08/25/2022, /09/2022, 05/06/2022, Additional history exists DIABETES-EYE EXAM 08/28/2023 [...] filedocumented as of this encounter Care Teams Hard Tile Setter Relationship Specialty Start Date End Date Collette Mello III, MD 200 [facility] [place] [address] PCP - General Family Medicine 09/10/18 documented as of this encounter
--- OUTSIDE RECORDS SUMMARY | 2023-07-14 14:47 | External Medical Summary | Summary of Care ---
Author Name Unknown Organization [facility] Address [address] [facility] [place] [address] Phone [phone] Care Team Providers Care Cloth Bolt Bander Name Role Phone Hilario ANDRADE MD, Shiva Kebede Primary Care Provider [phone] Reason for Visit * Reason Onset Date Comments Surgery 02/23/2023 Encounter Details Date Type Department Care Team Description 02/23/2023 Telephone Orthopaedics [facility] [address] [place] [address] Forrest Davidson, [address] [place] [address] Surgery Allergies Active Allergy Reactions Severity Noted Date Comments Bee Venom Edema Other 01/10/2016 Lisinopril Cough 09/04/2016 documented as of this encounter (statuses as of 02/23/2023) Medications Medication Sig Dispensed Refills Start Date [...] [facility]. 105 Tablet 3 07/18/2022 [...] as of this encounter (statuses as of 02/23/2023) Active Problems Problem Noted Date Atherosclerosis of [place] coronary arter y without angina pectoris 09/10/2022 [...] as of this encounter (statuses as of 02/23/2023) Resolved Problems Problem Noted Date Resolved Date Atherosclerotic heart diseas e of [place] coronary artery with other forms of angina [...] as of this encounter (statuses as of 02/23/2023) Immunizations Name Administration Dates Next Due COVID-19 mRNA, LNP-s, No Pre serve, 2-Dose Series ([employer]) 05/16/2021,09/23/2020,08/26/2020 Covid-19, Mrna, Lnp-s, Pf, B ivalent, [...] Miscellaneous Notes * Telephone Encounter - SALVADOR Delgado - 02/23/2023 9:13 AM EDT Nenita Kemp stopped at the assistant front desk manager to check on a surgery date/time with Dr. Davidson. I did not see a date/time on the Admissions tab. She would like a call to discuss the timeframe. Thanks. documented in this encounter Plan of Treatment Upcoming Encounters Date Type Specialty Care Team Description 03/18/2023 Office Visit Family Medicine [place] II[place]hiva MD 200 [facility] [place] [address] 03/31/2023 Laboratory Laboratory [place] [address] [place] [address] 04/01/2023 [facility] [address] [place] [address] 04/09/2023 Office Visit Hematology Oncology Efraín Leone MD [address] [facility] [place] [address] 04/21/2023 Office Visit Sleep Disorders Viktoriya White CRNP [address] [place] [address] 11/11/2023 Office Visit Dermatology [place] 02/25/2024 Imaging Radiology Scheduled Procedures Name [...] filedocumented as of this encounter Care Teams Cloth Bolt Bander Relationship Specialty Start Date End Date Shiva Rich III, MD [address] [facility] [place] [address] PCP - General Family Medicine 09/10/18 documented as of this encounter
[2023-07-14 14:48] LABS: Troponin I High Sensitivity 8.4 pg/ml (0-14)
--- OUTSIDE RECORDS SUMMARY | 2023-07-14 14:48 | External Medical Summary ---
Author Name Unknown Address Unknown Organization [id number]:[facility] [address] [place] [address] Laboratory Report Ordering Provider Test Date Status INDER KINCAID 02/17/2023 11:34:37 Final Standing order for pt/inr. < br/>Please draw pt/inr every 1 to 4 weeks as requested
Results to [facility]

Warfarin Therapy
INR: 2.0-3.0 conventional anticoagulation
INR: 2.5-3.5 high intensity anticoagulation Observation Date Value Abnormality Reference (Units ) Status PT 02/17/2023 11:34:37 30.8 Above high normal 11 .6-15.2 (seconds) Final INR 02/17/2023 11:34:37 2.9 Above high normal 0. 8-1.2 Final Performing Location [facility] [address] - [address] [place] [address]
--- OUTSIDE RECORDS SUMMARY | 2023-07-14 14:48 | External Medical Summary | Summary of Care ---
Author Name Unknown Organization [facility] Address [address] [facility] [place] [address] Phone [phone] Care Team Providers Care Retail Pharmacy Manager Name Role Phone Hilario ANDRADE MD, Shiva Kebede Primary Care Provider [phone] Reason for Visit * Reason Onset Date Comments Medication Refill 02/08/2023 Encounter Details Date Type Department Care Team Description 02/08/2023 Refill Urogynecology [facility] [address] [place] [address] Chilo Mcgregor MD [address] [place] [address] Allergies Active Allergy Reactions Severity Noted Date Comments Bee Venom Edema Other 01/10/2016 Lisinopril Cough 09/04/2016 documented as of this encounter (statuses as of 02/09/2023) Medications Medication Sig Dispensed Refills Start Date [...] (5mg) ALL OTHER EVENINGS OR DIRECTED BY [facility]. 105 Tablet 3 2 Active [...] IN THE MORNING 90 Tablet 1 3 Active Furosemide 40 MG Oral Tablet (Lasix) [...] the morning. 90 Tablet 3 3 Active Myrbetriq 50 MG Oral Tablet Extended Release 24 Hour (Mirabegron ER) Take by mouth 1 Tablet in the morning. 90 Tablet 3 2 02/09/20 23 Discontinu ed(Refill) documented as of this encounter (statuses as of 02/09/2023) Active Problems Problem Noted Date Atherosclerosis of [...] as of this encounter (statuses as of 02/09/2023) Resolved Problems Problem Noted Date Resolved Date [...] as of this encounter (statuses as of 02/09/2023) Immunizations Name Administration Dates Next Due COVID-19 mRNA, LNP-s, No Pre serve, 2-Dose Series ([employer]) 05/16/2021,09/23/2020,08/26/2020 Covid-19, Mrna, Lnp-s, Pf, B ivalent, [...] Telephone Encounter - Chilo Mcgregor MD - 02/09/2023 11:42 AM EDTSigned Prescriptions: Disp Refills Myrbetriq 50 MG Oral Tablet Extended Relea*90 Tab*3 Sig: Take 1 Tablet by mouth in the morning. Authorizing Provider: CHILO MCGREGOR * Telephone Encounter - Sinai Branham RN - 02/09/2023 8:56 AM EDTPending Prescriptions: Disp Refills Myrbetriq 50 MG Oral Tablet Extended Relea*90 Tab*3 Sig: Take 1 Tablet by mouth in the morning. * Telephone Encounter - Sinai Branham RN - 02/09/2023 8:[address] Mcgregor--telemed 06/11/2022 Myrbetriq 50 mg reorder request Last ordered 12/2021 Pended below thanks documented in this encounter Plan of Treatment Upcoming Encounters Date Type Specialty Care Team Description 02/17/2023 Laboratory Laboratory Wilfredo Thomas [address] [place] [address] [address] [address] 02/18/2023 [facility] [address] [place] [address] 02/23/2023 Imaging Radiology 03/18/2023 Office Visit Family Medicine [place] Shiva ANDRADE MD 200 [facility] [place] [address] 04/09/2023 Office Visit Hematology Oncology Efraín Leone MD [address] [place] [address] [address] 04/21/2023 Office Visit Sleep Disorders Viktoriya White CRNP [address] [place] [address] 11/11/2023 Office Visit Dermatology Kirsten Shah MD [...] filedocumented as of this encounter Care Teams Retail Pharmacy Manager Relationship Specialty Start Date End Date Shiva Rich III, MD [address] [place] [address], [place] [address] PCP - General Family Medicine 09/10/18 documented as of this encounter
--- OUTSIDE RECORDS SUMMARY | 2023-07-14 14:48 | External Medical Summary ---
Author Name Unknown Address Unknown Organization [id number]:[facility] [place] [address] [place] [address] Laboratory Report Ordering Provider Test Date Status RIAZ MURDOCK III 02/17/2023 11:34:37 Final Normal: <30 mg/g creatinine< br/>High: 30-300 mg/g creatinine
Very High: >300 mg/g creatinine
Nephrotic: >2200 mg/g creatinine Observation Date Value Abnormality Reference (Units ) Status Albumin, Urine 02/17/2023 11:34:37 9.83 (mg/dL) Final Creatinine, Urine 02/17/2023 11:34:37 181 (mg/dL) Final Albumin/Creatinine [Mass Ratio] in Urine 02/17/2023 11:34:37 54 Above high normal <30 (mg/g Creat) Final Performing Location [facility] [place] [facility] [address] [place] [address]
--- OUTSIDE RECORDS SUMMARY | 2023-07-14 14:48 | External Medical Summary ---
Author Name Unknown Address Unknown Organization [id number]:[facility] [place] [address] [facility] [address] Laboratory Report Ordering Provider Test Date Status RIAZ MURDOCK III 02/17/2023 11:34:37 Final Observation Date Value Abnormality Reference (Units ) Status HbA1C 02/17/2023 11:34:37 5.6 4.0-5.6 (% ) Final The use of HbA1c to monitor glycemic status is based on normal hemoglobin and HbA composition. This test should not be used in patients with abnormal hemoglobin that affects the half life of the red blood cell or the in vivo glycation rates. Glucose, estimated average 02/17/2023 11:34:37 114 <126 (mg/dL) Final Performing Location [facility] [place] [address] [facility] [address]
--- OUTSIDE RECORDS SUMMARY | 2023-07-14 14:48 | External Medical Summary ---
Author Name Unknown Address Unknown Organization [id number]:[facility] [place] - [address] [place] [address] Laboratory Report Ordering Provider Test Date Status RIAZ MURDOCK III 02/17/2023 11:34:37 Final Observation Date Value Abnormality Reference (Units ) Status Vitamin B12 02/17/2023 11:34:37 [id number] (pg/mL) Final Performing Location LAB[facility]ATORY [facility] - [address] [place] [address]
[2023-07-14] MEDS ORDERED: FUROSEMIDE 40 MG/4 ML VIAL IV ONE (15:00)
[2023-07-14 15:01] LABS: Influenza A virus by PCR Negative (Neg); Influenza B virus by PCR Negative (Neg); RSV by PCR Negative (Neg); SARS CoV2 RNA(COVID-19) Ceph NEGATIVE (Negative)
[2023-07-14 15:05] LABS: INR 5.4 (0.9-1.1); Partial Thromboplastin Time 56 Seconds (21-31); Prothrombin Time 52.9 Seconds (9.0-12.0)
--- NOTE | 2023-07-14 15:18 | History & Physical Report ---
Date of Service July 14, 2023 Assessment & Plan (1) CHF (congestive heart failure): (2) Idiopathic cardiomyopathy: (3) Paroxysmal atrial fibrillation: (4) Hypertension: (5) Hyperlipidemia: Plan: - Admit to tele - Concern for acute systolic CHF exacerbation with increased shortness of breath, swelling of ankles, increased weight - Follows with [facility] cardiology, Dr. More as outpatient - had contacted their office today and was instructed to double lasix for 2-3 days and track weight, no appointments were available today but they had scheduled her to be seen tomorrow in the clinic. Pt preferred not to double lasix and said she would possibly go to the ER per outpt [facility] chart review. - Last Echo was done Jul 2022 showing 55-59 %, repeat today - Troponin was negative at 8.4, BNP 303 - Lasix 40 mg IV given in the ER, continue 40 mg IV BID for now - Dry weight of 208, today is 220 lbs. Possibly slightly up s/p knee surgery from other means not just fluid - EKG reviewed as above showing sinus bradycardia with 1st degree AV block, HR in 50s. Rate controlled on home medications - Daily weights, strict I/Os, fluid restriction with additional lasix dosing, purwick in place. - Oxygen support as needed and wean as tolerated - Monitor renal function/electrolytes - Continue losartan, metoprolol succinate - PT/OT consulted - INR 5.4 on admission, continue daily lab, Coumadin dosing at home: 7.5 mg on Fridays and 5 mg all other days -- -HOLD tonight. (6) CVA (cerebral vascular accident): Plan: - Hx of such, on coumadin with supratherapeutic INR today - Cont atorvastatin and aspirin (7) Fall: Plan: - fall with shortness of breath as per HPI, bruising present on R lower back and flank region, due to supratherapeutic INR. Fall precautions, PT/OT consults. (8) Type 2 diabetes mellitus: Plan: - Last A1c: 7.1 on 04/26, no recheck at this time -Hold metformin -NovoLog sliding scale per protocol -Monitor BGs (9) Hypothyroidism: Plan: - Chronic, stable, continue levothyroxine (10) SALVADOR (obstructive sleep apnea): Plan: Cont CPAP HS, does not typically require supplemental O2 at baseline during the day (11) Obesity (BMI 30-39.9): Plan: -BMI 38, down from BMI of 46 at time of her last admission, patient admits to significant weight loss over the past year. -Encouraged exercise and diet DVT PPx: Coumadin FEN/GI: Heart healthy/diabetic diet, fluid restriction Lines: 2 PIV CODE: Dispo: From home, likely to remain in the hospital x 1-2 days History of Present Illness Chief Complaint: Shortness of breath Primary Care Provider: Shiva Rich MD This is a 59-year-old female with PMHx of paroxysmal A-fib on Coumadin, chronic systolic CHF with preserved EF, HTN, HLD, history of CVA, history of colon cancer status post partial colon resection, obesity with a BMI of 38 with significant weight loss within the past year, hypothyroidism, DM type II, SALVADOR wearing CPAP at bedtime who presents to the hospital with 3 to 4 days of increasing shortness of breath. Her O2 sats on arrival to the ER were 83%, she is currently on 4 L with O2 sats at 94%. She does not require any supplemental O2 at baseline during the day. Pt notes that she has been feeling increased shortness of breath since . She noticed this with exertional activities like going up the stairs. About 2 days ago she got winded while going up the stairs and sat down/fell onto the step she was at and hit her lower back. Reports there is a bruise there. She felt like she was in afib with sx experienced a year ago . At that time did not have any palpitations. Pt denies any recent viral symptoms. Pt weighs herself occasionally and thinks 208lbs is her dry weight in April since prior to her knee surgery. She admits to having some swelling around her ankles within past few days. Denies orthopnea. She has been eating more liberally due to the holidays. Pt denies fluid restriction, drinks water and ice tea, about 4-5, 8oz glasses. She took her water pill this morning. Initial troponin is negative at 8.4, BNP is 303, she has an EKG showing sinus bradycardia with a heart rate in the 50s. Chest imaging shows pulmonary edema and bilateral small pleural effusions. Admit for CHF exacerbation Allergies Allergy/AdvReac Type Severity Reaction Status Date / Time bee venom protein (honey bee) Allergy Intermediate SWELLING - Verified 04/25/22 20:22 LOCALIZED AT [facility] lisinopril AdvReac Mild COUGH Verified 04/25/22 20:22 Home Medications Medication Instructions Recorded Confirmed Type atorvastatin 80 mg tablet 80 mg PO QPM 03/07/19 07/14/23 History ezetimibe 10 mg tablet 10 mg PO QAM 03/07/19 07/14/23 History metformin 500 mg tablet 1,000 mg PO BIDM 03/07/19 07/14/23 History metoprolol succinate 25 mg 12.5 mg PO QAM 11/20/21 07/14/23 History tablet,extended release 24 hr aspirin 81 mg tablet,delayed 81 mg PO QAM 04/25/22 07/14/23 History release duloxetine 60 mg capsule,delayed 120 mg PO QAM 04/25/22 07/14/23 History release losartan 100 mg tablet 100 mg PO QAM 04/25/22 07/14/23 History mirabegron 50 mg tablet,extended 50 mg PO QAM 04/25/22 07/14/23 History release 24 hr (Myrbetriq) warfarin 5 mg tablet 5 mg PO UD 04/25/22 07/14/23 History amiodarone 200 mg tablet 200 mg PO BIDM #60 tabs 04/29/22 07/14/23 Rx furosemide 40 mg tablet 40 mg PO DAILY #30 tabs 04/29/22 07/14/23 Rx magnesium chloride 64 mg 64 mg PO BID #30 tabs 04/29/22 07/14/23 Rx (magnesium chloride) tablet,delayed release (Mag 64) ferrous sulfate 325 mg (65 mg 325 mg PO DAILY 07/14/23 07/14/23 History iron) tablet mecobalamin (vitamin B12) 1,000 1,000 mcg PO DAILY 07/14/23 07/14/23 History mcg chewable tablet (B12 Active) multivitamin 1 tab PO DAILY 07/14/23 07/14/23 History solifenacin 5 mg tablet 5 mg PO QAM 07/14/23 07/14/23 History Past Med/Surg History Medical History (Updated 07/14/23 @ 17:28 by Chilo Vaughan MD) CHF (congestive heart failure) EF 30-35% Angioleiomyoma On anticoagulant therapy Morbid obesity with BMI of 45.0-49.9, adult Diabetes mellitus, type 2 NIDDM History of skin cancer History of colon cancer S/p colon resection (2016) - no chemo/radiation CVA (cerebral vascular accident) DECEMBER 2016 - L SIDED WEAKNESS/NUMBNESS, LACK OF COORDINATION Hyperlipidemia Hypertension Sleep apnea CPAP Paroxysmal atrial fibrillation On Coumadin Internal carotid artery stenosis 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 Diggs Hx of coronary angioplasty History of anesthesia reaction 12/2016 - COLECTOMY - [facility] - STROKE LIKE SYMPTOMS UPON COMING OUT OF ANESTHESIA - DX CVA FOLLOWING DAY History of Mohs micrographic surgery for skin cancer History of colectomy History of colonoscopy with polypectomy Family History Unknown Hypertension Coronary heart disease Social History Smoking Status: Never smoker Second Hand Exposure: No; Do You Dip or Chew Tobacco: No; Hx Alcohol Use: Yes Alcohol type: hard liquor Alcohol type Comment: 2 drinks daily Hx Substance Use: No Preferred Language: Kenyan Communication Ability: Effective Special Librarian Required: No Beliefs That Will Affect Care: None marital status: Current Living Situation: Spouse Feels Safe at Home: Yes Assistive Devices: Cane Review of Systems Review of Systems: Constitutional: No fever, sweats or chills Eyes: No diplopia, no worsening or blurred vision ENT: normal hearing, no trouble swallowing Respiratory: No cough, sputum, + dyspnea on exertion, does not require supplemental O2 at baseline Cardiovascular: No chest pain, tightness or palpitations Abdomen: No pain, nausea, vomiting, diarrhea or constipation Musculoskeletal: History of right knee joint replacement status post secondary surgery in May, chronic no joint pain, nothing new, otherwise no joint pain, calf pain, + ankle swelling Neurologic: No weakness, numbness/tingling, or balance problems Psychiatric: No anxiety or depression Skin: No rash or itch Physical Exam Physical Exam: General: awake, alert, no apparent distress, morbidly obese white female Head: Normocephalic, atraumatic ENT: PERRL, EOMI, no pharyngeal exudate, mucous membranes moist Chest: diminished at bases bilaterally, Faint crackles, on 4 L via NC, on room air, no adventitious breath sounds Cardiac: Regular rate and rhythm, bradycardia, no murmur, no JVD, normal peripheral pulses, good capillary refill Abdominal: NABS x 4 quadrants, soft, nondistended, nontender to palpation, no rebound or guarding Extremities: S/p right knee surgery, healing incision site,, 1+ nonpitting peripheral edema bilaterally, no erythema, calfs nontender to palpation Psych: Normal mood and affect Neuro: AAO x 3, strength intact bilaterally and rated 5/5, no motor deficits, speech is clear, no peripheral sensory deficits Results & Data Results & Data Vital Signs (Past 12 Hours) Vital Signs Temp Pulse Pulse Resp BP BP Pulse Ox 07/14/23 14:59 60 20 92 07/14/23 14:01 51 L 22 91 07/14/23 14:01 07/14/23 14:01 36.8 C 51 L 22 150/71 H 99 07/14/23 13:45 51 L 07/14/23 13:26 83 L 07/14/23 13:20 35.4 C L 54 L 20 145/58 H 87 L O2 Del Method O2 Flow Rate 07/14/23 14:59 Nasal Cannula 4 07/14/23 14:01 Nasal Cannula 3 07/14/23 14:01 Nasal Cannula 3 07/14/23 14:01 Room Air 07/14/23 13:45 07/14/23 13:26 Nasal Cannula 0 07/14/23 13:20 Room Air Laboratory Results 07/14/23 07/14/23 Unknown 13:57 WBC 6.50 RBC 3.31 L Hgb 9.3 L Hct 28.6 L MCV 86.4 MCH 28.1 MCHC 32.5 RDW Std Deviation 45.5 RDW Coeff of Ximena 14.6 H Plt Count 289 MPV 10.3 Immature Gran % (Auto) 0.3 Neut % (Auto) 70.2 Lymph % (Auto) 17.4 [place] % (Auto) 9.8 Eos % (Auto) 2.0 Baso % (Auto) 0.3 Neut # (Auto) 4.56 Lymph # (Auto) 1.13 L [place] # (Auto) 0.64 H Eos # (Auto) 0.13 Baso # (Auto) 0.02 Immature Gran # (Auto) 0.02 PT 52.9 H INR 5.4 H APTT 56 H PTT Ratio 2.0 Sodium 136 Potassium 4.2 Chloride 103 Carbon Dioxide 25 Anion Gap 8 BUN 15 Creatinine 0.76 Est Cr Clr Drug Dosing 81.6 Est GFR ( Amer) 93.4 Est GFR (Non-Af Amer) 80.6 BUN/Creatinine Ratio 19.7 Glucose 127 H Calcium 9.1 Total Bilirubin 0.8 AST 25 ALT 30 Alkaline Phosphatase 89 Troponin I High Sens 8.4 B-Natriuretic Peptide 303 H Total Protein 7.1 Albumin 3.7 Globulin 3.4 Albumin/Globulin Ratio 1.1 SARS-CoV-2 (PCR) NEGATIVE Influenza Type A (PCR) Negative Influenza Type B (PCR) Negative RSV (RT-PCR) Negative Diagnostic Findings Chest X-Ray 07/14/23 13:26 XR chest 1V portable CLINICAL HISTORY: Chest pain, nonspecific. COMPARISON STUDY: Chest radiograph December 27, 2016. Chest CT April 25, 2022. FINDINGS: There is no pneumothorax. Small bilateral pleural effusions are present. Diffuse interstitial thickening is noted. Asymmetric right lung airspace opacities are noted. There is a possible 3.9 cm nodular right midlung density. Moderate cardiomegaly is unchanged. IMPRESSION: 1. Cardiomegaly with mild interstitial pulmonary edema and small bilateral pleural effusions. 2. Asymmetric right lung airspace opacities, including a possible 3.9 cm nodular right midlung density. The findings favor superimposed pneumonia. Asymmetric alveolar pulmonary edema could appear similar. Radiographic follow-up to ensure resolution is recommended. ACT 112: Negative or not required by law. Electronically signed by: Geraldo Domínguez M.D. 07/14/2023 2:23 PM ECG Additional Comments: Reviewed personally showing sinus bradycardia with first-degree AV block, 50s, no signs of ST wave inversion or signs of ischemia Supervising Physician Co-Signing Physician Notes I have seen and discussed the case with the collaborating BRAYAN. I agree with the above H&P. I have reviewed and confirmed the patients medical history, the findings on physical examination, and the patients diagnosis and treatment plan with Victor Hugo SCHMIDT and agree with the information documented. In short, Ms. Fleming is a 67 year old woman with past medical history notable for a fib s/p cardioversion, HFrecEF, and other comorbities who is presenting with 1 week of swelling in BLE and SOB. Patient reports feeling well and recovering from her recent knee replacement. That course was complicated by infection and revision of prothesis back in May, but since then she was discharged home. She states the last weight she remembers at that time was being approximately 208 pounds. She reports feeling deconditioned since discharge, but noticed in the last week it has been much worse. She states that it was initially on exertion, then progressed. She does endorse medication compliance, but notes that in the last couple of weeks she has been "splurging" with her diet. EKG sinus mookie. Labs with BNP 303. INR 5.4 Physical exam is notable for a pleasant and conversational woman, without conversational dyspnea. CV RRR no murmur, Resp with scattered crackles, on NC 4L. MSK with BLE edema 2+. Large ecchymosis on right flank. #Acute hypoxic resp failure #Acute on chronic HFrecEF #Paroxysmal a fib s/p cardioversion 04/2022 -ECHO ordered -Monitor on tele -Bradycardic, resume amiodarone, continue metop with hold parameters. -Resume home medications, IV hydral prn -IV lasix 40mg BID #Supratherapeutic INR -Hold coumadin, trend INR resume as able #Ambulatory dysfunction -PT/OT, fall precautions Rest of plan as above
[2023-07-14] MEDS ORDERED: ONDANSETRON INJ 2 MG/ML 2 ML VIAL IV PRN (16:17)
[2023-07-14] MEDS ORDERED: ACETAMINOPHEN 325 MG TAB PO PRN (16:17)
[2023-07-14] MEDS ORDERED: DEXTROSE 50% 50 ML SYRINGE IV PRN (16:24)
[2023-07-14] MEDS ORDERED: GLUCOSE 10 TAB/TUBE PO PRN (16:24)
[2023-07-14] MEDS ORDERED: CARBOHYDRATES FOR HYPOGLYCEMIA PO PRN (16:24)
[2023-07-14] MEDS ORDERED: GLUCOSE 40% GEL 15 GM TUBE PO PRN (16:24)
[2023-07-14] MEDS ORDERED: GLUCAGON FOR INJ 1 MG VIAL SQ PRN (16:24)
[2023-07-14] MEDS: AMIODARONE 200 MG TAB PO SCH (17:15)
[2023-07-14] MEDS ORDERED: hydrALAZINE HCL 20 MG/ML VIAL IV ONE (17:27)
--- OUTSIDE RECORDS SUMMARY | 2023-07-14 17:51 | External Medical Summary | Summary of Care ---
Author Name Unknown Organization [facility] Address [address] [facility] [place] [address] Phone [phone] Care Team Providers Care Template Worker Name Role Phone Hilario ANDRADE MD, Shiva Kebede Primary Care Provider [phone] Reason for Visit * Reason Onset Date Comments Advice 07/14/2023 Encounter Details Date Type Department Care Team (Late st Contact Info) Description 07/14/2023 Telephone Cardiology, [facility] [address] [place] [address] Feliberto Diggs, [address] [place] [address] Advice Allergies Active Allergy Reactions Criticality Noted Date Comments Bee Venom Edema Other 01/10/2016 Lisinopril Cough 09/04/2016 documented as of this encounter (statuses as of 07/14/2023) Medications Medication Sig Dispensed Refills Start Date [...] as of this encounter (statuses as of 07/14/2023) Active Problems Problem Noted Date Diagnosed Date Wound dehiscence, surgical 06/15/2023 Postoperative wound infection 06/15/2023 Other iron deficiency anemias 05/22/2023 Postoperative anemia due to acute blood loss History of total knee arthroplasty, right 2022 Alcohol abuse 05/11/2023 Atherosclerosis of [place] co ronary artery without angina pectoris [...] as of this encounter (statuses as of 07/14/2023) Resolved Problems Problem Noted Date Diagnosed Date Resolved Date Atherosclerotic heart diseas e of [place] coronary artery with other forms of [...] as of this encounter (statuses as of 07/14/2023) Immunizations Name Administration Dates Next Due COVID-19 mRNA, LNP-s, No Pre serve, 2-Dose Series ([employer]) 05/16/2021,09/23/2020,08/26/2020 Covid-19, Mrna, Lnp-s, Pf, B ivalent, [...] encounter Miscellaneous Notes * Telephone Encounter - Jackson Bassett RN - 07/14/2023 12:34 PM EST Called patient back and offered 07/15/2023 at 2:00pm. [facility] accepted. She states she still might go to the ER. * Telephone Encounter - Jackson Bassett RN - 07/14/2023 12:14 PM EST Patient returned call to the clinic and asked if Dr. Diggs has gotten back to us yet. I explained he didn't but Zoraida CANTU has. I reviewed the message with her from Zoraida Mcnair. She stated she has not been gaining any weight. She stated she gets few palpitations but more concerned withher shortness of breath. I explained she needs to be seen in the ER. She stated she preferred not to do that and wanted seen in clinic today. I explained we have no openings today. She stated she didn't want to increase the furosemide as suggested. She stated she needs seen as this has happened before. * Telephone Encounter - Zoraida Mcnair CRNP - 07/14/2023 11:59 AM EST If patient is having PAF she is protected from a stroke with the coumadin. Are her PAF episodes normally just shortness of breath? Or does she normally feel palpitations? If she is having some mild ankle swelling the shortness of breath could also be from fluid retention. Has she had any weight gain? Can try double lasix x 2-3 days to see if this improves her symptoms. If not, she will need an appt to be evaluated. PEPE Trotter * Telephone Encounter - Remi Sharma LPN - 07/14/2023 9:47 AM EST Patient called in and stated she believes she is having symptoms of being in Afib for the last 2-3 days. Noticed more SOB with activities like doing steps and some minor edema in her ankles but SOB has been worse today. Patient denies chest pain, palpitations and dizziness. At times of call patienthad not taken morning medications yet. Please advise. documented in this encounter Plan of Treatment Upcoming Encounters Date Type Department Care Team (Late st Contact Info) Description 07/15/2023 2:00 PM EST Office Visit Cardiology, [facility] [address] [facility] [place] [address] Zoraida Mcnair CRNP [address] [place] [address] 07/15/2023 2:00 PM EST Cardiac Studies Cardiac Studies [facility], [place] [address] [place] [address] Gwv, Slip Mixer [address] [facility] [place] [address] Gwv, Holter Monitor [address] [facility] [place] [address] 07/23/2023 9:30 AM EST Laboratory Laboratory, [facility] [address] [facility] [place] [phone] [facility] [address] [facility] [place] [address] 07/24/2023 6:15 AM EST [facility] Call Center [phone] [facility] [place] [address] [facility] [address] [facility] [place] [address] 08/13/2023 9:15 AM EST Office Visit Orthopaedics [facility] [address] [facility] [place] [address] Forrest Davidson, DO [address] [facility] [place] [address] 09/30/2023 9:20 AM EDT Office Visit Family Practice [facility] [address] [place] [address] Shiva Rich III, MD [address] [facility] [place] [address] 10/01/2023 3:15 PM EDT Office Visit Hematology/Oncology [facility] [address] [place] [address] Efraín Leone MD [address] [place] [address] 11/12/2023 11:20 AM EDT Office Visit Dermatology [facility] [place] [address] [place] [address] Margarita Figueredo PA-C [address] [place] [phone] 02/25/2024 9:30 AM EDT Imaging Radiology [address] [facility] [place] [address] 04/21/2024 10:30 AM EDT Office Visit Sleep Disorders Ctr [facility] [address] [facility] [place] [id number] Viktoriya White CRNP [address] [facility] [place] [address] Scheduled Procedures Name Priority Associated Diagnoses Date/Ti [...] this encounter Medical Devices Implanted Type Area [employer] Professor Device Identifier Shelf Expiration Date Model / Serial / Lot Knee X3 Ins Pos Cs Sz4 11 - Sn/A - [id number] Implanted:Qty: 1 on 05/11/2023 by Forrest Davidson, at OR [facility] Right: Knee FRANNIE : ORTHOPAEDICS [...] Advance Directives occurred with: Patient Care Teams Template Worker Relationship Specialty Start Date End Date Shiva Rich III, MD [address] [facility] [place] [address] PCP - General Family Medicine 09/10/18 documented as of this encounter
[2023-07-14] MEDS ORDERED: ALBUT/IPRATROP 3MG/0.5MG NEB 3 ML VIAL ONE (17:54)
[2023-07-14] MEDS: ALBUT/IPRATROP 3MG/0.5MG NEB 3 ML VIAL NEB SCH ×2 (18:15→22:42)
[2023-07-14] MEDS: INSULIN ASPART PER UNIT CHARGE SC SCH ×2 (18:47→22:23)
[2023-07-14] MEDS: ATORVASTATIN 40 MG TAB PO SCH (22:45)
[2023-07-14] MEDS: MAGNESIUM CHLORIDE W/CALCIUM 64MG DELAYED REL TAB PO SCH (22:46)
[2023-07-14] MEDS ORDERED: ALBUT/IPRATROP 3MG/0.5MG NEB 3 ML VIAL NEB PRN (23:21)
[2023-07-15 04:45] LABS: Hematocrit (blood only) 25.8 % (37.0-47.0); Hemoglobin 8.5 g/dl (12.0-16.0); Mean Corpuscular Hemoglobin 28.1 pg (25.0-34.0); Mean Corpuscular Hgb Conc 32.9 g/dL (32.0-36.0); Mean Corpuscular Volume 85.1 fL (80.0-100.0); Mean Platelet Volume 9.9 fL (9.4-12.4); Platelet Count 246 K/uL (130-400); RDW Coefficient of Variation 14.3 % (11.5-14.5); RDW Standard Deviation 44.2 fL (36.4-46.3); Red Blood Count 3.03 M/uL (4.20-5.40); White Blood Count 4.81 K/ul (4.8-10.8)
[2023-07-15 04:56] LABS: BUN Creatinine Ratio 18.8 (10-20); Calcium 8.7 mg/dl (8.6-10.3); Chol HDL Ratio 1.9 (0-5); Est GFR (African American) 81.6 ml/min; Est GFR (Non-African American) 70.4 ml/min; Potassium 3.7 mmol/L (3.5-5.1)
[2023-07-15 05:21] LABS: INR 3.4 (0.9-1.1); Prothrombin Time 34.2 Seconds (9.0-12.0)
[2023-07-15 07:30] LABS: Estimated Average Glucose 103 mg/dl; Hemoglobin A1C 5.2 % (4.5-5.6)
[2023-07-15] MEDS: INSULIN ASPART PER UNIT CHARGE SC SCH ×4 (08:16→20:08)
[2023-07-15] MEDS: MAGNESIUM CHLORIDE W/CALCIUM 64MG DELAYED REL TAB PO SCH ×2 (08:17→19:54)
[2023-07-15] MEDS: FUROSEMIDE 40 MG/4 ML VIAL IV SCH ×2 (08:17→17:16)
[2023-07-15] MEDS: METOPROLOL SUCC 25MG EXT REL TAB PO SCH (08:17)
[2023-07-15] MEDS: ASPIRIN 81 MG ECTAB PO SCH (08:17)
[2023-07-15] MEDS: OXYBUTYNIN CHLORIDE XL 5 MG TABCR PO SCH (08:18)
[2023-07-15] MEDS: MULTIVITAMIN TAB PO SCH (08:18)
[2023-07-15] MEDS: VIBEGRON 75 MG TAB PO SCH (08:18)
[2023-07-15] MEDS: EZETIMIBE 10 MG TAB PO SCH (08:19)
[2023-07-15] MEDS: FERROUS SULFATE 325 MG TAB PO SCH (08:19)
[2023-07-15] MEDS: AMIODARONE 200 MG TAB PO SCH ×2 (08:19→17:14)
[2023-07-15] MEDS: DULoxetine HCL 60 MG CAP PO SCH (08:19)
[2023-07-15] MEDS: CYANOCOBALAMIN (B-12) 500 MCG TABLET PO SCH (08:19)
[2023-07-15] MEDS: LOSARTAN POTASSIUM 50 MG TAB PO SCH (08:19)
--- NOTE | 2023-07-15 13:32 | Cardiology Consultation ---
Date of Consultation July 15, 2023 Assessment & Plan (1) HFrEF (heart failure with reduced ejection fraction): -Agree with furosemide 40 mg IV twice daily. -Follow kidney function and electrolytes (2) Paroxysmal atrial fibrillation: -INR on presentation was 5.4, INR 3.4 today -Per outpatient chart, home Coumadin regimen is 7.5 mg every Thursday, and 5 mg the remaining days of the week -Recommend 4 mg today -Continue amiodarone 200 mg twice daily, chronic dose, and metoprolol succinate 25 mg daily History of Present Illness Attending Physician: Seble Fairbanks MD History of Present Illness Nenita Fleming is a 67-year-old female seen in cardiology consultation per the request of Dr. Fairbanks for the evaluation of congestive heart failure. Patient notes recent progressive shortness of breath and worsening lower extremity edema despite taking her outpatient furosemide 40 mg daily without interruption. She received furosemide 40 mg yesterday afternoon in the emergency room and another dose of 40 mg this morning at 817. A Woody catheter is in place draining clear yellow urine, with 2 L of urine output documented thus far today. Patient denies any recent palpitations. History: Heart failure with preserved ejection fraction Paroxysmal atrial fibrillation for which she underwent direct-current cardioversion in April,-treated with amiodarone and warfarin Stroke with history of right-sided carotid arterial occlusion Sinus arrest during presumed hours of sleep in the setting of sleep apnea Type 2 diabetes mellitus Dyslipidemia IgG lambda paraproteinemia Mild luminal irregularities noted on cardiac catheterization, 2021 Allergies Allergy/AdvReac Type Severity Reaction Status Date / Time bee venom protein (honey bee) Allergy Intermediate SWELLING - Verified 04/25/22 20:22 LOCALIZED AT [facility] lisinopril AdvReac Mild COUGH Verified 04/25/22 20:22 Home Medications Medication Instructions Recorded Confirmed Type atorvastatin 80 mg tablet 80 mg PO QPM 03/07/19 07/14/23 History ezetimibe 10 mg tablet 10 mg PO QAM 03/07/19 07/14/23 History metformin 500 mg tablet 1,000 mg PO BIDM 03/07/19 07/14/23 History metoprolol succinate 25 mg 12.5 mg PO QAM 11/20/21 07/14/23 History tablet,extended release 24 hr aspirin 81 mg tablet,delayed 81 mg PO QAM 04/25/22 07/14/23 History release duloxetine 60 mg capsule,delayed 120 mg PO QAM 04/25/22 07/14/23 History release losartan 100 mg tablet 100 mg PO QAM 04/25/22 07/14/23 History mirabegron 50 mg tablet,extended 50 mg PO QAM 04/25/22 07/14/23 History release 24 hr (Myrbetriq) warfarin 5 mg tablet 5 mg PO UD 04/25/22 07/14/23 History amiodarone 200 mg tablet 200 mg PO BIDM #60 tabs 04/29/22 07/14/23 Rx furosemide 40 mg tablet 40 mg PO DAILY #30 tabs 04/29/22 07/14/23 Rx magnesium chloride 64 mg 64 mg PO BID #30 tabs 04/29/22 07/14/23 Rx (magnesium chloride) tablet,delayed release (Mag 64) ferrous sulfate 325 mg (65 mg 325 mg PO DAILY 07/14/23 07/14/23 History iron) tablet mecobalamin (vitamin B12) 1,000 1,000 mcg PO DAILY 07/14/23 07/14/23 History mcg chewable tablet (B12 Active) multivitamin 1 tab PO DAILY 07/14/23 07/14/23 History solifenacin 5 mg tablet 5 mg PO QAM 07/14/23 07/14/23 History Patient History Medical History CHF (congestive heart failure) EF 30-35% Angioleiomyoma On anticoagulant therapy Morbid obesity with BMI of 45.0-49.9, adult Diabetes mellitus, type 2 NIDDM History of skin cancer History of colon cancer S/p colon resection (2016) - no chemo/radiation CVA (cerebral vascular accident) DECEMBER 2016 - L SIDED WEAKNESS/NUMBNESS, LACK OF COORDINATION Hyperlipidemia Hypertension Sleep apnea CPAP Paroxysmal atrial fibrillation On Coumadin Internal carotid artery stenosis 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 Diggs Hx of coronary angioplasty History of anesthesia reaction 12/2016 - COLECTOMY - [facility] - STROKE LIKE SYMPTOMS UPON COMING OUT OF ANESTHESIA - DX CVA FOLLOWING DAY History of Mohs micrographic surgery for skin cancer History of colectomy History of colonoscopy with polypectomy Family History Unknown Hypertension Coronary heart disease Social History Smoking Status: Never smoker Second Hand Exposure: No; Do You Dip or Chew Tobacco: No; Hx Alcohol Use: Yes Alcohol type: hard liquor Alcohol type Comment: 2 drinks daily Hx Substance Use: No Preferred Language: Sri Lankan Communication Ability: Effective Senior Net Application Developer Required: No Beliefs That Will Affect Care: None marital status: Current Living Situation: Spouse Feels Safe at Home: Yes Assistive Devices: Cane, CPAP and Oxygen - at Night Review of Systems Review of Systems: All systems reviewed & are unremarkable except as noted in HPI & below Physical Exam Constitutional: WD/WN, vitals as above Respiratory: no labored breathing Auscultation: + diminished lung sounds (Mildly decreased breath sounds bilaterally at the bases); no rales Cardiovascular: Rate/Rhythm: regular rate and regular rhythm Heart Sounds: no murmur Extremities: + edema (1+ bilateral lower extremity edema) Gastrointestinal (Abdomen): normal bowel sounds, soft, nontender, no hepatosplenomegaly Neurologic: PERRL, EOMI, accommodation nl, no face palsy, no dysarthria Results & Data Vital Signs (Past 12 Hours) Vital Signs Temp Pulse Pulse Resp BP Pulse Ox O2 Del Method 07/15/23 11:02 36.3 C L 49 L 17 161/76 H 92 Nasal Cannula 07/15/23 09:00 Room Air 07/15/23 08:00 51 L 07/15/23 07:23 36.3 C L 54 L 19 170/73 H 90 Nasal Cannula 07/15/23 03:25 52 L 07/15/23 02:53 36.7 C 50 L 22 173/73 H 90 CPAP 07/15/23 02:29 24 97 O2 Flow Rate 07/15/23 11:02 2 07/15/23 09:00 07/15/23 08:00 07/15/23 07:23 2 07/15/23 03:25 07/15/23 02:53 07/15/23 02:29 2 Laboratory Results Cardiac Enzymes 07/14/23 Range/Units 13:57 AST 25 (13-39) U/L Troponin I High Sens 8.4 (0-14) pg/ml B-Natriuretic Peptide 303 H (0-100) pg/ml Coagulation 07/14/23 07/15/23 Range/Units 13:57 04:07 PT 52.9 H 34.2 H (9.0-12.0) Seconds APTT 56 H (21-31) Seconds B-Natriuretic Peptide 303 H (0-100) pg/ml Lipids 07/15/23 Range/Units 04:07 Triglycerides 79 (0-150) mg/dl Cholesterol 96 (0-200) mg/dl HDL Cholesterol 50 mg/dl Cholesterol/HDL Ratio 1.9 (0-5) CBC 07/14/23 07/15/23 Range/Units 13:57 04:07 WBC 6.50 4.81 (4.8-10.8) K/ul RBC 3.31 L 3.03 L (4.20-5.40) M/uL Hgb 9.3 L 8.5 L (12.0-16.0) g/dl Hct 28.6 L 25.8 L (37.0-47.0) % Plt Count 289 246 (130-400) K/uL Neut # (Auto) 4.56 (1.40-6.50) K/uL Lymph # (Auto) 1.13 L (1.20-3.40) K/uL [place] # (Auto) 0.64 H (0.11-0.59) K/uL Eos # (Auto) 0.13 (0.00-0.50) K/uL Baso # (Auto) 0.02 (0.00-0.20) K/uL Comprehensive Metabolic Panel 07/14/23 07/15/23 Range/Units 13:57 04:07 Sodium 136 137 (136-145) mmol/L Potassium 4.2 3.7 (3.5-5.1) mmol/L Chloride 103 102 (98-107) mmol/L Carbon Dioxide 25 27 (21-32) mmol/L BUN 15 16 (6-23) mg/dl Creatinine 0.76 0.85 (0.6-1.2) mg/dl Glucose 127 H 100 H (70-99(Fasting)) mg/dl Calcium 9.1 8.7 (8.6-10.3) mg/dl AST 25 (13-39) U/L ALT 30 (7-52) U/L Alkaline Phosphatase 89 (34-104) U/L Total Protein 7.1 (6.0-8.3) gm/dl Albumin 3.7 (3.4-5.0) gm/dl Diagnostic Findings Transthoracic echocardiogram performed 07/22/2022: Normal left ventricular wall motion, LVEF 55 to 59% Mild concentric left ventricular perjury Mild mitral annular calcification, mild mitral regurgitation EKG performed 07/14/2023 and interpret independently: Sinus bradycardia 52 bpm with first-degree AV block, KY interval 220 ms Chest x-ray, cardiomegaly with mild interstitial pulmonary edema and small bilateral pleural effusions per radiology report Asymmetric lung airspace opacities including possible 3.9 cm nodular density in the mid lung. Radiology report describes recommended follow-up chest x-ray
[2023-07-15] MEDS ORDERED: POTASSIUM CHLORIDE CRTAB 20 MEQ TABCR PO STA (13:44)
--- NOTE | 2023-07-15 14:18 | Hospitalist Progress Note ---
Date of Service July 15, 2023 Assessment & Plan (1) CHF (congestive heart failure): (2) Idiopathic cardiomyopathy: (3) Paroxysmal atrial fibrillation: (4) Hypertension: (5) Hyperlipidemia: (6) CVA (cerebral vascular accident): (7) Fall: (8) Type 2 diabetes mellitus: (9) Hypothyroidism: (10) SALVADOR (obstructive sleep apnea): (11) Obesity (BMI 30-39.9): Plan This is a 59-year-old female with PMHx of paroxysmal A-fib on Coumadin, chronic systolic CHF with preserved EF, HTN, HLD, history of CVA, history of colon cancer status post partial colon resection, obesity, hypothyroidism, DM type II, SALVADOR wearing CPAP at bedtime who presents to the hospital with 3 to 4 days of increasing shortness of breath. Acute on Chronic CHF: Idiopathic cardiomyopathy: Hypertension: Hyperlipidemia: Concern for acute systolic CHF exacerbation with increased shortness of breath, swelling of ankles, increased weight Follows with [facility] cardiology Troponin was negative at 8.4, BNP 303 EKG reviewed as above showing sinus bradycardia with 1st degree AV block, HR in 50s. Rate controlled on home medications Echo repeated and pending Lasix 40 mg IV given in the ER, continue 40 mg IV BID Dry weight of 208, 220 on admission. Daily weights, strict I/Os, fluid restriction with additional lasix dosing, purwick in place. Oxygen support as needed and wean as tolerated Monitor renal function/electrolytes Continue losartan, metoprolol succinate Cardiology consult- appreciate recs Paroxysmal atrial fibrillation: On amiodarone, metoprolol, warfarin for anticoagulation INR 5.4 on admission Coumadin dosing at home: 7.5 mg on Fridays and 5 mg all other days Held day of admission. HTN Continue home losartan and metoprolol HLD Continue ezetimibe, statin CVA (cerebral vascular accident): Cont atorvastatin and aspirin Fall fall with shortness of breath as per HPI, bruising present on R lower back and flank region, due to supratherapeutic INR. Fall precautions, PT/OT consults. DMII Last A1c: 7.1 on 04/26, no recheck at this time Hold metformin NovoLog sliding scale per protocol Monitor BGs Hypothyroidism Chronic stable continue levothyroxine SALVADOR (obstructive sleep apnea) Cont CPAP HS, does not typically require supplemental O2 at baseline during the day Urinary Incontinence/Freq Cont oxybutynin and gemtesa DVT PPx: Coumadin Diet: Heart healthy/diabetic diet, fluid restriction CODE: Full code Admission and Anticipated Discharge Date Admission Date: July 14, 2023 Subjective Pt seen in the AM, sitting in chair at bedside. States that she is only SOB when up and ambulatory. Denied chest pain or palpitations at that time. Feels like the lower extremity swelling is decreasing. Review of Systems Review of Systems: All systems reviewed & are unremarkable except as noted in Subjective Physical Exam Physical Exam: General: Alert, oriented. No acute distress Skin: bruises on L flank Psych: Appropriate mood and affect Neuro: No gross deficits HEENT: NC/AT Chest: Nontender to palpation. CV: RRR Resp: Breath sounds clear bilaterally, no increased effort of breathing. Abdomen: Soft, nontender, nondistended. Extremities: edema in lower extremities bilaterally. Results & Data Results & Data Vital Signs (Past 12 Hours) Vital Signs Temp Pulse Pulse Resp BP Pulse Ox O2 Del Method 07/15/23 11:02 36.3 C L 49 L 17 161/76 H 92 Nasal Cannula 07/15/23 09:00 Room Air 07/15/23 08:00 51 L 07/15/23 07:23 36.3 C L 54 L 19 170/73 H 90 Nasal Cannula 07/15/23 03:25 52 L 07/15/23 02:53 36.7 C 50 L 22 173/73 H 90 CPAP 07/15/23 02:29 24 97 O2 Flow Rate 07/15/23 11:02 2 07/15/23 09:00 07/15/23 08:00 07/15/23 07:23 2 07/15/23 03:25 07/15/23 02:53 07/15/23 02:29 2
[2023-07-15] MEDS ORDERED: WARFARIN SOD 4 MG TAB PO ONE (16:00)
[2023-07-15] MEDS: ATORVASTATIN 40 MG TAB PO SCH (19:55)
[2023-07-16 06:15] LABS: Basophils # (auto) 0.02 K/uL (0.00-0.20); Basophils % (auto) 0.5 %; Eosinophils % (auto) 4.6 %; Hematocrit (blood only) 28.1 % (37.0-47.0); Hemoglobin 8.9 g/dl (12.0-16.0); Immature Granulocytes # (auto) 0.01 K/uL (0.01-0.20); Immature Granulocytes % (auto) 0.2 %; Lymphocytes # (auto) 1.24 K/uL (1.20-3.40); Lymphocytes % (auto) 28.4 %; Mean Corpuscular Hemoglobin 27.6 pg (25.0-34.0); Mean Corpuscular Hgb Conc 31.7 g/dL (32.0-36.0); Mean Corpuscular Volume 87.3 fL (80.0-100.0); Mean Platelet Volume 10.2 fL (9.4-12.4); Monocytes # (auto) 0.45 K/uL (0.11-0.59); Monocytes % (auto) 10.3 %; Neutrophils # (auto) 2.45 K/uL (1.40-6.50); Platelet Count 254 K/uL (130-400); RDW Coefficient of Variation 14.5 % (11.5-14.5); RDW Standard Deviation 45.8 fL (36.4-46.3); Red Blood Count 3.22 M/uL (4.20-5.40); White Blood Count 4.37 K/ul (4.8-10.8)
[2023-07-16 06:17] LABS: Albumin Globulin Ratio 1.1 (0.9-2); Albumin Level 3.5 gm/dl (3.4-5.0); BUN Creatinine Ratio 19.8 (10-20); Bilirubin,Total 0.8 mg/dl (0.2-1.0); Calcium 8.9 mg/dl (8.6-10.3); Creatinine Clr Calc Pharmacy 74.9 ml/min; Est GFR (African American) 86.5 ml/min; Est GFR (Non-African American) 74.6 ml/min; Globulin 3.1 gm/dl (2.5-4.0); Magnesium 1.5 mg/dl (1.7-2.4); Phosphorus 4.7 mg/dl (2.5-4.9); Potassium 3.9 mmol/L (3.5-5.1); Total Protein 6.6 gm/dl (6.0-8.3)
[2023-07-16 06:26] LABS: INR 2.1 (0.9-1.1); Prothrombin Time 21.7 Seconds (9.0-12.0)
[2023-07-16 06:31] LABS: Thyroid Stimulating Hormone 3.111 uIu/ml (0.300-4.500)
[2023-07-16] MEDS: FUROSEMIDE 40 MG/4 ML VIAL IV SCH ×2 (08:37→17:29)
[2023-07-16] MEDS: INSULIN ASPART PER UNIT CHARGE SC SCH ×4 (08:37→20:15)
[2023-07-16] MEDS: LOSARTAN POTASSIUM 50 MG TAB PO SCH (08:38)
[2023-07-16] MEDS: DULoxetine HCL 60 MG CAP PO SCH (08:38)
[2023-07-16] MEDS: CYANOCOBALAMIN (B-12) 500 MCG TABLET PO SCH (08:38)
[2023-07-16] MEDS: OXYBUTYNIN CHLORIDE XL 5 MG TABCR PO SCH (08:38)
[2023-07-16] MEDS: MAGNESIUM CHLORIDE W/CALCIUM 64MG DELAYED REL TAB PO SCH ×2 (08:38→20:16)
[2023-07-16] MEDS: AMIODARONE 200 MG TAB PO SCH (08:38)
[2023-07-16] MEDS: VIBEGRON 75 MG TAB PO SCH (08:38)
[2023-07-16] MEDS: EZETIMIBE 10 MG TAB PO SCH (08:39)
[2023-07-16] MEDS: METOPROLOL SUCC 25MG EXT REL TAB PO SCH (08:39)
[2023-07-16] MEDS: ASPIRIN 81 MG ECTAB PO SCH (08:39)
[2023-07-16] MEDS: MULTIVITAMIN TAB PO SCH (08:39)
[2023-07-16] MEDS ORDERED: POTASSIUM CHLORIDE CRTAB 20 MEQ TABCR PO SCH (09:00)
[2023-07-16] MEDS: MAGNESIUM SULFATE / D5W 1 GM/100 ML BAG IV SCH ×2 (10:07→12:20)
[2023-07-16] MEDS: FERROUS SULFATE 325 MG TAB PO SCH (12:19)
--- NOTE | 2023-07-16 14:45 | Hospitalist Progress Note ---
Date of Service July 16, 2023 Assessment & Plan (1) CHF (congestive heart failure): (2) Idiopathic cardiomyopathy: (3) Paroxysmal atrial fibrillation: (4) Hypertension: (5) Hyperlipidemia: (6) CVA (cerebral vascular accident): (7) Fall: (8) Type 2 diabetes mellitus: (9) Hypothyroidism: (10) SALVADOR (obstructive sleep apnea): (11) Obesity (BMI 30-39.9): Plan This is a 59-year-old female with PMHx of paroxysmal A-fib on Coumadin, chronic systolic CHF with preserved EF, HTN, HLD, history of CVA, history of colon cancer status post partial colon resection, obesity, hypothyroidism, DM type II, SALVADOR wearing CPAP at bedtime who presents to the hospital with 3 to 4 days of increasing shortness of breath. Acute on Chronic CHF: Idiopathic cardiomyopathy: Hypertension: Hyperlipidemia: Concern for acute systolic CHF exacerbation with increased shortness of breath, swelling of ankles, increased weight Follows with [facility] cardiology Troponin was negative at 8.4, BNP 303 EKG reviewed as above showing sinus bradycardia with 1st degree AV block, HR in 50s. Rate controlled on home medications Echo repeated and pending Lasix 40 mg IV given in the ER, continue 40 mg IV BID Dry weight of 208, 220 on admission. Daily weights, strict I/Os, fluid restriction with additional lasix dosing, purwick in place. Oxygen support as needed and wean as tolerated Monitor renal function/electrolytes Continue losartan, metoprolol succinate Cardiology consult- appreciate recs Paroxysmal atrial fibrillation: On amiodarone, metoprolol, warfarin for anticoagulation INR 5.4 on admission Coumadin dosing at home: 7.5 mg on Fridays and 5 mg all other days Held day of admission. HTN Continue home losartan and metoprolol HLD Continue ezetimibe, statin CVA (cerebral vascular accident): Cont atorvastatin and aspirin Fall fall with shortness of breath as per HPI, bruising present on R lower back and flank region, due to supratherapeutic INR. Fall precautions, PT/OT consults. DMII Last A1c: 7.1 on 04/26, no recheck at this time Hold metformin NovoLog sliding scale per protocol Monitor BGs Hypothyroidism Chronic stable continue levothyroxine SALVADOR (obstructive sleep apnea) Cont CPAP HS, does not typically require supplemental O2 at baseline during the day Urinary Incontinence/Freq Cont oxybutynin and gemtesa DVT PPx: Coumadin Diet: Heart healthy/diabetic diet, fluid restriction CODE: Full code Admission and Anticipated Discharge Date Admission Date: July 14, 2023 Subjective Pt with questions about her symptoms and dx. Wants to know how to prevent this and not allow it to affect her. States that the swelling in her legs are going down. Review of Systems Review of Systems: All systems reviewed & are unremarkable except as noted in Subjective Physical Exam Physical Exam: General: Alert, oriented. No acute distress Skin: bruises on L flank Psych: Appropriate mood and affect Neuro: No gross deficits HEENT: NC/AT Chest: Nontender to palpation. CV: RRR Resp: Breath sounds clear bilaterally, no increased effort of breathing. Abdomen: Soft, nontender, nondistended. Extremities: edema in lower extremities bilaterally. Results & Data Results & Data Vital Signs (Past 12 Hours) Vital Signs Temp Pulse Pulse Resp BP Pulse Ox O2 Del Method 07/16/23 11:56 36.5 C 45 L 17 148/59 H 97 Nasal Cannula 07/16/23 09:00 Nasal Cannula 07/16/23 08:00 45 L 07/16/23 07:57 36.6 C 51 L 19 174/69 H 96 Nasal Cannula 07/16/23 03:30 67 19 95 07/16/23 03:29 36.5 C 65 18 156/74 H 94 CPAP O2 Flow Rate 07/16/23 11:56 2 07/16/23 09:00 2 07/16/23 08:00 07/16/23 07:57 2 07/16/23 03:30 3 07/16/23 03:29
--- NOTE | 2023-07-16 15:57 | Cardiology Progress Note ---
Date of Service July 16, 2023 Assessment & Plan (1) (HFpEF) heart failure with preserved ejection fraction: (2) Paroxysmal atrial fibrillation: (3) HTN, goal below 130/80: (4) Bradycardia: Plan Continue IV furosemide Discontinue potassium chloride Add spironolactone 25 mg/day for heart failure and hypertension Daily metabolic panels Supplement magnesium. Maintain normomagnesemia and normokalemia. Decrease amiodarone to 200 mg once a day secondary to bradycardia Continue the reduced dose of metoprolol succinate, 12.5 mg once a day Continue Warfarin, losartan, and atorvastatin and ezetimibe. No amlodipine, RE: fluid retention Avoid QTc prolonging medications if able. Admission and Anticipated Discharge Date Admission Date: July 14, 2023 Supervising Physician Co-Signing Physician Notes 59-year-old female seen and examined at the bedside. Feeling better since admission. Fluid balance -1.6 L over the past 24 hours. Telemetry revealing sinus bradycardia with heart rate in the upper 40s and low 50s. Denies lightheadedness, dizziness, syncope, or near syncope. Denies chest pain or palpitations. PE: VSS. Bradycardia. General: NAD, awake alert and oriented x 3. Heart: Regular rhythm, normal S1-S2. No murmur. Lungs: Diminished breath sounds at the bases bilateral. Positive bilateral basilar rales. Extremities: Mild bilateral pedal and pretibial edema. A/P: Agree with above PA-C history, physical exam, assessment and plan. Continue IV diuretic therapy. Monitor fluid balance, daily weight, GFR, and electrolytes. Agree with discontinuation of amlodipine and addition of low-dose spironolactone. Continue low-dose metoprolol at this time. Monitor telemetry. Subjective Patient seen and examined. Chart, medications, and telemetry reviewed. Feeling some better. Edema has improved. I/O Balance: -1800 mL. -1755 mL. -900 mL (-4,455 mL's overall) BP hypertensive throughout. Telemetry with bradycardia in the 40's and 50's. Echo on 07/15/2023: Normal LV wall motion. EF 60-65%. Mild concentric LVH. PASP 39 mmHg. Aortic sclerosis without significant stenosis. Review of Systems Review of Systems: No chest pain. No overt palpitations. + CLAYTON. No orthopnea or PND. Edema improved. No positional dizziness. No subjective fevers or chills. No melena, hematochezia, or hematuria. Woody catheter in place. Complete Review of Systems is as stated above, negative, or noncontributory. Physical Exam Physical Exam: General: A&Ox3. NAD. HENT: Normocephalic. Atraumatic. Eyes: PER. Conjunctiva pink, sclera clear. Neck: + JVD. No carotid bruits. Heart: Regular at 50 bpm. Grade II/ systolic murmur. No diastolic murmur. No rub. Lungs: Bibasilar rales. No wheeze. Abdomen: +BS. Soft. Nontender. No masses or organomegaly. Extremities: 1-2+ edema. No clubbing. No cyanosis. Limited neurological examination is without focal deficits. Pulses: radial=2/4, posterior tibial=1/4. Results & Data Vital Signs (Past 12 Hours) Vital Signs Temp Pulse Pulse Resp BP Pulse Ox O2 Del Method 07/16/23 15:54 36.4 C L 47 L 18 155/74 H 97 Nasal Cannula 07/16/23 11:56 36.5 C 45 L 17 148/59 H 97 Nasal Cannula 07/16/23 09:00 Nasal Cannula 07/16/23 08:00 45 L 07/16/23 07:57 36.6 C 51 L 19 174/69 H 96 Nasal Cannula O2 Flow Rate 07/16/23 15:54 2 07/16/23 11:56 2 07/16/23 09:00 2 07/16/23 08:00 07/16/23 07:57 2 Laboratory Results Cardiac Enzymes 07/16/23 Range/Units 05:27 AST 16 (13-39) U/L Coagulation 07/16/23 Range/Units 05:27 PT 21.7 H (9.0-12.0) Seconds CBC 07/16/23 Range/Units 05:27 WBC 4.37 L (4.8-10.8) K/ul RBC 3.22 L (4.20-5.40) M/uL Hgb 8.9 L (12.0-16.0) g/dl Hct 28.1 L (37.0-47.0) % Plt Count 254 (130-400) K/uL Neut # (Auto) 2.45 (1.40-6.50) K/uL Lymph # (Auto) 1.24 (1.20-3.40) K/uL White # (Auto) 0.45 (0.11-0.59) K/uL Eos # (Auto) 0.20 (0.00-0.50) K/uL Baso # (Auto) 0.02 (0.00-0.20) K/uL Comprehensive Metabolic Panel 07/16/23 Range/Units 05:27 Sodium 139 (136-145) mmol/L Potassium 3.9 (3.5-5.1) mmol/L Chloride 103 (98-107) mmol/L Carbon Dioxide 29 (21-32) mmol/L BUN 16 (6-23) mg/dl Creatinine 0.81 (0.6-1.2) mg/dl Glucose 99 (70-99(Fasting)) mg/dl Calcium 8.9 (8.6-10.3) mg/dl AST 16 (13-39) U/L ALT 22 (7-52) U/L Alkaline Phosphatase 80 (34-104) U/L Total Protein 6.6 (6.0-8.3) gm/dl Albumin 3.5 (3.4-5.0) gm/dl Intake and Output 07/16/23 07/16/23 07/16/23 06:59 14:59 22:59 Intake Total 300 / 1120 700 / 700 Output Total 700 / 2875 1600 / 1600 Balance -400 / -1755 -900 / -900 Intake: IV 200 / 200 Magnesium Sulfate / D5w 1 gm In 200 / 200 100 ml @ 50 mls/hr IV Q2H [facility] Rx#:[id number] Oral 300 / 1120 500 / 500 Output: Urine Amount (Catheter) 700 / 2875 1600 / 1600 Woody/Indwelling 700 / 2875 1600 / 1600 Other: Weight 94.5 kg Weight Measurement Method Standing Scale Diagnostic Findings LFT's and TFT's within normal range this admission (on amiodarone)
[2023-07-16] MEDS: SPIRONOLACTONE 25 MG TAB PO SCH (17:28)
[2023-07-16] MEDS: WARFARIN SOD 5 MG TAB PO SCH (17:29)
[2023-07-16] MEDS: ATORVASTATIN 40 MG TAB PO SCH (20:16)
[2023-07-17 06:32] LABS: Basophils # (auto) 0.02 K/uL (0.00-0.20); Basophils % (auto) 0.4 %; Eosinophils # (auto) 0.21 K/uL (0.00-0.50); Hematocrit (blood only) 27.7 % (37.0-47.0); Hemoglobin 9.1 g/dl (12.0-16.0); Immature Granulocytes # (auto) 0.02 K/uL (0.01-0.20); Immature Granulocytes % (auto) 0.4 %; Lymphocytes # (auto) 1.17 K/uL (1.20-3.40); Lymphocytes % (auto) 22.5 %; Mean Corpuscular Hemoglobin 28.1 pg (25.0-34.0); Mean Corpuscular Hgb Conc 32.9 g/dL (32.0-36.0); Mean Corpuscular Volume 85.5 fL (80.0-100.0); Mean Platelet Volume 9.8 fL (9.4-12.4); Monocytes # (auto) 0.54 K/uL (0.11-0.59); Monocytes % (auto) 10.4 %; Neutrophils # (auto) 3.23 K/uL (1.40-6.50); Neutrophils % (auto) 62.3 %; Platelet Count 286 K/uL (130-400); RDW Coefficient of Variation 14.6 % (11.5-14.5); RDW Standard Deviation 44.9 fL (36.4-46.3); Red Blood Count 3.24 M/uL (4.20-5.40); White Blood Count 5.19 K/ul (4.8-10.8)
[2023-07-17 06:47] LABS: Albumin Globulin Ratio 1.1 (0.9-2); Albumin Level 3.6 gm/dl (3.4-5.0); BUN Creatinine Ratio 21.3 (10-20); Bilirubin,Total 0.6 mg/dl (0.2-1.0); Calcium 9.2 mg/dl (8.6-10.3); Est GFR (African American) 72.2 ml/min; Est GFR (Non-African American) 62.3 ml/min; Globulin 3.2 gm/dl (2.5-4.0); Magnesium 1.9 mg/dl (1.7-2.4); Phosphorus 5.1 mg/dl (2.5-4.9); Potassium 4.1 mmol/L (3.5-5.1); Total Protein 6.8 gm/dl (6.0-8.3)
[2023-07-17 06:55] LABS: INR 1.6 (0.9-1.1); Prothrombin Time 17.5 Seconds (9.0-12.0)
[2023-07-17] MEDS: INSULIN ASPART PER UNIT CHARGE SC SCH ×4 (08:49→20:32)
[2023-07-17] MEDS: MAGNESIUM CHLORIDE W/CALCIUM 64MG DELAYED REL TAB PO SCH ×2 (08:50→20:04)
[2023-07-17] MEDS: OXYBUTYNIN CHLORIDE XL 5 MG TABCR PO SCH (08:52)
[2023-07-17] MEDS: VIBEGRON 75 MG TAB PO SCH (08:52)
[2023-07-17] MEDS: LOSARTAN POTASSIUM 50 MG TAB PO SCH (08:52)
[2023-07-17] MEDS: MULTIVITAMIN TAB PO SCH (08:53)
[2023-07-17] MEDS: ASPIRIN 81 MG ECTAB PO SCH (08:53)
[2023-07-17] MEDS: METOPROLOL SUCC 25MG EXT REL TAB PO SCH (08:53)
[2023-07-17] MEDS: CYANOCOBALAMIN (B-12) 500 MCG TABLET PO SCH (08:54)
[2023-07-17] MEDS: DULoxetine HCL 60 MG CAP PO SCH (08:54)
[2023-07-17] MEDS: EZETIMIBE 10 MG TAB PO SCH (08:55)
[2023-07-17] MEDS: SPIRONOLACTONE 25 MG TAB PO SCH (08:55)
[2023-07-17] MEDS: FUROSEMIDE 40 MG/4 ML VIAL IV SCH ×2 (08:58→16:16)
[2023-07-17] MEDS ORDERED: AMIODARONE 200 MG TAB PO SCH (09:00)
--- NOTE | 2023-07-17 11:12 | Cardiology Progress Note ---
Date of Service July 17, 2023 Assessment & Plan (1) (HFpEF) heart failure with preserved ejection fraction: (2) Paroxysmal atrial fibrillation: (3) HTN, goal below 130/80: (4) Bradycardia: Plan Continue IV furosemide and spironolactone Resume lower dose amlodipine, 2.5 mg/day for BP. Continue amiodarone 200 mg/day, metoprolol succinate 12.5 mg/day (dose reduced due to bradycardia), Warfarin, losartan, atorvastatin and ezetimibe. Avoid QTc prolonging medications if able. Admission and Anticipated Discharge Date Admission Date: July 14, 2023 Supervising Physician Co-Signing Physician Notes 59-year-old female seen and examined at the bedside. Continues to improve clinically. Fluid balance -1 L over the past 24 hours. Renal function remains stable. Telemetry revealing sinus bradycardia, unchanged. No chest pain or palpitations. Blood pressure elevated this morning. PE: VSS. Bradycardia. Hypertensive. General: NAD, awake alert and oriented x 3. Heart: Regular rhythm, normal S1-S2. No murmur. Lungs: Diminished breath sounds at the bases bilateral. Positive bilateral basilar rales. Extremities: Mild bilateral pedal and pretibial edema. A/P: Agree with above PA-C history, physical exam, assessment and plan. Continue IV diuretic therapy and spironolactone. Monitor fluid balance, daily weight, GFR, and electrolytes. Restart low-dose amlodipine to improve blood pressure control. Reduce amiodarone to 100 mg daily. Continue low-dose metoprolol at this time. Monitor telemetry. Subjective Patient seen and examined. Chart, medications, and telemetry reviewed. Feeling some better. Edema has improved. I/O Balance: -1800 mL. -1755 mL. -1680 mL (-5,235 mL's overall) Blood pressure remains hypertensive. Telemetry: Sinus bradycardia in the 50's. Echo on 07/15/2023: Normal LV wall motion. EF 60-65%. Mild concentric LVH. PASP 39 mmHg. Aortic sclerosis without significant stenosis. Review of Systems Review of Systems: No chest pain. No overt palpitations. + CLAYTON. No orthopnea or PND. Edema improved. No positional dizziness. No subjective fevers or chills. No melena, hematochezia, or hematuria. Woody catheter in place. Complete Review of Systems is as stated above, negative, or noncontributory. Physical Exam Physical Exam: General: A&Ox3. NAD. HENT: Normocephalic. Atraumatic. Eyes: PER. Conjunctiva pink, sclera clear. Neck: + JVD. No carotid bruits. Heart: Regular at 54 bpm. Grade II/ systolic murmur. No diastolic murmur. No rub. Lungs: Faint left basilar rales. Decreased at the left base. No wheeze. Abdomen: +BS. Soft. Nontender. No masses or organomegaly. Extremities: 1+ edema. No clubbing. No cyanosis. Limited neurological examination is without focal deficits. Pulses: radial=2/4, posterior tibial=1/4. Results & Data Vital Signs (Past 12 Hours) Vital Signs Temp Pulse Pulse Resp BP Pulse Ox O2 Del Method 07/17/23 09:39 Nasal Cannula 07/17/23 07:49 52 L 07/17/23 07:15 36.6 C 55 L 19 180/65 H 95 CPAP 07/17/23 03:15 36.7 C 53 L 18 167/77 H 95 CPAP 07/17/23 02:00 17 93 07/17/23 00:06 53 L 07/16/23 23:15 54 L 24 92 O2 Flow Rate 07/17/23 09:39 2 07/17/23 07:49 07/17/23 07:15 07/17/23 03:15 07/17/23 02:00 3 07/17/23 00:06 07/16/23 23:15 3 Laboratory Results Cardiac Enzymes 07/17/23 Range/Units 06:00 AST 17 (13-39) U/L Coagulation 07/17/23 Range/Units 06:00 PT 17.5 H (9.0-12.0) Seconds CBC 07/17/23 Range/Units 06:00 WBC 5.19 (4.8-10.8) K/ul RBC 3.24 L (4.20-5.40) M/uL Hgb 9.1 L (12.0-16.0) g/dl Hct 27.7 L (37.0-47.0) % Plt Count 286 (130-400) K/uL Neut # (Auto) 3.23 (1.40-6.50) K/uL Lymph # (Auto) 1.17 L (1.20-3.40) K/uL Sebastian # (Auto) 0.54 (0.11-0.59) K/uL Eos # (Auto) 0.21 (0.00-0.50) K/uL Baso # (Auto) 0.02 (0.00-0.20) K/uL Comprehensive Metabolic Panel 07/17/23 Range/Units 06:00 Sodium 137 (136-145) mmol/L Potassium 4.1 (3.5-5.1) mmol/L Chloride 101 (98-107) mmol/L Carbon Dioxide 28 (21-32) mmol/L BUN 20 (6-23) mg/dl Creatinine 0.94 (0.6-1.2) mg/dl Glucose 112 H (70-99(Fasting)) mg/dl Calcium 9.2 (8.6-10.3) mg/dl AST 17 (13-39) U/L ALT 20 (7-52) U/L Alkaline Phosphatase 79 (34-104) U/L Total Protein 6.8 (6.0-8.3) gm/dl Albumin 3.6 (3.4-5.0) gm/dl Intake and Output 07/16/23 07/17/23 07/17/23 22:59 06:59 14:59 Intake Total 600 / 1720 420 / 1720 Output Total 1000 / 3400 800 / 3400 Balance -400 / -1680 -380 / -1680 Intake: Oral 600 / 1520 420 / 1520 Output: Urine Amount (Catheter) 1000 / 3400 800 / 3400 Woody/Indwelling 1000 / 3400 800 / 3400 Other: Weight 94.8 kg
[2023-07-17] MEDS: amLODIPine BESYLATE 5 MG TAB PO SCH (12:11)
[2023-07-17] MEDS: FERROUS SULFATE 325 MG TAB PO SCH (16:16)
[2023-07-17] MEDS: WARFARIN SOD 5 MG TAB PO SCH (16:16)
[2023-07-17] MEDS: ATORVASTATIN 40 MG TAB PO SCH (20:04)
--- NOTE | 2023-07-17 23:15 | Hospitalist Progress Note ---
Date of Service July 17, 2023 Assessment & Plan (1) CHF (congestive heart failure): (2) Idiopathic cardiomyopathy: (3) Paroxysmal atrial fibrillation: (4) Hypertension: (5) Hyperlipidemia: (6) CVA (cerebral vascular accident): (7) Fall: (8) Type 2 diabetes mellitus: (9) Hypothyroidism: (10) SALVADOR (obstructive sleep apnea): (11) Obesity (BMI 30-39.9): Plan This is a 59-year-old female with PMHx of paroxysmal A-fib on Coumadin, chronic systolic CHF with preserved EF, HTN, HLD, history of CVA, history of colon cancer status post partial colon resection, obesity, hypothyroidism, DM type II, SALVADOR wearing CPAP at bedtime who presents to the hospital with 3 to 4 days of increasing shortness of breath. Acute on Chronic CHF: Idiopathic cardiomyopathy: Hypertension: Hyperlipidemia: Concern for acute systolic CHF exacerbation with increased shortness of breath, swelling of ankles, increased weight Follows with [facility] cardiology Troponin was negative at 8.4, BNP 303 EKG reviewed as above showing sinus bradycardia with 1st degree AV block, HR in 50s. Rate controlled on home medications Echo repeated and pending Lasix 40 mg IV given in the ER, continue 40 mg IV BID Dry weight of 208, 220 on admission. Daily weights, strict I/Os, fluid restriction with additional lasix dosing, purwick in place. Oxygen support as needed and wean as tolerated Monitor renal function/electrolytes Continue losartan, metoprolol succinate Cardiology consult- appreciate recs Paroxysmal atrial fibrillation: On amiodarone, metoprolol, warfarin for anticoagulation INR 5.4 on admission Coumadin dosing at home: 7.5 mg on Fridays and 5 mg all other days Held day of admission. HTN Continue home losartan and metoprolol HLD Continue ezetimibe, statin CVA (cerebral vascular accident): Cont atorvastatin and aspirin Fall fall with shortness of breath as per HPI, bruising present on R lower back and flank region, due to supratherapeutic INR. Fall precautions, PT/OT consults. DMII Last A1c: 7.1 on 04/26, no recheck at this time Hold metformin NovoLog sliding scale per protocol Monitor BGs Hypothyroidism Chronic stable continue levothyroxine SALVADOR (obstructive sleep apnea) Cont CPAP HS, does not typically require supplemental O2 at baseline during the day Urinary Incontinence/Freq Cont oxybutynin and gemtesa DVT PPx: Coumadin Diet: Heart healthy/diabetic diet, fluid restriction CODE: Full code Admission and Anticipated Discharge Date Admission Date: July 14, 2023 Subjective Pt states she had her questions answered by Cardiology. States that the swelling in her legs are going down. Uses oxygen at baseline, no increased oxygen requirement. SOB improved. Review of Systems Review of Systems: All systems reviewed & are unremarkable except as noted in Subjective Physical Exam Physical Exam: General: Alert, oriented. No acute distress Skin: bruises on L flank Psych: Appropriate mood and affect Neuro: No gross deficits HEENT: NC/AT Chest: Nontender to palpation. CV: RRR Resp: Breath sounds clear bilaterally, no increased effort of breathing. Abdomen: Soft, nontender, nondistended. Extremities: edema in lower extremities bilaterally. Results & Data Results & Data Vital Signs (Past 12 Hours) Vital Signs Temp Pulse Pulse Resp BP Pulse Ox O2 Del Method 07/17/23 11:15 36.5 C 48 L 20 178/72 H 93 Room Air 07/17/23 09:39 Nasal Cannula 07/17/23 07:49 52 L 07/17/23 07:15 36.6 C 55 L 19 180/65 H 95 CPAP 07/17/23 03:15 36.7 C 53 L 18 167/77 H 95 CPAP O2 Flow Rate 07/17/23 11:15 07/17/23 09:39 2 07/17/23 07:49 07/17/23 07:15 07/17/23 03:15
[2023-07-18 06:01] LABS: Basophils # (auto) 0.02 K/uL (0.00-0.20); Basophils % (auto) 0.4 %; Eosinophils % (auto) 3.9 %; Hematocrit (blood only) 31.5 % (37.0-47.0); Hemoglobin 9.9 g/dl (12.0-16.0); Immature Granulocytes # (auto) 0.02 K/uL (0.01-0.20); Immature Granulocytes % (auto) 0.4 %; Lymphocytes # (auto) 1.16 K/uL (1.20-3.40); Lymphocytes % (auto) 22.4 %; Mean Corpuscular Hemoglobin 27.7 pg (25.0-34.0); Mean Corpuscular Hgb Conc 31.4 g/dL (32.0-36.0); Mean Platelet Volume 9.8 fL (9.4-12.4); Monocytes # (auto) 0.55 K/uL (0.11-0.59); Monocytes % (auto) 10.6 %; Neutrophils # (auto) 3.22 K/uL (1.40-6.50); Neutrophils % (auto) 62.3 %; Platelet Count 331 K/uL (130-400); RDW Coefficient of Variation 14.7 % (11.5-14.5); Red Blood Count 3.58 M/uL (4.20-5.40); White Blood Count 5.17 K/ul (4.8-10.8)
[2023-07-18 06:18] LABS: Albumin Globulin Ratio 1.1 (0.9-2); Albumin Level 3.8 gm/dl (3.4-5.0); BUN Creatinine Ratio 20.7 (10-20); Bilirubin,Total 0.6 mg/dl (0.2-1.0); Calcium 9.5 mg/dl (8.6-10.3); Creatinine Clr Calc Pharmacy 51.9 ml/min; Est GFR (Non-African American) 48.3 ml/min; Globulin 3.4 gm/dl (2.5-4.0); Magnesium 1.9 mg/dl (1.7-2.4); Phosphorus 5.3 mg/dl (2.5-4.9); Potassium 4.2 mmol/L (3.5-5.1); Total Protein 7.2 gm/dl (6.0-8.3)
[2023-07-18 06:29] LABS: INR 1.6 (0.9-1.1); Prothrombin Time 16.8 Seconds (9.0-12.0)
[2023-07-18] MEDS: OXYBUTYNIN CHLORIDE XL 5 MG TABCR PO SCH (08:36)
[2023-07-18] MEDS: FUROSEMIDE 40 MG/4 ML VIAL IV SCH (08:36)
[2023-07-18] MEDS: MAGNESIUM CHLORIDE W/CALCIUM 64MG DELAYED REL TAB PO SCH ×2 (08:36→20:53)
[2023-07-18] MEDS: ASPIRIN 81 MG ECTAB PO SCH (08:37)
[2023-07-18] MEDS: DULoxetine HCL 60 MG CAP PO SCH (08:37)
[2023-07-18] MEDS: VIBEGRON 75 MG TAB PO SCH (08:37)
[2023-07-18] MEDS: MULTIVITAMIN TAB PO SCH (08:37)
[2023-07-18] MEDS: AMIODARONE 200 MG TAB PO SCH (08:38)
[2023-07-18] MEDS: LOSARTAN POTASSIUM 50 MG TAB PO SCH (08:38)
[2023-07-18] MEDS: SPIRONOLACTONE 25 MG TAB PO SCH (08:38)
[2023-07-18] MEDS: CYANOCOBALAMIN (B-12) 500 MCG TABLET PO SCH (08:38)
[2023-07-18] MEDS: METOPROLOL SUCC 25MG EXT REL TAB PO SCH (08:39)
[2023-07-18] MEDS: EZETIMIBE 10 MG TAB PO SCH (08:39)
[2023-07-18] MEDS: amLODIPine BESYLATE 5 MG TAB PO SCH (08:39)
[2023-07-18] MEDS: INSULIN ASPART PER UNIT CHARGE SC SCH ×4 (08:50→20:35)
[2023-07-18] MEDS: FERROUS SULFATE 325 MG TAB PO SCH (09:55)
--- NOTE | 2023-07-18 12:34 | Cardiology Progress Note ---
Date of Service July 18, 2023 Assessment & Plan (1) (HFpEF) heart failure with preserved ejection fraction: (2) Paroxysmal atrial fibrillation: (3) HTN, goal below 130/80: (4) Bradycardia: Plan 07/18/2023 Plan: Continue reduced dose amiodarone to 100 mg p.o. daily, discontinue metoprolol succinate given relative bradycardia. No further arrhythmia Chronic anticoagulation with warfarin ended Will change diuretic to oral dosing after a.m. IV furosemide today Begin furosemide 60 mg daily tomorrow Continue spironolactone Admission and Anticipated Discharge Date Admission Date: July 14, 2023 Subjective Patient was seen and examined, chart, medications, telemetry reviewed Has had an excellent diuresis. Weight down 5 kg No dyspnea cardiac complaints. Mild bradycardia, sinus mechanism on telemetry Review of Systems Review of Systems: All systems reviewed & are unremarkable except as noted in Subjective Physical Exam Physical Exam: General: A&Ox3. NAD. HENT: Normocephalic. Atraumatic. Eyes: PER. Conjunctiva pink, sclera clear. Neck: + JVD. No carotid bruits. Heart: Regular at 54 bpm. Grade II/ systolic murmur. No diastolic murmur. No rub. Lungs: Faint left basilar rales. Decreased at the left base. No wheeze. Abdomen: +BS. Soft. Nontender. No masses or organomegaly. Extremities: 1+ edema. No clubbing. No cyanosis. Limited neurological examination is without focal deficits. Pulses: radial=2/4, posterior tibial=1/4. Constitutional: WD/WN, vitals as above Respiratory: no labored breathing Auscultation: + diminished lung sounds (Mildly decreased breath sounds bilaterally at the bases); no rales Cardiovascular: Rate/Rhythm: regular rate and regular rhythm Heart Sounds: no murmur Extremities: + edema (1+ bilateral lower extremity edema) Gastrointestinal (Abdomen): normal bowel sounds, soft, nontender, no hepatosplenomegaly Neurologic: PERRL, EOMI, accommodation nl, no face palsy, no dysarthria Results & Data Vital Signs (Past 12 Hours) Vital Signs Temp Pulse Pulse Resp BP Pulse Ox O2 Del Method 07/18/23 11:33 Room Air 07/18/23 11:28 36.4 C L 48 L 19 125/56 L 99 Room Air 07/18/23 09:42 93 07/18/23 09:26 51 L 07/18/23 07:18 36.4 C L 55 L 20 187/69 H 94 CPAP 07/18/23 02:53 16 07/18/23 02:34 36.7 C 51 L 16 167/78 H 96 CPAP O2 Flow Rate 07/18/23 11:33 07/18/23 11:28 07/18/23 09:42 07/18/23 09:26 07/18/23 07:18 07/18/23 02:53 3 07/18/23 02:34
[2023-07-18] MEDS: WARFARIN SOD 5 MG TAB PO SCH (17:04)
--- NOTE | 2023-07-18 18:08 | Hospitalist Progress Note ---
Date of Service July 18, 2023 Assessment & Plan (1) CHF (congestive heart failure): (2) Idiopathic cardiomyopathy: (3) Paroxysmal atrial fibrillation: (4) Hypertension: (5) Hyperlipidemia: (6) CVA (cerebral vascular accident): (7) Fall: (8) Type 2 diabetes mellitus: (9) Hypothyroidism: (10) SALVADOR (obstructive sleep apnea): (11) Obesity (BMI 30-39.9): (12) Subtherapeutic anticoagulation: (13) Supratherapeutic INR: Plan This is a 59-year-old female with PMHx of paroxysmal A-fib on Coumadin, chronic systolic CHF with preserved EF, HTN, HLD, history of CVA, history of colon cancer status post partial colon resection, obesity, hypothyroidism, DM type II, SALVADOR wearing CPAP at bedtime who presents to the hospital with 3 to 4 days of increasing shortness of breath. Acute on Chronic CHF: Idiopathic cardiomyopathy: Hypertension: Hyperlipidemia: Concern for acute systolic CHF exacerbation with increased shortness of breath, swelling of ankles, increased weight Follows with [facility] cardiology Troponin was negative at 8.4, BNP 303 EKG reviewed as above showing sinus bradycardia with 1st degree AV block, HR in 50s. Rate controlled on home medications Echo repeated and pending Lasix 40 mg IV given in the ER, continue 40 mg IV BID Dry weight of 208, 220 on admission. Daily weights, strict I/Os, fluid restriction with additional lasix dosing, purwick in place. Oxygen support as needed and wean as tolerated Monitor renal function/electrolytes Continue losartan, metoprolol succinate Cardiology consult- appreciate recs -IV diuresis for 1 more day, then po in AM Paroxysmal atrial fibrillation Supratherapeutic INR with subsequent persistent decrease On amiodarone, metoprolol, warfarin for anticoagulation INR 5.4 on admission, warfarin was held Coumadin dosing at home: 7.5 mg on Fridays and 5 mg all other days INR currently decreased at 1.5, warfarin was resumed on 07/16 Started on Lovenox bridging due to persistent subtherapeutic INR until therapeutic once more. Consider additional doses of warfarin HTN Continue home losartan and metoprolol HLD Continue ezetimibe, statin CVA (cerebral vascular accident): Cont atorvastatin and aspirin Fall fall with shortness of breath as per HPI, bruising present on R lower back and flank region, due to supratherapeutic INR. Fall precautions, PT/OT consults. DMII Last A1c: 7.1 on 04/26, no recheck at this time Hold metformin NovoLog sliding scale per protocol Monitor BGs Hypothyroidism Chronic stable continue levothyroxine SALVADOR (obstructive sleep apnea) Cont CPAP HS, does not typically require supplemental O2 at baseline during the day Urinary Incontinence/Freq Cont oxybutynin and gemtesa DVT PPx: Coumadin Diet: Heart healthy/diabetic diet, fluid restriction CODE: Full code Dispo: per cardiology after appropriate diuresis Admission and Anticipated Discharge Date Admission Date: July 14, 2023 Subjective Pt seen with at bedside, watching the football game. Stated that she continues to note improvement in her symptoms such as swelling. Was seen by cardiology prior. Review of Systems Review of Systems: All systems reviewed & are unremarkable except as noted in Subjective Physical Exam Physical Exam: General: Alert, oriented. No acute distress Skin: bruises on L flank Psych: Appropriate mood and affect Neuro: No gross deficits HEENT: NC/AT Chest: Nontender to palpation. CV: RRR Resp: Breath sounds clear bilaterally, no increased effort of breathing. Abdomen: Soft, nontender, nondistended. Extremities: edema in lower extremities bilaterally. Results & Data Results & Data Vital Signs (Past 12 Hours) Vital Signs Temp Pulse Pulse Resp BP Pulse Ox O2 Del Method 07/18/23 16:00 36.9 C 48 L 18 150/72 H 98 Room Air 07/18/23 15:55 49 L 07/18/23 11:33 Room Air 07/18/23 11:28 36.4 C L 48 L 19 125/56 L 99 Room Air 07/18/23 09:42 93 07/18/23 09:26 51 L 07/18/23 07:18 36.4 C L 55 L 20 187/69 H 94 CPAP
[2023-07-18] MEDS: ATORVASTATIN 40 MG TAB PO SCH (20:53)
[2023-07-19 07:18] LABS: BUN Creatinine Ratio 26.3 (10-20); Calcium 9.4 mg/dl (8.6-10.3); Creatinine Clr Calc Pharmacy 72.4 ml/min; Est GFR (African American) 87.8 ml/min; Est GFR (Non-African American) 75.8 ml/min; Potassium 4.1 mmol/L (3.5-5.1)
[2023-07-19 07:24] LABS: INR 1.5 (0.9-1.1); Prothrombin Time 16.1 Seconds (9.0-12.0)
[2023-07-19] MEDS ORDERED: ENOXAPARIN 100 MG/1ML SYR SC SCH (09:00)
[2023-07-19] MEDS: INSULIN ASPART PER UNIT CHARGE SC SCH ×2 (09:56→13:05)
[2023-07-19] MEDS: EZETIMIBE 10 MG TAB PO SCH (10:00)
[2023-07-19] MEDS: amLODIPine BESYLATE 5 MG TAB PO SCH (10:01)
[2023-07-19] MEDS: VIBEGRON 75 MG TAB PO SCH (10:04)
[2023-07-19] MEDS: DULoxetine HCL 60 MG CAP PO SCH (10:05)
[2023-07-19] MEDS: OXYBUTYNIN CHLORIDE XL 5 MG TABCR PO SCH (10:05)
[2023-07-19] MEDS: FERROUS SULFATE 325 MG TAB PO SCH (10:06)
[2023-07-19] MEDS: ASPIRIN 81 MG ECTAB PO SCH (10:06)
[2023-07-19] MEDS: CYANOCOBALAMIN (B-12) 500 MCG TABLET PO SCH (10:07)
[2023-07-19] MEDS: AMIODARONE 200 MG TAB PO SCH (10:08)
[2023-07-19] MEDS: MULTIVITAMIN TAB PO SCH (10:08)
[2023-07-19] MEDS: LOSARTAN POTASSIUM 50 MG TAB PO SCH (10:09)
[2023-07-19] MEDS: MAGNESIUM CHLORIDE W/CALCIUM 64MG DELAYED REL TAB PO SCH (10:09)
[2023-07-19] MEDS: SPIRONOLACTONE 25 MG TAB PO SCH (10:10)
--- NOTE | 2023-07-19 10:21 | Hospitalist Progress Note ---
Date of Service July 19, 2023 Assessment & Plan (1) CHF (congestive heart failure): (2) Idiopathic cardiomyopathy: (3) Paroxysmal atrial fibrillation: (4) Hypertension: (5) Hyperlipidemia: (6) CVA (cerebral vascular accident): (7) Fall: (8) Type 2 diabetes mellitus: (9) Hypothyroidism: (10) SALVADOR (obstructive sleep apnea): (11) Obesity (BMI 30-39.9): (12) Subtherapeutic anticoagulation: (13) Supratherapeutic INR: Plan This is a 59-year-old female with PMHx of paroxysmal A-fib on Coumadin, chronic systolic CHF with preserved EF, HTN, HLD, history of CVA, history of colon cancer status post partial colon resection, obesity, hypothyroidism, DM type II, SALVADOR wearing CPAP at bedtime who presents to the hospital with 3 to 4 days of increasing shortness of breath. 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 Rate controlled on home medications Echo repeated-revealed mild concentric LVH, EF 60 to 65%, mild TR, mild elevation in pulmonary systolic pressure of 39 mmHg Dry weight of 208, 220 on admission. -After treatment she is now -10 L net during this hospitalization and her weight is down to 88 kg from 100 kg. Daily weights, strict I/Os, fluid restriction No evidence of hypoxia at this point. Continue losartan, metoprolol succinate stopped 2/2 relative bradycardia Cardiology following Paroxysmal atrial fibrillation Supratherapeutic INR with subsequent persistent decrease On reduced dose amiodarone, warfarin for anticoagulation INR 5.4 on admission, warfarin was held Coumadin dosing at home: 7.5 mg on Fridays and 5 mg all other days INR currently decreased at 1.5, warfarin was resumed on 07/16 Started on Lovenox bridging due to persistent subtherapeutic INR until therapeutic once more. Consider additional doses of warfarin HTN chronic, elevated to 186/73 prior to morning medications. She was started on spironolactone 25 mg p.o. daily and amlodipine 2.5 mg daily. She was continued on home losartan 100 mg daily and metoprolol. Home Lasix 40 mg was increased to 60 mg p.o. daily with first dose this morning. HLD Chronic, stable. Continue ezetimibe, statin per home regimen CVA (cerebral vascular accident): Cont atorvastatin and aspirin Fall fall with shortness of breath as per HPI, bruising present on R lower back and flank region, due to supratherapeutic INR. Fall precautions, PT/OT evaluated her and recommended returning home. DMII Last A1c: 7.1 on 04/26, no recheck at this time Hold metformin NovoLog sliding scale per protocol Monitor BGs Hypothyroidism Chronic stable continue levothyroxine SALVADOR (obstructive sleep apnea) Cont CPAP HS, does not typically require supplemental O2 at baseline during the day Urinary Incontinence/Freq Cont oxybutynin and gemtesa DVT PPx: Coumadin Diet: Heart healthy/diabetic diet, fluid restriction CODE: Full code Dispo- to home once BP is improved and no further medication adjustments are required. I spent a total [id number] coordinating, documenting, and providing care for this patient excluding time spent in the performance of separately billed services Vaishali Machuca DO [facility] Hospitalist Admission and Anticipated Discharge Date Admission Date: July 14, 2023 Subjective 67-year-old female with a history of chronic heart failure with preserved ejection fraction presented with 1 week of dyspnea and shortness of breath with exertion. She has paroxysmal atrial fibrillation and thought her fatigue prior to arrival may have something to do with that. She reports feeling back to baseline at this point. After diuresis her weight is down significantly. She is requesting to go home today. Blood pressure is 186/73 this morning. There is some ongoing adjustments with her medications. Tolerating p.o. Denies any chest pain. Physical Exam Physical Exam: CONSTITUTIONAL: WNWD, vitals as above, generally well-appearing, NAD EYES: ormal conjunctivae, no scleral icterus ENT: external ear and nose normal, MMM NECK: trachea midline RESPIRATORY: clear to auscultation bilaterally, no crackles, rales or wheezes, normal respiratory effort CARDIOVASCULAR: regular rate and rhythm, S1 and 2 heard without murmurs, gallops or rubs, no JVD, no peripheral edema CHEST: inspection of chest was normal GASTROINTESTINAL: soft, nontender, ND, no guarding MUSCULOSKELETAL: strength 5/5 throughout, head is normocephalic and atraumatic SKIN: warm and dry NEUROLOGIC: CN 2-12 grossly intact, no sensory deficit, normal cognition, normal speech, no tremor PSYCHIATRIC: alert cooperative and oriented to person, place and time. Euthy lilly mood, makes good eye contact, language grossly intact, recent and remote memory grossly intact. Results & Data Results & Data Vital Signs (Past 12 Hours) Vital Signs Temp Pulse Pulse Resp BP Pulse Ox O2 Del Method 07/19/23 08:14 36.5 C 53 L 19 186/73 H 98 CPAP 07/19/23 08:00 36.5 C 53 L 18 186/73 H 98 CPAP 07/19/23 07:33 49 L 07/19/23 03:00 36.5 C 50 L 16 172/73 H 99 CPAP 07/19/23 02:05 15 93 07/19/23 01:20 53 L 07/19/23 00:00 CPAP 07/18/23 22:57 36.6 C 57 L 16 151/82 H 96 Room Air 07/18/23 22:22 54 L 21 92 O2 Flow Rate 07/19/23 08:14 07/19/23 08:00 07/19/23 07:33 07/19/23 03:00 07/19/23 02:05 3 07/19/23 01:20 07/19/23 00:00 2 07/18/23 22:57 07/18/23 22:22 3 Laboratory Results [facility] 07/19/23 05:42 Sodium 137 Potassium 4.1 Chloride 102 Carbon Dioxide 27 BUN 21 Creatinine 0.80 D Glucose 109 H Calcium 9.4 Medications Administered Current Inpatient Medications Acetaminophen (Acetaminophen 325 Mg Tab) 650 mg PO Q4H PRN PRN Reason: Moderate Pain (Scale 4, 5, 6) Stop: 08/13/23 16:16 Albuterol (Albut/Ipratrop 3mg/0.5mg Neb 3 Ml Vial) 3 ml NEB Q4R PRN; Protocol PRN Reason: Shortness Of Breath Or Wheezing Stop: 08/13/23 18:59 Amiodarone HCl (Amiodarone 200 Mg Tab) 100 mg PO DAILY OG Stop: 08/17/23 08:59 Last Admin: 07/19/23 10:08 Dose: 100 mg Amlodipine Besylate (Amlodipine Besylate 5 Mg Tab) 2.5 mg PO QAM [facility] Stop: 08/16/23 11:29 Last Admin: 07/19/23 10:01 Dose: 2.5 mg Aspirin (Aspirin 81 Mg Ectab) 81 mg PO QAM [facility] Stop: 08/14/23 08:59 Last Admin: 07/19/23 10:06 Dose: 81 mg Atorvastatin Calcium (Atorvastatin 40 Mg Tab) 80 mg PO QPM [facility] Stop: 08/13/23 20:59 Last Admin: 07/18/23 20:53 Dose: 80 mg Cyanocobalamin (Cyanocobalamin (B-12) 500 Mcg Tablet) 1,000 mcg PO DAILY [facility] Stop: 08/14/23 08:59 Last Admin: 07/19/23 10:07 Dose: 1,000 mcg Dextrose (Dextrose 50% 50 Ml Syringe) 25 - 50 ml IV UD PRN; Protocol PRN Reason: Hypoglycemia Protocol Stop: 08/13/23 16:23 Duloxetine HCl (Duloxetine Hcl 60 Mg Cap) [facility] Stop: 08/14/23 08:59 Last Admin: 07/19/23 10:05 Dose: 120 mg Ezetimibe (Ezetimibe 10 Mg Tab) 10 mg PO QAM [facility] Stop: 08/14/23 08:59 Last Admin: 07/19/23 10:00 Dose: 10 mg Enoxaparin Sodium (Enoxaparin 100 Mg/1ml Syr) 90 mg SC Q12H [facility] Stop: 08/18/23 08:59 Ferrous Sulfate (Ferrous Sulfate 325 Mg Tab) 325 mg PO DAILY [facility] Stop: 08/14/23 08:59 Last Admin: 07/19/23 10:06 Dose: 325 mg Glucagon (Glucagon For Inj 1 Mg Vial) 1 mg SQ UD PRN; Protocol PRN Reason: Hypoglycemia Protocol Stop: 08/13/23 16:23 Glucose (Glucose 10 Tab/Tube) 4 - 8 tab PO UD PRN; Protocol PRN Reason: Hypoglycemia Treatment Stop: 08/13/23 16:23 Glucose (Glucose 40% Gel 15 Gm Tube) 15 - 30 gm PO UD PRN; Protocol PRN Reason: Hypoglycemia Protocol Stop: 08/13/23 16:23 Insulin Aspart (Insulin Aspart Per Unit Charge) 0 units SC ACHS [facility] Stop: 08/13/23 16:29 Last Admin: 07/19/23 09:56 Dose: 2 units Losartan Potassium (Losartan Potassium 50 Mg Tab) 100 mg PO QAM [facility] Stop: 08/14/23 08:59 Last Admin: 07/19/23 10:09 Dose: 100 mg Magnesium Chloride (Magnesium Chloride W/Calcium 64mg Delayed Rel Tab) 64 mg PO BID [facility] Stop: 08/13/23 20:59 Last Admin: 07/19/23 10:09 Dose: 64 mg Miscellaneous (Carbohydrates For Hypoglycemia ) 15 - 30 gm PO UD PRN PRN Reason: Hypoglycemia Protocol Stop: 08/13/23 16:23 Multivitamins (Multivitamin Tab) 1 tab PO DAILY [facility] Stop: 08/14/23 08:59 Last Admin: 07/19/23 10:08 Dose: 1 tab Ondansetron HCl (Ondansetron Inj 2 Mg/Ml 2 Ml Vial) 4 mg IV Q4H PRN PRN Reason: Nausea And Vomiting Stop: 08/13/23 16:16 Oxybutynin Chloride (Oxybutynin Chloride Xl 5 Mg Tabcr) 5 mg PO [facility] Stop: 08/14/23 08:59 Last Admin: 07/19/23 10:05 Dose: 5 mg Spironolactone (Spironolactone 25 Mg Tab) 25 mg PO [facility] Stop: 08/15/23 16:14 Last Admin: 07/19/23 10:10 Dose: 25 mg Vibegron (Vibegron 75 Mg Tab) [facility] [place] Stop: 08/14/23 08:59 Last Admin: 07/19/23 10:04 Dose: 75 mg Warfarin Sodium (Warfarin Sod 5 Mg Tab) 5 mg PO DAILY@1600 [facility] Stop: 08/15/23 15:59 Last Admin: 07/18/23 17:04 Dose: 5 mg
[2023-07-19] MEDS ORDERED: FUROSEMIDE 20 MG TAB PO SCH (10:45)
--- NOTE | 2023-07-19 12:11 | Discharge Summary ---
Discharge Summary Date of Service July 19, 2023 Admission HPI Per Admitting Provider This is a 59-year-old female with PMHx of paroxysmal A-fib on Coumadin, chronic systolic CHF with preserved EF, HTN, HLD, history of CVA, history of colon cancer status post partial colon resection, obesity with a BMI of 38 with significant weight loss within the past year, hypothyroidism, DM type II, SALVADOR wearing CPAP at bedtime who presents to the hospital with 3 to 4 days of increasing shortness of breath. Her O2 sats on arrival to the ER were 83%, she is currently on 4 L with O2 sats at 94%. She does not require any supplemental O2 at baseline during the day. Pt notes that she has been feeling increased shortness of breath since . She noticed this with exertional activities like going up the stairs. About 2 days ago she got winded while going up the stairs and sat down/fell onto the step she was at and hit her lower back. Reports there is a bruise there. She felt like she was in afib with sx experienced a year ago . At that time did not have any palpitations. Pt denies any recent viral symptoms. Pt weighs herself occasionally and thinks 208lbs is her dry weight in April since prior to her knee surgery. She admits to having some swelling around her ankles within past few days. Denies orthopnea. She has been eating more liberally due to the holidays. Pt denies fluid restriction, drinks water and ice tea, about 4-5, 8 oz glasses. She took her water pill this morning. Initial troponin is negative at 8.4, BNP is 303, she has an EKG showing sinus bradycardia with a heart rate in the 50s. Chest imaging shows pulmonary edema and bilateral small pleural effusions. Admit for CHF exacerbation Principal Dx & Hospital Course #1 = Principal Diagnosis (1) CHF (congestive heart failure): (2) Idiopathic cardiomyopathy: (3) Paroxysmal atrial fibrillation: (4) Hypertension: (5) Hyperlipidemia: (6) CVA (cerebral vascular accident): (7) Fall: (8) Type 2 diabetes mellitus: (9) Hypothyroidism: (10) SALVADOR (obstructive sleep apnea): (11) Obesity (BMI 30-39.9): (12) Subtherapeutic anticoagulation: (13) Supratherapeutic INR: Plan This is a 59-year-old female with PMHx of paroxysmal A-fib on Coumadin, chronic systolic CHF with preserved EF, HTN, HLD, history of CVA, history of colon cancer status post partial colon resection, obesity, hypothyroidism, DM type II, SALVADOR wearing CPAP at bedtime who presents to the hospital with 3 to 4 days of increasing shortness of breath. 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 Rate controlled on home medications Echo repeated-revealed mild concentric LVH, EF 60 to 65%, mild TR, mild elevation in pulmonary systolic pressure of 39 mmHg Dry weight of 208, 220 on admission. -After treatment she is now -10 L net during this hospitalization and her weight is down to 88 kg from 100 kg. Daily weights, strict I/Os, fluid restriction No evidence of hypoxia at this point. Continue losartan, metoprolol succinate stopped 2/2 relative bradycardia Cardiology following Paroxysmal atrial fibrillation Supratherapeutic INR with subsequent persistent decrease On reduced dose amiodarone, warfarin for anticoagulation INR 5.4 on admission, warfarin was held Coumadin dosing at home: 7.5 mg on Fridays and 5 mg all other days INR currently decreased at 1.5, warfarin was resumed on 07/16 Started on Lovenox bridging due to persistent subtherapeutic INR until therapeutic once more. Consider additional doses of warfarin HTN chronic, elevated to 186/73 prior to morning medications. She was started on spironolactone 25 mg p.o. daily and amlodipine 2.5 mg daily. She was continued on home losartan 100 mg daily and metoprolol. Home Lasix 40 mg was increased to 60 mg p.o. daily with first dose this morning. HLD Chronic, stable. Continue ezetimibe, statin per home regimen CVA (cerebral vascular accident): Cont atorvastatin and aspirin Fall fall with shortness of breath as per HPI, bruising present on R lower back and flank region, due to supratherapeutic INR. Fall precautions, PT/OT evaluated her and recommended returning home. DMII Last A1c: 7.1 on 04/26, no recheck at this time Hold metformin NovoLog sliding scale per protocol Monitor BGs Hypothyroidism Chronic stable continue levothyroxine SALVADOR (obstructive sleep apnea) Cont CPAP HS, does not typically require supplemental O2 at baseline during the day Urinary Incontinence/Freq Cont oxybutynin and gemtesa DVT PPx: Coumadin Diet: Heart healthy/diabetic diet, fluid restriction CODE: Full code Dispo- to home once BP is improved and no further medication adjustments are required. I spent a total [id number] coordinating, documenting, and providing care for this patient excluding time spent in the performance of separately billed services Vaishali Machuca DO [facility] Hospitalist Updated Medication List Medication Instructions Recorded Confirmed Type atorvastatin 80 mg tablet 80 mg PO QPM 03/07/19 07/14/23 History ezetimibe 10 mg tablet 10 mg PO QAM 03/07/19 07/14/23 History metformin 500 mg tablet 1,000 mg PO BIDM 03/07/19 07/14/23 History metoprolol succinate 25 mg 12.5 mg PO QAM 11/20/21 07/14/23 History tablet,extended release 24 hr aspirin 81 mg tablet,delayed 81 mg PO QAM 04/25/22 07/14/23 History release duloxetine 60 mg capsule,delayed 120 mg PO QAM 04/25/22 07/14/23 History release losartan 100 mg tablet 100 mg PO QAM 04/25/22 07/14/23 History mirabegron 50 mg tablet,extended 50 mg PO QAM 04/25/22 07/14/23 History release 24 hr (Myrbetriq) warfarin 5 mg tablet 5 mg PO UD 04/25/22 07/14/23 History amiodarone 200 mg tablet 200 mg PO BIDM #60 tabs 04/29/22 07/14/23 Rx furosemide 40 mg tablet 40 mg PO DAILY #30 tabs 04/29/22 07/14/23 Rx magnesium chloride 64 mg 64 mg PO BID #30 tabs 04/29/22 07/14/23 Rx (magnesium chloride) tablet,delayed release (Mag 64) ferrous sulfate 325 mg (65 mg 325 mg PO DAILY 07/14/23 07/14/23 History iron) tablet mecobalamin (vitamin B12) 1,000 1,000 mcg PO DAILY 07/14/23 07/14/23 History mcg chewable tablet (B12 Active) multivitamin 1 tab PO DAILY 07/14/23 07/14/23 History solifenacin 5 mg tablet 5 mg PO QAM 07/14/23 07/14/23 History amiodarone 100 mg tablet 100 mg PO DAILY #30 tabs 07/19/23 Rx amlodipine 5 mg tablet 5 mg PO DAILY #30 tabs 07/19/23 Rx furosemide 20 mg tablet 60 mg (3 x 20 mg) PO QAM #90 tabs 07/19/23 Rx spironolactone 25 mg tablet 25 mg PO QAM #30 tabs 07/19/23 Rx Hospital Stay Data Consultations 07/14/23 15:13 ED Decision to Admit Stat 07/15/23 10:02 Consult Cardiology Routine Pending Results Patient Have Any Pending Studies at Discharge: No Discharge Instructions Given to Patient (Per Discharging Provider) Please take all medications as instructed on discharge as below. 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 Please continue with Lasix 60 milligrams daily which is an increase from your typical 40 mg daily. Please follow-up with Coumadin clinic within the next week. Your INR was slightly subtherapeutic at time of discharge. Repeat INR is recommended after the weekend. As a result of your blood pressure being elevated you were started on spironolactone 25 mg daily and amlodipine 5 mg daily which you should continue in addition to your home losartan 100 mg daily. Metoprolol was stopped secondary to low heart rate and amiodarone was also decreased to 100 mg daily secondary to low heart rate. An outpatient Zio patch (event monitor) is recommended to evaluate your slow heart rate (bradycardia) further. Please follow-up with your primary care doctor within 1 week. As a result of the multiple medication changes you will need blood work within 1 week including a chemistry panel. It was a pleasure taking care of you! Please call if you have any questions or problems. You can reach a [facility] hospitalist on duty at [facility] 24 hours a day by calling [phone]. Take care of yourself. Vaishali Machuca, [place] Hospitalist
--- NOTE | 2023-07-19 12:22 | Cardiology Progress Note ---
Date of Service July 19, 2023 Assessment & Plan (1) (HFpEF) heart failure with preserved ejection fraction: (2) Paroxysmal atrial fibrillation: (3) HTN, goal below 130/80: (4) Bradycardia: Plan 07/18/2023 Plan: Continue reduced dose amiodarone to 100 mg p.o. daily, discontinue metoprolol succinate given relative bradycardia. No further arrhythmia Chronic anticoagulation with warfarin ended Will change diuretic to oral dosing after a.m. IV furosemide today Begin furosemide 60 mg daily tomorrow Continue spironolactone 07/19/2023 Plan as outlined above Paroxysmal atrial fibrillation with borderline tachybradycardia syndrome Presented with acute heart failure with preserved ejection fraction Responded promptly to diuretic therapies Amiodarone reduced, metoprolol discontinued Will contact office to arrange for Zio patch next week Admission and Anticipated Discharge Date Admission Date: July 14, 2023 Subjective Patient seen and examined, chart, medications, telemetry reviewed Sinus and sinus bradycardia overnight no atrial rhythm Fluid retention edema resolved No chest pains, shortness of breath, tachypalpitations Physical Exam Physical Exam: General: A&Ox3. NAD. HENT: Normocephalic. Atraumatic. Eyes: PER. Conjunctiva pink, sclera clear. Neck: + JVD. No carotid bruits. Heart: Regular at 54 bpm. Grade II/ systolic murmur. No diastolic murmur. No rub. Lungs: Faint left basilar rales. Decreased at the left base. No wheeze. Abdomen: +BS. Soft. Nontender. No masses or organomegaly. Extremities: 1+ edema. No clubbing. No cyanosis. Limited neurological examination is without focal deficits. Pulses: radial=2/4, posterior tibial=1/4. Constitutional: WD/WN, vitals as above Respiratory: no labored breathing Auscultation: + diminished lung sounds (Mildly decreased breath sounds bilaterally at the bases); no rales Cardiovascular: Rate/Rhythm: regular rate and regular rhythm Heart Sounds: no murmur Extremities: + edema (1+ bilateral lower extremity edema) Gastrointestinal (Abdomen): normal bowel sounds, soft, nontender, no hepatosplenomegaly Neurologic: PERRL, EOMI, accommodation nl, no face palsy, no dysarthria Results & Data Vital Signs (Past 12 Hours) Vital Signs Temp Pulse Pulse Resp BP Pulse Ox O2 Del Method 07/19/23 10:57 36.5 C 46 L 18 148/58 H 98 Room Air 07/19/23 08:14 36.5 C 53 L 19 186/73 H 98 CPAP 07/19/23 08:00 36.5 C 53 L 18 186/73 H 98 CPAP 07/19/23 07:33 49 L 07/19/23 07:30 Room Air 07/19/23 03:00 36.5 C 50 L 16 172/73 H 99 CPAP 07/19/23 02:05 15 93 07/19/23 01:20 53 L O2 Flow Rate 07/19/23 10:57 07/19/23 08:14 07/19/23 08:00 07/19/23 07:33 07/19/23 07:30 07/19/23 03:00 07/19/23 02:05 3 07/19/23 01:20
== END 2023-07-19 14:21 | disposition home or self-care (01) | DRG 291 ==
LOC: ED 13:06 → SUATTDRO 15:40 → EDINP 15:40 → 4W 16:18